=== PATIENT | male | born 1945 | race Caucasian/White ===

== ENCOUNTER → 2016-04-21 | Outpatient (REF) | payer OTHER ==
[~2016-04-21] MED LIST: /ESOM40CA; /GLIM4TA; ACET65TA OR; ALLO300T PO; ALPR0.5T3 PO; AMLO10TA PO; ASPI1TAB PO; ASPI325T; ASPI325T OR; ASPI81TA83 PO; ATEN50TA2; ATEN50TA2 OR; ATOR1TAB19 PO; ATOR40TA PO; CARV12.5 PO; CARV6.25 PO; CEPH250S OR; COLA100C2; COLA100C2 PO; COLCRYS PO; CYCL10TA PO; DIOV160T5 OR; DIOV320T PO; DIOV80TA; DIOV80TA PO; DOCU100C PO; FLEXERIL; FLEXERIL PO; GLIM1TAB PO; GLIM4TAB PO; HYDR-4266 PO; IMDU30TA PO; INSULANT SC; K-TA10TA PO; LANTINJ4 SC; LANTUS INSULIN SC; LASI40TA; LASI40TA PO; LASI80TA PO; LEVO75TA2 PO; LEVO75TA34 PO; LIDO5DIS TOP; LIDO5DIS36 TD; LIDODERM PATCH; LIPI20TA PO; MINO10TAB PO; MINO25TA PO; MINOXIDIL; MINOXIDIL PO; MULTIVIT PO; MYLASUS2 PO; NITR0.4S SL; NITR4TASL SL; NOVOINJ3 SC; NOVOLOG INSULIN SC; OMEP20CA3 PO; OMEP20TA7 OR; PERC5TAB8 OR; PLAV75TA2 PO; PLAV75TA38 PO; POTA10CA2; PRIL20CA PO; SIMV20TA2 OR; SYNT75TA; THERGRAN; TORS20TA2 PO; TUMS500C OR; TYLE325T5 PO; VITMTA PO; XALA0.002 OU; XALATAN OU; XANA0.5T; XANA0.5T PO; ZARO2.5T PO; ZAROXOLYN; ZOCO20TA; ZYLO300T4 PO
[2016-04-22 14:04] LABS: FREE T4 0.96 NG/DL (0.76-1.46)
== END ==
LOC: M LAB REF 12:48
PROVIDERS: ATTEND Internal Medicine Nephrology
DX: E03.9 Hypothyroidism, unspecified (principal)

== ENCOUNTER 2016-06-23 17:21 | Emergency (ER) | payer OTHER ==
[~2016-06-23] VITALS: Ht 185.4 cm; Wt 90.7 kg
[~2016-06-23 17:21] MED LIST changes: +MYLASUS16 PO; -MYLASUS2 PO
[2016-06-23] MEDS ORDERED: CINA30TA PO (17:40)
[2016-06-23] MEDS ORDERED: DRIS50002 PO (17:40)
[2016-06-23] MEDS ORDERED: ALLO10TA PO (17:40)
[2016-06-23] MEDS ORDERED: ISOS10TAB PO (17:40)
[2016-06-23] MEDS ORDERED: POTA10CA PO (17:40)
[2016-06-23] MEDS ORDERED: CLINDAMYCIN 150 MG CAP PO ONE (20:15)
[2016-06-23] MEDS ORDERED: traMADol 50 MG TAB (BULK 4 TAB ED) PO ONE (20:15)
[2016-06-23] MEDS ORDERED: predniSONE 20 MG TAB PO ONE (20:15)
[2016-06-23] MEDS ORDERED: CLEO150C PO (20:18)
[2016-06-23] MEDS ORDERED: PRED20TA PO (20:19)
[2016-06-23] MEDS ORDERED: NAPR250T45 PO (20:19)
--- NOTE | 2016-06-23 21:30 | REPUSA ---
Clinical history: Pain, swelling. Findings: The left common femoral, superficial femoral, popliteal, and other deep venous structures c ompress normally and demonstrate normal color Doppler flow. Normal venous waveforms with augmentation are seen. Imaging of the palpable abnormality in the anterior soft tissues does not demonstrate any gross abnormality. Impression: No evidence of deep vein thrombosis in the left femoral popliteal venous system.
[2016-06-23 21:36] VITALS: BP 136/71
== END 2016-06-23 21:39 | disposition home or self-care (01) ==
LOC: M ED 19:39
DX: I80.02 Phlebitis and thrombophlebitis of superficial vessels of left lower extremity (principal); L03.116 Cellulitis of left lower limb

== ENCOUNTER 2016-06-30 10:50 | Inpatient (IN) | payer OTHER ==
[~2016-06-30] VITALS: Ht 182.9 cm; Wt 93.0 kg
[2016-06-30] MEDS: CINACALCET 30 MG TAB (SENSIPAR) PO SCH (09:00)
[~2016-06-30 10:50] MED LIST changes: +ALLO10TA PO; +CINA30TA PO; +CLEO150C PO; +DRIS50002 PO; +ISOS10TAB PO; +NAPR250T45 PO; +POTA10CA PO; +PRED20TA PO
--- NOTE | 2016-06-30 11:37 | REP ---
CT HEAD WITHOUT CONTRAST: HISTORY: Infarction. COMPARISON: 08/01/2013. An area of decreased attentuation is present in the right thalamus. This represents an old lacunar infarction. Areas of decreased attentuation are present in the periventricular and subcortical white matter. This represents small vessel ischemic disease. There is no intraparenchymal hemorrhage, mass, or midline shift. The ventricular system and cortical sulci as well as subarachnoid space and posterior fossa are dilated consistent with mild volume loss. There is no extracerebral collection. The visualized sinuses are clear. IMPRESSION: 1. Old right thalamic lacunar infarction. 2. Small vessel ischemic disease. 3. Mild volume loss. Signed by Markel Waller MD 06/30/2016 11:43 A
--- NOTE | 2016-06-30 11:41 | REP ---
Chest one-view HISTORY: Infarction Comparison: 04/27/2014 The lungs are clear. The heart is upper limits of normal in size. The pulmonary vasculature is normal in appearance. Impression: No acute disease. Signed by Markel Waller MD 06/30/2016 11:32 A
[2016-06-30 11:49] LABS: BASO % 0.6 % (0.0-1.0); EOS # 0.3 K/mm3 (0.0-0.50); LARGE UNSTAINED CELL # 0.1 K/mm3 (0.0-0.4); LARGE UNSTAINED CELL % 1.4 % (0.0-4.0); LYMPH # 2.1 K/mm3 (1.5-4.5); MEAN CORPUSCULAR HGB CONC 33.4 g/dl (32.0-36.5); MEAN CORPUSCULAR VOLUME 89.6 fl (80.0-96.0); MONO # 0.5 K/mm3 (0.0-0.8); MONO % 5.9 % (0.0-5.0); NEUTROPHILS # 5.2 K/mm3 (1.8-7.7); NEUTROPHILS % 64.1 % (36.0-66.0); PLATELET COUNT, AUTOMATED 163 k/mm3 (150-450); RED CELL DISTRIBUTION WIDTH 15.4 % (11.5-14.5); WHITE BLOOD COUNT 8.2 K/mm3 (4.0-10.0)
[2016-06-30 12:01] LABS: INR 1.01
[2016-06-30 12:13] LABS: ERYTHROCYTE SEDIMENTATION RATE 19 mm/hr (0-20)
[2016-06-30 12:18] LABS: ANION GAP 10 MEQ/L (8-16); BLOOD UREA NITROGEN 77 MG/DL (7-18); CALCIUM LEVEL 10.1 MG/DL (8.8-10.2); CARBON DIOXIDE LEVEL 25 MEQ/L (21-32); CHLORIDE LEVEL 106 MEQ/L (98-107); GLOMERULAR FILTRATION RATE 37.2 (>42); GLUCOSE, FASTING 109 MG/DL (83-110); POTASSIUM SERUM 3.7 MEQ/L (3.5-5.1); SODIUM LEVEL 141 MEQ/L (136-145)
[2016-06-30] MEDS ORDERED: ACETAMINOPHEN TAB 650MG DOSE (2X325MG) PO ONE (13:00)
[2016-06-30] MEDS ORDERED: CLIN1CAP5 PO (14:13)
[2016-06-30] MEDS ORDERED: ZYLO300T4 PO (14:13)
[2016-06-30] MEDS ORDERED: CARV6.25 PO (14:36)
[2016-06-30] MEDS ORDERED: HYDR25TAB PO (14:37)
[2016-06-30] MEDS ORDERED: GLUCAGON FOR INJ 1 MG VIAL (J1610) SC PRN (15:15)
[2016-06-30] MEDS ORDERED: GLUCOSE 4 GM CHEW TABLET PO PRN (15:15)
[2016-06-30] MEDS ORDERED: DEXTROSE 50% 50 ML SYRINGE IV PRN (15:15)
--- NOTE | 2016-06-30 15:16 | REP ---
MRI BRAIN WITHOUT CONTRAST: HISTORY: Left side weakness. COMPARISON: CT 06/30/2016 An area of increased signal intensity on T2-weighted images is present in the right thalamus. This represents an old lacunar infarction. Areas of increased signal intensity on T2-weighted images are present in the periventricular and subcortical white matter. This represents small vessel ischemic disease. There is no intraparenchymal hemorrhage, acute infarct, mass or midline shift.The ventricular system and cortical sulci as well as subarachnoid space in the posterior fossa are dilated consistent with mild volume loss. There is no extracerebral collection. The sinuses are clear. IMPRESSION: 1. Old right thalamic lacunar infarction. 2. Small vessel ischemic disease. 3. Mild volume loss. Signed by Markel Waller MD 06/30/2016 03:17 P
[2016-06-30] MEDS ORDERED: hydrOXYzine 10 MG TAB PO ONE (15:30)
--- NOTE | 2016-06-30 15:58 | REP ---
MRA BRAIN WITHOUT CONTRAST: HISTORY: Left weakness. 3D [id number] MR angiography was performed at the level of the [place]. There is no aneurysm or arteriovenous malformation. Mild atherosclerotic disease involves the cavernous and supraclinoid internal arteries, middle cerebral artery trifurcations , proximal basilar artery and left posterior cerebral artery. The major intracranial vessels are patent. The left vertebral artery is dominant. IMPRESSION: 1. There is no aneurysm or arteriovenous malformation. 2. Atherosclerotic disease as described above. Signed by Markel Waller MD 06/30/2016 04:07 P
[2016-06-30] MEDS ORDERED: NORCO, ANEXSIA 5/325MG TABLET (HYDROcodone/ACETAMINOPHEN) As Ordered ONE (16:35)
[2016-06-30 17:03] VITALS: BP 133/98
[2016-06-30] MEDS: HumaLOG INSULIN (NovoLOG) PER UNIT SC SCH ×2 (17:49→21:00)
--- NOTE | 2016-06-30 20:17 | ECGEPIP ---
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
[2016-06-30 20:30] VITALS: BP 165/77
--- NOTE | 2016-06-30 20:46 | HPE ---
DATE OF ADMISSION: 06/30/2016 PRIMARY CARE PROVIDER: Sebastian Gaitan CHIEF COMPLAINT: Dizziness. HISTORY OF PRESENT ILLNESS: Mr. Willson is a 71-year-old male with a past medical history of atrial flutter, status post radiofrequency ablation, type 2 diabetes, myocardial infarction status post coronary artery bypass graft (CABG), who presented to the emergency department today with complaint of an episode of near syncope at his doctor's office. Per patient, he was recently diagnosed with cellulitis of his left lower extremity and was treated with clindamycin, steroids. During his routine followup visit today, after walking back from the bathroom in their office, he started experiencing lightheadedness, dizziness , and essentially "flopped down in the chair." At that time, an EKG was done and showed the patient to be in atrial fibrillation with rate of 111. Fingerstick glucose was checked and was reportedly normal. The patient himself states that since his infection to his left leg, he has not been feeling well in terms of energy, "feels like there is an infection inside of me." No nausea, vomiting, diarrhea, constipation, chest pain, shortness of breath. Had one episode of palpitations yesterday when he got out of bed, episode lasted for 15 minutes. He immediately sat down and this resolved on its own. He continued to go on about his day until the event that led him to the hospital today. No similar episodes in the past. He is not aware of any abnormal rhythm problem with his heart prior to this episode. No syncopal episodes. PAST MEDICAL HISTORY: 1. Remote history of atrial flutter, status post radiofrequency ablation. 2. Chronic kidney disease stage 3B. 3. Diastolic heart failure. 4. Systemic hypertension. 5. Coronary artery disease. 6. Old myocardial infarction. 7. Obesity. 8. First degree AV block. 9. Abnormal EKG. 10. Type 2 diabetes. 11. Gout. 12. Hypercholesterolemia. 13. Left kidney cancer. 14. Osteoarthritis. 15. Cervical spinal stenosis with intermittent musculoskeletal pain. PAST SURGICAL HISTORY: 1. Coronary artery bypass graft (CABG) in 2006. 2. Left nephrectomy. 3. Cholecystectomy. 4. Tonsillectomy. 5. Appendectomy. SOCIAL HISTORY: The patient is a nonsmoker. No alcohol. No drug use. Currently lives at home. 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 No history of asbestos or tuberculosis that he is aware of. No pets. ALLERGIES: CONTRAST MEDIA, red leg. PENICILLIN, itchiness and rash. ERYTHROMYCIN, SULFA and TETRACYCLINE, reaction unknown. HOME MEDICATIONS: - allopurinol 300 mg by mouth daily - Mylanta 20 mL as needed for heartburn - Norvasc 10 mg daily - aspirin 81 mg daily - Lipitor 40 mg at night - Coreg 6.25 mg by mouth twice a day - Sensipar 30 mg twice a week - Clindamycin 150 mg four times a day - Plavix 75 mg by mouth daily - Colace 100 mg by mouth twice a day as needed - Lasix 80 mg by mouth twice a day - glimepiride 4 mg by mouth twice a day - hydrochlorothiazide 12.5 mg daily - NovoLog insulin sliding scale - Lantus 50 units subcutaneous at night - isosorbide mononitrate 10 mg by mouth twice a day - latanoprost 0.005% both eyes at night - Synthroid 75 mcg by mouth daily - Lidoderm patch 5% daily - multivitamin - nitroglycerin 0.4 mg as needed - omeprazole 20 mg by mouth daily - potassium chloride 20 mEq by mouth twice a day - valsartan 320 mg at night - vitamin D 50 units at night FAMILY HISTORY: Father from stomach cancer. Mother with history of thyroid disease and in her 90s of old age. REVIEW OF SYSTEMS: CONSTITUTIONAL: Positive for weakness, lightheadedness, as mentioned above. HEENT: Denies headaches, difficulty with speech and swallow. No epistaxis. EYES: No blurry vision or diplopia. CARDIOVASCULAR: Denies chest pain, paroxysmal nocturnal dyspnea, pillow orthopnea, lower extremity edema. The rest as above. PULMONARY: Denies shortness of breath, productive cough, hemoptysis. GASTROINTESTINAL: Denies hematochezia, melena, or hematemesis, nausea, vomiting, diarrhea, constipation. GENITOURINARY: No dysuria, frequency or hematuria. History of left renal cancer status post surgery. MUSCULOSKELETAL: No bone, muscle, joint pain. NEUROLOGICAL: No paralysis, paresthesia, headaches. ENDOCRINE: Positive for hypothyroidism and diabetes. LYMPHATICS: No lumps, bumps, or swelling anywhere in neck, axilla, or groin. HEMATOLOGY: No abnormal bleeding or bruising. PHYSICAL EXAMINATION: VITALS: Blood pressure 133/98, heart rate 73, temperature 96.7, respiration rate 20, pulse oximetry 99% on room air. GENERAL: Patient is lying in bed comfortable in no acute distress. Alert, awake, oriented times three. Pleasant, cooperative. Son at the bedside. HEENT: Normocephalic, atraumatic. Moist oral mucosa. Upper denture in place. Lower portion with multiple missing teeth. NECK: Supple, trachea midline, no palpable lymphadenopathy, no neck vein distention. CHEST: Symmetric chest rise, no accessory muscle use. Breath sounds clear to auscultation bilaterally. HEART: Irregular but not tachycardic. Rate variable. S1, S2 present. ABDOMEN: Soft, nontender, nondistended, bowel sounds present, no guarding, no rebound. EXTREMITY: Pedal pulses present bilaterally, no pedal edema. INTEGUMENTARY: Area of erythema is not visible on examination. PSYCHIATRIC: Cooperative. LABORATORY DATA: WBC 8.2, hemoglobin 12.3, hematocrit 36.7, platelets 163. Sodium 141, potassium 3.7, chloride 106, carbon dioxide 25, BUN 77, creatinine 1.9, glucose 106, troponin first set is negative. CT of the head showed old right thalamic lacunar infarct with small vessel ischemic changes, mild volume loss. Chest x-ray showed no acute disease. MRI of the brain showed no aneurysm or AV malformation. MRA of the brain with old right thalamic lacunar infarct. EKG showed atrial fibrillation with ventricular rate of 89. QTC 428. IMPRESSION/PLAN: Mr. Willson is a 71-year-old male with history of atrial flutter, status post radiofrequency ablation many years ago, who presented with dizziness. 1. New onset atrial fibrillation. Because of his high [id number] score, the patient will benefit from anticoagulation. We will start him on Eliquis and continue Coreg 6.25 mg by mouth twice a day. The case was briefly discussed with his outpatient automatic chief. 2. Dizziness with left sided weakness. So far imaging is unrevealing for acute changes. The patient will be monitored closely in the progressive care unit (PCU). Continue antihypertensive regimen with exception of hydrochlorothiazide to allow more room for adjusting of his Coreg. We will check orthostatic blood pressure. 3. Chest pain. Pain was not reproducible on physical examination. EKG was unrevealing. Continue to monitor. Trend cardiac markers. 4. Left lower extremity cellulitis. Examination showed resolved cellulitis. We will repeat blood culture. 5. History of coronary artery disease, status post stents and coronary artery bypass graft (CABG). Continue aspirin, Plavix, Lipitor, and Coreg. 6. Gastroesophageal reflux disease (GERD). Continue 20 mg of omeprazole. 7. Hypothyroidism. Continue levothyroxine. 8. Deep vein thrombosis (DVT) prophylaxis. Sequential compression device (SCD) and thromboembolic compression stockings (TEDS). Will be on Eliquis for atrial fibrillation. The patient will require prior authorization for obtaining Eliquis. Have requested PFS assistance. DISPOSITION: Due to patient's condition, we expect his stay to be greater than 2 midnights. My preceptor for this patient encounter was Dr. Linares. The preceptor was physically present in the building during the encounter and was fully available. As needed, all aspects of the patient interview, examination, medical decision making process, and medical care plan development were reviewed and approved by the preceptor. The preceptor is aware and concurs with the plan as stated in the body of this note and will attest to such by his/her cosignature. KAIDEN
[2016-06-30 21:30] VITALS: BP_SYST 148; BP_SYST 155; BP_SYST 165; BP_DIAS 68; BP_DIAS 77; BP_DIAS 86
[2016-06-30] MEDS: APIXABAN 5 MG TAB (ELIQUIS) PO SCH (22:23)
[2016-06-30] MEDS: FUROSEMIDE 80 MG TAB PO SCH (22:24)
[2016-06-30] MEDS: CEFDINIR 300 MG CAP (OMNICEF) PO SCH (22:24)
[2016-06-30] MEDS: VALSARTAN 80 MG TAB (DIOVAN) PO SCH (22:24)
[2016-06-30] MEDS: ATORVASTATIN 20 MG TAB PO SCH (22:24)
[2016-06-30] MEDS: CARVedilol 6.25 MG TAB PO SCH (22:25)
[2016-06-30] MEDS: ISOSORBIDE MONONITRATE 10MG TABLET PO SCH (23:25)
[2016-06-30] MEDS: LATANOPROST 0.005% OPHTH SOLN 2.5 ML OU SCH (23:25)
[2016-07-01] VITALS: BP 131/69
[2016-07-01] MEDS: ACETAMINOPHEN TAB 650MG DOSE (2X325MG) PO PRN ×3 (00:09→20:24)
[2016-07-01 04:00] VITALS: BP 119/58
[2016-07-01 04:54] LABS: MEAN CORPUSCULAR HEMOGLOBIN 28.9 pg (27.0-33.0); MEAN CORPUSCULAR HGB CONC 32.4 g/dl (32.0-36.5); MEAN CORPUSCULAR VOLUME 89.4 fl (80.0-96.0); RED CELL DISTRIBUTION WIDTH 15.4 % (11.5-14.5); WHITE BLOOD COUNT 6.5 K/mm3 (4.0-10.0)
[2016-07-01] MEDS: LEVOTHYROXINE 0.075 MG TAB (75 MCG) PO SCH (05:09)
[2016-07-01 05:18] LABS: ALBUMIN 3.9 GM/DL (3.2-5.2); ANION GAP 8 MEQ/L (8-16); BLOOD UREA NITROGEN 75 MG/DL (7-18); CALCIUM LEVEL 9.5 MG/DL (8.8-10.2); CARBON DIOXIDE LEVEL 29 MEQ/L (21-32); CHLORIDE LEVEL 105 MEQ/L (98-107); CHOLESTEROL LEVEL 126 MG/DL (<200); CREATININE FOR GFR 2.13 MG/DL (0.70-1.30); GLOMERULAR FILTRATION RATE 32.6 (>42); GLUCOSE, FASTING 105 MG/DL (83-110); PHOSPHORUS LEVEL 3.8 MG/DL (2.5-4.9); POTASSIUM SERUM 4.2 MEQ/L (3.5-5.1); SODIUM LEVEL 142 MEQ/L (136-145); TRIGLYCERIDES LEVEL 160 MG/DL (<150)
[2016-07-01 08:00] VITALS: BP 156/68
[2016-07-01] MEDS: HumaLOG INSULIN (NovoLOG) PER UNIT SC SCH ×4 (08:22→20:35)
[2016-07-01] MEDS: APIXABAN 5 MG TAB (ELIQUIS) PO SCH (08:23)
[2016-07-01] MEDS: OMEPRAZOLE 20 MG CAP PO SCH (08:23)
[2016-07-01] MEDS: ALLOPURINOL 300 MG TAB PO SCH (08:23)
[2016-07-01] MEDS: CEFDINIR 300 MG CAP (OMNICEF) PO SCH ×2 (08:23→20:20)
[2016-07-01] MEDS: FUROSEMIDE 80 MG TAB PO SCH ×2 (08:23→16:06)
[2016-07-01] MEDS: ASPIRIN 81 MG ENTERIC TAB PO SCH (08:23)
[2016-07-01] MEDS: ISOSORBIDE MONONITRATE 10MG TABLET PO SCH ×2 (08:23→16:06)
[2016-07-01] MEDS: amLODIPine 10 MG TAB PO SCH (08:24)
[2016-07-01] MEDS: CARVedilol 6.25 MG TAB PO SCH ×2 (08:24→20:21)
[2016-07-01] MEDS ORDERED: CLOPIDOGREL 75 MG TAB PO SCH (09:00)
--- NOTE | 2016-07-01 09:08 | ECGEPIP ---
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
[2016-07-01 11:00] VITALS: BP_SYST 152; BP_SYST 174; BP_SYST 176; BP_DIAS 62; BP_DIAS 72; BP_DIAS 79
[2016-07-01] MEDS ORDERED: ELIQ5TAB PO (11:59)
--- NOTE | 2016-07-01 13:09 | IPNPDOC ---
Subjective Date Seen The patient was seen on 07/01/16. Subjective Chief Complaint/HPI The patient is a 71-year-old male admitted with a reason for visit of TIA. Events since last encounter complains of dizziness on standing up and walking, still feels weak , confusion has resolved, continues to be in sinus rhythm., no chest pain or shortness of breath , no abdominal pain or nausea or diarrhea, was having nausea and diarrhea while he was taking the clindamycin for nodule on the leg . THose have resolved after stopping the antibiotic. But says has not been eating at all forthe few days that he was taking the antibiotics. Objective Physical Examination General Exam: Positive: Alert, Cooperative, No Acute Distress Eye Exam: Positive: Conjunctiva & lids normal, EOMI, PERRLA, Negative: Sclera icteric ENT Exam: Positive: Atraumatic, Mucous membr. moist/pink, Pharynx Normal Neck Exam: Positive: Supple, Negative: JVD, thyromegaly Chest Exam: Positive: Clear to auscultation, Normal air movement Heart Exam: Positive: Normal S1, Normal S2, Rate Normal, Regular Rhythm, Negative: Murmurs, Rubs Telemetry: Positive: No significant arrhythmia Abdomen Exam: Positive: Normal bowel sounds, Soft, Negative: Hepatospenomegaly, Tenderness Extremity Exam: Positive: Normal pulses, Negative: Clubbing, Cyanosis, Edema Skin Exam: Positive: Lesion (left leg reddish tender nodular swelling), Nl turgor and temperature, Negative: Breakdown Assessment /Plan Problems (1) Neurocardiogenic pre-syncope Status: Acute Problem Text: possibly related to paroxysmal a fib , orthostatic hypotension and mild dehydration due to diarrhea at home , poor oral intake while he was on the clinadycin and prednisone. orthostatics BPs are positive. (2) Paroxysmal a-fib Status: Resolved Problem Text: started the patient on anticoagulation. (3) TIA (transient ischemic attack) Status: Resolved Problem Text: questionable TIA looks more like presyncope due to orthostatic hypotension and paroxysmal a fib. (4) Cellulitis of left lower extremity Status: Acute Response to Treatment: Stable Problem Text: took 6 days of clindamycin without any change does not look inflamed at this point. Looks like a subcutaneous hematoma which is organized (5) Gout Status: Chronic (6) CAD (coronary artery disease) Status: Chronic (7) Hyperlipidemia Status: Chronic (8) Hypothyroidism Status: Chronic (9) Osteoarthritis Status: Chronic (10) GERD (gastroesophageal reflux disease) Status: Chronic (11) Chronic kidney disease (CKD), stage III (moderate) Status: Chronic Response to Treatment: Stable (12) S/p nephrectomy Status: Chronic (13) Adrenal nodule Status: Chronic (14) Cervical spinal stenosis Status: Chronic (15) Hypertension Status: Chronic (16) Diabetes Status: Chronic Plan/VTE VTE Prophylaxis Ordered?: Yes VS, I&O, 24H, Fishbone Vital Signs/I&O Vital Signs Date Time Temp Pulse Resp B/P Pulse Ox O2 Delivery O2 Flow Rate FiO2 07/01/16 11:00 60 176/79 69 174/72 73 152/62 07/01/16 11:00 96.0 18 99 Room Air I&O- Last 24 Hours up to 6 AM 07/01/16 06:00 Intake Total 920 ml Output Total 2075 ml Balance -1155 ml Laboratory Data 24H LABS Laboratory Tests 2 06/30/16 13:28: Bedside Glucose (Misc Panel) 77L 06/30/16 17:19: Creatine Kinase MB 1.3, Creatine Kinase MB Relative Index 1.30, Total Creatine Kinase 100, Troponin I < 0.02 06/30/16 17:39: Bedside Glucose (Misc Panel) 136H 06/30/16 22:07: Bedside Glucose (Misc Panel) 131H 07/01/16 04:45: Albumin 3.9, Blood Urea Nitrogen 75H, Creatinine 2.13H, Sodium Level 142, Potassium Level 4.2, Chloride Level 105, Carbon Dioxide Level 29, Anion Gap 8, Calcium Level 9.5, Cholesterol Level 126, Cholesterol/HDL Ratio 3.705, Creatine Kinase MB 1.1, Creatine Kinase MB Relative Index 1.26, Estimated Mean Plasma Glucose 163H, Glomerular Filtration Rate 32.6L, HDL Cholesterol 34L, Hemoglobin A1c 7.3H, LDL Cholesterol 60.0, Non-HDL Cholesterol (LDL + VLDL) 92, Phosphorus Level 3.8, Total Creatine Kinase 87, Triglycerides Level 160H, Troponin I < 0.02 CBC/BMP Laboratory Tests 07/01/16 04:45 Anion Gap 8, Red Blood Count 4.30, Mean Corpuscular Volume 89.4, Mean Corpuscular Hemoglobin 28.9, Mean Corpuscular Hemoglobin Concent 32.4, Red Cell Distribution Width 15.4 H Microbiology Microbiology 06/30/16 Blood Culture, Received Pending 06/30/16 Blood Culture, Received Pending LINDY MA MD Jul 01, 2016 13:09
[2016-07-01] MEDS: WARFARIN SOD 5 MG TAB PO SCH (16:06)
--- NOTE | 2016-07-01 17:00 | ECHO ---
DATE OF PROCEDURE: 07/01/2016 REFERRING PHYSICIAN: Dr. Caron Rodrigues INDICATION: Abnormal ECG, paroxysmal atrial fibrillation. HEIGHT: 183 cm WEIGHT: 93 kg 2D MEASUREMENTS: Left atrium: 4.3 cm Aortic root: 3.1 cm Ventricular septum: 1.29 cm Posterior wall 1.32 cm Left ventricle diastole: 4.6 cm Inferior vena cava: 1.7 cm DOPPLER MEASUREMENTS: Trace aortic regurgitation. Aortic valve velocity: 141 cm/s LVOT velocity: 88.1 cm/s LVOT VTI: 20.3 cm Very mild mitral regurgitation. Mitral E velocity: 65.2 cm/s Mitral A velocity: 56.7 cm/s Mitral deceleration time: 268 ms Very mild pulmonic regurgitation. Pulmonary artery systolic pressure 22 mmHg. MITRAL ANNULAR TISSUE DOPPLER: E prime septal: 6.0 cm/s E prime lateral: 8.2 cm/s DESCRIPTION: Rhythm appeared to be sinus rhythm with a first degree arteriovenous (AV) block. This is a moderately technically difficult echocardiogram. No pericardial effusion. This is a 2D, M-mode, color flow Doppler, and pulsed wave Doppler examination and included mitral annular tissue Doppler. CONCLUSIONS: 1. Mild concentric left ventricle hypertrophy. Normal left ventricle (LV) wall motion (no regional wall motion abnormalities). Normal LV systolic function. Left ventricular ejection fraction (LVEF) 65% by visual estimate. Grade 2 LV diastolic dysfunction (pseudo normal filling pattern). 2. Mild left atrial dilatation. 3. Mild aortic valve sclerosis of a three-cuspid aortic valve. Trace aortic regurgitation. 4. Mild mitral annular calcification. Very mild mitral regurgitation. 5. Moderately technically difficult echocardiogram.
[2016-07-01 20:00] VITALS: BP 123/60; PULSE 70
[2016-07-01] MEDS: ATORVASTATIN 20 MG TAB PO SCH (20:20)
[2016-07-01] MEDS: LATANOPROST 0.005% OPHTH SOLN 2.5 ML OU SCH (20:23)
[2016-07-01] MEDS: VALSARTAN 80 MG TAB (DIOVAN) PO SCH (20:23)
[2016-07-01] MEDS ORDERED: SLF 3 ML SYR IV PRN (22:30)
[2016-07-01 23:59] VITALS: BP 132/63
[2016-07-02] VITALS (7 sets, daily range): BP systolic 123–152; BP diastolic 69–80; PULSE 87–89
[2016-07-02] MEDS: LEVOTHYROXINE 0.075 MG TAB (75 MCG) PO SCH (05:33)
[2016-07-02] MEDS: SLF 3 ML SYR IV SCH ×3 (05:34→22:58)
[2016-07-02] MEDS: ACETAMINOPHEN TAB 650MG DOSE (2X325MG) PO PRN ×3 (05:35→20:40)
[2016-07-02 05:48] LABS: MEAN CORPUSCULAR HEMOGLOBIN 29.9 pg (27.0-33.0); MEAN CORPUSCULAR HGB CONC 33.2 g/dl (32.0-36.5); MEAN CORPUSCULAR VOLUME 90.2 fl (80.0-96.0); RED CELL DISTRIBUTION WIDTH 15.2 % (11.5-14.5); WHITE BLOOD COUNT 6.7 K/mm3 (4.0-10.0)
[2016-07-02 05:56] LABS: ALBUMIN 3.2 GM/DL (3.2-5.2); CREATININE FOR GFR 2.2 MG/DL (0.70-1.30); GLOMERULAR FILTRATION RATE 31.4 (>42); PHOSPHORUS LEVEL 3.9 MG/DL (2.5-4.9); POTASSIUM SERUM 3.8 MEQ/L (3.5-5.1)
[2016-07-02] MEDS ORDERED: oxyCODONE 5MG TAB PO ONE (07:15)
[2016-07-02] MEDS: HumaLOG INSULIN (NovoLOG) PER UNIT SC SCH ×4 (07:38→21:00)
[2016-07-02] MEDS: FUROSEMIDE 80 MG TAB PO SCH ×2 (09:00→17:09)
[2016-07-02] MEDS: amLODIPine 10 MG TAB PO SCH (10:01)
[2016-07-02] MEDS: OMEPRAZOLE 20 MG CAP PO SCH (10:01)
[2016-07-02] MEDS: ISOSORBIDE MONONITRATE 10MG TABLET PO SCH ×2 (10:01→15:43)
[2016-07-02] MEDS: CARVedilol 6.25 MG TAB PO SCH ×2 (10:02→20:28)
[2016-07-02] MEDS: ASPIRIN 81 MG ENTERIC TAB PO SCH (10:02)
[2016-07-02] MEDS: CEFDINIR 300 MG CAP (OMNICEF) PO SCH ×2 (10:02→20:28)
[2016-07-02] MEDS: ALLOPURINOL 300 MG TAB PO SCH (10:02)
--- NOTE | 2016-07-02 12:42 | IPNPDOC ---
Subjective Date Seen The patient was seen on 07/02/16. Subjective Chief Complaint/HPI The patient is a 71-year-old male admitted with a reason for visit of TIA. Events since last encounter dizziness and lightheadedness better, weakness has improved, remains in sinus rhythm , patient will not be able to afford eliquis so started on Coumadin. Objective Physical Examination General Exam: Positive: Alert, Cooperative, No Acute Distress Eye Exam: Positive: Conjunctiva & lids normal, EOMI, PERRLA, Negative: Sclera icteric ENT Exam: Positive: Atraumatic, Mucous membr. moist/pink, Pharynx Normal Neck Exam: Positive: Supple, Negative: JVD, thyromegaly Chest Exam: Positive: Clear to auscultation, Normal air movement Heart Exam: Positive: Normal S1, Normal S2, Rate Normal, Regular Rhythm, Negative: Murmurs, Rubs Telemetry: Positive: No significant arrhythmia Abdomen Exam: Positive: Normal bowel sounds, Soft, Negative: Hepatospenomegaly, Tenderness Extremity Exam: Positive: Normal pulses, Negative: Clubbing, Cyanosis, Edema Skin Exam: Positive: Lesion (left leg reddish tender nodular swelling), Nl turgor and temperature, Negative: Breakdown Assessment /Plan Problems (1) Neurocardiogenic pre-syncope Status: Acute Problem Text: possibly related to paroxysmal a fib , orthostatic hypotension and mild dehydration due to diarrhea at home , poor oral intake while he was on the clinadycin and prednisone. orthostatics BPs are positive. (2) Paroxysmal a-fib Status: Resolved Problem Text: started on coumadin , could not afford eliquis (3) TIA (transient ischemic attack) Status: Resolved Problem Text: questionable TIA looks more like presyncope due to orthostatic hypotension and paroxysmal a fib. (4) Cellulitis of left lower extremity Status: Acute Response to Treatment: Stable Problem Text: took 6 days of clindamycin without any change does not look inflamed at this point. currently on cefdinir. Looks like a subcutaneous hematoma which is organized (5) Gout Status: Chronic (6) CAD (coronary artery disease) Status: Chronic (7) Hyperlipidemia Status: Chronic (8) Hypothyroidism Status: Chronic (9) Osteoarthritis Status: Chronic (10) GERD (gastroesophageal reflux disease) Status: Chronic (11) Chronic kidney disease (CKD), stage III (moderate) Status: Chronic Response to Treatment: Stable Problem Text: baseline creatinine around 1.8 to 2.0 (12) S/p nephrectomy Status: Chronic (13) Adrenal nodule Status: Chronic (14) Cervical spinal stenosis Status: Chronic (15) Hypertension Status: Chronic (16) Diabetes Status: Chronic Plan/VTE VTE Prophylaxis Ordered?: Yes VS, I&O, 24H, Fishbone Vital Signs/I&O Vital Signs Date Time Temp Pulse Resp B/P Pulse Ox O2 Delivery O2 Flow Rate FiO2 07/02/16 11:44 61 152/80 60 150/71 65 146/71 07/02/16 08:30 20 07/02/16 08:18 98.4 99 Room Air I&O- Last 24 Hours up to 6 AM 07/02/16 06:00 Intake Total 1700 ml Output Total 2800 ml Balance -1100 ml Laboratory Data 24H LABS Laboratory Tests 2 07/01/16 16:45: Bedside Glucose (Misc Panel) 135H 07/01/16 20:30: Bedside Glucose (Misc Panel) 264H 07/02/16 05:15: Albumin 3.2, Blood Urea Nitrogen 78H, Creatinine 2.20H, Sodium Level 139, Potassium Level 3.8, Chloride Level 104, Carbon Dioxide Level 26, Anion Gap 9, Calcium Level 9.0, Glomerular Filtration Rate 31.4L, Phosphorus Level 3.9 07/02/16 11:42: Bedside Glucose (Misc Panel) 133H CBC/BMP Laboratory Tests 07/02/16 05:15 Anion Gap 9, Red Blood Count 3.66 L, Mean Corpuscular Volume 90.2, Mean Corpuscular Hemoglobin 29.9, Mean Corpuscular Hemoglobin Concent 33.2, Red Cell Distribution Width 15.2 H Microbiology Microbiology 06/30/16 Blood Culture - Preliminary, Resulted No growth after 24 hours . All specim... 06/30/16 Blood Culture - Preliminary, Resulted No growth after 24 hours . All specim... LINDY MA MD Jul 02, 2016 12:42
[2016-07-02] MEDS: WARFARIN SOD 5 MG TAB PO SCH (17:10)
--- NOTE | 2016-07-02 20:22 | REP ---
Duplex carotid sonography: History: Dizziness and lightheadedness. Findings: Antegrade flow was observed in both vertebral arteries. Right carotid: Right common carotid artery shows mild diffuse intimal thickening. There is mild mixed plaquing in the distal common carotid artery and proximal ICA on two-dimensional scanning. Color flow and spectral Doppler interrogation demonstrate normal waveforms and velocities in the ICA. Velocity chart: CCA PSV 86 cm/s ICA PSV 89 cm/s ICA EDV 28 cm/s ECA PSV 140 cm/s Right ICA/CCA ratio normal 1.0 Impression: 16-49% category narrowing in the right ICA by Doppler velocity criteria. Mildly elevated ECA systolic velocities. Left carotid: There is mixed plaquing in the distal CCA on the left side. Mixed plaquing is seen in the bulb and proximal ICA on the left. Color flow and spectral Doppler interrogation are unremarkable on the left. Velocity chart: CCA PSV 80 cm/s ICA PSV 81 cm/s ICA EDV 30 cm/s ECA PSV 113 cm/s Left ICA/CCA ratio normal 1.0. Impression: 16-49% category narrowing in the left ICA by Doppler velocity criteria. In comparison with prior carotid sonography from August 01, 2013, Doppler velocities have not increased in either ICA. Signed by Tod Chen MD 07/03/2016 07:55 A
[2016-07-02] MEDS: VALSARTAN 80 MG TAB (DIOVAN) PO SCH (20:28)
[2016-07-02] MEDS: ATORVASTATIN 20 MG TAB PO SCH (20:28)
[2016-07-02] MEDS: LATANOPROST 0.005% OPHTH SOLN 2.5 ML OU SCH (20:28)
[2016-07-03] MEDS: ONDANSETRON 4MG/2ML VIAL (J2405) IV PRN (03:51)
[2016-07-03] MEDS: ACETAMINOPHEN TAB 650MG DOSE (2X325MG) PO PRN (04:08)
[2016-07-03 04:45] VITALS: BP 151/70
[2016-07-03 05:35] LABS: MEAN CORPUSCULAR HEMOGLOBIN 29.5 pg (27.0-33.0); MEAN CORPUSCULAR HGB CONC 33.2 g/dl (32.0-36.5); MEAN CORPUSCULAR VOLUME 88.8 fl (80.0-96.0); RED CELL DISTRIBUTION WIDTH 15.1 % (11.5-14.5)
[2016-07-03] MEDS: SLF 3 ML SYR IV SCH ×3 (05:38→20:03)
[2016-07-03] MEDS: LEVOTHYROXINE 0.075 MG TAB (75 MCG) PO SCH (05:38)
[2016-07-03 05:41] LABS: INR 1.2
[2016-07-03 05:53] LABS: ALBUMIN 3.4 GM/DL (3.2-5.2); CALCIUM LEVEL 9.3 MG/DL (8.8-10.2); CREATININE FOR GFR 2.03 MG/DL (0.70-1.30); GLOMERULAR FILTRATION RATE 34.4 (>42); PHOSPHORUS LEVEL 3.8 MG/DL (2.5-4.9); POTASSIUM SERUM 4.2 MEQ/L (3.5-5.1)
[2016-07-03] MEDS: HumaLOG INSULIN (NovoLOG) PER UNIT SC SCH ×4 (07:50→21:42)
[2016-07-03] MEDS: SIMETHICONE 80 MG CHEW TAB PO SCH ×2 (07:50→20:02)
[2016-07-03] MEDS: ISOSORBIDE MONONITRATE 10MG TABLET PO SCH ×2 (07:52→17:13)
[2016-07-03] MEDS: ALLOPURINOL 300 MG TAB PO SCH (07:53)
[2016-07-03] MEDS: FUROSEMIDE 80 MG TAB PO SCH ×2 (07:53→17:13)
[2016-07-03] MEDS: ASPIRIN 81 MG ENTERIC TAB PO SCH (07:53)
[2016-07-03] MEDS: CEFDINIR 300 MG CAP (OMNICEF) PO SCH (07:53)
[2016-07-03] MEDS: OMEPRAZOLE 20 MG CAP PO SCH (07:54)
[2016-07-03] MEDS: amLODIPine 10 MG TAB PO SCH (07:54)
[2016-07-03] MEDS: CARVedilol 6.25 MG TAB PO SCH ×2 (07:54→20:02)
[2016-07-03 08:00] VITALS: BP 136/63
[2016-07-03 08:39] VITALS: BP_SYST 118; BP_SYST 128; BP_DIAS 58; BP_DIAS 60; BP_DIAS 63
[2016-07-03] MEDS ORDERED: MECLIZINE 12.5 MG TAB PO PRN (10:00)
--- NOTE | 2016-07-03 11:14 | IPNPDOC ---
Subjective Date Seen The patient was seen on 07/03/16. Subjective Chief Complaint/HPI The patient is a 71-year-old male admitted with a reason for visit of TIA. Events since last encounter continues to have intermittent dizziness with change of posture associated with headache sensation of heat and hot flushes. Mostly in the morning. no fever or chills, no chest pain or palpitation , no sob , no ear pain or fullness. Objective Physical Examination General Exam: Positive: Alert, Cooperative, No Acute Distress Eye Exam: Positive: Conjunctiva & lids normal, EOMI, PERRLA, Negative: Sclera icteric ENT Exam: Positive: Atraumatic, Mucous membr. moist/pink, Pharynx Normal Neck Exam: Positive: Supple, Negative: JVD, thyromegaly Chest Exam: Positive: Clear to auscultation, Normal air movement Heart Exam: Positive: Normal S1, Normal S2, Rate Normal, Regular Rhythm, Negative: Murmurs, Rubs Telemetry: Positive: No significant arrhythmia Abdomen Exam: Positive: Normal bowel sounds, Soft, Negative: Hepatospenomegaly, Tenderness Extremity Exam: Positive: Normal pulses, Negative: Clubbing, Cyanosis, Edema Skin Exam: Positive: Lesion (left leg reddish tender nodular swelling), Nl turgor and temperature, Negative: Breakdown Assessment /Plan Problems (1) Neurocardiogenic pre-syncope Status: Acute Response to Treatment: Improving Problem Text: possibly related to paroxysmal a fib , orthostatic hypotension and mild dehydration due to diarrhea at home , poor oral intake while he was on the clinadycin and prednisone. orthostatics BPs are negative today will evaluate for BPPV will start meclizine. (2) Paroxysmal a-fib Status: Resolved Problem Text: started on coumadin , could not afford eliquis (3) TIA (transient ischemic attack) Status: Resolved Problem Text: questionable TIA looks more like presyncope due to orthostatic hypotension and paroxysmal a fib. (4) Cellulitis of left lower extremity Status: Acute Response to Treatment: Stable Problem Text: took 6 days of clindamycin without any change does not look inflamed at this point. currently on cefdinir. Looks like a subcutaneous hematoma which is organized (5) Gout Status: Chronic (6) CAD (coronary artery disease) Status: Chronic (7) Hyperlipidemia Status: Chronic (8) Hypothyroidism Status: Chronic (9) Osteoarthritis Status: Chronic (10) GERD (gastroesophageal reflux disease) Status: Chronic (11) Chronic kidney disease (CKD), stage III (moderate) Status: Chronic Response to Treatment: Stable Problem Text: baseline creatinine around 1.8 to 2.0 (12) S/p nephrectomy Status: Chronic (13) Adrenal nodule Status: Chronic (14) Cervical spinal stenosis Status: Chronic (15) Hypertension Status: Chronic (16) Diabetes Status: Chronic Plan/VTE VTE Prophylaxis Ordered?: Yes VS, I&O, 24H, Fishbone Vital Signs/I&O Vital Signs Date Time Temp Pulse Resp B/P Pulse Ox O2 Delivery O2 Flow Rate FiO2 07/03/16 08:39 64 128/63 62 128/58 66 118/60 07/03/16 08:00 97.1 18 100 Room Air I&O- Last 24 Hours up to 6 AM 07/03/16 06:00 Intake Total 1348 ml Output Total 1375 ml Balance -27 ml Laboratory Data 24H LABS Laboratory Tests 2 07/02/16 11:42: Bedside Glucose (Misc Panel) 133H 07/02/16 15:53: Bedside Glucose (Misc Panel) 139H 07/02/16 20:32: Bedside Glucose (Misc Panel) 183H 07/03/16 05:15: Activated Partial Thromboplast Time 30.9, Albumin 3.4, Blood Urea Nitrogen 75H, Creatinine 2.03H, Sodium Level 140, Potassium Level 4.2, Chloride Level 105, Carbon Dioxide Level 26, Anion Gap 9, Calcium Level 9.3, Glomerular Filtration Rate 34.4L, Phosphorus Level 3.8, Prothromb Time International Ratio 1.20, Prothrombin Time 15.3H 07/03/16 09:03: Bedside Glucose (Misc Panel) 217H CBC/BMP Laboratory Tests 07/03/16 05:15 Anion Gap 9, Red Blood Count 3.62 L, Mean Corpuscular Volume 88.8, Mean Corpuscular Hemoglobin 29.5, Mean Corpuscular Hemoglobin Concent 33.2, Red Cell Distribution Width 15.1 H Microbiology Microbiology 06/30/16 Blood Culture - Preliminary, Resulted No Growth after 48 hours. All Specime... 06/30/16 Blood Culture - Preliminary, Resulted No Growth after 48 hours. All Specime... LINDY MA MD Jul 03, 2016 11:13
[2016-07-03 11:42] VITALS: BP 132/62
[2016-07-03 15:30] VITALS: BP 128/88
[2016-07-03] MEDS ORDERED: WARFARIN SOD 7.5 MG TAB PO SCH (17:00)
[2016-07-03] MEDS: VALSARTAN 80 MG TAB (DIOVAN) PO SCH (20:01)
[2016-07-03] MEDS: LIDOCAINE 5% (LIDODERM) PATCH TD SCH (20:01)
[2016-07-03] MEDS: LATANOPROST 0.005% OPHTH SOLN 2.5 ML OU SCH (20:02)
[2016-07-03] MEDS: ATORVASTATIN 20 MG TAB PO SCH (20:02)
[2016-07-03 22:00] VITALS: BP_SYST 124; BP_SYST 130; BP_SYST 137; BP_DIAS 67; BP_DIAS 69; BP_DIAS 70
[2016-07-04] VITALS (7 sets, daily range): BP systolic 116–210; BP diastolic 58–108
[2016-07-04] MEDS: **NOTE PATIENT COMMENT** MISC XX SCH ×2 (00:34→20:56)
[2016-07-04] MEDS: ONDANSETRON 4MG/2ML VIAL (J2405) IV PRN (01:54)
[2016-07-04] MEDS: ACETAMINOPHEN TAB 650MG DOSE (2X325MG) PO PRN (01:58)
[2016-07-04 05:47] LABS: MEAN CORPUSCULAR HEMOGLOBIN 30.4 pg (27.0-33.0); MEAN CORPUSCULAR HGB CONC 33.7 g/dl (32.0-36.5); MEAN CORPUSCULAR VOLUME 90.1 fl (80.0-96.0); WHITE BLOOD COUNT 4.9 K/mm3 (4.0-10.0)
[2016-07-04] MEDS: LEVOTHYROXINE 0.075 MG TAB (75 MCG) PO SCH (05:54)
[2016-07-04] MEDS: SLF 3 ML SYR IV SCH ×3 (05:55→21:07)
[2016-07-04 06:01] LABS: ALBUMIN 3.3 GM/DL (3.2-5.2); CALCIUM LEVEL 8.8 MG/DL (8.8-10.2); CREATININE FOR GFR 2.33 MG/DL (0.70-1.30); GLOMERULAR FILTRATION RATE 29.4 (>42); PHOSPHORUS LEVEL 3.9 MG/DL (2.5-4.9); POTASSIUM SERUM 4.2 MEQ/L (3.5-5.1)
[2016-07-04] MEDS: SIMETHICONE 80 MG CHEW TAB PO SCH ×2 (08:19→20:51)
[2016-07-04] MEDS: HumaLOG INSULIN (NovoLOG) PER UNIT SC SCH ×4 (08:19→20:54)
[2016-07-04] MEDS: amLODIPine 10 MG TAB PO SCH (08:20)
[2016-07-04] MEDS: CARVedilol 6.25 MG TAB PO SCH (08:21)
[2016-07-04] MEDS: OMEPRAZOLE 20 MG CAP PO SCH (08:21)
[2016-07-04] MEDS: FUROSEMIDE 80 MG TAB PO SCH ×2 (08:21→17:38)
[2016-07-04] MEDS: CINACALCET 30 MG TAB (SENSIPAR) PO SCH (08:21)
[2016-07-04] MEDS: ISOSORBIDE MONONITRATE 10MG TABLET PO SCH ×2 (08:21→17:39)
[2016-07-04] MEDS: ALLOPURINOL 300 MG TAB PO SCH (08:21)
[2016-07-04] MEDS: ASPIRIN 81 MG ENTERIC TAB PO SCH (08:22)
[2016-07-04] MEDS: LIDOCAINE 5% (LIDODERM) PATCH TD SCH (08:22)
[2016-07-04] MEDS: ACETAMINOPHEN 500 MG TAB PO SCH ×2 (11:00→20:54)
[2016-07-04] MEDS: APIXABAN 5 MG TAB (ELIQUIS) PO SCH ×2 (11:00→20:53)
[2016-07-04] MEDS: CEFDINIR 300 MG CAP (OMNICEF) PO SCH ×2 (11:01→20:52)
--- NOTE | 2016-07-04 11:14 | IPNPDOC ---
Subjective Date Seen The patient was seen on 07/04/16. Subjective Chief Complaint/HPI The patient is a 71-year-old male admitted with a reason for visit of TIA. Events since last encounter Still complaining of headache , weakness and unsteadiness, though he denied dizziness, Seems very anxious about each and every minor symptom, Pateint does not want the coumadin wants to take the eliquis said that he will be able to afford the copay. complaining of burning of urine, urine culture sent but patient is on cefdinir. Complains of sensation of flushing and heat. Objective Physical Examination General Exam: Positive: Alert, Cooperative, No Acute Distress Eye Exam: Positive: Conjunctiva & lids normal, EOMI, PERRLA, Negative: Sclera icteric ENT Exam: Positive: Atraumatic, Mucous membr. moist/pink, Pharynx Normal Neck Exam: Positive: Supple, Negative: JVD, thyromegaly Chest Exam: Positive: Clear to auscultation, Normal air movement Heart Exam: Positive: Normal S1, Normal S2, Rate Normal, Regular Rhythm, Negative: Murmurs, Rubs Telemetry: Positive: No significant arrhythmia Abdomen Exam: Positive: Normal bowel sounds, Soft, Negative: Hepatospenomegaly, Tenderness Extremity Exam: Positive: Normal pulses, Negative: Clubbing, Cyanosis, Edema Skin Exam: Positive: Lesion (left leg reddish tender nodular swelling), Nl turgor and temperature, Negative: Breakdown Assessment /Plan Problems (1) Neurocardiogenic pre-syncope Status: Acute Response to Treatment: Improving Problem Text: possibly related to paroxysmal a fib , orthostatic hypotension and mild dehydration due to diarrhea at home , poor oral intake while he was on the clinadycin and prednisone. orthostatics BPs are negative today will evaluate for BPPV will start meclizine. (2) Paroxysmal a-fib Status: Resolved Problem Text: does not want coumadin , wants to take eliquis said will be able to afford the copay. (3) TIA (transient ischemic attack) Status: Resolved Problem Text: questionable TIA looks more like presyncope due to orthostatic hypotension and paroxysmal a fib. (4) Cellulitis of left lower extremity Status: Acute Response to Treatment: Stable Problem Text: took 6 days of clindamycin without any change does not look inflamed at this point. currently on cefdinir. Looks like a subcutaneous hematoma which is organized (5) Gout Status: Chronic (6) CAD (coronary artery disease) Status: Chronic (7) Hyperlipidemia Status: Chronic (8) Hypothyroidism Status: Chronic (9) Osteoarthritis Status: Chronic (10) GERD (gastroesophageal reflux disease) Status: Chronic (11) Chronic kidney disease (CKD), stage III (moderate) Status: Chronic Response to Treatment: Stable Problem Text: baseline creatinine around 1.8 to 2.0 (12) S/p nephrectomy Status: Chronic (13) Adrenal nodule Status: Chronic (14) Cervical spinal stenosis Status: Chronic (15) Hypertension Status: Chronic (16) Diabetes Status: Chronic Plan/VTE VTE Prophylaxis Ordered?: Yes VS, I&O, 24H, Fishbone Vital Signs/I&O Vital Signs Date Time Temp Pulse Resp B/P Pulse Ox O2 Delivery O2 Flow Rate FiO2 07/04/16 11:00 64 20 150/60 100 Room Air 07/04/16 06:00 97.7 I&O- Last 24 Hours up to 6 AM 07/04/16 05:59 Intake Total 1860 ml Output Total 1200 ml Balance 660 ml Laboratory Data 24H LABS Laboratory Tests 2 07/03/16 12:07: Bedside Glucose (Misc Panel) 193H 07/03/16 16:33: Bedside Glucose (Misc Panel) 130H 07/03/16 21:01: Bedside Glucose (Misc Panel) 207H 07/04/16 05:30: Albumin 3.3, Blood Urea Nitrogen 76H, Creatinine 2.33H, Sodium Level 136, Potassium Level 4.2, Chloride Level 104, Carbon Dioxide Level 24, Anion Gap 8, Calcium Level 8.8, Glomerular Filtration Rate 29.4L, Phosphorus Level 3.9 CBC/BMP Laboratory Tests 07/04/16 05:30 Anion Gap 8, Red Blood Count 3.63 L, Mean Corpuscular Volume 90.1, Mean Corpuscular Hemoglobin 30.4, Mean Corpuscular Hemoglobin Concent 33.7, Red Cell Distribution Width 15.0 H Microbiology Microbiology 06/30/16 Blood Culture - Preliminary, Resulted No Growth after 72 hours. All specime... 06/30/16 Blood Culture - Preliminary, Resulted No Growth after 72 hours. All specime... 07/03/16 Urine Culture, Received Pending LINDY MA MD Jul 04, 2016 11:14
[2016-07-04] MEDS ORDERED: METOPROLOL 5 MG/5 ML VIAL As Ordered ONE (15:37)
[2016-07-04] MEDS ORDERED: METOPROLOL 5 MG/5 ML VIAL IV ONE (15:45)
--- NOTE | 2016-07-04 18:48 | ECGEPIP ---
Stationary ECG Study [facility] Test Date: 2016-07-04 Pat Name: JEANNA LYLE JR Department: Room: [place] [address] Gender: M Bag Sewer: LYNDA : 1945 Requested By: LINDY MA Order Number: [id number] Reading MD: Jason Gardner Measurements Intervals [place] Rate: 80 P: TN: 0 QRS: 53 QRSD: 110 T: 60 QT: 372 QTc: 430 Interpretive Statements ATRIAL FIBRILLATION SEPTAL MYOCARDIAL INFARCTION, OF INDETERMINATE AGE Electronically Signed On 07-04-2016 18:48:20 EDT by Jason Gardner
--- NOTE | 2016-07-04 19:08 | ECGEPIP ---
Stationary ECG Study [facility] Test Date: 2016-07-04 Pat Name: JEANNA LYLE JR Department: Room: [place] [address] Gender: M Die Reamer: : 1945 Requested By: LINDY MA Order Number: [id number] Reading MD: Jason Gardner Measurements Intervals [place] Rate: 64 P: [place]: 0 QRS: 44 QRSD: 108 T: 71 QT: 397 QTc: 410 Interpretive Statements ATRIAL FIBRILLATION SEPTAL MYOCARDIAL INFARCTION, OF INDETERMINATE AGE NONSPECIFIC T-WAVE ABNORMALITY Similar to tracing done 07-04-16 at 11:54 with reduced rate Electronically Signed On 07-04-2016 19:07:51 EDT by Jason Gardner
[2016-07-04] MEDS: ATORVASTATIN 20 MG TAB PO SCH (20:51)
[2016-07-04] MEDS: VALSARTAN 80 MG TAB (DIOVAN) PO SCH (20:54)
[2016-07-04] MEDS ORDERED: CEFDINIR 300 MG CAP (OMNICEF) PO SCH (21:00)
[2016-07-04] MEDS ORDERED: METOPROLOL TART 25 MG TABLET PO SCH (21:00)
[2016-07-04] MEDS: LATANOPROST 0.005% OPHTH SOLN 2.5 ML OU SCH (21:00)
[2016-07-05 03:12] VITALS: BP 149/69
[2016-07-05] MEDS: LATANOPROST 0.005% OPHTH SOLN 2.5 ML OU SCH ×2 (04:58→22:09)
[2016-07-05] MEDS: LEVOTHYROXINE 0.075 MG TAB (75 MCG) PO SCH (04:58)
[2016-07-05] MEDS: SLF 3 ML SYR IV SCH ×3 (04:59→22:09)
[2016-07-05 06:42] LABS: MEAN CORPUSCULAR HEMOGLOBIN 30.6 pg (27.0-33.0); MEAN CORPUSCULAR VOLUME 89.9 fl (80.0-96.0); RED CELL DISTRIBUTION WIDTH 15.2 % (11.5-14.5); WHITE BLOOD COUNT 4.9 K/mm3 (4.0-10.0)
[2016-07-05 07:02] LABS: ALBUMIN 3.3 GM/DL (3.2-5.2); CALCIUM LEVEL 8.4 MG/DL (8.8-10.2); CREATININE FOR GFR 2.36 MG/DL (0.70-1.30); GLOMERULAR FILTRATION RATE 28.9 (>42); PHOSPHORUS LEVEL 3.8 MG/DL (2.5-4.9); POTASSIUM SERUM 3.7 MEQ/L (3.5-5.1)
[2016-07-05] MEDS: FUROSEMIDE 80 MG TAB PO SCH ×2 (07:46→17:15)
[2016-07-05 08:00] VITALS: BP 130/62
[2016-07-05] MEDS ORDERED: FUROSEMIDE 100 MG/10 ML VIAL (J1940) IV ONE (08:00)
[2016-07-05] MEDS: ALLOPURINOL 300 MG TAB PO SCH (09:23)
[2016-07-05] MEDS: OMEPRAZOLE 20 MG CAP PO SCH (09:23)
[2016-07-05] MEDS: amLODIPine 10 MG TAB PO SCH (09:24)
[2016-07-05] MEDS: SIMETHICONE 80 MG CHEW TAB PO SCH ×2 (09:24→22:08)
[2016-07-05] MEDS: CEFDINIR 300 MG CAP (OMNICEF) PO SCH ×2 (09:24→22:09)
[2016-07-05] MEDS: ACETAMINOPHEN 500 MG TAB PO SCH ×2 (09:24→22:08)
[2016-07-05] MEDS: CARVedilol 12.5 MG TAB PO SCH ×2 (09:24→22:07)
[2016-07-05] MEDS: APIXABAN 5 MG TAB (ELIQUIS) PO SCH ×2 (09:24→22:09)
[2016-07-05] MEDS: LIDOCAINE 5% (LIDODERM) PATCH TD SCH (09:25)
[2016-07-05] MEDS: ISOSORBIDE MONONITRATE 10MG TABLET PO SCH ×2 (09:25→17:15)
[2016-07-05] MEDS: HumaLOG INSULIN (NovoLOG) PER UNIT SC SCH ×4 (09:25→22:00)
--- NOTE | 2016-07-05 10:22 | IPNPDOC ---
Subjective Date Seen The patient was seen on 07/05/16. Subjective Chief Complaint/HPI The patient is a 71-year-old male admitted with a reason for visit of TIA. Events since last encounter yesterday afternoon had an episode to afib with rvr and hypertensive urgency, earlier in the am around 11 he had complained to chest pain radiating to his left arm , ekg then showed afib with rate of 80, 2 sets of cardiac markers were negative. repeat EKG showed afib with controlled rate no progressive changes. Objective Physical Examination General Exam: Positive: Alert, Cooperative, No Acute Distress Eye Exam: Positive: Conjunctiva & lids normal, EOMI, PERRLA, Negative: Sclera icteric ENT Exam: Positive: Atraumatic, Mucous membr. moist/pink, Pharynx Normal Neck Exam: Positive: Supple, Negative: JVD, thyromegaly Chest Exam: Positive: Clear to auscultation, Normal air movement Heart Exam: Positive: Normal S1, Normal S2, Rate Normal, Regular Rhythm, Negative: Murmurs, Rubs Telemetry: Positive: No significant arrhythmia Abdomen Exam: Positive: Normal bowel sounds, Soft, Negative: Hepatospenomegaly, Tenderness Extremity Exam: Positive: Normal pulses, Negative: Clubbing, Cyanosis, Edema Skin Exam: Positive: Lesion (left leg reddish tender nodular swelling), Nl turgor and temperature, Negative: Breakdown Assessment /Plan Problems (1) Hypertensive urgency Status: Acute Problem Text: had it in the afternoon on 07/04/16 , he was noted to be tachycardic to 130s, he complained of headache, flushing also , he was moved to PCU and received 1 dose of iv metoprolol 5 mg. after that his afib spontaneously resolved and hypertensive urgency also resolved. Patient has history of adrenal nodule on the right will order tests for pheochromocytoma. (2) Neurocardiogenic pre-syncope Status: Acute Response to Treatment: Improving Problem Text: possibly related to paroxysmal a fib , orthostatic hypotension and mild dehydration due to diarrhea at home , poor oral intake while he was on the clinadycin and prednisone. BPPV evaluation was negative. (3) Paroxysmal a-fib Status: Resolved Problem Text: Had afib/ flutter in 2009 and had ablation then has recurred now again. does not want coumadin , wants to take eliquis said will be able to afford the copay. (4) Cellulitis of left lower extremity Status: Acute Response to Treatment: Improving Problem Text: took 6 days of clindamycin without any change does not look inflamed at this point. currently on cefdinir. Looks like a subcutaneous hematoma which is organized (5) Gout Status: Chronic (6) CAD (coronary artery disease) Status: Chronic Problem Text: s/p NSTEMI in 1999 and inferior wall ami in 2001. s/p multiple stents in LAD, LCA and RCA and had CABG in 2006 at [facility]. (7) Hyperlipidemia Status: Chronic (8) Hypothyroidism Status: Chronic (9) Osteoarthritis Status: Chronic (10) GERD (gastroesophageal reflux disease) Status: Chronic (11) Chronic kidney disease (CKD), stage III (moderate) Status: Chronic Response to Treatment: Stable Problem Text: baseline creatinine around 1.8 to 2.0 (12) S/p nephrectomy Status: Chronic (13) Adrenal nodule Status: Chronic Problem Text: present since 2006 on the right will check for pheochromocytoma. (14) Cervical spinal stenosis Status: Chronic (15) Hypertension Status: Chronic (16) Diabetes Status: Chronic (17) Diastolic CHF Status: Chronic Problem Text: seems to be slightly fluid overloaded this am and weight has increased will give a dose of iv lasix. And put on fluid restriction. Plan/VTE VTE Prophylaxis Ordered?: Yes VS, I&O, 24H, Fishbone Vital Signs/I&O Vital Signs Date Time Temp Pulse Resp B/P Pulse Ox O2 Delivery O2 Flow Rate FiO2 07/05/16 09:24 63 136/82 07/05/16 03:12 98.7 18 97 Room Air 07/04/16 16:00 2.0 I&O- Last 24 Hours up to 6 AM 07/05/16 05:59 Intake Total 2320 ml Output Total 900 ml Balance 1420 ml Laboratory Data 24H LABS Laboratory Tests 2 07/04/16 11:42: Bedside Glucose (Misc Panel) 178H 07/04/16 11:52: Creatine Kinase MB 1.8, Creatine Kinase MB Relative Index 1.78, Total Creatine Kinase 101, Troponin I < 0.02 07/04/16 16:54: Bedside Glucose (Misc Panel) 141H 07/04/16 17:52: Creatine Kinase MB 1.4, Creatine Kinase MB Relative Index 1.23, Total Creatine Kinase 113, Troponin I < 0.02 07/04/16 19:59: Bedside Glucose (Misc Panel) 177H 07/05/16 04:53: Albumin 3.3, Blood Urea Nitrogen 70H, Creatinine 2.36H, Sodium Level 138, Potassium Level 3.7, Chloride Level 103, Carbon Dioxide Level 25, Anion Gap 10, Calcium Level 8.4L, Glomerular Filtration Rate 28.9L, Phosphorus Level 3.8 07/05/16 07:19: CBC/BMP Laboratory Tests 07/05/16 04:53 Anion Gap 10, Red Blood Count 3.54 L, Mean Corpuscular Volume 89.9, Mean Corpuscular Hemoglobin 30.6, Mean Corpuscular Hemoglobin Concent 34.0, Red Cell Distribution Width 15.2 H Microbiology Microbiology 06/30/16 Blood Culture - Preliminary, Resulted No Growth after 72 hours. All specime... 06/30/16 Blood Culture - Preliminary, Resulted No Growth after 72 hours. All specime... 07/03/16 Urine Culture - Final, Complete LINDY MA MD Jul 05, 2016 10:22
[2016-07-05 12:00] VITALS: BP 127/59
[2016-07-05 16:00] VITALS: BP 114/59
--- NOTE | 2016-07-05 16:08 | ECGEPIP ---
Stationary ECG Study [facility] Test Date: 2016-07-05 Pat Name: JEANNA LYLE JR Department: Room: [place] [address] Gender: M Stop Attacher: LYNDA : 1945 Requested By: LINDY MA Order Number: [id number] Reading MD: Jason Gardner Measurements Intervals [place] Rate: 61 P: 31 SC: 276 QRS: 38 QRSD: 114 T: 83 QT: 425 QTc: 430 Interpretive Statements SINUS RHYTHM WITH FIRST DEGREE AV BLOCK WITH FREQUENT VENTRICULAR PREMATURE COMPLEXES MODERATE INTRAVENTRICULAR CONDUCTION DELAY SEPTAL MYOCARDIAL INFARCTION, OF INDETERMINATE AGE NONSPECIFIC ST & T-WAVE ABNORMALITY Ectopy not notable on tracing from 07-04-16 Electronically Signed On 07-05-2016 16:08:30 EDT by Jason Gardner
[2016-07-05 19:11] VITALS: BP 133/60
[2016-07-05] MEDS: ATORVASTATIN 20 MG TAB PO SCH (22:07)
[2016-07-05] MEDS: **NOTE PATIENT COMMENT** MISC XX SCH (22:09)
[2016-07-05] MEDS: VALSARTAN 80 MG TAB (DIOVAN) PO SCH (22:09)
[2016-07-05 23:56] VITALS: BP 107/71
[2016-07-06] VITALS (7 sets, daily range): BP systolic 110–155; BP diastolic 59–81
[2016-07-06 05:24] LABS: MEAN CORPUSCULAR HEMOGLOBIN 30.1 pg (27.0-33.0); MEAN CORPUSCULAR HGB CONC 33.3 g/dl (32.0-36.5); MEAN CORPUSCULAR VOLUME 90.2 fl (80.0-96.0); WHITE BLOOD COUNT 5.3 K/mm3 (4.0-10.0)
[2016-07-06 05:35] LABS: ALBUMIN 3.4 GM/DL (3.2-5.2); CREATININE FOR GFR 2.32 MG/DL (0.70-1.30); GLOMERULAR FILTRATION RATE 29.5 (>42); PHOSPHORUS LEVEL 3.8 MG/DL (2.5-4.9)
[2016-07-06] MEDS: LEVOTHYROXINE 0.075 MG TAB (75 MCG) PO SCH (05:51)
[2016-07-06] MEDS: SLF 3 ML SYR IV SCH ×3 (05:52→21:22)
[2016-07-06] MEDS: HumaLOG INSULIN (NovoLOG) PER UNIT SC SCH ×4 (07:38→21:00)
[2016-07-06] MEDS: LIDOCAINE 5% (LIDODERM) PATCH TD SCH (08:30)
[2016-07-06] MEDS: CEFDINIR 300 MG CAP (OMNICEF) PO SCH (08:31)
[2016-07-06] MEDS: FUROSEMIDE 80 MG TAB PO SCH (08:32)
[2016-07-06] MEDS: ALLOPURINOL 300 MG TAB PO SCH (08:32)
[2016-07-06] MEDS: OMEPRAZOLE 20 MG CAP PO SCH (08:32)
[2016-07-06] MEDS: APIXABAN 5 MG TAB (ELIQUIS) PO SCH ×2 (08:32→21:17)
[2016-07-06] MEDS: SIMETHICONE 80 MG CHEW TAB PO SCH ×2 (08:32→21:16)
[2016-07-06] MEDS: CARVedilol 12.5 MG TAB PO SCH ×2 (08:33→21:16)
[2016-07-06] MEDS: ISOSORBIDE MONONITRATE 10MG TABLET PO SCH ×2 (08:33→17:06)
[2016-07-06] MEDS: amLODIPine 10 MG TAB PO SCH (08:33)
[2016-07-06] MEDS: ACETAMINOPHEN 500 MG TAB PO SCH ×2 (08:34→21:15)
--- NOTE | 2016-07-06 12:43 | IPNPDOC ---
Subjective Date Seen The patient was seen on 07/06/16. Subjective Chief Complaint/HPI The patient is a 71-year-old male admitted with a reason for visit of TIA. Events since last encounter very fluid overloaded today , continues to complain of intermittent dizziness, flushes. In telemetry Patient in and out of afib , Patient becomes symptomatic when pulse rate to 100. Very anxious. have not yet started collecting the urine for catecholamines. Seems very anxious about going home . Objective Physical Examination General Exam: Positive: Alert, Cooperative, No Acute Distress Eye Exam: Positive: Conjunctiva & lids normal, EOMI, PERRLA, Negative: Sclera icteric ENT Exam: Positive: Atraumatic, Mucous membr. moist/pink, Pharynx Normal Neck Exam: Positive: Supple, Negative: JVD, thyromegaly Chest Exam: Positive: Clear to auscultation, Normal air movement Heart Exam: Positive: Normal S1, Normal S2, Rate Normal, Regular Rhythm, Negative: Murmurs, Rubs Telemetry: Positive: No significant arrhythmia Abdomen Exam: Positive: Normal bowel sounds, Soft, Negative: Hepatospenomegaly, Tenderness Extremity Exam: Positive: Normal pulses, Negative: Clubbing, Cyanosis, Edema Skin Exam: Positive: Lesion (left leg reddish tender nodular swelling), Nl turgor and temperature, Negative: Breakdown Assessment /Plan Problems (1) Hypertensive urgency Status: Resolved Problem Text: had it in the afternoon on 07/04/16 , he was noted to be tachycardic to 130s, he complained of headache, flushing also , he was moved to PCU and received 1 dose of iv metoprolol 5 mg. after that his afib spontaneously resolved and hypertensive urgency also resolved. Patient has history of adrenal nodule on the right will order tests for pheochromocytoma. (2) Neurocardiogenic pre-syncope Status: Acute Response to Treatment: Improving Problem Text: possibly related to paroxysmal a fib , orthostatic hypotension and mild dehydration due to diarrhea at home , poor oral intake while he was on the clinadycin and prednisone. BPPV evaluation was negative. (3) Paroxysmal a-fib Status: Resolved Problem Text: Had afib/ flutter in 2009 and had ablation then has recurred now again. does not want coumadin , wants to take eliquis said will be able to afford the copay. (4) Cellulitis of left lower extremity Status: Resolved Problem Text: Looks like a subcutaneous hematoma which is organized was probably infected. finished course of cefdinir. (5) Gout Status: Chronic (6) CAD (coronary artery disease) Status: Chronic Problem Text: s/p NSTEMI in 1999 and inferior wall ami in 2001. s/p multiple stents in LAD, LCA and RCA and had CABG in 2006 at [facility]. (7) Hyperlipidemia Status: Chronic (8) Hypothyroidism Status: Chronic (9) Osteoarthritis Status: Chronic (10) GERD (gastroesophageal reflux disease) Status: Chronic (11) Chronic kidney disease (CKD), stage III (moderate) Status: Chronic Response to Treatment: Stable Problem Text: baseline creatinine around 1.8 to 2.0 (12) S/p nephrectomy Status: Chronic (13) Adrenal nodule Status: Chronic Problem Text: present since 2006 on the right will check for pheochromocytoma. (14) Cervical spinal stenosis Status: Chronic (15) Hypertension Status: Chronic (16) Diabetes Status: Chronic (17) Diastolic CHF Status: Chronic Problem Text: seems to be slightly fluid overloaded this am and weight has increased will give a dose of iv lasix. And put on fluid restriction. Plan/VTE VTE Prophylaxis Ordered?: Yes VS, I&O, 24H, Fishbone Vital Signs/I&O Vital Signs Date Time Temp Pulse Resp B/P Pulse Ox O2 Delivery O2 Flow Rate FiO2 07/06/16 12:00 98.1 62 18 145/81 98 Room Air 07/04/16 16:00 2.0 I&O- Last 24 Hours up to 6 AM 07/06/16 06:00 Intake Total 1385 ml Output Total 2475 ml Balance -1090 ml Laboratory Data 24H LABS Laboratory Tests 2 07/06/16 04:58: Albumin 3.4, Blood Urea Nitrogen 71H, Creatinine 2.32H, Sodium Level 139, Potassium Level 4.0, Chloride Level 106, Carbon Dioxide Level 26, Anion Gap 7L, Calcium Level 9.0, Glomerular Filtration Rate 29.5L, Phosphorus Level 3.8 CBC/BMP Laboratory Tests 07/06/16 04:58 Anion Gap 7 L, Red Blood Count 3.69 L, Mean Corpuscular Volume 90.2, Mean Corpuscular Hemoglobin 30.1, Mean Corpuscular Hemoglobin Concent 33.3, Red Cell Distribution Width 15.0 H Microbiology Microbiology 4/18/17 Blood Culture - Final, Complete NO GROWTH AFTER 5 DAYS 06/30/16 Blood Culture - Final, Complete NO GROWTH AFTER 5 DAYS 07/03/16 Urine Culture - Final, Complete LINDY MA MD Jul 06, 2016 12:43
[2016-07-06] MEDS: FUROSEMIDE 100 MG/10 ML VIAL (J1940) IV SCH (17:07)
[2016-07-06] MEDS ORDERED: SODIUM CHLORIDE NASAL 0.65% SPRAY BTL (OCEAN) PRN (19:45)
[2016-07-06] MEDS: **NOTE PATIENT COMMENT** MISC XX SCH (21:00)
[2016-07-06] MEDS: DOCUSATE SODIUM 100 MG CAP PO PRN (21:15)
[2016-07-06] MEDS: ATORVASTATIN 20 MG TAB PO SCH (21:16)
[2016-07-06] MEDS: LATANOPROST 0.005% OPHTH SOLN 2.5 ML OU SCH (21:17)
[2016-07-06] MEDS: VALSARTAN 80 MG TAB (DIOVAN) PO SCH (21:17)
[2016-07-07] MEDS: FUROSEMIDE 100 MG/10 ML VIAL (J1940) IV SCH ×3 (00:29→16:14)
[2016-07-07 04:45] VITALS: BP 142/68
[2016-07-07] MEDS: SLF 3 ML SYR IV SCH ×3 (05:14→21:33)
[2016-07-07] MEDS: LEVOTHYROXINE 0.075 MG TAB (75 MCG) PO SCH (05:19)
[2016-07-07 06:24] LABS: MEAN CORPUSCULAR HEMOGLOBIN 30.2 pg (27.0-33.0); MEAN CORPUSCULAR HGB CONC 33.8 g/dl (32.0-36.5); MEAN CORPUSCULAR VOLUME 89.3 fl (80.0-96.0); RED CELL DISTRIBUTION WIDTH 14.8 % (11.5-14.5)
[2016-07-07 06:39] LABS: ALBUMIN 3.7 GM/DL (3.2-5.2); CALCIUM LEVEL 9.4 MG/DL (8.8-10.2); CREATININE FOR GFR 2.26 MG/DL (0.70-1.30); GLOMERULAR FILTRATION RATE 30.4 (>42); PHOSPHORUS LEVEL 3.5 MG/DL (2.5-4.9)
[2016-07-07] MEDS: HumaLOG INSULIN (NovoLOG) PER UNIT SC SCH ×4 (07:35→20:36)
[2016-07-07 08:00] VITALS: BP 155/70
[2016-07-07] MEDS ORDERED: APIXABAN 5 MG TAB (ELIQUIS) PO SCH ×2 (09:00→21:00)
[2016-07-07] MEDS: ALLOPURINOL 300 MG TAB PO SCH (09:10)
[2016-07-07] MEDS: APIXABAN 5 MG TAB (ELIQUIS) PO SCH ×2 (09:11→20:44)
[2016-07-07] MEDS: OMEPRAZOLE 20 MG CAP PO SCH (09:11)
[2016-07-07] MEDS: ACETAMINOPHEN 500 MG TAB PO SCH ×2 (09:12→20:44)
[2016-07-07] MEDS: amLODIPine 10 MG TAB PO SCH (09:12)
[2016-07-07] MEDS: SIMETHICONE 80 MG CHEW TAB PO SCH ×2 (09:13→20:44)
[2016-07-07] MEDS: CARVedilol 12.5 MG TAB PO SCH ×2 (09:13→20:45)
[2016-07-07] MEDS: CINACALCET 30 MG TAB (SENSIPAR) PO SCH (09:13)
[2016-07-07] MEDS: ISOSORBIDE MONONITRATE 10MG TABLET PO SCH ×2 (09:14→16:14)
[2016-07-07] MEDS: LIDOCAINE 5% (LIDODERM) PATCH TD SCH (09:15)
[2016-07-07 12:00] VITALS: BP 130/76
[2016-07-07] MEDS: DOCUSATE SODIUM 100 MG CAP PO PRN (14:41)
[2016-07-07 17:55] VITALS: BP 159/70
--- NOTE | 2016-07-07 20:12 | IPNPDOC ---
Subjective Date Seen The patient was seen on 07/07/16. Subjective Chief Complaint/HPI The patient is a 71-year-old male admitted with a reason for visit of TIA. Events since last encounter pt seen and examined, no overnight events, he has been ambulating in the hallways, no chest pain, no shortness of breath, no events on tele. Objective Physical Examination General Exam: Positive: Alert, Cooperative, No Acute Distress Eye Exam: Positive: PERRLA, Conjunctiva & lids normal, EOMI, Negative: Sclera icteric ENT Exam: Positive: Atraumatic, Mucous membr. moist/pink, Pharynx Normal Neck Exam: Positive: Supple, Negative: JVD, thyromegaly Chest Exam: Positive: Clear to auscultation, Normal air movement Heart Exam: Positive: Rate Normal, Regular Rhythm, Normal S1, Normal S2, Negative: Murmurs, Rubs Telemetry: Positive: No significant arrhythmia Abdomen Exam: Positive: Normal bowel sounds, Soft, Negative: Tenderness, Hepatospenomegaly Extremity Exam: Positive: Normal pulses, Negative: Clubbing, Cyanosis, Edema Skin Exam: Positive: Nl turgor and temperature, Lesion (left leg reddish tender nodular swelling), Negative: Breakdown Assessment /Plan Problems (1) Hypertensive urgency Status: Resolved Problem Text: had it in the afternoon on 07/04/16 , he was noted to be tachycardic to 130s, he complained of headache, flushing also , he was moved to PCU and received 1 dose of iv metoprolol 5 mg. after that his afib spontaneously resolved and hypertensive urgency also resolved. Patient has history of adrenal nodule on the right tests for pheochromocytoma pending (2) Neurocardiogenic pre-syncope Status: Acute Response to Treatment: Improving Problem Text: possibly related to paroxysmal a fib , orthostatic hypotension and mild dehydration due to diarrhea at home , poor oral intake while he was on the clinadycin and prednisone. BPPV evaluation was negative. (3) Paroxysmal a-fib Status: Resolved Problem Text: Had afib/ flutter in 2009 and had ablation then has recurred now again. does not want coumadin , wants to take eliquis said will be able to afford the copay. (4) Cellulitis of left lower extremity Status: Resolved Problem Text: Looks like a subcutaneous hematoma which is organized was probably infected. finished course of cefdinir. (5) Gout Status: Chronic (6) CAD (coronary artery disease) Status: Chronic Problem Text: s/p NSTEMI in 1999 and inferior wall ami in 2001. s/p multiple stents in LAD, LCA and RCA and had CABG [place] [address] [facility]. (7) Hyperlipidemia Status: Chronic (8) Hypothyroidism Status: Chronic (9) Osteoarthritis Status: Chronic (10) GERD (gastroesophageal reflux disease) Status: Chronic (11) Chronic kidney disease (CKD), stage III (moderate) Status: Chronic Response to Treatment: Stable Problem Text: baseline creatinine around 1.8 to 2.0 (12) S/p nephrectomy Status: Chronic (13) Adrenal nodule Status: Chronic Problem Text: present since 2006 on the right will check for pheochromocytoma. (14) Cervical spinal stenosis Status: Chronic (15) Hypertension Status: Chronic (16) Diabetes Status: Chronic (17) Diastolic CHF Status: Chronic Problem Text: continue IV lasix and will switch back to po lasix in am Plan/VTE VTE Prophylaxis Ordered?: Yes VS, I&O, 24H, [facility] Vital Signs/I&O Vital Signs Date Time Temp Pulse Resp B/P Pulse Ox O2 Delivery O2 Flow Rate FiO2 07/07/16 17:55 97.5 86 18 159/70 99 Room Air 07/04/16 16:00 2.0 I&O- Last 24 Hours up to 6 AM 07/07/16 05:59 Intake Total 1200 ml Output Total 350 ml Balance 850 ml Laboratory Data 24H LABS Laboratory Tests 2 07/06/16 21:23: Bedside Glucose (Misc Panel) 188H 07/07/16 06:00: Albumin 3.7, Blood Urea Nitrogen 68H, Creatinine 2.26H, Sodium Level 139, Potassium Level 4.0, Chloride Level 106, Carbon Dioxide Level 24, Anion Gap 9, Calcium Level 9.4, Glomerular Filtration Rate 30.4L, Phosphorus Level 3.5 07/07/16 13:15: 07/07/16 19:34: Bedside Glucose (Misc Panel) 198H CBC/BMP Laboratory Tests 07/07/16 06:00 Anion Gap 9, Red Blood Count 3.77 L, Mean Corpuscular Volume 89.3, Mean Corpuscular Hemoglobin 30.2, Mean Corpuscular Hemoglobin Concent 33.8, Red Cell Distribution Width 14.8 H Microbiology Microbiology 4/18/17 Blood Culture - Final, Complete NO GROWTH AFTER 5 DAYS 06/30/16 Blood Culture - Final, Complete NO GROWTH AFTER 5 DAYS 07/03/16 Urine Culture - Final, Complete TIFFANI JAVIER DO Jul 07, 2016 20:12
[2016-07-07] MEDS: VALSARTAN 80 MG TAB (DIOVAN) PO SCH (20:44)
[2016-07-07] MEDS: **NOTE PATIENT COMMENT** MISC XX SCH (20:44)
[2016-07-07] MEDS: ATORVASTATIN 20 MG TAB PO SCH (20:45)
[2016-07-07] MEDS: LATANOPROST 0.005% OPHTH SOLN 2.5 ML OU SCH (21:00)
[2016-07-07 22:00] VITALS: BP 130/67
[2016-07-08] MEDS: FUROSEMIDE 100 MG/10 ML VIAL (J1940) IV SCH ×2 (00:01→09:41)
[2016-07-08] MEDS: LEVOTHYROXINE 0.075 MG TAB (75 MCG) PO SCH (05:33)
[2016-07-08] MEDS: SLF 3 ML SYR IV SCH ×3 (05:33→21:04)
[2016-07-08 06:00] VITALS: BP 135/71
[2016-07-08 07:21] LABS: MEAN CORPUSCULAR HEMOGLOBIN 30.9 pg (27.0-33.0); MEAN CORPUSCULAR HGB CONC 34.2 g/dl (32.0-36.5); MEAN CORPUSCULAR VOLUME 90.3 fl (80.0-96.0); WHITE BLOOD COUNT 6.1 K/mm3 (4.0-10.0)
[2016-07-08 07:44] LABS: ALBUMIN 3.9 GM/DL (3.2-5.2); CALCIUM LEVEL 9.3 MG/DL (8.8-10.2); CREATININE FOR GFR 2.33 MG/DL (0.70-1.30); GLOMERULAR FILTRATION RATE 29.4 (>42); PHOSPHORUS LEVEL 3.3 MG/DL (2.5-4.9); POTASSIUM SERUM 3.8 MEQ/L (3.5-5.1)
[2016-07-08] MEDS: ALLOPURINOL 300 MG TAB PO SCH (09:39)
[2016-07-08] MEDS: CARVedilol 12.5 MG TAB PO SCH ×2 (09:39→20:54)
[2016-07-08] MEDS: APIXABAN 5 MG TAB (ELIQUIS) PO SCH ×2 (09:39→20:54)
[2016-07-08] MEDS: SIMETHICONE 80 MG CHEW TAB PO SCH ×2 (09:39→20:55)
[2016-07-08] MEDS: OMEPRAZOLE 20 MG CAP PO SCH (09:39)
[2016-07-08] MEDS: ACETAMINOPHEN 500 MG TAB PO SCH ×2 (09:40→20:55)
[2016-07-08] MEDS: amLODIPine 10 MG TAB PO SCH (09:40)
[2016-07-08] MEDS: LIDOCAINE 5% (LIDODERM) PATCH TD SCH (09:41)
[2016-07-08] MEDS: HumaLOG INSULIN (NovoLOG) PER UNIT SC SCH ×4 (09:43→20:46)
[2016-07-08] MEDS: ISOSORBIDE MONONITRATE 10MG TABLET PO SCH ×2 (12:43→16:33)
[2016-07-08 14:00] VITALS: BP 148/97
--- NOTE | 2016-07-08 15:09 | IPNPDOC ---
Subjective Date Seen The patient was seen on 07/08/16. Subjective Chief Complaint/HPI The patient is a 71-year-old male admitted with a reason for visit of TIA. Events since last encounter pt seen and examined, doing well but states that he felt dizzy when he was ambulating in the [place], currently denies any shortness of breath, no other symptoms Objective Physical Examination General Exam: Positive: Alert, Cooperative, No Acute Distress Eye Exam: Positive: PERRLA, Conjunctiva & lids normal, EOMI, Negative: Sclera icteric ENT Exam: Positive: Atraumatic, Mucous membr. moist/pink, Pharynx Normal Neck Exam: Positive: Supple, Negative: JVD, thyromegaly Chest Exam: Positive: Clear to auscultation, Normal air movement Heart Exam: Positive: Rate Normal, Regular Rhythm, Normal S1, Normal S2, Negative: Murmurs, Rubs Telemetry: Positive: No significant arrhythmia Abdomen Exam: Positive: Normal bowel sounds, Soft, Negative: Tenderness, Hepatospenomegaly Extremity Exam: Positive: Normal pulses, Negative: Clubbing, Cyanosis, Edema Skin Exam: Positive: Nl turgor and temperature, Lesion (left leg reddish tender nodular swelling), Negative: Breakdown Assessment /Plan Problems (1) Hypertensive urgency Status: Resolved Problem Text: pheochromocytomas workup pending (2) Neurocardiogenic pre-syncope Status: Acute Response to Treatment: Improving Problem Text: possibly related to paroxysmal a fib , orthostatic hypotension and mild dehydration due to diarrhea at home , poor oral intake while he was on the clinadycin and prednisone. BPPV evaluation was negative. (3) Paroxysmal a-fib Status: Resolved Problem Text: Had afib/ flutter in 2009 and had ablation then has recurred now again. does not want coumadin , wants to take eliquis said will be able to afford the copay. (4) Cellulitis of left lower extremity Status: Resolved Problem Text: Looks like a subcutaneous hematoma which is organized was probably infected. finished course of cefdinir. (5) Gout Status: Chronic (6) CAD (coronary artery disease) Status: Chronic Problem Text: s/p NSTEMI in 1999 and inferior wall ami in 2001. s/p multiple stents in LAD, LCA and RCA and had CABG in 2006 at [facility]. (7) Hyperlipidemia Status: Chronic (8) Hypothyroidism Status: Chronic (9) Osteoarthritis Status: Chronic (10) GERD (gastroesophageal reflux disease) Status: Chronic (11) Chronic kidney disease (CKD), stage III (moderate) Status: Chronic Response to Treatment: Stable Problem Text: baseline creatinine around 1.8 to 2.0 (12) S/p nephrectomy Status: Chronic (13) Adrenal nodule Status: Chronic Problem Text: present since 2006 on the right will check for pheochromocytoma. (14) Cervical spinal stenosis Status: Chronic (15) Hypertension Status: Chronic (16) Diabetes Status: Chronic (17) Diastolic CHF Status: Chronic Problem Text: continue IV lasix and will switch back to po lasix in am Plan/VTE VTE Prophylaxis Ordered?: Yes VS, I&O, 24H, Fishbone Vital Signs/I&O Vital Signs Date Time Temp Pulse Resp B/P (MAP) Pulse Ox O2 Delivery O2 Flow Rate FiO2 07/08/16 14:00 97.8 99 18 148/97 (114) 96 07/08/16 06:00 Room Air 07/04/16 16:00 2.0 I&O- Last 24 Hours up to 6 AM 07/08/16 06:00 Intake Total 900 ml Output Total 1325 ml Balance -425 ml Laboratory Data 24H LABS Laboratory Tests 2 07/07/16 16:39: Bedside Glucose (Misc Panel) 122H 07/07/16 19:34: Bedside Glucose (Misc Panel) 198H 07/08/16 07:08: Blood Urea Nitrogen 67H, Creatinine 2.33H, Sodium Level 141, Potassium Level 3.8 , Chloride Level 105, Carbon Dioxide Level 26, Anion Gap 10, Glomerular Filtration Rate 29.4L, Calcium Level 9.3, Phosphorus Level 3.3, Albumin 3.9 CBC/BMP Laboratory Tests 07/08/16 07:08 Red Blood Count 4.06 L, Mean Corpuscular Volume 90.3, Mean Corpuscular Hemoglobin 30.9, Mean Corpuscular Hemoglobin Concent 34.2, Red Cell Distribution Width 15.0 H, Anion Gap 10 Microbiology Microbiology 06/30/16 Blood Culture - Final, Complete NO GROWTH AFTER 5 DAYS 06/30/16 Blood Culture - Final, Complete NO GROWTH AFTER 5 DAYS 07/03/16 Urine Culture - Final, Complete TIFFANI JAVIER DO Jul 08, 2016 15:09
[2016-07-08 20:14] VITALS: BP 127/60
[2016-07-08] MEDS: LATANOPROST 0.005% OPHTH SOLN 2.5 ML OU SCH (20:53)
[2016-07-08] MEDS: ATORVASTATIN 20 MG TAB PO SCH (20:54)
[2016-07-08] MEDS: **NOTE PATIENT COMMENT** MISC XX SCH (20:55)
[2016-07-09] MEDS: SLF 3 ML SYR IV SCH ×3 (05:39→21:30)
[2016-07-09] MEDS: LEVOTHYROXINE 0.075 MG TAB (75 MCG) PO SCH (05:39)
[2016-07-09 06:00] VITALS: BP 159/71
[2016-07-09 06:38] LABS: BASO % 0.4 % (0.0-1.0); EOS # 0.2 K/mm3 (0.0-0.50); EOS % 3.3 % (0.0-3.0); LARGE UNSTAINED CELL # 0.1 K/mm3 (0.0-0.4); LARGE UNSTAINED CELL % 1.8 % (0.0-4.0); LYMPH # 1.2 K/mm3 (1.5-4.5); LYMPH % 22.9 % (24.0-44.0); MEAN CORPUSCULAR HEMOGLOBIN 29.5 pg (27.0-33.0); MEAN CORPUSCULAR HGB CONC 33.2 g/dl (32.0-36.5); MEAN CORPUSCULAR VOLUME 88.7 fl (80.0-96.0); MONO # 0.3 K/mm3 (0.0-0.8); MONO % 5.2 % (0.0-5.0); NEUTROPHILS # 3.3 K/mm3 (1.8-7.7); NEUTROPHILS % 66.4 % (36.0-66.0); PLATELET COUNT, AUTOMATED 118 k/mm3 (150-450); RED CELL DISTRIBUTION WIDTH 14.8 % (11.5-14.5)
[2016-07-09 06:58] LABS: ALBUMIN 3.6 GM/DL (3.2-5.2); ALBUMIN/GLOBULIN RATIO 1.13 (1.00-1.93); BILIRUBIN,TOTAL 0.6 MG/DL (0.2-1.0); CALCIUM LEVEL 9.5 MG/DL (8.8-10.2); CREATININE FOR GFR 2.53 MG/DL (0.70-1.30); GLOMERULAR FILTRATION RATE 26.7 (>42); POTASSIUM SERUM 3.4 MEQ/L (3.5-5.1); TOTAL PROTEIN 6.8 GM/DL (6.4-8.2)
[2016-07-09] MEDS: HumaLOG INSULIN (NovoLOG) PER UNIT SC SCH ×4 (08:47→21:28)
[2016-07-09] MEDS: ISOSORBIDE MONONITRATE 10MG TABLET PO SCH ×2 (08:48→17:14)
[2016-07-09] MEDS: APIXABAN 5 MG TAB (ELIQUIS) PO SCH ×2 (08:49→21:30)
[2016-07-09] MEDS: OMEPRAZOLE 20 MG CAP PO SCH (08:49)
[2016-07-09] MEDS: ACETAMINOPHEN 500 MG TAB PO SCH ×2 (08:49→21:31)
[2016-07-09] MEDS: ALLOPURINOL 300 MG TAB PO SCH (08:49)
[2016-07-09] MEDS: amLODIPine 10 MG TAB PO SCH (08:50)
[2016-07-09] MEDS: CARVedilol 12.5 MG TAB PO SCH ×2 (08:51→21:30)
[2016-07-09] MEDS: SIMETHICONE 80 MG CHEW TAB PO SCH ×2 (08:52→21:28)
[2016-07-09] MEDS: LIDOCAINE 5% (LIDODERM) PATCH TD SCH (08:53)
--- NOTE | 2016-07-09 11:40 | IPNPDOC ---
Subjective Date Seen The patient was seen on 07/09/16. Subjective Chief Complaint/HPI The patient is a 71-year-old male admitted with a reason for visit of TIA. Events since last encounter pt seen and examined, state he still gets dizzy when ambulating, no chest pain or shortness of breath, no palpitations, no other symptoms Constitutional: Denies: Chills, Fever, Night Sweats Objective Physical Examination General Exam: Positive: Alert, Cooperative, No Acute Distress Eye Exam: Positive: PERRLA, Conjunctiva & lids normal, EOMI, Negative: Sclera icteric ENT Exam: Positive: Atraumatic, Mucous membr. moist/pink, Pharynx Normal Neck Exam: Positive: Supple, Negative: JVD, thyromegaly Chest Exam: Positive: Clear to auscultation, Normal air movement Heart Exam: Positive: Rate Normal, Regular Rhythm, Normal S1, Normal S2, Negative: Murmurs, Rubs Telemetry: Positive: No significant arrhythmia Abdomen Exam: Positive: Normal bowel sounds, Soft, Negative: Tenderness, Hepatospenomegaly Extremity Exam: Positive: Normal pulses, Negative: Clubbing, Cyanosis, Edema Skin Exam: Positive: Nl turgor and temperature, Lesion (left leg reddish tender nodular swelling), Negative: Breakdown Assessment /Plan Problems (1) [id number] kidney injury Problem Text: * IV lasix was discontinued yesterday * will consult Dr muñoz (2) Hypertensive urgency Status: Resolved Problem Text: pheochromocytomas workup pending BP is controlled (3) Acute on chronic diastolic CHF (congestive heart failure) Status: Resolved Problem Text: * pt required IV lasix for fluid overload * IV lasix was discontinued * chf exacerbation resolve, (4) Neurocardiogenic pre-syncope Status: Acute Response to Treatment: Improving Problem Text: possibly related to paroxysmal a fib , orthostatic hypotension and mild dehydration due to diarrhea at home , poor oral intake while he was on the clinadycin and prednisone. BPPV evaluation was negative. (5) Paroxysmal a-fib Status: Resolved Problem Text: Had afib/ flutter in 2009 and had ablation then has recurred now again. does not want coumadin , wants to take eliquis said will be able to afford the copay. (6) Cellulitis of left lower extremity Status: Resolved Problem Text: Looks like a subcutaneous hematoma which is organized was probably infected. finished course of cefdinir. (7) Gout Status: Chronic (8) CAD (coronary artery disease) Status: Chronic Problem Text: s/p NSTEMI in 1999 and inferior wall ami in 2001. s/p multiple stents in LAD, LCA and RCA and had CABG in 2006 at [facility]. (9) Hyperlipidemia Status: Chronic (10) Hypothyroidism Status: Chronic (11) Osteoarthritis Status: Chronic (12) GERD (gastroesophageal reflux disease) Status: Chronic (13) Chronic kidney disease (CKD), stage III (moderate) Status: Chronic Response to Treatment: Stable Problem Text: baseline creatinine around 1.8 to 2.0 (14) S/p nephrectomy Status: Chronic (15) Adrenal nodule Status: Chronic Problem Text: present since 2006 on the right will check for pheochromocytoma. (16) Cervical spinal stenosis Status: Chronic (17) Hypertension Status: Chronic (18) Diabetes Status: Chronic (19) Diastolic CHF Status: Chronic Plan/VTE VTE Prophylaxis Ordered?: Yes VS, I&O, 24H, Fishbone Vital Signs/I&O Vital Signs Date Time Temp Pulse Resp B/P (MAP) Pulse Ox O2 Delivery O2 Flow Rate FiO2 07/09/16 08:51 68 153/70 07/09/16 06:00 99.0 20 93 07/08/16 20:14 Room Air 07/04/16 16:00 2.0 I&O- Last 24 Hours up to 6 AM 07/09/16 06:00 Intake Total 1020 ml Output Total 1925 ml Balance -905 ml Laboratory Data 24H LABS Laboratory Tests 2 07/08/16 11:40: Bedside Glucose (Misc Panel) 218H 07/08/16 16:33: Bedside Glucose (Misc Panel) 113H 07/08/16 20:25: Bedside Glucose (Misc Panel) 153H 07/09/16 06:14: White Blood Count 5.0, Red Blood Count 3.64L, Hemoglobin 10.7L, Hematocrit 32.3L , Mean Corpuscular Volume 88.7, Mean Corpuscular Hemoglobin 29.5, Mean Corpuscular Hemoglobin Concent 33.2, Red Cell Distribution Width 14.8H, Platelet Count 118L, Neutrophils (%) (Auto) 66.4H, Lymphocytes (%) (Auto) 22.9L , Monocytes (%) (Auto) 5.2H, Eosinophils (%) (Auto) 3.3H, Basophils (%) (Auto) 0.4, Neutrophils # (Auto) 3.3, Lymphocytes # (Auto) 1.2L, Monocytes # (Auto) 0.3 , Eosinophils # (Auto) 0.2, Basophils # (Auto) 0.0, Large Unclassified Cells % 1.8, Large Unclassified Cells # 0.1, Anion Gap 9, Glomerular Filtration Rate 26.7L, Blood Urea Nitrogen 81H, Creatinine 2.53H, Sodium Level 141, Potassium Level 3.4L, Chloride Level 105, Carbon Dioxide Level 27, Calcium Level 9.5, Aspartate Amino Transf (AST/SGOT) 18, Alanine Aminotransferase (ALT/SGPT) 34, Alkaline Phosphatase 67, Total Bilirubin 0.6, Total Protein 6.8, Albumin 3.6, Albumin/Globulin Ratio 1.13 CBC/BMP Laboratory Tests 07/09/16 06:14 Red Blood Count 3.64 L, Mean Corpuscular Volume 88.7, Mean Corpuscular Hemoglobin 29.5, Mean Corpuscular Hemoglobin Concent 33.2, Red Cell Distribution Width 14.8 H, Neutrophils (%) (Auto) 66.4 H, Lymphocytes (%) (Auto ) 22.9 L, Monocytes (%) (Auto) 5.2 H, Eosinophils (%) (Auto) 3.3 H, Basophils (% ) (Auto) 0.4, Neutrophils # (Auto) 3.3, Lymphocytes # (Auto) 1.2 L, Monocytes # (Auto) 0.3, Eosinophils # (Auto) 0.2, Basophils # (Auto) 0.0, Calcium Level 9.5 , Aspartate Amino Transf (AST/SGOT) 18, Alanine Aminotransferase (ALT/SGPT) 34, Alkaline Phosphatase 67, Total Bilirubin 0.6, Total Protein 6.8, Albumin 3.6 Microbiology Microbiology 06/30/16 Blood Culture - Final, Complete NO GROWTH AFTER 5 DAYS 06/30/16 Blood Culture - Final, Complete NO GROWTH AFTER 5 DAYS 07/03/16 Urine Culture - Final, Complete TIFFANI JAVIER DO Jul 09, 2016 11:40
[2016-07-09 14:00] VITALS: BP 118/57
[2016-07-09] MEDS ORDERED: POTASSIUM CHLORIDE 10 MEQ SR TABLET PO ONE (17:45)
--- NOTE | 2016-07-09 20:31 | CR ---
DATE OF CONSULTATION: 07/09/2016 Nephrology consultation for Jose Lin D.O. REASON FOR CONSULTATION: Acute renal failure and uncontrolled hypertension. HISTORY OF PRESENT ILLNESS: Mr. Willson is very well-known to me from prior encounters. He has known history of difficult to control hypertension, diabetes, stage III of chronic kidney disease, diastolic congestive heart failure, coronary artery disease, history of gout and hypercholesterolemia. He had left-sided nephrectomy several years ago due to renal cell carcinoma. Past surgical history is significant for coronary artery bypass surgery, left nephrectomy, cholecystectomy, tonsillectomy, appendectomy. MEDICATIONS: Current medications in the hospital include: Coreg 12.5 mg twice a day, Eliquis 10 mg twice a day, Antivert 12.5 mg as needed for dizziness, Lidoderm patch once a day, Zofran as needed for nausea, allopurinol 300 mg daily, amlodipine 10 mg daily, omeprazole 20 mg daily, Synthroid 75 mcg daily, Humalog insulin per sliding scale, Lipitor 40 mg daily, Xalatan eye drops 0.005% both eyes at bedtime, Diovan 320 mg daily, Colace 100 mg twice a day, isosorbide 10 mg twice a day, and Sensipar 30 mg twice a week. ALLERGIES: The patient has multiple intolerance and allergies in his chart. PERSONAL AND SOCIAL HISTORY: The patient does not smoke or drink. He has no history of drug use. FAMILY HISTORY: Negative for kidney cancer or end-stage renal disease. REVIEW OF SYSTEMS: The patient is generally feeling well. He denies any fever or chills. Head and neck is negative for headache, sinus problems or nosebleed. Cardiovascular system is negative for dyspnea or chest pain. He denies any leg edema. Respiratory system negative for cough or hemoptysis. Gastrointestinal (GI) system is negative for nausea, vomiting or diarrhea. Genitourinary () system is negative for dysuria or hematuria. Musculoskeletal system is significant for chronic degenerative arthritis. Endocrine system is significant for hypothyroidism and secondary hyperparathyroidism. Psychosocial system is significant for anxiety. Neurological system negative for seizures or stroke. Hematological system negative for bleeding or bruising. He has been on chronic anticoagulation. PHYSICAL EXAMINATION: The patient is awake and alert at the time of my visit. Temperature 98 degrees Fahrenheit, heart rate 60 per minute and respiratory rate 18 per minute. Blood pressure 153/70 mmHg and oxygen saturation 98% on room air. Head is atraumatic. Neck is supple and without jugular venous distention (JVD) or thyroid enlargement. Ears, nose and throat are unremarkable. Pupils are equal and reactive to light and sclerae is anicteric. Heart sounds are regular and lungs clear to auscultation. Abdomen soft and nontender. There is no palpable organomegaly and bowel sounds are normal. Extremities have no cyanosis or clubbing. Skin has no rash or ulcers. Neurologically he is awake, alert and oriented times three. LABORATORY DATA: Today's labs show WBC count 5.0, hemoglobin 10.7 and hematocrit 32.3. Sodium 141 and potassium 3.4. BUN 81 and creatinine 2.53. On 07/06/2016, his BUN was 71 and creatinine 2.32. On admission, his BUN was 77 and creatinine 1.90. PROBLEMS: 1. Acute renal failure superimposed on chronic kidney disease. Most likely this is related to aggressive diuresis and negative fluid balance while the patient is also on ARB therapy. At present his diuretic is on hold. I would encourage increased oral intake for next 24 hours and recheck his kidney function. Should his kidney function not improve then we will order a renal ultrasound. At this point he does not seem to have any symptoms suggestive of obstructive uropathy. 2. Hypokalemia, again this is most likely related to diuretic use. Please replace his potassium with oral potassium chloride 40 mEq and recheck electrolytes tomorrow morning. 3. Hypertension. The patient has historically difficult to control hypertension. However it seems to be reasonable at present. I will not stop his Diovan, beta david or nitrates at present. His diuretics have been put on hold, which is appropriate. We will adjust his medications in next 24 hours if needed. 4. Congestive heart failure. The patient does have history of diastolic congestive heart failure. However he seems to be over diuresed at present. Will continue to hold diuretics and increase his oral fluid intake. I thank you for involving me in the care of Mr. Willson. I will follow him along with you.
[2016-07-09] MEDS: **NOTE PATIENT COMMENT** MISC XX SCH (21:00)
[2016-07-09] MEDS: ATORVASTATIN 20 MG TAB PO SCH (21:28)
[2016-07-09] MEDS: VALSARTAN 80 MG TAB (DIOVAN) PO SCH (21:29)
[2016-07-09] MEDS: LATANOPROST 0.005% OPHTH SOLN 2.5 ML OU SCH (21:31)
[2016-07-09] MEDS: DOCUSATE SODIUM 100 MG CAP PO PRN (21:42)
[2016-07-09 22:00] VITALS: BP 134/70
[2016-07-10 00:06] LABS: DOPAMINE PLASMA 38 pg/mL (0-48); EPINEPHRINE PLASMA 43 pg/mL (0-62); NOREPINEPHRINE PLASMA 1025 pg/mL (0-874)
[2016-07-10 01:25] VITALS: BP 163/77
[2016-07-10 01:35] VITALS: BP 154/70
[2016-07-10] MEDS: SLF 3 ML SYR IV SCH ×2 (05:42→12:20)
[2016-07-10] MEDS: LEVOTHYROXINE 0.075 MG TAB (75 MCG) PO SCH (05:42)
[2016-07-10 05:46] VITALS: BP 132/74
[2016-07-10 06:00] VITALS: BP 149/77
[2016-07-10 07:01] LABS: MEAN CORPUSCULAR HEMOGLOBIN 30.1 pg (27.0-33.0); MEAN CORPUSCULAR HGB CONC 33.6 g/dl (32.0-36.5); MEAN CORPUSCULAR VOLUME 89.6 fl (80.0-96.0); RED CELL DISTRIBUTION WIDTH 14.9 % (11.5-14.5); WHITE BLOOD COUNT 5.2 K/mm3 (4.0-10.0)
[2016-07-10 07:10] LABS: ALBUMIN 3.1 GM/DL (3.2-5.2); CREATININE FOR GFR 2.28 MG/DL (0.70-1.30); GLOMERULAR FILTRATION RATE 30.1 (>42); PHOSPHORUS LEVEL 3.2 MG/DL (2.5-4.9); POTASSIUM SERUM 4.1 MEQ/L (3.5-5.1)
[2016-07-10] MEDS: LIDOCAINE 5% (LIDODERM) PATCH TD SCH (08:26)
[2016-07-10] MEDS: CARVedilol 12.5 MG TAB PO SCH (08:26)
[2016-07-10 08:27] VITALS: BP 149/77
[2016-07-10] MEDS: ISOSORBIDE MONONITRATE 10MG TABLET PO SCH (08:27)
[2016-07-10] MEDS: SIMETHICONE 80 MG CHEW TAB PO SCH (08:27)
[2016-07-10] MEDS: amLODIPine 10 MG TAB PO SCH (08:27)
[2016-07-10] MEDS: ACETAMINOPHEN 500 MG TAB PO SCH (08:28)
[2016-07-10] MEDS: ALLOPURINOL 300 MG TAB PO SCH (08:28)
[2016-07-10] MEDS: OMEPRAZOLE 20 MG CAP PO SCH (08:28)
[2016-07-10] MEDS: APIXABAN 5 MG TAB (ELIQUIS) PO SCH (08:28)
[2016-07-10] MEDS: HumaLOG INSULIN (NovoLOG) PER UNIT SC SCH ×2 (08:29→12:18)
[2016-07-10] MEDS ORDERED: CARV12.5 PO (10:33)
[2016-07-10] MEDS ORDERED: ELIQ5TAB PO (10:34)
[2016-07-10 14:16] LABS: DOPAMINE 137 ug/24 hr (0-510); EPINEPHRINE < 4 ug/24 hr (0-20); METANEPHRINE URINE 133 ug/24 hr (45-290); NOREPINEPHRINE 56 ug/24 hr (0-135); NOREPINEPHRINE TOTAL URINE 15 ug/L (Undefined); NORMETANEPHRINE URINE 773 ug/24 hr (82-500)
--- NOTE | 2016-07-11 07:26 | ECGEPIP ---
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
== END 2016-07-10 13:02 | disposition home or self-care (01) | DRG 308 ==
LOC: EDBD 10:50 → M ED 11:36 → M ED INP 18:20 → M PCU 20:48 → M MS5PR 07-03 15:19 → M PCU 07-04 15:11 → M MSPAV 07-07 17:56
PROVIDERS: ADMIT Internal Medicine; ATTEND Internal Medicine
DX: I48.0 Paroxysmal atrial fibrillation (principal); I50.33 Acute on chronic diastolic (congestive) heart failure; I13.0 Hypertensive heart and chronic kidney disease with heart failure and stage 1 through stage 4 chronic kidney disease, or unspecified chronic kidney disease; N17.9 Acute kidney failure, unspecified; N25.81 Secondary hyperparathyroidism of renal origin; E11.9 Type 2 diabetes mellitus without complications; I25.2 Old myocardial infarction; N18.3 Chronic kidney disease, stage 3 (moderate); I25.10 Atherosclerotic heart disease of native coronary artery without angina pectoris; M10.9 Gout, unspecified; I95.1 Orthostatic hypotension; M19.90 Unspecified osteoarthritis, unspecified site; F41.9 Anxiety disorder, unspecified; I16.0 Hypertensive urgency; M48.02 Spinal stenosis, cervical region; R19.7 Diarrhea, unspecified; Z95.1 Presence of aortocoronary bypass graft; Z85.528 Personal history of other malignant neoplasm of kidney; Z90.5 Acquired absence of kidney; Z88.0 Allergy status to penicillin; Z88.2 Allergy status to sulfonamides; Z88.1 Allergy status to other antibiotic agents; Z91.041 Radiographic dye allergy status; Z79.891 Long term (current) use of opiate analgesic; Z79.02 Long term (current) use of antithrombotics/antiplatelets; Z79.4 Long term (current) use of insulin; Z79.84 Long term (current) use of oral hypoglycemic drugs; Z79.899 Other long term (current) drug therapy

== ENCOUNTER 2016-07-22 14:52 | Inpatient (IN) | payer OTHER ==
[~2016-07-22] VITALS: Ht 185.4 cm; Wt 95.2 kg
[~2016-07-22 14:52] MED LIST changes: +CLIN1CAP5 PO; +ELIQ5TAB PO; +HYDR25TAB PO
[2016-07-22] MEDS ORDERED: MORPHINE 2 MG/ML 1ML SYRINGE IV ONE (15:30)
[2016-07-22 15:34] LABS: BASO % 0.6 % (0.0-1.0); EOS # 0.2 K/mm3 (0.0-0.50); EOS % 3.7 % (0.0-3.0); LARGE UNSTAINED CELL # 0.2 K/mm3 (0.0-0.4); LARGE UNSTAINED CELL % 2.6 % (0.0-4.0); LYMPH % 18.2 % (24.0-44.0); MEAN CORPUSCULAR HEMOGLOBIN 31.1 pg (27.0-33.0); MEAN CORPUSCULAR HGB CONC 34.1 g/dl (32.0-36.5); MEAN CORPUSCULAR VOLUME 91.5 fl (80.0-96.0); MONO # 0.2 K/mm3 (0.0-0.8); NEUTROPHILS # 4.1 K/mm3 (1.8-7.7); NEUTROPHILS % 70.9 % (36.0-66.0); PLATELET COUNT, AUTOMATED 173 k/mm3 (150-450); RED CELL DISTRIBUTION WIDTH 15.4 % (11.5-14.5); WHITE BLOOD COUNT 5.7 K/mm3 (4.0-10.0)
[2016-07-22 15:52] LABS: ALBUMIN 3.5 GM/DL (3.2-5.2); ALBUMIN/GLOBULIN RATIO 1.21 (1.00-1.93); ALKALINE PHOSPHATASE 71 U/L (45-117); ALT/SGPT 30 U/L (12-78); ANION GAP 8 MEQ/L (8-16); AST/SGOT 15 U/L (15-37); BILIRUBIN,DIRECT 0.1 MG/DL (0.0-0.2); BILIRUBIN,TOTAL 0.6 MG/DL (0.2-1.0); BLOOD UREA NITROGEN 65 MG/DL (7-18); CARBON DIOXIDE LEVEL 26 MEQ/L (21-32); CHLORIDE LEVEL 105 MEQ/L (98-107); CREATININE FOR GFR 1.89 MG/DL (0.70-1.30); GLOMERULAR FILTRATION RATE 37.4 (>42); GLUCOSE, FASTING 167 MG/DL (83-110); POTASSIUM SERUM 4.3 MEQ/L (3.5-5.1); SODIUM LEVEL 139 MEQ/L (136-145); TOTAL PROTEIN 6.4 GM/DL (6.4-8.2)
--- NOTE | 2016-07-22 15:54 | REP ---
Chest pain. COMPARISON: The latest 06/30/2016. The technique utilized in obtaining the radiograph has magnified the cardiac silhouette and accentuated the interstitial markings. There is global cardiomegaly status quo. There has been previous median sternotomy status quo. There is no significant change in the appearance of the lung davis. No acute patchy parenchymal opacities or pleural effusions have developed. There is no change in the osseous structures. IMPRESSION: Cardiomegaly but no significant change from the prior exam and no plain radiographic evidence of acute cardiopulmonary disease. Signed by José Guy DO 07/22/2016 04:18 P
[2016-07-22] MEDS ORDERED: MORPHINE 4 MG/ML 1ML SYRINGE As Ordered ONE (16:21)
[2016-07-22] MEDS ORDERED: ONDANSETRON 4MG/2ML VIAL (J2405) As Ordered ONE (16:21)
[2016-07-22] MEDS ORDERED: MORPHINE 4 MG/ML 1ML SYRINGE IV ONE (16:30)
[2016-07-22] MEDS ORDERED: ONDANSETRON 4MG/2ML VIAL (J2405) IV ONE (16:30)
[2016-07-22] MEDS ORDERED: GLUCOSE 4 GM CHEW TABLET PO PRN (19:00)
[2016-07-22] MEDS ORDERED: DEXTROSE 50% 50 ML SYRINGE IV PRN (19:00)
[2016-07-22] MEDS ORDERED: NITROGLYCERIN 0.4 MG SUBL TABLET SL PRN (19:00)
[2016-07-22] MEDS ORDERED: GLUCAGON FOR INJ 1 MG VIAL (J1610) SC PRN (19:00)
[2016-07-22] MEDS ORDERED: ONDANSETRON 4MG/2ML VIAL (J2405) IV PRN (19:00)
[2016-07-22] MEDS ORDERED: CYCL10TA PO (19:06)
[2016-07-22] MEDS ORDERED: CARV12.5 PO (19:06)
[2016-07-22] MEDS ORDERED: ELIQ5TAB PO (19:06)
[2016-07-22 20:20] VITALS: BP 156/67
--- NOTE | 2016-07-22 20:25 | ECGEPIP ---
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
[2016-07-22] MEDS ORDERED: **NOTE PATIENT COMMENT** MISC XX PRN (21:00)
[2016-07-22] MEDS: HumaLOG INSULIN (NovoLOG) PER UNIT SC SCH (21:00)
[2016-07-22] MEDS: ATORVASTATIN 20 MG TAB PO SCH (22:37)
[2016-07-22] MEDS: POTASSIUM CHLORIDE 10 MEQ SR TABLET PO SCH (22:37)
[2016-07-22] MEDS: LEVEMIR (INSULIN DETEMIR) 1 UNITS/0.01ML SC SCH (22:37)
[2016-07-22] MEDS: APIXABAN 5 MG TAB (ELIQUIS) PO SCH (22:38)
[2016-07-22] MEDS: LATANOPROST 0.005% OPHTH SOLN 2.5 ML OU SCH (22:39)
[2016-07-22] MEDS: VALSARTAN 80 MG TAB (DIOVAN) PO SCH (22:39)
[2016-07-23] VITALS (7 sets, daily range): BP systolic 125–159; BP diastolic 60–85
--- NOTE | 2016-07-23 02:00 | HPE ---
DATE OF ADMISSION: 07/22/2016 PRIMARY CARE PROVIDER: Sebastian Gaitan FIRE DEPARTMENT BATTALION CHIEF: Dr. Jason Johnson INDUSTRIAL EQUIPMENT MECHANIC: Dr. Joseph Wilson CHIEF COMPLAINT: Lightheadedness, dizziness, flushed feeling. HISTORY OF PRESENT ILLNESS: Mr. Willson is a 71-year-old male with past medical history significant for atrial flutter status post radiofrequency ablation about 7 years ago, coronary artery disease status post coronary artery bypass graft (CABG), paroxysmal atrial fibrillation, hypertension, chronic kidney disease, stage III, diastolic heart failure, diabetes, hypercholesterolemia, left kidney cancer, gout, osteoarthritis who was recently admitted from June 30 through July 10 with acute on chronic kidney disease, hypertensive urgency, and acute on chronic diastolic heart failure. The patient had complained of similar episodes during that admission, but he reports that his symptoms this time around were much worse. He reports feeling well and "on top of the world" upon hospital discharge. Reports that starting today around 1-2 p.m., while he was standing up fixing his lunch, he started to feel flushed, lightheaded, dizzy, and could not focus. He immediately took a seat and checked his blood sugars. He reports that his blood sugar was 130. He reports that he also had time to check his blood pressure, which he reports was 115/45 with a pulse rate of 44. He states that the symptoms improved after sitting for awhile, but then he stood up once again to go to the bathroom and developed similar symptoms, but they were much worse. During the second episode of feeling like he wanted to pass out, he also developed tightness across his chest. He denies any radiation to the neck or the arms. He reports that each episode occurred only after a few minutes of trying to ambulate. He is currently on carvedilol 12.5 mg twice a day, which was recently increased from 6.25 mg twice a day since hospital discharge. There are currently holding parameters for a systolic blood pressure less than 140 and heart rate less than 60. The patient reports that he took it maybe six times since his discharge, but primarily due to the blood pressure parameter. He reports that he was told to be on a 2000 mL fluid restriction, and he has been compliant with that. No weight gain. Has been eating and drinking as normal. He also reported headache, floaters, nausea, and shortness of breath during these two episodes. No emesis, abdominal pain, diarrhea, constipation, hematochezia, melena, urinary complaints. No orthopnea, paroxysmal nocturnal dyspnea, or increased lower extremity edema. He does have some residual left lower extremity edema secondary to resolving cellulitis. No leg or calf pain. He denies any paresthesias or focal weakness. It was reported that his heart rate decreased to as low as the high 30s during transport to the emergency department. He had an EKG done in the emergency room (ER), which revealed a heart rate of 59, sinus bradycardia with first-degree atrioventricular (AV) block, old anterior myocardial infarction (LA), nonspecific ST-T-wave abnormalities. In the ER he was given morphine for pain, Zofran for nausea, and hospitalist was subsequently called to admit. PAST MEDICAL HISTORY: 1. Remote history of atrial fibrillation status post radiofrequency ablation 7 years ago. 2. Paroxysmal atrial fibrillation. 3. Coronary artery disease, status post CABG. 4. Chronic kidney disease, stage IIIB. 5. Diastolic heart failure. 6. Hypertension. 7. Hyperlipidemia. 8. Type 2 diabetes. 9. History of hypertensive urgency. 10. History of acute renal failure. 11. Hypothyroidism. 12. Gastroesophageal reflux disease (GERD). 13. History of adrenal nodule. 14. History of recent cellulitis. 15. History of renal cancer 17 years ago. 16. Gout. 17. Osteoarthritis. 18. Cervical spinal stenosis. 19. Hypothyroidism. PAST SURGICAL HISTORY: 1. CABG in 2006. 2. Radiofrequency ablation about 7 years ago. 3. Left nephrectomy. 4. Cholecystectomy. 5. Tonsillectomy. 6. Appendectomy. HOME MEDICATIONS: - carvedilol 12.5 mg twice daily - Norvasc 10 mg by mouth daily - furosemide 80 mg by mouth twice daily - hydrochlorothiazide 12.5 mg by mouth daily as needed - isosorbide mononitrate 10 mg by mouth twice daily - valsartan 320 mg by mouth at night - aspirin 81 mg daily - Eliquis 5 mg by mouth twice daily - allopurinol 300 mg by mouth daily - Mylanta 10 mL by mouth as needed - atorvastatin 40 mg by mouth at night - Sensipar 30 mg by mouth twice a week - Plavix 75 mg by mouth daily - Colace 100 mg by mouth twice daily as needed - glimepiride 4 mg by mouth twice daily - Lispro sliding scale - Lantus 50 units at night - Xalatan one drop in each eye at night - levothyroxine 75 mcg by mouth daily - lidocaine patch daily as needed - multivitamin one tablet by mouth daily - nitroglycerin 0.4 mg sublingual as needed - omeprazole 20 mg by mouth daily - potassium chloride 20 mEq by mouth twice daily - vitamin D 50,000 units by mouth monthly ALLERGIES: 1. Contrast media, redness of his skin. 2. PENICILLIN, itching and rash. 3. ERYTHROMYCIN, nausea and vomiting. 4. TETRACYCLINE, itching and pruritus. 5. SULFA DRUGS, reaction unknown. SOCIAL HISTORY: The patient is a nonsmoker. Denies any alcohol or illicit drug use. Currently lives alone. No pets in the home. 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 No recent travel. FAMILY HISTORY: Father from stomach cancer. Mother with history of thyroid disease and from heart problems in her 90s. REVIEW OF SYSTEMS: As per history of present illness (HPI). All other 12-point review of systems were reviewed and unremarkable. PHYSICAL EXAMINATION: VITAL SIGNS: Pulse ranged from 56-59 and regular, respiratory rate 16, blood pressure 148/63, pulse oximetry 100% on room air. GENERAL: The patient is alert and oriented in no acute distress. HEENT: Normocephalic and atraumatic. Extraocular muscles are intact. Pupils are equally round and reactive to light. No scleral icterus. NECK: Supple. No cervical lymphadenopathy. No thyromegaly. Trachea midline. No jugular venous distension appreciated. CHEST: Symmetric with no use of accessory muscles. HEART: Normal S1, S2, bradycardic. No murmur appreciated. LUNGS: Clear to auscultation bilaterally. No rales, rhonchi, or wheezing. ABDOMEN: Soft, nontender, nondistended. Positive bowel sounds. No rebound, guarding, or rigidity. EXTREMITIES: Minimal left lower extremity edema from resolving cellulitis. No cyanosis. Positive pedal pulses bilaterally. SKIN: Warm and dry. No rashes noted. NEUROLOGIC: No focal deficits. Cranial nerves: II through XII are grossly intact. Motor and sensation intact. LABORATORY DATA: WBC 5.7, hemoglobin 11.9, hematocrit 35.0, platelet count 173. Sodium 139, potassium 4.3, chloride 105, carbon dioxide 26, anion gap 8, BUN 65, creatinine 1.89, GFR 37.4, fasting glucose 167, calcium 9.0. Total bilirubin 0.6 , direct bilirubin 0.1, AST 15, ALT 30, alkaline phosphatase 71, total creatine kinase 102, CK-MB 1.0, troponin less than 0.02. Brain natriuretic peptide 145. Total protein 6.4, albumin 3.5, lipase 224. D-dimer 294.9. IMAGING STUDIES: Chest x-ray: Cardiomegaly without any acute cardiopulmonary process. ASSESSMENT AND PLAN: 1. Presyncope. The patient will be admitted to telemetry for closer monitoring. Will hold his Coreg for today and consider restarting at a minimal dose tomorrow. Will check orthostatic vital signs. He had an echo done on 07/01 whuch revealed grade 2 diastolic dysfunction, EF 65%, trace/mild insufficiency, no significant valvular disease. 2. Symptomatic bradycardia, likely causing his prodromal symptoms. Will hold his Coreg. Monitor for recurrence of symptoms. 3. Chest pain. Will cycle cardiac markers. Chest pain occurred at the same time of his other symptoms. He does have significant coronary artery disease status post coronary artery bypass graft (CABG). Continue with aspirin, Plavix , and statin therapy. Will need to also be on beta david at lowest a effective dose. 4. History of paroxysmal atrial fibrillation. He is currently in sinus rhythm. Rate is bradycardic. Will continue his Eliquis. 5. Chronic kidney disease, stage IIIB. Renal function is close to baseline. Continue to monitor. 6. History of diastolic heart failure. He appears compensated at this time. Continue with Lasix and monitor for worsening renal function. Electrolytes are stable. 7. Hypertension. Continue with his other blood pressure medications, which include amlodipine, Imdur, Lasix, and valsartan. 8. Hypothyroidism. Continue with Levoxyl. 9. Gastroesophageal reflux disease (GERD). Continue with omeprazole. 10. Hyperlipidemia. Continue with atorvastatin. 11. Diabetes. Continue with insulin. Sliding scale per protocol. Consistent carbohydrate diet. 12. Gout. Continue allopurinol. 13. Osteoarthritis. Tylenol as needed. 14. History of renal cancer status post left nephrectomy. 15. History of cellulitis. This appears to have almost resolved. Looks like his left lower extremity is slightly larger than the right. D-dimer was negative. 16. Code status. The patient is full code. Patient will be admitted to telemetry floor, observation status. Dr. Lin to take over his care in the morning. My preceptor for this patient encounter was Dr. Jenny Jimenez. The preceptor was physically present in the building during the encounter and was fully available as needed. All aspects of the patient interview, examination, medical decision making process, and medical care plan development were reviewed and approved by the preceptor. The preceptor is aware and concurs with the plan as stated in the body of this note and will attest to such by his/her co-signature. KAIDEN
[2016-07-23] MEDS: LEVOTHYROXINE 0.075 MG TAB (75 MCG) PO SCH (05:04)
[2016-07-23 05:16] LABS: MEAN CORPUSCULAR HEMOGLOBIN 30.1 pg (27.0-33.0); MEAN CORPUSCULAR HGB CONC 32.7 g/dl (32.0-36.5); MEAN CORPUSCULAR VOLUME 92.2 fl (80.0-96.0); RED CELL DISTRIBUTION WIDTH 15.3 % (11.5-14.5); WHITE BLOOD COUNT 4.9 K/mm3 (4.0-10.0)
[2016-07-23 05:32] LABS: ANION GAP 7 MEQ/L (8-16); BLOOD UREA NITROGEN 58 MG/DL (7-18); CALCIUM LEVEL 9.3 MG/DL (8.8-10.2); CARBON DIOXIDE LEVEL 27 MEQ/L (21-32); CHLORIDE LEVEL 109 MEQ/L (98-107); CREATININE FOR GFR 1.72 MG/DL (0.70-1.30); GLOMERULAR FILTRATION RATE 41.7 (>42); GLUCOSE, FASTING 74 MG/DL (83-110); MAGNESIUM LEVEL 2.6 MG/DL (1.8-2.4); POTASSIUM SERUM 3.8 MEQ/L (3.5-5.1); SODIUM LEVEL 143 MEQ/L (136-145)
[2016-07-23] MEDS: HumaLOG INSULIN (NovoLOG) PER UNIT SC SCH ×4 (07:29→20:17)
[2016-07-23] MEDS: POTASSIUM CHLORIDE 10 MEQ SR TABLET PO SCH ×2 (08:57→20:26)
[2016-07-23] MEDS: ALLOPURINOL 300 MG TAB PO SCH (08:57)
[2016-07-23] MEDS: BISACODYL 5 MG TAB PO PRN (08:57)
[2016-07-23] MEDS: OMEPRAZOLE 20 MG CAP PO SCH (08:57)
[2016-07-23] MEDS: APIXABAN 5 MG TAB (ELIQUIS) PO SCH ×2 (08:57→20:26)
[2016-07-23] MEDS: ISOSORBIDE MONONITRATE 10MG TABLET PO SCH ×2 (08:57→15:24)
[2016-07-23] MEDS: FUROSEMIDE 80 MG TAB PO SCH ×2 (08:57→17:17)
[2016-07-23] MEDS: ASPIRIN 81 MG ENTERIC TAB PO SCH (08:57)
[2016-07-23] MEDS: amLODIPine 10 MG TAB PO SCH (08:58)
[2016-07-23] MEDS ORDERED: CLOPIDOGREL 75 MG TAB PO SCH (09:00)
--- NOTE | 2016-07-23 11:42 | IPN ---
DATE OF SERVICE: 07/23/2016 SUBJECTIVE: Mr. Willson was seen this morning at bedside. He reports that this morning when he tried to ambulate to the bathroom he became dizzy once again. States that his chest pain has significantly improved. He denies any increased shortness of breath. No nausea, vomiting, abdominal pain or diarrhea. He did complain of some soreness of his right groin area. He had some episodes of bradycardia overnight and an episode of a 4 beat run of ventricular tachycardia (V-TACH). OBJECTIVE: Vital signs: Temperature 97.5, pulse 110, respiratory rate 22, blood pressure 150/77, pulse oximetry 100% on room air. General: The patient is alert and oriented in no acute distress. HEENT: Normocephalic, atraumatic. Extraocular muscles are intact. Pupils are equally round and reactive to light. No scleral icterus. Moist mucosa. Neck: Supple. No cervical lymphadenopathy or thyromegaly. No jugular venous distention appreciated. Heart: Irregular, pulses currently within normal. No murmur appreciated. Lungs: Clear to auscultation bilaterally. No rales, rhonchi or wheezing. Abdomen: Soft, nontender, nondistended. Positive bowel sounds. Extremities: No cyanosis. Has very minimal edema of the left lower extremity secondary to resolving cellulitis. Positive pedal pulses bilaterally. Skin: Warm and dry. No rashes noted. Neurologic: No focal deficits. Cranial nerves II-XII are intact. Motor and sensation intact. LABORATORY DATA: WBC 4.9, hemoglobin 11.5, hematocrit 35.2, platelet count 171. Sodium 143, potassium 3.8, chloride 109, carbon dioxide 27, anion gap 7, BUN 58, creatinine 1.72, GFR 41.7, fasting glucose 74, calcium 9.3. Magnesium 2.6. Cardiac markers negative times three. ASSESSMENT/PLAN: 1. Symptomatic bradycardia. The patient presented with feelings of lightheadedness, dizziness, flushing, chest pain. During this event, his heart rate was 44. Coreg has been held since admission. Will discontinue this medication. Spoke with Dr. Johnson, who is his form setter supervisor and at this point in time we will monitor his bradycardia and reevaluate once Coreg is completely out of his system. At least 48 hours is needed. Orthostatics were negative. He had an echocardiogram done on 07/01, which revealed grade 2 diastolic dysfunction, ejection fraction (EF) 65%, trace/mild insufficiency. 2. Chest pain. Cardiac markers were negative times three. He does have history of coronary artery disease status post coronary artery bypass graft (CABG). Will continue with aspirin, Plavix and statin therapy. Beta david is being discontinued at this time. Nitroglycerin sublingual as needed. 3. History of paroxysmal atrial fibrillation. Continue with Eliquis. 4. Chronic kidney disease stage III. Renal function is about baseline. 5. History of diastolic heart failure. He appears compensated at this time. Continue with Lasix. Renal function is stable. Electrolytes are stable. 6. Hypertension. Continue blood pressure medication including amlodipine, Imdur, Lasix and valsartan. 7. Hypothyroidism. Continue with Levoxyl. 8. Gastroesophageal reflux disease (GERD). Continue with omeprazole. 9. Hyperlipidemia. Continue atorvastatin. 10. Diabetes. Insulin sliding scale with hypoglycemic protocol, consistent carbohydrate diet. Continue with Levemir 50 units at bedtime. 11. Gout. Continue allopurinol. 12. History of cellulitis. Still has some residual minimal swelling of the left lower extremity. Had a doppler ultrasound when the a few weeks ago when the symptoms started which was negative for DVT. Redness is basically almost resolved. D-dimer done during this admission was negative. No complaints of increased swelling or increased pain. 13. History of renal cell cancer status post left nephrectomy. 14. Deep venous thrombosis (DVT) prophylaxis. The patient is on Eliquis. My preceptor for this patient encounter was Dr. Jose Lin. The preceptor was physically present in the building during the encounter and was fully available as needed. All aspects of the patient interview, examination, medical decision making process, and medical care plan development were reviewed and approved by the preceptor. The preceptor is aware and concurs with the plan as stated in the body of this note and will attest to such by his/her co-signature. KAIDEN
[2016-07-23] MEDS: EUCERIN 120GM CREAM EXT SCH (15:24)
[2016-07-23] MEDS: MUPIROCIN 2% OINT 22 GM TUBE TOP SCH ×2 (15:24→20:29)
[2016-07-23] MEDS: LATANOPROST 0.005% OPHTH SOLN 2.5 ML OU SCH (20:26)
[2016-07-23] MEDS: ATORVASTATIN 20 MG TAB PO SCH (20:26)
[2016-07-23] MEDS: VALSARTAN 80 MG TAB (DIOVAN) PO SCH (20:26)
[2016-07-23] MEDS: LEVEMIR (INSULIN DETEMIR) 1 UNITS/0.01ML SC SCH (20:27)
[2016-07-23] MEDS: LIDOCAINE 5% (LIDODERM) PATCH TD PRN (20:29)
[2016-07-23] MEDS: ACETAMINOPHEN TAB 650MG DOSE (2X325MG) PO PRN (22:56)
[2016-07-23] MEDS ORDERED: DOCUSATE SODIUM 100 MG CAP PO ONE (23:00)
[2016-07-24] VITALS (7 sets, daily range): BP systolic 130–165; BP diastolic 65–84
[2016-07-24 04:56] LABS: MEAN CORPUSCULAR HEMOGLOBIN 30.2 pg (27.0-33.0); MEAN CORPUSCULAR HGB CONC 33.3 g/dl (32.0-36.5); MEAN CORPUSCULAR VOLUME 90.6 fl (80.0-96.0); RED CELL DISTRIBUTION WIDTH 15.4 % (11.5-14.5); WHITE BLOOD COUNT 7.7 K/mm3 (4.0-10.0)
[2016-07-24] MEDS: LEVOTHYROXINE 0.075 MG TAB (75 MCG) PO SCH (05:04)
[2016-07-24 05:16] LABS: CALCIUM LEVEL 9.2 MG/DL (8.8-10.2); CREATININE FOR GFR 1.72 MG/DL (0.70-1.30); GLOMERULAR FILTRATION RATE 41.7 (>42); POTASSIUM SERUM 3.8 MEQ/L (3.5-5.1)
[2016-07-24] MEDS: HumaLOG INSULIN (NovoLOG) PER UNIT SC SCH ×4 (05:49→21:00)
[2016-07-24] MEDS: ISOSORBIDE MONONITRATE 10MG TABLET PO SCH ×2 (08:00→16:06)
[2016-07-24] MEDS: OMEPRAZOLE 20 MG CAP PO SCH (08:00)
[2016-07-24] MEDS: ASPIRIN 81 MG ENTERIC TAB PO SCH (08:03)
[2016-07-24] MEDS: ALLOPURINOL 300 MG TAB PO SCH (08:03)
[2016-07-24] MEDS: POTASSIUM CHLORIDE 10 MEQ SR TABLET PO SCH ×2 (08:03→21:09)
[2016-07-24] MEDS: ACETAMINOPHEN TAB 650MG DOSE (2X325MG) PO PRN ×2 (08:03→13:09)
[2016-07-24] MEDS: APIXABAN 5 MG TAB (ELIQUIS) PO SCH ×2 (08:04→21:11)
[2016-07-24] MEDS: amLODIPine 10 MG TAB PO SCH (08:04)
[2016-07-24] MEDS: FUROSEMIDE 80 MG TAB PO SCH ×2 (08:04→17:56)
[2016-07-24] MEDS: DOCUSATE SODIUM 100 MG CAP PO SCH (08:04)
[2016-07-24] MEDS: EUCERIN 120GM CREAM EXT SCH (13:07)
[2016-07-24] MEDS: MUPIROCIN 2% OINT 22 GM TUBE TOP SCH ×3 (13:08→21:13)
--- NOTE | 2016-07-24 15:48 | IPN ---
DATE: 07/24/2016 SUBJECTIVE: Mr. Willson was seen this morning at bedside. The patient reports that this morning he had some lightheadedness, dizziness and flushing feeling and it was found that his blood sugar was 47. He reports that this is the same feeling he had at home. He is beginning to wonder if it was his blood sugar and not his heart rate that was the problem at home. He denies any increased shortness of breath. Chest tightness has improved. No nausea, vomiting, abdominal pain or diarrhea. He does have some episodes of bradycardia while he is sleeping but none during the day. OBJECTIVE: VITAL SIGNS: Temperature 97.3, pulse 67, respiratory rate 20, blood pressure 147/65, pulse oximetry 96% on room air. GENERAL: The patient is awake and alert. In no acute distress. HEENT: Normocephalic, atraumatic. Extraocular muscles are intact. Pupils are equally round and reactive to light. No scleral icterus. Moist mucosa. NECK: Supple. No cervical lymphadenopathy or thyromegaly. HEART: Irregular, heart rate is within normal. No murmur appreciated. LUNGS: Clear to auscultation bilaterally. No rales, rhonchi or wheezing. ABDOMEN: Soft, nontender, nondistended. Positive bowel sounds. EXTREMITIES: No cyanosis. No significant edema. Positive pedal pulses bilaterally. SKIN: Warm and dry. No rashes noted. NEUROLOGIC: No focal deficits. Cranial nerves II-XII are grossly intact. Moving all extremities. LABORATORY DATA: WBC 7.7, hemoglobin 11.4, hematocrit 34.2, platelet count 184, sodium 144, potassium 3.8, chloride 110, carbon dioxide 27, anion gap 7, BUN 60, creatinine 1.7, GFR 41.7, fasting glucose 47, calcium 9.2. Repeat glucose 157. ASSESSMENT/PLAN: 1. Symptomatic bradycardia. The patient had feelings of lightheadedness, dizziness, flushing and chest tightness. He had these feelings once again. Initially his heart rate was down to 44. However, the patient had episode once again this morning and it was discovered that his blood sugar was 47. For his low heart rate Coreg has been discontinued. Orthostatics were negative. Will continue to monitor his heart rate and blood pressures. Heart rate has been fine during the day. Only had events while sleeping. 2. Chest tightness. This has improved, cardiac markers were negative. Occurs when he has these episodes of lightheadedness and dizziness. He has history of coronary artery disease status post coronary artery bypass graft (CABG). Will continue with aspirin, Plavix and statin therapy. Beta david has been discontinued at this time. Nitroglycerin sublingual as needed. 3. Hypoglycemia in the setting of diabetic on insulin. His insulin has been decreased to 40 units at night. Will monitor his blood sugars. It is possible that his blood sugar was the cause of his initial symptoms. 4. History of paroxysmal atrial fibrillation. Continue with Eliquis. No longer on beta david. This can be resumed if his carport erector chooses to as outpatient. 5. Chronic kidney disease. Renal function is about baseline. 6. History of diastolic heart failure. Appears compensated at this time. Continue with Lasix. Renal function and electrolytes are stable. 7. Hypertension. Blood pressure is stable. Continue with amlodipine, Imdur, Lasix and valsartan. 8. Hypothyroidism. Continue with Levoxyl. 9. Gastroesophageal reflux disease (GERD). Continue with omeprazole. 10. Hyperlipidemia. Continue with atorvastatin. 11. Gout. Continue allopurinol. 12. Deep venous thrombosis (DVT) prophylaxis. The patient is on Eliquis. My preceptor for this patient encounter was Dr. Jose Lin. The preceptor was physically present in the building during the encounter and was fully available. As needed, all aspects of the patient interview, examination, medical decision making process, and medical care plan development were reviewed and approved by the preceptor. The preceptor is aware and concurs with the plan as stated in the body of this note and will attest to such by her cosignature.
[2016-07-24] MEDS: ATORVASTATIN 20 MG TAB PO SCH (21:05)
[2016-07-24] MEDS: VALSARTAN 80 MG TAB (DIOVAN) PO SCH (21:09)
[2016-07-24] MEDS: LEVEMIR (INSULIN DETEMIR) 1 UNITS/0.01ML SC SCH (21:11)
[2016-07-24] MEDS: LATANOPROST 0.005% OPHTH SOLN 2.5 ML OU SCH (21:14)
[2016-07-24] MEDS: BISACODYL 5 MG TAB PO PRN (22:00)
[2016-07-24] MEDS ORDERED: SLF 3 ML SYR IV PRN (22:30)
[2016-07-25 04:59] VITALS: BP 152/70
[2016-07-25 05:25] LABS: MEAN CORPUSCULAR HEMOGLOBIN 30.5 pg (27.0-33.0); MEAN CORPUSCULAR HGB CONC 32.8 g/dl (32.0-36.5); RED CELL DISTRIBUTION WIDTH 15.3 % (11.5-14.5); WHITE BLOOD COUNT 4.9 K/mm3 (4.0-10.0)
[2016-07-25 05:36] LABS: CALCIUM LEVEL 9.1 MG/DL (8.8-10.2); CREATININE FOR GFR 1.62 MG/DL (0.70-1.30); GLOMERULAR FILTRATION RATE 44.7 (>42)
[2016-07-25] MEDS: LEVOTHYROXINE 0.075 MG TAB (75 MCG) PO SCH (05:39)
[2016-07-25] MEDS: SLF 3 ML SYR IV SCH ×3 (05:42→22:41)
[2016-07-25 07:56] VITALS: BP 148/65
[2016-07-25] MEDS: HumaLOG INSULIN (NovoLOG) PER UNIT SC SCH ×4 (08:39→21:00)
[2016-07-25] MEDS: APIXABAN 5 MG TAB (ELIQUIS) PO SCH ×2 (08:40→20:29)
[2016-07-25] MEDS: ASPIRIN 81 MG ENTERIC TAB PO SCH (08:40)
[2016-07-25] MEDS: FUROSEMIDE 80 MG TAB PO SCH ×2 (08:40→17:36)
[2016-07-25] MEDS: ISOSORBIDE MONONITRATE 10MG TABLET PO SCH (08:40)
[2016-07-25] MEDS: POTASSIUM CHLORIDE 10 MEQ SR TABLET PO SCH ×2 (08:40→20:29)
[2016-07-25] MEDS: amLODIPine 10 MG TAB PO SCH (08:40)
[2016-07-25] MEDS: DOCUSATE SODIUM 100 MG CAP PO SCH (08:40)
[2016-07-25] MEDS: ALLOPURINOL 300 MG TAB PO SCH (08:40)
[2016-07-25] MEDS: OMEPRAZOLE 20 MG CAP PO SCH (08:40)
[2016-07-25] MEDS: EUCERIN 120GM CREAM EXT SCH (08:42)
[2016-07-25] MEDS: MUPIROCIN 2% OINT 22 GM TUBE TOP SCH ×3 (08:42→21:14)
[2016-07-25] MEDS: LIDOCAINE 5% (LIDODERM) PATCH TD PRN (08:48)
[2016-07-25] MEDS ORDERED: CINACALCET 30 MG TAB (SENSIPAR) PO SCH (09:00)
[2016-07-25] MEDS ORDERED: **hydrALAZINE HCL** 25 MG TAB PO PRN (10:30)
[2016-07-25 11:34] VITALS: BP 128/60
[2016-07-25] MEDS: ISOSORBIDE MON. (ISMO,MONOKET) 20 MG TAB PO SCH (15:56)
[2016-07-25 16:00] VITALS: BP 140/71
[2016-07-25 19:36] VITALS: BP 133/60
[2016-07-25] MEDS: ATORVASTATIN 20 MG TAB PO SCH (20:29)
[2016-07-25] MEDS: VALSARTAN 80 MG TAB (DIOVAN) PO SCH (20:36)
[2016-07-25] MEDS: LEVEMIR (INSULIN DETEMIR) 1 UNITS/0.01ML SC SCH (20:38)
[2016-07-25] MEDS: LATANOPROST 0.005% OPHTH SOLN 2.5 ML OU SCH (21:14)
[2016-07-25 23:59] VITALS: BP 129/60
--- NOTE | 2016-07-26 01:16 | IPN ---
DATE OF SERVICE: 07/25/2016 SUBJECTIVE: Mr. Willson was seen this morning at bedside. He reports that he ambulated to the bathroom and did not have any lightheadedness, dizziness or flushing feeling. Blood sugars are more stable this morning after his insulin was decreased to 40 units. No significant episodes of bradycardia. Chest tightness has significantly improved. He denies any increased shortness of breath. No nausea, vomiting, abdominal pain or diarrhea. He states that he will see how he feels later on when he ambulates with physical therapy, but states that he is feeling better. OBJECTIVE: Vital signs: Temperature 97.7, pulse 66, respiratory rate 18, blood pressure 148/65, pulse oximetry 100% on room air. General: The patient is alert and oriented in no acute distress. HEENT: Normocephalic, atraumatic. Extraocular muscles are intact. Pupils are equally round and reactive to light. No scleral icterus. Moist mucosa. Neck: Supple. No cervical lymphadenopathy or thyromegaly. Heart: Irregularly irregular. No murmurs appreciated. Lungs: Clear to auscultation bilaterally. Abdomen: Soft, nontender, nondistended. Positive bowel sounds. Extremities: No cyanosis or edema. Positive pedal pulses bilaterally. Skin: Warm and dry. No rashes noted. Neurologic: No focal deficits. Moving all extremities. LABORATORY DATA: WBC 4.9, hemoglobin 10.6, hematocrit 32.4, platelet count 141. Sodium 143, potassium 4.0, chloride 108, carbon dioxide 26, anion gap 9, BUN 56, creatinine 1.6, GFR 44.7, fasting glucose 125. Calcium 9.1. ASSESSMENT/PLAN: 1. Symptomatic bradycardia. The patient denies any recurrence of these symptoms this morning. No significant events of bradycardia on telemetry. He continues to be off of his Coreg. Orthostatics were previously negative. Will remain off of his Coreg until he follows up with his post office clerk. 2. Hypoglycemia in the setting of a diabetic on insulin. His insulin has been decreased to 40 units at night. Blood pressures are more stable this morning. 3. History of paroxysmal atrial fibrillation. Continue with Eliquis. No longer on beta david. Rate is currently controlled. 4. History of coronary artery disease status post coronary artery bypass graft (CABG) with history of angina. Continue with aspirin, Plavix and statin therapy. Nitroglycerin as needed. He is also on isosorbide mononitrate. 5. Hypertension. Blood pressure is suboptimal. Imdur has been increased to 20 mg twice daily as this is a vasodilator. Will continue with amlodipine, Lasix and valsartan and continue to monitor blood pressures. 6. History of diastolic heart failure. Appears compensated at this time. Continue with Lasix. Renal function and electrolytes are stable. 7. Chronic kidney disease. Renal function is at baseline, currently 1.6. 8. Hypothyroidism. Continue with Levoxyl. 9. Gastroesophageal reflux disease (GERD). Continue with omeprazole. 10. Hyperlipidemia. Continue with atorvastatin. 11. Gout. Continue with allopurinol. 12. Deep venous thrombosis (DVT) prophylaxis. The patient is on Eliquis. DISPOSITION: Most likely to be discharged in the next 24-48 hours, pending he is stable clinically. My preceptor for this patient encounter was Dr. Jose Lin. The preceptor was physically present in the building during the encounter and was fully available as needed. All aspects of the patient interview, examination, medical decision making process, and medical care plan development were reviewed and approved by the preceptor. The preceptor is aware and concurs with the plan as stated in the body of this note and will attest to such by his/her co-signature. KAIDEN
[2016-07-26 04:45] VITALS: BP 138/78
[2016-07-26 05:14] LABS: MEAN CORPUSCULAR HEMOGLOBIN 30.8 pg (27.0-33.0); MEAN CORPUSCULAR HGB CONC 33.9 g/dl (32.0-36.5); MEAN CORPUSCULAR VOLUME 90.8 fl (80.0-96.0); RED CELL DISTRIBUTION WIDTH 15.5 % (11.5-14.5)
[2016-07-26] MEDS: LEVOTHYROXINE 0.075 MG TAB (75 MCG) PO SCH (05:28)
[2016-07-26] MEDS: SIMETHICONE 80 MG CHEW TAB PO PRN ×3 (05:28→23:26)
[2016-07-26] MEDS: SLF 3 ML SYR IV SCH ×3 (05:29→21:35)
[2016-07-26 05:39] LABS: CREATININE FOR GFR 1.89 MG/DL (0.70-1.30); GLOMERULAR FILTRATION RATE 37.4 (>42); POTASSIUM SERUM 3.7 MEQ/L (3.5-5.1)
[2016-07-26] MEDS: ACETAMINOPHEN TAB 650MG DOSE (2X325MG) PO PRN (06:54)
[2016-07-26] MEDS: HumaLOG INSULIN (NovoLOG) PER UNIT SC SCH ×4 (07:29→20:33)
[2016-07-26 08:00] VITALS: BP 149/71
[2016-07-26] MEDS: ALLOPURINOL 300 MG TAB PO SCH (08:11)
[2016-07-26] MEDS: OMEPRAZOLE 20 MG CAP PO SCH (08:11)
[2016-07-26] MEDS: DOCUSATE SODIUM 100 MG CAP PO SCH (08:12)
[2016-07-26] MEDS: ISOSORBIDE MON. (ISMO,MONOKET) 20 MG TAB PO SCH ×2 (08:12→16:17)
[2016-07-26] MEDS: POTASSIUM CHLORIDE 10 MEQ SR TABLET PO SCH ×2 (08:12→21:37)
[2016-07-26] MEDS: ASPIRIN 81 MG ENTERIC TAB PO SCH (08:12)
[2016-07-26] MEDS: APIXABAN 5 MG TAB (ELIQUIS) PO SCH ×2 (08:12→21:37)
[2016-07-26] MEDS: amLODIPine 10 MG TAB PO SCH (08:13)
[2016-07-26] MEDS: FUROSEMIDE 80 MG TAB PO SCH ×2 (08:13→16:17)
[2016-07-26] MEDS: EUCERIN 120GM CREAM EXT SCH (08:16)
[2016-07-26] MEDS: MUPIROCIN 2% OINT 22 GM TUBE TOP SCH ×3 (08:17→21:38)
[2016-07-26 12:00] VITALS: BP 126/60
--- NOTE | 2016-07-26 12:36 | IPNPDOC ---
Subjective Date Seen The patient was seen on 07/26/16. Subjective Chief Complaint/HPI The patient is a 71-year-old male admitted with a reason for visit of Left Sided Chest Pain, Symptomatic Bradycardia. Constitutional: Denies: Chills, Fever, Night Sweats Objective Physical Examination General Exam: Positive: Alert, No Acute Distress ENT Exam: Positive: Atraumatic, Mucous membr. moist/pink, Pharynx Normal Chest Exam: Positive: Clear to auscultation, Normal air movement Heart Exam: Positive: Rate Normal, Regular Rhythm, Normal S1, Normal S2, Negative: Murmurs, Rubs Abdomen Exam: Positive: Normal bowel sounds, Soft, Negative: Tenderness, Hepatospenomegaly Extremity Exam: Positive: Edema (trace), Normal pulses, Negative: Clubbing, Cyanosis Assessment /Plan Problems (1) Symptomatic bradycardia Status: Resolved Problem Text: * coreg has been discontinued * pt has been monitored on tele, no more episodes of bradycardia * will likely d/c pt in am to follow up with dr magallanes (2) Diabetes Status: Chronic Problem Text: * pt had morning hypoglycemia * his levemir dose was decreased and will continue to monitor (3) Hyperlipidemia Status: Chronic (4) Hypothyroidism Status: Chronic (5) GERD (gastroesophageal reflux disease) Status: Chronic (6) Hypertension Status: Chronic (7) Chronic kidney disease (CKD), stage III (moderate) Status: Chronic Plan/VTE VTE Prophylaxis Ordered?: Yes VS, I&O, 24H, Fishbone Vital Signs/I&O Vital Signs Date Time Temp Pulse Resp B/P (MAP) Pulse Ox O2 Delivery O2 Flow Rate FiO2 07/26/16 12:00 97.6 77 18 126/60 (82) 99 Room Air I&O- Last 24 Hours up to 6 AM 07/26/16 06:00 Intake Total 1520 ml Output Total 3200 ml Balance -1680 ml Laboratory Data 24H LABS Laboratory Tests 2 07/25/16 16:59: Bedside Glucose (Misc Panel) 169H 07/25/16 20:28: Bedside Glucose (Misc Panel) 151H 07/26/16 04:52: Anion Gap 7L, Glomerular Filtration Rate 37.4L, Blood Urea Nitrogen 59H, Creatinine 1.89H, Sodium Level 144, Potassium Level 3.7, Chloride Level 108H, Carbon Dioxide Level 29, Calcium Level 9.0 07/26/16 11:50: Bedside Glucose (Misc Panel) 125H CBC/BMP Laboratory Tests 07/26/16 04:52 Red Blood Count 3.55 L, Mean Corpuscular Volume 90.8, Mean Corpuscular Hemoglobin 30.8, Mean Corpuscular Hemoglobin Concent 33.9, Red Cell Distribution Width 15.5 H, Calcium Level 9.0 TIFFANI JAVIER DO July 26, 2016 12:36
[2016-07-26 16:00] VITALS: BP 141/66
[2016-07-26 20:00] VITALS: BP 124/53
[2016-07-26] MEDS: LATANOPROST 0.005% OPHTH SOLN 2.5 ML OU SCH (21:34)
[2016-07-26] MEDS: LEVEMIR (INSULIN DETEMIR) 1 UNITS/0.01ML SC SCH (21:34)
[2016-07-26] MEDS: ATORVASTATIN 20 MG TAB PO SCH (21:35)
[2016-07-26] MEDS: VALSARTAN 80 MG TAB (DIOVAN) PO SCH (21:37)
[2016-07-26] MEDS ORDERED: ALPRAZolam 0.5 MG TAB PO ONE (23:30)
[2016-07-27] VITALS: BP 129/61
[2016-07-27 04:00] VITALS: BP 126/66
[2016-07-27 05:20] LABS: MEAN CORPUSCULAR HEMOGLOBIN 30.3 pg (27.0-33.0); MEAN CORPUSCULAR HGB CONC 33.4 g/dl (32.0-36.5); MEAN CORPUSCULAR VOLUME 90.6 fl (80.0-96.0); RED CELL DISTRIBUTION WIDTH 15.3 % (11.5-14.5); WHITE BLOOD COUNT 5.2 K/mm3 (4.0-10.0)
[2016-07-27] MEDS: SLF 3 ML SYR IV SCH ×2 (05:24→13:16)
[2016-07-27] MEDS: LEVOTHYROXINE 0.075 MG TAB (75 MCG) PO SCH (05:24)
[2016-07-27 05:36] LABS: CALCIUM LEVEL 8.9 MG/DL (8.8-10.2); CREATININE FOR GFR 1.8 MG/DL (0.70-1.30); GLOMERULAR FILTRATION RATE 39.6 (>42); POTASSIUM SERUM 3.7 MEQ/L (3.5-5.1)
[2016-07-27 08:00] VITALS: BP 151/88
[2016-07-27] MEDS: amLODIPine 10 MG TAB PO SCH (08:59)
[2016-07-27] MEDS: ALLOPURINOL 300 MG TAB PO SCH (09:00)
[2016-07-27] MEDS: DOCUSATE SODIUM 100 MG CAP PO SCH (09:00)
[2016-07-27] MEDS: ISOSORBIDE MON. (ISMO,MONOKET) 20 MG TAB PO SCH ×2 (09:00→15:50)
[2016-07-27] MEDS: OMEPRAZOLE 20 MG CAP PO SCH (09:00)
[2016-07-27] MEDS: APIXABAN 5 MG TAB (ELIQUIS) PO SCH (09:00)
[2016-07-27] MEDS: FUROSEMIDE 80 MG TAB PO SCH ×2 (09:00→16:48)
[2016-07-27] MEDS: ASPIRIN 81 MG ENTERIC TAB PO SCH (09:00)
[2016-07-27] MEDS: POTASSIUM CHLORIDE 10 MEQ SR TABLET PO SCH (09:01)
[2016-07-27] MEDS: MUPIROCIN 2% OINT 22 GM TUBE TOP SCH ×2 (09:02→16:51)
[2016-07-27] MEDS: HumaLOG INSULIN (NovoLOG) PER UNIT SC SCH ×3 (09:02→18:30)
[2016-07-27] MEDS: EUCERIN 120GM CREAM EXT SCH (09:03)
[2016-07-27] MEDS ORDERED: LANTINJ4 SC (10:42)
[2016-07-27] MEDS ORDERED: ISOS10TAB PO (10:42)
--- NOTE | 2016-07-27 13:48 | IPNPDOC ---
Subjective Date Seen The patient was seen on 07/27/16. Subjective Chief Complaint/HPI The patient is a 71-year-old male admitted with a reason for visit of Left Sided Chest Pain, Symptomatic Bradycardia. Events since last encounter Patient was seen this morning at bedside. He seems to be complaining of more chest pain that is more bothersome when he takes a deep breath in. He denies any shortness of breath. No nausea, vomiting, abd pain, dizziness, headache, fever, chills, diarrhea. Vitals are stable. Objective Physical Examination General Exam: Positive: Alert, Cooperative, No Acute Distress Eye Exam: Positive: Conjunctiva & lids normal, EOMI, Negative: Sclera icteric ENT Exam: Positive: Atraumatic, Mucous membr. moist/pink, Pharynx Normal Chest Exam: Positive: Clear to auscultation, Normal air movement Heart Exam: Positive: Rate Normal, Regular Rhythm, Normal S1, Normal S2, Negative: Murmurs, Rubs Abdomen Exam: Positive: Normal bowel sounds, Soft, Negative: Tenderness, Hepatospenomegaly Extremity Exam: Positive: Edema (trace), Normal pulses, Negative: Clubbing, Cyanosis Skin Exam: Positive: Nl turgor and temperature, Negative: Rash Neuro Exam: Positive: Normal Speech, Cranial Nerves 3-12 NL Assessment /Plan Problems (1) Chest pain on respiration Status: Acute Problem Text: * Was admitted with chest pain, but now he says it is more pleuritic in nature * Will obtain EKG and cardiac markers * Given his renal function, CTA can not be performed, will obtain VQ scan instead * PE is less likely given his previously negative D dimer and the fact that he is on Eliquis BID (2) Symptomatic bradycardia Status: Resolved Problem Specific Plan: Monitor Clinically Problem Text: * Coreg has been discontinued * Patient has been monitored on tele, no more episodes of bradycardia * Will need followup with his rate supervisor Dr. Johnson, has an appointment with him tomorrow (3) Diabetes Status: Chronic Problem Specific Plan: Monitor Clinically, Repeat Tests Problem Text: * His levemir dose was decreased to 40 units given episode of hypoglycemia * Continue to monitor blood sugars (4) Hypertension Status: Chronic Problem Specific Plan: Monitor Clinically Problem Text: * Continue amlodipine, valsartan, Lasix and Isosorbide mononitrate (5) Chronic kidney disease (CKD), stage III (moderate) Status: Chronic Problem Text: * Renal function around baseline * Continue to monitor (6) Paroxysmal a-fib Status: Chronic Problem Text: * Currently sinus rhythm, rate controlled * Continue Eliquis (7) CAD (coronary artery disease) Status: Chronic Problem Specific Plan: Monitor Clinically Problem Text: * Continue ASA and Lipitor * Beta david discontinued due to bradycardia * Nitroglycerin as needed (8) Hyperlipidemia Status: Chronic Problem Text: * Continue Lipitor (9) Hypothyroidism Status: Chronic Problem Specific Plan: Monitor Clinically Problem Text: * Continue Levoxyl (10) GERD (gastroesophageal reflux disease) Status: Chronic Problem Specific Plan: Monitor Clinically Problem Text: * Continue Prilosec (11) Gout Status: Chronic Problem Text: * Continue allopurinol Plan/VTE VTE Prophylaxis Ordered?: Yes (Eliquis) VS, I&O, 24H, Fishbone Vital Signs/I&O Vital Signs Date Time Temp Pulse Resp B/P (MAP) Pulse Ox O2 Delivery O2 Flow Rate FiO2 07/27/16 08:59 140/70 07/27/16 08:00 98.1 77 19 98 Room Air I&O- Last 24 Hours up to 6 AM 07/27/16 06:00 Intake Total 1395 ml Output Total 1875 ml Balance -480 ml Laboratory Data CBC/BMP Laboratory Tests 07/27/16 04:53 Red Blood Count 3.38 L, Mean Corpuscular Volume 90.6, Mean Corpuscular Hemoglobin 30.3, Mean Corpuscular Hemoglobin Concent 33.4, Red Cell Distribution Width 15.3 H, Calcium Level 8.9 GME ATTESTATION GME ATTESTATION My preceptor for this patient encounter was physically present in the building during the encounter and was fully available. As needed, all aspects of the patient interview, examination, medical decision making process, and medical care plan development were reviewed and approved by the preceptor. Preceptor is aware and concurs with the plan as stated in the body of this note and will attest to such by his/her cosignature. LUPE WATT DO July 27, 2016 13:48
--- NOTE | 2016-07-27 15:34 | REP ---
Ventilation-perfusion lung scan: History: Chest pain, pleuritic. Shortness of breath. Comparison portable chest x-ray July 22, 2016. Technique: 1.0 mCi of technetium 99m DTPA aerosol is utilized for the ventilation study and is followed by a 5.5 mCi intravenous dose of technetium-99m MAA for the perfusion exam. Eight planar images are acquired for each portion of the study. Scintigraphic findings: There is homogeneous distribution of perfusion tracer. No perfusion defect is seen. Ventilation tracer is fairly homogeneous in distribution as well. Impression: Negative ventilation perfusion lung scan. No evidence to suggest pulmonary embolism. Signed by Tod Chen MD 07/27/2016 04:29 P
--- NOTE | 2016-07-27 15:42 | REP ---
Clinical: Pleuritic chest pain. Technique: PA and lateral. Comparison: 07/22/2016. Findings: The patient is again noted to be status post sternotomy and CABG. The cardiac silhouette is within normal limits and stable. Lung davis demonstrate chronic changes without acute consolidation, effusion, or pneumothorax. Skeletal structures are intact. Impression: Chronic stable changes. No acute cardiopulmonary process appreciated. Signed by Alex Parisi MD 07/27/2016 03:33 P
[2016-07-27 15:50] VITALS: BP 122/60
--- NOTE | 2016-07-27 17:35 | ECGEPIP ---
Stationary ECG Study [facility] Test Date: 2016-07-27 Pat Name: JEANNA LYLE JR Department: Room: [place] [address] Gender: M Fire Medic: CHAYA : 1945 Requested By: LUPE WATT Order Number: [id number] Reading MD: Rayna Burton Measurements Intervals [place] Rate: 52 P: 50 WA: 257 QRS: 45 QRSD: 91 T: 85 QT: 419 QTc: 393 Interpretive Statements SINUS BRADYCARDIA WITH MARKED SINUS ARRHYTHMIA WITH FIRST DEGREE AV BLOCK NONSPECIFIC ST & T-WAVE ABNORMALITY Left atrial enlargement OLD SEPTAL [place] SINUS ARRYTHMIA NEW C/W 07/22/16 Electronically Signed On 07-27-2016 17:35:42 EDT by Rayna Burton
--- NOTE | 2016-07-27 18:20 | REP ---
Clinical: Pain and swelling . Technique: [place] scale and color Doppler evaluation using linear high frequency transducer. Findings: Ultrasound examination of the right and left lower extremity deep venous structures from the common femoral vein to the popliteal vein demonstrates normal compressibility flow and wave patterns in response to respiration and augmentation. There is no evidence for deep venous thrombosis. 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 Impression: No evidence for deep venous thrombosis. Signed by Alex Parisi MD 07/27/2016 06:12 P
--- NOTE | 2016-07-30 09:53 | DSES ---
DATE OF ADMISSION: 07/25/2016 DATE OF DISCHARGE: 07/27/2016 DISCHARGE DIAGNOSES: 1. Chest pain. 2. Bradycardia. 3. Hypoglycemia. 4. Hypertension. 5. Chronic kidney disease. 6. Diabetes. 7. Paroxysmal atrial fibrillation on anticoagulation. 8. Coronary artery disease. 9. Hyperlipidemia. 10. Hypothyroidism. 11. Gastrointestinal reflux disease (GERD). 12. Gout. 13. Diastolic heart failure. 14. History of hypertensive urgency. 15. History of adrenal nodule. 16. History of renal cancer 17 years ago. 17. Osteoarthritis. 18. Cervical spine stenosis. 19. History of cellulitis. DISCHARGE MEDICATIONS: - Allopurinol 300 mg daily - Mylanta 10 mL by mouth as needed - Norvasc 10 mg by mouth daily - Eliquis 5 mg by mouth twice daily - aspirin 81 mg daily - Atorvastatin 40 mg by mouth at night - Sensipar 30 mL by mouth twice a week - cyclobenzaprine 10 mg by mouth three times daily as needed - docusate sodium 100 mg by mouth daily - Furosemide 80 mg by mouth twice daily - glimepiride 4 mg by mouth twice daily - hydrochlorothiazide 12.5 mg by mouth as needed - Xalatan one drop in each eye at night - Levoxyl 75 mcg by mouth daily - insulin aspart one dose sliding scale - lidocaine one patch transdermal daily as needed - multivitamin one tablet by mouth daily - nitroglycerin 0.4 mg sublingual as needed - omeprazole 20 mg by mouth daily - potassium chloride 20 mEq by mouth twice daily - Diovan 320 mg by mouth at night - vitamin D 50,000 units by mouth monthly - Lantus 40 units by mouth at night - isosorbide mononitrate 20 mg by mouth twice daily DISCONTINUED MEDICATIONS: Carvedilol 12.5 mg by mouth twice daily. BRIEF HOSPITAL COURSE: The patient originally came in with complaints of lightheadedness, dizziness and flushed feeling upon standing. He was reported to have bradycardia on initial evaluation by emergency medical services (EMS). He was admitted into the hospital and Coreg was held. Discussed with his federal mediation commissioner about discontinue his Coreg secondary to his bradycardia. The patient did have some events of bradycardia initially at night which resolved. After Coreg was held for 48 hours the patient no longer had any significant bradycardic events on telemetry. During hospitalization he also had an episode of hypoglycemia and during that episode he also complained of similar symptoms of the lightheadedness, dizziness and flushed feeling upon standing. His Lantus was decreased to 40 units at night and blood pressure were much more stable. After those two changes were made the patient no longer had complaints of lightheadedness, dizziness, flushing, but he did have chest pain. He complained of chest pain that was worse with inspiration. Because of this EKG, cardiac marker was done. They were found to be negative. He also had a VQ scan and lower extremity ultrasound to rule out deep venous thrombosis (DVT) and pulmonary embolism (PE), both of which were negative. Of note, the patient has been on Eliquis 5 mg twice daily which was continued during hospitalization. The patient ambulated with physical therapy after changes were made and he was deemed stable without any recurrence of symptoms. On the day of discharge, the patient states he felt well and was ready to go home. He also had an appointment with his federal mediation commissioner the next day and wanted to make sure that he kept that appointment. He denied any lightheadedness, dizziness, headache, nausea, vomiting, abdominal pain, shortness of breath, diarrhea, fevers or chills. His chest pain had significantly improved. The patient was subsequently stable for discharge. LABORATORY DATA: Laboratory data on discharge revealed WBC 5.2, hemoglobin 7.2, hematocrit 30.6, platelet count 129. Sodium 143, potassium 3.7, chloride 108, carbon dioxide 29, anion gap 6, BUN 61, creatinine 1.8, GFR 39.6, fasting glucose 118, calcium 8.9. IMAGING STUDIES: As stated above. In addition, he had a chest x-ray which showed chronic stable changes. He also had cardiomegaly. No acute process was noted. PHYSICAL EXAMINATION: VITAL SIGNS: Temperature 98.1, pulse 77, respiratory rate 19, blood pressure 122/60, pulse ox 98% on room air. GENERAL: The patient is alert and oriented in no acute distress. HEENT: Normocephalic, atraumatic. Extraocular muscles are intact. Pupils equal, round, and reactive to light. No scleral icterus. Moist mucosa. NECK: Supple. No cervical lymphadenopathy. No thyromegaly or jugular venous distension appreciated. HEART: Normal S1-S2, regular rate and rhythm. No murmur appreciated. LUNGS: Clear to auscultation bilaterally. No rales, rhonchi or wheezing. ABDOMEN: Soft, nontender, nondistended. Positive bowel sounds. EXTREMITIES: No significant edema. No cyanosis. Positive pedal pulses bilaterally. SKIN: Warm and dry. No rashes noted. NEUROLOGIC: No focal deficits. Cranial nerves: II through XII are grossly intact. Motor and sensation intact. DISCHARGE INSTRUCTIONS: The patient is discharged in stable condition. He will followup with his federal mediation commissioner tomorrow 07/28 at 12:30 p.m. His primary care provider, Sebastian Gaitan August 03 at 11:30. Activity as tolerated. Two gram sodium diet. Return to emergency department (ED) with worsening or recurring symptoms. Time spent on discharge greater than 35 minutes. My preceptor for this patient encounter was Jose Lin DO. The preceptor was physically present in the building during the encounter and was fully available as needed. All aspects of the patient interview, examination, medical decision making process, and medical care plan development were reviewed and approved by the preceptor. The preceptor is aware and concurs with the plan as stated in the body of this note and will attest to such by his/her co-signature.
== END 2016-07-27 20:10 | disposition home or self-care (01) | DRG 309 ==
LOC: EDBD 14:52 → M ED 16:29 → M ED INP 17:50 → M PCU 20:12 → OBSVTOIN 07-25 07:23
PROVIDERS: ADMIT Internal Medicine; ATTEND Internal Medicine
DX: R00.1 Bradycardia, unspecified (principal); I50.32 Chronic diastolic (congestive) heart failure; I13.0 Hypertensive heart and chronic kidney disease with heart failure and stage 1 through stage 4 chronic kidney disease, or unspecified chronic kidney disease; E11.649 Type 2 diabetes mellitus with hypoglycemia without coma; M19.90 Unspecified osteoarthritis, unspecified site; M10.9 Gout, unspecified; E78.5 Hyperlipidemia, unspecified; E03.9 Hypothyroidism, unspecified; I48.0 Paroxysmal atrial fibrillation; Z79.01 Long term (current) use of anticoagulants; I12.9 Hypertensive chronic kidney disease with stage 1 through stage 4 chronic kidney disease, or unspecified chronic kidney disease; I25.10 Atherosclerotic heart disease of native coronary artery without angina pectoris; Z79.899 Other long term (current) drug therapy; Z79.4 Long term (current) use of insulin; N18.3 Chronic kidney disease, stage 3 (moderate); Z85.528 Personal history of other malignant neoplasm of kidney; K21.9 Gastro-esophageal reflux disease without esophagitis; Z88.0 Allergy status to penicillin; Z91.041 Radiographic dye allergy status; Z88.1 Allergy status to other antibiotic agents; Z88.2 Allergy status to sulfonamides; R07.89 Other chest pain

== ENCOUNTER → 2017-01-26 | Outpatient (REF) | payer OTHER ==
[~2017-01-26] MED LIST changes: -ATOR40TA PO; +ATOR40TA75 PO; +CLIN150C14 PO; -CLIN1CAP5 PO; -DOCU100C PO; +DOCU100C16 PO; +HYDR-3910 PO; -HYDR-4266 PO; -LIDO5DIS36 TD; +LIDO5DIS41 TD; +MINO10TA PO; -MINO10TAB PO; +MINO2.5T PO; -MINO25TA PO; +PLAV1TAB2 PO; -PLAV75TA38 PO; -XALA0.002 OU; +XALA0.007 OU
[2017-01-26 18:59] LABS: PERCENT SATURATION 23.7 % (19.7-50.0)
== END ==
LOC: M LAB REF 17:36
PROVIDERS: ATTEND Internal Medicine Nephrology
DX: D64.9 Anemia, unspecified (principal)

== ENCOUNTER 2017-04-30 15:14 | Emergency (ER) | payer OTHER ==
[2017-04-30] MEDS: ONDANSETRON 4MG/2ML VIAL (J2405) IV (17:48)
[2017-04-30] MEDS: MORPHINE 4 MG/ML 1ML VIAL (J2270) IV (17:48)
[2017-04-30] MEDS: NS 500 ML IV (17:48)
[2017-04-30 17:54] LABS: BASO % 0.4 % (0.0-1.0); EOS # 0.2 10^3/uL (0.0-0.50); EOS % 3.3 % (0.0-3.0); HEMATOCRIT 39.7 % (42.0-52.0); HEMOGLOBIN 12.6 g/dl (14.0-18.0); IMMATURE GRANULOCYTE % 0.1 % (0-3.0); LYMPH # 1.4 10^3/uL (1.5-4.5); LYMPH % 21.2 % (24.0-44.0); MEAN CORPUSCULAR HEMOGLOBIN 28.8 pg (27.0-33.0); MEAN CORPUSCULAR HGB CONC 31.7 g/dl (32.0-36.5); MEAN CORPUSCULAR VOLUME 90.8 fl (80.0-96.0); MONO # 0.5 10^3/uL (0.0-0.8); MONO % 7.5 % (0.0-5.0); NEUTROPHILS # 4.5 10^3/uL (1.8-7.7); NEUTROPHILS % 67.5 % (36.0-66.0); PLATELET COUNT, AUTOMATED 186 10^3/uL (150-450); RED BLOOD COUNT 4.37 10^6/uL (4.30-6.10); RED CELL DISTRIBUTION WIDTH 15.2 % (11.5-14.5); WHITE BLOOD COUNT 6.7 10^3/uL (4.0-10.0)
[2017-04-30 18:13] LABS: ALBUMIN 3.3 GM/DL (3.2-5.2); ALBUMIN/GLOBULIN RATIO 0.97 (1.00-1.93); ALKALINE PHOSPHATASE 83 U/L (45-117); ALT/SGPT 27 U/L (12-78); AMYLASE 75 U/L (25-115); ANION GAP 8 MEQ/L (8-16); AST/SGOT 20 U/L (7-37); BILIRUBIN,DIRECT 0.1 MG/DL (0.0-0.2); BILIRUBIN,TOTAL 0.4 MG/DL (0.2-1.0); BLOOD UREA NITROGEN 37 MG/DL (7-18); CARBON DIOXIDE LEVEL 28 MEQ/L (21-32); CHLORIDE LEVEL 110 MEQ/L (98-107); CREATININE FOR GFR 1.73 MG/DL (0.70-1.30); GLOMERULAR FILTRATION RATE 41.4 (>42); GLUCOSE, FASTING 139 MG/DL (70-100); LIPASE 180 U/L (73-393); POTASSIUM SERUM 3.7 MEQ/L (3.5-5.1); SODIUM LEVEL 146 MEQ/L (136-145); TOTAL PROTEIN 6.7 GM/DL (6.4-8.2)
[2017-04-30 18:14] LABS: LACTIC ACID SEPSIS PROTOCOL 1.3 MMOL/L (0.4-2.0)
[2017-04-30 18:59] LABS: BEDSIDE GLUCOSE 121 MG/DL (83-110)
[2017-04-30 19:42] LABS: KETONE, URINE AUTO RFX NEGATIVE (NEGATIVE); LEUKOCYTE ESTERASE UR AUTO RFX NEGATIVE (NEGATIVE); MUCUS, URINE RFX SMALL (NEGATIVE); NITRITE, URINE AUTO RFX NEGATIVE (NEGATIVE); RBC, URINE AUTO RFX 1 /HPF (0-3); SPECIFIC GRAVITY UR AUTO RFX 1.008 (1.002-1.035); SQUAM EPITHELIAL CELL UR AURFX 0 /HPF (0-6); WBC, URINE AUTO RFX 1 /HPF (0-3)
[2017-04-30] MEDS: CIPROFLOXACIN 250 MG TAB PO (19:43)
== END 2017-04-30 21:57 | disposition home or self-care (01) ==
LOC: M ED 15:14
DX: N45.2 Orchitis (principal); I11.0 Hypertensive heart disease with heart failure; I50.9 Heart failure, unspecified; J45.909 Unspecified asthma, uncomplicated; E11.9 Type 2 diabetes mellitus without complications; N18.3 Chronic kidney disease, stage 3 (moderate); I25.10 Atherosclerotic heart disease of native coronary artery without angina pectoris; E07.9 Disorder of thyroid, unspecified; E78.89 Other lipoprotein metabolism disorders; Z86.73 Personal history of transient ischemic attack (TIA), and cerebral infarction without residual deficits; Z95.5 Presence of coronary angioplasty implant and graft; Z79.899 Other long term (current) drug therapy; Z79.01 Long term (current) use of anticoagulants; Z79.4 Long term (current) use of insulin; Z79.82 Long term (current) use of aspirin; Z88.0 Allergy status to penicillin; Z88.1 Allergy status to other antibiotic agents; Z88.2 Allergy status to sulfonamides; Z91.040 Latex allergy status

== ENCOUNTER 2017-05-02 18:49 | Inpatient (IN) | payer OTHER ==
[2017-05-02 19:36] LABS: BASO % 0.5 % (0.0-1.0); EOS # 0.2 10^3/uL (0.0-0.50); EOS % 3.3 % (0.0-3.0); HEMATOCRIT 35.3 % (42.0-52.0); HEMOGLOBIN 11.4 g/dl (14.0-18.0); IMMATURE GRANULOCYTE % 0.3 % (0-3.0); LYMPH # 1.1 10^3/uL (1.5-4.5); LYMPH % 19.2 % (24.0-44.0); MEAN CORPUSCULAR HEMOGLOBIN 28.9 pg (27.0-33.0); MEAN CORPUSCULAR HGB CONC 32.3 g/dl (32.0-36.5); MEAN CORPUSCULAR VOLUME 89.4 fl (80.0-96.0); MONO # 0.5 10^3/uL (0.0-0.8); MONO % 8.9 % (0.0-5.0); NEUTROPHILS % 67.8 % (36.0-66.0); PLATELET COUNT, AUTOMATED 164 10^3/uL (150-450); RED BLOOD COUNT 3.95 10^6/uL (4.30-6.10); RED CELL DISTRIBUTION WIDTH 15.3 % (11.5-14.5); WHITE BLOOD COUNT 5.8 10^3/uL (4.0-10.0)
[2017-05-02 20:15] LABS: ANION GAP 8 MEQ/L (8-16); BLOOD UREA NITROGEN 36 MG/DL (7-18); CALCIUM LEVEL 8.8 MG/DL (8.8-10.2); CARBON DIOXIDE LEVEL 27 MEQ/L (21-32); CHLORIDE LEVEL 110 MEQ/L (98-107); CK-MB VALUE MASS 2.2 NG/ML (0.0-3.6); CPK CREATINE PHOSPHOKINASE 145 U/L (39-308); CREATININE FOR GFR 1.74 MG/DL (0.70-1.30); GLOMERULAR FILTRATION RATE 41.1 (>42); GLUCOSE, FASTING 115 MG/DL (70-100); MB/CK RELATIVE INDEX 1.51 (< OR =4); SODIUM LEVEL 145 MEQ/L (136-145); TROPONIN I 0.02 NG/ML (< 0.10)
[2017-05-02] MEDS: D5W/0.45% SODIUM CHLORIDE 1,000 ML IV (21:00)
[2017-05-02 21:02] LABS: BEDSIDE GLUCOSE 94 MG/DL (83-110)
[2017-05-02] MEDS: MORPHINE 4 MG/ML 1ML VIAL (J2270) IV (21:29)
[2017-05-02] MEDS: ONDANSETRON 4MG/2ML VIAL (J2405) IV (21:29)
[2017-05-02] MEDS: NITROGLYCERIN 0.4 MG SUBL TABLET SL ×3 (22:52→23:05)
[2017-05-02] MEDS: LABETALOL HCL 100 MG/20 ML VIAL IV ×2 (23:07→23:55)
[2017-05-02] MEDS: fentaNYL 100 MCG/2 ML INJECTION (J3010) IV (23:56)
[2017-05-03] MEDS: LORazepam 2 MG/ML VIAL (J2060) IV (00:07)
[2017-05-03 02:06] LABS: CK-MB VALUE MASS 1.8 NG/ML (0.0-3.6); CPK CREATINE PHOSPHOKINASE 131 U/L (39-308); MB/CK RELATIVE INDEX 1.37 (< OR =4); TROPONIN I 0.03 NG/ML (< 0.10)
[2017-05-03] MEDS ORDERED: GLUCOSE 4 GM CHEW TABLET PO (03:45)
[2017-05-03] MEDS ORDERED: DEXTROSE 50% 50 ML SYRINGE IV (03:45)
[2017-05-03] MEDS ORDERED: GLUCAGON FOR INJ 1 MG VIAL (J1610) SC (03:45)
[2017-05-03] MEDS: LABETALOL HCL 200 MG in D5W 160 ML IV (04:12)
[2017-05-03] MEDS: D5W/0.45% SODIUM CHLORIDE 1,000 ML IV (04:12)
[2017-05-03] MEDS: HYDROmorphone HCL 1 MG/ML SYRINGE (J1170) IV ×5 (04:27→23:44)
[2017-05-03] MEDS ORDERED: HEPARIN SOD (PORCINE) 5000 UNITS/ML VIAL SC (06:00)
[2017-05-03] MEDS: LEVOTHYROXINE 75MCG TABLET (0.075MG) PO (06:45)
[2017-05-03] MEDS: ATORVASTATIN 20 MG TAB PO ×2 (06:45→20:35)
[2017-05-03] MEDS: LATANOPROST 0.005% OPHTH SOLN 2.5 ML OU ×2 (06:45→21:00)
[2017-05-03 07:25] LABS: LACTIC ACID SEPSIS PROTOCOL 0.9 MMOL/L (0.4-2.0)
[2017-05-03 07:25] LABS: TROPONIN I 0.03 NG/ML (< 0.10)
[2017-05-03 07:27] LABS: CK-MB VALUE MASS 1.8 NG/ML (0.0-3.6); CPK CREATINE PHOSPHOKINASE 155 U/L (39-308); MB/CK RELATIVE INDEX 1.16 (< OR =4)
[2017-05-03] MEDS: HumaLOG INSULIN (NovoLOG) PER UNIT SC ×4 (07:29→21:00)
[2017-05-03 07:37] LABS: BEDSIDE GLUCOSE 72 MG/DL (83-110)
[2017-05-03] MEDS: OMEPRAZOLE 20 MG CAP PO (08:47)
[2017-05-03] MEDS: POTASSIUM CHLORIDE 10 MEQ SR TABLET PO ×2 (08:47→20:34)
[2017-05-03] MEDS: ASPIRIN 81 MG ENTERIC TAB PO (08:47)
[2017-05-03] MEDS: DOCUSATE SODIUM 100 MG CAP PO ×2 (08:47→20:35)
[2017-05-03] MEDS: MULTIVITAMINS/MINERALS THERAP 1 TAB PO (08:47)
[2017-05-03] MEDS: ALLOPURINOL 300 MG TAB PO (08:48)
[2017-05-03] MEDS: FUROSEMIDE 80 MG TAB PO ×2 (08:48→18:45)
[2017-05-03] MEDS: ISOSORBIDE MON. (ISMO,MONOKET) 20 MG TAB PO ×2 (08:49→20:57)
[2017-05-03] MEDS: CINACALCET 30 MG TAB (SENSIPAR) PO (11:36)
[2017-05-03 13:55] LABS: CPK CREATINE PHOSPHOKINASE 169 U/L (39-308); TROPONIN I 0.02 NG/ML (< 0.10)
[2017-05-03 13:56] LABS: MB/CK RELATIVE INDEX 1.18 (< OR =4)
[2017-05-03] MEDS: VALSARTAN 80 MG TAB (DIOVAN) PO (20:36)
[2017-05-03] MEDS: RIVAROXABAN 10 MG TAB (XARELTO) PO (20:57)
[2017-05-03] MEDS ORDERED: LEVEMIR (INSULIN DETEMIR) 1 UNITS/0.01ML SC (21:00)
[2017-05-03] MEDS: LEVEMIR (INSULIN DETEMIR) 1 UNITS/0.01ML SC (22:24)
[2017-05-03 22:52] LABS: APPEARANCE, URINE CLEAR (CLEAR); BACTERIA, URINE AUTO NEGATIVE (NEGATIVE); BILIRUBIN, URINE AUTO NEGATIVE (NEGATIVE); BLOOD, URINE BLOOD NEGATIVE (NEGATIVE); COLOR, URINE STRAW (YELLOW); GLUCOSE, URINE (UA) AUTO 1+ mg/dL (NEGATIVE); KETONE, URINE AUTO NEGATIVE (NEGATIVE); LEUKOCYTE ESTERASE, URINE AUTO NEGATIVE (NEGATIVE); MUCUS, URINE SMALL (NEGATIVE); NITRITE, URINE AUTO NEGATIVE (NEGATIVE); PROTEIN, URINE AUTO 2+ mg/dL (NEGATIVE); RBC, URINE AUTO 2 /HPF (0-3); SPECIFIC GRAVITY URINE AUTO 1.006 (1.002-1.035); SQUAMOUS EPITHELIAL CELL UR AU 0 /HPF (0-6); UROBILINOGEN, URINE AUTO 0.2 mg/dL (0.0-2.0); WBC, URINE AUTO 0 /HPF (0-3)
[2017-05-03] MEDS: ONDANSETRON 4MG/2ML VIAL (J2405) IV (23:43)
[2017-05-03] MEDS: SLF 3 ML SYR IV (23:44)
[2017-05-04] MEDS: HYDROmorphone HCL 1 MG/ML SYRINGE (J1170) IV ×5 (02:46→21:13)
[2017-05-04 05:51] LABS: BASO % 0.6 % (0.0-1.0); EOS # 0.2 10^3/uL (0.0-0.50); EOS % 4.3 % (0.0-3.0); HEMATOCRIT 35.9 % (42.0-52.0); HEMOGLOBIN 11.3 g/dl (14.0-18.0); IMMATURE GRANULOCYTE % 0.4 % (0-3.0); LYMPH # 1.1 10^3/uL (1.5-4.5); LYMPH % 20.4 % (24.0-44.0); MEAN CORPUSCULAR HEMOGLOBIN 28.3 pg (27.0-33.0); MEAN CORPUSCULAR HGB CONC 31.5 g/dl (32.0-36.5); MEAN CORPUSCULAR VOLUME 89.8 fl (80.0-96.0); MONO # 0.5 10^3/uL (0.0-0.8); MONO % 10.1 % (0.0-5.0); NEUTROPHILS # 3.3 10^3/uL (1.8-7.7); NEUTROPHILS % 64.2 % (36.0-66.0); PLATELET COUNT, AUTOMATED 147 10^3/uL (150-450); RED CELL DISTRIBUTION WIDTH 15.3 % (11.5-14.5); WHITE BLOOD COUNT 5.2 10^3/uL (4.0-10.0)
[2017-05-04] MEDS: LEVOTHYROXINE 75MCG TABLET (0.075MG) PO (05:51)
[2017-05-04] MEDS: SLF 3 ML SYR IV ×3 (05:51→21:13)
[2017-05-04 06:21] LABS: ALBUMIN 2.6 GM/DL (3.2-5.2); ALBUMIN/GLOBULIN RATIO 0.76 (1.00-1.93); ALKALINE PHOSPHATASE 71 U/L (45-117); ALT/SGPT 19 U/L (12-78); ANION GAP 7 MEQ/L (8-16); AST/SGOT 14 U/L (7-37); BILIRUBIN,TOTAL 0.4 MG/DL (0.2-1.0); BLOOD UREA NITROGEN 28 MG/DL (7-18); CALCIUM LEVEL 8.8 MG/DL (8.8-10.2); CARBON DIOXIDE LEVEL 27 MEQ/L (21-32); CHLORIDE LEVEL 110 MEQ/L (98-107); CREATININE FOR GFR 1.69 MG/DL (0.70-1.30); GLOMERULAR FILTRATION RATE 42.6 (>42); GLUCOSE, FASTING 120 MG/DL (70-100); MAGNESIUM LEVEL 2.4 MG/DL (1.8-2.4); POTASSIUM SERUM 3.9 MEQ/L (3.5-5.1); SODIUM LEVEL 144 MEQ/L (136-145)
[2017-05-04] MEDS: DOCUSATE SODIUM 100 MG CAP PO ×2 (08:49→21:10)
[2017-05-04] MEDS: MIRALAX *UNIT DOSE* 17GM PACKET PO (08:49)
[2017-05-04] MEDS: OMEPRAZOLE 20 MG CAP PO (08:49)
[2017-05-04] MEDS: HumaLOG INSULIN (NovoLOG) PER UNIT SC ×4 (08:49→21:00)
[2017-05-04] MEDS: POTASSIUM CHLORIDE 10 MEQ SR TABLET PO ×2 (08:50→21:10)
[2017-05-04] MEDS: MULTIVITAMINS/MINERALS THERAP 1 TAB PO (08:50)
[2017-05-04] MEDS: ASPIRIN 81 MG ENTERIC TAB PO (08:51)
[2017-05-04] MEDS: ISOSORBIDE MON. (ISMO,MONOKET) 20 MG TAB PO ×2 (08:51→18:50)
[2017-05-04] MEDS: ALLOPURINOL 300 MG TAB PO (08:51)
[2017-05-04 08:57] LABS: BEDSIDE GLUCOSE 134 MG/DL (83-110)
[2017-05-04 09:00] LABS: BEDSIDE GLUCOSE 128 MG/DL (83-110)
[2017-05-04 09:00] LABS: BEDSIDE GLUCOSE 133 MG/DL (83-110)
[2017-05-04] MEDS: CINACALCET 30 MG TAB (SENSIPAR) PO (10:26)
[2017-05-04] MEDS: FUROSEMIDE 80 MG TAB PO ×2 (10:27→18:42)
[2017-05-04 12:01] LABS: BEDSIDE GLUCOSE 77 MG/DL (83-110)
[2017-05-04 17:16] LABS: BEDSIDE GLUCOSE 110 MG/DL (83-110)
[2017-05-04] MEDS: RIVAROXABAN 10 MG TAB (XARELTO) PO (18:41)
[2017-05-04 20:41] LABS: BEDSIDE GLUCOSE 168 MG/DL (83-110)
[2017-05-04] MEDS: LATANOPROST 0.005% OPHTH SOLN 2.5 ML OU (21:00)
[2017-05-04] MEDS: ATORVASTATIN 20 MG TAB PO (21:10)
[2017-05-04] MEDS: VALSARTAN 80 MG TAB (DIOVAN) PO (21:11)
[2017-05-04] MEDS: LEVEMIR (INSULIN DETEMIR) 1 UNITS/0.01ML SC (21:12)
[2017-05-05] MEDS: HYDROmorphone HCL 1 MG/ML SYRINGE (J1170) IV ×5 (02:29→22:01)
[2017-05-05] MEDS: LEVOTHYROXINE 75MCG TABLET (0.075MG) PO (05:13)
[2017-05-05] MEDS: SLF 3 ML SYR IV ×3 (05:13→21:12)
[2017-05-05 05:28] LABS: BASO % 0.7 % (0.0-1.0); EOS # 0.3 10^3/uL (0.0-0.50); HEMATOCRIT 34.1 % (42.0-52.0); IMMATURE GRANULOCYTE % 0.2 % (0-3.0); LYMPH # 1.3 10^3/uL (1.5-4.5); LYMPH % 24.1 % (24.0-44.0); MEAN CORPUSCULAR HEMOGLOBIN 28.8 pg (27.0-33.0); MEAN CORPUSCULAR HGB CONC 32.3 g/dl (32.0-36.5); MEAN CORPUSCULAR VOLUME 89.3 fl (80.0-96.0); MONO # 0.5 10^3/uL (0.0-0.8); MONO % 9.8 % (0.0-5.0); NEUTROPHILS # 3.3 10^3/uL (1.8-7.7); NEUTROPHILS % 60.2 % (36.0-66.0); PLATELET COUNT, AUTOMATED 165 10^3/uL (150-450); RED BLOOD COUNT 3.82 10^6/uL (4.30-6.10); RED CELL DISTRIBUTION WIDTH 15.3 % (11.5-14.5); WHITE BLOOD COUNT 5.4 10^3/uL (4.0-10.0)
[2017-05-05 05:57] LABS: ALBUMIN 2.6 GM/DL (3.2-5.2); ALBUMIN/GLOBULIN RATIO 0.76 (1.00-1.93); ALKALINE PHOSPHATASE 68 U/L (45-117); ALT/SGPT 18 U/L (12-78); ANION GAP 7 MEQ/L (8-16); AST/SGOT 14 U/L (7-37); BILIRUBIN,TOTAL 0.5 MG/DL (0.2-1.0); BLOOD UREA NITROGEN 31 MG/DL (7-18); CARBON DIOXIDE LEVEL 30 MEQ/L (21-32); CHLORIDE LEVEL 108 MEQ/L (98-107); CREATININE FOR GFR 1.74 MG/DL (0.70-1.30); GLOMERULAR FILTRATION RATE 41.1 (>42); GLUCOSE, FASTING 131 MG/DL (70-100); MAGNESIUM LEVEL 2.4 MG/DL (1.8-2.4); POTASSIUM SERUM 3.7 MEQ/L (3.5-5.1); SODIUM LEVEL 145 MEQ/L (136-145)
[2017-05-05] MEDS: ASPIRIN 81 MG ENTERIC TAB PO (08:43)
[2017-05-05] MEDS: POTASSIUM CHLORIDE 10 MEQ SR TABLET PO ×2 (08:44→20:40)
[2017-05-05] MEDS: MULTIVITAMINS/MINERALS THERAP 1 TAB PO (08:44)
[2017-05-05] MEDS: ALLOPURINOL 300 MG TAB PO (08:44)
[2017-05-05] MEDS: METOPROLOL TART 12.5 MG PER 1/2 TAB PO ×2 (08:44→20:39)
[2017-05-05] MEDS: MIRALAX *UNIT DOSE* 17GM PACKET PO (08:45)
[2017-05-05] MEDS: OMEPRAZOLE 20 MG CAP PO (08:45)
[2017-05-05] MEDS: DOCUSATE SODIUM 100 MG CAP PO ×2 (08:45→20:40)
[2017-05-05] MEDS: HumaLOG INSULIN (NovoLOG) PER UNIT SC ×4 (08:45→20:40)
[2017-05-05] MEDS: FUROSEMIDE 80 MG TAB PO ×2 (09:10→16:58)
[2017-05-05] MEDS ORDERED: ISOSORBIDE MONONITRATE 10MG TABLET PO (09:42)
[2017-05-05] MEDS: ISOSORBIDE MONONITRATE 10MG TABLET PO (10:13)
[2017-05-05] MEDS: SODIUM CHLORIDE NASAL 0.65% SPRAY BTL (OCEAN) (13:36)
[2017-05-05] MEDS: RIVAROXABAN 10 MG TAB (XARELTO) PO (17:31)
[2017-05-05 17:44] LABS: BEDSIDE GLUCOSE 128 MG/DL (83-110)
[2017-05-05] MEDS: ISOSORBIDE MON. (ISMO,MONOKET) 20 MG TAB PO (18:47)
[2017-05-05] MEDS: VALSARTAN 80 MG TAB (DIOVAN) PO (20:39)
[2017-05-05] MEDS: ATORVASTATIN 20 MG TAB PO (20:39)
[2017-05-05] MEDS: LEVEMIR (INSULIN DETEMIR) 1 UNITS/0.01ML SC (20:41)
[2017-05-05] MEDS: LATANOPROST 0.005% OPHTH SOLN 2.5 ML OU (21:11)
[2017-05-06 00:19] LABS: BEDSIDE GLUCOSE 191 MG/DL (83-110)
[2017-05-06] MEDS: HYDROmorphone HCL 1 MG/ML SYRINGE (J1170) IV (01:19)
[2017-05-06] MEDS: SLF 3 ML SYR IV ×3 (06:15→22:12)
[2017-05-06] MEDS: LEVOTHYROXINE 75MCG TABLET (0.075MG) PO (06:15)
[2017-05-06] MEDS: CYCLOBENZAPRINE 10 MG TAB PO (06:15)
[2017-05-06 06:40] LABS: APPEARANCE, URINE CLEAR (CLEAR); BACTERIA, URINE AUTO NEGATIVE (NEGATIVE); BILIRUBIN, URINE AUTO NEGATIVE (NEGATIVE); BLOOD, URINE BLOOD NEGATIVE (NEGATIVE); COLOR, URINE YELLOW (YELLOW); GLUCOSE, URINE (UA) AUTO 1+ mg/dL (NEGATIVE); KETONE, URINE AUTO NEGATIVE (NEGATIVE); LEUKOCYTE ESTERASE, URINE AUTO NEGATIVE (NEGATIVE); NITRITE, URINE AUTO NEGATIVE (NEGATIVE); PROTEIN, URINE AUTO 3+ mg/dL (NEGATIVE); RBC, URINE AUTO 1 /HPF (0-3); SPECIFIC GRAVITY URINE AUTO 1.009 (1.002-1.035); SQUAMOUS EPITHELIAL CELL UR AU 0 /HPF (0-6); UROBILINOGEN, URINE AUTO 0.2 mg/dL (0.0-2.0); WBC, URINE AUTO 1 /HPF (0-3)
[2017-05-06 07:12] LABS: BASO % 0.7 % (0.0-1.0); EOS # 0.2 10^3/uL (0.0-0.50); EOS % 4.3 % (0.0-3.0); HEMATOCRIT 40.6 % (42.0-52.0); HEMOGLOBIN 12.9 g/dl (14.0-18.0); IMMATURE GRANULOCYTE % 0.4 % (0-3.0); LYMPH # 1.4 10^3/uL (1.5-4.5); MEAN CORPUSCULAR HEMOGLOBIN 28.4 pg (27.0-33.0); MEAN CORPUSCULAR HGB CONC 31.8 g/dl (32.0-36.5); MEAN CORPUSCULAR VOLUME 89.4 fl (80.0-96.0); MONO # 0.5 10^3/uL (0.0-0.8); MONO % 9.7 % (0.0-5.0); NEUTROPHILS # 3.4 10^3/uL (1.8-7.7); NEUTROPHILS % 59.9 % (36.0-66.0); PLATELET COUNT, AUTOMATED 190 10^3/uL (150-450); RED BLOOD COUNT 4.54 10^6/uL (4.30-6.10); RED CELL DISTRIBUTION WIDTH 15.2 % (11.5-14.5); WHITE BLOOD COUNT 5.6 10^3/uL (4.0-10.0)
[2017-05-06 07:50] LABS: ALBUMIN 3.1 GM/DL (3.2-5.2); ALBUMIN/GLOBULIN RATIO 0.94 (1.00-1.93); ALKALINE PHOSPHATASE 86 U/L (45-117); ALT/SGPT 24 U/L (12-78); ANION GAP 8 MEQ/L (8-16); AST/SGOT 20 U/L (7-37); BILIRUBIN,TOTAL 0.6 MG/DL (0.2-1.0); BLOOD UREA NITROGEN 37 MG/DL (7-18); CALCIUM LEVEL 8.9 MG/DL (8.8-10.2); CARBON DIOXIDE LEVEL 28 MEQ/L (21-32); CHLORIDE LEVEL 109 MEQ/L (98-107); CREATININE FOR GFR 1.72 MG/DL (0.70-1.30); GLOMERULAR FILTRATION RATE 41.7 (>42); GLUCOSE, FASTING 97 MG/DL (70-100); MAGNESIUM LEVEL 2.6 MG/DL (1.8-2.4); POTASSIUM SERUM 4.2 MEQ/L (3.5-5.1); SODIUM LEVEL 145 MEQ/L (136-145); TOTAL PROTEIN 6.4 GM/DL (6.4-8.2)
[2017-05-06] MEDS: HumaLOG INSULIN (NovoLOG) PER UNIT SC ×4 (07:52→21:00)
[2017-05-06] MEDS: MIRALAX *UNIT DOSE* 17GM PACKET PO (08:06)
[2017-05-06] MEDS: LIDOCAINE 5% (LIDODERM) PATCH TD (08:07)
[2017-05-06] MEDS: SODIUM CHLORIDE NASAL 0.65% SPRAY BTL (OCEAN) (08:07)
[2017-05-06] MEDS: METOPROLOL TART 12.5 MG PER 1/2 TAB PO ×2 (08:07→22:09)
[2017-05-06] MEDS: ISOSORBIDE MONONITRATE 10MG TABLET PO (08:07)
[2017-05-06] MEDS: OMEPRAZOLE 20 MG CAP PO (08:08)
[2017-05-06] MEDS: POTASSIUM CHLORIDE 10 MEQ SR TABLET PO ×2 (08:08→22:07)
[2017-05-06] MEDS: ALLOPURINOL 300 MG TAB PO (08:08)
[2017-05-06] MEDS: ASPIRIN 81 MG ENTERIC TAB PO (08:08)
[2017-05-06] MEDS: DOCUSATE SODIUM 100 MG CAP PO ×2 (08:08→22:06)
[2017-05-06] MEDS: MULTIVITAMINS/MINERALS THERAP 1 TAB PO (08:08)
[2017-05-06] MEDS: FUROSEMIDE 80 MG TAB PO ×2 (08:08→17:21)
[2017-05-06] MEDS: MOM 30ML SUSPENSION UDC PO (09:15)
[2017-05-06] MEDS: PERCOCET 5MG/325MG TAB PO ×2 (09:16→22:19)
[2017-05-06] MEDS: LevoFLOXacin 500 MG TABLET PO (09:16)
[2017-05-06] MEDS: RIVAROXABAN 10 MG TAB (XARELTO) PO (17:21)
[2017-05-06] MEDS: BISACODYL 10 MG SUPP PR (17:21)
[2017-05-06] MEDS: ISOSORBIDE MON. (ISMO,MONOKET) 20 MG TAB PO (17:24)
[2017-05-06] MEDS: ATORVASTATIN 20 MG TAB PO (22:06)
[2017-05-06] MEDS: ALPRAZolam 0.5 MG TAB PO (22:08)
[2017-05-06] MEDS: VALSARTAN 80 MG TAB (DIOVAN) PO (22:10)
[2017-05-06] MEDS: LATANOPROST 0.005% OPHTH SOLN 2.5 ML OU (22:11)
[2017-05-06] MEDS: LEVEMIR (INSULIN DETEMIR) 1 UNITS/0.01ML SC (22:11)
[2017-05-07 02:10] LABS: BEDSIDE GLUCOSE 137 MG/DL (83-110)
[2017-05-07 02:10] LABS: BEDSIDE GLUCOSE 126 MG/DL (83-110)
[2017-05-07 02:10] LABS: BEDSIDE GLUCOSE 232 MG/DL (83-110)
[2017-05-07] MEDS: PERCOCET 5MG/325MG TAB PO ×2 (03:20→08:08)
[2017-05-07] MEDS: SLF 3 ML SYR IV ×3 (06:22→22:44)
[2017-05-07] MEDS: LevoFLOXacin 250 MG TABLET PO (06:39)
[2017-05-07] MEDS: LEVOTHYROXINE 75MCG TABLET (0.075MG) PO (06:39)
[2017-05-07] MEDS: HYDROmorphone HCL 1 MG/ML SYRINGE (J1170) IV (06:40)
[2017-05-07 07:18] LABS: BASO % 0.8 % (0.0-1.0); EOS # 0.3 10^3/uL (0.0-0.50); EOS % 5.2 % (0.0-3.0); IMMATURE GRANULOCYTE % 0.2 % (0-3.0); LYMPH # 1.1 10^3/uL (1.5-4.5); LYMPH % 22.2 % (24.0-44.0); MEAN CORPUSCULAR HEMOGLOBIN 28.9 pg (27.0-33.0); MEAN CORPUSCULAR HGB CONC 32.4 g/dl (32.0-36.5); MEAN CORPUSCULAR VOLUME 89.5 fl (80.0-96.0); MONO # 0.5 10^3/uL (0.0-0.8); MONO % 10.8 % (0.0-5.0); NEUTROPHILS # 2.9 10^3/uL (1.8-7.7); NEUTROPHILS % 60.8 % (36.0-66.0); PLATELET COUNT, AUTOMATED 157 10^3/uL (150-450); RED CELL DISTRIBUTION WIDTH 15.2 % (11.5-14.5); WHITE BLOOD COUNT 4.8 10^3/uL (4.0-10.0)
[2017-05-07 07:29] LABS: ALBUMIN 2.5 GM/DL (3.2-5.2); ALBUMIN/GLOBULIN RATIO 0.76 (1.00-1.93); ALKALINE PHOSPHATASE 77 U/L (45-117); ALT/SGPT 19 U/L (12-78); ANION GAP 7 MEQ/L (8-16); AST/SGOT 13 U/L (7-37); BILIRUBIN,TOTAL 0.3 MG/DL (0.2-1.0); BLOOD UREA NITROGEN 45 MG/DL (7-18); CALCIUM LEVEL 8.9 MG/DL (8.8-10.2); CARBON DIOXIDE LEVEL 28 MEQ/L (21-32); CHLORIDE LEVEL 108 MEQ/L (98-107); CREATININE FOR GFR 1.82 MG/DL (0.70-1.30); GLOMERULAR FILTRATION RATE 39.1 (>42); GLUCOSE, FASTING 189 MG/DL (70-100); MAGNESIUM LEVEL 2.6 MG/DL (1.8-2.4); POTASSIUM SERUM 3.8 MEQ/L (3.5-5.1); SODIUM LEVEL 143 MEQ/L (136-145); TOTAL PROTEIN 5.8 GM/DL (6.4-8.2)
[2017-05-07] MEDS: LIDOCAINE 5% (LIDODERM) PATCH TD ×2 (08:06→20:15)
[2017-05-07] MEDS: MIRALAX *UNIT DOSE* 17GM PACKET PO (08:06)
[2017-05-07] MEDS: MOM 30ML SUSPENSION UDC PO (08:06)
[2017-05-07] MEDS: POTASSIUM CHLORIDE 10 MEQ SR TABLET PO ×2 (08:06→20:13)
[2017-05-07] MEDS: HumaLOG INSULIN (NovoLOG) PER UNIT SC ×4 (08:06→20:35)
[2017-05-07] MEDS: METOPROLOL TART 12.5 MG PER 1/2 TAB PO ×2 (08:07→20:12)
[2017-05-07] MEDS: FUROSEMIDE 80 MG TAB PO ×2 (08:07→17:39)
[2017-05-07] MEDS: DOCUSATE SODIUM 100 MG CAP PO ×2 (08:07→20:12)
[2017-05-07] MEDS: ALLOPURINOL 300 MG TAB PO (08:07)
[2017-05-07] MEDS: ISOSORBIDE MONONITRATE 10MG TABLET PO (08:07)
[2017-05-07] MEDS: MULTIVITAMINS/MINERALS THERAP 1 TAB PO (08:07)
[2017-05-07] MEDS: ASPIRIN 81 MG ENTERIC TAB PO (08:07)
[2017-05-07] MEDS: OMEPRAZOLE 20 MG CAP PO (08:08)
[2017-05-07] MEDS: SODIUM CHLORIDE NASAL 0.65% SPRAY BTL (OCEAN) ×2 (08:08→20:15)
[2017-05-07 12:10] LABS: BEDSIDE GLUCOSE 131 MG/DL (83-110)
[2017-05-07] MEDS: RIVAROXABAN 10 MG TAB (XARELTO) PO (17:39)
[2017-05-07] MEDS: ISOSORBIDE MON. (ISMO,MONOKET) 20 MG TAB PO (17:39)
[2017-05-07] MEDS: VALSARTAN 80 MG TAB (DIOVAN) PO (20:13)
[2017-05-07] MEDS: ATORVASTATIN 20 MG TAB PO (20:13)
[2017-05-07] MEDS: LEVEMIR (INSULIN DETEMIR) 1 UNITS/0.01ML SC (20:14)
[2017-05-07] MEDS: LATANOPROST 0.005% OPHTH SOLN 2.5 ML OU (20:14)
[2017-05-07 20:45] LABS: BEDSIDE GLUCOSE 170 MG/DL (83-110)
[2017-05-07 20:45] LABS: BEDSIDE GLUCOSE 186 MG/DL (83-110)
[2017-05-08] MEDS: HYDROmorphone HCL 1 MG/ML SYRINGE (J1170) IV (02:12)
[2017-05-08] MEDS: LevoFLOXacin 250 MG TABLET PO (05:08)
[2017-05-08] MEDS: LEVOTHYROXINE 75MCG TABLET (0.075MG) PO (05:08)
[2017-05-08] MEDS: SLF 3 ML SYR IV ×3 (05:09→22:00)
[2017-05-08] MEDS: PERCOCET 5MG/325MG TAB PO ×2 (05:11→10:15)
[2017-05-08 06:23] LABS: BASO % 0.8 % (0.0-1.0); EOS # 0.3 10^3/uL (0.0-0.50); HEMOGLOBIN 11.1 g/dl (14.0-18.0); IMMATURE GRANULOCYTE % 0.2 % (0-3.0); LYMPH # 1.2 10^3/uL (1.5-4.5); LYMPH % 22.9 % (24.0-44.0); MEAN CORPUSCULAR HEMOGLOBIN 28.3 pg (27.0-33.0); MEAN CORPUSCULAR HGB CONC 31.7 g/dl (32.0-36.5); MEAN CORPUSCULAR VOLUME 89.3 fl (80.0-96.0); MONO # 0.6 10^3/uL (0.0-0.8); MONO % 10.9 % (0.0-5.0); NEUTROPHILS # 3.2 10^3/uL (1.8-7.7); NEUTROPHILS % 60.2 % (36.0-66.0); PLATELET COUNT, AUTOMATED 175 10^3/uL (150-450); RED BLOOD COUNT 3.92 10^6/uL (4.30-6.10); RED CELL DISTRIBUTION WIDTH 15.3 % (11.5-14.5); WHITE BLOOD COUNT 5.2 10^3/uL (4.0-10.0)
[2017-05-08 06:48] LABS: ALBUMIN 2.5 GM/DL (3.2-5.2); ALBUMIN/GLOBULIN RATIO 0.69 (1.00-1.93); ALKALINE PHOSPHATASE 75 U/L (45-117); ALT/SGPT 20 U/L (12-78); ANION GAP 7 MEQ/L (8-16); AST/SGOT 15 U/L (7-37); BILIRUBIN,TOTAL 0.4 MG/DL (0.2-1.0); BLOOD UREA NITROGEN 44 MG/DL (7-18); CALCIUM LEVEL 9.4 MG/DL (8.8-10.2); CARBON DIOXIDE LEVEL 30 MEQ/L (21-32); CHLORIDE LEVEL 107 MEQ/L (98-107); GLOMERULAR FILTRATION RATE 37.2 (>42); GLUCOSE, FASTING 147 MG/DL (70-100); MAGNESIUM LEVEL 2.6 MG/DL (1.8-2.4); POTASSIUM SERUM 4.2 MEQ/L (3.5-5.1); SODIUM LEVEL 144 MEQ/L (136-145); TOTAL PROTEIN 6.1 GM/DL (6.4-8.2)
[2017-05-08] MEDS: HumaLOG INSULIN (NovoLOG) PER UNIT SC ×4 (08:24→20:31)
[2017-05-08] MEDS: ASPIRIN 81 MG ENTERIC TAB PO (08:25)
[2017-05-08] MEDS: METOPROLOL TART 12.5 MG PER 1/2 TAB PO ×2 (08:25→20:30)
[2017-05-08] MEDS: CINACALCET 30 MG TAB (SENSIPAR) PO (08:25)
[2017-05-08] MEDS: POTASSIUM CHLORIDE 10 MEQ SR TABLET PO ×2 (08:25→20:31)
[2017-05-08] MEDS: ALLOPURINOL 300 MG TAB PO (08:26)
[2017-05-08] MEDS: DOCUSATE SODIUM 100 MG CAP PO ×2 (08:26→20:30)
[2017-05-08] MEDS: OMEPRAZOLE 20 MG CAP PO (08:26)
[2017-05-08] MEDS: MULTIVITAMINS/MINERALS THERAP 1 TAB PO (08:26)
[2017-05-08] MEDS: MIRALAX *UNIT DOSE* 17GM PACKET PO (08:26)
[2017-05-08] MEDS: ISOSORBIDE MONONITRATE 10MG TABLET PO (08:26)
[2017-05-08] MEDS: ISOSORBIDE MON. (ISMO,MONOKET) 20 MG TAB PO (17:44)
[2017-05-08] MEDS: RIVAROXABAN 10 MG TAB (XARELTO) PO (17:44)
[2017-05-08] MEDS: VALSARTAN 80 MG TAB (DIOVAN) PO (20:29)
[2017-05-08] MEDS: ATORVASTATIN 20 MG TAB PO (20:30)
[2017-05-08] MEDS: LATANOPROST 0.005% OPHTH SOLN 2.5 ML OU (20:31)
[2017-05-08] MEDS: LEVEMIR (INSULIN DETEMIR) 1 UNITS/0.01ML SC (20:32)
[2017-05-09] MEDS: PERCOCET 5MG/325MG TAB PO ×3 (00:57→15:16)
[2017-05-09 03:14] LABS: BEDSIDE GLUCOSE 216 MG/DL (83-110)
[2017-05-09 03:16] LABS: BEDSIDE GLUCOSE 116 MG/DL (83-110)
[2017-05-09 03:16] LABS: BEDSIDE GLUCOSE 224 MG/DL (83-110)
[2017-05-09] MEDS: LEVOTHYROXINE 75MCG TABLET (0.075MG) PO (05:27)
[2017-05-09] MEDS: LevoFLOXacin 250 MG TABLET PO (05:27)
[2017-05-09] MEDS: SLF 3 ML SYR IV ×3 (05:28→21:39)
[2017-05-09 06:10] LABS: BASO % 0.8 % (0.0-1.0); EOS # 0.2 10^3/uL (0.0-0.50); EOS % 4.4 % (0.0-3.0); HEMATOCRIT 33.7 % (42.0-52.0); HEMOGLOBIN 10.7 g/dl (14.0-18.0); IMMATURE GRANULOCYTE % 0.2 % (0-3.0); LYMPH # 1.3 10^3/uL (1.5-4.5); LYMPH % 27.5 % (24.0-44.0); MEAN CORPUSCULAR HEMOGLOBIN 28.2 pg (27.0-33.0); MEAN CORPUSCULAR HGB CONC 31.8 g/dl (32.0-36.5); MEAN CORPUSCULAR VOLUME 88.9 fl (80.0-96.0); MONO # 0.4 10^3/uL (0.0-0.8); MONO % 8.9 % (0.0-5.0); NEUTROPHILS # 2.7 10^3/uL (1.8-7.7); NEUTROPHILS % 58.2 % (36.0-66.0); PLATELET COUNT, AUTOMATED 160 10^3/uL (150-450); RED BLOOD COUNT 3.79 10^6/uL (4.30-6.10); RED CELL DISTRIBUTION WIDTH 15.3 % (11.5-14.5); WHITE BLOOD COUNT 4.7 10^3/uL (4.0-10.0)
[2017-05-09 06:36] LABS: ALBUMIN 2.5 GM/DL (3.2-5.2); ALBUMIN/GLOBULIN RATIO 0.71 (1.00-1.93); ALKALINE PHOSPHATASE 73 U/L (45-117); ALT/SGPT 19 U/L (12-78); ANION GAP 4 MEQ/L (8-16); AST/SGOT 11 U/L (7-37); BILIRUBIN,TOTAL 0.3 MG/DL (0.2-1.0); BLOOD UREA NITROGEN 45 MG/DL (7-18); CALCIUM LEVEL 8.7 MG/DL (8.8-10.2); CARBON DIOXIDE LEVEL 31 MEQ/L (21-32); CHLORIDE LEVEL 108 MEQ/L (98-107); CREATININE FOR GFR 1.82 MG/DL (0.70-1.30); GLOMERULAR FILTRATION RATE 39.1 (>42); GLUCOSE, FASTING 163 MG/DL (70-100); MAGNESIUM LEVEL 2.7 MG/DL (1.8-2.4); POTASSIUM SERUM 4.6 MEQ/L (3.5-5.1); SODIUM LEVEL 143 MEQ/L (136-145)
[2017-05-09] MEDS: METOPROLOL TART 12.5 MG PER 1/2 TAB PO ×2 (07:52→21:37)
[2017-05-09] MEDS: OMEPRAZOLE 20 MG CAP PO (07:52)
[2017-05-09] MEDS: ISOSORBIDE MONONITRATE 10MG TABLET PO (07:52)
[2017-05-09] MEDS: ALLOPURINOL 300 MG TAB PO (07:52)
[2017-05-09] MEDS: POTASSIUM CHLORIDE 10 MEQ SR TABLET PO ×2 (07:53→21:36)
[2017-05-09] MEDS: DOCUSATE SODIUM 100 MG CAP PO ×2 (07:53→21:35)
[2017-05-09] MEDS: ASPIRIN 81 MG ENTERIC TAB PO (07:53)
[2017-05-09] MEDS: MIRALAX *UNIT DOSE* 17GM PACKET PO (07:54)
[2017-05-09] MEDS: MULTIVITAMINS/MINERALS THERAP 1 TAB PO (07:54)
[2017-05-09] MEDS: HumaLOG INSULIN (NovoLOG) PER UNIT SC ×4 (07:55→21:00)
[2017-05-09] MEDS: ISOSORBIDE MON. (ISMO,MONOKET) 20 MG TAB PO (18:19)
[2017-05-09] MEDS: RIVAROXABAN 10 MG TAB (XARELTO) PO (18:19)
[2017-05-09] MEDS: ATORVASTATIN 20 MG TAB PO (21:35)
[2017-05-09] MEDS: VALSARTAN 80 MG TAB (DIOVAN) PO (21:36)
[2017-05-09] MEDS: LEVEMIR (INSULIN DETEMIR) 1 UNITS/0.01ML SC (21:38)
[2017-05-09] MEDS: LATANOPROST 0.005% OPHTH SOLN 2.5 ML OU (21:38)
[2017-05-10] MEDS: PERCOCET 5MG/325MG TAB PO ×3 (01:44→12:21)
[2017-05-10] MEDS: SLF 3 ML SYR IV ×4 (06:00→21:54)
[2017-05-10 06:07] LABS: BASO % 0.6 % (0.0-1.0); EOS # 0.2 10^3/uL (0.0-0.50); EOS % 4.3 % (0.0-3.0); HEMATOCRIT 34.7 % (42.0-52.0); IMMATURE GRANULOCYTE % 0.2 % (0-3.0); LYMPH # 1.4 10^3/uL (1.5-4.5); LYMPH % 28.3 % (24.0-44.0); MEAN CORPUSCULAR HEMOGLOBIN 28.1 pg (27.0-33.0); MEAN CORPUSCULAR HGB CONC 31.7 g/dl (32.0-36.5); MEAN CORPUSCULAR VOLUME 88.5 fl (80.0-96.0); MONO # 0.4 10^3/uL (0.0-0.8); MONO % 7.9 % (0.0-5.0); NEUTROPHILS # 2.9 10^3/uL (1.8-7.7); NEUTROPHILS % 58.7 % (36.0-66.0); PLATELET COUNT, AUTOMATED 158 10^3/uL (150-450); RED BLOOD COUNT 3.92 10^6/uL (4.30-6.10); RED CELL DISTRIBUTION WIDTH 15.2 % (11.5-14.5); WHITE BLOOD COUNT 4.9 10^3/uL (4.0-10.0)
[2017-05-10] MEDS: LEVOTHYROXINE 75MCG TABLET (0.075MG) PO (06:12)
[2017-05-10] MEDS: LevoFLOXacin 250 MG TABLET PO (06:12)
[2017-05-10 06:32] LABS: ALBUMIN 2.4 GM/DL (3.2-5.2); ALBUMIN/GLOBULIN RATIO 0.71 (1.00-1.93); ALKALINE PHOSPHATASE 76 U/L (45-117); ALT/SGPT 22 U/L (12-78); ANION GAP 6 MEQ/L (8-16); AST/SGOT 16 U/L (7-37); BILIRUBIN,TOTAL 0.3 MG/DL (0.2-1.0); BLOOD UREA NITROGEN 42 MG/DL (7-18); CALCIUM LEVEL 8.9 MG/DL (8.8-10.2); CARBON DIOXIDE LEVEL 27 MEQ/L (21-32); CHLORIDE LEVEL 108 MEQ/L (98-107); CREATININE FOR GFR 1.88 MG/DL (0.70-1.30); GLOMERULAR FILTRATION RATE 37.6 (>42); GLUCOSE, FASTING 185 MG/DL (70-100); MAGNESIUM LEVEL 2.5 MG/DL (1.8-2.4); POTASSIUM SERUM 4.4 MEQ/L (3.5-5.1); SODIUM LEVEL 141 MEQ/L (136-145); TOTAL PROTEIN 5.8 GM/DL (6.4-8.2)
[2017-05-10] MEDS: ONDANSETRON 4MG/2ML VIAL (J2405) IV (06:49)
[2017-05-10] MEDS: ISOSORBIDE MONONITRATE 10MG TABLET PO (08:24)
[2017-05-10] MEDS: MIRALAX *UNIT DOSE* 17GM PACKET PO (08:27)
[2017-05-10] MEDS: ALLOPURINOL 300 MG TAB PO (08:27)
[2017-05-10] MEDS: DOCUSATE SODIUM 100 MG CAP PO ×2 (08:27→21:53)
[2017-05-10] MEDS: ISOSORBIDE MON. (ISMO,MONOKET) 20 MG TAB PO ×2 (08:27→18:17)
[2017-05-10] MEDS: POTASSIUM CHLORIDE 10 MEQ SR TABLET PO ×2 (08:28→21:54)
[2017-05-10] MEDS: MULTIVITAMINS/MINERALS THERAP 1 TAB PO (08:28)
[2017-05-10] MEDS: OMEPRAZOLE 20 MG CAP PO (08:28)
[2017-05-10] MEDS: METOPROLOL TART 12.5 MG PER 1/2 TAB PO ×2 (08:28→21:53)
[2017-05-10] MEDS: ASPIRIN 81 MG ENTERIC TAB PO (08:28)
[2017-05-10] MEDS: HumaLOG INSULIN (NovoLOG) PER UNIT SC ×4 (08:30→21:00)
[2017-05-10] MEDS: CINACALCET 30 MG TAB (SENSIPAR) PO (10:01)
[2017-05-10] MEDS: RIVAROXABAN 10 MG TAB (XARELTO) PO (18:17)
[2017-05-10] MEDS: LEVEMIR (INSULIN DETEMIR) 1 UNITS/0.01ML SC (21:52)
[2017-05-10] MEDS: ATORVASTATIN 20 MG TAB PO (21:53)
[2017-05-10] MEDS: VALSARTAN 80 MG TAB (DIOVAN) PO (21:53)
[2017-05-10] MEDS: LATANOPROST 0.005% OPHTH SOLN 2.5 ML OU (21:54)
[2017-05-11] MEDS: PERCOCET 5MG/325MG TAB PO ×2 (01:52→08:54)
[2017-05-11] MEDS: SLF 3 ML SYR IV ×3 (06:00→21:39)
[2017-05-11] MEDS: LevoFLOXacin 250 MG TABLET PO (06:38)
[2017-05-11] MEDS: LEVOTHYROXINE 75MCG TABLET (0.075MG) PO (06:38)
[2017-05-11 06:58] LABS: BASO % 0.6 % (0.0-1.0); EOS # 0.2 10^3/uL (0.0-0.50); EOS % 4.1 % (0.0-3.0); HEMOGLOBIN 11.1 g/dl (14.0-18.0); IMMATURE GRANULOCYTE % 0.4 % (0-3.0); LYMPH # 1.3 10^3/uL (1.5-4.5); LYMPH % 26.4 % (24.0-44.0); MEAN CORPUSCULAR HEMOGLOBIN 28.5 pg (27.0-33.0); MEAN CORPUSCULAR HGB CONC 31.7 g/dl (32.0-36.5); MEAN CORPUSCULAR VOLUME 89.7 fl (80.0-96.0); MONO # 0.4 10^3/uL (0.0-0.8); MONO % 9.1 % (0.0-5.0); NEUTROPHILS # 2.9 10^3/uL (1.8-7.7); NEUTROPHILS % 59.4 % (36.0-66.0); PLATELET COUNT, AUTOMATED 165 10^3/uL (150-450); RED CELL DISTRIBUTION WIDTH 15.2 % (11.5-14.5); WHITE BLOOD COUNT 4.9 10^3/uL (4.0-10.0)
[2017-05-11 07:17] LABS: ANION GAP 6 MEQ/L (8-16); BLOOD UREA NITROGEN 43 MG/DL (7-18); CALCIUM LEVEL 8.9 MG/DL (8.8-10.2); CARBON DIOXIDE LEVEL 26 MEQ/L (21-32); CHLORIDE LEVEL 111 MEQ/L (98-107); CREATININE FOR GFR 1.86 MG/DL (0.70-1.30); GLOMERULAR FILTRATION RATE 38.1 (>42); GLUCOSE, FASTING 164 MG/DL (70-100); MAGNESIUM LEVEL 2.4 MG/DL (1.8-2.4); POTASSIUM SERUM 4.7 MEQ/L (3.5-5.1); SODIUM LEVEL 143 MEQ/L (136-145)
[2017-05-11] MEDS: HumaLOG INSULIN (NovoLOG) PER UNIT SC ×4 (08:52→21:00)
[2017-05-11] MEDS: MIRALAX *UNIT DOSE* 17GM PACKET PO (08:52)
[2017-05-11] MEDS: POTASSIUM CHLORIDE 10 MEQ SR TABLET PO ×2 (08:53→21:37)
[2017-05-11] MEDS: METOPROLOL TART 12.5 MG PER 1/2 TAB PO ×2 (08:53→21:37)
[2017-05-11] MEDS: ASPIRIN 81 MG ENTERIC TAB PO (08:54)
[2017-05-11] MEDS: ALLOPURINOL 300 MG TAB PO (08:54)
[2017-05-11] MEDS: OMEPRAZOLE 20 MG CAP PO (08:54)
[2017-05-11] MEDS: DOCUSATE SODIUM 100 MG CAP PO ×2 (08:54→21:36)
[2017-05-11] MEDS: MULTIVITAMINS/MINERALS THERAP 1 TAB PO (08:54)
[2017-05-11] MEDS: FUROSEMIDE 80 MG TAB PO (08:54)
[2017-05-11] MEDS: CINACALCET 30 MG TAB (SENSIPAR) PO (09:00)
[2017-05-11] MEDS: ISOSORBIDE MONONITRATE 10MG TABLET PO (09:08)
[2017-05-11 17:53] LABS: APPEARANCE, URINE CLEAR (CLEAR); BACTERIA, URINE AUTO 1+ (NEGATIVE); BILIRUBIN, URINE AUTO NEGATIVE (NEGATIVE); BLOOD, URINE BLOOD NEGATIVE (NEGATIVE); COLOR, URINE STRAW (YELLOW); GLUCOSE, URINE (UA) AUTO 1+ mg/dL (NEGATIVE); KETONE, URINE AUTO NEGATIVE (NEGATIVE); LEUKOCYTE ESTERASE, URINE AUTO NEGATIVE (NEGATIVE); MUCUS, URINE SMALL (NEGATIVE); NITRITE, URINE AUTO NEGATIVE (NEGATIVE); PROTEIN, URINE AUTO 2+ mg/dL (NEGATIVE); RBC, URINE AUTO 1 /HPF (0-3); SPECIFIC GRAVITY URINE AUTO 1.009 (1.002-1.035); SQUAMOUS EPITHELIAL CELL UR AU 0 /HPF (0-6); UROBILINOGEN, URINE AUTO 0.2 mg/dL (0.0-2.0); WBC, URINE AUTO 0 /HPF (0-3)
[2017-05-11] MEDS: RIVAROXABAN 10 MG TAB (XARELTO) PO (17:53)
[2017-05-11] MEDS: FUROSEMIDE 40 MG TAB PO (17:53)
[2017-05-11] MEDS: LACTULOSE 20 GM/30 ML SYRUP UD PO (20:43)
[2017-05-11] MEDS: ATORVASTATIN 20 MG TAB PO (21:36)
[2017-05-11] MEDS: ACETAMINOPHEN 500 MG TAB PO (21:36)
[2017-05-11] MEDS: VALSARTAN 80 MG TAB (DIOVAN) PO (21:37)
[2017-05-11] MEDS: LEVEMIR (INSULIN DETEMIR) 1 UNITS/0.01ML SC (21:38)
[2017-05-11] MEDS: LATANOPROST 0.005% OPHTH SOLN 2.5 ML OU (21:38)
[2017-05-12] MEDS: PERCOCET 5MG/325MG TAB PO ×4 (01:10→22:21)
[2017-05-12] MEDS: SLF 3 ML SYR IV ×3 (06:00→22:22)
[2017-05-12] MEDS: LevoFLOXacin 250 MG TABLET PO (06:16)
[2017-05-12] MEDS: LEVOTHYROXINE 75MCG TABLET (0.075MG) PO (06:16)
[2017-05-12 07:18] LABS: BASO % 0.6 % (0.0-1.0); EOS # 0.2 10^3/uL (0.0-0.50); EOS % 4.3 % (0.0-3.0); HEMATOCRIT 34.2 % (42.0-52.0); HEMOGLOBIN 11.2 g/dl (14.0-18.0); IMMATURE GRANULOCYTE % 0.4 % (0-3.0); LYMPH # 1.2 10^3/uL (1.5-4.5); MEAN CORPUSCULAR HEMOGLOBIN 28.8 pg (27.0-33.0); MEAN CORPUSCULAR HGB CONC 32.7 g/dl (32.0-36.5); MEAN CORPUSCULAR VOLUME 87.9 fl (80.0-96.0); MONO # 0.5 10^3/uL (0.0-0.8); MONO % 9.9 % (0.0-5.0); NEUTROPHILS # 3.1 10^3/uL (1.8-7.7); NEUTROPHILS % 60.8 % (36.0-66.0); PLATELET COUNT, AUTOMATED 145 10^3/uL (150-450); RED BLOOD COUNT 3.89 10^6/uL (4.30-6.10); RED CELL DISTRIBUTION WIDTH 15.1 % (11.5-14.5); WHITE BLOOD COUNT 5.1 10^3/uL (4.0-10.0)
[2017-05-12 07:33] LABS: ANION GAP 7 MEQ/L (8-16); BLOOD UREA NITROGEN 43 MG/DL (7-18); CALCIUM LEVEL 8.6 MG/DL (8.8-10.2); CARBON DIOXIDE LEVEL 26 MEQ/L (21-32); CHLORIDE LEVEL 110 MEQ/L (98-107); GLOMERULAR FILTRATION RATE 42.3 (>42); GLUCOSE, FASTING 110 MG/DL (70-100); MAGNESIUM LEVEL 2.3 MG/DL (1.8-2.4); SODIUM LEVEL 143 MEQ/L (136-145)
[2017-05-12 08:27] LABS: BEDSIDE GLUCOSE 181 MG/DL (83-110)
[2017-05-12 08:27] LABS: BEDSIDE GLUCOSE 102 MG/DL (83-110)
[2017-05-12 08:27] LABS: BEDSIDE GLUCOSE 165 MG/DL (83-110)
[2017-05-12 08:27] LABS: BEDSIDE GLUCOSE 119 MG/DL (83-110)
[2017-05-12 08:27] LABS: BEDSIDE GLUCOSE 107 MG/DL (83-110)
[2017-05-12 08:28] LABS: BEDSIDE GLUCOSE 160 MG/DL (83-110)
[2017-05-12] MEDS: HumaLOG INSULIN (NovoLOG) PER UNIT SC ×4 (08:42→21:00)
[2017-05-12] MEDS: METOPROLOL TART 12.5 MG PER 1/2 TAB PO ×2 (08:42→22:20)
[2017-05-12] MEDS: ISOSORBIDE MONONITRATE 10MG TABLET PO (08:42)
[2017-05-12] MEDS: MIRALAX *UNIT DOSE* 17GM PACKET PO (08:42)
[2017-05-12] MEDS: POTASSIUM CHLORIDE 10 MEQ SR TABLET PO ×2 (08:43→22:20)
[2017-05-12] MEDS: OMEPRAZOLE 20 MG CAP PO (08:43)
[2017-05-12] MEDS: ASPIRIN 81 MG ENTERIC TAB PO (08:43)
[2017-05-12] MEDS: FUROSEMIDE 40 MG TAB PO ×2 (08:43→17:04)
[2017-05-12] MEDS: DOCUSATE SODIUM 100 MG CAP PO ×2 (08:43→22:18)
[2017-05-12] MEDS: ALLOPURINOL 300 MG TAB PO (08:43)
[2017-05-12] MEDS: MULTIVITAMINS/MINERALS THERAP 1 TAB PO (08:43)
[2017-05-12 11:43] LABS: BEDSIDE GLUCOSE 171 MG/DL (83-110)
[2017-05-12] MEDS: LACTULOSE 20 GM/30 ML SYRUP UD PO (14:25)
[2017-05-12] MEDS: LIDOCAINE 5% (LIDODERM) PATCH TD (14:25)
[2017-05-12] MEDS: SIMETHICONE 80 MG CHEW TAB PO ×2 (14:25→23:01)
[2017-05-12] MEDS: ISOSORBIDE MON. (ISMO,MONOKET) 20 MG TAB PO (17:03)
[2017-05-12] MEDS: RIVAROXABAN 10 MG TAB (XARELTO) PO (17:04)
[2017-05-12 18:01] LABS: BEDSIDE GLUCOSE 108 MG/DL (83-110)
[2017-05-12 21:05] LABS: BEDSIDE GLUCOSE 160 MG/DL (83-110)
[2017-05-12 21:47] LABS: BEDSIDE GLUCOSE 159 MG/DL (83-110)
[2017-05-12 21:47] LABS: BEDSIDE GLUCOSE 181 MG/DL (83-110)
[2017-05-12 21:47] LABS: BEDSIDE GLUCOSE 134 MG/DL (83-110)
[2017-05-12] MEDS: ATORVASTATIN 20 MG TAB PO (22:19)
[2017-05-12] MEDS: VALSARTAN 80 MG TAB (DIOVAN) PO (22:19)
[2017-05-12] MEDS: LEVEMIR (INSULIN DETEMIR) 1 UNITS/0.01ML SC (22:22)
[2017-05-12] MEDS: LATANOPROST 0.005% OPHTH SOLN 2.5 ML OU (22:22)
[2017-05-12] MEDS: ONDANSETRON 4MG/2ML VIAL (J2405) IV (23:01)
[2017-05-13] MEDS: LEVOTHYROXINE 75MCG TABLET (0.075MG) PO (06:02)
[2017-05-13] MEDS: PERCOCET 5MG/325MG TAB PO ×3 (06:02→21:06)
[2017-05-13] MEDS: LevoFLOXacin 250 MG TABLET PO (06:02)
[2017-05-13] MEDS: SLF 3 ML SYR IV ×3 (06:03→21:21)
[2017-05-13] MEDS: LACTULOSE 20 GM/30 ML SYRUP UD PO (06:07)
[2017-05-13 07:02] LABS: BASO % 0.6 % (0.0-1.0); EOS # 0.2 10^3/uL (0.0-0.50); EOS % 4.5 % (0.0-3.0); HEMATOCRIT 36.5 % (42.0-52.0); HEMOGLOBIN 11.6 g/dl (14.0-18.0); IMMATURE GRANULOCYTE % 0.6 % (0-3.0); LYMPH # 1.2 10^3/uL (1.5-4.5); LYMPH % 21.5 % (24.0-44.0); MEAN CORPUSCULAR HEMOGLOBIN 28.4 pg (27.0-33.0); MEAN CORPUSCULAR HGB CONC 31.8 g/dl (32.0-36.5); MEAN CORPUSCULAR VOLUME 89.2 fl (80.0-96.0); MONO # 0.5 10^3/uL (0.0-0.8); MONO % 9.5 % (0.0-5.0); NEUTROPHILS # 3.4 10^3/uL (1.8-7.7); NEUTROPHILS % 63.3 % (36.0-66.0); PLATELET COUNT, AUTOMATED 159 10^3/uL (150-450); RED BLOOD COUNT 4.09 10^6/uL (4.30-6.10); RED CELL DISTRIBUTION WIDTH 15.3 % (11.5-14.5); WHITE BLOOD COUNT 5.4 10^3/uL (4.0-10.0)
[2017-05-13 07:26] LABS: ANION GAP 6 MEQ/L (8-16); BLOOD UREA NITROGEN 40 MG/DL (7-18); CARBON DIOXIDE LEVEL 28 MEQ/L (21-32); CHLORIDE LEVEL 110 MEQ/L (98-107); CREATININE FOR GFR 1.62 MG/DL (0.70-1.30); GLOMERULAR FILTRATION RATE 44.7 (>42); GLUCOSE, FASTING 107 MG/DL (70-100); MAGNESIUM LEVEL 2.4 MG/DL (1.8-2.4); POTASSIUM SERUM 4.1 MEQ/L (3.5-5.1); SODIUM LEVEL 144 MEQ/L (136-145)
[2017-05-13] MEDS: MIRALAX *UNIT DOSE* 17GM PACKET PO (08:28)
[2017-05-13] MEDS: LIDOCAINE 5% (LIDODERM) PATCH TD (08:28)
[2017-05-13] MEDS: HumaLOG INSULIN (NovoLOG) PER UNIT SC ×4 (08:28→21:00)
[2017-05-13] MEDS: SIMETHICONE 80 MG CHEW TAB PO (08:29)
[2017-05-13] MEDS: ISOSORBIDE MONONITRATE 10MG TABLET PO (08:29)
[2017-05-13] MEDS: MULTIVITAMINS/MINERALS THERAP 1 TAB PO (08:29)
[2017-05-13] MEDS: METOPROLOL TART 12.5 MG PER 1/2 TAB PO ×2 (08:29→21:28)
[2017-05-13] MEDS: ALLOPURINOL 300 MG TAB PO (08:29)
[2017-05-13] MEDS: ASPIRIN 81 MG ENTERIC TAB PO (08:29)
[2017-05-13] MEDS: OMEPRAZOLE 20 MG CAP PO (08:29)
[2017-05-13] MEDS: FUROSEMIDE 40 MG TAB PO ×2 (08:30→17:45)
[2017-05-13] MEDS: DOCUSATE SODIUM 100 MG CAP PO ×2 (08:30→21:05)
[2017-05-13] MEDS: POTASSIUM CHLORIDE 10 MEQ SR TABLET PO ×2 (08:31→21:06)
[2017-05-13 12:30] LABS: BEDSIDE GLUCOSE 136 MG/DL (83-110)
[2017-05-13] MEDS ORDERED: MORPHINE 4 MG/ML 1ML VIAL (J2270) As Ordered (14:40)
[2017-05-13] MEDS: MORPHINE 4 MG/ML 1ML VIAL (J2270) IV (15:04)
[2017-05-13] MEDS: CYCLOBENZAPRINE 5MG TABLET PO (17:44)
[2017-05-13] MEDS: RIVAROXABAN 10 MG TAB (XARELTO) PO (17:44)
[2017-05-13 17:45] LABS: BEDSIDE GLUCOSE 160 MG/DL (83-110)
[2017-05-13] MEDS: ISOSORBIDE MON. (ISMO,MONOKET) 20 MG TAB PO (17:45)
[2017-05-13] MEDS: ATORVASTATIN 20 MG TAB PO (21:06)
[2017-05-13] MEDS: ONDANSETRON 4MG/2ML VIAL (J2405) IV (21:15)
[2017-05-13] MEDS: LATANOPROST 0.005% OPHTH SOLN 2.5 ML OU (21:20)
[2017-05-13] MEDS: VALSARTAN 80 MG TAB (DIOVAN) PO (21:27)
[2017-05-13] MEDS: LEVEMIR (INSULIN DETEMIR) 1 UNITS/0.01ML SC (21:28)
[2017-05-13] MEDS: **NOTE PATIENT COMMENT** MISC XX (21:30)
[2017-05-13 21:37] LABS: BEDSIDE GLUCOSE 162 MG/DL (83-110)
[2017-05-14] MEDS: PERCOCET 5MG/325MG TAB PO ×3 (02:36→22:10)
[2017-05-14] MEDS: LEVOTHYROXINE 75MCG TABLET (0.075MG) PO (06:25)
[2017-05-14] MEDS: CYCLOBENZAPRINE 5MG TABLET PO (06:25)
[2017-05-14] MEDS: LevoFLOXacin 250 MG TABLET PO (06:25)
[2017-05-14] MEDS: SLF 3 ML SYR IV ×3 (06:34→21:54)
[2017-05-14 06:53] LABS: BASO % 0.6 % (0.0-1.0); EOS # 0.2 10^3/uL (0.0-0.50); EOS % 3.6 % (0.0-3.0); HEMATOCRIT 36.3 % (42.0-52.0); HEMOGLOBIN 11.6 g/dl (14.0-18.0); IMMATURE GRANULOCYTE % 0.2 % (0-3.0); LYMPH # 1.2 10^3/uL (1.5-4.5); LYMPH % 24.2 % (24.0-44.0); MEAN CORPUSCULAR HEMOGLOBIN 28.3 pg (27.0-33.0); MEAN CORPUSCULAR VOLUME 88.5 fl (80.0-96.0); MONO # 0.4 10^3/uL (0.0-0.8); MONO % 7.6 % (0.0-5.0); NEUTROPHILS # 3.2 10^3/uL (1.8-7.7); NEUTROPHILS % 63.8 % (36.0-66.0); PLATELET COUNT, AUTOMATED 169 10^3/uL (150-450)
[2017-05-14 07:11] LABS: ANION GAP 6 MEQ/L (8-16); BLOOD UREA NITROGEN 39 MG/DL (7-18); CALCIUM LEVEL 9.2 MG/DL (8.8-10.2); CARBON DIOXIDE LEVEL 29 MEQ/L (21-32); CHLORIDE LEVEL 109 MEQ/L (98-107); GLOMERULAR FILTRATION RATE 42.3 (>42); GLUCOSE, FASTING 113 MG/DL (70-100); MAGNESIUM LEVEL 2.5 MG/DL (1.8-2.4); POTASSIUM SERUM 4.3 MEQ/L (3.5-5.1); SODIUM LEVEL 144 MEQ/L (136-145)
[2017-05-14] MEDS: ALLOPURINOL 300 MG TAB PO (08:28)
[2017-05-14] MEDS: HumaLOG INSULIN (NovoLOG) PER UNIT SC ×4 (08:28→21:00)
[2017-05-14] MEDS: MULTIVITAMINS/MINERALS THERAP 1 TAB PO (08:28)
[2017-05-14] MEDS: DOCUSATE SODIUM 100 MG CAP PO ×2 (08:28→21:50)
[2017-05-14] MEDS: FUROSEMIDE 40 MG TAB PO ×2 (08:29→18:05)
[2017-05-14] MEDS: ALPRAZolam 0.5 MG TAB PO (08:29)
[2017-05-14] MEDS: METOPROLOL TART 12.5 MG PER 1/2 TAB PO ×2 (08:29→21:52)
[2017-05-14] MEDS: ASPIRIN 81 MG ENTERIC TAB PO (08:29)
[2017-05-14] MEDS: OMEPRAZOLE 20 MG CAP PO (08:29)
[2017-05-14] MEDS: POTASSIUM CHLORIDE 10 MEQ SR TABLET PO ×2 (08:29→21:52)
[2017-05-14] MEDS: ISOSORBIDE MONONITRATE 10MG TABLET PO (08:30)
[2017-05-14] MEDS: MIRALAX *UNIT DOSE* 17GM PACKET PO (08:30)
[2017-05-14] MEDS: LIDOCAINE 5% (LIDODERM) PATCH TD (08:30)
[2017-05-14] MEDS: SIMETHICONE 80 MG CHEW TAB PO ×2 (09:47→22:49)
[2017-05-14] MEDS ORDERED: PERCOCET 5MG/325MG TAB PO (14:30)
[2017-05-14 17:35] LABS: BEDSIDE GLUCOSE 176 MG/DL (83-110)
[2017-05-14] MEDS: ISOSORBIDE MON. (ISMO,MONOKET) 20 MG TAB PO (18:04)
[2017-05-14] MEDS: ATORVASTATIN 20 MG TAB PO (21:50)
[2017-05-14] MEDS: VALSARTAN 80 MG TAB (DIOVAN) PO (21:50)
[2017-05-14] MEDS: LEVEMIR (INSULIN DETEMIR) 1 UNITS/0.01ML SC (21:53)
[2017-05-14] MEDS: HEPARIN SOD (PORCINE) 5000 UNITS/ML VIAL SQ (21:54)
[2017-05-14] MEDS: LATANOPROST 0.005% OPHTH SOLN 2.5 ML OU (21:54)
[2017-05-14] MEDS: LACTULOSE 20 GM/30 ML SYRUP UD PO (22:48)
[2017-05-15 01:48] LABS: BEDSIDE GLUCOSE 179 MG/DL (83-110)
[2017-05-15 06:27] LABS: BASO % 0.4 % (0.0-1.0); EOS # 0.2 10^3/uL (0.0-0.50); EOS % 3.7 % (0.0-3.0); HEMATOCRIT 35.9 % (42.0-52.0); HEMOGLOBIN 11.5 g/dl (14.0-18.0); IMMATURE GRANULOCYTE % 0.2 % (0-3.0); LYMPH # 1.1 10^3/uL (1.5-4.5); LYMPH % 22.2 % (24.0-44.0); MEAN CORPUSCULAR HEMOGLOBIN 28.5 pg (27.0-33.0); MEAN CORPUSCULAR VOLUME 88.9 fl (80.0-96.0); MONO # 0.5 10^3/uL (0.0-0.8); MONO % 9.2 % (0.0-5.0); NEUTROPHILS # 3.2 10^3/uL (1.8-7.7); NEUTROPHILS % 64.3 % (36.0-66.0); PLATELET COUNT, AUTOMATED 162 10^3/uL (150-450); RED BLOOD COUNT 4.04 10^6/uL (4.30-6.10); RED CELL DISTRIBUTION WIDTH 15.2 % (11.5-14.5); WHITE BLOOD COUNT 4.9 10^3/uL (4.0-10.0)
[2017-05-15] MEDS: LevoFLOXacin 250 MG TABLET PO (06:28)
[2017-05-15] MEDS: PERCOCET 5MG/325MG TAB PO ×2 (06:28→15:40)
[2017-05-15] MEDS: HEPARIN SOD (PORCINE) 5000 UNITS/ML VIAL SQ ×3 (06:28→21:35)
[2017-05-15] MEDS: LEVOTHYROXINE 75MCG TABLET (0.075MG) PO (06:28)
[2017-05-15 06:44] LABS: ANION GAP 5 MEQ/L (8-16); BLOOD UREA NITROGEN 40 MG/DL (7-18); CALCIUM LEVEL 8.8 MG/DL (8.8-10.2); CARBON DIOXIDE LEVEL 29 MEQ/L (21-32); CHLORIDE LEVEL 109 MEQ/L (98-107); CREATININE FOR GFR 1.78 MG/DL (0.70-1.30); GLOMERULAR FILTRATION RATE 40.1 (>42); GLUCOSE, FASTING 208 MG/DL (70-100); MAGNESIUM LEVEL 2.3 MG/DL (1.8-2.4); POTASSIUM SERUM 3.8 MEQ/L (3.5-5.1); SODIUM LEVEL 143 MEQ/L (136-145)
[2017-05-15] MEDS: SLF 3 ML SYR IV ×3 (06:45→21:41)
[2017-05-15] MEDS: HumaLOG INSULIN (NovoLOG) PER UNIT SC ×4 (07:30→21:00)
[2017-05-15] MEDS: ISOSORBIDE MONONITRATE 10MG TABLET PO (08:20)
[2017-05-15] MEDS: FUROSEMIDE 40 MG TAB PO ×2 (08:20→17:56)
[2017-05-15] MEDS: MIRALAX *UNIT DOSE* 17GM PACKET PO (08:21)
[2017-05-15] MEDS: CINACALCET 30 MG TAB (SENSIPAR) PO (08:21)
[2017-05-15] MEDS: ASPIRIN 81 MG ENTERIC TAB PO (08:21)
[2017-05-15] MEDS: DOCUSATE SODIUM 100 MG CAP PO ×2 (08:21→21:33)
[2017-05-15] MEDS: MULTIVITAMINS/MINERALS THERAP 1 TAB PO (08:21)
[2017-05-15] MEDS: ALLOPURINOL 300 MG TAB PO (08:21)
[2017-05-15] MEDS: POTASSIUM CHLORIDE 10 MEQ SR TABLET PO ×2 (08:21→21:33)
[2017-05-15] MEDS: OMEPRAZOLE 20 MG CAP PO (08:21)
[2017-05-15] MEDS: METOPROLOL TART 12.5 MG PER 1/2 TAB PO ×2 (08:21→21:36)
[2017-05-15] MEDS: LIDOCAINE 5% (LIDODERM) PATCH TD (11:39)
[2017-05-15] MEDS: SIMETHICONE 80 MG CHEW TAB PO (11:39)
[2017-05-15] MEDS: ISOSORBIDE MON. (ISMO,MONOKET) 20 MG TAB PO (17:56)
[2017-05-15] MEDS: LACTULOSE 20 GM/30 ML SYRUP UD PO (21:33)
[2017-05-15] MEDS: ATORVASTATIN 20 MG TAB PO (21:33)
[2017-05-15] MEDS: VALSARTAN 80 MG TAB (DIOVAN) PO (21:34)
[2017-05-15 21:35] LABS: BEDSIDE GLUCOSE 118 MG/DL (83-110)
[2017-05-15 21:35] LABS: BEDSIDE GLUCOSE 182 MG/DL (83-110)
[2017-05-15 21:35] LABS: BEDSIDE GLUCOSE 178 MG/DL (83-110)
[2017-05-15] MEDS: LEVEMIR (INSULIN DETEMIR) 1 UNITS/0.01ML SC (21:36)
[2017-05-15] MEDS: LATANOPROST 0.005% OPHTH SOLN 2.5 ML OU (21:39)
[2017-05-15] MEDS: ONDANSETRON 4 MG TAB (S0181) PO (23:01)
[2017-05-16] MEDS: PERCOCET 5MG/325MG TAB PO ×2 (01:04→19:44)
[2017-05-16] MEDS: SIMETHICONE 80 MG CHEW TAB PO (01:23)
[2017-05-16] MEDS: SLF 3 ML SYR IV ×3 (06:00→22:00)
[2017-05-16 06:27] LABS: BASO % 0.6 % (0.0-1.0); EOS # 0.2 10^3/uL (0.0-0.50); EOS % 3.1 % (0.0-3.0); HEMATOCRIT 35.8 % (42.0-52.0); HEMOGLOBIN 11.5 g/dl (14.0-18.0); IMMATURE GRANULOCYTE % 0.4 % (0-3.0); LYMPH # 1.3 10^3/uL (1.5-4.5); LYMPH % 24.8 % (24.0-44.0); MEAN CORPUSCULAR HEMOGLOBIN 28.5 pg (27.0-33.0); MEAN CORPUSCULAR HGB CONC 32.1 g/dl (32.0-36.5); MEAN CORPUSCULAR VOLUME 88.8 fl (80.0-96.0); MONO # 0.5 10^3/uL (0.0-0.8); MONO % 9.6 % (0.0-5.0); NEUTROPHILS # 3.1 10^3/uL (1.8-7.7); NEUTROPHILS % 61.5 % (36.0-66.0); PLATELET COUNT, AUTOMATED 140 10^3/uL (150-450); RED BLOOD COUNT 4.03 10^6/uL (4.30-6.10); RED CELL DISTRIBUTION WIDTH 15.1 % (11.5-14.5); WHITE BLOOD COUNT 5.1 10^3/uL (4.0-10.0)
[2017-05-16] MEDS: HEPARIN SOD (PORCINE) 5000 UNITS/ML VIAL SQ ×3 (06:36→22:10)
[2017-05-16] MEDS: LEVOTHYROXINE 75MCG TABLET (0.075MG) PO (06:36)
[2017-05-16 06:50] LABS: ANION GAP 5 MEQ/L (8-16); BLOOD UREA NITROGEN 41 MG/DL (7-18); CALCIUM LEVEL 8.8 MG/DL (8.8-10.2); CARBON DIOXIDE LEVEL 29 MEQ/L (21-32); CHLORIDE LEVEL 110 MEQ/L (98-107); CREATININE FOR GFR 1.73 MG/DL (0.70-1.30); GLOMERULAR FILTRATION RATE 41.4 (>42); GLUCOSE, FASTING 205 MG/DL (70-100); MAGNESIUM LEVEL 2.2 MG/DL (1.8-2.4); SODIUM LEVEL 144 MEQ/L (136-145)
[2017-05-16] MEDS: MIRALAX *UNIT DOSE* 17GM PACKET PO (08:33)
[2017-05-16] MEDS: METOPROLOL TART 12.5 MG PER 1/2 TAB PO ×2 (08:33→22:10)
[2017-05-16] MEDS: HumaLOG INSULIN (NovoLOG) PER UNIT SC ×4 (08:33→21:00)
[2017-05-16] MEDS: FUROSEMIDE 40 MG TAB PO ×2 (08:34→17:21)
[2017-05-16] MEDS: DOCUSATE SODIUM 100 MG CAP PO ×2 (08:34→22:08)
[2017-05-16] MEDS: ISOSORBIDE MONONITRATE 10MG TABLET PO (08:34)
[2017-05-16] MEDS: ALLOPURINOL 300 MG TAB PO (08:34)
[2017-05-16] MEDS: ASPIRIN 81 MG ENTERIC TAB PO (08:34)
[2017-05-16] MEDS: POTASSIUM CHLORIDE 10 MEQ SR TABLET PO ×2 (08:34→22:08)
[2017-05-16] MEDS: MULTIVITAMINS/MINERALS THERAP 1 TAB PO (08:34)
[2017-05-16] MEDS: OMEPRAZOLE 20 MG CAP PO (08:34)
[2017-05-16 13:50] LABS: BEDSIDE GLUCOSE 137 MG/DL (83-110)
[2017-05-16] MEDS: ISOSORBIDE MON. (ISMO,MONOKET) 20 MG TAB PO (17:20)
[2017-05-16 17:25] LABS: BEDSIDE GLUCOSE 161 MG/DL (83-110)
[2017-05-16] MEDS: VALSARTAN 80 MG TAB (DIOVAN) PO (22:07)
[2017-05-16] MEDS: ATORVASTATIN 20 MG TAB PO (22:09)
[2017-05-16] MEDS: LEVEMIR (INSULIN DETEMIR) 1 UNITS/0.01ML SC (22:11)
[2017-05-16] MEDS: LATANOPROST 0.005% OPHTH SOLN 2.5 ML OU (22:11)
[2017-05-16 22:29] LABS: BEDSIDE GLUCOSE 173 MG/DL (83-110)
[2017-05-17] MEDS: PERCOCET 5MG/325MG TAB PO ×4 (01:32→22:25)
[2017-05-17 02:31] LABS: BEDSIDE GLUCOSE 177 MG/DL (83-110)
[2017-05-17] MEDS: SLF 3 ML SYR IV ×3 (06:00→21:48)
[2017-05-17] MEDS: HEPARIN SOD (PORCINE) 5000 UNITS/ML VIAL SQ ×3 (06:03→21:30)
[2017-05-17] MEDS: LEVOTHYROXINE 75MCG TABLET (0.075MG) PO (06:03)
[2017-05-17 06:39] LABS: BASO % 0.5 % (0.0-1.0); EOS # 0.2 10^3/uL (0.0-0.50); EOS % 4.1 % (0.0-3.0); HEMATOCRIT 36.2 % (42.0-52.0); HEMOGLOBIN 11.6 g/dl (14.0-18.0); IMMATURE GRANULOCYTE % 0.2 % (0-3.0); LYMPH # 1.2 10^3/uL (1.5-4.5); LYMPH % 20.8 % (24.0-44.0); MEAN CORPUSCULAR HEMOGLOBIN 28.6 pg (27.0-33.0); MEAN CORPUSCULAR VOLUME 89.2 fl (80.0-96.0); MONO # 0.6 10^3/uL (0.0-0.8); MONO % 9.8 % (0.0-5.0); NEUTROPHILS # 3.6 10^3/uL (1.8-7.7); NEUTROPHILS % 64.6 % (36.0-66.0); PLATELET COUNT, AUTOMATED 141 10^3/uL (150-450); RED BLOOD COUNT 4.06 10^6/uL (4.30-6.10); RED CELL DISTRIBUTION WIDTH 15.4 % (11.5-14.5); WHITE BLOOD COUNT 5.6 10^3/uL (4.0-10.0)
[2017-05-17 07:00] LABS: ANION GAP 7 MEQ/L (8-16); BLOOD UREA NITROGEN 40 MG/DL (7-18); CALCIUM LEVEL 8.9 MG/DL (8.8-10.2); CARBON DIOXIDE LEVEL 29 MEQ/L (21-32); CHLORIDE LEVEL 108 MEQ/L (98-107); CREATININE FOR GFR 1.83 MG/DL (0.70-1.30); GLOMERULAR FILTRATION RATE 38.8 (>42); GLUCOSE, FASTING 134 MG/DL (70-100); POTASSIUM SERUM 3.9 MEQ/L (3.5-5.1); SODIUM LEVEL 144 MEQ/L (136-145)
[2017-05-17] MEDS: HumaLOG INSULIN (NovoLOG) PER UNIT SC ×4 (08:46→21:46)
[2017-05-17] MEDS: MIRALAX *UNIT DOSE* 17GM PACKET PO (10:41)
[2017-05-17] MEDS: POTASSIUM CHLORIDE 10 MEQ SR TABLET PO ×2 (10:41→21:47)
[2017-05-17] MEDS: MULTIVITAMINS/MINERALS THERAP 1 TAB PO (10:41)
[2017-05-17] MEDS: CINACALCET 30 MG TAB (SENSIPAR) PO (10:42)
[2017-05-17] MEDS: METOPROLOL TART 12.5 MG PER 1/2 TAB PO ×2 (10:42→21:47)
[2017-05-17] MEDS: ALLOPURINOL 300 MG TAB PO (10:42)
[2017-05-17] MEDS: FUROSEMIDE 40 MG TAB PO ×2 (10:43→18:15)
[2017-05-17] MEDS: ISOSORBIDE MONONITRATE 10MG TABLET PO (10:43)
[2017-05-17] MEDS: ASPIRIN 81 MG ENTERIC TAB PO (10:43)
[2017-05-17] MEDS: CYCLOBENZAPRINE 5MG TABLET PO (10:44)
[2017-05-17] MEDS: OMEPRAZOLE 20 MG CAP PO (10:44)
[2017-05-17] MEDS: DOCUSATE SODIUM 100 MG CAP PO ×2 (10:45→21:48)
[2017-05-17] MEDS: SIMETHICONE 80 MG CHEW TAB PO (14:19)
[2017-05-17] MEDS: ISOSORBIDE MON. (ISMO,MONOKET) 20 MG TAB PO (18:14)
[2017-05-17] MEDS: LATANOPROST 0.005% OPHTH SOLN 2.5 ML OU (21:46)
[2017-05-17] MEDS: LEVEMIR (INSULIN DETEMIR) 1 UNITS/0.01ML SC (21:46)
[2017-05-17] MEDS: VALSARTAN 80 MG TAB (DIOVAN) PO (21:47)
[2017-05-17] MEDS: ATORVASTATIN 20 MG TAB PO (21:48)
[2017-05-18] MEDS: SLF 3 ML SYR IV ×3 (05:59→20:24)
[2017-05-18] MEDS: LEVOTHYROXINE 75MCG TABLET (0.075MG) PO (05:59)
[2017-05-18] MEDS: PERCOCET 5MG/325MG TAB PO ×2 (09:00→23:47)
[2017-05-18] MEDS: DOCUSATE SODIUM 100 MG CAP PO ×2 (09:01→20:22)
[2017-05-18] MEDS: OMEPRAZOLE 20 MG CAP PO (09:01)
[2017-05-18] MEDS: METOPROLOL TART 12.5 MG PER 1/2 TAB PO ×2 (09:01→20:23)
[2017-05-18] MEDS: ISOSORBIDE MONONITRATE 10MG TABLET PO (09:02)
[2017-05-18] MEDS ORDERED: diazePAM 5 MG TAB As Ordered (10:56)
[2017-05-18] MEDS ORDERED: oxyCODONE 5MG TAB As Ordered (10:56)
[2017-05-18] MEDS ORDERED: BUPIVACAINE HCL 0.25% 30 ML VIAL As Ordered (10:57)
[2017-05-18] MEDS ORDERED: TRIAMCINOLONE ACETONIDE SUSP 40 MG/ML VIAL (J3301) As Ordered (10:57)
[2017-05-18] MEDS ORDERED: LIDOCAINE 1% SDV INJ 30 ML VIAL As Ordered (10:57)
[2017-05-18] MEDS ORDERED: ISOVUE-M 300 61% 15ML VIAL (Q9967) As Ordered (10:57)
[2017-05-18] MEDS: POTASSIUM CHLORIDE 10 MEQ SR TABLET PO ×2 (13:41→20:23)
[2017-05-18] MEDS: MIRALAX *UNIT DOSE* 17GM PACKET PO (13:41)
[2017-05-18] MEDS: FUROSEMIDE 40 MG TAB PO ×2 (13:41→18:25)
[2017-05-18] MEDS: CINACALCET 30 MG TAB (SENSIPAR) PO (13:42)
[2017-05-18] MEDS: ALLOPURINOL 300 MG TAB PO (13:42)
[2017-05-18] MEDS: HumaLOG INSULIN (NovoLOG) PER UNIT SC ×3 (13:42→21:00)
[2017-05-18] MEDS: MULTIVITAMINS/MINERALS THERAP 1 TAB PO (13:42)
[2017-05-18] MEDS: ISOSORBIDE MON. (ISMO,MONOKET) 20 MG TAB PO (18:39)
[2017-05-18] MEDS: VALSARTAN 80 MG TAB (DIOVAN) PO (20:22)
[2017-05-18] MEDS: LEVEMIR (INSULIN DETEMIR) 1 UNITS/0.01ML SC (20:23)
[2017-05-18] MEDS: LATANOPROST 0.005% OPHTH SOLN 2.5 ML OU (20:23)
[2017-05-18] MEDS: ATORVASTATIN 20 MG TAB PO (20:23)
[2017-05-18] MEDS: HEPARIN SOD (PORCINE) 5000 UNITS/ML VIAL SQ (22:00)
[2017-05-19] MEDS: HEPARIN SOD (PORCINE) 5000 UNITS/ML VIAL SQ ×2 (05:37→14:03)
[2017-05-19] MEDS: SLF 3 ML SYR IV ×3 (05:37→22:16)
[2017-05-19] MEDS: LEVOTHYROXINE 75MCG TABLET (0.075MG) PO (05:38)
[2017-05-19 07:02] LABS: ALBUMIN 2.4 GM/DL (3.2-5.2); ALBUMIN/GLOBULIN RATIO 0.71 (1.00-1.93); ALKALINE PHOSPHATASE 80 U/L (45-117); ALT/SGPT 75 U/L (12-78); ANION GAP 6 MEQ/L (8-16); AST/SGOT 51 U/L (7-37); BILIRUBIN,TOTAL 0.3 MG/DL (0.2-1.0); BLOOD UREA NITROGEN 41 MG/DL (7-18); CALCIUM LEVEL 8.8 MG/DL (8.8-10.2); CARBON DIOXIDE LEVEL 26 MEQ/L (21-32); CHLORIDE LEVEL 109 MEQ/L (98-107); CREATININE FOR GFR 1.74 MG/DL (0.70-1.30); GLOMERULAR FILTRATION RATE 41.1 (>42); GLUCOSE, FASTING 261 MG/DL (70-100); POTASSIUM SERUM 4.4 MEQ/L (3.5-5.1); SODIUM LEVEL 141 MEQ/L (136-145); TOTAL PROTEIN 5.8 GM/DL (6.4-8.2)
[2017-05-19] MEDS: LIDOCAINE 5% (LIDODERM) PATCH TD (08:11)
[2017-05-19] MEDS: METOPROLOL TART 12.5 MG PER 1/2 TAB PO ×2 (08:12→22:15)
[2017-05-19] MEDS: ALLOPURINOL 300 MG TAB PO (08:12)
[2017-05-19] MEDS: ASPIRIN 81 MG ENTERIC TAB PO (08:12)
[2017-05-19] MEDS: FUROSEMIDE 40 MG TAB PO ×2 (08:12→17:23)
[2017-05-19] MEDS: ISOSORBIDE MONONITRATE 10MG TABLET PO (08:12)
[2017-05-19] MEDS: MULTIVITAMINS/MINERALS THERAP 1 TAB PO (08:13)
[2017-05-19] MEDS: PERCOCET 5MG/325MG TAB PO ×2 (08:13→22:16)
[2017-05-19] MEDS: DOCUSATE SODIUM 100 MG CAP PO ×2 (08:13→22:13)
[2017-05-19] MEDS: HumaLOG INSULIN (NovoLOG) PER UNIT SC ×4 (08:14→21:00)
[2017-05-19] MEDS: POTASSIUM CHLORIDE 10 MEQ SR TABLET PO ×2 (08:14→22:13)
[2017-05-19] MEDS: OMEPRAZOLE 20 MG CAP PO (08:14)
[2017-05-19] MEDS: MIRALAX *UNIT DOSE* 17GM PACKET PO (08:14)
[2017-05-19] MEDS ORDERED: NITROGLYCERIN 0.4 MG SUBL TABLET As Ordered (08:34)
[2017-05-19] MEDS: NITROGLYCERIN 0.4 MG SUBL TABLET SL (08:41)
[2017-05-19 09:06] LABS: CPK CREATINE PHOSPHOKINASE 65 U/L (39-308); MB/CK RELATIVE INDEX 1.53 (< OR =4); TROPONIN I < 0.02 NG/ML (< 0.10)
[2017-05-19] MEDS: LORazepam 0.5 MG TAB PO (09:58)
[2017-05-19] MEDS: EUCERIN 120GM CREAM TOP ×2 (14:03→22:16)
[2017-05-19 14:45] LABS: CPK CREATINE PHOSPHOKINASE 67 U/L (39-308); MB/CK RELATIVE INDEX 1.49 (< OR =4); TROPONIN I 0.02 NG/ML (< 0.10)
[2017-05-19] MEDS: ISOSORBIDE MON. (ISMO,MONOKET) 20 MG TAB PO (17:23)
[2017-05-19] MEDS: RIVAROXABAN 10 MG TAB (XARELTO) PO (17:26)
[2017-05-19 20:46] LABS: CK-MB VALUE MASS 1.3 NG/ML (0.0-3.6); CPK CREATINE PHOSPHOKINASE 87 U/L (39-308); MB/CK RELATIVE INDEX 1.49 (< OR =4); TROPONIN I 0.02 NG/ML (< 0.10)
[2017-05-19] MEDS: LATANOPROST 0.005% OPHTH SOLN 2.5 ML OU (22:14)
[2017-05-19] MEDS: VALSARTAN 80 MG TAB (DIOVAN) PO (22:14)
[2017-05-19] MEDS: ATORVASTATIN 20 MG TAB PO (22:14)
[2017-05-19] MEDS: LEVEMIR (INSULIN DETEMIR) 1 UNITS/0.01ML SC (22:15)
[2017-05-20] MEDS: PERCOCET 5MG/325MG TAB PO (03:41)
[2017-05-20] MEDS: LEVOTHYROXINE 75MCG TABLET (0.075MG) PO (06:02)
[2017-05-20] MEDS: ALPRAZolam 0.5 MG TAB PO (06:02)
[2017-05-20] MEDS: SLF 3 ML SYR IV (06:03)
[2017-05-20] MEDS: HumaLOG INSULIN (NovoLOG) PER UNIT SC ×2 (08:36→12:40)
[2017-05-20] MEDS: POTASSIUM CHLORIDE 10 MEQ SR TABLET PO (08:37)
[2017-05-20] MEDS: DOCUSATE SODIUM 100 MG CAP PO (08:37)
[2017-05-20] MEDS: MULTIVITAMINS/MINERALS THERAP 1 TAB PO (08:37)
[2017-05-20] MEDS: MIRALAX *UNIT DOSE* 17GM PACKET PO (08:37)
[2017-05-20] MEDS: OMEPRAZOLE 20 MG CAP PO (08:37)
[2017-05-20] MEDS: ASPIRIN 81 MG ENTERIC TAB PO (08:38)
[2017-05-20] MEDS: FUROSEMIDE 40 MG TAB PO (08:38)
[2017-05-20] MEDS: ALLOPURINOL 300 MG TAB PO (08:38)
[2017-05-20] MEDS: amLODIPine 5 MG TAB PO (08:38)
[2017-05-20] MEDS: METOPROLOL TART 12.5 MG PER 1/2 TAB PO (08:39)
[2017-05-20] MEDS: ISOSORBIDE MONONITRATE 10MG TABLET PO (08:42)
[2017-05-20] MEDS: EUCERIN 120GM CREAM TOP (08:43)
[2017-05-20] MEDS: LORazepam 0.5 MG TAB PO (10:59)
[2017-05-21 12:13] LABS: BEDSIDE GLUCOSE 146 MG/DL (83-110)
[2017-05-21 12:13] LABS: BEDSIDE GLUCOSE 160 MG/DL (83-110)
[2017-05-21 12:13] LABS: BEDSIDE GLUCOSE 197 MG/DL (83-110)
[2017-05-21 12:13] LABS: BEDSIDE GLUCOSE 139 MG/DL (83-110)
[2017-05-21 12:13] LABS: BEDSIDE GLUCOSE 122 MG/DL (83-110)
[2017-05-21 12:13] LABS: BEDSIDE GLUCOSE 151 MG/DL (83-110)
[2017-05-21 12:13] LABS: BEDSIDE GLUCOSE 162 MG/DL (83-110)
[2017-05-21 12:13] LABS: BEDSIDE GLUCOSE 229 MG/DL (83-110)
[2017-05-21 12:13] LABS: BEDSIDE GLUCOSE 247 MG/DL (83-110)
[2017-05-21 12:13] LABS: BEDSIDE GLUCOSE 198 MG/DL (83-110)
[2017-05-21 12:13] LABS: BEDSIDE GLUCOSE 248 MG/DL (83-110)
[2017-05-21 12:13] LABS: BEDSIDE GLUCOSE 228 MG/DL (83-110)
[2017-05-21 12:14] LABS: BEDSIDE GLUCOSE 241 MG/DL (83-110)
[2017-05-21 12:16] LABS: BEDSIDE GLUCOSE 182 MG/DL (83-110)
== END 2017-05-20 12:50 | disposition home health service (06) | DRG 728 ==
LOC: M ED 18:49 → M ED INP 05-03 03:33 → M MS5PR 05-05 17:05 → M PCU 05-03 18:19
PROC: 3E0T3BZ Introduction of Anesthetic Agent into Peripheral Nerves and Plexi, Percutaneous Approach (ICD-10-PCS; principal; 2017-05-18)
DX: N45.1 Epididymitis (principal); I50.32 Chronic diastolic (congestive) heart failure; I13.0 Hypertensive heart and chronic kidney disease with heart failure and stage 1 through stage 4 chronic kidney disease, or unspecified chronic kidney disease; I16.0 Hypertensive urgency; I25.10 Atherosclerotic heart disease of native coronary artery without angina pectoris; I48.91 Unspecified atrial fibrillation; E78.5 Hyperlipidemia, unspecified; E11.22 Type 2 diabetes mellitus with diabetic chronic kidney disease; N18.3 Chronic kidney disease, stage 3 (moderate); E03.9 Hypothyroidism, unspecified; M10.9 Gout, unspecified; R10.31 Right lower quadrant pain; R10.2 Pelvic and perineal pain; M16.0 Bilateral primary osteoarthritis of hip; K21.9 Gastro-esophageal reflux disease without esophagitis; R07.89 Other chest pain; M48.02 Spinal stenosis, cervical region; K59.00 Constipation, unspecified; Z79.82 Long term (current) use of aspirin; Z79.4 Long term (current) use of insulin; Z79.01 Long term (current) use of anticoagulants; Z95.1 Presence of aortocoronary bypass graft; Z88.0 Allergy status to penicillin; Z88.2 Allergy status to sulfonamides; Z91.041 Radiographic dye allergy status; Z88.1 Allergy status to other antibiotic agents; Z85.528 Personal history of other malignant neoplasm of kidney; Z90.5 Acquired absence of kidney; Z90.49 Acquired absence of other specified parts of digestive tract

== ENCOUNTER → 2017-06-01 | Outpatient (CLI) | payer OTHER | LOC: M PAIN 13:00 | DX: G57.81 Other specified mononeuropathies of right lower limb (principal); E78.5 Hyperlipidemia, unspecified; E11.9 Type 2 diabetes mellitus without complications; E03.9 Hypothyroidism, unspecified; E06.2 Chronic thyroiditis with transient thyrotoxicosis; I12.9 Hypertensive chronic kidney disease with stage 1 through stage 4 chronic kidney disease, or unspecified chronic kidney disease; I25.2 Old myocardial infarction; N18.9 Chronic kidney disease, unspecified; Z79.4 Long term (current) use of insulin; Z79.82 Long term (current) use of aspirin; Z79.899 Other long term (current) drug therapy; Z88.8 Allergy status to other drugs, medicaments and biological substances; Z91.041 Radiographic dye allergy status; Z85.528 Personal history of other malignant neoplasm of kidney; Z90.5 Acquired absence of kidney | CPT/HCPCS: G0463 ==

== ENCOUNTER 2017-06-14 21:05 | Inpatient (IN) | payer OTHER ==
[2017-06-14] MEDS: NS 1,000 ML IV ×2 (22:30→23:53)
[2017-06-14 22:39] LABS: BASO % 0.5 % (0.0-1.0); EOS # 0.1 10^3/uL (0.0-0.50); HEMATOCRIT 33.5 % (42.0-52.0); HEMOGLOBIN 10.6 g/dl (13.5-17.5); IMMATURE GRANULOCYTE % 0.5 % (0-3.0); LYMPH # 1.2 10^3/uL (1.5-4.5); LYMPH % 21.8 % (24.0-44.0); MEAN CORPUSCULAR HEMOGLOBIN 28.1 pg (27.0-33.0); MEAN CORPUSCULAR HGB CONC 31.6 g/dl (32.0-36.5); MEAN CORPUSCULAR VOLUME 88.9 fl (80.0-96.0); MONO # 0.5 10^3/uL (0.0-0.8); MONO % 9.3 % (0.0-5.0); NEUTROPHILS # 3.7 10^3/uL (1.8-7.7); NEUTROPHILS % 65.9 % (36.0-66.0); PLATELET COUNT, AUTOMATED 156 10^3/uL (150-450); RED BLOOD COUNT 3.77 10^6/uL (4.30-6.10); RED CELL DISTRIBUTION WIDTH 15.9 % (11.5-14.5); WHITE BLOOD COUNT 5.6 10^3/uL (4.0-10.0)
[2017-06-14 22:54] LABS: INR 1.77; PROTHROMBIN TIME 21.2 SECONDS (12.4-14.5)
[2017-06-14 22:55] LABS: PARTIAL THROMBOPLASTIN TIME 37.3 SECONDS (26.8-37.9)
[2017-06-14 23:04] LABS: ALBUMIN 2.7 GM/DL (3.2-5.2); ALBUMIN/GLOBULIN RATIO 0.96 (1.00-1.93); ALKALINE PHOSPHATASE 77 U/L (45-117); ALT/SGPT 31 U/L (12-78); ANION GAP 5 MEQ/L (8-16); AST/SGOT 22 U/L (7-37); BILIRUBIN,DIRECT < 0.1 MG/DL (0.0-0.2); BILIRUBIN,TOTAL 0.2 MG/DL (0.2-1.0); BLOOD UREA NITROGEN 45 MG/DL (7-18); CALCIUM LEVEL 8.3 MG/DL (8.8-10.2); CARBON DIOXIDE LEVEL 28 MEQ/L (21-32); CHLORIDE LEVEL 111 MEQ/L (98-107); CK-MB VALUE MASS 1.5 NG/ML (<3.6); CPK CREATINE PHOSPHOKINASE 104 U/L (39-308); CREATININE FOR GFR 1.97 MG/DL (0.70-1.30); GLOMERULAR FILTRATION RATE 35.6 (>42); GLUCOSE, FASTING 138 MG/DL (70-100); LIPASE 323 U/L (73-393); MB/CK RELATIVE INDEX 1.44 (< OR =4); POTASSIUM SERUM 4.2 MEQ/L (3.5-5.1); SODIUM LEVEL 144 MEQ/L (136-145); TOTAL PROTEIN 5.5 GM/DL (6.4-8.2); TROPONIN I < 0.02 NG/ML (< 0.10)
[2017-06-15] MEDS ORDERED: GLUCAGON FOR INJ 1 MG VIAL (J1610) SC (00:15)
[2017-06-15] MEDS ORDERED: GLUCOSE 4 GM CHEW TABLET PO (00:15)
[2017-06-15 00:59] LABS: BEDSIDE GLUCOSE 107 MG/DL (83-110)
[2017-06-15] MEDS: HumaLOG INSULIN (NovoLOG) PER UNIT SC ×4 (01:06→17:44)
[2017-06-15] MEDS: LEVEMIR (INSULIN DETEMIR) 1 UNITS/0.01ML SC ×2 (01:08→21:00)
[2017-06-15] MEDS: VALSARTAN 80 MG TAB (DIOVAN) PO ×2 (01:09→22:18)
[2017-06-15] MEDS: NITROGLYCERIN 0.4 MG SUBL TABLET SL (01:11)
[2017-06-15] MEDS: PANTOPRAZOLE SODIUM 40 MG in D5W 50 ML IV ×4 (05:00→14:32)
[2017-06-15 05:49] LABS: HEMATOCRIT 36.4 % (42.0-52.0); HEMOGLOBIN 11.5 g/dl (13.5-17.5); MEAN CORPUSCULAR HGB CONC 31.6 g/dl (32.0-36.5); MEAN CORPUSCULAR VOLUME 88.8 fl (80.0-96.0); PLATELET COUNT, AUTOMATED 144 10^3/uL (150-450); RED CELL DISTRIBUTION WIDTH 15.9 % (11.5-14.5); WHITE BLOOD COUNT 5.6 10^3/uL (4.0-10.0)
[2017-06-15] MEDS: LEVOTHYROXINE 75MCG TABLET (0.075MG) PO (06:00)
[2017-06-15] MEDS: hydrALAZINE INJ 20 MG/ML VIAL IV ×3 (06:00→18:17)
[2017-06-15] MEDS: ISOSORBIDE DIN. (ISORDIL) 30 MG TAB PO ×3 (06:00→22:17)
[2017-06-15 06:27] LABS: ANION GAP 4 MEQ/L (8-16); BLOOD UREA NITROGEN 44 MG/DL (7-18); CALCIUM LEVEL 8.8 MG/DL (8.8-10.2); CARBON DIOXIDE LEVEL 27 MEQ/L (21-32); CHLORIDE LEVEL 113 MEQ/L (98-107); CK-MB VALUE MASS 1.9 NG/ML (<3.6); CPK CREATINE PHOSPHOKINASE 96 U/L (39-308); CREATININE FOR GFR 1.79 MG/DL (0.70-1.30); GLOMERULAR FILTRATION RATE 39.7 (>42); GLUCOSE, FASTING 102 MG/DL (70-100); MB/CK RELATIVE INDEX 1.97 (< OR =4); POTASSIUM SERUM 3.7 MEQ/L (3.5-5.1); SODIUM LEVEL 144 MEQ/L (136-145); TROPONIN I 0.02 NG/ML (< 0.10)
[2017-06-15 08:33] LABS: BEDSIDE GLUCOSE 92 MG/DL (83-110)
[2017-06-15 08:46] LABS: BEDSIDE GLUCOSE 62 MG/DL (83-110)
[2017-06-15] MEDS ORDERED: ISOSORBIDE MON. (ISMO,MONOKET) 20 MG TAB PO (09:00)
[2017-06-15] MEDS ORDERED: amLODIPine 5 MG TAB PO (09:00)
[2017-06-15] MEDS: DEXTROSE 50% 50 ML SYRINGE IV ×2 (09:16→14:49)
[2017-06-15] MEDS: MUPIROCIN 2% OINT 22 GM TUBE EXT ×2 (09:16→22:18)
[2017-06-15] MEDS: MULTIVITAMINS/MINERALS THERAP 1 TAB PO (09:16)
[2017-06-15 10:12] LABS: BEDSIDE GLUCOSE 105 MG/DL (83-110)
[2017-06-15 12:46] LABS: HEMOGLOBIN 11.1 g/dl (13.5-17.5); MEAN CORPUSCULAR HEMOGLOBIN 27.9 pg (27.0-33.0); MEAN CORPUSCULAR HGB CONC 31.7 g/dl (32.0-36.5); MEAN CORPUSCULAR VOLUME 87.9 fl (80.0-96.0); PLATELET COUNT, AUTOMATED 158 10^3/uL (150-450); RED BLOOD COUNT 3.98 10^6/uL (4.30-6.10); WHITE BLOOD COUNT 6.2 10^3/uL (4.0-10.0)
[2017-06-15] MEDS: ALLOPURINOL 300 MG TAB PO (13:01)
[2017-06-15] MEDS: NS 1,000 ML IV (13:19)
[2017-06-15 13:55] LABS: CK-MB VALUE MASS 1.6 NG/ML (<3.6); CPK CREATINE PHOSPHOKINASE 96 U/L (39-308); MB/CK RELATIVE INDEX 1.66 (< OR =4); TROPONIN I 0.02 NG/ML (< 0.10)
[2017-06-15 17:58] LABS: BEDSIDE GLUCOSE 84 MG/DL (83-110)
[2017-06-15 18:20] LABS: HEMATOCRIT 33.8 % (42.0-52.0); HEMOGLOBIN 10.8 g/dl (13.5-17.5); MEAN CORPUSCULAR HEMOGLOBIN 27.8 pg (27.0-33.0); MEAN CORPUSCULAR VOLUME 87.1 fl (80.0-96.0); PLATELET COUNT, AUTOMATED 164 10^3/uL (150-450); RED BLOOD COUNT 3.88 10^6/uL (4.30-6.10); RED CELL DISTRIBUTION WIDTH 16.2 % (11.5-14.5)
[2017-06-15] MEDS: MOM 30ML SUSPENSION UDC PO (18:50)
[2017-06-15 18:54] LABS: TROPONIN I 0.02 NG/ML (< 0.10)
[2017-06-15] MEDS: **NOTE PATIENT COMMENT** MISC XX (21:00)
[2017-06-15 21:58] LABS: BEDSIDE GLUCOSE 92 MG/DL (83-110)
[2017-06-15] MEDS: PANTOPRAZOLE 40MG INJ (PROTONIX) (C9113) IV (22:17)
[2017-06-15] MEDS: LATANOPROST 0.005% OPHTH SOLN 2.5 ML OU (22:18)
[2017-06-16 00:34] LABS: BEDSIDE GLUCOSE 162 MG/DL (83-110)
[2017-06-16 00:48] LABS: HEMATOCRIT 32.3 % (42.0-52.0); HEMOGLOBIN 10.4 g/dl (13.5-17.5); MEAN CORPUSCULAR HGB CONC 32.2 g/dl (32.0-36.5); MEAN CORPUSCULAR VOLUME 87.1 fl (80.0-96.0); PLATELET COUNT, AUTOMATED 150 10^3/uL (150-450); RED BLOOD COUNT 3.71 10^6/uL (4.30-6.10); RED CELL DISTRIBUTION WIDTH 16.2 % (11.5-14.5); WHITE BLOOD COUNT 4.8 10^3/uL (4.0-10.0)
[2017-06-16 01:12] LABS: TROPONIN I 0.02 NG/ML (< 0.10)
[2017-06-16] MEDS: ONDANSETRON 4MG/2ML VIAL (J2405) IV (04:01)
[2017-06-16 05:59] LABS: HEMATOCRIT 31.4 % (42.0-52.0); HEMOGLOBIN 10.1 g/dl (13.5-17.5); MEAN CORPUSCULAR HEMOGLOBIN 28.1 pg (27.0-33.0); MEAN CORPUSCULAR HGB CONC 32.2 g/dl (32.0-36.5); MEAN CORPUSCULAR VOLUME 87.2 fl (80.0-96.0); PLATELET COUNT, AUTOMATED 149 10^3/uL (150-450); RED CELL DISTRIBUTION WIDTH 16.1 % (11.5-14.5); WHITE BLOOD COUNT 4.4 10^3/uL (4.0-10.0)
[2017-06-16] MEDS: hydrALAZINE INJ 20 MG/ML VIAL IV ×4 (06:00→17:44)
[2017-06-16 06:20] LABS: ANION GAP 8 MEQ/L (8-16); BLOOD UREA NITROGEN 34 MG/DL (7-18); CALCIUM LEVEL 9.1 MG/DL (8.8-10.2); CARBON DIOXIDE LEVEL 24 MEQ/L (21-32); CHLORIDE LEVEL 114 MEQ/L (98-107); GLOMERULAR FILTRATION RATE 45.2 (>42); GLUCOSE, FASTING 100 MG/DL (70-100); MAGNESIUM LEVEL 2.6 MG/DL (1.8-2.4); POTASSIUM SERUM 4.1 MEQ/L (3.5-5.1); SODIUM LEVEL 146 MEQ/L (136-145)
[2017-06-16] MEDS: ISOSORBIDE DIN. (ISORDIL) 30 MG TAB PO ×3 (06:35→21:14)
[2017-06-16] MEDS: LEVOTHYROXINE 75MCG TABLET (0.075MG) PO (06:35)
[2017-06-16] MEDS: PERCOCET 5MG/325MG TAB PO (06:36)
[2017-06-16] MEDS: MOM 30ML SUSPENSION UDC PO (07:00)
[2017-06-16 07:04] LABS: BEDSIDE GLUCOSE 62 MG/DL (83-110)
[2017-06-16 07:04] LABS: BEDSIDE GLUCOSE 76 MG/DL (83-110)
[2017-06-16] MEDS: HumaLOG INSULIN (NovoLOG) PER UNIT SC ×4 (07:30→21:00)
[2017-06-16] MEDS: MULTIVITAMINS/MINERALS THERAP 1 TAB PO (08:45)
[2017-06-16] MEDS: PANTOPRAZOLE 40MG INJ (PROTONIX) (C9113) IV ×2 (08:45→21:00)
[2017-06-16] MEDS: ALLOPURINOL 300 MG TAB PO (08:45)
[2017-06-16] MEDS: MUPIROCIN 2% OINT 22 GM TUBE EXT ×2 (08:46→21:00)
[2017-06-16 11:56] LABS: BEDSIDE GLUCOSE 158 MG/DL (83-110)
[2017-06-16 12:25] LABS: HEMATOCRIT 30.5 % (42.0-52.0); HEMOGLOBIN 9.7 g/dl (13.5-17.5); MEAN CORPUSCULAR HEMOGLOBIN 28.3 pg (27.0-33.0); MEAN CORPUSCULAR HGB CONC 31.8 g/dl (32.0-36.5); MEAN CORPUSCULAR VOLUME 88.9 fl (80.0-96.0); PLATELET COUNT, AUTOMATED 129 10^3/uL (150-450); RED BLOOD COUNT 3.43 10^6/uL (4.30-6.10); RED CELL DISTRIBUTION WIDTH 16.1 % (11.5-14.5); WHITE BLOOD COUNT 5.2 10^3/uL (4.0-10.0)
[2017-06-16] MEDS: FUROSEMIDE 80 MG TAB PO ×2 (14:03→21:00)
[2017-06-16] MEDS: POTASSIUM CHLORIDE 10 MEQ SR TABLET PO ×2 (14:09→21:00)
[2017-06-16] MEDS: GOLYTELY SOLN 4000 ML BTL PO (17:36)
[2017-06-16 18:28] LABS: HEMOGLOBIN 11.4 g/dl (13.5-17.5); MEAN CORPUSCULAR HEMOGLOBIN 27.9 pg (27.0-33.0); MEAN CORPUSCULAR HGB CONC 31.7 g/dl (32.0-36.5); MEAN CORPUSCULAR VOLUME 88.2 fl (80.0-96.0); PLATELET COUNT, AUTOMATED 188 10^3/uL (150-450); RED BLOOD COUNT 4.08 10^6/uL (4.30-6.10); RED CELL DISTRIBUTION WIDTH 16.2 % (11.5-14.5); WHITE BLOOD COUNT 6.7 10^3/uL (4.0-10.0)
[2017-06-16] MEDS: LEVEMIR (INSULIN DETEMIR) 1 UNITS/0.01ML SC (21:00)
[2017-06-16] MEDS: VALSARTAN 80 MG TAB (DIOVAN) PO (21:00)
[2017-06-16] MEDS: **NOTE PATIENT COMMENT** MISC XX (21:00)
[2017-06-16] MEDS: ATORVASTATIN 20 MG TAB PO (21:00)
[2017-06-16] MEDS: LATANOPROST 0.005% OPHTH SOLN 2.5 ML OU (21:00)
[2017-06-16 23:28] LABS: BEDSIDE GLUCOSE 97 MG/DL (83-110)
[2017-06-16 23:28] LABS: BEDSIDE GLUCOSE 118 MG/DL (83-110)
[2017-06-17] MEDS: ACETAMINOPHEN TAB 650MG DOSE (2X325MG) PO (00:01)
[2017-06-17] MEDS: hydrALAZINE INJ 20 MG/ML VIAL IV ×4 (00:02→17:07)
[2017-06-17] MEDS: PERCOCET 5MG/325MG TAB PO (00:03)
[2017-06-17] MEDS: ONDANSETRON 4MG/2ML VIAL (J2405) IV ×2 (00:04→13:05)
[2017-06-17 00:21] LABS: BEDSIDE GLUCOSE 107 MG/DL (83-110)
[2017-06-17] MEDS: GOLYTELY SOLN 4000 ML BTL PO (05:00)
[2017-06-17] MEDS: LEVOTHYROXINE 75MCG TABLET (0.075MG) PO (06:00)
[2017-06-17] MEDS: ISOSORBIDE DIN. (ISORDIL) 30 MG TAB PO ×3 (06:00→21:24)
[2017-06-17] MEDS: DEXTROSE 50% 50 ML SYRINGE IV (06:45)
[2017-06-17 06:53] LABS: ANION GAP 8 MEQ/L (8-16); BLOOD UREA NITROGEN 32 MG/DL (7-18); CALCIUM LEVEL 9.6 MG/DL (8.8-10.2); CARBON DIOXIDE LEVEL 25 MEQ/L (21-32); CHLORIDE LEVEL 109 MEQ/L (98-107); CREATININE FOR GFR 2.03 MG/DL (0.70-1.30); GLOMERULAR FILTRATION RATE 34.3 (>42); GLUCOSE, FASTING 62 MG/DL (70-100); SODIUM LEVEL 142 MEQ/L (136-145)
[2017-06-17 07:05] LABS: BEDSIDE GLUCOSE 55 MG/DL (83-110)
[2017-06-17 07:21] LABS: BEDSIDE GLUCOSE 120 MG/DL (83-110)
[2017-06-17] MEDS: HumaLOG INSULIN (NovoLOG) PER UNIT SC ×4 (07:30→21:00)
[2017-06-17] MEDS: MULTIVITAMINS/MINERALS THERAP 1 TAB PO (09:00)
[2017-06-17] MEDS: MUPIROCIN 2% OINT 22 GM TUBE EXT ×2 (09:00→21:00)
[2017-06-17] MEDS: PANTOPRAZOLE 40MG INJ (PROTONIX) (C9113) IV ×2 (09:28→21:00)
[2017-06-17] MEDS: FUROSEMIDE 80 MG TAB PO ×2 (09:29→21:24)
[2017-06-17] MEDS: POTASSIUM CHLORIDE 10 MEQ SR TABLET PO ×2 (09:30→21:24)
[2017-06-17] MEDS: ALLOPURINOL 300 MG TAB PO (09:30)
[2017-06-17 11:27] LABS: BEDSIDE GLUCOSE 73 MG/DL (83-110)
[2017-06-17 13:02] LABS: BEDSIDE GLUCOSE 81 MG/DL (83-110)
[2017-06-17 14:07] LABS: BEDSIDE GLUCOSE 93 MG/DL (83-110)
[2017-06-17] MEDS ORDERED: PROPOFOL 200 MG/20 ML VIAL As Ordered ×2 (14:52→15:52)
[2017-06-17] MEDS ORDERED: LIDOCAINE 2% MDV 20 ML VIAL As Ordered (14:52)
[2017-06-17 17:11] LABS: BEDSIDE GLUCOSE 83 MG/DL (83-110)
[2017-06-17] MEDS: **NOTE PATIENT COMMENT** MISC XX (21:00)
[2017-06-17] MEDS: LEVEMIR (INSULIN DETEMIR) 1 UNITS/0.01ML SC (21:00)
[2017-06-17] MEDS: LATANOPROST 0.005% OPHTH SOLN 2.5 ML OU (21:00)
[2017-06-17] MEDS: ATORVASTATIN 20 MG TAB PO (21:23)
[2017-06-17 21:30] LABS: BEDSIDE GLUCOSE 157 MG/DL (83-110)
[2017-06-18] MEDS: hydrALAZINE INJ 20 MG/ML VIAL IV ×4 (06:00→18:42)
[2017-06-18] MEDS: LEVOTHYROXINE 75MCG TABLET (0.075MG) PO (06:00)
[2017-06-18] MEDS: ISOSORBIDE DIN. (ISORDIL) 30 MG TAB PO ×3 (06:00→21:31)
[2017-06-18 06:03] LABS: ANION GAP 6 MEQ/L (8-16); BLOOD UREA NITROGEN 34 MG/DL (7-18); CARBON DIOXIDE LEVEL 26 MEQ/L (21-32); CHLORIDE LEVEL 111 MEQ/L (98-107); CREATININE FOR GFR 2.27 MG/DL (0.70-1.30); GLOMERULAR FILTRATION RATE 30.2 (>42); GLUCOSE, FASTING 100 MG/DL (70-100); POTASSIUM SERUM 4.2 MEQ/L (3.5-5.1); SODIUM LEVEL 143 MEQ/L (136-145)
[2017-06-18] MEDS: PERCOCET 5MG/325MG TAB PO ×2 (06:08→18:41)
[2017-06-18 07:14] LABS: BEDSIDE GLUCOSE 111 MG/DL (83-110)
[2017-06-18] MEDS: HumaLOG INSULIN (NovoLOG) PER UNIT SC ×4 (08:14→21:00)
[2017-06-18] MEDS: PANTOPRAZOLE 40MG INJ (PROTONIX) (C9113) IV ×2 (08:16→21:33)
[2017-06-18] MEDS: MULTIVITAMINS/MINERALS THERAP 1 TAB PO (08:16)
[2017-06-18] MEDS: CINACALCET 30 MG TAB (SENSIPAR) PO (10:19)
[2017-06-18] MEDS: ALLOPURINOL 300 MG TAB PO (10:19)
[2017-06-18] MEDS: MUPIROCIN 2% OINT 22 GM TUBE EXT ×2 (10:19→21:36)
[2017-06-18 12:20] LABS: BEDSIDE GLUCOSE 114 MG/DL (83-110)
[2017-06-18 14:17] LABS: APPEARANCE, URINE CLEAR (CLEAR); BACTERIA, URINE AUTO NEGATIVE (NEGATIVE); BILIRUBIN, URINE AUTO NEGATIVE (NEGATIVE); BLOOD, URINE BLOOD 1+ (NEGATIVE); COLOR, URINE YELLOW (YELLOW); GLUCOSE, URINE (UA) AUTO 1+ mg/dL (NEGATIVE); KETONE, URINE AUTO NEGATIVE (NEGATIVE); LEUKOCYTE ESTERASE, URINE AUTO NEGATIVE (NEGATIVE); MUCUS, URINE SMALL (NEGATIVE); NITRITE, URINE AUTO NEGATIVE (NEGATIVE); PROTEIN, URINE AUTO 3+ mg/dL (NEGATIVE); RBC, URINE AUTO 1 /HPF (0-3); SQUAMOUS EPITHELIAL CELL UR AU 0 /HPF (0-6); UROBILINOGEN, URINE AUTO 0.2 mg/dL (0.0-2.0); WBC, URINE AUTO 1 /HPF (0-3)
[2017-06-18] MEDS ORDERED: SLF 3 ML SYR IV (15:15)
[2017-06-18 17:59] LABS: BEDSIDE GLUCOSE 151 MG/DL (83-110)
[2017-06-18] MEDS: RIVAROXABAN 10 MG TAB (XARELTO) PO (18:39)
[2017-06-18] MEDS: LIDOCAINE 5% (LIDODERM) PATCH TD (18:46)
[2017-06-18] MEDS: **NOTE PATIENT COMMENT** MISC XX (21:00)
[2017-06-18 21:01] LABS: BEDSIDE GLUCOSE 164 MG/DL (83-110)
[2017-06-18] MEDS: ATORVASTATIN 20 MG TAB PO (21:31)
[2017-06-18] MEDS: LATANOPROST 0.005% OPHTH SOLN 2.5 ML OU (21:33)
[2017-06-18] MEDS: LEVEMIR (INSULIN DETEMIR) 1 UNITS/0.01ML SC (21:33)
[2017-06-18] MEDS: SLF 3 ML SYR IV (21:35)
[2017-06-19] MEDS: hydrALAZINE INJ 20 MG/ML VIAL IV ×2 (00:26→06:00)
[2017-06-19] MEDS: FUROSEMIDE 100 MG/10 ML VIAL (J1940) IV (04:25)
[2017-06-19 05:52] LABS: ANION GAP 6 MEQ/L (8-16); BLOOD UREA NITROGEN 38 MG/DL (7-18); CARBON DIOXIDE LEVEL 26 MEQ/L (21-32); CHLORIDE LEVEL 110 MEQ/L (98-107); CREATININE FOR GFR 2.13 MG/DL (0.70-1.30); GLOMERULAR FILTRATION RATE 32.5 (>42); GLUCOSE, FASTING 172 MG/DL (70-100); POTASSIUM SERUM 3.9 MEQ/L (3.5-5.1); SODIUM LEVEL 142 MEQ/L (136-145)
[2017-06-19 05:53] LABS: CALCIUM LEVEL 9.3 MG/DL (8.8-10.2)
[2017-06-19] MEDS: SLF 3 ML SYR IV ×3 (07:00→21:47)
[2017-06-19] MEDS: ISOSORBIDE DIN. (ISORDIL) 30 MG TAB PO ×3 (07:00→21:47)
[2017-06-19] MEDS: LEVOTHYROXINE 75MCG TABLET (0.075MG) PO (07:00)
[2017-06-19] MEDS: HumaLOG INSULIN (NovoLOG) PER UNIT SC ×4 (08:33→21:00)
[2017-06-19] MEDS: PANTOPRAZOLE 40MG INJ (PROTONIX) (C9113) IV (08:34)
[2017-06-19] MEDS: MUPIROCIN 2% OINT 22 GM TUBE EXT ×2 (08:34→21:49)
[2017-06-19] MEDS: ALLOPURINOL 300 MG TAB PO (08:34)
[2017-06-19] MEDS: MULTIVITAMINS/MINERALS THERAP 1 TAB PO (08:34)
[2017-06-19] MEDS: LIDOCAINE 5% (LIDODERM) PATCH TD (09:13)
[2017-06-19] MEDS: LORazepam 1 MG TAB PO (10:44)
[2017-06-19 11:56] LABS: BEDSIDE GLUCOSE 101 MG/DL (83-110)
[2017-06-19] MEDS: **hydrALAZINE** 10 MG TAB PO ×2 (14:00→21:30)
[2017-06-19 17:18] LABS: BEDSIDE GLUCOSE 184 MG/DL (83-110)
[2017-06-19] MEDS: FUROSEMIDE 40 MG/4 ML VIAL (J1940) IV (17:30)
[2017-06-19] MEDS: RIVAROXABAN 10 MG TAB (XARELTO) PO (17:31)
[2017-06-19] MEDS: **NOTE PATIENT COMMENT** MISC XX (21:00)
[2017-06-19] MEDS: ATORVASTATIN 20 MG TAB PO (21:47)
[2017-06-19] MEDS: LATANOPROST 0.005% OPHTH SOLN 2.5 ML OU (21:48)
[2017-06-19] MEDS: LEVEMIR (INSULIN DETEMIR) 1 UNITS/0.01ML SC (22:24)
[2017-06-20] MEDS: LORazepam 1 MG TAB PO (02:53)
[2017-06-20 03:43] LABS: HEMATOCRIT 29.4 % (42.0-52.0); HEMOGLOBIN 9.3 g/dl (13.5-17.5); MEAN CORPUSCULAR HEMOGLOBIN 28.1 pg (27.0-33.0); MEAN CORPUSCULAR HGB CONC 31.6 g/dl (32.0-36.5); MEAN CORPUSCULAR VOLUME 88.8 fl (80.0-96.0); PLATELET COUNT, AUTOMATED 129 10^3/uL (150-450); RED BLOOD COUNT 3.31 10^6/uL (4.30-6.10); RED CELL DISTRIBUTION WIDTH 16.1 % (11.5-14.5); WHITE BLOOD COUNT 4.1 10^3/uL (4.0-10.0)
[2017-06-20 04:00] LABS: ANION GAP 7 MEQ/L (8-16); BLOOD UREA NITROGEN 35 MG/DL (7-18); CALCIUM LEVEL 8.5 MG/DL (8.8-10.2); CARBON DIOXIDE LEVEL 26 MEQ/L (21-32); CHLORIDE LEVEL 110 MEQ/L (98-107); GLOMERULAR FILTRATION RATE 39.5 (>42); GLUCOSE, FASTING 191 MG/DL (70-100); POTASSIUM SERUM 3.5 MEQ/L (3.5-5.1); SODIUM LEVEL 143 MEQ/L (136-145)
[2017-06-20] MEDS: **hydrALAZINE** 10 MG TAB PO (06:00)
[2017-06-20] MEDS: ISOSORBIDE DIN. (ISORDIL) 30 MG TAB PO ×3 (06:32→22:42)
[2017-06-20] MEDS: LEVOTHYROXINE 75MCG TABLET (0.075MG) PO (06:32)
[2017-06-20] MEDS: SLF 3 ML SYR IV ×3 (06:32→21:01)
[2017-06-20 07:57] LABS: BEDSIDE GLUCOSE 181 MG/DL (83-110)
[2017-06-20] MEDS: HumaLOG INSULIN (NovoLOG) PER UNIT SC ×4 (08:52→21:00)
[2017-06-20] MEDS: MULTIVITAMINS/MINERALS THERAP 1 TAB PO (08:52)
[2017-06-20] MEDS: PANTOPRAZOLE 40MG TAB (PROTONIX) PO (08:52)
[2017-06-20] MEDS: ALLOPURINOL 300 MG TAB PO (08:52)
[2017-06-20] MEDS: FUROSEMIDE 40 MG/4 ML VIAL (J1940) IV ×3 (08:53→17:09)
[2017-06-20] MEDS: MUPIROCIN 2% OINT 22 GM TUBE EXT ×2 (08:53→20:57)
[2017-06-20] MEDS: LIDOCAINE 5% (LIDODERM) PATCH TD (09:00)
[2017-06-20 13:05] LABS: BEDSIDE GLUCOSE 154 MG/DL (83-110)
[2017-06-20] MEDS: RIVAROXABAN 10 MG TAB (XARELTO) PO (17:09)
[2017-06-20] MEDS: ATORVASTATIN 20 MG TAB PO (20:53)
[2017-06-20] MEDS: SENOKOT S TAB PO (20:53)
[2017-06-20] MEDS: **NOTE PATIENT COMMENT** MISC XX (20:55)
[2017-06-20] MEDS: EUCERIN 120GM CREAM TOP (20:55)
[2017-06-20] MEDS: LATANOPROST 0.005% OPHTH SOLN 2.5 ML OU (20:55)
[2017-06-20] MEDS: LEVEMIR (INSULIN DETEMIR) 1 UNITS/0.01ML SC (21:01)
[2017-06-20 22:21] LABS: BEDSIDE GLUCOSE 225 MG/DL (83-110)
[2017-06-20 22:21] LABS: BEDSIDE GLUCOSE 130 MG/DL (83-110)
[2017-06-20] MEDS: PERCOCET 5MG/325MG TAB PO (23:40)
[2017-06-21] MEDS: LEVOTHYROXINE 75MCG TABLET (0.075MG) PO (05:24)
[2017-06-21] MEDS: SLF 3 ML SYR IV ×3 (05:25→21:51)
[2017-06-21] MEDS: ISOSORBIDE DIN. (ISORDIL) 30 MG TAB PO ×3 (05:25→21:28)
[2017-06-21 05:30] LABS: HEMATOCRIT 30.4 % (42.0-52.0); HEMOGLOBIN 9.7 g/dl (13.5-17.5); MEAN CORPUSCULAR HEMOGLOBIN 27.7 pg (27.0-33.0); MEAN CORPUSCULAR HGB CONC 31.9 g/dl (32.0-36.5); MEAN CORPUSCULAR VOLUME 86.9 fl (80.0-96.0); PLATELET COUNT, AUTOMATED 140 10^3/uL (150-450); RED CELL DISTRIBUTION WIDTH 15.9 % (11.5-14.5); WHITE BLOOD COUNT 4.1 10^3/uL (4.0-10.0)
[2017-06-21 05:43] LABS: ANION GAP 6 MEQ/L (8-16); BLOOD UREA NITROGEN 37 MG/DL (7-18); CALCIUM LEVEL 8.6 MG/DL (8.8-10.2); CARBON DIOXIDE LEVEL 27 MEQ/L (21-32); CHLORIDE LEVEL 112 MEQ/L (98-107); CREATININE FOR GFR 1.72 MG/DL (0.70-1.30); GLOMERULAR FILTRATION RATE 41.6 (>42); GLUCOSE, FASTING 88 MG/DL (70-100); POTASSIUM SERUM 3.3 MEQ/L (3.5-5.1); SODIUM LEVEL 145 MEQ/L (136-145)
[2017-06-21] MEDS: HumaLOG INSULIN (NovoLOG) PER UNIT SC ×4 (06:20→21:00)
[2017-06-21] MEDS: MULTIVITAMINS/MINERALS THERAP 1 TAB PO (07:48)
[2017-06-21] MEDS: PANTOPRAZOLE 40MG TAB (PROTONIX) PO (07:48)
[2017-06-21] MEDS: SENOKOT S TAB PO ×2 (07:48→21:27)
[2017-06-21] MEDS: ALLOPURINOL 300 MG TAB PO (07:48)
[2017-06-21] MEDS: FUROSEMIDE 40 MG/4 ML VIAL (J1940) IV ×3 (07:49→23:37)
[2017-06-21] MEDS: EUCERIN 120GM CREAM TOP ×2 (07:56→21:30)
[2017-06-21] MEDS: MUPIROCIN 2% OINT 22 GM TUBE EXT ×2 (07:57→21:30)
[2017-06-21] MEDS ORDERED: BISACODYL 10 MG SUPP PR (08:15)
[2017-06-21] MEDS: POTASSIUM CHLORIDE 10 MEQ SR TABLET PO (09:13)
[2017-06-21] MEDS: CINACALCET 30 MG TAB (SENSIPAR) PO (09:13)
[2017-06-21] MEDS: ASPIRIN 81 MG ENTERIC TAB PO (11:20)
[2017-06-21] MEDS: LIDOCAINE 5% (LIDODERM) PATCH TD (11:21)
[2017-06-21] MEDS: MIRALAX *UNIT DOSE* 17GM PACKET PO (12:15)
[2017-06-21 12:18] LABS: BEDSIDE GLUCOSE 170 MG/DL (83-110)
[2017-06-21] MEDS ORDERED: FUROSEMIDE 40 MG/4 ML VIAL (J1940) IV (14:00)
[2017-06-21] MEDS: PERCOCET 5MG/325MG TAB PO (17:04)
[2017-06-21] MEDS: RIVAROXABAN 10 MG TAB (XARELTO) PO (18:17)
[2017-06-21] MEDS: LORazepam 1 MG TAB PO (21:27)
[2017-06-21] MEDS: ATORVASTATIN 20 MG TAB PO (21:27)
[2017-06-21] MEDS: LEVEMIR (INSULIN DETEMIR) 1 UNITS/0.01ML SC (21:28)
[2017-06-21] MEDS: LATANOPROST 0.005% OPHTH SOLN 2.5 ML OU (21:29)
[2017-06-21] MEDS: **NOTE PATIENT COMMENT** MISC XX (21:51)
[2017-06-22 00:04] LABS: BEDSIDE GLUCOSE 151 MG/DL (83-110)
[2017-06-22 00:05] LABS: BEDSIDE GLUCOSE 195 MG/DL (83-110)
[2017-06-22] MEDS: ISOSORBIDE DIN. (ISORDIL) 30 MG TAB PO ×3 (05:50→20:54)
[2017-06-22] MEDS: LEVOTHYROXINE 75MCG TABLET (0.075MG) PO (05:50)
[2017-06-22] MEDS: SLF 3 ML SYR IV ×3 (05:50→20:54)
[2017-06-22 05:53] LABS: HEMATOCRIT 28.6 % (42.0-52.0); HEMOGLOBIN 9.2 g/dl (13.5-17.5); MEAN CORPUSCULAR HGB CONC 32.2 g/dl (32.0-36.5); MEAN CORPUSCULAR VOLUME 86.9 fl (80.0-96.0); PLATELET COUNT, AUTOMATED 158 10^3/uL (150-450); RED BLOOD COUNT 3.29 10^6/uL (4.30-6.10); WHITE BLOOD COUNT 4.5 10^3/uL (4.0-10.0)
[2017-06-22] MEDS: VALSARTAN 80 MG TAB (DIOVAN) PO (06:24)
[2017-06-22 08:11] LABS: BASO % 0.5 % (0.0-1.0); EOS # 0.1 10^3/uL (0.0-0.50); EOS % 2.3 % (0.0-3.0); IMMATURE GRANULOCYTE % 0.2 % (0-3.0); LYMPH # 1.1 10^3/uL (1.5-4.5); LYMPH % 24.5 % (24.0-44.0); MONO # 0.4 10^3/uL (0.0-0.8); MONO % 9.2 % (0.0-5.0); NEUTROPHILS # 2.8 10^3/uL (1.8-7.7); NEUTROPHILS % 63.3 % (36.0-66.0)
[2017-06-22 08:15] LABS: DIFF SLIDE NUMBER 36
[2017-06-22 08:16] LABS: PLATELET ESTIMATE NORMAL (NORMAL)
[2017-06-22 08:17] LABS: ANION GAP 7 MEQ/L (8-16); BLOOD UREA NITROGEN 39 MG/DL (7-18); CALCIUM LEVEL 8.2 MG/DL (8.8-10.2); CARBON DIOXIDE LEVEL 27 MEQ/L (21-32); CHLORIDE LEVEL 113 MEQ/L (98-107); CREATININE FOR GFR 1.69 MG/DL (0.70-1.30); GLOMERULAR FILTRATION RATE 42.4 (>42); GLUCOSE, FASTING 109 MG/DL (70-100); MAGNESIUM LEVEL 2.1 MG/DL (1.8-2.4); POTASSIUM SERUM 3.8 MEQ/L (3.5-5.1); SODIUM LEVEL 147 MEQ/L (136-145)
[2017-06-22] MEDS: FUROSEMIDE 40 MG/4 ML VIAL (J1940) IV ×2 (08:43→16:13)
[2017-06-22] MEDS: ASPIRIN 81 MG ENTERIC TAB PO (08:44)
[2017-06-22] MEDS: ALLOPURINOL 300 MG TAB PO (08:44)
[2017-06-22] MEDS: HumaLOG INSULIN (NovoLOG) PER UNIT SC ×4 (08:44→20:44)
[2017-06-22] MEDS: PANTOPRAZOLE 40MG TAB (PROTONIX) PO (08:44)
[2017-06-22] MEDS: MULTIVITAMINS/MINERALS THERAP 1 TAB PO (08:44)
[2017-06-22] MEDS: POTASSIUM CHLORIDE 10 MEQ SR TABLET PO ×2 (08:45→20:50)
[2017-06-22] MEDS: MUPIROCIN 2% OINT 22 GM TUBE EXT ×2 (08:46→20:51)
[2017-06-22] MEDS: EUCERIN 120GM CREAM TOP ×2 (08:46→20:52)
[2017-06-22] MEDS: SENOKOT S TAB PO ×2 (08:51→20:51)
[2017-06-22] MEDS: LIDOCAINE 5% (LIDODERM) PATCH TD (08:57)
[2017-06-22 12:29] LABS: HEMOGLOBIN 10.2 g/dl (13.5-17.5)
[2017-06-22 13:21] LABS: BEDSIDE GLUCOSE 149 MG/DL (83-110)
[2017-06-22] MEDS: amLODIPine 5 MG TAB PO (14:29)
[2017-06-22] MEDS: GOLYTELY SOLN 4000 ML BTL PO (16:23)
[2017-06-22 18:12] LABS: HEMATOCRIT 31.2 % (42.0-52.0)
[2017-06-22] MEDS: ATORVASTATIN 20 MG TAB PO (20:50)
[2017-06-22] MEDS: LEVEMIR (INSULIN DETEMIR) 1 UNITS/0.01ML SC (20:51)
[2017-06-22] MEDS: LATANOPROST 0.005% OPHTH SOLN 2.5 ML OU (20:51)
[2017-06-22 20:53] LABS: BEDSIDE GLUCOSE 195 MG/DL (83-110)
[2017-06-22] MEDS: **NOTE PATIENT COMMENT** MISC XX (20:55)
[2017-06-23] MEDS: FUROSEMIDE 40 MG/4 ML VIAL (J1940) IV ×3 (00:12→15:42)
[2017-06-23 00:13] LABS: HEMATOCRIT 26.6 % (42.0-52.0); HEMOGLOBIN 8.5 g/dl (13.5-17.5)
[2017-06-23] MEDS: GOLYTELY SOLN 4000 ML BTL PO (05:00)
[2017-06-23] MEDS: SLF 3 ML SYR IV ×3 (05:04→22:00)
[2017-06-23] MEDS: ISOSORBIDE DIN. (ISORDIL) 30 MG TAB PO ×3 (05:19→21:56)
[2017-06-23] MEDS: LEVOTHYROXINE 75MCG TABLET (0.075MG) PO (05:19)
[2017-06-23 06:03] LABS: HEMATOCRIT 32.1 % (42.0-52.0); HEMOGLOBIN 10.2 g/dl (13.5-17.5); MEAN CORPUSCULAR HEMOGLOBIN 27.8 pg (27.0-33.0); MEAN CORPUSCULAR HGB CONC 31.8 g/dl (32.0-36.5); MEAN CORPUSCULAR VOLUME 87.5 fl (80.0-96.0); PLATELET COUNT, AUTOMATED 184 10^3/uL (150-450); RED BLOOD COUNT 3.67 10^6/uL (4.30-6.10); WHITE BLOOD COUNT 4.7 10^3/uL (4.0-10.0)
[2017-06-23 06:16] LABS: ANION GAP 6 MEQ/L (8-16); BLOOD UREA NITROGEN 33 MG/DL (7-18); CALCIUM LEVEL 8.8 MG/DL (8.8-10.2); CARBON DIOXIDE LEVEL 28 MEQ/L (21-32); CHLORIDE LEVEL 112 MEQ/L (98-107); CREATININE FOR GFR 1.67 MG/DL (0.70-1.30); GLUCOSE, FASTING 117 MG/DL (70-100); MAGNESIUM LEVEL 2.1 MG/DL (1.8-2.4); POTASSIUM SERUM 3.7 MEQ/L (3.5-5.1); SODIUM LEVEL 146 MEQ/L (136-145)
[2017-06-23] MEDS: HumaLOG INSULIN (NovoLOG) PER UNIT SC ×4 (07:30→21:00)
[2017-06-23] MEDS: POTASSIUM CHLORIDE 10 MEQ SR TABLET PO ×2 (07:49→21:18)
[2017-06-23] MEDS: MULTIVITAMINS/MINERALS THERAP 1 TAB PO ×2 (07:49→07:55)
[2017-06-23] MEDS: amLODIPine 5 MG TAB PO (07:50)
[2017-06-23] MEDS: ASPIRIN 81 MG ENTERIC TAB PO (07:50)
[2017-06-23] MEDS: PANTOPRAZOLE 40MG TAB (PROTONIX) PO (07:50)
[2017-06-23] MEDS: ALLOPURINOL 300 MG TAB PO (07:50)
[2017-06-23] MEDS: SENOKOT S TAB PO ×2 (07:51→21:00)
[2017-06-23] MEDS: MUPIROCIN 2% OINT 22 GM TUBE EXT ×2 (07:51→21:21)
[2017-06-23] MEDS: EUCERIN 120GM CREAM TOP ×2 (07:51→21:21)
[2017-06-23 08:25] LABS: BEDSIDE GLUCOSE 249 MG/DL (83-110)
[2017-06-23] MEDS: ONDANSETRON 4MG/2ML VIAL (J2405) IV (10:22)
[2017-06-23] MEDS ORDERED: PROPOFOL 200 MG/20 ML VIAL As Ordered (12:17)
[2017-06-23 14:04] LABS: HEMATOCRIT 28.1 % (42.0-52.0)
[2017-06-23 18:09] LABS: HEMATOCRIT 29.5 % (42.0-52.0); HEMOGLOBIN 9.6 g/dl (13.5-17.5)
[2017-06-23 20:46] LABS: BEDSIDE GLUCOSE 137 MG/DL (83-110)
[2017-06-23 20:47] LABS: BEDSIDE GLUCOSE 153 MG/DL (83-110)
[2017-06-23] MEDS: **NOTE PATIENT COMMENT** MISC XX (21:00)
[2017-06-23] MEDS: ATORVASTATIN 20 MG TAB PO (21:18)
[2017-06-23] MEDS: LEVEMIR (INSULIN DETEMIR) 1 UNITS/0.01ML SC (21:19)
[2017-06-23] MEDS: LATANOPROST 0.005% OPHTH SOLN 2.5 ML OU (21:21)
[2017-06-23] MEDS: SIMETHICONE 80 MG CHEW TAB PO ×2 (21:56→23:21)
[2017-06-23 22:00] LABS: BEDSIDE GLUCOSE 147 MG/DL (83-110)
[2017-06-24] MEDS: FUROSEMIDE 40 MG/4 ML VIAL (J1940) IV ×2 (00:13→08:00)
[2017-06-24 00:38] LABS: HEMATOCRIT 28.3 % (42.0-52.0)
[2017-06-24] MEDS: LEVOTHYROXINE 75MCG TABLET (0.075MG) PO (05:43)
[2017-06-24] MEDS: ISOSORBIDE DIN. (ISORDIL) 30 MG TAB PO ×3 (05:43→21:45)
[2017-06-24] MEDS: SLF 3 ML SYR IV ×3 (05:44→21:45)
[2017-06-24 06:12] LABS: HEMATOCRIT 28.2 % (42.0-52.0); MEAN CORPUSCULAR HEMOGLOBIN 28.3 pg (27.0-33.0); MEAN CORPUSCULAR HGB CONC 31.9 g/dl (32.0-36.5); MEAN CORPUSCULAR VOLUME 88.7 fl (80.0-96.0); PLATELET COUNT, AUTOMATED 162 10^3/uL (150-450); RED BLOOD COUNT 3.18 10^6/uL (4.30-6.10); RED CELL DISTRIBUTION WIDTH 15.9 % (11.5-14.5); WHITE BLOOD COUNT 4.3 10^3/uL (4.0-10.0)
[2017-06-24 06:34] LABS: ANION GAP 6 MEQ/L (8-16); BLOOD UREA NITROGEN 33 MG/DL (7-18); CALCIUM LEVEL 8.7 MG/DL (8.8-10.2); CARBON DIOXIDE LEVEL 29 MEQ/L (21-32); CHLORIDE LEVEL 111 MEQ/L (98-107); CREATININE FOR GFR 1.69 MG/DL (0.70-1.30); GLOMERULAR FILTRATION RATE 42.4 (>42); GLUCOSE, FASTING 114 MG/DL (70-100); MAGNESIUM LEVEL 2.1 MG/DL (1.8-2.4); POTASSIUM SERUM 3.7 MEQ/L (3.5-5.1); SODIUM LEVEL 146 MEQ/L (136-145)
[2017-06-24] MEDS: FUROSEMIDE 100 MG/10 ML VIAL (J1940) IV ×4 (08:00→18:47)
[2017-06-24] MEDS: SENOKOT S TAB PO ×2 (08:26→20:34)
[2017-06-24] MEDS: MULTIVITAMINS/MINERALS THERAP 1 TAB PO (08:26)
[2017-06-24] MEDS: ASPIRIN 81 MG ENTERIC TAB PO (08:26)
[2017-06-24] MEDS: HumaLOG INSULIN (NovoLOG) PER UNIT SC ×4 (08:26→20:28)
[2017-06-24] MEDS: PANTOPRAZOLE 40MG TAB (PROTONIX) PO (08:26)
[2017-06-24] MEDS: ALLOPURINOL 300 MG TAB PO (08:26)
[2017-06-24] MEDS: POTASSIUM CHLORIDE 10 MEQ SR TABLET PO ×2 (08:26→20:34)
[2017-06-24] MEDS: MUPIROCIN 2% OINT 22 GM TUBE EXT ×2 (08:27→20:35)
[2017-06-24] MEDS: amLODIPine 5 MG TAB PO (08:27)
[2017-06-24] MEDS: EUCERIN 120GM CREAM TOP ×2 (08:28→20:35)
[2017-06-24] MEDS: MIRALAX *UNIT DOSE* 17GM PACKET PO (09:39)
[2017-06-24] MEDS: DOCUSATE SODIUM 100 MG CAP PO ×2 (09:39→20:34)
[2017-06-24 11:42] LABS: BEDSIDE GLUCOSE 174 MG/DL (83-110)
[2017-06-24 16:55] LABS: BEDSIDE GLUCOSE 183 MG/DL (83-110)
[2017-06-24] MEDS: LIDOCAINE 5% (LIDODERM) PATCH TD (16:58)
[2017-06-24] MEDS: ATORVASTATIN 20 MG TAB PO (20:33)
[2017-06-24] MEDS: LATANOPROST 0.005% OPHTH SOLN 2.5 ML OU (20:34)
[2017-06-24] MEDS: SIMETHICONE 80 MG CHEW TAB PO (20:34)
[2017-06-24 20:35] LABS: BEDSIDE GLUCOSE 200 MG/DL (83-110)
[2017-06-24] MEDS: LEVEMIR (INSULIN DETEMIR) 1 UNITS/0.01ML SC (20:35)
[2017-06-24] MEDS: **NOTE PATIENT COMMENT** MISC XX (21:46)
[2017-06-25] MEDS: ISOSORBIDE DIN. (ISORDIL) 30 MG TAB PO ×3 (05:45→21:24)
[2017-06-25] MEDS: LEVOTHYROXINE 75MCG TABLET (0.075MG) PO (05:45)
[2017-06-25] MEDS: SLF 3 ML SYR IV ×3 (05:46→21:25)
[2017-06-25 06:30] LABS: HEMATOCRIT 31.2 % (42.0-52.0); MEAN CORPUSCULAR HEMOGLOBIN 28.3 pg (27.0-33.0); MEAN CORPUSCULAR HGB CONC 32.1 g/dl (32.0-36.5); MEAN CORPUSCULAR VOLUME 88.4 fl (80.0-96.0); PLATELET COUNT, AUTOMATED 178 10^3/uL (150-450); RED BLOOD COUNT 3.53 10^6/uL (4.30-6.10); RED CELL DISTRIBUTION WIDTH 16.2 % (11.5-14.5); WHITE BLOOD COUNT 4.5 10^3/uL (4.0-10.0)
[2017-06-25 06:43] LABS: ANION GAP 6 MEQ/L (8-16); BLOOD UREA NITROGEN 34 MG/DL (7-18); CALCIUM LEVEL 9.2 MG/DL (8.8-10.2); CARBON DIOXIDE LEVEL 27 MEQ/L (21-32); CHLORIDE LEVEL 111 MEQ/L (98-107); CREATININE FOR GFR 1.81 MG/DL (0.70-1.30); GLOMERULAR FILTRATION RATE 39.2 (>42); GLUCOSE, FASTING 112 MG/DL (70-100); MAGNESIUM LEVEL 2.2 MG/DL (1.8-2.4); POTASSIUM SERUM 3.9 MEQ/L (3.5-5.1); SODIUM LEVEL 144 MEQ/L (136-145)
[2017-06-25] MEDS: FUROSEMIDE 100 MG/10 ML VIAL (J1940) IV ×3 (08:00→18:09)
[2017-06-25] MEDS: HumaLOG INSULIN (NovoLOG) PER UNIT SC ×4 (08:07→21:00)
[2017-06-25] MEDS: POTASSIUM CHLORIDE 10 MEQ SR TABLET PO ×2 (08:08→21:24)
[2017-06-25] MEDS: ALLOPURINOL 300 MG TAB PO (08:08)
[2017-06-25] MEDS: SENOKOT S TAB PO ×2 (08:08→21:24)
[2017-06-25] MEDS: PANTOPRAZOLE 40MG TAB (PROTONIX) PO (08:08)
[2017-06-25] MEDS: CINACALCET 30 MG TAB (SENSIPAR) PO (08:08)
[2017-06-25] MEDS: DOCUSATE SODIUM 100 MG CAP PO ×2 (08:08→21:25)
[2017-06-25] MEDS: ASPIRIN 81 MG ENTERIC TAB PO (08:09)
[2017-06-25] MEDS: MULTIVITAMINS/MINERALS THERAP 1 TAB PO (08:09)
[2017-06-25] MEDS: MIRALAX *UNIT DOSE* 17GM PACKET PO (08:09)
[2017-06-25] MEDS: amLODIPine 5 MG TAB PO (08:09)
[2017-06-25] MEDS: LIDOCAINE 5% (LIDODERM) PATCH TD (08:10)
[2017-06-25] MEDS: EUCERIN 120GM CREAM TOP ×2 (08:10→21:23)
[2017-06-25] MEDS: MUPIROCIN 2% OINT 22 GM TUBE EXT ×2 (08:10→21:23)
[2017-06-25] MEDS: SIMETHICONE 80 MG CHEW TAB PO (08:16)
[2017-06-25 12:37] LABS: BEDSIDE GLUCOSE 141 MG/DL (83-110)
[2017-06-25 17:43] LABS: BEDSIDE GLUCOSE 168 MG/DL (83-110)
[2017-06-25] MEDS: RIVAROXABAN 10 MG TAB (XARELTO) PO (18:07)
[2017-06-25 20:57] LABS: BEDSIDE GLUCOSE 220 MG/DL (83-110)
[2017-06-25] MEDS: LATANOPROST 0.005% OPHTH SOLN 2.5 ML OU (21:23)
[2017-06-25] MEDS: LEVEMIR (INSULIN DETEMIR) 1 UNITS/0.01ML SC (21:24)
[2017-06-25] MEDS: ATORVASTATIN 20 MG TAB PO (21:24)
[2017-06-25] MEDS: **NOTE PATIENT COMMENT** MISC XX (21:25)
[2017-06-26 05:50] LABS: HEMATOCRIT 26.9 % (42.0-52.0); HEMOGLOBIN 8.5 g/dl (13.5-17.5); MEAN CORPUSCULAR HEMOGLOBIN 27.5 pg (27.0-33.0); MEAN CORPUSCULAR HGB CONC 31.6 g/dl (32.0-36.5); MEAN CORPUSCULAR VOLUME 87.1 fl (80.0-96.0); PLATELET COUNT, AUTOMATED 159 10^3/uL (150-450); RED BLOOD COUNT 3.09 10^6/uL (4.30-6.10); RED CELL DISTRIBUTION WIDTH 15.9 % (11.5-14.5); WHITE BLOOD COUNT 4.1 10^3/uL (4.0-10.0)
[2017-06-26] MEDS: FUROSEMIDE 100 MG/10 ML VIAL (J1940) IV ×3 (05:58→18:20)
[2017-06-26] MEDS: ISOSORBIDE DIN. (ISORDIL) 30 MG TAB PO ×3 (05:59→22:00)
[2017-06-26] MEDS: SLF 3 ML SYR IV ×3 (05:59→22:02)
[2017-06-26] MEDS: LEVOTHYROXINE 75MCG TABLET (0.075MG) PO (05:59)
[2017-06-26 06:05] LABS: ANION GAP 7 MEQ/L (8-16); BLOOD UREA NITROGEN 32 MG/DL (7-18); CALCIUM LEVEL 8.3 MG/DL (8.8-10.2); CARBON DIOXIDE LEVEL 26 MEQ/L (21-32); CHLORIDE LEVEL 110 MEQ/L (98-107); CREATININE FOR GFR 1.69 MG/DL (0.70-1.30); GLOMERULAR FILTRATION RATE 42.4 (>42); GLUCOSE, FASTING 176 MG/DL (70-100); POTASSIUM SERUM 3.6 MEQ/L (3.5-5.1); SODIUM LEVEL 143 MEQ/L (136-145)
[2017-06-26 06:47] LABS: BEDSIDE GLUCOSE 149 MG/DL (83-110)
[2017-06-26] MEDS: HumaLOG INSULIN (NovoLOG) PER UNIT SC ×4 (08:11→20:47)
[2017-06-26] MEDS: MIRALAX *UNIT DOSE* 17GM PACKET PO (08:11)
[2017-06-26] MEDS: MULTIVITAMINS/MINERALS THERAP 1 TAB PO (08:12)
[2017-06-26] MEDS: POTASSIUM CHLORIDE 10 MEQ SR TABLET PO ×2 (08:12→22:00)
[2017-06-26] MEDS: LIDOCAINE 5% (LIDODERM) PATCH TD (08:12)
[2017-06-26] MEDS: PANTOPRAZOLE 40MG TAB (PROTONIX) PO (08:12)
[2017-06-26] MEDS: ALLOPURINOL 300 MG TAB PO (08:12)
[2017-06-26] MEDS: ASPIRIN 81 MG ENTERIC TAB PO (08:12)
[2017-06-26] MEDS: amLODIPine 5 MG TAB PO (08:13)
[2017-06-26] MEDS: DOCUSATE SODIUM 100 MG CAP PO ×2 (08:36→21:00)
[2017-06-26] MEDS: SENOKOT S TAB PO ×2 (08:37→21:00)
[2017-06-26] MEDS: MUPIROCIN 2% OINT 22 GM TUBE EXT ×2 (09:00→22:51)
[2017-06-26] MEDS: EUCERIN 120GM CREAM TOP ×2 (09:00→22:02)
[2017-06-26 12:14] LABS: HEMATOCRIT 30.3 % (42.0-52.0); HEMOGLOBIN 9.8 g/dl (13.5-17.5)
[2017-06-26 12:17] LABS: BEDSIDE GLUCOSE 137 MG/DL (83-110)
[2017-06-26] MEDS: MAALOX 30 ML SUSP *UDC PO (13:17)
[2017-06-26 16:57] LABS: BEDSIDE GLUCOSE 182 MG/DL (83-110)
[2017-06-26] MEDS: SODIUM CHLORIDE NASAL 0.65% SPRAY BTL (OCEAN) ×2 (18:19→22:01)
[2017-06-26] MEDS: RIVAROXABAN 10 MG TAB (XARELTO) PO (18:20)
[2017-06-26 20:57] LABS: BEDSIDE GLUCOSE 233 MG/DL (83-110)
[2017-06-26] MEDS: **NOTE PATIENT COMMENT** MISC XX (21:00)
[2017-06-26] MEDS: LEVEMIR (INSULIN DETEMIR) 1 UNITS/0.01ML SC (22:00)
[2017-06-26] MEDS: ATORVASTATIN 20 MG TAB PO (22:01)
[2017-06-26] MEDS: LATANOPROST 0.005% OPHTH SOLN 2.5 ML OU (22:02)
[2017-06-26] MEDS: LORazepam 1 MG TAB PO (23:00)
[2017-06-27] MEDS: FUROSEMIDE 100 MG/10 ML VIAL (J1940) IV ×3 (06:20→18:06)
[2017-06-27] MEDS: SLF 3 ML SYR IV ×3 (06:21→21:38)
[2017-06-27] MEDS: ISOSORBIDE DIN. (ISORDIL) 30 MG TAB PO ×3 (06:21→21:36)
[2017-06-27] MEDS: LEVOTHYROXINE 75MCG TABLET (0.075MG) PO (06:21)
[2017-06-27 06:29] LABS: ANION GAP 8 MEQ/L (8-16); BLOOD UREA NITROGEN 28 MG/DL (7-18); CALCIUM LEVEL 8.5 MG/DL (8.8-10.2); CARBON DIOXIDE LEVEL 26 MEQ/L (21-32); CHLORIDE LEVEL 112 MEQ/L (98-107); CREATININE FOR GFR 1.62 MG/DL (0.70-1.30); GLOMERULAR FILTRATION RATE 44.6 (>42); GLUCOSE, FASTING 101 MG/DL (70-100); POTASSIUM SERUM 3.7 MEQ/L (3.5-5.1); SODIUM LEVEL 146 MEQ/L (136-145)
[2017-06-27] MEDS: HumaLOG INSULIN (NovoLOG) PER UNIT SC ×4 (07:30→21:00)
[2017-06-27 07:34] LABS: HEMATOCRIT 26.5 % (42.0-52.0); HEMOGLOBIN 8.6 g/dl (13.5-17.5); MEAN CORPUSCULAR HEMOGLOBIN 28.5 pg (27.0-33.0); MEAN CORPUSCULAR HGB CONC 32.5 g/dl (32.0-36.5); MEAN CORPUSCULAR VOLUME 87.7 fl (80.0-96.0); PLATELET COUNT, AUTOMATED 167 10^3/uL (150-450); RED BLOOD COUNT 3.02 10^6/uL (4.30-6.10)
[2017-06-27] MEDS: MIRALAX *UNIT DOSE* 17GM PACKET PO (09:00)
[2017-06-27] MEDS: SENOKOT S TAB PO (09:00)
[2017-06-27] MEDS: LIDOCAINE 5% (LIDODERM) PATCH TD (09:29)
[2017-06-27] MEDS: DOCUSATE SODIUM 100 MG CAP PO ×2 (09:30→21:37)
[2017-06-27] MEDS: POTASSIUM CHLORIDE 10 MEQ SR TABLET PO ×2 (09:30→21:36)
[2017-06-27] MEDS: PANTOPRAZOLE 40MG TAB (PROTONIX) PO (09:30)
[2017-06-27] MEDS: ALLOPURINOL 300 MG TAB PO (09:30)
[2017-06-27] MEDS: ASPIRIN 81 MG ENTERIC TAB PO (09:30)
[2017-06-27] MEDS: MULTIVITAMINS/MINERALS THERAP 1 TAB PO (09:30)
[2017-06-27] MEDS: MUPIROCIN 2% OINT 22 GM TUBE EXT ×2 (09:31→21:35)
[2017-06-27] MEDS: EUCERIN 120GM CREAM TOP ×2 (09:31→21:39)
[2017-06-27] MEDS: amLODIPine 5 MG TAB PO (10:14)
[2017-06-27] MEDS: CARVedilol 3.125 MG TAB PO ×2 (11:07→21:37)
[2017-06-27 12:17] LABS: BEDSIDE GLUCOSE 179 MG/DL (83-110)
[2017-06-27 12:43] LABS: HEMATOCRIT 30.5 % (42.0-52.0); HEMOGLOBIN 9.8 g/dl (13.5-17.5)
[2017-06-27 17:13] LABS: BEDSIDE GLUCOSE 188 MG/DL (83-110)
[2017-06-27] MEDS: RIVAROXABAN 10 MG TAB (XARELTO) PO (18:06)
[2017-06-27 20:24] LABS: BEDSIDE GLUCOSE 187 MG/DL (83-110)
[2017-06-27] MEDS: **NOTE PATIENT COMMENT** MISC XX (21:00)
[2017-06-27] MEDS: LATANOPROST 0.005% OPHTH SOLN 2.5 ML OU (21:35)
[2017-06-27] MEDS: ATORVASTATIN 20 MG TAB PO (21:37)
[2017-06-27] MEDS: LEVEMIR (INSULIN DETEMIR) 1 UNITS/0.01ML SC (21:38)
[2017-06-27] MEDS: LORazepam 1 MG TAB PO (23:28)
[2017-06-28] MEDS: ACETAMINOPHEN TAB 650MG DOSE (2X325MG) PO (00:56)
[2017-06-28] MEDS: LEVOTHYROXINE 75MCG TABLET (0.075MG) PO (05:52)
[2017-06-28] MEDS: ISOSORBIDE DIN. (ISORDIL) 30 MG TAB PO ×3 (05:54→21:13)
[2017-06-28] MEDS: SLF 3 ML SYR IV ×3 (05:54→21:15)
[2017-06-28] MEDS: FUROSEMIDE 100 MG/10 ML VIAL (J1940) IV ×3 (05:54→17:42)
[2017-06-28 06:19] LABS: ANION GAP 4 MEQ/L (8-16); BLOOD UREA NITROGEN 31 MG/DL (7-18); CALCIUM LEVEL 8.8 MG/DL (8.8-10.2); CARBON DIOXIDE LEVEL 29 MEQ/L (21-32); CHLORIDE LEVEL 111 MEQ/L (98-107); CREATININE FOR GFR 1.84 MG/DL (0.70-1.30); GLOMERULAR FILTRATION RATE 38.5 (>42); GLUCOSE, FASTING 182 MG/DL (70-100); MAGNESIUM LEVEL 2.1 MG/DL (1.8-2.4); POTASSIUM SERUM 3.6 MEQ/L (3.5-5.1); SODIUM LEVEL 144 MEQ/L (136-145)
[2017-06-28 07:31] LABS: HEMATOCRIT 26.6 % (42.0-52.0); HEMOGLOBIN 8.5 g/dl (13.5-17.5); MEAN CORPUSCULAR HEMOGLOBIN 28.5 pg (27.0-33.0); MEAN CORPUSCULAR VOLUME 89.3 fl (80.0-96.0); PLATELET COUNT, AUTOMATED 160 10^3/uL (150-450); RED BLOOD COUNT 2.98 10^6/uL (4.30-6.10); RED CELL DISTRIBUTION WIDTH 16.1 % (11.5-14.5); WHITE BLOOD COUNT 4.1 10^3/uL (4.0-10.0)
[2017-06-28] MEDS: HumaLOG INSULIN (NovoLOG) PER UNIT SC ×4 (07:45→20:36)
[2017-06-28] MEDS: POTASSIUM CHLORIDE 10 MEQ SR TABLET PO ×2 (07:46→21:14)
[2017-06-28] MEDS: PANTOPRAZOLE 40MG TAB (PROTONIX) PO (07:46)
[2017-06-28] MEDS: LIDOCAINE 5% (LIDODERM) PATCH TD (07:46)
[2017-06-28] MEDS: ASPIRIN 81 MG ENTERIC TAB PO (07:47)
[2017-06-28] MEDS: ALLOPURINOL 300 MG TAB PO (07:47)
[2017-06-28] MEDS: MULTIVITAMINS/MINERALS THERAP 1 TAB PO ×2 (07:47→08:00)
[2017-06-28] MEDS: amLODIPine 5 MG TAB PO (07:47)
[2017-06-28] MEDS: DOCUSATE SODIUM 100 MG CAP PO ×2 (07:47→21:13)
[2017-06-28] MEDS: CARVedilol 3.125 MG TAB PO ×2 (07:47→21:13)
[2017-06-28] MEDS: CINACALCET 30 MG TAB (SENSIPAR) PO (07:47)
[2017-06-28] MEDS: EUCERIN 120GM CREAM TOP ×2 (07:48→21:15)
[2017-06-28] MEDS: MUPIROCIN 2% OINT 22 GM TUBE EXT ×2 (07:53→21:15)
[2017-06-28] MEDS: MIRALAX *UNIT DOSE* 17GM PACKET PO (07:59)
[2017-06-28 11:43] LABS: HEMATOCRIT 30.5 % (42.0-52.0); HEMOGLOBIN 9.8 g/dl (13.5-17.5)
[2017-06-28 12:24] LABS: CK-MB VALUE MASS 1.5 NG/ML (<3.6); CPK CREATINE PHOSPHOKINASE 71 U/L (39-308); MB/CK RELATIVE INDEX 2.11 (< OR =4); TROPONIN I 0.02 NG/ML (< 0.10)
[2017-06-28 13:16] LABS: BEDSIDE GLUCOSE 150 MG/DL (83-110)
[2017-06-28] MEDS: RIVAROXABAN 10 MG TAB (XARELTO) PO (17:42)
[2017-06-28 18:05] LABS: CK-MB VALUE MASS 1.2 NG/ML (<3.6); CPK CREATINE PHOSPHOKINASE 63 U/L (39-308); TROPONIN I < 0.02 NG/ML (< 0.10)
[2017-06-28] MEDS: LACTULOSE 20 GM/30 ML SYRUP UD PO (21:12)
[2017-06-28] MEDS: ATORVASTATIN 20 MG TAB PO (21:14)
[2017-06-28] MEDS: LEVEMIR (INSULIN DETEMIR) 1 UNITS/0.01ML SC (21:14)
[2017-06-28] MEDS: **NOTE PATIENT COMMENT** MISC XX (21:15)
[2017-06-28] MEDS: LATANOPROST 0.005% OPHTH SOLN 2.5 ML OU (21:15)
[2017-06-28 21:30] LABS: BEDSIDE GLUCOSE 185 MG/DL (83-110)
[2017-06-28 21:30] LABS: BEDSIDE GLUCOSE 237 MG/DL (83-110)
[2017-06-28] MEDS: LORazepam 1 MG TAB PO (23:54)
[2017-06-29] MEDS: ISOSORBIDE DIN. (ISORDIL) 30 MG TAB PO ×3 (05:57→22:11)
[2017-06-29] MEDS: LEVOTHYROXINE 75MCG TABLET (0.075MG) PO (05:57)
[2017-06-29] MEDS: FUROSEMIDE 100 MG/10 ML VIAL (J1940) IV ×3 (05:57→18:27)
[2017-06-29] MEDS: SLF 3 ML SYR IV ×3 (05:57→22:00)
[2017-06-29 06:09] LABS: HEMOGLOBIN 8.7 g/dl (13.5-17.5); MEAN CORPUSCULAR HEMOGLOBIN 28.3 pg (27.0-33.0); MEAN CORPUSCULAR HGB CONC 32.2 g/dl (32.0-36.5); MEAN CORPUSCULAR VOLUME 87.9 fl (80.0-96.0); PLATELET COUNT, AUTOMATED 174 10^3/uL (150-450); RED BLOOD COUNT 3.07 10^6/uL (4.30-6.10); RED CELL DISTRIBUTION WIDTH 16.1 % (11.5-14.5); WHITE BLOOD COUNT 4.7 10^3/uL (4.0-10.0)
[2017-06-29 06:23] LABS: ANION GAP 7 MEQ/L (8-16); BLOOD UREA NITROGEN 29 MG/DL (7-18); CALCIUM LEVEL 8.4 MG/DL (8.8-10.2); CARBON DIOXIDE LEVEL 27 MEQ/L (21-32); CHLORIDE LEVEL 111 MEQ/L (98-107); CREATININE FOR GFR 1.74 MG/DL (0.70-1.30); GLUCOSE, FASTING 129 MG/DL (70-100); MAGNESIUM LEVEL 2.2 MG/DL (1.8-2.4); POTASSIUM SERUM 3.5 MEQ/L (3.5-5.1); SODIUM LEVEL 145 MEQ/L (136-145)
[2017-06-29] MEDS: DOCUSATE SODIUM 100 MG CAP PO ×2 (08:41→21:42)
[2017-06-29] MEDS: HumaLOG INSULIN (NovoLOG) PER UNIT SC ×4 (08:41→20:36)
[2017-06-29] MEDS: ASPIRIN 81 MG ENTERIC TAB PO (08:41)
[2017-06-29] MEDS: MULTIVITAMINS/MINERALS THERAP 1 TAB PO (08:41)
[2017-06-29] MEDS: ALLOPURINOL 300 MG TAB PO (08:42)
[2017-06-29] MEDS: SENNA 8.6 MG TAB (SENOKOT) PO ×2 (08:42→21:41)
[2017-06-29] MEDS: CARVedilol 3.125 MG TAB PO ×2 (08:42→21:42)
[2017-06-29] MEDS: PANTOPRAZOLE 40MG TAB (PROTONIX) PO (08:42)
[2017-06-29] MEDS: POTASSIUM CHLORIDE 10 MEQ SR TABLET PO ×2 (08:42→21:42)
[2017-06-29] MEDS: LIDOCAINE 5% (LIDODERM) PATCH TD (08:44)
[2017-06-29] MEDS: EUCERIN 120GM CREAM TOP ×2 (08:44→21:44)
[2017-06-29] MEDS: MUPIROCIN 2% OINT 22 GM TUBE EXT ×2 (08:45→21:44)
[2017-06-29] MEDS: MIRALAX *UNIT DOSE* 17GM PACKET PO (08:53)
[2017-06-29 11:54] LABS: BEDSIDE GLUCOSE 172 MG/DL (83-110)
[2017-06-29 16:44] LABS: BEDSIDE GLUCOSE 139 MG/DL (83-110)
[2017-06-29] MEDS: RIVAROXABAN 10 MG TAB (XARELTO) PO (18:26)
[2017-06-29] MEDS: FUROSEMIDE 80 MG TAB PO (18:54)
[2017-06-29] MEDS: ATORVASTATIN 20 MG TAB PO (21:41)
[2017-06-29] MEDS: LEVEMIR (INSULIN DETEMIR) 1 UNITS/0.01ML SC (21:43)
[2017-06-29] MEDS: LATANOPROST 0.005% OPHTH SOLN 2.5 ML OU (21:44)
[2017-06-29] MEDS: **NOTE PATIENT COMMENT** MISC XX (22:10)
[2017-06-29 22:15] LABS: BEDSIDE GLUCOSE 220 MG/DL (83-110)
[2017-06-29] MEDS: ACETAMINOPHEN TAB 650MG DOSE (2X325MG) PO (23:46)
[2017-06-30] MEDS: SLF 3 ML SYR IV (05:44)
[2017-06-30] MEDS: LEVOTHYROXINE 75MCG TABLET (0.075MG) PO (06:21)
[2017-06-30] MEDS: ISOSORBIDE DIN. (ISORDIL) 30 MG TAB PO (06:21)
[2017-06-30 06:47] LABS: HEMATOCRIT 29.1 % (42.0-52.0); HEMOGLOBIN 9.4 g/dl (13.5-17.5); MEAN CORPUSCULAR HEMOGLOBIN 28.1 pg (27.0-33.0); MEAN CORPUSCULAR HGB CONC 32.3 g/dl (32.0-36.5); MEAN CORPUSCULAR VOLUME 87.1 fl (80.0-96.0); PLATELET COUNT, AUTOMATED 172 10^3/uL (150-450); RED BLOOD COUNT 3.34 10^6/uL (4.30-6.10); RED CELL DISTRIBUTION WIDTH 15.8 % (11.5-14.5); WHITE BLOOD COUNT 4.5 10^3/uL (4.0-10.0)
[2017-06-30 07:05] LABS: ANION GAP 7 MEQ/L (8-16); BLOOD UREA NITROGEN 33 MG/DL (7-18); CALCIUM LEVEL 8.7 MG/DL (8.8-10.2); CARBON DIOXIDE LEVEL 27 MEQ/L (21-32); CHLORIDE LEVEL 109 MEQ/L (98-107); CREATININE FOR GFR 1.85 MG/DL (0.70-1.30); GLOMERULAR FILTRATION RATE 38.2 (>42); GLUCOSE, FASTING 113 MG/DL (70-100); MAGNESIUM LEVEL 1.9 MG/DL (1.8-2.4); POTASSIUM SERUM 3.7 MEQ/L (3.5-5.1); SODIUM LEVEL 143 MEQ/L (136-145)
[2017-06-30] MEDS: MULTIVITAMINS/MINERALS THERAP 1 TAB PO (08:27)
[2017-06-30] MEDS: DOCUSATE SODIUM 100 MG CAP PO (08:27)
[2017-06-30] MEDS: SENNA 8.6 MG TAB (SENOKOT) PO (08:27)
[2017-06-30] MEDS: CARVedilol 3.125 MG TAB PO (08:27)
[2017-06-30] MEDS: PANTOPRAZOLE 40MG TAB (PROTONIX) PO (08:28)
[2017-06-30] MEDS: POTASSIUM CHLORIDE 10 MEQ SR TABLET PO (08:28)
[2017-06-30] MEDS: ASPIRIN 81 MG ENTERIC TAB PO (08:28)
[2017-06-30] MEDS: ALLOPURINOL 300 MG TAB PO (08:28)
[2017-06-30] MEDS: FUROSEMIDE 80 MG TAB PO (08:28)
[2017-06-30] MEDS: LIDOCAINE 5% (LIDODERM) PATCH TD (08:29)
[2017-06-30] MEDS: ACETAMINOPHEN TAB 650MG DOSE (2X325MG) PO (08:29)
[2017-06-30] MEDS: MUPIROCIN 2% OINT 22 GM TUBE EXT (08:30)
[2017-06-30] MEDS: EUCERIN 120GM CREAM TOP (08:30)
[2017-06-30] MEDS: HumaLOG INSULIN (NovoLOG) PER UNIT SC (08:30)
[2017-06-30] MEDS ORDERED: FUROSEMIDE 80 MG TAB PO (09:00)
== END 2017-06-30 11:10 | disposition home health service (06) | DRG 379 ==
LOC: M ED INP 06-15 01:11 → M MSPAV 06-21 14:15 → M PCU 06-15 17:11 → M ED 21:05
PROC: 0DBK8ZX Excision of Ascending Colon, Via Natural or Artificial Opening Endoscopic, Diagnostic (ICD-10-PCS; principal; 2017-06-17 14:35)
PROC: 0DBH8ZZ Excision of Cecum, Via Natural or Artificial Opening Endoscopic (ICD-10-PCS; 2017-06-17 14:35)
PROC: 0DBN8ZX Excision of Sigmoid Colon, Via Natural or Artificial Opening Endoscopic, Diagnostic (ICD-10-PCS; 2017-06-17 14:35)
PROC: 0DBM8ZX Excision of Descending Colon, Via Natural or Artificial Opening Endoscopic, Diagnostic (ICD-10-PCS; 2017-06-17 14:35)
PROC: 0DBL8ZX Excision of Transverse Colon, Via Natural or Artificial Opening Endoscopic, Diagnostic (ICD-10-PCS; 2017-06-17 14:35)
PROC: 0W3P8ZZ Control Bleeding in Gastrointestinal Tract, Via Natural or Artificial Opening Endoscopic (ICD-10-PCS; 2017-06-17 15:22)
PROC: 30253N1 (ICD-10-PCS; 2017-06-17 15:22)
DX: K92.2 Gastrointestinal hemorrhage, unspecified (principal); I12.9 Hypertensive chronic kidney disease with stage 1 through stage 4 chronic kidney disease, or unspecified chronic kidney disease; I25.10 Atherosclerotic heart disease of native coronary artery without angina pectoris; I25.2 Old myocardial infarction; E03.9 Hypothyroidism, unspecified; E11.22 Type 2 diabetes mellitus with diabetic chronic kidney disease; M10.9 Gout, unspecified; N18.3 Chronic kidney disease, stage 3 (moderate); E78.5 Hyperlipidemia, unspecified; K21.9 Gastro-esophageal reflux disease without esophagitis; M54.5 Low back pain; K59.00 Constipation, unspecified; I48.91 Unspecified atrial fibrillation; H40.9 Unspecified glaucoma; M48.02 Spinal stenosis, cervical region; G58.8 Other specified mononeuropathies; K64.8 Other hemorrhoids; D12.2 Benign neoplasm of ascending colon; D12.0 Benign neoplasm of cecum; D12.4 Benign neoplasm of descending colon; K57.30 Diverticulosis of large intestine without perforation or abscess without bleeding; E87.70 Fluid overload, unspecified; D12.5 Benign neoplasm of sigmoid colon; D12.3 Benign neoplasm of transverse colon; K91.840 Postprocedural hemorrhage of a digestive system organ or structure following a digestive system procedure; R07.89 Other chest pain; Z85.528 Personal history of other malignant neoplasm of kidney; Z95.5 Presence of coronary angioplasty implant and graft; Z79.82 Long term (current) use of aspirin; Z79.4 Long term (current) use of insulin; Z88.0 Allergy status to penicillin; Z79.899 Other long term (current) drug therapy; Z79.01 Long term (current) use of anticoagulants; Z88.2 Allergy status to sulfonamides; Z91.041 Radiographic dye allergy status; Z88.1 Allergy status to other antibiotic agents; Z88.8 Allergy status to other drugs, medicaments and biological substances

== ENCOUNTER → 2017-07-02 | Outpatient (CLI) | payer OTHER | LOC: M WUC 17:28 | DX: J20.9 Acute bronchitis, unspecified (principal) | CPT/HCPCS: 71046 ==

== ENCOUNTER → 2017-07-27 | Outpatient (REF) | payer OTHER ==
[2017-07-27 18:33] LABS: TOTAL PROTEIN 5.8 GM/DL (6.4-8.2)
[2017-07-27 18:41] LABS: URINE TOTAL PROTEIN 259.4 MG/DL (0-12)
[2017-07-28 12:45] LABS: ALBUMIN 2.93 GM/DL (3.29-5.55); ALBUMIN % 50.6 % (55.8-66.1); ALPHA-1-GLOBULIN % 5.7 % (2.9-4.9); ALPHA-1-GLOBULINS 0.33 GM/DL (0.17-0.41); ALPHA-2-GLOBULINS % 18.2 % (7.1-11.8); BETA-1-GLOBULINS % 7.5 % (4.7-7.2); BETA-2-GLOBULINS % 6.6 % (3.2-6.5); GAMMA GLOBULIN % 11.4 % (11.1-18.8)
[2017-07-28 12:46] LABS: ALPHA-2-GLOBULINS 1.06 GM/DL (0.42-0.99); BETA-1-GLOBULINS 0.44 GM/DL (0.28-0.60); BETA-2-GLOBULINS 0.38 GM/DL (0.19-0.55); GAMMA GLOBULINS 0.66 GM/DL (0.65-1.58)
[2017-07-30 00:08] LABS: FREE KAPPA LIGHT CHAINS SERUM 41.7 mg/L (3.3-19.4); FREE LAMBDA LIGHT CHAINS SERUM 27.3 mg/L (5.7-26.3); KAPPA/LAMBDA RATIO SERUM 1.53 (0.26-1.65)
== END ==
LOC: M LAB REF 16:55
DX: R80.9 Proteinuria, unspecified (principal)
CPT/HCPCS: 84165

== ENCOUNTER → 2017-10-11 | Outpatient (CLI) | payer OTHER ==
[2017-10-11 17:26] LABS: ALBUMIN 2.9 GM/DL (3.2-5.2); ANION GAP 9 MEQ/L (8-16); BLOOD UREA NITROGEN 52 MG/DL (7-18); CALCIUM LEVEL 9.4 MG/DL (8.8-10.2); CARBON DIOXIDE LEVEL 30 MEQ/L (21-32); CHLORIDE LEVEL 106 MEQ/L (98-107); GLUCOSE, FASTING 191 MG/DL (70-100); MAGNESIUM LEVEL 2.1 MG/DL (1.8-2.4); PHOSPHORUS LEVEL 3.8 MG/DL (2.5-4.9); POTASSIUM SERUM 3.7 MEQ/L (3.5-5.1); SODIUM LEVEL 145 MEQ/L (136-145)
== END ==
LOC: M WUC 15:04
DX: I50.32 Chronic diastolic (congestive) heart failure (principal)
CPT/HCPCS: 83735

== ENCOUNTER → 2017-10-15 | Outpatient (CLI) | payer OTHER ==
[2017-10-15 19:57] LABS: ALBUMIN 2.8 GM/DL (3.2-5.2); ANION GAP 9 MEQ/L (8-16); BLOOD UREA NITROGEN 50 MG/DL (7-18); CALCIUM LEVEL 9.2 MG/DL (8.8-10.2); CARBON DIOXIDE LEVEL 28 MEQ/L (21-32); CHLORIDE LEVEL 107 MEQ/L (98-107); CREATININE FOR GFR 1.95 MG/DL (0.70-1.30); GLUCOSE, FASTING 194 MG/DL (70-100); PHOSPHORUS LEVEL 2.8 MG/DL (2.5-4.9); POTASSIUM SERUM 4.1 MEQ/L (3.5-5.1); SODIUM LEVEL 144 MEQ/L (136-145)
== END ==
LOC: M WUC 15:50
DX: I50.32 Chronic diastolic (congestive) heart failure (principal)
CPT/HCPCS: 80069

== ENCOUNTER → 2018-01-26 | Outpatient (CLI) | payer OTHER, MEDICARE | LOC: M RAD 14:45 | DX: N18.3 Chronic kidney disease, stage 3 (moderate) (principal); E11.22 Type 2 diabetes mellitus with diabetic chronic kidney disease; Z90.5 Acquired absence of kidney; N28.1 Cyst of kidney, acquired | CPT/HCPCS: 76775 ==

== ENCOUNTER → 2018-02-08 | Outpatient (REF) | payer OTHER | LOC: M LAB REF 18:16 | DX: E03.9 Hypothyroidism, unspecified (principal) | CPT/HCPCS: 84443 ==

== ENCOUNTER 2018-02-26 09:55 | Emergency (ER) | payer OTHER ==
[2018-02-26 10:25] LABS: BEDSIDE GLUCOSE 97 MG/DL (83-110)
[2018-02-26] MEDS: METOPROLOL SUCC (TopROL XL) 50MG **XL** TAB PO (10:45)
[2018-02-26 10:47] LABS: BASO % 0.5 % (0.0-1.0); EOS # 0.3 10^3/uL (0.0-0.50); EOS % 4.7 % (0.0-3.0); HEMATOCRIT 36.5 % (42.0-52.0); HEMOGLOBIN 11.8 g/dl (13.5-17.5); IMMATURE GRANULOCYTE % 0.5 % (0-3.0); LYMPH # 1.6 10^3/uL (1.5-4.5); LYMPH % 25.9 % (24.0-44.0); MEAN CORPUSCULAR HEMOGLOBIN 29.6 pg (27.0-33.0); MEAN CORPUSCULAR HGB CONC 32.3 g/dl (32.0-36.5); MEAN CORPUSCULAR VOLUME 91.7 fl (80.0-96.0); MONO # 0.5 10^3/uL (0.0-0.8); MONO % 8.5 % (0.0-5.0); NEUTROPHILS # 3.6 10^3/uL (1.8-7.7); NEUTROPHILS % 59.9 % (36.0-66.0); PLATELET COUNT, AUTOMATED 179 10^3/uL (150-450); RED BLOOD COUNT 3.98 10^6/uL (4.30-6.10)
[2018-02-26 11:03] LABS: INR 1.37; PROTHROMBIN TIME 17.1 SECONDS (12.1-14.4)
[2018-02-26 11:04] LABS: PARTIAL THROMBOPLASTIN TIME 31.5 SECONDS (25.4-37.6)
[2018-02-26 11:10] LABS: ANION GAP 9 MEQ/L (8-16); BLOOD UREA NITROGEN 47 MG/DL (7-18); CALCIUM LEVEL 8.8 MG/DL (8.8-10.2); CARBON DIOXIDE LEVEL 26 MEQ/L (21-32); CHLORIDE LEVEL 109 MEQ/L (98-107); CREATININE FOR GFR 2.23 MG/DL (0.70-1.30); GLOMERULAR FILTRATION RATE 30.8 (>42); GLUCOSE, FASTING 113 MG/DL (70-100); POTASSIUM SERUM 4.9 MEQ/L (3.5-5.1); SODIUM LEVEL 144 MEQ/L (136-145)
== END 2018-02-26 11:30 | disposition short-term general hospital (02) ==
LOC: M ED 09:55
DX: D68.32 Hemorrhagic disorder due to extrinsic circulating anticoagulants (principal); K91.840 Postprocedural hemorrhage of a digestive system organ or structure following a digestive system procedure; I10 Essential (primary) hypertension; I48.91 Unspecified atrial fibrillation; I25.10 Atherosclerotic heart disease of native coronary artery without angina pectoris; I50.9 Heart failure, unspecified; I25.2 Old myocardial infarction; K21.9 Gastro-esophageal reflux disease without esophagitis; M89.29 Other disorders of bone development and growth, multiple sites; M54.9 Dorsalgia, unspecified; M48.02 Spinal stenosis, cervical region; H40.9 Unspecified glaucoma; Z85.528 Personal history of other malignant neoplasm of kidney; Z79.82 Long term (current) use of aspirin; Z79.4 Long term (current) use of insulin; Z79.899 Other long term (current) drug therapy; Z88.0 Allergy status to penicillin; Z88.1 Allergy status to other antibiotic agents; Z88.2 Allergy status to sulfonamides; Z88.8 Allergy status to other drugs, medicaments and biological substances; Z91.041 Radiographic dye allergy status
CPT/HCPCS: 93005

== ENCOUNTER → 2018-06-17 | Outpatient (CLI) | payer OTHER ==
[~2018-06-17] MED LIST changes: -/ESOM40CA; -/GLIM4TA; +AMAR1TAB6; -ASPI1TAB PO; +ASPI81TA26 PO; +ASPI81TAEC PO; +CIPR-249 PO; -DRIS50002 PO; +DRIS50003 PO; +FURO20TA2 PO; +FURO40TA2 PO; +FURO80TA2 PO; +HYDR-3715 PO; +ISOS20TA PO; +KLOR10TA76 PO; +LACT10SO3 PO; -LASI80TA PO; +LASI80TA3 PO; +LEVA250T13 PO; +METO1TAB7; +METO1TAB87 PO; +MIRA33504 PO; +MUPI2OI EXT; -NAPR250T45 PO; +NAPR250T82 PO; +NEXI1CAP3; +NORV5TAB PO; +PEG1POW PO; +PERC5TAB12 PO; +PERCOCET PO; -POTA10CA PO; +XARE10TA PO; -ZYLO300T4 PO; +ZYLO300T6 PO
--- NOTE | 2018-06-17 16:24 | REP ---
Clinical: Acute pharyngitis and chest pain . Comparison: 11/09/2017 . Technique: PA and lateral. Findings: The mediastinum and cardiac silhouette are normal. Evidence of prior sternotomy and CABG. The lung davis are clear and without acute consolidation, effusion, or pneumothorax. The skeletal structures are intact and normal. Impression: 1. No acute cardiopulmonary process. Electronically Signed by Alex Parisi MD 06/17/2018 04:15 P
== END ==
LOC: M RAD 15:55
PROVIDERS: ATTEND Internal Medicine Nephrology
DX: N18.4 Chronic kidney disease, stage 4 (severe) (principal); E11.22 Type 2 diabetes mellitus with diabetic chronic kidney disease; J00 Acute nasopharyngitis [common cold]

== ENCOUNTER → 2018-07-18 | Outpatient (CLI) | payer MEDICARE ==
[~2018-07-18] MED LIST changes: +AMIL5TAB4 PO; +BASA100I SC; -CINA30TA PO; +CINA30TA4 PO; +COLA100C5 PO; +GLIP-162 PO; +LEVO88TA3 PO; -METO1TAB7; +METO1TAB7 PO; +MIRA3350 PO
--- NOTE | 2018-07-19 08:44 | REP ---
Bilateral upper extremity arterial and venous Doppler ultrasound: History: Chronic kidney disease stage IV, diabetes, vein mapping study. Findings: There is no evidence of venous thrombosis in either upper extremity. However, it should be noted that neither cephalic vein was visualized by ultrasound. Question developmental absence versus less likely old thrombosis. Right upper extremity basilic vein diameter chart: Upper humerus 6.4 mm Lower humerus 5.2 mm Upper forearm 1.6 mm Lower forearm 0.3 mm Median cubital 4.6 mm Left upper extremity basilic vein diameter chart: Upper humerus 6 mm Lower humerus 3.8 mm Upper forearm 1.8 mm Lower forearm 0.6 mm Median cubital not visualized Right upper extremity arterial Doppler velocity and diameter chart: Axillary artery 84 cm/S, 7.1 mm Brachial artery 128 cm/S, 5.4 mm Radial artery 93 cm/S, 2.9 mm Ulnar artery 52 cm/S, 3.2 mm Left upper extremity arterial Doppler velocity and diameter chart: Axillary artery 80 cm/S, 7.4 mm Brachial artery 127 cm/S, 4.3 mm Radial artery 57 cm/S, 1.7 mm Ulnar artery 81 cm/S, 3.3 mm. Electronically Signed by Tod Chen MD 07/19/2018 08:36 A
== END ==
LOC: M RAD 13:17
PROVIDERS: ATTEND Internal Medicine Nephrology
DX: N18.4 Chronic kidney disease, stage 4 (severe) (principal); R60.0 Localized edema; E11.22 Type 2 diabetes mellitus with diabetic chronic kidney disease

== ENCOUNTER 2018-07-19 15:54 | Inpatient (IN) | payer MEDICARE ==
[~2018-07-19] VITALS: Ht 185.4 cm; Wt 87.3 kg
[~2018-07-19 15:54] MED LIST changes: -AMIL5TAB4 PO; -BASA100I SC; -COLA100C5 PO; -GLIP-162 PO; -LEVO88TA3 PO; -MIRA3350 PO
[2018-07-19 16:38] LABS: BASO % 0.7 % (0.0-1.0); EOS # 0.2 10^3/uL (0.0-0.50); EOS % 3.5 % (0.0-3.0); HEMATOCRIT 38.4 % (42.0-52.0); HEMOGLOBIN 12.4 g/dl (13.5-17.5); LYMPH # 1.2 10^3/uL (1.5-4.5); LYMPH % 20.8 % (24.0-44.0); MEAN CORPUSCULAR HEMOGLOBIN 28.9 pg (27.0-33.0); MEAN CORPUSCULAR HGB CONC 32.3 g/dl (32.0-36.5); MEAN CORPUSCULAR VOLUME 89.5 fl (80.0-96.0); MONO # 0.5 10^3/uL (0.0-0.8); MONO % 8.3 % (0.0-5.0); NEUTROPHILS # 3.8 10^3/uL (1.8-7.7); NEUTROPHILS % 66.3 % (36.0-66.0); PLATELET COUNT, AUTOMATED 185 10^3/uL (150-450); RED BLOOD COUNT 4.29 10^6/uL (4.30-6.10); WHITE BLOOD COUNT 5.7 10^3/uL (4.0-10.0)
--- NOTE | 2018-07-19 17:06 | REP ---
Portable chest x-ray: Single view. History: Chest pain. Comparison chest x-ray: June 17, 2018. Findings: EKG monitoring electrodes overlie the chest. The patient is status post prior median sternotomy and there are clips in the upper abdomen bilaterally as well along the left mediastinum. There is slight blunting of the pleural angles bilaterally which is a new finding compared to the prior study. Pulmonary vasculature is cephalized. No visible pulmonary edema or focal infiltrate. Impression: New slight blunting of bilateral pleural angles. Pulmonary vascular cephalization. Prior sternotomy. Heart is not felt to be enlarged. Electronically Signed by Tod Chen MD 07/19/2018 04:58 P
[2018-07-19] MEDS ORDERED: NITR4TASL SL (17:14)
[2018-07-19] MEDS ORDERED: GLIP-162 PO (17:14)
[2018-07-19] MEDS ORDERED: FURO80TA2 PO (17:14)
[2018-07-19] MEDS ORDERED: MIRA3350 PO (17:14)
[2018-07-19] MEDS ORDERED: BASA100I SC (17:14)
[2018-07-19] MEDS ORDERED: LEVO88TA3 PO (17:14)
[2018-07-19] MEDS ORDERED: LACT10SO3 PO ×2 (17:14)
[2018-07-19] MEDS ORDERED: ISOS10TAB PO (17:14)
[2018-07-19] MEDS ORDERED: COLA100C5 PO (17:17)
[2018-07-19] MEDS ORDERED: AMIL5TAB4 PO (17:18)
[2018-07-19 17:25] LABS: CALCIUM LEVEL 9.1 MG/DL (8.8-10.2); CREATININE FOR GFR 2.98 MG/DL (0.70-1.30); MB/CK RELATIVE INDEX 2.07 (< OR =4); POTASSIUM SERUM 3.7 MEQ/L (3.5-5.1); TROPONIN I 0.03 NG/ML (< 0.10)
[2018-07-19] MEDS ORDERED: FUROSEMIDE 100 MG/10 ML VIAL (J1940) IV ONE (17:30)
[2018-07-19] MEDS ORDERED: NITROGLYCERIN 0.4 MG SUBL TABLET SL PRN (17:45)
[2018-07-19] MEDS ORDERED: DEXTROSE 50% 50 ML SYRINGE IV PRN (17:45)
[2018-07-19] MEDS ORDERED: GLUCAGON FOR INJ 1 MG VIAL (J1610) SC PRN (17:45)
[2018-07-19] MEDS ORDERED: GLUCOSE 4 GM CHEW TABLET PO PRN (17:45)
--- NOTE | 2018-07-19 18:01 | HPEPDOC ---
General Date of Admission Attending Physician: DINH RICH MD Chief Complaint The patient is a 73-year-old male admitted with a reason for visit of CHF. Source: Patient Exam Limitations: No limitations Timing/Duration: Week(s) (3) Severity: Moderate Associated Symptoms: Chest Pain, Rash, Shortness of breath, Weakness History of Present Illness Patient is a 73-year-old male, past medical history significant for CAD status post quadruple bypass 2006, diabetes mellitus type 2, chronic diastolic heart failure, hypertension, chronic atrial fibrillation, presenting to the hospital on account of worsening congestion, shortness of breath, hypertensive emergency. Patient had seen his graduate engineer. 3 weeks prior, and had been started on minoxidil for uncontrolled hypertension. On initiation of therapy he began to notice fluid retention. Initially fluid was accumulating to his bilateral lower extremity. The patient states this progressed to marked orthopnea with shortness of breath in supine position. On follow-up today at graduate engineer. He was referred to the emergency room due to marked volume overload and weight gain of 13 pounds. On presentation to the emergency room, patient had systolic blood pressure markedly elevated at 214. 12-lead EKG showed atrial fibrillation at 71 bpm, clinical exam showed significant volume overload with a significant edema to abdomen. 80 mg IV Lasix was ordered for administration and hospitalist team was called for admission for further evaluation and management. On assessment. Patient also complains of chest pain which occurred at 4 AM today and improved only when he sat up in a chair. He describes chest pain as intermittent pressure and fullness to his left chest. He also reports he had cardiac evaluation a few weeks ago and at that time was told everything was okay. The call was placed to patient's sanitation director's who confirms patient had cardiac evaluation December 2017 including a myocardial perfusion imaging study which was negative for inducible ischemia. Home Medications Scheduled Allopurinol (Zyloprim) 300 Mg Tab, 300 MG PO DAILY, (Reported) Amiloride HCl (Amiloride HCl) 5 Mg Tablet, 5 MG PO DAILY, (Reported) Aspirin (Aspirin EC) 81 Mg Tabec, 81 MG PO DAILY, (Reported) Atorvastatin Calcium (Atorvastatin Calcium) 40 Mg Tab, 40 MG PO QHS, (Reported) Ergocalciferol (Vitamin D2) (Drisdol) 50,000 Unit Cap, 50,000 UNIT PO 1XWK, (Reported) PT NEEDS NEW SCRIPT Furosemide (Furosemide) 80 Mg Tab, 80 MG PO QAM, (Reported) Furosemide (Furosemide) 80 Mg Tablet, 40 MG PO QPM, (Reported) Glipizide (Glipizide Xl) 5 Mg Tab.er.24, 5 MG PO DAILY, (Reported) Insulin Aspart (Novolog Flexpen) 100 Unit/Ml Inj, 0 SC AC, (Reported) PER SLIDING SCALE Insulin Glargine,Hum.rec.anlog (Basaglar Kwikpen U-100) 100 Unit/1 Ml Insuln.pen, 20 UNIT SC QHS, (Reported) Isosorbide Mononitrate (Isosorbide Mononitrate) 10 Mg Tablet, 10 MG PO TID, (Reported) Lactulose (Lactulose) 10 Gm/15 Ml Solution, 30 GM PO DAILY, (Reported) Latanoprost (Xalatan) 0.005 % Zena, 1 DROP OU QHS, (Reported) Levothyroxine Sodium (Levothyroxine Sodium) 88 Mcg Tablet, 88 MCG PO DAILY, (Reported) Metoprolol Succinate (Metoprolol Succinate) 50 Mg Tab, 50 MG PO DAILY, (Reported) Multivitamins (Thera M Plus Tablet) 1 Tab Tab, 1 TAB PO DAILY, (Reported) Polyethylene Glycol 3350 (Miralax) 119 Gm Powder, 17 GM PO DAILY, (Reported) Potassium Chloride (Klor-Con M10) 10 Meq Tabcr, 10 MEQ PO BID, (Reported) Rivaroxaban (Xarelto) 10 Mg Tab, 10 MG PO QPM, (Reported) TAKES WITH DINNER Scheduled PRN Docusate Sodium (Colace) 100 Mg Capsule, 100 MG PO BID PRN for CONSTIPATION, (Reported) Lactulose (Lactulose) 10 Gm/15 Ml Solution, 30 GM PO BID PRN for CONSTIPATION, (Reported) Lidocaine (Lidoderm) 5 % Dis, 1 PATCH TD DAILY PRN for PAIN, (Reported) APPLY TO LOWER BACK Nitroglycerin (Nitrostat) 0.4 Mg Tab.subl, 0.4 MG SL NITRO PRN for CHEST PAIN, (Reported) Allergies Coded Allergies: Penicillins (Verified Allergy, Unknown, rash/itching, 07/19/18) Sulfa (Sulfonamide Antibiotics) (Verified Allergy, Unknown, unknown, 07/19/18) amlodipine (Verified Allergy, Unknown, unknown, 07/19/18) cephalexin (Unverified Allergy, Unknown, 07/19/18) erythromycin base (Verified Allergy, Unknown, unknown, 07/19/18) hydralazine (Unverified Allergy, Unknown, 07/19/18) minoxidil (Unverified Allergy, Unknown, SWELLING, 07/19/18) tetracycline (Verified Allergy, Unknown, unknown, 07/19/18) Contrast Media (Verified Adverse Reaction, Intermediate, MADE LEG TURN RED, 02/26/18) carvedilol (Verified Adverse Reaction, Unknown, unknown, 07/19/18) Past Medical History Medical History Hypertension CAD S/P CABG 2006 Chronic diastolic heart failure CKD 4 Renal cancer Chronic atrial fibrillation Hypothyroidism Cervical spine stenosis GERD Type 2 diabetes mellitus Surgical History Left nephrectomy CABG Family History Father: Gastric cancer Social History * Smoker: Denies Alcohol: Denies Drugs: denies A-FIB/CHADSVASC A-FIB History Current/History of A-Fib/PAF?: Yes Current Oral Anticoagulant The: Yes Treatment Treatment ordered: Rivaroxaban Review of Systems Other systems Pertinent 10 point review of systems is completed, negative except as stated in history of present illness Physical Examination Other physical findings GENERAL: NAD SKIN : Warm, stasis ulcers with erythema to left kidd HEENT: Atraumatic, normocephalic, PERRL, moist mucous membrane CV: irregular rate and rhythm, no JVD, BLE 3+ edema, distal pulses not palpable RESP: CTAB, no accessory muscle use noted ABDOMEN: BS+, non distended non tender MS: no joint deformities NEURO: Alert and oriented x 3, CN2-12 grossly intact PSYCH: no anxiety or agitation, appropriate mood and affect. Vital Signs Vital Signs Date Time Temp Pulse Resp B/P (MAP) Pulse Ox O2 Delivery O2 Flow Rate FiO2 07/19/18 16:58 07/19/18 15:55 97.1 75 17 98 Room Air Laboratory Data Labs 24H Laboratory Tests 2 07/19/18 16:27: Immature Granulocyte % (Auto) 0.4, White Blood Count 5.7, Red Blood Count 4.29L, Hemoglobin 12.4L, Hematocrit 38.4L, Mean Corpuscular Volume 89.5, Mean Corpuscular Hemoglobin 28.9, Mean Corpuscular Hemoglobin Concent 32.3, Red Cell Distribution Width 15.5H, Platelet Count 185, Neutrophils (%) (Auto) 66.3H, Lymphocytes (%) (Auto) 20.8L, Monocytes (%) (Auto) 8.3H, Eosinophils (%) (Auto) 3.5H, Basophils (%) (Auto) 0.7, Neutrophils # (Auto) 3.8, Lymphocytes # (Auto) 1.2L, Monocytes # (Auto) 0.5, Eosinophils # (Auto) 0.2, Basophils # (Auto) 0.0, Nucleated Red Blood Cells % (auto) 0.0, Anion Gap 8, Glomerular Filtration Rate 22.0L, Blood Urea Nitrogen 53H, Creatinine 2.98H, Sodium Level 144, Potassium Level 3.7, Chloride Level 111H, Carbon Dioxide Level 25, Calcium Level 9.1, Total Creatine Kinase 87, Creatine Kinase MB 2.0, Creatine Kinase MB Relative Index 2.07, Troponin I 0.03 CBC/BMP Laboratory Tests 07/19/18 16:27 Red Blood Count 4.29 L, Mean Corpuscular Volume 89.5, Mean Corpuscular Hemoglobin 28.9, Mean Corpuscular Hemoglobin Concent 32.3, Red Cell Distribution Width 15.5 H, Neutrophils (%) (Auto) 66.3 H, Lymphocytes (%) (Auto) 20.8 L, Mon ocytes (%) (Auto) 8.3 H, Eosinophils (%) (Auto) 3.5 H, Basophils (%) (Auto) 0.7, Neutrophils # (Auto) 3.8, Lymphocytes # (Auto) 1.2 L, Monocytes # (Auto) 0.5, Eosinophils # (Auto) 0.2, Basophils # (Auto) 0.0, Calcium Level 9.1, Total Creatine Kinase 87 Assessment/Plan Acute on chronic diastolic heart failure -Diuresis and volume management per nephrology team. Given underlying significant chronic kidney disease -Volume restriction 1200 mL daily -Daily weights, monitoring response therapy -Monitor electrolytes to keep potassium greater than 4 and magnesium greater than 2 -Discussed with cardiology and nephrology respectively -Appreciate input and await recommendations CAD with angina -Cardiac biomarker troponin negative -Patient could have chest pain from coronary spasm with elevated blood pressure -Cardiac evaluation completed December 2017 negative for inducible ischemia -Cardiology has been consulted for input -Continue the CAD risk factor modifications. Aspirin, beta david, statin Hypertensive emergency -Recently started on minoxidil with adverse effects of volume retention and acute hyperkalemia -Nephrology on board, further recommendations for management of blood pressure Chronic kidney disease stage IV -avoid nephrotoxic medications -Renal diet -Nephrology has been consulted and follow recommendations Chronic atrial fibrillation -With high embolic score -Continue anticoagulation therapy with Xarelto -Rate control with Metoprolol succinate Type 2 diabetes mellitus -Diabetic diet -Fingerstick checks prior to meals and at bedtime -Coverage with insulin per sliding scale protocol -Continue glipizide DVT/GI prophylaxis -Fully anticoagulated -Proton pump inhibitor Plan / VTE VTE Prophylaxis Ordered?: Yes LUH YU July 19, 2018 18:01
[2018-07-19] MEDS: RIVAROXABAN 10 MG TAB (XARELTO) PO SCH (18:29)
[2018-07-19] MEDS: HumaLOG INSULIN (NovoLOG) PER UNIT SC SCH ×2 (18:35→21:58)
--- NOTE | 2018-07-19 19:52 | ECGEPIP ---
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
[2018-07-19 21:00] VITALS: BP 210/110
[2018-07-19] MEDS ORDERED: ISOSORBIDE MONONITRATE 10MG TABLET PO SCH (21:00)
[2018-07-19] MEDS: **NOTE PATIENT COMMENT** MISC XX SCH (21:00)
[2018-07-19] MEDS ORDERED: FUROSEMIDE 40 MG/4 ML VIAL (J1940) IV STA (21:34)
--- NOTE | 2018-07-19 21:43 | TRANSCARE ---
Transition of Care: Transition of Care Was contacted by nursing that pt's BP is 210/110 with leg edema. Pt was admitted with diagnosis of acute on chronic HF with CKD stage 4. Received 1 time dose of 80mg IV lasix in ER with IV 40mg BID scheduled now. Pt also has mild bradycardia at 53 with Hx of A. fib on Metoprolol scheduled in the morning. One time dose of 40mg IV Lasix stat, trop, and d-dimer stat ordered. Pt complains of headache and chest pressure which has been present since admission; no other neurological signs. Cont to monitor the pt and follow up BP. Reduce BP no less than 158/83 in 1 hour. Was notified that pt's BP decreased to the 178/96 but increased back to the 190s with little urine output. Bladder scan revealed minimal urine after voiding. CXR ordered and there was some question whether pt has cardiomegaly compared to prior X ray thus discussed with attending again; CXR reading showed mild pulm edema and pleural effusion. Pt reported chest pain in left sided chest radiating to left neck but unable to describe the quality; non-reproducible chest pain upon palpation. Troponin unremarkable compared to prior with mildly increased d-dimer compared to June 2018 value. Pt reported having a headache he never had before, no focal neurological signs and head CT w/o contrast unremarkable for acute changes. Pt likely has diuretic resistance d/t nephrotic disease however cannot r/o ureter/nephro obstruction; microalbumin urine ordered. Pt may receive sublingual nitroglycerin PRN as it does not lower the heart rate. GME ATTESTATION GME ATTESTATION My faculty preceptor for this patient encounter was physically present during the encounter and was fully available. All aspects of the patient interview, examination, medical decision making process, and medical care plan development were reviewed and approved by the faculty preceptor. The faculty preceptor is aware and concurs with the plan as stated in the body of this note and will attest to such by his/her cosignature. DIOGO AMADOR DO July 19, 2018 21:43
[2018-07-19] MEDS ORDERED: TOPIRAMATE (TopAMAX) 25 MG TAB PO ONE (21:45)
[2018-07-19] MEDS: ATORVASTATIN 20 MG TAB PO SCH (22:29)
[2018-07-19] MEDS: LATANOPROST 0.005% OPHTH SOLN 2.5 ML OU SCH (22:31)
[2018-07-19 23:16] LABS: MAGNESIUM LEVEL 2.6 MG/DL (1.8-2.4); TROPONIN I 0.02 NG/ML (< 0.10)
[2018-07-19 23:27] VITALS: BP 178/76
[2018-07-20] MEDS ORDERED: POTASSIUM CHLORIDE 10 MEQ SR TABLET PO ONE (01:45)
[2018-07-20] MEDS ORDERED: ALPRAZolam 0.25 MG TAB PO ONE (02:30)
--- NOTE | 2018-07-20 02:52 | REP ---
Clinical: Pulmonary edema. Comparison: 07/19/2018. Findings: Small pleural effusions (left greater than right) along with mild cephalization and interstitial edema. Associated left basilar atelectasis suggested. Mediastinum and cardiac silhouette are stable. No pneumothorax. Skeletal structures intact. Impression: Mild pulmonary edema with small effusions and left lower lobe atelectasis. Electronically Signed by Alex Parisi MD 07/20/2018 02:45 A
[2018-07-20] MEDS ORDERED: MORPHINE 4 MG/ML 1ML VIAL/SYRINGE (J2270) IV ONE (03:00)
[2018-07-20 03:13] LABS: HEMOGLOBIN 11.6 g/dl (13.5-17.5); MEAN CORPUSCULAR HEMOGLOBIN 28.9 pg (27.0-33.0); MEAN CORPUSCULAR HGB CONC 32.2 g/dl (32.0-36.5); MEAN CORPUSCULAR VOLUME 89.6 fl (80.0-96.0); PLATELET COUNT, AUTOMATED 165 10^3/uL (150-450); RED BLOOD COUNT 4.02 10^6/uL (4.30-6.10); WHITE BLOOD COUNT 5.3 10^3/uL (4.0-10.0)
[2018-07-20 03:47] LABS: ALBUMIN 2.5 GM/DL (3.2-5.2); BILIRUBIN,TOTAL 0.4 MG/DL (0.2-1.0); CALCIUM LEVEL 9.1 MG/DL (8.8-10.2); CREATININE FOR GFR 2.95 MG/DL (0.70-1.30); GLOMERULAR FILTRATION RATE 22.3 (>42); TOTAL PROTEIN 5.9 GM/DL (6.4-8.2); TROPONIN I 0.02 NG/ML (< 0.10)
[2018-07-20 04:00] VITALS: BP 198/102
--- NOTE | 2018-07-20 04:18 | REPVR ---
EXAM: CT Head Without Contrast EXAM DATE/TIME: 07/20/2018 3:07 AM CLINICAL HISTORY: 73 years old, male; Signs and symptoms; Other: RO bleed; Additional info: R/O hemorrhagic stroke TECHNIQUE: Imaging protocol: Axial computed tomography images of the head/brain without contrast. Radiation optimization: All CT scans at this facility use at least one of these dose optimization techniques: automated exposure control; mA and/or kV adjustment per patient size (includes targeted exams where dose is matched to clinical indication); or iterative reconstruction. COMPARISON: CT Head without contrast 06/30/2016 11:15 AM FINDINGS: Brain: There is moderate, diffuse parenchymal volume loss. There is moderate diffuse heterogeneity of the white matter attenuation, consistent with chronic white matter ischemic changes. This is most prominent in the bilateral parietal white matter and has progressed slightly compared to the prior exam. There is a stable small focus of low attenuation in the right side of the thalamus, consistent with a chronic lacunar infarct. A small focal area of low attenuation in the left basal ganglia was not seen on the prior exam but is very low in density, and likely a chronic lacunar infarct.There is no evidence of intracranial hemorrhage. The cortical/white matter interfaces are preserved throughout the brain. Ventricles: The ventricular system demonstrates moderate diffuse compensatory enlargement. Bones/joints: No acute fractures of the skull are identified. Sinuses: The visualized paranasal sinuses are clear. Mastoid air cells: The visualized mastoid air cells are clear. Soft tissues: Unremarkable. Vasculature: Atherosclerotic calcifications are seen in the cerebral arteries at the skull base. IMPRESSION: 1. No evidence of acute infarct or acute intracranial hemorrhage. 2. Chronic lacunar infarcts and white matter changes most consistent with chronic small vessel ischemic disease, with mild progression compared to 2017. ASPECTS ([place] Stroke Program Early CT Score) = 10, normal. Electronically signed by: Jeanette Brooks On 07/20/2018 04:17:38 AM
[2018-07-20] MEDS ORDERED: FUROSEMIDE 100 MG/10 ML VIAL (J1940) IV SCH (06:00)
[2018-07-20] MEDS ORDERED: FUROSEMIDE 40 MG/4 ML VIAL (J1940) IV SCH (06:00)
[2018-07-20] MEDS: LEVOTHYROXINE 88MCG TABLET (0.088 MG) PO SCH (06:00)
[2018-07-20 08:00] VITALS: BP 184/92
[2018-07-20] MEDS ORDERED: metOLazone 2.5 MG TAB PO ONE (08:15)
[2018-07-20] MEDS: NITROGLYCERIN 2% OINT 1 GM *U/D* PKT TOP SCH ×4 (08:25→20:46)
[2018-07-20] MEDS: MIRALAX *UNIT DOSE* 17GM PACKET PO SCH (08:26)
[2018-07-20] MEDS: MULTIVITAMINS/MINERALS THERAP 1 TAB PO SCH (08:26)
[2018-07-20] MEDS: HumaLOG INSULIN (NovoLOG) PER UNIT SC SCH ×4 (08:26→21:00)
[2018-07-20] MEDS: glipiZIDE XL 5 MG TABCR PO SCH (08:27)
[2018-07-20] MEDS: ASPIRIN 81 MG ENTERIC TAB PO SCH (08:27)
[2018-07-20] MEDS: ALLOPURINOL 300 MG TAB PO SCH (08:27)
[2018-07-20] MEDS: CARVedilol 6.25 MG TAB PO SCH ×3 (08:38→18:00)
[2018-07-20] MEDS: PRAZOSIN 1 MG CAP PO SCH ×3 (08:38→18:44)
[2018-07-20] MEDS: VITAMIN D 50,000 UNITS CAPSULE (ERGOCALCIFEROL 1.25MG) PO SCH (08:40)
[2018-07-20] MEDS ORDERED: METOPROLOL SUCC (TopROL XL) 50MG **XL** TAB PO SCH (09:00)
[2018-07-20] MEDS: ACETAMINOPHEN TAB 650MG DOSE (2X325MG) PO PRN ×2 (09:04→15:15)
--- NOTE | 2018-07-20 11:23 | IPNPDOC ---
Subjective Date Seen The patient was seen on 07/20/18. Subjective Chief Complaint/HPI Patient is still complaining of bipedal edema General: Denies: ROS Unobtainable, Chills, Night Sweats, Fatigue, Malaise, Nor mal Appetite, Other Symptoms Constitutional: Denies: Chills, Fever, Malaise, Night Sweats, Weakness, Fatigue, Weight Loss, Lethargy, Other Eyes: Denies: Pain, Vision change, Conjunctivae inflammation, Eyelid inflammation, Redness, Other ENT: Denies: Head Aches, Ear Pain, Dysphagia, Sinus Congestion, Post Nasal Drip, Sore Throat, Epistaxis, Other Symptoms Skin: Denies: Rash, Lesions, Jaundice, Bruising, Itching, Dry, Breakdown, Nail Changes, Other Pulmonary: Denies: Dyspnea, Cough, Pleuritic Chest Pain, Other Symptoms Cardiovascular: Reports: Edema; Denies: Chest Pain, Palpitations, Orthopnea, Paroxysmal Noc. Dyspnea, Lt Headedness, Other Symptoms Gastrointestinal: Denies: Nausea, Vomiting, Abdominal Pain, Diarrhea, Constipation, Melena, Hematochezia, Other Symptoms Genitourinary: Denies: Dysuria, Frequency, Incontinence, Hematuria, Retention, Other Symptoms Hematologic: Denies: Bruising, Bleeding Excessively, Petecchia, Purpura, Enlarged Lymph Nodes, Other Hematologic Endocrine: Denies: Polydipsia, Polyphagia, Polyuria, Heat Intolerance, Cold Intolerance, Other Endocrine Sx Musculoskeletal: Reports: Other Symptoms (bipedal edema) Neurological: Denies: Weakness, Numbness, Incoordination, Change in speech, Confusion, Seizures, Other Symptoms Psych: Denies: Mood Normal, Anxiety, Depression, Memory Issues, Thoughts of Self Harm, Anger, Thoughts of Harming Other, Other Psych Objective Physical Examination General Exam: Positive: Alert, Cooperative, No Acute Distress Eye Exam: Positive: PERRLA, Conjunctiva & lids normal ENT Exam: Positive: Atraumatic, Mucous membr. moist/pink Neck Exam: Positive: Supple, JVD, thyromegaly Chest Exam: Positive: Clear to auscultation, Normal air movement Heart Exam: Positive: Rate Normal, Normal S1, Normal S2 Abdomen Exam: Positive: Normal bowel sounds, Tenderness, Hepatospenomegaly Extremity Exam: Positive: Edema (2+ bipedal edema below the both knees) Skin Exam: Positive: Nl turgor and temperature Neuro Exam: Positive: Normal Gait, Normal Speech Psych Exam: Positive: Mental status NL A-FIB/CHADSVASC A-FIB History Current/History of A-Fib/PAF?: Yes Current Oral Anticoagulant The: Yes Assessment /Plan Problems (1) Acute on chronic diastolic CHF (congestive heart failure) Status: Resolved Problem Text: Acute on chronic diastolic heart failure -Diuresis and volume management per nephrology team. Given underlying significant chronic kidney disease -Volume restriction 1200 mL daily -Daily weights, monitoring response therapy -Monitor electrolytes to keep potassium greater than 4 and magnesium greater than 2 -Discussed with cardiology and nephrology respectively . Consults pending -Continue IV diuresis with lasix -I/O -Daily wt (2) Chronic kidney disease (CKD), stage III (moderate) Status: Chronic Problem Text: Chronic kidney disease stage IV -avoid nephrotoxic medications -Renal diet -Nephrology has been consulted and follow recommendations (3) CAD (coronary artery disease) Status: Chronic Problem Text: CAD with angina -Cardiac biomarker troponin negative -Patient could have chest pain from coronary spasm with elevated blood pressure -Cardiac evaluation completed December 2017 negative for inducible ischemia -Cardiology has been consulted for input -Continue the CAD risk factor modifications. Aspirin, beta david, statin (4) Paroxysmal a-fib Status: Chronic Problem Text: Chronic atrial fibrillation -With high embolic score -Continue anticoagulation therapy with Xarelto -Rate control with Metoprolol succinate (5) Diabetes Status: Chronic Problem Text: Type 2 diabetes mellitus -Diabetic diet -Fingerstick checks prior to meals and at bedtime -Coverage with insulin per sliding scale protocol -Continue glipizide Plan/VTE VTE Prophylaxis Ordered?: Yes VS, I&O, 24H, Fishbone Vital Signs/I&O Vital Signs Date Time Temp Pulse Resp B/P (MAP) Pulse Ox O2 Delivery O2 Flow Rate FiO2 07/20/18 08:38 188/92 07/20/18 08:00 98.0 71 18 96 07/19/18 19:45 Room Air I&O- Last 24 Hours up to 6 AM 07/20/18 06:00 Intake Total 840 ml Output Total 1000 ml Balance -160 ml Laboratory Data 24H LABS Laboratory Tests 2 07/19/18 16:27: Immature Granulocyte % (Auto) 0.4, White Blood Count 5.7, Red Blood Count 4.29L, Hemoglobin 12.4L, Hematocrit 38.4L, Mean Corpuscular Volume 89.5, Mean Corpuscular Hemoglobin 28.9, Mean Corpuscular Hemoglobin Concent 32.3, Red Cell Distribution Width 15.5H, Platelet Count 185, Neutrophils (%) (Auto) 66.3H, Lymphocytes (%) (Auto) 20.8L, Monocytes (%) (Auto) 8.3H, Eosinophils (%) (Auto) 3.5H, Basophils (%) (Auto) 0.7, Neutrophils # (Auto) 3.8, Lymphocytes # (Auto) 1.2L, Monocytes # (Auto) 0.5, Eosinophils # (Auto) 0.2, Basophils # (Auto) 0.0, Nucleated Red Blood Cells % (auto) 0.0, Anion Gap 8, Glomerular Filtration Rate 22.0L, Blood Urea Nitrogen 53H, Creatinine 2.98H, Sodium Level 144, Potassium Level 3.7, Chloride Level 111H, Carbon Dioxide Level 25, Calcium Level 9.1, Total Creatine Kinase 87, Creatine Kinase MB 2.0, Creatine Kinase MB Relative Index 2.07, Troponin I 0.03 07/19/18 18:26: Bedside Glucose (Misc Panel) 122H 07/19/18 19:37: Bedside Glucose (Misc Panel) 137H 07/19/18 21:57: Troponin I 0.02#, Bedside Glucose (Misc Panel) 89, Magnesium Level 2.6H 07/20/18 03:07: Nucleated Red Blood Cells % (auto) 0.0, D-Dimer, Quantitative 658.18H, Anion Gap 4L, Glomerular Filtration Rate 22.3L, Blood Urea Nitrogen 51H, Creatinine 2.95H, Sodium Level 142, Potassium Level 4.0, Chloride Level 110H, Carbon Dioxide Level 28, Calcium Level 9.1, Aspartate Amino Transf (AST/SGOT) 14, Alanine Aminotransferase (ALT/SGPT) 16, Alkaline Phosphatase 55, Total Bilirubin 0.4, Total Protein 5.9L, Albumin 2.5L, Troponin I 0.02, WC-Ejt-A-Type Natriuretic Peptide 3283H, Albumin/Globulin Ratio 0.74L CBC/BMP Laboratory Tests 07/19/18 16:27 Red Blood Count 4.29 L, Mean Corpuscular Volume 89.5, Mean Corpuscular Hemoglobin 28.9, Mean Corpuscular Hemoglobin Concent 32.3, Red Cell Distribution Width 15.5 H, Neutrophils (%) (Auto) 66.3 H, Lymphocytes (%) (Auto) 20.8 L, Monocytes (%) (Auto) 8.3 H, Eosinophils (%) (Auto) 3.5 H, Basophils (%) (Auto) 0.7, Neutrophils # (Auto) 3.8, Lymphocytes # (Auto) 1.2 L, Monocytes # (Auto) 0.5, Eosinophils # (Auto) 0.2, Basophils # (Auto) 0.0, Calcium Level 9.1, Total Creatine Kinase 87 07/20/18 03:07 Red Blood Count 4.02 L, Mean Corpuscular Volume 89.6, Mean Corpuscular Hemoglobin 28.9, Mean Corpuscular Hemoglobin Concent 32.2, Red Cell Distribution Width 15.4 H, Calcium Level 9.1, Aspartate Amino Transf (AST/SGOT) 14, Alanine Aminotransferase (ALT/SGPT) 16, Alkaline Phosphatase 55, Total Bilirubin 0.4, Total Protein 5.9 L, Albumin 2.5 L DINH RICH MD July 20, 2018 11:23
[2018-07-20 12:00] VITALS: BP 184/80
[2018-07-20] MEDS: FUROSEMIDE 100 MG/10 ML VIAL (J1940) IV SCH ×2 (12:44→18:45)
--- NOTE | 2018-07-20 13:22 | CR ---
CARDIOLOGY CONSULTATION DATE OF CONSULTATION: 07/20/2018 INDICATION: Acute on chronic congestive heart failure. Chest pain. HISTORY: This is a 73-year-old, , retired resident of [place], with five grown children is well-known to our cardiology practice with ischemic, hypertensive and valvular heart disease complicated by abnormal EKG, chronic atrial fibrillation, and heart failure (diastolic dysfunction). Status post left nephrectomy for renal cancer. He has also advanced renal insufficiency. At the time he was last seen in our office, he was fairly compensated, but over the course of the past week or so at the time of manipulation of his antihypertensive therapy he has gained some 12 pounds with increasing dependent edema, increasing effort dyspnea and orthopnea. Renal function has also deteriorated from values of 1.June to 2.06 March 2018 and 2.98 on admission. He was seen in the nephrology office yesterday and was admitted directly to [facility]. Associated with his effort dyspnea and orthopnea, described a continuous lower chest heaviness/discomfort. The sensation does not vary with respiration, local pressure or arm movements. With his respiratory distress, he has not had much appetite. Associated with his dyspnea, has noticed worsening ease of fatigue, walking only very short distances with his walker prior to stopping. Has noticed an increased awareness of heart action, but denies actual lightheadedness or fall. On oral anticoagulation, has been free of any lateralizing neurological deficit, flank pain, hematuria or blue toe syndrome. No apparent bleeding problems. KNOWN PAST CARDIAC DISEASE/EVENTS/TESTS: 1999 - Onset of intermittent chest pain with cardiac catheterization leading to right coronary artery and circumflex coronary artery stents. June 2006 - Underwent coronary artery bypass graft (CABG) x4 ([facility] (Dr. Noy YOUNG to LAD, SVG to diagonal, PDA and LV branch. June 2009 - Cardiac catheterization showed an elevated left ventricular end-diastolic pressure with preserved systolic function, patency of his four bypass grafts, but a 75% left main stenosis that was successfully stented. 08/01/2009 - Last cardiac catheterization, [facility] - LVEF 50%, LVEDP 16 mmHg, patent bypass grafts with patent left main and circumflex stents. His chest discomfort at that time was believed to be noncardiogenic. 11/15/2009 - Underwent atrial flutter radiofrequency ablation, [facility] (Dr. Marie). Unfortunately, went on to develop atrial fibrillation - chronic. 05/04/2017 - Echocardiogram showed borderline concentric left ventricle hypertrophy with normal wall motion, LVEF 65%, at least mildly dilated left atrium. Unfortunately, assessment of right heart chambers was technically difficult, but his inferior vena cava was mildly dilated in keeping with right heart failure. There was mild aortic sclerosis without functional abnormality. Mild mitral annular thickening with trace to mild insufficiency. 07/15/2017 - Holter monitor: This showed underlying atrial fibrillation with reasonably controlled ventricular responses varying from 42-125 with average rate 80 BPM. Longest pause between QRS complexes with 2.4 seconds. No symptoms were reported. 12/13/2017 - Regadenoson stress heart scan: No low-level exercise/pharmacologically induced chest pain, EKG ST/T-wave change. Remained in atrial fibrillation throughout. LV size was reportedly normal with proximal inferior hypokinesis, yet preserved global resting systolic function. Associated fixed inferior myocardial perfusion defect in keeping with prior injury. No reversible abnormality to suggest stress inducible myocardial ischemia. CARDIAC RISK FACTORS: Male gender. Advanced age. Longstanding insulin-dependent diabetes mellitus. Hypertension. Hypercholesterolemia. No history of smoking. No family history of premature coronary heart disease. OTHER PAST MEDICAL HISTORY: Complicated insulin dependent diabetes mellitus with chronic renal insufficiency. Left nephrectomy for renal cell carcinoma. Hypothyroidism. Basal cell carcinoma excisional biopsies. Gout. Anxiety. Chronic renal insufficiency followed by nephrology. Spinal stenosis. Diverticular disease of the large colon. Prior GI bleeding. Hemorrhoids. Peripheral neuropathy. Longstanding peripheral venous insufficiency with prior cellulitis. Prior cataracts. Prior colonic polyps. Glaucoma. PRIOR SURGICAL HISTORY: Coronary artery bypass 2006. Left nephrectomy. Cataract extraction. Colonic polypectomy. SYSTEMS REVIEW : Denies any fever, chills or night sweats. No visual changes. History of reflux and heartburn. Dry cough. No change in bowel habit or GI bleeding. Reduced urinary stream. Chronic low back pain. All other systems review is negative. MEDICATIONS: At the time of his admission, his medications included atorvastatin 40 mg daily, aspirin 81 mg daily, Xarelto 10 mg daily, Lasix 80 mg daily, KCl 10 mEq twice a day, allopurinol 300 mg daily, metoprolol succinate 50 mg daily, isosorbide mononitrate 10 mg three times a day, nitroglycerin 0.4 mg sublingually every 5 minutes p.r.n. chest pain, Lasix 40 mg at bedtime, amiloride 5 mg daily, insulin according to sliding scale prior to each meal, multivitamin 1 tablet daily, lidocaine 5% patches lower back daily, Xalatan 0.005% eye solution 1 drop each eye at bedtime, vitamin D2 50,000 units by mouth weekly, levofloxacin 88 mcg by mouth daily, Insulin Glargine 20 units subcu at bedtime, glipizide 5 mg by mouth daily, lactulose 30 grams by mouth daily for constipation, Colace 100 mg by mouth twice a day, and MiraLax 17 grams by mouth daily. ALLERGIES/ INTOLERANCES: CONTRAST DYE, PENICILLINS, SULFA, CEPHALOSPORINS, TETRACYCLINE, ERYTHROMYCIN, AMLODIPINE, HYDRALAZINE and MINOXIDIL. PHYSICAL EXAMINATION: Constitutional: Pleasant bright elderly male laying comfortably with the head of bed elevated 30 degrees. Medium body build. Slightly increased anteroposterior chest configuration. Vital Signs: Heart rate 80 BPM and irregular, blood pressure 170/80 supine, 170/76 sitting with legs dependent, respiratory rate 18, O2 saturation 96% on room air. Afebrile. Weight 214 pounds. Height 73 inches. Body surface area 2.25 m2. Body mass index (BMI) 28.2. Eyes: Normal appearing conjunctivae, without pallor, icterus or petechiae. No xanthelasma. Mouth: Normal oral moisture. No central cyanosis. Neck: Trachea midline. Thyroid not enlarged. Neck veins elevated 12 cm above the sternal angle measured with the patient sitting. Respiratory: Increased anteroposterior chest diameter with well-healed sternotomy incision. Fairly good air entry over both lung davis with no current abnormal pulmonary adventitious sounds. Cardiovascular: Apical impulse not palpable. Heart sounds somewhat distant and variable with his arrhythmia. Has no audible gallop or murmur. Normal carotid upstroke, but variable volume related to his atrial fibrillation. No bruits. Upper extremity pulses were symmetrical and normal. Abdominal aorta and femoral pulses not palpable because of his edema and overweight abdomen. Pedal pulses were difficult to palpate because of his intense lower leg edema. He had no abdominal bruits. Gross systemic edema involving both legs including his thighs, buttocks and over his sacral and lumbar spines posteriorly. The lower aspect of both forearms was also swollen. GI: Slightly overweight, but soft and nontender abdomen. Liver span 10 cm in the right mid line. Spleen was not palpable. Normal bowel sounds. Rectal examination not indicated. Musculoskeletal: Walks with a walker because of chronic spinal stenosis and low back pain. No obvious joint deformities. Proximal muscle weakness, but normal tone. Normal spine curvature. Neuro/Psych: Bright, alert and oriented. Gave a lucid history. Eye, facial and extremity movements were symmetrical and normal. No abnormal movements. Skin: Has chronic atrophic changes to skin of both lower legs with obvious localized erythematous area related to his edema and likely superficial cellulitis distal left lower leg. Mild petechiale eruption over the dorsum of his feet. No pallor, cyanosis, clubbing or splinter hemorrhages. INVESTIGATIONS: Chest x-ray study: Reviewed independently - Portable upright study 07/19/2018 shows cardiomegaly even allowing for this portable technique with pulmonary venous congestion, but no obvious pulmonary edema. Somewhat blunted pleural angles. Prior sternotomy sutures. EKG: Reviewed independently - Underlying atrial fibrillation with controlled ventricular response averaging 71 BPM. Extremely prominent precordial voltage in keeping with LVH. QS pattern V1 and V2, could not rule out prior septal injury. Prominent repolarization abnormalities did not appear to be changed from his prior tracing 02/26/2018. Renal ultrasound 01/26/2018: Reportedly showed left nephrectomy with chronic degenerative changes of his right kidney with multiple cysts. No hydronephrosis. Normal appearing bladder. 07/20/2018 CT scan of his head without contrast: Showed no evidence of acute infarction or hemorrhage, chronic lacunar infarcts and evidence of small-vessel disease with moderate cerebral atrophy. BLOOD WORK: Admission hemoglobin 12.4 with normal white blood cell count and platelet count. D-dimer was slightly elevated at 658. Admission chemistry showed electrolyte balance with BUN 53, creatinine 2.98, random glucose 141, serum calcium 9.1, albumin 2.5. Serial Troponin I levels have been negative. Liver function studies were normal. Last ultra sensitive TSH was 5.14 January 2018. BNP level is elevated at 3283. IMPRESSION/PLAN: 1. Heart failure (diastolic/acute on chronic): Has obvious symptoms and signs of biventricular congestion with an impressive 13-pound weight gain since his last recent visit in our office. We suspect this is related to progression of his renal insufficiency with retention of salt and water. Currently being followed by nephrology. Presently on a salt and fluid intake restriction. I have adjusted his diuretics to Lasix 80 mg every 6 hours aiming for a net negative fluid balance of 1 liter daily. I have given him a dose of Zaroxolyn 2.5 mg today. We will follow his chemistry and fluid balance closely with you. 2. Chest pain: From his description, there are a host of features against myocardial ischemia as the origin of his complaint. This is supported by the fact his EKG repolarization abnormalities are not showing serial change and serial Troponin I levels are negative. I suspect this may be partially related to his congested state and increased respiratory muscle work. 3. Chronic atrial fibrillation: Current ventricular response is controlled on metoprolol succinate. However, in light of his suboptimal blood pressure control, this agent has been switched to carvedilol starting with 6.25 mg by mouth every 6 hours with hold parameter for heart rate less than 60 BPM. He remains on dose adjusted Xarelto. 4. Coronary artery disease (jamul vessel)/post CABG/post multiple PTCA: As mentioned above, has not been experiencing angina pectoris. EKG shows no repolarization change from tracings in our office recently and from the hospital tracing February 2018. Current blood pressure would be considered suboptimally controlled in light of his ischemic disease. Recent pharmacological stress heart scan showed a favorable coronary prognosis. His metoprolol has been switched to carvedilol. His isosorbide dinitrate has been replaced by topical nitro paste every 4 hours for the time being. He remains on atorvastatin and low-dose aspirin. Has sublingual nitroglycerin for use as necessary. 5. Hypertensive heart disease (benign with heart failure): Current systolic blood pressure is significantly elevated, likely related to his volume overloaded state. I have adjusted his diuretics as mentioned above and have replaced his metoprolol with carvedilol, a more effective beta-david with hypertensive states. Has been given topical nitro paste in place of his oral low-dose nitrate. He has also been ordered prazosin 1 mg by mouth every 6 hours with hold parameter for pressure less than 140 mmHg. I am confident this combination will effect adequate blood pressure control and hopefully improve his renal function. 6. Mitral and aortic valve disorder (non-rheumatic): His last echocardiogram did not show any hemodynamically significant valvular abnormality. Has no audible murmur on examination despite his echocardiographic findings. No symptoms or signs of endocarditis. We will plan on following him closely with you and appreciate the opportunity to participate in his care. KAIDEN
[2018-07-20] MEDS: CHLOROTHIAZIDE 500 MG VIAL (J1205) IV SCH ×2 (15:39→20:44)
[2018-07-20 16:00] VITALS: BP 144/82
--- NOTE | 2018-07-20 18:21 | ECHO ---
DATE OF PROCEDURE: 07/20/2018 AGE: 73 GENDER: Male HEIGHT: 73 inches WEIGHT: 213 pounds BODY SURFACE AREA: 2.21 m2 PATIENT LOCATION: Inpatient, PCU, room 3213 REFERRING PHYSICIAN: Kareem Harden MD INDICATION: Heart failure (acute on chronic). 2-D MEASUREMENTS: RV: 4.6 cm LV: 4.8 cm Septum: 1.2 cm Posterior wall: 1.2 cm Aortic root: 3.3 cm LA: 4.9 cm LVEF: 70% DOPPLER MEASUREMENTS: AV: 1.2 m/s LVOT: 0.8 m/s LVOT diameter: 2.0 cm MV-E: 97 Early mitral deceleration time: 218 ms E prime 7, E/E prime ratio: 13.9 PCWP: 16.5 mmHg PV: 0.7 m/s Pulmonary artery acceleration time: 77 ms PASP: At least 44 mmHg IVC: 2.4 cm COMMENTS: Underlying atrial fibrillation with controlled ventricular response. Technically challenging study in light of the patient's body habitus, but diagnostically useful information was still obtained. M-mode and two-dimensional echocardiography was performed with pulsed, continuous wave, color flow and tissue Doppler studies. Mild concentric left ventricular hypertrophy with hyperkinetic wall motion. Prominently dilated left atrium with at least mildly elevated currently measured mean left atrial pressure. Moderately dilated right heart chambers with hypokinesis and Doppler evidence of at least moderate pulmonary hypertension. Moderately dilated inferior vena cava with reduced respiratory collapse in keeping with an elevated central venous pressure. Aortic valvular sclerosis without functional abnormality. Normal aortic root size. Mild mitral annular calcification with no more than very mild insufficiency. No apparent intracardiac mass or pericardial effusion.
[2018-07-20] MEDS: RIVAROXABAN 10 MG TAB (XARELTO) PO SCH (18:45)
[2018-07-20 20:00] VITALS: BP 156/77
[2018-07-20] MEDS: ATORVASTATIN 20 MG TAB PO SCH (20:46)
[2018-07-20] MEDS: LATANOPROST 0.005% OPHTH SOLN 2.5 ML OU SCH (20:46)
[2018-07-20] MEDS: **NOTE PATIENT COMMENT** MISC XX SCH (21:00)
[2018-07-21] VITALS (10 sets, daily range): BP systolic 132–176; BP diastolic 65–95
[2018-07-21] MEDS: NITROGLYCERIN 2% OINT 1 GM *U/D* PKT TOP SCH ×6 (00:24→20:40)
[2018-07-21] MEDS: FUROSEMIDE 100 MG/10 ML VIAL (J1940) IV SCH ×4 (00:25→18:18)
[2018-07-21] MEDS: DOCUSATE SODIUM 100 MG CAP PO PRN (00:25)
--- NOTE | 2018-07-21 00:41 | ECGEPIP ---
Stationary ECG Study [facility] Test Date: 2018-07-20 Pat Name: JEANNA LYLE Department: Room: [place] [address] Gender: M Ski Maker: CHACE : [id number] Requested By: DIOGO AMADOR Order Number: [id number] Reading MD: Marcio Russell Measurements Intervals [place] Rate: 73 P: [place]: 0 QRS: 41 QRSD: 91 T: 39 QT: 407 QTc: 451 Interpretive Statements ATRIAL FIBRILLATION NONSPECIFIC ST & T-WAVE ABNORMALITY POSSIBLE PRIOR SEPTAL INFARCT ABNORMAL RHYTHM ECG COMPARED TO THE LAST 2 TRACINGS, NO SIGNIFICANT CHANGES Electronically Signed On 07-21-2018 0:41:08 EDT by Marcio Russell
[2018-07-21] MEDS ORDERED: METAMUCIL (PSYLLIUM) PACKET PO PRN (04:15)
[2018-07-21 05:27] LABS: ALBUMIN 2.5 GM/DL (3.2-5.2); BILIRUBIN,TOTAL 0.6 MG/DL (0.2-1.0); CALCIUM LEVEL 9.8 MG/DL (8.8-10.2); CREATININE FOR GFR 2.99 MG/DL (0.70-1.30); GLOMERULAR FILTRATION RATE 21.9 (>42); MAGNESIUM LEVEL 2.7 MG/DL (1.8-2.4); POTASSIUM SERUM 3.5 MEQ/L (3.5-5.1); TOTAL PROTEIN 6.3 GM/DL (6.4-8.2)
[2018-07-21] MEDS: CARVedilol 6.25 MG TAB PO SCH ×4 (06:00→18:00)
[2018-07-21] MEDS: LEVOTHYROXINE 88MCG TABLET (0.088 MG) PO SCH (06:02)
[2018-07-21] MEDS: PRAZOSIN 1 MG CAP PO SCH ×4 (06:02→18:17)
--- NOTE | 2018-07-21 06:47 | CR ---
DATE OF CONSULTATION: 07/20/2018 REQUESTING PHYSICIAN: Dr. Davidsno Aguero REASON FOR CONSULTATION: Acute kidney injury (GREGORY) on chronic kidney disease (CKD) stage IV in this patient with decompensated right heart failure. HISTORY OF PRESENT ILLNESS (HPI): Mr. Jose Antonio Willson is a 73-year-old male with a past medical history of solitary kidney, CKD, stage IV, hypertension, diastolic congestive heart failure and right heart failure, insulin-dependent diabetes mellitus, and other comorbid conditions as mentioned below. The patient was sent to the emergency room yesterday by his primary order checker, Dr. Ibarra after he was seen in the nephrology office with complaint of 12-pound weight gain and worsening lower extremity edema and difficult to control blood pressures and laboratory studies revealed concomitant worsening renal function. The patient complains of progressive leg edema, dyspnea on exertion, headaches, decreased exercise tolerance. He reports strict compliance with the diuretics and reports a recent change in his medications including the addition of Minoxidil a couple of weeks ago afterwhich he thinks he started to retain fluid. The nephrology service was requested for help in the management of his diuretics and monitoring of his renal function. PAST MEDICAL HISTORY: 1. CKD stage IV. 2. Solitary kidney. 3. History of nephrectomy for renal cancer. 4. Hypertension. 5. Coronary artery disease (CAD) status post coronary artery bypass grafting (CABG). 6. Chronic diastolic congestive heart failure. 7. Right heart failure. 8. Atrial fibrillation. 9. Hypothyroidism. 10. Cervical spine stenosis. 11. Gastroesophageal reflux disease (GERD). 12. Coronary artery bypass grafting (CABG). 13. 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 PAST SURGICAL HISTORY: 1. Left nephrectomy. 2. CABG. 3. History of coronary stents. 4. History of cardiac ablation. 5. Cataract extraction. 6. Colonic polypectomy. ALLERGIES: CONTRAST MEDIA, PENICILLIN, SULFA, AMLODIPINE, CARVEDILOL, CEPHALEXIN, AZITHROMYCIN, HYDRALAZINE, MINOXIDIL and TETRACYCLINE. FAMILY HISTORY: No family history of premature coronary heart disease. HOME MEDICATIONS: Reviewed. - atorvastatin 40 mg by mouth daily - aspirin 81 mg daily - Xarelto 10 mg daily - Furosemide 80 mg by mouth twice a day - Gina Ciel 10 mEq twice a day - allopurinol 300 mg daily - metoprolol 50 mg daily - isosorbide mononitrate 10 mg three times a day - nitroglycerin sublingual as needed - amiloride 5 mg daily - insulin sliding scale - multivitamin one tablet daily - eye drops - vitamin D2 50,000 units per week - levothyroxine 88 mcg daily - insulin - glipizide 5 mg daily - lactulose as needed - Colace - MiraLax REVIEW OF SYSTEMS: CONSTITUTIONAL: He denies fever or chills. He reports weight gain. EYES: He denies visual changes or tearing. ENT: He denies rhinorrhea or new tinnitus. CARDIAC: He reports a history of congestive heart failure and worsening leg edema and fluid retention. History of atrial fibrillation (A-fib). RESPIRATORY: He complains of worsening shortness of breath. He denies hemoptysis. GASTROINTESTINAL (GI): He denies nausea, vomiting or diarrhea. GENITOURINARY (): He reports somewhat decreased urine output. He denies dysuria or hematuria. MUSCULOSKELETAL: There is chronic low back pain. There is gout though no active recent flare. ENDOCRINE: He reports hypothyroidism and diabetes. HEMATOLOGIC: He reports chronic anticoagulant use and he reports anemia. NEUROLOGIC: He reports some headaches and feeling off balance. SKIN: He denies any new rashes or ulcers. He has a history of cellulitis in the past. The remainder of the review of systems is negative. PHYSICAL EXAMINATION: VITAL SIGNS: Temperature 97.1, pulse 61, respiratory rate 18, blood pressure 144/82, saturating 97% on room air. Intake yesterday was 690, urine output yesterday was only 800 mL. GENERAL: The patient is seen in bed, head of bed is elevated. Elderly male in no acute distress. HEENT/NECK: Extraocular muscles intact. His tongue is moist. His neck is supple. His jugular veins are elevated. CARDIAC: Variable heart sounds. There is at least 2+ pitting edema in the lower extremities that extends up to the hip and flanks and dependent areas. RESPIRATORY: There is symmetric air entry bilaterally. No appreciable crackles or rales. GASTROINTESTINAL (GI): The abdomen is soft, nontender. There are bowel sounds. GENITOURINARY (GE): There is no distended bladder palpable on exam. EXTREMITIES: Peripheral edema is present up to the hips, thighs and dependent area, as well as the abdominal flanks. There is some chronic venostasis and mild erythema on the left lower legs. NEUROLOGIC: No focal deficits. He is oriented times three and at baseline mentation. LABORATORY DATA: White count 5.3, hemoglobin 11.6. Sodium 142, potassium 4.0, bicarbonate 28, BUN 51, creatinine 2.9, magnesium 2.6, BNP 3200. IMAGING: Chest x-ray on July 20: Mild pulmonary edema with small effusions and left lower lobe atelectasis. INPATIENT MEDICATIONS: - Tylenol as needed - allopurinol 300 mg by mouth daily - Xanax 0.25 mg by mouth times one - aspirin 81 mg by mouth daily - atorvastatin 40 mg by mouth nightly - carvedilol 6.25 mg by mouth every 6 hours - Diuril 250 mg intravenous (IV) twice a day - Lasix 80 mg IV every 6 hours - glipizide 5 mg by mouth daily - insulin - levothyroxine 88 mcg by mouth daily - metolazone 2.5 mg by mouth times one - morphine as needed - multivitamin one tablet by mouth daily - nitroglycerin as needed - potassium chloride 40 mEq by mouth times one - prazosin 1 mg by mouth every 6 hours - Xarelto 10 mg by mouth daily PROBLEMS: 1. Decompensated diastolic congestive heart failure. Echocardiogram also shows evidence of right heart failure. The patient reports a 12-pound weight gain in the past couple of weeks. There is significant peripheral edema on exam. I suspect with his advanced chronic kidney disease and solitary kidney that it is likely going to be difficult to diurese the patient. Cardiology has increased his Lasix to 80 mg every 6 hours. I am also going to add Diuril 250 mg IV twice daily for sequential nephron blockade and augmented diuresis. He is appropriate fluid restricted. He is on an aggressive diuretic regimen at present with a combination around the clock Lasix and Diuril. If he does not adequately diurese he may require initiation of hemodialysis for control of his volume status and I have discussed the same with him. 2. Hypertension with uncontrolled readings. His systolic blood pressure was around 180 at the time of my visit this morning. His decompensated volume status is likely worsening the hypertension and I would expect that as he diureses and has salt and water diuresis that his blood pressures should improve. I have added Diuril to the Lasix. Otherwise no changes have been made to the present regimen of carvedilol and prazosin. Would avoid overly tight control of his blood pressure; however, while we are diuresing him. Hold parameters are written with his blood pressure medications. 3. Chronic kidney disease stage IV. The patient has a solitary kidney underlying. Renal function is slightly worse than his usual baseline. There are no uremic signs or symptoms. There is no urgent indication for hemodialysis at present. However, if he does not diurese with the aggressive combination of diuretics that he is on then he may require the initiation of hemodialysis for control of his volume status. At present we will continue combination Lasix and Diuril and fluid restriction and see how he fares. 4. Chronic atrial fibrillation. The heart rate is well controlled with beta david and he continues on low dose Xarelto which is appropriate in view of glomerular filtration rate (GFR). Thank you for involving me in the care of Mr. Willson. I will be happy to follow him along with you.
[2018-07-21] MEDS: HumaLOG INSULIN (NovoLOG) PER UNIT SC SCH ×4 (08:40→21:00)
[2018-07-21] MEDS: MULTIVITAMINS/MINERALS THERAP 1 TAB PO SCH (08:42)
[2018-07-21] MEDS: ALLOPURINOL 300 MG TAB PO SCH (08:42)
[2018-07-21] MEDS: CHLOROTHIAZIDE 500 MG VIAL (J1205) IV SCH ×2 (08:42→17:39)
[2018-07-21] MEDS: MIRALAX *UNIT DOSE* 17GM PACKET PO SCH (08:42)
[2018-07-21] MEDS: glipiZIDE XL 5 MG TABCR PO SCH (08:42)
[2018-07-21] MEDS: ASPIRIN 81 MG ENTERIC TAB PO SCH (08:42)
[2018-07-21] MEDS ORDERED: POTASSIUM CHLORIDE 10 MEQ SR TABLET PO ONE ×3 (12:00→22:00)
--- NOTE | 2018-07-21 12:12 | IPNPDOC ---
Subjective Date Seen The patient was seen on 07/21/18. Subjective Chief Complaint/HPI Patient complaining of constipation. No other complaints General: Denies: ROS Unobtainable, Chills, Night Sweats, Fatigue, Malaise, Normal Appetite, Other Symptoms Constitutional: Denies: Chills, Fever, Malaise, Night Sweats, Weakness, Fatigue, Weight Loss, Lethargy, Other Eyes: Denies: Pain, Vision change, Conjunctivae inflammation, Eyelid inflammation, Redness, Other ENT: Denies: Head Aches, Ear Pain, Dysphagia, Sinus Congestion, Post Nasal Drip, Sore Throat, Epistaxis, Other Symptoms Skin: Denies: Rash, Lesions, Jaundice, Bruising, Itching, Dry, Breakdown, Nail Changes, Other Pulmonary: Denies: Dyspnea, Cough, Pleuritic Chest Pain, Other Symptoms Cardiovascular: Denies: Chest Pain, Palpitations, Orthopnea, Paroxysmal Noc. Dyspnea, Edema, Lt Headedness, Other Symptoms Gastrointestinal: Reports: Constipation; Denies: Nausea, Vomiting, Abdominal Pain, Diarrhea, Melena, Hematochezia, Other Symptoms Genitourinary: Denies: Dysuria, Frequency, Incontinence, Hematuria, Retention, Other Symptoms Hematologic: Denies: Bruising, Bleeding Excessively, Petecchia, Purpura, Enlarged Lymph Nodes, Other Hematologic Endocrine: Denies: Polydipsia, Polyphagia, Polyuria, Heat Intolerance, Cold Intolerance, Other Endocrine Sx Musculoskeletal: Denies: Neck Pain, Back Pain, Shoulder Pain, Arm Pain, Hand Pain, Leg Pain, Foot Pain, Joint Pain, Muscle Pain, Spasms, Other Symptoms Neurological: Reports: Weakness; Denies: Numbness, Incoordination, Change in speech, Confusion, Seizures, Other Symptoms Psych: Denies: Mood Normal, Anxiety, Depression, Memory Issues, Thoughts of Self Harm, Anger, Thoughts of Harming Other, Other Psych Objective Physical Examination General Exam: Positive: Alert, Cooperative, No Acute Distress Eye Exam: Positive: PERRLA, Conjunctiva & lids normal ENT Exam: Positive: Atraumatic, Mucous membr. moist/pink Neck Exam: Positive: Supple, JVD, thyromegaly Chest Exam: Positive: Clear to auscultation, Normal air movement Heart Exam: Positive: Rate Normal, Normal S1, Normal S2 Abdomen Exam: Positive: Normal bowel sounds, Tenderness, Hepatospenomegaly Extremity Exam: Positive: Edema (2+ bipedal edema below the both knees) Skin Exam: Positive: Nl turgor and temperature Neuro Exam: Positive: Normal Gait, Normal Speech Psych Exam: Positive: Mental status NL A-FIB/CHADSVASC A-FIB History Current/History of A-Fib/PAF?: Yes Current Oral Anticoagulant The: Yes Assessment /Plan Problems (1) Acute on chronic diastolic CHF (congestive heart failure) Status: Resolved Problem Text: Acute on chronic diastolic heart failure -Diuresis and volume management per nephrology team. Given underlying significant chronic kidney disease -Volume restriction 1200 mL daily -Daily weights, monitoring response therapy -Monitor electrolytes to keep potassium greater than 4 and magnesium greater than 2 -Discussed with cardiology and nephrology respectively . Consults appreciated. -Continue IV diuresis with lasix and also diuril has been added -I/O -Daily wt (2) Chronic kidney disease (CKD), stage III (moderate) Status: Chronic Problem Text: Chronic kidney disease stage IV -avoid nephrotoxic medications -Renal diet -Nephrology has been consulted -Diuresis has been initiated first before his decided to go ahead with hemodialysis (3) CAD (coronary artery disease) Status: Chronic Problem Text: CAD with angina -Cardiac biomarker troponin negative -Patient could have chest pain from coronary spasm with elevated blood pressure -Cardiac evaluation completed December 2017 negative for inducible ischemia -Cardiology consult appreciated and beta blockers has been added as well -Continue the CAD risk factor modifications. Aspirin, beta david, statin (4) Paroxysmal a-fib Status: Chronic Problem Text: Chronic atrial fibrillation -With high embolic score -Continue anticoagulation therapy with Xarelto -Rate control with Metoprolol succinate (5) Diabetes Status: Chronic Problem Text: Type 2 diabetes mellitus -Diabetic diet -Fingerstick checks prior to meals and at bedtime -Coverage with insulin per sliding scale protocol -Continue glipizide Plan/VTE VTE Prophylaxis Ordered?: Yes VS, I&O, 24H, Fishbone Vital Signs/I&O Vital Signs Date Time Temp Pulse Resp B/P (MAP) Pulse Ox O2 Delivery O2 Flow Rate FiO2 07/21/18 12:00 82 07/21/18 08:41 176/88 07/21/18 08:00 97.9 20 98 07/19/18 19:45 Room Air I&O- Last 24 Hours up to 6 AM 07/21/18 05:59 Intake Total 1080 ml Output Total 2900 ml Balance -1820 ml Laboratory Data 24H LABS Laboratory Tests 2 07/20/18 17:04: Bedside Glucose (Misc Panel) 137H 07/20/18 19:59: Bedside Glucose (Misc Panel) 207H 07/21/18 04:27: Anion Gap 7L, Glomerular Filtration Rate 21.9L, Blood Urea Nitrogen 52H, Creatinine 2.99H, Sodium Level 141, Potassium Level 3.5, Chloride Level 105, Carbon Dioxide Level 29, Calcium Level 9.8, Aspartate Amino Transf (AST/SGOT) 14, Alanine Aminotransferase (ALT/SGPT) 16, Alkaline Phosphatase 55, Total Bilirubin 0.6, Total Protein 6.3L, Albumin 2.5L, Magnesium Level 2.7H, Albumin/Globulin Ratio 0.66L 07/21/18 11:44: Bedside Glucose (Misc Panel) 165H CBC/BMP Laboratory Tests 07/21/18 04:27 Calcium Level 9.8, Aspartate Amino Transf (AST/SGOT) 14, Alanine Aminotransferase (ALT/SGPT) 16, Alkaline Phosphatase 55, Total Bilirubin 0.6, Total Protein 6.3 L, Albumin 2.5 L DINH RICH MD July 21, 2018 12:12
[2018-07-21] MEDS: RIVAROXABAN 10 MG TAB (XARELTO) PO SCH (18:17)
--- NOTE | 2018-07-21 19:46 | IPN ---
DATE: 07/21/2018 CARDIOLOGY PROGRESS NOTE: SUBJECTIVE: The patient claims to be feeling lethargic but no longer having his lower chest /upper abdominal discomfort / tightness. Finds his breathing has also improved. Continues to have marked lower leg swelling. Appears to be tolerating his medications without adverse effect. OBJECTIVE: Slightly overweight slightly barrel-chested elderly male sat comfortably on the edge of the bed. No pallor or cyanosis. Heart rate was 78 beats per minute and irregular, blood pressure 148/78 sitting with legs dependent, respiratory rate 16, O2 saturation 99% on room air. Afebrile. Weight today is down approximately 0.7 kg from yesterday with I and O balance fairly negative 1395 mL yesterday. Neck veins remain markedly elevated. Trachea midline. Increased anteroposterior chest diameter with fairly good air entry over both lung davis and no current inspiratory rales. Gross lower extremity pitting and sacral pitting. 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 LABORATORY DATA: Blood work this morning showed electrolyte balance but potassium down to 3.5, bicarbonate is normal at 29, BUN essentially stable at 52 and creatinine not significantly changed from yesterday despite the negative fluid balance. IMPRESSION/PLAN: 1. Heart failure (diastolic / acute on chronic): Appears to have objective signs of reduction in his congestion with combination parenteral diuretic therapy but obviously still markedly fluid overloaded. I have encouraged his continued modest salt and fluid intake restriction. Diuretics have been left the same. Have ordered low-dose potassium chloride replacement. 2. Chest pain: This has resolved with relief of some of his congestion. As mentioned the prolonged nature of this sensation is certainly against myocardial ischemia. 3. Chronic atrial fibrillation: Interestingly off beta david therapy over the past 24 hours with a controlled ventricular response. We changed his hold parameters for his carvedilol to heart rate less than 90 beats per minute as following dosage yesterday. His rate went down to the 30s and pause of 2.8 seconds. Remains on dose adjusted Xarelto. 4. 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 Tolerating his topical nitrate therapy without headache. Continues on low-dose on atorvastatin and low-dose aspirin. 5. Hypertensive heart disease (benign with heart failure): Current blood pressure is considerably improved with his combination diuretics, topical nitro paste prazosin. As mentioned, he has not received carvedilol due to hold parameters for his heart rate. Despite negative fluid balance renal function remains stable at this point. 6. 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 Dr. Johnson will be assuming cardiology followup at this point. MARANDAD
[2018-07-21] MEDS: ATORVASTATIN 20 MG TAB PO SCH (20:41)
[2018-07-21] MEDS: LATANOPROST 0.005% OPHTH SOLN 2.5 ML OU SCH (20:42)
[2018-07-21] MEDS: **NOTE PATIENT COMMENT** MISC XX SCH (21:00)
[2018-07-21] MEDS: ACETAMINOPHEN TAB 650MG DOSE (2X325MG) PO PRN (21:09)
[2018-07-22] VITALS (9 sets, daily range): BP systolic 146–192; BP diastolic 70–98
[2018-07-22] MEDS: FUROSEMIDE 100 MG/10 ML VIAL (J1940) IV SCH ×4 (01:06→18:00)
[2018-07-22] MEDS: NITROGLYCERIN 2% OINT 1 GM *U/D* PKT TOP SCH ×6 (01:07→20:07)
[2018-07-22] MEDS: PRAZOSIN 1 MG CAP PO SCH ×2 (01:07→06:27)
[2018-07-22] MEDS: CHLOROTHIAZIDE 500 MG VIAL (J1205) IV SCH ×2 (04:49→18:56)
[2018-07-22] MEDS: CARVedilol 6.25 MG TAB PO SCH ×4 (06:00→17:48)
[2018-07-22] MEDS: ACETAMINOPHEN TAB 650MG DOSE (2X325MG) PO PRN ×2 (06:26→16:47)
[2018-07-22] MEDS: LEVOTHYROXINE 88MCG TABLET (0.088 MG) PO SCH (06:27)
--- NOTE | 2018-07-22 07:20 | IPN ---
DATE OF SERVICE: 07/21/2018 SUBJECTIVE: The patient is seen and examined this morning at the bedside. He complains of lightheadedness and dizziness when he gets up. Nursing staff is requested to check orthostatic vitals. He reports his headache and chest discomfort have both improved significantly. VITAL SIGNS: Temperature 97.8, pulse 69, respiratory rate 18, blood pressure 136/65, saturating 99% on room air. Intake yesterday was 880, urine output yesterday was 2.2 liters, net negative 1.4 liters. Weight on the bed scale today is 96.3 kg. GENERAL: Patient is seen lying down in bed. Elderly male in no acute distress. Extraocular muscles are intact. Tongue is moist. Jugular veins are elevated. CARDIAC: Irregular heart sounds. 3+ pitting edema in the lower extremities. LUNGS: Show symmetric air entry bilaterally. No crackle or rale. ABDOMEN: Soft. Nontender. There are bowel sounds. There is no bladder fullness appreciable on exam. There is some mild cellulitis on the left lower leg. NEUROLOGIC: No focal deficit. Baseline mentation. LABS: White count 5.3, hemoglobin 11.6, sodium 141, potassium 3.5, bicarbonate 29, BUN 52, creatinine 2.9, magnesium 2.7. INPATIENT MEDICATIONS: I increased the Diuril to 500 mg IV twice a day. He continues on Lasix 80 mg IV every 6 hours. He was started on lactulose as needed. He received a dose of potassium, a total of 80 mEq spread out over the course of the day. PROBLEMS: 1. Decompensated diastolic congestive heart failure and right heart failure. He is on aggressive diuretic regimen of Lasix 80 mg IV every 6 hours and I have also increased the Diuril to 500 mg IV twice a day. Despite this sequential nephron blockade, he only made a little over 2 liters of urine yesterday. I am hoping that with the increase in the Diuril dose that he will diurese more satisfactorily. He continues on appropriate fluid restriction. If he does not adequately diurese, he may require hemodialysis initiation for control of volume status. However, we will continue with combination diuretics and see where we get. 2. Chronic kidney disease stage 4. Patient has a solitary kidney underlying. Renal function is slightly worse than his usual baseline, but he has tolerated the combination diuretics well. There is no urgent indication for hemodialysis at present. There are no uremic signs or symptoms. We will continue to monitor daily renal panel and urine output. I am hopeful that we will be able to control his volume status with medical optimization of his diuretics without need for hemodialysis. 3. Hypertension with uncontrolled readings. His blood pressure has improved since admission and is expected to improve further as his volume status improves. I have made no changes to his present regimen, but I have asked nursing staff to get orthostatic vitals as he complains of lightheadedness and dizziness when he gets up. Please avoid overly tight blood pressure control while he is being actively diuresed. 4. Hypokalemia. It is secondary to combination Lasix and Diuril and he received a total of 80 mEq of potassium today in divided doses.
[2018-07-22] MEDS: MIRALAX *UNIT DOSE* 17GM PACKET PO SCH (08:33)
[2018-07-22] MEDS: ASPIRIN 81 MG ENTERIC TAB PO SCH (08:34)
[2018-07-22] MEDS: HumaLOG INSULIN (NovoLOG) PER UNIT SC SCH ×4 (08:34→20:29)
[2018-07-22] MEDS: MULTIVITAMINS/MINERALS THERAP 1 TAB PO SCH (08:34)
[2018-07-22] MEDS: glipiZIDE XL 5 MG TABCR PO SCH (08:35)
[2018-07-22] MEDS: ALLOPURINOL 300 MG TAB PO SCH (08:35)
[2018-07-22] MEDS: LACTULOSE 20 GM/30 ML SYRUP UD PO PRN (08:48)
[2018-07-22] MEDS ORDERED: hydrALAZINE INJ 20 MG/ML VIAL IV SCH (09:00)
[2018-07-22 10:15] LABS: CALCIUM LEVEL 9.9 MG/DL (8.8-10.2); CREATININE FOR GFR 3.49 MG/DL (0.70-1.30); GLOMERULAR FILTRATION RATE 18.3 (>42); POTASSIUM SERUM 3.5 MEQ/L (3.5-5.1)
--- NOTE | 2018-07-22 10:57 | IPNPDOC ---
Subjective Date Seen The patient was seen on 07/22/18. Subjective Chief Complaint/HPI Mary refusing to take hydralazine as per patient, he had a fluid retention with that medication General: Denies: ROS Unobtainable, Chills, Night Sweats, Fatigue, Malaise, Normal Appetite, Other Symptoms Constitutional: Denies: Chills, Fever, Malaise, Night Sweats, Weakness, Fatigue, Weight Loss, Lethargy, Other Eyes: Denies: Pain, Vision change, Conjunctivae inflammation, Eyelid inflammation, Redness, Other ENT: Denies: Head Aches, Ear Pain, Dysphagia, Sinus Congestion, Post Nasal Drip, Sore Throat, Epistaxis, Other Symptoms Skin: Denies: Rash, Lesions, Jaundice, Bruising, Itching, Dry, Breakdown, Nail Changes, Other Pulmonary: Denies: Dyspnea, Cough, Pleuritic Chest Pain, Other Symptoms Cardiovascular: Denies: Chest Pain, Palpitations, Orthopnea, Paroxysmal Noc. Dyspnea, Edema, Lt Headedness, Other Symptoms Gastrointestinal: Denies: Nausea, Vomiting, Abdominal Pain, Diarrhea, Constipation, Melena, Hematochezia, Other Symptoms Genitourinary: Denies: Dysuria, Frequency, Incontinence, Hematuria, Retention, Other Symptoms Hematologic: Denies: Bruising, Bleeding Excessively, Petecchia, Purpura, Enlarged Lymph Nodes, Other Hematologic Endocrine: Denies: Polydipsia, Polyphagia, Polyuria, Heat Intolerance, Cold Intolerance, Other Endocrine Sx Musculoskeletal: Denies: Neck Pain, Back Pain, Shoulder Pain, Arm Pain, Hand Pain, Leg Pain, Foot Pain, Joint Pain, Muscle Pain, Spasms, Other Symptoms Neurological: Denies: Weakness, Numbness, Incoordination, Change in speech, Confusion, Seizures, Other Symptoms Psych: Denies: Mood Normal, Anxiety, Depression, Memory Issues, Thoughts of Self Harm, Anger, Thoughts of Harming Other, Other Psych Objective Physical Examination General Exam: Positive: Alert, Cooperative, No Acute Distress Eye Exam: Positive: PERRLA, Conjunctiva & lids normal ENT Exam: Positive: Atraumatic, Mucous membr. moist/pink Neck Exam: Positive: Supple, JVD, thyromegaly Chest Exam: Positive: Clear to auscultation, Normal air movement Heart Exam: Positive: Rate Normal, Normal S1, Normal S2 Abdomen Exam: Positive: Normal bowel sounds, Tenderness, Hepatospenomegaly Extremity Exam: Positive: Edema (2+ bipedal edema below the both knees) Skin Exam: Positive: Nl turgor and temperature Neuro Exam: Positive: Normal Gait, Normal Speech Psych Exam: Positive: Mental status NL A-FIB/CHADSVASC A-FIB History Current/History of A-Fib/PAF?: No Assessment /Plan Problems (1) Acute on chronic diastolic CHF (congestive heart failure) Status: Resolved Problem Text: Acute on chronic diastolic heart failure -Diuresis and volume management per nephrology team. Given underlying significant chronic kidney disease -Volume restriction 1200 mL daily -Daily weights, monitoring response therapy -Monitor electrolytes to keep potassium greater than 4 and magnesium greater than 2 -Discussed with cardiology and nephrology respectively . Consults appreciated. -Lasix and Diuril dosage for increased by nephrology and he put out 2 L of urinary output Also, has lost significant weight. He is 93 kg today She'll blood pressure was elevated and I prescribed hydralazine when necessary but patient refused to take the medication, hence we will try clonidine 0.1 mg by mouth every 12 hours when necessary unless anything else suggested by nephrology (2) Chronic kidney disease (CKD), stage III (moderate) Status: Chronic Problem Text: Chronic kidney disease stage IV -avoid nephrotoxic medications -Renal diet -Nephrology on the case -Diuresis has been initiated first before his decided to go ahead with hemodialysis (3) CAD (coronary artery disease) Status: Chronic Problem Text: CAD with angina -Cardiac biomarker troponin negative -Patient could have chest pain from coronary spasm with elevated blood pressure -Cardiac evaluation completed December 2017 negative for inducible ischemia -Cardiology consult appreciated and beta blockers has been added as well -Continue the CAD risk factor modifications. Aspirin, beta david, statin (4) Paroxysmal a-fib Status: Chronic Problem Text: Chronic atrial fibrillation -With high embolic score -Continue anticoagulation therapy with Xarelto -Rate control with Metoprolol succinate (5) Diabetes Status: Chronic Problem Text: Type 2 diabetes mellitus -Diabetic diet -Fingerstick checks prior to meals and at bedtime -Coverage with insulin per sliding scale protocol -Continue glipizide Plan/VTE VTE Prophylaxis Ordered?: Yes VS, I&O, 24H, Fishbone Vital Signs/I&O Vital Signs Date Time Temp Pulse Resp B/P (MAP) Pulse Ox O2 Delivery O2 Flow Rate FiO2 07/22/18 10:17 146/80 (102) 07/22/18 07:58 97.6 89 18 98 07/19/18 19:45 Room Air I&O- Last 24 Hours up to 6 AM 07/22/18 06:00 Intake Total 980 ml Output Total 2845 ml Balance -1865 ml Laboratory Data 24H LABS Laboratory Tests 2 07/21/18 11:44: Bedside Glucose (Misc Panel) 165H 07/21/18 17:01: Bedside Glucose (Misc Panel) 147H 07/21/18 19:48: Bedside Glucose (Misc Panel) 165H 07/21/18 21:22: D-Dimer, Quantitative 840.07H, Troponin I 0.03# 07/22/18 02:22: Troponin I 0.02# 07/22/18 06:35: Bedside Glucose (Misc Panel) 157H 07/22/18 09:16: Anion Gap 6L, Glomerular Filtration Rate 18.3L, Blood Urea Nitrogen 58H, Creatinine 3.49H, Sodium Level 142, Potassium Level 3.5, Chloride Level 103, Carbon Dioxide Level 33H, Calcium Level 9.9 CBC/BMP Laboratory Tests 07/22/18 09:16 Calcium Level 9.9 DINH RICH MD July 22, 2018 10:56
[2018-07-22] MEDS ORDERED: POTASSIUM CHLORIDE 10 MEQ SR TABLET PO ONE (11:45)
[2018-07-22] MEDS: DOCUSATE SODIUM 100 MG CAP PO PRN (16:47)
[2018-07-22] MEDS: RIVAROXABAN 10 MG TAB (XARELTO) PO SCH (18:55)
[2018-07-22] MEDS: ATORVASTATIN 20 MG TAB PO SCH (20:08)
[2018-07-22] MEDS: LATANOPROST 0.005% OPHTH SOLN 2.5 ML OU SCH (20:08)
[2018-07-22] MEDS: **NOTE PATIENT COMMENT** MISC XX SCH (20:09)
[2018-07-23] VITALS (13 sets, daily range): BP systolic 130–210; BP diastolic 68–98
[2018-07-23] MEDS: FUROSEMIDE 100 MG/10 ML VIAL (J1940) IV SCH ×4 (00:17→18:00)
[2018-07-23] MEDS: NITROGLYCERIN 2% OINT 1 GM *U/D* PKT TOP SCH ×6 (00:17→21:33)
[2018-07-23] MEDS ORDERED: ALPRAZolam 0.5 MG TAB PO ONE (01:30)
[2018-07-23] MEDS ORDERED: CALCIUM CARBONATE 500 MG CHEW U/D PO ONE (02:00)
[2018-07-23] MEDS ORDERED: GI COCKTAIL 50ML BTL(HYOSCYAMINE/MAALOX/LIDOCAINE VISCOUS)(1:3:1) PO ONE (03:15)
[2018-07-23] MEDS: CHLOROTHIAZIDE 500 MG VIAL (J1205) IV SCH (03:30)
[2018-07-23] MEDS: CARVedilol 6.25 MG TAB PO SCH ×4 (06:00→18:00)
[2018-07-23] MEDS: LEVOTHYROXINE 88MCG TABLET (0.088 MG) PO SCH (06:11)
--- NOTE | 2018-07-23 07:11 | TRANSCARE ---
Transition of Care: Transition of Care It was noted that the patient has gradually increased elevated pressure overnight. Instructed to thiazide diuretics early as patient's BP was increasing to around 190s/80s. Nitropaste was also placed on. Was contacted by nursing again and BNP was 204/98. Went to the bedside to examine the patient, and pt reported that he still has the 6/10 dull headache and chest pain that never go away since admission. Asked pt about his allergic reactions and pt indicated leg edema when he took amlodipine, carvedilol, and hydralazine. Pt reported that he does not want to be on the above med as he was told that he has allergy and bad things happen when he is on these meds. Pt reported his appreciativeness. CN fxn 2-12 grossly intact with +5/5 muscle strength and no numbness/tringling/loss of sensation. Discussed with attending and we will discuss with day team regarding reviewing med list. DIOGO AMADOR DO July 23, 2018 07:11
[2018-07-23] MEDS: ASPIRIN 81 MG ENTERIC TAB PO SCH (08:20)
[2018-07-23] MEDS: cloNIDine 0.1 MG TAB PO SCH ×2 (08:20→21:00)
[2018-07-23] MEDS: glipiZIDE XL 5 MG TABCR PO SCH (08:21)
[2018-07-23] MEDS: MULTIVITAMINS/MINERALS THERAP 1 TAB PO SCH (08:21)
[2018-07-23] MEDS: HumaLOG INSULIN (NovoLOG) PER UNIT SC SCH ×4 (08:21→21:00)
[2018-07-23] MEDS: ALLOPURINOL 300 MG TAB PO SCH (08:21)
[2018-07-23] MEDS: MIRALAX *UNIT DOSE* 17GM PACKET PO SCH ×2 (08:22→09:00)
[2018-07-23] MEDS: POTASSIUM CHLORIDE 10 MEQ SR TABLET PO SCH ×2 (09:00→21:34)
[2018-07-23 09:17] LABS: CALCIUM LEVEL 9.4 MG/DL (8.8-10.2); CREATININE FOR GFR 3.79 MG/DL (0.70-1.30); GLOMERULAR FILTRATION RATE 16.7 (>42); POTASSIUM SERUM 3.3 MEQ/L (3.5-5.1)
--- NOTE | 2018-07-23 09:49 | IPNPDOC ---
Subjective Date Seen The patient was seen on 07/23/18. Subjective Chief Complaint/HPI Patient refuses to take any antihypertensive meds but he agreed to take chondroitin today after lot of counseling and talking with them, and explaining the risks, severely elevated blood pressure. Patient also requesting Bactroban cream to 20. His abdominal folds and nasal saline inhaler General: Denies: ROS Unobtainable, Chills, Night Sweats, Fatigue, Malaise, Normal Appetite, Other Symptoms Constitutional: Denies: Chills, Fever, Malaise, Night Sweats, Weakness, Fatigue, Weight Loss, Lethargy, Other Eyes: Denies: Pain, Vision change, Conjunctivae inflammation, Eyelid infl ammation, Redness, Other ENT: Denies: Head Aches, Ear Pain, Dysphagia, Sinus Congestion, Post Nasal Drip, Sore Throat, Epistaxis, Other Symptoms Skin: Denies: Rash, Lesions, Jaundice, Bruising, Itching, Dry, Breakdown, Nail Changes, Other Pulmonary: Denies: Dyspnea, Cough, Pleuritic Chest Pain, Other Symptoms Cardiovascular: Denies: Chest Pain, Palpitations, Orthopnea, Paroxysmal Noc. Dyspnea, Edema, Lt Headedness, Other Symptoms Gastrointestinal: Denies: Nausea, Vomiting, Abdominal Pain, Diarrhea, Constipation, Melena, Hematochezia, Other Symptoms Genitourinary: Denies: Dysuria, Frequency, Incontinence, Hematuria, Retention, Other Symptoms Hematologic: Denies: Bruising, Bleeding Excessively, Petecchia, Purpura, Enlarged Lymph Nodes, Other Hematologic Endocrine: Denies: Polydipsia, Polyphagia, Polyuria, Heat Intolerance, Cold Intolerance, Other Endocrine Sx Musculoskeletal: Denies: Neck Pain, Back Pain, Shoulder Pain, Arm Pain, Hand Pain, Leg Pain, Foot Pain, Joint Pain, Muscle Pain, Spasms, Other Symptoms Neurological: Denies: Weakness, Numbness, Incoordination, Change in speech, Confusion, Seizures, Other Symptoms Psych: Denies: Mood Normal, Anxiety, Depression, Memory Issues, Thoughts of Self Harm, Anger, Thoughts of Harming Other, Other Psych Objective Physical Examination General Exam: Positive: Alert, Cooperative, No Acute Distress Eye Exam: Positive: PERRLA, Conjunctiva & lids normal ENT Exam: Positive: Atraumatic, Mucous membr. moist/pink Neck Exam: Positive: Supple, JVD, thyromegaly Chest Exam: Positive: Clear to auscultation, Normal air movement Heart Exam: Positive: Rate Normal, Normal S1, Normal S2 Abdomen Exam: Positive: Normal bowel sounds, Tenderness, Hepatospenomegaly Extremity Exam: Positive: Edema (2+ bipedal edema below the both knees) Skin Exam: Positive: Nl turgor and temperature Neuro Exam: Positive: Normal Gait, Normal Speech Psych Exam: Positive: Mental status NL A-FIB/CHADSVASC A-FIB History Current/History of A-Fib/PAF?: Yes Current Oral Anticoagulant The: Yes Assessment /Plan Problems (1) Acute on chronic diastolic CHF (congestive heart failure) Status: Resolved Problem Text: Acute on chronic diastolic heart failure -Diuresis and volume management per nephrology team. Given underlying significant chronic kidney disease -Volume restriction 1200 mL daily -Daily weights, monitoring response therapy -Monitor electrolytes to keep potassium greater than 4 and magnesium greater than 2 -Discussed with cardiology and nephrology respectively . Consults appreciated. -Lasix and Diuril dosage for increased by nephrology and he put out 2 L of urinary output -Patient is in about 1 L in negative balance every day -He has refused to take any -antihypertensive medications , but wants to speak with the nephrology before deciding -All risks off her extreme high blood pressure including his stroller and cerebral hemorrhage were explained to him and he understands very well (2) Chronic kidney disease (CKD), stage III (moderate) Status: Chronic Problem Text: Chronic kidney disease stage IV -avoid nephrotoxic medications -Renal diet -Nephrology on the case -Diuresis has been initiated first before his decided to go ahead with hemodialysis (3) CAD (coronary artery disease) Status: Chronic Problem Text: CAD with angina -Cardiac biomarker troponin negative -Patient could have chest pain from coronary spasm with elevated blood pressure -Cardiac evaluation completed December 2017 negative for inducible ischemia -Cardiology consult appreciated and beta blockers has been added as well -Continue the CAD risk factor modifications. Aspirin, beta david, statin (4) Paroxysmal a-fib Status: Chronic Problem Text: Chronic atrial fibrillation -With high embolic score -Continue anticoagulation therapy with Xarelto -Rate control with Metoprolol succinate (5) Diabetes Status: Chronic Problem Text: Type 2 diabetes mellitus -Diabetic diet -Fingerstick checks prior to meals and at bedtime -Coverage with insulin per sliding scale protocol -Continue glipizide (6) Uncontrolled hypertension Problem Text: Patient refusing to take any kind of antihypertensive meds But agreed now to take clonidine 0.1 mg by mouth twice a day to reduce systolic blood pressure Further, as per nephrology's recommendation Plan/VTE VTE Prophylaxis Ordered?: Yes VS, I&O, 24H, Fishbone Vital Signs/I&O Vital Signs Date Time Temp Pulse Resp B/P (MAP) Pulse Ox O2 Delivery O2 Flow Rate FiO2 07/23/18 08:22 210/82 07/23/18 07:35 98.3 78 18 98 07/19/18 19:45 Room Air I&O- Last 24 Hours up to 6 AM 07/23/18 06:00 Intake Total 1000 ml Output Total 2975 ml Balance -1975 ml Laboratory Data 24H LABS Laboratory Tests 2 07/22/18 12:10: Bedside Glucose (Misc Panel) 149H 07/22/18 16:56: Bedside Glucose (Misc Panel) 162H 07/22/18 20:10: Bedside Glucose (Misc Panel) 183H 07/23/18 01:57: Troponin I 0.02 07/23/18 07:29: Bedside Glucose (Misc Panel) 170H 07/23/18 08:27: Anion Gap 9, Glomerular Filtration Rate 16.7L, Blood Urea Nitrogen 56H, Creatinine 3.79H, Sodium Level 141, Potassium Level 3.3L, Chloride Level 103, Carbon Dioxide Level 29, Calcium Level 9.4 CBC/BMP Laboratory Tests 07/23/18 08:27 Calcium Level 9.4 DINH RICH MD July 23, 2018 09:49
[2018-07-23] MEDS: SODIUM CHLORIDE NASAL 0.65% SPRAY BTL (OCEAN) SCH ×3 (11:55→21:00)
[2018-07-23] MEDS: MUPIROCIN 2% OINT 22 GM TUBE TOP SCH ×2 (11:55→21:00)
[2018-07-23] MEDS ORDERED: POTASSIUM CHLORIDE 10 MEQ SR TABLET PO ONE (12:45)
--- NOTE | 2018-07-23 14:07 | IPN ---
DATE: 07/23/2018 Mr. Willson is seen this morning on his bedside. He is lying in the bed comfortably without any acute distress. He is very concerned about his kidney function and about the nodule in his right kidney. He has prior history of left nephrectomy due to renal cell carcinoma. He has known history of advanced renal failure with GFR about 20 mL/minute at baseline. He developed generalized edema due to side effect of minoxidil which is used for control of resistant hypertension. His blood pressure has been still elevated and medications were adjusted. He is currently being diuresed with intravenous Lasix. PHYSICAL EXAMINATION: Temperature 98.7 degrees Fahrenheit, heart rate 68 per minute and respiratory rate 18 per minute. Blood pressure 152/72 mmHg and oxygen saturation 99% on room air. His head is atraumatic. Neck is supple and jugular venous distention (JVD) is mildly to moderately elevated about 8 cm above sternal angle. He has no oral thrush or ulcers. His heart sounds are regular and there is no pericardial friction rub. His lungs have slightly diminished breath sounds at bases bilaterally. Abdomen is soft and nontender and bowel sounds are normal. Extremities have no cyanosis or clubbing. There is mild area of erythema on the left leg and edema on both legs is about 2+. Neurologically, he is awake, alert and oriented times three. Intake and output records from yesterday show a negative fluid balance of about 1700. Since admission he has been 6.3 liters negative so far. Today's labs show sodium 141, potassium 3.3, CO2 29, BUN 56 and creatinine 3.79. Calcium level 9.4. PROBLEMS: 1. Acute renal failure superimposed on chronic kidney disease: The patient has known history of advanced stage IV of chronic kidney disease at baseline. Acute renal failure is most likely related to diuresis. The patient clearly understands that he is going to require dialysis in the future and it all depends how his kidney function goes over next few days. At this point, there is no emergent indication for dialysis today and we will continue to monitor his kidney function on daily basis. 2. Generalized edema and hypervolemia. Volume status is improving and he is responding to intravenous diuretics. We will continue with the same dose of Lasix and aim for a negative fluid balance of about 1 liter to 1.5 liters per day. 3. Hypokalemia. This is related to diuresis and he has already received one dose of 14 mEq of potassium chloride this morning. I am going to put him on potassium chloride 20 mEq twice a day in order to prevent recurrent hypokalemia. He is likely to require diuresis for next the couple or more days. 4. Hypertension: Blood pressure control has been poor and medications have been adjusted. Most recent blood pressure is now down to low 150s and we will continue to monitor why she is being diuresed. I am feeling that with diuresis his blood pressure is going to improve significantly. 5. Renal nodule: He has known history of nodule in his left kidney which has been essentially unchanged. I look that his CT scan from early June and he does have an area of calcification and a small nodule. At this point no urgent intervention is needed and the patient is being assured that no urgent intervention is indicated.
[2018-07-23] MEDS ORDERED: PERCOCET 5MG/325MG TAB PO ONE (15:45)
[2018-07-23] MEDS: RIVAROXABAN 10 MG TAB (XARELTO) PO SCH (18:31)
[2018-07-23] MEDS: **NOTE PATIENT COMMENT** MISC XX SCH (21:00)
[2018-07-23] MEDS: LATANOPROST 0.005% OPHTH SOLN 2.5 ML OU SCH (21:34)
[2018-07-23] MEDS: ATORVASTATIN 20 MG TAB PO SCH (21:34)
[2018-07-24] VITALS (7 sets, daily range): BP systolic 130–156; BP diastolic 60–82
[2018-07-24] MEDS: FUROSEMIDE 100 MG/10 ML VIAL (J1940) IV SCH ×4 (00:16→17:09)
[2018-07-24] MEDS: ACETAMINOPHEN TAB 650MG DOSE (2X325MG) PO PRN (04:05)
[2018-07-24] MEDS: NITROGLYCERIN 2% OINT 1 GM *U/D* PKT TOP SCH ×6 (04:59→20:49)
[2018-07-24] MEDS: LEVOTHYROXINE 88MCG TABLET (0.088 MG) PO SCH (05:00)
[2018-07-24] MEDS: CARVedilol 6.25 MG TAB PO SCH ×2 (05:00)
[2018-07-24 06:00] LABS: CALCIUM LEVEL 8.9 MG/DL (8.8-10.2); CREATININE FOR GFR 3.94 MG/DL (0.70-1.30); GLOMERULAR FILTRATION RATE 15.9 (>42); POTASSIUM SERUM 3.6 MEQ/L (3.5-5.1)
[2018-07-24] MEDS: MULTIVITAMINS/MINERALS THERAP 1 TAB PO SCH (08:45)
[2018-07-24] MEDS: cloNIDine 0.1 MG TAB PO SCH ×2 (08:45→20:50)
[2018-07-24] MEDS: glipiZIDE XL 5 MG TABCR PO SCH (08:46)
[2018-07-24] MEDS: POTASSIUM CHLORIDE 10 MEQ SR TABLET PO SCH ×2 (08:46→20:50)
[2018-07-24] MEDS: ALLOPURINOL 300 MG TAB PO SCH (08:46)
[2018-07-24] MEDS: ASPIRIN 81 MG ENTERIC TAB PO SCH (08:46)
[2018-07-24] MEDS: HumaLOG INSULIN (NovoLOG) PER UNIT SC SCH ×4 (08:47→20:41)
[2018-07-24] MEDS: MIRALAX *UNIT DOSE* 17GM PACKET PO SCH (08:47)
[2018-07-24] MEDS: MUPIROCIN 2% OINT 22 GM TUBE TOP SCH ×2 (08:47→20:51)
[2018-07-24] MEDS: SODIUM CHLORIDE NASAL 0.65% SPRAY BTL (OCEAN) SCH ×3 (08:47→20:51)
--- NOTE | 2018-07-24 09:25 | IPN ---
DATE: 07/22/2018 SUBJECTIVE: Patient is seen and examined this morning at the bedside. He complains of dizziness whenever he gets up. His blood pressures are still somewhat suboptimally controlled. He is in daily net negative fluid balance and he is very compliant with oral fluid restriction. PHYSICAL EXAMINATION: Vital signs: Temperature 97.7, pulse 71, respiratory rate 18, blood pressure 154/90, saturating 99% on room air. Intake yesterday was 1120, urine output yesterday was 3.1 liters, net negative 2 liters. Weight on the bed scale today is 93 kg. General: Patient is seen lying in bed with head of the bed elevated and his legs also raised on a pillow. His jugular veins are high. His tongue is moist. His heart sounds are regular. There is 3+ pitting edema in the lower extremities. His lungs have diminished breath sounds at the bases, but are otherwise clear. The abdomen is soft and nontender. There are bowel sounds. Extremities show mild area of erythema on the left leg and bilateral pitting edema. Neurologic: He is awake, alert, oriented and interactive. LABS: Sodium 142, potassium 3.5, bicarbonate 33, BUN 68, creatinine 3.4. INPATIENT MEDICATIONS: Patient continues on Diuril 500 mg IV twice a day and Lasix 80 mg IV every 6 hours. Remainder of medications are unchanged from prior. He is given dosage of potassium supplementation. PROBLEMS: 1. Chronic kidney disease stage IV with renal functions slight worse than his usual baseline in the setting of decompensated congestive heart failure and aggressive diuresis. The patient is in daily net negative fluid balance . His creatinine has slightly bumped up. There is no urgent indication for hemodialysis at present. There are no uremic signs or symptoms, however, if we cannot control his volume status with diuretics then he may require hemodialysis initiation for optimization of his volume status and he understands the same. 2. Decompensated diastolic congestive heart failure. Continue Lasix 80 mg IV every 6 hours and Diuril to 500 mg IV twice a day. He is in net negative daily fluid balance. Weights are downtrending. However, there is still a lot of fluid to get rid of. He may end up requiring dialysis initiation for control of the volume status; however, we will see how he fairs over the weekend. 3. Uncontrolled hypertension. The patient's blood pressures have been suboptimal. I want to increase his antihypertensives, however, his major complaint to me today is he gets dizzy every time he tries to get out of bed. We will have nursing staff check orthostatic vitals and blood pressure medications will be adjusted after that. 4. Hypokalemia. It is secondary to combination Lasix and Diuril and he is receiving oral potassium supplementation.
--- NOTE | 2018-07-24 09:42 | IPNPDOC ---
Subjective Date Seen The patient was seen on 07/24/18. Subjective Chief Complaint/HPI Complaining of swelling in her legs not going away fast enough. As per patient General: Denies: ROS Unobtainable, Chills, Night Sweats, Fatigue, Malaise, Normal Appetite, Other Symptoms Constitutional: Denies: Chills, Fever, Malaise, Night Sweats, Weakness, Fatigue, Weight Loss, Lethargy, Other ENT: Denies: Head Aches, Ear Pain, Dysphagia, Sinus Congestion, Post Nasal Drip, Sore Throat, Epistaxis, Other Symptoms Skin: Denies: Rash, Lesions, Jaundice, Bruising, Itching, Dry, Breakdown, Nail Changes, Other Cardiovascular: Reports: Edema Gastrointestinal: Denies: Nausea, Vomiting, Abdominal Pain, Diarrhea, C onstipation, Melena, Hematochezia, Other Symptoms Genitourinary: Denies: Dysuria, Frequency, Incontinence, Hematuria, Retention, Other Symptoms Hematologic: Denies: Bruising, Bleeding Excessively, Petecchia, Purpura, Enlarged Lymph Nodes, Other Hematologic Endocrine: Denies: Polydipsia, Polyphagia, Polyuria, Heat Intolerance, Cold I ntolerance, Other Endocrine Sx Musculoskeletal: Denies: Neck Pain, Back Pain, Shoulder Pain, Arm Pain, Hand Pain, Leg Pain, Foot Pain, Joint Pain, Muscle Pain, Spasms, Other Symptoms Neurological: Denies: Weakness, Numbness, Incoordination, Change in speech, Confusion, Seizures, Other Symptoms Psych: Denies: Mood Normal, Anxiety, Depression, Memory Issues, Thoughts of Self Harm, Anger, Thoughts of Harming Other, Other Psych Objective Physical Examination General Exam: Positive: Alert, Cooperative, No Acute Distress Eye Exam: Positive: PERRLA, Conjunctiva & lids normal ENT Exam: Positive: Atraumatic, Mucous membr. moist/pink Neck Exam: Positive: Supple, JVD, thyromegaly Chest Exam: Positive: Clear to auscultation, Normal air movement Heart Exam: Positive: Rate Normal, Normal S1, Normal S2 Abdomen Exam: Positive: Normal bowel sounds, Tenderness, Hepatospenomegaly Extremity Exam: Positive: Edema (2+ bipedal edema below the both knees) Skin Exam: Positive: Nl turgor and temperature Neuro Exam: Positive: Normal Gait, Normal Speech Psych Exam: Positive: Mental status NL A-FIB/CHADSVASC A-FIB History Current/History of A-Fib/PAF?: Yes Current Oral Anticoagulant The: Yes Assessment /Plan Problems (1) Acute on chronic diastolic CHF (congestive heart failure) Status: Resolved Problem Text: Acute on chronic diastolic heart failure -Diuresis and volume management per nephrology team. Given underlying significant chronic kidney disease -Volume restriction 1200 mL daily -Daily weights, monitoring response therapy -Monitor electrolytes to keep potassium greater than 4 and magnesium greater than 2 -Discussed with cardiology and nephrology respectively . Consults appreciated. -Lasix and Diuril dosage for increased by nephrology and he put out 2 L of urinary output -Patient is in about 1.5 L in negative balance every day -He has refused to take any -antihypertensive medications , but wants to speak with the nephrology before deciding -All risks off her extreme high blood pressure including his stroller and cerebral hemorrhage were explained to him and he understands very well -Agreed to take sonogram 0.1 mg by mouth twice a day and his blood pressure has been under well control ever since -His heart rate tends to fall sometime 30s and 40s, most likely secondary to Coreg. We will decrease the dosage of Coreg to 6.25 by mouth every 12 hours and monitor his heart rate (2) Chronic kidney disease (CKD), stage III (moderate) Status: Chronic Problem Text: Chronic kidney disease stage IV -avoid nephrotoxic medications -Renal diet -Nephrology on the case -Diuresis has been initiated first before his decided to go ahead with hemodialysis (3) CAD (coronary artery disease) Status: Chronic Problem Text: CAD with angina -Cardiac biomarker troponin negative -Patient could have chest pain from coronary spasm with elevated blood pressure -Cardiac evaluation completed December 2017 negative for inducible ischemia -Cardiology consult appreciated and beta blockers has been added as well -Continue the CAD risk factor modifications. Aspirin, beta david, statin (4) Paroxysmal a-fib Status: Chronic Problem Text: Chronic atrial fibrillation -With high embolic score -Continue anticoagulation therapy with Xarelto -Rate control with Metoprolol succinate (5) Diabetes Status: Chronic Problem Text: Type 2 diabetes mellitus -Diabetic diet -Fingerstick checks prior to meals and at bedtime -Coverage with insulin per sliding scale protocol -Continue glipizide (6) Uncontrolled hypertension Problem Text: Patient refusing to take any kind of antihypertensive meds But agreed now to take clonidine 0.1 mg by mouth twice a day to reduce systolic blood pressure Further, as per nephrology's recommendation Plan/VTE VTE Prophylaxis Ordered?: Yes VS, I&O, 24H, Fishbone Vital Signs/I&O Vital Signs Date Time Temp Pulse Resp B/P (MAP) Pulse Ox O2 Delivery O2 Flow Rate FiO2 07/24/18 08:45 150/90 07/24/18 07:30 97.7 52 18 100 07/19/18 19:45 Room Air I&O- Last 24 Hours up to 6 AM 07/24/18 06:00 Intake Total 740 ml Output Total 2030 ml Balance -1290 ml Laboratory Data 24H LABS Laboratory Tests 2 07/23/18 12:30: Bedside Glucose (Misc Panel) 126H 07/23/18 18:20: Bedside Glucose (Misc Panel) 155H 07/23/18 21:48: Bedside Glucose (Misc Panel) 159H 07/24/18 04:55: Anion Gap 9, Glomerular Filtration Rate 15.9L, Blood Urea Nitrogen 60H, Creatinine 3.94H, Sodium Level 142, Potassium Level 3.6, Chloride Level 103, Carbon Dioxide Level 30, Calcium Level 8.9 CBC/BMP Laboratory Tests 07/24/18 04:55 Calcium Level 8.9 DINH RICH MD July 24, 2018 09:42
[2018-07-24] MEDS: LIDOCAINE 5% (LIDODERM) PATCH TD PRN (12:14)
[2018-07-24] MEDS: PERCOCET 5MG/325MG TAB PO PRN (14:39)
--- NOTE | 2018-07-24 14:54 | IPN ---
DATE: 07/24/2018 Mr. Willson is seen this morning on his bedside. He is sitting at the edge of bed and reports some mild dyspnea but persistent leg edema. He denies any nausea or vomiting. He has no fever or chills. PHYSICAL EXAMINATION: Temperature 98.2 degrees Fahrenheit, heart rate 64 per minute and respiratory rate 18 per minute. Blood pressure 142/80 mmHg and oxygen saturation 98% on room air. Intake and output records from yesterday showed total output 2355 and intake only recorded as 680, which is probably not accurate. He weighed 93.9 kg today. His head is atraumatic. Neck is supple and without JVD sitting upright. His lungs sound clear to auscultation. Heart sounds are regular and there is no pericardial friction rub. Abdomen soft and nontender and bowel sounds are normal. Extremities have no cyanosis or clubbing. Lower extremity edema is at least 2+. Neurologically he is at his baseline mentation. Today's labs show sodium 142, potassium 3.6, CO2 of 30, BUN 60 and creatinine 3.94. PROBLEMS: 1. Acute renal failure superimposed on chronic kidney disease. The patient has solitary left kidney with stage IV of chronic kidney disease at baseline. Acute renal failure is related to diuresis and negative fluid balance. At this point he is still hypervolemic and we are going to continue with diuresis. I have explained to the patient about potential need for dialysis if his kidney function does not get better. It is quite likely that he will require dialysis during this admission. 2. Hypervolemia/leg edema. His volume status is improving and will continue with current diuretic dose. We are aiming for a negative fluid balance of about 1.5 liters per day. 3. Hypokalemia. Potassium level has already improved and we will continue with potassium supplement 20 mEq b.i.d. 4. Hypertension. Blood pressure is much better now on current antihypertensive meds and no changes are being made today.
[2018-07-24] MEDS: RIVAROXABAN 10 MG TAB (XARELTO) PO SCH (17:10)
[2018-07-24] MEDS: LATANOPROST 0.005% OPHTH SOLN 2.5 ML OU SCH (20:50)
[2018-07-24] MEDS: ATORVASTATIN 20 MG TAB PO SCH (20:50)
[2018-07-24] MEDS: **NOTE PATIENT COMMENT** MISC XX SCH (20:52)
[2018-07-24] MEDS ORDERED: CARVedilol 6.25 MG TAB PO SCH (21:00)
[2018-07-25] VITALS (7 sets, daily range): BP systolic 141–170; BP diastolic 70–82
[2018-07-25] MEDS: NITROGLYCERIN 2% OINT 1 GM *U/D* PKT TOP SCH ×6 (00:51→21:24)
[2018-07-25] MEDS: FUROSEMIDE 100 MG/10 ML VIAL (J1940) IV SCH ×4 (00:52→17:46)
[2018-07-25 04:01] LABS: CALCIUM LEVEL 9.1 MG/DL (8.8-10.2); CREATININE FOR GFR 3.74 MG/DL (0.70-1.30); GLOMERULAR FILTRATION RATE 16.9 (>42); POTASSIUM SERUM 3.6 MEQ/L (3.5-5.1)
[2018-07-25] MEDS: LEVOTHYROXINE 88MCG TABLET (0.088 MG) PO SCH (05:49)
[2018-07-25] MEDS: PERCOCET 5MG/325MG TAB PO PRN (06:12)
[2018-07-25] MEDS: POTASSIUM CHLORIDE 10 MEQ SR TABLET PO SCH ×2 (07:50→21:24)
[2018-07-25] MEDS: HumaLOG INSULIN (NovoLOG) PER UNIT SC SCH ×4 (07:51→21:00)
[2018-07-25] MEDS: MULTIVITAMINS/MINERALS THERAP 1 TAB PO SCH (07:51)
[2018-07-25] MEDS: ASPIRIN 81 MG ENTERIC TAB PO SCH (07:52)
[2018-07-25] MEDS: MIRALAX *UNIT DOSE* 17GM PACKET PO SCH (07:52)
[2018-07-25] MEDS: ALLOPURINOL 300 MG TAB PO SCH (07:53)
[2018-07-25] MEDS: glipiZIDE XL 5 MG TABCR PO SCH (07:53)
[2018-07-25] MEDS: cloNIDine 0.1 MG TAB PO SCH ×2 (07:54→21:26)
[2018-07-25] MEDS: MUPIROCIN 2% OINT 22 GM TUBE TOP SCH ×2 (07:57→21:27)
[2018-07-25] MEDS: SODIUM CHLORIDE NASAL 0.65% SPRAY BTL (OCEAN) SCH ×3 (07:57→21:27)
[2018-07-25] MEDS: CARVedilol 3.125 MG TAB PO SCH ×2 (09:30→21:26)
[2018-07-25] MEDS: LIDOCAINE 5% (LIDODERM) PATCH TD PRN (09:41)
[2018-07-25] MEDS: LACTULOSE 20 GM/30 ML SYRUP UD PO PRN (09:41)
[2018-07-25 10:06] LABS: BASO % 0.9 % (0.0-1.0); EOS # 0.2 10^3/uL (0.0-0.50); EOS % 4.4 % (0.0-3.0); HEMATOCRIT 37.9 % (42.0-52.0); HEMOGLOBIN 12.2 g/dl (13.5-17.5); LYMPH # 1.2 10^3/uL (1.5-4.5); LYMPH % 27.6 % (24.0-44.0); MEAN CORPUSCULAR HEMOGLOBIN 29.5 pg (27.0-33.0); MEAN CORPUSCULAR HGB CONC 32.2 g/dl (32.0-36.5); MEAN CORPUSCULAR VOLUME 91.5 fl (80.0-96.0); MONO # 0.4 10^3/uL (0.0-0.8); MONO % 8.2 % (0.0-5.0); NEUTROPHILS # 2.6 10^3/uL (1.8-7.7); NEUTROPHILS % 58.7 % (36.0-66.0); PLATELET COUNT, AUTOMATED 171 10^3/uL (150-450); RED BLOOD COUNT 4.14 10^6/uL (4.30-6.10); WHITE BLOOD COUNT 4.5 10^3/uL (4.0-10.0)
--- NOTE | 2018-07-25 12:09 | IPNPDOC ---
Subjective Date Seen The patient was seen on 07/25/18. Subjective Chief Complaint/HPI Patient is still worried about swelling in his leg, which has much improved and as per patient, he gets short of breath when he walks from bed to bathroom and now he is concerned about possibility of hemodialysis General: Denies: ROS Unobtainable, Chills, Night Sweats, Fatigue, Malaise, Normal Appetite, Other Symptoms Constitutional: Denies: Chills, Fever, Malaise, Night Sweats, Weakness, Fatigue, Weight Loss, Lethargy, Other Eyes: Denies: Pain, Vision change, Conjunctivae inflammation, Eyelid inflammation, Redness, Other ENT: Denies: Head Aches, Ear Pain, Dysphagia, Sinus Congestion, Post Nasal Drip, Sore Throat, Epistaxis, Other Symptoms Skin: Denies: Rash, Lesions, Jaundice, Bruising, Itching, Dry, Breakdown, Nail Changes, Other Pulmonary: Denies: Dyspnea, Cough, Pleuritic Chest Pain, Other Symptoms Cardiovascular: Denies: Chest Pain, Palpitations, Orthopnea, Paroxysmal Noc. Dyspnea, Edema, Lt Headedness, Other Symptoms Gastrointestinal: Denies: Nausea, Vomiting, Abdominal Pain, Diarrhea, Constipation, Melena, Hematochezia, Other Symptoms Genitourinary: Denies: Dysuria, Frequency, Incontinence, Hematuria, Retention, Other Symptoms Hematologic: Denies: Bruising, Bleeding Excessively, Petecchia, Purpura, Enlarged Lymph Nodes, Other Hematologic Endocrine: Denies: Polydipsia, Polyphagia, Polyuria, Heat Intolerance, Cold Intolerance, Other Endocrine Sx Musculoskeletal: Denies: Neck Pain, Back Pain, Shoulder Pain, Arm Pain, Hand Pain, Leg Pain, Foot Pain, Joint Pain, Muscle Pain, Spasms, Other Symptoms Neurological: Denies: Weakness, Numbness, Incoordination, Change in speech, Confusion, Seizures, Other Symptoms Psych: Denies: Mood Normal, Anxiety, Depression, Memory Issues, Thoughts of Self Harm, Anger, Thoughts of Harming Other, Other Psych Objective Physical Examination General Exam: Positive: Alert, Cooperative, No Acute Distress Eye Exam: Positive: PERRLA, Conjunctiva & lids normal ENT Exam: Positive: Atraumatic, Mucous membr. moist/pink Neck Exam: Positive: Supple, JVD, thyromegaly Chest Exam: Positive: Clear to auscultation, Normal air movement Heart Exam: Positive: Rate Normal, Normal S1, Normal S2 Abdomen Exam: Positive: Normal bowel sounds, Tenderness, Hepatospenomegaly Extremity Exam: Positive: Edema (2+ bipedal edema below the both knees) Skin Exam: Positive: Nl turgor and temperature Neuro Exam: Positive: Normal Gait, Normal Speech Psych Exam: Positive: Mental status NL A-FIB/CHADSVASC A-FIB History Current/History of A-Fib/PAF?: Yes Current Oral Anticoagulant The: Yes Assessment /Plan Problems (1) Acute on chronic diastolic CHF (congestive heart failure) Status: Resolved Problem Text: Acute on chronic diastolic heart failure -Diuresis and volume management per nephrology team. Given underlying significant chronic kidney disease -Volume restriction 1200 mL daily -Daily weights, monitoring response therapy -Monitor electrolytes to keep potassium greater than 4 and magnesium greater than 2 -Discussed with cardiology and nephrology respectively . Consults appreciated. -Lasix and Diuril dosage for increased by nephrology and he put out 2 L of urinary output -Patient is in about 1.5 L in negative balance every day -Good D diuresis with current Lasix and Diuril. -Possibly patient will require hemodialysis once agreed by nephrology -Blood pressure under well control now. We'll continue clonidine 0.1 mg by mouth twice a day -His heart rate is also within 60s range and will continue Coreg and a smaller dose. 3.125 mg by mouth every 12 hours -Continue present meds (2) Chronic kidney disease (CKD), stage III (moderate) Status: Chronic Problem Text: Chronic kidney disease stage IV -avoid nephrotoxic medications -Renal diet -Nephrology on the case -Diuresis has been initiated first before his decided to go ahead with hemodialysis (3) CAD (coronary artery disease) Status: Chronic Problem Text: CAD with angina -Cardiac biomarker troponin negative -Patient could have chest pain from coronary spasm with elevated blood pressure -Cardiac evaluation completed December 2017 negative for inducible ischemia -Cardiology consult appreciated and beta blockers has been added as well -Continue the CAD risk factor modifications. Aspirin, beta david, statin (4) Paroxysmal a-fib Status: Chronic Problem Text: Chronic atrial fibrillation -With high embolic score -Continue anticoagulation therapy with Xarelto -Rate control with Metoprolol succinate (5) Diabetes Status: Chronic Problem Text: Type 2 diabetes mellitus -Diabetic diet -Fingerstick checks prior to meals and at bedtime -Coverage with insulin per sliding scale protocol -Continue glipizide (6) Uncontrolled hypertension Problem Text: Patient refusing to take any kind of antihypertensive meds But agreed now to take clonidine 0.1 mg by mouth twice a day to reduce systolic blood pressure Further, as per nephrology's recommendation Plan/VTE VTE Prophylaxis Ordered?: Yes VS, I&O, 24H, Fishbone Vital Signs/I&O Vital Signs Date Time Temp Pulse Resp B/P (MAP) Pulse Ox O2 Delivery O2 Flow Rate FiO2 07/25/18 09:30 60 170/82 07/25/18 08:01 97.8 20 99 07/19/18 19:45 Room Air I&O- Last 24 Hours up to 6 AM 07/25/18 06:00 Intake Total 820 ml Output Total 1475 ml Balance -655 ml Laboratory Data 24H LABS Laboratory Tests 2 07/24/18 12:19: Bedside Glucose (Misc Panel) 112H 07/24/18 17:17: Bedside Glucose (Misc Panel) 114H 07/24/18 20:34: Bedside Glucose (Misc Panel) 162H 07/25/18 03:25: Anion Gap 7L, Glomerular Filtration Rate 16.9L, Blood Urea Nitrogen 65H, Creatinine 3.74H, Sodium Level 140, Potassium Level 3.6, Chloride Level 102, Carbon Dioxide Level 31, Calcium Level 9.1 07/25/18 09:28: Immature Granulocyte % (Auto) 0.2, White Blood Count 4.5, Red Blood Count 4.14L, Hemoglobin 12.2L, Hematocrit 37.9L, Mean Corpuscular Volume 91.5, Mean Corpuscular Hemoglobin 29.5, Mean Corpuscular Hemoglobin Concent 32.2, Red Cell Distribution Width 15.3H, Platelet Count 171, Neutrophils (%) (Auto) 58.7, Lymphocytes (%) (Auto) 27.6, Monocytes (%) (Auto) 8.2H, Eosinophils (%) (Auto) 4.4H, Basophils (%) (Auto) 0.9, Neutrophils # (Auto) 2.6, Lymphocytes # (Auto) 1.2L, Monocytes # (Auto) 0.4, Eosinophils # (Auto) 0.2, Basophils # (Auto) 0.0, Nucleated Red Blood Cells % (auto) 0.0 CBC/BMP Laboratory Tests 07/25/18 03:25 Calcium Level 9.1 07/25/18 09:28 Red Blood Count 4.14 L, Mean Corpuscular Volume 91.5, Mean Corpuscular Hemoglobin 29.5, Mean Corpuscular Hemoglobin Concent 32.2, Red Cell Distribution Width 15.3 H, Neutrophils (%) (Auto) 58.7, Lymphocytes (%) (Auto) 27.6, Monocytes (%) (Auto) 8.2 H, Eosinophils (%) (Auto) 4.4 H, Basophils (%) (Auto) 0.9, Neutrophils # (Auto) 2.6, Lymphocytes # (Auto) 1.2 L, Monocytes # (Auto) 0.4, Eosinophils # (Auto) 0.2, Basophils # (Auto) 0.0 DINH RICH MD July 25, 2018 12:09
[2018-07-25] MEDS ORDERED: SIMETHICONE 80 MG CHEW TAB PO PRN (17:45)
[2018-07-25] MEDS: SIMETHICONE 80 MG CHEW TAB PO PRN (17:47)
[2018-07-25] MEDS: RIVAROXABAN 10 MG TAB (XARELTO) PO SCH (17:52)
[2018-07-25] MEDS: **NOTE PATIENT COMMENT** MISC XX SCH (21:00)
[2018-07-25] MEDS: ATORVASTATIN 20 MG TAB PO SCH (21:25)
[2018-07-25] MEDS: LATANOPROST 0.005% OPHTH SOLN 2.5 ML OU SCH (21:26)
[2018-07-26] MEDS: FUROSEMIDE 100 MG/10 ML VIAL (J1940) IV SCH ×4 (00:26→17:55)
[2018-07-26] MEDS: NITROGLYCERIN 2% OINT 1 GM *U/D* PKT TOP SCH ×6 (00:29→20:00)
--- NOTE | 2018-07-26 01:00 | IPNPDOC ---
Text Note Date of Service The patient was seen on 07/25/18. NOTE Nephrology Service: Subjective: Patient seen and examined at bedside sitting up. Is able to stand up and walk around his room alright he states. However, he has trouble if he has a longer walk in the hallway. Reports he gets dizzy if he does that. In addition, worried about some weight gain around his abdomen. Otherwise, no acute overnight events reported. Denies fevers, chills, chest pain, SOB, nausea, vomiting, abdominal pain, diarrhea, constipation. Still concerned about swelling in his legs. His kidney function a bit improved today, but remains stable. Objective: Vitals: T 97.8 P 55 RR 20 BP 170/82 Pulse Ox: 99% room air Weight: 93.9 kg yesterday and 91.3 kg today Intake: 820 ml Output: 2025 ml Balance: (-) 1205 ml UO: 0.90 mL/kg/hr GENERAL APPEARANCE: Pleasant and cooperative adult male lying comfortably in bed. Awake, alert, oriented x 3. HEENT: NCAT. Sclera nonicteric. NECK: Supple. Mild JVD. RESPIRATORY: Clear to Auscultation bilaterally. No wheezes/rales/rhonchi. CARDIOVASCULAR: Normal S1S2, bradycardic rate, regular rhythm, no murmurs appreciated. ABDOMEN: Soft, nontender, nondistended. No ascites. EXTREMITIES: (+)1 pitting edema of lower extremities bilaterally. INTEGUMENTARY: No rashes or lesions noted. NEUROLOGICAL: Appropriate mentation. No focal neurologic deficits appreciated on inspection. PSYCHIATRIC: Appropriate mood and affect. No signs of overt depression/anxiety. Laboratory data: CBC: WBC 4.5, Hgb 12.2, Platelets 171 BMP: Na 140, K 3.6, CO2 31, BUN 65, Cr 3.74, GFR 16.9, Glucose 125, Ca 9.1 Imaging: No new imaging today. Current Inpatient Medications: Lasix 80 mg q6h IV Carvedilol 3.125 mg vid Clonidine 0.1 mg BID Allopurinol 300 mg PO daily Aspirin 81 mg PO daily Xarelto 10 mg PO daily Medication Changes: Carvedilol went from 6.25 mg q12H to 3.125 mg q12H Started on Simethicone 80 mg q6H PRN gas pain No other medication changes noted today. Assessment/Plan: 1. Acute renal failure superimposed on chronic kidney disease stage IV with solitary L kidney: Patient's GREGORY is secondary to diuresis and negative fluid balance. Patient's hypervolemia has improved and patient had less edema in lower extremities, mild JVD as well. Kidney function today slightly improved. Will continue to monitor renal function for recovery of renal function. Will monitor for need for dialysis. No urgent need for dialysis today. 2. Hypervolemia/leg edema: Stable and improving. Continue diuresis with lasix 80 mg q6h IV. Volume status improving. Goal is a negative fluid balance of 1.5 liters per day. 3. Hypokalemia: Potassium level WNL at 3.6. Continue supplemental potassium of 20 mEq BID. Continue to monitor BMP. 4. Hypertension: Patient's BP elevated today in the 170s systolic. Carvedilol dosing was changed by primary team from 6.25 mg BID to 3.125 mg BID due to concern from bradycardia it seems according to Hospitalist note. HR was indeed 55 this AM. Will continue to monitor and adjust therapy as necessary. 5. Paroxysmal Atrial Fibrillation: Rate controlled with carvedilol and a nticoagulated with xarelto. Continue current regimen. My preceptor for this patient encounter was Dr. Joseph Wilson, and was physically present in the building during the encounter and was fully available. As needed, all aspects of the patient interview, examination, medical decision making process, and medical care plan development were reviewed and approved by the preceptor. Preceptor is aware and concurs with the plan as stated in the body of this note and will attest to such by his/her cosignature. A-FIB/CHADSVASC A-FIB History Current/History of A-Fib/PAF?: Yes Current Oral Anticoagulant The: Yes VS,Fishbone, I+O VS, Fishbone, I+O Laboratory Tests 07/25/18 03:25 Calcium Level 9.1 07/25/18 09:28 Red Blood Count 4.14 L, Mean Corpuscular Volume 91.5, Mean Corpuscular Hemoglobin 29.5, Mean Corpuscular Hemoglobin Concent 32.2, Red Cell Distribution Width 15.3 H, Neutrophils (%) (Auto) 58.7, Lymphocytes (%) (Auto) 27.6, Monocytes (%) (Auto) 8.2 H, Eosinophils (%) (Auto) 4.4 H, Basophils (%) (Auto) 0.9, Neutrophils # (Auto) 2.6, Lymphocytes # (Auto) 1.2 L, Monocytes # (Auto) 0.4, Eosinophils # (Auto) 0.2, Basophils # (Auto) 0.0 Vital Signs Date Time Temp Pulse Resp B/P (MAP) Pulse Ox O2 Delivery O2 Flow Rate FiO2 07/25/18 09:30 60 170/82 07/25/18 08:01 97.8 20 99 07/19/18 19:45 Room Air I&O- Last 24 Hours up to 6 AM 07/25/18 06:00 Intake Total 820 ml Output Total 1475 ml Balance -655 ml CAMILO HUGGINS DO July 25, 2018 11:36
[2018-07-26 04:00] VITALS: BP 162/74
[2018-07-26] MEDS: ACETAMINOPHEN TAB 650MG DOSE (2X325MG) PO PRN (04:52)
[2018-07-26 05:21] LABS: HEMATOCRIT 41.6 % (42.0-52.0); MEAN CORPUSCULAR HEMOGLOBIN 28.7 pg (27.0-33.0); MEAN CORPUSCULAR HGB CONC 31.3 g/dl (32.0-36.5); MEAN CORPUSCULAR VOLUME 91.8 fl (80.0-96.0); PLATELET COUNT, AUTOMATED 195 10^3/uL (150-450); RED BLOOD COUNT 4.53 10^6/uL (4.30-6.10); WHITE BLOOD COUNT 4.7 10^3/uL (4.0-10.0)
[2018-07-26] MEDS: LEVOTHYROXINE 88MCG TABLET (0.088 MG) PO SCH (05:41)
[2018-07-26 05:47] LABS: ALBUMIN 3.1 GM/DL (3.2-5.2); CALCIUM LEVEL 9.7 MG/DL (8.8-10.2); CREATININE FOR GFR 3.56 MG/DL (0.70-1.30); GLOMERULAR FILTRATION RATE 17.9 (>42); PHOSPHORUS LEVEL 4.2 MG/DL (2.5-4.9); POTASSIUM SERUM 3.9 MEQ/L (3.5-5.1)
[2018-07-26 07:56] VITALS: BP 162/78
[2018-07-26] MEDS: MIRALAX *UNIT DOSE* 17GM PACKET PO SCH (08:16)
[2018-07-26] MEDS: HumaLOG INSULIN (NovoLOG) PER UNIT SC SCH ×4 (08:16→21:00)
[2018-07-26] MEDS: MULTIVITAMINS/MINERALS THERAP 1 TAB PO SCH (08:17)
[2018-07-26] MEDS: POTASSIUM CHLORIDE 10 MEQ SR TABLET PO SCH ×2 (08:17→21:21)
[2018-07-26] MEDS: glipiZIDE XL 5 MG TABCR PO SCH (08:17)
[2018-07-26] MEDS: CARVedilol 3.125 MG TAB PO SCH ×2 (08:18→21:25)
[2018-07-26] MEDS: SODIUM CHLORIDE NASAL 0.65% SPRAY BTL (OCEAN) SCH ×3 (08:18→21:21)
[2018-07-26] MEDS: cloNIDine 0.1 MG TAB PO SCH ×2 (08:18→21:20)
[2018-07-26] MEDS: ALLOPURINOL 300 MG TAB PO SCH (08:18)
[2018-07-26] MEDS: ASPIRIN 81 MG ENTERIC TAB PO SCH (08:18)
[2018-07-26] MEDS: MUPIROCIN 2% OINT 22 GM TUBE TOP SCH ×2 (08:19→21:22)
[2018-07-26] MEDS: SIMETHICONE 80 MG CHEW TAB PO PRN ×2 (10:23→19:44)
--- NOTE | 2018-07-26 11:12 | IPNPDOC ---
Subjective Date Seen The patient was seen on 07/26/18. Subjective Chief Complaint/HPI Patient is concerned that now fluid has came up to his stomach but he is still complaining of shortness of breath on walking some distance and chest discomfort on rest which resolved spontaneously General: Denies: ROS Unobtainable, Chills, Night Sweats, Fatigue, Malaise, Normal Appetite, Other Symptoms Constitutional: Denies: Chills, Fever, Malaise, Night Sweats, Weakness, Fatigue, Weight Loss, Lethargy, Other Eyes: Denies: Pain, Vision change, Conjunctivae inflammation, Eyelid inflammation, Redness, Other ENT: Denies: Head Aches, Ear Pain, Dysphagia, Sinus Congestion, Post Nasal Drip, Sore Throat, Epistaxis, Other Symptoms Skin: Denies: Rash, Lesions, Jaundice, Bruising, Itching, Dry, Breakdown, Nail Changes, Other Pulmonary: Reports: Dyspnea; Denies: Cough, Pleuritic Chest Pain, Other Symptoms Cardiovascular: Reports: Edema; Denies: Chest Pain, Palpitations, Orthopnea, Paroxysmal Noc. Dyspnea, Lt Headedness, Other Symptoms Gastrointestinal: Denies: Nausea, Vomiting, Abdominal Pain, Diarrhea, Constipation, Melena, Hematochezia, Other Symptoms Genitourinary: Denies: Dysuria, Frequency, Incontinence, Hematuria, Retention, Other Symptoms Hematologic: Denies: Bruising, Bleeding Excessively, Petecchia, Purpura, Enlarged Lymph Nodes, Other Hematologic Endocrine: Denies: Polydipsia, Polyphagia, Polyuria, Heat Intolerance, Cold Intolerance, Other Endocrine Sx Musculoskeletal: Denies: Neck Pain, Back Pain, Shoulder Pain, Arm Pain, Hand Pain, Leg Pain, Foot Pain, Joint Pain, Muscle Pain, Spasms, Other Symptoms Objective Physical Examination General Exam: Positive: Alert, Cooperative, No Acute Distress Eye Exam: Positive: PERRLA, Conjunctiva & lids normal ENT Exam: Positive: Atraumatic, Mucous membr. moist/pink Neck Exam: Positive: Supple, JVD, thyromegaly Chest Exam: Positive: Clear to auscultation, Normal air movement Heart Exam: Positive: Rate Normal, Normal S1, Normal S2 Abdomen Exam: Positive: Normal bowel sounds, Tenderness, Hepatospenomegaly Extremity Exam: Positive: Edema (2+ bipedal edema below the both knees) Skin Exam: Positive: Nl turgor and temperature Neuro Exam: Positive: Normal Gait, Normal Speech Psych Exam: Positive: Mental status NL A-FIB/CHADSVASC A-FIB History Current/History of A-Fib/PAF?: Yes Current Oral Anticoagulant The: Yes Assessment /Plan Problems (1) Acute on chronic diastolic CHF (congestive heart failure) Status: Resolved Problem Text: Acute on chronic diastolic heart failure -Diuresis and volume management per nephrology team. Given underlying significant chronic kidney disease -Volume restriction 1200 mL daily -Daily weights, monitoring response therapy -Monitor electrolytes to keep potassium greater than 4 and magnesium greater than 2 -Discussed with cardiology and nephrology respectively . Consults appreciated. -Lasix and Diuril dosage for increased by nephrology and he put out 2 L of urinary output -Patient is in about 1.5 L in negative balance every day -Good D diuresis with current Lasix and Diuril. -Possibly patient will require hemodialysis once agreed by nephrology -Blood pressure under well control now. We'll continue clonidine 0.1 mg by mouth twice a day -His heart rate is also within 60s range and will continue Coreg and a smaller dose. 3.125 mg by mouth every 12 hours -Decreasing urine output progressively DC telemetry Will discuss with nephrology regarding plan for hemodialysis (2) Chronic kidney disease (CKD), stage III (moderate) Status: Chronic Problem Text: Chronic kidney disease stage IV -avoid nephrotoxic medications -Renal diet -Nephrology on the case -Diuresis has been initiated first before his decided to go ahead with hemodialysis (3) CAD (coronary artery disease) Status: Chronic Problem Text: CAD with angina -Cardiac biomarker troponin negative -Patient could have chest pain from coronary spasm with elevated blood pressure -Cardiac evaluation completed December 2017 negative for inducible ischemia -Cardiology consult appreciated and beta blockers has been added as well -Continue the CAD risk factor modifications. Aspirin, beta david, statin (4) Paroxysmal a-fib Status: Chronic Problem Text: Chronic atrial fibrillation -With high embolic score -Continue anticoagulation therapy with Xarelto -Rate control with Metoprolol succinate (5) Diabetes Status: Chronic Problem Text: Type 2 diabetes mellitus -Diabetic diet -Fingerstick checks prior to meals and at bedtime -Coverage with insulin per sliding scale protocol -Continue glipizide (6) Uncontrolled hypertension Problem Text: Patient refusing to take any kind of antihypertensive meds But agreed now to take clonidine 0.1 mg by mouth twice a day to reduce systolic blood pressure Further, as per nephrology's recommendation Plan/VTE VTE Prophylaxis Ordered?: Yes VS, I&O, 24H, Fishbone Vital Signs/I&O Vital Signs Date Time Temp Pulse Resp B/P (MAP) Pulse Ox O2 Delivery O2 Flow Rate FiO2 07/26/18 08:18 57 162/78 07/26/18 08:00 97.2 18 100 I&O- Last 24 Hours up to 6 AM 07/26/18 06:00 Intake Total 980 ml Output Total 1700 ml Balance -720 ml Laboratory Data 24H LABS Laboratory Tests 2 07/25/18 12:45: Bedside Glucose (Misc Panel) 146H 07/25/18 17:21: Bedside Glucose (Misc Panel) 160H 07/25/18 21:15: Bedside Glucose (Misc Panel) 145H 07/26/18 04:36: Nucleated Red Blood Cells % (auto) 0.0, Blood Urea Nitrogen 65H, Creatinine 3.56H, Sodium Level 138, Potassium Level 3.9, Chloride Level 102, Carbon Dioxide Level 31, Anion Gap 5L, Glomerular Filtration Rate 17.9L, Calcium Level 9.7, Phosphorus Level 4.2, Albumin 3.1L CBC/BMP Laboratory Tests 07/26/18 04:36 Red Blood Count 4.53, Mean Corpuscular Volume 91.8, Mean Corpuscular Hemoglobin 28.7, Mean Corpuscular Hemoglobin Concent 31.3 L, Red Cell Distribution Width 15.4 H, Anion Gap 5 L DINH RICH MD July 26, 2018 11:12
[2018-07-26 12:00] VITALS: BP 164/84
[2018-07-26] MEDS: LIDOCAINE 5% (LIDODERM) PATCH TD PRN (14:04)
[2018-07-26 16:00] VITALS: BP 160/86
[2018-07-26] MEDS: RIVAROXABAN 10 MG TAB (XARELTO) PO SCH (17:56)
[2018-07-26 20:00] VITALS: BP 126/60
[2018-07-26] MEDS: ATORVASTATIN 20 MG TAB PO SCH (21:20)
[2018-07-26] MEDS: LATANOPROST 0.005% OPHTH SOLN 2.5 ML OU SCH (21:22)
[2018-07-26] MEDS: **NOTE PATIENT COMMENT** MISC XX SCH (21:25)
[2018-07-26 23:59] VITALS: BP 130/70
[2018-07-27] MEDS: FUROSEMIDE 100 MG/10 ML VIAL (J1940) IV SCH ×2 (00:09→06:09)
[2018-07-27] MEDS: NITROGLYCERIN 2% OINT 1 GM *U/D* PKT TOP SCH ×6 (00:11→20:45)
[2018-07-27 04:00] VITALS: BP 134/70
[2018-07-27] MEDS: LEVOTHYROXINE 88MCG TABLET (0.088 MG) PO SCH (06:04)
[2018-07-27 06:10] LABS: CALCIUM LEVEL 9.1 MG/DL (8.8-10.2); CREATININE FOR GFR 3.51 MG/DL (0.70-1.30); GLOMERULAR FILTRATION RATE 18.2 (>42); URIC ACID 4.9 MG/DL (3.5-7.2)
[2018-07-27 08:00] VITALS: BP 168/88
[2018-07-27] MEDS: HumaLOG INSULIN (NovoLOG) PER UNIT SC SCH ×4 (09:13→21:00)
[2018-07-27] MEDS: POTASSIUM CHLORIDE 10 MEQ SR TABLET PO SCH ×2 (09:15→20:46)
[2018-07-27] MEDS: glipiZIDE XL 5 MG TABCR PO SCH (09:15)
[2018-07-27] MEDS: ALLOPURINOL 300 MG TAB PO SCH (09:15)
[2018-07-27] MEDS: MULTIVITAMINS/MINERALS THERAP 1 TAB PO SCH (09:15)
[2018-07-27] MEDS: cloNIDine 0.1 MG TAB PO SCH ×2 (09:15→20:46)
[2018-07-27] MEDS: ASPIRIN 81 MG ENTERIC TAB PO SCH (09:15)
[2018-07-27] MEDS: MIRALAX *UNIT DOSE* 17GM PACKET PO SCH (09:16)
[2018-07-27] MEDS: SODIUM CHLORIDE NASAL 0.65% SPRAY BTL (OCEAN) SCH ×3 (09:17→20:48)
[2018-07-27] MEDS: MUPIROCIN 2% OINT 22 GM TUBE TOP SCH ×2 (09:17→20:48)
[2018-07-27 09:51] LABS: BASO % 0.7 % (0.0-1.0); EOS # 0.2 10^3/uL (0.0-0.50); EOS % 3.9 % (0.0-3.0); HEMATOCRIT 39.2 % (42.0-52.0); HEMOGLOBIN 12.5 g/dl (13.5-17.5); LYMPH # 1.2 10^3/uL (1.5-4.5); MEAN CORPUSCULAR HEMOGLOBIN 29.5 pg (27.0-33.0); MEAN CORPUSCULAR HGB CONC 31.9 g/dl (32.0-36.5); MEAN CORPUSCULAR VOLUME 92.5 fl (80.0-96.0); MONO # 0.4 10^3/uL (0.0-0.8); MONO % 8.6 % (0.0-5.0); NEUTROPHILS # 2.5 10^3/uL (1.8-7.7); NEUTROPHILS % 58.6 % (36.0-66.0); PLATELET COUNT, AUTOMATED 161 10^3/uL (150-450); RED BLOOD COUNT 4.24 10^6/uL (4.30-6.10); WHITE BLOOD COUNT 4.3 10^3/uL (4.0-10.0)
[2018-07-27] MEDS: VITAMIN D 50,000 UNITS CAPSULE (ERGOCALCIFEROL 1.25MG) PO SCH (09:57)
[2018-07-27] MEDS: CARVedilol 3.125 MG TAB PO SCH (09:57)
[2018-07-27] MEDS ORDERED: TORSEMIDE 100 MG TAB PO ONE (10:00)
--- NOTE | 2018-07-27 10:09 | IPNPDOC ---
Subjective Date Seen The patient was seen on 07/27/18. Subjective Chief Complaint/HPI Patient is multiple questions. He does not wish his Coreg to be continued as per him, it was DC'd by Dr. Harden General: Denies: ROS Unobtainable, Chills, Night Sweats, Fatigue, Malaise, Normal Appetite, Other Symptoms Constitutional: Denies: Chills, Fever, Malaise, Night Sweats, Weakness, Fatigue, Weight Loss, Lethargy, Other Eyes: Denies: Pain, Vision change, Conjunctivae inflammation, Eyelid inflammation, Redness, Other ENT: Denies: Head Aches, Ear Pain, Dysphagia, Sinus Congestion, Post Nasal Drip, Sore Throat, Epistaxis, Other Symptoms Skin: Denies: Rash, Lesions, Jaundice, Bruising, Itching, Dry, Breakdown, Nail Changes, Other Cardiovascular: Reports: Edema; Denies: Chest Pain, Palpitations, Orthopnea, Paroxysmal Noc. Dyspnea, Lt Headedness, Other Symptoms Gastrointestinal: Denies: Nausea, Vomiting, Abdominal Pain, Diarrhea, Constipation, Melena, Hematochezia, Other Symptoms Genitourinary: Denies: Dysuria, Frequency, Incontinence, Hematuria, Retention, Other Symptoms Hematologic: Denies: Bruising, Bleeding Excessively, Petecchia, Purpura, Enlarged Lymph Nodes, Other Hematologic Endocrine: Denies: Polydipsia, Polyphagia, Polyuria, Heat Intolerance, Cold Intolerance, Other Endocrine Sx Musculoskeletal: Denies: Neck Pain, Back Pain, Shoulder Pain, Arm Pain, Hand Pain, Leg Pain, Foot Pain, Joint Pain, Muscle Pain, Spasms, Other Symptoms Neurological: Denies: Weakness, Numbness, Incoordination, Change in speech, Confusion, Seizures, Other Symptoms Objective Physical Examination General Exam: Positive: Alert, Cooperative, No Acute Distress Eye Exam: Positive: PERRLA, Conjunctiva & lids normal ENT Exam: Positive: Atraumatic, Mucous membr. moist/pink Neck Exam: Positive: Supple, JVD, thyromegaly Chest Exam: Positive: Clear to auscultation, Normal air movement Heart Exam: Positive: Rate Normal, Normal S1, Normal S2 Abdomen Exam: Positive: Normal bowel sounds, Tenderness, Hepatospenomegaly Extremity Exam: Positive: Edema (2+ bipedal edema below the both knees) Skin Exam: Positive: Nl turgor and temperature Neuro Exam: Positive: Normal Gait, Normal Speech Psych Exam: Positive: Mental status NL A-FIB/CHADSVASC A-FIB History Current/History of A-Fib/PAF?: Yes Current Oral Anticoagulant The: Yes Assessment /Plan Problems (1) Acute on chronic diastolic CHF (congestive heart failure) Status: Resolved Problem Text: Acute on chronic diastolic heart failure -Diuresis and volume management per nephrology team. Given underlying significant chronic kidney disease -Volume restriction 1200 mL daily -Daily weights, monitoring response therapy -Monitor electrolytes to keep potassium greater than 4 and magnesium greater than 2 -Discussed with cardiology and nephrology respectively . Consults appreciated. -Lasix and Diuril dosage for increased by nephrology and he put out 2 L of urinary output -Patient is in about 1.5 L in negative balance every day -Continue Lasix and Diuril, urine output has decreased unable to achieve goal -Possibly patient will require hemodialysis once agreed by nephrology -Blood pressure under well control now. We'll continue clonidine 0.1 mg by mouth twice a day -His heart rate is also within 60s range and will continue his continue Coreg as per patient's insistence and refusal to take it -Further plan as per nephrology whether patient requires HD sonar continue diuresis -All questions were answered. Patient also has a history of benign positional vertigo for which she feels dizziness. Reassurance was provided (2) Chronic kidney disease (CKD), stage III (moderate) Status: Chronic Problem Text: Chronic kidney disease stage IV -avoid nephrotoxic medications -Renal diet -Nephrology on the case -Diuresis has been initiated first before his decided to go ahead with hemodialysis (3) CAD (coronary artery disease) Status: Chronic Problem Text: CAD with angina -Cardiac biomarker troponin negative -Patient could have chest pain from coronary spasm with elevated blood pressure -Cardiac evaluation completed December 2017 negative for inducible ischemia -Cardiology consult appreciated and beta blockers has been added as well -Continue the CAD risk factor modifications. Aspirin, beta david, statin (4) Paroxysmal a-fib Status: Chronic Problem Text: Chronic atrial fibrillation -With high embolic score -Continue anticoagulation therapy with Xarelto -Rate control with Metoprolol succinate (5) Diabetes Status: Chronic Problem Text: Type 2 diabetes mellitus -Diabetic diet -Fingerstick checks prior to meals and at bedtime -Coverage with insulin per sliding scale protocol -Continue glipizide (6) Uncontrolled hypertension Problem Text: Patient refusing to take any kind of antihypertensive meds But agreed now to take clonidine 0.1 mg by mouth twice a day to reduce systolic blood pressure Further, as per nephrology's recommendation Plan/VTE VTE Prophylaxis Ordered?: Yes VS, I&O, 24H, Fishbone Vital Signs/I&O Vital Signs Date Time Temp Pulse Resp B/P (MAP) Pulse Ox O2 Delivery O2 Flow Rate FiO2 07/27/18 09:57 69 168/88 07/27/18 08:00 97.4 18 94 I&O- Last 24 Hours up to 6 AM 07/27/18 06:00 Intake Total 1140 ml Output Total 1625 ml Balance -485 ml Laboratory Data 24H LABS Laboratory Tests 2 07/26/18 11:45: Bedside Glucose (Misc Panel) 193H 07/26/18 16:42: Bedside Glucose (Misc Panel) 121H 07/26/18 21:13: Bedside Glucose (Misc Panel) 158H 07/27/18 05:13: Anion Gap 6L, Glomerular Filtration Rate 18.2L, Uric Acid 4.9, Blood Urea Nitrogen 70H, Creatinine 3.51H, Sodium Level 138, Potassium Level 4.0, Chloride Level 104, Carbon Dioxide Level 28, Calcium Level 9.1 07/27/18 09:19: Immature Granulocyte % (Auto) 0.2, White Blood Count 4.3, Red Blood Count 4.24L, Hemoglobin 12.5L, Hematocrit 39.2L, Mean Corpuscular Volume 92.5, Mean Corpuscular Hemoglobin 29.5, Mean Corpuscular Hemoglobin Concent 31.9L, Red Cell Distribution Width 15.6H, Platelet Count 161, Neutrophils (%) (Auto) 58.6, Lymphocytes (%) (Auto) 28.0, Monocytes (%) (Auto) 8.6H, Eosinophils (%) (Auto) 3.9H, Basophils (%) (Auto) 0.7, Neutrophils # (Auto) 2.5, Lymphocytes # (Auto) 1.2L, Monocytes # (Auto) 0.4, Eosinophils # (Auto) 0.2, Basophils # (Auto) 0.0, Nucleated Red Blood Cells % (auto) 0.0 CBC/BMP Laboratory Tests 07/27/18 05:13 Calcium Level 9.1 07/27/18 09:19 Red Blood Count 4.24 L, Mean Corpuscular Volume 92.5, Mean Corpuscular Hemoglo bin 29.5, Mean Corpuscular Hemoglobin Concent 31.9 L, Red Cell Distribution Width 15.6 H, Neutrophils (%) (Auto) 58.6, Lymphocytes (%) (Auto) 28.0, Monocytes (%) (Auto) 8.6 H, Eosinophils (%) (Auto) 3.9 H, Basophils (%) (Auto) 0.7, Neutrophils # (Auto) 2.5, Lymphocytes # (Auto) 1.2 L, Monocytes # (Auto) 0.4, Eosinophils # (Auto) 0.2, Basophils # (Auto) 0.0 DINH RICH MD July 27, 2018 10:09
[2018-07-27] MEDS: aMILoride 5 MG TAB PO SCH (10:30)
[2018-07-27 11:45] VITALS: BP 122/58
[2018-07-27 16:00] VITALS: BP 148/70
[2018-07-27] MEDS: RIVAROXABAN 10 MG TAB (XARELTO) PO SCH (17:42)
[2018-07-27] MEDS: TORSEMIDE 100 MG TAB PO SCH (17:43)
--- NOTE | 2018-07-27 18:20 | IPNPDOC ---
Text Note Date of Service The patient was seen on 07/26/18. NOTE Nephrology Service: Subjective: Patient seen and examined at bedside. Is very anxious as usual. No acute overnight events reported. Denies fevers, chills, chest pain, SOB, nausea, vomiting, abdominal pain, diarrhea, constipation. Still concerned about swelling in his legs. His kidney function has improved a little today. Objective: Vitals: T 97.2 P 85 RR 18 BP 162/78 Pulse Ox: 100% room air Weight: 91.3 kg yesterday and 90.6 kg today Intake: 780 ml Output: 1150 ml Balance: (-) 370 ml UO: 0.52 mL/kg/hr GENERAL APPEARANCE: Pleasant and cooperative adult male lying comfortably in bed. Awake, alert, oriented x 3. HEENT: NCAT. Sclera nonicteric. NECK: Supple. Mild JVD. RESPIRATORY: Clear to Auscultation bilaterally. No wheezes/rales/rhonchi. CARDIOVASCULAR: Normal S1S2, regular rate, regular rhythm, no murmurs appreciated. ABDOMEN: Soft, nondistended. Mild tenderness to palpation of RUQ region. No ascites. EXTREMITIES: (+)1 pitting edema of lower extremities bilaterally. INTEGUMENTARY: No rashes or lesions noted. NEUROLOGICAL: Appropriate mentation. No focal neurologic deficits appreciated on inspection. PSYCHIATRIC: Appropriate mood and affect. No signs of overt depression/anxiety. Laboratory data: CBC: WBC 4.7, Hgb 13, Platelets 195 BMP: Na 138, K 3.9, CO2 31, BUN 65, Cr 3.56, GFR 17.9, Glucose 114, Ca 9.7, Phos 4.2, Albumin 3.1 (L) Imaging: No new imaging today. Current Inpatient Medications: Lasix 80 mg q6h IV Carvedilol 3.125 mg vid Clonidine 0.1 mg BID Allopurinol 300 mg PO daily Aspirin 81 mg PO daily Xarelto 10 mg PO daily Carvedilol went from 6.25 mg q12H to 3.125 mg q12H Simethicone 80 mg q6H PRN gas pain No other medication changes noted today. Assessment/Plan: 1. Acute renal failure superimposed on chronic kidney disease stage IV with solitary L kidney: Patient's GREGORY is secondary to diuresis and negative fluid balance. Patient's hypervolemia has improved and patient had less edema in lower extremities, mild JVD as well. Kidney function today slightly improved from yesterday. Will continue to monitor renal function for recovery. Will monitor for need for dialysis. No urgent need for dialysis at the present time however due to improvement in kidney function. 2. Hypervolemia/leg edema: Stable and improving. Continue diuresis with lasix 80 mg q6h IV. Volume status improving. Goal is a negative fluid balance of 1.5 liters per day. 3. Hypokalemia: Potassium level WNL at 3.9. Continue supplemental potassium of 20 mEq BID. Continue to monitor BMP. 4. Hypertension: Patient's BP elevated today in the 160s systolic. Carvedilol dosing was changed by primary team from 6.25 mg BID to 3.125 mg BID due to concern from bradycardia it seems according to Hospitalist note. I would consider increasing dose back to 6.25 mg for more optimal BP control. HR was 88 this AM. Will continue to monitor and recommend adjusting therapy as necessary. 5. Paroxysmal Atrial Fibrillation: Rate controlled with carvedilol and anticoagulated with xarelto. Continue current regimen. My preceptor for this patient encounter was Dr. Joseph Wilson, and was physically present in the building during the encounter and was fully available. As needed, all aspects of the patient interview, examination, medical decision making process, and medical care plan development were reviewed and approved by the preceptor. Preceptor is aware and concurs with the plan as stated in the body of this note and will attest to such by his/her cosignature. A-FIB/CHADSVASC A-FIB History Current/History of A-Fib/PAF?: Yes Current Oral Anticoagulant The: Yes VS,Fishbone, I+O VS, Fishbone, I+O Laboratory Tests 07/26/18 04:36 Red Blood Count 4.53, Mean Corpuscular Volume 91.8, Mean Corpuscular Hemoglobin 28.7, Mean Corpuscular Hemoglobin Concent 31.3 L, Red Cell Distribution Width 15.4 H, Anion Gap 5 L Vital Signs Date Time Temp Pulse Resp B/P (MAP) Pulse Ox O2 Delivery O2 Flow Rate FiO2 07/26/18 21:25 59 126/60 07/26/18 20:00 97.5 18 99 I&O- Last 24 Hours up to 6 AM 07/26/18 06:00 Intake Total 980 ml Output Total 1700 ml Balance -720 ml CAMILO HUGGINS DO July 26, 2018 22:30
--- NOTE | 2018-07-27 18:34 | IPNPDOC ---
Text Note Date of Service The patient was seen on 07/27/18. NOTE Nephrology Service: Subjective: Patient seen and examined at bedside. Is very anxious as usual. Is worried that the etiology of his edema is from his taking carvedilol. However, he is reassured that his edema has to do with renal failure and not medication side effect and verbalizes understanding. No acute overnight events reported. Denies fevers, chills, chest pain, SOB, nausea, vomiting, abdominal pain, diarrhea, constipation. Still concerned about swelling in his legs as usual. His kidney function has improved a little today. Objective: Vitals: T 97.4 P 69 RR 18 BP 168/88 Pulse Ox: 94% room air Weight: 90.6 kg yesterday and 92.9 kg today Intake: 1280 ml Output: 1750 ml Balance: (-) 470 ml UO: 0.80 mL/kg/hr GENERAL APPEARANCE: Pleasant and cooperative adult male sitting up comfortably in chair. Awake, alert, oriented x 3. PSYCHIATRIC: Anxious mood, euthymic affect. HEENT: NCAT. Sclera nonicteric. NECK: Supple. RESPIRATORY: Clear to Auscultation bilaterally. No wheezes/rales/rhonchi. CARDIOVASCULAR: Normal S1S2, regular rate, regular rhythm, no murmurs appreciated. ABDOMEN: Soft, nondistended, nontender. No ascites. EXTREMITIES: (+)2 pitting edema of lower extremities bilaterally. INTEGUMENTARY: No rashes or lesions noted. NEUROLOGICAL: Appropriate mentation. No focal neurologic deficits appreciated on inspection. Laboratory data: CBC: WBC 4.3, Hgb 12.5, Platelets 161 BMP: Na 138, K 4.0, CO2 28, BUN 70, Cr 3.51, GFR 18.2, Glucose 141, Ca 9.1 Imaging: No new imaging today. Current Inpatient Medications: Lasix 80 mg q6h IV Carvedilol 3.125 mg BID Clonidine 0.1 mg BID Allopurinol 300 mg PO daily Aspirin 81 mg PO daily Xarelto 10 mg PO daily Carvedilol went from 6.25 mg q12H to 3.125 mg q12H Simethicone 80 mg q6H PRN gas pain No other medication changes noted today. Assessment/Plan: 1. Acute renal failure superimposed on chronic kidney disease stage IV with solitary L kidney: Patient's GREGORY is secondary to diuresis. Patient's hypervolemia has improved. Kidney function improved from yesterday and GFR improved--both heading in the right direction slowly but surely. Have discontinued IV lasix today and begun patient on torsemide 100 mg BID and amiloride 5 mg PO daily (home diuretics). Will see how he tolerates this today and reevaluate tomorrow. Will continue to monitor renal function for recovery. Will monitor for need for dialysis. No urgent need for dialysis at the present time however due to improvement in kidney function. 2. Hypervolemia/leg edema: Stable and improving. Continue diuresis with PO torsemide and amiloride. Volume status improving. Goal is a negative fluid balance of 1.5 liters per day. 3. Hypokalemia: Potassium level WNL at 4.0. Continue supplemental potassium of 20 mEq BID. Continue to monitor BMP. 4. Hypertension: Patient's BP elevated today in the 160s systolic. Carvedilol dosing was changed by primary team from 6.25 mg BID to 3.125 mg BID due to concern from bradycardia it seems according to Hospitalist note. I would consider increasing dose back to 6.25 mg for more optimal BP control. HR was 88 this AM. Will continue to monitor and recommend adjusting therapy as necessary. 5. Paroxysmal Atrial Fibrillation: Rate controlled with carvedilol and anticoag ulated with xarelto. Continue current regimen. My preceptor for this patient encounter was Dr. Joseph Wilson, and was physically present in the building during the encounter and was fully available. As needed, all aspects of the patient interview, examination, medical decision making process, and medical care plan development were reviewed and approved by the preceptor. Preceptor is aware and concurs with the plan as stated in the body of this note and will attest to such by his/her cosignature. A-FIB/CHADSVASC A-FIB History Current/History of A-Fib/PAF?: Yes Current Oral Anticoagulant The: Yes VS,Fishbone, I+O VS, Fishbone, I+O Laboratory Tests 07/27/18 05:13 Calcium Level 9.1 07/27/18 09:19 Red Blood Count 4.24 L, Mean Corpuscular Volume 92.5, Mean Corpuscular Hemoglobin 29.5, Mean Corpuscular Hemoglobin Concent 31.9 L, Red Cell Distribution Width 15.6 H, Neutrophils (%) (Auto) 58.6, Lymphocytes (%) (Auto) 28.0, Monocytes (%) (Auto) 8.6 H, Eosinophils (%) (Auto) 3.9 H, Basophils (%) (Auto) 0.7, Neutrophils # (Auto) 2.5, Lymphocytes # (Auto) 1.2 L, Monocytes # (Auto) 0.4, Eosinophils # (Auto) 0.2, Basophils # (Auto) 0.0 Vital Signs Date Time Temp Pulse Resp B/P (MAP) Pulse Ox O2 Delivery O2 Flow Rate FiO2 07/27/18 16:24 148/70 07/27/18 16:00 97.8 53 18 99 I&O- Last 24 Hours up to 6 AM 07/27/18 06:00 Intake Total 1140 ml Output Total 1625 ml Balance -485 ml CAMILO HUGGINS DO July 27, 2018 18:34
[2018-07-27 20:00] VITALS: BP 136/76
[2018-07-27] MEDS: ATORVASTATIN 20 MG TAB PO SCH (20:46)
[2018-07-27] MEDS: LATANOPROST 0.005% OPHTH SOLN 2.5 ML OU SCH (20:48)
[2018-07-27] MEDS: **NOTE PATIENT COMMENT** MISC XX SCH (21:00)
[2018-07-28] VITALS (7 sets, daily range): BP systolic 130–172; BP diastolic 66–82
[2018-07-28] MEDS: NITROGLYCERIN 2% OINT 1 GM *U/D* PKT TOP SCH ×7 (00:43→23:56)
[2018-07-28 05:34] LABS: BASO % 0.5 % (0.0-1.0); EOS # 0.2 10^3/uL (0.0-0.50); EOS % 3.7 % (0.0-3.0); HEMATOCRIT 35.2 % (42.0-52.0); HEMOGLOBIN 11.3 g/dl (13.5-17.5); LYMPH % 23.3 % (24.0-44.0); MEAN CORPUSCULAR HEMOGLOBIN 29.6 pg (27.0-33.0); MEAN CORPUSCULAR HGB CONC 32.1 g/dl (32.0-36.5); MEAN CORPUSCULAR VOLUME 92.1 fl (80.0-96.0); MONO # 0.4 10^3/uL (0.0-0.8); MONO % 9.3 % (0.0-5.0); NEUTROPHILS # 2.7 10^3/uL (1.8-7.7); PLATELET COUNT, AUTOMATED 137 10^3/uL (150-450); RED BLOOD COUNT 3.82 10^6/uL (4.30-6.10); WHITE BLOOD COUNT 4.3 10^3/uL (4.0-10.0)
[2018-07-28] MEDS: LEVOTHYROXINE 88MCG TABLET (0.088 MG) PO SCH (05:48)
[2018-07-28 05:53] LABS: CALCIUM LEVEL 9.4 MG/DL (8.8-10.2); CREATININE FOR GFR 3.63 MG/DL (0.70-1.30); GLOMERULAR FILTRATION RATE 17.5 (>42); POTASSIUM SERUM 4.1 MEQ/L (3.5-5.1)
[2018-07-28] MEDS: HumaLOG INSULIN (NovoLOG) PER UNIT SC SCH ×4 (09:17→21:00)
[2018-07-28] MEDS: TORSEMIDE 100 MG TAB PO SCH ×2 (09:17→17:58)
[2018-07-28] MEDS: glipiZIDE XL 5 MG TABCR PO SCH (09:17)
[2018-07-28] MEDS: aMILoride 5 MG TAB PO SCH (09:18)
[2018-07-28] MEDS: ASPIRIN 81 MG ENTERIC TAB PO SCH (09:18)
[2018-07-28] MEDS: ALLOPURINOL 300 MG TAB PO SCH (09:19)
[2018-07-28] MEDS: MIRALAX *UNIT DOSE* 17GM PACKET PO SCH (09:20)
[2018-07-28] MEDS: cloNIDine 0.1 MG TAB PO SCH ×2 (09:20→20:37)
[2018-07-28] MEDS: POTASSIUM CHLORIDE 10 MEQ SR TABLET PO SCH ×2 (09:20→20:36)
[2018-07-28] MEDS: MULTIVITAMINS/MINERALS THERAP 1 TAB PO SCH (09:20)
[2018-07-28] MEDS: SODIUM CHLORIDE NASAL 0.65% SPRAY BTL (OCEAN) SCH ×3 (09:21→23:30)
[2018-07-28] MEDS: LATANOPROST 0.005% OPHTH SOLN 2.5 ML OU SCH (09:21)
[2018-07-28] MEDS: MUPIROCIN 2% OINT 22 GM TUBE TOP SCH ×2 (09:22→23:30)
[2018-07-28] MEDS ORDERED: MUPI2OI TOP (10:23)
[2018-07-28] MEDS ORDERED: TORS100T PO (10:23)
[2018-07-28] MEDS ORDERED: CLONI1TA PO (10:23)
--- NOTE | 2018-07-28 10:36 | IPNPDOC ---
Subjective Date Seen The patient was seen on 07/28/18. Subjective Chief Complaint/HPI Patient complaining of dizziness and thinks the fluid has accumulated in his stomach. The but no shortness of breath, no chest pain. Legs are much improved with the swelling reduced General: Denies: ROS Unobtainable, Chills, Night Sweats, Fatigue, Malaise, Normal Appetite, Other Symptoms Constitutional: Denies: Chills, Fever, Malaise, Night Sweats, Weakness, Fatigue, Weight Loss, Lethargy, Other Eyes: Denies: Pain, Vision change, Conjunctivae inflammation, Eyelid inflammati on, Redness, Other ENT: Denies: Head Aches, Ear Pain, Dysphagia, Sinus Congestion, Post Nasal Drip, Sore Throat, Epistaxis, Other Symptoms Skin: Denies: Rash, Lesions, Jaundice, Bruising, Itching, Dry, Breakdown, Nail Changes, Other Cardiovascular: Reports: Edema Gastrointestinal: Denies: Nausea, Vomiting, Abdominal Pain, Diarrhea, Constipation, Melena, Hematochezia, Other Symptoms Genitourinary: Denies: Dysuria, Frequency, Incontinence, Hematuria, Retention, Other Symptoms Hematologic: Denies: Bruising, Bleeding Excessively, Petecchia, Purpura, Enlarged Lymph Nodes, Other Hematologic Endocrine: Denies: Polydipsia, Polyphagia, Polyuria, Heat Intolerance, Cold Intolerance, Other Endocrine Sx Musculoskeletal: Denies: Neck Pain, Back Pain, Shoulder Pain, Arm Pain, Hand Pain, Leg Pain, Foot Pain, Joint Pain, Muscle Pain, Spasms, Other Symptoms Neurological: Denies: Weakness, Numbness, Incoordination, Change in speech, Confusion, Seizures, Other Symptoms Psych: Denies: Mood Normal, Anxiety, Depression, Memory Issues, Thoughts of Self Harm, Anger, Thoughts of Harming Other, Other Psych Objective Physical Examination General Exam: Positive: Alert, Cooperative, No Acute Distress Eye Exam: Positive: PERRLA, Conjunctiva & lids normal ENT Exam: Positive: Atraumatic, Mucous membr. moist/pink Neck Exam: Positive: Supple, JVD, thyromegaly Chest Exam: Positive: Clear to auscultation, Normal air movement Heart Exam: Positive: Rate Normal, Normal S1, Normal S2 Abdomen Exam: Positive: Normal bowel sounds, Tenderness, Hepatospenomegaly Extremity Exam: Positive: Edema (2+ bipedal edema below the both knees) Skin Exam: Positive: Nl turgor and temperature Neuro Exam: Positive: Normal Gait, Normal Speech Psych Exam: Positive: Mental status NL A-FIB/CHADSVASC A-FIB History Current/History of A-Fib/PAF?: No Assessment /Plan Problems (1) Acute on chronic diastolic CHF (congestive heart failure) Status: Resolved Problem Text: Acute on chronic diastolic heart failure -Diuresis and volume management per nephrology team. Given underlying significant chronic kidney disease -Volume restriction 1200 mL daily -Daily weights, monitoring response therapy -Monitor electrolytes to keep potassium greater than 4 and magnesium greater than 2 -Discussed with cardiology and nephrology respectively . Consults appreciated. -Patient urine output goal is about 1.5 L in negative balance every day -Possibly patient will require hemodialysis once agreed by nephrology -Blood pressure under well control now. We'll continue clonidine 0.1 mg by mouth twice a day -His heart rate is also within 60s range and will discontinue Coreg as per patient's insistence and refusal to take it -Lasix has been changed to torsemide and amlioride has been continued with good urine output about 1 L yesterday -Discuss with Dr. Wilson is clear for discharge. I tried to discharge him today, but he felt home safety evaluation and will Give one more day before his discharge back home -All questions were answered. Patient also has a history of benign positional vertigo for which she feels dizziness. Reassurance was provided (2) Chronic kidney disease (CKD), stage III (moderate) Status: Chronic Problem Text: Chronic kidney disease stage IV -avoid nephrotoxic medications -Kidney function is improved with diuretics, will defer hemodialysis at this time -Renal diet -Nephrology on the case (3) CAD (coronary artery disease) Status: Chronic Problem Text: CAD with angina -Cardiac biomarker troponin negative -Patient could have chest pain from coronary spasm with elevated blood pressure -Cardiac evaluation completed December 2017 negative for inducible ischemia -Cardiology consult appreciated and beta blockers has been added as well -Continue the CAD risk factor modifications. Aspirin, beta david, statin (4) Paroxysmal a-fib Status: Chronic Problem Text: Chronic atrial fibrillation -With high embolic score -Continue anticoagulation therapy with Xarelto -Rate control with Metoprolol succinate (5) Diabetes Status: Chronic Problem Text: Type 2 diabetes mellitus -Diabetic diet -Fingerstick checks prior to meals and at bedtime -Coverage with insulin per sliding scale protocol -Continue glipizide (6) Uncontrolled hypertension Problem Text: Patient refusing to take any kind of antihypertensive meds But agreed now to take clonidine 0.1 mg by mouth twice a day to reduce systolic blood pressure Further, as per nephrology's recommendation Plan/VTE VTE Prophylaxis Ordered?: Yes VS, I&O, 24H, Fishbone Vital Signs/I&O Vital Signs Date Time Temp Pulse Resp B/P (MAP) Pulse Ox O2 Delivery O2 Flow Rate FiO2 07/28/18 09:20 172/82 07/28/18 08:00 97.9 58 16 100 I&O- Last 24 Hours up to 6 AM 07/28/18 06:00 Intake Total 600 ml Output Total 1075 ml Balance -475 ml Laboratory Data 24H LABS Laboratory Tests 2 07/27/18 11:32: Bedside Glucose (Misc Panel) 217H 07/27/18 16:26: Bedside Glucose (Misc Panel) 98 07/27/18 20:57: Bedside Glucose (Misc Panel) 235H 07/28/18 05:16: Immature Granulocyte % (Auto) 0.2, White Blood Count 4.3, Red Blood Count 3.82L, Hemoglobin 11.3L, Hematocrit 35.2L, Mean Corpuscular Volume 92.1, Mean Corpuscular Hemoglobin 29.6, Mean Corpuscular Hemoglobin Concent 32.1, Red Cell Distribution Width 15.5H, Platelet Count 137L, Neutrophils (%) (Auto) 63.0, Lymphocytes (%) (Auto) 23.3L, Monocytes (%) (Auto) 9.3H, Eosinophils (%) (Auto) 3.7H, Basophils (%) (Auto) 0.5, Neutrophils # (Auto) 2.7, Lymphocytes # (Auto) 1.0L, Monocytes # (Auto) 0.4, Eosinophils # (Auto) 0.2, Basophils # (Auto) 0.0, Nucleated Red Blood Cells % (auto) 0.0, Anion Gap 6L, Glomerular Filtration Rate 17.5L, Blood Urea Nitrogen 69H, Creatinine 3.63H, Sodium Level 140, Potassium Level 4.1, Chloride Level 105, Carbon Dioxide Level 29, Calcium Level 9.4 CBC/BMP Laboratory Tests 07/28/18 05:16 Red Blood Count 3.82 L, Mean Corpuscular Volume 92.1, Mean Corpuscular Hemoglobi n 29.6, Mean Corpuscular Hemoglobin Concent 32.1, Red Cell Distribution Width 15.5 H, Neutrophils (%) (Auto) 63.0, Lymphocytes (%) (Auto) 23.3 L, Monocytes (%) (Auto) 9.3 H, Eosinophils (%) (Auto) 3.7 H, Basophils (%) (Auto) 0.5, Neutrophils # (Auto) 2.7, Lymphocytes # (Auto) 1.0 L, Monocytes # (Auto) 0.4, Eosinophils # (Auto) 0.2, Basophils # (Auto) 0.0, Calcium Level 9.4 DINH RICH MD July 28, 2018 10:36
[2018-07-28] MEDS: ACETAMINOPHEN TAB 650MG DOSE (2X325MG) PO PRN (10:57)
--- NOTE | 2018-07-28 13:09 | IPN ---
DATE OF VISIT: 07/28/2018 Mr. Willson is seen this morning on his bedside. He is not feeling well at the time of my visit. He reports that he just walked a short distance with the physical therapist and felt very dizzy. He was brought back to the room, and his blood pressure was tested, and it was 191/92 mmHg sitting. We stood him up to check the blood pressure. However, he felt very dizzy and had to sit down. After resting for several minutes, we stood him up again and checked blood pressure, and it was 198/92 mmHg. He denies any chest pain, dyspnea, and his leg edema is improving. There is no nausea or vomiting. On physical examination, temperature 97.9 degrees Fahrenheit, heart rate 58 per minute, and respiratory rate 16 per minute. Blood pressure earlier was 172/82 mmHg and oxygen saturation 100% on room air. Intake and output records from yesterday were negative by 940 mL, and his weight is down to 89.6 kg. His head is atraumatic. Neck is supple and without jugular venous distention (JVD) or thyroid enlargement. There is no oral thrush or ulcers. Heart sounds are regular. Lungs clear to auscultation. Abdomen soft and nontender, and bowel sounds are normal. Extremities have no cyanosis or clubbing. Lower extremity edema is about 1+. Neurologically, he is awake, alert, and oriented times three. Today's laboratories show WBC count 4.3, hemoglobin 11.3, and hematocrit 35.2, platelets 137. Sodium 140, potassium 4.1, CO2 29, BUN 69, and creatinine 3.63, glucose 192, and calcium 9.4. PROBLEMS: 1. Acute renal failure superimposed on chronic kidney disease. No significant change in kidney function over last 4 days. His glomerular filtration rate (GFR) has been between 17 and 18 mL. He does not have any uremic symptoms, and there is no emergent need for dialysis. We will continue to monitor his kidney function on daily basis. 2. Hypertension. Blood pressure was doing well until this morning. No changes have been made, and blood pressure seems to be much higher today. This is probably related to anxiety, and we will watch it without any changes. His volume status has improved significantly. 3. Anemia. This is mild and stable, and there is no need for any intervention. 4. Dizziness and weakness. I am not sure why he felt dizzy, as there was no orthostatic change in his blood pressure even at the time he was symptomatic, his blood pressure was quite high. He also failed his home safety evaluation, so we will watch him for 1 more day. If he feels well, then probably he can be discharged to home tomorrow. DISPOSITION: The patient has been informed about possible discharge plans for tomorrow. He will need to work with physical therapist and try to pass his home safety evaluation.
[2018-07-28] MEDS: RIVAROXABAN 10 MG TAB (XARELTO) PO SCH (17:59)
[2018-07-28] MEDS: ATORVASTATIN 20 MG TAB PO SCH (20:36)
[2018-07-28] MEDS: **NOTE PATIENT COMMENT** MISC XX SCH (21:00)
[2018-07-28] MEDS ORDERED: metOLazone 5 MG TAB PO ONE (21:00)
[2018-07-29 02:00] VITALS: BP 168/74
[2018-07-29] MEDS: NITROGLYCERIN 2% OINT 1 GM *U/D* PKT TOP SCH ×5 (05:26→20:41)
[2018-07-29] MEDS: LEVOTHYROXINE 88MCG TABLET (0.088 MG) PO SCH (05:55)
[2018-07-29 06:00] VITALS: BP 140/82
[2018-07-29 06:33] LABS: BASO % 0.7 % (0.0-1.0); EOS # 0.2 10^3/uL (0.0-0.50); EOS % 4.3 % (0.0-3.0); HEMATOCRIT 35.2 % (42.0-52.0); HEMOGLOBIN 11.2 g/dl (13.5-17.5); LYMPH # 1.1 10^3/uL (1.5-4.5); LYMPH % 26.3 % (24.0-44.0); MEAN CORPUSCULAR HGB CONC 31.8 g/dl (32.0-36.5); MEAN CORPUSCULAR VOLUME 91.2 fl (80.0-96.0); MONO # 0.5 10^3/uL (0.0-0.8); MONO % 10.7 % (0.0-5.0); NEUTROPHILS # 2.4 10^3/uL (1.8-7.7); NEUTROPHILS % 57.8 % (36.0-66.0); PLATELET COUNT, AUTOMATED 145 10^3/uL (150-450); RED BLOOD COUNT 3.86 10^6/uL (4.30-6.10); WHITE BLOOD COUNT 4.2 10^3/uL (4.0-10.0)
[2018-07-29 06:59] LABS: ALBUMIN 2.9 GM/DL (3.2-5.2); CALCIUM LEVEL 10.2 MG/DL (8.8-10.2); CREATININE FOR GFR 3.7 MG/DL (0.70-1.30); GLOMERULAR FILTRATION RATE 17.1 (>42); POTASSIUM SERUM 4.2 MEQ/L (3.5-5.1)
[2018-07-29] MEDS: HumaLOG INSULIN (NovoLOG) PER UNIT SC SCH ×4 (07:30→20:41)
[2018-07-29] MEDS: MIRALAX *UNIT DOSE* 17GM PACKET PO SCH (08:32)
[2018-07-29] MEDS: TORSEMIDE 100 MG TAB PO SCH ×2 (08:32→16:35)
[2018-07-29] MEDS: cloNIDine 0.1 MG TAB PO SCH ×2 (08:34→20:41)
[2018-07-29] MEDS: MULTIVITAMINS/MINERALS THERAP 1 TAB PO SCH (08:34)
[2018-07-29] MEDS: ALLOPURINOL 300 MG TAB PO SCH (08:34)
[2018-07-29] MEDS: ASPIRIN 81 MG ENTERIC TAB PO SCH (08:34)
[2018-07-29] MEDS: aMILoride 5 MG TAB PO SCH (08:35)
[2018-07-29] MEDS: MUPIROCIN 2% OINT 22 GM TUBE TOP SCH ×2 (08:35→20:42)
[2018-07-29] MEDS: POTASSIUM CHLORIDE 10 MEQ SR TABLET PO SCH ×2 (08:35→20:40)
[2018-07-29] MEDS: SODIUM CHLORIDE NASAL 0.65% SPRAY BTL (OCEAN) SCH ×3 (08:35→20:42)
[2018-07-29] MEDS: glipiZIDE XL 5 MG TABCR PO SCH (08:35)
[2018-07-29 10:00] VITALS: BP 144/80
[2018-07-29] MEDS: LIDOCAINE 5% (LIDODERM) PATCH TD PRN (11:11)
[2018-07-29] MEDS: SIMETHICONE 80 MG CHEW TAB PO PRN (11:12)
[2018-07-29 14:00] VITALS: BP 142/82
--- NOTE | 2018-07-29 16:01 | IPN ---
DATE: 07/29/2018 Mr. Willson is seen this morning on his bedside. He is sitting at the edge of the bed getting ready for his breakfast. He reports a good amount of urine output since he was given one dose of metolazone last evening. He has been on oral torsemide 100 mg twice a day. He was initially admitted with massive lower extremity edema and hypervolemia. Since admission, his volume status has improved significantly as he was diuresed with intravenous Lasix in high-dose. He does have advanced stage IV of chronic kidney disease with only a solitary kidney. He had a prior nephrectomy due to renal cell carcinoma about 20 years ago. PHYSICAL EXAMINATION: Temperature 97 degrees Fahrenheit, heart rate 60 per minute and respiratory rate 18 per minute. Blood pressure is now down to 140/80 mmHg and oxygen saturation is 100% on room air. Intake and output record from yesterday was slightly positive. However, this morning, he has so far almost 1600 mL of urine output. His weight is down to 88.8 kg, while his admission weight was about 97 kg. His head is atraumatic. Neck is supple and without jugular venous distention (JVD) or thyroid enlargement. Heart sounds are regular. Lungs are clear to auscultation. Abdomen is soft and nontender. Bowel sounds are normal. Extremities have no cyanosis or clubbing. Lower extremity edema is now down to about 1+. Neurologically, he is at his baseline mentation without a focal deficit. LABORATORY DATA: Today's laboratories show WBC count 4.2, hemoglobin 11.2 and hematocrit 35.2. Sodium 142, potassium 4.2, CO2 29, BUN 67 and creatinine 3.70. Glucose 144 and calcium 10.2. PROBLEMS: 1. Acute renal failure superimposed on chronic kidney disease. No significant change in kidney function over the last five days. His glomerular filtration rate (GFR) has been between 17 and 19 mL. At this point, there is no emergent indication for dialysis. I have explained to the patient that he is very much likely to require dialysis within the next 6-12 months. He already had a vein mapping done of his arm for arteriovenous (AV) fistula and will be referred to vascular surgery for AV fistula creation. 2. Hypervolemia. His volume status has improved significantly and he should continue with torsemide 100 mg twice a day. He is also on fluid restriction of 1500 mL per day which should be continued even as an outpatient. 3. Hypertension. The patient also had uncontrolled hypertension on admission which has improved significantly with adjustment in his medications and diuresis. Now after correction of his volume status, his blood pressure is likely to stabilize. I would suggest to discontinue the Nitropaste as he gets dizzy when he stands up with Nitropaste. We can probably increase the dose of amlodipine to 10 mg if needed. DISPOSITION: From a renal standpoint, the patient can be discharged to home and followup with our office next week.
--- NOTE | 2018-07-29 16:40 | IPNPDOC ---
Date Seen The patient was seen on 07/29/18. Progress Note SUBJECTIVE: Patient still reports feeling dizzy with walking. Denies any other complaints. Complains of weakness but only had one day of PT, started yesterday. OBJECTIVE PHYSICAL EXAMINATION: VITAL SIGNS: Please see below. General: No acute distress, Alert Eyes: Normal sclera, EOMI, EBONY HENT: Atraumatic, neck supple, moist mucous membranes Cardiovascular: Normal rate, normal rhythm. No murmurs appreciated. Pulmonary: Clear to auscultation b/l, no wheezing GI: Soft, nontender, nondistended Skin: Warm and dry Neuro: CN grossly intact. No focal deficits. Strengths equal b/l. Generalized weakness. Psych: oriented x 3 LABORATORY DATA, IMAGING STUDIES, MICROBIOLOGY: Please see below. DVT prophylaxis ordered?: Xarelto ASSESSMENT AND PLAN: 1. Acute on Chronic HFpEF - Had been diuresed with significant weight reduction. - c/w volume restriction. - Nephrology following. Urine output goal 1.5L negative balance, likely can be less at this time given patient less hypervolemic than prior? - Possible will require HD in near future. - HR in 50-60s range and Coreg discontinued as patient had been refusing to take it. 2. CKD Stage III - Monitor daily BMPs. - nephrology following. - Renal diet. 3. CAD - resume home meds. - Coreg had been held as his HR in 50-60s and patient refusing to take. 4. A fib - c/w Xarelto. - Switched to Coreg rate controlled with holding parameters <60 BPM. - Had been ranging in 50-60s. 5. DM Type 2 - Accuchecks. - ISS and Glipizide. - Diabetic diet. 6. HTN - Relatively controlled on Clonidine .1 mg BID. - Was refusing to take any medications for this prior. DISPOSITION: Likely home once more stable and less dizzy, anticipate in the next 2-3 days once cleared by PT. A-FIB/CHADSVASC A-FIB History Current/History of A-Fib/PAF?: Yes Current Oral Anticoagulant The: Yes VS, I&O, 24H, Fishbone Vital Signs/I&O Vital Signs Date Time Temp Pulse Resp B/P (MAP) Pulse Ox O2 Delivery O2 Flow Rate FiO2 07/29/18 14:00 97.9 56 18 142/82 (102) 99 I&O- Last 24 Hours up to 6 AM 07/29/18 06:00 Intake Total 1440 ml Output Total 2150 ml Balance -710 ml Laboratory Data 24H LABS Laboratory Tests 2 07/28/18 20:37: Bedside Glucose (Misc Panel) 131H 07/29/18 05:16: Bedside Glucose (Misc Panel) 143H 07/29/18 05:48: Blood Urea Nitrogen 67H, Creatinine 3.70H, Sodium Level 142, Potassium Level 4.2, Chloride Level 105, Carbon Dioxide Level 29, Anion Gap 8, Glomerular Filtration Rate 17.1L, Calcium Level 10.2, Phosphorus Level 4.0, Albumin 2.9L 07/29/18 05:51: Immature Granulocyte % (Auto) 0.2, White Blood Count 4.2, Red Blood Count 3.86L, Hemoglobin 11.2L, Hematocrit 35.2L, Mean Corpuscular Volume 91.2, Mean Corpuscular Hemoglobin 29.0, Mean Corpuscular Hemoglobin Concent 31.8L, Red Cell Distribution Width 15.6H, Platelet Count 145L, Neutrophils (%) (Auto) 57.8, Lymphocytes (%) (Auto) 26.3, Monocytes (%) (Auto) 10.7H, Eosinophils (%) (Auto) 4.3H, Basophils (%) (Auto) 0.7, Neutrophils # (Auto) 2.4, Lymphocytes # (Auto) 1.1L, Monocytes # (Auto) 0.5, Eosinophils # (Auto) 0.2, Basophils # (Auto) 0.0, Nucleated Red Blood Cells % (auto) 0.0 07/29/18 11:43: Bedside Glucose (Misc Panel) 158H CBC/BMP Laboratory Tests 07/29/18 05:48 Anion Gap 8 07/29/18 05:51 Red Blood Count 3.86 L, Mean Corpuscular Volume 91.2, Mean Corpuscular Hemoglobin 29.0, Mean Corpuscular Hemoglobin Concent 31.8 L, Red Cell Distribution Width 15.6 H, Neutrophils (%) (Auto) 57.8, Lymphocytes (%) (Auto) 26.3, Monocytes (%) (Auto) 10.7 H, Eosinophils (%) (Auto) 4.3 H, Basophils (%) (Auto) 0.7, Neutrophils # (Auto) 2.4, Lymphocytes # (Auto) 1.1 L, Monocytes # (Auto) 0.5, Eosinophils # (Auto) 0.2, Basophils # (Auto) 0.0 NOAH ANTHONY MD July 29, 2018 16:40
[2018-07-29] MEDS: RIVAROXABAN 10 MG TAB (XARELTO) PO SCH (18:14)
[2018-07-29] MEDS: ACETAMINOPHEN TAB 650MG DOSE (2X325MG) PO PRN (18:53)
[2018-07-29] MEDS: ATORVASTATIN 20 MG TAB PO SCH (20:40)
[2018-07-29] MEDS: **NOTE PATIENT COMMENT** MISC XX SCH (20:42)
[2018-07-29] MEDS: LATANOPROST 0.005% OPHTH SOLN 2.5 ML OU SCH (20:42)
[2018-07-29 22:00] VITALS: BP 140/72
[2018-07-29] MEDS: PERCOCET 5MG/325MG TAB PO PRN (22:25)
[2018-07-30] MEDS: NITROGLYCERIN 2% OINT 1 GM *U/D* PKT TOP SCH ×3 (00:13→08:18)
[2018-07-30 02:00] VITALS: BP 140/80
[2018-07-30] MEDS: LEVOTHYROXINE 88MCG TABLET (0.088 MG) PO SCH (05:56)
[2018-07-30 05:58] LABS: BASO % 0.9 % (0.0-1.0); EOS # 0.2 10^3/uL (0.0-0.50); EOS % 4.4 % (0.0-3.0); HEMOGLOBIN 11.4 g/dl (13.5-17.5); LYMPH # 1.4 10^3/uL (1.5-4.5); LYMPH % 31.6 % (24.0-44.0); MEAN CORPUSCULAR HEMOGLOBIN 29.2 pg (27.0-33.0); MEAN CORPUSCULAR HGB CONC 31.7 g/dl (32.0-36.5); MEAN CORPUSCULAR VOLUME 92.3 fl (80.0-96.0); MONO # 0.5 10^3/uL (0.0-0.8); MONO % 11.8 % (0.0-5.0); NEUTROPHILS # 2.2 10^3/uL (1.8-7.7); NEUTROPHILS % 50.8 % (36.0-66.0); PLATELET COUNT, AUTOMATED 137 10^3/uL (150-450); WHITE BLOOD COUNT 4.3 10^3/uL (4.0-10.0)
[2018-07-30 06:00] VITALS: BP 132/78
[2018-07-30] MEDS: ALLOPURINOL 300 MG TAB PO SCH (08:15)
[2018-07-30] MEDS: glipiZIDE XL 5 MG TABCR PO SCH (08:16)
[2018-07-30] MEDS: MULTIVITAMINS/MINERALS THERAP 1 TAB PO SCH (08:16)
[2018-07-30] MEDS: ASPIRIN 81 MG ENTERIC TAB PO SCH (08:16)
[2018-07-30] MEDS: TORSEMIDE 100 MG TAB PO SCH ×2 (08:16→08:49)
[2018-07-30] MEDS: cloNIDine 0.1 MG TAB PO SCH ×2 (08:16→20:48)
[2018-07-30] MEDS: POTASSIUM CHLORIDE 10 MEQ SR TABLET PO SCH ×2 (08:17→20:49)
[2018-07-30] MEDS: aMILoride 5 MG TAB PO SCH (08:17)
[2018-07-30] MEDS: MIRALAX *UNIT DOSE* 17GM PACKET PO SCH (08:18)
[2018-07-30] MEDS: SODIUM CHLORIDE NASAL 0.65% SPRAY BTL (OCEAN) SCH ×3 (08:28→20:49)
[2018-07-30] MEDS: HumaLOG INSULIN (NovoLOG) PER UNIT SC SCH ×4 (08:28→20:49)
[2018-07-30] MEDS: MUPIROCIN 2% OINT 22 GM TUBE TOP SCH ×2 (08:28→20:49)
[2018-07-30 10:00] VITALS: BP 156/76
[2018-07-30 10:49] LABS: ALBUMIN 3.1 GM/DL (3.2-5.2); CALCIUM LEVEL 9.6 MG/DL (8.8-10.2); CREATININE FOR GFR 3.89 MG/DL (0.70-1.30); GLOMERULAR FILTRATION RATE 16.2 (>42); PHOSPHORUS LEVEL 4.2 MG/DL (2.5-4.9); POTASSIUM SERUM 3.6 MEQ/L (3.5-5.1)
--- NOTE | 2018-07-30 12:50 | IPNPDOC ---
Text Note Date of Service The patient was seen on 07/30/18. NOTE Subjective: Patient is a 73-year-old male with a PMHx of HTN, CAD s/p CABG (2006), Chronic A. fib, Diastolic CHF, DM2, Hypothyroidism, CKD4, Hx of Renal CA, Cervical spinal stenosis, GERD, who presented to the emergency room with complaints of shortness of breath and weakness. Patient has reported that he was following with his med asst for fluid management, ultimately patient did not have improvement and was sent to emergency room for further evaluation. Patient was admitted to hospitalist service for further evaluation and treatment. Nephrology and Cardiology were called on consultation. Patient was seen and examined at the bedside. Currently patient has noted some dizziness with ambulation. He reports some SOB. Also, significantly improved from the point of arrival, he denies any chest pain or palpitations. He also reports his lower extremities are consistent significantly better. Denies any nausea, vomiting, abdominal pain has extensive regular bowel movements. Denies any discomfort with urination. Objective: Vitals (See below) General: Lying in bed, no acute distress, comfortable, AAOx3 HEENT: NC, AT, no appreciable JVD CVS: RRR, +S1S2 Lungs: Fair air entry b/l, upon auscultation, there does not appear to be any evidence of wheezing, rhonchi or rales Abdomen: Soft, ND, NT Extremities: Does not appear to have any significant edema, - Calf tenderness Assessment and plan: Shortness of breath - likely 2/2 acute on chronic Diastolic CHF - Clinically has reported significant improvement in his breathing - Physical does not appear show any significant signs of fluid overload - ECHO 07/20: EF 70%, Moderate pulmonary HTN, - c/w Amiloride and Torsemide as per Nephrology; will hold today's morning dose (re: dizziness) - Nephrology and Cardiology on consultation CKD3 - Baseline Cr of 1.8-2.0 - Nephrology on consultation CAD s/p CABG - c/w ASA, Atorvastatin Chronic A fib - s/p rate control with carvedilol - c/w full anticoagulation with Xarelto. HTN - BP has been better controlled - c/w Clonidine and Nitroglycerine Ointment DM2 - c/w ISS and Glipizide Hypothyroidism - c/w Levothyroxine DVT prophylaxis - c/w full anticoagulation with Xarelto Disposition: - Will continue to work with physical therapy; awaiting clearance VSSadiq, I+O VSSadiq, I+O Laboratory Tests 07/30/18 04:50 Red Blood Count 3.90 L, Mean Corpuscular Volume 92.3, Mean Corpuscular Hemoglobin 29.2, Mean Corpuscular Hemoglobin Concent 31.7 L, Red Cell Distribution Width 15.5 H, Neutrophils (%) (Auto) 50.8, Lymphocytes (%) (Auto) 31.6, Monocytes (%) (Auto) 11.8 H, Eosinophils (%) (Auto) 4.4 H, Basophils (%) (Auto) 0.9, Neutrophils # (Auto) 2.2, Lymphocytes # (Auto) 1.4 L, Monocytes # (Auto) 0.5, Eosinophils # (Auto) 0.2, Basophils # (Auto) 0.0 07/30/18 09:43 Anion Gap 7 L Vital Signs Date Time Temp Pulse Resp B/P (MAP) Pulse Ox O2 Delivery O2 Flow Rate FiO2 07/30/18 10:00 96.7 55 15 156/76 (102) 99 I&O- Last 24 Hours up to 6 AM 07/30/18 06:00 Intake Total 910 ml Output Total 2425 ml Balance -1515 ml RUSSELL CARTAGENA MD July 30, 2018 12:50
--- NOTE | 2018-07-30 13:50 | IPNPDOC ---
Text Note Date of Service The patient was seen on 07/30/18. NOTE Nephrology Service: Subjective: Patient seen and examined at bedside. Is doing better today. Reports still feeling dizzy at times however. Still receiving nitropaste, which is likely the cause of his dizziness. In addition, he is receiving torsemide 100 mg BID. Patient reports overall improvement in his edema and is happy with this. He did receive a one time dose of metolazone 5 mg on 07/28 at 2100. Patient otherwise reports no acute overnight events. Denies fevers, chills, chest pain, SOB, nausea, vomiting, abdominal pain, diarrhea, constipation. Creatinine went a bit up today and GFR went down. Objective: Vitals: T 96.7 P 56 RR 16 BP 132/78 Pulse Ox: 98% room air Weight: 88.8 kg yesterday and 87.4 kg today Intake: 910 ml Output: 2875 ml Balance: (-) 1965 ml UO: 1.35 mL/kg/hr GENERAL APPEARANCE: Pleasant and cooperative adult male lying comfortably in bed. Awake, alert, oriented x 3. PSYCHIATRIC: Normal mood, euthymic affect. HEENT: NCAT. Sclera nonicteric. NECK: Supple. No JVD appreciable today. RESPIRATORY: Clear to Auscultation bilaterally. No wheezes/rales/rhonchi. CARDIOVASCULAR: Normal S1S2, bradycardic rate, regular rhythm, no murmurs appreciated. ABDOMEN: Soft, nondistended, nontender. No ascites. EXTREMITIES: trace to 1 (+) pitting edema of lower extremities bilaterally. INTEGUMENTARY: No rashes or lesions noted. NEUROLOGICAL: Appropriate mentation. No focal neurologic deficits appreciated on inspection. Laboratory data: CBC: WBC 4.3, Hgb 11.4, Platelets 137 BMP: Na 141, K 3.6, CO2 31, BUN 75, Cr 3.89, GFR 16.2, Glucose 148, Ca 9.6, Phos 4.2 Imaging: No new imaging today. Current Inpatient Medications: Amiloride 5 mg PO daily Percocet 5/325 mg 1 tab q6h PRN PO mild/mod pain Clonidine 0.1 mg BID Potassium Chloride 20 mEq PO BID Allopurinol 300 mg PO daily Xarelto 10 mg PO daily Lidocaine (Lidoderm patch) 1 patch daily PRN TD Nitroglycerin (Nitrostat 1/150) 0.4 mg q5mp PRN SL chest pain Discontinued Medications: Stopped Nitropaste Today: Nitroglycerin (Nitrobid 2%) 1 inch q4h topical Medication Changes: Torsemide 100 mg PO BID on hold until 5 PM tomorrow due to dizziness and declining renal fx. Assessment/Plan: 1. Acute renal failure superimposed on chronic kidney disease stage IV with solitary L kidney: Patient's GREGORY is secondary to diuresis. Patient's hypervolemia has improved. Kidney function is stable and has declined a bit today with a higher Cr of 3.89 today from 3.70 yesterday. Torsemide held today due to decline in renal function and dizziness. Will restart at 5 PM tomorrow. Is on amiloride 5 mg PO daily (home diuretics). Will see how he tolerates this today and reevaluate tomorrow. Will continue to monitor renal function for recovery. Will monitor for need for dialysis. No urgent need for dialysis at the present time due to fairly stable kidney function. 2. Hypervolemia/leg edema: Stable and improving. Held torsemide until 5 PM tomorrow. Continue diuresis with amiloride for now. Volume status improving. Goal is a negative fluid balance of 1.5 liters per day. Fluid restriction of 1500 mL per day which should be continued as an outpatient. 3. Hypokalemia: Potassium level WNL at 3.6. Continue supplemental potassium of 20 mEq BID. Continue to monitor BMP. 4. Hypertension: Patient's BP WNL today at 132/78 this AM. Continue amiloride, clonidine. Will continue to monitor and recommend adjusting therapy as necessary. Held diuretic torsemide until 5 PM tomorrow due to decline in renal function and patient's dizziness. Also discontinued his nitropaste due to dizziness. Will see if dizziness improves with these changes. 5. Paroxysmal Atrial Fibrillation: Rate controlled (a bit bradycardic in the 50s however) and patient anticoagulated with xarelto. No longer on carvedilol however. Continue current regimen and continue to monitor HR. My preceptor for this patient encounter was Dr. Joseph Wilson, and was physically present in the building during the encounter and was fully available. As needed, all aspects of the patient interview, examination, medical decision making process, and medical care plan development were reviewed and approved by the preceptor. Preceptor is aware and concurs with the plan as stated in the body of this note and will attest to such by his/her cosignature. A-FIB/CHADSVASC A-FIB History Current/History of A-Fib/PAF?: Yes Current Oral Anticoagulant The: Yes VS,Fishbone, I+O VS, Fishbone, I+O Laboratory Tests 07/30/18 04:50 Red Blood Count 3.90 L, Mean Corpuscular Volume 92.3, Mean Corpuscular Hemoglobi n 29.2, Mean Corpuscular Hemoglobin Concent 31.7 L, Red Cell Distribution Width 15.5 H, Neutrophils (%) (Auto) 50.8, Lymphocytes (%) (Auto) 31.6, Monocytes (%) (Auto) 11.8 H, Eosinophils (%) (Auto) 4.4 H, Basophils (%) (Auto) 0.9, Neutrophils # (Auto) 2.2, Lymphocytes # (Auto) 1.4 L, Monocytes # (Auto) 0.5, Eosinophils # (Auto) 0.2, Basophils # (Auto) 0.0 07/30/18 09:43 Anion Gap 7 L Vital Signs Date Time Temp Pulse Resp B/P (MAP) Pulse Ox O2 Delivery O2 Flow Rate FiO2 07/30/18 10:00 96.7 55 15 156/76 (102) 99 I&O- Last 24 Hours up to 6 AM 07/30/18 06:00 Intake Total 910 ml Output Total 2425 ml Balance -1515 ml CAMILO HUGGINS DO July 30, 2018 13:50
[2018-07-30 14:00] VITALS: BP 149/68
[2018-07-30 18:00] VITALS: BP 156/84
[2018-07-30] MEDS: RIVAROXABAN 10 MG TAB (XARELTO) PO SCH (18:34)
[2018-07-30] MEDS: ATORVASTATIN 20 MG TAB PO SCH (20:48)
[2018-07-30] MEDS: LATANOPROST 0.005% OPHTH SOLN 2.5 ML OU SCH (20:49)
[2018-07-30] MEDS: **NOTE PATIENT COMMENT** MISC XX SCH (21:00)
[2018-07-31 02:00] VITALS: BP 128/70
[2018-07-31] MEDS: LEVOTHYROXINE 88MCG TABLET (0.088 MG) PO SCH (05:44)
[2018-07-31] MEDS: ACETAMINOPHEN TAB 650MG DOSE (2X325MG) PO PRN ×2 (05:54→12:53)
[2018-07-31 06:00] VITALS: BP 148/60
[2018-07-31 06:01] LABS: BASO % 0.6 % (0.0-1.0); EOS # 0.2 10^3/uL (0.0-0.50); EOS % 4.2 % (0.0-3.0); HEMATOCRIT 38.4 % (42.0-52.0); HEMOGLOBIN 12.1 g/dl (13.5-17.5); LYMPH # 1.2 10^3/uL (1.5-4.5); LYMPH % 23.1 % (24.0-44.0); MEAN CORPUSCULAR HEMOGLOBIN 29.2 pg (27.0-33.0); MEAN CORPUSCULAR HGB CONC 31.5 g/dl (32.0-36.5); MEAN CORPUSCULAR VOLUME 92.5 fl (80.0-96.0); MONO # 0.5 10^3/uL (0.0-0.8); MONO % 10.1 % (0.0-5.0); NEUTROPHILS # 3.1 10^3/uL (1.8-7.7); NEUTROPHILS % 61.8 % (36.0-66.0); PLATELET COUNT, AUTOMATED 139 10^3/uL (150-450); RED BLOOD COUNT 4.15 10^6/uL (4.30-6.10)
[2018-07-31 06:13] LABS: CALCIUM LEVEL 9.6 MG/DL (8.8-10.2); CREATININE FOR GFR 3.86 MG/DL (0.70-1.30); GLOMERULAR FILTRATION RATE 16.3 (>42); POTASSIUM SERUM 3.8 MEQ/L (3.5-5.1)
[2018-07-31] MEDS: aMILoride 5 MG TAB PO SCH (09:31)
[2018-07-31] MEDS: cloNIDine 0.1 MG TAB PO SCH ×2 (09:31→21:24)
[2018-07-31] MEDS: ALLOPURINOL 300 MG TAB PO SCH (09:31)
[2018-07-31] MEDS: MIRALAX *UNIT DOSE* 17GM PACKET PO SCH (09:32)
[2018-07-31] MEDS: glipiZIDE XL 5 MG TABCR PO SCH (09:32)
[2018-07-31] MEDS: POTASSIUM CHLORIDE 10 MEQ SR TABLET PO SCH ×2 (09:32→21:24)
[2018-07-31] MEDS: ASPIRIN 81 MG ENTERIC TAB PO SCH (09:32)
[2018-07-31] MEDS: MULTIVITAMINS/MINERALS THERAP 1 TAB PO SCH (09:32)
[2018-07-31] MEDS: LIDOCAINE 5% (LIDODERM) PATCH TD PRN (09:33)
[2018-07-31] MEDS: HumaLOG INSULIN (NovoLOG) PER UNIT SC SCH ×4 (09:33→21:00)
[2018-07-31] MEDS: MUPIROCIN 2% OINT 22 GM TUBE TOP SCH ×2 (09:37→21:25)
[2018-07-31] MEDS: SODIUM CHLORIDE NASAL 0.65% SPRAY BTL (OCEAN) SCH ×3 (09:37→21:25)
[2018-07-31 10:00] VITALS: BP 142/79
--- NOTE | 2018-07-31 11:27 | IPNPDOC ---
Text Note Date of Service The patient was seen on 07/31/18. NOTE Subjective: Patient is a 73-year-old male with a PMHx of HTN, CAD s/p CABG (2006), Chronic A. fib, Diastolic CHF, DM2, Hypothyroidism, CKD4, Hx of Renal CA, Cervical spinal stenosis, GERD, who presented to the emergency room with complaints of shortness of breath and weakness. Patient has reported that he was following with his mapping engineer for fluid management, ultimately patient did not have improvement and was sent to emergency room for further evaluation. Patient was admitted to hospitalist service for further evaluation and treatment. Nephrology and Cardiology were called on consultation. Patient was seen and examined at the bedside. Patient reports that she has been ambulating and has not experienced any significant amount dizziness. Denies chest pain or shortness of breath. Reports his lower extremity swelling is doing significantly better. Has not chest pain or palpitations. I have advised him that we will be resuming his diuretics this afternoon. Denies abdominal pain, diarrhea, or urinary discomfort. Objective: Vitals (See below) General: Lying in bed, no acute distress, comfortable, AAOx3 HEENT: NC, AT, no appreciable JVD CVS: RRR, +S1S2 Lungs: Air entry is fair bilaterally without evidence of rhonchi, rales or wheezing upon auscultation Abdomen: Soft, nondistended, without tenderness Extremities: trace pitting edema, - Calf tenderness Assessment and plan: Shortness of breath - likely 2/2 acute on chronic Diastolic CHF - Clinically has reported significant improvement in his breathing and LE swelling - Physical does not appear show any significant signs of fluid overload - ECHO 07/20: EF 70%, Moderate pulmonary HTN, - c/w Amiloride and Torsemide as per Nephrology; will resume Torsemide later today - Nephrology and Cardiology on consultation Elevation of Cr on CKD3 - possibly 2/2 progression of CKD - Baseline Cr of 1.8-2.0 - Cr has been elevated from baseline - Nephrology on consultation CAD s/p CABG - s/p Carvedilol - c/w ASA, Atorvastatin Chronic A fib - s/p rate control - c/w full anticoagulation with Xarelto. HTN - BP has been better controlled - s/p Nitropaste - c/w Clonidine DM2 - c/w ISS and Glipizide Hypothyroidism - c/w Levothyroxine DVT prophylaxis - c/w full anticoagulation with Xarelto Disposition: - Will continue to work with physical therapy; awaiting clearance - Anticipate discharge tomorrow if cleared by PT Sadiq GOLDBERG, I+O VSSadiq I+O Laboratory Tests 07/31/18 05:17 Red Blood Count 4.15 L, Mean Corpuscular Volume 92.5, Mean Corpuscular Hemoglobin 29.2, Mean Corpuscular Hemoglobin Concent 31.5 L, Red Cell Distribution Width 15.4 H, Neutrophils (%) (Auto) 61.8, Lymphocytes (%) (Auto) 23.1 L, Monocytes (%) (Auto) 10.1 H, Eosinophils (%) (Auto) 4.2 H, Basophils (%) (Auto) 0.6, Neutrophils # (Auto) 3.1, Lymphocytes # (Auto) 1.2 L, Monocytes # (Auto) 0.5, Eosinophils # (Auto) 0.2, Basophils # (Auto) 0.0, Calcium Level 9.6 Vital Signs Date Time Temp Pulse Resp B/P (MAP) Pulse Ox O2 Delivery O2 Flow Rate FiO2 07/31/18 10:00 96.7 79 16 142/79 (100) 100 I&O- Last 24 Hours up to 6 AM 07/31/18 06:00 Intake Total 620 ml Output Total 2500 ml Balance -1880 ml RUSSELL CARTAGENA MD July 31, 2018 11:27
[2018-07-31 14:00] VITALS: BP 152/79
[2018-07-31 18:00] VITALS: BP 119/72
[2018-07-31] MEDS: RIVAROXABAN 10 MG TAB (XARELTO) PO SCH (18:04)
--- NOTE | 2018-07-31 20:52 | IPN ---
DATE: 07/31/2018 Mr. Willson is seen and examined this morning sitting out of bed to the chair and eating a meal. He reports that he felt pretty good until he had the morning dose of clonidine and after that he felt that he had a dry mouth and dizziness. PHYSICAL EXAMINATION: Temperature 98.0 degrees , pulse 66, respiratory rate 16, blood pressure 148/60, saturating 99% on room air. Intake yesterday was not fully recorded. Urine output yesterday was 2.8 liters. Weight on the bed scale today is 86.8 kg, which is decreased from prior. GENERAL: The patient is seen sitting out of bed to the chair, eating his meal, awake, alert and oriented. In no acute distress. Extraocular muscles are intact. Tongue is moist. Jugular veins are not elevated. Heart sounds are regular. Lungs are clear to auscultation. No crackles or rales. Abdomen is soft and nontender. There are bowel sounds. Extremities have 1+ edema on the left lower extremity and only trace edema on the right. Neurologic: He is at his baseline mentation. Psychiatric: He is very anxious. LABORATORIES: White count 5.0, hemoglobin 12.1, sodium 141, potassium 3.8, bicarbonate 29, BUN 76, creatinine 3.8. INPATIENT MEDICATIONS: Reviewed by myself. No changes from prior. PROBLEMS: 1. Chronic kidney disease stage IV with downtrend in GFR from around 22 mL per minute down to about 16 mL per minute. This is likely reflective of the improvement in volume status. His weight is down 10 kg over the course of this admission. He understands that he is anticipated to have dialysis needs in the future. He has already had vein mapping done and will see vascular surgery as an outpatient for fistula creation. There are no uremic signs or symptoms. His electrolytes are otherwise acceptable. There is no indication for dialysis initiation at this time. Continue with medical management of progressive chronic kidney disease. 2. Diastolic congestive heart failure (CHF) and right hear failure. Volume status has improved nicely over the course of this admission. His weights have overall down trended by 10 kg. I am going to hold his torsemide again today as he continues to be in significant net negative fluid balance with down trending weights and has complaints of dizziness. His potassium level is acceptable and he continues on amiloride, I have ordered a magnesium level for the morning. 3. Hypertension with complaints of recurrent dizziness. Hold the torsemide for another day given the down trending weights and daily net negative fluid balance. He is receiving clonidine 0.1 mg by mouth twice a day for blood pressure control. With improvement in his volume status, his blood pressure has likewise improved. 4. Atrial fibrillation. The patient is presently rate controlled and he is anticoagulated with low dose Xarelto.
[2018-07-31] MEDS: ATORVASTATIN 20 MG TAB PO SCH (21:23)
[2018-07-31] MEDS: LATANOPROST 0.005% OPHTH SOLN 2.5 ML OU SCH (21:24)
[2018-07-31] MEDS: **NOTE PATIENT COMMENT** MISC XX SCH (21:25)
[2018-07-31 22:00] VITALS: BP 127/70
[2018-08-01 02:00] VITALS: BP 134/68
[2018-08-01 05:55] LABS: BASO % 0.5 % (0.0-1.0); EOS # 0.2 10^3/uL (0.0-0.50); HEMATOCRIT 38.9 % (42.0-52.0); HEMOGLOBIN 12.4 g/dl (13.5-17.5); LYMPH # 1.1 10^3/uL (1.5-4.5); LYMPH % 25.7 % (24.0-44.0); MEAN CORPUSCULAR HEMOGLOBIN 29.5 pg (27.0-33.0); MEAN CORPUSCULAR HGB CONC 31.9 g/dl (32.0-36.5); MEAN CORPUSCULAR VOLUME 92.4 fl (80.0-96.0); MONO # 0.4 10^3/uL (0.0-0.8); MONO % 9.7 % (0.0-5.0); NEUTROPHILS # 2.5 10^3/uL (1.8-7.7); NEUTROPHILS % 58.9 % (36.0-66.0); PLATELET COUNT, AUTOMATED 146 10^3/uL (150-450); RED BLOOD COUNT 4.21 10^6/uL (4.30-6.10); WHITE BLOOD COUNT 4.2 10^3/uL (4.0-10.0)
[2018-08-01 06:00] VITALS: BP 138/68
[2018-08-01] MEDS: LEVOTHYROXINE 88MCG TABLET (0.088 MG) PO SCH (06:05)
[2018-08-01] MEDS: ACETAMINOPHEN TAB 650MG DOSE (2X325MG) PO PRN ×2 (06:05→10:15)
[2018-08-01 06:19] LABS: CALCIUM LEVEL 9.7 MG/DL (8.8-10.2); CREATININE FOR GFR 3.92 MG/DL (0.70-1.30); MAGNESIUM LEVEL 2.8 MG/DL (1.8-2.4); POTASSIUM SERUM 4.3 MEQ/L (3.5-5.1)
[2018-08-01] MEDS: HumaLOG INSULIN (NovoLOG) PER UNIT SC SCH ×4 (08:10→21:00)
[2018-08-01] MEDS: POTASSIUM CHLORIDE 10 MEQ SR TABLET PO SCH (09:36)
[2018-08-01] MEDS: ALLOPURINOL 300 MG TAB PO SCH (09:36)
[2018-08-01] MEDS: ASPIRIN 81 MG ENTERIC TAB PO SCH (09:36)
[2018-08-01] MEDS: MIRALAX *UNIT DOSE* 17GM PACKET PO SCH (09:36)
[2018-08-01] MEDS: cloNIDine 0.1 MG TAB PO SCH ×2 (09:40→21:54)
[2018-08-01] MEDS: MULTIVITAMINS/MINERALS THERAP 1 TAB PO SCH (09:41)
[2018-08-01] MEDS: aMILoride 5 MG TAB PO SCH (09:41)
[2018-08-01] MEDS: SODIUM CHLORIDE NASAL 0.65% SPRAY BTL (OCEAN) SCH ×3 (09:41→21:19)
[2018-08-01] MEDS: MUPIROCIN 2% OINT 22 GM TUBE TOP SCH ×2 (09:42→21:19)
[2018-08-01] MEDS: glipiZIDE XL 5 MG TABCR PO SCH (09:50)
--- NOTE | 2018-08-01 10:51 | IPNPDOC ---
Text Note Date of Service The patient was seen on 08/01/18. NOTE Subjective: Patient is a 73-year-old male with a PMHx of HTN, CAD s/p CABG (2006), Chronic A. fib, Diastolic CHF, DM2, Hypothyroidism, CKD4, Hx of Renal CA, Cervical spinal stenosis, GERD, who presented to the emergency room with complaints of shortness of breath and weakness. 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 Patient was admitted to hospitalist service for further evaluation and treatment. Nephrology and Cardiology were called on consultation. Patient was seen and examined at the bedside. Patient continues to report symptoms of dizziness. Denies any loss of consciousness. Denies shortness of breath, chest pain or palpitations. Reports his lower extremities are still doing significantly well. Denies any abdominal pain, nausea, constipation, or discomfort with urination. Patient will be working with physical therapy today. Objective: Vitals (See below) General: Lying in bed, no acute distress, comfortable, AAOx3 HEENT: NC, AT, no appreciable JVD CVS: RRR, +S1S2 Lungs: Air entry is fair bilaterally. No evidence of rhonchi, wheezing or rales Abdomen: Soft, ND without tenderness Extremities: trace pitting edema, - Calf tenderness Assessment and plan: Shortness of breath - likely 2/2 acute on chronic Diastolic CHF - Clinically has reported significant improvement in his breathing and LE swelling - Physical does not appear show any significant signs of fluid overload - ECHO 07/20: EF 70%, Moderate pulmonary HTN, - c/w Amiloride and Torsemide as per Nephrology; - Nephrology and Cardiology on consultation Elevation of Cr on CKD3 - possibly 2/2 progression of CKD - Baseline Cr of 1.8-2.0 - Cr has been elevated from baseline - Nephrology on consultation CAD s/p CABG - s/p Carvedilol - c/w ASA, Atorvastatin Chronic A fib - s/p rate control - c/w full anticoagulation with Xarelto. HTN - BP has been better controlled - s/p Nitro-paste - c/w Clonidine DM2 - c/w ISS and Glipizide Hypothyroidism - c/w Levothyroxine DVT prophylaxis - c/w full anticoagulation with Xarelto Disposition: - Patient has not yet cleared physical therapy - awaiting clearance VS,Fishbone, I+O VS, Fishbone, I+O Laboratory Tests 08/01/18 05:40 Red Blood Count 4.21 L, Mean Corpuscular Volume 92.4, Mean Corpuscular Hemoglobin 29.5, Mean Corpuscular Hemoglobin Concent 31.9 L, Red Cell Distribution Width 15.4 H, Neutrophils (%) (Auto) 58.9, Lymphocytes (%) (Auto) 25.7, Monocytes (%) (Auto) 9.7 H, Eosinophils (%) (Auto) 5.0 H, Basophils (%) (Auto) 0.5, Neutrophils # (Auto) 2.5, Lymphocytes # (Auto) 1.1 L, Monocytes # (Auto) 0.4, Eosinophils # (Auto) 0.2, Basophils # (Auto) 0.0, Calcium Level 9.7 Vital Signs Date Time Temp Pulse Resp B/P (MAP) Pulse Ox O2 Delivery O2 Flow Rate FiO2 08/01/18 09:40 122/72 08/01/18 06:00 97.4 59 1 100 I&O- Last 24 Hours up to 6 AM 08/01/18 06:00 Intake Total 940 ml Output Total 1350 ml Balance -410 ml RUSSELL CARTAGENA MD August 01, 2018 10:51
[2018-08-01] MEDS: LIDOCAINE 5% (LIDODERM) PATCH TD PRN (12:44)
[2018-08-01 14:00] VITALS: BP 144/82
[2018-08-01] MEDS: TORSEMIDE (DEMADEX) 50 MG PER 1/2 TAB PO SCH (17:03)
[2018-08-01] MEDS: RIVAROXABAN 10 MG TAB (XARELTO) PO SCH (17:03)
[2018-08-01] MEDS: PERCOCET 5MG/325MG TAB PO PRN (17:04)
[2018-08-01 18:45] VITALS: BP 159/79
[2018-08-01] MEDS: **NOTE PATIENT COMMENT** MISC XX SCH (21:00)
[2018-08-01] MEDS: ATORVASTATIN 20 MG TAB PO SCH (21:19)
[2018-08-01] MEDS: LATANOPROST 0.005% OPHTH SOLN 2.5 ML OU SCH (21:19)
[2018-08-01 22:00] VITALS: BP 170/80
[2018-08-02 02:00] VITALS: BP 160/76
[2018-08-02] MEDS: LEVOTHYROXINE 88MCG TABLET (0.088 MG) PO SCH (05:50)
[2018-08-02 05:54] LABS: BASO % 0.9 % (0.0-1.0); EOS # 0.2 10^3/uL (0.0-0.50); EOS % 5.2 % (0.0-3.0); HEMATOCRIT 35.7 % (42.0-52.0); HEMOGLOBIN 11.4 g/dl (13.5-17.5); LYMPH # 1.2 10^3/uL (1.5-4.5); LYMPH % 27.8 % (24.0-44.0); MEAN CORPUSCULAR HGB CONC 31.9 g/dl (32.0-36.5); MEAN CORPUSCULAR VOLUME 90.8 fl (80.0-96.0); MONO # 0.5 10^3/uL (0.0-0.8); MONO % 10.6 % (0.0-5.0); NEUTROPHILS # 2.5 10^3/uL (1.8-7.7); NEUTROPHILS % 55.3 % (36.0-66.0); PLATELET COUNT, AUTOMATED 134 10^3/uL (150-450); RED BLOOD COUNT 3.93 10^6/uL (4.30-6.10); WHITE BLOOD COUNT 4.4 10^3/uL (4.0-10.0)
[2018-08-02 06:00] VITALS: BP 140/80
[2018-08-02 06:23] LABS: CALCIUM LEVEL 9.7 MG/DL (8.8-10.2); CREATININE FOR GFR 3.68 MG/DL (0.70-1.30); GLOMERULAR FILTRATION RATE 17.2 (>42); POTASSIUM SERUM 4.1 MEQ/L (3.5-5.1)
[2018-08-02] MEDS: ACETAMINOPHEN TAB 650MG DOSE (2X325MG) PO PRN (06:54)
[2018-08-02] MEDS: ASPIRIN 81 MG ENTERIC TAB PO SCH (07:56)
[2018-08-02] MEDS: TORSEMIDE (DEMADEX) 50 MG PER 1/2 TAB PO SCH ×2 (07:56→17:32)
[2018-08-02] MEDS: cloNIDine 0.1 MG TAB PO SCH ×2 (07:57→21:07)
[2018-08-02] MEDS: POTASSIUM CHLORIDE 10 MEQ SR TABLET PO SCH (07:58)
[2018-08-02] MEDS: HumaLOG INSULIN (NovoLOG) PER UNIT SC SCH ×4 (07:58→21:00)
[2018-08-02] MEDS: glipiZIDE XL 5 MG TABCR PO SCH (07:58)
[2018-08-02] MEDS: MULTIVITAMINS/MINERALS THERAP 1 TAB PO SCH (07:59)
[2018-08-02] MEDS: aMILoride 5 MG TAB PO SCH (07:59)
[2018-08-02] MEDS: ALLOPURINOL 300 MG TAB PO SCH (07:59)
[2018-08-02] MEDS: MIRALAX *UNIT DOSE* 17GM PACKET PO SCH (07:59)
[2018-08-02] MEDS: SODIUM CHLORIDE NASAL 0.65% SPRAY BTL (OCEAN) SCH ×3 (07:59→21:08)
[2018-08-02] MEDS: MUPIROCIN 2% OINT 22 GM TUBE TOP SCH ×2 (08:00→21:09)
--- NOTE | 2018-08-02 08:12 | IPNPDOC ---
Text Note Date of Service The patient was seen on 08/01/18. NOTE Nephrology Service: Subjective: Patient seen and examined at bedside. Still feeling dizzy when he gets up. Physical therapist still has to clear patient for home safety. Patient reports overall improvement in his edema and is happy with this. Patient otherwise reports no acute overnight events. Denies fevers, chills, chest pain, SOB, nausea, vomiting, abdominal pain, diarrhea, constipation. Creatinine went a bit up today and GFR went down. Objective: Vitals: T 97.4 P 59 RR 15 BP 138/68 Pulse Ox: 100% room air Weight: 86.8 kg yesterday and 86.9 kg today Intake: 980 ml Output: 1350 ml Balance: (-) 370 ml UO: 0.65 mL/kg/hr GENERAL APPEARANCE: Pleasant and cooperative adult male lying comfortably in bed. Awake, alert, oriented x 3. PSYCHIATRIC: Normal mood, euthymic affect. HEENT: NCAT. Sclera nonicteric. NECK: Supple. No JVD appreciable today. RESPIRATORY: Clear to Auscultation bilaterally. No wheezes/rales/rhonchi. CARDIOVASCULAR: Normal S1S2, bradycardic rate, regular rhythm, no murmurs appreciated. ABDOMEN: Soft, nondistended, nontender. No ascites. EXTREMITIES: trace L > R pitting edema of lower extremities bilaterally. INTEGUMENTARY: No rashes or lesions noted. NEUROLOGICAL: Appropriate mentation. No focal neurologic deficits appreciated on inspection. Laboratory data: CBC: WBC 4.2, Hgb 12.4, Platelets 146 BMP: Na 142, K 4.3, CO2 28, BUN 78, Cr 3.92, GFR 16, Glucose 169, Ca 9.7, Magnesium: 2.8 (H) Imaging: No new imaging today. Current Inpatient Medications: Amiloride 5 mg PO daily Percocet 5/325 mg 1 tab q6h PRN PO mild/mod pain Clonidine 0.1 mg BID Potassium Chloride 20 mEq PO BID Allopurinol 300 mg PO daily Xarelto 10 mg PO daily Lidocaine (Lidoderm patch) 1 patch daily PRN TD Nitroglycerin (Nitrostat 1/150) 0.4 mg q5mp PRN SL chest pain Discontinued Medications: Discontinuing Clonidine today. Medication Changes: Adding Torsemide 50 mg PO BID at 5 PM. Assessment/Plan: 1. Acute renal failure superimposed on chronic kidney disease stage IV with solitary L kidney: Progression of CKD IV. Patient's GREGORY is secondary to diuresis. Patient's hypervolemia has improved. Renal function is stable and has declined a bit today with a higher Cr of 3.92 today from 3.86 yesterday. Clonidine discontinued today due to dizziness. Is on amiloride 5 mg PO daily (home diuretics). Will start torsemide at lower dose at 50 mg tonight at 5 PM and continue 50 mg BID. Will see how he tolerates this today and reevaluate tomorrow. Will continue to monitor renal function for recovery. Will monitor for need for dialysis. No urgent need for dialysis at the present time due to fairly stable kidney function. 2. Hypervolemia/leg edema: Stable and improving. Restart torsemide at lower dose of 50 mg at 5 PM tomorrow. Continue diuresis with amiloride for now. Volume status improving. Goal is a negative fluid balance of 1.5 liters per day. Fluid restriction of 1500 mL per day which should be continued as an outpatient. 3. Hypokalemia: Potassium level WNL at 4.3. Continue supplemental potassium of 20 mEq BID. Continue to monitor BMP. 4. Hypertension: Patient's BP WNL today at 138/68 this AM. Continue amiloride. Due to patient still feeling dizzy, will discontinue clonidine and see how he does off of this. Will continue to monitor and recommend adjusting therapy as necessary. Will restart lower dose of torsemide at 50 mg BID starting tonight. Will see if dizziness improves with these changes. 5. Paroxysmal Atrial Fibrillation: Rate controlled (a bit bradycardic in the 50s however) and patient anticoagulated with xarelto. Continue current regimen and continue to monitor HR. My preceptor for this patient encounter was Dr. Natasha Wilson, and was physically present in the building during the encounter and was fully available. As needed, all aspects of the patient interview, examination, medical decision making process, and medical care plan development were reviewed and approved by the preceptor. Preceptor is aware and concurs with the plan as stated in the body of this note and will attest to such by his/her cosignature. A-FIB/CHADSVASC A-FIB History Current/History of A-Fib/PAF?: Yes Current Oral Anticoagulant The: Yes VS,Fishbone, I+O VS, Fishbone, I+O Laboratory Tests 08/01/18 05:40 Red Blood Count 4.21 L, Mean Corpuscular Volume 92.4, Mean Corpuscular Hemoglobin 29.5, Mean Corpuscular Hemoglobin Concent 31.9 L, Red Cell Distribution Width 15.4 H, Neutrophils (%) (Auto) 58.9, Lymphocytes (%) (Auto) 25.7, Monocytes (%) (Auto) 9.7 H, Eosinophils (%) (Auto) 5.0 H, Basophils (%) (Auto) 0.5, Neutrophils # (Auto) 2.5, Lymphocytes # (Auto) 1.1 L, Monocytes # (Auto) 0.4, Eosinophils # (Auto) 0.2, Basophils # (Auto) 0.0, Calcium Level 9.7 Vital Signs Date Time Temp Pulse Resp B/P (MAP) Pulse Ox O2 Delivery O2 Flow Rate FiO2 08/01/18 09:40 122/72 08/01/18 06:00 97.4 59 1 100 I&O- Last 24 Hours up to 6 AM 08/01/18 06:00 Intake Total 940 ml Output Total 1350 ml Balance -410 ml CAMILO HUGGINS DO August 01, 2018 10:36
[2018-08-02 10:00] VITALS: BP 150/82
--- NOTE | 2018-08-02 11:24 | IPN ---
DATE OF SERVICE: 08/02/2018 SUBJECTIVE: The patient seen and examined this morning walking around the room and sitting out of bed to the chair. He reports he feels well except for an episode of "warm head" this morning after taking his a.m. medications. He denied any recurrent dizziness. His clonidine was resumed last night after his blood pressure spiked. VITAL SIGNS: Temperature 96.8. Pulse 63. Respiratory rate 17. Blood pressure 140/80. Saturating 100% on room air. Intake yesterday was 750, urine output yesterday was 975, net negative 225. Weight on the bed scale today is 87 kg. GENERAL: Patient is seen walking around the room with a walker and then sitting out of bed to the chair. Awake, alert, oriented times three. No acute distress. Extraocular muscles are intact. Tongue is moist. Neck is supple. Jugular veins are not elevated. CARDIAC: S1 and S2. Regular rhythm. Bradycardic. No audible murmurs. LUNGS: Clear to auscultation bilaterally. No crackle, rale or wheeze. ABDOMEN: Soft. Nontender. There are bowel sounds. EXTREMITIES: Show trace edema on the left with some chronic venous stasis changes and no edema on the right. SKIN: Shows chronic venous stasis changes on the left, otherwise normal temperature and turgor. NEUROLOGIC: He is at baseline mentation. Oriented times three. No focal deficits. LABS: White count 4.4, hemoglobin 11.4, sodium 142, potassium 4.1, bicarbonate 29, BUN 73, creatinine 3.6. INPATIENT MEDICATIONS: Reviewed by myself. No change from prior. PROBLEMS: 1. Chronic kidney disease Stage 4 with overall downward trend in GFR from around 22 mL/min down to about 17 mL/min, which is likely reflective of the improvement in his volume status over the course of this admission with his weights being down 10 kg. His volume status is well compensated. His electrolytes are acceptable. He continues on a diuretic regimen of amiloride and torsemide 50 mg by mouth twice a day. There is no uremic signs or symptoms. No indication for dialysis at the present time, but he has already had vein mapping done and will see vascular surgery as an outpatient for fistula creation in anticipation of dialysis needs in the future. Continue with medical management of progressive CKD. 2. Diastolic congestive heart failure and right heart failure. Volume status has improved nicely over the course of this admission. Weights are down by 10 kg. He is compensated. Continue amiloride 5 mg daily and torsemide 50 mg by mouth twice a day. His potassium and magnesium levels are acceptable. 3. Hypertension with complaints of recurrent dizziness. His torsemide dose has been reduced to 50 mg by mouth twice a day. Continue amiloride. Continue clonidine. He reports that the dizziness is worse in the morning after receiving his a.m. medications all together. I will switch the amiloride to bedtime dosing and we will see how he does with that. 4. Atrial fibrillation. He is rate controlled and he is anticoagulated with lose dose Xarelto. 5. Disposition. The patient is cleared for discharge from a nephrology point of view. He is pending physical therapy clearance.
[2018-08-02 14:00] VITALS: BP 160/80
--- NOTE | 2018-08-02 15:20 | IPNPDOC ---
Text Note Date of Service The patient was seen on 08/02/18. NOTE Subjective: Patient is a 73-year-old male with a PMHx of HTN, CAD s/p CABG (2006), Chronic A. fib, Diastolic CHF, DM2, Hypothyroidism, CKD4, Hx of Renal CA, Cervical spinal stenosis, GERD, who presented to the emergency room with complaints of shortness of breath and weakness. 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 Patient was admitted to hospitalist service for further evaluation and treatment. Nephrology and Cardiology were called on consultation. Patient was seen and examined at the bedside. Patient reports that with ambulation he experiences some dizziness. Does report that his lower extremity swelling has improved. Denies any significant shortness of breath, chest pain or palpitations. Denies nausea, vomiting, abdominal pain, constipation, or urinary discomfort. Objective: Vitals (See below) General: Lying in bed, no acute distress, comfortable, AAOx3 HEENT: NC, AT, no appreciable JVD CVS: RRR, +S1S2 Lungs: There is fair air entry bilaterally without evidence of rhonchi, rales or wheezing Abdomen: Abdomen remains soft without distention or tenderness Extremities: Lower extremities are without any edema, - Calf tenderness Assessment and plan: Shortness of breath - likely 2/2 acute on chronic Diastolic CHF - Clinically has reported significant improvement in his breathing and LE swelling - Physical does not appear show any significant signs of fluid overload - ECHO 07/20: EF 70%, Moderate pulmonary HTN, - c/w Amiloride and Torsemide as per Nephrology; - Nephrology and Cardiology on consultation Dizziness - possibly 2/2 medications, possibly 2/2 hypovolemia - Patient has reported subjective dizziness with ambulation - Orthostatic vital signs remain negative - Diuretics have been adjusted by nephrology - Will continue with physical therapy until patient has been cleared for discharge home Elevation of Cr on CKD3 - possibly 2/2 progression of CKD - Baseline Cr of 1.8-2.0 - Cr has been elevated from baseline - Nephrology on consultation CAD s/p CABG - s/p Carvedilol - c/w ASA, Atorvastatin Chronic A fib - s/p rate control - c/w full anticoagulation with Xarelto. HTN - BP has been better controlled - s/p Nitro-paste - c/w Clonidine DM2 - c/w ISS and Glipizide Hypothyroidism - c/w Levothyroxine DVT prophylaxis - c/w full anticoagulation with Xarelto Disposition: - Patient has not yet cleared physical therapy - awaiting clearance - Will likely go home with services within 24-48 hours VS,Fishbone, I+O VS, Fishbone, I+O Laboratory Tests 08/02/18 05:44 Red Blood Count 3.93 L, Mean Corpuscular Volume 90.8, Mean Corpuscular Hemoglobin 29.0, Mean Corpuscular Hemoglobin Concent 31.9 L, Red Cell Distribution Width 15.6 H, Neutrophils (%) (Auto) 55.3, Lymphocytes (%) (Auto) 27.8, Monocytes (%) (Auto) 10.6 H, Eosinophils (%) (Auto) 5.2 H, Basophils (%) (Auto) 0.9, Neutrophils # (Auto) 2.5, Lymphocytes # (Auto) 1.2 L, Monocytes # (Auto) 0.5, Eosinophils # (Auto) 0.2, Basophils # (Auto) 0.0, Calcium Level 9.7 Vital Signs Date Time Temp Pulse Resp B/P (MAP) Pulse Ox O2 Delivery O2 Flow Rate FiO2 08/02/18 14:00 97.7 59 18 160/80 (106) 99 I&O- Last 24 Hours up to 6 AM 08/02/18 06:00 Intake Total 1050 ml Output Total 1150 ml Balance -100 ml RUSSELL CARTAGENA MD August 02, 2018 15:20
[2018-08-02] MEDS: RIVAROXABAN 10 MG TAB (XARELTO) PO SCH (17:32)
[2018-08-02 18:00] VITALS: BP 160/80
[2018-08-02] MEDS: **NOTE PATIENT COMMENT** MISC XX SCH (21:00)
[2018-08-02] MEDS: LATANOPROST 0.005% OPHTH SOLN 2.5 ML OU SCH (21:07)
[2018-08-02] MEDS: ATORVASTATIN 20 MG TAB PO SCH (21:07)
[2018-08-02 22:00] VITALS: BP 160/86
[2018-08-03 06:00] VITALS: BP 108/68
[2018-08-03] MEDS: LEVOTHYROXINE 88MCG TABLET (0.088 MG) PO SCH (06:00)
[2018-08-03 07:00] LABS: BASO % 0.8 % (0.0-1.0); EOS # 0.2 10^3/uL (0.0-0.50); EOS % 4.2 % (0.0-3.0); HEMOGLOBIN 12.7 g/dl (13.5-17.5); LYMPH # 1.4 10^3/uL (1.5-4.5); LYMPH % 27.3 % (24.0-44.0); MEAN CORPUSCULAR HEMOGLOBIN 30.2 pg (27.0-33.0); MEAN CORPUSCULAR HGB CONC 32.6 g/dl (32.0-36.5); MEAN CORPUSCULAR VOLUME 92.6 fl (80.0-96.0); MONO # 0.4 10^3/uL (0.0-0.8); NEUTROPHILS % 59.5 % (36.0-66.0); PLATELET COUNT, AUTOMATED 147 10^3/uL (150-450); RED BLOOD COUNT 4.21 10^6/uL (4.30-6.10)
[2018-08-03 07:29] LABS: CALCIUM LEVEL 9.3 MG/DL (8.8-10.2); CREATININE FOR GFR 3.5 MG/DL (0.70-1.30); GLOMERULAR FILTRATION RATE 18.3 (>42); POTASSIUM SERUM 4.2 MEQ/L (3.5-5.1)
[2018-08-03] MEDS: ASPIRIN 81 MG ENTERIC TAB PO SCH (09:22)
[2018-08-03] MEDS: glipiZIDE XL 5 MG TABCR PO SCH (09:22)
[2018-08-03] MEDS: ALLOPURINOL 300 MG TAB PO SCH (09:22)
[2018-08-03] MEDS: VITAMIN D 50,000 UNITS CAPSULE (ERGOCALCIFEROL 1.25MG) PO SCH (09:22)
[2018-08-03] MEDS: TORSEMIDE (DEMADEX) 50 MG PER 1/2 TAB PO SCH ×2 (09:22→17:24)
[2018-08-03] MEDS: MULTIVITAMINS/MINERALS THERAP 1 TAB PO SCH (09:23)
[2018-08-03] MEDS: HumaLOG INSULIN (NovoLOG) PER UNIT SC SCH ×3 (09:23→17:25)
[2018-08-03] MEDS: POTASSIUM CHLORIDE 10 MEQ SR TABLET PO SCH (09:23)
[2018-08-03] MEDS: cloNIDine 0.1 MG TAB PO SCH ×2 (09:23→09:28)
[2018-08-03] MEDS: MIRALAX *UNIT DOSE* 17GM PACKET PO SCH (09:26)
[2018-08-03] MEDS: SODIUM CHLORIDE NASAL 0.65% SPRAY BTL (OCEAN) SCH ×2 (09:27→15:04)
[2018-08-03] MEDS: MUPIROCIN 2% OINT 22 GM TUBE TOP SCH (09:27)
[2018-08-03 09:28] VITALS: BP 181/86
[2018-08-03 10:00] VITALS: BP 144/82
[2018-08-03] MEDS ORDERED: ONDANSETRON 4 MG TAB (S0181) PO ONE (10:00)
[2018-08-03] MEDS ORDERED: MAALOX 30 ML SUSP *UDC PO ONE (10:00)
[2018-08-03] MEDS ORDERED: POTA20TA6 PO (13:50)
[2018-08-03] MEDS ORDERED: AMIL5TAB4 PO (13:50)
[2018-08-03] MEDS ORDERED: TORS100T PO (13:50)
[2018-08-03 14:00] VITALS: BP 138/80
[2018-08-03] MEDS: ACETAMINOPHEN TAB 650MG DOSE (2X325MG) PO PRN (14:05)
--- NOTE | 2018-08-03 15:43 | DS.PDOC ---
Discharge Summary General Date of Admission July 19, 2018 at 17:02 Date of Discharge 08/03/2018 Discharge Summary PROCEDURES PERFORMED DURING STAY: [None]. ADMITTING DIAGNOSES / DISCHARGE DIAGNOSES: Shortness of breath - likely 2/2 acute on chronic Diastolic CHF Dizziness - possibly 2/2 medications, possibly 2/2 hypovolemia Elevation of Cr on CKD4 - possibly 2/2 progression of CKD CAD s/p CABG Chronic A fib HTN DM2 Hypothyroidism DVT prophylaxis COMPLICATIONS/CHIEF COMPLAINT: Shortness of breath / Leg swelling HISTORY OF PRESENT ILLNESS: Patient is a 73-year-old male with a PMHx of HTN, CAD s/p CABG (2006), Chronic A. fib, Diastolic CHF, DM2, Hypothyroidism, CKD4, Hx of Renal CA, Cerv ical spinal stenosis, GERD, who presented to the emergency room with complaints of shortness of breath and weakness. Patient has reported that he was following with his olive grader for fluid management, ultimately patient did not have improvement and was sent to emergency room for further evaluation. Patient was admitted to hospitalist service for further evaluation and treatment. Nephrology and Cardiology were called on consultation. HOSPITAL COURSE: Shortness of breath - likely 2/2 acute on chronic Diastolic CHF - Clinically has reported significant improvement in his breathing and LE swe lling - Physical does not appear show any significant signs of fluid overload - ECHO 07/20: EF 70%, Moderate pulmonary HTN, - c/w Amiloride and Torsemide as per Nephrology; - Nephrology and Cardiology on consultation Dizziness - possibly 2/2 medications, possibly 2/2 hypovolemia - Patient has reported subjective dizziness with ambulation - Orthostatic vital signs remain negative - Diuretics have been adjusted by nephrology - Will continue with physical therapy until patient has been cleared for discharge home Elevation of Cr on CKD4 - possibly 2/2 progression of CKD - Baseline Cr of 1.8-2.0 - Cr has been elevated from baseline - Nephrology on consultation CAD s/p CABG - s/p Carvedilol - c/w ASA, Atorvastatin Chronic A fib - s/p rate control - c/w full anticoagulation with Xarelto. HTN - BP has been better controlled - s/p Nitro-paste - c/w Clonidine DM2 - c/w ISS and Glipizide Hypothyroidism - c/w Levothyroxine DVT prophylaxis - c/w full anticoagulation with Xarelto DISCHARGE MEDICATIONS: Please see below. ALLERGIES: Please see below. PHYSICAL EXAMINATION ON DISCHARGE: Vitals (See below) General: Lying in bed, no acute distress, comfortable, AAOx3 HEENT: NC, AT, no appreciable JVD CVS: RRR, +S1S2 Lungs: Fair air entry b/l, no wheezing / rhonchi / rales appreciated Abdomen: Abdomen remains soft, - distention / tenderness Extremities: -Edema at extremities , - Calf tenderness LABORATORY DATA: Please see below. ACTIVITY: [As tolerated]. DISCHARGE PLAN: Please follow up with Dr. Silas Gaitan and Dr. Wilson within 7 days Please remain complaint with treatment plan and medications Return to the ER if you experience any problems DISPOSITION: Home with services DISCHARGE CONDITION: [Stable]. TIME SPENT ON DISCHARGE: 45 minutes Vital Signs/I&Os Vital Signs Date Time Temp Pulse Resp B/P (MAP) Pulse Ox O2 Delivery O2 Flow Rate FiO2 08/03/18 14:00 97.1 69 18 138/80 (99) 100 I&O- Last 24 Hours up to 6 AM 08/03/18 06:00 Intake Total 520 ml Output Total 1350 ml Balance -830 ml Laboratory Data Labs 24H Laboratory Tests 2 08/02/18 17:08: Bedside Glucose (Misc Panel) 127H 08/02/18 20:03: Bedside Glucose (Misc Panel) 183H 08/03/18 06:45: Immature Granulocyte % (Auto) 0.2, White Blood Count 5.0, Red Blood Count 4.21L, Hemoglobin 12.7L, Hematocrit 39.0L, Mean Corpuscular Volume 92.6, Mean Corpuscular Hemoglobin 30.2, Mean Corpuscular Hemoglobin Concent 32.6, Red Cell Distribution Width 15.6H, Platelet Count 147L, Neutrophils (%) (Auto) 59.5, Lymphocytes (%) (Auto) 27.3, Monocytes (%) (Auto) 8.0H, Eosinophils (%) (Auto) 4.2H, Basophils (%) (Auto) 0.8, Neutrophils # (Auto) 3.0, Lymphocytes # (Auto) 1.4L, Monocytes # (Auto) 0.4, Eosinophils # (Auto) 0.2, Basophils # (Auto) 0.0, Nucleated Red Blood Cells % (auto) 0.0, Anion Gap 8, Glomerular Filtration Rate 18.3L, Blood Urea Nitrogen 74H, Creatinine 3.50H, Sodium Level 141, Potassium Level 4.2, Chloride Level 105, Carbon Dioxide Level 28, Calcium Level 9.3 08/03/18 11:19: Bedside Glucose (Misc Panel) 140H CBC/BMP Laboratory Tests 08/03/18 06:45 Red Blood Count 4.21 L, Mean Corpuscular Volume 92.6, Mean Corpuscular Hemoglobin 30.2, Mean Corpuscular Hemoglobin Concent 32.6, Red Cell Distribution Width 15.6 H, Neutrophils (%) (Auto) 59.5, Lymphocytes (%) (Auto) 27.3, Monocytes (%) (Auto) 8.0 H, Eosinophils (%) (Auto) 4.2 H, Basophils (%) (Auto) 0.8, Neutrophils # (Auto) 3.0, Lymphocytes # (Auto) 1.4 L, Monocytes # (Auto) 0.4, Eosinophils # (Auto) 0.2, Basophils # (Auto) 0.0, Calcium Level 9.3 FSBS Laboratory Tests Test 08/02/18 17:08 08/02/18 20:03 08/03/18 11:19 Range/Units Bedside Glucose (Misc Panel) 127 183 140 83-110 MG/DL Discharge Medications Scheduled Allopurinol (Zyloprim) 300 Mg Tab, 300 MG PO DAILY, (Reported) Amiloride HCl (Amiloride HCl) 5 Mg Tablet, 5 MG PO QHS Aspirin (Aspirin EC) 81 Mg Tabec, 81 MG PO DAILY, (Reported) Atorvastatin Calcium (Atorvastatin Calcium) 40 Mg Tab, 40 MG PO QHS, (Reported) Clonidine Hcl (Clonidine HCl) 0.1 Mg Tablet, 0.1 MG PO BID Ergocalciferol (Vitamin D2) (Drisdol) 50,000 Unit Cap, 50,000 UNIT PO 1XWK, (Reported) PT NEEDS NEW SCRIPT Glipizide (Glipizide Xl) 5 Mg Tab.er.24, 5 MG PO DAILY, (Reported) Insulin Aspart (Novolog Flexpen) 100 Unit/Ml Inj, 0 SC AC, (Reported) PER SLIDING SCALE Insulin Glargine,Hum.rec.anlog (Basaglar Kwikpen U-100) 100 Unit/1 Ml Insuln.pen, 20 UNIT SC QHS, (Reported) Latanoprost (Xalatan) 0.005 % Zena, 1 DROP OU QHS, (Reported) Levothyroxine Sodium (Levothyroxine Sodium) 88 Mcg Tablet, 88 MCG PO DAILY, (Reported) Multivitamins (Thera M Plus Tablet) 1 Tab Tab, 1 TAB PO DAILY, (Reported) Mupirocin (Mupirocin) 22 Gm Oint...g., 0 DOSE TOP BID Polyethylene Glycol 3350 (Miralax) 119 Gm Powder, 17 GM PO DAILY, (Reported) Potassium Chloride (Potassium Chloride) 20 Meq Tab.er.prt, 1 TAB PO DAILY Rivaroxaban (Xarelto) 10 Mg Tab, 10 MG PO QPM, (Reported) TAKES WITH DINNER Torsemide (Torsemide) 100 Mg Tablet, 50 MG PO BID@0900,1700 Scheduled PRN Docusate Sodium (Colace) 100 Mg Capsule, 100 MG PO BID PRN for CONSTIPATION, (Reported) Lidocaine (Lidoderm) 5 % Dis, 1 PATCH TD DAILY PRN for PAIN, (Reported) APPLY TO LOWER BACK Nitroglycerin (Nitrostat) 0.4 Mg Tab.subl, 0.4 MG SL NITRO PRN for CHEST PAIN, (Reported) Allergies Coded Allergies: Penicillins (Verified Allergy, Unknown, rash/itching, 07/19/18) Sulfa (Sulfonamide Antibiotics) (Verified Allergy, Unknown, unknown, 07/19/18) amlodipine (Verified Allergy, Unknown, unknown, 07/19/18) cephalexin (Unverified Allergy, Unknown, 07/19/18) erythromycin base (Verified Allergy, Unknown, unknown, 07/19/18) hydralazine (Unverified Allergy, Unknown, 07/19/18) minoxidil (Unverified Allergy, Unknown, SWELLING, 07/19/18) tetracycline (Verified Allergy, Unknown, unknown, 07/19/18) Contrast Media (Verified Adverse Reaction, Intermediate, MADE LEG TURN RED, 02/26/18) carvedilol (Verified Adverse Reaction, Intermediate, LE SWELLING, 07/20/18) RUSSELL CARTAGENA MD August 03, 2018 15:43
[2018-08-03] MEDS: RIVAROXABAN 10 MG TAB (XARELTO) PO SCH (17:25)
[2018-08-03] MEDS ORDERED: aMILoride 5 MG TAB PO SCH (21:00)
== END 2018-08-03 19:00 | disposition home health service (06) | DRG 291 ==
LOC: M ED 15:54 → M ED INP 17:02 → M PCU 20:50 → M MSPAV 07-28 14:37
PROVIDERS: ADMIT Internal Medicine; ATTEND Internal Medicine
DX: I13.0 Hypertensive heart and chronic kidney disease with heart failure and stage 1 through stage 4 chronic kidney disease, or unspecified chronic kidney disease (principal); I50.33 Acute on chronic diastolic (congestive) heart failure; N18.4 Chronic kidney disease, stage 4 (severe); I16.1 Hypertensive emergency; N17.9 Acute kidney failure, unspecified; R60.0 Localized edema; E11.22 Type 2 diabetes mellitus with diabetic chronic kidney disease; I25.119 Atherosclerotic heart disease of native coronary artery with unspecified angina pectoris; I48.2 Chronic atrial fibrillation; E87.6 Hypokalemia; Z95.1 Presence of aortocoronary bypass graft; E03.9 Hypothyroidism, unspecified; Z85.528 Personal history of other malignant neoplasm of kidney; K21.9 Gastro-esophageal reflux disease without esophagitis; Z79.899 Other long term (current) drug therapy; Z79.82 Long term (current) use of aspirin; Z79.4 Long term (current) use of insulin; Z88.0 Allergy status to penicillin; Z88.2 Allergy status to sulfonamides; Z91.040 Latex allergy status; M10.9 Gout, unspecified; F41.9 Anxiety disorder, unspecified; K57.30 Diverticulosis of large intestine without perforation or abscess without bleeding; E86.1 Hypovolemia; R42 Dizziness and giddiness

== ENCOUNTER → 2018-08-12 | Outpatient (REF) | payer MEDICARE ==
[~2018-08-12] MED LIST changes: +AMIL5TAB4 PO; +BASA100I SC; +CLONI1TA PO; +COLA100C5 PO; +GLIP-162 PO; +LEVO88TA3 PO; +MIRA3350 PO; +MUPI2OI TOP; +POTA20TA6 PO; +TORS100T PO
[2018-08-12 20:42] LABS: APPEARANCE, URINE HAZY (CLEAR); BACTERIA, URINE AUTO 1+ (NEGATIVE); BILIRUBIN, URINE AUTO NEGATIVE (NEGATIVE); BLOOD, URINE BLOOD 1+ (NEGATIVE); COLOR, URINE YELLOW (YELLOW); GLUCOSE, URINE (UA) AUTO 1+ mg/dL (NEGATIVE); KETONE, URINE AUTO NEGATIVE (NEGATIVE); LEUKOCYTE ESTERASE, URINE AUTO NEGATIVE (NEGATIVE); NITRITE, URINE AUTO NEGATIVE (NEGATIVE); PROTEIN, URINE AUTO 3+ mg/dL (NEGATIVE); RBC, URINE AUTO 7 /HPF (0-3); SPECIFIC GRAVITY URINE AUTO 1.014 (1.002-1.035); SQUAMOUS EPITHELIAL CELL UR AU 0 /HPF (0-6); UROBILINOGEN, URINE AUTO 0.2 mg/dL (0.0-2.0); WBC, URINE AUTO 2 /HPF (0-3)
== END ==
LOC: M LAB REF 09:36
PROVIDERS: ATTEND Internal Medicine Nephrology
DX: R30.0 Dysuria (principal)

== ENCOUNTER 2018-09-23 07:00 | Day surgery (SDC) | payer MEDICARE ==
[~2018-09-23] VITALS: Ht 185.4 cm; Wt 86.7 kg
[~2018-09-23 07:00] MED LIST changes: +LIDOCAINE 1% MDV 20ML VIAL SQ PRN; +LR 1,000 ML IV ONE; -OMEP20CA3 PO; +OMEP20CA4 PO; +POTA10TA16 PO
[2018-09-23] MEDS ORDERED: PROPOFOL 200 MG/20 ML VIAL As Ordered ONE (07:07)
[2018-09-23] MEDS ORDERED: LIDOCAINE 2% INJ 100 MG/5 ML SDV (FOR ANES.) As Ordered ONE (07:07)
[2018-09-23] MEDS ORDERED: ONDANSETRON 4MG/2ML VIAL (J2405) As Ordered ONE (07:07)
[2018-09-23] MEDS ORDERED: MIDAZOLAM INJ 2 MG/2 ML VIAL (J2250) As Ordered ONE (07:10)
[2018-09-23] MEDS ORDERED: fentaNYL 100 MCG/2 ML INJECTION (J3010) As Ordered ONE (07:10)
[2018-09-23 07:39] LABS: INR 1.65; PROTHROMBIN TIME 19.3 SECONDS (11.8-14.0)
[2018-09-23] MEDS ORDERED: HEPARIN SOD (PORCINE) 5000 UNITS/ML VIAL As Ordered ONE (08:47)
[2018-09-23] MEDS ORDERED: BUPIVACAINE HCL 0.5% 30 ML VIAL As Ordered ONE (08:47)
[2018-09-23] MEDS ORDERED: ISOVUE-300 61% 50ML VIAL (Q9967) As Ordered ONE (08:47)
[2018-09-23] MEDS ORDERED: LIDOCAINE 1% SDV INJ 30 ML VIAL As Ordered ONE (08:47)
[2018-09-23] MEDS ORDERED: ACETAMINOPHEN 500 MG TAB As Ordered ONE (12:39)
[2018-09-23] MEDS ORDERED: ACETAMINOPHEN 500 MG TAB PO ONE (13:00)
[2018-09-23 14:50] VITALS: BP 139/63
--- NOTE | 2018-10-27 08:43 | RO ---
DATE OF PROCEDURE: 09/23/2018 ATTENDING SURGEON: Dr. Lilliam Peoples INSURANCE CHECKER: None. PREOPERATIVE DIAGNOSES: Chronic renal insufficiency nearing end-stage renal disease, single kidney. POSTPROCEDURE DIAGNOSES: Chronic renal insufficiency nearing end-stage renal disease, single kidney. PROCEDURE: Left basilic vein to brachial artery arteriovenous fistula formation. INDICATION: The patient is a 73-year-old male with chronic renal insufficiency nearing end-stage renal disease who will require access for hemodialysis in the future. The patient will undergo creation of a left arm arteriovenous fistula. Risks, benefits and alternative options were discussed with the patient. ANESTHESIA: Local MAC. ESTIMATED BLOOD LOSS: 30 mL IV FLUIDS: 300 mL. HEPARIN: None. COMPLICATIONS: None. DRAINS: None. SPECIMENS: None. IMPLANTS: None. PROCEDURE: The patient was taken to the operating room, placed spine on the operating room table and prepped and draped in a sterile surgical fashion. The left arm underwent application of a tourniquet above the antecubital fossa. There was no good cephalic vein for basilic vein noted in the forearm. There was the basilic vein noted at the antecubital fossa. The cephalic vein was noted to be present but sclerosed. An incision was then made transversely at the antecubital fossa. Cephalic vein was noted to be small and sclerotic and not usable for hemodialysis access creation. The basilic vein was then sharply dissected free and transected as far distal as possible with the remnant ligated with 2-0 silk suture. The basilic vein was dilated with heparinized saline. The basilic brachial artery was sharply dissected proximally and distally and then clamped. An arteriotomy was made and the basilic vein was anastomosed to the brachial artery in an end-to-side fashion using 6-0 Prolene suture. There was good flow in the brachial artery proximal to distal to the arteriovenous anastomosis, as well as into the basilic vein at the completion of the arteriovenous anastomosis. Hemostasis was obtained, after which the incision was closed using 3-0 Monocryl in running subcuticular fashion. Steri-Strips and dressings were applied. The patient tolerated the procedure well. All instrument, sponge and needle counts were correct at the end the case. There were no complications. Dr. Peoples was present for and directed the entire case. The patient was transferred to the recovery room and subsequently discharged in stable condition.
== END 2018-09-23 15:00 | disposition home or self-care (01) ==
LOC: M SDC 07:00
PROVIDERS: ATTEND Surgery Vascular Surgery
DX: N18.6 End stage renal disease (principal); I13.2 Hypertensive heart and chronic kidney disease with heart failure and with stage 5 chronic kidney disease, or end stage renal disease; I50.32 Chronic diastolic (congestive) heart failure; I25.119 Atherosclerotic heart disease of native coronary artery with unspecified angina pectoris; I25.2 Old myocardial infarction; I48.2 Chronic atrial fibrillation; E78.5 Hyperlipidemia, unspecified; E11.22 Type 2 diabetes mellitus with diabetic chronic kidney disease; M10.9 Gout, unspecified; E03.9 Hypothyroidism, unspecified; M12.9 Arthropathy, unspecified; M81.0 Age-related osteoporosis without current pathological fracture; F41.9 Anxiety disorder, unspecified; F32.9 Major depressive disorder, single episode, unspecified; E11.40 Type 2 diabetes mellitus with diabetic neuropathy, unspecified; J45.909 Unspecified asthma, uncomplicated; J44.9 Chronic obstructive pulmonary disease, unspecified; Z88.0 Allergy status to penicillin; Z88.1 Allergy status to other antibiotic agents; Z88.2 Allergy status to sulfonamides; Z91.041 Radiographic dye allergy status; Z79.899 Other long term (current) drug therapy; Z79.01 Long term (current) use of anticoagulants; Z79.4 Long term (current) use of insulin; Z79.82 Long term (current) use of aspirin
CPT/HCPCS: 36415; 36821; 84132; 85610; 85730; J2250; J2405; J3010

== ENCOUNTER → 2018-10-10 | Outpatient (REF) | payer MEDICARE ==
[~2018-10-10] MED LIST changes: -LIDOCAINE 1% MDV 20ML VIAL SQ PRN; -LR 1,000 ML IV ONE
[2018-10-10 18:02] LABS: CHOLESTEROL LEVEL 130 MG/DL (<200); CHOLESTEROL RISK RATIO 4.062 (<5); HDL CHOLESTEROL 32 MG/DL (>40); LDL CHOLESTEROL 78 MG/DL (<100); NON-HDL-C 98 MG/DL; TRIGLYCERIDES LEVEL 100 MG/DL (<150)
[2018-10-12 11:38] LABS: HEPATITIS B SURFACE ANTIBODY NEGATIVE (POSITIVE)
[2018-10-12 11:48] LABS: HEPATITIS B SURFACE ANTIGEN NEGATIVE (NEGATIVE)
[2018-10-12 12:16] LABS: HEPATITIS C VIRUS ABY INDEX 0.1 INDEX (<0.8)
[2018-10-12 12:17] LABS: HEPATITIS B CORE ANTIBODY IGM NEGATIVE (NEGATIVE)
== END ==
LOC: M LAB REF 17:03
PROVIDERS: ATTEND Internal Medicine Nephrology
DX: N18.5 Chronic kidney disease, stage 5 (principal); I12.9 Hypertensive chronic kidney disease with stage 1 through stage 4 chronic kidney disease, or unspecified chronic kidney disease; I50.32 Chronic diastolic (congestive) heart failure; Z79.82 Long term (current) use of aspirin; Z79.899 Other long term (current) drug therapy

== ENCOUNTER → 2018-10-13 | Outpatient (CLI) | payer MEDICARE ==
[~2018-10-13] MED LIST changes: +HEPARIN 1,000 UNITS/ML 10ML VIAL (FOR RADIOLOGY& DIALYSIS ONLY) As Ordered ONE; +LIDOCAINE 1% MDV 20ML VIAL As Ordered ONE; +fentaNYL 100 MCG/2 ML INJECTION (J3010) As Ordered ONE
--- NOTE | 2018-10-13 09:47 | IRHP ---
[facility] IR Pre-Procedure H & P General Procedure: Same Day Surgery Interval History and Physical I have seen the patient and reviewed last H & P performed within 30 days. There is [no significant interval change] [significant interval change including] []. Patient [is stable for procedure] [not appropriate for procedure]. History of Present Illness Chief Complaint The patient is a 73-year-old male admitted with a reason for visit of Ckd Stage 5. needs perm cath for HD. held xarelto 24 hours. Doesn't want to hold for 48 hours concerned may get stroke. Understand risks of bleeding. ate at 6 this morning therefore no sedation. PRE-PROCEDURE DIAGNOSIS: renal failure HEART: normal rate LUNGS:normal breathing at rest. abdomen non distended. bilateral pitting edema Plan other (none) Allergies Coded Allergies: Penicillins (Verified Allergy, Intermediate, rash/itching, 09/23/18) Sulfa (Sulfonamide Antibiotics) (Verified Allergy, Unknown, unknown, 09/23/18) cephalexin (Unverified Allergy, Unknown, 09/23/18) erythromycin base (Verified Allergy, Unknown, unknown, 09/23/18) hydralazine (Unverified Allergy, Unknown, 09/23/18) Contrast Media (Verified Adverse Reaction, Intermediate, MADE LEG TURN RED, 09/23/18) amlodipine (Verified Adverse Reaction, Intermediate, FLUID RETENTION, 09/23/18) carvedilol (Verified Adverse Reaction, Intermediate, FLUID RETENTION, 09/23/18) Tetracyclines (Verified Adverse Reaction, Mild, ITCHING, 09/23/18) Medications Scheduled Allopurinol (Zyloprim), 300 MG PO DAILY, (Reported) Amiloride HCl (Amiloride HCl), 5 MG PO QHS Aspirin (Aspirin EC), 81 MG PO DAILY, (Reported) Atorvastatin Calcium (Atorvastatin Calcium), 40 MG PO QHS, (Reported) Clonidine Hcl (Clonidine HCl), 0.1 MG PO BID Ergocalciferol (Vitamin D2) (Drisdol), 50,000 UNIT PO 1XWK, (Reported) Glipizide (Glipizide Xl), 5 MG PO DAILY, (Reported) Insulin Aspart (Novolog Flexpen), 0 SC AC, (Reported) Insulin Glargine,Hum.rec.anlog (Basaglar Kwikpen U-100), 20 UNIT SC QHS, (Reported) Latanoprost (Xalatan), 1 DROP OU QHS, (Reported) Levothyroxine Sodium (Levothyroxine Sodium), 88 MCG PO DAILY, (Reported) Multivitamins (Thera M Plus Tablet), 1 TAB PO DAILY, (Reported) Mupirocin (Mupirocin), 0 DOSE TOP BID Polyethylene Glycol 3350 (Miralax), 17 GM PO DAILY, (Reported) Potassium Chloride (Potassium Chloride), 10 MEQ PO BID, (Reported) Rivaroxaban (Xarelto), 10 MG PO QPM, (Reported) Torsemide (Torsemide), 50 MG PO BID@0900,1700 Scheduled PRN Docusate Sodium (Colace), 100 MG PO BID PRN for CONSTIPATION, (Reported) Lidocaine (Lidoderm), 1 PATCH TD DAILY PRN for PAIN, (Reported) Nitroglycerin (Nitrostat), 0.4 MG SL NITRO PRN for CHEST PAIN, (Reported) HOMAR MARTINEZ MD Oct 13, 2018 09:46
--- NOTE | 2018-10-13 11:11 | POST-OPPD ---
Postoperative Procedure Note Date Of Procedure: Oct 13, 2018 Time Of Procedure: 11:10 PREOPERATIVE DIAGNOSIS: renal failure. requires dialysis POSTOPERATIVE DIAGNOSIS: renal failure. requires dialysis FINDINGS: patent right IJ PROCEDURE: right IJ perm cath placed SURGEON: Lan ANESTHESIA: none ESTIMATED BLOOD LOSS: < 5 ml COMPLICATIONS: none POSTOPERATIVE CONDITION: stable HOMAR MARTINEZ MD Oct 13, 2018 11:11
[2018-10-13 13:00] VITALS: BP 164/77
--- NOTE | 2018-10-13 14:00 | REP ---
IR Permcath placement. IR ultrasound of the right neck. IR Permcath insertion under fluoroscopy and ultrasound guidance. Clinical information: Renal failure. Requiring dialysis. Fistula not mature. Physician: Dr. Montenegro. Procedure: The patient was advised of the benefits, risks and alternatives of the procedure and informed consent was obtained. The time-out was performed with verification of the patient's name, MRN, site of procedure and type of procedure to be performed. The patient was positioned in the supine position on the angiographic table. The site was prepped and draped in the usual sterile fashion. Moderate sedation was not performed but Fentanyl was administered for analgesia. The physician spent 45 minutes of continuous face to face time with the patient. Ultrasound of the right neck reveals a patent and compressible right internal jugular vein. A medical office assistant radiograph reveals median sternotomy wires. The neck and anterior chest wall were anesthetized with lidocaine. The right internal jugular vein was accessed using a micro introduce needle via a lateral approach. An 018 cope wire was advanced into the inferior vena cava. Incision at the internal jugular access site and anterior chest wall were made using a scalpel. The needle was removed and the tract was serially dilated under fluoroscopy guidance. A peel away sheath was advanced over the wire under fluoroscopy guidance into the Superior vena cava. The catheter was inserted through the subcutaneous tissues of the chest wall with a tunneling device. The catheter was then advanced through the peel-away sheath under fluoroscopy guidance to the right atrium. The peel-away sheath was removed. The catheter was positioned with the tip in the right atrium. The puncture site was closed. The catheter was secured in place using 2-0 Prolene. Both sites were cleansed and sterile dressings applied. At the conclusion of the procedure, the ports of the catheter aspirate and flush freely. The catheter was locked with high-dose heparin. The patient tolerated the procedure well and was returned to the PRU in stable condition. EBL: < 5 ml. Complications: None. Conclusion: Successful placement of right sided Permcath for dialysis. The catheter is ready for immediate use. Thank you this referral. Electronically Signed by Lisa Montenegro MD 10/13/2018 01:58 P
== END ==
LOC: M IRPRO 08:52
PROVIDERS: ATTEND Radiology Diagnostic Radiology
DX: N18.6 End stage renal disease (principal)
CPT/HCPCS: 36561; 76937; 77001; C1750; C1769; C1894; J3010

== ENCOUNTER 2019-01-10 19:32 | Inpatient (IN) | payer MEDICARE ==
[~2019-01-10] VITALS: Ht 185.4 cm; Wt 69.9 kg
[~2019-01-10 19:32] MED LIST changes: -GLIM4TAB PO; +GLIM4TAB3 PO; -HEPARIN 1,000 UNITS/ML 10ML VIAL (FOR RADIOLOGY& DIALYSIS ONLY) As Ordered ONE; -LIDOCAINE 1% MDV 20ML VIAL As Ordered ONE; -fentaNYL 100 MCG/2 ML INJECTION (J3010) As Ordered ONE
[2019-01-10 20:18] LABS: INR 1.45; PROTHROMBIN TIME 17.3 SECONDS (11.8-14.0)
[2019-01-10 20:19] LABS: PARTIAL THROMBOPLASTIN TIME 34.5 SECONDS (25.0-38.4)
[2019-01-10 20:20] LABS: BASO % 0.7 % (0.0-1.0); EOS # 0.1 10^3/uL (0.0-0.5); EOS % 1.9 % (0.0-3.0); HEMATOCRIT 31.9 % (42.0-52.0); HEMOGLOBIN 10.3 g/dl (13.5-17.5); LYMPH # 0.9 10^3/uL (1.5-5.0); LYMPH % 22.4 % (24.0-44.0); MEAN CORPUSCULAR HEMOGLOBIN 29.9 pg (27.0-33.0); MEAN CORPUSCULAR HGB CONC 32.3 g/dl (32.0-36.5); MEAN CORPUSCULAR VOLUME 92.7 fl (80.0-96.0); MONO # 0.3 10^3/uL (0.0-0.8); MONO % 8.2 % (0.0-5.0); NEUTROPHILS # 2.8 10^3/uL (1.5-8.5); NEUTROPHILS % 66.3 % (36.0-66.0); PLATELET COUNT, AUTOMATED 154 10^3/uL (150-450); RED BLOOD COUNT 3.44 10^6/uL (4.30-6.10); WHITE BLOOD COUNT 4.2 10^3/uL (4.0-10.0)
[2019-01-10 20:31] LABS: ALBUMIN 3.7 GM/DL (3.2-5.2); ALT/SGPT 23 U/L (12-78); BILIRUBIN,DIRECT < 0.1 MG/DL (0.0-0.2); BILIRUBIN,TOTAL 0.3 MG/DL (0.2-1.0); BLOOD UREA NITROGEN 68 MG/DL (7-18); CALCIUM LEVEL 9.2 MG/DL (8.8-10.2); CARBON DIOXIDE LEVEL 26 MEQ/L (21-32); CHLORIDE LEVEL 102 MEQ/L (98-107); CK-MB VALUE MASS 1.1 NG/ML (<3.6); CPK CREATINE PHOSPHOKINASE 63 U/L (39-308); CREATININE FOR GFR 4.86 MG/DL (0.70-1.30); GLOMERULAR FILTRATION RATE 12.5 (>42); GLUCOSE, FASTING 108 MG/DL (70-100); LIPASE 255 U/L (73-393); MB/CK RELATIVE INDEX 1.75 (< OR =4); NT-PRO BNP 3201 PG/ML (<450); POTASSIUM SERUM 3.6 MEQ/L (3.5-5.1); SODIUM LEVEL 138 MEQ/L (136-145); TROPONIN I 0.02 NG/ML (< 0.10)
[2019-01-10] MEDS ORDERED: NITROGLYCERIN 2% OINT 1 GM *U/D* PKT TOP ONE (20:45)
[2019-01-10] MEDS: APIXABAN 2.5 MG TAB (ELIQUIS) PO SCH (21:00)
--- NOTE | 2019-01-10 22:51 | ECGEPIP ---
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
[2019-01-10] MEDS: MORPHINE 2 MG/ML 1ML VIAL (J2270) IV PRN (22:58)
[2019-01-10] MEDS ORDERED: CALC1CAP31 PO (23:13)
[2019-01-10] MEDS ORDERED: CLON0.1D3 TOP (23:13)
[2019-01-10] MEDS ORDERED: CYCL10TA PO (23:13)
[2019-01-10] MEDS ORDERED: ELIQ2.5T PO (23:13)
[2019-01-10] MEDS ORDERED: ALLO100T PO (23:13)
[2019-01-10] MEDS ORDERED: TORS100T PO (23:13)
[2019-01-10] MEDS ORDERED: ALPR0.5T3 PO (23:13)
[2019-01-10 23:39] LABS: CK-MB VALUE MASS 1.2 NG/ML (<3.6); MB/CK RELATIVE INDEX 1.67 (< OR =4); TROPONIN I 0.02 NG/ML (< 0.10)
[2019-01-11] MEDS: MORPHINE 2 MG/ML 1ML VIAL (J2270) IV PRN ×4 (00:14→20:22)
[2019-01-11] MEDS ORDERED: CYCLOBENZAPRINE 10 MG TAB PO PRN (01:15)
[2019-01-11] MEDS ORDERED: MORPHINE 2 MG/ML 1ML VIAL (J2270) IV ONE (01:15)
[2019-01-11] MEDS ORDERED: ALPRAZolam 0.5 MG TAB PO PRN (01:15)
[2019-01-11] MEDS ORDERED: PANTOPRAZOLE 40MG INJ (PROTONIX) (C9113) IV ONE (01:30)
[2019-01-11 01:33] VITALS: BP 140/64
[2019-01-11] MEDS: ATORVASTATIN 20 MG TAB PO SCH ×2 (02:29→20:07)
[2019-01-11] MEDS: LATANOPROST 0.005% OPHTH SOLN 2.5 ML OU SCH ×2 (03:18→20:07)
[2019-01-11 04:00] VITALS: BP 142/78
[2019-01-11] MEDS: LEVOTHYROXINE 88MCG TABLET (0.088 MG) PO SCH (05:45)
[2019-01-11 06:16] LABS: CALCIUM LEVEL 9.2 MG/DL (8.8-10.2); CREATININE FOR GFR 4.75 MG/DL (0.70-1.30); GLOMERULAR FILTRATION RATE 12.8 (>42); MAGNESIUM LEVEL 2.1 MG/DL (1.8-2.4); POTASSIUM SERUM 3.5 MEQ/L (3.5-5.1)
[2019-01-11 07:54] VITALS: BP 132/78
--- NOTE | 2019-01-11 07:57 | REP ---
Clinical: chest pain. Comparison: 07/20/2018. Findings: The mediastinum and cardiac silhouette are stable. Cardiomegaly with prior sternotomy, CABG and dialysis catheter. The lung davis demonstrate chronic changes without acute consolidation, effusion, or pneumothorax. Skeletal structures are intact. Impression: No acute cardiopulmonary process appreciated. Electronically Signed by Alex Parisi MD 01/11/2019 07:49 A
[2019-01-11] MEDS: CALCITRIOL 0.25 MCG CAP (S0169) PO SCH (08:02)
[2019-01-11] MEDS: MIRALAX *UNIT DOSE* 17GM PACKET PO SCH (08:02)
[2019-01-11] MEDS: ASPIRIN 81 MG ENTERIC TAB PO SCH (08:02)
[2019-01-11] MEDS: TORSEMIDE (DEMADEX) 50 MG PER 1/2 TAB PO SCH ×2 (08:02→17:45)
[2019-01-11] MEDS: MULTIVITAMINS/MINERALS THERAP 1 TAB PO SCH (08:02)
[2019-01-11] MEDS: glipiZIDE XL 5 MG TABCR PO SCH (08:02)
[2019-01-11] MEDS: APIXABAN 2.5 MG TAB (ELIQUIS) PO SCH ×2 (08:03→20:07)
[2019-01-11] MEDS: ALLOPURINOL 100 MG TAB PO SCH (08:03)
--- NOTE | 2019-01-11 08:17 | HPE ---
DATE OF ADMISSION: 01/10/2019 PRIMARY CARE PHYSICIAN: Dr. Gaitan CHIEF COMPLAINT: Shortness of breath and chest pain. HISTORY OF PRESENTING ILLNESS: This is a 73-year-old male FULL CODE. History of solitary kidney, chronic kidney disease stage 4, diastolic heart failure, EF of 70% and right sided heart failure, hypertensive heart disease, type 2 diabetes, followed with CAD, CABG times four with stress heart scan 12/2017 showing no low level exercise induced chest pain or EKG, CT wave changes with preserved systolic function who presents to the emergency room with complaints of chest pain which started today and described as agonizing pain. He says that he has had difficulty holding his head up, chest pain across the chest as well as low back pain preventing him from sitting through dialysis on Wednesday and only stayed 3 1/2 hours. He complains of significant weight loss from usual 190 pounds to 185 pounds for years and currently 171 pounds and has been refusing to stay for dialysis and he has lost so much weight. The patient was in his usual state of health until last Wednesday when he complained of agonizing pain down his back radiating down to his legs while he was in dialysis, unable to complete this at that time. He was diuresed about 4 pounds off and had gone home. Patient complains of loosing so much weight that he is only bones in his buttocks causing him to have significant pain. He is usually able to drive himself to and from dialysis but felt like today he was very very ill and could not hold his head up after waking up at 6:30 in the morning he had to go back to bed due to weakness and developed chest pain across the chest with radiating down the left arm. He initially had no improvement after one nitroglycerin but after a few minutes had significant relief. After going back to bed around 11 and after eating chest pain returned again and this time it would not go away. He then called 911 around 6 p.m., this time accompanied with worsening shortness of breath. He denies any exertion. No headaches, nausea, vomiting or epigastric pain. He has had a congested cough with white sputum without fever or chills. He has felt a little bit cold. He was found to have elevated blood pressure of 179/77. Apart from his normal of usually 122/30 systolic according to the patient. In the ER evaluation included EKG which showed atrial fibrillation, rate controlled at 61 with age indeterminate septal PR. White count was normal, troponin was negative, BNP was elevated at 3201. Chest x-ray official report was pending. Hospitalist was called to admit for chest pain, CHF exacerbation requiring dialysis. PAST MEDICAL HISTORY: Nephrectomy for renal cancer with a solitary kidney, end stage renal disease on maintenance dialysis Wednesday, , Wednesday, hypertension, CAD, CABG, chronic diastolic heart failure, right heart failure, atrial fibrillation, hypothyroidism, cervical spine stenosis reflux, type 2 diabetes, basal cell CA with excisional biopsy, gout, anxiety, diverticular disease of the large colon, prior GI bleed and hemorrhoids, peripheral neuropathy, peripheral venous insufficiency with prior cellulitis, prior cataracts, and colonic polyps, and glaucoma. PAST SURGICAL HISTORY: CABG 2006, left nephrectomy, cataract extraction, colonic polypectomy, history of coronary stents and cardial ablation, Cataract extraction. ALLERGIES: Contrast media, penicillin, sulfa, amlodipine, Coreg, Cefazolin, Azithromycin, Minoxidil, hydralazine, tetracycline. HOME MEDICATIONS: Allopurinol 100 daily, alprazolam 0.5 mg daily as needed, Eliquis 2.5 twice a day, aspirin 81 mg daily, atorvastatin 40 mg at bedtime, calcitriol 0.25 mcg three times a week, clonidine 0.1 mg patch weekly, Cyclobenzaprine 10 mg every 12 hours as needed, glipizide 5 mg daily, Xalatan 1 drop OU at bedtime, Levothyroxine 88 mcg daily, Lidocaine patch daily, multivitamin daily, nitroglycerine as needed, MiraLAX 17 grams daily and torsemide 50 mg twice a day. SOCIAL HISTORY: The patient is a retired resident of [place], 5 grown children. No history of premature heart disease. PHYSICAL EXAMINATION: VITAL SIGNS: Blood pressure 157/69, admission blood pressure 183/72. Pulse 58, [id number], 98% on room air. GENERAL: The patient is sitting at the bedside on the recliner very uncomfortable. He is irritable. There is no respiratory distress or use of respiratory accessory muscles. Trachea is midline. Moist mucous membranes. No cervical lymphadenopathy or thyromegaly. LUNGS: Diminished breath sounds. HEART: S1, S2 sinus regularly irregular. ABDOMEN: Soft and nontender, nondistended. EXTREMITIES: 2+ pitting edema to the sacrum. EKG atrial fib ventricle rate 61, septal PR. LABORATORY DATA: White count 4.2, hemoglobin 10, hematocrit 31, platelet count 154, sodium 138, potassium 3.6, chloride 102, bicarbonate 26, BUN 68, creatinine 4.86, glucose 108, calcium 9.2, direct bilirubin less than 0.1, AC 14, LT 23, alkaline phos 73, total CK 63, MB fraction 1.1, troponin 0.02, BNP 3201, total protein 7, albumin 3.7, lipase 255, TSH 1.61. IMAGING STUDIES: Chest x-ray pending official report. ASSESSMENT AND PLAN: 73-year-old male who presents to the emergency room with complaints of fatigue and unable to hold his head up, chest pain across the anterior chest, lower extremity edema and painful buttocks refusing lumbar spine x-ray this morning. He will be admitted as an inpatient for the following issues: 1. Fluid overload requiring hemodialysis due to end-stage renal dialysis on Wednesday, , and Wednesday with congestive heart failure, systolic with diastolic dysfunction with preserved ejection fraction. The patient will be diuresed by dialysis. Dr. Wilson has been consulted. Strict intake and output daily. Weights and fluid restriction. 2. Chest pain. Most likely due to uncontrolled blood pressure. Patient had a stress test done by Dr. Harden this year which was unremarkable. We will monitor with serial EKG as well as cardiac markers. Continue with his home medications of aspirin, Eliquis, atorvastatin. Currently not on beta-blockade and nitroglycerin as needed. 3. Chronic atrial fibrillation. Rate controlled on chronic Eliquis. 4. Solitary kidney with history of renal cell CA. Dr. Wilson has been consulted for maintenance dialysis. 5. Uncontrolled hypertension on Clonidine and torsemide twice a day. 6. Gout on chronic allopurinol. 7. Anxiety on alprazolam. 8. Hypothyroidism on chronic Synthroid. CODE STATUS: FULL CODE. DIET: Renal diet. MTDD
[2019-01-11] MEDS: LIDOCAINE 5% (LIDODERM) PATCH TD PRN (08:23)
[2019-01-11] MEDS ORDERED: HEPARIN 1,000 UNITS/ML 10ML VIAL (FOR RADIOLOGY& DIALYSIS ONLY) XX ONE (10:15)
[2019-01-11] MEDS ORDERED: HEPARIN 1,000 UNITS/ML 10ML VIAL (FOR RADIOLOGY& DIALYSIS ONLY) IV ONE (10:15)
[2019-01-11 11:32] VITALS: BP 120/62
[2019-01-11 17:58] VITALS: BP 148/78
[2019-01-11 20:00] VITALS: BP 150/68
[2019-01-11] MEDS: **NOTE PATIENT COMMENT** MISC XX SCH (20:09)
--- NOTE | 2019-01-11 20:29 | CR ---
DATE OF CONSULTATION: 01/11/2019 REFERRING PHYSICIAN: Cassy Marte MD REASON FOR CONSULTATION To assist in the management of end-stage renal disease and shortness of breath. HISTORY OF PRESENT ILLNESS Mr. Willson is a 73-year-old gentleman with quite complicated medical problems. He presented to emergency room with shortness of breath and chest pain yesterday and was admitted. He has history of longstanding diabetes, hypertension, coronary artery disease, congestive heart failure and end-stage renal disease. He has a remote history of unilateral nephrectomy and gradually has reached end-stage renal disease and started dialysis a few months ago. He has lost significant amount of weight over a period of time. He has severe pain in his sacral area and has difficulty sitting. He was short of breath and also reported chest pain on admission. The patient missed his dialysis yesterday and also cut down his dialysis on Wednesday due to inability to sit. His need for dialysis a nephrology consultation was requested. The patient is seen this morning. PAST MEDICAL AND SURGICAL HISTORY Significant for longstanding diabetes, hypertension, diastolic congestive heart failure, history of hypertensive heart disease, coronary artery disease, status post CABG, history of chronic degenerative arthritis and severe pain in his tail bone. History of renal cell carcinoma, status post nephrectomy. He has diastolic congestive heart failure and remote history of GI bleed. Past surgical history is significant for left nephrectomy, cataract surgery, colon polypectomy, coronary artery bypass surgery and stents and cataract extraction. ALLERGIES The patient has allergy to PENICILLIN, SULFA, AMLODIPINE, COREG, CEPHAZOLIN, AZITHROMYCIN, MINOXIDIL, HYDRALAZINE, TETRACYCLINE and CONTRAST MEDIA. HOME MEDICATIONS: His home medications include allopurinol 100 mg daily, Xanax 0.5 mg daily as needed for anxiety, Eliquis 2.5 mg twice a day, aspirin 81 mg daily, atorvastatin 40 mg daily, calcitriol 0.25 mcg three times a week, clonidine 0.1 mg patch once a week, cyclobenzaprine 10 mg every 12 hours as needed, glipizide 5 mg daily and Xalatan eye drops both eyes at bedtime. He also takes levothyroxine 88 mcg daily, torsemide 50 mg twice a day and MiraLax 17 grams as needed daily for constipation. PERSONAL AND SOCIAL HISTORY The patient is a retired resident of [place]. Denies any drug, alcohol or tobacco use at present. FAMILY HISTORY: Negative for premature coronary artery disease or end-stage renal disease. REVIEW OF SYSTEMS The patient presented with chest pain and shortness of breath yesterday. Those symptoms have improved. He also had pain in his tail bone which persists and he has difficulty sitting. He denies any fever or chills. Ears, nose and throat are unremarkable. Cardiovascular system negative for chest pain at present or dyspnea. He had shortness of breath and chest pain on admission which has improved. He does have mild chronic leg edema. Respiratory system negative for cough or hemoptysis. GI system negative for vomiting or diarrhea. system is negative for dysuria or hematuria. Musculoskeletal system is significant for chronic lower back pain and some leg edema. Psychosocial system is significant for anxiety and no depression. Neurological system significant for peripheral neuropathy. He denies any history of stroke. Endocrine system significant for hypothyroidism, type 2 diabetes and secondary hyperparathyroidism. Hematological system is significant for anemia of chronic kidney disease. PHYSICAL EXAMINATION Temperature 97.4 degrees Fahrenheit, heart rate 60 per minute and respiratory rate 18 per minute. Blood pressure 120/62 mmHg and oxygen saturation 98% on room air. Head is atraumatic. Pupils equal and reactive to light and sclera is anicteric. Ears, nose and throat are unremarkable. Neck: Supple and without JVD or thyroid enlargement. Heart: Sounds are regular and lungs clear to auscultation. Abdomen: Soft and nontender and without a palpable organomegaly. Extremities: Have no cyanosis or clubbing. Neurologically he is awake, alert and oriented times three. Left arm AV fistula is patent on the medial side of his upper arm. LABORATORY DATA WBC count is 4.2, hemoglobin 10.3 and hematocrit 31.9. Sodium 139, potassium 3.5, CO2 28, BUN 73 and creatinine 4.75. Troponin 0.02. A TSH level is 2.80. PROBLEMS: 1. End-stage renal disease. The patient missed his dialysis yesterday and will go ahead and plan dialysis today. He will be dialyzed this afternoon. 2. Diastolic congestive heart failure. The patient has history of severe edema previously which has improved since he started dialysis. Now he has only minimal lower extremity edema and will try to remove about 2 liters of fluid with dialysis. 3. Hypertension. Blood pressure is very well controlled on current antihypertensive meds. 4 Hypokalemia. His potassium level is only 3.5 and we will dialyze him with 4.0 mEq potassium bath. 5. Anemia. This is chronic and related to end-stage renal disease. Anemia is stable at present and does not need any urgent intervention. 6. Chest pain and shortness of breath, most likely the patient had anxiety and musculoskeletal pain. I do not feel that he has cardiac chest pain. He is completely asymptomatic at the time of my visit. His volume status seems only minimally decompensated, which will improve with dialysis today. Thank you for involving me in the care of Mr. Willson. I will follow him along with you.
[2019-01-12] VITALS (7 sets, daily range): BP systolic 118–174; BP diastolic 59–70; PULSE 69
[2019-01-12] MEDS: MORPHINE 2 MG/ML 1ML VIAL (J2270) IV PRN ×3 (00:59→14:58)
[2019-01-12 06:08] LABS: BASO % 0.8 % (0.0-1.0); EOS # 0.1 10^3/uL (0.0-0.5); HEMOGLOBIN 10.4 g/dl (13.5-17.5); LYMPH # 1.1 10^3/uL (1.5-5.0); LYMPH % 28.7 % (24.0-44.0); MEAN CORPUSCULAR HEMOGLOBIN 29.8 pg (27.0-33.0); MEAN CORPUSCULAR HGB CONC 31.5 g/dl (32.0-36.5); MEAN CORPUSCULAR VOLUME 94.6 fl (80.0-96.0); MONO # 0.4 10^3/uL (0.0-0.8); NEUTROPHILS % 55.2 % (36.0-66.0); PLATELET COUNT, AUTOMATED 138 10^3/uL (150-450); RED BLOOD COUNT 3.49 10^6/uL (4.30-6.10); WHITE BLOOD COUNT 3.7 10^3/uL (4.0-10.0)
[2019-01-12] MEDS: LEVOTHYROXINE 88MCG TABLET (0.088 MG) PO SCH (06:16)
[2019-01-12 06:37] LABS: CALCIUM LEVEL 9.4 MG/DL (8.8-10.2); CREATININE FOR GFR 3.23 MG/DL (0.70-1.30)
[2019-01-12] MEDS: ASPIRIN 81 MG ENTERIC TAB PO SCH (08:04)
[2019-01-12] MEDS: MULTIVITAMINS/MINERALS THERAP 1 TAB PO SCH (08:04)
[2019-01-12] MEDS: APIXABAN 2.5 MG TAB (ELIQUIS) PO SCH ×2 (08:04→20:55)
[2019-01-12] MEDS: TORSEMIDE (DEMADEX) 50 MG PER 1/2 TAB PO SCH ×2 (08:04→18:41)
[2019-01-12] MEDS: ALLOPURINOL 100 MG TAB PO SCH (08:04)
[2019-01-12] MEDS: PANTOPRAZOLE 40MG TAB (PROTONIX) PO SCH (08:04)
[2019-01-12] MEDS: glipiZIDE XL 5 MG TABCR PO SCH (09:18)
[2019-01-12] MEDS: MIRALAX *UNIT DOSE* 17GM PACKET PO SCH (09:20)
[2019-01-12] MEDS: NITROGLYCERIN 0.4 MG SUBL TABLET SL PRN ×2 (10:13→10:27)
[2019-01-12] MEDS: LIDOCAINE 5% (LIDODERM) PATCH TD PRN (10:57)
--- NOTE | 2019-01-12 12:51 | IPN ---
DATE OF SERVICE: 01/12/2019 Mr. Willson is seen this morning on his bedside. He is sitting in the chair and reports recurrent chest pain across his anterior chest and also has pain in his sacral area with difficulty sitting and lying down. He denies any nausea or vomiting. He was dialyzed yesterday due to missed dialysis treatment on Wednesday. On physical examination, temperature 97.4 degrees Fahrenheit, heart rate 74 per minute and respiratory rate 18 per minute. Blood pressure 130/80 mmHg and oxygen saturation 100% on room air. Head is atraumatic. Neck is supple and without jugular venous distention (JVD) or thyroid enlargement. Heart sounds are regular and lungs sound clear to auscultation. Abdomen soft and nontender. Bowel sounds are normal. Extremities have no cyanosis or clubbing. Left arm AV fistula on the medial side and is patent, but not currently being used. Neurologically, he is awake, alert and oriented times three. Today's labs show WBC count 3.7, hemoglobin 10.4 and hematocrit 33.0 with platelets 138. Sodium is 139, potassium 4.0, CO2 29, BUN 37 and creatinine 3.23. Glucose was 65 this morning and calcium 9.4. A fingerstick blood sugar was 89 at 8:00 a.m.. PROBLEMS: 1. End-stage renal disease The patient missed his dialysis on Wednesday and was dialyzed yesterday. We will try to get him back on his regular schedule and dialyze him again this afternoon. 2. Anemia. His anemia is stable at this point and does not need any urgent intervention. 3. Recurrent chest pain. His troponin and CPK have been normal and EKG also did not show any changes. I have discussed with Dr. Leon and suggested to discuss with cardiology and continue with p.r.n. nitroglycerin for now. 4. Pain in the tail bone. This is a chronic issue and we just need to position him for dialysis with cushions to prevent any pressure on his coccyx and sacral area. 5. Hypertension. Blood pressure is well-controlled and current antihypertensive meds are appropriate. No changes are being made today.
--- NOTE | 2019-01-12 16:43 | IPNPDOC ---
Text Note Date of Service The patient was seen on 01/12/19. NOTE SUBJECTIVE: The patient continues to complain primarily of chest pain, but also complains of back pain and sacral pain. The chest pain appears to occur with exertion or at rest. He has some relief with nitroglycerin. He does not have much relief of his back pain and sacral pain. Patient has underlying end-stage renal disease that is hemodialysis requiring. OBJECTIVE: Please see vital signs below Physical exam: HENT: Neck is supple with no adenopathy or thyromegaly. Oral mucosa is moist. Cardiovascular: Regular rate and rhythm with a normal S1 and S2, Respiratory: Clear to auscultation, No tenderness to palpation of his anterior chest wall. Abdomen: Soft, nontender, nondistended. Extremities: No peripheral edema currently, Pedal pulses are palpable, patient has tenderness to palpation at the base of his sacrum Neuro: Patient generally has no focal neuromotor deficits ASSESSMENT/PLAN: 1. Chest pain. Patient continues to have intermittent complaints of chest pain. Sometimes they are associated with exertion. He does not appear to have associated shortness of breath. EKG does not show any acute waveform changes consistent with ischemia or infarction. Serial troponins are negative at less than 0.02 on 3 occasions. Patient has been responsive to nitroglycerin. Patient has had event like this in the past. We have contacted his cardiology group who know him well. He has had evaluation by stress test in the past for a similar episode. Stress test was negative. They're recommending the addition of long-acting nitrate and that he see them in their office. They do not feel he needs transport to [place] for emergent evaluation by angiogram. 2. Hypertension. The patient's primary blood pressure control consists of a clonidine patch and torsemide. Extended release Imdur is added as well. 3. Chronic atrial fibrillation. Patient maintains a controlled rate. He is not on specific rate control medication. He otherwise remains on chronic anticoagulation with Eliquis. 4. End-stage renal disease. Patient has a history of solitary kidney. He has just recently started hemodialysis. He is dialyzing today. 5. Chronic diastolic congestive heart failure. Shortness of breath is being attributed to some mild fluid overload. He has had diuresis via dialysis with good response. VS,Fishbone, I+O VS, Fishbone, I+O Laboratory Tests 01/12/19 05:49 Vital Signs Date Time Temp Pulse Resp B/P (MAP) Pulse Ox O2 Delivery O2 Flow Rate FiO2 01/12/19 14:58 18 01/12/19 12:00 97.6 79 174/67 (102) 100 Room Air I&O- Last 24 Hours up to 6 AM 01/12/19 06:00 Intake Total 960 ml Output Total 2400 ml Balance -1440 ml LEIGH PAREDES MD Jan 12, 2019 16:43
[2019-01-12] MEDS: ISOSORBIDE MON. (IMDUR) 60 MG XR TAB PO SCH (16:46)
[2019-01-12] MEDS: LATANOPROST 0.005% OPHTH SOLN 2.5 ML OU SCH (20:56)
[2019-01-12] MEDS: ATORVASTATIN 20 MG TAB PO SCH (20:56)
[2019-01-12] MEDS: **NOTE PATIENT COMMENT** MISC XX SCH (21:00)
[2019-01-12] MEDS ORDERED: LIDOCAINE 5% (LIDODERM) PATCH TD SCH (21:00)
[2019-01-12] MEDS ORDERED: ULTRACET TAB PO ONE (23:30)
[2019-01-12] MEDS ORDERED: MORPHINE 2 MG/ML 1ML VIAL (J2270) IV ONE (23:30)
[2019-01-13] VITALS (7 sets, daily range): BP systolic 136–162; BP diastolic 62–82; PULSE 78
[2019-01-13] MEDS: LIDOCAINE 5% (LIDODERM) PATCH TD SCH ×2 (00:40→23:19)
--- NOTE | 2019-01-13 01:16 | REPVR ---
PROCEDURE INFORMATION: Exam: XR Lumbosacral Spine, 4 or 5 Views Exam date and time: 01/12/2019 12:33 AM Clinical history: 73 years old, male; Low back pain TECHNIQUE: Imaging protocol: XR of the lumbosacral spine, 4 or 5 views. COMPARISON: CR Hip,AP,LAT to include Pelvis 05/02/2017 9:39 PM FINDINGS: Vertebrae: Degenerative facet arthropathy at L5-S1 bilaterally and to a lesser degree L4-L5. Mild degenerative spurring throughout, greatest from L2-L4. Mild interspace narrowing from L3-L5. Soft tissues: Multiple surgical clips about the abdomen. IMPRESSION: 1. Degenerative disc and bony changes, greatest in the lower lumbar spine. 2. No acute fracture or compression. Electronically signed by: Tarik Palumbo On 01/13/2019 01:16:11 AM
[2019-01-13] MEDS: LEVOTHYROXINE 88MCG TABLET (0.088 MG) PO SCH (05:36)
[2019-01-13 06:28] LABS: BLOOD UREA NITROGEN 26 MG/DL (7-18); CALCIUM LEVEL 9.4 MG/DL (8.8-10.2); CARBON DIOXIDE LEVEL 29 MEQ/L (21-32); CHLORIDE LEVEL 104 MEQ/L (98-107); CREATININE FOR GFR 3.22 MG/DL (0.70-1.30); GLOMERULAR FILTRATION RATE 20.1 (>42); GLUCOSE, FASTING 96 MG/DL (70-100); POTASSIUM SERUM 3.9 MEQ/L (3.5-5.1); SODIUM LEVEL 139 MEQ/L (136-145); TROPONIN I < 0.02 NG/ML (< 0.10)
[2019-01-13] MEDS: ASPIRIN 81 MG ENTERIC TAB PO SCH (08:41)
[2019-01-13] MEDS: PANTOPRAZOLE 40MG TAB (PROTONIX) PO SCH (08:41)
[2019-01-13] MEDS: MIRALAX *UNIT DOSE* 17GM PACKET PO SCH (08:41)
[2019-01-13] MEDS: TORSEMIDE (DEMADEX) 50 MG PER 1/2 TAB PO SCH ×2 (08:41→16:28)
[2019-01-13] MEDS: glipiZIDE XL 5 MG TABCR PO SCH (08:41)
[2019-01-13] MEDS: APIXABAN 2.5 MG TAB (ELIQUIS) PO SCH ×2 (08:41→20:44)
[2019-01-13] MEDS: MULTIVITAMINS/MINERALS THERAP 1 TAB PO SCH ×2 (08:41→09:00)
[2019-01-13] MEDS: CALCITRIOL 0.25 MCG CAP (S0169) PO SCH (08:41)
[2019-01-13] MEDS: ALLOPURINOL 100 MG TAB PO SCH (08:41)
[2019-01-13] MEDS: ISOSORBIDE MON. (IMDUR) 60 MG XR TAB PO SCH (08:42)
[2019-01-13] MEDS: SIMETHICONE 80 MG CHEW TAB PO SCH ×3 (10:38→20:44)
[2019-01-13] MEDS: traMADol 50 MG TAB PO PRN ×2 (10:38→20:45)
[2019-01-13] MEDS ORDERED: SLF 3 ML SYR IV PRN (11:45)
[2019-01-13] MEDS: **NOTE PATIENT COMMENT** MISC XX SCH (12:00)
--- NOTE | 2019-01-13 12:14 | IPN ---
DATE: 01/13/2019 The patient is seen this morning in a chair at bedside. He reported some chest pain yesterday that was relieved with some nitroglycerin. The hospitalist is also trying to manage some of his back pain with some tramadol. He otherwise endorses no complaints at this time. PHYSICAL EXAMINATION: Vitals: His temperature is 97.8, pulse 70, respiratory rate 17, blood pressure 148/62, saturating 96% on room air. His head is atraumatic. Neck is supple without jugular venous distention (JVD) or thyroid enlargement. Heart sounds are regular rate and rhythm. Lungs are clear to auscultation bilaterally. Abdomen is soft and nontender. Bowel sounds normal. Extremities: Show no clubbing or cyanosis. Neurologically, he is alert and oriented times three. LABS: Sodium 139, potassium 3.9, chloride 104, CO2 29, BUN 26, creatinine 3.22, glucose 96. Troponins overnight were negative. PROBLEMS: 1. End stage renal disease. The patient is back on his regular dialysis schedule of Wednesday, , Wednesday. He will be dialyzed again tomorrow. 2. Anemia. A CBC is not checked this morning, but assuming that it was similar, he does not require any urgent intervention. 3. Recurrent chest pain. The patient is okay to continue with his as needed nitroglycerin for now. After discussion with Dr. Leon, there are no further interventions recommended by cardiology and EKG and troponins were negative for any ischemic findings. 4. Tail bone pain. Once again, this is a chronic issue that will likely be better by simple positioning for dialysis and relieving coccygeal and sacral pressure. 5. Hypertension. Blood pressure is well controlled and antihypertensive medications are okay to continue. Will make no changes today.
[2019-01-13] MEDS: LACTULOSE 20 GM/30 ML SYRUP UD PO PRN (14:32)
[2019-01-13] MEDS: SLF 3 ML SYR IV SCH ×2 (14:32→21:53)
--- NOTE | 2019-01-13 18:46 | IPNPDOC ---
Text Note Date of Service The patient was seen on 01/13/19. NOTE SUBJECTIVE: Mr. Willson continues to have multiple complaints. He does not complain much of chest pain today. He continues to complain of back pain and sacral pain. He states he cannot tolerate sitting for dialysis. The patient has underlying end- stage renal disease that is hemodialysis requiring that he has recently commenced. OBJECTIVE: Please see vital signs below Physical exam: HENT: Neck is supple with no adenopathy or thyromegaly. Oral mucosa is moist. Cardiovascular: Regular rate and rhythm with a normal S1 and S2, Respiratory: Clear to auscultation, No tenderness to palpation of his anterior chest wall. Abdomen: Soft, nontender, nondistended. Extremities: No peripheral edema currently, Pedal pulses are palpable, patient has tenderness to palpation to bony prominence at the base of his sacrum Neuro: Patient generally has no focal neuromotor deficits ASSESSMENT/PLAN: 1. Chest pain. Patient continues to have intermittent complaints of chest pain. Sometimes they are associated with exertion. He does not appear to have associated shortness of breath. EKG does not show any acute waveform changes consistent with ischemia or infarction. Serial troponins are negative at less than 0.02 on 3 occasions. Patient has been responsive to nitroglycerin. Patient has had event like this in the past. We have contacted his cardiology group who knows him well. He has had evaluation by stress test in the past for a similar episode. Stress test was negative. They're recommending the addition of long-acting nitrate and that he see them in their office. They do not feel he needs transport to [place] for emergent evaluation by angiogram. 2. Hypertension. The patient's primary blood pressure control consists of a clonidine patch and torsemide. Extended release Imdur is added as well. 3. Chronic atrial fibrillation. Patient maintains a controlled rate. He is not on specific rate control medication. He otherwise remains on chronic anticoagulation with Eliquis. 4. End-stage renal disease. Patient has a history of solitary kidney. He has just recently started hemodialysis. 5. Chronic diastolic congestive heart failure. Shortness of breath is being attributed to some mild fluid overload. He has had diuresis via dialysis with good response. 6. Back pain. This is generally chronic. Review of the patient's medical record and prior films show him to have advanced osteoarthritic degenerative changes, with osteophyte formation to most of his spine. The patient has become focused on a bony prominence to his sacrum and is convinced that this represents dislocation, fracture or other injury. He has not had falls or any other trauma. He again demanded an x-ray last night; again, we see degenerative disease and no acute fracture or compression. We have informed him of these results and that his best course is to find a form of pain control that works for him. He has been somewhat dismissive of lidocaine patches or medications such as tramadol. We continue to suggest different sitting surfaces and perhaps sleeping on his side rather than on his back. VS,Fishbone, I+O VS, Fishbone, I+O Laboratory Tests 01/13/19 05:26 Vital Signs Date Time Temp Pulse Resp B/P (MAP) Pulse Ox O2 Delivery O2 Flow Rate FiO2 01/13/19 12:00 97.3 74 17 136/78 (97) 98 Room Air I&O- Last 24 Hours up to 6 AM 01/13/19 06:00 Intake Total 1100 ml Output Total 1520 ml Balance -420 ml LEIGH PAREDES MD Jan 13, 2019 18:46
[2019-01-13] MEDS: LATANOPROST 0.005% OPHTH SOLN 2.5 ML OU SCH (20:44)
[2019-01-13] MEDS: ATORVASTATIN 20 MG TAB PO SCH (20:44)
[2019-01-14 04:00] VITALS: BP 152/54
[2019-01-14] MEDS: SLF 3 ML SYR IV SCH ×3 (06:00→22:00)
[2019-01-14] MEDS: LEVOTHYROXINE 88MCG TABLET (0.088 MG) PO SCH (06:58)
[2019-01-14] MEDS: APIXABAN 2.5 MG TAB (ELIQUIS) PO SCH ×2 (06:58→20:10)
[2019-01-14] MEDS: ASPIRIN 81 MG ENTERIC TAB PO SCH (06:58)
[2019-01-14] MEDS: TORSEMIDE (DEMADEX) 50 MG PER 1/2 TAB PO SCH ×2 (06:59→17:55)
[2019-01-14] MEDS: ALLOPURINOL 100 MG TAB PO SCH (06:59)
[2019-01-14] MEDS: SIMETHICONE 80 MG CHEW TAB PO SCH ×3 (06:59→20:09)
[2019-01-14] MEDS: ISOSORBIDE MON. (IMDUR) 60 MG XR TAB PO SCH (07:01)
[2019-01-14] MEDS: PANTOPRAZOLE 40MG TAB (PROTONIX) PO SCH (07:01)
[2019-01-14] MEDS: glipiZIDE XL 5 MG TABCR PO SCH (07:01)
[2019-01-14] MEDS: MULTIVITAMINS/MINERALS THERAP 1 TAB PO SCH (07:05)
[2019-01-14] MEDS: MIRALAX *UNIT DOSE* 17GM PACKET PO SCH (07:05)
[2019-01-14 08:00] VITALS: BP 155/60
[2019-01-14] MEDS ORDERED: cloNIDine HCL 0.1 MG/24 HR PATCH TOP SCH (09:00)
[2019-01-14] MEDS: **NOTE PATIENT COMMENT** MISC XX SCH (11:45)
[2019-01-14 12:00] VITALS: BP 135/78
[2019-01-14] MEDS ORDERED: HEPARIN 1,000 UNITS/ML 10ML VIAL (FOR RADIOLOGY& DIALYSIS ONLY) XX ONE (12:00)
[2019-01-14] MEDS ORDERED: HEPARIN 1,000 UNITS/ML 10ML VIAL (FOR RADIOLOGY& DIALYSIS ONLY) IV ONE (12:00)
[2019-01-14] MEDS: traMADol 50 MG TAB PO PRN ×2 (13:00→22:02)
--- NOTE | 2019-01-14 14:45 | IPNPDOC ---
Text Note Date of Service The patient was seen on 01/14/19. NOTE SUBJECTIVE: Patient seen this morning at bedside and states that his low back pain is improved but still there. He says the tramadol has helped with his back pain. He is eager to continue his regular dialysis schedule. Denied any further episodes of chest pain overnight. OBJECTIVE: PHYSICAL EXAM: Vitals: (see below) General: No acute distress, laying comfortably in bed. HEENT: Normocephalic, atraumatic. EOMI. No scleral icterus. Moist mucous membranes. No pharyngeal erythema or uvular deviation. Neck: No JVD, lymphadenopathy, or thyromegaly. Cardiac: RRR, Normal S1 and S2, No murmurs, gallops, rubs. Pulm: Clear to auscultation b/l. Symmetric thorax. No wheezing, crackles, rhonchi. Abd: Abdomen is soft, non-tender, non-distended. Bowel sounds normal. lidocaine patches present on patients lumbosacral area. Ext: 1+ edema bilaterally below the level of the knee. Neuro: No focal neuro deficits LABORATORY DATA, MICROBIOLOGY: Please see below. ASSESSMENT AND PLAN: 1. End-stage renal disease Patient is regularly scheduled for dialysis Wednesday, , Wednesday. He will have hemodialysis this afternoon. 2. Type 2 Diabetes Lowering patient's glipizide from 5 mg daily to 2.5 mg daily as he seems to be having recurrent episodes of hypoglycemia. 3. Anemia Stable, no need for transfusion at this time. 4. Pain in the tail bone. Chronic issue that has been made better with tramadol. We can continue to provide him with cushions when he is at dialysis. 5. Hypertension Blood pressure is well-controlled. Continue current antihypertensive regimen. VS,Fishbone, I+O VS, Fishbone, I+O Vital Signs Date Time Temp Pulse Resp B/P (MAP) Pulse Ox O2 Delivery O2 Flow Rate FiO2 01/14/19 13:00 18 01/14/19 12:00 97.1 59 135/78 (97) 100 Room Air I&O- Last 24 Hours up to 6 AM 01/14/19 06:00 Intake Total 780 ml Output Total 150 ml Balance 630 ml GME ATTESTATION GME ATTESTATION My faculty preceptor for this patient encounter was physically present during the encounter and was fully available. All aspects of the patient interview, examination, medical decision making process, and medical care plan development were reviewed and approved by the faculty preceptor. The faculty preceptor is aware and concurs with the plan as stated in the body of this note and will attest to such by his/her cosignature. ATTENDING NOTE Nephrology Attending Note: Pt was seen and examined at bedside with the resident today AM. Mild persistent pain in coccyx. Persistent 2+ LE edema. Hypoglycemia with Sulfonylurea noted. Assessment: ESRD on HD Chronic LE Edema HTN NIDDM with hypoglycemia Pain in Coccyx Plan: HD today with UF goal 2L Lower the Glipizide to 2.5 mg. cont current antihypertensive LAURA MANJARREZ DO Jan 14, 2019 14:45 DANY JORDAN MD Jan 14, 2019 19:00
--- NOTE | 2019-01-14 15:26 | IPNPDOC ---
Text Note Date of Service The patient was seen on 01/14/19. NOTE SUBJECTIVE: Mr. Willson reports improvement today. He is reporting less pain and improved sleep quality. We have tried tramadol for pain control and he appears to be responding.The patient has underlying end-stage renal disease that is hemodialysis requiring. He states he has not been able to tolerate sitting for dialysis. OBJECTIVE: Please see vital signs below Physical exam: HENT: Neck is supple with no adenopathy or thyromegaly. Oral mucosa is moist. Cardiovascular: Regular rate and rhythm with a normal S1 and S2, Respiratory: Clear to auscultation, No tenderness to palpation of his anterior chest wall. Abdomen: Soft, nontender, nondistended. Extremities: No peripheral edema currently, Pedal pulses are palpable, patient is reporting decreased tenderness to palpation to bony prominence at the base of his sacrum Neuro: Patient generally has no focal neuromotor deficits ASSESSMENT/PLAN: 1. Chest pain. Patient continues to have intermittent complaints of chest pain. Sometimes they are associated with exertion. He does not appear to have associated shortness of breath. EKG does not show any acute waveform changes consistent with ischemia or infarction. Serial troponins are negative at less than 0.02 on 3 occasions. Patient has been responsive to nitroglycerin. Patient has had event like this in the past. We have contacted his cardiology group who knows him well. He has had evaluation by stress test in the past for a similar episode. Stress test was negative. They're recommending the addition of long-acting nitrate and that he see them in their office. They do not feel he needs transport to [place] for emergent evaluation by angiogram. 2. Hypertension. The patient's primary blood pressure control consists of a clonidine patch and torsemide. Extended release Imdur is added as well. 3. Chronic atrial fibrillation. Patient maintains a controlled rate. He is not on specific rate control medication. He otherwise remains on chronic anticoagulation with Eliquis. 4. End-stage renal disease. Patient has a history of solitary kidney. He has just recently started hemodialysis. He has reported inability to sit still for it because of sacral pain. He is reporting relief with tramadol; he wants to see how well he will tolerate hemodialysis today. 5. Chronic diastolic congestive heart failure. Shortness of breath is being attributed to some mild fluid overload. He has had diuresis via dialysis with good response. 6. Back pain. This is generally chronic. Review of the patient's medical record and prior films show him to have advanced osteoarthritic degenerative changes, with osteophyte formation to most of his spine. The patient has become focused on a bony prominence to his sacrum and is convinced that this represents dislocation, fracture or other injury. He has not had falls or any other trauma. He again demanded an x-ray last night; again, we see degenerative disease and no acute fracture or compression. We have informed him of these results and that his best course is to find a form of pain control that works for him. He has been somewhat dismissive of lidocaine patches or medications such as tramadol. We continue to suggest different sitting surfaces and perhaps sleeping on his side rather than on his back. VS,Fishbone, I+O VS, Fishbone, I+O Vital Signs Date Time Temp Pulse Resp B/P (MAP) Pulse Ox O2 Delivery O2 Flow Rate FiO2 01/14/19 13:00 18 01/14/19 12:00 97.1 59 135/78 (97) 100 Room Air I&O- Last 24 Hours up to 6 AM 01/14/19 06:00 Intake Total 780 ml Output Total 150 ml Balance 630 ml LEIGH PAREDES MD Jan 14, 2019 15:26
[2019-01-14 17:48] VITALS: BP 138/58
[2019-01-14 20:00] VITALS: BP 168/64
[2019-01-14] MEDS: LATANOPROST 0.005% OPHTH SOLN 2.5 ML OU SCH (20:09)
[2019-01-14] MEDS: ATORVASTATIN 20 MG TAB PO SCH (20:10)
[2019-01-14] MEDS: LACTULOSE 20 GM/30 ML SYRUP UD PO PRN (22:01)
[2019-01-14] MEDS: LIDOCAINE 5% (LIDODERM) PATCH TD SCH (22:01)
[2019-01-14 23:59] VITALS: BP 162/70
[2019-01-15] VITALS (7 sets, daily range): BP systolic 132–170; BP diastolic 60–74
[2019-01-15] MEDS: traMADol 50 MG TAB PO PRN ×3 (04:08→22:11)
[2019-01-15] MEDS: LEVOTHYROXINE 88MCG TABLET (0.088 MG) PO SCH (05:01)
[2019-01-15] MEDS: SLF 3 ML SYR IV SCH ×3 (05:02→22:12)
[2019-01-15] MEDS ORDERED: GLUCAGON FOR INJ 1 MG VIAL (J1610) SC PRN (05:15)
[2019-01-15] MEDS ORDERED: GLUCOSE 4 GM CHEW TABLET PO PRN (05:15)
[2019-01-15] MEDS ORDERED: DEXTROSE 50% 50 ML SYRINGE IV PRN (05:15)
[2019-01-15] MEDS: HumaLOG INSULIN (NovoLOG) PER UNIT SC SCH ×4 (07:30→20:17)
[2019-01-15] MEDS: PANTOPRAZOLE 40MG TAB (PROTONIX) PO SCH (08:06)
[2019-01-15] MEDS: ISOSORBIDE MON. (IMDUR) 60 MG XR TAB PO SCH (08:07)
[2019-01-15] MEDS: TORSEMIDE (DEMADEX) 50 MG PER 1/2 TAB PO SCH ×2 (08:07→16:23)
[2019-01-15] MEDS: SIMETHICONE 80 MG CHEW TAB PO SCH ×3 (08:07→20:29)
[2019-01-15] MEDS: ASPIRIN 81 MG ENTERIC TAB PO SCH (08:07)
[2019-01-15] MEDS: APIXABAN 2.5 MG TAB (ELIQUIS) PO SCH ×2 (08:07→20:28)
[2019-01-15] MEDS: ALLOPURINOL 100 MG TAB PO SCH (08:07)
[2019-01-15] MEDS: LACTULOSE 20 GM/30 ML SYRUP UD PO PRN ×2 (08:08→22:11)
[2019-01-15] MEDS: glipiZIDE *2.5MG* 1/2 TABLET PO SCH (08:08)
[2019-01-15] MEDS: MIRALAX *UNIT DOSE* 17GM PACKET PO SCH (08:08)
[2019-01-15] MEDS: MULTIVITAMINS/MINERALS THERAP 1 TAB PO SCH (08:08)
[2019-01-15] MEDS: **NOTE PATIENT COMMENT** MISC XX SCH (10:34)
--- NOTE | 2019-01-15 14:33 | IPNPDOC ---
Text Note Date of Service The patient was seen on 01/15/19. NOTE SUBJECTIVE: Mr. Willson is sitting up in a chair at bedside. He is reporting decreased pain to his sacral bone. He states he was able to tolerate dialysis yesterday; tramadol is giving him some pain relief. He is not having any chest pain or shortness of breath. Patient was admitted with complaints of chest pain, raising concern for cardiac event for which he has been ruled out. Patient has underlying chronic kidney disease for which he has recently started dialysis. His current complaint is of constipation. OBJECTIVE: Please see vital signs below Physical exam: HENT: Neck is supple with no adenopathy or thyromegaly. Oral mucosa is moist. Cardiovascular: Regular rate and rhythm with a normal S1 and S2, Respiratory: Clear to auscultation, No tenderness to palpation of his anterior chest wall. Abdomen: Soft, nontender, nondistended. Extremities: No peripheral edema currently, Pedal pulses are palpable, patient is reporting decreased tenderness to palpation to bony prominence at the base of his sacrum Neuro: Patient generally has no focal neuromotor deficits ASSESSMENT/PLAN: 1. Chest pain. Patient had had intermittent complaints of chest pain. Sometimes they were associated with exertion. He did not have associated shortness of breath. EKG did not show any acute waveform changes consistent with ischemia or infarction. Serial troponins are negative at less than 0.02 on 3 occasions. Patient had been responsive to nitroglycerin and has been placed on long-acting nitrate per recommendation of his cardiology group, who knows him well. He will follow-up with them after discharge. 2. Hypertension. The patient's primary blood pressure control consists of a clonidine patch and torsemide. Extended release Imdur is added as well. 3. Chronic atrial fibrillation. Patient maintains a controlled rate. He is not on specific rate control medication. He otherwise remains on chronic anticoagulation with Eliquis. 4. End-stage renal disease. Patient has a history of solitary kidney. He has just recently started hemodialysis. He has reported inability to sit still for it because of sacral pain. He is reporting some relief with tramadol; he was able to tolerate an hour and a half of dialysis without discomfort. 5. Chronic diastolic congestive heart failure. Shortness of breath is being attributed to some mild fluid overload. He has had diuresis via dialysis with good response. 6. Back pain. This is generally chronic. Review of the patient's medical record and prior films show him to have advanced osteoarthritic degenerative changes, with osteophyte formation to most of his spine. The patient has become focused on a bony prominence to his sacrum and was convinced that this represents dislocation, fracture or other injury. He has not had falls or any other trauma. X-ray again showed degenerative disease and no acute fracture or compression. We have informed him of these results and that his best course is to find a form of pain control that works for him. He has been somewhat dismissive of lidocaine patches or medications such as tramadol. We continue to suggest different sitting surfaces and perhaps sleeping on his side rather than on his back. The tramadol appears to be effective. The patient repeatedly introduces obstacles to discharge. He is currently complaining of constipation. He had requested lactulose a couple of days ago. He is also already receiving MiraLAX. We will add additional agents such as senna. VS,Fishbone, I+O VS, Fishbone, I+O Vital Signs Date Time Temp Pulse Resp B/P (MAP) Pulse Ox O2 Delivery O2 Flow Rate FiO2 01/15/19 12:00 97.1 60 18 145/61 (89) 98 01/15/19 08:00 Room Air I&O- Last 24 Hours up to 6 AM 01/15/19 06:00 Intake Total 600 ml Output Total 2000 ml Balance -1400 ml LEIGH PAREDES MD Jan 15, 2019 14:33
[2019-01-15] MEDS ORDERED: SENNA 8.6 MG TAB (SENOKOT) PO PRN (14:45)
--- NOTE | 2019-01-15 16:04 | IPN ---
DATE: 01/15/2019 SUBJECTIVE: Patient was seen and examined at the bedside today morning. He was actually sitting in the sofa. He reports his pain in the lower back is getting better. He was dialyzed yesterday; 2 liters of fluid was removed. He is otherwise hemodynamically stable. Lower extremity edema is improving. OBJECTIVE VITAL SIGNS: Temperature is 97.3 degrees Fahrenheit, blood pressure 155/62, pulse is 53, respiratory rate of 18, saturating 98% on room air. INTAKE AND OUTPUT: Ultrafiltration with hemodialysis was 2 liters yesterday. Weight in the bed scale is 80 kg. PHYSICAL EXAMINATION: GENERAL: Patient is awake, alert, oriented times three, sitting up in the sofa in no apparent distress. HEAD AND NECK EXAM: Extraocular muscles intact. Pupils equally round and reactive to light. Mucous membranes are moist is supple. There is no jugular venous distention (JVD). CARDIOVASCULAR: S1, S2. Regular rate. 1+ edema of the bilateral lower extremities. RESPIRATORY: Mildly decreased breath sounds at the bases, otherwise no active rales or rhonchi. ABDOMEN: Soft, obese. Positive bowel sounds. Nontender. MUSCULOSKELETAL: No clubbing or cyanosis. Pulses are 2+. He has Lidoderm patches on the lower back because of pain. 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 Power is 07/05 in all extremities. LABORATORY REVIEW: Latest complete blood count (CBC)is from three days ago and basic metabolic panel (BMP) is from two days ago. There are no latest labs available. . CURRENT INPATIENT MEDICATIONS: Patient's medications were all reviewed by me. There is no change in the medications today as compared with yesterday. ASSESSMENT AND PLAN: 1. End-stage renal disease. Patient's regular dialysis days are Wednesday, , Wednesday. He was dialyzed yesterday according to his regular schedule next hemodialysis will be on Wednesday. 2. Hypertension with end-stage renal disease. Patient's blood pressures are stable. Continue current dose of clonidine, isosorbide and volume status is being optimized with dialysis. 3. Chronic lower extremity edema. Continue current dose of torsemide 50 mg by mouth twice a day. Rest of the volume management is being done with dialysis. 4. Chronic gout secondary to end-stage renal disease. Continue current dose of allopurinol 100 mg by mouth daily. 5. Secondary hyperparathyroidism. Continue current dose of calcitriol 0.25 mcg by mouth Wednesday, Wednesday, Wednesday. 6. Diabetes mellitus type 2, non-insulin dependent. Glipizide dose was decreased to 2.5 mg by mouth daily because of hypoglycemic episodes. DISPOSITION: Patient is optimized from nephrology standpoint to be discharged home whenever he is cleared from physical therapy.
[2019-01-15] MEDS: ATORVASTATIN 20 MG TAB PO SCH (20:28)
[2019-01-15] MEDS: LATANOPROST 0.005% OPHTH SOLN 2.5 ML OU SCH (20:28)
[2019-01-15] MEDS: LIDOCAINE 5% (LIDODERM) PATCH TD SCH (22:11)
[2019-01-16] VITALS (7 sets, daily range): BP systolic 142–188; BP diastolic 62–88
[2019-01-16] MEDS: SLF 3 ML SYR IV SCH ×3 (06:05→20:40)
[2019-01-16] MEDS: LEVOTHYROXINE 88MCG TABLET (0.088 MG) PO SCH (06:05)
[2019-01-16] MEDS: HumaLOG INSULIN (NovoLOG) PER UNIT SC SCH ×4 (07:30→19:47)
[2019-01-16] MEDS: MULTIVITAMINS/MINERALS THERAP 1 TAB PO SCH (09:00)
[2019-01-16] MEDS: ASPIRIN 81 MG ENTERIC TAB PO SCH (09:45)
[2019-01-16] MEDS: SIMETHICONE 80 MG CHEW TAB PO SCH ×3 (09:46→20:38)
[2019-01-16] MEDS: glipiZIDE *2.5MG* 1/2 TABLET PO SCH (09:46)
[2019-01-16] MEDS: ALLOPURINOL 100 MG TAB PO SCH (09:46)
[2019-01-16] MEDS: PANTOPRAZOLE 40MG TAB (PROTONIX) PO SCH (09:47)
[2019-01-16] MEDS: MIRALAX *UNIT DOSE* 17GM PACKET PO SCH (09:47)
[2019-01-16] MEDS: ISOSORBIDE MON. (IMDUR) 60 MG XR TAB PO SCH (09:47)
[2019-01-16] MEDS: APIXABAN 2.5 MG TAB (ELIQUIS) PO SCH ×2 (09:47→20:38)
[2019-01-16] MEDS: CALCITRIOL 0.25 MCG CAP (S0169) PO SCH (09:47)
[2019-01-16] MEDS: TORSEMIDE (DEMADEX) 50 MG PER 1/2 TAB PO SCH ×2 (09:47→16:58)
[2019-01-16] MEDS: traMADol 50 MG TAB PO PRN ×2 (09:47→15:47)
[2019-01-16] MEDS: **NOTE PATIENT COMMENT** MISC XX SCH (11:13)
--- NOTE | 2019-01-16 12:45 | IPN ---
DATE: 01/16/2019 SUBJECTIVE: Patient seen and examined this morning at bedside sitting up in his chair. He feels like his low back pain continues, but was able to get some sleep last night. He also states that he finally had a bowel movement after 5 days and that he had a pressure when he pees sometimes, he is otherwise doing well and his lower extremity edema is improving. OBJECTIVE: Vital signs: 97 degrees Fahrenheit, pulse 77, respiratory rate 18, blood pressure 146/72, saturating 100% on room air. General: Alert and oriented times three, sitting up comfortably on his sofa, in no acute distress. HEENT: Extraocular muscles intact. Pupils equal round and reactive. Mucous membranes are moist. Neck: Supple. There is no jugular venous distention (JVD). Cardiovascular: Regular rate and rhythm. Normal S1 and S2. 1+ pitting edema in bilateral lower extremities. Respiratory: Clear to auscultation with mild decreased sounds at bases. No wheezes, crackles, or rhonchi. Abdomen: Soft, obese, positive bowel sounds, nontender, nondistended. Musculoskeletal: No clubbing, cyanosis, pulses are 2+. Lidoderm patch is present on low back. Neurologic: No focal neural deficits. ASSESSMENT AND PLAN: 1. End-stage renal disease (ESRD) on hemodialysis. Patient's regular dialysis days are Wednesday, , Wednesday and we plan to dialysis him tomorrow if he is still here. We do not have any further plans for this patient and he is otherwise optimized as sooner physical therapy (PT) clears him and his inpatient team clears him we feel he is okay to go home. 2. Hypertension with end-stage renal disease. Patient's blood pressures are stable. He is okay to continue his current dose of clonidine, isosorbide, and we will continue to monitor his volume status at dialysis. 3. Chronic lower extremity edema. He currently is getting 50 mg of torsemide twice daily by mouth. The rest of the volume management is done at dialysis. 4. Chronic gout. Second to ESRD. Continue current dose of allopurinol 100 mg by mouth. 5. Secondary hyperparathyroidism. Continue current dose of calcitriol 0.25 mcg Wednesday, Wednesday, and Wednesday. 6. Type 2 diabetes. Non-indulin dependent. Okay to continue glipizide doses 2.5 mg by mouth daily because of his hypoglycemic episodes. DISPOSITION: Once again patient is optimized from nephrology standpoint and is okay to be discharged whenever he is cleared by physical therapy and his primary team.
[2019-01-16] MEDS ORDERED: LOSARTAN 50 MG TAB PO ONE (13:00)
[2019-01-16 17:13] LABS: APPEARANCE, URINE HAZY (CLEAR); BACTERIA, URINE AUTO NEGATIVE (NEGATIVE); BILIRUBIN, URINE AUTO NEGATIVE (NEGATIVE); BLOOD, URINE BLOOD 1+ (NEGATIVE); COLOR, URINE YELLOW (YELLOW); GLUCOSE, URINE (UA) AUTO NEGATIVE (NEGATIVE); KETONE, URINE AUTO NEGATIVE (NEGATIVE); LEUKOCYTE ESTERASE, URINE AUTO TRACE (NEGATIVE); NITRITE, URINE AUTO NEGATIVE (NEGATIVE); PROTEIN, URINE AUTO 2+ mg/dL (NEGATIVE); RBC, URINE AUTO 3 /HPF (0-3); SQUAMOUS EPITHELIAL CELL UR AU 1 /HPF (0-6); UROBILINOGEN, URINE AUTO 0.2 mg/dL (0.0-2.0); WBC, URINE AUTO 4 /HPF (0-3)
[2019-01-16] MEDS: ATORVASTATIN 20 MG TAB PO SCH (20:38)
[2019-01-16] MEDS: LIDOCAINE 5% (LIDODERM) PATCH TD SCH (20:39)
[2019-01-16] MEDS: LATANOPROST 0.005% OPHTH SOLN 2.5 ML OU SCH (20:40)
--- NOTE | 2019-01-16 22:02 | IPNPDOC ---
Text Note Date of Service The patient was seen on 01/16/19. NOTE SUBJECTIVE: Mr. Willson continues with daily varied complaints as to why he cannot yet be discharged to home. These have included constipation, diarrhea, dizziness, sacral pain, fatigue. Complaint today is that he is having "difficulty" with urination. Patient has end-stage renal disease that is hemodialysis requiring; hemodialysis is relatively new for him. Additionally, he has a persistent complaint of pain to a bony prominence to his sacrum. He does admit that tramadol has been helpful for this. OBJECTIVE: Please see vital signs below Physical exam: HENT: Neck is supple with no adenopathy or thyromegaly. Oral mucosa is moist. Cardiovascular: Regular rate and rhythm with a normal S1 and S2, Respiratory: Clear to auscultation, No tenderness to palpation of his anterior chest wall. Abdomen: Soft, nontender, nondistended. Extremities: No peripheral edema currently, Pedal pulses are palpable, patient is reporting decreased tenderness to palpation to bony prominence at the base of his sacrum Neuro: Patient generally has no focal neuromotor deficits ASSESSMENT/PLAN: 1. Chest pain. Patient had had intermittent complaints of chest pain. Sometimes they were associated with exertion. He did not have associated shortness of breath. EKG did not show any acute waveform changes consistent with ischemia or infarction. Serial troponins are negative at less than 0.02 on 3 occasions. Patient had been responsive to nitroglycerin and has been placed on long-acting nitrate per recommendation of his cardiology group, who knows him well. He will follow-up with them after discharge. 2. Hypertension. The patient's primary blood pressure control consists of a clonidine patch and torsemide. Extended release Imdur is added as well. 3. Chronic atrial fibrillation. Patient maintains a controlled rate. He is not on specific rate control medication. He otherwise remains on chronic anticoagulation with Eliquis. 4. End-stage renal disease. Patient has a history of solitary kidney. He has just recently started hemodialysis. He has reported inability to sit still for it because of sacral pain. He is reporting some relief with tramadol; he was able to tolerate an hour and a half of dialysis without discomfort. 5. Chronic diastolic congestive heart failure. Shortness of breath is being attributed to some mild fluid overload. He has had diuresis via dialysis with good response. 6. Back pain. This is generally chronic. Review of the patient's medical record and prior films show him to have advanced osteoarthritic degenerative changes, with osteophyte formation to most of his spine. The patient has become focused on a bony prominence to his sacrum and was convinced that this represents dislocation, fracture or other injury. He has not had falls or any other trauma. X-ray again showed degenerative disease and no acute fracture or compression. We have informed him of these results and that his best course is to find a form of pain control that works for him. He has been somewhat dismissive of lidocaine patches or medications such as tramadol. We continue to suggest different sitting surfaces and perhaps sleeping on his side rather than on his back. The tramadol appears to be effective. The patient repeatedly introduces obstacles to discharge. He had complained of constipation. He had requested lactulose a couple of days ago. He was also already receiving MiraLAX. He reports bowel movements with senna. He is now complaining of difficulty with urination. He does not wish to leave the hospital and so he will likely have his usual hemodialysis as an inpatient tomorrow. VS,Fishbone, I+O VS, Fishbone, I+O Vital Signs Date Time Temp Pulse Resp B/P (MAP) Pulse Ox O2 Delivery O2 Flow Rate FiO2 01/16/19 19:48 98.1 75 18 150/62 (91) 99 Room Air I&O- Last 24 Hours up to 6 AM 01/16/19 06:00 Intake Total 900 ml Output Total 200 ml Balance 700 ml LEIGH PAREDES MD Jan 16, 2019 22:02
[2019-01-17] VITALS: BP 158/64
[2019-01-17] MEDS: MORPHINE 2 MG/ML 1ML VIAL (J2270) IV PRN ×4 (00:01→23:15)
[2019-01-17 04:00] VITALS: BP 140/64
[2019-01-17] MEDS: LEVOTHYROXINE 88MCG TABLET (0.088 MG) PO SCH (06:51)
[2019-01-17] MEDS: SLF 3 ML SYR IV SCH ×3 (06:51→20:24)
[2019-01-17] MEDS: ASPIRIN 81 MG ENTERIC TAB PO SCH (06:52)
[2019-01-17] MEDS: glipiZIDE *2.5MG* 1/2 TABLET PO SCH (06:52)
[2019-01-17] MEDS: traMADol 50 MG TAB PO PRN (06:53)
[2019-01-17] MEDS: HumaLOG INSULIN (NovoLOG) PER UNIT SC SCH (07:27)
[2019-01-17] MEDS: TORSEMIDE (DEMADEX) 50 MG PER 1/2 TAB PO SCH ×2 (07:53→17:03)
[2019-01-17] MEDS: PANTOPRAZOLE 40MG TAB (PROTONIX) PO SCH (07:54)
[2019-01-17] MEDS: MULTIVITAMINS/MINERALS THERAP 1 TAB PO SCH (07:55)
[2019-01-17] MEDS: APIXABAN 2.5 MG TAB (ELIQUIS) PO SCH (07:55)
[2019-01-17] MEDS: MIRALAX *UNIT DOSE* 17GM PACKET PO SCH (07:56)
[2019-01-17 08:01] VITALS: BP 140/60
[2019-01-17 09:32] LABS: BASO # 0.1 10^3/uL (0.0-0.2); EOS # 0.1 10^3/uL (0.0-0.5); EOS % 2.2 % (0.0-3.0); HEMOGLOBIN 10.1 g/dl (13.5-17.5); LYMPH % 20.5 % (24.0-44.0); MEAN CORPUSCULAR HEMOGLOBIN 29.8 pg (27.0-33.0); MEAN CORPUSCULAR HGB CONC 31.6 g/dl (32.0-36.5); MEAN CORPUSCULAR VOLUME 94.4 fl (80.0-96.0); MONO # 0.4 10^3/uL (0.0-0.8); MONO % 8.9 % (0.0-5.0); NEUTROPHILS # 3.3 10^3/uL (1.5-8.5); PLATELET COUNT, AUTOMATED 160 10^3/uL (150-450); RED BLOOD COUNT 3.39 10^6/uL (4.30-6.10); WHITE BLOOD COUNT 4.9 10^3/uL (4.0-10.0)
[2019-01-17 09:36] LABS: ALBUMIN 3.5 GM/DL (3.2-5.2); CALCIUM LEVEL 9.6 MG/DL (8.8-10.2); CREATININE FOR GFR 4.97 MG/DL (0.70-1.30); GLOMERULAR FILTRATION RATE 12.2 (>42); PHOSPHORUS LEVEL 3.7 MG/DL (2.5-4.9); POTASSIUM SERUM 4.5 MEQ/L (3.5-5.1)
[2019-01-17] MEDS ORDERED: HEPARIN 1,000 UNITS/ML 10ML VIAL (FOR RADIOLOGY& DIALYSIS ONLY) XX ONE (10:15)
[2019-01-17] MEDS ORDERED: HEPARIN 1,000 UNITS/ML 10ML VIAL (FOR RADIOLOGY& DIALYSIS ONLY) IV ONE (10:15)
[2019-01-17] MEDS: ALLOPURINOL 100 MG TAB PO SCH (12:39)
[2019-01-17] MEDS: ISOSORBIDE MON. (IMDUR) 60 MG XR TAB PO SCH (12:40)
[2019-01-17] MEDS: **NOTE PATIENT COMMENT** MISC XX SCH (12:40)
[2019-01-17] MEDS: SIMETHICONE 80 MG CHEW TAB PO SCH ×3 (12:40→20:22)
[2019-01-17 13:15] VITALS: BP 160/64
--- NOTE | 2019-01-17 13:18 | IPN ---
DATE OF SERVICE: 01/17/2019 SUBJECTIVE: The patient was seen and examined at the bedside today morning during hemodialysis. He is tolerating the hemodialysis procedure well. The patient reports moderate persistent lower back pain which is not getting better. He also complains of dysuria, but he denies any fevers or chills. OBJECTIVE: Vital Signs: Temperature is 97.5 degrees Fahrenheit, blood pressure 140/60, pulse is 76, respiratory rate of 18, saturating 100% on room air. Intake and Output: Urine output recorded is at 350 mL so far since overnight. Weight in the bed scale is 77.5, kg. PHYSICAL EXAMINATION: General: The patient is awake, alert, oriented times three, laying in bed, getting hemodialysis done. Head and Neck Exam: Extraocular muscles intact. Pupils equally round and reactive to light. Mucous membranes are moist. Neck is supple. There is no jugular venous distention (JVD). Cardiovascular: S1 and S2, regular rate. 1+ edema of the bilateral lower extremities. Respiratory: Chest is clear to auscultation bilaterally. Bilateral equal air entry. No rales or rhonchi. Abdomen: Soft. Positive bowel sounds. Nontender. No organomegaly. Musculoskeletal: No clubbing or cyanosis. 1+ edema of the extremities. GEAR GRINDER: No focal deficit. Power is 5/5 in all extremities. LAB REVIEW: CBC showed WBC 4.9, hemoglobin 10.1, platelets are 160. Urinalysis done yesterday showed 2+ protein, 1+ blood, trace leukocyte esterase ,4 WBCs. BMP showed sodium 135, potassium 4.5, chloride 99, bicarb 27, BUN 56, creatinine is 4.9. IMAGING: I have ordered a CAT scan of the lumbar spine done today. Imaging is done. Official report is pending. CURRENT INPATIENT MEDICATIONS: The patient's medications were all reviewed by me. There is no change in the medications today as compared with yesterday. ASSESSMENT/PLAN: 1. End-stage renal disease on hemodialysis. The patient's regular dialysis days are Wednesday, , Wednesday. He is being dialyzed according to his regular schedule. Ultrafiltration goal is at least 2 kg as tolerated by his blood pressure. 2. Hypertension with hypertensive heart disease and end-stage renal disease. Blood pressures are well-controlled. Continue current regimen of isosorbide, clonidine and diuretics. 3. Chronic low back pain. The patient got the x-ray of the lumbar spine done which showed degenerative disk disease. He is refusing to have the MRI done. I have ordered CT scan of the lumbosacral spine and official report is still pending. 4. Anemia in end-stage renal disease. The patient's hemoglobin is stable. No need of Aranesp administration at this time.
--- NOTE | 2019-01-17 15:07 | REP ---
CT lumbar spine: 01/17/2019. Indication: Low back pain. Comparison: 06/14/2017. Technique: Unenhanced axial images of the lumbar spine were obtained with sagittal and coronal reconstructions provided. Findings: There is no acute fracture, subluxation or dislocation. No severe spinal canal narrowing is detected. Partially calcified right adrenal mass and postoperative sequelae are redemonstrated and stable. There is no evidence of an erosive osseous lesion. Spondylosis is noted most pronounced anteriorly at L2/L3. Aortoiliac atherosclerotic disease is present. Impression: No acute osseous lumbar spine injury. Electronically Signed by Suraj Low DO 01/17/2019 02:59 P
[2019-01-17 16:00] VITALS: BP 117/70
--- NOTE | 2019-01-17 16:29 | REP ---
Left foot four views: There are no comparisons. There is no fracture or dislocation. There is an accessory ossicle inferolateral to the cuboid. There is an accessory ossicle along the inferior margin of the calcaneal anterior process. There are calcaneal Achilles and plantar spurs. There is osteoarthritis of the great toe MTP articulation. Electronically Signed by Jose Fleming MD 01/17/2019 04:20 P
[2019-01-17] MEDS ORDERED: TRAM50TA2 PO (17:36)
[2019-01-17] MEDS ORDERED: PANT40TA3 PO (17:36)
[2019-01-17 20:00] VITALS: BP 142/60
[2019-01-17] MEDS: ATORVASTATIN 20 MG TAB PO SCH (20:22)
[2019-01-17] MEDS: LIDOCAINE 5% (LIDODERM) PATCH TD SCH (20:23)
[2019-01-17] MEDS: LATANOPROST 0.005% OPHTH SOLN 2.5 ML OU SCH (20:24)
--- NOTE | 2019-01-17 20:36 | DS.PDOC ---
Discharge Summary General Date of Admission Jan 10, 2019 at 23:43 Date of Discharge 01/17/19 Discharge Summary PROCEDURES PERFORMED DURING STAY: None ADMITTING DIAGNOSES: Chest pain. Hypertension. Chronic atrial fibrillation End-stage renal disease Chronic diastolic congestive heart failure Back pain DISCHARGE DIAGNOSES: Chest pain. Hypertension. Chronic atrial fibrillation End-stage renal disease Chronic diastolic congestive heart failure Back pain COMPLICATIONS/CHIEF COMPLAINT: Diastolic Chf, Esrd. HISTORY OF PRESENT ILLNESS:Mr. Willson is a 73-year-old gentleman with quite complicated medical problems. He presented to emergency room with shortness of breath and chest pain yesterday and was admitted. He has history of longstanding diabetes, hypertension, coronary artery disease, congestive heart failure and end-stage renal disease. He has a remote history of unilateral nephrectomy and gradually has reached end-stage renal disease and started dialysis a few months ago. He has lost significant amount of weight over a period of time. He has severe pain in his sacral area and has difficulty sitting. He was short of breath and also reported chest pain on admission. The patient missed his dialysis yesterday and also cut down his dialysis on Wednesday due to inability to sit. HOSPITAL COURSE: During hospital course following issue addressed 1. Chest pain. Patient had had intermittent complaints of chest pain. Sometimes they were associated with exertion. He did not have associated shortness of breath. EKG did not show any acute waveform changes consistent with ischemia or infarction. Serial troponins are negative at less than 0.02 on 3 occasions. Patient had been responsive to nitroglycerin and has been placed on long-acting nitrate per recommendation of his cardiology group, who knows him well. He will follow-up with them after discharge. 2. Hypertension. The patient's primary blood pressure control consists of a clonidine patch and torsemide. Extended release Imdur is added as well. 3. Chronic atrial fibrillation. Patient maintains a controlled rate. He is not on specific rate control medication. He otherwise remains on chronic anticoagulation with Eliquis. 4. End-stage renal disease. Patient has a history of solitary kidney. He has just recently started hemodialysis. He has reported inability to sit still for it because of sacral pain. He is reporting some relief with tramadol; he was able to tolerate an hour and a half of dialysis without discomfort. 5. Chronic diastolic congestive heart failure. Shortness of breath is being attributed to some mild fluid overload. He has had diuresis via dialysis with good response. 6. Back pain. This is generally chronic. Review of the patient's medical record and prior films show him to have advanced osteoarthritic degenerative changes, with osteophyte formation to most of his spine. The patient has become focused on a bony prominence to his sacrum and was convinced that this represents dislocation, fracture or other injury. He has not had falls or any other trauma. X-ray again showed degenerative disease and no acute fracture or compression. We have informed him of these results and that his best course is to find a form of pain control that works for him. He has been somewhat dismissive of lidocaine patches or medications such as tramadol. We continue to suggest different sitting surfaces and perhaps sleeping on his side rather than on his back. The tramadol appears to be effective. The patient repeatedly introduces obstacles to discharge. He had complained of constipation. He had requested lactulose a couple of days ago. He was also already receiving MiraLAX. He reports bowel movements with senna. He is now complaining of difficulty with urination. He does not wish to leave the hospital and so he will likely have his usual hemodialysis as an inpatient tomorrow. DISCHARGE MEDICATIONS: Please see below. ALLERGIES: Please see below. PHYSICAL EXAMINATION ON DISCHARGE: VITAL SIGNS: Please see below. Physical exam: HENT: Neck is supple with no adenopathy or thyromegaly. Oral mucosa is moist. Cardiovascular: Regular rate and rhythm with a normal S1 and S2, Respiratory: Clear to auscultation, No tenderness to palpation of his anterior chest wall. Abdomen: Soft, nontender, nondistended. Extremities: No peripheral edema currently, Pedal pulses are palpable, patient is reporting decreased tenderness to palpation to bony prominence at the base of his sacrum Neuro: Patient generally has no focal neuromotor deficits LABORATORY DATA: Please see below. IMAGING: [facility] NAME: JEANNA WILLSON JR DATE OF : 1945 AGE: 73 SEX: M REPORT #: [id number] ROOM: [facility] TECHNOLOGIST: PATT DOCTOR: DANY JORDAN MD Ordered for Date&Time: 01/17/19 1051 cc: [~ rep ct ivnm] Service Date&Time: This report is in Signed status. If this report is in a DRAFT status it has not yet been reviewed by the radiologist for accuracy. Thank you for having your radiology procedures performed at [facility] RADIOLOGY REPORT Date&Time printed: [~ rep prt dt last] [~ rep prt tm last] Page [address] of [address] [id number] RADIOLOGY REPORT This report is in Signed status. If this report is in a DRAFT status it has not yet been reviewed by the radiologist for accuracy. Thank you for having your radiology procedures performed at [facility] RADIOLOGY REPORT Date&Time printed: [~ rep prt dt last] [~ rep prt tm last] Page 1 of 1 REASON FOR PATIENT VISIT: DIASTOLIC CHF, ESRD REASON FOR EXAM/COMMENT: Persistent low back pain. CT lumbar spine: 01/17/2019. Indication: Low back pain. Comparison: 06/14/2017. Technique: Unenhanced axial images of the lumbar spine were obtained with sagittal and coronal reconstructions provided. Findings: There is no acute fracture, subluxation or dislocation. No severe spinal canal narrowing is detected. Partially calcified right adrenal mass and postoperative sequelae are redemonstrated and stable. There is no evidence of an erosive osseous lesion. Spondylosis is noted most pronounced anteriorly at L2/L3. Aortoiliac atherosclerotic disease is present. Impression: No acute osseous lumbar spine injury. Electronically Signed by Glenn Saeed DO 01/17/2019 02:59 P DD: GLENN SAEED DO 01/17/19 1450 58 DS: DAMASO 01/17/199 01/17/19 145 [~ rep ct labl] PROGNOSIS: Favorable ACTIVITY: [As tolerated]. DIET: Cardiac DISCHARGE PLAN: Continue dialysis DISPOSITION: . Home with home health DISCHARGE INSTRUCTIONS: Take prescribed medications ITEMS TO FOLLOWUP ON ON OUTPATIENT: Follow-up with body piercer and PCP DISCHARGE CONDITION: Stable TIME SPENT ON DISCHARGE: Greater than 20 minutes. Vital Signs/I&Os Vital Signs Date Time Temp Pulse Resp B/P (MAP) Pulse Ox O2 Delivery O2 Flow Rate FiO2 01/17/19 16:00 97.3 74 18 117/70 (86) 100 Room Air I&O- Last 24 Hours up to 6 AM 01/17/19 05:59 Intake Total 580 ml Output Total 300 ml Balance 280 ml Laboratory Data Labs 24H Laboratory Tests 2 01/17/19 06:40: Bedside Glucose (Misc Panel) 103 01/17/19 08:13: Bedside Glucose (Misc Panel) 157H 01/17/19 08:33: Immature Granulocyte % (Auto) 0.4, Neutrophils (%) (Auto) 67.0H, Lymphocytes (%) (Auto) 20.5L, Monocytes (%) (Auto) 8.9H, Eosinophils (%) (Auto) 2.2, Basophils (%) (Auto) 1.0, Neutrophils # (Auto) 3.3, Lymphocytes # (Auto) 1.0L, Monocytes # (Auto) 0.4, Eosinophils # (Auto) 0.1, Basophils # (Auto) 0.1, Nucleated Red Blood Cells % (auto) 0.0, Anion Gap 9, Glomerular Filtration Rate 12.2L, Calcium Level 9.6, Phosphorus Level 3.7, Albumin 3.5 01/17/19 12:49: Bedside Glucose (Misc Panel) 66L 01/17/19 16:43: Bedside Glucose (Misc Panel) 107 CBC/BMP Laboratory Tests 01/17/19 08:33 FSBS Laboratory Tests Test 01/17/19 06:40 01/17/19 08:13 01/17/19 12:49 01/17/19 16:43 Range/Units Bedside Glucose (Misc Panel) 103 157 66 107 83-110 MG/DL Microbiology Microbiology 01/10/19 Blood Culture - Final, Complete NO GROWTH AFTER 5 DAYS 01/10/19 Blood Culture - Final, Complete NO GROWTH AFTER 5 DAYS Discharge Medications Scheduled Allopurinol (Allopurinol) 100 Mg Tablet, 100 MG PO DAILY, (Reported) Apixaban (Eliquis) 2.5 Mg Tablet, 2.5 MG PO BID, (Reported) Aspirin (Aspirin EC) 81 Mg Tabec, 81 MG PO DAILY, (Reported) Atorvastatin Calcium (Atorvastatin Calcium) 40 Mg Tab, 40 MG PO QHS, (Reported) Calcitriol (Calcitriol) 0.25 Mcg Capsule, 0.25 MCG PO 3XW, (Reported) MON, WED, FRI Clonidine (Clonidine) 0.1 Mg Patch.tdwk, 1 PATCH TOP 1XWK, (Reported) Glipizide (Glipizide Xl) 5 Mg Tab.er.24, 5 MG PO DAILY, (Reported) Latanoprost (Xalatan) 0.005 % Zena, 1 DROP OU QHS, (Reported) Levothyroxine Sodium (Levothyroxine Sodium) 88 Mcg Tablet, 88 MCG PO DAILY, (Reported) Multivitamins (Thera M Plus Tablet) 1 Tab Tab, 1 TAB PO DAILY, (Reported) Pantoprazole Sodium (Pantoprazole Sodium) 40 Mg Tablet.dr, 40 MG PO DAILY Polyethylene Glycol 3350 (Miralax) 119 Gm Powder, 17 GM PO DAILY, (Reported) Torsemide (Torsemide) 100 Mg Tablet, 50 MG PO BID, (Reported) 0900, 1700 Scheduled PRN Alprazolam (Alprazolam) 0.5 Mg Tablet, 0.5 MG PO DAILY PRN for ANXIETY, (Reported) Cyclobenzaprine HCl (Cyclobenzaprine HCl) 10 Mg Tablet, 10 MG PO Q12H PRN for MUSCLE SPASMS, (Reported) Lidocaine (Lidoderm) 5 % Dis, 1 PATCH TD DAILY PRN for PAIN, (Reported) APPLY TO LOWER BACK 12H ON 12H OFF Nitroglycerin (Nitrostat) 0.4 Mg Tab.subl, 0.4 MG SL NITRO PRN for CHEST PAIN, (Reported) Tramadol HCl (Tramadol HCl) 50 Mg Tablet, 50 MG PO Q6HP PRN for MODERATE PAIN (PS 5-7) Allergies Coded Allergies: Penicillins (Verified Allergy, Intermediate, rash/itching, 01/10/19) Sulfa (Sulfonamide Antibiotics) (Verified Allergy, Unknown, unknown, 01/10/19) cephalexin (Verified Allergy, Unknown, 01/10/19) erythromycin base (Verified Allergy, Unknown, unknown, 01/10/19) hydralazine (Verified Allergy, Unknown, 01/10/19) Contrast Media (Verified Adverse Reaction, Intermediate, MADE LEG TURN RED, 01/10/19) amlodipine (Verified Adverse Reaction, Intermediate, FLUID RETENTION, 01/10/19) carvedilol (Verified Adverse Reaction, Intermediate, FLUID RETENTION, 01/10/19) Tetracyclines (Verified Adverse Reaction, Mild, ITCHING, 01/10/19) LORETO CESAR DO Jan 17, 2019 20:36
[2019-01-18] VITALS: BP 136/64
[2019-01-18] MEDS: traMADol 50 MG TAB PO PRN ×2 (00:46→10:21)
[2019-01-18 04:00] VITALS: BP 142/70
[2019-01-18] MEDS: LEVOTHYROXINE 88MCG TABLET (0.088 MG) PO SCH (05:36)
[2019-01-18] MEDS: SLF 3 ML SYR IV SCH (05:36)
[2019-01-18 08:00] VITALS: BP 148/68
[2019-01-18] MEDS: TORSEMIDE (DEMADEX) 50 MG PER 1/2 TAB PO SCH (08:58)
[2019-01-18] MEDS: glipiZIDE *2.5MG* 1/2 TABLET PO SCH (08:58)
[2019-01-18] MEDS: ASPIRIN 81 MG ENTERIC TAB PO SCH (08:58)
[2019-01-18] MEDS: MIRALAX *UNIT DOSE* 17GM PACKET PO SCH (08:58)
[2019-01-18 08:59] VITALS: BP 144/70
[2019-01-18] MEDS: SIMETHICONE 80 MG CHEW TAB PO SCH (08:59)
[2019-01-18] MEDS: PANTOPRAZOLE 40MG TAB (PROTONIX) PO SCH (08:59)
[2019-01-18] MEDS: ISOSORBIDE MON. (IMDUR) 60 MG XR TAB PO SCH (08:59)
[2019-01-18] MEDS: ALLOPURINOL 100 MG TAB PO SCH (08:59)
[2019-01-18] MEDS: MULTIVITAMINS/MINERALS THERAP 1 TAB PO SCH (08:59)
[2019-01-18] MEDS: CALCITRIOL 0.25 MCG CAP (S0169) PO SCH (08:59)
[2019-01-18] MEDS ORDERED: APIXABAN 2.5 MG TAB (ELIQUIS) PO SCH (09:00)
[2019-01-18] MEDS: **NOTE PATIENT COMMENT** MISC XX SCH (09:58)
--- NOTE | 2019-01-18 12:42 | IPN ---
DATE: 01/18/2019 SUBJECTIVE: Patient was seen and examined this morning in the hallway and at bedside. He states he is doing well. He tolerated dialysis well yesterday and states he is eager to go home now. He states that he feels like he is having difficulties with urinating and would like something for this. OBJECTIVE: VITAL SIGNS: Temperature 97.9, pulse 68, respiratory rate 18, blood pressure 148/68, saturating 100% on room air. PHYSICAL EXAMINATION: GENERAL: Patient is awake, oriented in no acute distress. HEENT: Extraocular muscles intact. Pupils equal, round, reactive to light. Mucous membranes moist. There is no jugular venous distention (JVD). CARDIOVASCULAR: Regular rate and rhythm. Normal S1, S2, 1+ pitting edema bilateral lower extremities. RESPIRATORY: Clear to auscultation bilaterally with no wheezes, crackles or rhonchi. ABDOMEN: Soft, nontender, nondistended. Positive bowel sounds. NEUROLOGIC: No focal neural deficits. MUSCULOSKELETAL: Patient was seen ambulating with the help of a walker in the hallway. LAB REVIEW: No labs done this morning. CT scan of the lumbar spine showed no evidence of stenosis or fracture. A urinalysis (UA) that was ordered previously was also negative. No medication changes. ASSESSMENT/PLAN: 1. End-stage renal disease on hemodialysis: Patient's regular days are Wednesday, , Wednesday. He was dialyzed yesterday an is okay to continue doing so. 2. Hypertension with hypertensive heart disease and end-stage renal disease: Blood pressures are well controlled. Continue current regimen. 3. Chronic low back pain: Patient got an x-ray of the lumbar spine showing degenerative disc disease. A CT scan was done yesterday that showed similar findings. No acute osseous lumbar spine injury. 4. Anemia and end-stage renal disease (ESRD): The patient's hemoglobin is stable and no need for Aranesp administration at this time. Patient is okay to be discharged from nephrology standpoint and can followup with our office in 1 week.
[2019-01-18] MEDS ORDERED: TAMSULOSIN 0.4 MG CAP PO SCH (21:00)
== END 2019-01-18 13:35 | disposition home or self-care (01) | DRG 291 ==
LOC: M ED 19:32 → M ED INP 23:43 → M PCU 01-11 01:33
PROVIDERS: ADMIT General Practice; ATTEND Internal Medicine
PROC: 5A1D70Z Performance of Urinary Filtration, Intermittent, Less than 6 Hours Per Day (ICD-10-PCS; principal; 2019-01-11)
DX: I13.2 Hypertensive heart and chronic kidney disease with heart failure and with stage 5 chronic kidney disease, or end stage renal disease (principal); N18.6 End stage renal disease; I50.32 Chronic diastolic (congestive) heart failure; I48.20 Chronic atrial fibrillation, unspecified; N25.81 Secondary hyperparathyroidism of renal origin; E87.70 Fluid overload, unspecified; E11.22 Type 2 diabetes mellitus with diabetic chronic kidney disease; I25.10 Atherosclerotic heart disease of native coronary artery without angina pectoris; E87.6 Hypokalemia; R63.4 Abnormal weight loss; H40.9 Unspecified glaucoma; Z85.528 Personal history of other malignant neoplasm of kidney; Z90.5 Acquired absence of kidney; Z99.2 Dependence on renal dialysis; E03.9 Hypothyroidism, unspecified; D63.1 Anemia in chronic kidney disease; M10.30 Gout due to renal impairment, unspecified site; F41.9 Anxiety disorder, unspecified; R07.89 Other chest pain; K57.30 Diverticulosis of large intestine without perforation or abscess without bleeding; E11.42 Type 2 diabetes mellitus with diabetic polyneuropathy; Z98.49 Cataract extraction status, unspecified eye; K59.00 Constipation, unspecified; Z86.010 Personal history of colon polyps; Z95.5 Presence of coronary angioplasty implant and graft; Z79.01 Long term (current) use of anticoagulants; Z79.899 Other long term (current) drug therapy; Z88.0 Allergy status to penicillin; Z88.2 Allergy status to sulfonamides; Z88.8 Allergy status to other drugs, medicaments and biological substances; Z88.1 Allergy status to other antibiotic agents; Z91.041 Radiographic dye allergy status; Z79.82 Long term (current) use of aspirin

== ENCOUNTER 2019-03-04 11:45 | Emergency (ER) | payer MEDICARE ==
[~2019-03-04] VITALS: Ht 188 cm; Wt 77.3 kg
[~2019-03-04 11:45] MED LIST changes: +ALLO100T PO; +CALC1CAP31 PO; +CLON0.1D3 TOP; +ELIQ2.5T PO; +OMEP-172 PO; -OMEP20CA4 PO; +PANT40TA3 PO; +TRAM50TA2 PO
[2019-03-04 12:25] LABS: BASO % 0.9 % (0.0-1.0); EOS # 0.1 10^3/uL (0.0-0.5); EOS % 2.3 % (0.0-3.0); HEMATOCRIT 34.7 % (42.0-52.0); HEMOGLOBIN 10.9 g/dl (13.5-17.5); LYMPH # 0.7 10^3/uL (1.5-5.0); MEAN CORPUSCULAR HEMOGLOBIN 29.9 pg (27.0-33.0); MEAN CORPUSCULAR HGB CONC 31.4 g/dl (32.0-36.5); MEAN CORPUSCULAR VOLUME 95.1 fl (80.0-96.0); MONO # 0.4 10^3/uL (0.0-0.8); MONO % 8.6 % (0.0-5.0); NEUTROPHILS % 70.7 % (36.0-66.0); PLATELET COUNT, AUTOMATED 130 10^3/uL (150-450); RED BLOOD COUNT 3.65 10^6/uL (4.30-6.10); WHITE BLOOD COUNT 4.3 10^3/uL (4.0-10.0)
[2019-03-04] MEDS ORDERED: LACT10SO29 PO (12:33)
[2019-03-04 12:40] LABS: INR 1.38; PARTIAL THROMBOPLASTIN TIME 33.8 SECONDS (25.0-38.4); PROTHROMBIN TIME 16.7 SECONDS (11.8-14.0)
[2019-03-04 12:58] LABS: ALBUMIN 3.6 GM/DL (3.2-5.2); ALT/SGPT 19 U/L (12-78); BILIRUBIN,DIRECT 0.2 MG/DL (0.0-0.2); BILIRUBIN,TOTAL 0.8 MG/DL (0.2-1.0); BLOOD UREA NITROGEN 40 MG/DL (7-18); CALCIUM LEVEL 9.3 MG/DL (8.8-10.2); CARBON DIOXIDE LEVEL 28 MEQ/L (21-32); CHLORIDE LEVEL 100 MEQ/L (98-107); CK-MB VALUE MASS 1.1 NG/ML (<3.6); CPK CREATINE PHOSPHOKINASE 73 U/L (39-308); CREATININE FOR GFR 4.11 MG/DL (0.70-1.30); GLOMERULAR FILTRATION RATE 15.2 (>42); GLUCOSE, FASTING 142 MG/DL (70-100); LIPASE 152 U/L (73-393); MB/CK RELATIVE INDEX 1.51 (< OR =4); POTASSIUM SERUM 3.8 MEQ/L (3.5-5.1); SODIUM LEVEL 139 MEQ/L (136-145); TROPONIN I < 0.02 NG/ML (< 0.10)
--- NOTE | 2019-03-04 13:48 | REP ---
REASON: Assess for aneurysm. Multiple ultrasonographic images of the AV fistula in the left upper extremity shows evidence of patency and no evidence of aneurysmal dilatation. Electronically Signed by oJsé Guy DO 03/04/2019 01:57 P
--- NOTE | 2019-03-04 13:49 | REP ---
REASON: Chest pain. COMPARISON: 01/10/2019. There is cardiomegaly accentuated by technique. The technique utilized in obtaining the radiograph has magnified the cardiac silhouette and accentuated the interstitial markings. There is no change in the lung davis. The central venous catheter tip is again seen in the superior vena cava. There are no new abnormal opacities. There is no change in the osseous structures. IMPRESSION:No change. Electronically Signed by José Guy DO 03/04/2019 01:57 P
[2019-03-04 13:57] VITALS: BP 160/80
--- NOTE | 2019-03-04 19:00 | ECGEPIP ---
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
== END 2019-03-04 14:01 | disposition home or self-care (01) ==
LOC: M ED 11:45
DX: T82.848A Pain due to vascular prosthetic devices, implants and grafts, initial encounter (principal); X58.XXXA Exposure to other specified factors, initial encounter; Y92.89 Other specified places as the place of occurrence of the external cause; I50.9 Heart failure, unspecified; I11.0 Hypertensive heart disease with heart failure; E11.9 Type 2 diabetes mellitus without complications; N18.6 End stage renal disease; I48.91 Unspecified atrial fibrillation; Z79.899 Other long term (current) drug therapy; Z79.82 Long term (current) use of aspirin; Z79.84 Long term (current) use of oral hypoglycemic drugs; Z79.01 Long term (current) use of anticoagulants; Z88.0 Allergy status to penicillin; Z88.1 Allergy status to other antibiotic agents; Z88.2 Allergy status to sulfonamides; Z88.8 Allergy status to other drugs, medicaments and biological substances; Z91.041 Radiographic dye allergy status

== ENCOUNTER 2019-03-27 10:28 | Inpatient (IN) | payer MEDICARE ==
[~2019-03-27] VITALS: Ht 188 cm; Wt 80.2 kg
[2019-03-27] VITALS (8 sets, daily range): BP systolic 130–177; BP diastolic 70–88
[~2019-03-27 10:28] MED LIST changes: -GLIM4TAB3 PO; +GLIM4TAB5 PO; +LACT10SO29 PO; +LIDOCAINE 1% MDV 20ML VIAL SQ PRN; +LR 1,000 ML IV ONE; -OMEP-172 PO; +OMEP1CAP73 PO; +VANCOMYCIN HCL 1,000 MG, VIAL MATE ADAPTER 1 EACH in D5W 250 ML IV ONE
[2019-03-27] MEDS ORDERED: LABETALOL HCL 100 MG/20 ML VIAL ONE (10:29)
[2019-03-27] MEDS ORDERED: BUPIVACAINE/EPIN 0.25% 30 ML VIAL As Ordered ONE (11:59)
[2019-03-27] MEDS ORDERED: HEPARIN SOD (PORCINE) 5000 UNITS/ML VIAL As Ordered ONE (11:59)
[2019-03-27] MEDS ORDERED: NS 1,000 ML IV SCH ×2 (12:30→14:45)
[2019-03-27] MEDS ORDERED: BUPIVACAINE/EPIN 0.5% 30 ML VIAL As Ordered ONE (12:35)
[2019-03-27] MEDS ORDERED: MIDAZOLAM INJ 2 MG/2 ML VIAL (J2250) As Ordered ONE (12:43)
[2019-03-27] MEDS ORDERED: LIDOCAINE 2% INJ 100 MG/5 ML SDV (FOR ANES.) As Ordered ONE (12:43)
[2019-03-27] MEDS ORDERED: METOCLOPRAMIDE INJ 10MG/2ML VIAL (J2765) As Ordered ONE (12:43)
[2019-03-27] MEDS ORDERED: fentaNYL 250 MCG/5 ML INJECTION (J3010) As Ordered ONE (12:43)
[2019-03-27] MEDS ORDERED: ONDANSETRON 4MG/2ML VIAL (J2405) As Ordered ONE (12:43)
[2019-03-27] MEDS ORDERED: propofoL 200 MG/20 ML VIAL As Ordered ONE (12:43)
[2019-03-27] MEDS ORDERED: dexameTHASONE 4 MG/ML 1ML VIAL (J1100) As Ordered ONE (12:43)
[2019-03-27] MEDS ORDERED: DESFLURANE 240 ML INHALANT As Ordered ONE (13:33)
[2019-03-27] MEDS ORDERED: ACETAMINOPHEN TAB 650MG DOSE (2X325MG) PO PRN ×2 (14:30→16:15)
--- NOTE | 2019-03-27 14:42 | ROOPDOC ---
[facility] Report Of Operation Report of Operation DATE OF PROCEDURE: 03/27/19 PREPROCEDURE DIAGNOSES: End-stage renal disease with left upper extremity brachial basilic AV fistula too deep for cannulation POSTPROCEDURE DIAGNOSES: Same PROCEDURE: Left basilic vein transposition SURGEON: Nadiya Marie MD ANESTHESIA: LMA anesthesia and local INDICATION FOR PROCEDURE: Mr. Willson is a very pleasant 73-year-old gentleman with end-stage renal disease currently dialyzing with a right IJ PermCath, status post a left brachial basilic AV fistula. The fistula is well matured. It is too deep for cannulation. We the risks benefits and alternatives to a left basilic vein transposition and the patient is agreeable to proceed. Informed consent was obtained. REPORT OF OPERATION: The patient was brought to the operating room in stable condition and placed supine on the order table. LMA anesthesia and antibiotics were administered without complication. His left upper extremity was prepped and draped in a sterile fashion. A timeout was performed. Local anesthesia was administered to the skin and subcutaneous tissue over the basilic vein. A skin knife was used to make a curvilinear incision over the basilic vein in the upper arm. This was carried down through the subcutaneous tissue Bovie cautery. The vein was encountered and skeletonized proximally and distally within the incision. Branches were suture ligated and divided. We were able to completely free the vein throughout its length in the upper arm. We then carefully mobilized the vein from under the nerves, preserving the nerves. Bulldog clamps were placed proximally and distally on the vein. The vein was transected near the AV anastomosis with a long bevel. A tunneler was then used to tunnel the vein over the bicep taking care not to twist the vein and keep its correct orientation. We then performed and and and anastomosis of the vein with 6-0 Prolene suture, after spatulating both ends. Care was taken not to pursestring narrow the vein at the anastomosis. Prior to restoring flow and placing her final sutures, we flushed the inflow and outflow with heparinized saline. Final sutures are placed in flow was restored. A good thrill was noted. The vein was superficial and easy to palpate over the bicep. There was a good signal on Doppler throughout with no areas of stenosis noted on Doppler. We then irrigated with copious amounts of saline. The space in the upper arm was approximated with interrupted Vicryl sutures. We then closed the fascia with a running 2-0 Vicryl suture. We then closed the dermal layer with a running 2-0 Vicryl suture. We close the skin with a 4-0 Monocryl subcuticular suture. Mastisol and Steri- Strips were placed the length of the incision. We gently wrap the arm with K erlix to provide padding and protect the arm. The patient was then allowed to awaken from anesthesia was taken to recovery in stable condition. There were no complications and he tolerated the procedure well. ESTIMATED BLOOD LOSS: Approximately 25 mL. COMPLICATIONS: None. PLAN: Because the patient is on anticoagulation, and because he lives at home alone with no one to monitor him tonight, we will plan to admit him postop in order to make sure he does not have any issues with bleeding in his left upper extremity status post basilic vein transposition. We will admit the patient to the hospitalist service and consult to our nephrology colleagues to arrange dialysis tomorrow. NADIYA MARIE MD Mar 27, 2019 14:42
[2019-03-27] MEDS ORDERED: fentaNYL 100 MCG/2 ML INJECTION (J3010) IV PRN (14:45)
[2019-03-27] MEDS ORDERED: ONDANSETRON 4MG/2ML VIAL (J2405) IV PRN (14:45)
[2019-03-27] MEDS ORDERED: PERCOCET 5MG/325MG TAB PO PRN (14:45)
[2019-03-27] MEDS ORDERED: METOCLOPRAMIDE INJ 10MG/2ML VIAL (J2765) IV PRN (14:45)
[2019-03-27] MEDS: LABETALOL HCL 100 MG/20 ML VIAL IV SCH ×5 (14:53→15:20)
[2019-03-27] MEDS ORDERED: LACTULOSE 20 GM/30 ML SYRUP UD PO PRN (16:15)
[2019-03-27] MEDS ORDERED: ALPRAZolam 0.5 MG TAB PO PRN (16:15)
[2019-03-27] MEDS ORDERED: GLUCAGON FOR INJ 1 MG VIAL (J1610) SC PRN (16:15)
[2019-03-27] MEDS ORDERED: DEXTROSE 50% 50 ML SYRINGE IV PRN (16:15)
[2019-03-27] MEDS ORDERED: GLUCOSE 4 GM CHEW TABLET PO PRN (16:15)
[2019-03-27] MEDS: PERCOCET 5MG/325MG TAB PO PRN (17:07)
[2019-03-27] MEDS: HumaLOG INSULIN (NovoLOG) PER UNIT SC SCH ×2 (17:30→21:00)
--- NOTE | 2019-03-27 20:27 | HPE ---
DATE OF ADMISSION: 03/27/2019 ATTENDING PHYSICIAN: Hospitalist group. SURGEON: Barb Marie MD PASTE UP ARTIST: Nephrology group. PRIMARY CARE PROVIDER: Sebastian Gaitan, [facility]. HISTORY: Jose Antonio Willson is admitted to the hospitalist service after undergoing a left basilic vein transposition today by Dr. Marie because of his anticoagulation and social situation (lives home alone, no one to monitor him). He is being admitted overnight for observation. The patient has a past medical history of end-stage renal disease on maintenance dialysis Wednesday, , Wednesday, diastolic congestive heart failure, hypertensive heart disease, coronary artery disease status post coronary artery bypass graft (CABG), type 2 diabetes, chronic arthritis, chronic coccygeal pain. He is status post left nephrectomy for renal cell carcinoma. He has had cataract surgery, colon polypectomy, coronary artery bypass grafting and subsequent stenting, cataract extractions. ALLERGIES: PENICILLIN, SULFA, AMLODIPINE, CARVEDILOL, CEPHALOSPORINS, AZITHROMYCIN, MINOXIDIL, HYDRALAZINE, TETRACYCLINE, and CONTRAST MATERIAL. SOCIAL HISTORY: Does not smoke or drink any alcohol. Lives alone. FAMILY HISTORY: Noncontributory. REVIEW OF SYSTEMS: No chest pain, shortness of breath, or palpitations. HOME MEDICATIONS: See reconciliation list. PHYSICAL EXAMINATION: Blood pressure 169/79, pulse 72, respiratory rate 18, temperature 97.2 degrees, 98% oxygen saturation. General appearance: Elderly male, lying in bed, in no distress. HEENT: Unremarkable. Good carotid upstrokes. Lungs: Clear. Heart: Regular rhythm, 1/6 systolic ejection murmur. Abdomen: Soft, nontender, no masses. Extremities: Shows 1+ edema left leg, which is chronic. No clubbing or cyanosis. Pulses decreased in both feet but palpable. His nails are in a very poor state of repair, dystrophic, and quite long and skewed. LABORATORY DATA: He had a potassium of 3.8 today. IMPRESSION: 1. Status post left basilic vein transposition, first surgery. He is being admitted for observation. Continue Eliquis 2.5 mg twice a day. Could be discharged tomorrow after dialysis. 2. End-stage renal disease. Continue dialysis Wednesday, , Wednesday by nephrology, they have been consulted. 3. History of gout. Continue allopurinol 100 mg daily. 4. Hyperlipidemia. Continue atorvastatin 40 mg daily. 5. Hypertension. Continue clonidine 0.1 mg per week patch and torsemide 50 mg twice a day. His blood pressure is up in the recovery room, I suspect it was probably situational. Continue clonidine to avoid rebound hypertension. 6. Hypothyroidism. Continue current dose of levothyroxine 88 mcg daily. 7. Chronic constipation. Continue MiraLAX and lactulose that he takes on an as needed basis. 8. Type 2 diabetes. Hold his glipizide until his oral intake is assured. Sliding scale insulin coverage in the interim.
[2019-03-27] MEDS: APIXABAN 2.5 MG TAB (ELIQUIS) PO SCH (21:00)
[2019-03-27] MEDS: ATORVASTATIN 20 MG TAB PO SCH (21:40)
[2019-03-27] MEDS: LATANOPROST 0.005% OPHTH SOLN 2.5 ML OU SCH (23:10)
[2019-03-28] MEDS: PERCOCET 5MG/325MG TAB PO PRN ×2 (01:19→08:25)
[2019-03-28 02:00] VITALS: BP 140/80
[2019-03-28 06:00] VITALS: BP 148/68
[2019-03-28] MEDS: MIRALAX *UNIT DOSE* 17GM PACKET PO SCH (06:18)
[2019-03-28] MEDS: ASPIRIN 81 MG ENTERIC TAB PO SCH (06:18)
[2019-03-28] MEDS: TORSEMIDE (DEMADEX) 50 MG PER 1/2 TAB PO SCH ×2 (06:18→18:50)
[2019-03-28] MEDS: allopurinoL 100 MG TAB PO SCH (06:19)
[2019-03-28] MEDS: MULTIVITAMINS/MINERALS THERAP 1 TAB PO SCH ×2 (06:19→06:38)
[2019-03-28] MEDS: LEVOTHYROXINE 88MCG TABLET (0.088 MG) PO SCH (06:19)
[2019-03-28] MEDS: PANTOPRAZOLE 40MG TAB (PROTONIX) PO SCH (06:19)
[2019-03-28] MEDS: APIXABAN 2.5 MG TAB (ELIQUIS) PO SCH ×2 (06:20→20:42)
[2019-03-28 06:22] LABS: HEMATOCRIT 32.7 % (42.0-52.0); HEMOGLOBIN 10.5 g/dl (13.5-17.5); MEAN CORPUSCULAR HEMOGLOBIN 29.7 pg (27.0-33.0); MEAN CORPUSCULAR HGB CONC 32.1 g/dl (32.0-36.5); MEAN CORPUSCULAR VOLUME 92.6 fl (80.0-96.0); PLATELET COUNT, AUTOMATED 137 10^3/uL (150-450); RED BLOOD COUNT 3.53 10^6/uL (4.30-6.10); WHITE BLOOD COUNT 4.4 10^3/uL (4.0-10.0)
[2019-03-28 06:54] LABS: ALBUMIN 3.3 GM/DL (3.2-5.2); CALCIUM LEVEL 9.5 MG/DL (8.8-10.2); CREATININE FOR GFR 4.07 MG/DL (0.70-1.30); GLOMERULAR FILTRATION RATE 15.4 (>42); PHOSPHORUS LEVEL 3.5 MG/DL (2.5-4.9)
[2019-03-28] MEDS: HumaLOG INSULIN (NovoLOG) PER UNIT SC SCH ×4 (07:30→20:36)
--- NOTE | 2019-03-28 09:05 | IPNPDOC ---
Text Note Date of Service The patient was seen on 03/28/19. NOTE Vascular surgery. Dr. Marie. HPI: Mr Willson is admitted to the hospitalist service after undergoing a left basilic vein transposition 03/27/[address] Marie. The patient is sitting up on the side of the bed. Denies pain. He is eating breakfast. No acute medical complaints today. Denies any fevers, chills, weakness, fatigue, Headache, Chest Pain, Shortness of breath, cough, palpitations, abdominal pain, N/V/D or changes in bowel or bladder habits. PE: GEN: 73 yo M, appears stated age. Alert and oriented x 3. Pleasant, interactive. HEENT: Normocephalic, atraumatic. Moist mucous membranes. CHEST: Regular rate and rhythm, +S1, +S2 LUNGS: Clear to auscultation bilaterally. ABD: Round, soft, non-tender, non-distended. EXT: Left upper extremity with bandage present, I am able to feel his thrill through the bandage over the AV fistula. Radial and ulnar pulses are palpable. Normal sensation and strength in the left hand. Normal capillary refill. The fingers are warm to touch. NEURO: Alert and oriented x 3. No focal deficits appreciated. A&P: 1. ESRD/dialysis as per nephrology. The patient is currently dialyzing with right chest PermCath. The patient is going to dialysis this morning. Status post AV fistula and left basilic vein transposition 03/27/19. I have left the surgical bandage in place for now. Thrill is easily palpable through the patient's bandage. Good perfusion of the left hand. Continue to monitor. VS,Fishbone, I+O VS, Fishbone, I+O Laboratory Tests 03/27/19 10:42 03/28/19 05:50 Vital Signs Date Time Temp Pulse Resp B/P (MAP) Pulse Ox O2 Delivery O2 Flow Rate FiO2 03/28/19 08:25 16 03/28/19 06:00 96.0 64 148/68 (94) 99 Room Air 03/27/19 14:30 2 I&O- Last 24 Hours up to 6 AM 03/28/19 06:00 Intake Total 700 ml Output Total 25 ml Balance 675 ml Pushpa Platt Mar 28, 2019 09:05 NADIYA MARIE MD Mar 29, 2019 09:24
[2019-03-28] MEDS: LIDOCAINE 5% (LIDODERM) PATCH TD SCH (09:34)
--- NOTE | 2019-03-28 13:23 | CR ---
DATE OF CONSULTATION: 03/28/2019 REQUESTING PHYSICIAN: Jerrod Jameson MD REASON FOR CONSULTATION: To assist in the management of end-stage renal disease. HISTORY OF PRESENT ILLNESS: Mr. Willson was admitted last evening after his left arm AV fistula surgery for transposition of basilic vein. He is on chronic anticoagulation and was not feeling well after surgery. He lives alone and had no one to monitor him and had risk for bleeding. The patient is due for dialysis today and a nephrology consultation was requested. PAST MEDICAL AND SURGICAL HISTORY: Significant for: 1. Longstanding diabetes. 2. Hypertension. 3. Coronary artery disease status post coronary artery bypass grafting (CABG). 4. History of chronic back pain. 5. History of chronic degenerative arthritis. 6. Anemia of chronic kidney disease. 7. Hyperlipidemia. 8. History of renal cancer, status post (cut off). 9. History of colon polypectomy. 10. History of CABG and coronary stents. 11. History of cataract surgery. ALLERGIES: The patient has allergies to: 1. PENICILLIN. 2. SULFA. 3. AMLODIPINE. 4. CEPHALOSPORINS. 5. AZITHROMYCIN. 6. MINOXIDIL. 7. HYDRALAZINE. 8. TETRACYCLINE. 9. CONTRAST MEDIA. MEDICATIONS: His chronic medications include: - allopurinol 100 mg daily - Xanax 0.5 mg as needed for anxiety - Eliquis 2.5 mg b.i.d. - aspirin 81 mg daily - atorvastatin 40 mg daily - calcitriol 0.25 mcg daily - clonidine patch 0.1 mcg once a week - glipizide 5 mg daily - levothyroxine 88 mcg daily - multivitamin 1 tablet daily - pantoprazole 40 mg daily - MiraLAX 17 grams daily - He also takes torsemide 100 mg b.i.d. PERSONAL AND SOCIAL HISTORY: The patient is and he lives by himself. He does not smoke or drink. FAMILY HISTORY: Noncontributory. REVIEW OF SYSTEMS: Head and neck is negative for any headache or dizziness. He is lying in the bed mostly and did not get up or walk this morning as yet. Ears, nose and throat are unremarkable. Cardiovascular system is significant for history of congestive heart failure and hypertension. He denies any dyspnea or chest pain at present. Respiratory system negative for cough or hemoptysis. Gastrointestinal (GI) system negative for vomiting or diarrhea. Denies any abdominal pain. Genitourinary () system is negative for dysuria or hematuria. He reports frequency this morning. Musculoskeletal system is significant for chronic degenerative arthritis, back pain and gout. Endocrine system is significant for hypothyroidism, secondary hyperparathyroidism and type 2 diabetes. Psychosocial system significant for anxiety. Neurological system is negative for seizures or stroke. Hematological system is significant for chronic anticoagulation with Eliquis. He has anemia of chronic kidney disease. PHYSICAL EXAMINATION: The patient is awake and alert at his baseline mentation. Temperature 96.7 degrees Fahrenheit, heart rate 64 per minute and respiratory rate 16 per minute. Blood pressure 148/68 mmHg and oxygen saturation 99% on room air. Head is atraumatic. Neck is supple and without JVD or thyroid enlargement. Heart sounds are regular and lungs sound clear to auscultation. Abdomen soft and nontender and bowel sounds are normal. Extremities without any cyanosis or clubbing. Left upper arm surgical incision is clean and Steri-Strips are intact. I removed the dressing and AV fistula is patent with good bruit and thrill. Neurologically he is awake, alert and oriented times three. Today's labs show WBC count 4.4, hemoglobin 10.5 and hematocrit 32.7. Platelets 137. Sodium 136, potassium 4.0, chloride 101, CO2 29, BUN 47 and creatinine 4.07. Glucose 121 and calcium 9.5. PROBLEMS: 1. End-stage renal disease. The patient is regularly dialyzed on Wednesday, and Wednesday schedule. He is due for dialysis today and we will plan to dialyze him as he is now admitted as inpatient. 2. Hypertension. Blood pressure seems reasonably well controlled and his chronic antihypertensive medications should be continued. 3. Congestive heart failure. He does have a history of congestive heart failure, which has been reasonably well-controlled with dialysis. No other urgent intervention is indicated. 4. Anemia. His anemia is chronic and stable, at baseline. No urgent intervention will be needed. Thank you for involving me in the care of Mr. Willson. I will follow him along with you.
--- NOTE | 2019-03-28 16:23 | IPNPDOC ---
Subjective Date Seen The patient was seen on 03/28/19. Subjective Chief Complaint/HPI c/o back pain and lack of his home lidoderm patch. I have advised him that I'll order it for him. Objective Physical Examination General Exam: Positive: Alert Eye Exam: Positive: PERRLA, EOMI ENT Exam: Positive: Atraumatic Neck Exam: Positive: Supple Heart Exam: Positive: Rate Normal Telemetry: Positive: No significant arrhythmia Abdomen Exam: Positive: Normal bowel sounds, Soft; Negative: Tenderness Extremity Exam: Positive: Normal pulses, Other (+ thrill, no exsanguination noted through surgical dressings) Neuro Exam: Positive: Normal Speech, Sensation Intact Assessment /Plan Assessment # POD # 1 s/p Left basilic vein transposition - patient will stay 2 midnights, change to inpatient, has not received clearance from vascular to discharge today # CKD stage 5 hemodialysis dependent - HD today per nephro # Hypothyroidism - stable on levothyroxine # HTN - controlled with home meds Plan/VTE VTE Prophylaxis Ordered?: Yes (hep sq) VS, I&O, 24H, Fishbone Vital Signs/I&O Vital Signs Date Time Temp Pulse Resp B/P (MAP) Pulse Ox O2 Delivery O2 Flow Rate FiO2 03/28/19 08:55 17 03/28/19 06:00 96.0 64 148/68 (94) 99 Room Air 03/27/19 14:30 2 I&O- Last 24 Hours up to 6 AM 03/28/19 06:00 Intake Total 700 ml Output Total 25 ml Balance 675 ml Laboratory Data 24H LABS Laboratory Tests 2 03/27/19 17:26: Bedside Glucose (Misc Panel) 150H 03/27/19 20:55: Bedside Glucose (Misc Panel) 212H 03/28/19 05:50: Nucleated Red Blood Cells % (auto) 0.0, Anion Gap 6L, Glomerular Filtration Rate 15.4L, Calcium Level 9.5, Phosphorus Level 3.5, Albumin 3.3 03/28/19 06:13: Bedside Glucose (Misc Panel) 113H 03/28/19 12:06: Bedside Glucose (Misc Panel) 125H CBC/BMP Laboratory Tests 03/28/19 05:50 MILTON PLATA MD Mar 28, 2019 16:23
[2019-03-28 18:00] VITALS: BP 142/62
[2019-03-28] MEDS: ATORVASTATIN 20 MG TAB PO SCH (20:42)
[2019-03-28] MEDS: LATANOPROST 0.005% OPHTH SOLN 2.5 ML OU SCH (20:42)
[2019-03-28] MEDS ORDERED: **NOTE PATIENT COMMENT** MISC XX SCH (21:00)
[2019-03-28 22:00] VITALS: BP 130/85
[2019-03-29] MEDS: PERCOCET 5MG/325MG TAB PO PRN (00:04)
[2019-03-29 02:00] VITALS: BP 125/75
[2019-03-29] MEDS: LEVOTHYROXINE 88MCG TABLET (0.088 MG) PO SCH (05:57)
[2019-03-29 06:00] VITALS: BP 130/80
[2019-03-29 07:07] LABS: HEMATOCRIT 34.1 % (42.0-52.0); HEMOGLOBIN 10.6 g/dl (13.5-17.5); MEAN CORPUSCULAR HEMOGLOBIN 29.3 pg (27.0-33.0); MEAN CORPUSCULAR HGB CONC 31.1 g/dl (32.0-36.5); MEAN CORPUSCULAR VOLUME 94.2 fl (80.0-96.0); PLATELET COUNT, AUTOMATED 135 10^3/uL (150-450); RED BLOOD COUNT 3.62 10^6/uL (4.30-6.10); WHITE BLOOD COUNT 3.9 10^3/uL (4.0-10.0)
[2019-03-29] MEDS: HumaLOG INSULIN (NovoLOG) PER UNIT SC SCH ×2 (07:30→12:00)
[2019-03-29 07:46] LABS: ALBUMIN 3.4 GM/DL (3.2-5.2); CALCIUM LEVEL 9.5 MG/DL (8.8-10.2); CREATININE FOR GFR 3.19 MG/DL (0.70-1.30); GLOMERULAR FILTRATION RATE 20.3 (>42); PHOSPHORUS LEVEL 2.4 MG/DL (2.5-4.9); POTASSIUM SERUM 4.1 MEQ/L (3.5-5.1)
[2019-03-29 08:20] VITALS: BP 145/61
[2019-03-29] MEDS: MIRALAX *UNIT DOSE* 17GM PACKET PO SCH (08:34)
[2019-03-29] MEDS: LIDOCAINE 5% (LIDODERM) PATCH TD SCH (08:35)
[2019-03-29] MEDS: TORSEMIDE (DEMADEX) 50 MG PER 1/2 TAB PO SCH (08:36)
[2019-03-29] MEDS: ASPIRIN 81 MG ENTERIC TAB PO SCH (08:36)
[2019-03-29] MEDS: allopurinoL 100 MG TAB PO SCH (08:37)
[2019-03-29] MEDS: APIXABAN 2.5 MG TAB (ELIQUIS) PO SCH (08:37)
[2019-03-29] MEDS: PANTOPRAZOLE 40MG TAB (PROTONIX) PO SCH (08:37)
[2019-03-29] MEDS: MULTIVITAMINS/MINERALS THERAP 1 TAB PO SCH (08:37)
[2019-03-29] MEDS ORDERED: CALCITRIOL 0.25 MCG CAP (S0169) PO SCH (09:00)
--- NOTE | 2019-03-29 09:54 | IPNPDOC ---
Date Seen The patient was seen on 03/29/19. Progress Note Patient seen and examined this morning. Doing well. He had a little bit oozing from his incision, and the Steri-Strips have a bit of blood on them. I removed the Steri-Strips today and cleaned the incision. No active bleeding is noted. Steri-Strips were replaced. I rewrapped the arm with kerlix only to provide some padding to the patient and make him feel more protected. He is very nervous abo ut the incision. We then placed a netting over the arm as well for protection. I think he is fine to go home today from a vascular standpoint if he is stable from a medical standpoint. We would like to see him back in a week to check his incision. VS, I&O, 24H, Fishbone Vital Signs/I&O Vital Signs Date Time Temp Pulse Resp B/P (MAP) Pulse Ox O2 Delivery O2 Flow Rate FiO2 03/29/19 08:20 97.3 86 17 145/61 (89) 99 Room Air 03/27/19 14:30 2 I&O- Last 24 Hours up to 6 AM 03/29/19 06:00 Intake Total 650 ml Output Total 1500 ml Balance -850 ml Laboratory Data 24H LABS Laboratory Tests 2 03/28/19 12:06: Bedside Glucose (Misc Panel) 125H 03/28/19 17:25: Bedside Glucose (Misc Panel) 103 03/28/19 20:12: Bedside Glucose (Misc Panel) 144H 03/29/19 06:46: Nucleated Red Blood Cells % (auto) 0.0, Anion Gap 7L, Glomerular Filtration Rate 20.3L, Calcium Level 9.5, Phosphorus Level 2.4#L, Albumin 3.4 03/29/19 08:11: Bedside Glucose (Misc Panel) 155H CBC/BMP Laboratory Tests 03/29/19 06:46 NADIYA ROBERTSON MD Mar 29, 2019 09:54
[2019-03-29 10:00] VITALS: BP 156/82
--- NOTE | 2019-03-29 10:34 | IPNPDOC ---
Subjective Date Seen The patient was seen on 03/29/19. Subjective Chief Complaint/HPI Up walking in hallway. Pain controlled. No complaints this am, tells me he has received discharge surgical wound instructions from Dr. Marie. Objective Physical Examination General Exam: Positive: Alert Eye Exam: Positive: PERRLA, EOMI ENT Exam: Positive: Atraumatic Neck Exam: Positive: Supple Heart Exam: Positive: Rate Normal Telemetry: Positive: No significant arrhythmia Abdomen Exam: Positive: Normal bowel sounds, Soft; Negative: Tenderness Extremity Exam: Positive: Normal pulses, Other (+ thrill, no exsanguination noted through surgical dressings) Neuro Exam: Positive: Normal Speech, Sensation Intact Assessment /Plan Assessment # POD # 2 s/p Left basilic vein transposition - patient will stay 2 midnights, change to inpatient, has not received clearance from vascular to discharge today # CKD stage 5 hemodialysis dependent - resume TTS schedule for HD as outpatient # Hypothyroidism - stable on levothyroxine # HTN - controlled with home meds Plan/VTE VTE Prophylaxis Ordered?: Yes (hep sq) VTE Exclusion Mechanical Proph: N/A:VTE Prophy Ordered VTE Exclusion Pharmacological: N/A:VTE Prophy Ordered VS, I&O, 24H, Fishbone Vital Signs/I&O Vital Signs Date Time Temp Pulse Resp B/P (MAP) Pulse Ox O2 Delivery O2 Flow Rate FiO2 03/29/19 10:00 96.9 82 19 156/82 (106) 100 Room Air 03/27/19 14:30 2 I&O- Last 24 Hours up to 6 AM 03/29/19 05:59 Intake Total 650 ml Output Total 1500 ml Balance -850 ml Laboratory Data 24H LABS Laboratory Tests 2 03/28/19 12:06: Bedside Glucose (Misc Panel) 125H 03/28/19 17:25: Bedside Glucose (Misc Panel) 103 03/28/19 20:12: Bedside Glucose (Misc Panel) 144H 03/29/19 06:46: Nucleated Red Blood Cells % (auto) 0.0, Anion Gap 7L, Glomerular Filtration Rate 20.3L, Calcium Level 9.5, Phosphorus Level 2.4#L, Albumin 3.4 03/29/19 08:11: Bedside Glucose (Misc Panel) 155H CBC/BMP Laboratory Tests 03/29/19 06:46 MILTON PLATA MD Mar 29, 2019 10:34
[2019-03-29] MEDS ORDERED: SIMETHICONE 80 MG CHEW TAB PO ONE (13:00)
[2019-04-01] MEDS ORDERED: cloNIDine HCL 0.1 MG/24 HR PATCH TOP SCH (09:00)
== END 2019-03-29 13:45 | disposition home or self-care (01) | DRG 252 ==
LOC: M SDC 10:28 → EDSTATUS 10:45 → M MSPAV 16:05 → M SDC 16:25 → M MSPAV 16:26 → OBSVTOIN 03-28 11:12
PROVIDERS: ADMIT Family Medicine; ATTEND Surgery Vascular Surgery
PROC: 051 Upper Veins, Bypass (ICD-10-PCS; principal; 2019-03-28)
PROC: 5A1D70Z Performance of Urinary Filtration, Intermittent, Less than 6 Hours Per Day (ICD-10-PCS; 2019-03-28)
DX: T82.520A Displacement of surgically created arteriovenous fistula, initial encounter (principal); N18.6 End stage renal disease; I50.32 Chronic diastolic (congestive) heart failure; I13.2 Hypertensive heart and chronic kidney disease with heart failure and with stage 5 chronic kidney disease, or end stage renal disease; N25.81 Secondary hyperparathyroidism of renal origin; M10.9 Gout, unspecified; E78.5 Hyperlipidemia, unspecified; E03.9 Hypothyroidism, unspecified; K59.09 Other constipation; E11.22 Type 2 diabetes mellitus with diabetic chronic kidney disease; Z99.2 Dependence on renal dialysis; I25.10 Atherosclerotic heart disease of native coronary artery without angina pectoris; Y83.1 Surgical operation with implant of artificial internal device as the cause of abnormal reaction of the patient, or of later complication, without mention of misadventure at the time of the procedure; D63.1 Anemia in chronic kidney disease; Z95.5 Presence of coronary angioplasty implant and graft; M53.3 Sacrococcygeal disorders, not elsewhere classified; M19.90 Unspecified osteoarthritis, unspecified site; Z85.528 Personal history of other malignant neoplasm of kidney; Z90.5 Acquired absence of kidney; Z86.010 Personal history of colon polyps; Z98.49 Cataract extraction status, unspecified eye; Z88.0 Allergy status to penicillin; Z88.2 Allergy status to sulfonamides; Z88.1 Allergy status to other antibiotic agents; Z88.8 Allergy status to other drugs, medicaments and biological substances; Z91.041 Radiographic dye allergy status; Z79.82 Long term (current) use of aspirin; Z79.01 Long term (current) use of anticoagulants; Z79.84 Long term (current) use of oral hypoglycemic drugs

== ENCOUNTER → 2019-07-28 | Outpatient (CLI) | payer MEDICARE ==
[~2019-07-28] MED LIST changes: +CYCL-707 PO; -CYCL10TA PO; +ISOVUE-300 61% 50ML VIAL As Ordered ONE; +LIDOCAINE 1% MDV 20ML VIAL As Ordered ONE; -LIDOCAINE 1% MDV 20ML VIAL SQ PRN; -LR 1,000 ML IV ONE; +MIDAZOLAM INJ 2MG/2ML VIAL (J2250 PER 1MG) As Ordered ONE; +THROMBIN SOLN 5,000 UNITS VIAL As Ordered ONE; -VANCOMYCIN HCL 1,000 MG, VIAL MATE ADAPTER 1 EACH in D5W 250 ML IV ONE; +fentaNYL 100 MCG/2 ML INJECTION (J3010) As Ordered ONE
[2019-07-28 15:45] VITALS: BP 191/90
--- NOTE | 2019-07-28 15:50 | ROOPDOC ---
[facility] Report Of Operation Report of Operation DATE OF PROCEDURE: 07/28/19 PREPROCEDURE DIAGNOSES: 1. End-stage renal disease with poorly functioning left upper extremity brachio basilic AV fistula 2. 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 PROCEDURE: 1. Ultrasound-guided access left basilic vein 2. Angioplasty left basilic vein with 7 x 00, 8 x 100, 9 x 80 [place] balloons 3. Thrombin injection left basilic vein pseudoaneurysm under ultrasound guidance 4. Completion venogram SURGEON: Nadiya Marie MD ANESTHESIA: Local anesthesia 3 mL lidocaine. Moderate intravenous conscious sedation was administered by Dr. Marie. The patient was independently monitored by registered nurse assigned to the Department of radiology using automated blood pressure, EKG, and pulse oximetry. The details sedation record is permanently stored in the hospital information system. The following is a brief sedation record: Start time 14:17, stop time 14:53, Versed 0.5 mg IV, fentanyl 25 g IV. CONTRAST: 20 mL Isovue-300 INDICATION FOR PROCEDURE: This is a very pleasant 74-year-old gentleman with end-stage renal disease currently dialyzing with his PermCath after recent infiltration of his right brachial basilic AV fistula. The patient developed a focal pseudoaneurysm at one of the areas of access, that is fairly large and has a rather short wide neck. Also, the patient was having increased pulsatility after the infiltration. Risks benefits and alternatives to a fistulogram and potential intervention, and thrombin injection of the pseudoaneurysm, were explained to the patient and he was agreeable to proceed. Informed consent was obtained. INTERPRETATION: 1. On ultrasound, there was widely patent inflow through the arteriovenous anastomosis with no stenosis noted. 2. Ultrasound exam also revealed a large pseudoaneurysm with a fairly short wide neck with active flow and no mural thrombus within the pseudoaneurysm. 3. Fistulogram confirmed only mild stenosis in the basilic vein in the area of transposition, but a focal 90% stenosis where the basilic vein traversed into its natural anatomic position, but widely patent inflow through the axillary vein and subclavian vein into the central system. 4. After angioplasty of the focal stenosis in the basilic vein with a 7 x 100 [place]ena balloon, there was only a mild improvement in stenosis. After repeat angioplasty with an 8 x 100 balloon and a 9 x 80 Adena balloon, there was widely patent inflow into the central system with no significant residual stenosis. 5. With balloon occlusion of the fistula, we were able to safely inject thrombin into the pseudoaneurysm with complete occlusion and thrombosis of the pseudoaneurysm while preventing thrombosis of the fistula. REPORT OF OPERATION: The patient was brought to the angiographic suite in stable condition. His left upper extremity was prepped and draped in sterile fashion. A timeout was performed. Local anesthesia was instructed skin and subcutaneous tissue over the basilic vein near the AV anastomosis. Ultrasound was used to examine the AV anastomosis and it was found to be widely patent. We also did an ultrasound exam of the pseudoaneurysm and images were saved. A microneedle was used to access the basilic vein under ultrasound guidance. A wire was passed through this access and the needle was removed. A 4 [place] sheath was placed and flushed with saline. A fistulogram and central venogram were performed. Please see interpretation above. Glidewire was passed through this access into the central system under fluoroscopic guidance. The sheath was removed and exchanged for 6 [place] sheath which was flushed with saline. We then advanced a 7 x 100 Adena balloon across the basilic vein and to three-minute angioplasties were performed. The first across the main basilic vein over the bicep and the second across the end of the transposition where returns to its normal anatomic position towards the axillary vein. Following this, there was improvement in flow, but there is still significant flow-limiting stenosis near the axillary vein. We then exchange the balloon over the wire for an 8 x 100 Adena balloon and a second three-minute inflation was performed distally as well as proximal to the AV anastomosis. While the balloon was inflated across the main basilic vein, we confirmed with ultrasound that there was no active flow into the fistul a, ensuring that the balloon would keep thrombin injected into the pseudoaneurysm from accessing into the fistula itself. We then utilized ultrasound to guide a thrombin injection into the pseudoaneurysm and 1500 units of thrombin was injected. We left the balloon inflated another minute, and then confirmed that there was flow through the fistula with no thrombus in the fistula. There was complete occlusion of the pseudoaneurysm on ultrasound and on fistulogram. This fistulogram also confirmed there was still a small amount of residual stenosis in the proximal basilic vein near the axillary vein. We then exchange the balloon over the wire for a 9 x 80 Adena balloon and a three- minute inflation was performed. Following this, there was widely patent inflow t hrough the basilic vein into the central system with no extravasation, no embolization, no significant residual stenosis. There was an excellent thrill and the fistula in all pulsatility was gone. There was no longer flow into the pseudoaneurysm. Local anesthesia was administered around the sheath and a [id number] Prolene suture was placed and secured at the sheath was removed. Pressure was held for 5 minutes for good hemostasis. Sterile dressings were applied and the patient was taken to recovery in stable condition. He tolerated the sedation in the procedure well. ESTIMATED BLOOD LOSS: Approximately 2 mL. COMPLICATIONS: None. PLAN: Okay to resume home diet medications. I would await until pseudoaneurysm is somewhat resorbed before utilizing fistula. It may be okay to do one needle in the fistula and one access in the PermCath, but it may be difficult to do both needles in the fistula until the pseudoaneurysm has somewhat resolved. We appreciate the opportunity to participate in the care of this patient. NADIYA MARIE MD July 28, 2019 15:50
== END ==
LOC: M IRPRO 12:00
PROVIDERS: ATTEND Surgery Vascular Surgery
DX: T82.590A Other mechanical complication of surgically created arteriovenous fistula, initial encounter (principal); N18.6 End stage renal disease; X58.XXXA Exposure to other specified factors, initial encounter

== ENCOUNTER → 2019-09-29 | Outpatient (CLI) | payer MEDICARE ==
[~2019-09-29] MED LIST changes: -LACT10SO29 PO; +LACT20EL PO; -THROMBIN SOLN 5,000 UNITS VIAL As Ordered ONE; +hydrALAZINE 20MG/ML 1ML VIAL (J0360 PER 20MG) As Ordered ONE
[2019-09-29 14:30] VITALS: BP 176/79
--- NOTE | 2019-09-29 16:15 | ROOPDOC ---
[facility] Report Of Operation Report of Operation DATE OF PROCEDURE: 09/29/19 PREPROCEDURE DIAGNOSES: End-stage renal disease with increased pulsatility left brachiobasilic AV fistula POSTPROCEDURE DIAGNOSES: Same PROCEDURE: 1. Ultrasound-guided access left cephalic vein 2. Left upper extremity fistulogram and central venogram 3. Angioplasty left basilic vein with 7 x 20 cutting balloon, 8 x 100 [place] balloon, 9 x 80 [place] balloon 4. Completion venograms SURGEON: Nadiya Marie MD ANESTHESIA: Local anesthesia 1 mL lidocaine. Moderate intravenous conscious sedation with administered by Dr. Marie. The patient was independently monitored by registered nurse and signed to the Department of radiology using automated blood pressure, EKG, and pulse oximetry. The details sedation record is permanently stored in the hospital information system. The following is a brief sedation record: Start time 13:32 stop time 14:04, Versed 1 mg IV, fentanyl 50 g IV. CONTRAST: 20 mL Isovue-300 INDICATION FOR PROCEDURE: This is a very pleasant 73-year-old gentleman with end-stage renal disease currently dialyzing with a PermCath due to recent infiltration of his left brachiobasilic AV fistula with subsequent pseudoaneurysm formation. He underwent thrombin injection of the pseudoaneurysm which is now almost resolved. We saw him in clinic for follow-up, and I noted his fistula to be quite pulsatile. I discussed with him the risks benefits and alternatives to a fistulogram and potential intervention to improve his venous outflow and decreased pulsatility prior to the nurses trying to use his fistula again for dialysis. I definitely think this will help with access as well as decreased the chance of his having another bleed or infiltration. After extensive discussion the patient was agreeable to proceed. Informed consent was obtained. INTERPRETATION: 1. Ultrasound was used to examine the AV anastomosis and it was noted to be widely patent. 2. Fistulogram reveals that the basilic vein is initially patent near the AV anastomosis and then narrows focally with about 80% stenosis for about 3 cm, then is widely patent through the rest of the basilic vein into the central system. No stenosis noted in the central veins. 3. After angioplasty the basilic vein with a cutting balloon and a [place] balloon, there is widely patent flow with less than 20% residual stenosis. There was an excellent thrill and the fistula. No extravasation was noted. REPORT OF OPERATION: The patient was brought to the angiographic suite in stable condition. His left upper extremity was prepped and draped in a sterile fashion. A timeout was performed. Local anesthesia was administered to the skin and subcutaneous tissue over the left basilic vein near the AV anastomosis. Ultrasou nd was used to examine the AV anastomosis and it was noted to be widely patent. A microneedle was used to access the vein under ultrasound guidance. A wire was passed through this access and the needle was removed. A 4 [place] sheath was placed and flushed with saline. Sedation was administered without complication. A fistulogram and central venogram were performed. Please see interpretation above. A Glidewire was advanced into the central system. We exchanged sheath for 7 [place] sheath and flushed sheath with saline. We then advanced a Glidewire advantage 018 wire into the central system. A 7 x 20 cutting balloon was used to angioplasty the basilic vein, which offered some improvement in no extravasation, but still some residual stenosis. We utilized a cutting balloon a few more times, but still residual stenosis persisted. We then exchanged the balloon for an 8 x 100 cutting balloon three-minute inflations was performed. Following this, there was improvement but still some residual stenosis. We therefore exchanged the balloon for 9 x 80 [place] balloon and a three-minute inflations was performed. Following this, there was a little irregularity in the vein, and a second three-minute inflations was performed. Afterwards, there was widely patent inflow through the basilic vein with no significant residual stenosis and no extravasation noted. This concluded the procedure. Local anesthesia was administered around the sheath and a Prolene suture was placed in a [id number] pattern around the exit site sheath was removed. The suture was secured with Steri-Strips and dressings were applied. Good hemostasis was noted. The patient was then taken to recovery in stable condition. We will remove the suture prior to discharge. He tolerated the procedure and the sedation well. ESTIMATED BLOOD LOSS: Approximately 3 mL. COMPLICATIONS: None PLAN: The patient may resume his home diet medications. Okay to use AV fistula for dialysis. If the fistula is successfully for dialysis access, we will be happy to remove the patient's PermCath. We appreciate the opportunity to participate in the care of this patient. NADIYA MARIE MD Sep 29, 2019 16:15
== END ==
LOC: M IRPRO 11:39
PROVIDERS: ATTEND Surgery Vascular Surgery
DX: T82.590A Other mechanical complication of surgically created arteriovenous fistula, initial encounter (principal); N18.6 End stage renal disease; X58.XXXA Exposure to other specified factors, initial encounter

== ENCOUNTER → 2019-10-13 | Outpatient (CLI) | payer MEDICARE ==
[~2019-10-13] MED LIST changes: -ISOVUE-300 61% 50ML VIAL As Ordered ONE; -LIDOCAINE 1% MDV 20ML VIAL As Ordered ONE; -MIDAZOLAM INJ 2MG/2ML VIAL (J2250 PER 1MG) As Ordered ONE; +PANT40TA29 PO; -PANT40TA3 PO; +READI-CAT 2 As Ordered ONE; -fentaNYL 100 MCG/2 ML INJECTION (J3010) As Ordered ONE; -hydrALAZINE 20MG/ML 1ML VIAL (J0360 PER 20MG) As Ordered ONE
--- NOTE | 2019-12-04 08:00 | REP ---
CT OF THE CHEST WITHOUT INTRAVENOUS (IV) OR BOWEL CONTRAST COMPARISON: 04/27/2014. HISTORY: Abnormal progressive weight loss and history of left nephrectomy for renal cell carcinoma. Additionally, the patient has chronic diastolic heart failure, renal dialysis. FINDINGS: There are moderate-large bilateral pleural effusions as an interval change. There are no infiltrates. There are no lung masses or nodules. Cardiac size is enlarged. This is unchanged. There is no pericardial effusion. There is vascular atheroma in the coronary arteries. There is no mediastinal or axillary lymph node enlargement. In the absence of IV contrast, this study is insensitive for hilar lymph node enlargement. There are sternotomy wires. This is unchanged. There is a right IJ central venous catheter with the tip at the confluence of the superior vena cava and right atrium. There are no lytic, blastic, or destructive skeletal changes. In the upper abdomen, there is a right adrenal nodule containing calcifications measuring 3.1 cm. On the comparison study, this measured 3.6 cm. There are surgical clips in the gallbladder fossa. This is unchanged. There are surgical clips in the left renal fossa compatible with the clinical history of left nephrectomy. IMPRESSION: Moderate/large bilateral pleural effusions as an interval change. No lung nodules or masses. No infiltrates. No lymph node enlargement. No lytic, blastic, or destructive skeletal lesions. Chronic cardiomegaly. Atheromatous calcification in the coronary arteries. Right IJ central venous catheter as described. Delay in reporting results from hospital computer system due to malfunction from a malware attack. [facility]
--- NOTE | 2019-12-04 08:01 | REP ---
CT OF THE ABDOMEN AND PELVIS WITHOUT IV OR BOWEL CONTRAST: COMPARISON: 06/14/17 HISTORY: History of progressive abnormal weight loss. Left nephrectomy for renal cell carcinoma, diastolic heart failure. FINDINGS: There are moderate/large bilateral pleural effusions as an interval change. There is stable cardiomegaly, unchanged. The visualized lower lung davis are otherwise unremarkable. The hepatic parenchyma is homogeneous. There are surgical clips in the gallbladder fossa. This is unchanged. The pancreas and spleen are normal size and unremarkable. There is a right adrenal mass containing calcifications measuring 3.5 cm. Previously, this measured 3.7 cm. The left adrenal is not identified and may have been removed with the left kidney. There is diffuse renal cortical atrophy of the right kidney. There is a 12 mm exophytic nodule arising anteriorly from the right kidney. This measured 1.2 cm previously. There is a 3.5 cm Bosniak type 1 cyst in the right renal lower pole. This measured 2.8 cm previously. There is an 11 mm exophytic cyst laterally at the mid-pole of the right kidney. This measured 10 mm previously. There is no right hydronephrosis. No right renal calculi. No perinephric stranding. The abdominal aorta is unremarkable except for occasional calcified atheroma. There is no periaortic adenopathy or mass. There is no mesenteric adenopathy or ascites. There is no bowel distention or obstruction. PELVIS: The focal diverticulitis noted in the descending colon previously has resolved. The pelvic bowel loops are otherwise unremarkable. There is no pelvic ascites. No pelvic adenopathy. There are no lytic, blastic or destructive skeletal changes. 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 IMPRESSION: Bilateral moderate/large pleural effusions as an interval change. Cholecystectomy, unchanged. Left nephrectomy, unchanged and there is no evidence of tumor recurrence in the left renal fossa. Diffuse cortical thinning of the right kidney. There are right renal cysts as described and a right renal exophytic nodule, as described, not significantly changed. No retroperitoneal or mesenteric adenopathy. No ascites. The previous diverticulitis of the descending colon has resolved. There are no lytic, blastic or destructive skeletal lesions. MTDD
== END ==
LOC: M RAD 14:30
PROVIDERS: ATTEND Internal Medicine Nephrology
DX: J90 Pleural effusion, not elsewhere classified (principal); N28.1 Cyst of kidney, acquired; R63.4 Abnormal weight loss; I50.32 Chronic diastolic (congestive) heart failure; Z85.528 Personal history of other malignant neoplasm of kidney; Z99.2 Dependence on renal dialysis

== ENCOUNTER → 2019-10-19 | Emergency (ER) | payer MEDICARE ==
[~2019-10-19] MED LIST changes: +MORPHINE 2 MG/ML 1ML VIAL (J2270) As Ordered ONE; +MORPHINE 4 MG/ML 1ML VIAL/SYRINGE (J2270) As Ordered ONE; +ONDANSETRON 4MG/2ML VIAL As Ordered ONE; -READI-CAT 2 As Ordered ONE; +VANCOMYCIN 1000MG/20ML VIAL As Ordered ONE
[2019-11-16 12:40] LABS: INR 1.39; PROTHROMBIN TIME 17.4 SECONDS (11.8-14.0)
[2019-11-16 13:44] LABS: BASO % 0.5 % (0.0-1.0); EOS # 0.1 10^3/uL (0.0-0.5); EOS % 2.2 % (0.0-3.0); HEMATOCRIT 31.7 % (42.0-52.0); HEMOGLOBIN 10.4 g/dl (13.5-17.5); LYMPH # 0.5 10^3/uL (1.5-5.0); LYMPH % 11.7 % (24.0-44.0); MEAN CORPUSCULAR HGB CONC 32.8 g/dl (32.0-36.5); MEAN CORPUSCULAR VOLUME 94.3 fl (80.0-96.0); MONO # 0.3 10^3/uL (0.0-0.8); MONO % 7.2 % (0.0-5.0); NEUTROPHILS # 3.3 10^3/uL (1.5-8.5); NEUTROPHILS % 78.2 % (36.0-66.0); PLATELET COUNT, AUTOMATED 118 10^3/uL (150-450); RED BLOOD COUNT 3.36 10^6/uL (4.30-6.10); WHITE BLOOD COUNT 4.2 10^3/uL (4.0-10.0)
--- NOTE | 2019-12-01 08:07 | ECGEPIP ---
ATRIAL FIBRILLATION WITH ABERRANT CONDUCTION OR VENTRICULAR PREMATURE COMPLEXES NONSPECIFIC ST & T-WAVE ABNORMALITY ABNORMAL RHYTHM ECG NO PREVIOUS SEE SCANNED DOWNTIME REPORT MTDD
[2019-12-03 17:40] LABS: ALBUMIN 3.5 GM/DL (3.2-5.2); BILIRUBIN,TOTAL 0.6 MG/DL (0.2-1.0); CALCIUM LEVEL 9.1 MG/DL (8.8-10.2); CREATININE FOR GFR 3.54 MG/DL (0.70-1.30); POTASSIUM SERUM 3.6 MEQ/L (3.5-5.1); TOTAL PROTEIN 6.5 GM/DL (6.4-8.2)
== END | disposition short-term general hospital (02) ==
LOC: M ED 08:43
DX: T82.590A Other mechanical complication of surgically created arteriovenous fistula, initial encounter (principal); X58.XXXA Exposure to other specified factors, initial encounter; Y92.89 Other specified places as the place of occurrence of the external cause; N18.6 End stage renal disease; I25.10 Atherosclerotic heart disease of native coronary artery without angina pectoris; I48.91 Unspecified atrial fibrillation; Z99.2 Dependence on renal dialysis; Z95.5 Presence of coronary angioplasty implant and graft; Z79.899 Other long term (current) drug therapy; Z79.82 Long term (current) use of aspirin; Z79.01 Long term (current) use of anticoagulants; Z88.0 Allergy status to penicillin; Z88.1 Allergy status to other antibiotic agents; Z88.2 Allergy status to sulfonamides; Z91.041 Radiographic dye allergy status
CPT/HCPCS: 80053; 85025; 85610; 87040; 93005; 96374; 96375; 96376; 99284; J2270; J2405; J3370

== ENCOUNTER 2019-11-03 18:42 | Emergency (ER) | payer MEDICARE ==
[~2019-11-03] VITALS: Ht 185.4 cm; Wt 74.1 kg
[~2019-11-03 18:42] MED LIST changes: -MORPHINE 2 MG/ML 1ML VIAL (J2270) As Ordered ONE; -MORPHINE 4 MG/ML 1ML VIAL/SYRINGE (J2270) As Ordered ONE; -ONDANSETRON 4MG/2ML VIAL As Ordered ONE; -VANCOMYCIN 1000MG/20ML VIAL As Ordered ONE
--- NOTE | 2019-11-03 19:13 | REPVR ---
PROCEDURE INFORMATION: Exam: CT Cervical Spine Without Contrast Exam date and time: 11/03/2019 6:56 PM Age: 74 years old Clinical indication: Injury or trauma; Fall; Initial encounter; Blunt trauma TECHNIQUE: Imaging protocol: Computed tomography images of the cervical spine without contrast. Radiation optimization: All CT scans at this facility use at least one of these dose optimization techniques: automated exposure control; mA and/or kV adjustment per patient size (includes targeted exams where dose is matched to clinical indication); or iterative reconstruction. COMPARISON: No relevant prior studies available. FINDINGS: Tubes, catheters and devices: Right-sided central line is incompletely visualized. Vertebrae: Mild dextroconvex curvature. Non-specific straightening. Vertebral body height and AP alignment is preserved. Moderate degenerative change about the dens. Moderate to severe prevertebral osteophytosis. There are bilateral facet joint degenerative changes. No acute cervical spine fracture. Discs/Spinal canal/Neural foramina: No definite significant central canal stenosis within limitations of technique. Soft tissues: Unremarkable. Thyroid: Enlarged thyroid gland. Lungs: Lung apices are normal. Pleural space: No visible pneumothorax. Vasculature: Vascular calcification. IMPRESSION: No acute cervical spine fracture. Electronically signed by: José Brooks On 11/03/2019 19:13:26 PM
--- NOTE | 2019-11-03 19:14 | REPVR ---
PROCEDURE INFORMATION: Exam: CT Head Without Contrast Exam date and time: 11/03/2019 6:56 PM Age: 74 years old Clinical indication: Injury or trauma; Fall; Initial encounter; Blunt trauma (contusions or hematomas); Without loss of consciousness TECHNIQUE: Imaging protocol: Computed tomography of the head without contrast. Radiation optimization: All CT scans at this facility use at least one of these dose optimization techniques: automated exposure control; mA and/or kV adjustment per patient size (includes targeted exams where dose is matched to clinical indication); or iterative reconstruction. COMPARISON: CT Head without contrast 07/20/2018 3:54 AM FINDINGS: Brain: Decreased attenuation of the supratentorial white matter is likely secondary to chronic microvascular ischemia. No acute intracranial hemorrhage. Chronic lacunar infarct involving the right thalamus. Ventricles: Ventricular and subarachnoid spaces are age appropriate. Bones/joints: Unremarkable. No acute fracture. Sinuses: Visualized sinuses are unremarkable. No fluid levels. Mastoid air cells: Visualized mastoid air cells are well aerated. Vasculature: Intracranial vascular calcification. Soft tissues: Left supraorbital/frontal scalp soft tissue swelling. IMPRESSION: No acute intracranial abnormality. Electronically signed by: José Brooks On 11/03/2019 19:15:14 PM
[2019-11-03] MEDS ORDERED: ONDANSETRON 4 MG ORAL DISINTEGRATING TAB PO ONE (19:45)
[2019-11-03] MEDS ORDERED: ACETAMINOPHEN TAB 650MG DOSE (2X325MG) PO ONE (19:45)
--- NOTE | 2019-11-03 20:15 | REPVR ---
PROCEDURE INFORMATION: Exam: XR Left Knee Exam date and time: 11/03/2019 8:05 PM Age: 74 years old Clinical indication: Pain and injury or trauma; Fall; Initial encounter; Sprain or strain; Patella or knee; Left TECHNIQUE: Imaging protocol: XR Left knee. Views: 4 or more views. COMPARISON: No relevant prior studies available. FINDINGS: Bones/joints: There is chondrocalcinosis. Heqn-ib-[id number] degenerative change. No acute fracture or dislocation. No osseous destruction. Soft tissues: There are medial soft tissue metallic clips. IMPRESSION: No acute osseous abnormality. Electronically signed by: José Brooks On 11/03/2019 20:15:31 PM
[2019-11-03] MEDS ORDERED: BOOSTRIX/ADACEL VACCINE (DIPHTH/PERTUSS/ACELL/TETANUS) 0.5ML SYR IM ONE (21:30)
--- NOTE | 2019-11-03 21:31 | REPVR ---
PROCEDURE INFORMATION: Exam: XR Left Wrist Exam date and time: 11/03/2019 9:18 PM Age: 74 years old Clinical indication: Injury or trauma; Fall; Initial encounter; Abrasion; Wrist; Left TECHNIQUE: Imaging protocol: XR Left wrist. Views: 3 or more views. COMPARISON: No relevant prior studies available. FINDINGS: Bones/joints: Mild chondrocalcinosis. Mild degenerative change. Chronic fracture involving the ulnar styloid. No acute fracture or dislocation. There are several small chronic appearing osseous densities projecting along the posterior wrist on lateral view. Soft tissues: Normal. IMPRESSION: No acute osseous abnormality. Electronically signed by: José Brooks On 11/03/2019 21:31:18 PM
[2019-11-03 21:59] VITALS: BP 141/92
== END 2019-11-03 22:07 | disposition home or self-care (01) ==
LOC: M ED 18:42 → EDBD 18:42 → M ED 22:07
DX: S00.81XA Abrasion of other part of head, initial encounter (principal); S80.02XA Contusion of left knee, initial encounter; S63.502A Unspecified sprain of left wrist, initial encounter; W01.0XXA Fall on same level from slipping, tripping and stumbling without subsequent striking against object, initial encounter; Y92.410 Unspecified street and highway as the place of occurrence of the external cause; E11.9 Type 2 diabetes mellitus without complications; N18.4 Chronic kidney disease, stage 4 (severe); E03.9 Hypothyroidism, unspecified; F33.9 Major depressive disorder, recurrent, unspecified; F41.9 Anxiety disorder, unspecified; G62.9 Polyneuropathy, unspecified; I48.91 Unspecified atrial fibrillation; M81.0 Age-related osteoporosis without current pathological fracture; Z99.2 Dependence on renal dialysis; Z79.899 Other long term (current) drug therapy; Z79.890 Hormone replacement therapy; Z79.82 Long term (current) use of aspirin; Z79.01 Long term (current) use of anticoagulants; Z88.0 Allergy status to penicillin; Z88.1 Allergy status to other antibiotic agents; Z88.2 Allergy status to sulfonamides; Z88.8 Allergy status to other drugs, medicaments and biological substances; Z91.041 Radiographic dye allergy status
CPT/HCPCS: 70450; 72125; 73110; 73564; 90471; 90715; 99284; Q0162

== ENCOUNTER → 2020-01-19 | Outpatient (CLI) | payer MEDICARE ==
[~2020-01-19] MED LIST changes: +ISOVUE-300 61% 50ML VIAL As Ordered ONE; +LIDOCAINE 1% MDV 20ML VIAL As Ordered ONE; +MIDAZOLAM INJ 2MG/2ML VIAL (J2250 PER 1MG) As Ordered ONE; +diphenhydrAMINE 50MG/ML VIAL (J1200) As Ordered ONE; +fentaNYL 100 MCG/2 ML INJECTION (J3010) As Ordered ONE; +hydrALAZINE 20MG/ML 1ML VIAL (J0360 PER 20MG) As Ordered ONE
--- NOTE | 2020-01-19 14:13 | ROOPDOC ---
[facility] Report Of Operation Report of Operation DATE OF PROCEDURE: 01/19/20 PREPROCEDURE DIAGNOSES: End-stage renal disease with increased pulsatility, difficult cannulation left brachiobasilic AV fistula POSTPROCEDURE DIAGNOSES: Same PROCEDURE: 1. Ultrasound-guided access left basilic vein 2. Left upper extremity fistulogram and central venogram 3. Angioplasty left basilic vein was 7 x 20 cutting balloon and 8 x 100 [place] balloon 4. Completion venograms SURGEON: Nadiya Marie MD ANESTHESIA: Local anesthesia 3 mL lidocaine. Moderate intravenous conscious sedation was administered by Dr. Marie. The patient was independently monitored by registered nurse assigned to the Department of radiology using automated blood pressure, EKG, and pulse oximetry. The detailed sedation record is permanently stored in the hospital information system. The following is a brief sedation record: Start time 13:19, stop time 14:43, fentanyl 25 g IV, Versed 0.5 mg IV, Benadryl 50 mg IV, hydralazine 10 mg IV. The patient has a reported IV dye allergy, and we have repeatedly ordered pretreatment with steroids and Benadryl, but the patient does not wish to take it because he says it "makes me feel weird," and therefore last time he had a fistulogram and today the patient only had 50 mg of Benadryl before the procedure. Both last visit and today the patient did not complain of any allergy symptoms with the procedure. INDICATION FOR PROCEDURE: This is a very pleasant 74-year-old patient with end- stage renal disease who has a challenging left brachiobasilic AV fistula. The patient's vein is not arterializing well, and has significant spasm, diminished size in each area where his access. 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 Overall, we have been very unsuccessful with cannulation of his fistula. He also has increase pulsatility due to proximal and mid vein stenoses. I told him we would try one more time angioplasty to see if we could improve flow through the fistula and not for cannulation. However, if we are not successful, I think the best option is to discuss an open revision with him where we do a jump graft from the AV anastomosis to the basilic vein in the upper arm. For today, we will try another fistulogram and further recommendations to follow depending on how he does. Risks benefits and alternatives were explained and informed consent was obtained. INTERPRETATION: 1. Ultrasound confirmed at the AV anastomosis is widely patent with rapid flow into the fistula. 2. Fistulogram of left upper extremity shows at the basilic vein has multiple areas of stenoses throughout the upper arm in the area of transposition, as well as where the vein returns to its normal lie in the upper arm. Proximal to this however there is rapid flow through the central veins. No stenoses in the axillary vein subclavian vein or innominate vein were noted. 3. After angioplasty of the basilic vein with a 7 x 20 cutting balloon, there is still significant residual stenoses overall, but a much improved thrill in the fistula. After repeat angioplasty with an 8 x 100 [place] balloon, there is widely patent inflow through the fistula with less than 30% residual stenosis in the proximal basilic vein only, and good flow back to the central system. No extravasation noted. There was an excellent thrill and the fistula. REPORT OF OPERATION: The patient was brought to the angiographic suite in stable condition. His left upper extremity was prepped and draped in a sterile fashion. A timeout was performed. Local anesthesia was a worsted winder to the skin and subcutaneous tissue over the basilic vein near the AV anastomosis. Ultrasound was used to examine the AV anastomosis and it was noted to be widely patent. We then used ultrasound to gain access to the basilic vein near the AV anastomosis with a microneedle. A wire was passed through this access needle was removed and a 4 Kinyarwanda glide sheath was placed and flushed with saline. After this, a fistulogram and central venogram were performed. Please see interpretation above . Glidewire was advanced into the central system under fluoroscopic guidance and the sheath was exchanged for some Kinyarwanda sheath which was flushed with saline. An O18 wire was then advanced into the central system and a 7 x 20 cutting balloon was used to angioplasty along the length basilic vein in areas of heavy stenosis. Following this, there is widely patent flow with some residual stenosis at the areas that were heavily stenotic pre-angioplasty, but no sterilization was noted. We then exchange this balloon 4 and 8 x 100 [place] balloon and three-minute inflations along the length of the basilic vein were performed. Following this there was still some residual stenosis at the proximal basilic vein were returns to its normal lie in the upper arm, but this did not appear flow-limiting and the patient had an excellent thrill and the fistula. This concluded the procedure. Local anesthesia was administered around the exit site of the sheath and [id number] Prolene suture was placed and secured as the sheath was removed. Pressure was held for 5 minutes for good hemostasis and sterile dressings were applied. The patient was taken to recovery in stable condition. He tolerated the procedure well. ESTIMATED BLOOD LOSS: Approximately 5 mL. COMPLICATIONS: none. PLAN: At this point I do not with the patient to use the AV fistula for dialysis. He should only uses PermCath. We like the fistula to rest for 2 weeks. After 2 weeks, I will examine the fistula in clinic with ultrasound. At that point, I will determine if the fistula can be marked to attempt cannulation again, or if we need to discuss the option for an open revision with a jump graft from the AV anastomosis to the basilic vein in the upper arm. I am just not sure that his vein is strong enough to be used for dialysis. We will decide at his next appointment depending on findings with ultrasound. The patient and I had a long discussion about this today and he is agreeable. We appreciate the opportunity to participate in the care of this patient. NADIYA MARIE MD Jan 19, 2020 14:13
[2020-01-19 15:55] VITALS: BP 160/85
== END ==
LOC: M IRPRO 11:42
PROVIDERS: ATTEND Surgery Vascular Surgery
DX: T82.590A Other mechanical complication of surgically created arteriovenous fistula, initial encounter (principal); N18.6 End stage renal disease; I12.0 Hypertensive chronic kidney disease with stage 5 chronic kidney disease or end stage renal disease; I48.91 Unspecified atrial fibrillation; E11.22 Type 2 diabetes mellitus with diabetic chronic kidney disease; E03.9 Hypothyroidism, unspecified; X58.XXXA Exposure to other specified factors, initial encounter; Z79.82 Long term (current) use of aspirin; Z79.899 Other long term (current) drug therapy; Z85.528 Personal history of other malignant neoplasm of kidney; Z88.0 Allergy status to penicillin; Z88.1 Allergy status to other antibiotic agents; Z88.2 Allergy status to sulfonamides; Z91.041 Radiographic dye allergy status; Z99.2 Dependence on renal dialysis
CPT/HCPCS: 36902; 99152; 99153; C1725; C1729; C1769; C1894; J0360; J1200; J1644; J2250; J3010; Q9967

== ENCOUNTER → 2020-02-14 | Outpatient (CLI) | payer MEDICARE ==
[~2020-02-14] MED LIST changes: -ISOVUE-300 61% 50ML VIAL As Ordered ONE; -LIDOCAINE 1% MDV 20ML VIAL As Ordered ONE; -MIDAZOLAM INJ 2MG/2ML VIAL (J2250 PER 1MG) As Ordered ONE; -diphenhydrAMINE 50MG/ML VIAL (J1200) As Ordered ONE; -fentaNYL 100 MCG/2 ML INJECTION (J3010) As Ordered ONE; -hydrALAZINE 20MG/ML 1ML VIAL (J0360 PER 20MG) As Ordered ONE
--- NOTE | 2020-02-15 03:53 | REP ---
INDICATION: ATHEROSCLEROSIS W/ CLAUDICATION COMPARISON: None. TECHNIQUE: Real time paz scale and color Doppler evaluation of the bilateral lower extremity arterial vasculature using linear high frequency transducer. FINDINGS: Right lower extremity demonstrates moderate significant partially calcified atheromatous plaquing with primarily biphasic wave patterns as well as focal bidirectional flow in the posterior tibial artery which is of uncertain significance but may represent nonvisualized area of narrowing/occlusion and turbulent flow. No focal area of stenosis is identified during the examination. Left lower extremity demonstrates moderate to significant partially calcified atheromatous plaquing with biphasic wave patterns. Evaluation of is somewhat limited due to cellulitis involving the distal aspect of the left lower extremity. Peak systolic velocities (cm/sec) Common femoral artery: Right 83; Left 96 Profunda femoris: Right 60; Left 58 SFA (proximal): Right 115; Left 65 SFA (mid): Right 67; Left 98 SFA (distal): Right 76; Left 73 Popliteal artery: Right 80; Left 86 YAMEL (prox.): Right 75; Left 90 Tibioperoneal trunk: Right 63; Left 102 CASHIER SELF SERVICE GASOLINE (prox.): Right incompletely evaluated; Left 62 CASHIER SELF SERVICE GASOLINE (distal): Right 33; Left 62 YAMEL (distal): Right 86; Left 72 IMPRESSION: 1. Significant partially calcified bilateral atheromatous plaquing with primarily biphasic wave patterns and no visible area of stenosis or occlusion. 2. Irregular bidirectional flow in the right posterior tibial artery may represent nonvisualized area of stenosis and associated turbulent flow. <Electronically signed by Alex Parisi > 02/15/20 [id number]
== END ==
LOC: M RAD 13:00
PROVIDERS: ATTEND Physician Assistant
DX: I70.213 Atherosclerosis of native arteries of extremities with intermittent claudication, bilateral legs (principal); I87.2 Venous insufficiency (chronic) (peripheral); L03.116 Cellulitis of left lower limb

== ENCOUNTER → 2020-04-24 | Outpatient (CLI) | payer MEDICARE ==
[~2020-04-24] MED LIST changes: -CLIN150C14 PO; +CLIN150C15 PO; +GABA-1171 PO; +HYDR-3490 PO; -HYDR25TAB PO; +VALS1TAB67 PO
--- NOTE | 2020-04-24 17:58 | REP ---
INDICATION: VENOUS INSUFFIENCY COMPARISON: None. TECHNIQUE: Latham scale and color Doppler evaluation using linear high frequency transducer including reflux evaluation.. FINDINGS: Ultrasound examination of the bilateral lower extremity deep venous structures from the common femoral vein to the popliteal vein demonstrates normal compressibility flow and wave patterns in response to respiration and augmentation. There is no evidence for deep venous thrombosis. Right lower extremity demonstrates reflux in the mid to distal greater saphenous vein with bed tipped and standing. Mid saphenous vein measures 1.9 mm diameter with reflux duration 2.6 seconds; distal greater saphenous vein measures 1.7 mm diameter with reflux duration 3.3 seconds. Left lower extremity demonstrates reflux in the lesser saphenous vein on standing only and measures 2.4 mm diameter with reflux duration 2.3 seconds. IMPRESSION: No evidence for deep venous thrombosis. Minimal reflux as described above. <Electronically signed by Alex Parisi > 04/24/20 [id number]
== END ==
LOC: M RAD 13:05
PROVIDERS: ATTEND Surgery Vascular Surgery
DX: I87.2 Venous insufficiency (chronic) (peripheral) (principal)

== ENCOUNTER 2020-05-10 03:54 | Inpatient (IN) | payer MEDICARE ==
[~2020-05-10] VITALS: Ht 188 cm; Wt 70.9 kg
[2020-05-10] VITALS (8 sets, daily range): BP systolic 146–215; BP diastolic 67–102; PULSE 62–75
[2020-05-10 04:30] LABS: BASO % 0.4 % (0.0-1.0); EOS # 0.1 10^3/uL (0.0-0.5); EOS % 1.9 % (0.0-3.0); LYMPH # 0.2 10^3/uL (1.5-5.0); LYMPH % 7.1 % (24.0-44.0); MEAN CORPUSCULAR HEMOGLOBIN 30.7 pg (27.0-33.0); MEAN CORPUSCULAR HGB CONC 29.3 g/dl (32.0-36.5); MEAN CORPUSCULAR VOLUME 104.7 fl (80.0-96.0); MONO # 0.2 10^3/uL (0.0-0.8); MONO % 6.3 % (2.0-8.0); NEUTROPHILS # 2.2 10^3/uL (1.5-8.5); NEUTROPHILS % 83.6 % (36.0-66.0); RED BLOOD COUNT 1.27 10^6/uL (4.30-6.10); WHITE BLOOD COUNT 2.7 10^3/uL (4.0-10.0)
--- OUTSIDE RECORDS SUMMARY | 2020-05-10 04:33 | CCD | Continuity of Care Document ---
Author Author Jose Antonio HUMPHRIES DPM Organization Unknown Address [address] [place] [id number] Phone [phone] Care Team Providers Care Medical Grade Shoemaker Name Role Phone Sebastian Gaitan AUTM [phone] Problems Active Problems Provider Date Hypertensive heart AND chronic kidney disease stage 4 Onset: Chronic diastolic heart failure Onset: 0 Chronic kidney disease due to type 2 diabetes mellitus Onset: Chronic atrial fibrillation Onset: Gout Onset: Dependence on hemodialysis due to end stage renal disease Onset: Social History Type Date Description Comments Sex Unknown Tobacco Use Start: Unknown Never Smoked Cigarettes Tobacco Use Start: Unknown Never Smoked Cigars Tobacco Use Start: Unknown Never Smoked A Pipe Smoking Status Reviewed: 05/08/20 Never Smoked A Pipe Tobacco Use Start: Unknown Never Used Smokeless Tobacco Tobacco Use Start: Unknown Patient has never smoked Allergies, Adverse Reactions, Alerts Description No Information Available Medications Active Medications SIG Qnty Indications Ordering Provide r Date Clonidine 0.2mg/24HR Patches Weekl y every week Unknown Allopurinol 100mg Tablets 1 by mouth every day Unknown Eliquis 2.5mg Tablets Unknown Calcitriol 0.25mcg Capsules Unknown Levothyroxine Sodium 88mcg Capsules Unknown Valsartan 160mg Tablets 1 by mouth every day Unknown Gabapentin 100mg Capsules 1 P O bid Unknown Lactulose 10GM/15ML Solution take 15-30ml by mouth once daily as needed for constipation U nknown Polyethylene Glycol 3350 17gm Pack et 1 capful daily as needed for constipation Unknown Torsemide 100mg Tablets 1/2 T ab bid Unknown Pantoprazole Sodium 40mg Tablets D R 1 by mouth every day Unknown Immunizations Description No Information Available Vital Signs Description No Information Available Results Description No Information Available Procedures Date Code Description Status 05/08/2020 75301 Debridement Nails Any Method 6 O r More Completed 05/08/2020 96625 Pare Hyperkeratotic Lesion, Sing le Completed Medical Devices Description No Information Available Encounters Type Date Location Provider Dx Diagnosis Office Visit 05/08/2020 2:00p [facility] Podiatry Melquiades Humphries DPM B35.1 Tinea unguium E11.42 Type 2 diabetes mellitus wit h diabetic polyneuropathy I73.9 Peripheral vascular disease, unspecified M79.672 Pain in left foot M79.671 Pain in right foot L84 Corns and callosities Assessments Date Code Description Provider 05/08/2020 B35.1 Tinea unguium Melquiades Humphries DPM 05/08/2020 E11.42 Type 2 diabetes mellitus with di abetic polyneuropathy Melquiades Humphries DPM 05/08/2020 I73.9 Peripheral vascular disease, uns pecified Melquiades Humphries DPM 05/08/2020 M79.672 Pain in left foot Monique Bates PM 05/08/2020 M79.671 Pain in right foot Melquiades Humphries DPM 05/08/2020 L84 Corns and callosities Melquiades Sandoval i, DPM Plan of Treatment Future Appointment(s):* 07/17/2020 2:45 pm - Melquiades Humphries DPM at [facility] Podiatry 05/08/2020 - Melquiades Humphries DPM* B35.1 Tinea unguium* Follow up:* Patient was advised to follow up in 10 weeks for routine diabetic foot care or sooner should any issues arise of if he has breakdown of the site on his dorsal left foot. He should continue to follow up with Vascular. * Recommendations:* 1. The patient was seen and evaluated. 2. He has diabetic neuropathy and peripheral vascular disease. He has already seeing [facility] and is going to start using compression stocking. He does have varicosities and some inflamed varicose veins in his dorsal left foot. There is no open wound at this time; however, with his swelling, this could be a weak area that could break down. I applied 2 x 2 gauze and Coban. This may work better for him than the Band-Aid that he was previously using as these were causing irritation and peeling of the skin. Debridement of all ten nails was performed for length and thickness with a nail nipper and evan. Debridement of one hyperkeratotic lesion was performed with a evan. We discussed ways to moisturize his feet to help with the dryness including applying moisturizer after shower and cover with a cotton sock and plastic bag and again cover with a cotton sock. He may do it 2-3 days at a time when his feet are very dry, otherwise he may moisturize it normally after his shower daily. We will have him return in 10 weeks for routine diabetic foot care or sooner should any issues arise or if he has breakdown of the site on his dorsal left foot. He should continue to follow up with [facility]. * E11.42 Type 2 diabetes mellitus with diabetic polyneuropathy * I73.9 Peripheral vascular disease, unspecified * M79.672 Pain in left foot * M79.671 Pain in right foot * L84 Corns and callosities Functional Status Description No Information Available Mental Status Description No Information Available Referrals Description No Information Available
--- OUTSIDE RECORDS SUMMARY | 2020-05-10 04:34 | CCD | Continuity of Care Document ---
Author Author Jose Antonio BRITT Organization Unknown Address [address] [place] [address], [place] [address] Phone [phone] Care Team Providers Care Licensed Optical Dispenser Name Role Phone Joseph Wilson MD AUTM [phone] Alvarez Johnson MD AUTM [phone] Sebastian Gaitan AUTM [phone] Matt Ibarra MD AUTM [phone] Problems Active Problems Provider Date Benign hypertensive heart disease with congestive card iac failure Jason Johnson MD Onset: 05/19/2011 Chronic diastolic heart failure Jason Johnson MD Onset: 05/19/2011 Benign essential hypertension Jason Johnson MD Onset: Coronary arteriosclerosis Jason Johnson MD Onset: 2011 Old myocardial infarction Jason Johnson MD Onset: 2011 Patient post percutaneous transluminal coronary angiop lasty Jason Johnson MD Onset: 11/17/2011 Aortocoronary Bypass Postsurgical Status Lisa Parker Onset: 11/17/2011 First degree atrioventricular block Jason Johnson MD Ons et: 11/17/2011 Atrial flutter Jason Johnson MD Onset: 07/20/2012 Pure hypercholesterolemia Jason Johnson MD Onset: 2013 Precordial pain Jason Johnson MD Onset: 08/16/2013 Noncompliance with treatment Jeanette Bruner NP Onset: 06/2014 Essential hypertension Jason Johnson MD Onset: 5 History of coronary artery bypass grafting Jason Johnson MD Onset: 02/28/2015 Electrocardiogram abnormal Jason Johnson MD Onset: 07/09 Paroxysmal atrial fibrillation Jason Johnson MD Onset: 0 07/28/2016 Bleeding Jason Johnson MD Onset: 09/17/2016 Persistent atrial fibrillation Jason Johnson MD Onset: 0 07/29/2017 Obesity Jason Johnson MD Onset: 07/29/2017 Mixed hyperlipidemia Jason Johnson MD Onset: 07/29/2017 Dietary management surveillance Jason Johnson MD Onset: 07/29/2017 Overweight Jason Johnson MD Onset: 07/29/2017 Edema Jason Johnson MD Onset: 08/05/2017 Breathing painful Jason Johnson MD Onset: 06/14/2018 Preoperative cardiovascular examination GERARDO Falcon Onset: 03/22/2019 Permanent atrial fibrillation GERARDO Falcon Onset: Permanent atrial fibrillation GERARDO Amin Onset: 05/01/2020 Social History Type Date Description Comments Sex Unknown Tobacco Use Start: Unknown Never Smoked Cigarettes ETOH Use Does not consume alcohol Tobacco Use Start: Unknown Patient has never smoked Smoking Status Reviewed: 05/01/20 Patient has never smoked Exercise Type/Frequency Walks sporadically Exercise Type/Frequency Does housework twice a w [place] Exercise Limitations Back Pain Exercise Limitations Joint Pain Allergies, Adverse Reactions, Alerts Active Allergies Reaction Severity Comments Date Sulfa nausea 05/13/2006 Penicillin itching 05/13/2006 Tetracycline itch 05/13/2006 Erythromycin nausea 05/13/2006 IVP Dye redness, couldn't walk on le g 10/20/2006 Carvedilol Symptomatic bradycardia syncope 07/13 Amlodipine excessive L/E edema 10/27/19 17 Hydralazine dizziness and weakness 12/12 Keflex 03/21/2019 Minoxidil anasarca 03/21/2019 Medications Active Medications SIG Qnty Indications Ordering Provide r Date Gabapentin 100mg Capsules 1 by mouth two times a day Matt Ibarra MD 021 Pantoprazole Sodium 40mg Tablets D R 1 by mouth every day Matt Ibarra MD 021 Valsartan 160mg Tablets 1 by mouth daily at bedtime Matt Ibarra MD 021 Clonidine 0.1mg/24HR Patches Weekl y apply 1 patch every week. Remove old patch before applying new patch. Unknown 01/03/2019 Allopurinol 100mg Tablets 1 by mouth every day Unknown 01/03/2019 Eliquis 2.5mg Tablets 1 by mouth twice a day Unknown 01/03/2019 Calcitriol 0.25mcg Capsules 1 by mouth wednesday, wednesday, and wednesday Unknown Lactulose 10GM/15ML Solution drink 30 milliliters by mouth once daily as needed Unknow n 01/03/2019 Mylanta Maximum Strength [id number]/5ML Suspension as needed Unknown 01/03/2019 Lidocaine 5% Patches 12 hours on and 12 hours off as needed Unknown 08/14/2018 Torsemide 100mg Tablets 1/2 by mouth twice a day Unknown 08/14/2018 Mupirocin 2% Ointment apply as directed as needed Unknown 08/14/2018 Levothyroxine Sodium 88mcg Tablets 1 by mouth every day Unknown 06/13/2018 Polyethylene Glycol 3350 3350NF Po wder 17 g in 4-8 oz liquid daily as needed Unknown 07/28/2017 Nitrostat 0.4mg Tablets Sub 1 sl every 5min x3 as needed for chest pain 5bottles I25.10 Jason quick MD 07/13/2013 Xalatan 0.005% Solution 1 gtt o.u. hs Unknown 07/16/2009 Colace 100mg Capsules 1 po bi d kimn Joseph Wilson MD 02/21/2009 Aspirin 81mg Tablets 1 PO Jose Sun DO 06/08/2007 Multivitamins Tablets 1 PO D Joseph Carter MD 06/08/2007 Xanax 0.5mg Tablets 3 times a day as needed for anxiety Unknown Cyclobenzaprine HCL 10mg Tablets 1 tab by mouth every 12 hours as needed for pain Unknown Immunizations Description No Information Available Vital Signs Date Vital Result Comment 05/01/2020 2:33pm Weight 160.00 lb Home Weight 148lb Height 74 inches 6'2" BMI (Body Mass Index) 20.5 kg/m2 Heart Rate 67 /min 09/22/2019 11:42am Weight 164.00 lb Home Weight 160lb Height 74 inches 6'2" BMI (Body Mass Index) 21.1 kg/m2 Heart Rate 75 /min BP Systolic Sitting 144 mmHg adult cuff, Ra BP Diastolic Sitting 70 mmHg adult cuff, Ra Results Description No Information Available Procedures Date Code Description Status 05/01/2020 22396 ECG 12-Lead Completed 11/27/2019 03224 Treadmill/Pharmacological Monito ring Completed 11/27/2019 30254 Myocardial Perfusion Spect Multi ple Completed Medical Devices Description No Information Available Encounters Type Date Location Provider Dx Diagnosis Office Visit 05/01/2020 2:30p Main Office GERARDO Amin Z01 .810 Encounter for preprocedural cardiovascular examination I25.10 Athscl heart disease of [place] coronary artery w/o ang pctrs I48.21 Permanent atrial fibrillatio n I48.3 Typical atrial flutter I11.0 Hypertensive heart disease w ith heart failure I50.32 Chronic diastolic (congestiv e) heart failure R94.31 Abnormal electrocardiogram [ ECG] [EKG] Z71.3 Dietary counseling and surve illance Assessments Date Code Description Provider 05/01/2020 Z01.810 Encounter for preprocedural card iovascular examination GERARDO Amin 05/01/2020 I25.10 Atherosclerotic heart disease of [place] coronary artery with GERARDO Amin 05/01/2020 I48.21 Permanent atrial fibrillation Ca G[place]ARDO [place] 05/01/2020 I48.3 Typical atrial flutter GERARDO Amin 05/01/2020 I11.0 Hypertensive heart disease with heart failure GERARDO Amin 05/01/2020 I50.32 Chronic diastolic (congestive) h eart failure GERARDO Amin 05/01/2020 R94.31 Abnormal electrocardiogram [ECG] [EKG] GERARDO Amin 05/01/2020 Z71.3 Dietary counseling and surveilla nce GERARDO Amin 11/27/2019 I25.10 Atherosclerotic heart disease of [place] coronary artery with Stress Nuclear/Reg Treadmill Plan of Treatment Future Appointment(s):* 08/05/2020 2:30 pm - GERARDO Amin at Main Office 05/01/2020 - GERARDO Amin* Z01.810 Encounter for preprocedural cardiovascular examination * I25.10 Atherosclerotic heart disease of [place] coronary artery with * I48.21 Permanent atrial fibrillation * I48.3 Typical atrial flutter * I11.0 Hypertensive heart disease with heart failure * I50.32 Chronic diastolic (congestive) heart failure * R94.31 Abnormal electrocardiogram [ECG] [EKG]* Recommendations:* No further evaluation is needed at this time. * Z71.3 Dietary counseling and surveillance* Recommendations:* Recommended for patient to follow a more whole food diet. Advised patient to avoid overly processed foods and packaged foods. Advised patient to avoid sodas, juices and other liquid calories. Recommended at least 30 minutes of exercise 3 days a week. * All * Follow up:* Follow up in 3 months Functional Status Functional Condition Comment Date Status Independent with all ADL's Activ e Requires assistance with ambulating uses 4 wheel walke r with hand brakes and seat or cane Active Mental Status Description No Information Available Referrals Refer to Reason for Referral Status Appt Date Jason Johnson MD [facility] AUTH EMR-EXPIRES 12/30/19. [place] Created [id number] [phone]
--- OUTSIDE RECORDS SUMMARY | 2020-05-10 04:35 | CCD | Continuity of Care Document ---
Author Author Jose Antonio GAITAN RPA Organization Unknown Address [address] [facility] [address] [place] [address] Phone [phone] Problems Active Problems Provider Date Hypothyroidism Onset: 12/06/2000 Chronic bronchitis [facility] Onset: 04/15 Type 2 diabetes mellitus Dennis Bryson RPA Onset: 04/25 Note: Dr. Wilson Allergic rhinitis Marion Weldon RPA Onset: 01/30/2005 Hyperparathyroidism Sebastian Gaitan, RPA Onset: 06/12/2010 Note: Dr. Wilson Gout Sebastian Gaitan, RPA Onset: 06/12/2010 Absent kidney Sebastian Gaitan, RPA Onset: 06/12/2010 Note: Dr. Wilson Coronary arteriosclerosis Sebastian Gaitan, RPA Onset: 05/15 Note: Hx CABG. Acute myocardial infarction Sebastian Gaitan RPA Onset: Sleep apnea Sebastian Gaitan, ANNA Onset: 10/23/2010 Note: Dr. Johnson 10/07/10 Indigestion Sebastian Gaitan RPA Onset: 12/30/2010 Low back pain Sebastian Gaitan, ANNA Onset: 12/30/2010 Mixed hyperlipidemia Sebastian Gaitan, RPA Onset: 2 Lumbar radiculopathy Sebastian Gaitan, RPA Onset: 5 Seborrheic dermatitis of scalp Sebastian Gaitan, RPA Onset: 02/12/2015 Anxiety state Sebastian Gaitan, RPA Onset: 10/29/2016 Psoriasis Sebastian Gaitan, RPA Onset: 10/29/2016 Essential hypertension Sebastian Gaitan, RPA Onset: 017 Vitamin D deficiency Sebastian Gaitan RPA Onset: 7 Onychomycosis of toenails Sebastian Gaitan RPA Onset: 05/14 Chronic atrial fibrillation Sebastian Gaitan RPA Onset: End stage renal failure on dialysis Sebastian Gaitan RPA O nset: 06/22/2018 Diastolic heart failure Sebastian Gaitan RPA Onset: 2018 Type 2 diabetes mellitus with diabetic neuropathy, uns pecified Sebastian Gaitan RPA Onset: 09/18/2019 Social History Type Date Description Comments Sex Unknown Tobacco Use Start: Unknown Never Smoked Cigarettes ETOH Use alcohol use: never used Tobacco Use Start: Unknown Patient has never smoked Allergies, Adverse Reactions, Alerts Active Allergies Reaction Severity Comments Date Penicillin 12/13/2000 Tetracycline 12/13/2000 Sulfa Drugs 12/13/2000 Erythromycin 05/12/2002 IVP Dye 09/25/2010 Carvedilol Per Cardiology 10/29/2016 Amlodipine 06/22/2018 Hydralazine 06/22/2018 Medications Active Medications SIG Qnty Indications Ordering Provide r Date Onetouch Delica Plus Lancets Extra Fine 33G Plus 33G Misc test 4X daily as directed. E11.9 360units David Toledo D.O., [facility] 03/22/2020 Onetouch Verio Strips for testing bs 4X daily dx:e11.9 360units David Toledo D.O., FAAFP 0 03/22/2020 Montelukast Sodium 10mg Tablets take 1 tablet at bedtime 30tabs David Toledo D.O., [facility] 0 03/22/2020 Mupirocin 2% Ointment top twice a day x 10 days left leg wound. 45gms David Toledo D.O., FAAF P 09/13/2019 Clindamycin HCL 150mg Capsules one by mouth three times a day x 7 days With Probiotic 21caps David Toledo D.O., FAAFP 09/13/2019 Ventolin HFA 108(90Base) mcg/Act A erosol ii puffs every 4-6 hours as needed 54gm David robert D.O., [facility] 08/14/2019 Cane/Adjustable/Aluminum/Round Handle Misc use to assist in ambulation dx: 274.9, m54.16, 724.4 1units [facility] 09/14/2018 Prevnar 13 Suspension injection x 1 .500ml [facility] 09/30/2017 Polyethylene Glycol 3350 3350NF Po wder dissolve 17 gram (1 capful) in fluid and take by mouth once daily 527units [facility] 06/02/2017 Xanax 0.5mg Tablets 1 by mouth twice a day as needed (istop: [id number]) 60tabs Shelbi Miller, [facility] 07/29/2016 Lidoderm 5% Patches 2 top every day for 12 hours 180units David Toledo D.O., [facility] 02/2010 Valsartan 160mg Tablets 1 by mouth every day Unknown Glipizide ER 2.5mg Tablets ER 24HR take one tablet by mouth daily Unknown Eliquis 2.5mg Tablets 1 by mouth twice a day Unknown Metolazone 2.5mg Tablets 1 by mouth every Mon, Wed, Fri. Unknown Clonidine 0.1mg/24HR Patches Weekl y 1 topically every week Unknown Torsemide 100mg Tablets 1/2 by mouth twice a day (50mg tab bid) Unknown Amiloride HCL 5mg Tablets 1 by mouth every day Unknown Synthroid 88mcg Tablets 1 by mouth every day Unknown Colace 100mg Capsules 1 by mouth twice a day Unknown Ergocalciferol [id number] Capsules one tablet po q week Unknown Sensipar 30mg Tablets 1 every 2 weeks Unknown Klor-Con 10 10Meq Tablets ER take one tablet by mouth twice a day Unknown Atorvastatin Calcium 40mg Tablets 1 po qd (Dr. Johnson) 30tabs Unknown Multivitamins Capsules 1 po qd Unknown Allopurinol 100mg Tablets 1 po qd 30tabs Unknown Aspirin 81mg Tablets 1 po qd Unknown Nitroglycerin Sublingual Tabs 0.4m g One Tab SL Q 5 Minutes X 3 prn Misc. Medications Administered in Office Medication SIG Qnty Indications Ordering Provider Date Injection (SC)/(Im) Injection Sebastian Gaitan, ANNA 06/16/2019 Injection (SC)/(Im) Injection Sebastian Gaitan, RPA 12/28/2018 Injection (SC)/(Im) Injection Sebastian Gaitan, RPA 12/30/2010 Injection (SC)/(Im) Injection Sebastian Gaitan, RPA 12/30/2010 Injection (SC)/(Im) Injection Jose Womack, DO 01/13/2005 Immunizations CPT Code Status Date Vaccine Lot # 95550 Given 12/28/2018 Pneumococcal Immunization S0 65073 52923 Given 12/30/2010 Influenza Vaccin e (Fluzone) 3Yrs Of Age Or Older Medicare Plans 44024 Given 12/30/2010 Pneumococcal Immunization 12 [id number] 26510 Given 12/30/2010 Influenza Virus Vac. Split Virus Individuals 3 Years And Above [id number] 53690 Given 10/22/2003 Pneumococcal Immunization Vital Signs Date Vital Result Comment 03/22/2020 3:09pm BP Systolic 142 mmHg BP Diastolic 86 mmHg Body Temperature 97.3 F Heart Rate 73 /min Respiratory Rate 16 /min Height 72 inches 6'0" Weight 160.00 lb [place] Body Weight 178 lb BMI (Body Mass Index) 21.7 kg/m2 O2 % BldC Oximetry 98 % 11/15/2019 3:18pm BP Systolic 142 mmHg right arm BP Diastolic 70 mmHg right arm Body Temperature 98.3 F Heart Rate 90 /min Respiratory Rate 18 /min Height 72 inches 6'0" Weight 164.00 lb [place] Body Weight 178 lb BMI (Body Mass Index) 22.2 kg/m2 O2 % BldC Oximetry 98 % Results Test Acquired Date Facility Test Result H/L Range Note [facility] [phone] Bedside Glucose 131 mg/dL High 83-110 Blood Culture 10/19/2019 [facility] [phone] Blood Culture No growth after <SEE NOTE> 1 Prothrombin Time/Inr 10/19/2019 [facility]) [phone] Prothrombin Time 17.4 seconds High 11.8-14.0 Inr 1.39 Normal 2 CBC With Differential 10/19/2019 [facility]) [phone] White Blood Count 4.2 10 Normal 4.0-10.0 Red Blood Count 3.36 10 Low 4.30-6.10 Hemoglobin 10.4 g/dL Low 13.5-17.5 Hematocrit 31.7 % Low 42.0-52.0 Mean Corpuscular Volume 94.3 fl Normal 80.0-96.0 Mean Corpuscular Hemoglobin 31.0 pg Normal 27.0-33.0 Mean Corpuscular HGB Conc 32.8 g/dL Normal 32.0-36.5 Red Cell Distribution Width 12.9 % Normal 11.5-14.5 Platelet Count, Automated 118 10 Low 150-450 Neutrophils % 78.2 % High 36.0-66.0 Lymph % 11.7 % Low 24.0-44.0 [place] % 7.2 % High 0.0-5.0 Eos % 2.2 % Normal 0.0-3.0 Baso % 0.5 % Normal 0.0-1.0 Immature Granulocyte % 0.2 % Normal 0-3.0 Nucleated Red Blood Cell % 0.0 % Normal 0-0 Neutrophils # 3.3 10 Normal 1.5-8.5 Lymph # 0.5 10 Low 1.5-5.0 Armstrong # 0.3 10 Normal 0.0-0.8 Eos # 0.1 10 Normal 0.0-0.5 Baso # 0.0 10 Normal 0.0-0.2 Comprehensive Metabolic Profil 10/19/2019 [facility]) [phone] Glucose, Fasting 203 mg/dL High 70-100 Blood Urea Nitrogen 50 mg/dL High 7-18 Creatinine For GFR 3.54 mg/dL High 0.70-1.30 Glomerular Filtration Rate 18.0 Low >42 3 Sodium Level 140 mEq/L Normal 136-145 Potassium Serum 3.6 mEq/L Normal 3.5-5.1 Chloride Level 104 mEq/L Normal 98-107 Carbon Dioxide Level 29 mEq/L Normal 21-32 Anion Gap 7 mEq/L Low 8-16 Calcium Level 9.1 mg/dL Normal 8.8-10.2 Ast/Sgot 10 U/L Normal 7-37 Alt/SGPT 18 U/L Normal 12-78 Alkaline Phosphatase 91 U/L Normal 45-117 Bilirubin,Total 0.6 mg/dL Normal 0.2-1.0 Total Protein 6.5 GM/DL Normal 6.4-8.2 Albumin 3.5 GM/DL Normal 3.2-5.2 Albumin/Globulin Ratio 1.2 Normal Laboratory test finding 09/29/2019 [facility] (Interface) [phone] Bedside Glucose 106 mg/dL Normal 83-110 1 No growth after 72 hours . A ll specimens observed for 5 days. Results final at that time. No growth after 48 hours . All specimens observed for 5 days. Results final at that time. No growth after 24 hours . All specimens observed for 5 days. Results final at that time. NO GROWTH AFTER 5 DAYS 2 THERAPUTIC HUMAN INR VALUES INDICATIONS NORMAL RANGES PROPHYLAXIS/TREATMENT OF: VENOUS THROMBOSIS 2.0-3.0 PULMONARY EMBOLISM 2.0-3.0 PREVENTION OF SYSTEMIC EMBOLISM FROM: TISSUE HEART VALVES 2.0-3.0 ACUTE MYOCARDIAL INFARCTION 2.0-3.0 VALVULAR HEART DISEASE 2.0-3.0 ATRIAL FIBRILLATION 2.0-3.0 MECHANICAL VALVES(HIGH RISK) 2.5-3.5 RECURRENT MYOCARDIAL INFARCTION 2.5-3.5 3 Units are mL/min/1.73 m2 Chronic Kidney Disease Staging per NKF: Stage I & II GFR >=60 Normal to Mildly Decreased Stage III GFR 30-59 Moderately Decreased Stage IV GFR 15-29 Severely Decreased Stage V GFR <15 Very Little GFR Left ESRD GFR <15 on BELLHOP Procedures Description No Information Available Medical Devices Description No Information Available Encounters Type Date Location Provider Dx Diagnosis Office Visit 03/22/2020 3:00p [place] [facility] Sebastian Gaitan, MIL A J00 Acute nasopharyngitis [common cold] J30.9 Allergic rhinitis, unspecifi ed J45.909 Unspecified asthma, uncompli cated Office Visit 11/15/2019 2:40p [place] [facility] Sebastian Gaitan, RP A S45.892A Inj oth blood vessels at shldr/up arm, left arm, init F07.81 Postconcussional syndrome Assessments Date Code Description Provider 03/22/2020 J00 Acute nasopharyngitis [common co ld] Sebastian Gaitan, RPA 03/22/2020 J30.9 Allergic rhinitis, unspecified H Sebastian gunn, RPA 03/22/2020 J45.909 Unspecified asthma, uncomplicate d Sebastian Gaitan, RPA 11/15/2019 S45.892A Other specified inju ry of other specified blood vessels at shoulder and upper arm level, left arm, initial encounter Sebastian Gaitan, RPA 11/15/2019 F07.81 Postconcussional syndrome Sebastian Gaitan, RPA 11/06/2019 S55.892S Other specified inju ry of other blood vessels at forearm level, left arm, sequela Sebastian Gaitan, RPA 11/06/2019 Z99.2 Dependence on renal dialysis Sebastian Putnam, RPA 11/06/2019 N18.6 End stage renal disease Sebastian Gaitan, RPA Plan of Treatment No Information Available Functional Status Description No Information Available Mental Status Description No Information Available Referrals Description No Information Available
[2020-05-10 04:36] LABS: HEMATOCRIT 13.3 % (42.0-52.0); HEMOGLOBIN 3.9 g/dl (13.5-17.5); PLATELET COUNT, AUTOMATED 49 10^3/uL (150-450)
--- OUTSIDE RECORDS SUMMARY | 2020-05-10 04:37 | CCD | Continuity of Care Document ---
Author Author Jose Antonio GAITAN RPA Organization Unknown Address [address] [facility] [address] [place] [address] Phone [phone] Problems Active Problems Provider Date Hypothyroidism Onset: 12/06/2000 Chronic bronchitis [facility] Onset: 04/15 Type 2 diabetes mellitus [...] 274.9, m54.16, 724.4 1units [facility] 09/14/2018 Prevnar 13 Suspension injection x 1 .500ml [facility] 09/30/2017 Polyethylene Glycol 3350 3350NF Po wder dissolve 17 gram (1 capful) in fluid and take by mouth once daily 527units [facility] 06/02/2017 Xanax 0.5mg Tablets 1 by mouth twice a day as needed (istop: [id number]) 60tabs Shelbi Miller, [facility] 07/29/2016 Lidoderm 5% Patches 2 top every day for 12 hours 180units David Toledo D.O., [facility] 02/2010 Valsartan 160mg Tablets 1 by mouth [...] by mouth twice a day Unknown Ergocalciferol 43383Fvew Capsules one tablet po q week Unknown [...] CPT Code Status Date Vaccine Lot # 09802 Given 12/28/2018 Pneumococcal Immunization S0 98639 57694 Given 12/30/2010 Influenza Vaccin e (Fluzone) 3Yrs Of Age Or Older Medicare Plans 83369 Given 12/30/2010 Pneumococcal Immunization 12 [id number] 34941 Given 12/30/2010 Influenza Virus Vac. Split Virus Individuals 3 Years And Above [id number] Given 10/22/2003 Pneumococcal Immunization Vital Signs Date Vital Result Comment 03/22/2020 3:09pm BP Systolic 142 mmHg BP Diastolic 86 mmHg Body Temperature 97.3 F Heart Rate 73 /min Respiratory Rate 16 /min Height 72 inches 6'0" Weight 160.00 lb [place] Body Weight 178 lb BMI (Body Mass Index) 21.7 kg/m2 O2 % BldC Oximetry 98 % 11/15/2019 3:18pm BP Systolic 142 mmHg right arm BP Diastolic 70 mmHg right arm Body Temperature 98.3 F Heart Rate 90 /min Respiratory Rate 18 /min Height 72 inches 6'0" Weight 164.00 lb [place] Body Weight 178 lb BMI (Body Mass Index) 22.2 kg/m2 O2 % BldC Oximetry 98 % Results Test Acquired Date Facility Test Result H/L Range Note Laboratory test finding [facility] [phone] Bedside Glucose 131 mg/dL High 83-110 Blood Culture 10/19/2019 [facility] [phone] Blood Culture No growth after <SEE NOTE> 1 Prothrombin Time/Inr 10/19/2019 [facility]) [phone] Prothrombin Time 17.4 seconds High 11.8-14.0 Inr 1.39 Normal 2 CBC With Differential 10/19/2019 [facility]) [phone] White Blood Count 4.2 10 Normal 4.0-10.0 [...] 36.0-66.0 Lymph % 11.7 % Low 24.0-44.0 [place] % 7.2 % High 0.0-5.0 Eos % 2.2 % Normal 0.0-3.0 Baso % 0.5 % Normal 0.0-1.0 Immature Granulocyte % 0.2 % Normal 0-3.0 Nucleated Red Blood Cell % 0.0 % Normal 0-0 Neutrophils # 3.3 10 Normal 1.5-8.5 Lymph # 0.5 10 Low 1.5-5.0 [place] # 0.3 10 Normal 0.0-0.8 Eos # 0.1 10 Normal 0.0-0.5 Baso # 0.0 10 Normal 0.0-0.2 Comprehensive Metabolic Profil 10/19/2019 [facility]) [phone] Glucose, Fasting 203 mg/dL High 70-100 Blood [...] Ratio 1.2 Normal Laboratory test finding 09/29/2019 [facility] (Interface) [phone] Bedside Glucose 106 mg/dL Normal 83-110 1 [...] Little GFR Left ESRD GFR <15 on [employer] Procedures Description No Information Available Medical Devices Description No Information Available Encounters Type Date Location Provider Dx Diagnosis Office Visit 03/22/2020 3:00p [place] [facility] Sebastian Gaitan, MIL A J00 Acute nasopharyngitis [common cold] J30.9 Allergic rhinitis, unspecifi ed J45.909 Unspecified asthma, uncompli cated Office Visit 11/15/2019 2:40p [place] [facility] Sebastian Gaitan, RP A S45.892A Inj [...]
--- OUTSIDE RECORDS SUMMARY | 2020-05-10 04:39 | CCD | Continuity of Care Document ---
Author Author Jose Antonio MARIE MD Organization Unknown Address [address] [facility], [address] [place] [address] Phone [phone] Care Team Providers Care Smart Grid Engineer Name Role Phone Matt Ibarra M.D. AUTM Sebastian Gaitan AUTM Jason Johnson M.D. AUTM [phone] [facility] AUTM [phone] Problems Active Problems Provider Date Essential hypertension GERARDO Nieves Onset: 08/11/2018 Social History Type Date Description Comments Sex Unknown ETOH Use Denies alcohol use Tobacco Use Start: Unknown Denies Smoking Recreational Drug Use Denies Drug Use Smoking Status Reviewed: 02/12/20 Denies Smoking Allergies, Adverse Reactions, Alerts Active Allergies Reaction Severity Comments Date Penicillin Itching, RASH 08/11/2018 Sulfa 08/11/2018 Amlodipine 08/11/2018 Cephalexin 08/11/2018 Erythromycin 08/11/2018 Hydralazine 08/11/2018 Minoxidil 08/11/2018 Tetracycline 08/11/2018 Contrast Dye 08/11/2018 Carvedilol 08/11/2018 Medications Active Medications SIG Qnty Indications Ordering Provide r Date Prednisone 50mg Tablets take one pill 13 hours prior to procedure take one pill 7 hours prior to procedure take one pill 1 hour prior to procedure 3tabs Barb Marie MD 0 08/28/2019 Benadryl Allergy 25mg Capsules one tablet by mouth 1 hour before exam 2caps Barb Marie MD 08/28/2019 Norvasc 5mg Tablets 1 Tab AT hs Unknown Xanax 0.5mg Tablets 3 times a day as needed for anxiety Unknown Cyclobenzaprine HCL 10mg Tablets 1 tab by mouth every 12 hours as needed for pain Unknown Mylanta [phone]/5ML Suspensio n 5ml liquid by mouth - take when needed for severe burning symptoms. ( take 2-4 times per day). Unknown Lactulose 10GM/15ML Solution take 15 milliliters by mouth bid. may increase to 30 milliliters twice a day if necessary. Unknown Glipizide ER 2.5mg Tablets ER 24HR 1 qd Unknown Calcitriol 0.25mcg Capsules 1 On Mon, Wed & Wed W/ Dialysis Unknown Eliquis 2.5mg Tablets 1 bid Unknown Clonidine 0.1mg/24HR Patches Weekl y 1 Q Week Unknown Colace 100mg Capsules 1 tab by mouth twice a day prn Unknown Lidoderm 5% Patches 1 patch applied as needed Unknown Nitrostat 0.4mg Tablets Sub a s needed Unknown Torsemide 100mg Tablets 50mg po bid Unknown Polyethylene Glycol 3350 3350NF Po wder use 17 grams in 8 oz fluid once a day. Unknown Mupirocin 2% Ointment as directed twice a day Unknown Multivitamin Adult Tablets 1 by mouth every day Unknown Levothyroxine Sodium 88mcg Tablets 1 by mouth every day Unknown Latanoprost 0.005% Solution 1 drop OU qhs Unknown Atorvastatin Calcium 40mg Tablets 1 by mouth every night at bedtime Unknown Aspirin 81mg Tablets DR 1 by mouth every day Unknown Allopurinol 100mg Tablets 1 by mouth every day Unknown Immunizations Description No Information Available Vital Signs Date Vital Result Comment 02/22/2020 10:34am BP Systolic 200 mmHg BP Diastolic 100 mmHg Height 73 inches 6'1" Weight 159.12 lb BMI (Body Mass Index) 21.0 kg/m2 [place] Body Weight 184 lb Weight 72.179 kg BSA (Body Surface Area) 1.95 m2 02/12/2020 1:04pm BP Systolic 188 mmHg BP Diastolic 98 mmHg Height 73 inches 6'1" Weight 157.38 lb BMI (Body Mass Index) 20.8 kg/m2 [place] Body Weight 184 lb Weight 71.385 kg BSA (Body Surface Area) 1.94 m2 Results Test Acquired Date Facility Test Result H/L Range Note Laboratory test finding 01/19/2020 [facility] [address] [place] [address] [phone] Bedside Glucose 131 mg/dL High 83-110 Laboratory test finding 09/29/2019 [facility] [address] [place], [place] [id number] [phone] Bedside Glucose 106 mg/dL Normal 83-110 Procedures Date Code Description Status 01/19/2020 52154 Moderate Sedation Se rvices; Same Phys Intl 15 Mins; PT >= 5 Years Completed 01/19/2020 80071 Dialysis Circuit W/ Transluminal Balloon Angioplasty, Peripheral Completed 09/29/2019 81398 Moderate Sedation Se rvices; Same Phys Intl 15 Mins; PT >= 5 Years Completed 09/29/2019 63518 Dialysis Circuit W/ Transluminal Balloon Angioplasty, Peripheral Completed Medical Devices Description No Information Available Encounters Type Date Location Provider Dx Diagnosis Office Visit 01/01/2020 1:00p [facility] Barb reagan MD N18.6 End stage renal disease Z99.2 Dependence on renal dialysis Office Visit 11/06/2019 3:30p [facility] Barb reagan MD N18.6 End stage renal disease Z99.2 Dependence on renal dialysis T82.590A [facility] compl of surgically cre ated arteriovenous fistula, init Office Visit 10/09/2019 10:30a [facility] GERARDO Ceballos N18.6 End stage renal disease Z99.2 Dependence on renal dialysis Office Visit 08/28/2019 1:45p [facility] Barb reagan MD Z99.2 Dependence on renal dialysis N18.6 End stage renal disease T82.590A [facility] compl of surgically cre ated arteriovenous fistula, init Assessments Date Code Description Provider 02/12/2020 N18.6 End stage renal disease GERARDO Norris 02/12/2020 Z99.2 Dependence on renal dialysis GERARDO Guido 02/12/2020 I70.213 Atherosclerosis of n ative arteries of extremities with intermittent claudication, bilateral legs GERARDO Nieves 02/12/2020 I87.2 Venous insufficiency (chronic) ( peripheral) GERARDO Nieves 01/19/2020 T82.590A Other mechanical com plication of surgically created arteriovenous fistula, initial encounter Barb Marie MD 01/19/2020 N18.6 End stage renal disease Barb byrnes MD 01/01/2020 N18.6 End stage renal disease Barb byrnes MD 01/01/2020 Z99.2 Dependence on renal dialysis Melba Marie MD 11/06/2019 N18.6 End stage renal disease Barb byrnes MD 11/06/2019 Z99.2 Dependence on renal dialysis Melba Marie MD 11/06/2019 T82.590A Other mechanical com plication of surgically created arteriovenous fistula, initial encounter Barb Marie MD 10/09/2019 N18.6 End stage renal disease GERARDO Norris 10/09/2019 Z99.2 Dependence on renal dialysis GERARDO Guido 09/29/2019 T82.590A Other mechanical com plication of surgically created arteriovenous fistula, initial encounter Barb Marie MD 09/29/2019 N18.6 End stage renal disease Barb byrnes MD 08/28/2019 Z99.2 Dependence on renal dialysis Melba Marie MD 08/28/2019 N18.6 End stage renal disease Barb byrnes MD 08/28/2019 T82.590A Other mechanical com plication of surgically created arteriovenous fistula, initial encounter Barb Marie MD Plan of Treatment No Information Available Functional Status Description No Information Available Mental Status Description No Information Available Referrals Description No Information Available
--- OUTSIDE RECORDS SUMMARY | 2020-05-10 04:40 | CCD | Continuity of Care Document ---
Author Author Jose Antonio GAITAN RPA Organization Unknown Address [address] [facility] [place] [address] Phone [phone] Problems Active Problems Provider Date Hypothyroidism Onset: 12/06/2000 Chronic bronchitis [facility] Onset: 04/15 Type 2 diabetes mellitus [...] Gaitan RPA Onset: Sleep apnea Sebastian Gaitan, RPA Onset: 10/23/2010 Note: Dr. Johnson 10/07/10 Indigestion Sebastian Gaitan RPA Onset: 12/30/2010 Low back pain Sebastian Gaitan, ANNA Onset: 12/30/2010 Mixed hyperlipidemia Sebastian Gaitan RPA Onset: 2 Lumbar radiculopathy Sebastian Gaitan, [...] SIG Qnty Indications Ordering Provide r Date Mupirocin 2% Ointment top twice a day x 10 days left leg wound. 45gms David Toledo D.O., FAA P 09/13/2019 Clindamycin HCL 150mg Capsules one by mouth three times a day x 7 days With Probiotic 21caps David Toledo D.O., FAAFP 09/13/2019 Ventolin HFA 108(90Base) mcg/Act A erosol ii puffs every 4-6 hours as needed 54gm David robert D.O., FAAFP 08/14/2019 Cane/Adjustable/Aluminum/Round Handle Misc use to assist in ambulation dx: 274.9, m54.16, 724.4 1units David Toledo D.O., FAAFP 09/14/2018 Prevnar 13 Suspension injection x 1 .500ml David Toledo D.O., FAAFP 09/30/2017 Polyethylene Glycol 3350 3350NF Po wder dissolve 17 gram (1 capful) in fluid and take by mouth once daily 527units David Toledo D.O., FAAFP 06/02/2017 Xanax 0.5mg Tablets 1 by mouth twice a day as needed (istop: [id number]) 60tabs Shelbi Miller, [facility] 07/29/2016 Lidoderm 5% Patches 2 top every day for 12 hours 180units David Toledo D.O., [facility] 02/2010 Eliquis 2.5mg Tablets 1 by mouth twice [...] 1 by mouth every day Unknown Glipizide XL 5mg Tablets ER 24HR take one tablet by mouth daily 90tabs Unknown Colace 100mg Capsules 1 by mouth twice a day Unknown Ergocalciferol [id number] Capsules one tablet po q week Unknown [...] Q 5 Minutes X 3 prn Misc. History Medications Clindamycin HCL 300mg Capsules 1 by mouth three times a day x 10 days with probotic 30caps Daily Toledo D.O., [facility] 09/13/2019 - 09/13/2019 Clindamycin HCL 300mg Capsules 1 cap by mouth three times a day after meals x 7 days Abran Toledo D.O., [facility] 09/13/2019 - 09/13/2019 Clindamycin HCL 150mg Capsules take one cap po bid x 7 days 14caps David Toledo D.O., [facility] 09/07/2019 - 09/13/2019 Medications Administered in Office Medication SIG Qnty Indications Ordering Provider Date Injection (SC)/(Im) Injection Sebastian Gaitan, RPA 06/16/2019 Injection (SC)/(Im) Injection Sebastian Gaitan, RPA 12/28/2018 Injection (SC)/(Im) Injection Sebastian Gaitan, RPA 12/30/2010 Injection (SC)/(Im) Injection Sebastian Gaitan, RPA 12/30/2010 Injection (SC)/(Im) Injection Jose Womack DO 01/13/2005 Immunizations CPT Code Status Date Vaccine Lot # [id number] Given 12/28/2018 Pneumococcal Immunization S0 [id number] Given 12/30/2010 Influenza Vaccin e (Fluzone) 3Yrs Of Age Or Older Medicare Plans 76285 Given 12/30/2010 Pneumococcal Immunization 12 [id number] 26924 Given 12/30/2010 Influenza Virus Vac. Split Virus Individuals 3 Years And Above [id number] Given 10/22/2003 Pneumococcal Immunization Vital Signs Date Vital Result Comment 11/15/2019 3:18pm BP Systolic 142 mmHg right arm BP Diastolic 70 mmHg right arm Body Temperature 98.3 F Heart Rate 90 /min Respiratory Rate 18 /min Height 72 inches 6'0" Weight 164.00 lb [place] Body Weight 178 lb BMI (Body Mass Index) 22.2 kg/m2 O2 % BldC Oximetry 98 % 09/18/2019 9:40am BP Systolic 110 mmHg BP Diastolic 74 mmHg Body Temperature 97.5 F Heart Rate 98 /min Respiratory Rate 16 /min Height 72 inches 6'0" Weight 164.00 lb [place] Body Weight 178 lb BMI (Body Mass Index) 22.2 kg/m2 O2 % BldC Oximetry 98 % Results Test Acquired Date Facility Test Result H/L Range Note Laboratory test [facility] [phone] Bedside Glucose 131 mg/dL High 83-110 Blood Culture 10/19/2019 [facility] (I nterface) [phone] Blood Culture No growth after <SEE NOTE> 1 Prothrombin Time/Inr 10/19/2019 [facility]) [phone] Prothrombin Time 17.4 seconds High 11.8-14.0 Inr 1.39 Normal 2 CBC With Differential 10/19/2019 [facility]) [phone] White Blood Count 4.2 10 Normal 4.0-10.0 [...] 36.0-66.0 Lymph % 11.7 % Low 24.0-44.0 [place] % 7.2 % High 0.0-5.0 Eos % 2.2 % Normal 0.0-3.0 Baso % 0.5 % Normal 0.0-1.0 Immature Granulocyte % 0.2 % Normal 0-3.0 Nucleated Red Blood Cell % 0.0 % Normal 0-0 Neutrophils # 3.3 10 Normal 1.5-8.5 Lymph # 0.5 10 Low 1.5-5.0 [place] # 0.3 10 Normal 0.0-0.8 Eos # 0.1 10 Normal 0.0-0.5 Baso # 0.0 10 Normal 0.0-0.2 Comprehensive Metabolic Profil 10/19/2019 [facility]) [phone] Glucose, Fasting 203 mg/dL High 70-100 Blood [...] Ratio 1.2 Normal Laboratory test finding 09/29/2019 [facility] (Interface) [phone] Bedside Glucose 106 mg/dL Normal 83-110 Aerobic Bacterial Culture 09/13/2019 [facility] [place] Aerobic Bacterial Culture Final report 4 , 5 Result 1 See Comment: 6 CBC 09/07/2019 [facility]/Inhouse WBC 4.0 10E3/uL Low 4.1 - 10.9 7 RBC 3.93 10E6/uL Low 4.20 - 6.30 HGB 12.6 g/dL 12.0 - 18.0 HCT 36.4 % Low 37.0 - 51.0 MCV 92.6 fL 80.0 - 97.0 MCH 32.1 pg High 26.0 - 32.0 MCHC 34.6 g/dL 31.0 - 36.0 PLT 154 10E3/uL 140 - 440 RDW-CV 13.7 % 11.5 - 14.5 Lym% 19.5 % 10.0 - 58.5 Neut% 71.2 % 37.0 - 92.0 MXD% 9.3 % 0.1 - 24.0 Lym# 0.8 10E3/uL 0.6 - 4.1 Neut# 2.8 % 2.0 - 7.8 MXD# 0.4 10E3/uL 0.0 - 1.8 MPV 10.7 fL 9.0 - 13.0 1 No growth after 72 hours . [...] Little GFR Left ESRD GFR <15 on STORE CASHIER 4 SRC: LEFT LEG 5 Source of Specimen: LEFT LE G 6 Source of Specimen: LEFT LE G No growth in 36 - 48 hours. 7 NORMAL RANGES Age WBC RBC HGB HCT MCV PLT Adult M 4.1-10.9 4.20-6.30 12.0-18.0 37.0-51.0 80-97 140-440 Adult F 4.1-10.9 4.04-5.48 12.0-18.0 37.0-51.0 80-97 140-440 0 -1 Yr 5.0-20.0 3.9-5.9 15-18 MV: 44 MV: 91 MV: 277 2-9 Yr. 6.0-17.0 3.8-5.4 11-13 MV: 37 MV: 78 MV: 300 10 Yrs. 5.0-13.0 3.8-5.4 12-15 MV: 39 MV: 80 MV: 250 NOTE: * FOR ADULT BLACK MALES AND FEMALES, NORMAL WBC IS 2.9-7.7 K/ML * FOR ADULT BLACK MALES AND FEMALES, NORMAL RBC,HGB, AND HCT IS 5% LESS SOURCE FOR DATA: [employer]EN[employer] DYN 1800 OPERATION MANUAL( AUTOMATED BLOOD COUNTS AND DIFF.) APPENDIX B-3 Procedures Description No Information Available Medical Devices Description No Information Available Encounters Type Date Location Provider Dx Diagnosis Office Visit 11/15/2019 2:40p [place] [facility] Sebastian Gaitan, RP A S45.892A Inj oth blood vessels at shldr/up arm, left arm, init F07.81 Postconcussional syndrome Office Visit 09/18/2019 9:45a [place] [facility] Sebastian Gaitan, RP A L03.116 Cellulitis of left lower limb R60.0 Localized edema Z99.2 Dependence on renal dialysis I48.20 Chronic atrial fibrillation, unspecified E11.40 Type 2 diabetes mellitus wit h diabetic neuropathy, unsp Office Visit 09/13/2019 2:20p [place] Sebastian Gaitan, RP A L03.116 Cellulitis of left lower limb R60.0 Localized edema Office Visit 09/07/2019 1:15p [facility] Chuck Olson PA L03.90 Cellulitis, unspecified Assessments Date Code Description Provider 11/15/2019 S45.892A Other specified inju ry of [...] End stage renal disease Sebastian Gaitan, RPA 09/18/2019 L03.116 Cellulitis of left lower limb Sebastian Koenig, RPA 09/18/2019 R60.0 Localized edema Sebastian Gaitan, RPA 09/18/2019 Z99.2 Dependence on renal dialysis Sebastian Putnam, RPA 09/18/2019 I48.20 Chronic atrial fibrillation, uns pecified Sebastian Gaitan, RPA 09/18/2019 E11.40 Type 2 diabetes charli itus with diabetic neuropathy, unspecified Sebastian Gaitan, RPA 09/13/2019 L03.116 Cellulitis of left lower limb Sebastian Koenig, RPA 09/13/2019 R60.0 Localized edema Sebastian Gaitan, RPA 09/07/2019 L03.90 Cellulitis, unspecified David Toledo D.O., [facility] 09/07/2019 L03.90 Cellulitis Marquis Olson PA Plan of Treatment No Information Available Functional Status Description No Information Available Mental Status Description No Information Available Referrals Description No Information Available
--- OUTSIDE RECORDS SUMMARY | 2020-05-10 04:43 | CCD | Continuity of Care Document ---
Author Author Jose Antonio HEREDIA Organization Unknown Address [address] [facility] [address], [address] [place] [address] Phone [phone] Care Team Providers Care Senior Planner Name Role Phone Matt Ibarra M.D. AUTM [phone] Sebastian aGitan AUTM [phone] Jason Johnson M.D. AUTM [phone] [facility] AUTM Problems Active Problems Provider Date Essential hypertension [...] hours as needed for pain Unknown Mylanta 100-115-28hp/5ML Suspensio n 5ml liquid by mouth - take when needed for severe burning symptoms. ( take 2-4 times per day). Unknown Lactulose 10GM/15ML Solution take 15 milliliters by mouth bid. may increase to 30 milliliters twice a day if necessary. Unknown Glipizide ER 2.5mg Tablets ER 24HR 1 qd Unknown Calcitriol 0.25mcg Capsules 1 On Mon, Weds & Wed W/ Dialysis Unknown Eliquis 2.5mg [...] Available Vital Signs Date Vital Result Comment 02/12/2020 1:04pm BP Systolic 188 mmHg BP Diastolic 98 mmHg Height 73 inches 6'1" Weight 157.38 lb BMI (Body Mass Index) 20.8 kg/m2 [place] Body Weight 184 lb Weight 71.385 kg BSA (Body Surface Area) 1.94 m2 01/01/2020 1:03pm BP Systolic 182 mmHg BP Diastolic 83 mmHg Height 73 inches 6'1" Weight 159.12 lb BMI (Body Mass Index) 21.0 kg/m2 [place] Body Weight 184 lb Weight 72.179 kg BSA (Body Surface Area) 1.95 m2 Results Test Acquired Date Facility Test Result H/L Range Note Laboratory test finding 09/29/2019 [facility] Main Lab [address] [place] [address] [phone] Bedside Glucose 106 mg/dL Normal 83-110 Procedures Date Code Description Status 09/29/2019 47105 Moderate Sedation Se rvices; Same Phys Intl 15 Mins; PT >= 5 Years Completed 09/29/2019 04697 Dialysis Circuit W/ Transluminal Balloon Angioplasty, Peripheral Completed Medical Devices Description No Information Available Encounters Type Date Location Provider Dx Diagnosis Office Visit 01/01/2020 1:00p [facility] Barb reagan MD N18.6 End stage renal disease Z99.2 Dependence on renal dialysis Office Visit 11/06/2019 3:30p [facility] Barb reagan MD N18.6 End stage renal disease Z99.2 Dependence on renal dialysis T82.590A [facility] compl of surgically cre ated arteriovenous fistula, init Office Visit 10/09/2019 10:30a [facility] GERARDO Ceballos N18.6 End stage renal disease Z99.2 Dependence on renal dialysis Office Visit 08/28/2019 1:45p [facility] Barb reagan MD Z99.2 Dependence on renal dialysis N18.6 End stage renal disease T82.590A [facility] compl of surgically cre ated arteriovenous fistula, init Assessments Date Code Description Provider 02/12/2020 N18.6 End stage renal disease GERARDO Norris 02/12/2020 Z99.2 Dependence on renal dialysis GERARDO Guido 02/12/2020 I70.213 Atherosclerosis of n ative arteries of extremities with intermittent claudication, bilateral legs GERARDO Nieves 02/12/2020 I87.2 Venous insufficiency (chronic) ( peripheral) GERARDO Nieves 01/01/2020 N18.6 End stage renal disease Barb [...]
[2020-05-10 04:46] LABS: INR 1.16; PARTIAL THROMBOPLASTIN TIME 33.3 SECONDS (24.2-38.5); PROTHROMBIN TIME 15.1 SECONDS (12.5-14.3)
--- OUTSIDE RECORDS SUMMARY | 2020-05-10 04:47 | CCD ---
Author Author [facility] Organization [facility] Address Unknown Phone Unavailable Care Team Providers Care Complementary Health Therapists Name Role Phone Glenda Marie MD Unavailable Unavailable Glenda Marie MD Unavailable Unavailable Glenda Marie MD Unavailable Unavailable Glenda Marie MD Unavailable Unavailable Glenda Marie MD Unavailable Unavailable Glenda Marie MD Unavailable Unavailable Glenda Marie MD Unavailable Unavailable Glenda Marie MD Unavailable Unavailable Glenda Marie MD Unavailable Unavailable Glenda Marie MD Unavailable Unavailable Glenda Marie MD Unavailable Unavailable Glenda Marie MD Unavailable Unavailable Glenda Marie MD Unavailable Unavailable Glenda Marie MD Unavailable Unavailable Glenda Marie MD Unavailable Unavailable Monique BONE MD Unavailable Unavailable Monique BONE MD Unavailable Unavailable Monique BONE MD Unavailable Unavailable Monique BONE MD Unavailable Unavailable Monique BONE MD Unavailable Unavailable Monique BONE MD Unavailable Unavailable Monique BONE MD Unavailable Unavailable Monique BONE MD Unavailable Unavailable Benny Bryson Jr Unavailable Unavailable Benny Bryson Jr PA Unavailable Unavailable Verbeck Jr, Benny Dennis PA Unavailable Unavailable Verbeck Jr, Benny Dennis PA Unavailable Unavailable Verbeck Jr, Benny Dennis PA Unavailable Unavailable Verbeck Jr, [place] Dennis PA Unavailable Unavailable Verbeck Jr, Benny Dennis PA Unavailable Unavailable Verbeck Jr, Benny Dennis PA Unavailable Unavailable Verbeck Jr, [place] Dennis PA Unavailable Unavailable Verbeck Jr, [place] Dennis PA Unavailable Unavailable Verbeck Jr, Benny Dennis PA Unavailable Unavailable Verbeck Jr, [place] Dennis PA Unavailable Unavailable Verbeck Jr, Benny Dennis PA Unavailable Unavailable Verbeck Jr, [place] Dennis PA Unavailable Unavailable Verbeck Jr, Benny Dennis PA Unavailable Unavailable Verbeck Jr, [place] Dennis PA Unavailable Unavailable Verbeck Jr, Benny Dennis PA Unavailable Unavailable Verbeck Jr, Benny Dennis PA Unavailable Unavailable Verbeck Jr, [place] Dennis PA Unavailable Unavailable Verbeck Jr, [place] Dennis PA Unavailable Unavailable Verbeck Jr, [place] Dennis PA Unavailable Unavailable Verbeck Jr, Benny Dennis PA Unavailable Unavailable Verbeck Jr, [place] Dennis PA Unavailable Unavailable Verbeck Jr, Benny Dennis PA Unavailable Unavailable Verbeck Jr, Benny Dennis PA Unavailable Unavailable Verbeck Jr, [place] Dennis PA Unavailable Unavailable Verbeck Jr, [place] Dennis PA Unavailable Unavailable Verbeck Jr, Benny Dennis PA Unavailable Unavailable Verbeck Jr, [place] Dennis PA Unavailable Unavailable Verbeck Jr, [place] Dennis PA Unavailable Unavailable Verbeck Jr, Benny Dennis PA Unavailable Unavailable Verbeck Jr, [place] Dennis PA Unavailable Unavailable Verbeck Jr, [place] Dennis PA Unavailable Unavailable Verbeck Jr, [place] Dennis PA Unavailable Unavailable Flaquito, L Tanya PA Unavailable Unavailable Flaquito, L Tanya PA Unavailable Unavailable Flaquito, L Tanya PA Unavailable Unavailable Flaquito, L Tanya PA Unavailable Unavailable Flaquito, L Tanya PA Unavailable Unavailable Flaquito, L Tanya PA Unavailable Unavailable Flaquito, L Tanya PA Unavailable Unavailable Flaquito, L Tanya PA Unavailable Unavailable Flaquito, L Tanya PA Unavailable Unavailable Flaquito, L Tanya PA Unavailable Unavailable Flaquito, L Tanya PA Unavailable Unavailable Flaquito, L Tanya PA Unavailable Unavailable Flaquito, L Tanya PA Unavailable Unavailable Flaquito, L Tanya PA Unavailable Unavailable Flaquito, L Tanya PA Unavailable Unavailable Flaquito, L Tanya PA Unavailable Unavailable Flaquito, L Tanya PA Unavailable Unavailable Flaquito, L Tanya PA Unavailable Unavailable Flaquito, L Tanya PA Unavailable Unavailable Flaquito, L Tanya PA Unavailable Unavailable Flaquito, L Tanya PA Unavailable Unavailable Flaquito, L Tanya PA Unavailable Unavailable Flaquito, L Tanya PA Unavailable Unavailable Arnie, D Roshni PA Unavailable Unavailable Arnie, D Roshni PA Unavailable Unavailable Arnie, D Roshni PA Unavailable Unavailable Arnie, D Roshni PA Unavailable Unavailable Arnie, D Roshni PA Unavailable Unavailable Arnie, D Roshni PA Unavailable Unavailable Arnie, D Roshni PA Unavailable Unavailable Arnie, D Roshni PA Unavailable Unavailable Arnie, D Roshni PA Unavailable Unavailable Arnie, D Roshni PA Unavailable Unavailable Arnie, D Roshni PA Unavailable Unavailable Arnie, D Roshni PA Unavailable Unavailable Arnie, D Roshni PA Unavailable Unavailable Arnie, D Roshni PA Unavailable Unavailable Arnie, D Roshni PA Unavailable Unavailable Arnie, D Roshni PA Unavailable Unavailable Arnie, D Roshni PA Unavailable Unavailable Arnie, D Roshni PA Unavailable Unavailable Arnie, D Roshni PA Unavailable Unavailable Arnie, D Roshni PA Unavailable Unavailable Arnie, D Roshni PA Unavailable Unavailable Arnie, D Roshni PA Unavailable Unavailable Arnie, D Roshni PA Unavailable Unavailable Arnie, D Roshni PA Unavailable Unavailable Arnie, D Roshni PA Unavailable Unavailable Arnie, D Roshni PA Unavailable Unavailable Arnie, D Roshni PA Unavailable Unavailable Arnie, D Roshni PA Unavailable Unavailable Arnie, D Roshni PA Unavailable Unavailable Arnie, D Roshni PA Unavailable Unavailable Arnie, D Roshni PA Unavailable Unavailable Arnie, D Roshni PA Unavailable Unavailable Arnie, D Roshni PA Unavailable Unavailable Arnie, D Roshni PA Unavailable Unavailable Arnie, D Roshni PA Unavailable Unavailable Arnie, D Roshni PA Unavailable Unavailable Arnie, D Roshni PA Unavailable Unavailable Arnie, D Roshni PA Unavailable Unavailable Arnie, D Roshni PA Unavailable Unavailable Arnie, D Roshni PA Unavailable Unavailable Arnie, D Roshni PA Unavailable Unavailable Arnie, D Roshni PA Unavailable Unavailable Arnie, D Roshni PA Unavailable Unavailable Arnie, D Roshni PA Unavailable Unavailable Arnie, D Roshni PA Unavailable Unavailable Arnie, D Roshni PA Unavailable Unavailable Arnie, D Roshni PA Unavailable Unavailable Arnie, D Roshni PA Unavailable Unavailable Arnie, D Roshni PA Unavailable Unavailable Arnie, D Roshni PA Unavailable Unavailable Arnie, D Roshni PA Unavailable Unavailable Arnie, D Roshni PA Unavailable Unavailable Arnie, D Roshni PA Unavailable Unavailable Arnie, D Roshni PA Unavailable Unavailable Arnie, D Roshni PA Unavailable Unavailable Arnie, D Roshni PA Unavailable Unavailable Arnie, D Roshni PA Unavailable Unavailable Arnie, D Roshni PA Unavailable Unavailable Arnie, D Roshni PA Unavailable Unavailable Arnie, D Roshni PA Unavailable Unavailable Arnie, D Roshni PA Unavailable Unavailable Arnie, D Roshni PA Unavailable Unavailable Arnie, D Roshni PA Unavailable Unavailable Platt, L Pushpa RPA Unavailable Unavailable Platt, L Pushpa RPA Unavailable Unavailable Platt, L Pushpa RPA Unavailable Unavailable Platt, L Pushpa RPA Unavailable Unavailable Platt, L Pushpa RPA Unavailable Unavailable Platt, L Pushpa RPA Unavailable Unavailable Platt, L Pushpa RPA Unavailable Unavailable Platt, L Pushpa RPA Unavailable Unavailable Platt, L Pushpa RPA Unavailable Unavailable Platt, L Pushpa RPA Unavailable Unavailable Platt, L Pushpa RPA Unavailable Unavailable Platt, L Pushpa RPA Unavailable Unavailable Platt, L Pushpa RPA Unavailable Unavailable Platt, L Pushpa RPA Unavailable Unavailable Platt, L Pushpa RPA Unavailable Unavailable Platt, L Pushpa RPA Unavailable Unavailable Platt, L Pushpa RPA Unavailable Unavailable Platt, L Pushpa RPA Unavailable Unavailable Platt, L Pushpa RPA Unavailable Unavailable Platt, L Pushpa RPA Unavailable Unavailable Platt, L Pushpa RPA Unavailable Unavailable Platt, L Pushpa RPA Unavailable Unavailable Platt, L Pushpa RPA Unavailable Unavailable Platt, L Pushpa RPA Unavailable Unavailable Platt, L Pushpa RPA Unavailable Unavailable Platt, L Pushpa RPA Unavailable Unavailable Platt, L Pushpa RPA Unavailable Unavailable Platt, L Pushpa RPA Unavailable Unavailable Platt, L Pushpa RPA Unavailable Unavailable Platt, L Pushpa RPA Unavailable Unavailable Platt, L Pushpa RPA Unavailable Unavailable Platt, L Pushpa RPA Unavailable Unavailable FORNI, R CARLA DPM Unavailable Unavailable FORNI, R CARLA DPM Unavailable Unavailable FORNI, R CARLA DPM Unavailable Unavailable FORNI, R CARLA DPM Unavailable Unavailable FORNI, R CARLA DPM Unavailable Unavailable FORNI, R CARLA DPM Unavailable Unavailable FORNI, R CARLA DPM Unavailable Unavailable BALWINDER, L MANE PA Unavailable Unavailable BALWINDER, L MANE PA Unavailable Unavailable BALWINDER, L MANE PA Unavailable Unavailable BALWINDER, L MANE PA Unavailable Unavailable BALWINDER, L MANE PA Unavailable Unavailable BALWINDER, L MANE PA Unavailable Unavailable BALWINDER, L MANE PA Unavailable Unavailable BALWINDER, L MANE PA Unavailable Unavailable BALWINDER, L MANE PA Unavailable Unavailable BALWINDER, L MANE PA Unavailable Unavailable BALWINDER, L MANE PA Unavailable Unavailable BALWINDER, L MANE PA Unavailable Unavailable Plata, M Chan MD Unavailable Unavailable Plata, M Chan MD Unavailable Unavailable Plata, M Chan MD Unavailable Unavailable Plata, M Chan MD Unavailable Unavailable Plata, M Chan MD Unavailable Unavailable Plata, M Chan MD Unavailable Unavailable Plata, M Chan MD Unavailable Unavailable Plata, M Chan MD Unavailable Unavailable Plata, M Chan MD Unavailable Unavailable Plata, M Chan MD Unavailable Unavailable Plata, M Chan MD Unavailable Unavailable Plata, M Chan MD Unavailable Unavailable Plata, M Chan MD Unavailable Unavailable Plata, M Chan MD Unavailable Unavailable Plata, M Chan MD Unavailable Unavailable Plata, M Chan MD Unavailable Unavailable Plata, M Chan MD Unavailable Unavailable Plata, M Chan MD Unavailable Unavailable Plata, M Chan MD Unavailable Unavailable Plata, M Chan MD Unavailable Unavailable Plata, M Chan MD Unavailable Unavailable Plata, M Chan MD Unavailable Unavailable Plata, M Chan MD Unavailable Unavailable Plata, M Chan MD Unavailable Unavailable Plata, M Chan MD Unavailable Unavailable Plata, M Chan MD Unavailable Unavailable Plata, M Chan MD Unavailable Unavailable Plata, M Chan MD Unavailable Unavailable Plata, M Chan MD Unavailable Unavailable Plata, M Chan MD Unavailable Unavailable Plata, M Chan MD Unavailable Unavailable Plata, M Chan MD Unavailable Unavailable Plata, M Chan MD Unavailable Unavailable Plata, M Chan MD Unavailable Unavailable Plata, M Chan MD Unavailable Unavailable Plata, M Chan MD Unavailable Unavailable Plata, M Chan MD Unavailable Unavailable Plata, M Chan MD Unavailable Unavailable Plata, M Chan MD Unavailable Unavailable Plata, M Chan MD Unavailable Unavailable Plata, M Chan MD Unavailable Unavailable Plata, M Chan MD Unavailable Unavailable Plata, M Chan MD Unavailable Unavailable Plata, M Chan MD Unavailable Unavailable Plata, M Chan MD Unavailable Unavailable Plata, M Chan MD Unavailable Unavailable Plata, M Chan MD Unavailable Unavailable Plata, M Chan MD Unavailable Unavailable PlataLisa MD Unavailable Unavailable Lisa Plata MD Unavailable Unavailable Lisa Plata MD Unavailable Unavailable Lisa Plata MD Unavailable Unavailable Lisa Plata MD Unavailable Unavailable Lisa Plata MD Unavailable Unavailable Lisa Plata MD Unavailable Unavailable Lisa Plata MD Unavailable Unavailable Lisa Plata MD Unavailable Unavailable Lisa Plata MD Unavailable Unavailable Lisa Plata MD Unavailable Unavailable Lisa Plata MD Unavailable Unavailable Lisa Plata MD Unavailable Unavailable Lisa Plata MD Unavailable Unavailable Barraclough, Nighat PA Unavailable Unavailable Barraclough, Nighat PA Unavailable Unavailable Barraclough, Nighat PA Unavailable Unavailable Barraclough, Nighat PA Unavailable Unavailable Barraclough, Nighat PA Unavailable Unavailable Barraclough, Nighat PA Unavailable Unavailable Daniel RIBEIRO MD Unavailable Unavailable Daniel RIBEIRO MD Unavailable Unavailable Daniel RIBEIRO MD Unavailable Unavailable Daniel RIBEIRO MD Unavailable Unavailable Daniel RIBEIRO MD Unavailable Unavailable Daniel RIBEIRO MD Unavailable Unavailable Daniel RIBEIRO MD Unavailable Unavailable Daniel RIBEIRO MD Unavailable Unavailable Daniel RIBEIRO MD Unavailable Unavailable Daniel RIBEIRO MD Unavailable Unavailable Daniel RIBEIRO MD Unavailable Unavailable Daniel RIBEIRO MD Unavailable Unavailable Daniel RIBEIRO MD Unavailable Unavailable Daniel RIBEIRO MD Unavailable Unavailable Daniel RIBEIRO MD Unavailable Unavailable Daniel RIBEIRO MD Unavailable Unavailable Daniel RIBEIRO MD Unavailable Unavailable Daniel RIBEIRO MD Unavailable Unavailable Daniel RIBEIRO MD Unavailable Unavailable Daniel RIBEIRO MD Unavailable Unavailable Daniel RIBEIRO MD Unavailable Unavailable Daniel RIBEIRO MD Unavailable Unavailable Daniel RIBEIRO MD Unavailable Unavailable Daniel RIBEIRO MD Unavailable Unavailable Daniel RIBEIRO MD Unavailable Unavailable Daniel RIBEIRO MD Unavailable Unavailable Daniel RIBEIRO MD Unavailable Unavailable Daniel RIBEIRO MD Unavailable Unavailable Daniel RIBEIRO MD Unavailable Unavailable Daniel RIBEIRO MD Unavailable Unavailable Daniel RIBEIRO MD Unavailable Unavailable Daniel RIBEIRO MD Unavailable Unavailable Daniel RIBEIRO MD Unavailable Unavailable Daniel RIBEIRO MD Unavailable Unavailable NICHOLASOHDaniel Triana MD Unavailable Unavailable Daniel RIBEIRO MD Unavailable Unavailable Daniel RIBEIRO MD Unavailable Unavailable Daniel RIBEIRO MD Unavailable Unavailable Daniel RIBEIRO MD Unavailable Unavailable Daniel RIBEIRO MD Unavailable Unavailable Daniel RIBEIRO MD Unavailable Unavailable Daniel RIBEIRO MD Unavailable Unavailable Daniel RIBEIRO MD Unavailable Unavailable Daniel RIBEIRO MD Unavailable Unavailable NICHOLASOHDaniel Triana MD Unavailable Unavailable Daniel RIBEIRO MD Unavailable Unavailable Daniel RIBEIRO MD Unavailable Unavailable Daniel RIBEIRO MD Unavailable Unavailable ALIASES , DEFAULT / GENERIC / UNKNOWN PROVIDER * Unavailable Unavailable ALIASES , DEFAULT / GENERIC / UNKNOWN PROVIDER * Unavailable Unavailable ALIASES , DEFAULT / GENERIC / UNKNOWN PROVIDER * Unavailable Unavailable ALIASES , DEFAULT / GENERIC / UNKNOWN PROVIDER * Unavailable Unavailable ALIASES , DEFAULT / GENERIC / UNKNOWN PROVIDER * Unavailable Unavailable ALIASES , DEFAULT / GENERIC / UNKNOWN PROVIDER * Unavailable Unavailable ALIASES , DEFAULT / GENERIC / UNKNOWN PROVIDER * Unavailable Unavailable ALIASES , DEFAULT / GENERIC / UNKNOWN PROVIDER * Unavailable Unavailable ALIASES , DEFAULT / GENERIC / UNKNOWN PROVIDER * Unavailable Unavailable ALIASES , DEFAULT / GENERIC / UNKNOWN PROVIDER * Unavailable Unavailable ALIASES , DEFAULT / GENERIC / UNKNOWN PROVIDER * Unavailable Unavailable ALIASES , DEFAULT / GENERIC / UNKNOWN PROVIDER * Unavailable Unavailable ALIASES , DEFAULT / GENERIC / UNKNOWN PROVIDER * Unavailable Unavailable ALIASES , DEFAULT / GENERIC / UNKNOWN PROVIDER * Unavailable Unavailable ALIASES , DEFAULT / GENERIC / UNKNOWN PROVIDER * Unavailable Unavailable ALIASES , DEFAULT / GENERIC / UNKNOWN PROVIDER * Unavailable Unavailable ALIASES , DEFAULT / GENERIC / UNKNOWN PROVIDER * Unavailable Unavailable ALIASES , DEFAULT / GENERIC / UNKNOWN PROVIDER * Unavailable Unavailable ALIASES , DEFAULT / GENERIC / UNKNOWN PROVIDER * Unavailable Unavailable ALIASES , DEFAULT / GENERIC / UNKNOWN PROVIDER * Unavailable Unavailable ALIASES , DEFAULT / GENERIC / UNKNOWN PROVIDER * Unavailable Unavailable ALIASES , DEFAULT / GENERIC / UNKNOWN PROVIDER * Unavailable Unavailable ALIASES , DEFAULT / GENERIC / UNKNOWN PROVIDER * Unavailable Unavailable ALIASES , DEFAULT / GENERIC / UNKNOWN PROVIDER * Unavailable Unavailable ALIASES , DEFAULT / GENERIC / UNKNOWN PROVIDER * Unavailable Unavailable ALIASES , DEFAULT / GENERIC / UNKNOWN PROVIDER * Unavailable Unavailable ALIASES , DEFAULT / GENERIC / UNKNOWN PROVIDER * Unavailable Unavailable ALIASES , DEFAULT / GENERIC / UNKNOWN PROVIDER * Unavailable Unavailable ALIASES , DEFAULT / GENERIC / UNKNOWN PROVIDER * Unavailable Unavailable ALIASES , DEFAULT / GENERIC / UNKNOWN PROVIDER * Unavailable Unavailable ALIASES , DEFAULT / GENERIC / UNKNOWN PROVIDER * Unavailable Unavailable ALIASES , DEFAULT / GENERIC / UNKNOWN PROVIDER * Unavailable Unavailable ALIASES , DEFAULT / GENERIC / UNKNOWN PROVIDER * Unavailable Unavailable ALIASES , DEFAULT / GENERIC / UNKNOWN PROVIDER * Unavailable Unavailable ALIASES , DEFAULT / GENERIC / UNKNOWN PROVIDER * Unavailable Unavailable ALIASES , DEFAULT / GENERIC / UNKNOWN PROVIDER * Unavailable Unavailable ALIASES , DEFAULT / GENERIC / UNKNOWN PROVIDER * Unavailable Unavailable ALIASES , DEFAULT / GENERIC / UNKNOWN PROVIDER * Unavailable Unavailable ALIASES , DEFAULT / GENERIC / UNKNOWN PROVIDER * Unavailable Unavailable ALIASES , DEFAULT / GENERIC / UNKNOWN PROVIDER * Unavailable Unavailable ALIASES , DEFAULT / GENERIC / UNKNOWN PROVIDER * Unavailable Unavailable ALIASES , DEFAULT / GENERIC / UNKNOWN PROVIDER * Unavailable Unavailable ALIASES , DEFAULT / GENERIC / UNKNOWN PROVIDER * Unavailable Unavailable ALIASES , DEFAULT / GENERIC / UNKNOWN PROVIDER * Unavailable Unavailable ALIASES , DEFAULT / GENERIC / UNKNOWN PROVIDER * Unavailable Unavailable ALIASES , DEFAULT / GENERIC / UNKNOWN PROVIDER * Unavailable Unavailable ALIASES , DEFAULT / GENERIC / UNKNOWN PROVIDER * Unavailable Unavailable ALIASES , DEFAULT / GENERIC / UNKNOWN PROVIDER * Unavailable Unavailable ALIASES , DEFAULT / GENERIC / UNKNOWN PROVIDER * Unavailable Unavailable ALIASES , DEFAULT / GENERIC / UNKNOWN PROVIDER * Unavailable Unavailable ALIASES , DEFAULT / GENERIC / UNKNOWN PROVIDER * Unavailable Unavailable ALIASES , DEFAULT / GENERIC / UNKNOWN PROVIDER * Unavailable Unavailable ALIASES , DEFAULT / GENERIC / UNKNOWN PROVIDER * Unavailable Unavailable Daniel GOULD MD Unavailable Unavailable Daniel GOULD MD Unavailable Unavailable Daniel GOULD MD Unavailable Unavailable Daniel GOULD MD Unavailable Unavailable Daniel GOULD MD Unavailable Unavailable Daniel GOULD MD Unavailable Unavailable Daniel GOULD MD Unavailable Unavailable Daniel GOULD MD Unavailable Unavailable Daniel GOULD MD Unavailable Unavailable Daniel GUOLD MD Unavailable Unavailable Daniel GOULD MD Unavailable Unavailable Daniel GOULD MD Unavailable Unavailable Daniel GOULD MD Unavailable Unavailable Daniel GOULD MD Unavailable Unavailable Daniel GOULD MD Unavailable Unavailable Daniel GOULD MD Unavailable Unavailable Daniel GOULD MD Unavailable Unavailable Daniel GOULD MD Unavailable Unavailable Daniel GOULD MD Unavailable Unavailable Daniel GOULD MD Unavailable Unavailable Daniel GOULD MD Unavailable Unavailable Daniel GOULD MD Unavailable Unavailable Daniel GOULD MD Unavailable Unavailable Daniel GOULD MD Unavailable Unavailable Daniel GOULD MD Unavailable Unavailable Daniel GOULD MD Unavailable Unavailable Daniel GOULD MD Unavailable Unavailable Daniel GOULD MD Unavailable Unavailable Daniel GOULD MD Unavailable Unavailable Daniel GOULD MD Unavailable Unavailable Daniel GOULD MD Unavailable Unavailable Daniel GOULD MD Unavailable Unavailable Daniel GOULD MD Unavailable Unavailable Daniel GOULD MD Unavailable Unavailable Daniel GOULD MD Unavailable Unavailable Daniel GOULD MD Unavailable Unavailable Daniel GOULD MD Unavailable Unavailable Daniel GOULD MD Unavailable Unavailable Daniel GOULD MD Unavailable Unavailable Daniel GOULD MD Unavailable Unavailable Daniel GOULD MD Unavailable Unavailable Daniel GOULD MD Unavailable Unavailable Daniel GOULD MD Unavailable Unavailable Daniel GOULD MD Unavailable Unavailable Daniel GOULD MD Unavailable Unavailable Daniel GOULD MD Unavailable Unavailable Daniel GOULD MD Unavailable Unavailable Daniel GOULD MD Unavailable Unavailable Daniel GOULD MD Unavailable Unavailable Daniel GOULD MD Unavailable Unavailable Daniel GOULD MD Unavailable Unavailable Daniel GOULD MD Unavailable Unavailable Daniel GOULD MD Unavailable Unavailable Daniel GOULD MD Unavailable Unavailable Daniel GOULD MD Unavailable Unavailable Daniel GOULD MD Unavailable Unavailable Daniel GOULD MD Unavailable Unavailable Daniel GOULD MD Unavailable Unavailable Daniel GOULD MD Unavailable Unavailable Daniel GOULD MD Unavailable Unavailable Daniel GOULD MD Unavailable Unavailable Daniel GOULD MD Unavailable Unavailable Daniel GOULD MD Unavailable Unavailable Daniel GOULD MD Unavailable Unavailable Daniel GOULD MD Unavailable Unavailable Daniel GOULD MD Unavailable Unavailable Monique Gaitan Unavailable Unavailable Monique Gaitan Unavailable Unavailable Arnie, D Roshni PA Unavailable Unavailable Arnie, D Roshni PA Unavailable Unavailable Arnie, D Roshni PA Unavailable Unavailable Arnie, D Roshni PA Unavailable Unavailable Arnie, D Roshni PA Unavailable Unavailable Arnie, D Roshni PA Unavailable Unavailable Arnie, D Roshni PA Unavailable Unavailable Arnie, D Roshni PA Unavailable Unavailable Arnie, D Roshni PA Unavailable Unavailable Arnie, D Roshni PA Unavailable Unavailable Arnie, D Roshni PA Unavailable Unavailable Arnie, D Roshni PA Unavailable Unavailable Arnie, D Roshni PA Unavailable Unavailable Arnie, D Roshni PA Unavailable Unavailable Arnie, D Roshni PA Unavailable Unavailable Arnie, D Roshni PA Unavailable Unavailable Arnie, D Roshni PA Unavailable Unavailable Arnie, D Roshni PA Unavailable Unavailable Arnie, D Roshni PA Unavailable Unavailable Arnie, D Roshni PA Unavailable Unavailable Arnie, D Roshni PA Unavailable Unavailable Arnie, D Roshni PA Unavailable Unavailable Arnie, D Roshni PA Unavailable Unavailable Arnie, D Roshni PA Unavailable Unavailable Arnie, D Roshni PA Unavailable Unavailable Arnie, D Roshni PA Unavailable Unavailable Arnie, D Roshni PA Unavailable Unavailable Arnie, D Roshni PA Unavailable Unavailable Arnie, D Roshni PA Unavailable Unavailable Arnie, D Roshni PA Unavailable Unavailable Arnie, D Roshni PA Unavailable Unavailable Arnie, D Roshni PA Unavailable Unavailable Arnie, D Roshni PA Unavailable Unavailable Arnie, D Roshni PA Unavailable Unavailable Arnie, D Roshni PA Unavailable Unavailable Arnie, D Roshni PA Unavailable Unavailable Arnie, D Roshni PA Unavailable Unavailable Arnie, D Roshni PA Unavailable Unavailable Arnie, D Roshni PA Unavailable Unavailable Arnie, D Roshni PA Unavailable Unavailable Arnie, D Roshni PA Unavailable Unavailable Arnie, D Roshni PA Unavailable Unavailable Arnie, D Roshni PA Unavailable Unavailable Arnie, D Roshni PA Unavailable Unavailable Arnie, D Roshni PA Unavailable Unavailable Arnie, D Roshni PA Unavailable Unavailable Arnie, D Roshni PA Unavailable Unavailable Arnie, D Roshni PA Unavailable Unavailable Arnie, D Roshni PA Unavailable Unavailable Arnie, D Roshni PA Unavailable Unavailable Arnie, D Roshni PA Unavailable Unavailable Arnie, D Roshni PA Unavailable Unavailable Arnie, D Roshni PA Unavailable Unavailable Arnie, D Roshni PA Unavailable Unavailable Arnie, D Roshni PA Unavailable Unavailable Arnie, D Roshni PA Unavailable Unavailable Arnie, D Roshni PA Unavailable Unavailable ArnieMonique lizarraga PA Unavailable Unavailable ArnieMonique lizarraga PA Unavailable Unavailable ArnieMonique PA Unavailable Unavailable ArnieMonique Roshni PA Unavailable Unavailable CARTAGENA, TONG MD Unavailable Unavailable CARTAGENA, TONG MD Unavailable Unavailable CARTAGENA, TONG MD Unavailable Unavailable CARTAGENA, TONG MD Unavailable Unavailable CARTAGENA, TONG MD Unavailable Unavailable CARTAGENA, TONG MD Unavailable Unavailable CARTAGENA, TONG MD Unavailable Unavailable CARTAGENA, TONG MD Unavailable Unavailable CARTAGENA, TONG MD Unavailable Unavailable CARTAGENA, TONG MD Unavailable Unavailable CARTAGENA, TONG MD Unavailable Unavailable CARTAGENA, TONG MD Unavailable Unavailable CARTAGENA, TONG MD Unavailable Unavailable CARTAGENA, TONG MD Unavailable Unavailable CARTAGENA, TONG MD Unavailable Unavailable CARTAGENA, TONG MD Unavailable Unavailable CARTAGENA, TONG MD Unavailable Unavailable CARTAGENA, TONG MD Unavailable Unavailable CARTAGENA, TONG MD Unavailable Unavailable CARTAGENA, TONG MD Unavailable Unavailable CARTAGENA, TONG MD Unavailable Unavailable CARTAGENA, TONG MD Unavailable Unavailable CARTAGENA, TONG MD Unavailable Unavailable CARTAGENA, TONG MD Unavailable Unavailable CARTAGENA, TONG MD Unavailable Unavailable CARTAGENA, TONG MD Unavailable Unavailable CARTAGENA, TONG MD Unavailable Unavailable CARTAGENA, TONG MD Unavailable Unavailable CARTAGENA, TONG MD Unavailable Unavailable CARTAGENA, TONG MD Unavailable Unavailable CARTAGENA, TONG MD Unavailable Unavailable CARTAGENA, TONG MD Unavailable Unavailable CARTAGENA, TONG MD Unavailable Unavailable CARTAGENA, TONG MD Unavailable Unavailable CARTAGENA, TONG MD Unavailable Unavailable CARTAGENA, TONG MD Unavailable Unavailable CARTAGENA, TONG MD Unavailable Unavailable CARTAGENA, TONG MD Unavailable Unavailable CARTAGENA, TONG MD Unavailable Unavailable CARTAGENA, TONG MD Unavailable Unavailable CARTAGENA, TONG MD Unavailable Unavailable CARTAGENA, TONG MD Unavailable Unavailable CARTAGENA, TONG MD Unavailable Unavailable CARTAGENA, TONG MD Unavailable Unavailable CARTAGENA, TONG MD Unavailable Unavailable CARTAGENA, TONG MD Unavailable Unavailable CARTAGENA, TONG MD Unavailable Unavailable CARTAGENA, TONG MD Unavailable Unavailable CARTAGENA, TONG MD Unavailable Unavailable CARTAGENA, TONG MD Unavailable Unavailable CARTAGENA, TONG MD Unavailable Unavailable CARTAGENA, TONG MD Unavailable Unavailable CARTAGENA, TONG MD Unavailable Unavailable CARTAGENA, TONG MD Unavailable Unavailable CARTAGENA, TONG MD Unavailable Unavailable CARTAGENA, TONG MD Unavailable Unavailable CARTAGENA, TONG MD Unavailable Unavailable CARTAGENA, TONG MD Unavailable Unavailable CARTAGENA, TNOG MD Unavailable Unavailable CARTAGENA, TONG MD Unavailable Unavailable CARTAGENA, TONG MD Unavailable Unavailable CARTAGENA, TONG MD Unavailable Unavailable CARTAGENA, TONG MD Unavailable Unavailable CARTAGENA, TONG MD Unavailable Unavailable CARTAGENA, TONG MD Unavailable Unavailable CARTAGENA, TONG MD Unavailable Unavailable CARTAGENA, TONG MD Unavailable Unavailable CARTAGENA, TONG MD Unavailable Unavailable CARTAGENA, TONG MD Unavailable Unavailable SYSTEM IN, NOT IN PROVIDER Unavailable Unavailable FORNI, R CARLA DPM Unavailable Unavailable FORNI, R CARLA DPM Unavailable Unavailable FORNI, R CARLA DPM Unavailable Unavailable FORNI, R CARLA DPM Unavailable Unavailable FORNI, R CARLA DPM Unavailable Unavailable FORNI, R CARLA DPM Unavailable Unavailable FORNI, R CARLA DPM Unavailable Unavailable Re-disclosure Warning The records that you are about to access may contain information from federally-assisted alcohol or drug abuse programs. If such information is present, then the following federally mandated warning applies: This information has been disclosed to you from records protected by federal confidentiality rules (42 CFR part 2). The federal rules prohibit you from making any further disclosure of this information unless further disclosure is expressly permitted by the written consent of the person to whom it pertains or as otherwise permitted by 42 CFR part 2. A general authorization for the release of medical or other information is NOT sufficient for this purpose. The Federal rules restrict any use of the information to criminally investigate or prosecute any alcohol or drug abuse patient.The records that you are about to access may contain highly sensitive health information, the redisclosure of which is protected by Article 27-F of the [facility] Public Health law. If you continue you may have access to information: Regarding HIV / AIDS; Provided by facilities licensed or operated by the [facility] Office of Mental Health; or Provided by the [facility] Office for People With Developmental Disabilities. If such information is present, then the following [facility] mandated warning applies: This information has been disclosed to you from confidential records which are protected by state law. State law prohibits you from making any further disclosure of this information without the specific written consent of the person to whom it pertains, or as otherwise permitted by law. Any unauthorized further disclosure in violation of state law may result in a fine or fci sentence or both. A general authorization for the release of medical or other information is NOT sufficient authorization for further disc losure. Allergies and Adverse Reactions Type Description Substance Reaction Status Data Source(s ) Drug Class IODINATED DIAGNOSTIC AGENTS IODINATED DIAGNOSTIC AGENTS [facility] Family History Family Member Name Family Member Gender Family Member Status Date o f Status Description Data Source(s) Unknown Unknown Problem [facility] ([facility]) Unknown Unknown Problem [facility] ([facility] father Unknown Female Problem MED[facility] ([facility]) Unknown Female Problem [facility] ([facility] Unknown Female Problem [facility] ([facility] Encounters Encounter Providers Location Date Indications Data Source(s ) Outpatient Attender: CARLA BORJAMConsultant: TONG Triana MD 05/08/2020 01:58:00 PM EST - 05/08/2020 01:58:00 PM EST [facility] Outpatient Attender: CARLA HUMPHRIES DPM [facility] 05/08/2020 0 1:00:00 PM EST MED[facility] ([facility]) Outpatient Attender: MANE CARRILLO Main Office 05/01/2020 0 1:30:00 PM EST [facility] ([facility]) Outpatient Attender: Roshni CARRILLO [place] Office 10/2020 02:00:00 PM EST MED[facility] ([facility] Outpatient Attender: Barb Silveira/Melisa/Darryl/ Reinfredo 01/01/2020 01:00:00 PM EDT [facility] ([facility] Outpatient Attender: Roshni CARRILLO [place] [facility] 04/2019 02:40:00 PM EDT [facility] ([facility] Outpatient Attender: Barb Silveira/Melisa/Darryl/ Reinfredo 11/06/2019 03:30:00 PM EDT [facility] ([facility] Outpatient Attender: TONG CARTAGENA MDConsultant: TONG Triana MD 10/30/2019 08:30:00 PM EDT - 10/30/2019 08:40:00 PM EDT [facility] Inpatient Attender: DEFAULT / GENE GURWINDER / UNKNOWN PROVIDER ALIASES Attender: Mickey Plata MDAttender: ANAND BONE MDAdmitter: Mickey Plata MDReferrer: PROVIDER SYSTEM INConsultant: LATHA RIBEIRO MDConsultant: ROSHNI GOULD MD [id number] 10/19/2019 12:00:00 AM EDT - 10/26/2019 12:00:00 AM EDT 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 Outpatient Attender: Pushpa Silveira/[place]/Darryl/R eindl 10/09/2019 10:30:00 AM EDT [facility] ([facility] Outpatient Attender: Tanya CARRILLO Main Office 09/22/2019 11:30:0 0 AM EDT MED[facility] ([facility]) Outpatient Attender: Roshni CARRILLO [place] [facility] 08/2019 09:45:00 AM EDT [facility] ([facility] Outpatient Attender: Roshni CARRILLO [place] [facility] 03/2019 02:20:00 PM EDT [facility] ([facility] Outpatient Attender: [place]hat [place] 09/07/2019 01:15:00 PM EDT [facility] ([facility] Outpatient Attender: Barb Silveira/Melisa/Darryl/ Reindl 08/28/2019 01:45:00 PM EDT [facility] ([facility] Outpatient Attender: Roshni CARRILLO [place] [facility] 03/2019 01:30:00 PM EDT [facility] ([facility] Outpatient Attender: Pushpa Gabrielang/[place]/Darryl/R eindl 08/09/2019 11:00:00 AM EDT [facility] ([facility] Outpatient Attender: Barb Silveira/Melisa/Darryl/ Reindl 07/17/2019 03:30:00 PM EDT MEDENT ([facility]) Outpatient Attender: Pushpa Silveira/Melisa/Darryl/R eindl 07/05/2019 11:45:00 AM EDT MEDENT ([facility]) Outpatient Referrer: Roshni CARRILLO 06/16/2019 03:45:00 PM EDT [facility] Outpatient Referrer: Roshni CARRILLO 06/16/2019 03:44:00 PM EDT [facility] Outpatient Attender: Roshni CARRILLO [place] [facility] 05/2019 02:20:00 PM EDT MED[facility] ([facility] Outpatient Referrer: Roshni CARRILLO 06/05/2019 05:04:00 PM EDT [facility] Outpatient Referrer: Roshni CARRILLO 06/05/2019 05:03:00 PM EDT [facility] Outpatient Referrer: Roshni CARRILLO 06/05/2019 04:42:00 PM EDT [facility] Outpatient Attender: Roshni CARRILOL [place] Office 03:30:00 PM EDT MED[facility] ([facility] Outpatient Referrer: Dennis Bryson Jr 03/23/2019 01:40:00 PM EST [facility] Outpatient Attender: Tanya CARRILLO Main Office 03/22/2019 12:00:0 0 PM EST [facility] ([facility]) Outpatient Attender: Roshni CARRILLO [place] [facility] 05/2019 12:30:00 PM EST [facility] ([facility] Medications Medication Brand Name Start Date Product Form Dose Route Admi nistrative Instructions Pharmacy Instructions Status Indications Reaction Description Data Source(s) gabapentin 100 MG Oral Capsule Gabapentin 04/30/2020 12:00:00 AM EST ORAL active [facility] ([facility]) pantoprazole 40 MG Delayed Release Oral Tablet Pantoprazole Sodium 04/30/2020 12:00:00 AM EST ORAL active M EDENT ([facility]) valsartan 160 MG Oral Tablet Valsartan 04/30/2020 12:00:00 AM EST ORAL active [facility] ([facility]) 0.2 mg/24 hr 04/26/2020 12:00:00 AM EST patch weekly 4 APPLY ONE PATCH WEEKLY , REMOVE OLD PATCH BEFORE APPLYING NEW PATCH APPLY ONE PATCH WEEKLY , REMOVE OLD PATCH BEFORE APPLYING NEW PATCH SOLD: 04/28/2020 [facility] 0.3-0.05 % 04/04/2020 12:00:00 AM EST drops,suspension 5 INSTILL 1 DROP IN THE LEFT EYE FOUR TIMES A DAY DIRECTED INSTILL 1 DROP IN THE LEFT EYE FOUR TIMES A DAY DIRECTED SOLD: 04/05/2020 [facility] 0.2 mg/24 hr 03/24/2020 12:00:00 AM EST patch weekly 4 APPLY 1 PATCH ONCE EVERY WEDNESDAY APPLY 1 PATCH ONCE EVERY WEDNESDAY SOLD: 03/25/2020 [facility] BLOOD SUGAR DIAGNOSTIC 03/22/2020 12:00:00 AM EST strip 400 DIRECTED TO TEST BLOOD SUGAR FOUR TIMES A DAY DIRECTED TO TEST BLOOD SUGAR FOUR YANIRA ES A DAY SOLD: 03/22/2020 [facility] Onetouch Delica Plus Lancets Extra Fine 33G 03/22/2020 12:00 :00 AM EST active [facility] ([facility] Onetouch Verio 03/22/2020 12:00:00 AM EST act shey MED[facility] ([facility] 33 gauge 03/22/2020 12:00:00 AM EST misc 400 DIRECTED TO TEST FOUR TIMES A DAY DIRECTED TO TEST FOUR TIMES A DAY SOLD: 03/22/2020 [facility] montelukast 10 MG Oral Tablet Montelukast Sodium 03/22/2020 12:00:00 AM EST active [facility] ([facility] montelukast 10 MG Oral Tablet MONTELUKAST SODIUM 03/22/2020 12:0 0:00 AM EST tablet 30 TAKE ONE TABLET BY MOUTH AT BEDT KELLIE TAKE ONE TABLET BY MOUTH AT BEDTIME SOLD: 03/22/2020 [facility] 160 mg 03/13/2020 12:00:00 AM EST tablet 90 TAKE ONE TABLET BY MOUTH EVERY DAY TAKE ONE TABLET BY MOUTH EVERY DAY SOLD: 03/13/2020 [facility] 100 mg 02/26/2020 12:00:00 AM EST capsule 180 TAKE ONE CAPSULE BY MOUTH TWICE A DAY TAKE ONE CAPSULE BY MOUTH TWICE A DAY SOLD: 02/28/2020 [facility] 2.5 mg 02/15/2020 12:00:00 AM EST tablet 180 TAKE ONE TABLET BY MOUTH TWICE A DAY TAKE ONE TABLET BY MOUTH TWICE A DAY SOLD: 02/15/2020 [facility] 50 mg 02/10/2020 12:00:00 AM EST tablet 30 TAKE ONE TABLET BY MOUTH EVERY DAY TAKE ONE TABLET BY MOUTH EVERY DAY SOLD: 02/11/2020 [facility] 5 mg 02/10/2020 12:00:00 AM EST tablet 30 TAKE ONE TABLET BY MOUTH EVERY DAY TAKE ONE TABLET BY MOUTH EVERY DAY SOLD: 02/11/2020 [facility] 2.5 mg 01/15/2020 12:00:00 AM EST tablet 60 TAKE ONE TABLET BY MOUTH TWICE A DAY TAKE ONE TABLET BY MOUTH TWICE A DAY SOLD: 01/15/2020 [facility] 5 % 01/09/2020 12:00:00 AM EDT adhesive patch,medicate d 180 APPLY TWO PATCHES TOPICALLY TO THE SKIN DIRECTED, 12 HOURS ON AND THEN 12 HOURS OFF APPLY TWO PATCHES TOPICALLY TO THE SKIN DIRECTED, 12 HOURS ON AND THEN 12 HOURS OFF SOLD: 01/09/2020 [facility] 150 mg 12/31/2019 12:00:00 AM EDT capsule 40 TAKE ONE CAPSULE BY MOUTH FOUR TIMES A DAY FOR 10 DAYS TAKE ONE CAPSULE BY MOUTH FOUR TIMES A DAY FOR 10 DAYS SOLD: 12/31/2019 [facility] 0.2 mg/24 hr 12/27/2019 12:00:00 AM EDT patch weekly 4 APPLY 1 PATCH EVERY WEEK . REMOVE OLD PATCH PRIOR TO APPLYING NEW PATCH APPLY 1 PATCH EVERY WEEK . REMOVE OLD PATCH PRIOR TO APPLYING NEW PATCH SOLD: 01/22/2020 [facility] 0.2 mg/24 hr 12/27/2019 12:00:00 AM EDT patch weekly 4 APPLY 1 PATCH EVERY WEEK . REMOVE OLD PATCH PRIOR TO APPLYING NEW PATCH APPLY 1 PATCH EVERY WEEK . REMOVE OLD PATCH PRIOR TO APPLYING NEW PATCH SOLD: 02/15/2020 [facility] 0.2 mg/24 hr 12/27/2019 12:00:00 AM EDT patch weekly 4 APPLY 1 PATCH EVERY WEEK . REMOVE OLD PATCH PRIOR TO APPLYING NEW PATCH APPLY 1 PATCH EVERY WEEK . REMOVE OLD PATCH PRIOR TO APPLYING NEW PATCH SOLD: 12/27/2019 [facility] 90 mcg/actuation 12/20/2019 12:00:00 AM EDT HFA aerosol inha ler 18 INHALE TWO PUFFS BY MOUTH EVERY 4 TO 6 HOURS NEEDED INHALE TWO PUFFS BY MOUTH EVERY 4 TO 6 HOURS NEEDED SOLD: 12/20/2019 [facility] 2.5 mg 12/14/2019 12:00:00 AM EDT tablet 60 TAKE ONE TABLET BY MOUTH TWICE A DAY FOR PREVENTION OF BLOOD CLOTS TAKE ONE TABLET BY MOUTH TWICE A DAY FOR PREVENTION OF BLOOD CLOTS SOLD: 12/14/2019 [facility] 88 mcg 12/07/2019 12:00:00 AM EDT tablet 90 TAKE ONE TABLET BY MOUTH EVERY DAY TAKE ONE TABLET BY MOUTH EVERY DAY SOLD: 12/08/2019 [facility] 100 mg 12/07/2019 12:00:00 AM EDT tablet 90 TAKE ONE TABLET BY MOUTH EVERY DAY WITH FOOD TAKE ONE TABLET BY MOUTH EVERY DAY WITH FOOD SOLD: 12/08/2019 [facility] 88 mcg 12/07/2019 12:00:00 AM EDT tablet 90 TAKE ONE TABLET BY MOUTH EVERY DAY TAKE ONE TABLET BY MOUTH EVERY DAY SOLD: 03/06/2020 [facility] 100 mg 12/07/2019 12:00:00 AM EDT tablet 90 TAKE ONE TABLET BY MOUTH EVERY DAY WITH FOOD TAKE ONE TABLET BY MOUTH EVERY DAY WITH FOOD SOLD: 03/06/2020 [facility] atorvastatin 40 MG Oral Tablet ATORVASTATIN CALCIUM 12/05/2019 1 2:00:00 AM EDT tablet 90 TAKE ONE TABLET BY MOUTH EVERY D AY TAKE ONE TABLET BY MOUTH EVERY DAY SOLD: 12/06/2019 [facility] atorvastatin 40 MG Oral Tablet ATORVASTATIN CALCIUM 12/05/2019 1 2:00:00 AM EDT tablet 90 TAKE ONE TABLET BY MOUTH EVERY D AY TAKE ONE TABLET BY MOUTH EVERY DAY SOLD: 04/05/2020 [facility] 100 mg 11/23/2019 12:00:00 AM EDT tablet 90 TAKE 1/2 TABLET BY MOUTH TWICE A DAY TAKE 1/2 TABLET BY MOUTH TWICE A DAY SOLD: 03/06/2020 [facility] 100 mg 11/23/2019 12:00:00 AM EDT tablet 90 TAKE 1/2 TABLET BY MOUTH TWICE A DAY TAKE 1/2 TABLET BY MOUTH TWICE A DAY SOLD: 11/24/2019 [facility] cefpodoxime 100 MG Oral Tablet cefpodoxime (VANTIN) ta blet 200 mg cefpodoxime (VANTIN) tablet 200 mg 10/25/2019 08:00:00 AM EDT 200 mg Oral completed 200 mg, Oral, Daily with Breakfast, Firs t dose on Wed10/25/19 at 0800, For 1 dose [facility] Medication administered onsite cefpodoxime 200 MG Oral Tablet Cefpodoxime Proxetil 20 0 MG Oral Tablet (VANTIN) Cefpodoxime Proxetil 200 MG Oral Tablet (VANTIN) 10/25/2019 12:00:00 AM EDT 200 mg Oral active Take 1 tab let by mouth 3 (three) times a week for 3 daysAfter HD on Th(10/25) S(815) T(10/30) [facility] Carboxymethylcellulose Sodium 5 MG/ML Op hthalmic Solution Carboxymethylcellulose Sod PF 0.5 % Ophthalmic Solution (REFRESH PLUS) Carboxymethylcellulose Sod PF 0.5 % Ophthalmic Solution (REFRESH PLUS) 10/25/2019 12:00:00 AM EDT 1 [drp] Both Eyes active Place 1 drop i nto both eyes Three times daily as needed [facility] sennosides, SENIOR CARE 8.6 MG Oral Tablet Senna 8.6 MG Oral T ablet Senna 8.6 MG Oral Tablet 10/25/2019 12:00:00 AM EDT 2 {tbl} Oral active Take 2 tablets by mouth nightly as needed [facility] Simethicone 80 MG Chewable Tablet Simeth icone 80 MG Oral Tablet Chewable (MYLICON) Simethicone 80 MG Oral Tablet Chewable (MYLICON) 10/24 12:00:00 AM EDT 80 mg Oral active Chew 1 t ablet by Mouth every 6 (six) hours as needed for Flatulence for up to 10 days [facility] Furosemide 40 MG Oral Tablet Furosemide 40 MG Oral Tab let (LASIX) Furosemide 40 MG Oral Tablet (LASIX) 10/25/2019 12:00:00 AM EDT 60 mg Oral active Take 1.5 tablets by mouth Two Times Daily [facility] Oxycodone Hydrochloride 5 MG Oral Tablet oxyCODONE HCl 5 MG Oral Tablet (ROXICODONE) oxyCODONE HCl 5 MG Oral Tablet (ROXICODONE) 10/25/2019 12:00:00 AM EDT 2.5 mg Oral active Take 0.5 tablets by mouth every 4 (four) hours as needed for up to 3 days, Max Daily Dose: 15 mg [facility] Tamsulosin hydrochloride 0.4 MG Oral Cap blair Tamsulosin HCl 0.4 MG Oral Capsule (FLOMAX) Tamsulosin HCl 0.4 MG Oral Capsule (FLOMAX) 10/25/2019 12:00 :00 AM EDT 0.4 mg Oral active Take 1 capsule b y mouth daily [facility] Acetaminophen 325 MG Oral Tablet Acetaminophen 325 MG Oral T ablet 10/25/2019 12:00:00 AM EDT 650 mg Oral active Take 2 tablets by mouth every 6 (six) hours as needed for up to 10 days [facility] apixaban 2.5 MG Oral Tablet Apixaban 2.5 MG Oral Table t (ELIQUIS) Apixaban 2.5 MG Oral Tablet (ELIQUIS) 10/25/2019 12:00:00 AM EDT 2.5 mg Oral active Take 1 tablet by mouth Two Times Daily [facility] oxyCODONE (ROXICODONE) immediate release tablet 2.5 mg 10/24/2019 11:55:26 AM EDT 2.5 mg Oral active [Order 1 Start] Name: oxyCODONE (ROXICODONE) immediate release tablet 2.5 mg Signed Summary: 2.5 mg, Oral, Every 4 hours PRN, Moderate Pain (Pain Scale Score 4-6), Starting Wed10/24/19 at 1155, For 68 hours
Oxycodone immediate release is limited to 10 mg per dose. Higher doses ([facility] only) require Pain Service consultation and approval.
[Order 1 End] [Order 2 Start] Name: oxyCODONE (ROXICODONE) immediate release tablet 5 mg Signed Summary: 5 mg, Oral, Every 4 hours PRN, Severe Pain (Pain Scale Score 7-10), breakthrough, Starting Wed10/24/19 at 1155, For 68 hours
Oxycodone immediate release is limited to 10 mg per dose. Higher doses ([facility] only) require Pain Service consultation and approval.
[Order 2 End] [facility] Medication administered onsite pantoprazole 40 MG Delayed Release Oral Tablet pantoprazole (PROTONIX) EC tablet 40 mg pantoprazole (PROTONIX) EC tablet 40 mg 10/24/2019 09:00:00 AM E DT 40 mg Oral active 40 mg, Ora l, Daily Standard, First dose on Wed10/24/19 at 0900, For 30 days
Do not crush or chew
[facility] Medication administered onsite Docusate Sodium 100 MG Oral Capsule docusate sodium (C OLACE) capsule 100 mg docusate sodium (COLACE) capsule 100 mg 10/24/2019 09:00:00 AM EDT 100 mg Oral active 100 mg, Oral, 2 Times Daily, First dose on Wed10/24/19 at 0900, For 30 days [facility] Medication administered onsite sennosides, SENIOR CARE 8.6 MG Oral Tablet senna tablet 2 tablet sen na tablet 2 tablet 10/24/2019 07:57:59 AM EDT 2 {tbl} Oral active 2 tablet, Oral, Nightly PRN, Constipation, Starting Wed10/24/19 at 0757, For 30 days [facility] Medication administered onsite Simethicone 80 MG Chewable Tablet simethicone (MYLICON ) chewable tablet 80 mg simethicone (MYLICON) chewable tablet 80 mg 10/24/2019 12:46:12 AM EDT 80 mg Oral active 80 mg, Oral, E very 6 hours PRN, Flatulence, Starting Wed10/24/19 at 0046, For 30 days [facility] Medication administered onsite Carboxymethylcellulose Sodium 5 MG/ML Op hthalmic Solution carboxymethylcellulose PF (REFRESH PLUS) 0.5 % ophthalmic solution 1 drop carboxymethylcellulose PF (REFRESH PLUS) 0.5 % ophthalmic solution 1 drop 10/23/2019 04:24:16 PM EDT 1 [drp] Both Eyes active 1 drop, Christiano th Eyes, Three Times Daily-PRN, Dry Eyes, Starting Wed10/23/19 at 1624, For 30 days [facility] Medication administered onsite 24 HR metoprolol succinate 50 MG Extende d Release Oral Tablet metoprolol (TOPROL-XL) 24 hr tablet 50 mg metoprolol (TOPROL-XL) 24 hr tablet 50 mg 10/23/2019 09:00:00 AM EDT 50 mg Oral active 50 mg, Oral, Daily Standard, First dose on 10/23/19 at 0900, For 30 days
Do not crush or chew
[facility] Medication administered onsite furosemide (LASIX) tablet 50 mg 10/22/2019 09:00:00 PM EDT 50 mg Oral active 50 mg, Oral, 2 Times Daily, First dose on 10/22/19 at 2100, For 30 days [facility] Medication administered onsite apixaban 5 MG Oral Tablet apixaban (ELIQUIS) tablet 2. 5 mg apixaban (ELIQUIS) tablet 2.5 mg 10/22/2019 09:00:00 PM EDT 2.5 mg Oral acti ve 2.5 mg, Oral, 2 Times Daily, First dose on 10/22/19 at 2100, For 30 days [facility] Medication administered onsite 168 HR Clonidine 0.51195 MG/HR Transderm al Patch cloNIDine (CATAPRES) 0.2 MG/24HR patch 1 patch cloNIDine (CATAPRES) 0.2 MG/24HR patch 1 patch 02:45:00 PM EDT 1 {patch} Transdermal active 1 patch, Transdermal, Administer over 7 Days, Weekly, First dose (after last modification) on 10/22/19 at 1445, For 3 doses [facility] Medication administered onsite 168 HR Clonidine 0.20314 MG/HR Transderm al Patch cloNIDine 0.2 MG/24HR Transdermal Patch Weekly (CATAPRES) cloNIDine 0.2 MG/24HR Transdermal Patch Weekly (CATAPRES) 10/22/2019 12:00:00 AM EDT 1 {patch} Transdermal active Place 1 patch onto the skin once a week [facility] fentaNYL (SUBLIMAZE) (PF) injection 12.5 mcg 7994-8361-36 10/21/2019 05:52:59 PM EDT 12.5 ug Intravenous aborted 12.5 mcg, Intravenous, Every 5 min PRN, Moderate Pain (Pain Scale Score 4-6), Severe Pain (Pain Scale Score 7-10), Starting 10/21/19 at 1752, For 10 doses, Recovery [facility] Medication administered onsite chlorhexidine gluconate 40 MG/ML Medicat ed Liquid Soap chlorhexidine (HIBICLENS) 4 % liquid chlorhexidine (HIBICLENS) 4 % liquid 10/20/2019 05:45:00 PM EDT Topical completed Topical, Once, Wed10/20/19 at 1745, For 1 dose
Apply to arm
[facility] Medication administered onsite Tamsulosin hydrochloride 0.4 MG Oral Capsule tamsulosi n (FLOMAX) capsule 0.4 mg tamsulosin (FLOMAX) capsule 0.4 mg 10/20/2019 05:45:00 PM EDT 0.4 mg Oral active 0.4 mg, Oral, Daily Standard, First dose on Wed10/20/19 at 1745, For 30 days
Swallow whole. Do not crush, chew or open.
[facility] Medication administered onsite lidocaine (LIDODERM) 5 % patch 2 patch 4412-2400-86 0 04:15:00 PM EDT 2 {patch} Transdermal active 2 patch, T ransdermal, Daily Standard, First dose on Wed10/20/19 at 1615, For 30 days
Apply to back12 hours on - 12 hours off
[facility] Medication administered onsite insulin lispro (HumaLOG) injection LOW DOSE EATING INS ULIN patients 1-8 Units 34005-220-52 10/20/2019 01:00:00 PM EDT U Subcutaneous active 1-8 Units, Subcutaneous, Three Times Daily-With Meals, First dose on Wed10/20/19 at 1300, For 30 days
Nursing MUST open the 'SQ Insulin Dosing Charts' Sidebar Report, or, the Patient Summary or Summary Report within the ED.
[facility] Medication administered onsite 1 ML heparin sodium, porcine 1000 UNT/ML Injection heparin (porcine) 1000 units/mL injection 2,000 Units heparin (porcine) 1000 units/mL injectio n 2,000 Units 10/20/2019 09:57:47 AM EDT 2000 U Intravenous active 2,000 Units, Intravenous, Daily PRN, Other, Starting Wed10/20/19 at 0957, For 30 days
Fill for the catheter length
[facility] Medication administered onsite dextrose 50 % IV solution 25 mL [id number] 10/20/2019 09:06:53 AM E DT 25 mL Intravenous active 25 mL, Intrav enous, PRN, Other, blood glucose <55, Starting Wed10/20/19 at 09, For 30 days
Not for midline administration.
[facility] Medication administered onsite Glucagon 1 MG Injection glucagon (human recombinant) ( GLUCAGEN) injection 1 mg glucagon (human recombinant) (GLUCAGEN) injection 1 mg 10/20/2019 09:06:53 AM EDT 1 mg Intramuscular active 1 mg, Intramuscular, PRN, for glucose <55 without IV access, Starting Wed10/20/19 at 0906, For 30 days [facility] Medication administered onsite Glucose 0.417 MG/MG Oral Gel glucose (GLUTOSE) 40 % or al gel 15 g glucose (GLUTOSE) 40 % oral gel 15 g 10/20/2019 09:06:53 AM EDT 15 g Oral active 15 g, Oral, PRN, Low blood s ugar, for gluose 55-69 mg/dl and able to take PO, Starting Wed10/20/19 at 905, For 30 days [facility] Medication administered onsite POLYETHYLENE GLYCOL 3350 142 MG/ML Oral Solution polyethylene glycol (MIRALAX) packet 17 g polyethylene glycol (MIRALAX) packet 17 g 10/20/2019 0 9:00:00 AM EDT 17 g Oral active 17 g, Or al, Daily Standard, First dose on Wed10/20/19 at 0900, For 30 doses [facility] Medication administered onsite Allopurinol 100 MG Oral Tablet allopurinol (ZYLOPRIM) tablet 100 mg allopurinol (ZYLOPRIM) tablet 100 mg 10/20/2019 09:00:00 AM EDT 100 mg Oral active 100 mg, Oral, Daily Standard, First dose on Wed 0 at 0900, For 30 days [facility] Medication administered onsite atorvastatin 40 MG Oral Tablet atorvastatin (LIPITOR) tablet 40 mg atorvastatin (LIPITOR) tablet 40 mg 10/20/2019 09:00:00 AM EDT 40 mg Oral active 40 mg, Oral, Daily Standard, First dose on Wed10/20/19 at 0900, For 30 days [facility] Medication administered onsite Aspirin 81 MG Chewable Tablet aspirin chewable tablet 81 mg aspirin chewable tablet 81 mg 10/20/2019 09:00:00 AM EDT 81 mg Oral activ e 81 mg, Oral, Daily Standard, First dose on Wed10/20/19 at 0900, For 30 doses [facility] Medication administered onsite iodixanol (VISIPAQUE) 320 MG/ML contrast injection 100 mL [id number] [id number] 10/20/2019 01:00:00 AM EDT 100 mL Given by IV completed 100 mL, Given by IV, 1 TIME IMAGING, Wed10/20/19 at 0100, For 1 dose [facility] Medication administered onsite Famotidine 20 MG Oral Tablet famotidine (PEPCID) table t 40 mg famotidine (PEPCID) tablet 40 mg 10/20/2019 12:00:00 AM EDT 40 mg Oral completed 40 mg, Oral, Once, Wed10/20/19 at 0000, For 1 dose
Given 1 hour before the exam.
[facility] Medication administered onsite Diphenhydramine Hydrochloride 25 MG Oral Capsule diphenhydrAMINE (BENADRYL) capsule 50 mg diphenhydrAMINE (BENADRYL) capsule 50 mg 10/20/2019 12 :00:00 AM EDT 50 mg Oral completed 50 mg, Oral, Once, Wed10/20/19 at 0000, For 1 dose
Given 1 hour before the exam.
[facility] Medication administered onsite Acetaminophen 325 MG Oral Tablet acetaminophen (TYLENO L) tablet 650 mg acetaminophen (TYLENOL) tablet 650 mg 10/19/2019 08:19:36 PM EDT 65 0 mg Oral active 650 mg, Oral, E very 6 hours PRN, Mild Pain (Pain Scale Score 1- 3), Starting Leti 10/19/19 at 2018, For 30 days
Maximum daily dose of acetaminophen is 3,000 mg from all sources in 24 hours.
[facility] Medication administered onsite fentaNYL (SUBLIMAZE) (PF) injection 25 mcg [id number] 10/19/2019 08:19:36 PM EDT 25 ug Intravenous aborted 25 m cg, Intravenous, Every 2 hours PRN, Breakthrough pain, Starting Leti 10/19/19 at 2019, For 3 days [facility] Medication administered onsite ondansetron (ZOFRAN) injection 4 mg [id number] 10/19/2019 08:19:3 6 PM EDT 4 mg Intravenous active 4 mg, In travenous, Every 8 hours PRN, Nausea, Vomiting, Starting Leti 10/19/19 at 2019, For 9 days 12 hours [facility] Medication administered onsite furosemide (LASIX) tablet 50 mg 10/19/2019 08:00:00 PM EDT 50 mg Oral aborted 50 mg, Oral, 2 Times Daily, First dose on Leti 10/19/19 at 2000, For 30 days [facility] Medication administered onsite Methylprednisolone 40 MG/ML Injectable S olution methylPREDNISolone sodium succinate (SOLU-MEDROL) injection 40 mg methylPREDNISolone sodium succinate (SOLU-MEDROL) injection 40 mg 10/19/2019 07:45:00 PM EDT 40 mg I ntravenous aborted 40 mg, Intraveno us, Every 4 hours, Please administer every [address] Angiography is complete, then no longer need administration, First dose on Leti 10/19/19 at 1945, For 1 day
To be administered every [address] Scan, and then stopped after CT scan. CT Scan can be performed at least 4 hours after first dose.
[facility] Medication administered onsite 168 HR Clonidine 0.24831 MG/HR Transderm al Patch cloNIDine (CATAPRES) 0.2 MG/24HR patch 1 patch cloNIDine (CATAPRES) 0.2 MG/24HR patch 1 patch 020 07:00:00 PM EDT 1 {patch} Transdermal aborted 1 patch, Transdermal, Administer over 7 Days, Weekly, First dose on Leti 10/19/19 at 1900, For 30 days [facility] Medication administered onsite ondansetron (ZOFRAN) injection 4 mg [id number] 10/19/2019 03:45:0 0 PM EDT 4 mg Given by IV completed 4 mg, Gi leah by IV, Once, Leti 10/19/19 at 1545, For 1 dose [facility] Medication administered onsite morphine sulfate (PF) injection 4 mg [id number] 10/19/2019 03:45: 00 PM EDT 4 mg Intravenous completed 4 mg, In travenous, Once, Leti 10/19/19 at 1545, For 1 dose [facility] Medication administered onsite 5 % 10/14/2019 12:00:00 AM EDT adhesive patch,medicate d 90 APPLY 1 DAILY 12 HOURS ON THEN 12 HOURS OFF APPLY 1 DAILY 12 HOURS ON THEN 12 HOURS OFF SOLD: 10/15/2019 [facility] 0.1 mg/24 hr 09/27/2019 12:00:00 AM EDT patch weekly 4 APPLY 1 PATCH EVERY WEEK REMOVE OLD PATCH BEFORE APPLYING NEW PATCH APPLY 1 PATCH EVERY WEEK REMOVE OLD PATCH BEFORE APPLYING NEW PATCH SOLD: 09/30/2019 [facility] 0.1 mg/24 hr 09/27/2019 12:00:00 AM EDT patch weekly 4 APPLY 1 PATCH EVERY WEEK REMOVE OLD PATCH BEFORE APPLYING NEW PATCH APPLY 1 PATCH EVERY WEEK REMOVE OLD PATCH BEFORE APPLYING NEW PATCH SOLD: 12/14/2019 [facility] Clindamycin 150 MG Oral Capsule CLINDAMYCIN HCL 09/14/2019 12:00 :00 AM EDT capsule 21 TAKE ONE CAPSULE BY MOUTH THREE TIMES A DAY FOR 7 DAYS WITH PROBIOTIC TAKE ONE CAPSULE BY MOUTH THREE TIMES A DAY FOR 7 DAYS WITH PROBIOTIC SOLD: 09/15/2019 [facility] Mupirocin 0.02 MG/MG Topical Ointment Mupirocin 09/13/2019 12:00:00 AM EDT active [facility] ([facility] Clindamycin 300 MG Oral Capsule Clindamycin HCL 09/13/2019 12:00:00 A M EDT ORAL completed [facility] ([facility] Clindamycin 300 MG Oral Capsule Clindamycin HCL 09/13/2019 12:00:00 A M EDT ORAL completed [facility] ([facility] Clindamycin 150 MG Oral Capsule Clindamycin HCL 09/13/2019 12:00:00 A M EDT ORAL active [facility] ([facility] Clindamycin 150 MG Oral Capsule CLINDAMYCIN HCL 09/07/2019 12:00 :00 AM EDT capsule 14 TAKE ONE CAPSULE BY MOUTH TWICE A DAY FOR 7 DAYS TAKE ONE CAPSULE BY MOUTH TWICE A DAY FOR 7 DAYS SOLD: 09/07/2019 [facility] Clindamycin 150 MG Oral Capsule Clindamycin HCL 09/07/2019 12:00:00 A M EDT completed [facility] ([facility] Prednisone 50 MG Oral Tablet Prednisone 08/28/2019 12:00:00 AM EDT active [facility] ([facility], ) Diphenhydramine Hydrochloride 25 MG Oral Capsule [Benadryl] Benadryl Allergy 08/28/2019 12:00:00 AM EDT ORAL active [facility] ([facility], ) 40 mg 08/27/2019 12:00:00 AM EDT tablet,delayed release (DR/EC) 90 TAKE ONE TABLET BY MOUTH EVERY DAY TAKE ONE TABLET BY MOUTH EVERY DAY SOLD: 08/27/2019 [facility] 10 mg 08/21/2019 12:00:00 AM EDT tablet 3 TAKE ONE TABLET BY MOUTH EVERY DAY FOR 3 DAYS TAKE ONE TABLET BY MOUTH EVERY DAY FOR 3 DAYS SOLD: 08/21/2019 [facility] 4 mg 08/21/2019 12:00:00 AM EDT tablet 14 TAKE ONE TABLET BY MOUTH TWICE A DAY FOR 7 DAYS TAKE ONE TABLET BY MOUTH TWICE A DAY FOR 7 DAYS SOLD: 2019 [facility] 200 ACTUAT Albuterol 0.09 MG/ACTUAT Metered Dose Inhal er [Ventolin] Ventolin HFA 08/14/2019 12:00:00 AM EDT RESPIRATORY active [facility] ([facility] 50 mg 07/19/2019 12:00:00 AM EDT tablet 3 TAKE 1 PILL BY MOUTH 13 HOURS PRIOR TO PROCEDURE TAKE 1 PILL 7 HOURS PRIOR TO PROCEDURE THEN 1 HOUR PRIOR TO PROCEDURE TAKE 1 PILL BY MOUTH 13 HOURS PRIOR TO P ROCEDURE TAKE 1 PILL 7 HOURS PRIOR TO PROCEDURE THEN 1 HOUR PRIOR TO PROCEDURE SOLD: 07/21/2019 [facility] 12 % 07/19/2019 12:00:00 AM EDT cream 140 APPLY TO FEET TWO TIMES A DAY APPLY TO FEET TWO TIMES A DAY SOLD: 12/26/2019 [facility] 12 % 07/19/2019 12:00:00 AM EDT cream 140 APPLY TO FEET TWO TIMES A DAY APPLY TO FEET TWO TIMES A DAY SOLD: 07/21/2019 [facility] Prednisone 50 MG Oral Tablet Prednisone 07/18/2019 12:00:00 AM EDT completed [facility] ([facility], ) Diphenhydramine Hydrochloride 25 MG Oral Capsule [Benadryl] Benadryl Allergy 07/18/2019 12:00:00 AM EDT ORAL completed [facility] ([facility], ) 0.1 mg/24 hr 07/06/2019 12:00:00 AM EDT patch weekly 4 APPLY 1 PATCH EVERY WEEK REMOVE OLD PATCH BEFORE APPLY NEW PATCH APPLY 1 PATCH EVERY WEEK REMOVE OLD PATCH BEFORE APPLY NEW PATCH SOLD: 07/08/2019 [facility] 0.1 mg/24 hr 07/06/2019 12:00:00 AM EDT patch weekly 4 APPLY 1 PATCH EVERY WEEK REMOVE OLD PATCH BEFORE APPLY NEW PATCH APPLY 1 PATCH EVERY WEEK REMOVE OLD PATCH BEFORE APPLY NEW PATCH SOLD: 08/27/2019 [facility] 0.1 mg/24 hr 07/06/2019 12:00:00 AM EDT patch weekly 4 APPLY 1 PATCH EVERY WEEK REMOVE OLD PATCH BEFORE APPLY NEW PATCH APPLY 1 PATCH EVERY WEEK REMOVE OLD PATCH BEFORE APPLY NEW PATCH SOLD: 07/31/2019 [facility] Injection (SC)/(Im) 06/16/2019 12:00:00 AM EDT completed [facility] ([facility] Medication administered onsite Solu-Medrol Solu-Medrol 06/16/2019 12:00:00 AM EDT completed [facility] ([facility] Alprazolam 0.5 MG Oral Tablet ALPRAZOLAM 06/06/2019 12:00:00 AM EDT ta blet 60 TAKE ONE TABLET BY MOUTH TWICE A DAY NEEDED MAXIMUM DAILY DOSE = TWO TABLETS TAKE ONE TABLET BY MOUTH TWICE A DAY NEEDED MAXIMUM DAILY DOSE = TWO TABLETS SOLD: 06/17/2019 [facility] 4 mg 06/05/2019 12:00:00 AM EDT tablet 30 TAKE ONE TABLET BY MOUTH EVERY 8 HOURS NEEDED FOR NAUSEA TAKE ONE TABLET BY MOUTH EVERY 8 HOURS A S NEEDED FOR NAUSEA SOLD: 06/05/2019 [facility] Ondansetron 4 MG Oral Tablet Ondansetron HCL 06/05/2019 12:00:00 AM E DT ORAL completed [facility] ([facility] Azithromycin 250 MG Oral Tablet Azithromycin 06/05/2019 12:00:00 AM E DT ORAL completed [facility] ([facility] 250 mg 06/05/2019 12:00:00 AM EDT tablet 6 TAKE TWO TABLETS BY MOUTH AT ONCE ON THE FIRST DAY THEN TAKE ONE DAILY THEREAFTER TAKE TWO TABLETS BY MOUTH AT ONCE ON THE FIRST DAY THEN TAKE ONE DAILY THEREAFTER SOLD: 06/05/2019 [facility] 100 mg 05/27/2019 12:00:00 AM EDT tablet 90 TAKE ONE TABLET BY MOUTH EVERY DAY TAKE ONE TABLET BY MOUTH EVERY DAY SOLD: 05/27/2019 [facility] 100 mg 05/27/2019 12:00:00 AM EDT tablet 90 TAKE ONE TABLET BY MOUTH EVERY DAY TAKE ONE TABLET BY MOUTH EVERY DAY SOLD: 08/25/2019 [facility] 2.5 mg 05/17/2019 12:00:00 AM EST tablet 180 TAKE ONE TABLET BY MOUTH TWICE A DAY TAKE ONE TABLET BY MOUTH TWICE A DAY SOLD: 05/17/2019 [facility] 250 mg 05/17/2019 12:00:00 AM EST tablet 10 TAKE TWO TABLETS BY MOUTH AT ONCE ON THE FIRST DAY THEN TAKE ONE DAILY THEREAFTER TAKE TWO TABLETS BY MOUTH AT ONCE ON THE FIRST DAY THEN TAKE ONE DAILY THEREAFTER SOLD: 05/17/2019 [facility] 90 mcg/actuation 05/17/2019 12:00:00 AM EST HFA aerosol inha ler 8 INHALE TWO PUFFS BY MOUTH THREE TIMES A DAY FOR 10 DAYS INHALE TWO PUFFS BY MOUTH THREE TIMES A DAY FOR 10 DAYS SOLD: 05/17/2019 [facility] 2.5 mg 05/17/2019 12:00:00 AM EST tablet 180 TAKE ONE TABLET BY MOUTH TWICE A DAY TAKE ONE TABLET BY MOUTH TWICE A DAY SOLD: 08/21/2019 [facility] BLOOD SUGAR DIAGNOSTIC 05/02/2019 12:00:00 AM EST strip 450 USE TO TEST BLOOD GLUCOSE 5 TIMES DAILY USE TO TEST BLOOD GLUCOSE 5 TIMES DAILY SOLD: 11/28/2019 [facility] BLOOD SUGAR DIAGNOSTIC 05/02/2019 12:00:00 AM EST strip 450 USE TO TEST BLOOD GLUCOSE 5 TIMES DAILY USE TO TEST BLOOD GLUCOSE 5 TIMES DAILY SOLD: 05/02/2019 [facility] 33 gauge 05/02/2019 12:00:00 AM EST misc 500 USE TO TEST BLOOD GLUCOSE 5 TIMES DAILY USE TO TEST BLOOD GLUCOSE 5 TIMES DAILY SOLD: 08/09/2019 [facility] BLOOD SUGAR DIAGNOSTIC 05/02/2019 12:00:00 AM EST strip 450 USE TO TEST BLOOD GLUCOSE 5 TIMES DAILY USE TO TEST BLOOD GLUCOSE 5 TIMES DAILY SOLD: 08/09/2019 [facility] 33 gauge 05/02/2019 12:00:00 AM EST misc 500 USE TO TEST BLOOD GLUCOSE 5 TIMES DAILY USE TO TEST BLOOD GLUCOSE 5 TIMES DAILY SOLD: 11/28/2019 [facility] 33 gauge 05/02/2019 12:00:00 AM EST misc 500 USE TO TEST BLOOD GLUCOSE 5 TIMES DAILY USE TO TEST BLOOD GLUCOSE 5 TIMES DAILY SOLD: 05/02/2019 [facility] 100 mg 04/10/2019 12:00:00 AM EST tablet 30 TAKE 1/2 TABLET BY MOUTH TWO TIMES A DAY TAKE 1/2 TABLET BY MOUTH TWO TIMES A DAY SOLD: 06/17/2019 [facility] 100 mg 04/10/2019 12:00:00 AM EST tablet 30 TAKE 1/2 TABLET BY MOUTH TWO TIMES A DAY TAKE 1/2 TABLET BY MOUTH TWO TIMES A DAY SOLD: 05/14/2019 [facility] 100 mg 04/10/2019 12:00:00 AM EST tablet 30 TAKE 1/2 TABLET BY MOUTH TWO TIMES A DAY TAKE 1/2 TABLET BY MOUTH TWO TIMES A DAY SOLD: 08/25/2019 [facility] 100 mg 04/10/2019 12:00:00 AM EST tablet 30 TAKE 1/2 TABLET BY MOUTH TWO TIMES A DAY TAKE 1/2 TABLET BY MOUTH TWO TIMES A DAY SOLD: 07/24/2019 [facility] 100 mg 04/10/2019 12:00:00 AM EST tablet 30 TAKE 1/2 TABLET BY MOUTH TWO TIMES A DAY TAKE 1/2 TABLET BY MOUTH TWO TIMES A DAY SOLD: 09/30/2019 [facility] 100 mg 04/10/2019 12:00:00 AM EST tablet 30 TAKE 1/2 TABLET BY MOUTH TWO TIMES A DAY TAKE 1/2 TABLET BY MOUTH TWO TIMES A DAY SOLD: 04/10/2019 [facility] 0.1 mg/24 hr 04/08/2019 12:00:00 AM EST patch weekly 4 APPLY 1 PATCH EVERY WEEK. REMOVE OLD PATCH BEFORE APPLYING NEW PATCH APPLY 1 PATCH EVERY WEEK. REMOVE OLD PATCH BEFORE APPLYING NEW PATCH SOLD: 05/14/2019 [facility] 0.1 mg/24 hr 04/08/2019 12:00:00 AM EST patch weekly 4 APPLY 1 PATCH EVERY WEEK. REMOVE OLD PATCH BEFORE APPLYING NEW PATCH APPLY 1 PATCH EVERY WEEK. REMOVE OLD PATCH BEFORE APPLYING NEW PATCH SOLD: 06/05/2019 [facility] 0.1 mg/24 hr 04/08/2019 12:00:00 AM EST patch weekly 4 APPLY 1 PATCH EVERY WEEK. REMOVE OLD PATCH BEFORE APPLYING NEW PATCH APPLY 1 PATCH EVERY WEEK. REMOVE OLD PATCH BEFORE APPLYING NEW PATCH SOLD: 04/10/2019 [facility] 24 HR Glipizide 2.5 MG Extended Release Oral Tablet Glipizid e ER 03/21/2019 12:00:00 AM EST ORAL active [facility] ([facility]) 100 mg 03/12/2019 12:00:00 AM EST tablet 15 TAKE ONE-HALF TABLET BY MOUTH TWICE A DAY TAKE ONE-HALF TABLET BY MOUTH TWICE A DAY SOLD: 03/14/2019 [facility] 100 mg 03/09/2019 12:00:00 AM EST capsule 60 TAKE TWO CAPSULES BY MOUTH AT BEDTIME TAKE TWO CAPSULES BY MOUTH AT BEDTIME SOLD: 03/14/[address] [facility] [address] [facility] 02/13/2019 12:00:00 AM EST tablet 90 TAKE ONE TABLET BY MOUTH EVERY DAY TAKE ONE TABLET BY MOUTH EVERY DAY SOLD: 08/25/2019 [facility] 2.5 mg 02/13/2019 12:00:00 AM EST tablet extended release 24hr 90 TAKE ONE TABLET BY MOUTH EVERY DAY TAKE ONE TABLET BY MOUTH EVERY DAY SOLD: 05/14/2019 [facility] 88 mcg 02/13/2019 12:00:00 AM EST tablet 90 TAKE ONE TABLET BY MOUTH EVERY DAY TAKE ONE TABLET BY MOUTH EVERY DAY SOLD: 05/14/2019 [facility] 40 mg 02/07/2019 12:00:00 AM EST tablet,delayed release (DR/EC) 90 TAKE ONE TABLET BY MOUTH EVERY DAY TAKE ONE TABLET BY MOUTH EVERY DAY SOLD: 05/27/2019 [facility] 2 % 02/03/2019 12:00:00 AM EST ointment 44 APPLY TOPICALLY TO BUTTOCKS LESION TWO TIMES A DAY FOR 10 DAYS APPLY TOPICALLY TO BUTTOCKS LESION TWO T IMES A DAY FOR 10 DAYS SOLD: 05/27/2019 [facility] 0.1 mg/24 hr 01/10/2019 12:00:00 AM EDT patch weekly 4 APPLY 1 PATCH ONCE WEEKLY, REMOVE OLD PATCH BEFORE APPLYING NEW PATCH APPLY 1 PATCH ONCE WEEKLY, REMOVE OLD PATCH BEFORE APPLYING NEW PATCH SOLD: 03/14/2019 [facility] 5 % 12/16/2018 12:00:00 AM EDT adhesive patch,medicate d 87 APPLY 1 DAILY 12 HOURS ON THEN 12 HOURS OFF APPLY 1 DAILY 12 HOURS ON THEN 12 HOURS OFF SOLD: 08/13/2019 [facility] 5 % 12/16/2018 12:00:00 AM EDT adhesive patch,medicate d 90 APPLY 1 DAILY 12 HOURS ON THEN 12 HOURS OFF APPLY 1 DAILY 12 HOURS ON THEN 12 HOURS OFF SOLD: 05/25/2019 [facility] Amiloride Hydrochloride 5 MG Oral Tablet amiloride (NH DAMOR) 5 MG tablet amiloride (MIDAMOR) 5 MG tablet 12/06/2017 12:00:00 AM EDT 5 mg O ral aborted Take 5 mg by mouth daily [facility] valsartan 160 MG Oral Tablet valsartan (DIOVAN) 160 MG tablet valsartan (DIOVAN) 160 MG tablet 160 mg Oral aborted Take 160 mg by mouth daily [facility] Insurance Providers Payer name Policy type / Coverage type Policy ID Covered democrat ID Covered democrat's relationship to flores Policy Flores Plan Information WELLCARE [id number] SP [id number] WELLCARE-[facility] [place] [id number] 18 [id number] WELLCARE [id number] SP [id number] WELLCARE [id number] SP [id number] WELLCARE O [id number] S [id number] WELLCARE [id number] SP [id number] MEDICARE [id number] SP [id number] WELLCARE O [id number] S [id number] [facility] CP DUAL COMP - FACILITY [id number] 18 [id number] WELLCARE MEDICARE HMO G [id number] Self [id number] MEDICARE [id number] SP [id number] Wellcare MCR - To Ppo Commercial [id number] Self [id number] Medicare (Part B) Medicare Primary [id number] Self [id number] Today's Options PFFS Commercial [id number] Self [id number] Today's Options Ppo Commercial [id number] Self [id number] Today's Options PFFS Commercial [id number] Self [id number] Wellcare MCR - To Ppo Commercial [id number] Self [id number] Medicare (Part B) Medicare Primary [id number] Self [id number] Today's Options PFFS Commercial [id number] Self [id number] Today's Options Ppo Commercial [id number] Self [id number] TODAYS OPTIONS [id number] SP [id number] Wellcare MCR - To Ppo Commercial [id number] Self [id number] Medicare (Part B) Medicare Primary [id number] Self [id number] Today's Options PFFS Commercial [id number] Self [id number] Today's Options Ppo Commercial [id number] Self [id number] Wellcare MCR - To Ppo Commercial [id number] Self [id number] Medicare (Part B) Medicare Primary [id number] Self [id number] Today's Options PFFS Commercial [id number] Self [id number] Today's Options Ppo Commercial [id number] Self [id number] AMER PROG TODAYS OPTIONS G [id number] Self [id number] MEDICARE [id number] SP [id number] A TODAYS OPTIONS [id number] SP [id number] Medicare (Part B) Medicare Primary [id number] Self [id number] Today's Options PFFS Commercial [id number] Self [id number] Today's Options Ppo Commercial [id number] Self [id number] Medicare (Part B) Medicare Primary [id number] Self [id number] Today's Options PFFS Commercial [id number] Self [id number] Today's Options Ppo Commercial [id number] Self [id number] TODAYS OPTIONS/CHILEAN O [id number] S [id number] Medicare (Part B) Medicare Primary [id number] Self [id number] Today's Options PFFS Commercial [id number] Self [id number] Today's Options Ppo Commercial [id number] Self [id number] Medicare (Part B) Medicare Primary [id number] Self [id number] Today's Options PFFS Commercial [id number] Self [id number] Today's Options Ppo Commercial [id number] Self [id number] Medicare (Part B) Medicare Primary [id number] Self [id number] Today's Options PFFS Commercial [id number] Self [id number] Today's Options Ppo Commercial [id number] Self [id number] Medicare (Part B) Medicare Primary [id number] Self [id number] Today's Options PFFS Commercial [id number] Self [id number] Today's Options Ppo Commercial [id number] Self [id number] Medicare (Part B) Medicare Primary [id number] Self [id number] Today's Options PFFS Commercial [id number] Self [id number] Today's Options Ppo Commercial [id number] Self [id number] Medicare (Part B) Medicare Primary [id number] Self [id number] Today's Options PFFS Commercial [id number] Self [id number] Today's Options Ppo Commercial [id number] Self [id number] Today's Option Medicare Commercial [id number] Self [id number] TODAYS OPTIONS [id number] SP [id number] Medicare (Part B) Medicare Primary [id number] Self [id number] Today's Options PFFS Commercial [id number] Self [id number] Today's Options Ppo Commercial [id number] Self [id number] Today's Option Commercial [id number] Self [id number] Medicare (Part B) Medicare Primary [id number] Self [id number] Today's Options PFFS Commercial [id number] Self [id number] Today's Options Ppo Commercial [id number] Self [id number] Medicare (Part B) Medicare Primary [id number] Self [id number] Today's Options PFFS Commercial [id number] Self [id number] Today's Options Ppo Commercial [id number] Self [id number] Medicare (Part B) Medicare Primary [id number] Self [id number] Today's Options PFFS Commercial [id number] Self [id number] Today's Options Ppo Commercial [id number] Self [id number] Medicare (Part B) Medicare Primary [id number] Self [id number] Today's Options PFFS Commercial [id number] Self [id number] Today's Options Ppo Commercial [id number] Self [id number] Medicare (Part B) Medicare Primary [id number] Self [id number] Today's Options PFFS Commercial [id number] Self [id number] Today's Options Ppo Commercial [id number] Self [id number] Today's Option Commercial Self Medicare (Part B) Medicare Primary Self Today's Options PFFS Commercial Self Today's Options PFFS Commercial Self Today's Options Ppo Commercial Self BS [place] Medigap Part B Self Medicare [facility] Medigap Part B Self Todays Options Commercial Self TOD[place] [id number] [place] [id number] Medicare Medicare Primary Self Problems, Conditions, and Diagnoses Code Display Name Description Problem Type Effective Dates Data Source(s) [id number] Permanent atrial fibrillation Permanent atrial fibrill ation Problem 05/01/2020 12:00:00 AM EST [facility] ([facility]) Type 2 diabetes mellitus with diabetic n europathy, unspecified Type 2 diabetes mellitus with diabetic neuropathy, unspecified Problem 2019 12:00:00 AM EDT [facility] ([facility] Permanent atrial fibrillation Permanent atrial fibrill ation Problem 03/22/2019 12:00:00 AM EST [facility] ([facility]) [id number] Preoperative cardiovascular examination Preoperative cardiovascular examination Problem 03/22/2019 12:00:00 AM EST [facility] ([facility]) N186 End stage renal disease End stage renal disease Diagno sis [facility] D[facility] on renal dialysis Dependence on renal dialy sis Diagnosis 10/20/2019 05:07:11 PM [facility] N18.6 End stage renal disease End stage renal disease Diagno sis 10/20/2019 05:07:11 PM [facility] T82.898A Other specified complication of vascular prosthetic devices, implants and grafts, initial encounter Other specified complication of vascular prosthetic devices, implants and grafts, initial encounter Diagnosis 10/19/2019 02:45:28 PM [facility] pain and swelling on LUE fistula site pain and s welling on LUE fistula site Diagnosis 10/19/2019 02:45:28 PM [facility] Z86.73 Personal history of transien t ischemic attack (TIA), and cerebral infarction without residual deficits Personal history of transient ischemic attack (TIA), and cerebral infarction without residual deficits Diagnosis 10/19/2019 02:45:28 PM [facility] I10 Essential (primary) hypertension Essential (primary) h ypertension Diagnosis 10/19/2019 02:45:28 PM [facility] E11.9 Type 2 diabetes mellitus without complic ations Type 2 diabetes mellitus without complications Diagnosis 10/19/2019 02:45:28 PM EDT [facility] R11.0 Nausea Nausea Diagnosis 10/19/2019 02:45:28 PM ED [facility] R07.89 Other chest pain Other chest pain Diagnosis 10/19/2019 02 :45:28 PM [facility] R60.9 Edema, unspecified Edema, unspecified Diagnosis 08/2019 02:45:28 PM [facility] T82.9XXA Unspecified complication of cardiac and vascular prosthetic device, implant and graft, initial encounter Unspecified complication of cardiac and vascular prosthetic device, implant and graft, initial encounter Diagnosis 10/19/2019 02:45:28 PM [facility] pain and swelling on fistula site pain and swelling on fistula site Diagnosis 10/19/2019 09:42:40 AM [facility] Surgeries/Procedures Procedure Description Date Indications Data Source(s) Pare Hyperkeratotic Lesion, Single 05/08/2020 12:00:00 AM EST [facility] ([facility]) Debridement Nails Any Method 6 Or More 05/08/2020 12:0 0:00 AM EST [facility] ([facility]) ECG ROUTINE ECG W/LEAST 12 LDS W/I&R 05/01/2020 12:00: 00 AM EST [facility] ([facility]) Dialysis Circuit W/ Transluminal Balloon Angioplasty, Periph eral 01/19/2020 12:00:00 AM EST [facility] ([facility], ) Moderate Sedation Services; Same Phys Intl 15 Mins; PT >= 5 Years 01/19/2020 12:00:00 AM EST [facility] MYOCARDIAL SPECT MULTIPLE STUDIES 11/27/2019 12:00:00 AM EDT [facility] ([facility]) CV STRS TST XERS&/OR RX CONT ECG PHYS SI&R 11/27/2019 12:00:00 AM EDT [facility] ([facility]) POCT GLUCOSE, DOCKED POCT GLUCOSE, DOCKED Routine 10/26/2019 12:08 PM EDT 10/26/2019 12:08:00 PM [facility] POCT GLUCOSE, DOCKED POCT GLUCOSE, DOCKED Routine 10/26/2019 8:08 AM EDT 10/26/2019 08:08:00 AM [facility] POCT GLUCOSE, DOCKED POCT GLUCOSE, DOCKED Routine 10/26/2019 6:23 AM EDT 10/26/2019 06:23:00 AM [facility] BASIC METABOLIC PANEL CALCIUM TOTAL BASIC METABOLIC PANEL Routi ne 10/26/2019 6:18 AM EDT 10/26/2019 06:18:00 AM EDT [facility] POCT GLUCOSE, DOCKED POCT GLUCOSE, DOCKED Routine 10/25/2019 10:19 PM EDT 10/25/2019 10:19:00 PM [facility] GLUCOSE QUANTITATIVE BLOOD XCPT REAGENT STRIP POCT GLUCOSE, DOC KED Routine 10/25/2019 5:21 PM EDT 10/25/2019 05:21:00 PM [facility] GLUCOSE QUANTITATIVE BLOOD XCPT REAGENT STRIP POCT GLUCOSE, DOC KED Routine 10/25/2019 12:02 PM EDT 10/25/2019 12:02:00 PM [facility] GLUCOSE QUANTITATIVE BLOOD XCPT REAGENT STRIP POCT GLUCOSE, DOC VÍCTORD Routine 10/25/2019 8:08 AM EDT 10/25/2019 08:08:00 AM [facility] URNLS DIP STICK/TABLET REAGENT AUTO MICROSCOPY URINALYSIS W ITH MICROSCOPIC Routine 10/25/2019 4:52 AM EDT 10/25/2019 04:52:00 AM [facility] BLOOD COUNT COMPLETE AUTOMATED CBC Routine 10/25/2019 4:52 A M EDT 10/25/2019 04:52:00 AM [facility] CULTURE BCT ISOL&PRSMPTV ID ISOLATE EA URINE URINE CULTURE Ro utine 10/25/2019 4:52 AM EDT 10/25/2019 04:52:00 AM EDT [facility] BASIC METABOLIC PANEL CALCIUM TOTAL BASIC METABOLIC PANEL Routi ne 10/25/2019 4:52 AM EDT 10/25/2019 04:52:00 AM EDT [facility] GLUCOSE QUANTITATIVE BLOOD XCPT REAGENT STRIP POCT GLUCOSE, DOC VÍTCORD Routine 10/24/2019 10:37 PM EDT 10/24/2019 10:37:00 PM [facility] GLUCOSE QUANTITATIVE BLOOD XCPT REAGENT STRIP POCT GLUCOSE, DOC VÍCTORD Routine 10/24/2019 5:27 PM EDT 10/24/2019 05:27:00 PM [facility] UH COVID-19 PCR UH COVID-19 PCR STAT 10/24/2019 4:48 PM EDT 10/24/2019 04:48:00 PM [facility] GLUCOSE QUANTITATIVE BLOOD XCPT REAGENT STRIP POCT GLUCOSE, CAYETANO RENEED Routine 10/24/2019 12:01 PM EDT 10/24/2019 12:01:00 PM [facility] GLUCOSE QUANTITATIVE BLOOD XCPT REAGENT STRIP POCT GLUCOSE, DOC KED Routine 10/24/2019 7:58 AM EDT 10/24/2019 07:58:00 AM [facility] BASIC METABOLIC PANEL CALCIUM TOTAL BASIC METABOLIC PANEL Routi ne 10/24/2019 4:11 AM EDT 10/24/2019 04:11:00 AM EDT [facility] GLUCOSE QUANTITATIVE BLOOD XCPT REAGENT STRIP POCT GLUCOSE, DOC KED Routine 10/23/2019 9:03 PM EDT 10/23/2019 09:03:00 PM [facility] GLUCOSE QUANTITATIVE BLOOD XCPT REAGENT STRIP POCT GLUCOSE, DOC KED Routine 10/23/2019 5:31 PM EDT 10/23/2019 05:31:00 PM [facility] GLUCOSE QUANTITATIVE BLOOD XCPT REAGENT STRIP POCT GLUCOSE, DOC KED Routine 10/23/2019 1:20 PM EDT 10/23/2019 01:20:00 PM [facility] GLUCOSE QUANTITATIVE BLOOD XCPT REAGENT STRIP POCT GLUCOSE, DOC KED Routine 10/23/2019 7:19 AM EDT 10/23/2019 07:19:00 AM [facility] VASC LAB US DOPPLER UPPER EXTREMITY UNILATERAL VENOUS LTD [id number] VASC LAB US DOPPLER UPPER EXTREMITY UNILATERAL VENOUS LTD [id number] Routine 6:58 AM EDT 10/23/2019 06:58:00 AM EDT [facility] THROMBOPLASTIN TIME PARTIAL PLASMA/WHOLE BLOOD PARTIA L THROMBOPLASTIN TIME (PTT) Routine 10/23/2019 5:51 AM EDT 10/23/2019 05:51 :00 AM [facility] PROTHROMBIN TIME PROTIME INR Routine 10/23/2019 5:51 AM EDT 10/23/2019 05:51:00 AM [facility] BLOOD COUNT COMPLETE AUTO&AUTO DIFRNTL WBC COUNT CBC AND DIFFER ENTIAL Routine 10/23/2019 5:51 AM EDT 10/23/2019 05:51:00 AM [facility] PHOSPHORUS INORGANIC PHOSPHORUS LEVEL Routine 10/23/2019 5:51 AM E DT 10/23/2019 05:51:00 AM [facility] MAGNESIUM MAGNESIUM LEVEL Routine 10/23/2019 5:51 AM EDT 10/23/2019 05:51:00 AM [facility] BASIC METABOLIC PANEL CALCIUM TOTAL BASIC METABOLIC PANEL Routi ne 10/23/2019 5:51 AM EDT 10/23/2019 05:51:00 AM EDT [facility] GLUCOSE QUANTITATIVE BLOOD XCPT REAGENT STRIP POCT GLUCOSE, DOC ALIS Routine 10/22/2019 6:24 PM EDT 10/22/2019 06:24:00 PM [facility] GLUCOSE QUANTITATIVE BLOOD XCPT REAGENT STRIP POCT GLUCOSE, DOC ALIS Routine 10/22/2019 12:24 PM EDT 10/22/2019 12:24:00 PM [facility] GLUCOSE QUANTITATIVE BLOOD XCPT REAGENT STRIP POCT GLUCOSE, DOC ALIS Routine 10/22/2019 8:22 AM EDT 10/22/2019 08:22:00 AM [facility] THROMBOPLASTIN TIME PARTIAL PLASMA/WHOLE BLOOD PARTIA L THROMBOPLASTIN TIME (PTT) Routine 10/22/2019 6:31 AM EDT 10/22/2019 06:31 :00 AM [facility] PROTHROMBIN TIME PROTIME INR Routine 10/22/2019 6:31 AM EDT 10/22/2019 06:31:00 AM [facility] BLOOD COUNT COMPLETE AUTO&AUTO DIFRNTL WBC COUNT CBC AND DIFFER ENTIAL Routine 10/22/2019 6:31 AM EDT 10/22/2019 06:31:00 AM [facility] PHOSPHORUS INORGANIC PHOSPHORUS LEVEL Routine 10/22/2019 6:31 AM E DT 10/22/2019 06:31:00 AM [facility] MAGNESIUM MAGNESIUM LEVEL Routine 10/22/2019 6:31 AM EDT 10/22/2019 06:31:00 AM [facility] BASIC METABOLIC PANEL CALCIUM TOTAL BASIC METABOLIC PANEL Routi ne 10/22/2019 6:31 AM EDT 10/22/2019 06:31:00 AM EDT [facility] GLUCOSE QUANTITATIVE BLOOD XCPT REAGENT STRIP POCT GLUCOSE, CAYETANO SNELL Routine 10/21/2019 10:32 PM EDT 10/21/2019 10:32:00 PM [facility] GLUCOSE QUANTITATIVE BLOOD XCPT REAGENT STRIP POCT GLUCOSE, DOC ALIS Routine 10/21/2019 7:03 PM EDT 10/21/2019 07:03:00 PM [facility] INCISION & DRAINAGE, HEMATOMA, SEROMA/FLUID COLLECTION <td><content ID="[id number]">INCISION & DRAINAGE, HEMATOMA, SEROMA/FLUID COLLECTION</content></td><td></td><td>10/21/2019 4:22 PM EDT</td><td><paragraph>Hematoma</paragraph></td><td></td> 10/21/2019 04:22:00 PM EDT - 10/21/2019 06:25:00 PM [facility] GLUCOSE QUANTITATIVE BLOOD XCPT REAGENT STRIP POCT GLUCOSE, DOC KED Routine 10/21/2019 12:40 PM EDT 10/21/2019 12:40:00 PM [facility] GLUCOSE QUANTITATIVE BLOOD XCPT REAGENT STRIP POCT GLUCOSE, DOC KEMonique Routine 10/21/2019 8:14 AM EDT 10/21/2019 08:14:00 AM [facility] THROMBOPLASTIN TIME PARTIAL PLASMA/WHOLE BLOOD PARTIA L THROMBOPLASTIN TIME (PTT) Routine 10/21/2019 5:19 AM EDT 10/21/2019 05:19 :00 AM [facility] PROTHROMBIN TIME PROTIME INR Routine 10/21/2019 5:19 AM EDT 10/21/2019 05:19:00 AM [facility] BLOOD COUNT COMPLETE AUTO&AUTO DIFRNTL WBC COUNT CBC AND DIFFER ENTIAL Routine 10/21/2019 5:19 AM EDT 10/21/2019 05:19:00 AM [facility] PHOSPHORUS INORGANIC PHOSPHORUS LEVEL Routine 10/21/2019 5:19 AM E DT 10/21/2019 05:19:00 AM [facility] MAGNESIUM MAGNESIUM LEVEL Routine 10/21/2019 5:19 AM EDT 10/21/2019 05:19:00 AM [facility] BASIC METABOLIC PANEL CALCIUM TOTAL BASIC METABOLIC PANEL Routi ne 10/21/2019 5:19 AM EDT [facility] GROSS EXAMINATION ONLY SURGICA L PATHOLOGY EXAM ( ONLY) Routine 10/21/2019 12:00 AM EDT 10/21/2019 12:00 :00 AM [facility] GLUCOSE QUANTITATIVE BLOOD XCPT REAGENT STRIP POCT GLUCOSE, DOC ALIS Routine 10/20/2019 11:06 PM EDT 10/20/2019 11:06:00 PM [facility] GLUCOSE QUANTITATIVE BLOOD XCPT REAGENT STRIP POCT GLUCOSE, DOC KEMonique Routine 10/20/2019 5:20 PM EDT 10/20/2019 05:20:00 PM [facility] GLUCOSE QUANTITATIVE BLOOD XCPT REAGENT STRIP POCT GLUCOSE, DOC KED Routine 10/20/2019 2:11 PM EDT 10/20/2019 02:11:00 PM [facility] GLUCOSE QUANTITATIVE BLOOD XCPT REAGENT STRIP POCT GLUCOSE, DOC KED Routine 10/20/2019 12:40 PM EDT 10/20/2019 12:40:00 PM [facility] GLUCOSE QUANTITATIVE BLOOD XCPT REAGENT STRIP POCT GLUCOSE, DOC KED Routine 10/20/2019 9:08 AM EDT 10/20/2019 09:08:00 AM [facility] GLUCOSE QUANTITATIVE BLOOD XCPT REAGENT STRIP POCT GLUCOSE, DOC KEMonique Routine 10/20/2019 4:39 AM EDT 10/20/2019 04:39:00 AM [facility] THROMBOPLASTIN TIME PARTIAL PLASMA/WHOLE BLOOD PARTIA L THROMBOPLASTIN TIME (PTT) Routine 10/20/2019 3:08 AM EDT 10/20/2019 03:08 :00 AM [facility] PROTHROMBIN TIME PROTIME INR Routine 10/20/2019 3:08 AM EDT 10/20/2019 03:08:00 AM [facility] BLOOD COUNT COMPLETE AUTO&AUTO DIFRNTL WBC COUNT CBC AND DIFFER ENTIAL Routine 10/20/2019 3:08 AM EDT 10/20/2019 03:08:00 AM [facility] PHOSPHORUS INORGANIC PHOSPHORUS LEVEL Routine 10/20/2019 3:08 AM E DT 10/20/2019 03:08:00 AM [facility] MAGNESIUM MAGNESIUM LEVEL Routine 10/20/2019 3:08 AM EDT 10/20/2019 03:08:00 AM [facility] BASIC METABOLIC PANEL CALCIUM TOTAL BASIC METABOLIC PANEL Routi ne 10/20/2019 3:08 AM EDT 10/20/2019 03:08:00 AM EDT [facility] CT ANGIOGRAPHY UPPER EXTREMITY CT ANGIOGRAPHY UPPER EXTREMITY 7 3206 STAT 10/20/2019 1:00 AM EDT 10/20/2019 01:00:00 AM [facility] GLUCOSE QUANTITATIVE BLOOD XCPT REAGENT STRIP POCT GLUCOSE, DOC VÍCTORD Routine 10/19/2019 11:16 PM EDT 10/19/2019 11:16:00 PM EDT [facility] VASC LAB US HEMODIALYSIS ACCESS VASC LAB US HEMODIALYSIS ACCESS Routine 10/19/2019 4:40 PM EDT [facility]/19[facility]2019 [facility]PRET[facility] EKG ED PHYSICIAN INTERPRETATION Routine 10/19/2019 4:24 PM EDT 10/19/2019 04:24:34 PM EDT [facility] EKG 12-LEAD - CMAXX REPORT EKG 12-LEAD - CMAXX REPORT 10/19/2019 4:18 PM EDT 10/19/2019 04:18:57 PM EDT [facility] EKG 12-LEAD - CMAXX REPORT EKG 12-LEAD - CMAXX REPORT 10/19/2019 4:18 PM EDT 10/19/2019 04:18:57 PM EDT [facility] EKG 12-LEAD EKG 12-LEAD STAT 10/19/2019 4:18 PM EDT 10/19/2019 [facility] TH[facility]LAST[facility] TIME PARTIAL PLASMA/WHOLE BLOOD PARTIA L THROMBOPLASTIN TIME (PTT) STAT 10/19/2019 3:56 PM EDT 10/19/2019 03:56 :00 PM [facility] PROTHROMBIN TIME PROTIME INR STAT 10/19/2019 3:56 PM EDT 10/19/2019 03:56:00 PM [facility] BLOOD COUNT COMPLETE AUTO&AUTO DIFRNTL WBC COUNT CBC AND DIFFER ENTIAL STAT 10/19/2019 3:56 PM EDT 10/19/2019 03:56:00 PM [facility] HEMOGLOBIN GLYCOSYLATED A1C HEMOGLOBIN A1C Routine 10/19/2019 3:56 PM EDT 10/19/2019 [facility] COMPREHENSIVE METABOLIC PANEL COMPREHENSIVE METABOLIC PANEL STA T 10/19/2019 3:56 PM EDT 10/19/2019 03:56:00 PM EDT [facility] GLUCOSE QUANTITATIVE BLOOD XCPT REAGENT STRIP POCT GLUCOSE, DOC KED Routine 10/19/2019 3:22 PM EDT 10/19/2019 03:22:00 PM [facility] Dialysis Circuit W/ Transluminal Balloon Angioplasty, Periph eral 09/29/2019 12:00:00 AM EDT [facility] ([facility], ) Moderate Sedation Services; Same Phys Intl 15 Mins; PT >= 5 Years 09/29/2019 12:00:00 AM EDT [facility] ([facility], ) ECG ROUTINE ECG W/LEAST 12 LDS W/I&R 09/22/2019 12:00: 00 AM EDT [facility] ([facility]) Dialysis Circuit Percutaneous Transluminal Mechanical Thromb ectom 07/28/2019 12:00:00 AM EDT [facility] ([facility], ) Moderate Sedation Services; Same Phys Intl 15 Mins; PT >= 5 Years 07/28/2019 12:00:00 AM EDT [facility] ([facility]) Injection (SC)/(Im) 06/16/2019 12:00:00 AM EDT [facility] ([facility] ARVEN ANAST OPN UPR ARM BASILIC VEIN TRPOS 03/27/2019 12:00:00 AM EST [facility] ([facility]) ECG ROUTINE ECG W/LEAST 12 LDS W/I&R 03/22/2019 12:00: 00 AM EST [facility] ([facility]) Results ID Date Data Source [id number] 02/16/2020 12:00:00 AM EST [facility] Name Value Range Interpretation Code Description Data Tere rce(s) Supporting Document(s) SARS-CoV2 Rapid Antigen [facility] and reported by [facility]. ID Date Data Source [id number] 01/19/2020 01:30:00 PM EST [facility] ([facility] Name Value Range Interpretation Code Description Data Tere rce(s) Supporting Document(s) Glucose [Mass/volume] in Capillary blood by Glucometer 131 mg/dL 83-110 Above high normal [facility] ([facility] ) ID Date Data Source [id number] 01/19/2020 01:30:00 PM EST [facility] ([facility], ) Name Value Range Interpretation Code Description Data Tere rce(s) Supporting Document(s) Glucose [Mass/volume] in Capillary blood by Glucometer 131 mg/dL 83-110 Above high normal [facility] ID Date Data Source [id number] 11/03/2019 12:10:00 PM EDT [facility] Name Value Range Interpretation Code Description Data Tere rce(s) Supporting Document(s) CULTURE URINE [facility] _CULTURE URINE_$$[id number]$$[id number]$$[id number]$$[id number]$$[id number]$$[id number]$$[id number]$$263552$$[id number]$$ [id number]$$[id number]$$[id number]$$[id number]$$[id number]$$[id number]$$[id number]$$819331$$923479$$238951$$ 241272$$928201$$918092$$[id number]$$890711$$[id number]$$[id number]$$[id number] -- Continued on next page --Patient: DARIELA Goodwin Order: [id number] Page 2Culture: CULTURE URINE Status: Final ==== -- Continued on next page --Patient: DARIELA Goodwin Order: [id number] Page 2Culture: CULTURE URINE Status: Prelim =====$$[id number]$$[id number] DATE/TIME: 11/03/2019 12:06Culture: CULTURE URINE Status: FinalUrine Culture,Comprehensive: P1No growth in 36 - 48 hours. Previous result entered on 11/02/2019 01:13 ET No growth after 18-24 hours.P1 Test performed by: Ally WEBER #: [id number] [address] [place] [address] [id number] [facility] [id number] Director : Herman Thompson MD NPI #:Lab Priscilla jeramy : [email or web address] REF 11/03/[email or web address].SENT REF ID Date Data Source [id number] 10/26/2019 01:32:35 PM EDT [facility] Name Value Range Interpretation Code Description Data Tere rce(s) Supporting Document(s) Glucose [Mass/volume] in Capillary blood by Glucometer 118 mg/dL 70- 140 [facility] ID Date Data Source [id number] 10/26/2019 11:47:26 AM EDT [facility] Name Value Range Interpretation Code Description Data Tere rce(s) Supporting Document(s) Discharge Summary [facility] [id number]/NCRgvPIBwo0YmAJtnRQl3THkpESTgI6IpFQG9zE6uNVU5BIrBGxQlDlXqSLUf [facility] RuKplJZgNhFLReXgzMZnTzLNahYjhdhADcNV9LgPP9BROjA62kEZZqIWQxX3HgXQY6NjN+Zp5UHRCmoG DqKO7DRbkH7Qufo9t4Oh6pPD0XqNWo7vMudNmsWl+N8HQb2QvwTk6B3UC2kaRLV9Zw0971+4N7rG1UHk b3yNHjm0eLeZUgJed7pqBoKJu/92587lyJ97DWx/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 [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+Jh0WEJWvDMo1J6U6KCKuRQj0A7THJ8ZRACYiZPrxRUacMOYnVGx7Z9Z6LSFeF1QPP1Chgwnsgv2+ DO0LU28GYJMyNPp6W3E2wIXmL4M5fIcTnQD7JY8XOD6TvOa8sJHkgC7+GJ4JN4GMHlXvEPi3O9D4qCYx I8C0kQzBuKP2SE5KMC9PjGNzVDKqloCeDa3rK3UURM hIUaIMWXT0CX1XpAMuEI2JmVPRF2LhnEViLp9xJPpkbCHumZ2aLt9kKYveJV4VUrGHPIrRCML5SP0GxE OvPZ2MvNMLM3EbtNKdIw7nKJnwcMObce5+JR8BIMDoBb8HXr2+KKgyjlYtJjsVKhJkHPSma6StZBq8CB 5DDR4cyYiiABW0Dz3FbPY7yHOwM5bUII3SpZBhE59b iRFzDXGpLz2RKwX3ycZcpX4FGC00dUFoj1J5GTQfT7jrYItgn52zXLqmHDwRBW4lSGKSEKvkLPtvPBY1 MgEycmzoNGGjHw9NWjPxSNv1mL1gwOI8HRN2ReeyrWHtQLpbJeViVtOnUpS1fOtsgbi3ZEosBF6uGOaf czptZXRhLyc+LRtyCYQgSOKrTdmBQRBbkR8twaI0rb EvOPrxoCOeOq8qr6f5GwpwXv2yCb7dOLa0MoXwUeKaYAVgIi9pjW27PHwjrmDhGl5QCdLrTRH5E9VsUh pSREY+IQpeLTcoyOt6cIKqHJRvLk3IWDHlOULpCWNkDDUhWMKkDRUrACBqMPKiXPCdOAEuJHBeHPYaEA AgICAgICAgICAgICAgICAgICAgICAgICAgICAgICAg ILSrNTMvQGRlDNJrZXIoVTHqNDDuTEGiHIGkBTZeHE8HHAOxUSZcUCKdJXDuFQEfWDFmCVYtIXGqITSu ICAgICAgICAgICAgICAgICAgICAgICAgICAgICAgICAgICAgICAgICAgICAgICAgICAgICAgICAgICAg EFPdAYHtKUJiGPIrNR5HDNBzBEErWHSqFBZdWRDuQS AgICAgICAgICAgICAgICAgICAgICAgICAgICAgICAgICAgICAgICAgICAgICAgICAgICAgICAgICAgIC ZfTVTuTLPwSVAnMSTtVUHuTNPrPNYbLD4FBPGoHEBbPQIgFQUcJZLvGHUmHIIbGWJrSVBaLWZmZJClIY AgICAgICAgICAgICAgICAgICAgICAgICAgICAgICAg GXGmGFFzWOZzHVFyGZJpRUEzHMJaKAEtZZPiLDUoFILqVV2VOQQqMHEeIGTnGABeMWNzKHNhDZByHEHd ICAgICAgICAgICAgICAgICAgICAgICAgICAgICAgICAgICAgICAgICAgICAgICAgICAgICAgICAgICAg LMHhCNMmMWCyDHWaXZMtVI1KSUKlHFIpESAeQSNwYN AgICAgICAgICAgICAgICAgICAgICAgICAgICAgICAgICAgICAgICAgICAgICAgICAgICAgICAgICAgIC VlADGgEXRtNPAuEQUeHHPnFGPzWLZzFRVhSY5VPBWpJUTdGTSeACXaBJAxPMVtRRRiJQGlXETbARHmPP AgICAgICAgICAgICAgICAgICAgICAgICAgICAgICAg HYSkWPOxYYMqAEXgINMyMRWzXRJoILJiXFTyZOAuGCSpGVTjZB4IVTVpUAPqHBWdVTLeKSZxIOOdCCMn ICAgICAgICAgICAgICAgICAgICAgICAgICAgICAgICAgICAgICAgICAgICAgICAgICAgICAgICAgICAg ZCFqOVKgEXWdZPNoZILiANYhQU6UZUDrLHHfLUWbPQ AgICAgICAgICAgICAgICAgICAgICAgICAgICAgICAgICAgICAgICAgICAgICAgICAgICAgICAgICAgIC PtKSCkTBIbBKFwAWCyJIWfVZStPOLaQFNyKBJfIA5GVAQjLYZdAOXrXSPfOPBxMQBrUHCaTTPrEGPoTC AgICAgICAgICAgICAgICAgICAgICAgICAgICAgICAg YMVhRWJhSXZsVLRmSWBbGQQrCNCwFILxBUToDVQoSYEiZAMtLAClYC1VBU79yQWzc0W1JRLpRL9yukx/ Sw9ICUsotsNckGCsLM4UQjDvZB4syo4CIjUtLZ3men9YWUvBJpExQ9B5yTPoHYIdNFBCKsAdK81eLSei Qy42XQslOEQpQeWgDFt5Kx6BNrAoT1itCISmEzN7SI FgXeQ7TTPuHoU7BIIkIyJnGSWmUMGkEWQkTBKZSEM5ISMnGiRpEtRiNGSzSR3EIKUiB378ftWmVv4CEs 5VRsEgWK1jno7QQNZvCZJoLyyNTtw9NRwyDC2ZxXPbkSJ7KkEzYQFCYfCoF0raf3OeREXoQFXVOMqbEM 1Gr9CqvLUgCMa+Qc7HLU4dj4PeUPe9BqPnPG3vuc2X YYoXZyExJ5VcvQzuCQCuf7QyFQKeWDPPsS2lCXZ3RBQ8MI2nlGFaLEMpOJMWkgK8tHxfDlOvVBKzFZ4g Tu7pLBGoAHT7SrI9XHKPHS3VIMLvSXDjhRDkHMQhVRPMPJ5HLJwbOZX5OWYlykUqfTEwGRarBK1TUBSs bnQgNDIgMCBSDQo+Mh1CRN9lh9VhZCm6HCXoFM2gzb 3NWHsXYmAkF2S2xPKrV2I4NYgvBd5OSSYuTCBlSENpYQRYDEfzLK8CNE7raqL4WI6HaUNrYBIhAHWthV XgJAw3C32ufRWyXRqqYE3UGRJ+Saulo+Ou4PJTWoDNSlHKGsLwSdLXYAZmAsB9NtD1XRl4UxR7QyBS31oR efwgBiQTxiLO3JMY2gLODwEJYCGY9CaWCicU9uktL3 IsCgTIRZLwOtE33qkXQhCSGaWGUeELCyYz9KBKOgQ8YhwtJgxRstouMcLZFlTMZECW3MVUwtmqRrbBRa uVxoBK22nBefHU8ECx2RElXuOH2xmx2InIOjYy7KTBT2OS9QIWReCCMpHUSkEKK1LDNoSaFzRYslEMNj KQLqNYO0SFPmQXJmPS3NPiFfWRGmBXKkDKYiMNBqPH Negh7BBMBmMBO2IaluOvHiNKZjEZNdPKamSNGlHKHsLPT5QIQlGBItHZ8BDcSkBTDsFFA6MaVbOBZfLN Gmvf9ASZNdJFKdUmU4NYGcNSCfYJHbYIolMQNdTZM0ELz3BIQvXIJwQC7QRnIfFKSdEOG6KYacUULwVD Oyps9FSSWiKVMnUXq2YQRhLYFhHDMiAMrmJRTdADJ8 BTThLMCnXSBrKN9PBoRaGNNtNMBaDgCoEYOrFQTdhd5ILWYiMCTiFQCjUEMmUMRjTUWrMKfeAOMoVNXt CbR9DUMxKRYgIX0BOwDiREUxZOO6HxIvQDEoDAHtat0EIOHtZXTqVpZ7TVDrXMEmNPYsNVokPOAiOUH8 Iiv0PKJaAWGrMK9WAqMgLMJgEVr6KGDtBOLbHJGsje 0OLLPmVCOuNgShASTzTGAvNCRmIEmkLPIpFYU4XKuoMKXxJNPpKM2CZwJwKDIoGBm4BcagWKFtVDXbbr 5HCNHmIJZkVVe4SRPuLKDsKDZzCCerYCKpHOQ9BRR4CXKcUMFqHD7LQfFkBNPlVyKwHYZvDFEoHUXdke 4PILDrBBSbMZW7SZDiCEVoUYPfCXjoGDBlPARbZzG5 JQQnDVAdLS9MXqNeQLIlEdB9OZLmRZWkCINjeo6XQNIbKJTjKRFvEPQuGPAhWIEsHMzlZHRtQSNfZTX3 FUQeMAYgKM6KIwJsKQBoYrWyXOPiCRCoWRZgbm0LDTKbZXCxYnW7GRKhZOTfGMHzAIdwLBSdCVDmCodk YEPyVYMoNC6NWnIcSPYwGeY4JuGbNLYeQUVpuk3JBO TtDDQkIYv4MPNsFCQxHKUcQQwbMMPsUEE8GUJ4HZDzSMGbCP2TLpMfLZCqMfTqBLNhEYNpDLWuwv9VRC GiRYA6PAZbZnHuRHEnLENePKepIMNoTMPaKMI1QMDjVXUeMM7BOwUuXOOdNNN3MdNrBRUvYLOowi4XKC KePLP1MUf0LIQlODDoSGFuDKhgIQOwUXNpXDA4FCZg PZWfLD5GJbDjXKTbWHJ6GbowYQXeNKYdlq0ISSCjRDK8Wrz5YYCfQADfZQAfIJvmSKGpIVDiUHG3OWKq UBQbMR0WNpGfWPNsXIKfJviqNDRdCYTdkw4VwIZslDkftq9PPXeXGz6AgAdyRTP0UMjtKu8gjSI0MUAw GPVEVl4CnpRbEJQpMYHHUYrvXVFfVIX9ZZrbRTIgUX XmWuXtIYHfX6H1XWHwNRKnQvShYWO6WiO6FwDhNyWpZXFcJhWyYlR0SRX1JEcoNBH6HBX6HZHvSeh+IF 0gDQo+[id number]== ID Date Data Source [id number] 10/26/2019 08:52:56 AM [facility] Value Range Interpretation Code Description Data Tere rce(s) Supporting Document(s) Glucose [Mass/volume] in Capillary blood by Glucometer 130 mg/dL 70- 140 [facility] ID Date Data Source [id number] 10/26/2019 06:27:32 AM [facility] Value Range Interpretation Code Description Data Tere rce(s) Supporting Document(s) Glucose [Mass/volume] in Capillary blood by Glucometer 96 mg/dL 70- 140 [facility] ID Date Data Source [id number] 10/26/2019 07:45:48 AM [facility] Value Range Interpretation Code Description Data Tere rce(s) Supporting Document(s) Bicarbonate [Moles/volume] in Serum 21 mmol/L 22-29 L [facility] Chloride [Moles/volume] in Serum or Plasma 92 mmol/L 98-107 L [facility] Creatinine [Mass/volume] in Serum or Plasma 6.21 mg/dL 0.70-1.20 H [facility] Glucose [Mass/volume] in Serum or Plasma 135 mg/dL 70-140 [facility] Potassium [Moles/volume] in Serum or Plasma 4.6 mmol/L 3.4-5.1 [facility] Sodium [Moles/volume] in Serum or Plasma 126 mmol/L 136-145 L [facility] Urea nitrogen [Mass/volume] in Serum or Plasma 74 mg/dL 8-23 H [facility] Anion gap 3 in Serum or Plasma 13 mmol/L 8-15 [facility] Osmolality of Serum or Plasma by calculation 286 mosm/kg 275-300 [facility] Creatinine/Urea nitrogen [Mass Ratio] in Serum or Plasma 12 [facility] Calcium [Mass/volume] in Serum or Plasma 8.5 mg/dL 8.8-10.2 L [facility] Glomerular filtration rate/1.73 sq M pre dicted among non-blacks [Volume Rate/Area] in Serum or Plasma by Creatinine-based formula (MDRD) 8 mL/min/1.73m2 >60 L [facility] Glomerular filtration rate/1.73 sq M pre dicted among blacks [Volume Rate/Area] in Serum or Plasma by Creatinine-based formula (MDRD) 9 mL/min/1.73m2 >60 L [facility] ID Date Data Source [id number] 10/26/2019 12:20:[address] [facility] Name Value Range Interpretation Code Description Data Tere rce(s) Supporting Document(s) Glucose [Mass/volume] in Capillary blood by Glucometer 144 mg/dL 70- 140 H [facility] ID Date Data Source [id number] 10/25/2019 05:29:30 PM [facility] Value Range Interpretation Code Description Data Tere rce(s) Supporting Document(s) Glucose [Mass/volume] in Capillary blood by Glucometer 167 mg/dL 70- 140 [facility] ID Date Data Source [id number] 10/25/2019 12:10:[address] [facility] Name Value Range Interpretation Code Description Data Tere rce(s) Supporting Document(s) Glucose [Mass/volume] in Capillary blood by Glucometer 163 mg/dL 70- 140 [facility] ID Date Data Source [id number] 10/25/2019 08:12:29 AM [facility] Value Range Interpretation Code Description Data Tere rce(s) Supporting Document(s) Glucose [Mass/volume] in Capillary blood by Glucometer 146 mg/dL 70- 140 [facility] ID Date Data Source [id number] 10/26/2019 10:12:[address] [facility] Service Cmnt XXX-Imp : NoneMicroorganism XXX Cult : Greater than 100,000 col/mlKlebsiella oxytocaATTENTION This species is always resistant to ampicillin and ticarcillin. Name Value Range Interpretation Code Description Data Tere rce(s) Supporting Document(s) ID Date Data Source [id number] 10/25/2019 05:24:30 AM [facility] Value Range Interpretation Code Description Data Tere rce(s) Supporting Document(s) Leukocytes [#/volume] in Blood by Automated count 6.5 10*3/uL 4-10 [facility] Erythrocytes [#/volume] in Blood by Automated count 2.65 10*6/uL 4.6- 6.1 L [facility] Hemoglobin [Mass/volume] in Blood 8.3 g/dL 13.5-18 L [facility] Hematocrit [Volume Fraction] of Blood by Automated count 23.9 % 4 1-53 L [facility] Erythrocyte mean corpuscular volume [Entitic volume] by Auto mated count 90.3 fL 80-96 [facility] Erythrocyte mean corpuscular hemoglobin [Entitic mass] by Automated count 31.4 pg 27-33 [facility] Erythrocyte mean corpuscular hemoglobin concentration [Mass/volume] by Automated count 34.8 g/[facility] width [Ratio] by Automated count 14.0 % 11.5-14.5 [facility] Platelets [#/volume] in Blood by Automated count 170 10*3/uL 150-400 [facility] ID Date Data Source [id number] 10/25/2019 05:43:20 AM EDT [facility] Name Value Range Interpretation Code Description Data Tere rce(s) Supporting Document(s) Bicarbonate [Moles/volume] in Serum 24 mmol/L 22-29 [facility] Chloride [Moles/volume] in Serum or Plasma 92 mmol/L 98-107 L [facility] Creatinine [Mass/volume] in Serum or Plasma 5.29 mg/dL 0.70-1.20 H [facility] Glucose [Mass/volume] in Serum or Plasma 148 mg/dL 70-140 H [facility] Potassium [Moles/volume] in Serum or Plasma 4.4 mmol/L 3.4-5.1 [facility] Sodium [Moles/volume] in Serum or Plasma 128 mmol/L 136-145 L [facility] Urea nitrogen [Mass/volume] in Serum or Plasma 63 mg/dL 8-23 H [facility] Anion gap 3 in Serum or Plasma 13 mmol/L 8-15 [facility] Osmolality of Serum or Plasma by calculation 287 mosm/kg 275-300 [facility] Creatinine/Urea nitrogen [Mass Ratio] in Serum or Plasma 12 [facility] Calcium [Mass/volume] in Serum or Plasma 8.9 mg/dL 8.8-10.2 [facility] Glomerular filtration rate/1.73 sq M pre dicted among non-blacks [Volume Rate/Area] in Serum or Plasma by Creatinine-based formula (MDRD) 9 mL/min/1.73m2 >60 L [facility] Glomerular filtration rate/1.73 sq M pre dicted among blacks [Volume Rate/Area] in Serum or Plasma by Creatinine-based formula (MDRD) 11 mL/min/1.73m2 >60 L [facility] ID Date Data Source [id number] 10/25/2019 05:35:51 AM EDT [facility] Name Value Range Interpretation Code Description Data Tere rce(s) Supporting Document(s) Color of Urine [facility] Clarity of Urine [facility] Specific gravity of Urine by Refractometry automated 1.016 1.003 -1.030 [facility] pH of Urine by Automated test strip 5.0 5.0-8.0 [facility] Protein [Mass/volume] in Urine by Automated test strip 100 mg/dL Neg [facility] Glucose [Mass/volume] in Urine by Automated test strip Neg [facility] Ketones [Mass/volume] in Urine by Automated test strip Neg [facility] Bilirubin.total [Presence] in Urine by Automated test strip Negative [facility] Hemoglobin [Presence] in Urine by Automated test strip [facility] Leukocyte esterase [Presence] in Urine by Automated test strip Negative [facility] Nitrite [Presence] in Urine by Automated test strip [facility] Leukocytes [#/area] in Urine sediment by Automated count 4613 /HPF 0 -5 H [facility] Erythrocytes [#/area] in Urine sediment by Automated count 7 /HPF 0-3 H [facility] Bacteria [#/area] in Urine sediment by Automated count Non e A [facility] ID Date Data Source [id number] 10/24/2019 10:47:30 PM EDT [facility] Value Range Interpretation Code Description Data Tere rce(s) Supporting Document(s) Glucose [Mass/volume] in Capillary blood by Glucometer 172 mg/dL 70- 140 H [facility] ID Date Data Source [id number] 10/24/2019 05:31:21 PM [facility] Value Range Interpretation Code Description Data Tere rce(s) Supporting Document(s) Glucose [Mass/volume] in Capillary blood by Glucometer 166 mg/dL 70- 140 H [facility] ID Date Data Source [id number] 10/[facility]2019 06[facility]52[facility] PRIORITYMicronatalia nis XXX Cult : 2019 nCoV Real-Time RT- PCR: NOT DETECTEDTest performed using [employer] Respiratory Panel. This test is only for use under Food and Drug Administration's Emergency Use Authorization.Additional information is available on the following FDA websites for health care providers and patients. https://www.fda.gov/media/140053/download , https://www.fda.Freebase v/media/356505/downloadPolymerase chain reaction is NEGATIVE for Influenza A H1, H3 and 2009 H1 viruses, Influenza B virus, Respiratory syncytial virus, Human metapneumovirus, Parainfluenza virus 1,2,3 and 4, Adenovirus, Rhinovirus/ Enterovirus, Coronavirus HKU1, NL63, OC43 and 229E, Bordetella pertussis, B. parapertussis, Mycoplasma pneumoniae and Chlamydia pneumoniae. Name Value Range Interpretation Code Description Data Tere rce(s) Supporting Document(s) ID Date Data Source [id number] 10/24/2019 04:48:00 [facility] PRIORITYMicronatalia [facility] XXX Cult : 2019 nCoV Real-Time RT- PCR: NOT DETECTEDTest performed using [employer] Respiratory Panel. This test is only for use under Food and Drug Administration's Emergency Use Authorization.Additional information is available on the following FDA websites for health care providers and patients. https://www.fda.gov/media/243193/download , https://www.fda.[employer]/media/360331/downloadPolymerase chain reaction is NEGATIVE for Influenza A H1, H3 and 2009 H1 viruses, Influenza B virus, Respiratory syncytial virus, Human metapneumovirus, Parainfluenza virus 1,2,3 and 4, Adenovirus, Rhinovirus/ Enterovirus, Coronavirus HKU1, NL63, OC43 and 229E, Bordetella pertussis, B. parapertussis, Mycoplasma pneumoniae and Chlamydia pneumoniae. Name Value Range Interpretation Code Description Data Tere rce(s) Supporting Document(s) Microorganism identified in Unspecified specimen by [facility] This lab was ordered by [facility] and reported by [facility]. ID Date Data Source [id number] 10/24/2019 12:03:[address] [facility] Name Value Range Interpretation Code Description Data Tere rce(s) Supporting Document(s) Glucose [Mass/volume] in Capillary blood by Glucometer 168 mg/dL 70- 140 H [facility] ID Date Data Source [id number] 10/24/2019 08:00:56 AM [facility] Value Range Interpretation Code Description Data Tere rce(s) Supporting Document(s) Glucose [Mass/volume] in Capillary blood by Glucometer 168 mg/dL 70- 140 H [facility] ID Date Data Source [id number] 10/24/2019 04:58:59 AM [facility] Value Range Interpretation Code Description Data Tere rce(s) Supporting Document(s) Bicarbonate [Moles/volume] in Serum 21 mmol/L 22-29 L [facility] Chloride [Moles/volume] in Serum or Plasma 96 mmol/L 98-107 [facility] Creatinine [Mass/volume] in Serum or Plasma 4.01 mg/dL 0.70-1.20 H [facility] Glucose [Mass/volume] in Serum or Plasma 192 mg/dL 70-140 H [facility] Potassium [Moles/volume] in Serum or Plasma 4.4 mmol/L 3.4-5.1 [facility] Sodium [Moles/volume] in Serum or Plasma 129 mmol/L 136-145 L [facility] Urea nitrogen [Mass/volume] in Serum or Plasma 42 mg/dL 8-23 H [facility] Anion gap 3 in Serum or Plasma 12 mmol/L 8-15 [facility] Osmolality of Serum or Plasma by calculation 284 mosm/kg 275-300 [facility] Creatinine/Urea nitrogen [Mass Ratio] in Serum or Plasma 10 [facility] Calcium [Mass/volume] in Serum or Plasma 8.2 mg/dL 8.8-10.2 L [facility] Glomerular filtration rate/1.73 sq M pre dicted among non-blacks [Volume Rate/Area] in Serum or Plasma by Creatinine-based formula (MDRD) 13 mL/min/1.73m2 >60 L [facility] Glomerular filtration rate/1.73 sq M pre dicted among blacks [Volume Rate/Area] in Serum or Plasma by Creatinine-based formula (MDRD) 15 mL/min/1.73m2 >60 L [facility] ID Date Data Source [id number] 10/23/2019 09:05:58 PM [facility] Value Range Interpretation Code Description Data Tere rce(s) Supporting Document(s) Glucose [Mass/volume] in Capillary blood by Glucometer 170 mg/dL 70- 140 H [facility] ID Date Data Source [id number] 10/23/2019 05:33:13 PM [facility] Value Range Interpretation Code Description Data Tere rce(s) Supporting Document(s) Glucose [Mass/volume] in Capillary blood by Glucometer 159 mg/dL 70- 140 H [facility] ID Date Data Source [id number] 10/23/2019 01:22:36 PM [facility] Value Range Interpretation Code Description Data Tere rce(s) Supporting Document(s) Glucose [Mass/volume] in Capillary blood by Glucometer 119 mg/dL 70- 140 [facility] ID Date Data Source [id number] 10/23/2019 07:23:12 AM [facility] Value Range Interpretation Code Description Data Tere rce(s) Supporting Document(s) Glucose [Mass/volume] in Capillary blood by Glucometer 127 mg/dL 70- 140 [facility] ID Date Data Source [id number] 10/23/2019 06:32:51 AM [facility] Value Range Interpretation Code Description Data Tere rce(s) Supporting Document(s) Leukocytes [#/volume] in Blood by Automated count 6.0 10*3/uL 4-10 [facility] Erythrocytes [#/volume] in Blood by Automated count 2.65 10*6/uL 4.6- 6.1 L [facility] Hemoglobin [Mass/volume] in Blood 8.3 g/dL 13.5-18 L [facility] Hematocrit [Volume Fraction] of Blood by Automated count 24.0 % 4 1-53 L [facility] Erythrocyte mean corpuscular volume [Entitic volume] by Auto mated count 90.8 fL 80-96 [facility] Erythrocyte mean corpuscular hemoglobin [Entitic mass] by Automated count 31.3 pg 27-33 [facility] Erythrocyte mean corpuscular hemoglobin concentration [Mass/volume] by Automated count 34.4 g/dL 32.0-36.0 [facility] distribution width [Ratio] by Automated count 14.0 % 11.5-14.5 [facility] Platelets [#/volume] in Blood by Automated count 101 10*3/uL 150-400 L [facility] Differential cell count method - Blood [facility] Neutrophils/100 leukocytes in Blood by Automated count 86 % [facility] Lymphocytes/100 leukocytes in Blood by Automated count 5 % [facility] Monocytes/100 leukocytes in Blood by Automated count 8 % [facility] Eosinophils/100 leukocytes in Blood by Automated count 1 % [facility] Basophils/100 leukocytes in Blood by Automated count 0 % [facility] Neutrophils [#/volume] in Blood by Automated count 5.13 10*3/uL 1.8-7 .0 [facility] Lymphocytes [#/volume] in Blood by Automated count 0.28 10*3/uL 1.2-4 .0 L [facility] Monocytes [#/volume] in Blood by Automated count 0.45 10*3/uL 0-0.8 [facility] Eosinophils [#/volume] in Blood by Automated count 0.07 10*3/uL 0-0.5 [facility] Basophils [#/volume] in Blood by Automated count 0.03 10*3/uL 0-0.2 [facility] Nucleated erythrocytes/100 leukocytes [Ratio] in Blood by Automated count 0 /100{WBCs} 0-0 [facility] ID Date Data Source [id number] 10/23/2019 06:45:10 AM [facility] Value Range Interpretation Code Description Data Tere rce(s) Supporting Document(s) Prothrombin time (PT) 17.0 s 12.5-14.9 H [facility] INR in Platelet poor plasma by Coagulation assay 1.36 [facility] Routine intensity oral anticoagulation I NR is typically 2.0-3.0. Target INR must be clinically individualized. ID Date Data Source [id number] 10/23/2019 06:45:10 AM [facility] Value Range Interpretation Code Description Data Tere rce(s) Supporting Document(s) aPTT in Platelet poor plasma by Coagulation assay 33.7 s 24.0-33. 0 H [facility] ID Date Data Source [id number] 10/23/2019 06:55:08 AM EDT [facility] Name Value Range Interpretation Code Description Data Tere rce(s) Supporting Document(s) Bicarbonate [Moles/volume] in Serum 25 mmol/L 22-29 [facility] Chloride [Moles/volume] in Serum or Plasma 97 mmol/L 98-107 L [facility] Creatinine [Mass/volume] in Serum or Plasma 5.41 mg/dL 0.70-1.20 H [facility] Glucose [Mass/volume] in Serum or Plasma 135 mg/dL 70-140 [facility] Potassium [Moles/volume] in Serum or Plasma 4.3 mmol/L 3.4-5.1 [facility] Sodium [Moles/volume] in Serum or Plasma 132 mmol/L 136-145 L [facility] Urea nitrogen [Mass/volume] in Serum or Plasma 71 mg/dL 8-23 H [facility] Anion gap 3 in Serum or Plasma 10 mmol/L 8-15 [facility] Osmolality of Serum or Plasma by calculation 297 mosm/kg 275-300 [facility] Creatinine/Urea nitrogen [Mass Ratio] in Serum or Plasma 13 [facility] Calcium [Mass/volume] in Serum or Plasma 8.8 mg/dL 8.8-10.2 [facility] Glomerular filtration rate/1.73 sq M pre dicted among non-blacks [Volume Rate/Area] in Serum or Plasma by Creatinine-based formula (MDRD) 9 mL/min/1.73m2 >60 L [facility] Glomerular filtration rate/1.73 sq M pre dicted among blacks [Volume Rate/Area] in Serum or Plasma by Creatinine-based formula (MDRD) 11 mL/min/1.73m2 >60 L [facility] ID Date Data Source [id number] 10/23/2019 06:55:[address] [facility] Name Value Range Interpretation Code Description Data Tere rce(s) Supporting Document(s) Magnesium [Mass/volume] in Serum or Plasma 1.8 mg/dL 1.6-2.4 [facility] ID Date Data Source [id number] 10/23/2019 06:55:08 AM [facility] Value Range Interpretation Code Description Data Tere rce(s) Supporting Document(s) Phosphate [Mass/volume] in Serum or Plasma 3.4 mg/dL 2.5-4.5 [facility] ID Date Data Source [id number] 10/22/2019 06:27:01 PM EDT [facility] Name Value Range Interpretation Code Description Data Tree rce(s) Supporting Document(s) Glucose [Mass/volume] in Capillary blood by Glucometer 146 mg/dL 70- 140 H [facility] ID Date Data Source [id number] 10/22/2019 12:25:41 PM EDT [facility] Name Value Range Interpretation Code Description Data Tere rce(s) Supporting Document(s) Glucose [Mass/volume] in Capillary blood by Glucometer 147 mg/dL 70- 140 H [facility] ID Date Data Source [id number] 10/22/2019 08:26:[facility] Name Value Range Interpretation Code Description Data Tere rce(s) Supporting Document(s) [facility] PKJBKp8yPoRHBmVz29/FVJycIBIio3CvCBccPFm8TZoqDUNhL7DxNIJ1zE3qMQW4YAyIAuEwAwZiNDN9 [facility] [file] ICAgICAgICAgICAgICAgICAgICAgICAgICAgICAgIC AgICAgICAgICAgICAgICAgICAgICAgICAgICAgICAgICAgICAgICAgICAgICAgDQogICAgICAgICAgIC AgICAgICAgICAgICAgICAgICAgICAgICAgICAgICAgICAgICAgICAgICAgICAgICAgICAgICAgICAgIC AgICAgICAgICAgICAgICAgICAgICAgICAgICAgDQog ICAgICAgICAgICAgICAgICAgICAgICAgICAgICAgICAgICAgICAgICAgICAgICAgICAgICAgICAgICAg ICAgICAgICAgICAgICAgICAgICAgICAgICAgICAgICAgICAgICAgDQogICAgICAgICAgICAgICAgICAg ICAgICAgICAgICAgICAgICAgICAgICAgICAgICAgIC AgICAgICAgICAgICAgICAgICAgICAgICAgICAgICAgICAgICAgICAgICAgICAgICAgDQogICAgICAgIC AgICAgICAgICAgICAgICAgICAgICAgICAgICAgICAgICAgICAgICAgICAgICAgICAgICAgICAgICAgIC AgICAgICAgICAgICAgICAgICAgICAgICAgICAgICAg DQogICAgICAgICAgICAgICAgICAgICAgICAgICAgICAgICAgICAgICAgICAgICAgICAgICAgICAgICAg ICAgICAgICAgICAgICAgICAgICAgICAgICAgICAgICAgICAgICAgICAgDQogICAgICAgICAgICAgICAg ICAgICAgICAgICAgICAgICAgICAgICAgICAgICAgIC AgICAgICAgICAgICAgICAgICAgICAgICAgICAgICAgICAgICAgICAgICAgICAgICAgICAgDQogICAgIC AgICAgICAgICAgICAgICAgICAgICAgICAgICAgICAgICAgICAgICAgICAgICAgICAgICAgICAgICAgIC AgICAgICAgICAgICAgICAgICAgICAgICAgICAgICAg ICAgDQogICAgICAgICAgICAgICAgICAgICAgICAgICAgICAgICAgICAgICAgICAgICAgICAgICAgICAg ICAgICAgICAgICAgICAgICAgICAgICAgICAgICAgICAgICAgICAgICAgICAgDQogICAgICAgICAgICAg ICAgICAgICAgICAgICAgICAgICAgICAgICAgICAgIC WyAEMcIVTdRAVqEFJuPGTxJIUuWSWwSNWgSJBwUWVhRZNzNYCuQABtAKJaDHMrHLJoXEYdCPHaEGk3U4 elHDLiHSBgYE9mFFt0Ay9+LDtRQfFlFMH9gqQywC1WLG9ab3OzEUefNYEjd2AtLIg8ZJ7IHKFjEAweSG 2PWGjyzw6VHKQcXPAwhEFIx0ltWlEqOEO7SEBlBxwx PO5UFZGgD9kmesPtODDaJOECXK9HWxLkT3KjeU07IWMEVd3+RVwcwvNtAfnKRsZ3PSYjb3HfAAc6IY2P THCjPssex4YnRUwoWJYJEIumEK9AERB3CXD7OAGmHy5UFQCjK234mmAhTU2RZt7OJlVsUU3tqr8OIEya ZRDoXnwGZpt8BZhnYB4AlTYlGVjMvEAvTAKrlyYoCm 57ARZxpNUOnSOdXALyELieI30djEJodpZdQC3YGTZ5VHbjZV3lIXPwWOW6AqBpZNTDGI9MITXtUVKswR HrWDOaZNKVUT4JDWasVMS5BKEnenEysHRkCOswLF9NXMFsvlPiNVvsMMFWBYv+Es1SJQ3yk6XmXFvhCW PdDF4mif8GDEfJDwGtM9N5oATtV0V8EAcuVd5ZPVHo MGEeDIApQOCATPxtCY7UEB2aozL5VO9PhBDuMGTbRBDsvOTzNEh6U52gpOWrNYkjZZ3HEGB+Saulo+Pg0K OMLxMVVlCPSfIcGvJRGEMdDiV7UkR5FOq5OvZ5HrKR58pZghlzOaZFolIV8MGB1cZTJmYJDQPG7KyXYe vP2cxdCjMuMhBGUJRyWgA39qbUEdWCJbYID6FXVoJu 3PWDHcY7GyekVvkLlevdZdRUQrVPUOVA6JRMglrgRqqXZqbZgqAE44xMaiQY2UIo5EYrNdOU0hlp4CoR RgAf8LPLVzSI3PMKWjKSCuWHLxVPD4BAHbWwRhGRizQOFxKLGqTSB6OJLwKCYcEU5CGdFpYZCxTVt9MQ KpEBXgVKQrgp6ZUZSyIGFoQMW4IOUfMFYcMAVjNMxq WKEcZWFgEIR3FWNtHHCiNF6OZlReARQaRDAfNNJhQAXiQULsmo7RGTIaFWVcWcL0DhKlQVVoPHCxMYnq PMSwLYX1TUW4QKCfLIPuXS4YDbJgRTSwLFJ8YGNvVGNcPDNupw1CLYWrYQFeHGb1PqWfNGGeUBZvTUst MOOmBWW8HVDdDDXyETAfLQ3AAgDsOINnVOGsGVNmXL VjDQWepe0RRXPdNPMtVaQoLICaWVBiQHYlQXkkBDUpLVW7CFk1IQWoKUUmMM0KRnKnLGIzQBmyLILyIT EcFKSvdi4FXFBrTMHfAfA2ODVgANZfPXYtDJwxCZQuOAA1FEGmMHXhKAOsEE0JJvNxCVDlSMc6RfhpOB HmKRJher4LYRKpMTAoGUKzEKQxAFHhGAVzYQuiOHLn UYN3HlLzMPZpRJGcPF4EBfFyUJqxPGUURsy2UVcqE2s0IPVdJU0CH5Xrc7ShLYjzAKBCHYgpGG7apaCe GWOcHx5HN5uEJco3KDUqTYAoWNplZrUnOElpS3KoZ0Y1TPAvTUh6CMpvFx6nGYihUFGvASM2RVKiKSWb AjT4SfDrIgMvKCJ9UPRnVHZlViZcQA3NXm8LVgR8YTV6mFFwVk7UKGtzVd1ODZIVU0AAPw== ID Date Data Source [id number] 10/22/2019 08:31:04 AM EDT [facility] Name Value Range Interpretation Code Description Data Tere rce(s) Supporting Document(s) Glucose [Mass/volume] in Capillary blood by Glucometer 176 mg/dL 70- 140 H [facility] ID Date Data Source [id number] 10/22/2019 07:06:38 AM EDT [facility] Name Value Range Interpretation Code Description Data Tere rce(s) Supporting Document(s) Leukocytes [#/volume] in Blood by Automated count 4.0 10*3/uL 4-10 [facility] Erythrocytes [#/volume] in Blood by Automated count 2.62 10*6/uL 4.6- 6.1 L [facility] Hemoglobin [Mass/volume] in Blood 8.3 g/dL 13.5-18 L [facility] Hematocrit [Volume Fraction] of Blood by Automated count 23.9 % 4 1-53 L [facility] Erythrocyte mean corpuscular volume [Entitic volume] by Auto mated count 91.0 fL 80-96 [facility] Erythrocyte mean corpuscular hemoglobin [Entitic mass] by Automated count 31.6 pg 27-33 [facility] Erythrocyte mean corpuscular hemoglobin concentration [Mass/volume] by Automated count 34.8 g/dL 32.0-36.0 [facility] width [Ratio] by Automated count 13.9 % 11.5-14.5 [facility] Platelets [#/volume] in Blood by Automated count 103 10*3/uL 150-400 L [facility] Differential cell count method - Blood [facility] Neutrophils/100 leukocytes in Blood by Automated count 80 % [facility] Lymphocytes/100 leukocytes in Blood by Automated count 9 % [facility] Monocytes/100 leukocytes in Blood by Automated count 8 % [facility] Eosinophils/100 leukocytes in Blood by Automated count 2 % [facility] Basophils/100 leukocytes in Blood by Automated count 1 % [facility] Neutrophils [#/volume] in Blood by Automated count 3.23 10*3/uL 1.8-7 .0 [facility] Lymphocytes [#/volume] in Blood by Automated count 0.35 10*3/uL 1.2-4 .0 L [facility] Monocytes [#/volume] in Blood by Automated count 0.32 10*3/uL 0-0.8 [facility] Eosinophils [#/volume] in Blood by Automated count 0.08 10*3/uL 0-0.5 [facility] Basophils [#/volume] in Blood by Automated count 0.02 10*3/uL 0-0.2 [facility] Nucleated erythrocytes/100 leukocytes [Ratio] in Blood by Automated count 0 /100{WBCs} 0-0 [facility] ID Date Data Source [id number] 10/22/2019 07:22:[address] [facility] Name Value Range Interpretation Code Description Data Tere rce(s) Supporting Document(s) Magnesium [Mass/volume] in Serum or Plasma 1.8 mg/dL 1.6-2.4 [facility] ID Date Data Source [id number] 10/22/2019 07:22:[address] [facility] Name Value Range Interpretation Code Description Data Tere rce(s) Supporting Document(s) Bicarbonate [Moles/volume] in Serum 25 mmol/L 22-29 [facility] Chloride [Moles/volume] in Serum or Plasma 98 mmol/L 98-107 [facility] Creatinine [Mass/volume] in Serum or Plasma 4.34 mg/dL 0.70-1.20 H [facility] Glucose [Mass/volume] in Serum or Plasma 174 mg/dL 70-140 H [facility] Potassium [Moles/volume] in Serum or Plasma 4.1 mmol/L 3.4-5.1 [facility] Sodium [Moles/volume] in Serum or Plasma 135 mmol/L 136-145 L [facility] Urea nitrogen [Mass/volume] in Serum or Plasma 58 mg/dL 8-23 H [facility] Anion gap 3 in Serum or Plasma 12 mmol/L 8-15 [facility] Osmolality of Serum or Plasma by calculation 300 mosm/kg 275-300 [facility] Creatinine/Urea nitrogen [Mass Ratio] in Serum or Plasma 13 [facility] Calcium [Mass/volume] in Serum or Plasma 8.5 mg/dL 8.8-10.2 L [facility] Glomerular filtration rate/1.73 sq M pre dicted among non-blacks [Volume Rate/Area] in Serum or Plasma by Creatinine-based formula (MDRD) 12 mL/min/1.73m2 >60 L [facility] Glomerular filtration rate/1.73 sq M pre dicted among blacks [Volume Rate/Area] in Serum or Plasma by Creatinine-based formula (MDRD) 14 mL/min/1.73m2 >60 L [facility] ID Date Data Source [id number] 10/22/2019 07:22:[address] [facility] Name Value Range Interpretation Code Description Data Tere rce(s) Supporting Document(s) Phosphate [Mass/volume] in Serum or Plasma 3.4 mg/dL 2.5-4.5 [facility] ID Date Data Source [id number] 10/22/2019 07:24:36 AM [facility] Value Range Interpretation Code Description Data Tere rce(s) Supporting Document(s) Prothrombin time (PT) 16.2 s 12.5-14.9 H [facility] INR in Platelet poor plasma by Coagulation assay 1.29 [facility] Routine intensity oral anticoagulation I NR is typically 2.0-3.0. Target INR must be clinically individualized. ID Date Data Source [id number] 10/22/2019 07:24:36 AM [facility] Value Range Interpretation Code Description Data Tere rce(s) Supporting Document(s) aPTT in Platelet poor plasma by Coagulation assay 29.7 s 24.0-33. 0 [facility] ID Date Data Source [id number] 10/21[facility]2019 [facility]10[facility] Interpretation Code Description Data Tere rce(s) Supporting Document(s) Glucose [Mass/volume] in Capillary blood by Glucometer 104 mg/dL 70- 140 [facility] ID Date Data Source [id number] 10/21/2019 07[facility]38:[facility] Value [facility] Interpretation Code Description Data Tere rce(s) Supporting Document(s) Glucose [Mass/volume] in Capillary blood by Glucometer 116 mg/dL 70- 140 [facility] ID Date Data Source [id number] 10/21/2019 12:43:[facility] Value Range Interpretation Code Description Data Tere rce(s) Supporting Document(s) Glucose [Mass/volume] in Capillary blood by Glucometer 121 mg/dL 70- 140 [facility] ID Date Data Source [id number] 10/21/2019 08:48:56 [facility] Value Range Interpretation Code Description Data Tere rce(s) Supporting Document(s) Glucose [Mass/volume] in Capillary blood by Glucometer 137 mg/dL 70- 140 [facility] ID Date Data Source [id number] 10/21/2019 07:05:48 AM [facility] Value Range Interpretation Code Description Data Tere rce(s) Supporting Document(s) [facility] NICUTk8sEiTTZmGky8PxIdDkGGFnJG4rnpq7K9T2vVIsP5WnlERxm4urM2GaI8IcLWLfAQUYZZ8VkGDq jb2 [file] العلي/5BJWthNx8uJiOxPsnyvJg2Sn8c9q8pCff/NH3qv9UtuJKZF7eCJGdfZUv7VzoesQ4/LGVi1IqDoYm ghld7Qb91k58mvqvfRKRMpS5FNEson7HuE5mgzEP3Zo8krxlzWytHU7rq9WBG1Ptk+++6t928AwrPh14 oO3IcShZ7YCyM3gwne02elJ2NEx9EFmzT3/TLrkqn8 z1P7wp2lsA7Zzj6+S7z1j8e8SWZ/edfDBw2w9MZj3cfSHnPniB8ZrRoUXUYmC61vtdQGyTIWual11CvZ zsd0MJIrovjm91+Pvzudpzg42ZVQ/bMZrY9714ow6Lq/coLw++uzxX+nC70px8xXXl8xR3blgABmQhUi gJLFdZM/txcvHU2Rd/00D4SXT9grUjnhdiByhOqj40 jzgo3hse2QU76Kql5lqBJfoXd7U9s9KM2/629L4E6Cvbwz/mpUC04JigwY0F9+6H5bh2h2cUkrzh/blE 8sr75z3rWc34P9D8d/g71W60cx1GvouaxEIiviQNWQ+ZdthHu5xXq1r2T+mZk7MaWUi/+nRP5o0C1/1N Eyfg0GWPONa1b9oi1o5M33Xp6QtmM349khge184x6I [file] 45y29eVk0eRTrwu3/oKs37w25o07421nIKMi++WvzZ P353VPQ7c/3yFz+922PQrrtfw/zqjPObn3/46SudN081oEeg19p//7Ad7DG8KQlh14voqq//7gP9g0Zj Sws0iHzR+u6Tz4/X2/v0wz++qej6s76QJ213+rv/dUNrRfv/09D/R48395R/8T/+4d9+96ff//Zf3/7b /3z75jd/+u+/+dOf/+vb5z/+t9/+6c9v//cnAj1wa0 774x/ext+Ov/WPon/34M5ef8P1V5uymDj6phvyx/+3/0HRzoQtjW8G/XohO98v10Lh2xo6/kXdA25Lxa 95/czlzymlxu7af39lwLmvL/SrpLefc/RHcM6890hf5k5/iCiG6en4u//22z/7dOg74twvp/mzyshk11 //9OOXj+8i9Cgf8mpq/hl7LHfauMF71i7/P/b389ID 15lsJEBnaPnlft1zL/z5b97+9Js///Zd6y+X085ak2SIf+fl3uwl3a/9tO0N/fLz2+/+8Off/un/+s2/ /4XGNy/cM40qr7x1f9b+sX/4/OPbv/6PV89/98c//EM9y767g+bVxMH+4cvf/sOXf+Lpjw4Dv+3W/rbY eN+2wRrN6haQrXBkM2m/qZbNwSR4VshB3QxpSx/15e 03//dv/+M/ghSojbV71X5+lN1vfZs4nAy2wo0UC/3zX//v2w8nxgEbk3/8xgj41Pwj/I9/+c1//O43f/ jJ/ZvTPf/uJ+Dh0ec//vH3X3/I+PvX8XR1/8d/+bpyBrrJkZIz+Or023/573/43b+8OvD1+sDGnD+51h Oh6Nr/+KKnGx5p28/88j8/z4Wr+V4btskIa/l3X0LD //gKxGK2im7/nV/+5v/47Vt6++O/ahGuzxuYWXEt3f2+9mSWcQNt4o+c4FYvvj/OzUUJY81i4/xrUOW1 pLv2/cM33/zwq0+va/TTihTg0Eo51m6JlQBw/fscmoQbiZQtMH2CJC5mf9IyKlJ1CSFxl2RoKRlwUJk3 xSHfYAdsabBry7BzbjnfK7Nxi2YkDoYzLHGtSyRbOd u1BPQhZbD9bRIwUkMdDJYkC2VaOALwYkF4NrAbJWPPRH2NOCFfhcYpVuWpYDQ+HhJvNB4cjcmoOAQtl7 GiEChoEOufOPTdZ9M8pElmKUXcR2PexR59WOAhZ0DgzyH6MIJ1PRAgAoHdYRNvlBUgYVAhJPP+PmVuZG 4lgsuoYNJmy0MlNIqjKBX4oP9fRVnWEXSJINmABAuq SmG3h50lnkPTZMLaSJFlQZ9IfcRliSrnktIztEBcSGD7QwNaXVC6WJqkTbW5GCINWONaKNNfXSBcJEDv U9McwLymLPyQLAWQNIeRRBybInBxf6O6GYNnydWTPL5XPLyGAzewG7lTBFwKAXMoHDYnFcQ6HUCpA7Km moShxWFiWHNEHJldChnhREBthM1qfYmnX1PzLRY3e2 ZyIH2SM3XzFBHcCZOKAMM1t2SgCGBlxbyamqpbErKtRQEsMTJnSZKkAR7Vgl4xbYRahtVlTIZJVEpjEg woQM0zjMyaiiwpK7YdqEUyKJO+LdNrJA6mng2+WxTeKWEyQdk9GORyFGetBTNzGADqNTOmQ3fyZDXrDk QfPBRqXkJpIV2Ov6QgbSYaBx8wwpOuRnpWnDXkOzzv VULjMFDeSODnXdVBIZUbZNIbIBTcYVP2RRYkCKWvFXfxPPJtNKzdYYTzTVMcMGHeMZ5dPcHiCMLvQnR7 USYiSWLlNSAlztVNVNLpLXG1AJI0ADHcRTMpONMuGNxsKWBpCCErOCMzPUG6YOR5WNWxHeHqSQIxKWZw HAPtCTYnTLSfnsMFSONmFXRnQWC1HDGsZMCmWRJyRR wxRQYwFIBpSTynBFIsCZDzFZ5rGoRzPHFcYNLcVOqfAVDyCCSlxqIIRLGsNGEwWSLhDZGuSYLhVFPbDE itNEDzCEVmBNZsNCHoCAUiLU5zFkPtVBKvEOA0CKUxVBOsFKWzlsUJVYIiLEFdJWh4UUXaRAOqQSIcBR vqPRQlEAGuLFX1BAKlULGmLD3yOdTbHCXeLSY2ZcWa HYOsFGNoumDKVCNsBTZnBYE7LyMqSUJhFUHoKIteWARwVGBqRXukRDXwKOAhDI8xYbDcXGMpYPAdUMcq AYIvNVZpixSUEHEuDNCcTLSpDaIuJBKiFMEwPMehPWMyPTawUMGaLVEvJDNtTU0mBtUfLHDqPOQ9EJoe MDAwMDAgbiAKMDAwMDAwMTczNCAwMDAwMCBuIAowMD ThVSLqCNI0RPZqMCGsBF1zUlSlIYFjPAIjONYeDfX5FxKzPbVHnFVucAhdqrj6AVepR8s5QYYjYVqlHF 8xztNnLXCsPlrqDd6seFZ1DMSpOjhZAp7Ri5MhucW5nsNjKmciGFa8GcTlHI2U ID Date Data Source [id number] 10/21/2019 05:49:32 AM EDT [facility] Name Value Range Interpretation Code Description Data Tere rce(s) Supporting Document(s) Leukocytes [#/volume] in Blood by Automated count 5.0 10*3/uL 4-10 [facility] Erythrocytes [#/volume] in Blood by Automated count 2.82 10*6/uL 4.6- 6.1 L [facility] Hemoglobin [Mass/volume] in Blood 9.0 g/dL 13.5-18 L [facility] Hematocrit [Volume Fraction] of Blood by Automated count 25.6 % 4 1-53 L [facility] Erythrocyte mean corpuscular volume [Entitic volume] by Auto mated count 90.6 fL 80-96 [facility] Erythrocyte mean corpuscular hemoglobin [Entitic mass] by Automated count 31.8 pg 27-33 [facility] Erythrocyte mean corpuscular hemoglobin concentration [Mass/volume] by Automated count 35.1 g/dL [facility] width [Ratio] by Automated count 13.9 % 11.5-14.5 [facility] Platelets [#/volume] in Blood by Automated count 125 10*3/uL 150-400 L [facility] Differential cell count method - Blood [facility] Neutrophils/100 leukocytes in Blood by Automated count 76 % [facility] Lymphocytes/100 leukocytes in Blood by Automated count 13 % [facility] Monocytes/100 leukocytes in Blood by Automated count 9 % [facility] Eosinophils/100 leukocytes in Blood by Automated count 1 % [facility] Basophils/100 leukocytes in Blood by Automated count 1 % [facility] Neutrophils [#/volume] in Blood by Automated count 3.85 10*3/uL 1.8-7 .0 [facility] Lymphocytes [#/volume] in Blood by Automated count 0.64 10*3/uL 1.2-4 .0 L [facility] Monocytes [#/volume] in Blood by Automated count 0.48 10*3/uL 0-0.8 [facility] Eosinophils [#/volume] in Blood by Automated count 0.06 10*3/uL 0-0.5 [facility] Basophils [#/volume] in Blood by Automated count 0.03 10*3/uL 0-0.2 [facility] Nucleated erythrocytes/100 leukocytes [Ratio] in Blood by Automated count 0 /100{WBCs} 0-0 [facility] ID Date Data Source [id number] 10/21/2019 05:55:00 AM EDT [facility] Name Value Range Interpretation Code Description Data Tere rce(s) Supporting Document(s) Prothrombin time (PT) 16.0 s 12.5-14.9 H [facility] INR in Platelet poor plasma by Coagulation assay 1.27 [facility] Routine intensity oral anticoagulation I NR is typically 2.0-3.0. Target INR must be clinically individualized. ID Date Data Source [id number] 10/21/2019 05:55:00 AM [facility] Value Range Interpretation Code Description Data Tere rce(s) Supporting Document(s) aPTT in Platelet poor plasma by Coagulation assay 28.7 s 24.0-33. 0 [facility] ID Date Data Source [id number] 10/21/2019 05:59:06 AM [facility] Value Range Interpretation Code Description Data Tere rce(s) Supporting Document(s) Bicarbonate [Moles/volume] in Serum 24 mmol/L 22-29 [facility] Chloride [Moles/volume] in Serum or Plasma 99 mmol/L 98-107 [facility] Creatinine [Mass/volume] in Serum or Plasma 3.16 mg/dL 0.70-1.20 H [facility] Glucose [Mass/volume] in Serum or Plasma 174 mg/dL 70-140 H [facility] Potassium [Moles/volume] in Serum or Plasma 4.1 mmol/L 3.4-5.1 [facility] Hemolyzed Sodium [Moles/volume] in Serum or Plasma 135 mmol/L 136-145 L [facility] Urea nitrogen [Mass/volume] in Serum or Plasma 41 mg/dL 8-23 H [facility] Anion gap 3 in Serum or Plasma 12 mmol/L 8-15 [facility] Osmolality of Serum or Plasma by calculation 294 mosm/kg 275-300 [facility] Creatinine/Urea nitrogen [Mass Ratio] in Serum or Plasma 13 [facility] Calcium [Mass/volume] in Serum or Plasma 8.8 mg/dL 8.8-10.2 [facility] Glomerular filtration rate/1.73 sq M pre dicted among non-blacks [Volume Rate/Area] in Serum or Plasma by Creatinine-based formula (MDRD) 18 mL/min/1.73m2 >60 L [facility] Glomerular filtration rate/1.73 sq M pre dicted among blacks [Volume Rate/Area] in Serum or Plasma by Creatinine-based formula (MDRD) 20 mL/min/1.73m2 >60 L [facility] ID Date Data Source [id number] 10/21/2019 05:59:06 AM [facility] Value Range Interpretation Code Description Data Tere rce(s) Supporting Document(s) Magnesium [Mass/volume] in Serum or Plasma 1.9 mg/dL 1.6-2.4 [facility] ID Date Data Source [id number] 10/[facility]2019 05:59:[facility] Name Value Range Interpretation Code Description Data Tere rce(s) Supporting Document(s) Phosphate [Mass/volume] in Serum or Plasma 3.6 mg/dL 2.5-4.5 [facility] ID Date Data Source [id number] 10/25/2019 05:49:[address] [facility] Surgical Pathology ReportName: JOSE ANTONIO LYLEMRN: [id number] Number: [id number] Date: 10/21/2019 00:00Received Date: 10/23/2019 09:09Physician(s): MICKEY PLATA MD SHAW, PALMA M,MDSpecimen(s) ReceivedA: Left arm hematomaClinical HistoryHematoma. DiagnosisBLOOD , LEFT ARM, EXCISION: ORGANIZING BLOOD CLOT. Roshni Agrawal MD;Resident PathologistElectronically Signed By Devin Arguello M.D., Attending Pathologist10/25/2019 17:49:01The attending pathologist named above attests that he/she has personallyreviewed the relevant preparation(s) for the specimen, performedmicroscopic examination when indicated, and rendered the final diagnosis.Unless 'gross-only' is specified, the final diagnosis is based on amicroscopic examination of international representative sections of tissue.Gross DescriptionThe specimen is received in formalin labeled with the patient's name"Jose Anotnio Lyle" and "left arm hematoma". It consists of a 10.0 x 8.0 x4.0 cm aggregate of red-brown clot. The cut surfaces are glistening andred-brown. [place] sections are submitted in one cassette. MW/pmwThis report may include one or more immunohistochemical stain results thatuse analyte specific reagents. All positive and negative controls havebeen reviewed by the attending pathologist and are satisfactory. The testswere developed and their performance characteristics determined by [facility] Pathology department. They have not been cleared or approved by the USFood and Drug Administration. The FDA has determined that such clearanceor approval is not necessary. Name Value Range Interpretation Code Description Data Tere rce(s) Supporting Document(s) ID Date Data Source [id number] 10/20/2019 11:29:[address] [facility] Name Value Range Interpretation Code Description Data Tere rce(s) Supporting Document(s) Glucose [Mass/volume] in Capillary blood by Glucometer 152 mg/dL 70- 140 H [facility] ID Date Data Source [id number] 10/20/2019 05:22:[address] [facility] Name Value Range Interpretation Code Description Data Tere rce(s) Supporting Document(s) Glucose [Mass/volume] in Capillary blood by Glucometer 172 mg/dL 70- 140 H [facility] ID Date Data Source [id number] 10/20/2019 05:18:[address] [facility] Name Value Range Interpretation Code Description Data Tere rce(s) Supporting Document(s) History and Physical [facility] UPGOGt1qRbEDOfJr02/IWGwcGGXjp9SpJQcuPXg6FMasBJOzX7MxGFV1lM6bWSN4MLrATaOdKpDgJNV9 lbm [file] [id number] ID Date Data Source [id number] 10/20/2019 02:17:22 PM EDT [facility] Name Value Range Interpretation Code Description Data Tere rce(s) Supporting Document(s) Glucose [Mass/volume] in Capillary blood by Glucometer 139 mg/dL 70- 140 [facility] ID Date Data Source [id number] [facility] Interpret[facility] Code Description Data Tere rce(s) Supporting Document(s) Glucose [Mass/volume] in Capillary blood by Glucometer 124 mg/dL 70- 140 [facility] ID Date Data Source [id number] 10/20/2019 11:11:00 AM EDT [facility] Value Range Interpretation Code Description Data Tere rce(s) Supporting Document(s) Consultation [facility] NZXHKi7hKpREWaKr01/CLDzpWYTan9ReDUveJJi6WWpcKWWpR0RbCFY8sW1wEEI2ATeOZgKgCeSmGLC6 lbm [file] [facility]+YjC6vm8AeB83Dtp4w2w+U08PfH8JAdR6L8ob6HjL1hWkYmHBemcKOCsvabXLNV00qA6zer9Q [file] J5SDYjOCPdB2YpKyPcRnXaAL8YYh1WUrF7GVG6lODiFx1LJNI2BUGRKbGvBY5ECLu= ID Date Data Source [id number] 10/20/2019 09:09:41 AM EDT [facility] Name Value Range Interpretation Code Description Data Tere rce(s) Supporting Document(s) Glucose [Mass/volume] in Capillary blood by Glucometer 172 mg/dL 70- 140 H [facility] ID Date Data Source [id number] 10/20/2019 07:08:55 AM EDT [facility] Name Value Range Interpretation Code Description Data Tere rce(s) Supporting Document(s) Consultation [facility] YBPNUj9xOiTECsVt57/HFZosPOLdo2VlJWthHBa7NGziRSZlU0DdCOY8hU9fHAS7TDeVPnGmPaFgGZK8 lbm [file] UcTJHE/O33qGcw30h+0Kt8/fi6ZSN8Cw67AFBsA56bkXeib/4d2274EkfSnYXU1Bc19q51/C30eo/embroiderer hand [file] [id number] ID Date Data Source [id number] 10/20/2019 04:40:[address] [facility] Name Value Range Interpretation Code Description Data Tere rce(s) Supporting Document(s) Glucose [Mass/volume] in Capillary blood by Glucometer 172 mg/dL 70- 140 H [facility] ID Date Data Source [id number] 10/20/2019 03:24:[address] [facility] Name Value Range Interpretation Code Description Data Tere rce(s) Supporting Document(s) Leukocytes [#/volume] in Blood by Automated count 4.1 10*3/uL 4-10 [facility] Erythrocytes [#/volume] in Blood by Automated count 3.10 10*6/uL 4.6- 6.1 L [facility] Hemoglobin [Mass/volume] in Blood 10.0 g/dL 13.5-18 L [facility] Hematocrit [Volume Fraction] of Blood by Automated count 28.4 % 4 1-53 L [facility] Erythrocyte mean corpuscular volume [Entitic volume] by Auto mated count 91.7 fL 80-96 [facility] Erythrocyte mean corpuscular hemoglobin [Entitic mass] by Automated count 32.2 pg 27-33 [facility] Erythrocyte mean corpuscular hemoglobin concentration [Mass/volume] by Automated count 35.1 g/dL [facility] width [Ratio] by Automated count 14.1 % 11.5-14.5 [facility] Platelets [#/volume] in Blood by Automated count 118 10*3/uL 150-400 L [facility] Differential cell count method - Blood [facility] Neutrophils/100 leukocytes in Blood by Automated count 93 % [facility] Lymphocytes/100 leukocytes in Blood by Automated count 4 % [facility] Monocytes/100 leukocytes in Blood by Automated count 2 % [facility] Eosinophils/100 leukocytes in Blood by Automated count 0 % [facility] Basophils/100 leukocytes in Blood by Automated count 1 % [facility] Neutrophils [#/volume] in Blood by Automated count 3.83 10*3/uL 1.8-7 .0 [facility] Lymphocytes [#/volume] in Blood by Automated count 0.14 10*3/uL 1.2-4 .0 L [facility] Monocytes [#/volume] in Blood by Automated count 0.07 10*3/uL 0-0.8 [facility] Eosinophils [#/volume] in Blood by Automated count 0.01 10*3/uL 0-0.5 [facility] Basophils [#/volume] in Blood by Automated count 0.02 10*3/uL 0-0.2 [facility] Nucleated erythrocytes/100 leukocytes [Ratio] in Blood by Automated count 0 /100{WBCs} 0-0 [facility] ID Date Data Source [id number] 10/20/2019 03:35:[address] [facility] Name Value Range Interpretation Code Description Data Tere rce(s) Supporting Document(s) Prothrombin time (PT) 16.8 s 12.5-14.9 H [facility] INR in Platelet poor plasma by Coagulation assay 1.35 [facility] Routine intensity oral anticoagulation I NR is typically 2.0-3.0. Target INR must be clinically individualized. ID Date Data Source [id number] 10/20/2019 03:35:[address] [facility] Name Value Range Interpretation Code Description Data Tere rce(s) Supporting Document(s) aPTT in Platelet poor plasma by Coagulation assay 30.6 s 24.0-33. 0 [facility] ID Date Data Source [id number] 10/20/2019 03:41:[address] [facility] Name Value Range Interpretation Code Description Data Tere rce(s) Supporting Document(s) Bicarbonate [Moles/volume] in Serum 25 mmol/L 22-29 [facility] Chloride [Moles/volume] in Serum or Plasma 103 mmol/L 98-107 [facility] Creatinine [Mass/volume] in Serum or Plasma 3.36 mg/dL 0.70-1.20 H [facility] Glucose [Mass/volume] in Serum or Plasma 183 mg/dL 70-140 H [facility] Potassium [Moles/volume] in Serum or Plasma 4.4 mmol/L 3.4-5.1 [facility] Sodium [Moles/volume] in Serum or Plasma 143 mmol/L 136-145 [facility] Urea nitrogen [Mass/volume] in Serum or Plasma 54 mg/dL 8-23 H [facility] Anion gap 3 in Serum or Plasma 15 mmol/L 8-15 [facility] Osmolality of Serum or Plasma by calculation 315 mosm/kg 275-300 H [facility] Creatinine/Urea nitrogen [Mass Ratio] in Serum or Plasma 16 [facility] Calcium [Mass/volume] in Serum or Plasma 9.2 mg/dL 8.8-10.2 [facility] Glomerular filtration rate/1.73 sq M pre dicted among non-blacks [Volume Rate/Area] in Serum or Plasma by Creatinine-based formula (MDRD) 16 mL/min/1.73m2 >60 L [facility] Glomerular filtration rate/1.73 sq M pre dicted among blacks [Volume Rate/Area] in Serum or Plasma by Creatinine-based formula (MDRD) 19 mL/min/1.73m2 >60 L [facility] ID Date Data Source [id number] 10/20/2019 03:41:51 AM [facility] Value Range Interpretation Code Description Data Tere rce(s) Supporting Document(s) Magnesium [Mass/volume] in Serum or Plasma 1.8 mg/dL 1.6-2.4 [facility] ID Date Data Source [id number] 10/20/2019 03:41:51 AM EDT [facility] Name Value Range Interpretation Code Description Data Tere rce(s) Supporting Document(s) Phosphate [Mass/volume] in Serum or Plasma 4.3 mg/dL 2.5-4.5 [facility] ID Date Data Source [id number] 10/20/2019 02:35:[address] [facility] [address] ANGIOGRAPHY UPPER EXTREMITY [id number] L RESULTInterpreted by:CLOTILDE NationROCEDURE INFORMATION: Exam: CTA Left Upper Extremity With Contrast Exam date and time: 10/20/2019 12:45 AM Age: 74 years old Clinical indication: Other: 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 3D rendering: MIP and/or 3D reconstructed images were created by the technologist. Radiation optimization: All CT scans at this facility use at least one of these dose optimization techniques: automated exposure control; mA and/or kV adjustment per patient size (includes targeted exams where dose is matched to clinical indication); or iterative reconstruction. Contrast material: OMNI 320 VISI; Contrast volume: 100 ml; Contrast route: INTRAVENOUS (IV); COMPARISON: No relevant prior studies available. FINDINGS: There is an apparent AV fistula in the medial aspect of the upper arm. There is a long segment of marked venous narrowing beginning near the anastomosis. There is a 3.5 cm pseudoaneurysm arising lateral to the anastomosis in the mid upper arm. 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 THIS DOCUMENT HAS BEEN ELECTRONICALLY SIGNED BY JEREMÍAS HERNANDEZ MDThis document has been electronically signed by Jeremías Hernandez MD on 10/20/2019 2:34 AM Name Value Range Interpretation Code Description Data Tere rce(s) Supporting Document(s) ID Date Data Source [id number] 10/19/2019 11:23:[address] [facility] Name Value Range Interpretation Code Description Data Tere rce(s) Supporting Document(s) Glucose [Mass/volume] in Capillary blood by Glucometer 166 mg/dL 70- 140 H [facility] ID Date Data Source [id number] 10/19/2019 09:13:05 PM EDT [facility] Name Value Range Interpretation Code Description Data Tere rce(s) Supporting Document(s) ED Provider Note [facility] HKGQRf0pFqIKTqIx58/YJIicUXMyw9XwUYenMQj6NCfaZRIfS1QbYXT9sU4nZPN2RHwLZbJyKgPyHQL4 lbm [file] dLtitx2qTp6Mdx2Dnr1D/DKmpNpbzQ86giB0pZCeXmNBTtEdPGGiDwrNFA7s8/Ph/Piece Goods Clerk+EZ9rb5rwJQkC 0lsGjWOf3nSrHpVpg59PJI4P/vojILZwzGLt/xk3hG0zun3VwhImtUY7pZqFmGl5vJE7mQPIzc7b116v YVmDB4zRVhSMecbbX2RiKcslUnFGDzCEPgHFgH+3hv lULRfz3joI4qun7CI9iBaUhiBeGt6fNyNApiz8T+WRzQe9DFrcdrDL55Q0+rFSe2KgoKHqriQM8kVCiQ 4jtZG+IwsqoU2/bT5dE4yfM+H8MhXQHEsBY2sskzIlLig+dx6fW94rqncY4QPR0bf2LvEJJdLKumlzNg FehEDqheIDKkDceSJaRgYOmYQqMdECIzUBylAW0AYQ qnEEukYQXaG4RrryRgeYCzDIIiNi4FEWZbCP5QKGGmfUEdVKOzPwDpPYULCqZtTVXtXZOtvKZMf2mxCo NbKDU4ZXObYnshZV6JSOObNQ8Kk040HC39ykE7ALNwYn2GOEIaSQ8Nbd70sNV6TYNnEpAgALSdioSkYH JrwbG9KS5BXuLxMGR8tWDxKslZPE8PWSZntMGkLW8J IGZhbHNlID4+DQogID4+CHbwwsCxCmfRIxWnIDBti5UoPTlpCOi8B3ChwKSttjPwOjtclJXZSBKvFHMx R7mljnq8eDXgEJHfYe2JHiFjj2IgEHXhMTsDcr9g7J1aCs2/P+D+l9zhIzMZ4LlfRUKjPby8MNb1xtQ+ PUxwujqHyxDMY53Im//6rvbDFpnxz+LuqHGBxAgser jXXpdbXCaGpZO5k/+wdlwXNhmkw33TOYEG4Ly23j/mGg0n80PtOtQm+8+Js6JOB4EGwU89XEpUNCzkAm P1+1V5ID5aSXtzAzSS8Eqvs4I+mA8+rX2J1F6+ztJxtvrxR/EV5RiW3MMjvcmi1HuQ+KJ9F8Y8qSEUvG uqMwxWZcARlbal7ACSm7+/+Iglesia/9ng9r2mOtTjTS+v [file] AwMDAzMjYzMSAwMDAwMCBuDQowMDAwMDMyODMzIDAw BMWwIV1VBqPzAJBvXmIoNqFcQHEiJDSfbb5CJHGqLLYpAhb7WDPsSPEcNDCaVQckRVPnXMG6IHx4NHTo CGBfFR2UCzGsMRJlMpThTkUkARUpBPVdwa8UUIOfFIN1OJy0YvZpANJyFNZuWFwtBXSyAUY8NGQ9NWKo WCFhHT0NJyRzIKGgLZHwHsKvPZApMTBpao7SIEYmTS T8KfLfXzErAZOtKCOlFKmeRFRqYCS9WgA3LFPxHTAnBH7BEnApYDMvIGb0TBNmZMPgBCUkxj4CBLIuAO Y1Unx5WRFiLVXsBANaCTwwVBEgQYI4SEU2ICPiWJZlWI1SDjNfYLWnKLl9CKKnUGGjTFGfue6GHFLrBZ J1XIijTNHgACEsAQZtMRbrQMZmLUP1IPvyXHCmRNCf WF7VTcFhSUKsPDKhDIYyGYMdJCAmqe8OWMYfKJL3XWOfQXCfHHPkANPpNMikVICfHDNzZEH0CTPpSLPz FT5UVoAhICWjHBM9ACVvKNSrUQMebx0BOMQpYDH6ZCz0DnRhBZYtXQNiRHfbBHUbALMcTNV8FAQzXOKn XM4HXuKcJCQpMTBhWdUsWWKlOWGuri0ZKMWoCWR2PE EkPqGoXCZnSXDjOGgkTTPrTIRqRQqaLVRmERRmUJ8ARdTpCKcxIGFGHya4GNavQ7c0VZN5ML9EH5Itq8 NnYMPuNWOPKHwvJJ4ckcQfLGZiCx9OF1tATaqkPfChZdKxEYRuDeb6CCHfZBY8LqYwZjk3QTDoXLLyID 5xCLN9R0TzOOYeRwQsDLv5LyWlZZodBLQnMuJzXbO4 LSP7IgAmLU9QVl2XBeD5BQD5hMHpMg8AUFH1VMNIWxKjDW5SUMi= ID Date Data Source [id number] 10/19/2019 07:31:49 PM EDT [facility] Name Value Range Interpretation Code Description Data Tere rce(s) Supporting Document(s) ED Provider Note [facility] VLZBCe4rCtFHMnMu31/XYThyXQSwg8MbWMpsNOw3GWfaLBImF3EwZAS5fB7zIAU2HBvXVgYsSeHfLZB9 lbm [file] Hb8Ab9HzmrW3lzEzDGxkBKZbMA0BYVPST8FPUl== ID Date Data Source [id number] 10/20/2019 02:18:[address] [facility] Name Value Range Interpretation Code Description Data Tere rce(s) Supporting Document(s) Hemoglobin A1c/Hemoglobin.total in Blood by HPLC 6.5 % 4.0-6.0 H [facility] (NOTE)<5.7% Average risk of diabetes (ADA)5.7-6.4% Increased risk of diabetes(ADA)>/= 6.5% Diagnostic for diabetes(ADA) Glucose mean value [Mass/volume] in Blood Estimated fr om glycated hemoglobin 139 mg/dL <126 H [facility] ID Date Data Source [id number] 10/19/2019 04:34:[address] [facility] Name Value Range Interpretation Code Description Data Tere rce(s) Supporting Document(s) Leukocytes [#/volume] in Blood by Automated count 5.1 10*3/uL 4-10 [facility] Erythrocytes [#/volume] in Blood by Automated count 3.44 10*6/uL 4.6- 6.1 L [facility] Hemoglobin [Mass/volume] in Blood 10.7 g/dL 13.5-18 L [facility] Hematocrit [Volume Fraction] of Blood by Automated count 31.4 % 4 1-53 L [facility] Erythrocyte mean corpuscular volume [Entitic volume] by Auto mated count 91.3 fL 80-96 [facility] Erythrocyte mean corpuscular hemoglobin [Entitic mass] by Automated count 31.1 pg 27-33 [facility] Erythrocyte mean corpuscular hemoglobin concentration [Mass/volume] by Automated count 34.1 g/dL 32.0-[facility] distribution width [Ratio] by Automated count 14.2 % 11.5-14.5 [facility] Platelets [#/volume] in Blood by Automated count 128 10*3/uL 150-400 L [facility] Differential cell count method - Blood [facility] Neutrophils/100 leukocytes in Blood by Automated count 85 % [facility] Lymphocytes/100 leukocytes in Blood by Automated count 7 % [facility] Monocytes/100 leukocytes in Blood by Automated count 6 % [facility] Eosinophils/100 leukocytes in Blood by Automated count 1 % [facility] Basophils/100 leukocytes in Blood by Automated count 1 % [facility] Neutrophils [#/volume] in Blood by Automated count 4.31 10*3/uL 1.8-7 .0 [facility] Lymphocytes [#/volume] in Blood by Automated count 0.38 10*3/uL 1.2-4 .0 L [facility] Monocytes [#/volume] in Blood by Automated count 0.31 10*3/uL 0-0.8 [facility] Eosinophils [#/volume] in Blood by Automated count 0.05 10*3/uL 0-0.5 [facility] Basophils [#/volume] in Blood by Automated count 0.04 10*3/uL 0-0.2 [facility] Nucleated erythrocytes/100 leukocytes [Ratio] in Blood by Automated count 0 /100{WBCs} 0-0 [facility] ID Date Data Source [id number] 10/19/2019 04:54:03 PM [facility] Value Range Interpretation Code Description Data Tere rce(s) Supporting Document(s) Prothrombin time (PT) 16.7 s 12.5-14.9 H [facility] INR in Platelet poor plasma by Coagulation assay 1.34 [facility] Routine intensity oral anticoagulation I NR is typically 2.0-3.0. Target INR must be clinically individualized. ID Date Data Source [id number] 10/19/2019 04:54:03 PM EDT [facility] Name Value Range Interpretation Code Description Data Tere rce(s) Supporting Document(s) aPTT in Platelet poor plasma by Coagulation assay 30.6 s 24.0-33. 0 [facility] ID Date Data Source [id number] 10/19/2019 05:05:48 PM EDT [facility] Name Value Range Interpretation Code Description Data Tere rce(s) Supporting Document(s) Albumin [Mass/volume] in Serum or Plasma by Bromocresol green (BCG) dye binding method 4.1 g/dL 3.5-5.2 [facility] Bilirubin.total [Mass/volume] in Serum or Plasma 0.6 mg/dL <1.2 [facility] Calcium [Mass/volume] in Serum or Plasma 9.5 mg/dL 8.8-10.2 [facility] Chloride [Moles/volume] in Serum or Plasma 100 mmol/L 98-107 [facility] Creatinine [Mass/volume] in Serum or Plasma 3.22 mg/dL 0.70-1.20 H [facility] Glucose [Mass/volume] in Serum or Plasma 164 mg/dL 70-140 H [facility] Alkaline phosphatase [Enzymatic activity/volume] in Serum or Plasma 65 U/L 40-129 [facility] Potassium [Moles/volume] in Serum or Plasma 4.7 mmol/L 3.4-5.1 [facility] Hemolyzed Protein [Mass/volume] in Serum or Plasma 6.7 g/dL 6.4-8.3 [facility] Sodium [Moles/volume] in Serum or Plasma 140 mmol/L 136-145 [facility] Aspartate aminotransferase [Enzymatic activity/volume] in Serum or Plasma 20 U/L <40 [facility] Hemolyzed Urea nitrogen [Mass/volume] in Serum or Plasma 52 mg/dL 8-23 H [facility] Osmolality of Serum or Plasma by calculation 307 mosm/kg 275-300 H [facility] Creatinine/Urea nitrogen [Mass Ratio] in Serum or Plasma 16 [facility] Bicarbonate [Moles/volume] in Serum 25 mmol/L 22-29 [facility] Alanine aminotransferase [Enzymatic activity/volume] in Seru m or Plasma 11 U/L <41 [facility] Hemolyzed Anion gap 3 in Serum or Plasma 15 mmol/L 8-15 [facility] Glomerular filtration rate/1.73 sq M pre dicted among non-blacks [Volume Rate/Area] in Serum or Plasma by Creatinine-based formula (MDRD) 17 mL/min/1.73m2 >60 L [facility] Glomerular filtration rate/1.73 sq M pre dicted among blacks [Volume Rate/Area] in Serum or Plasma by Creatinine-based formula (MDRD) 20 mL/min/1.73m2 >60 L [facility] ID Date Data Source [id number] 10/19/2019 03:25:08 PM EDT [facility] Name Value Range Interpretation Code Description Data Tere rce(s) Supporting Document(s) Glucose [Mass/volume] in Capillary blood by Glucometer 148 mg/dL 70- 140 H [facility] ID Date Data Source [id number] 10/19/2019 09:00:00 AM EDT [facility] ([facility] Name Value Range Interpretation Code Description Data Tere e(s) Supporting Document(s) Glucose, Fasting 203 mg/dL 70-100 Above high normal M [facility] ([facility] Creatinine For GFR 3.54 mg/dL 0.70-1.30 Above high normal [facility] ([facility] Blood Urea Nitrogen 50 mg/dL 7-18 Above high normal [facility] ([facility] Potassium Serum 3.6 meq/L 3.5-5.1 Normal (applies to non-numeric results) [facility] ([facility] Sodium Level 140 meq/L 136-145 Normal (applies to non-numeric res ults) [facility] ([facility] Glomerular Filtration Rate 18.0 Below low normal [facility] ([facility] <content>Units are mL/min/1.73 m2</content>
<content></content>
<content>Chronic Kidney Disease Staging per NKF:</content>
<content></content>
<content>Stage I & II GFR >=60 Normal to Mildly Decreased</content>
<content>Stage III GFR 30- 59 Moderately Decreased</content>
<content>Stage IV GFR 15-29 Severely Decreased</content>
<content>Stage V GFR <15 Very Little GFR Left</content>
<content>ESRD GFR <15 on TOP CARRIER</content>
<content></content> Carbon Dioxide Level 29 meq/L 21-32 Normal (applies to non-num milena results) [facility] ([facility] Chloride Level 104 meq/L 98-107 Normal (applies to non-numeric r esults) [facility] ([facility] Anion Gap 7 meq/L 8-16 Below low normal [facility] Alt/SGPT 18 U/L 12-78 Normal (applies to non-numeric resul ts) [facility] ([facility] Calcium Level 9.1 mg/dL 8.8-10.2 Normal (applies to non-numeric re sults) [facility] ([facility] Ast/Sgot 10 U/L 7-37 Normal (applies to non-numeric resul ts) [facility] ([facility] Total Protein 6.5 GM/DL 6.4-8.2 Normal (applies to non-numeric re sults) [facility] ([facility] Alkaline Phosphatase 91 U/L 45-117 Normal (applies to non-num milena results) [facility] ([facility] Bilirubin,Total 0.6 mg/dL 0.2-1.0 Normal (applies to non-numeric results) [facility] ([facility] Albumin 3.5 GM/DL 3.2-5.2 Normal (applies to non-numeric resul ts) [facility] ([facility] Albumin/Globulin Ratio 1.2 Normal (applies to non-n umeric results) [facility] ([facility] ID Date Data Source [id number] 10/19/2019 09:00:00 AM EDT [facility] ([facility] Name Value Range Interpretation Code Description Data Tere rce(s) Supporting Document(s) White Blood Count 4.2 10 4.0-10.0 Normal (applies to non-numeri c results) [facility] ([facility] Hemoglobin 10.4 g/dL 13.5-17.5 Below low normal [facility] ( [facility] Red Blood Count 3.36 10 4.30-6.10 Below low normal [facility] ([facility] Mean Corpuscular Hemoglobin 31.0 pg 27.0-33.0 Norm al (applies to non-numeric results) [facility] ([facility] ) Hematocrit 31.7 % 42.0-52.0 Below low normal [facility] ( [facility] Mean Corpuscular Volume 94.3 fl 80.0-96.0 Normal ( applies to non-numeric results) [facility] ([facility] ) Red Cell Distribution Width 12.9 % 11.5-14.5 Norm al (applies to non-numeric results) [facility] ([facility] ) Mean Corpuscular HGB Conc 32.8 g/dL 32.0-36.5 Normal (applies to non-numeric results) [facility] ([facility] ) Platelet Count, Automated 118 10 150-450 Below low normal [facility] ([facility] Neutrophils % 78.2 % 36.0-66.0 Above high normal [facility] ([facility] Lymph % 11.7 % 24.0-44.0 Below low normal [facility] ( [facility] Lagrange % 7.2 % 0.0-5.0 Above high normal [facility] ([facility] Immature Granulocyte % 0.2 % 0-3.0 Normal (applies to non-n umeric results) [facility] ([facility] Eos % 2.2 % 0.0-3.0 Normal (applies to non-numeric resul ts) [facility] ([facility] Baso % 0.5 % 0.0-1.0 Normal (applies to non-numeric resul ts) [facility] ([facility] Lymph # 0.5 10 1.5-5.0 Below low normal [facility] ( [facility] Nucleated Red Blood Cell % 0.0 % 0-0 Normal (applies to n on-numeric results) [facility] ([facility] Neutrophils # 3.3 10 1.5-8.5 Normal (applies to non-numeric re sults) [facility] ([facility] Lagrange # 0.3 10 0.0-0.8 Normal (applies to non-numeric resul ts) [facility] Baso # 0.0 10 0.0-0.2 Normal (applies to non-numeric resul ts) [facility] ([facility] Eos # 0.1 10 0.0-0.5 Normal (applies to non-numeric resul ts) [facility] ID Date Data Source [id number] 10/19/2019 09:00:00 AM EDT [facility] ([facility] Name Value Range Interpretation Code Description Data Tere rce(s) Supporting Document(s) Inr 1.39 Normal (applies to non-numeric resul ts) [facility] ([facility] THERAPUTIC HUMAN INR VALUES INDICATIONS NORMAL RANGES PROPHYLAXIS/TREATMENT OF: VENOUS THROMBOSIS 2.0-3.0 PULMONARY EMBOLISM 2.0-3.0 PREVENTION OF SYSTEMIC EMBOLISM FROM: TISSUE HEART VALVES 2.0-3.0 ACUTE MYOCARDIAL INFARCTION 2.0-3.0 VALVULAR HEART DISEASE 2.0-3.0 ATRIAL FIBRILLATION 2.0-3.0 MECHANICAL VALVES(HIGH RISK) 2.5-3.5 RECURRENT MYOCARDIAL INFARCTION 2.5-3.5 Prothrombin Time 17.4 s 11.8-14.0 Above high normal [facility] ([facility] ID Date Data Source [id number] 10/19/2019 09:00:00 AM EDT [facility] ([facility] Name Value Range Interpretation Code Description Data Tere rce(s) Supporting Document(s) Blood Culture Laboratory test result [facility] ([facility] No growth after 72 hours . All specimens observed for 5 days. Results final at that time. No growth after 48 hours . All specimens observed for 5 days. Results final at that time. No growth after 24 hours . All specimens observed for 5 days. Results final at that time. NO GROWTH AFTER 5 DAYS ID Date Data Source [id number] 09/29/2019 01:00:00 PM EDT [facility] Name Value Range Interpretation Code Description Data Tere rce(s) Supporting Document(s) Glucose [Mass/volume] in Capillary blood by Glucometer 106 mg/dL 83-110 Normal (applies to non-numeric results) [facility] ([facility] ID Date Data Source [id number] 09/29/2019 01:00:00 PM EDT [facility] ([facility], ) Name Value Range Interpretation Code Description Data Tere rce(s) Supporting Document(s) Glucose [Mass/volume] in Capillary blood by Glucometer 106 mg/dL 83-110 Normal (applies to non-numeric results) [facility] ([facility]) ID Date Data Source [id number] 09/13/2019 03:32:00 PM EDT [facility] ([facility] Name Value Range Interpretation Code Description Data Tere rce(s) Supporting Document(s) Bacteria identified in Unspecified specimen by Aerobe culture Laboratory test result [facility] ([facility] SRC: LEFT LEG Bacteria identified in Unspecified specimen by Culture Laborator y test result [facility] ([facility] ) SRC: LEFT LEG ID Date Data Source [id number] 09/07/2019 01:55:00 PM EDT [facility] ([facility] Name Value Range Interpretation Code Description Data Tere rce(s) Supporting Document(s) WBC 4.0 10E3/uL 4.1-10.9 Below low normal [facility] ([facility] NORMAL RANGES Age WBC RBC HGB HCT [...] HCT IS 5% LESS SOURCE FOR DATA: [facility] 1800 OPERATION MANUAL( AUTOMATED BLOOD COUNTS AND DIFF.) APPENDIX B-3 RBC 3.93 10E6/uL 4.20-6.30 Below low normal [facility] ([facility] NORMAL RANGES Age WBC RBC HGB HCT MCV PLT Adult M 4.1-10.9 4.20-6.30 12.0-18.0 37.0-51.0 80-97 140-440 Adult F 4.1-10.9 4.04-5.48 12.0-18.0 37.0-51.0 140440 0 -1 Yr 5.0-20.0 3.9-5.9 15-18 MV: [...] HCT IS 5% LESS SOURCE FOR DATA: [facility] 1800 OPERATION MANUAL( AUTOMATED BLOOD COUNTS AND DIFF.) APPENDIX B-3 HGB 12.6 g/dL 12.0-18.0 [facility] NORMAL RANGES Age WBC RBC HGB HCT MCV PLT Adult M 4.1-10.9 4.20-6.30 12.0-18.0 37.0-51.0 140440 Adult F 4.1-10.9 4.04-5.48 12.0-18.0 37.0-51.0 140440 0 -1 Yr 5.0-20.0 3.9-5.9 15-18 MV: [...] HCT IS 5% LESS SOURCE FOR DATA: [facility] 1800 OPERATION MANUAL( AUTOMATED BLOOD COUNTS AND DIFF.) APPENDIX B-3 MCH 32.1 pg 26.0-32.0 Above high normal [facility] ([facility] NORMAL RANGES Age WBC RBC HGB HCT [...] AUTOMATED BLOOD COUNTS AND DIFF.) APPENDIX B-3 MCV 92.6 fL 80.0-97.0 [facility] ([facility] NORMAL RANGES Age WBC RBC HGB HCT [...] AUTOMATED BLOOD COUNTS AND DIFF.) APPENDIX B-3 HCT 36.4 % 37.0-51.0 Below low normal [facility] ( [facility] NORMAL RANGES Age WBC RBC HGB HCT [...] AUTOMATED BLOOD COUNTS AND DIFF.) APPENDIX B-3 RDW-CV 13.7 % 11.5-14.5 [facility] ([facility] NORMAL RANGES Age WBC RBC HGB HCT [...] HCT IS 5% LESS SOURCE FOR DATA: [facility] 1800 OPERATION MANUAL( AUTOMATED BLOOD COUNTS AND DIFF.) APPENDIX B-3 MCHC 34.6 g/dL 31.0-36.0 [facility] ([facility] NORMAL RANGES Age WBC RBC HGB HCT [...] HCT IS 5% LESS SOURCE FOR DATA: [facility] 1800 OPERATION MANUAL( AUTOMATED BLOOD COUNTS AND DIFF.) APPENDIX B-3 PLT 154 10E3/uL 140-440 [facility] ([facility] NORMAL RANGES Age WBC RBC HGB HCT [...] AUTOMATED BLOOD COUNTS AND DIFF.) APPENDIX B-3 Neut% 71.2 % 37.0-92.0 [facility] ([facility] NORMAL RANGES Age WBC RBC HGB HCT [...] AUTOMATED BLOOD COUNTS AND DIFF.) APPENDIX B-3 Lym% 19.5 % 10.0-58.5 [facility] ([facility] NORMAL RANGES Age WBC RBC HGB HCT [...] AUTOMATED BLOOD COUNTS AND DIFF.) APPENDIX B-3 Neut# 2.8 % 2.0-7.8 [facility] ([facility] NORMAL RANGES Age WBC RBC HGB HCT [...] HCT IS 5% LESS SOURCE FOR DATA: [facility] 1800 OPERATION MANUAL( AUTOMATED BLOOD COUNTS AND DIFF.) APPENDIX B-3 MXD% 9.3 % 0.1-24.0 [facility] NORMAL RANGES Age WBC RBC HGB HCT [...] HCT IS 5% LESS SOURCE FOR DATA: [facility] 1800 OPERATION MANUAL( AUTOMATED BLOOD COUNTS AND DIFF.) APPENDIX B-3 Lym# 0.8 10E3/uL 0.6-4.1 [facility] ([facility] NORMAL RANGES Age WBC RBC HGB HCT MCV PLT Adult M 4.1-10.9 4.20-6.30 12.0-18.0 37.0-51.0 80 140-440 Adult F 4.1-10.9 4.04-5.48 12.0-18.0 37.0-51.0 80 140-440 0 -1 Yr 5.0-20.0 3.9-5.9 15-18 [...] HCT IS 5% LESS SOURCE FOR DATA: [facility] 1800 OPERATION MANUAL( AUTOMATED BLOOD COUNTS AND DIFF.) APPENDIX B-3 MPV 10.7 fL 9.0-13.0 [facility] NORMAL RANGES Age WBC RBC HGB HCT MCV PLT Adult M 4.1-10.9 4.20-6.30 12.0-18.0 37.0-51.0 80 140-440 Adult F 4.1-10.9 4.04-5.48 12.0-18.0 37.0-51.0 80 140-440 0 -1 Yr 5.0-20.0 3.9-5.9 15-18 [...] HCT IS 5% LESS SOURCE FOR DATA: [facility] 1800 OPERATION MANUAL( AUTOMATED BLOOD COUNTS AND DIFF.) APPENDIX B-3 MXD# 0.4 10E3/uL 0.0-1.8 [facility] ([facility] NORMAL RANGES Age WBC RBC HGB HCT [...] AUTOMATED BLOOD COUNTS AND DIFF.) APPENDIX B-3 ID Date Data Source [id number] 09/07/2019 08:09:00 AM EDT [facility] ([facility]) Name Value Range Interpretation Code Description Data Tere rce(s) Supporting Document(s) White Blood Count 4.0 4.1-10.9 [facility] ([facility]) Red Blood Count 3.93 4.20-6.30 [facility] ([facility]) Hematocrit 36.4 [facility] ([facility]) Platelets 154 140-440 [facility] Hemoglobin 12.6 [facility] ([facility]) ID Date Data Source [id number] 07/28/2019 03:23:00 PM EDT [facility] ([facility]) Name Value Range Interpretation Code Description Data Tere rce(s) Supporting Document(s) Glucose [Mass/volume] in Capillary blood by Glucometer 155 mg/dL 83-110 Above high normal [facility] ([facility]) ID Date Data Source [id number] 07/28/2019 03:23:00 PM EDT [facility] ([facility] Name Value Range Interpretation Code Description Data Tere rce(s) Supporting Document(s) Glucose [Mass/volume] in Capillary blood by Glucometer 155 mg/dL 83-110 Above high normal [facility] ([facility] ID Date Data Source [id number] 07/28/2019 01:05:00 PM EDT [facility] ([facility]) Name Value Range Interpretation Code Description Data Tere rce(s) Supporting Document(s) Glucose [Mass/volume] in Capillary blood by Glucometer 204 mg/dL 83-110 Above high normal [facility] ([facility]) ID Date Data Source [id number] 07/28/2019 01:05:00 PM EDT [facility] ([facility] Name Value Range Interpretation Code Description Data Tere rce(s) Supporting Document(s) Glucose [Mass/volume] in Capillary blood by Glucometer 204 mg/dL 83-110 Above high normal [facility] ([facility] ) ID Date Data Source [id number] 06/16/2019 12:00:00 AM EDT [facility] Roshni Gaitan [facility] Patient Name: JOSE ANTONIO [id number] Judy [facility] 1945[facility] [address] Date of Exam: 06/16/2019PH#: Fax: [phone] EXAM: CHEST (2 VIEW) X-RAYCLINICAL INFORMATION: Cough and dyspnea.Two views. These images were obtained using digital radiography.Comparison, multiples, the latest 05/07/2019.The tip of the central venous catheter remains in the superior vena cava.Note is again made of previous median sternotomy. The heart is minimallyenlarged. There are chronic basilar changes, status quo. No acute patchyparenchymal opacities or pleural effusions have developed. There is nosignificant change in the appearance of the osseous structures. Chronicthickening is again seen involving the fissures, status quo.IMPRESSION:There has been no significant change from the prior exam. Evidence ofbibasilar scarring/subsegmental atelectatic changes/subtle pleuraleffusions. Mild stable interstitial edema cannot be ruled out.GRACIA Giang/Isidra you for referring JOSE ANTONIO LYLE to our office. Electronically Signed - AKI CROWLEY DO 06/19/19 14:52 Name Value Range Interpretation Code Description Data Tere rce(s) Supporting Document(s) ID Date Data Source [id number] 06/05/2019 12:00:00 AM EDT [facility] Roshni Gaitan Rpa Patient Name: RICO LYLE [facility] [place] [facility] 1945[place] [address] Date of Exam: 06/05/2019PH#: Fax: [phone] EXAM: CHEST (2 VIEW) X-RAYCLINICAL INFORMATION: Shortness of breath, cough, nausea.Two views.Comparison 03/04/2019.There are small bilateral pleural effusions. There is mild bibasilaratelectasis/infiltrate. Upper lung zones are clear. Heart is upper limitsof normal in size. Mediastinal silhouette is unchanged. Multiple sternalwires and mediastinal clips are present. Right central venous catheter isagain noted. There are mild degenerative changes of the spine.IMPRESSION:Small bilateral pleural effusions. There is mild bibasilaratelectasis/infiltrate.MALATHI Delgado/Isidra you for referring JOSE ANTONIO LYLE to our office. Electronically Signed - RONEL LANE MD 06/06/19 15:10 Name Value Range Interpretation Code Description Data Tere rce(s) Supporting Document(s) ID Date Data Source [id number] 03/28/2019 06:13:00 AM EST [facility] ([facility] Name Value Range Interpretation Code Description Data Tere rce(s) Supporting Document(s) Glucose [Mass/volume] in Capillary blood by Glucometer 113 mg/dL 83-110 Above high normal [facility] ([facility] ID Date Data Source [id number] 03/28/2019 06:13:00 AM EST [facility] ([facility], ) Name Value Range Interpretation Code Description Data Tere rce(s) Supporting Document(s) Glucose [Mass/volume] in Capillary blood by Glucometer 113 mg/dL 83-110 Above high normal [facility] ([facility], ) ID Date Data Source [id number] 03/28/2019 05:50:00 AM EST [facility] ([facility] Name Value Range Interpretation Code Description Data Tere rce(s) Supporting Document(s) Creatinine For GFR 4.07 mg/dL 0.70-1.30 Above high normal [facility] ([facility] Blood Urea Nitrogen 47 mg/dL 7-18 Above high normal [facility] ([facility] Glucose, Fasting 121 mg/dL 70-100 Above high normal [facility] ([facility] Glomerular Filtration Rate 15.4 Below low normal [facility] ([facility] <content>Units are mL/min/1.73 m2</content>
<content></content>
<content>Chronic Kidney Disease Staging per NKF:</content>
<content></content>
<content>Stage I & II GFR >=60 Normal to Mildly Decreased</content>
<content>Stage III GFR 30- 59 Moderately Decreased</content>
<content>Stage IV GFR 15-29 Severely Decreased</content>
<content>Stage V GFR <15 Very Little GFR Left</content>
<content>ESRD GFR <15 on TOP CARRIER</content>
<content></content> Potassium Serum 4.0 meq/L 3.5-5.1 Normal (applies to non-numeric results) [facility] ([facility] Chloride Level 101 meq/L 98-107 Normal (applies to non-numeric r esults) [facility] ([facility] Sodium Level 136 meq/L 136-145 Normal (applies to non-numeric res ults) [facility] ([facility] Calcium Level 9.5 mg/dL 8.8-10.2 Normal (applies to non-numeric re sults) [facility] ([facility] Anion Gap 6 meq/L 8-16 Below low normal [facility] ( [facility] Carbon Dioxide Level 29 meq/L 21-32 Normal (applies to non-num milena results) [facility] ([facility] Phosphorus Level 3.5 mg/dL 2.5-4.9 Normal (applies to non-numeric results) [facility] ([facility] Albumin 3.3 GM/DL 3.2-5.2 Normal (applies to non-numeric resul ts) [facility] ([facility] ID Date Data Source [id number] 03/28/2019 05:50:00 AM EST [facility] ([facility] Name Value Range Interpretation Code Description Data Tere rce(s) Supporting Document(s) White Blood Count 4.4 10 4.0-10.0 Normal (applies to non-numeri c results) [facility] ([facility] Hemoglobin 10.5 g/dL 13.5-17.5 Below low normal [facility] ( [facility] Red Blood Count 3.53 10 4.30-6.10 Below low normal [facility] ([facility] Mean Corpuscular Volume 92.6 fl 80.0-96.0 Normal ( applies to non-numeric results) [facility] ([facility] ) Mean Corpuscular Hemoglobin 29.7 pg 27.0-33.0 Norm al (applies to non-numeric results) [facility] ([facility] ) Hematocrit 32.7 % 42.0-52.0 Below low normal [facility] ( [facility] Mean Corpuscular HGB Conc 32.1 g/dL 32.0-36.5 Normal (applies to non-numeric results) [facility] Red Cell Distribution Width 13.9 % 11.5-14.5 Norm al (applies to non-numeric results) [facility] ([facility] Platelet Count, Automated 137 10 150-450 Below low normal [facility] ([facility] Nucleated Red Blood Cell % 0.0 % 0-0 Normal (applies to n on-numeric results) [facility] ([facility] ID Date Data Source [id number] 03/28/2019 05:50:00 AM EST [facility] ([facility]) Name Value Range Interpretation Code Description Data Tere rce(s) Supporting Document(s) Glucose, Fasting 121 mg/dL 70-100 Above high normal [facility] Creatinine For GFR 4.07 mg/dL 0.70-1.30 Above high normal [facility] ([facility]) Glomerular Filtration Rate 15.4 Below low normal [facility] ([facility]) <content>Units are mL/min/1.73 m2</content>
<content></content>
<content>Chronic Kidney Disease Staging per NKF:</content>
<content></content>
<content>Stage I & II GFR >=60 Normal to Mildly Decreased</content>
<content>Stage III GFR 30- 59 Moderately Decreased</content>
<content>Stage IV GFR 15-29 Severely Decreased</content>
<content>Stage V GFR <15 Very Little GFR Left</content>
<content>ESRD GFR <15 on TOP [facility]ER</content>
<content></content> Blood Urea Nitrogen 47 mg/dL 7-18 Above high normal [facility] ([facility]) Sodium Level 136 meq/L 136-145 Normal (applies to non-numeric res ults) [facility] ([facility]) Potassium Serum 4.0 meq/L 3.5-5.1 Normal (applies to non-numeric results) [facility] ([facility]) Carbon Dioxide Level 29 meq/L 21-32 Normal (applies to non-num milena results) [facility] ([facility]) Anion Gap 6 meq/L 8-16 Below low normal [facility] ( [facility]) Chloride Level 101 meq/L 98-107 Normal (applies to non-numeric r esults) [facility] ([facility]) Calcium Level 9.5 mg/dL 8.8-10.2 Normal (applies to non-numeric re sults) [facility] ([facility]) Albumin 3.3 GM/DL 3.2-5.2 Normal (applies to non-numeric resul ts) [facility]) Phosphorus Level 3.5 mg/dL 2.5-4.9 Normal (applies to non-numeric results) [facility] ([facility]) ID Date Data Source [id number] 03/28/2019 05:50:00 AM EST [facility] ([facility]) Name Value Range Interpretation Code Description Data Tere rce(s) Supporting Document(s) White Blood Count 4.4 10 4.0-10.0 Normal (applies to non-numeri c results) [facility] ([facility]) Red Blood Count 3.53 10 4.30-6.10 Below low normal [facility] ([facility]) Hemoglobin 10.5 g/dL 13.5-17.5 Below low normal [facility] ( [facility]) Hematocrit 32.7 % 42.0-52.0 Below low normal [facility] ( [facility]) Mean Corpuscular Volume 92.6 fl 80.0-96.0 Normal ( applies to non-numeric results) [facility]) Mean Corpuscular Hemoglobin 29.7 pg 27.0-33.0 Norm al (applies to non-numeric results) [facility]) Red Cell Distribution Width 13.9 % 11.5-14.5 Norm al (applies to non-numeric results) [facility] ([facility]) Platelet Count, Automated 137 10 150-450 Below low normal [facility] ([facility]) Mean Corpuscular HGB Conc 32.1 g/dL 32.0-36.5 Normal (applies to non-numeric results) [facility] ([facility]) Nucleated Red Blood Cell % 0.0 % 0-0 Normal (applies to n on-numeric results) [facility] ([facility]) ID Date Data Source [id number] 03/27/2019 08:55:00 PM EST [facility] ([facility]) Name Value Range Interpretation Code Description Data Tere rce(s) Supporting Document(s) Glucose [Mass/volume] in Capillary blood by Glucometer 212 mg/dL 83-110 Above high normal [facility] ([facility]) ID Date Data Source [id number] 03/27/2019 08:55:00 PM EST [facility] ([facility] Name Value Range Interpretation Code Description Data Tere rce(s) Supporting Document(s) Glucose [Mass/volume] in Capillary blood by Glucometer 212 mg/dL 83-110 Above high normal [facility] ([facility] ) ID Date Data Source [id number] 03/27/2019 05:26:00 PM EST [facility] ([facility]) Name Value Range Interpretation Code Description Data Tere rce(s) Supporting Document(s) Glucose [Mass/volume] in Capillary blood by Glucometer 150 mg/dL 83-110 Above high normal [facility] ([facility]) ID Date Data Source [id number] 03/27/2019 05:26:00 PM EST [facility] ([facility] Name Value Range Interpretation Code Description Data Tere rce(s) Supporting Document(s) Glucose [Mass/volume] in Capillary blood by Glucometer 150 mg/dL 83-110 Above high normal [facility] ([facility] ) ID Date Data Source [id number] 03/27/2019 11:35:00 AM EST [facility] ([facility]) Name Value Range Interpretation Code Description Data Tere rce(s) Supporting Document(s) Glucose [Mass/volume] in Capillary blood by Glucometer 129 mg/dL 83-110 Above high normal [facility] ([facility]) ID Date Data Source [id number] 03/27/2019 11:35:00 AM EST [facility] ([facility] Name Value Range Interpretation Code Description Data Tere rce(s) Supporting Document(s) Glucose [Mass/volume] in Capillary blood by Glucometer 129 mg/dL 83-110 Above high normal [facility] ([facility] ) ID Date Data Source [id number] 03/27/2019 10:42:00 AM EST [facility] ([facility]) Name Value Range Interpretation Code Description Data Tere rce(s) Supporting Document(s) Potassium [Moles/volume] in Serum or Plasma 3.8 meq/L 3.5- 5.1 Normal (applies to non-numeric results) [facility] ([facility], ) By: CEDSA Time: 1030 By: CEDSA Time: 1030 ID Date Data Source [id number] 03/27/2019 10:42:00 AM EST [facility] ([facility] Name Value Range Interpretation Code Description Data Tere rce(s) Supporting Document(s) Potassium [Moles/volume] in Serum or Plasma 3.8 meq/L 3.5- 5.1 Normal (applies to non-numeric results) [facility] ([facility] By: CEDSA Time: 1030 By: CEDSA Time: 1030 Procedure Social History Code Duration Value Status Description Data Source(s ) Smoking 05/08/2020 12:00:00 AM EST Never Smoked A Pipe complet ed Never Smoked A Pipe [facility] ([facility]) Smoking 05/01/2020 12:00:00 AM EST Patient has never smoked co mpleted Patient has never smoked [facility] ([facility] Alcohol intake 10/20/2019 12:00:00 AM EDT Current non-d cami of alcohol (finding) completed Current non-drinker of alcohol (finding) [facility] Tobacco use and exposure 10/20/2019 12:00:00 AM EDT Never used co mpleted Never used [facility] Smoking 10/20/2019 12:00:00 AM EDT Never smoker completed Never s [facility] Vital Signs ID Date Data Source [id number] Name Value Range Interpretation Code Description Data Source(s) Heart rate 67 /min 67 /min [facility] ([facility]) Body mass index (BMI) [Ratio] 20.5 kg/m2 20.5 k g/m2 [facility] ([facility]) Body height 74 [in_i] 74 [in_i] [facility]) 6'2" Body weight 160.00 [lb_av] 160.00 [lb_av] [facility] T ([facility]) Oxygen saturation in Arterial blood by Pulse oximetry 98 % 98 % [facility] ([facility] Body mass index (BMI) [Ratio] 21.7 kg/m2 21.7 k g/m2 [facility] ([facility] [place] body weight 178 [lb_av] 178 [lb_av] [facility] T ([facility] Body weight 160.00 [lb_av] 160.00 [lb_av] [facility] T ([facility] Body height 72 [in_i] 72 [in_i] [facility] ([facility] 6'0" Respiratory rate 16 /min 16 /min [facility] ( [facility] Heart rate 73 /min 73 /min [facility] Body temperature 97.3 [degF] 97.3 [degF] [facility] ([facility] Diastolic blood pressure 86 mm[Hg] 86 mm[Hg] [facility] ([facility] Systolic blood pressure 142 mm[Hg] 142 mm[Hg] M ED[facility] ([facility] Body surface area Derived from formula 1.95 m2 1.95 m2 [facility] ([facility], ) Body weight 72.179 kg 72.179 kg [facility] ([facility], ) [place] body weight 184 [lb_av] 184 [lb_av] [facility] T ([facility], ) Body mass index (BMI) [Ratio] 21.0 kg/m2 21.0 k g/m2 [facility] ([facility], ) Body weight 159.12 [lb_av] 159.12 [lb_av] [facility] T ([facility]) Body height 73 [in_i] 73 [in_i] [facility] 6'1" Diastolic blood pressure 100 mm[Hg] 100 mm[Hg] [facility] ([facility]) Systolic blood pressure 200 mm[Hg] 200 mm[Hg] [facility] ([facility]) Body surface area Derived from formula 1.94 m2 1.94 m2 [facility] ([facility]) Body weight 71.385 kg 71.385 kg [facility] ([facility]) [place] body weight 184 [lb_av] 184 [lb_av] [facility] T ([facility]) Body mass index (BMI) [Ratio] 20.8 kg/m2 20.8 k g/m2 [facility] ([facility]) Body weight 157.38 [lb_av] 157.38 [lb_av] [facility] ([facility]) Body height 73 [in_i] 73 [in_i] [facility]) 6'1" Diastolic blood pressure 98 mm[Hg] 98 mm[Hg] [facility] ([facility]) Systolic blood pressure 188 mm[Hg] 188 mm[Hg] [facility] ([facility]) Body surface area Derived from formula 1.95 m2 1.95 m2 [facility] ([facility]) Body weight 72.179 kg 72.179 kg [facility] ([facility]) [place] body weight 184 [lb_av] 184 [lb_av] [facility] ([facility]) Body mass index (BMI) [Ratio] 21.0 kg/m2 21.0 k g/m2 [facility] ([facility]) Body weight 159.12 [lb_av] 159.12 [lb_av] [facility] ([facility]) Body height 73 [in_i] 73 [in_i] [facility]) 6'1" Diastolic blood pressure 83 mm[Hg] 83 mm[Hg] [facility] ([facility] ) Systolic blood pressure 182 mm[Hg] 182 mm[Hg] [facility] ([facility]) Oxygen saturation in Arterial blood by Pulse oximetry 98 % 98 % [facility] ([facility] Body mass index (BMI) [Ratio] 22.2 kg/m2 22.2 k g/m2 [facility] ([facility] [place] body weight 178 [lb_av] 178 [lb_av] [facility] T ([facility] Body weight 164.00 [lb_av] 164.00 [lb_av] [facility] T ([facility] Body height 72 [in_i] 72 [in_i] [facility] ([facility] 6'0" Respiratory rate 18 /min 18 /min [facility] ( [facility] Heart rate 90 /min 90 /min [facility] ([facility] Body temperature 98.3 [degF] 98.3 [degF] [facility] ([facility] Diastolic blood pressure 70 mm[Hg] 70 mm[Hg] [facility] ([facility] right arm Systolic blood pressure 142 mm[Hg] 142 mm[Hg] [facility] right arm Body weight 76.205 kg 76.205 kg [facility] ([facility]) [place] body weight 184 [lb_av] 184 [lb_av] [facility] T ([facility]) Body mass index (BMI) [Ratio] 22.2 kg/m2 22.2 k g/m2 [facility] ([facility]) Body weight 168.00 [lb_av] 168.00 [lb_av] [facility] T ([facility]) Body height 73 [in_i] 73 [in_i] [facility] ([facility]) 6'1" Diastolic blood pressure 80 mm[Hg] 80 mm[Hg] [facility] ([facility]) Systolic blood pressure 199 mm[Hg] 199 mm[Hg] [facility] ([facility]) Body weight 74.901 kg 74.901 kg [facility] ([facility]) Body mass index (BMI) [Ratio] 21.8 kg/m2 21.8 k g/m2 [facility] ([facility]) Body weight 165.12 [lb_av] 165.12 [lb_av] [facility] T ([facility]) Body height 73 [in_i] 73 [in_i] [facility] ([facility]) 6'1" Diastolic blood pressure 60 mm[Hg] 60 mm[Hg] [facility] ([facility]) Systolic blood pressure 118 mm[Hg] 118 mm[Hg] M [facility] ([facility]) Diastolic blood pressure--sitting 70 mm[Hg] 70 mm[Hg] [facility] ([facility]) adult cuff, Ra Systolic blood pressure--sitting 144 mm[Hg] 144 mm[Hg] [facility] ([facility]) adult cuff, Ra Heart rate 75 /min 75 /min [facility] ([facility]) Body mass index (BMI) [Ratio] 21.1 kg/m2 21.1 k g/m2 [facility] ([facility]) Body height 74 [in_i] 74 [in_i] [facility] ([facility]) 6'2" Body weight 164.00 [lb_av] 164.00 [lb_av] [facility] ([facility]) Oxygen saturation in Arterial blood by Pulse oximetry 98 % 98 % [facility] ([facility] Body mass index (BMI) [Ratio] 22.2 kg/m2 22.2 k g/m2 [facility] ([facility] [place] body weight 178 [lb_av] 178 [lb_av] [facility] ([facility] Body weight 164.00 [lb_av] 164.00 [lb_av] [facility] ([facility] Body height 72 [in_i] 72 [in_i] [facility] ([facility] 6'0" Respiratory rate 16 /min 16 /min [facility] ( [facility] Heart rate 98 /min 98 /min [facility] ([facility] Body temperature 97.5 [degF] 97.5 [degF] [facility] ([facility] Diastolic blood pressure 74 mm[Hg] 74 mm[Hg] [facility] ([facility] Systolic blood pressure 110 mm[Hg] 110 mm[Hg] M [facility] ([facility] Oxygen saturation in Arterial blood by Pulse oximetry 98 % 98 % [facility] ([facility] Body mass index (BMI) [Ratio] 22.1 kg/m2 22.1 k g/m2 [facility] ([facility] Body weight 163.00 [lb_av] 163.00 [lb_av] [facility] ([facility] Body height 72 [in_i] 72 [in_i] [facility] ([facility] 6'0" Respiratory rate 16 /min 16 /min [facility] ( [facility] Heart rate 96 /min 96 /min [facility] ([facility] Body temperature 97.3 [degF] 97.3 [degF] [facility] ([facility] Diastolic blood pressure 72 mm[Hg] 72 mm[Hg] [facility] ([facility] Systolic blood pressure 136 mm[Hg] 136 mm[Hg] M [facility] ([facility] Oxygen saturation in Arterial blood by Pulse oximetry 98 % 98 % [facility] ([facility] Body mass index (BMI) [Ratio] 22.5 kg/m2 22.5 k g/m2 [facility] ([facility] Body weight 166.00 [lb_av] 166.00 [lb_av] [facility] ([facility] Body height 72 [in_i] 72 [in_i] [facility] ([facility] 6'0" Respiratory rate 16 /min 16 /min [facility] ( [facility] Heart rate 84 /min 84 /min [facility] ([facility] Body temperature 97.0 [degF] 97.0 [degF] [facility] Diastolic blood pressure 88 mm[Hg] 88 mm[Hg] [facility] ([facility] Systolic blood pressure 140 mm[Hg] 140 mm[Hg] [facility] ([facility] Body weight 75.978 kg 75.978 kg [facility] ([facility], ) Body mass index (BMI) [Ratio] 22.1 kg/m2 22.1 k g/m2 [facility] ([facility]) Body weight 167.50 [lb_av] 167.50 [lb_av] [facility] ([facility]) Body height 73 [in_i] 73 [in_i] [facility] ([facility]) 6'1" Diastolic blood pressure 74 mm[Hg] 74 mm[Hg] [facility] ([facility]) Systolic blood pressure 162 mm[Hg] 162 mm[Hg] [facility] ([facility]) Oxygen saturation in Arterial blood by Pulse oximetry 98 % 98 % [facility] ([facility] Body mass index (BMI) [Ratio] 22.4 kg/m2 22.4 k g/m2 [facility] ([facility] Body weight 165.00 [lb_av] 165.00 [lb_av] [facility] ([facility] Body height 72 [in_i] 72 [in_i] [facility] ([facility] 6'0" Respiratory rate 16 /min 16 /min [facility] ( [facility] Heart rate 96 /min 96 /min [facility] ([facility] Body temperature 97.1 [degF] 97.1 [degF] [facility] ([facility] Diastolic blood pressure 68 mm[Hg] 68 mm[Hg] [facility] ([facility] Systolic blood pressure 140 mm[Hg] 140 mm[Hg] [facility] ([facility] Body weight 74.617 kg 74.617 kg [facility] ([facility]) Body mass index (BMI) [Ratio] 21.7 kg/m2 21.7 k g/m2 [facility] ([facility]) Body weight 164.50 [lb_av] 164.50 [lb_av] [facility] ([facility]) Body height 73 [in_i] 73 [in_i] [facility] 6'1" Diastolic blood pressure 72 mm[Hg] 72 mm[Hg] [facility] ([facility]) Systolic blood pressure 114 mm[Hg] 114 mm[Hg] [facility] ([facility]) Body weight 76.205 kg 76.205 kg [facility] ([facility]) Body mass index (BMI) [Ratio] 22.2 kg/m2 22.2 k g/m2 [facility] ([facility]) Body weight 168.00 [lb_av] 168.00 [lb_av] [facility] ([facility]) Body height 73 [in_i] 73 [in_i] [facility] 6'1" Body temperature 97.5 [degF] 97.5 [degF] [facility] ([facility]) Diastolic blood pressure 70 mm[Hg] 70 mm[Hg] [facility] ([facility]) Systolic blood pressure 160 mm[Hg] 160 mm[Hg] [facility] ([facility]) Body weight 74.050 kg 74.050 kg [facility] ([facility]) Body mass index (BMI) [Ratio] 21.5 kg/m2 21.5 k g/m2 [facility] ([facility]) Body weight 163.25 [lb_av] 163.25 [lb_av] [facility] ([facility]) Body height 73 [in_i] 73 [in_i] [facility] 6'1" Body temperature 97.7 [degF] 97.7 [degF] [facility] ([facility]) Diastolic blood pressure 80 mm[Hg] 80 mm[Hg] [facility] ([facility]) Systolic blood pressure 145 mm[Hg] 145 mm[Hg] [facility] Oxygen saturation in Arterial blood by Pulse oximetry 96 % 96 % [facility] ([facility] Body mass index (BMI) [Ratio] 22.8 kg/m2 22.8 k g/m2 [facility] ([facility] Body weight 168.00 [lb_av] 168.00 [lb_av] [facility] ([facility] Body height 72 [in_i] 72 [in_i] [facility] ([facility] 6'0" Respiratory rate 16 /min 16 /min [facility] Heart rate 88 /min 88 /min [facility] ([facility] Body temperature 98.0 [degF] 98.0 [degF] [facility] Diastolic blood pressure 72 mm[Hg] 72 mm[Hg] [facility] Systolic blood pressure 134 mm[Hg] 134 mm[Hg] [facility] Body weight 76.885 kg 76.885 kg [facility] ([facility]) Body mass index (BMI) [Ratio] 22.4 kg/m2 22.4 k g/m2 [facility] ([facility]) Body weight 169.50 [lb_av] 169.50 [lb_av] [facility] ([facility]) Body height 73 [in_i] 73 [in_i] [facility] ([facility]) 6'1" Body temperature 97.7 [degF] 97.7 [degF] [facility] ([facility]) Diastolic blood pressure 58 mm[Hg] 58 mm[Hg] [facility] ([facility]) Systolic blood pressure 146 mm[Hg] 146 mm[Hg] [facility] Oxygen saturation in Arterial blood by Pulse oximetry 98 % 98 % [facility] ([facility] Body mass index (BMI) [Ratio] 23.1 kg/m2 23.1 k g/m2 [facility] ([facility] Body weight 170.00 [lb_av] 170.00 [lb_av] [facility] ([facility] Body height 72 [in_i] 72 [in_i] [facility] ([facility] 6'0" Respiratory rate 16 /min 16 /min [facility] ( [facility] Heart rate 79 /min 79 /min [facility] ([facility] Body temperature 97.9 [degF] 97.9 [degF] [facility] ([facility] Diastolic blood pressure 72 mm[Hg] 72 mm[Hg] [facility] ([facility] Systolic blood pressure 140 mm[Hg] 140 mm[Hg] M [facility] ([facility] Diastolic blood pressure 80 mm[Hg] 80 mm[Hg] [facility] ([facility] Systolic blood pressure 150 mm[Hg] 150 mm[Hg] M [facility] ([facility] Body weight 79.437 kg 79.437 kg [facility] ([facility]) Body mass index (BMI) [Ratio] 23.1 kg/m2 23.1 k g/m2 [facility] ([facility]) Body weight 175.12 [lb_av] 175.12 [lb_av] [facility] T ([facility]) Body height 73 [in_i] 73 [in_i] [facility] ([facility]) 6'1" Diastolic blood pressure 82 mm[Hg] 82 mm[Hg] [facility] ([facility]) Systolic blood pressure 191 mm[Hg] 191 mm[Hg] [facility] Diastolic blood pressure--sitting 78 mm[Hg] 78 mm[Hg] [facility] ([facility]) large cuff, Ra Systolic blood pressure--sitting 132 mm[Hg] 132 mm[Hg] [facility] ([facility]) large cuff, Ra Heart rate 85 /min 85 /min [facility] ([facility] Body mass index (BMI) [Ratio] 22.2 kg/m2 22.2 k g/m2 [facility] ([facility]) Body height 74 [in_i] 74 [in_i] [facility] ([facility]) 6'2" Body weight 173.00 [lb_av] 173.00 [lb_av] [facility] T ([facility]) Oxygen saturation in Arterial blood by Pulse oximetry 98 % 98 % [facility] ([facility] Body mass index (BMI) [Ratio] 23.7 kg/m2 23.7 k g/m2 [facility] ([facility] Body weight 175.00 [lb_av] 175.00 [lb_av] [facility] T ([facility] Body height 72 [in_i] 72 [in_i] [facility] ([facility] 6'0" Respiratory rate 16 /min 16 /min MEDSHAYAN ( [facility] Heart rate 88 /min 88 /min MEDSHAYAN ([facility] Body temperature 97.6 [degF] 97.6 [degF] [facility] Diastolic blood pressure 72 mm[Hg] 72 mm[Hg] [facility] Systolic blood pressure 138 mm[Hg] 138 mm[Hg] M THIERRY ([facility] ID Date Data Source [id number] 10/27/2019 08:40:[address] [facility] Name Value Range Interpretation Code Description Data Source(s) WEIGHT RECORDED 163.4 lb 163.4 lb [facility] WEIGHT RECORDED 167.77 lb 167.77 lb [facility] WEIGHT RECORDED 161.6 lb 161.6 lb [facility] WEIGHT RECORDED 164.9 lb 164.9 lb [facility] WEIGHT RECORDED 165.12 lb 165.12 lb [facility] WEIGHT RECORDED 163.4 lb 163.4 lb [facility] Body height Measured 73 in 73 in [facility] WEIGHT RECORDED 163.4 lb 163.4 lb [facility] Body height Measured 73 in 73 in [facility] Patient Treatment Plan of Care Planned Activity Planned Date Details Description Data Source (s) Tamsulosin hydrochloride 0.4 MG Oral Capsule 10/25/2019 12:00:00 AM [facility] Simethicone 80 MG Chewable Tablet 10/25/2019 12:00:00 AM [facility] sennosides, SENIOR CARE 8.6 MG Oral Tablet 10/25/2019 12:00:00 AM [facility] Oxycodone Hydrochloride 5 MG Oral Tablet 10/25/2019 12:00:00 AM [facility] Furosemide 40 MG Oral Tablet 10/25/2019 12:00:00 AM [facility] cefpodoxime 200 MG Oral Tablet 10/25/2019 12:00:00 AM [facility] Carboxymethylcellulose Sodium 5 MG/ML Ophthalmic Solut ion 10/25/2019 12:00:00 AM [facility] apixaban 2.5 MG Oral Tablet 10/25/2019 12:00:00 AM [facility] Acetaminophen 325 MG Oral Tablet 10/25/2019 12:00:00 AM [facility] oxyCODONE (ROXICODONE) immediate release tablet 2.5 mg 10/24/2019 11:55:26 AM [facility] 168 HR Clonidine 0.51158 MG/HR Transdermal Patch 10/22/2019 12:00:0 0 AM [facility] insulin lispro (HumaLOG) injection LOW DOSE EATING INS ULIN patients 1-8 Units 10/20/2019 01:00:[address] [facility] dextrose 50 % IV solution 25 mL 10/20/2019 09:06:53 AM [facility] Glucagon 1 MG Injection 10/20/2019 09:06:53 AM [facility] Glucose 0.417 MG/MG Oral Gel 10/20/2019 09:06:53 AM [facility] Amiloride Hydrochloride 5 MG Oral Tablet 12/06/2017 12:00:00 AM [facility] valsartan 160 MG Oral Tablet [facility]
[2020-05-10 04:50] LABS: ALBUMIN 3.5 GM/DL (3.2-5.2); BILIRUBIN,DIRECT 0.2 MG/DL (0.0-0.2); BILIRUBIN,TOTAL 0.3 MG/DL (0.2-1.0); C REACTIVE PROTEIN QUANTITATIV 0.3 MG/DL (0.00-0.30); CALCIUM LEVEL 8.5 MG/DL (8.8-10.2); CK-MB VALUE MASS 1.9 NG/ML (<3.6); CREATININE FOR GFR 2.95 MG/DL (0.70-1.30); FREE T4 0.92 NG/DL (0.76-1.46); GLOMERULAR FILTRATION RATE 22.2 (>42); MB/CK RELATIVE INDEX 3.45 (< OR =4); POTASSIUM SERUM 3.9 MEQ/L (3.5-5.1); THYROID STIMULATING HORMONE 4.07 uIU/ML (0.358-3.740); TOTAL PROTEIN 6.7 GM/DL (6.4-8.2); TROPONIN I 0.02 NG/ML (< 0.10)
--- NOTE | 2020-05-10 04:55 | REPVR ---
PROCEDURE INFORMATION: Exam: CT Head Without Contrast Exam date and time: 05/10/2020 4:18 AM Age: 74 years old Clinical indication: Dizziness; Additional info: Vertigo TECHNIQUE: Imaging protocol: Computed tomography of the head without contrast. Radiation optimization: All CT scans at this facility use at least one of these dose optimization techniques: automated exposure control; mA and/or kV adjustment per patient size (includes targeted exams where dose is matched to clinical indication); or iterative reconstruction. COMPARISON: CT Head without contrast 11/03/2019 6:51 PM FINDINGS: Brain: There is stable mild, diffuse parenchymal volume loss. There is heterogeneity of the white matter attenuation, most consistent with mild chronic white matter ischemic changes, without significant change from the prior exam. The cortical/white matter interfaces are preserved throughout the brain. There is no evidence of intracranial hemorrhage. Cerebral ventricles: The ventricular system demonstrates stable mild diffuse compensatory enlargement. Bones/joints: No acute fractures of the skull are identified. Paranasal sinuses: The visualized paranasal sinuses are clear. Mastoid air cells: The mastoid air cells are clear. Vasculature: Atherosclerotic calcifications are seen in the cerebral arteries at the skull base. Soft tissues: The soft tissues appear unremarkable. IMPRESSION: 1. Mild diffuse parenchymal volume loss and heterogeneous low attenuation in the white matter, most consistent with chronic small vessel ischemic disease and without significant change from the prior exam. 2. No evidence of acute infarct, mass, or hemorrhage. Electronically signed by: Jeanette Brooks On 05/10/2020 04:55:21 AM
--- NOTE | 2020-05-10 04:59 | REPVR ---
PROCEDURE INFORMATION: Exam: XR Chest Exam date and time: 05/10/2020 4:39 AM Age: 74 years old Clinical indication: Other: Chest pain TECHNIQUE: Imaging protocol: XR of the chest Views: 1 view. COMPARISON: 1. CT Chest without contrast 10/13/2019 3:58 PM 2. [place] PORTABLE CHEST X-RAY 03/04/2019 12:14:57 PM FINDINGS: Tubes, catheters and devices: There is again a right tunneled right central venous catheter with the tip at the SVC/RA junction. Lungs: Lung volumes are more shallow than on the prior chest x-ray. There is no evidence of significant pulmonary edema at this time. There is no significant consolidation. Pleural spaces: There are small, bilateral pleural effusions. Heart/Mediastinum: The heart is enlarged. Mediastinal surgical clips are present, consistent with previous coronary arterial bypass grafting. Bones/joints: Sternotomy wires are present. No acute abnormality. IMPRESSION: 1. Small bilateral pleural effusions, which were also present on the prior CT scan. 2. Cardiomegaly, which appears larger than on the prior chest x-ray but the apparent difference may be due to the lower lung volumes currently. Electronically signed by: Jeanette Brooks On 05/10/2020 04:59:43 AM
[2020-05-10 05:10] LABS: BASO % 0.6 % (0.0-1.0); EOS # 0.1 10^3/uL (0.0-0.5); EOS % 1.3 % (0.0-3.0); HEMATOCRIT 35.7 % (42.0-52.0); HEMOGLOBIN 11.2 g/dl (13.5-17.5); LYMPH # 0.4 10^3/uL (1.5-5.0); MEAN CORPUSCULAR HEMOGLOBIN 30.8 pg (27.0-33.0); MEAN CORPUSCULAR HGB CONC 31.4 g/dl (32.0-36.5); MEAN CORPUSCULAR VOLUME 98.1 fl (80.0-96.0); MONO # 0.2 10^3/uL (0.0-0.8); MONO % 3.8 % (2.0-8.0); NEUTROPHILS # 5.5 10^3/uL (1.5-8.5); NEUTROPHILS % 87.5 % (36.0-66.0); PLATELET COUNT, AUTOMATED 138 10^3/uL (150-450); RED BLOOD COUNT 3.64 10^6/uL (4.30-6.10); WHITE BLOOD COUNT 6.3 10^3/uL (4.0-10.0)
[2020-05-10] MEDS ORDERED: ONDANSETRON 4MG/2ML VIAL IV ONE (05:35)
[2020-05-10 05:37] LABS: ERYTHROCYTE SEDIMENTATION RATE 19 mm/hr (0-20)
[2020-05-10] MEDS: MORPHINE 2 MG/ML 1ML VIAL (J2270) IV PRN ×2 (05:47→06:30)
[2020-05-10 05:51] LABS: RSV AMPLIFICATION NEGATIVE (NEGATIVE)
--- OUTSIDE RECORDS SUMMARY | 2020-05-10 05:53 | CCD ---
Author Author [facility] Organization [facility] Address Unknown Phone Unavailable Care Team Providers Care Job Development Specialist Name Role Phone Glenda Marie MD Unavailable [...] Benny Dennis PA Unavailable Unavailable Verbeck Jr, Montrose Dennis PA Unavailable Unavailable Verbeck Jr, Benny Dennis PA Unavailable Unavailable Verbeck Jr, Benny Dennis PA Unavailable Unavailable Verbeck Jr, Montrose Dennis PA Unavailable Unavailable Verbeck Jr, Montrose Dennis PA Unavailable Unavailable Verbeck Jr, Benny Dennis PA Unavailable Unavailable Verbeck Jr, Montrose Dennis PA Unavailable Unavailable Verbeck Jr, Benny Dennis PA Unavailable Unavailable Verbeck Jr, Montrose Dennis PA Unavailable Unavailable Verbeck Jr, Benny Dennis PA Unavailable Unavailable Verbeck Jr, Montrose Dennis PA Unavailable Unavailable Verbeck Jr, Benny Dennis PA Unavailable Unavailable Verbeck Jr, Benny Dennis PA Unavailable Unavailable Verbeck Jr, Montrose Dennis PA Unavailable Unavailable Verbeck Jr, Montrose Dennis PA Unavailable Unavailable Verbeck Jr, Montrose Dennis PA Unavailable Unavailable Verbeck Jr, Benny Dennis PA Unavailable Unavailable Verbeck Jr, Montrose Dennis PA Unavailable Unavailable Verbeck Jr, Benny Dennis PA Unavailable Unavailable Verbeck Jr, Benny Dennis PA Unavailable Unavailable Verbeck Jr, Montrose Dennis PA Unavailable Unavailable Verbeck Jr, Montrose Dennis PA Unavailable Unavailable Verbeck Jr, Benny Dennis PA Unavailable Unavailable Verbeck Jr, Montrose Dennis PA Unavailable Unavailable Verbeck Jr, Montrose Dennis PA Unavailable Unavailable Verbeck Jr, Benny Dennis PA Unavailable Unavailable Verbeck Jr, Montrose Dennis PA Unavailable Unavailable Verbeck Jr, Montrose Dennis PA Unavailable Unavailable Verbeck Jr, Montrose Dennis PA Unavailable Unavailable Flaquito, L Tanya [...] L MANE PA Unavailable Unavailable Plata, M Hcan MD Unavailable Unavailable Plata, M Chan MD [...] Unavailable Daniel RIBEIRO MD Unavailable Unavailable NICHOLASOHDaniel Traina MD Unavailable Unavailable Daniel RIBEIRO MD Unavailable [...] is protected by Article 27-F of the [facility] Public Health law. If you continue you may have access to information: Regarding HIV / AIDS; Provided by facilities licensed or operated by the [facility] Office of Mental Health; or Provided by the [facility] Office for People With Developmental Disabilities. If such information is present, then the following [facility] mandated warning applies: This information has [...] law may result in a fine or prison sentence or both. A general authorization for the release of medical or other information is NOT sufficient authorization for further disc losure. Allergies and Adverse Reactions Type Description Substance Reaction Status Data Source(s ) Drug Class IODINATED DIAGNOSTIC AGENTS IODINATED DIAGNOSTIC AGENTS [facility] Family History Family Member Name Family Member Gender Family Member Status Date o f Status Description Data Source(s) Unknown Unknown Problem [facility] ([facility]) Unknown Unknown Problem [facility] ([facility] father Unknown Female Problem [facility] ([facility]) Unknown Female Problem [facility] ([facility] Unknown Female Problem [facility] ([facility] Encounters Encounter Providers Location Date Indications Data Source(s ) Outpatient Attender: CARLA BORJAMConsultant: TONG Triana MD 05/08/2020 01:58:00 PM EST - 05/08/2020 01:58:00 PM EST [facility] Outpatient Attender: CARLA HUMPHRIES DPM [facility] 05/08/2020 0 1:00:00 PM EST [facility] ([facility]) Outpatient Attender: MANE CARRILLO Main Office 05/01/2020 0 1:30:00 PM EST [facility] ([facility]) Outpatient Attender: Roshni CARRILLO [place] Office 10/2020 02:00:00 PM EST [facility] ([facility] Outpatient Attender: Barb Silveira/Melisa/Darryl/ Reinfredo 01/01/2020 01:00:00 PM EDT [facility] ([facility] Outpatient Attender: Roshni CARRILLO [place] [facility] 04/2019 02:40:00 PM EDT [facility] ([facility] Outpatient Attender: Barb Silveira/Melisa/Darryl/ Reinfredo 11/06/2019 03:30:00 PM EDT [facility] ([facility] Outpatient Attender: TONG CARTAGENA MDConsultant: TONG Triana MD 10/30/2019 08:30:00 PM EDT - 10/30/2019 08:40:00 PM EDT [facility] Inpatient Attender: DEFAULT / GENE GURWINDER / UNKNOWN PROVIDER ALIASES Attender: Mickey Plata MDAttender: ANAND BONE MDAdmitter: Mickey Plata MDReferrer: PROVIDER SYSTEM INConsultant: LATHA RIBEIRO MDConsultant: ROSHNI GOULD MD [id number] 10/19/2019 12:00:00 AM EDT - 10/26/2019 12:00:00 AM EDT 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 Outpatient Attender: Pushpa Silveira/Purvis/Darryl/R eindl 10/09/2019 10:30:00 AM EDT [facility] ([facility] Outpatient Attender: Tanya CARRILLO Main Office 09/22/2019 11:30:0 0 AM EDT MED[facility] ([facility]) Outpatient Attender: Roshni CARRILLO [place] [facility] 08/2019 09:45:00 AM EDT [facility] ([facility] Outpatient Attender: Roshni CARRILLO [place] [facility] 03/2019 02:20:00 PM EDT [facility] ([facility] Attender: [place]hat [facility] 09/07/2019 01:15:00 PM EDT [facility] ([facility] Outpatient Attender: Barb Silveira/Melisa/Darryl/ Reindl 08/28/2019 01:45:00 PM EDT [facility] ([facility] Outpatient Attender: Roshni CARRILLO [place] [facility] 03/2019 01:30:00 PM EDT [facility] ([facility] Outpatient Attender: Pushpa Gabrielang/Purvis/Darryl/R eindl 08/09/2019 11:00:00 AM EDT [facility] ([facility] Outpatient Attender: Barb Silveira/Melisa/Darryl/ Reindl 07/17/2019 03:30:00 PM EDT MED[facility] ([facility]) Outpatient Attender: Pushpa Silveira/Melisa/Darryl/R eindl 07/05/2019 11:45:00 AM EDT MED[facility] ([facility]) Outpatient Referrer: Roshni CARRILLO 06/16/2019 03:45:00 PM EDT [facility] Outpatient Referrer: Roshni CARRILLO 06/16/2019 03:44:00 PM EDT [facility] Outpatient Attender: Roshni CARRILLO [place] [facility] 05/2019 02:20:00 PM EDT MED[facility] ([facility] Outpatient Referrer: Roshni CARRILLO 06/05/2019 05:04:00 PM EDT [facility] Outpatient Referrer: Roshni CARRILLO 06/05/2019 05:03:00 PM EDT [facility] Outpatient Referrer: Roshni CARRILLO 06/05/2019 04:42:00 PM EDT [facility] Outpatient Attender: Roshni CARRILLO [place] [facility] 03:30:00 PM EDT MED[facility] ([facility] Outpatient Referrer: Dennis Bryson Jr 03/23/2019 01:40:00 PM EST [facility] Outpatient Attender: Tanya CARRILLO Main Office 03/22/2019 12:00:0 0 PM EST [facility] ([facility]) Outpatient Attender: Roshni CARRILLO [place] [facility] 05/2019 12:30:00 PM EST [facility] ([facility] Medications Medication Brand Name Start Date Product Form Dose Route Admi nistrative Instructions Pharmacy Instructions Status Indications Reaction Description Data Source(s) gabapentin 100 MG Oral Capsule Gabapentin 04/30/2020 12:00:00 AM EST ORAL active [facility] ([facility] pantoprazole 40 MG Delayed Release Oral Tablet Pantoprazole Sodium 04/30/2020 12:00:00 AM EST ORAL active M EDENT ([facility]) valsartan 160 MG Oral Tablet Valsartan 04/30/2020 12:00:00 AM EST ORAL active [facility] ([facility]) 0.2 mg/24 hr 04/26/2020 12:00:00 AM EST [...] 03/22/2020 12:00:00 AM EST act shey MED[facility] ([facility] 33 gauge 03/22/2020 12:00:00 AM EST misc 400 DIRECTED TO TEST FOUR TIMES A DAY DIRECTED TO TEST FOUR TIMES A DAY SOLD: 03/22/2020 [facility] montelukast 10 MG Oral Tablet Montelukast Sodium 03/22/2020 12:00:00 AM EST active MED[facility] ([facility] montelukast 10 MG Oral [...] on Wed10/25/19 at 0800, For 1 dose [facility] Medication administered onsite cefpodoxime 200 MG Oral Tablet Cefpodoxime Proxetil 20 0 MG Oral Tablet (VANTIN) Cefpodoxime Proxetil 200 MG Oral Tablet (VANTIN) 10/25/2019 12:00:00 AM EDT 200 mg Oral active Take 1 tab let by mouth 3 (three) times a week for 3 daysAfter HD on Th(10/25) S(815) T(10/30) [facility] Carboxymethylcellulose Sodium 5 MG/ML Op hthalmic Solution Carboxymethylcellulose Sod PF 0.5 % Ophthalmic Solution (REFRESH PLUS) Carboxymethylcellulose Sod PF 0.5 % Ophthalmic Solution (REFRESH PLUS) 10/25/2019 12:00:00 AM EDT 1 [drp] Both Eyes active Place 1 drop i nto both eyes Three times daily as needed [facility] sennosides, MCFP 8.6 MG Oral Tablet Senna 8.6 MG Oral T ablet Senna 8.6 MG Oral Tablet 10/25/2019 12:00:00 AM EDT 2 {tbl} Oral active Take 2 tablets by mouth nightly as needed [facility] Simethicone 80 MG Chewable Tablet Simeth icone 80 MG Oral Tablet Chewable (MYLICON) Simethicone 80 MG Oral Tablet Chewable (MYLICON) 10/24 12:00:00 AM EDT 80 mg Oral active Chew 1 t ablet by Mouth every 6 (six) hours as needed for Flatulence for up to 10 days [facility] Furosemide 40 MG Oral Tablet Furosemide 40 MG Oral Tab let (LASIX) Furosemide 40 MG Oral Tablet (LASIX) 10/25/2019 12:00:00 AM EDT 60 mg Oral active Take 1.5 tablets by mouth Two Times Daily [facility] Oxycodone Hydrochloride 5 MG Oral Tablet oxyCODONE HCl 5 MG Oral Tablet (ROXICODONE) oxyCODONE HCl 5 MG Oral Tablet (ROXICODONE) 10/25/2019 12:00:00 AM EDT 2.5 mg Oral active Take 0.5 tablets by mouth every 4 (four) hours as needed for up to 3 days, Max Daily Dose: 15 mg [facility] Tamsulosin hydrochloride 0.4 MG Oral Cap blair Tamsulosin HCl 0.4 MG Oral Capsule (FLOMAX) Tamsulosin HCl 0.4 MG Oral Capsule (FLOMAX) 10/25/2019 12:00 :00 AM EDT 0.4 mg Oral active Take 1 capsule b y mouth daily [facility] Acetaminophen 325 MG Oral Tablet Acetaminophen 325 MG Oral T ablet 10/25/2019 12:00:00 AM EDT 650 mg Oral active Take 2 tablets by mouth every 6 (six) hours as needed for up to 10 days [facility] apixaban 2.5 MG Oral Tablet Apixaban 2.5 MG Oral Table t (ELIQUIS) Apixaban 2.5 MG Oral Tablet (ELIQUIS) 10/25/2019 12:00:00 AM EDT 2.5 mg Oral active Take 1 tablet by mouth Two Times Daily [facility] oxyCODONE (ROXICODONE) immediate release tablet 2.5 [...] Service consultation and approval.
[Order 2 End] [facility] Medication administered onsite pantoprazole 40 MG Delayed Release Oral Tablet pantoprazole (PROTONIX) EC tablet 40 mg pantoprazole (PROTONIX) EC tablet 40 mg 10/24/2019 09:00:00 AM E DT 40 mg Oral active 40 mg, Ora l, Daily Standard, First dose on Wed10/24/19 at 0900, For 30 days
Do not crush or chew
[facility] Medication administered onsite Docusate Sodium 100 MG Oral Capsule docusate sodium (C OLACE) capsule 100 mg docusate sodium (COLACE) capsule 100 mg 10/24/2019 09:00:00 AM EDT 100 mg Oral active 100 mg, Oral, 2 Times Daily, First dose on Wed10/24/19 at 0900, For 30 days [facility] Medication administered onsite sennosides, MCFP 8.6 MG Oral Tablet senna tablet 2 tablet sen na tablet 2 tablet 10/24/2019 07:57:59 AM EDT 2 {tbl} Oral active 2 tablet, Oral, Nightly PRN, Constipation, Starting Wed10/24/19 at 0757, For 30 days [facility] Medication administered onsite Simethicone 80 MG Chewable Tablet simethicone (MYLICON ) chewable tablet 80 mg simethicone (MYLICON) chewable tablet 80 mg 10/24/2019 12:46:12 AM EDT 80 mg Oral active 80 mg, Oral, E very 6 hours PRN, Flatulence, Starting Wed10/24/19 at 0046, For 30 days [facility] Medication administered onsite Carboxymethylcellulose Sodium 5 MG/ML Op hthalmic Solution carboxymethylcellulose PF (REFRESH PLUS) 0.5 % ophthalmic solution 1 drop carboxymethylcellulose PF (REFRESH PLUS) 0.5 % ophthalmic solution 1 drop 10/23/2019 04:24:16 PM EDT 1 [drp] Both Eyes active 1 drop, Christiano th Eyes, Three Times Daily-PRN, Dry Eyes, Starting Wed10/23/19 at 1624, For 30 days [facility] Medication administered onsite 24 HR metoprolol succinate 50 MG Extende d Release Oral Tablet metoprolol (TOPROL-XL) 24 hr tablet 50 mg metoprolol (TOPROL-XL) 24 hr tablet 50 mg 10/23/2019 09:00:00 AM EDT 50 mg Oral active 50 mg, Oral, Daily Standard, First dose on 10/23/19 at 0900, For 30 days
Do not crush or chew
[facility] Medication administered onsite furosemide (LASIX) tablet 50 mg 10/22/2019 09:00:00 PM EDT 50 mg Oral active 50 mg, Oral, 2 Times Daily, First dose on 10/22/19 at 2100, For 30 days [facility] Medication administered onsite apixaban 5 MG Oral Tablet apixaban (ELIQUIS) tablet 2. 5 mg apixaban (ELIQUIS) tablet 2.5 mg 10/22/2019 09:00:00 PM EDT 2.5 mg Oral acti ve 2.5 mg, Oral, 2 Times Daily, First dose on 10/22/19 at 2100, For 30 days [facility] Medication administered onsite 168 HR Clonidine 0.46107 MG/HR Transderm al Patch cloNIDine (CATAPRES) 0.2 MG/24HR patch 1 patch cloNIDine (CATAPRES) 0.2 MG/24HR patch 1 patch 02:45:00 PM EDT 1 {patch} Transdermal active 1 patch, Transdermal, Administer over 7 Days, Weekly, First dose (after last modification) on 10/22/19 at 1445, For 3 doses [facility] Medication administered onsite 168 HR Clonidine 0.96925 MG/HR Transderm al Patch cloNIDine 0.2 MG/24HR Transdermal Patch Weekly (CATAPRES) cloNIDine 0.2 MG/24HR Transdermal Patch Weekly (CATAPRES) 10/22/2019 12:00:00 AM EDT 1 {patch} Transdermal active Place 1 patch onto the skin once a week [facility] fentaNYL (SUBLIMAZE) (PF) injection 12.5 mcg 6493-0440-04 10/21/2019 05:52:59 PM EDT 12.5 ug Intravenous aborted 12.5 mcg, Intravenous, Every 5 min PRN, Moderate Pain (Pain Scale Score 4-6), Severe Pain (Pain Scale Score 7-10), Starting 10/21/19 at 1752, For 10 doses, Recovery [facility] Medication administered onsite chlorhexidine gluconate 40 MG/ML Medicat ed Liquid Soap chlorhexidine (HIBICLENS) 4 % liquid chlorhexidine (HIBICLENS) 4 % liquid 10/20/2019 05:45:00 PM EDT Topical completed Topical, Once, Wed10/20/19 at 1745, For 1 dose
Apply to arm
[facility] Medication administered onsite Tamsulosin hydrochloride 0.4 MG Oral Capsule tamsulosi n (FLOMAX) capsule 0.4 mg tamsulosin (FLOMAX) capsule 0.4 mg 10/20/2019 05:45:00 PM EDT 0.4 mg Oral active 0.4 mg, Oral, Daily Standard, First dose on Wed10/20/19 at 1745, For 30 days
Swallow whole. Do not crush, chew or open.
[facility] Medication administered onsite lidocaine (LIDODERM) 5 % patch 2 patch [id number] 0 04:15:00 PM EDT 2 {patch} Transdermal active 2 patch, T ransdermal, Daily Standard, First dose on Wed10/20/19 at 1615, For 30 days
Apply to back12 hours on - 12 hours off
[facility] Medication administered onsite insulin lispro (HumaLOG) injection LOW DOSE EATING INS ULIN patients 1-8 Units 50542-574-22 10/20/2019 01:00:00 PM EDT U Subcutaneous active 1-8 Units, Subcutaneous, Three Times Daily-With Meals, First dose on Wed10/20/19 at 1300, For 30 days
Nursing MUST open the 'SQ Insulin Dosing Charts' Sidebar Report, or, the Patient Summary or Summary Report within the ED.
[facility] Medication administered onsite 1 ML heparin sodium, porcine 1000 UNT/ML Injection heparin (porcine) 1000 units/mL injection 2,000 Units heparin (porcine) 1000 units/mL injectio n 2,000 Units 10/20/2019 09:57:47 AM EDT 2000 U Intravenous active 2,000 Units, Intravenous, Daily PRN, Other, Starting Wed10/20/19 at 0957, For 30 days
Fill for the catheter length
[facility] Medication administered onsite dextrose 50 % IV solution 25 mL [id number] 10/20/2019 09:06:53 AM E DT 25 mL Intravenous active 25 mL, Intrav enous, PRN, Other, blood glucose <55, Starting Wed10/20/19 at 09, For 30 days
Not for midline administration.
[facility] Medication administered onsite Glucagon 1 MG Injection glucagon (human recombinant) ( GLUCAGEN) injection 1 mg glucagon (human recombinant) (GLUCAGEN) injection 1 mg 10/20/2019 09:06:53 AM EDT 1 mg Intramuscular active 1 mg, Intramuscular, PRN, for glucose <55 without IV access, Starting Wed10/20/19 at 0906, For 30 days [facility] Medication administered onsite Glucose 0.417 MG/MG Oral Gel glucose (GLUTOSE) 40 % or al gel 15 g glucose (GLUTOSE) 40 % oral gel 15 g 10/20/2019 09:06:53 AM EDT 15 g Oral active 15 g, Oral, PRN, Low blood s ugar, for gluose 55-69 mg/dl and able to take PO, Starting Wed10/20/19 at 905, For 30 days [facility] Medication administered onsite POLYETHYLENE GLYCOL 3350 142 MG/ML Oral Solution polyethylene glycol (MIRALAX) packet 17 g polyethylene glycol (MIRALAX) packet 17 g 10/20/2019 0 9:00:00 AM EDT 17 g Oral active 17 g, Or al, Daily Standard, First dose on Wed10/20/19 at 0900, For 30 doses [facility] Medication administered onsite Allopurinol 100 MG Oral Tablet allopurinol (ZYLOPRIM) tablet 100 mg allopurinol (ZYLOPRIM) tablet 100 mg 10/20/2019 09:00:00 AM EDT 100 mg Oral active 100 mg, Oral, Daily Standard, First dose on Wed 0 at 0900, For 30 days [facility] Medication administered onsite atorvastatin 40 MG Oral Tablet atorvastatin (LIPITOR) tablet 40 mg atorvastatin (LIPITOR) tablet 40 mg 10/20/2019 09:00:00 AM EDT 40 mg Oral active 40 mg, Oral, Daily Standard, First dose on Wed10/20/19 at 0900, For 30 days [facility] Medication administered onsite Aspirin 81 MG Chewable Tablet aspirin chewable tablet 81 mg aspirin chewable tablet 81 mg 10/20/2019 09:00:00 AM EDT 81 mg Oral activ e 81 mg, Oral, Daily Standard, First dose on Wed10/20/19 at 0900, For 30 doses [facility] Medication administered onsite iodixanol (VISIPAQUE) 320 MG/ML contrast injection 100 mL 44 994 10/20/2019 01:00:00 AM EDT 100 mL Given by IV completed 100 mL, Given by IV, 1 TIME IMAGING, Wed10/20/19 at 0100, For 1 dose [facility] Medication administered onsite Famotidine 20 MG Oral Tablet famotidine (PEPCID) table t 40 mg famotidine (PEPCID) tablet 40 mg 10/20/2019 12:00:00 AM EDT 40 mg Oral completed 40 mg, Oral, Once, Wed10/20/19 at 0000, For 1 dose
Given 1 hour before the exam.
[facility] Medication administered onsite Diphenhydramine Hydrochloride 25 MG Oral Capsule diphenhydrAMINE (BENADRYL) capsule 50 mg diphenhydrAMINE (BENADRYL) capsule 50 mg 10/20/2019 12 :00:00 AM EDT 50 mg Oral completed 50 mg, Oral, Once, Wed10/20/19 at 0000, For 1 dose
Given 1 hour before the exam.
[facility] Medication administered onsite Acetaminophen 325 MG Oral [...] mg from all sources in 24 hours.
[facility] Medication administered onsite fentaNYL (SUBLIMAZE) (PF) injection 25 mcg [id number] 10/19/2019 08:19:36 PM EDT 25 ug Intravenous aborted 25 m cg, Intravenous, Every 2 hours PRN, Breakthrough pain, Starting Leti 10/19/19 at 2019, For 3 days [facility] Medication administered onsite ondansetron (ZOFRAN) injection 4 mg [id number] 10/19/2019 08:19:3 6 PM EDT 4 mg Intravenous active 4 mg, In travenous, Every 8 hours PRN, Nausea, Vomiting, Starting Leti 10/19/19 at 2019, For 9 days 12 hours [facility] Medication administered onsite furosemide (LASIX) tablet 50 mg 10/19/2019 08:00:00 PM EDT 50 mg Oral aborted 50 mg, Oral, 2 Times Daily, First dose on Leti 10/19/19 at 2000, For 30 days [facility] Medication administered onsite Methylprednisolone 40 MG/ML Injectable [...] at least 4 hours after first dose.
[facility] Medication administered onsite 168 HR Clonidine 0.23840 MG/HR Transderm al Patch cloNIDine (CATAPRES) 0.2 MG/24HR patch 1 patch cloNIDine (CATAPRES) 0.2 MG/24HR patch 1 patch 020 07:00:00 PM EDT 1 {patch} Transdermal aborted 1 patch, Transdermal, Administer over 7 Days, Weekly, First dose on Leti 10/19/19 at 1900, For 30 days [facility] Medication administered onsite ondansetron (ZOFRAN) injection 4 mg [id number] 10/19/2019 03:45:0 0 PM EDT 4 mg Given by IV completed 4 mg, Gi leah by IV, Once, Leti 10/19/19 at 1545, For 1 dose [facility] Medication administered onsite morphine sulfate (PF) injection 4 mg [id number] 10/19/2019 03:45: 00 PM EDT 4 mg Intravenous completed 4 mg, In travenous, Once, Leti 10/19/19 at 1545, For 1 dose [facility] Medication administered onsite 5 % 10/14/2019 12:00:00 [...] Mupirocin 09/13/2019 12:00:00 AM EDT active [facility] ([facility] Clindamycin 300 MG Oral Capsule Clindamycin HCL 09/13/2019 12:00:00 A M EDT ORAL completed [facility] ([facility] Clindamycin 300 MG Oral Capsule Clindamycin HCL 09/13/2019 12:00:00 A M EDT ORAL completed [facility] ([facility] Clindamycin 150 MG Oral Capsule Clindamycin HCL 09/13/2019 12:00:00 A M EDT ORAL active [facility] ([facility] Clindamycin 150 MG Oral Capsule CLINDAMYCIN HCL 09/07/2019 12:00 :00 AM EDT capsule 14 TAKE ONE CAPSULE BY MOUTH TWICE A DAY FOR 7 DAYS TAKE ONE CAPSULE BY MOUTH TWICE A DAY FOR 7 DAYS SOLD: 09/07/2019 [facility] Clindamycin 150 MG Oral Capsule Clindamycin HCL 09/07/2019 12:00:00 A M EDT completed [facility] ([facility] Prednisone 50 MG Oral Tablet Prednisone 08/28/2019 12:00:00 AM EDT active [facility] ([facility], ) Diphenhydramine Hydrochloride 25 MG Oral Capsule [Benadryl] Benadryl Allergy 08/28/2019 12:00:00 AM EDT ORAL active [facility] ([facility], ) 40 mg 08/27/2019 12:00:00 AM [...] 08/14/2019 12:00:00 AM EDT RESPIRATORY active [facility] ([facility] 50 mg 07/19/2019 12:00:00 [...] Prednisone 07/18/2019 12:00:00 AM EDT completed [facility] ([facility] ) Diphenhydramine Hydrochloride 25 MG Oral Capsule [Benadryl] Benadryl Allergy 07/18/2019 12:00:00 AM EDT ORAL completed [facility] ([facility], ) 0.1 mg/24 hr 07/06/2019 12:00:00 [...] (SC)/(Im) 06/16/2019 12:00:00 AM EDT completed [facility] ([facility] Medication administered onsite Solu-Medrol Solu-Medrol 06/16/2019 12:00:00 AM EDT completed [facility] ([facility] Alprazolam 0.5 MG Oral [...] 12:00:00 AM E DT ORAL completed [facility] ([facility] Azithromycin 250 MG Oral Tablet Azithromycin 06/05/2019 12:00:00 AM E DT ORAL completed [facility] ([facility] 250 mg 06/05/2019 12:00:00 [...] EST ORAL active M [facility]ENT ([facility]) 100 mg 03/12/2019 12:00:00 AM EST tablet 15 TAKE ONE-HALF TABLET BY MOUTH TWICE A DAY TAKE ONE-HALF TABLET BY MOUTH TWICE A DAY SOLD: 03/14/2019 [facility] 100 mg 03/09/2019 12:00:00 AM EST capsule 60 TAKE TWO CAPSULES BY MOUTH AT BEDTIME TAKE TWO CAPSULES BY MOUTH AT BEDTIME SOLD: 03/14/2019 [facility] [place] 02/13/2019 12:00:00 AM EST tablet 90 TAKE [...] Amiloride Hydrochloride 5 MG Oral Tablet amiloride (OK DAMOR) 5 MG tablet amiloride (MIDAMOR) 5 MG tablet 12/06/2017 12:00:00 AM EDT 5 mg O ral aborted Take 5 mg by mouth daily [facility] valsartan 160 MG Oral Tablet valsartan (DIOVAN) 160 MG tablet valsartan (DIOVAN) 160 MG tablet 160 mg Oral aborted Take 160 mg by mouth daily [facility] Insurance Providers Payer name Policy type / Coverage type Policy ID Covered alliance party ID Covered alliance party's relationship to flores Policy Flores Plan Information WELLCARE [id number] SP [id number] [facility] [place] [id number] 18 [id number] WELLCARE [id number] SP [id number] WELLCARE [id number] SP [id number] WELLCARE O [id number] S [id number] WELLCARE [id number] SP [id number] MEDICARE [id number] SP [id number] A WELLCARE O [id number] S [id number] [facility] CP DUAL COMP - FACILITY [id number] 18 [id number] WELLCARE MEDICARE HMO G [id number] Self [id number] MEDICARE [id number] SP [id number] Wellcare MCR - To Ppo Commercial [id number] Self [id number] Medicare (Part B) Medicare Primary [id number] Self [id number] Today's Options PFFS Commercial [id number] Self [id number] Today's Options Ppo Commercial [id number] Self [id number] Today's Options PFFS Commercial [id number] Self [id number] Wellcare MCR - To Ppo Commercial [id number] Self [id number] Medicare (Part B) Medicare Primary [id number] Self [id number] Today's Options PFFS Commercial [id number] Self [id number] Today's Options Ppo Commercial [id number] Self [id number] TODAYS OPTIONS [id number] SP [id number] Wellcare MCR - To Ppo Commercial [id number] Self [id number] Medicare (Part B) Medicare Primary [id number] Self [id number] Today's Options PFFS Commercial [id number] Self [id number] Today's Options Ppo Commercial [id number] Self [id number] Wellcare MCR - To Ppo Commercial [id number] Self [id number] Medicare (Part B) Medicare Primary [id number] Self [id number] Today's Options PFFS Commercial [id number] Self [id number] Today's Options Ppo Commercial [id number] Self [id number] AMER PROG TODAYS OPTIONS G [id number] Self [id number] MEDICARE [id number] SP [id number] A TODAYS OPTIONS [id number] SP [id number] Medicare (Part B) Medicare Primary [id number] Self [id number] Today's Options PFFS Commercial [id number] Self [id number] Today's Options Ppo Commercial [id number] Self [id number] Medicare (Part B) Medicare Primary [id number] Self [id number] Today's Options PFFS Commercial [id number] Self [id number] Today's Options Ppo Commercial [id number] Self [id number] TODAYS OPTIONS/GUATEMALAN O [id number] S [id number] Medicare (Part B) Medicare Primary [id number] Self [id number] Today's Options PFFS Commercial [id number] Self [id number] Today's Options Ppo Commercial [id number] Self [id number] Medicare (Part B) Medicare Primary [id number] Self [id number] Today's Options PFFS Commercial [id number] Self [id number] Today's Options Ppo Commercial [id number] Self [id number] Medicare (Part B) Medicare Primary [id number] Self [id number] Today's Options PFFS Commercial [id number] Self [id number] Today's Options Ppo Commercial [id number] Self [id number] Medicare (Part B) Medicare Primary [id number] Self [id number] Today's Options PFFS Commercial [id number] Self [id number] Today's Options Ppo Commercial [id number] Self [id number] Medicare (Part B) Medicare Primary [id number] Self [id number] Today's Options PFFS Commercial [id number] Self [id number] Today's Options Ppo Commercial [id number] Self [id number] Medicare (Part B) Medicare Primary [id number] Self [id number] Today's Options PFFS Commercial [id number] Self [id number] Today's Options Ppo Commercial [id number] Self [id number] Today's Option Medicare Commercial [id number] Self [id number] TODAYS OPTIONS [id number] SP [id number] Medicare (Part B) Medicare Primary [id number] Self [id number] Today's Options PFFS Commercial [id number] Self [id number] Today's Options Ppo Commercial [id number] Self [id number] Today's Option Commercial [id number] Self [id number] Medicare (Part B) Medicare Primary [id number] Self [id number] Today's Options PFFS Commercial [id number] Self [id number] Today's Options Ppo Commercial [id number] Self [id number] Medicare (Part B) Medicare Primary [id number] Self [id number] Today's Options PFFS Commercial [id number] Self [id number] Today's Options Ppo Commercial [id number] Self [id number] Medicare (Part B) Medicare Primary [id number] Self [id number] Today's Options PFFS Commercial [id number] Self [id number] Today's Options Ppo Commercial [id number] Self [id number] Medicare (Part B) Medicare Primary [id number] Self [id number] Today's Options PFFS Commercial [id number] Self [id number] Today's Options Ppo Commercial [id number] Self [id number] Medicare (Part B) Medicare Primary [id number] Self [id number] Today's Options PFFS Commercial [id number] Self [id number] Today's Options Ppo Commercial [id number] Self [id number] Today's Option Commercial Self Medicare (Part B) Medicare Primary Self Today's Options PFFS Commercial Self Today's Options PFFS Commercial Self Today's Options Ppo Commercial Self BS [place] [place] Medigap Part B Self Medicare [facility] Medigap Part B Self Todays Options Commercial Self TODAYS OPTIONS [id number] SP [id number] Medicare Medicare Primary Self Problems, Conditions, and Diagnoses Code Display Name Description Problem Type Effective Dates Data Source(s) [id number] Permanent atrial fibrillation Permanent atrial fibrill ation Problem 05/01/2020 12:00:00 AM EST [facility] ([facility]) Type 2 diabetes mellitus with diabetic n europathy, unspecified Type 2 diabetes mellitus with diabetic neuropathy, unspecified Problem 2019 12:00:00 AM EDT [facility] ([facility] Permanent atrial fibrillation Permanent atrial fibrill ation Problem 03/22/2019 12:00:00 AM EST [facility] ([facility]) [id number] Preoperative cardiovascular examination Preoperative cardiovascular examination Problem 03/22/2019 12:00:00 AM EST [facility] ([facility] N186 End stage renal disease End stage renal disease Diagno sis [facility] Dependence on renal dialysis Dependence on renal dialy sis Diagnosis 10/20/2019 05:07:11 PM [facility] N18.6 End stage renal disease End stage renal disease Diagno sis 10/20/2019 05:07:11 PM [facility] T82.898A Other specified complication of vascular prosthetic devices, implants and grafts, initial encounter Other specified complication of vascular prosthetic devices, implants and grafts, initial encounter Diagnosis 10/19/2019 02:45:28 PM [facility] pain and swelling on LUE fistula site pain and s welling on LUE fistula site Diagnosis 10/19/2019 02:45:28 PM [facility] Z86.73 Personal history of transien t ischemic attack (TIA), and cerebral infarction without residual deficits Personal history of transient ischemic attack (TIA), and cerebral infarction without residual deficits Diagnosis 10/19/2019 02:45:28 PM [facility] I10 Essential (primary) hypertension Essential (primary) h ypertension Diagnosis 10/19/2019 02:45:28 PM [facility] E11.9 Type 2 diabetes mellitus without complic ations Type 2 diabetes mellitus without complications Diagnosis 10/19/2019 02:45:28 PM EDT [facility] R11.0 Nausea Nausea Diagnosis 10/19/2019 02:45:28 PM ED [facility] R07.89 Other chest pain Other chest pain Diagnosis 10/19/2019 02 :45:28 PM [facility] R60.9 Edema, unspecified Edema, unspecified Diagnosis 08/2019 02:45:28 PM [facility] T82.9XXA Unspecified complication of cardiac and vascular prosthetic device, implant and graft, initial encounter Unspecified complication of cardiac and vascular prosthetic device, implant and graft, initial encounter Diagnosis 10/19/2019 02:45:28 PM [facility] pain and swelling on fistula site pain and swelling on fistula site Diagnosis 10/19/2019 09:42:40 AM [facility] Surgeries/Procedures Procedure Description Date Indications Data Source(s) Pare Hyperkeratotic Lesion, Single 05/08/2020 12:00:00 AM EST [facility] ([facility]) Debridement Nails Any Method 6 Or More 05/08/2020 12:0 0:00 AM EST [facility] ([facility]) ECG ROUTINE ECG W/LEAST 12 LDS W/I&R 05/01/2020 12:00: 00 AM EST [facility] ([facility]) Dialysis Circuit W/ Transluminal Balloon Angioplasty, Periph eral 01/19/2020 12:00:00 AM EST [facility] ([facility], ) Moderate Sedation Services; Same Phys Intl 15 Mins; PT >= 5 Years 01/19/2020 12:00:00 AM EST [facility] MYOCARDIAL SPECT MULTIPLE STUDIES 11/27/2019 12:00:00 AM EDT [facility] ([facility]) CV STRS TST XERS&/OR RX CONT ECG PHYS SI&R 11/27/2019 12:00:00 AM EDT [facility] ([facility]) POCT GLUCOSE, DOCKED POCT GLUCOSE, DOCKED Routine 10/26/2019 12:08 PM EDT 10/26/2019 12:08:00 PM [facility] POCT GLUCOSE, DOCKED POCT GLUCOSE, DOCKED Routine 10/26/2019 8:08 AM EDT 10/26/2019 08:08:00 AM [facility] POCT GLUCOSE, DOCKED POCT GLUCOSE, DOCKED Routine 10/26/2019 6:23 AM EDT 10/26/2019 06:23:00 AM [facility] BASIC METABOLIC PANEL CALCIUM TOTAL BASIC METABOLIC PANEL Routi ne 10/26/2019 6:18 AM EDT 10/26/2019 06:18:[address] [facility] POCT GLUCOSE, DOCKED POCT GLUCOSE, DOCKED Routine 10/25/2019 10:19 PM EDT 10/25/2019 10:19:00 PM [facility] GLUCOSE QUANTITATIVE BLOOD XCPT REAGENT STRIP POCT GLUCOSE, DOC KED Routine 10/25/2019 5:21 PM EDT 10/25/2019 05:21:00 PM [facility] GLUCOSE QUANTITATIVE BLOOD XCPT REAGENT STRIP POCT GLUCOSE, DOC KED Routine 10/25/2019 12:02 PM EDT 10/25/2019 12:02:00 PM [facility] GLUCOSE QUANTITATIVE BLOOD XCPT REAGENT STRIP POCT GLUCOSE, DOC VÍCTORD Routine 10/25/2019 8:08 AM EDT 10/25/2019 08:08:00 AM [facility] URNLS DIP STICK/TABLET REAGENT AUTO MICROSCOPY URINALYSIS W ITH MICROSCOPIC Routine 10/25/2019 4:52 AM EDT 10/25/2019 04:52:00 AM [facility] BLOOD COUNT COMPLETE AUTOMATED CBC Routine 10/25/2019 4:52 A M EDT 10/25/2019 04:52:00 AM [facility] CULTURE BCT ISOL&PRSMPTV ID ISOLATE EA URINE URINE CULTURE Ro utine 10/25/2019 4:52 AM EDT 10/25/2019 04:52:[address] [facility] BASIC METABOLIC PANEL CALCIUM TOTAL BASIC METABOLIC PANEL Routi ne 10/25/2019 4:52 AM EDT 10/25/2019 04:52:[address] [facility] GLUCOSE QUANTITATIVE BLOOD XCPT REAGENT STRIP POCT GLUCOSE, DOC VÍCTORD Routine 10/24/2019 10:37 PM EDT 10/24/2019 10:37:00 PM [facility] GLUCOSE QUANTITATIVE BLOOD XCPT REAGENT STRIP POCT GLUCOSE, DOC VÍCTORD Routine 10/24/2019 5:27 PM EDT 10/24/2019 05:27:00 PM [facility] UH COVID-19 PCR UH COVID-19 PCR STAT 10/24/2019 4:48 PM EDT 10/24/2019 04:48:00 PM [facility] GLUCOSE QUANTITATIVE BLOOD XCPT REAGENT STRIP POCT GLUCOSE, CAYETANO RENEED Routine 10/24/2019 12:01 PM EDT 10/24/2019 12:01:00 PM [facility] GLUCOSE QUANTITATIVE BLOOD XCPT REAGENT STRIP POCT GLUCOSE, DOC KED Routine 10/24/2019 7:58 AM EDT 10/24/2019 07:58:00 AM [facility] BASIC METABOLIC PANEL CALCIUM TOTAL BASIC METABOLIC PANEL Routi ne 10/24/2019 4:11 AM EDT 10/24/2019 04:11:[address] [facility] GLUCOSE QUANTITATIVE BLOOD XCPT REAGENT STRIP POCT GLUCOSE, DOC KED Routine 10/23/2019 9:03 PM EDT 10/23/2019 09:03:00 PM [facility] GLUCOSE QUANTITATIVE BLOOD XCPT REAGENT STRIP POCT GLUCOSE, DOC KED Routine 10/23/2019 5:31 PM EDT 10/23/2019 05:31:00 PM [facility] GLUCOSE QUANTITATIVE BLOOD XCPT REAGENT STRIP POCT GLUCOSE, DOC KED Routine 10/23/2019 1:20 PM EDT 10/23/2019 01:20:00 PM [facility] GLUCOSE QUANTITATIVE BLOOD XCPT REAGENT STRIP POCT GLUCOSE, DOC KED Routine 10/23/2019 7:19 AM EDT 10/23/2019 07:19:00 AM [facility] VASC LAB US DOPPLER UPPER EXTREMITY UNILATERAL VENOUS LTD [id number] VASC LAB US DOPPLER UPPER EXTREMITY UNILATERAL VENOUS LTD 16686 Routine 6:58 AM EDT 10/23/2019 06:58:[address] [facility] THROMBOPLASTIN TIME PARTIAL PLASMA/WHOLE BLOOD PARTIA L THROMBOPLASTIN TIME (PTT) Routine 10/23/2019 5:51 AM EDT 10/23/2019 05:51 :00 AM [facility] PROTHROMBIN TIME PROTIME INR Routine 10/23/2019 5:51 AM EDT 10/23/2019 05:51:00 AM [facility] BLOOD COUNT COMPLETE AUTO&AUTO DIFRNTL WBC COUNT CBC AND DIFFER ENTIAL Routine 10/23/2019 5:51 AM EDT 10/23/2019 05:51:00 AM [facility] PHOSPHORUS INORGANIC PHOSPHORUS LEVEL Routine 10/23/2019 5:51 AM E DT 10/23/2019 05:51:00 AM [facility] MAGNESIUM MAGNESIUM LEVEL Routine 10/23/2019 5:51 AM EDT 10/23/2019 05:51:00 AM [facility] BASIC METABOLIC PANEL CALCIUM TOTAL BASIC METABOLIC PANEL Routi ne 10/23/2019 5:51 AM EDT 10/23/2019 05:51:[address] [facility] GLUCOSE QUANTITATIVE BLOOD XCPT REAGENT STRIP POCT GLUCOSE, DOC ALIS Routine 10/22/2019 6:24 PM EDT 10/22/2019 06:24:00 PM [facility] GLUCOSE QUANTITATIVE BLOOD XCPT REAGENT STRIP POCT GLUCOSE, DOC ALIS Routine 10/22/2019 12:24 PM EDT 10/22/2019 12:24:00 PM [facility] GLUCOSE QUANTITATIVE BLOOD XCPT REAGENT STRIP POCT GLUCOSE, DOC ALIS Routine 10/22/2019 8:22 AM EDT 10/22/2019 08:22:00 AM [facility] THROMBOPLASTIN TIME PARTIAL PLASMA/WHOLE BLOOD PARTIA L THROMBOPLASTIN TIME (PTT) Routine 10/22/2019 6:31 AM EDT 10/22/2019 06:31 :00 AM [facility] PROTHROMBIN TIME PROTIME INR Routine 10/22/2019 6:31 AM EDT 10/22/2019 06:31:00 AM [facility] BLOOD COUNT COMPLETE AUTO&AUTO DIFRNTL WBC COUNT CBC AND DIFFER ENTIAL Routine 10/22/2019 6:31 AM EDT 10/22/2019 06:31:00 AM [facility] PHOSPHORUS INORGANIC PHOSPHORUS LEVEL Routine 10/22/2019 6:31 AM E DT 10/22/2019 06:31:00 AM [facility] MAGNESIUM MAGNESIUM LEVEL Routine 10/22/2019 6:31 AM EDT 10/22/2019 06:31:00 AM [facility] BASIC METABOLIC PANEL CALCIUM TOTAL BASIC METABOLIC PANEL Routi ne 10/22/2019 6:31 AM EDT 10/22/2019 06:31:[address] [facility] GLUCOSE QUANTITATIVE BLOOD XCPT REAGENT STRIP POCT GLUCOSE, CAYETANO SNELL Routine 10/21/2019 10:32 PM EDT 10/21/2019 10:32:00 PM [facility] GLUCOSE QUANTITATIVE BLOOD XCPT REAGENT STRIP POCT GLUCOSE, DOC ALIS Routine 10/21/2019 7:03 PM EDT 10/21/2019 07:03:00 PM [facility] INCISION & DRAINAGE, HEMATOMA, SEROMA/FLUID COLLECTION <td><content ID="[id number]">INCISION & DRAINAGE, HEMATOMA, SEROMA/FLUID COLLECTION</content></td><td></td><td>10/21/2019 4:22 PM EDT</td><td><paragraph>Hematoma</paragraph></td><td></td> 10/21/2019 04:22:00 PM EDT - 10/21/2019 06:25:00 PM [facility] GLUCOSE QUANTITATIVE BLOOD XCPT REAGENT STRIP POCT GLUCOSE, DOC KED Routine 10/21/2019 12:40 PM EDT 10/21/2019 12:40:00 PM [facility] GLUCOSE QUANTITATIVE BLOOD XCPT REAGENT STRIP POCT GLUCOSE, DOC KEMonique Routine 10/21/2019 8:14 AM EDT 10/21/2019 08:14:00 AM [facility] THROMBOPLASTIN TIME PARTIAL PLASMA/WHOLE BLOOD PARTIA L THROMBOPLASTIN TIME (PTT) Routine 10/21/2019 5:19 AM EDT 10/21/2019 05:19 :00 AM [facility] PROTHROMBIN TIME PROTIME INR Routine 10/21/2019 5:19 AM EDT 10/21/2019 05:19:00 AM [facility] BLOOD COUNT COMPLETE AUTO&AUTO DIFRNTL WBC COUNT CBC AND DIFFER ENTIAL Routine 10/21/2019 5:19 AM EDT 10/21/2019 05:19:00 AM [facility] PHOSPHORUS INORGANIC PHOSPHORUS LEVEL Routine 10/21/2019 5:19 AM E DT 10/21/2019 05:19:00 AM [facility] MAGNESIUM MAGNESIUM LEVEL Routine 10/21/2019 5:19 AM EDT 10/21/2019 05:19:00 AM [facility] BASIC METABOLIC PANEL CALCIUM TOTAL BASIC METABOLIC PANEL Routi ne 10/21/2019 5:19 AM EDT [facility] GROSS EXAMINATION ONLY SURGICA L PATHOLOGY EXAM ( ONLY) Routine 10/21/2019 12:00 AM EDT 10/21/2019 12:00 :00 AM [facility] GLUCOSE QUANTITATIVE BLOOD XCPT REAGENT STRIP POCT GLUCOSE, DOC ALIS Routine 10/20/2019 11:06 PM EDT 10/20/2019 11:06:00 PM [facility] GLUCOSE QUANTITATIVE BLOOD XCPT REAGENT STRIP POCT GLUCOSE, DOC KEMonique Routine 10/20/2019 5:20 PM EDT 10/20/2019 05:20:00 PM [facility] GLUCOSE QUANTITATIVE BLOOD XCPT REAGENT STRIP POCT GLUCOSE, DOC KED Routine 10/20/2019 2:11 PM EDT 10/20/2019 02:11:00 PM [facility] GLUCOSE QUANTITATIVE BLOOD XCPT REAGENT STRIP POCT GLUCOSE, DOC KED Routine 10/20/2019 12:40 PM EDT 10/20/2019 12:40:00 PM [facility] GLUCOSE QUANTITATIVE BLOOD XCPT REAGENT STRIP POCT GLUCOSE, DOC KED Routine 10/20/2019 9:08 AM EDT 10/20/2019 09:08:00 AM [facility] GLUCOSE QUANTITATIVE BLOOD XCPT REAGENT STRIP POCT GLUCOSE, DOC KEMonique Routine 10/20/2019 4:39 AM EDT 10/20/2019 04:39:00 AM [facility] THROMBOPLASTIN TIME PARTIAL PLASMA/WHOLE BLOOD PARTIA L THROMBOPLASTIN TIME (PTT) Routine 10/20/2019 3:08 AM EDT 10/20/2019 03:08 :00 AM [facility] PROTHROMBIN TIME PROTIME INR Routine 10/20/2019 3:08 AM EDT 10/20/2019 03:08:00 AM [facility] BLOOD COUNT COMPLETE AUTO&AUTO DIFRNTL WBC COUNT CBC AND DIFFER ENTIAL Routine 10/20/2019 3:08 AM EDT 10/20/2019 03:08:00 AM [facility] PHOSPHORUS INORGANIC PHOSPHORUS LEVEL Routine 10/20/2019 3:08 AM E DT 10/20/2019 03:08:00 AM [facility] MAGNESIUM MAGNESIUM LEVEL Routine 10/20/2019 3:08 AM EDT 10/20/2019 03:08:00 AM [facility] BASIC METABOLIC PANEL CALCIUM TOTAL BASIC METABOLIC PANEL Routi ne 10/20/2019 3:08 AM EDT 10/20/2019 03:08:[address] [facility] CT ANGIOGRAPHY UPPER EXTREMITY CT ANGIOGRAPHY UPPER EXTREMITY 7 3206 STAT 10/20/2019 1:00 AM EDT 10/20/2019 01:00:00 AM [facility] GLUCOSE QUANTITATIVE BLOOD XCPT REAGENT STRIP POCT GLUCOSE, DOC VÍCTORD Routine 10/19/2019 11:16 PM EDT 10/19/2019 11:16:00 PM EDT [facility] VASC LAB US HEMODIALYSIS ACCESS VASC LAB US HEMODIALYSIS ACCESS Routine 10/19/2019 4:40 PM EDT [facility]2019 [facility] INTERPRETATION EKG ED PHYSICIAN INTERPRETATION Routine 10/19/2019 4:24 PM EDT 10/19/2019 04:24:34 PM EDT [facility] EKG 12-LEAD - CMAXX REPORT EKG 12-LEAD - CMAXX REPORT 10/19/2019 4:18 PM EDT 10/19/2019 04:18:[address] [facility] EKG 12-LEAD - CMAXX REPORT EKG 12-LEAD - CMAXX REPORT 10/19/2019 4:18 PM EDT 10/19/2019 04:18:[address] [facility] EKG 12-LEAD EKG 12-LEAD STAT 10/19/2019 4:18 PM EDT 10/19/2019 [facility] THROMBOPLASTIN TIME PARTIAL PLASMA/WHOLE BLOOD PARTIA L THROMBOPLASTIN TIME (PTT) STAT 10/19/2019 3:56 PM EDT 10/19/2019 03:56 :00 PM [facility] PROTHROMBIN TIME PROTIME INR STAT 10/19/2019 3:56 PM EDT 10/19/2019 03:56:00 PM [facility] BLOOD COUNT COMPLETE AUTO&AUTO DIFRNTL WBC COUNT CBC AND DIFFER ENTIAL STAT 10/19/2019 3:56 PM EDT 10/19/2019 03:56:00 PM [facility] HEMOGLOBIN GLYCOSYLATED A1C HEMOGLOBIN A1C Routine 10/19/2019 3:56 PM EDT 10/19/2019 [facility]:56[facility] COMPREHENSIVE METABOLIC PANEL COMPREHENSIVE METABOLIC PANEL STA T 10/19/2019 3:56 PM EDT 10/19/2019 03:56:[address] [facility] GLUCOSE QUANTITATIVE BLOOD XCPT REAGENT STRIP POCT GLUCOSE, DOC KED Routine 10/19/2019 3:22 PM EDT 10/19/2019 03:22:00 PM [facility] Dialysis Circuit W/ Transluminal Balloon Angioplasty, Periph eral 09/29/2019 12:00:00 AM EDT [facility] ([facility], ) Moderate Sedation Services; Same Phys Intl 15 Mins; PT >= 5 Years 09/29/2019 12:00:00 AM EDT [facility] ([facility], ) ECG ROUTINE ECG W/LEAST 12 LDS W/I&R 09/22/2019 12:00: 00 AM EDT [facility] ([facility]) Dialysis Circuit Percutaneous Transluminal Mechanical Thromb ectom 07/28/2019 12:00:00 AM EDT [facility] ([facility], ) Moderate Sedation Services; Same Phys Intl 15 Mins; PT >= 5 Years 07/28/2019 12:00:00 AM EDT [facility] ([facility]) Injection (SC)/(Im) 06/16/2019 12:00:00 AM EDT [facility] ([facility] ARVEN ANAST OPN UPR ARM BASILIC VEIN TRPOS 03/27/2019 12:00:00 AM EST [facility] ([facility]) ECG ROUTINE ECG W/LEAST 12 LDS W/I&R 03/22/2019 12:00: 00 AM EST [facility] ([facility]) Results ID Date Data Source [id number] 02/16/2020 12:00:00 AM EST [facility] Name Value Range Interpretation Code Description Data Tere rce(s) Supporting Document(s) SARS-CoV2 Rapid Antigen [facility] This lab was ordered by [facility] and reported by [facility]. ID Date Data Source [id number] 01/19/2020 01:30:00 PM EST [facility] ([facility] Name Value Range Interpretation Code Description Data Tere rce(s) Supporting Document(s) Glucose [Mass/volume] in Capillary blood by Glucometer 131 mg/dL 83-110 Above high normal [facility] ([facility] ) ID Date Data Source [id number] 01/19/2020 01:30:00 PM EST [facility] ([facility], ) Name Value Range Interpretation Code Description Data Tere rce(s) Supporting Document(s) Glucose [Mass/volume] in Capillary blood by Glucometer 131 mg/dL 83-110 Above high [facility] ID Date Data Source [id number] 11/03/2019 12:10:00 PM EDT [facility] Name Value Range Interpretation Code Description Data Tere rce(s) Supporting Document(s) CULTURE URINE [facility] _CULTURE URINE_$$[id number]$$[id number]$$518314$$379814$$055816$$767637$$491327$$635213$$139054$$ 781997$$358596$$691900$$843214$$481761$$674221$$396979$$475249$$254486$$358467$$ 006240$$766247$$290127$$234363$$165239$$142204$$040589$$138563 -- Continued on next page --Patient: DARIELA Goodwin Order: [id number] Page 2Culture: CULTURE URINE Status: Final ==== -- Continued on next page --Patient: DARIELA Goodwin Order: [id number] Page 2Culture: CULTURE URINE Status: Prelim =====$$[id number]$$[id number] DATE/TIME: 11/03/2019 12:06Culture: CULTURE URINE Status: FinalUrine Culture,Comprehensive: P1No growth in 36 - 48 hours. Previous result entered on 11/02/2019 01:13 ET No growth after 18-24 hours.P1 Test performed by: Ally WEBER #: [id number] [address] [place] [address] [phone] [facility] [address]Medical Director : Herman Thompson MD NPI #:Lab Priscilla jeramy : [email or web address] REF 11/03/[email or web address].SENT REF ID Date Data Source [id number] 10/26/2019 01:32:35 PM EDT [facility] Name Value Range Interpretation Code Description Data Tere rce(s) Supporting Document(s) Glucose [Mass/volume] in Capillary blood by Glucometer 118 mg/dL 70- 140 [facility] ID Date Data Source [id number] 10/26/2019 11:47:26 AM EDT [facility] Name Value Range Interpretation Code Description Data Tere rce(s) Supporting Document(s) Discharge Summary [facility] HBPZCo4rHjGBRgMs54/ILOtuCVPll6SrDRjvLSu7CWuyPNSxR4SlAPW5rT1pWLW7JAeQGaQpUvAeGRMx [facility] NzDwlEYuBbRXSiRduNLoSnVVpkXpfkvFCuWS0WbVF3IUSlW23gTOIyQKZuA3ZbAXG3YmM+Um4RADDhvH JpFG4XZnfL5Kryp5i2Rc8bCB3KwXUa9aKhySmmJr+X9MTg8GhiHe6V1PD0ppMXX3Cx1296+8Z5cM6MBv l0rKAvy0hHuXLdCxt8ttKvVKd/48905wbK40CPe/BOTTOM WHEELER [file] TAILOR GARMENT FITTER+Ya6QLRThJGd3A5R9DVXgTZt7B1CIC5IARYBaIJddOGlvVFTuYOb6S4U0BCOmK0EIS5Etpypyin1+ BN4OC42CBOToTPq0T2E8hPLdB8U2yTfJoHW9YE0VZP8CuZw1qHTmwA7+DG5EE2EAKmOoSWi0F0N7vQFw N7F9qAoLjWG5FF7FBX5JuGSwVDIasgByQf4dH8GVPF qVSpRIWCL2IJ2RqZNmDK8PzNXKN7YlpIIbHt8qJRrfkPBnrH8cVk3jTSdzGS4JNlFDXJyFPSR4UM9IjM JoRE1LxHBQA3RxnYIpLh1hSUqvoJYtku2+EO0FOZYwPk1LWt7+BQmxxjIiOtkMAjHnWJTlf6HfEEe7OK 4IMK9utKgsTTO3Ur9MzJM9cQLbY3jAOL0TjVCcD70c sSLvHYGlJq0WMiV0dmUbgE5JJB23jVNmk8H4APFxU2dfUTqjz36dJOpfJKyTFE7bYHUAYDiuFKfbUOF4 CeVcrajjDHBlOn0AQuTmIYg5mF1haTO3APE7ZssztVYdHFjlLbKpJvNeWyG6gHiuqbq3BUonDO7lOWgq czptZXRhLyc+CJmnCWGiRDSpXpxHZOOopV1zcmT1wi JzLZcoaPMuIo3cw1p1JndiCg6dJt9bVTt3BlZoMoPySDVxXg4caJ06DMlyhpUcNd2SIlXrGBF7E2KhXy pSREY+HNiwJVfntUk8yINoGVFiPi1RUXGqBBQtFBCfBIOdIABcGOHbYEAhPZZbIQVkZVGaTSMmSDNnYK AgICAgICAgICAgICAgICAgICAgICAgICAgICAgICAg HIJrRCNtGMVvHBMwWFLyVLUjPMSxOKBsLZRgXFNkQN9MDIAyZHKcKOVbRLOlCCGiJUYxGQTyBTXrUAOs ICAgICAgICAgICAgICAgICAgICAgICAgICAgICAgICAgICAgICAgICAgICAgICAgICAgICAgICAgICAg IEKcKBCqNRMaVRWwBX8SVEHhGXEfFLSiOYLkAVGlUE AgICAgICAgICAgICAgICAgICAgICAgICAgICAgICAgICAgICAgICAgICAgICAgICAgICAgICAgICAgIC AxFIMbKRDiWJAsRGAbGFJvPMNzDTOmFC9WXRTxSDEjRMElJJJgHXUoLTHxMDNkYMDbQYQaIRZpDGLwMQ AgICAgICAgICAgICAgICAgICAgICAgICAgICAgICAg LMOwEXQeXVGmLUEpODAaPIXjXDPjPRZcBVAiWOEqWAMhDE6ITHMxSVTxEVGtQDHvTXRySHCxSHIeQTLb ICAgICAgICAgICAgICAgICAgICAgICAgICAgICAgICAgICAgICAgICAgICAgICAgICAgICAgICAgICAg WBPmFZSqKTKqQZZvKBUnGH8FMNWdCENrYRYlCMHnCY AgICAgICAgICAgICAgICAgICAgICAgICAgICAgICAgICAgICAgICAgICAgICAgICAgICAgICAgICAgIC GvSVQbTUKpGYNaYGHgNEWqUJMpFJGeUAQrHR3UZMVdLUZvGQFpZSWfLVKjHJLdPWGuUCKsLNEqMVTlKU AgICAgICAgICAgICAgICAgICAgICAgICAgICAgICAg HJZcFMEpJLShKONfKEYhWCYxDWKuXSNdGEZyFUXcLYLkSLEqBH9MRJXsKTUxMZWhANNdFHEySNUgJISz ICAgICAgICAgICAgICAgICAgICAgICAgICAgICAgICAgICAgICAgICAgICAgICAgICAgICAgICAgICAg XTDhZIEaFHBrPIGgWJSiASBtMQ6RLXMlEQEhWRQmTU AgICAgICAgICAgICAgICAgICAgICAgICAgICAgICAgICAgICAgICAgICAgICAgICAgICAgICAgICAgIC McQBKlDYTxFXEbVFBeIANgIWCjASIkWGFzTMMmXF5GKBLmYUVlRONhYLYePMIoHPOuRJFnXHSfLHYfOU AgICAgICAgICAgICAgICAgICAgICAgICAgICAgICAg AQYmLMXxKIWsXPRgQHNpRIHfIVYpYIXsISMoLJIsYREfBTCrKBEdRF1WYM83lEXdd2R6ZXTvVP2iunc/ Vk3PJEzgikRxoESsAO9HCwIvLD7vov8OYoEtUF5pmf9GSSdUHjIjJ3U3iPZoELAsGQRFYbWfY72lBMuf Zd20JUxwDBMpVoZmAGv2Yy8OIrBzJ7bbKYAlYuT6AQ YoCqD9FJIvKcT7MYUyIrYcWYZnAFOtBFMtNRKRQDQ0VYFlXwBqWmUjDAWaQU6HKHFcS290gkIbGg3ONl 8CYvVcUW1ekj7LGABgJLWjWkuASvo2VTasGM1WvFSveTH2GkAiQPENTpXcJ7sza7TvCDLxMAERUCkcOT 7Lk3UdyKZxEEx+Sp9VDL2gd2NiZIe6AoDmXN6qlr7X IZgCStHlI9OxhFqtVKXmp1XrORAbQOUQlB0pVZH8RHA2DQ8veSSfDDQlRNBRusW2lXokRuMnLOIbTH9v Xj5mKQMcXFB3EjS2UJZMUG8UKXVeITQjzNAzJKNdVZIDHK4IQUdhAGJ2LKNxlaNxpKJpTUtkTX8CQFDs bnQgNDIgMCBSDQo+Cq3ANL2pt1QbKEc1NSVrXZ7alc 5RNNmAPwAgA5I6gQMqP2X1BUljBe3CLVNbRQPeEIGsZFXOKMakCT8VHH9cybM3WJ1UvQDyPEIcBEYpkD VhKKi7E99utPAgEYurLG7FBCY+Saulo+Ka6YNKKvYXMqLIKxGoEvGYFUWzUhR7ZfV3BWw2WvQ1CjMN33pF xqhbKqTYoiSB8OLI8nBRRePRIAMS9FaUJyhT7egbV7 DcZjOHXXJgVvK54srMOoTRXpIXQsZJNqIq3KKDZeB8ZapoRazDimbnAgXBOsCHCAHM9VUOefjeHvgTYd iVyeLE71yJqfAP7DVf8ANqWmSY0wcf1RdRAkNq4CGJN7SW5LNPByNKHrJGOePJO4YCRmArGkOBapJVPv JXHdVGB1EUYtUTPkVU3OOjOiRINjCFMfZHSzVFTvIC Ywqn3CMOEhVXL0NyyuCmNuLHNuLAKwJQtqWBKbGTXkDIU0DTAwIESwOB1TEbHpCSZtHSW7ElUsLZGjLW Wocv3GOMLbPWYvXgT8QDMrWZVbMLQnLJqfFPEuFBF2WKi9HIBtVTEjLY9ZKdTkWGSuIAK7AVqfNKRfYJ Bllk2ZYKZyXGYkARf0KZDxUSQpFJXtYUefKRLcXJQ1 UEPwHLLqLBAgXN3CHsGqKNXvNDHgQfHxTAXyTJKqud6QONRwDFBmDRZgHKOuDOEbYAViTRccDSXvPPBh VdF2RZUbYAHlFQ9SZvLrUVSmECW4LqLhKNDzVOGnzt3PKVGtSFBdAnK7XNBaXKBxQZTvNLfxZXXdYYK0 Rek0OMKsWXZvRJ5CAhNzDZJeLEt3BBRxUYKcLNFcxb 5FUCOqRNIeZsBeKKIfVWTwDCUgZVzfWUAvVOJ3LZpzBIRxGNQeAD3CPwWtASXpMUy3EgfpWJNjUQYlas 1LVYZtZSHzOTc2QFMcJAVpATVbGLrqHVFfVEL7PHO0BJVaZGAeOI7GGvCmVFUjWfTlXFVpXQArEWAjbc 6SDKLdXEPlBLF1QJCyQKYiFNFuZBvbHCLrFGWxHkR9 RNMqOEWuFV9EWgMaVXImWnW0HHYcUMRpBOZrsd7MJCSjDSImSRWpBPAmPTWpWSZrYRhdYNAxJFFzXMR3 BTXxEDWxTY7NUtQjCYCfUjInPBSlPORtTPCccn2SGPFvXEAwErF3BGBmGAOlGOXnZOojHDGuEMVtXpme CDZfJNZjVS9BXgLtZRSnHpC9XnKxHRPkDEKvfx5DPO BuNBCfESg9YOXmVENcRCQwQQpbZAFkHWG9ABM0SUByRKLhVN3PMhZtMOMuHwJnPQSaCLHySGApll6URU UkJJX5APJcPpGyCMHeZKPtKSogTWMnIZUbCMC9FUJcRVWyIX5AOfPqBKHrAGJ9QhJkUUAlTMDfho5BDO GeFCL7BGr8ONYbVRKmHRNoLQrqCARpDOTfBDP8DFKp SVGpHQ6QOfPcLMWaEPL0SnttTSCoYULlqk7YSVLxFQT6Ovf2JQMqUZDtIUOrSSnjXOUpHBQnEJI2FBXi AWLxJF9HCkZuHAAvVUFsHoqhFPNrNLKlqz2DwNVafNcgof2FUGnNBw3JyBiqOTV5ZTwoMk5tkOD0SNBs GHPCCj1IpdCnSBEvBWOMBUqnOLHjREZ3KLirVRQxTL HbFyIaGSTnG3Q1VVHbLARiJtBcUIA8AxW6NhEaMaXeTVEgVbZlAiE8OMO8GOgqUQN8XDY1AVVoMtw+IF 0gDQo+Oy3Pr0CyarF8yvBqCCx1AkSxAr5OADJJU2ULQu== ID Date Data Source [id number] 10/26/2019 08:52:56 AM [facility] Value Range Interpretation Code Description Data Tere rce(s) Supporting Document(s) Glucose [Mass/volume] in Capillary blood by Glucometer 130 mg/dL 70- 140 [facility] ID Date Data Source [id number] 10/26/2019 06:27:32 AM [facility] Value Range Interpretation Code Description Data Tere rce(s) Supporting Document(s) Glucose [Mass/volume] in Capillary blood by Glucometer 96 mg/dL 70- 140 [facility] ID Date Data Source [id number] 10/26/2019 07:45:48 AM [facility] Value Range Interpretation Code Description Data Tere rce(s) Supporting Document(s) Bicarbonate [Moles/volume] in Serum 21 mmol/L 22-29 L [facility] Chloride [Moles/volume] in Serum or Plasma 92 mmol/L 98-107 L [facility] Creatinine [Mass/volume] in Serum or Plasma 6.21 mg/dL 0.70-1.20 H [facility] Glucose [Mass/volume] in Serum or Plasma 135 mg/dL 70-140 [facility] Potassium [Moles/volume] in Serum or Plasma 4.6 mmol/L 3.4-5.1 [facility] Sodium [Moles/volume] in Serum or Plasma 126 mmol/L 136-145 L [facility] Urea nitrogen [Mass/volume] in Serum or Plasma 74 mg/dL 8-23 H [facility] Anion gap 3 in Serum or Plasma 13 mmol/L 8-15 [facility] Osmolality of Serum or Plasma by calculation 286 mosm/kg 275-300 [facility] Creatinine/Urea nitrogen [Mass Ratio] in Serum or Plasma 12 [facility] Calcium [Mass/volume] in Serum or Plasma 8.5 mg/dL 8.8-10.2 L [facility] Glomerular filtration rate/1.73 sq M pre dicted among non-blacks [Volume Rate/Area] in Serum or Plasma by Creatinine-based formula (MDRD) 8 mL/min/1.73m2 >60 L [facility] Glomerular filtration rate/1.73 sq M pre dicted among blacks [Volume Rate/Area] in Serum or Plasma by Creatinine-based formula (MDRD) 9 mL/min/1.73m2 >60 L [facility] ID Date Data Source [id number] 10/26/2019 12:20:39 AM [facility] Name Value Range Interpretation Code Description Data Tere rce(s) Supporting Document(s) Glucose [Mass/volume] in Capillary blood by Glucometer 144 mg/dL 70- 140 H [facility] ID Date Data Source [id number] 10/25/2019 05:29:30 PM [facility] Value Range Interpretation Code Description Data Tere rce(s) Supporting Document(s) Glucose [Mass/volume] in Capillary blood by Glucometer 167 mg/dL 70- 140 [facility] ID Date Data Source [id number] 10/25/2019 12:10:48 PM [facility] Name Value Range Interpretation Code Description Data Tere rce(s) Supporting Document(s) Glucose [Mass/volume] in Capillary blood by Glucometer 163 mg/dL 70- 140 [facility] ID Date Data Source [id number] 10/25/2019 08:12:29 AM [facility] Value Range Interpretation Code Description Data Tere rce(s) Supporting Document(s) Glucose [Mass/volume] in Capillary blood by Glucometer 146 mg/dL 70- 140 [facility] ID Date Data Source [id number] 10/26/2019 10:12:40 AM [facility] XXX-Imp : NoneMicroorganism XXX Cult : Greater than 100,000 col/mlKlebsiella oxytocaATTENTION This species is always resistant to ampicillin and ticarcillin. Name Value Range Interpretation Code Description Data Tere rce(s) Supporting Document(s) ID Date Data Source [id number] 10/25/2019 05:24:30 AM [facility] Value Range Interpretation Code Description Data Tere rce(s) Supporting Document(s) Leukocytes [#/volume] in Blood by Automated count 6.5 10*3/uL 4-10 [facility] Erythrocytes [#/volume] in Blood by Automated count 2.65 10*6/uL 4.6- 6.1 L [facility] Hemoglobin [Mass/volume] in Blood 8.3 g/dL 13.5-18 L [facility] Hematocrit [Volume Fraction] of Blood by Automated count 23.9 % 4 1-53 L [facility] Erythrocyte mean corpuscular volume [Entitic volume] by Auto mated count 90.3 fL 80-96 [facility] Erythrocyte mean corpuscular hemoglobin [Entitic mass] by Automated count 31.4 pg 27-33 [facility] Erythrocyte mean corpuscular hemoglobin concentration [Mass/volume] by Automated count 34.8 g/[facility].0-[facility] width [Ratio] by Automated count 14.0 % 11.5-14.5 [facility] Platelets [#/volume] in Blood by Automated count 170 10*3/uL 150-400 [facility] ID Date Data Source [id number] 10/25/2019 05:43:20 AM EDT [facility] Name Value Range Interpretation Code Description Data Tere rce(s) Supporting Document(s) Bicarbonate [Moles/volume] in Serum 24 mmol/L 22-29 [facility] Chloride [Moles/volume] in Serum or Plasma 92 mmol/L 98-107 L [facility] Creatinine [Mass/volume] in Serum or Plasma 5.29 mg/dL 0.70-1.20 H [facility] Glucose [Mass/volume] in Serum or Plasma 148 mg/dL 70-140 H [facility] Potassium [Moles/volume] in Serum or Plasma 4.4 mmol/L 3.4-5.1 [facility] Sodium [Moles/volume] in Serum or Plasma 128 mmol/L 136-145 L [facility] Urea nitrogen [Mass/volume] in Serum or Plasma 63 mg/dL 8-23 H [facility] Anion gap 3 in Serum or Plasma 13 mmol/L 8-15 [facility] Osmolality of Serum or Plasma by calculation 287 mosm/kg 275-300 [facility] Creatinine/Urea nitrogen [Mass Ratio] in Serum or Plasma 12 [facility] Calcium [Mass/volume] in Serum or Plasma 8.9 mg/dL 8.8-10.2 [facility] Glomerular filtration rate/1.73 sq M pre dicted among non-blacks [Volume Rate/Area] in Serum or Plasma by Creatinine-based formula (MDRD) 9 mL/min/1.73m2 >60 L [facility] Glomerular filtration rate/1.73 sq M pre dicted among blacks [Volume Rate/Area] in Serum or Plasma by Creatinine-based formula (MDRD) 11 mL/min/1.73m2 >60 L [facility] ID Date Data Source [id number] 10/25/2019 05:35:51 AM EDT [facility] Name Value Range Interpretation Code Description Data Tere rce(s) Supporting Document(s) Color of Urine [facility] Clarity of Urine [facility] Specific gravity of Urine by Refractometry automated 1.016 1.003 -1.030 [facility] pH of Urine by Automated test strip 5.0 5.0-8.0 [facility] Protein [Mass/volume] in Urine by Automated test strip 100 mg/dL Neg [facility] Glucose [Mass/volume] in Urine by Automated test strip Neg [facility] Ketones [Mass/volume] in Urine by Automated test strip Neg [facility] Bilirubin.total [Presence] in Urine by Automated test strip Negative [facility] Hemoglobin [Presence] in Urine by Automated test strip [facility] Leukocyte esterase [Presence] in Urine by Automated test strip Negative [facility] Nitrite [Presence] in Urine by Automated test strip [facility] Leukocytes [#/area] in Urine sediment by Automated count 4613 /HPF 0 -5 H [facility] Erythrocytes [#/area] in Urine sediment by Automated count 7 /HPF 0-3 H [facility] Bacteria [#/area] in Urine sediment by Automated count Non e A [facility] ID Date Data Source [id number] 10/24/2019 10:47:30 PM EDT [facility] Value Range Interpretation Code Description Data Tere rce(s) Supporting Document(s) Glucose [Mass/volume] in Capillary blood by Glucometer 172 mg/dL 70- 140 [facility] ID Date Data Source [id number] 10/24/2019 05:31:21 PM [facility] Value Range Interpretation Code Description Data Tere rce(s) Supporting Document(s) Glucose [Mass/volume] in Capillary blood by Glucometer 166 mg/dL 70- 140 [facility] ID Date Data Source [id number] 10/24[facility]2019 06:52:[facility] PRIORITYMicronatalia nis XXX Cult : 2019 nCoV Real-Time RT- PCR: NOT DETECTEDTest performed using [employer] Respiratory Panel. This test is only for use under Food and Drug Administration's Emergency Use Authorization.Additional information is available on the following FDA websites for health care providers and patients. https://www.fda.gov/media/544690/download , https://www.fda.Manta v/media/060862/downloadPolymerase chain reaction is NEGATIVE for Influenza A H1, H3 and 2009 H1 viruses, Influenza B virus, Respiratory syncytial virus, Human metapneumovirus, Parainfluenza virus 1,2,3 and 4, Adenovirus, Rhinovirus/ Enterovirus, Coronavirus HKU1, NL63, OC43 and 229E, Bordetella pertussis, B. parapertussis, Mycoplasma pneumoniae and Chlamydia pneumoniae. Name Value Range Interpretation Code Description Data Tere rce(s) Supporting Document(s) ID Date Data Source [id number] 10/24/2019 04:48:00 [facility] PRIORITYMicronatalia [facility] XXX Cult : 2019 nCoV Real-Time RT- PCR: NOT DETECTEDTest performed using [employer] Respiratory Panel. This test is only for use under Food and Drug Administration's Emergency Use Authorization.Additional information is available on the following FDA websites for health care providers and patients. https://www.fda.gov/media/120562/download , https://www.fda.Dials/media/229099/downloadPolymerase chain reaction is NEGATIVE for Influenza A H1, H3 and 2009 H1 viruses, Influenza B virus, Respiratory syncytial virus, Human metapneumovirus, Parainfluenza virus 1,2,3 and 4, Adenovirus, Rhinovirus/ Enterovirus, Coronavirus HKU1, NL63, OC43 and 229E, Bordetella pertussis, B. parapertussis, Mycoplasma pneumoniae and Chlamydia pneumoniae. Name Value Range Interpretation Code Description Data Tere rce(s) Supporting Document(s) Microorganism identified in Unspecified specimen by [facility] This lab was ordered by [facility] and reported by [facility]. ID Date Data Source [id number] 10/24/2019 12:03:24 PM [facility] Name Value Range Interpretation Code Description Data Tere rce(s) Supporting Document(s) Glucose [Mass/volume] in Capillary blood by Glucometer 168 mg/dL 70- 140 [facility] ID Date Data Source [id number] 10/24/2019 08:00:56 AM [facility] Value Range Interpretation Code Description Data Tere rce(s) Supporting Document(s) Glucose [Mass/volume] in Capillary blood by Glucometer 168 mg/dL 70- 140 [facility] ID Date Data Source [id number] 10/24/2019 04:58:59 AM [facility] Value Range Interpretation Code Description Data Tere rce(s) Supporting Document(s) Bicarbonate [Moles/volume] in Serum 21 mmol/L 22-29 L [facility] Chloride [Moles/volume] in Serum or Plasma 96 mmol/L 98-107 [facility] Creatinine [Mass/volume] in Serum or Plasma 4.01 mg/dL 0.70-1.20 H [facility] Glucose [Mass/volume] in Serum or Plasma 192 mg/dL 70-140 H [facility] Potassium [Moles/volume] in Serum or Plasma 4.4 mmol/L 3.4-5.1 [facility] Sodium [Moles/volume] in Serum or Plasma 129 mmol/L 136-145 L [facility] Urea nitrogen [Mass/volume] in Serum or Plasma 42 mg/dL 8-23 H [facility] Anion gap 3 in Serum or Plasma 12 mmol/L 8-15 [facility] Osmolality of Serum or Plasma by calculation 284 mosm/kg 275-300 [facility] Creatinine/Urea nitrogen [Mass Ratio] in Serum or Plasma 10 [facility] Calcium [Mass/volume] in Serum or Plasma 8.2 mg/dL 8.8-10.2 L [facility] Glomerular filtration rate/1.73 sq M pre dicted among non-blacks [Volume Rate/Area] in Serum or Plasma by Creatinine-based formula (MDRD) 13 mL/min/1.73m2 >60 L [facility] Glomerular filtration rate/1.73 sq M pre dicted among blacks [Volume Rate/Area] in Serum or Plasma by Creatinine-based formula (MDRD) 15 mL/min/1.73m2 >60 L [facility] ID Date Data Source [id number] 10/23/2019 09:05:58 PM [facility] Value Range Interpretation Code Description Data Tere rce(s) Supporting Document(s) Glucose [Mass/volume] in Capillary blood by Glucometer 170 mg/dL 70- 140 H [facility] ID Date Data Source [id number] 10/23/2019 05:33:13 PM [facility] Value Range Interpretation Code Description Data Tere rce(s) Supporting Document(s) Glucose [Mass/volume] in Capillary blood by Glucometer 159 mg/dL 70- 140 H [facility] ID Date Data Source [id number] 10/23/2019 01:22:36 PM [facility] Value Range Interpretation Code Description Data Tere rce(s) Supporting Document(s) Glucose [Mass/volume] in Capillary blood by Glucometer 119 mg/dL 70- 140 [facility] ID Date Data Source [id number] 10/23/2019 07:23:12 AM [facility] Value Range Interpretation Code Description Data Tere rce(s) Supporting Document(s) Glucose [Mass/volume] in Capillary blood by Glucometer 127 mg/dL 70- 140 [facility] ID Date Data Source [id number] 10/23/2019 06:32:51 AM [facility] Value Range Interpretation Code Description Data Tere rce(s) Supporting Document(s) Leukocytes [#/volume] in Blood by Automated count 6.0 10*3/uL 4-10 [facility] Erythrocytes [#/volume] in Blood by Automated count 2.65 10*6/uL 4.6- 6.1 L [facility] Hemoglobin [Mass/volume] in Blood 8.3 g/dL 13.5-18 L [facility] Hematocrit [Volume Fraction] of Blood by Automated count 24.0 % 4 1-53 L [facility] Erythrocyte mean corpuscular volume [Entitic volume] by Auto mated count 90.8 fL 80-96 [facility] Erythrocyte mean corpuscular hemoglobin [Entitic mass] by Automated count 31.3 pg 27-33 [facility] Erythrocyte mean corpuscular hemoglobin concentration [Mass/volume] by Automated count 34.4 g/dL 32.0-36.[facility] distribution width [Ratio] by Automated count 14.0 % 11.5-14.5 [facility] Platelets [#/volume] in Blood by Automated count 101 10*3/uL 150-400 L [facility] Differential cell count method - Blood [facility] Neutrophils/100 leukocytes in Blood by Automated count 86 % [facility] Lymphocytes/100 leukocytes in Blood by Automated count 5 % [facility] Monocytes/100 leukocytes in Blood by Automated count 8 % [facility] Eosinophils/100 leukocytes in Blood by Automated count 1 % [facility] Basophils/100 leukocytes in Blood by Automated count 0 % [facility] Neutrophils [#/volume] in Blood by Automated count 5.13 10*3/uL 1.8-7 .0 [facility] Lymphocytes [#/volume] in Blood by Automated count 0.28 10*3/uL 1.2-4 .0 L [facility] Monocytes [#/volume] in Blood by Automated count 0.45 10*3/uL 0-0.8 [facility] Eosinophils [#/volume] in Blood by Automated count 0.07 10*3/uL 0-0.5 [facility] Basophils [#/volume] in Blood by Automated count 0.03 10*3/uL 0-0.2 [facility] Nucleated erythrocytes/100 leukocytes [Ratio] in Blood by Automated count 0 /100{WBCs} 0-0 [facility] ID Date Data Source [id number] 10/23/2019 06:45:10 AM [facility] Value Range Interpretation Code Description Data Tere rce(s) Supporting Document(s) Prothrombin time (PT) 17.0 s 12.5-14.9 H [facility] INR in Platelet poor plasma by Coagulation assay 1.36 [facility] Routine intensity oral anticoagulation I NR is typically 2.0-3.0. Target INR must be clinically individualized. ID Date Data Source [id number] 10/23/2019 06:45:10 AM [facility] Value Range Interpretation Code Description Data Tere rce(s) Supporting Document(s) aPTT in Platelet poor plasma by Coagulation assay 33.7 s 24.0-33. 0 H [facility] ID Date Data Source [id number] 10/23/2019 06:55:08 AM EDT [facility] Name Value Range Interpretation Code Description Data Tere rce(s) Supporting Document(s) Bicarbonate [Moles/volume] in Serum 25 mmol/L 22-29 [facility] Chloride [Moles/volume] in Serum or Plasma 97 mmol/L 98-107 L [facility] Creatinine [Mass/volume] in Serum or Plasma 5.41 mg/dL 0.70-1.20 H [facility] Glucose [Mass/volume] in Serum or Plasma 135 mg/dL 70-140 [facility] Potassium [Moles/volume] in Serum or Plasma 4.3 mmol/L 3.4-5.1 [facility] Sodium [Moles/volume] in Serum or Plasma 132 mmol/L 136-145 L [facility] Urea nitrogen [Mass/volume] in Serum or Plasma 71 mg/dL 8-23 H [facility] Anion gap 3 in Serum or Plasma 10 mmol/L 8-15 [facility] Osmolality of Serum or Plasma by calculation 297 mosm/kg 275-300 [facility] Creatinine/Urea nitrogen [Mass Ratio] in Serum or Plasma 13 [facility] Calcium [Mass/volume] in Serum or Plasma 8.8 mg/dL 8.8-10.2 [facility] Glomerular filtration rate/1.73 sq M pre dicted among non-blacks [Volume Rate/Area] in Serum or Plasma by Creatinine-based formula (MDRD) 9 mL/min/1.73m2 >60 L [facility] Glomerular filtration rate/1.73 sq M pre dicted among blacks [Volume Rate/Area] in Serum or Plasma by Creatinine-based formula (MDRD) 11 mL/min/1.73m2 >60 L [facility] ID Date Data Source [id number] 10/23/2019 06:55:08 AM [facility] Name Value Range Interpretation Code Description Data Tere rce(s) Supporting Document(s) Magnesium [Mass/volume] in Serum or Plasma 1.8 mg/dL 1.6-2.4 [facility] ID Date Data Source [id number] 10/23/2019 06:55:08 AM [facility] Value Range Interpretation Code Description Data Tere rce(s) Supporting Document(s) Phosphate [Mass/volume] in Serum or Plasma 3.4 mg/dL 2.5-4.5 [facility] ID Date Data Source [id number] 10/22/2019 06:27:01 PM EDT [facility] Name Value Range Interpretation Code Description Data Tere rce(s) Supporting Document(s) Glucose [Mass/volume] in Capillary blood by Glucometer 146 mg/dL 70- 140 H [facility] ID Date Data Source [id number] 10/22/2019 12:25:41 PM EDT [facility] Name Value Range Interpretation Code Description Data Tere rce(s) Supporting Document(s) Glucose [Mass/volume] in Capillary blood by Glucometer 147 mg/dL 70- 140 H [facility] ID Date Data Source [id number] 10/22/2019 08:26[facility] Value Range Interpretation Code Description Data Tere rce(s) Supporting Document(s) [facility] [id number]/TDZsvFLQev9EjMYyxROu5LCptQKGmR9UwVFG5gP1nYWV9YJhAVxEpZpXrDRZ6 [facility] [file] ICAgICAgICAgICAgICAgICAgICAgICAgICAgICAgIC AgICAgICAgICAgICAgICAgICAgICAgICAgICAgICAgICAgICAgICAgICAgICAgDQogICAgICAgICAgIC AgICAgICAgICAgICAgICAgICAgICAgICAgICAgICAgICAgICAgICAgICAgICAgICAgICAgICAgICAgIC AgICAgICAgICAgICAgICAgICAgICAgICAgICAgDQog ICAgICAgICAgICAgICAgICAgICAgICAgICAgICAgICAgICAgICAgICAgICAgICAgICAgICAgICAgICAg ICAgICAgICAgICAgICAgICAgICAgICAgICAgICAgICAgICAgICAgDQogICAgICAgICAgICAgICAgICAg ICAgICAgICAgICAgICAgICAgICAgICAgICAgICAgIC AgICAgICAgICAgICAgICAgICAgICAgICAgICAgICAgICAgICAgICAgICAgICAgICAgDQogICAgICAgIC AgICAgICAgICAgICAgICAgICAgICAgICAgICAgICAgICAgICAgICAgICAgICAgICAgICAgICAgICAgIC AgICAgICAgICAgICAgICAgICAgICAgICAgICAgICAg DQogICAgICAgICAgICAgICAgICAgICAgICAgICAgICAgICAgICAgICAgICAgICAgICAgICAgICAgICAg ICAgICAgICAgICAgICAgICAgICAgICAgICAgICAgICAgICAgICAgICAgDQogICAgICAgICAgICAgICAg ICAgICAgICAgICAgICAgICAgICAgICAgICAgICAgIC AgICAgICAgICAgICAgICAgICAgICAgICAgICAgICAgICAgICAgICAgICAgICAgICAgICAgDQogICAgIC AgICAgICAgICAgICAgICAgICAgICAgICAgICAgICAgICAgICAgICAgICAgICAgICAgICAgICAgICAgIC AgICAgICAgICAgICAgICAgICAgICAgICAgICAgICAg ICAgDQogICAgICAgICAgICAgICAgICAgICAgICAgICAgICAgICAgICAgICAgICAgICAgICAgICAgICAg ICAgICAgICAgICAgICAgICAgICAgICAgICAgICAgICAgICAgICAgICAgICAgDQogICAgICAgICAgICAg ICAgICAgICAgICAgICAgICAgICAgICAgICAgICAgIC RgPJZcSQVwSGLjMUTgDVQpBIUkTFRtLPYbYWKsTMGcSYRxWHLgEAFnWMIbGWHjOHDsGWLvOMFdCSg2H3 wiNBSbPQJiCU3hRCd8Ad3+BRnDBaPgPCZ3ciUzcB5SWH3uu3WpNPkoKYAxp1UvHKu3TG1LRXQoXDzaLI 1STSmjkv0FLHSsCUOcnRCBu5cfQcRiCHW1RNFrLfcs UZ4LOOFeL3drcrUnSZKhBPYTHG1OEfZwR8CwfF11QGBIDj2+VUycrlQqMloBDcL2YJVwq6CpLKt0KO6S ROTzOajmv4YmFXxaLQNWAQcmWR1DDCT3HCQ8WJSxXw0VYTPpI322pxGjDS7LQc5DEiCpNB5xhx9VZMiu ACUsYfxTTxi5QZifDT5ZfSPgUKfMvMNxKXKxeiLhFw 85ILVcaOQKoFPeENErXHczW65hfHPvzvDnDR4VJIU8MXvjIL9zQZPjJJB1XvNfPMFIRQ5HVQWxHSFcrN YuGGCwKIKRQJ4MQRdxZQH0OCJxllOgxJEeYZqkEA3KCIVisrYpNPwiTYVOYWs+Ov0RKT5sy2VcNQpdEW IjKN6hor0IPPgSCiBqI8A6qYGyH1E2XHfhHo8QQMVf KPZuFLXgJNDEIXmzHP2PVD3ujmF0YS6RaYJhGNHdAMOmlJKhDKi3M71joKOhTYbfQJ1IZFA+Saulo+Pg0K MPLxZEZzRPPoAlVwYEYMFwTpA7RuN9OCm9VfU9ZkGR21sGwezpLmRNtzDW4UWN2tYAIlTJBYQZ2RlWVo tP9yzlWuDbEzDJNVIdBpR61hkIAcQTXmTVH9QVLtRz 2YKWNrM6FwyeZmhRkdgtSwHBLeUSUZLF0LFZojlpSouVIzmMhwOL05wPjfKP2IBe3GTpGyRB9ywu4CaU HsDj1ILKUrJS5YYNXxTGAeEGVyKBZ1OKKsCkSoJHyrPREiWFAiEEQ4TIQuKVFyRD2DUvWyVFKcGJg1YF MzDJTqHVNqdo2IYUKiDXWsSLH0AIQmCHMpCBAbKXes PQOuZOKlTPG1OVIxREHtND6XDsIeDJGcPFCrTQJdGDXxPKPfre0GDAGlGKLmTzR4NqBaKSQdKOYmMHqs VOInCZS7NXT5DOPhMYCmRR7EWtZvUSEaKQQ2YKArCPEjPQXefq4LXGUtHSKsHXw1ErQlANYcCHXdXMxn OWPaTWI3ASGvVBDrRCWuIR6ZIcSrPICvTFWiWHDtGM KtJCQgwq4CUHJzHWMlAoIlPHUgUEYyFXQdMVviUTOuVOK5ZTz1YTPhIJTwNM7IDxXaCGCbDXydFAZeCB WdCYBnnk8MDRBiBQRaFvI6RYGpRTEeYZBfPKufOEKfLRW6GSRaVUEcTPUdUC4GZlCdNBRtGWk3KlepKG XyQPLeyn2AKTNxYTTnPEFnEESmCBWbZFJlYCazDZMy QSO5HkYcSYKvSDHrKC2KZqJiTLorTYIKKmd1GEouZ3w2OKJeXL3IF7Dlk9GxJPnlQJZXCSvwDN2iyaWp WUMcCb5JP0wDKfo8CLPgSFNnGFjsUvKiYWjjQ5AwA3W4FPMhIOl6VLpqSx1cFQajDNAaFAI4PJMqYYTc ReT4ByKxUtGgMKE2TFPvRFLiJzIhXB0PIp9MGjR0YWZ9dJAuGc0FBVclKi7HQUFOC9ISRo== ID Date Data Source [id number] 10/22/2019 08:31:04 AM EDT [facility] Name Value Range Interpretation Code Description Data Tere rce(s) Supporting Document(s) Glucose [Mass/volume] in Capillary blood by Glucometer 176 mg/dL 70- 140 H [facility] ID Date Data Source [id number] 10/22/2019 07:06:38 AM EDT [facility] Name Value Range Interpretation Code Description Data Tere rce(s) Supporting Document(s) Leukocytes [#/volume] in Blood by Automated count 4.0 10*3/uL 4-10 [facility] Erythrocytes [#/volume] in Blood by Automated count 2.62 10*6/uL 4.6- 6.1 L [facility] Hemoglobin [Mass/volume] in Blood 8.3 g/dL 13.5-18 L [facility] Hematocrit [Volume Fraction] of Blood by Automated count 23.9 % 4 1-53 L [facility] Erythrocyte mean corpuscular volume [Entitic volume] by Auto mated count 91.0 fL 80-96 [facility] Erythrocyte mean corpuscular hemoglobin [Entitic mass] by Automated count 31.6 pg 27-33 [facility] Erythrocyte mean corpuscular hemoglobin concentration [Mass/volume] by Automated count 34.8 g/dL 32.0-36.0 [facility] width [Ratio] by Automated count 13.9 % 11.5-14.5 [facility] Platelets [#/volume] in Blood by Automated count 103 10*3/uL 150-400 L [facility] Differential cell count method - Blood [facility] Neutrophils/100 leukocytes in Blood by Automated count 80 % [facility] Lymphocytes/100 leukocytes in Blood by Automated count 9 % [facility] Monocytes/100 leukocytes in Blood by Automated count 8 % [facility] Eosinophils/100 leukocytes in Blood by Automated count 2 % [facility] Basophils/100 leukocytes in Blood by Automated count 1 % [facility] Neutrophils [#/volume] in Blood by Automated count 3.23 10*3/uL 1.8-7 .0 [facility] Lymphocytes [#/volume] in Blood by Automated count 0.35 10*3/uL 1.2-4 .0 L [facility] Monocytes [#/volume] in Blood by Automated count 0.32 10*3/uL 0-0.8 [facility] Eosinophils [#/volume] in Blood by Automated count 0.08 10*3/uL 0-0.5 [facility] Basophils [#/volume] in Blood by Automated count 0.02 10*3/uL 0-0.2 [facility] Nucleated erythrocytes/100 leukocytes [Ratio] in Blood by Automated count 0 /100{WBCs} 0-0 [facility] ID Date Data Source [id number] 10/22/2019 07:22:02 AM [facility] Name Value Range Interpretation Code Description Data Tere rce(s) Supporting Document(s) Magnesium [Mass/volume] in Serum or Plasma 1.8 mg/dL 1.6-2.4 [facility] ID Date Data Source [id number] 10/22/2019 07:22:02 AM [facility] Name Value Range Interpretation Code Description Data Tere rce(s) Supporting Document(s) Bicarbonate [Moles/volume] in Serum 25 mmol/L 22-29 [facility] Chloride [Moles/volume] in Serum or Plasma 98 mmol/L 98-107 [facility] Creatinine [Mass/volume] in Serum or Plasma 4.34 mg/dL 0.70-1.20 H [facility] Glucose [Mass/volume] in Serum or Plasma 174 mg/dL 70-140 H [facility] Potassium [Moles/volume] in Serum or Plasma 4.1 mmol/L 3.4-5.1 [facility] Sodium [Moles/volume] in Serum or Plasma 135 mmol/L 136-145 L [facility] Urea nitrogen [Mass/volume] in Serum or Plasma 58 mg/dL 8-23 H [facility] Anion gap 3 in Serum or Plasma 12 mmol/L 8-15 [facility] Osmolality of Serum or Plasma by calculation 300 mosm/kg 275-300 [facility] Creatinine/Urea nitrogen [Mass Ratio] in Serum or Plasma 13 [facility] Calcium [Mass/volume] in Serum or Plasma 8.5 mg/dL 8.8-10.2 L [facility] Glomerular filtration rate/1.73 sq M pre dicted among non-blacks [Volume Rate/Area] in Serum or Plasma by Creatinine-based formula (MDRD) 12 mL/min/1.73m2 >60 L [facility] Glomerular filtration rate/1.73 sq M pre dicted among blacks [Volume Rate/Area] in Serum or Plasma by Creatinine-based formula (MDRD) 14 mL/min/1.73m2 >60 L [facility] ID Date Data Source [id number] 10/22/2019 07:22:02 AM [facility] Name Value Range Interpretation Code Description Data Tere rce(s) Supporting Document(s) Phosphate [Mass/volume] in Serum or Plasma 3.4 mg/dL 2.5-4.5 [facility] ID Date Data Source [id number] 10/22/2019 07:24:36 AM [facility] Value Range Interpretation Code Description Data Tere rce(s) Supporting Document(s) Prothrombin time (PT) 16.2 s 12.5-14.9 H [facility] INR in Platelet poor plasma by Coagulation assay 1.29 [facility] Routine intensity oral anticoagulation I NR is typically 2.0-3.0. Target INR must be clinically individualized. ID Date Data Source [id number] 10/22/2019 07:24:36 AM [facility] Value Range Interpretation Code Description Data Tere rce(s) Supporting Document(s) aPTT in Platelet poor plasma by Coagulation assay 29.7 s 24.0-33. 0 [facility] ID Date Data Source [id number] 10/[facility]2019 [facility]10[facility] Range Interpretation Code Description Data Tere rce(s) Supporting Document(s) Glucose [Mass/volume] in Capillary blood by Glucometer 104 mg/dL 70- 140 [facility] ID Date Data Source [id number] 10/21/2019 07:38:21 [facility] Value Range Interpretation Code Description Data Tere rce(s) Supporting Document(s) Glucose [Mass/volume] in Capillary blood by Glucometer 116 mg/dL 70- 140 [facility] ID Date Data Source [id number] 10/21/2019 12:43:15 [facility] Value Range Interpretation Code Description Data Tere rce(s) Supporting Document(s) Glucose [Mass/volume] in Capillary blood by Glucometer 121 mg/dL 70- 140 [facility] ID Date Data Source [id number] 10/21/2019 08:48:56 [facility] Value Range Interpretation Code Description Data Tere rce(s) Supporting Document(s) Glucose [Mass/volume] in Capillary blood by Glucometer 137 mg/dL 70- 140 [facility] ID Date Data Source [id number] 10/21/2019 07:05:48 AM [facility] Value Range Interpretation Code Description Data Tere rce(s) Supporting Document(s) [facility] LZERXv2fYtELOsVjz6KkGqYwHXEeBL3bxms3Z2Q4kDLeZ1RnxPZzm6qbL6XrM0WvPAGmAODYNM7QbCZl jb2 [file] العلي/6UFJgiGk3cYzSdDrzitHh4Ii7v0o3fUre/ZM0cq3XmgXPYO3oPKOrzDLc3LjiqyB5/RJCi4BwVdTc neiq1Rw83z21azdlaIIROgM4LISmfo5IbJ7imiUZ4Fp4kbszkLqrHD3db2TIF9Nle+++4e954VcsUo34 oP0MbMhY6BMcG4ctdi71qlC4GKt5ULmnN8/TLrkqn8 f3C3hc9foZ1Xax4+C7m1a6p5JXS/zqaQVg6p0PZl1raIRbTymC8BgVpMNCWqW89zeuBPhNKNngx21YvJ zyq0BRTkggit32+Vvorlfpr37XKC/lXIeL1642rs8Ik/coLw++uzxX+jD69an6aTDs3xW1rrnINhZfZl gJLFdZM/eavpUT9Pm/95H1GUT0qsWsjiwgVskTzh72 enhq6rvk2LM03Erj2vcYWffSi0G8g3II4/095Q7B1Vsxcs/yhRI60SxpdP7H8+3K9if5j7cYwjmx/blE 0db25j3bIf38P5E7w/m99A92yk0DexetvRMqvuPCOO+XcovCt4mTx5s1K+oOo5LqJGi/+eQZ8m7S7/1N Gesw5NCEUOe1z0hp3x5T20Dx9SiiV495euce350x7A [file] 73q80xIp6dYAsmh8/tIy83b50c47885aSEVh++WvzZ M617LHS4p/3yFz+922PQrrtfw/zqjPObn3/45VnlU063oDrg82u//2Na6PG4YGkf53taxa//2eO2b8Lg Jir8xEdR+u6Tz4/X2/v0wz++uxe8s28AH133+rv/dUNrRfv/09D/D90928T/8T/+4d9+96ff//Zf3/7b /3z75jd/+u+/+dOf/+vb5z/+t9/+6c9v//qzVc9oi3 774x/ext+Ov/WPon/91Y2gg1U5A6qihLy4ucgcb/+3/7ATaeEroT7M/EuxN65s26Qg2zc7/dAmZ95Tvt 95/lbzjsriny6ya11ulSafU/SrpLefc/LOsA6150hx6j8/kOdB3ts8z//22z/6nTs86jwjk/ //9OOXj+0t8Mbc7yki/ki6BVctuXQ33w4/P/b389ID 54gxIDTdhArjem6rG/z5b97+9Js///Zd6y+T992pc9BDe+dx4asn3f/9tO0N/fLz2+/+8Off/un/+s2/ /4XGNy/dJ80tb9a1c4v+sX/4/OPbv/6PV89/98c//FC1o047m+bVxMH+4cvf/sOXf+Gaxd9Oq+3W/rbY eN+8jImV4kbAmTHwC0o/uPpLkTD6XkmS2DbzIz/15e 03//dv/+M/qqIqwkY96E0+qN3ojZk6mYh5pv9LR/3zX//j4l0meiVub0/6izn62Rrn/I9/+c1//O43f/ jJ/ZvTPf/uJ+Dh0ec//vH3X3/I+TvD2TK3/8d/+bpyBrrJkZIz+Or023/573/43b+8OvD1+sDGnD+51h Oh6Nr/+RSxHo1x08/88j8/z4Wr+F6vlnkXn/l3X0LD //pVzXP8kw6/nV/+5v/47Vt6++O/edEpjfdQBWDd8p2+5kWZbPBc8v+n6YSqow/SzLBUH95f6/xrUOW1 pLv2/cM33/zwq0+va/UPgaLy6Ng92r0MsFKi/gmttcUdfYKzNQ8NCA7ea3ZsJcW7ZKQvn7SoBVsmLRq3 oGJzGThhmfBro1QkgzpfU3Oal0HnNuJxILZfPbToGu s2QZNgRkM3pIWrJgMsQFYqU2MzOEOtIkP9XqTrMRGCPH5JXEKdfrAuCdWbDWE+ThSlCP1prcuiHDWgc1 CxBZutCYspBBEyV9A8eKigXHCfP0IayL45MFRyR3UhgrG4WTY9FOVxLmSeJYSsmCZgKIPbATO+PmVuZG 1rcpmlOYAza5MrXQoaBGI3bU3zMViXKFZRHQmAMLoi BsY8q68lgtPWRWUmMQUzHF6FcrPcxMmbvrCubVAiNVD3TiHgUOE4YLfgRwM0IJHDACUlYPSdXCDtHAAk W8OvqEziGAwIVVZMVIaNPNdyFeIla8H1OVHtevJBSU9AMEkDMlhcJ1qIZQzFNDFlTFIgLtY6ODMuA2Ol hlLupDUxHKVTQFfxBbefITEvaN2kgGojJ1OtRGB9v5 NqKC2FS3FyBJKzAGIIBDX2n3ZyQKPtambmmsvrYzKuCEKiGFKtVVRnYF6Fmz9xhUFypoWcLNTFLZadSy ppBL5lzOidbfyeB8QksVXxCHI+UtVrGO6tye9+OxWqKYLgXmz5MRRkLMjuEEPyJXCeGAGoA6wxKDMnOo EtLJBbVmShCV2Ol8BxpWFcDr3yzkXeIcjZnNReLzpq URTrTYGxGIYiUwGZCAVqUIBlQNLwJQA1QZZxYJIqGKveBWWiDTvlAFXqVPLjWGDhLI7xInFpQWVhDpN2 NSVeIQPwJFGetqHSNKCqMKZ0RBT9XFXwMLMcANVkISriCFLoGSOaJJMzOXL1EKC7LKDrSgGnTFHvQYHk BHJkXRRgVPAeixNIPKTcCOJfGNE9UIKlEYMzEJZqWP qoWEApLZPvSTfvZFWfEEQdKD8mUkSjPJUvAMPoEXxqZQSqSQZkxuUHELLiTKYzURJuZPNtOAWkZCCqCU wbSFIvBTKwIHTsSATjWHZnFG2vMrZiAWCkZOJ8MJXyMIVhQHJcscUZNVLpATSqGFw4AAUkGLXjRGNnLN reQOZwOOQgXOY5XRIzSCPqFJ1rSvRyLSVwNJV5DdGz JXXiNGTazpRYZWTePNQsPGQ4DnNkCNWmKZAwGWeePYCjSKRmEMznBKRyIPFbXX9tQpCjYKAnKOYbZAwi FHXgKEIilaLEKEQeELRxCTHkYyRqVYGcAXZtYYieICNcXFvpQOKlNKPbCQRbBD7yCkNzIBQcTRY4KDbv MDAwMDAgbiAKMDAwMDAwMTczNCAwMDAwMCBuIAowMD NnGKLxAFH3NVCzUSKwEI8rFgMeUTPyCTGuUTGkTlU7DdVeLlGRqGHqbGixzyk2VNkmK8r5JVXpAFfqAT 3fnpXcPFQsIiszJv9ulIK9NCQsEswPBd1Cw1VpuiH8roIfXrwhRLp3QeEiRB1D ID Date Data Source [id number] 10/21/2019 05:49:32 AM EDT [facility] Name Value Range Interpretation Code Description Data Tere rce(s) Supporting Document(s) Leukocytes [#/volume] in Blood by Automated count 5.0 10*3/uL 4-10 [facility] Erythrocytes [#/volume] in Blood by Automated count 2.82 10*6/uL 4.6- 6.1 L [facility] Hemoglobin [Mass/volume] in Blood 9.0 g/dL 13.5-18 L [facility] Hematocrit [Volume Fraction] of Blood by Automated count 25.6 % 4 1-53 L [facility] Erythrocyte mean corpuscular volume [Entitic volume] by Auto mated count 90.6 fL 80-96 [facility] Erythrocyte mean corpuscular hemoglobin [Entitic mass] by Automated count 31.8 pg 27-33 [facility] Erythrocyte mean corpuscular hemoglobin concentration [Mass/volume] by Automated count 35.1 g/dL 32.0-36.0 [facility] width [Ratio] by Automated count 13.9 % 11.5-14.5 [facility] Platelets [#/volume] in Blood by Automated count 125 10*3/uL 150-400 L [facility] Differential cell count method - Blood [facility] Neutrophils/100 leukocytes in Blood by Automated count 76 % [facility] Lymphocytes/100 leukocytes in Blood by Automated count 13 % [facility] Monocytes/100 leukocytes in Blood by Automated count 9 % [facility] Eosinophils/100 leukocytes in Blood by Automated count 1 % [facility] Basophils/100 leukocytes in Blood by Automated count 1 % [facility] Neutrophils [#/volume] in Blood by Automated count 3.85 10*3/uL 1.8-7 .0 [facility] Lymphocytes [#/volume] in Blood by Automated count 0.64 10*3/uL 1.2-4 .0 L [facility] Monocytes [#/volume] in Blood by Automated count 0.48 10*3/uL 0-0.8 [facility] Eosinophils [#/volume] in Blood by Automated count 0.06 10*3/uL 0-0.5 [facility] Basophils [#/volume] in Blood by Automated count 0.03 10*3/uL 0-0.2 [facility] Nucleated erythrocytes/100 leukocytes [Ratio] in Blood by Automated count 0 /100{WBCs} 0-0 [facility] ID Date Data Source [id number] 10/21/2019 05:55:00 AM EDT [facility] Name Value Range Interpretation Code Description Data Tere rce(s) Supporting Document(s) Prothrombin time (PT) 16.0 s 12.5-14.9 H [facility] INR in Platelet poor plasma by Coagulation assay 1.27 [facility] Routine intensity oral anticoagulation I NR is typically 2.0-3.0. Target INR must be clinically individualized. ID Date Data Source [id number] 10/21/2019 05:55:00 AM [facility] Value Range Interpretation Code Description Data Tere rce(s) Supporting Document(s) aPTT in Platelet poor plasma by Coagulation assay 28.7 s 24.0-33. 0 [facility] ID Date Data Source [id number] 10/21/2019 05:59:06 AM [facility] Value Range Interpretation Code Description Data Tere rce(s) Supporting Document(s) Bicarbonate [Moles/volume] in Serum 24 mmol/L 22-29 [facility] Chloride [Moles/volume] in Serum or Plasma 99 mmol/L 98-107 [facility] Creatinine [Mass/volume] in Serum or Plasma 3.16 mg/dL 0.70-1.20 H [facility] Glucose [Mass/volume] in Serum or Plasma 174 mg/dL 70-140 H [facility] Potassium [Moles/volume] in Serum or Plasma 4.1 mmol/L 3.4-5.1 [facility] Hemolyzed Sodium [Moles/volume] in Serum or Plasma 135 mmol/L 136-145 L [facility] Urea nitrogen [Mass/volume] in Serum or Plasma 41 mg/dL 8-23 H [facility] Anion gap 3 in Serum or Plasma 12 mmol/L 8-15 [facility] Osmolality of Serum or Plasma by calculation 294 mosm/kg 275-300 [facility] Creatinine/Urea nitrogen [Mass Ratio] in Serum or Plasma 13 [facility] Calcium [Mass/volume] in Serum or Plasma 8.8 mg/dL 8.8-10.2 [facility] Glomerular filtration rate/1.73 sq M pre dicted among non-blacks [Volume Rate/Area] in Serum or Plasma by Creatinine-based formula (MDRD) 18 mL/min/1.73m2 >60 L [facility] Glomerular filtration rate/1.73 sq M pre dicted among blacks [Volume Rate/Area] in Serum or Plasma by Creatinine-based formula (MDRD) 20 mL/min/1.73m2 >60 L [facility] ID Date Data Source [id number] 10/21/2019 05:59:06 AM [facility] Value Range Interpretation Code Description Data Tere rce(s) Supporting Document(s) Magnesium [Mass/volume] in Serum or Plasma 1.9 mg/dL 1.6-2.4 [facility] ID Date Data Source [id number] 10/21/2019 05:59:[facility] Value Range Interpretation Code Description Data Tere rce(s) Supporting Document(s) Phosphate [Mass/volume] in Serum or Plasma 3.6 mg/dL 2.5-4.5 [facility] ID Date Data Source [id number] 10/25/2019 05:49:00 PM [facility] ReportName: JOSE ANTONIO LYLEMRN: [id number] Number: [id number] Date: 10/21/2019 00:00Received Date: 10/23/2019 09:09Physician(s): MICKEY [...] diagnosis is based on amicroscopic examination of logistics service representative sections of tissue.Gross DescriptionThe specimen is received in formalin labeled with the patient's name"Jose Antonio Lyle" and "left arm hematoma". It consists of a 10.0 x 8.0 x4.0 cm aggregate of red-brown clot. The cut surfaces are glistening andred-brown. Vocational Rehabilitation Supervisor sections are submitted in one cassette. MW/pmwThis report may include one or more immunohistochemical stain results thatuse analyte specific reagents. All positive and negative controls havebeen reviewed by the attending pathologist and are satisfactory. The testswere developed and their performance characteristics determined by [facility] Pathology department. They have not been cleared or approved by the USFood and Drug Administration. The FDA has determined that such clearanceor approval is not necessary. Name Value Range Interpretation Code Description Data Tere rce(s) Supporting Document(s) ID Date Data Source [id number] 10/20/2019 11:29:30 PM [facility] Name Value Range Interpretation Code Description Data Tere rce(s) Supporting Document(s) Glucose [Mass/volume] in Capillary blood by Glucometer 152 mg/dL 70- 140 H [facility] ID Date Data Source [id number] 10/20/2019 05:22:55 PM [facility] Name Value Range Interpretation Code Description Data Tere rce(s) Supporting Document(s) Glucose [Mass/volume] in Capillary blood by Glucometer 172 mg/dL 70- 140 H [facility] ID Date Data Source [id number] 10/20/2019 05:18:01 PM [facility] Name Value Range Interpretation Code Description Data Tere rce(s) Supporting Document(s) History and Physical [facility] KKVYDn5dKhLLEvKr35/YRIduYBAgt4BaVUztGSy0BClaZPEqF8LmJED9uL6jDPR4WSmUPfNyPcHjZAF2 lbm [file] [id number] ID Date Data Source [id number] 10/20/2019 02:17:22 PM EDT [facility] Name Value Range Interpretation Code Description Data Tere rce(s) Supporting Document(s) Glucose [Mass/volume] in Capillary blood by Glucometer 139 mg/dL 70- 140 [facility] ID Date Data Source [id number] 10/20/2019 12:55:[facility] Range Interpretation Code Description Data Tere rce(s) Supporting Document(s) Glucose [Mass/volume] in Capillary blood by Glucometer 124 mg/dL 70- 140 [facility] ID Date Data Source [id number] 10/20/2019 11:11:00 AM EDT [facility] Value Range Interpretation Code Description Data Tere rce(s) Supporting Document(s) Consultation [facility] XXTMQk2tOaUPWoTe72/DZVplNMJng4NlYTibUMr4CWbgRYDbM3PnOCD6hL9aJTS2DUpFPeNeJlMcGJJ1 lbm [file] [facility]+PnK1fm6RyJ51Dxn0r3g+K18TlO0PBdG9W4iy3VvS1wWkAxGXebwGGKitsfCSFN89qE8ctu7R [file] O6QCRlFQNsD7IsMpBhWdJeHM9YJx3NQjK9IDW9vVZjUr7IRBT6YQLXZdWkKH1UFYh= ID Date Data Source [id number] 10/20/2019 09:09:41 AM EDT [facility] Name Value Range Interpretation Code Description Data Tere rce(s) Supporting Document(s) Glucose [Mass/volume] in Capillary blood by Glucometer 172 mg/dL 70- 140 H [facility] ID Date Data Source [id number] 10/20/2019 07:08:55 AM EDT [facility] Name Value Range Interpretation Code Description Data Tere rce(s) Supporting Document(s) Consultation [facility] KBNJUv1hXsKOAhHl30/JOQugUKOjv2YvTThoHVj3UOsoBTJqV3QnLFH7gA8lUXJ6EFbRXeFyYhMqTBU3 lbm [file] UcTJHE/T29jLpw07b+0Kt8/kt0FFX5Vi44FPVjQ37esSltq/5m5738HnhFgNRT7Nx47x81/C30eo/management professional [file] AgICAgICAgICAgICAgICAgICAgICAgICAgICAgICAgICAgICAgICAgICAgICAgICAgICAgICAgICAgIC AgICAgICAgDQogICAgICAgICAgICAgICAgICAgICAg ICAgICAgICAgICAgICAgICAgICAgICAgICAgICAgICAgICAgICAgICAgICAgICAgICAgICAgICAgICAg ICAgICAgICAgICAgICAgICAgDQogICAgICAgICAgICAgICAgICAgICAgICAgICAgICAgICAgICAgICAg ICAgICAgICAgICAgICAgICAgICAgICAgICAgICAgIC AgICAgICAgICAgICAgICAgICAgICAgICAgICAgDQogICAgICAgICAgICAgICAgICAgICAgICAgICAgIC AgICAgICAgICAgICAgICAgICAgICAgICAgICAgICAgICAgICAgICAgICAgICAgICAgICAgICAgICAgIC AgICAgICAgICAgDQogICAgICAgICAgICAgICAgICAg ICAgICAgICAgICAgICAgICAgICAgICAgICAgICAgICAgICAgICAgICAgICAgICAgICAgICAgICAgICAg ICAgICAgICAgICAgICAgICAgICAgDQogICAgICAgICAgICAgICAgICAgICAgICAgICAgICAgICAgICAg ICAgICAgICAgICAgICAgICAgICAgICAgICAgICAgIC AgICAgICAgICAgICAgICAgICAgICAgICAgICAgICAgDQogICAgICAgICAgICAgICAgICAgICAgICAgIC AgICAgICAgICAgICAgICAgICAgICAgICAgICAgICAgICAgICAgICAgICAgICAgICAgICAgICAgICAgIC AgICAgICAgICAgICAgDQogICAgICAgICAgICAgICAg ICAgICAgICAgICAgICAgICAgICAgICAgICAgICAgICAgICAgICAgICAgICAgICAgICAgICAgICAgICAg ICAgICAgICAgICAgICAgICAgICAgICAgDQogICAgICAgICAgICAgICAgICAgICAgICAgICAgICAgICAg ICAgICAgICAgICAgICAgICAgICAgICAgICAgICAgIC AgICAgICAgICAgICAgICAgICAgICAgICAgICAgICAgICAgDQogICAgICAgICAgICAgICAgICAgICAgIC AgICAgICAgICAgICAgICAgICAgICAgICAgICAgICAgICAgICAgICAgICAgICAgICAgICAgICAgICAgIC ZpHCUrPOXiZCUpSHAeEEVqAYk5D1iqARDaBRUlRU1p CQp1Nq9+WUzEFfTgBVN6etSxyQ1HHP7kj7IfDGwjCYRpb6IkQAe6YP8WZZRtKJnuJF1IWCszik4MKLYp XBHspPMQo7lkWaExYUP3BHHoNsrjRI2VZWXsD7toheIyXLMoXFSZUGibLDYIGKsjZJUZMLGkICWiHlLy MbJsRDPgXQ4KDNHhE456uiIeZD5DUr3SMjZgAN2shr 8YVyWeMPUzCvfKCsv2ZCdoNY6EyXKakBKcNBMoSYEBMzPbH8lim3FlVmTcMFREYFtnNF5Pg5RppITyYK o+Ws6IIB4gj8MrTXmbGNIhMN2mbo5GRDuSTxXlT0HvpDolRMSgsvV5eSMgOWZ3GIKjxV8mKY1pI3dsub bhFLLwJJQyOK48ZzHqJsZfDBK6TSRzCD3mOWunRH7W VJP1PIaaDABhMBVjL1yTWiLqWBMqGbOxjOhhUD0QKdYaV9LbnmZqiGQeMSFsDUDEFd1+DQplbmRvYmoN TpEhPBBet3IzTPa1AB1XJLHcRIjqKL8NSKCbuY8zRFxlTF4LUvDlFOHtWNLSVvAbX07diJOeEDk7I2Iy YmVkZGVkRmlsZXMgPDwvTmFtZXMgWyBdDQogID4+ID 4+TUuvHC0XPVgovoCbBTAyJd7RQMEaKIPvPG0sVNCrAYSsL1R1oNebRENGClXaD0vjpefbUF3aYPDoN9 33bOxrzxElKIAnIQHiGg5QLXGgJXZ2CFCzgIWdFdmqBZDWGIivTK9IvVJrIDZ8yH9yHSakNMSdFPZcK7 kVVyQerAeyTD35cYldlmYruYIqMMa+Kl6TBF1fl8Yy RTr1afKjEFjpLWDmAWcsZBOkTGRdZXDmHRR2TGO1LIPRZbFxIBIkFOKhCKugKSBsUYUjmz4TRMLzDITv ZPCuGyKoZEFlWKRySCbtGKNvXTRvBFW2NILdXVOvIC8AKkPaQMXrYYZiCDyqVTLzYPAdkn1QGKJkLIAv MvU4XRWeFNAdUTKqNQgxLRYpYXZoGgZhLHLmDOXjWB 7LZyOoPLFpBIU1YSZgJHAgDCAbql5QFFBfFKNqHkB3BTKnIDPoKFOyBDduWIYoVWV5QXf2QGKmATOoQI 6AAtGuBLMuTYo5TNWmQCShTEXilu1NBOAgEVPdLdZkNdJwIKJjQQGoZYrlRFHiPVQgKaI4KQRrNQWsIO 1DVwSaRHCrVQE9HEokBZKpKNYrme3RDUPnSOVuASR6 DNVdYAZoZVZhZKgaSTRyTGQ2TFO3LLHpAUKrCS1GRkAsLFPlCDOfMAQbDBIwZWQdoh6GDUMbGJAuBCEn WNZuKAVmGSVoSHfiHHDhLQC7TdafVPZsCQHcEY1HKhUyKFLbTFK8SVGrARAaIDNbcx3NQCMcKBIeWdg3 FrSsBDYtLPMkZXflDHFsRCE0EIL8IKLlYSSlIH5FTv KcQIRsXum7ESOsUJUyRWQluv5CHPTnJLIoXBF2AVKkKQGlBLQnXXobIISjJUP6OXA0GHMcFLOmTE3CXv SkFLYbPljkPXOiEJQcXMDkwp7WMBVwRVHpENFpRAJnGTOlZJXfJNeeGCGvMEKqUmEgRCHcNSCjLK0MAj MeHRGiJhZoUUEfBLMoSUPwsb2RPMXaWNBcQBnoIwNz DWFkQZRtGJbxMOFuRXWdBfbeRTEeDAIbJT9OSeHxIYYcGqCsXEUxJCLyXXZeim9ZPQYhCHDwUkT5NcBz YIVuILSvPKs4vjJwpDQoDYy2HG8CK3AaffPsGfQDUh1Ce152REYjFIYcGi2NF6doWy4vVMYuTSEIAu1T SLp3KeIrHXM3QQe9OEGkPcRuVFB5EDCyKPTcGUBnL2 MxOGY+JPblUXN4IJO7UQu6C1QcUpNbLHKkE8D1VZH8JBLrAfT4Ef0yHHBZZk5+DQpzdGFydHhyZWYNCj BqCqG8JTbsFLYOZm0W ID Date Data Source [id number] 10/20/2019 04:40:41 AM [facility] Name Value Range Interpretation Code Description Data Tere rce(s) Supporting Document(s) Glucose [Mass/volume] in Capillary blood by Glucometer 172 mg/dL 70- 140 H [facility] ID Date Data Source [id number] 10/20/2019 03:24:04 AM [facility] Name Value Range Interpretation Code Description Data Tere rce(s) Supporting Document(s) Leukocytes [#/volume] in Blood by Automated count 4.1 10*3/uL 4-10 [facility] Erythrocytes [#/volume] in Blood by Automated count 3.10 10*6/uL 4.6- 6.1 L [facility] Hemoglobin [Mass/volume] in Blood 10.0 g/dL 13.5-18 L [facility] Hematocrit [Volume Fraction] of Blood by Automated count 28.4 % 4 1-53 L [facility] Erythrocyte mean corpuscular volume [Entitic volume] by Auto mated count 91.7 fL 80-96 [facility] Erythrocyte mean corpuscular hemoglobin [Entitic mass] by Automated count 32.2 pg 27-33 [facility] Erythrocyte mean corpuscular hemoglobin concentration [Mass/volume] by Automated count 35.1 g/dL 32.0-36.0 [facility] E[facility] distribution width [Ratio] by Automated count 14.1 % 11.5-14.5 [facility] Platelets [#/volume] in Blood by Automated count 118 10*3/uL 150-400 L [facility] Differential cell count method - Blood [facility] Neutrophils/100 leukocytes in Blood by Automated count 93 % [facility] Lymphocytes/100 leukocytes in Blood by Automated count 4 % [facility] Monocytes/100 leukocytes in Blood by Automated count 2 % [facility] Eosinophils/100 leukocytes in Blood by Automated count 0 % [facility] Basophils/100 leukocytes in Blood by Automated count 1 % [facility] Neutrophils [#/volume] in Blood by Automated count 3.83 10*3/uL 1.8-7 .0 [facility] Lymphocytes [#/volume] in Blood by Automated count 0.14 10*3/uL 1.2-4 .0 L [facility] Monocytes [#/volume] in Blood by Automated count 0.07 10*3/uL 0-0.8 [facility] Eosinophils [#/volume] in Blood by Automated count 0.01 10*3/uL 0-0.5 [facility] Basophils [#/volume] in Blood by Automated count 0.02 10*3/uL 0-0.2 [facility] Nucleated erythrocytes/100 leukocytes [Ratio] in Blood by Automated count 0 /100{WBCs} 0-0 [facility] ID Date Data Source [id number] 10/20/2019 03:35:57 AM [facility] Name Value Range Interpretation Code Description Data Tere rce(s) Supporting Document(s) Prothrombin time (PT) 16.8 s 12.5-14.9 H [facility] INR in Platelet poor plasma by Coagulation assay 1.35 [facility] Routine intensity oral anticoagulation I NR is typically 2.0-3.0. Target INR must be clinically individualized. ID Date Data Source [id number] 10/20/2019 03:35:57 AM [facility] Name Value Range Interpretation Code Description Data Tere rce(s) Supporting Document(s) aPTT in Platelet poor plasma by Coagulation assay 30.6 s 24.0-33. 0 [facility] ID Date Data Source [id number] 10/20/2019 03:41:51 AM [facility] Name Value Range Interpretation Code Description Data Tere rce(s) Supporting Document(s) Bicarbonate [Moles/volume] in Serum 25 mmol/L 22-29 [facility] Chloride [Moles/volume] in Serum or Plasma 103 mmol/L 98-107 [facility] Creatinine [Mass/volume] in Serum or Plasma 3.36 mg/dL 0.70-1.20 H [facility] Glucose [Mass/volume] in Serum or Plasma 183 mg/dL 70-140 H [facility] Potassium [Moles/volume] in Serum or Plasma 4.4 mmol/L 3.4-5.1 [facility] Sodium [Moles/volume] in Serum or Plasma 143 mmol/L 136-145 [facility] Urea nitrogen [Mass/volume] in Serum or Plasma 54 mg/dL 8-23 H [facility] Anion gap 3 in Serum or Plasma 15 mmol/L 8-15 [facility] Osmolality of Serum or Plasma by calculation 315 mosm/kg 275-300 [facility] Creatinine/Urea nitrogen [Mass Ratio] in Serum or Plasma 16 [facility] Calcium [Mass/volume] in Serum or Plasma 9.2 mg/dL 8.8-10.2 [facility] Glomerular filtration rate/1.73 sq M pre dicted among non-blacks [Volume Rate/Area] in Serum or Plasma by Creatinine-based formula (MDRD) 16 mL/min/1.73m2 >60 L [facility] Glomerular filtration rate/1.73 sq M pre dicted among blacks [Volume Rate/Area] in Serum or Plasma by Creatinine-based formula (MDRD) 19 mL/min/1.73m2 >60 L [facility] ID Date Data Source [id number] 10/20/2019 03:41:51 AM [facility] Value Range Interpretation Code Description Data Tere rce(s) Supporting Document(s) Magnesium [Mass/volume] in Serum or Plasma 1.8 mg/dL 1.6-2.4 [facility] ID Date Data Source [id number] 10/20/2019 03:41:51 AM EDT [facility] Name Value Range Interpretation Code Description Data Tere rce(s) Supporting Document(s) Phosphate [Mass/volume] in Serum or Plasma 4.3 mg/dL 2.5-4.5 [facility] ID Date Data Source [id number] 10/20[facility]2019 [facility]AP[facility] UPPER EXTREMITY [id number] L RESULTInterpreted by:CLOTILDE NationROCEDURE INFORMATION: Exam: CTA [...] rce(s) Supporting Document(s) ID Date Data Source [id number] 10/19/2019 11:23:13 PM [facility] Name Value Range Interpretation Code Description Data Tere rce(s) Supporting Document(s) Glucose [Mass/volume] in Capillary blood by Glucometer 166 mg/dL 70- 140 [facility] ID Date Data Source [id number] 10/19/2019 09:13:05 PM EDT [facility] Name Value Range Interpretation Code Description Data Tere rce(s) Supporting Document(s) ED Provider Note [facility] IXUWQk3dBpSLQjYr02/QEQvmRQEjr2KtTYicGXs3MZhdDHTjD3FyJTU9fD0nVEA5YIpCTcOtQkLfKPM0 lbm [file] tLblur9wKk1Svz3Kcj9K/QXkdBvdtY59pyN5pFClJgQKSzOdDFIcXazDAW7f1/Ph/Braided Rug Maker+WL4ts3yyLDuU 1agEjWZe9hMlLjOko15UBC1G/vojILZwzGLt/xo8rN4fmz0BaiLzcYO2mZcKzQy3oJZ1mWYGdr9h551v RDmPN1zOVkYAdfvpB3MtIkhoPaOEYsRPEuUQtB+3hv lTXVzs7kjM9tkk2RU6yEbNpiNmIj0fVtYUnxp7T+ZJoNg3VMpnzaQH04P3+sPRj1NtmUPbywVW5bWPpF 4jtZG+IwsqoU2/vW8uK2obN+E8KnPPKEtHQ0xpkiWlFyp+nu9uQ84alteK8JOL5oc3AeOCBmIZddqlZs EgkLNotvLNWpObhOIeUiIIjTHuQiVRSkDVisTU9SBR ozCEzhEKAkZ4IsmhIduBYiOLGfPq0ENFNbUI2PNYFyuECrVLFmVqLdQFLOIxAyQQUcPCUaoLVBq4bhSe DhROQ7NSEiCmktXD8DFZMbMK0Kd358FF71kxX7KGEfBb9EASAuWX5Okc17pZZ5SPKmMmSqSGFidhSjEK FlbdN5KT7AVrWaXZT1aSDvQrtJIC4RQCHghMEzNX6Y IGZhbHNlID4+DQogID4+YCehsiQjWnsXMjHgBRHax9IjXEogESz7V5FeyJHbtuEvRmztrZDKMNHeYWKc R0miztr8jBBeVIGdWx2PVcDbx8ClBMUjLBkTcb2h8C7bJt9/P+D+w5kmBaJD1DhlHHWvWjz6SEo2nsS+ FUboshoQouWTJ17Qq//6rvbDFpnxz+LuqHGBxAgser cCSlwjFCuPrDU1v/+hanqDFexrm74QFEFG9Kv12a/nCl3j80ZkSlUq+8+Uw7LKQ0MDgF34ELrWNMvnPp P1+0O1ZC8wPXvnVbJM6Nlqn3G+mA8+sX9X0J5+ztJxtvrxR/CR1SkC5XBtycas5SyC+XQ0Q8M1sXEIqV qtYcyCNhIRzxjp2EPQp5+/+Iglesia/7nj4e2kDlMvXL+v [file] AwMDAzMjYzMSAwMDAwMCBuDQowMDAwMDMyODMzIDAw CMSoXY7NJbVyUACuIuHfEoHdAHVyRYUxsk6XVBDxUJSpGgq1TZIxUWKrJZDvBVipSPLiRPT8RHt5KVZz AETqIO3YXzVdQZAqQjHqHbInBTJiESIyyl0UEDEoAVW5JUn0CyAsDFWyZSNiZTpdKMZrUSP1KCW1EALr QKWrED3GFvWmATDjFPNcOgNcBVYkDDClby8DAWBgAG L8OhMrZhRrQFHjANFtWGhjHKAqIQX8QoK1AHJmJJNgMC7FZsHnCNPuVGp6BNTpTCKfDRWpzt4ROCObKR S3Qsl6UXAxWTGvMCKkMYoqORTfYAE7UJL6BXGlTXTdFR5ATqLpBFRsJIg4CMNiGUIpXREiml0MYQIbXQ S2OLlyWUUbPBSlYKEhYGkgHTRjHPU4EQsnARMmVVWq XD2UPwGgFXNwORXnQZCyKSXfTYOeml0XWHTtSUO9XAEcLRMrEBZjRXYbCRolHZYeZUEcLNA2ALQfULQr HU5ZObWuBSVqZHJ5OFNlAMEmZVHqhd6GUNRnFUC6GWf4LlZiDAXfXTKcSPryZKAfDDIlOYR2PANgIKJh MZ6ABvWaKNGdDHCxTbZgFDWiNBVzob1SOFSyZWJ7TC EaGgLdFYLxAJTrCLjzOSRpYSSkTVwqEYXsBEGuCR2ZFjXpSKbwERFWXyz1HCxuO5q3ILU9IL8HB6Yrq5 ZwOUDtNOWXGKnbVF3fcmFiMYYaVn9RL0eSMrraMjZbAuMcXIFiZzn5NMEeULJ5TxLvSdc7WOBlHPDmQM 7gEON7W1YdRFVwTxHjHQo6BbZsBCzqENOuLxHyQaS5 RKR2RpPwNO4LCd1KOvE1WMK4hHKfFo3REOJ4NNXRCrPfIL7FJFo= ID Date Data Source [id number] 10/19/2019 07:31:49 PM EDT [facility] Name Value Range Interpretation Code Description Data Tere rce(s) Supporting Document(s) ED Provider Note [facility] PDBOYy6xNxQIIdFp31/MYWfvVLUod0HeWRwxKGk3BEbbRXQnX2ArDDQ1cV1gOQS7KFkNCcZcAkUmEBT0 lbm [file] Pt1Zs6RgetL5fsNoCVnxJUFqBH1MSMZTN7SFLi== ID Date Data Source [id number] 10/20/2019 02:18:17 AM [facility] Name Value Range Interpretation Code Description Data Tere rce(s) Supporting Document(s) Hemoglobin A1c/Hemoglobin.total in Blood by HPLC 6.5 % 4.0-6.0 H [facility] (NOTE)<5.7% Average risk of diabetes (ADA)5.7-6.4% Increased risk of diabetes(ADA)>/= 6.5% Diagnostic for diabetes(ADA) Glucose mean value [Mass/volume] in Blood Estimated fr om glycated hemoglobin 139 mg/dL <126 H [facility] ID Date Data Source [id number] 10/19/2019 04:34:23 PM [facility] Name Value Range Interpretation Code Description Data Tere rce(s) Supporting Document(s) Leukocytes [#/volume] in Blood by Automated count 5.1 10*3/uL 4-10 [facility] Erythrocytes [#/volume] in Blood by Automated count 3.44 10*6/uL 4.6- 6.1 L [facility] Hemoglobin [Mass/volume] in Blood 10.7 g/dL 13.5-18 L [facility] Hematocrit [Volume Fraction] of Blood by Automated count 31.4 % 4 1-53 L [facility] Erythrocyte mean corpuscular volume [Entitic volume] by Auto mated count 91.3 fL 80-96 [facility] Erythrocyte mean corpuscular hemoglobin [Entitic mass] by Automated count 31.1 pg 27-33 [facility] Erythrocyte mean corpuscular hemoglobin concentration [Mass/volume] by Automated count 34.1 g/dL 32.0-36.0 [facility] Erythrocyte distribution width [Ratio] by Automated count 14.2 % 11.5-14.5 [facility] Platelets [#/volume] in Blood by Automated count 128 10*3/uL 150-400 L [facility] Differential cell count method - Blood [facility] Neutrophils/100 leukocytes in Blood by Automated count 85 % [facility] Lymphocytes/100 leukocytes in Blood by Automated count 7 % [facility] Monocytes/100 leukocytes in Blood by Automated count 6 % [facility] Eosinophils/100 leukocytes in Blood by Automated count 1 % [facility] Basophils/100 leukocytes in Blood by Automated count 1 % [facility] Neutrophils [#/volume] in Blood by Automated count 4.31 10*3/uL 1.8-7 .0 [facility] Lymphocytes [#/volume] in Blood by Automated count 0.38 10*3/uL 1.2-4 .0 L [facility] Monocytes [#/volume] in Blood by Automated count 0.31 10*3/uL 0-0.8 [facility] Eosinophils [#/volume] in Blood by Automated count 0.05 10*3/uL 0-0.5 [facility] Basophils [#/volume] in Blood by Automated count 0.04 10*3/uL 0-0.2 [facility] Nucleated erythrocytes/100 leukocytes [Ratio] in Blood by Automated count 0 /100{WBCs} 0-0 [facility] ID Date Data Source [id number] 10/19/2019 04:54:03 PM [facility] Value Range Interpretation Code Description Data Tere rce(s) Supporting Document(s) Prothrombin time (PT) 16.7 s 12.5-14.9 H [facility] INR in Platelet poor plasma by Coagulation assay 1.34 [facility] Routine intensity oral anticoagulation I NR is typically 2.0-3.0. Target INR must be clinically individualized. ID Date Data Source [id number] 10/19/2019 04:54:03 PM EDT [facility] Name Value Range Interpretation Code Description Data Tere rce(s) Supporting Document(s) aPTT in Platelet poor plasma by Coagulation assay 30.6 s 24.0-33. 0 [facility] ID Date Data Source [id number] 10/19/2019 05:05:48 PM EDT [facility] Name Value Range Interpretation Code Description Data Tere rce(s) Supporting Document(s) Albumin [Mass/volume] in Serum or Plasma by Bromocresol green (BCG) dye binding method 4.1 g/dL 3.5-5.2 [facility] Bilirubin.total [Mass/volume] in Serum or Plasma 0.6 mg/dL <1.2 [facility] Calcium [Mass/volume] in Serum or Plasma 9.5 mg/dL 8.8-10.2 [facility] Chloride [Moles/volume] in Serum or Plasma 100 mmol/L 98-107 [facility] Creatinine [Mass/volume] in Serum or Plasma 3.22 mg/dL 0.70-1.20 H [facility] Glucose [Mass/volume] in Serum or Plasma 164 mg/dL 70-140 H [facility] Alkaline phosphatase [Enzymatic activity/volume] in Serum or Plasma 65 U/L 40-129 [facility] Potassium [Moles/volume] in Serum or Plasma 4.7 mmol/L 3.4-5.1 [facility] Hemolyzed Protein [Mass/volume] in Serum or Plasma 6.7 g/dL 6.4-8.3 [facility] Sodium [Moles/volume] in Serum or Plasma 140 mmol/L 136-145 [facility] Aspartate aminotransferase [Enzymatic activity/volume] in Serum or Plasma 20 U/L <40 [facility] Hemolyzed Urea nitrogen [Mass/volume] in Serum or Plasma 52 mg/dL 8-23 H [facility] Osmolality of Serum or Plasma by calculation 307 mosm/kg 275-300 H [facility] Creatinine/Urea nitrogen [Mass Ratio] in Serum or Plasma 16 [facility] Bicarbonate [Moles/volume] in Serum 25 mmol/L 22-29 [facility] Alanine aminotransferase [Enzymatic activity/volume] in Seru m or Plasma 11 U/L <41 [facility] Hemolyzed Anion gap 3 in Serum or Plasma 15 mmol/L 8-15 [facility] Glomerular filtration rate/1.73 sq M pre dicted among non-blacks [Volume Rate/Area] in Serum or Plasma by Creatinine-based formula (MDRD) 17 mL/min/1.73m2 >60 L [facility] Glomerular filtration rate/1.73 sq M pre dicted among blacks [Volume Rate/Area] in Serum or Plasma by Creatinine-based formula (MDRD) 20 mL/min/1.73m2 >60 L [facility] ID Date Data Source [id number] 10/19/2019 03:25:08 PM EDT [facility] Name Value Range Interpretation Code Description Data Tere rce(s) Supporting Document(s) Glucose [Mass/volume] in Capillary blood by Glucometer 148 mg/dL 70- 140 H [facility] ID Date Data Source [id number] 10/19/2019 09:00:00 AM EDT [facility] ([facility] Name Value Range Interpretation [...] Little GFR Left</content>
<content>ESRD GFR <15 on VISUAL MERCHANDISER</content>
<content></content> Carbon Dioxide Level 29 meq/L 21-32 Normal (applies to non-num milena results) [facility] ([facility] Chloride Level 104 meq/L 98-107 Normal (applies to non-numeric r esults) [facility] ([facility] Anion Gap 7 meq/L 8-16 Below low [facility] Alt/SGPT 18 U/L 12-78 Normal (applies to non-numeric resul ts) [facility] ([facility] Calcium Level 9.1 mg/dL 8.8-10.2 Normal (applies to non-numeric re sults) [facility] ([facility] Ast/Sgot 10 U/L 7-37 Normal (applies to non-numeric resul ts) [facility] ([facility] Total Protein 6.5 GM/DL 6.4-8.2 Normal (applies to non-numeric re sults) [facility] ([facility] Alkaline Phosphatase 91 U/L 45-117 Normal (applies to non-num milena results) [facility] Bilirubin,Total 0.6 mg/dL 0.2-1.0 Normal (applies to non-numeric results) [facility] ([facility] Albumin 3.5 GM/DL 3.2-5.2 Normal (applies to non-numeric resul ts) [facility] ([facility] Albumin/Globulin Ratio 1.2 Normal (applies to non-n umeric results) [facility] ID Date Data Source [id number] 10/19/2019 09:00:00 AM EDT [facility] ([facility] Name Value Range Interpretation Code Description Data Tere rce(s) Supporting Document(s) White Blood Count 4.2 10 4.0-10.0 Normal (applies to non-numeri c results) [facility] ([facility] Hemoglobin 10.4 g/dL 13.5-17.5 Below low normal [facility] ( [facility] Red Blood Count 3.36 10 4.30-6.10 Below low normal [facility] ([facility] Mean Corpuscular Hemoglobin 31.0 pg 27.0-33.0 Norm al (applies to non-numeric results) [facility] ([facility] ) Hematocrit 31.7 % 42.0-52.0 Below low normal [facility] ( [facility] Mean Corpuscular Volume 94.3 fl 80.0-96.0 Normal ( applies to non-numeric results) [facility] ([facility] ) Red Cell Distribution Width 12.9 % 11.5-14.5 Norm al (applies to non-numeric results) [facility] ([facility] ) Mean Corpuscular HGB Conc 32.8 g/dL 32.0-36.5 Normal (applies to non-numeric results) [facility] ([facility] ) Platelet Count, Automated 118 10 150-450 Below low normal [facility] ([facility] Neutrophils % 78.2 % 36.0-66.0 Above high normal [facility] ([facility] Lymph % 11.7 % 24.0-44.0 Below low normal [facility] ( [facility] Forest % 7.2 % 0.0-5.0 Above high normal [facility] ([facility] Immature Granulocyte % 0.2 % 0-3.0 Normal (applies to non-n umeric results) [facility] ([facility] Eos % 2.2 % 0.0-3.0 Normal (applies to non-numeric resul ts) [facility] ([facility] Baso % 0.5 % 0.0-1.0 Normal (applies to non-numeric resul ts) [facility] ([facility] Lymph # 0.5 10 1.5-5.0 Below low normal [facility] ( [facility] Nucleated Red Blood Cell % 0.0 % 0-0 Normal (applies to n on-numeric results) [facility] ([facility] Neutrophils # 3.3 10 1.5-8.5 Normal (applies to non-numeric re sults) [facility] ([facility] Forest # 0.3 10 0.0-0.8 Normal (applies to non-numeric resul ts) [facility] ([facility] Baso # 0.0 10 0.0-0.2 Normal (applies to non-numeric resul ts) [facility] ([facility] Eos # 0.1 10 0.0-0.5 Normal (applies to non-numeric resul ts) [facility] ([facility] ID Date Data Source [id number] 10/19/2019 09:00:00 AM EDT [facility] ([facility] Name Value Range Interpretation Code Description Data Tere rce(s) Supporting Document(s) Inr 1.39 Normal (applies to non-numeric resul ts) [facility] ([facility] THERAPUTIC HUMAN INR VALUES INDICATIONS NORMAL RANGES PROPHYLAXIS/TREATMENT OF: VENOUS THROMBOSIS 2.0-3.0 PULMONARY EMBOLISM 2.0-3.0 PREVENTION OF SYSTEMIC EMBOLISM FROM: TISSUE HEART VALVES 2.0-3.0 ACUTE MYOCARDIAL INFARCTION 2.0-3.0 VALVULAR HEART DISEASE 2.0-3.0 ATRIAL FIBRILLATION 2.0-3.0 MECHANICAL VALVES(HIGH RISK) 2.5-3.5 RECURRENT MYOCARDIAL INFARCTION 2.5-3.5 Prothrombin Time 17.4 s 11.8-14.0 Above high normal [facility] ([facility] ID Date Data Source [id number] 10/19/2019 09:00:00 AM EDT [facility] ([facility] Name Value Range Interpretation Code Description Data Tere rce(s) Supporting Document(s) Blood Culture Laboratory test result [facility] ([facility] No growth after 72 hours . All specimens observed for 5 days. Results final at that time. No growth after 48 hours . All specimens observed for 5 days. Results final at that time. No growth after 24 hours . All specimens observed for 5 days. Results final at that time. NO GROWTH AFTER 5 DAYS ID Date Data Source [id number] 09/29/2019 01:00:00 PM EDT [facility] Name Value Range Interpretation Code Description Data Tere rce(s) Supporting Document(s) Glucose [Mass/volume] in Capillary blood by Glucometer 106 mg/dL 83-110 Normal (applies to non-numeric results) [facility] ([facility] ID Date Data Source [id number] 09/29/2019 01:00:00 PM EDT [facility] ([facility] ) Name Value Range Interpretation Code Description Data Tere rce(s) Supporting Document(s) Glucose [Mass/volume] in Capillary blood by Glucometer 106 mg/dL 83-110 Normal (applies to non-numeric results) [facility] ([facility]) ID Date Data Source [id number] 09/13/2019 03:32:00 PM EDT [facility] ([facility] Name Value Range Interpretation Code Description Data Tere rce(s) Supporting Document(s) Bacteria identified in Unspecified specimen by Aerobe culture Laboratory test result [facility] ([facility] SRC: LEFT LEG Bacteria identified in Unspecified specimen by Culture Laborator y test result [facility] ([facility] ) SRC: LEFT LEG ID Date Data Source [id number] 09/07/2019 01:55:00 PM EDT [facility] ([facility] Name Value Range Interpretation Code Description Data Tere rce(s) Supporting Document(s) WBC 4.0 10E3/uL 4.1-10.9 Below low normal [facility] ([facility] NORMAL RANGES Age WBC [...] HCT IS 5% LESS SOURCE FOR DATA: [employer] 1800 OPERATION MANUAL( AUTOMATED BLOOD COUNTS AND DIFF.) APPENDIX B-3 RBC 3.93 10E6/uL 4.20-6.30 Below low normal [facility] ([facility] NORMAL RANGES Age [...] HCT IS 5% LESS SOURCE FOR DATA: [employer] 1800 OPERATION MANUAL( AUTOMATED BLOOD COUNTS AND DIFF.) APPENDIX B-3 HGB 12.6 g/dL 12.0-18.0 [facility] ([facility] NORMAL RANGES Age WBC RBC [...] HCT IS 5% LESS SOURCE FOR DATA: [employer] 1800 OPERATION MANUAL( AUTOMATED BLOOD COUNTS AND DIFF.) APPENDIX B-3 MCH 32.1 pg 26.0-32.0 Above high normal [facility] ([facility] NORMAL RANGES Age WBC [...] DIFF.) APPENDIX B-3 MCV 92.6 fL 80.0-97.0 [facility] ([facility] NORMAL RANGES Age WBC RBC [...] HCT 36.4 % 37.0-51.0 Below low normal [facility] ( [facility] NORMAL RANGES Age WBC [...] DIFF.) APPENDIX B-3 RDW-CV 13.7 % 11.5-14.5 [facility] ([facility] NORMAL RANGES Age WBC RBC [...] HCT IS 5% LESS SOURCE FOR DATA: [employer] 1800 OPERATION MANUAL( AUTOMATED BLOOD COUNTS AND DIFF.) APPENDIX B-3 MCHC 34.6 g/dL 31.0-36.0 [facility] ([facility] NORMAL RANGES Age WBC RBC [...] HCT IS 5% LESS SOURCE FOR DATA: [employer] 1800 OPERATION MANUAL( AUTOMATED BLOOD COUNTS AND DIFF.) APPENDIX B-3 PLT 154 10E3/uL 140-440 [facility] ([facility] NORMAL RANGES Age WBC RBC [...] DIFF.) APPENDIX B-3 Neut% 71.2 % 37.0-92.0 [facility] ([facility] NORMAL RANGES Age WBC RBC [...] DIFF.) APPENDIX B-3 Lym% 19.5 % 10.0-58.5 [facility] ([facility] NORMAL RANGES Age WBC RBC HGB [...] DIFF.) APPENDIX B-3 Neut# 2.8 % 2.0-7.8 [facility] ([facility] NORMAL RANGES Age WBC RBC HGB [...] HCT IS 5% LESS SOURCE FOR DATA: [employer] 1800 OPERATION MANUAL( AUTOMATED BLOOD COUNTS AND [...] HCT IS 5% LESS SOURCE FOR DATA: [employer] DYN 1800 OPERATION MANUAL( AUTOMATED BLOOD COUNTS AND DIFF.) APPENDIX B-3 Lym# 0.8 10E3/uL 0.6-4.1 [facility] ([facility] NORMAL RANGES Age WBC RBC HGB [...] HCT IS 5% LESS SOURCE FOR DATA: [employer] 1800 OPERATION MANUAL( AUTOMATED BLOOD COUNTS AND DIFF.) APPENDIX B-3 MPV 10.7 fL 9.0-13.0 [facility] ([facility] NORMAL RANGES Age WBC RBC [...] HCT IS 5% LESS SOURCE FOR DATA: [employer] 1800 OPERATION MANUAL( AUTOMATED BLOOD COUNTS AND DIFF.) APPENDIX B-3 MXD# 0.4 10E3/uL 0.0-1.8 [facility] ([facility] NORMAL RANGES Age WBC RBC [...] DIFF.) APPENDIX B-3 ID Date Data Source [id number] 09/07/2019 08:09:00 AM EDT [facility] ([facility]) Name Value Range Interpretation Code Description Data Tere rce(s) Supporting Document(s) White Blood Count 4.0 4.1-10.9 [facility] ([facility]) Red Blood Count 3.93 4.20-6.30 [facility] ([facility] [facility]) Hematocrit 36.4 [facility] ([facility]) Platelets 154 140-440 [facility] Hemoglobin 12.6 [facility] ([facility]) ID Date Data Source [id number] 07/28/2019 03:23:00 PM EDT [facility] ([facility]) Name Value Range Interpretation Code Description Data Tere rce(s) Supporting Document(s) Glucose [Mass/volume] in Capillary blood by Glucometer 155 mg/dL 83-110 Above high normal [facility] ([facility]) ID Date Data Source [id number] 07/28/2019 03:23:00 PM EDT [facility] ([facility] Name Value Range Interpretation Code Description Data Tere rce(s) Supporting Document(s) Glucose [Mass/volume] in Capillary blood by Glucometer 155 mg/dL 83-110 Above high normal [facility] ([facility] ) ID Date Data Source [id number] 07/28/2019 01:05:00 PM EDT [facility] ([facility]) Name Value Range Interpretation Code Description Data Tere rce(s) Supporting Document(s) Glucose [Mass/volume] in Capillary blood by Glucometer 204 mg/dL 83-110 Above high normal [facility] ([facility]) ID Date Data Source [id number] 07/28/2019 01:05:00 PM EDT [facility] ([facility] Name Value Range Interpretation Code Description Data Tere rce(s) Supporting Document(s) Glucose [Mass/volume] in Capillary blood by Glucometer 204 mg/dL 83-110 Above high normal [facility] ([facility] ) ID Date Data Source [id number] 06/16/2019 12:00:00 AM EDT [facility] Roshni Gaitan Rpa Patient Name: JOSE ANTONIO [id number] Judy [facility] 1945[facility] [place] [address] Date of Exam: 06/16/2019PH#: Fax: [phone] EXAM: [...] rce(s) Supporting Document(s) ID Date Data Source [id number] 06/05/2019 12:00:00 AM EDT [facility] Imaging Roshni Gaitan Rpa Patient Name: RICO LYLE [facility] [place] [facility] 1945[place] [address] Date of Exam: 06/05/2019PH#: Fax: [phone] EXAM: [...] rce(s) Supporting Document(s) ID Date Data Source [id number] 03/28/2019 06:13:00 AM EST [facility] ([facility] Name Value Range Interpretation Code Description Data Tere rce(s) Supporting Document(s) Glucose [Mass/volume] in Capillary blood by Glucometer 113 mg/dL 83-110 Above high normal [facility] ([facility] ID Date Data Source [id number] 03/28/2019 06:13:00 AM EST [facility] ([facility], ) Name Value Range Interpretation Code Description Data Tere rce(s) Supporting Document(s) Glucose [Mass/volume] in Capillary blood by Glucometer 113 mg/dL 83-110 Above high normal [facility] ([facility], ) ID Date Data Source [id number] 03/28/2019 05:50:00 AM EST [facility] ([facility] Name Value Range Interpretation [...] Little GFR Left</content>
<content>ESRD GFR <15 on VISUAL MERCHANDISER</content>
<content></content> Potassium Serum 4.0 meq/L 3.5-5.1 Normal (applies to non-numeric results) [facility] ([facility] Chloride Level 101 meq/L 98-107 Normal (applies to non-numeric r esults) [facility] ([facility] Sodium Level 136 meq/L 136-145 Normal (applies to non-numeric res ults) [facility] ([facility] Calcium Level 9.5 mg/dL 8.8-10.2 Normal (applies to non-numeric re sults) [facility] ([facility] Anion Gap 6 meq/L 8-16 Below low normal [facility] ( [facility] Carbon Dioxide Level 29 meq/L 21-32 Normal (applies to non-num milena results) [facility] ([facility] Phosphorus Level 3.5 mg/dL 2.5-4.9 Normal (applies to non-numeric results) [facility] ([facility] Albumin 3.3 GM/DL 3.2-5.2 Normal (applies to non-numeric resul ts) [facility] ([facility] ID Date Data Source [id number] 03/28/2019 05:50:00 AM EST [facility] ([facility] Name Value Range Interpretation Code Description Data Tere rce(s) Supporting Document(s) White Blood Count 4.4 10 4.0-10.0 Normal (applies to non-numeri c results) [facility] ([facility] Hemoglobin 10.5 g/dL 13.5-17.5 Below low normal [facility] ( [facility] Red Blood Count 3.53 10 4.30-6.10 Below low normal MED ENT ([facility] Mean Corpuscular Volume 92.6 fl 80.0-96.0 Normal ( applies to non-numeric results) [facility] ([facility] ) Mean Corpuscular Hemoglobin 29.7 pg 27.0-33.0 Norm al (applies to non-numeric results) [facility] ([facility] ) Hematocrit 32.7 % 42.0-52.0 Below low normal [facility] ( [facility] Mean Corpuscular HGB Conc 32.1 g/dL 32.0-36.5 Normal (applies to non-numeric results) [facility] ([facility] ) Red Cell Distribution Width 13.9 % 11.5-14.5 Norm al (applies to non-numeric results) [facility] ([facility] ) Platelet Count, Automated 137 10 150-450 Below low normal [facility] ([facility] Nucleated Red Blood Cell % 0.0 % 0-0 Normal (applies to n on-numeric results) [facility] ([facility] ID Date Data Source [id number] 03/28/2019 05:50:00 AM EST [facility] ([facility]) Name Value Range Interpretation Code Description Data Tere rce(s) Supporting Document(s) Glucose, Fasting 121 mg/dL 70-100 Above high normal [facility] Creatinine For GFR 4.07 mg/dL 0.70-1.30 Above high normal [facility] ([facility]) Glomerular Filtration Rate 15.4 Below low normal [facility] ([facility]) <content>Units are mL/min/1.73 m2</content>
<content></content>
<content>Chronic Kidney Disease Staging per NKF:</content>
<content></content>
<content>Stage I & II GFR >=60 Normal to Mildly Decreased</content>
<content>Stage III GFR 30- 59 Moderately Decreased</content>
<content>Stage IV GFR 15-29 Severely Decreased</content>
<content>Stage V GFR <15 Very Little GFR Left</content>
<content>ESRD GFR <15 on VISUAL MERCHANDISER</content>
<content></content> Blood Urea Nitrogen 47 mg/dL 7-18 Above high normal [facility] ([facility]) Sodium Level 136 meq/L 136-145 Normal (applies to non-numeric res ults) [facility] ([facility]) Potassium Serum 4.0 meq/L 3.5-5.1 Normal (applies to non-numeric results) [facility] ([facility]) Carbon Dioxide Level 29 meq/L 21-32 Normal (applies to non-num milena results) [facility] ([facility]) Anion Gap 6 meq/L 8-16 Below low normal [facility] ( [facility]) Chloride Level 101 meq/L 98-107 Normal (applies to non-numeric r esults) [facility] ([facility]) Calcium Level 9.5 mg/dL 8.8-10.2 Normal (applies to non-numeric re sults) [facility] ([facility]) Albumin 3.3 GM/DL 3.2-5.2 Normal (applies to non-numeric resul ts) [facility]) Phosphorus Level 3.5 mg/dL 2.5-4.9 Normal (applies to non-numeric results) [facility] ([facility]) ID Date Data Source [id number] 03/28/2019 05:50:00 AM EST [facility] ([facility]) Name Value Range Interpretation Code Description Data Tere rce(s) Supporting Document(s) White Blood Count 4.4 10 4.0-10.0 Normal (applies to non-numeri c results) [facility] ([facility]) Red Blood Count 3.53 10 4.30-6.10 Below low normal [facility] ([facility]) Hemoglobin 10.5 g/dL 13.5-17.5 Below low normal [facility] ( [facility]) Hematocrit 32.7 % 42.0-52.0 Below low normal [facility] ( [facility]) Mean Corpuscular Volume 92.6 fl 80.0-96.0 Normal ( applies to non-numeric results) [facility]) Mean Corpuscular Hemoglobin 29.7 pg 27.0-33.0 Norm al (applies to non-numeric results) [facility]) Red Cell Distribution Width 13.9 % 11.5-14.5 Norm al (applies to non-numeric results) [facility] ([facility]) Platelet Count, Automated 137 10 150-450 Below low normal [facility] ([facility]) Mean Corpuscular HGB Conc 32.1 g/dL 32.0-36.5 Normal (applies to non-numeric results) [facility] ([facility]) Nucleated Red Blood Cell % 0.0 % 0-0 Normal (applies to n on-numeric results) [facility] ([facility]) ID Date Data Source [id number] 03/27/2019 08:55:00 PM EST [facility] ([facility]) Name Value Range Interpretation Code Description Data Tere rce(s) Supporting Document(s) Glucose [Mass/volume] in Capillary blood by Glucometer 212 mg/dL 83-110 Above high normal [facility] ([facility]) ID Date Data Source [id number] 03/27/2019 08:55:00 PM EST [facility] ([facility] Name Value Range Interpretation Code Description Data Tere rce(s) Supporting Document(s) Glucose [Mass/volume] in Capillary blood by Glucometer 212 mg/dL 83-110 Above high normal [facility] ([facility] ) ID Date Data Source [id number] 03/27/2019 05:26:00 PM EST [facility] ([facility]) Name Value Range Interpretation Code Description Data Tere rce(s) Supporting Document(s) Glucose [Mass/volume] in Capillary blood by Glucometer 150 mg/dL 83-110 Above high normal [facility] ([facility]) ID Date Data Source [id number] 03/27/2019 05:26:00 PM EST [facility] ([facility] Name Value Range Interpretation Code Description Data Teer rce(s) Supporting Document(s) Glucose [Mass/volume] in Capillary blood by Glucometer 150 mg/dL 83-110 Above high normal [facility] ([facility] ) ID Date Data Source [id number] 03/27/2019 11:35:00 AM EST [facility] ([facility]) Name Value Range Interpretation Code Description Data Tere rce(s) Supporting Document(s) Glucose [Mass/volume] in Capillary blood by Glucometer 129 mg/dL 83-110 Above high normal [facility] ([facility]) ID Date Data Source [id number] 03/27/2019 11:35:00 AM EST [facility] ([facility] Name Value Range Interpretation Code Description Data Tere rce(s) Supporting Document(s) Glucose [Mass/volume] in Capillary blood by Glucometer 129 mg/dL 83-110 Above high normal [facility] ([facility] ) ID Date Data Source [id number] 03/27/2019 10:42:00 AM EST [facility] ([facility]) Name Value Range Interpretation Code Description Data Tere rce(s) Supporting Document(s) Potassium [Moles/volume] in Serum or Plasma 3.8 meq/L 3.5- 5.1 Normal (applies to non-numeric results) [facility] ([facility], ) By: CEDSA Time: 1030 By: CEDSA Time: 1030 ID Date Data Source [id number] 03/27/2019 10:42:00 AM EST [facility] ([facility] Name Value Range Interpretation Code Description Data Tere rce(s) Supporting Document(s) Potassium [Moles/volume] in Serum or Plasma 3.8 meq/L 3.5- 5.1 Normal (applies to non-numeric results) [facility] ([facility] By: CEDSA Time: 1030 By: CEDSA Time: 1030 Procedure Social History Code Duration Value Status Description Data Source(s ) Smoking 05/08/2020 12:00:00 AM EST Never Smoked A Pipe complet ed Never Smoked A Pipe [facility] ([facility]) Smoking 05/01/2020 12:00:00 AM EST Patient has never smoked co mpleted Patient has never smoked [facility] ([facility]) Alcohol intake 10/20/2019 12:00:00 AM EDT Current non-d cami of alcohol (finding) completed Current non-drinker of alcohol (finding) [facility] Tobacco use and exposure 10/20/2019 12:00:00 AM EDT Never used co mpleted Never used [facility] Smoking 10/20/2019 12:00:00 AM EDT Never smoker completed Never s [facility] Vital Signs ID Date Data Source [id number] Name Value Range Interpretation Code Description Data Source(s) Heart rate 67 /min 67 /min [facility] ([facility]) Body mass index (BMI) [Ratio] 20.5 kg/m2 20.5 k g/m2 [facility] ([facility]) Body height 74 [in_i] 74 [in_i] [facility] ([facility]) 6'2" Body weight 160.00 [lb_av] 160.00 [lb_av] MEDEN T ([facility]) Oxygen saturation in Arterial blood by Pulse oximetry 98 % 98 % [facility] ([facility] Body mass index (BMI) [Ratio] 21.7 kg/m2 21.7 k g/m2 [facility] ([facility] [place] body weight 178 [lb_av] 178 [lb_av] MEDEN T ([facility] Body weight 160.00 [lb_av] 160.00 [lb_av] MEDEN T ([facility] Body height 72 [in_i] 72 [in_i] [facility] ([facility] 6'0" Respiratory rate 16 /min 16 /min [facility] ( [facility] Heart rate 73 /min 73 /min [facility] Body temperature 97.3 [degF] 97.3 [degF] [facility] ([facility] Diastolic blood pressure 86 mm[Hg] 86 mm[Hg] [facility] ([facility] Systolic blood pressure 142 mm[Hg] 142 mm[Hg] M EDENT ([facility] Body surface area Derived from formula 1.95 m2 1.95 m2 [facility] ([facility], ) Body weight 72.179 kg 72.179 kg [facility] ([facility], ) [place] body weight 184 [lb_av] 184 [lb_av] MEDEN T ([facility], ) Body mass index (BMI) [Ratio] 21.0 kg/m2 21.0 k g/m2 [facility] ([facility], ) Body weight 159.12 [lb_av] 159.12 [lb_av] MEDEN T ([facility]) Body height 73 [in_i] 73 [in_i] [facility] 6'1" Diastolic blood pressure 100 mm[Hg] 100 mm[Hg] [facility] ([facility]) Systolic blood pressure 200 mm[Hg] 200 mm[Hg] [facility] ([facility]) Body surface area Derived from formula 1.94 m2 1.94 m2 [facility] ([facility]) Body weight 71.385 kg 71.385 kg [facility] ([facility]) [place] body weight 184 [lb_av] 184 [lb_av] MEDEN T ([facility]) Body mass index (BMI) [Ratio] 20.8 kg/m2 20.8 k g/m2 [facility] ([facility]) Body weight 157.38 [lb_av] 157.38 [lb_av] MED[facility] T ([facility]) Body height 73 [in_i] 73 [in_i] [facility] 6'1" Diastolic blood pressure 98 mm[Hg] 98 mm[Hg] [facility] ([facility]) Systolic blood pressure 188 mm[Hg] 188 mm[Hg] [facility] ([facility]) Body surface area Derived from formula 1.95 m2 1.95 m2 [facility] ([facility]) Body weight 72.179 kg 72.179 kg [facility] ([facility]) [place] body weight 184 [lb_av] 184 [lb_av] [facility] T ([facility]) Body mass index (BMI) [Ratio] 21.0 kg/m2 21.0 k g/m2 [facility] ([facility]) Body weight 159.12 [lb_av] 159.12 [lb_av] [facility] T ([facility]) Body height 73 [in_i] 73 [in_i] [facility] 6'1" Diastolic blood pressure 83 mm[Hg] 83 mm[Hg] [facility] ([facility] ) Systolic blood pressure 182 mm[Hg] 182 mm[Hg] M [facility] ([facility]) Oxygen saturation in Arterial blood by Pulse oximetry 98 % 98 % [facility] Body mass index (BMI) [Ratio] 22.2 kg/m2 22.2 k g/m2 [facility] ([facility] [place] body weight 178 [lb_av] 178 [lb_av] MEDEN T ([facility] Body weight 164.00 [lb_av] 164.00 [lb_av] MED[facility] T ([facility] Body height 72 [in_i] 72 [in_i] [facility] ([facility] 6'0" Respiratory rate 18 /min 18 /min [facility] ( [facility] Heart rate 90 /min 90 /min [facility] ([facility] Body temperature 98.3 [degF] 98.3 [degF] [facility] ([facility] Diastolic blood pressure 70 mm[Hg] 70 mm[Hg] [facility] ([facility] right arm Systolic blood pressure 142 mm[Hg] 142 mm[Hg] [facility] right arm Body weight 76.205 kg 76.205 kg [facility] ([facility]) [place] body weight 184 [lb_av] 184 [lb_av] MEDEN T ([facility]) Body mass index (BMI) [Ratio] 22.2 kg/m2 22.2 k g/m2 [facility] ([facility]) Body weight 168.00 [lb_av] 168.00 [lb_av] [facility] T ([facility]) Body height 73 [in_i] 73 [in_i] [facility] ([facility]) 6'1" Diastolic blood pressure 80 mm[Hg] 80 mm[Hg] [facility] ([facility]) Systolic blood pressure 199 mm[Hg] 199 mm[Hg] M [facility] ([facility]) Body weight 74.901 kg 74.901 kg [facility] ([facility]) Body mass index (BMI) [Ratio] 21.8 kg/m2 21.8 k g/m2 [facility] ([facility]) Body weight 165.12 [lb_av] 165.12 [lb_av] MED[facility] T ([facility]) Body height 73 [in_i] 73 [in_i] [facility] ([facility]) 6'1" Diastolic blood pressure 60 mm[Hg] 60 mm[Hg] [facility] ([facility]) Systolic blood pressure 118 mm[Hg] 118 mm[Hg] M EDENT ([facility]) Diastolic blood pressure--sitting 70 mm[Hg] 70 mm[Hg] [facility] ([facility]) adult cuff, Ra Systolic blood pressure--sitting 144 mm[Hg] 144 mm[Hg] [facility] ([facility]) adult cuff, Ra Heart rate 75 /min 75 /min [facility] ([facility]) Body mass index (BMI) [Ratio] 21.1 kg/m2 21.1 k g/m2 [facility] ([facility]) Body height 74 [in_i] 74 [in_i] [facility] ([facility]) 6'2" Body weight 164.00 [lb_av] 164.00 [lb_av] MEDEN T ([facility]) Oxygen saturation in Arterial blood by Pulse oximetry 98 % 98 % [facility] ([facility] Body mass index (BMI) [Ratio] 22.2 kg/m2 22.2 k g/m2 [facility] ([facility] [place] body weight 178 [lb_av] 178 [lb_av] MED[facility] T ([facility] Body weight 164.00 [lb_av] 164.00 [lb_av] [facility] T ([facility] Body height 72 [in_i] 72 [in_i] [facility] ([facility] 6'0" Respiratory rate 16 [...] Body height 72 [in_i] 72 [in_i] [facility] ([facility] 6'0" Respiratory rate 16 [...] Body height 72 [in_i] 72 [in_i] [facility] ([facility] 6'0" Respiratory rate 16 /min 16 /min [facility] ( [facility] Heart rate 84 /min 84 /min [facility] ([facility] Body temperature 97.0 [degF] 97.0 [degF] [facility] Diastolic blood pressure 88 mm[Hg] 88 mm[Hg] [facility] ([facility] Systolic blood pressure 140 mm[Hg] 140 mm[Hg] [facility] ([facility] Body weight 75.978 kg 75.978 kg [facility] ([facility], ) Body mass index (BMI) [Ratio] 22.1 kg/m2 22.1 k g/m2 [facility] ([facility]) Body weight 167.50 [lb_av] 167.50 [lb_av] MEDEN T ([facility]) Body height 73 [in_i] 73 [in_i] [facility] ([facility]) 6'1" Diastolic blood pressure 74 mm[Hg] 74 mm[Hg] [facility] ([facility]) Systolic blood pressure 162 mm[Hg] 162 mm[Hg] [facility] ([facility]) Oxygen saturation in Arterial blood by Pulse oximetry 98 % 98 % [facility] ([facility] Body mass index (BMI) [Ratio] 22.4 kg/m2 22.4 k g/m2 [facility] ([facility] Body weight 165.00 [lb_av] 165.00 [lb_av] MEDEN T ([facility] Body height 72 [in_i] 72 [in_i] [facility] ([facility] 6'0" Respiratory rate 16 /min 16 /min [facility] ( [facility] Heart rate 96 /min 96 /min [facility] ([facility] Body temperature 97.1 [degF] 97.1 [degF] [facility] ([facility] Diastolic blood pressure 68 mm[Hg] 68 mm[Hg] [facility] ([facility] Systolic blood pressure 140 mm[Hg] 140 mm[Hg] [facility] ([facility] Body weight 74.617 kg 74.617 kg [facility] ([facility]) Body mass index (BMI) [Ratio] 21.7 kg/m2 21.7 k g/m2 [facility] ([facility]) Body weight 164.50 [lb_av] 164.50 [lb_av] MED[facility] T ([facility]) Body height 73 [in_i] 73 [in_i] [facility] 6'1" Diastolic blood pressure 72 mm[Hg] 72 mm[Hg] [facility] ([facility]) Systolic blood pressure 114 mm[Hg] 114 mm[Hg] [facility] ([facility]) Body weight 76.205 kg 76.205 kg [facility] ([facility]) Body mass index (BMI) [Ratio] 22.2 kg/m2 22.2 k g/m2 [facility] ([facility]) Body weight 168.00 [lb_av] 168.00 [lb_av] MED[facility] T ([facility]) Body height 73 [in_i] 73 [in_i] [facility] 6'1" Body temperature 97.5 [degF] 97.5 [degF] [facility] ([facility]) Diastolic blood pressure 70 mm[Hg] 70 mm[Hg] [facility] ([facility]) Systolic blood pressure 160 mm[Hg] 160 mm[Hg] [facility] ([facility]) Body weight 74.050 kg 74.050 kg [facility] ([facility]) Body mass index (BMI) [Ratio] 21.5 kg/m2 21.5 k g/m2 [facility] [facility] Body weight 163.25 [lb_av] 163.25 [lb_av] [facility] ([facility]) Body height 73 [in_i] 73 [in_i] [facility] 6'1" Body temperature 97.7 [degF] 97.7 [degF] [facility] ([facility]) Diastolic blood pressure 80 mm[Hg] 80 mm[Hg] [facility] ([facility]) Systolic blood pressure 145 mm[Hg] 145 mm[Hg] [facility] Oxygen saturation in Arterial blood by Pulse oximetry 96 % 96 % [facility] ([facility] Body mass index (BMI) [Ratio] 22.8 kg/m2 22.8 k g/m2 [facility] ([facility] Body weight 168.00 [lb_av] 168.00 [lb_av] [facility] ([facility] Body height 72 [in_i] 72 [in_i] [facility] ([facility] 6'0" Respiratory rate 16 /min 16 /min [facility] Heart rate 88 /min 88 /min [facility] ([facility] Body temperature 98.0 [degF] 98.0 [degF] [facility] ([facility] Diastolic blood pressure 72 mm[Hg] 72 mm[Hg] [facility] Systolic blood pressure 134 mm[Hg] 134 mm[Hg] [facility] Body weight 76.885 kg 76.885 kg [facility] ([facility]) Body mass index (BMI) [Ratio] 22.4 kg/m2 22.4 k g/m2 [facility] ([facility]) Body weight 169.50 [lb_av] 169.50 [lb_av] [facility] ([facility]) Body height 73 [in_i] 73 [in_i] [facility] ([facility]) 6'1" Body temperature 97.7 [degF] 97.7 [degF] [facility] ([facility]) Diastolic blood pressure 58 mm[Hg] 58 mm[Hg] [facility] ([facility]) Systolic blood pressure 146 mm[Hg] 146 mm[Hg] [facility] Oxygen saturation in Arterial blood by Pulse oximetry 98 % 98 % [facility] ([facility] Body mass index (BMI) [Ratio] 23.1 kg/m2 23.1 k g/m2 [facility] ([facility] Body weight 170.00 [lb_av] 170.00 [lb_av] [facility] ([facility] Body height 72 [in_i] 72 [in_i] [facility] ([facility] 6'0" Respiratory rate 16 /min 16 /min [facility] ( [facility] Heart rate 79 /min 79 /min [facility] ([facility] Body temperature 97.9 [degF] 97.9 [degF] [facility] ([facility] Diastolic blood pressure 72 mm[Hg] 72 mm[Hg] [facility] ([facility] Systolic blood pressure 140 mm[Hg] 140 mm[Hg] M EDENT ([facility] Diastolic blood pressure 80 mm[Hg] 80 mm[Hg] [facility] ([facility] Systolic blood pressure 150 mm[Hg] 150 mm[Hg] M EDENT ([facility] Body weight 79.437 kg 79.437 kg [facility] ([facility]) Body mass index (BMI) [Ratio] 23.1 kg/m2 23.1 k g/m2 [facility] ([facility]) Body weight 175.12 [lb_av] 175.12 [lb_av] [facility] ([facility]) Body height 73 [in_i] 73 [in_i] [facility] ([facility]) 6'1" Diastolic blood pressure 82 mm[Hg] 82 mm[Hg] [facility] ([facility]) Systolic blood pressure 191 mm[Hg] 191 mm[Hg] [facility] Diastolic blood pressure--sitting 78 mm[Hg] 78 mm[Hg] [facility] ([facility]) large cuff, Ra Systolic blood pressure--sitting 132 mm[Hg] 132 mm[Hg] [facility] ([facility]) large cuff, Ra Heart rate 85 /min 85 /min [facility] ([facility] Body mass index (BMI) [Ratio] 22.2 kg/m2 22.2 k g/m2 [facility] ([facility]) Body height 74 [in_i] 74 [in_i] [facility] 6'2" Body weight 173.00 [lb_av] 173.00 [lb_av] [facility] ([facility]) Oxygen saturation in Arterial blood by Pulse oximetry 98 % 98 % [facility] ([facility] Body mass index (BMI) [Ratio] 23.7 kg/m2 23.7 k g/m2 [facility] ([facility] Body weight 175.00 [lb_av] 175.00 [lb_av] [facility] ([facility] Body height 72 [in_i] 72 [in_i] [facility] ([facility] 6'0" Respiratory rate 16 /min 16 /min [facility] ( [facility] Heart rate 88 /min 88 /min [facility] ([facility] Body temperature 97.6 [degF] 97.6 [degF] [facility] Diastolic blood pressure 72 mm[Hg] 72 mm[Hg] [facility] Systolic blood pressure 138 mm[Hg] 138 mm[Hg] M THIERRY ([facility] ID Date Data Source [id number] 10/27/2019 08:40:35 AM [facility] Name Value Range Interpretation Code Description Data Source(s) WEIGHT RECORDED 163.4 lb 163.4 lb [facility] WEIGHT RECORDED 167.77 lb 167.77 lb [facility] WEIGHT RECORDED 161.6 lb 161.6 lb [facility] WEIGHT RECORDED 164.9 lb 164.9 lb [facility] WEIGHT RECORDED 165.12 lb 165.12 lb [facility] WEIGHT RECORDED 163.4 lb 163.4 lb [facility] Body height Measured 73 in 73 in [facility] WEIGHT RECORDED 163.4 lb 163.4 lb [facility] Body height Measured 73 in 73 in [facility] Patient Treatment Plan of Care Planned Activity Planned Date Details Description Data Source (s) Tamsulosin hydrochloride 0.4 MG Oral Capsule 10/25/2019 12:00:00 AM [facility] Simethicone 80 MG Chewable Tablet 10/25/2019 12:00:00 AM [facility] sennosides, MCFP 8.6 MG Oral Tablet 10/25/2019 12:00:00 AM [facility] Oxycodone Hydrochloride 5 MG Oral Tablet 10/25/2019 12:00:00 AM [facility] Furosemide 40 MG Oral Tablet 10/25/2019 12:00:00 AM [facility] cefpodoxime 200 MG Oral Tablet 10/25/2019 12:00:00 AM [facility] Carboxymethylcellulose Sodium 5 MG/ML Ophthalmic Solut ion 10/25/2019 12:00:00 AM [facility] ospital apixaban 2.5 MG Oral Tablet 10/25/2019 12:00:00 AM [facility] Acetaminophen 325 MG Oral Tablet 10/25/2019 12:00:00 AM [facility] oxyCODONE (ROXICODONE) immediate release tablet 2.5 mg 10/24/2019 11:55:26 AM [facility] ospital 168 HR Clonidine 0.95157 MG/HR Transdermal Patch 10/22/2019 12:00:0 0 AM [facility] insulin lispro (HumaLOG) injection LOW DOSE EATING INS ULIN patients 1-8 Units 10/20/2019 01:00:00 PM [facility] dextrose 50 % IV solution 25 mL 10/20/2019 09:06:53 AM [facility] Glucagon 1 MG Injection 10/20/2019 09:06:53 AM [facility] Glucose 0.417 MG/MG Oral Gel 10/20/2019 09:06:53 AM [facility] Amiloride Hydrochloride 5 MG Oral Tablet 12/06/2017 12:00:00 AM [facility] valsartan 160 MG Oral Tablet [facility]
[2020-05-10] MEDS ORDERED: diazePAM 10MG/2ML SYRINGE (J3360 PER 5MG) IV ONE ×2 (07:35→10:25)
[2020-05-10 09:35] LABS: CK-MB VALUE MASS 2.4 NG/ML (<3.6); MB/CK RELATIVE INDEX 5.22 (< OR =4); TROPONIN I 0.04 NG/ML (< 0.10)
--- NOTE | 2020-05-10 11:30 | REPVR ---
PROCEDURE INFORMATION: Exam: MR Head Without Contrast Exam date and time: 05/10/2020 11:16 AM Age: 74 years old Clinical indication: Other: Vertigo, R/O posterior CVA TECHNIQUE: Imaging protocol: MR of the head without contrast. COMPARISON: CT Head without contrast 05/10/2020 4:30 AM FINDINGS: Brain: The brain demonstrates generalized volume loss. Patchy increased signal intensity in the deep white matter and central paris on the T2 weighted imaging most likely represents chronic small vessel ischemic change. There are a few, focal chronic deep white matter infarcts. Focal, chronic lacunar infarcts in the right thalamus and left basal ganglia. No acute infarct identified on the diffusion-weighted imaging. No parenchymal hemorrhage. Cerebral ventricles: The ventricles are mildly enlarged in keeping with volume loss. Bones/joints: Unremarkable. Paranasal sinuses: Trace ethmoid mucosal thickening. Mastoid air cells: Normal as visualized. No mastoid effusion. Orbital cavity: Thinning of the lenses of the globes consistent with prior lens surgery. Soft tissues: Unremarkable. IMPRESSION: No evidence of acute infarct. Electronically signed by: Barb Montenegro On 05/10/2020 11:30:39 AM
[2020-05-10] MEDS ORDERED: ONDANSETRON 4 MG ORAL DISINTEGRATING TAB PO ONE (12:10)
[2020-05-10] MEDS ORDERED: MECLIZINE 25 MG TABLET PO ONE (13:00)
[2020-05-10] MEDS ORDERED: VALSARTAN 80 MG TAB (DIOVAN) PO ONE (13:30)
[2020-05-10] MEDS ORDERED: NS 500 ML IV ONE (13:30)
--- NOTE | 2020-05-10 14:43 | HPEPDOC ---
[facility] Medical History & Physical Date of Admission May 10, 2020 Date of Service: May 10, 2020 Attending Physician: Matilda Farris MD History and Physical CHIEF COMPLAINT: Dizziness HISTORY OF PRESENT ILLNESS: The patient is a 74-year-old male with past medical history of end-stage renal disease on hemodialysis, hypertension, CAD status post CABG, diastolic heart failure, persistent atrial fibrillation, GERD, diabetes type 2 who presented to [facility] emergency room via EMS after having acute onset of dizziness and weakness over the evening. According to the patient around 12:00 in the morning he woke up to go to his bedroom to continue his night sleep when he experienced sudden spinning around the room, increased lightheadedness, dizziness, nausea, vomiting, anterior chest tightness localized substernally and across anterior chest, 4 out of 10 on scale, nonradiating. The patient also described this feeling as being on a "helicopter". He then became warm "all over" and had to sit back down on the couch because he felt as if he was a fall. When he attempted to get back up he was unsteady on his feet. He is normally independent and does not depend on help with ambulation. He laid down for a long period of time due to the symptoms above and eventually was able to obtain his life alert button which was pushed at approximately 12:45 AM. He also complains of increased lethargy during his episode. He denies shortness of breath, recent changes in medications, abdominal pain, diarrhea, recent illnesses or hospitalizations. He states he has had the same feeling of dizziness in the past when he was given too much diuretic, overdiuresis. He states that the last 2 sessions and hemodialysis they have to cut down the amount of fluid taken off due to anterior chest pressure. The patient was brought to the emergency room for further evaluation In the emergency room blood pressure ranged 345897 mmHg systolic, other vital signs were stable. H&H 11.2/35.7, B UN 48/creatinine 2.95 (baseline 3.54.07). All imaging and other labs appeared unremarkable. ECG showed atrial fibrillation with an unchanged ECG compared to prior on file. The patient was given several doses of Valium, MRI was negative. He was also given meclizine but the spinning of the room and nausea persisted. The patient was ultimately admitted for hypertensive urgency, vertigo. REVIEW OF SYSTEMS: Neg except for what is mentioned above PAST MEDICAL HISTORY: ESRD on HD TuesThSat nephrectomy for renal cancer with a solitary kidney HTN CAD s/p CABG chronic diastolic heart failure persistent atrial fibrillation hypothyroidism cervical spine stenosis GERD Dm type II basal cell CA with excisional biopsy gout anxiety diverticular disease of the large colon prior GI bleed and hemorrhoids peripheral neuropathy PVD Hx of cellulitis Hx of cataracts Hx of colonic polyps glaucoma. PAST SURGICAL HISTORY: CABG 2007 left nephrectomy cataract extraction colonic polypectomy history of coronary stents and cardial ablation FAMILY HISTORY: Noncontributory SOCIAL HISTORY: The patient is a retired resident of [place], 5 grown children. No history of premature heart disease. ALLERGIES: Please see below. HOME MEDICATIONS: Please see below. PHYSICAL EXAMINATION: VS : Please see below CONSTITUTIONAL: No acute distress, resting comfortably, AAO x 3 EYES: PERRLA, EOM intact HENT, MOUTH: Normocephalic, atraumatic, moist mucous membranes, NECK: SUPPLE, no JVD, no lymphadenopathy, no carotid bruit CV: Regular rate and rhythm, S1S2 normal, no murmurs/rubs/gallops CHEST: Right side permacath for dialysis RESPIRATORY: Clear to auscultation bilaterally, no rales/rhonchi/wheezes GI: BS positive in 4 quadrants, soft, nontender, nondistended, no rebound or guarding, no organomegaly : Deferred MUSCULOSKELETAL: Normal ROM. No cyanosis, clubbing, swelling, joint deformity, +1 pitting lower extremity edema INTEGUMENTARY: Slight redness of left anterior kidd, not warm to touch. Tenderness of b/l lower ext to touch. Intact, no rashes, no lesions NEUROLOGIC: Cranial Nerves II-XII are intact, no focal deficits PSYCHIATRIC: Mood and affect are normal LABORATORY DATA: Please see below IMAGING: MRI brain: unremarkable CXR: 1. Small bilateral pleural effusions, which were also present on the prior CT scan. 2. Cardiomegaly, which appears larger than on the prior chest x-ray but the ap parent difference may be due to the lower lung volumes currently. ASSESSMENT: 74-year-old male with past medical history of end-stage renal disease on hemodialysis, hypertension, CAD status post CABG, diastolic heart failure, persistent atrial fibrillation, GERD, diabetes type 2 admitted for hypertensive urgency, vertigo. PLAN: Dizziness possibly vertigo 2/2 to hypertensive urgency vs. orthostatic changes vs. other cause -BP systolic in ER 157-229 mmHg systolic, persistent dizziness, lightheadedness, horizontal nystagmus present -MRI brain neg -+ nausea, vomiting, lightheadedness, unsteadiness, anterior chest discomfort -F/u orthostatics, daily labs -Nephrology made aware as patient feels this is similar to when he had "too much fluid" taken off by "water pills" one time. He also says that they have had to decrease the amount of fluid taken off at dialysis recent due to anterior chest discomfort. -PT/OT, vestibular therapist to see in the AM -Strict blood pressure control as discussed below Hypertensive urgency -BP above -Starting on all home meds plus adding hydralazine (not true allergy but says adverse reaction is "fluid retention") to be given if systolic BP >180 mmHg. -HD in the AM -Tele. Chest discomfort, r/o ACS -Hx of CAD s/p CABG -ECG showed no new ST or T wave changes, trop neg -Will continue to cycle trop -Tele, c/w home ASA, statin, nitro PRN ESRD on HD TuesThSat -Cr better than normal baseline -Nephrology consulted, to sent to HD in the AM Anemia of chronic disease -H/H stable -Daily CBC Atrial fibrillation, persistent and chronic -Stable and rate controlled -C/w home meds HFpEF, stable and not in exacerbation -C/w home meds, HD DM type II -BS stable -ISS, FS AC/HS, consistent carb diet Hypothyroidism -C/w home synthroid GERD -PPI DVT px -Eliquis BID DISPOSITION: Nephrology consulted. Plan is home when medically improved. Vital Signs Vital Signs Date Time Temp Pulse Resp B/P (MAP) Pulse Ox O2 Delivery O2 Flow Rate FiO2 05/10/20 13:30 80 16 180/100 (126) 100 Room Air 05/10/20 04:15 97.5 Laboratory Data Labs 24H Laboratory Tests 2 05/10/20 04:11: Immature Granulocyte % (Auto) 0.7, Neutrophils (%) (Auto) 83.6H, Lymphocytes (%) (Auto) 7.1L, Monocytes (%) (Auto) 6.3, Eosinophils (%) (Auto) 1.9, Basophils (%) (Auto) 0.4, Neutrophils # (Auto) 2.2, Lymphocytes # (Auto) 0.2L, Monocytes # (Auto) 0.2, Eosinophils # (Auto) 0.1, Basophils # (Auto) 0.0, Nucleated Red Blood Cells % (auto) 0.0, Immature Platelet Fraction 2.3, Prothrombin Time 15.1H, Prothromb Time International Ratio 1.16, Activated Partial Thromboplast Time 33.3, Anion Gap 9, Glomerular Filtration Rate 22.2L, Calcium Level 8.5L, T otal Bilirubin 0.3, Direct Bilirubin 0.2, Aspartate Amino Transf (AST/SGOT) 16, Alanine Aminotransferase (ALT/SGPT) 36, Alkaline Phosphatase 108, Total Creatine Kinase 55, Creatine Kinase MB 1.9, Creatine Kinase MB Relative Index 3.45, Troponin I 0.02, C-Reactive Protein, Quantitative 0.30, Total Protein 6.7, Albumin 3.5, Albumin/Globulin Ratio 1.1, Thyroid Stimulating Hormone (TSH) 4.070H, Free Thyroxine 0.92 05/10/20 05:04: Immature Granulocyte % (Auto) 0.8, Neutrophils (%) (Auto) 87.5H, Lymphocytes (%) (Auto) 6.0L, Monocytes (%) (Auto) 3.8, Eosinophils (%) (Auto) 1.3, Basophils (%) (Auto) 0.6, Neutrophils # (Auto) 5.5, Lymphocytes # (Auto) 0.4L, Monocytes # (Auto) 0.2, Eosinophils # (Auto) 0.1, Basophils # (Auto) 0.0, Nucleated Red Blood Cells % (auto) 0.0, Erythrocyte Sedimentation Rate 19, Coronavirus (COVID- 19)(PCR) NEGATIVE, Influenza Type A (RT-PCR) NEGATIVE, Influenza Type B (RT-PCR) NEGATIVE, Respiratory Syncytial Virus (PCR) NEGATIVE 05/10/20 08:29: Total Creatine Kinase 46, Creatine Kinase MB 2.4, Creatine Kinase MB Relative Index 5.22H, Troponin I 0.04# CBC/BMP Laboratory Tests 05/10/20 04:11 05/10/20 05:04 Microbiology Microbiology 05/10/20 Blood Culture, Received Pending 05/10/20 Blood Culture, Received Pending Home Medications Scheduled Allopurinol (Allopurinol) 100 Mg Tablet, 100 MG PO DAILY Apixaban (Eliquis) 2.5 Mg Tablet, 2.5 MG PO BID Aspirin (Aspirin EC) 81 Mg Tabec, 81 MG PO DAILY Atorvastatin Calcium (Atorvastatin Calcium) 40 Mg Tab, 40 MG PO QHS Calcitriol (Calcitriol) 0.25 Mcg Capsule, 0.25 MCG PO 3XW MON, WED, FRI Clonidine (Clonidine) 0.1 Mg Patch.tdwk, 1 PATCH TOP 1XWK Gabapentin (Gabapentin) 100 Mg Capsule, 100 MG PO BID Latanoprost (Xalatan) 0.005 % Zena, 1 DROP OU QHS Levothyroxine Sodium (Levothyroxine Sodium) 88 Mcg Tablet, 88 MCG PO DAILY Multivitamins (Thera M Plus Tablet) 1 Tab Tab, 1 TAB PO DAILY Pantoprazole Sodium (Pantoprazole Sodium) 40 Mg Tablet.dr, 40 MG PO DAILY Polyethylene Glycol 3350 (Miralax) 119 Gm Powder, 17 GM PO DAILY Torsemide (Torsemide) 100 Mg Tablet, 50 MG PO BID 0900, 1700 Valsartan (Valsartan) 160 Mg Tablet, 160 MG PO DAILY Scheduled PRN Alprazolam (Alprazolam) 0.5 Mg Tablet, 0.5 MG PO DAILY PRN for ANXIETY Lactulose (Lactulose) 10 Gm/15 Ml Solution, 30 ML PO DAILY PRN for CONSTIPATION Lidocaine (Lidoderm) 5 % Dis, 1 PATCH TD DAILY PRN for PAIN APPLY TO LOWER BACK 12H ON 12H OFF Nitroglycerin (Nitrostat) 0.4 Mg Tab.subl, 0.4 MG SL NITRO PRN for CHEST PAIN Allergies Coded Allergies: Penicillins (Verified Allergy, Mild, rash/itching, 03/29/20) Tetracyclines (Verified Allergy, Mild, ITCHING, 03/29/20) Sulfa (Sulfonamide Antibiotics) (Unverified Allergy, Unknown, unknown, 03/29/20) erythromycin base (Unverified Allergy, Unknown, unknown, 03/29/20) minoxidil (Verified Allergy, Unknown, ANASARCA, 05/10/20) Contrast Media (Verified Adverse Reaction, Mild, MADE LEG TURN RED, 11/03/19) amlodipine (Verified Adverse Reaction, Mild, FLUID RETENTION, 11/03/19) carvedilol (Verified Adverse Reaction, Mild, FLUID RETENTION, 11/03/19) cephalexin (Unverified Adverse Reaction, Unknown, FLUID RETENTION, 05/10/20) hydralazine (Unverified Adverse Reaction, Unknown, FLUID RETENTION, 05/10/20) A-FIB/CHADSVASC A-FIB History Current/History of A-Fib/PAF?: Yes Current PO Anticoag Therapy: Yes Age/Risk Factor Scoring CHADSVASC: CHADSVASC Response (Comments) Value Age Risk Factor Age >/= 75 years old 2 Gender Risk Factor Male 0 Hx of CHF Yes 1 Hx of HTN Yes 1 Hx of Stroke/TIA/or VTE No 0 Hx of Diabetes Yes 1 Hx of Vascular Disease Yes 1 Total 6 Treatment Treatment ordered: Apixaban Matilda Farris MD May 10, 2020 14:43
[2020-05-10] MEDS ORDERED: ACETAMINOPHEN TAB 650MG DOSE (2X325MG) PO PRN (14:50)
[2020-05-10] MEDS ORDERED: PANT40TA29 PO (15:56)
[2020-05-10] MEDS ORDERED: MONT10TA10 PO (15:56)
[2020-05-10] MEDS ORDERED: CLON0.2D6 TOP (15:56)
[2020-05-10] MEDS ORDERED: PANTOPRAZOLE 40MG TAB (PROTONIX) PO PRN (16:05)
[2020-05-10] MEDS ORDERED: ALPRAZolam 0.5 MG TAB PO PRN (16:05)
[2020-05-10] MEDS ORDERED: LIDOCAINE 5% (LIDODERM) PATCH TD PRN (16:05)
[2020-05-10] MEDS ORDERED: GLUCOSE 4GM CHEW TABLET PO PRN (16:15)
[2020-05-10] MEDS ORDERED: GLUCAGON INJ 1MG VIAL SC PRN (16:15)
[2020-05-10] MEDS ORDERED: DEXTROSE 50% 50 ML SYRINGE IV PRN (16:15)
--- NOTE | 2020-05-10 17:00 | ECGEPIP ---
[facility] - ED Test Date: 2020-05-10 Pat Name: JEANNA LYLE Department: Room: - Gender: Male Team Physician: ED : 1945 Requested By: JASON Vyas Order Number: [id number] Reading MD: Jason Gardner Measurements Intervals [place] Rate: 68 P: [place]: QRS: 44 QRSD: 90 T: -36 QT: 378 QTc: 401 Interpretive Statements Atrial fibrillation with premature ventricular or aberrantly conducted complexes Nonspecific ST and T wave abnormality baseline artifact ectopy new from tracing done 03-04-19 Electronically Signed on 05-10-2020 17:00:06 EST by Jason Gardner
--- NOTE | 2020-05-10 17:04 | ECGEPIP ---
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
[2020-05-10] MEDS: HumaLOG INSULIN (NovoLOG) PER UNIT SC SCH (17:30)
[2020-05-10] MEDS ORDERED: cloNIDine HCL 0.3 MG/24 HR PATCH TOP SCH (18:00)
[2020-05-10] MEDS: hydrALAZINE 20MG/ML 1ML VIAL (J0360 PER 20MG) IV SCH ×2 (18:05→22:00)
[2020-05-10] MEDS: TORSEMIDE (DEMADEX) 50 MG PER 1/2 TAB PO SCH (18:53)
[2020-05-10] MEDS ORDERED: ATORVASTATIN 20 MG TAB PO SCH (21:00)
[2020-05-10] MEDS ORDERED: HumaLOG INSULIN (NovoLOG) PER UNIT SC SCH (21:00)
[2020-05-10] MEDS ORDERED: LATANOPROST 0.005% OPHTH SOLN 2.5 ML OU SCH (21:00)
[2020-05-10] MEDS ORDERED: **NOTE PATIENT COMMENT** MISC XX SCH (21:00)
[2020-05-10] MEDS: APIXABAN 2.5 MG TAB (ELIQUIS) PO SCH (21:35)
[2020-05-10] MEDS: GABAPENTIN 100 MG CAP PO SCH (21:36)
[2020-05-10] MEDS: NITROGLYCERIN 0.4 MG SUBL TABLET SL PRN ×3 (21:36→22:10)
[2020-05-11] VITALS: BP 166/77
[2020-05-11 04:00] VITALS: BP 154/72
[2020-05-11] MEDS: hydrALAZINE 20MG/ML 1ML VIAL (J0360 PER 20MG) IV SCH ×2 (04:00→08:48)
[2020-05-11 04:41] LABS: HEMATOCRIT 31.3 % (42.0-52.0); MEAN CORPUSCULAR HEMOGLOBIN 31.4 pg (27.0-33.0); MEAN CORPUSCULAR HGB CONC 31.9 g/dl (32.0-36.5); MEAN CORPUSCULAR VOLUME 98.4 fl (80.0-96.0); PLATELET COUNT, AUTOMATED 154 10^3/uL (150-450); RED BLOOD COUNT 3.18 10^6/uL (4.30-6.10); WHITE BLOOD COUNT 4.5 10^3/uL (4.0-10.0)
[2020-05-11 05:16] LABS: ALBUMIN 3.1 GM/DL (3.2-5.2); BILIRUBIN,TOTAL 0.3 MG/DL (0.2-1.0); CALCIUM LEVEL 8.6 MG/DL (8.8-10.2); CREATININE FOR GFR 3.89 MG/DL (0.70-1.30); GLOMERULAR FILTRATION RATE 16.1 (>42); POTASSIUM SERUM 3.9 MEQ/L (3.5-5.1); TOTAL PROTEIN 5.9 GM/DL (6.4-8.2)
[2020-05-11] MEDS ORDERED: LEVOTHYROXINE 88MCG TABLET (0.088 MG) PO SCH (06:00)
[2020-05-11] MEDS: GABAPENTIN 100 MG CAP PO SCH ×2 (06:31→08:31)
[2020-05-11] MEDS: HumaLOG INSULIN (NovoLOG) PER UNIT SC SCH ×2 (07:30→12:00)
[2020-05-11 08:00] VITALS: BP 187/78
[2020-05-11] MEDS: APIXABAN 2.5 MG TAB (ELIQUIS) PO SCH (08:31)
[2020-05-11] MEDS: TORSEMIDE (DEMADEX) 50 MG PER 1/2 TAB PO SCH (08:31)
[2020-05-11] MEDS ORDERED: SODIUM CHLORIDE 0.9% 1000ML IV PRN (08:50)
--- NOTE | 2020-05-11 08:58 | ECGEPIP ---
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
--- NOTE | 2020-05-11 08:58 | ECGEPIP ---
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
[2020-05-11] MEDS ORDERED: MULTIVITAMINS/MINERALS THERAP 1 TAB PO SCH (09:00)
[2020-05-11] MEDS ORDERED: allopurinoL 100 MG TAB PO SCH (09:00)
[2020-05-11] MEDS ORDERED: ASPIRIN 81 MG ENTERIC TAB PO SCH (09:00)
[2020-05-11] MEDS ORDERED: VALSARTAN 80 MG TAB (DIOVAN) PO SCH (09:00)
[2020-05-11] MEDS ORDERED: MONTELUKAST 10 MG TAB PO SCH (09:00)
[2020-05-11] MEDS ORDERED: NITROGLYCERIN 0.4 MG/HR PATCH TD SCH (09:00)
[2020-05-11] MEDS ORDERED: MIRALAX *UNIT DOSE* 17GM PACKET PO SCH (09:00)
[2020-05-11] MEDS: NITROGLYCERIN 0.4 MG SUBL TABLET SL PRN (09:48)
[2020-05-11] MEDS ORDERED: HEPARIN DRIP 25,000 UNITS in IV 1 EA IV SCH (10:20)
[2020-05-11 11:30] VITALS: BP 158/80
[2020-05-11 12:00] VITALS: BP 153/67
[2020-05-11] MEDS ORDERED: HEPARIN 25,000 UNITS/250 ML D5W BAG (100 UNITS/ML) (J1644 PER 1000UNITS) As Ordered ONE (12:30)
[2020-05-11] MEDS ORDERED: NITROGLYCERIN 0.4 MG/HR PATCH As Ordered ONE (12:31)
[2020-05-11] MEDS ORDERED: hydrALAZINE 20MG/ML 1ML VIAL (J0360 PER 20MG) IV PRN (13:15)
--- NOTE | 2020-05-11 14:14 | DS.PDOC ---
Discharge Summary General Date of Admission May 10, 2020 at 03:55 Date of Discharge 05/11/20 Attending Physician: Matilda Farris MD Discharge Summary HISTORY OF PRESENT ILLNESS: The patient is a 74-year-old male with past medical history of end-stage renal disease on hemodialysis, hypertension, CAD status post CABG, diastolic heart failure, persistent atrial fibrillation, GERD, diabetes type 2 who presented to [facility] emergency room via EMS after having acute onset of dizziness and weakness over the evening. According to the patient around 12:00 in the morning he woke up to go to his bedroom to continue his night sleep when he experienced sudden spinning around the room, increased lightheadedness, dizziness, nausea, vomiting, anterior chest tightness localized substernally and across anterior chest, 4 out of 10 on scale, nonradiating. The patient also described this fe eling as being on a "helicopter". He then became warm "all over" and had to sit back down on the couch because he felt as if he was a fall. When he attempted to get back up he was unsteady on his feet. He is normally independent and does not depend on help with ambulation. He laid down for a long period of time due to the symptoms above and eventually was able to obtain his life alert button which was pushed at approximately 12:45 AM. He also complains of increased lethargy during his episode. He denies shortness of breath, recent changes in medications, abdominal pain, diarrhea, recent illnesses or hospitalizations. He states he has had the same feeling of dizziness in the past when he was given too much diuretic, overdiuresis. He states that the last 2 sessions and hemodialysis they have to cut down the amount of fluid taken off due to anterior chest pressure. The patient was brought to the emergency room for further evaluation In the emergency room blood pressure ranged 404636 mmHg systolic, other vital signs were stable. H&H 11.2/35.7, B UN 48/creatinine 2.95 (baseline 3.54.07). All imaging and other labs appeared unremarkable. ECG showed atrial fibrillation with an unchanged ECG compared to prior on file. The patient was given several doses of Valium, MRI was negative. He was also given meclizine but the spinning of the room and nausea persisted. The patient was ultimately admitted for hypertensive urgency, vertigo, chest tightness/pressure r/o cardiac cause. HOSPITAL COURSE: Throughout the evening, patient's blood pressure improved, dizziness improved as well. Overnight he experienced more frequent anterior chest discomfort/pressure. Troponin peaked to 0.18, repeat ECG done showed atrial fibrillation, possible ST elevated V2 intially. Repeat Troponin decreased; however, patient had repeat ECG which showed slight V2, V3 ST elevation. Patient's information was reviewed with Dr. Johnson, supervisor tree trimming on-call who suggested transfer to facility with cardiac catheterization capabilities. On AM of 05/11/20, patient's case was discussed with Dr. Hilario, cardiology at [facility] who accepted patient. At time of transfer, patient was anxious but was hemodynamically stable on heparin gtt. PAST MEDICAL HISTORY: ESRD on HD TuesThSat nephrectomy for renal cancer with a solitary kidney HTN CAD s/p CABG chronic diastolic heart failure persistent atrial fibrillation hypothyroidism cervical spine stenosis GERD Dm type II basal cell CA with excisional biopsy gout anxiety diverticular disease of the large colon prior GI bleed and hemorrhoids peripheral neuropathy PVD Hx of cellulitis Hx of cataracts Hx of colonic polyps glaucoma. PAST SURGICAL HISTORY: CABG 2007 left nephrectomy cataract extraction colonic polypectomy history of coronary stents and cardial ablation FAMILY HISTORY: Noncontributory SOCIAL HISTORY: The patient is a retired resident of [place], 5 grown children. No history of premature heart disease. ALLERGIES: Please see below. HOME MEDICATIONS: Please see below. PHYSICAL EXAMINATION: VS : T 98, RR 18, HR 73, BP 155/96, 100% on RA CONSTITUTIONAL: Slightly anxious, in bed, AAO x 3 EYES: PERRLA, EOM intact HENT, MOUTH: Normocephalic, atraumatic, moist mucous membranes, NECK: SUPPLE, no JVD, no lymphadenopathy, no carotid bruit CV: Regular rate and rhythm, S1S2 normal, no murmurs/rubs/gallops CHEST: Right side dialysis catheter RESPIRATORY: Clear to auscultation bilaterally, no rales/rhonchi/wheezes GI: BS positive in 4 quadrants, soft, nontender, nondistended, no rebound or guarding, no organomegaly : Deferred MUSCULOSKELETAL: Normal ROM. No cyanosis, clubbing, swelling, joint deformity, +1 pitting lower extremity edema INTEGUMENTARY: Slight redness of left anterior kidd, not warm to touch. Tenderness of b/l lower ext to touch. Intact, no rashes, no lesions NEUROLOGIC: Cranial Nerves II-XII are intact, no focal deficits PSYCHIATRIC: Mood and affect are normal LABORATORY DATA: Please see below IMAGING: MRI brain: unremarkable CXR: 1. Small bilateral pleural effusions, which were also present on the prior CT scan. 2. Cardiomegaly, which appears larger than on the prior chest x-ray but the apparent difference may be due to the lower lung volumes currently. ASSESSMENT: 74-year-old male with past medical history of end-stage renal disease on hemodialysis, hypertension, CAD status post CABG, diastolic heart failure, persistent atrial fibrillation, GERD, diabetes type 2 admitted for hypertensive urgency, vertigo. PLAN: Chest tightness/pain r/o ACS -Hx CAD s/p CABG -Troponin incr overnight, peaked at 0.18 -? ST changes V2, V3- underlying atrial fibrillation is chronic -Ongoing and becoming more constant anterior chest discomfort- states this is similar to when had prior cardiac event -S/p nitroglycerin SL, nitro patch, started heparin gtt. C/w ASA, statin, BB, morphine PRN -Transferring to [facility] to assess for possible cardiac catheterization. Accepting supervisor tree trimming- Dr. Hilario. Dizziness possibly vertigo 2/2 to hypertensive urgency vs. orthostatic changes vs. evolving cardiac event -BP systolic fluctuating overnight, given several doses of IV hydralazine -BP systolic 150s this AM, dizziness improved some since admission -MRI brain neg -+ orthostatics -Nephrology made aware as patient feels this is similar to when he had "too much fluid" taken off by "water pills" one time. He also says that they have had to decrease the amount of fluid taken off at dialysis recent due to anterior chest discomfort. Hypertensive emergency -Increased troponin overnight, received several doses hydralazine which improved -BP would spike with chest discomfort -Normally has HD TuesThSat -On home meds, hydralazine PRN -Ex Assistant/Program Director (Dr. Ibarra) ESRD on HD TuesThSat -Cr better than normal baseline -Nephrology consulted, to sent to HD in the AM Anemia of chronic disease -H/H stable -Daily CBC Atrial fibrillation, persistent and chronic -Stable and rate controlled -C/w home meds HFpEF, stable and not in exacerbation -C/w home meds, HD DM type II -BS stable -ISS, FS AC/HS, consistent carb diet Hypothyroidism -C/w home synthroid GERD -PPI DVT px -Heparin gtt DISPOSITION: Transferring to [facility] today, Dr. Hilario accepting supervisor tree trimming. TIME SPENT ON DISCHARGE: 65 minutes. Vital Signs/I&Os Vital Signs Date Time Temp Pulse Resp B/P (MAP) Pulse Ox O2 Delivery O2 Flow Rate FiO2 05/11/20 09:48 155/96 05/11/20 08:00 98.0 73 18 100 Room Air I&O- Last 24 Hours up to 6 AM 05/11/20 06:00 Intake Total 300 ml Output Total 100 ml Balance 200 ml Laboratory Data Labs 24H Laboratory Tests 2 05/10/20 16:21: Troponin I 0.15#H 05/10/20 18:08: Bedside Glucose (Misc Panel) 110 05/10/20 20:50: Troponin I 0.17H 05/10/20 21:40: Bedside Glucose (Misc Panel) 148H 05/11/20 00:51: Troponin I 0.18H 05/11/20 04:31: Troponin I 0.16H, Nucleated Red Blood Cells % (auto) 0.0, Anion Gap 8, Glomerular Filtration Rate 16.1L, Calcium Level 8.6L, Total Bilirubin 0.3, Aspartate Amino Transf (AST/SGOT) 11, Alanine Aminotransferase (ALT/SGPT) 29, Alkaline Phosphatase 83, Total Protein 5.9L, Albumin 3.1L, Albumin/Globulin Ratio 1.1 CBC/BMP Laboratory Tests 05/11/20 04:31 FSBS Laboratory Tests Test 05/10/20 18:08 05/10/20 21:40 Range/Units Bedside Glucose (Misc Panel) 110 148 83-110 MG/DL Microbiology Microbiology 05/10/20 Blood Culture - Preliminary, Resulted No growth after 24 hours . All specim... 05/10/20 Blood Culture - Preliminary, Resulted No growth after 24 hours . All specim... Discharge Medications Scheduled Allopurinol (Allopurinol) 100 Mg Tablet, 100 MG PO DAILY, (Reported) Apixaban (Eliquis) 2.5 Mg Tablet, 2.5 MG PO BID, (Reported) Aspirin (Aspirin EC) 81 Mg Tabec, 81 MG PO DAILY, (Reported) Atorvastatin Calcium (Atorvastatin Calcium) 40 Mg Tab, 40 MG PO QHS, (Reported) Calcitriol (Calcitriol) 0.25 Mcg Capsule, 0.25 MCG PO 3XW, (Reported) TUES, THURS, SAT Clonidine (Clonidine) 0.2 Mg Patch.tdwk, 0.2 MG TOP 1XWK, (Reported) CHANGE ON SATURDAYS Gabapentin (Gabapentin) 100 Mg Capsule, 100 MG PO BID, (Reported) Latanoprost (Xalatan) 0.005 % Zena, 1 DROP OU QHS, (Reported) Levothyroxine Sodium (Levothyroxine Sodium) 88 Mcg Tablet, 88 MCG PO DAILY, (Reported) Montelukast Sodium (Montelukast Sodium) 10 Mg Tablet, 10 MG PO DAILY, (Reported) Multivitamins (Thera M Plus Tablet) 1 Tab Tab, 1 TAB PO DAILY, (Reported) Polyethylene Glycol 3350 (Miralax) 119 Gm Powder, 17 GM PO DAILY, (Reported) Torsemide (Torsemide) 100 Mg Tablet, 50 MG PO BID, (Reported) 0900, 1700 Valsartan (Valsartan) 160 Mg Tablet, 160 MG PO DAILY, (Reported) Scheduled PRN Alprazolam (Alprazolam) 0.5 Mg Tablet, 0.5 MG PO DAILY PRN for ANXIETY, (Reported) Lidocaine (Lidoderm) 5 % Dis, 1 PATCH TD DAILY PRN for PAIN, (Reported) APPLY TO LOWER BACK 12H ON 12H OFF Nitroglycerin (Nitrostat) 0.4 Mg Tab.subl, 0.4 MG SL NITRO PRN for CHEST PAIN, (Reported) Pantoprazole Sodium (Pantoprazole Sodium) 40 Mg Tablet.dr, 40 MG PO DAILY PRN for HEARTBURN, (Reported) Allergies Coded Allergies: Penicillins (Verified Allergy, Mild, rash/itching, 03/29/20) Tetracyclines (Verified Allergy, Mild, ITCHING, 03/29/20) Sulfa (Sulfonamide Antibiotics) (Unverified Allergy, Unknown, unknown, 03/29/20) erythromycin base (Unverified Allergy, Unknown, unknown, 03/29/20) minoxidil (Verified Adverse Reaction, Intermediate, ANASARCA, 05/10/20) Contrast Media (Verified Adverse Reaction, Mild, MADE LEG TURN RED, 11/03/19) amlodipine (Verified Adverse Reaction, Mild, FLUID RETENTION, 11/03/19) carvedilol (Verified Adverse Reaction, Mild, FLUID RETENTION, 11/03/19) hydralazine (Verified Adverse Reaction, Mild, FLUID RETENTION, 05/10/20) cephalexin (Unverified Adverse Reaction, Unknown, FLUID RETENTION, 05/10/20) Matilda Farris MD May 11, 2020 14:14
--- NOTE | 2020-05-11 20:32 | ECGEPIP ---
[facility] Test Date: 2020-05-11 Pat Name: JEANNA LYLE Department: Room: [place] [address] Gender: Male Chart Collector: cornel : 1945 Requested By: Matilda Gonzalez Order Number: [id number] Reading MD: Jason Johnson Measurements Intervals [place] Rate: 77 P: [place]: QRS: 55 QRSD: 86 T: 125 QT: 408 QTc: 461 Interpretive Statements Critical Test Result: STEMI Atrial fibrillation Anteroseptal infarct , possibly acute ACUTE PR / STEMI Anteroseptal ST elevation more prominent compared with 05/10/2020 at 2132 hrs. Electronically Signed on 05-11-2020 20:32:12 EST by Jason Johnson
--- NOTE | 2020-05-11 20:35 | ECGEPIP ---
[facility] Test Date: 2020-05-11 Pat Name: JEANNA LYLE Department: Room: [place] [address] Gender: Male [place] Calciner: cornel : 1945 Requested By: Matilda Gonzalez Order Number: [id number] Reading MD: Jason Johnson Measurements Intervals [place] Rate: 89 P: [place]: QRS: 51 QRSD: 94 T: 215 QT: 384 QTc: 467 Interpretive Statements Atrial fibrillation with premature ventricular or aberrantly conducted complexes Septal infarct , age undetermined, Possibly acute. Less ST elevation (anteroseptal) and PVC new compared with 05/11/2020 at 850 hours. Electronically Signed on 05-11-2020 20:34:44 EST by Jason Johnson
[2020-05-11] MEDS ORDERED: **NOTE PATIENT COMMENT** MISC XX SCH (21:00)
--- NOTE | 2020-05-13 10:26 | CR ---
CONSULTATION DATE: 05/11/2020 REQUESTING PHYSICIAN: Matilda Farris MD CONSULTING PHYSICIAN: Natasha Wilson DO REASON FOR CONSULTATION: Management of end-stage renal disease on hemodialysis. CHIEF COMPLAINT: Dizziness. HISTORY OF PRESENT ILLNESS: Mr. Willson is well known to me from prior hospitalizations and from the dialysis unit. He is a 74-year-old male with a past medical history of end-stage renal disease on hemodialysis on Wednesday, , Wednesday schedule, chronic hypertension, CAD, status post CABG, diastolic congestive heart failure, atrial fibrillation, a history of nephrectomy for renal cancer and other comorbid conditions mentioned below. The patient presented to [facility] on May 10 with complaint of dizziness and presyncopal sensation which occurred at midnight when he awoke to use the bathroom and he subsequently pressed his Life Alert button. He also tells me that for his past three outpatient hemodialysis treatments, on the last 20 minutes of each treatment, he has experienced a sudden feeling of chest tightness and discomfort which was relieved each time after the dialysis nurse gave him fluids and returned his blood back and did the dialysis treatment and he has been concerned about this chest tightness and overnight in the hospital, he notes recurrent episodes of chest pain for which he was given sublingual nitrogen and the patient has had serial troponins which show a mild rise and he is due for dialysis this afternoon. PAST MEDICAL HISTORY: 1. End-stage renal disease on hemodialysis, Wednesday, , Wednesday. 2. Nephrectomy for renal cancer with solitary kidney. 3. Hypertension. 4. CAD, status post CABG. 5. Chronic diastolic congestive heart failure. 6. Atrial fibrillation. 7. Hypothyroidism. 8. Cervical spinal stenosis. 9. GERD. 10. Type 2 diabetes. 11. Basal cell cancer with excisional biopsy. 12. Gout. 13. Anxiety. 14. Diverticular disease of the large colon. 15. Prior GI bleed and hemorrhoids. 16. Peripheral neuropathy. 17. Peripheral vascular disease. 18. History of cellulitis. 19. History of cataracts. 20. History of colonic polyp. 21. Secondary hyperparathyroidism of renal origin. 22. Anemia of chronic renal failure. 23. Anxiety. PAST SURGICAL HISTORY: 1. CABG. 2. Left nephrectomy. 3. Cataract extraction. 4. Colonic polypectomy. 5. History of coronary stents. 6. Cardiac ablation. FAMILY HISTORY: Noncontributory. SOCIAL HISTORY: He is retired. He denies alcohol, drugs or tobacco. ALLERGIES: CONTRAST MEDIA, PENICILLIN, SULFA, TETRACYCLINE, AMLODIPINE, CARVEDILOL, CEPHALEXIN. FOR REMAINDER OF ALLERGIES, PLEASE SEE ELECTRONIC MEDICAL RECORD. HOME MEDICATIONS: Reviewed. REVIEW OF SYSTEMS: Constitutional: He denies fevers or chills. Eyes: He denies visual changes or tearing. ENT: He denies epistaxis or rhinorrhea. Cardiac: He reports chest tightness and chest pain especially during the tail-end of his dialysis treatments. He reports leg swelling and a history of coronary artery disease and congestive heart failure. Respiratory: He denies shortness of breath or cough. Gastrointestinal: He denies nausea, vomiting or diarrhea. Endocrine: He reports diabetes and secondary hyperparathyroidism. Hematologic: He reports anemia of chronic renal failure and chronic anticoagulant use. Musculoskeletal: He reports leg swelling. He denies any acute arthralgias. Neurologic: He reports presyncopal episode but he denies syncope or seizure. Psychiatric: He reports anxiety. He denies depression. Remainder of review of systems is negative or as per HPI. PHYSICAL EXAMINATION: Vital signs: Temperature 98.0, pulse 73, respiratory rate 18, blood pressure 187/78, saturating 100% on room air. Intake yesterday was 300. General: Patient is seen lying in bed, awake, alert, oriented in no apparent distress. Extraocular muscles are intact. Tongue is moist. Neck is supple. Jugular veins are mildly elevated. There is no carotid bruit. Heart sounds are regular, S1, S2. There is 1+ leg edema bilaterally. Lungs are clear to auscultation bilaterally. There is no crackle or rales. He has a tunneled Permacath for dialysis. Abdomen: Soft and nontender. There are bowel sounds. Extremities: He moves all four extremities on command. He has chronic 1+ leg edema. Neurologic: He is oriented x3, interactive and conversational. Psychiatric: He is anxious. LABS: White count 4.5, hemoglobin 10.0, platelets 154. Sodium 142, potassium 3.9, BUN 61, troponin 0.16. Blood cultures show no growth for 24 hours x2 sets. Chest x-ray on May 10 shows small bilateral pleural effusions and cardiomegaly. INPATIENT MEDICATIONS: Reviewed by myself. 1. Tylenol p.r.n. 2. Allopurinol 100 mg p.o. daily. 3. Xanax p.r.n. 4. Eliquis 2.5 mg p.o. b.i.d. 5. Aspirin 81 mg p.o. daily. 6. Lipitor 40 mg p.o. q.h.s. 7. Clonidine patch. 8. Gabapentin 100 mg p.o. b.i.d. 9. Hydralazine 10 mg IV q.6 hourly p.r.n. 10. Insulin. 11. Synthroid 88 mcg p.o. daily. 12. Montelukast 10 mg p.o. daily. 13. Multivitamin one tab p.o. daily. 14. Nitroglycerin sublingual p.r.n. 15. Protonix 40 mg p.o. daily. 16. Polyethylene glycol one packet p.o. daily. 17. Torsemide 50 mg p.o. b.i.d. 18. Valsartan 160 mg p.o. daily. PROBLEMS: 1. End-stage renal disease on hemodialysis on a Wednesday, , Wednesday schedule. The patient mild fluid overload. He has small bilateral pleural effusions. He has not been able to reach his dry weight on his last three outpatient hemodialysis treatments because he has developed chest tightness towards the tail end of his treatments and it is relieved by the dialysis nurse giving him fluid and stopping his treatment early. He has now had troponin increases and some questionable ST segment changes and primary team has discussed with his stem sizer and the patient is going to be transferred to [place] for possible cardiac catheterization and dialysis will need to be arranged there as well. 2. Hypertensive emergency. The patient's home medications have been resumed and he is also receiving hydralazine p.r.n. He is also on mild fluid overload and dialysis will help with control of his blood pressure. 3. Anemia of chronic renal failure. Hemoglobin is stable and at goal. 4. Chest tightness/chest pain. As mentioned above, the patient had troponin monitoring and serial EKGs and it was discussed between the hospitalists and cardiology service regarding his ST segment changes and the patient is being transferred to [facility] for possible cardiac catheterization.
== END 2020-05-11 14:15 | disposition short-term general hospital (02) | DRG 304 ==
LOC: M ED 03:54 → OBSVTOIN 03:55 → M ED INP 03:55 → M PCU 17:51
PROVIDERS: ADMIT Internal Medicine; ATTEND Internal Medicine
DX: I16.1 Hypertensive emergency (principal); N18.6 End stage renal disease; I48.19 Other persistent atrial fibrillation; I50.32 Chronic diastolic (congestive) heart failure; I24.9 Acute ischemic heart disease, unspecified; N25.81 Secondary hyperparathyroidism of renal origin; I13.0 Hypertensive heart and chronic kidney disease with heart failure and stage 1 through stage 4 chronic kidney disease, or unspecified chronic kidney disease; I25.10 Atherosclerotic heart disease of native coronary artery without angina pectoris; K21.9 Gastro-esophageal reflux disease without esophagitis; E11.42 Type 2 diabetes mellitus with diabetic polyneuropathy; K57.30 Diverticulosis of large intestine without perforation or abscess without bleeding; I73.9 Peripheral vascular disease, unspecified; E11.51 Type 2 diabetes mellitus with diabetic peripheral angiopathy without gangrene; H40.9 Unspecified glaucoma; D63.1 Anemia in chronic kidney disease; E03.9 Hypothyroidism, unspecified; M10.9 Gout, unspecified; F41.9 Anxiety disorder, unspecified; R07.89 Other chest pain; Z79.899 Other long term (current) drug therapy; Z91.041 Radiographic dye allergy status; Z88.1 Allergy status to other antibiotic agents; Z88.0 Allergy status to penicillin; Z99.2 Dependence on renal dialysis; Z95.5 Presence of coronary angioplasty implant and graft; Z90.5 Acquired absence of kidney; Z85.528 Personal history of other malignant neoplasm of kidney; Z85.828 Personal history of other malignant neoplasm of skin; Z98.49 Cataract extraction status, unspecified eye; Z86.010 Personal history of colon polyps; Z20.822 Contact with and (suspected) exposure to COVID-19; Z79.01 Long term (current) use of anticoagulants; Z88.2 Allergy status to sulfonamides; Z79.82 Long term (current) use of aspirin

== ENCOUNTER 2020-06-09 16:25 | Emergency (ER) | payer MEDICARE ==
[~2020-06-09] VITALS: Ht 185.4 cm; Wt 74.3 kg
[~2020-06-09 16:25] MED LIST changes: +ASPI-569 PO; -ASPI81TAEC PO; +CLON0.2D6 TOP; +MONT10TA10 PO; -PEG1POW PO; +POLY17PO18 PO
[2020-06-09] MEDS ORDERED: FAMO20TA5 (16:42)
[2020-06-09] MEDS ORDERED: CLOP75TA2 (16:42)
[2020-06-09] MEDS ORDERED: TAMS1CAP17 (16:42)
[2020-06-09 17:58] LABS: BASO % 1.1 % (0.0-1.0); EOS # 0.1 10^3/uL (0.0-0.5); EOS % 2.8 % (0.0-3.0); HEMATOCRIT 31.2 % (42.0-52.0); HEMOGLOBIN 9.8 g/dl (13.5-17.5); LYMPH # 0.6 10^3/uL (1.5-5.0); LYMPH % 15.5 % (24.0-44.0); MEAN CORPUSCULAR HEMOGLOBIN 31.6 pg (27.0-33.0); MEAN CORPUSCULAR HGB CONC 31.4 g/dl (32.0-36.5); MEAN CORPUSCULAR VOLUME 100.6 fl (80.0-96.0); MONO # 0.4 10^3/uL (0.0-0.8); MONO % 12.1 % (2.0-8.0); NEUTROPHILS # 2.4 10^3/uL (1.5-8.5); NEUTROPHILS % 67.9 % (36.0-66.0); PLATELET COUNT, AUTOMATED 133 10^3/uL (150-450); WHITE BLOOD COUNT 3.6 10^3/uL (4.0-10.0)
[2020-06-09 18:08] LABS: INR 1.32; PROTHROMBIN TIME 16.6 SECONDS (12.5-14.3)
[2020-06-09 18:31] LABS: ALBUMIN 3.4 GM/DL (3.2-5.2); BILIRUBIN,DIRECT 0.1 MG/DL (0.0-0.2); BILIRUBIN,TOTAL 0.4 MG/DL (0.2-1.0); CREATININE FOR GFR 3.88 MG/DL (0.70-1.30); GLOMERULAR FILTRATION RATE 16.1 (>42); TOTAL PROTEIN 6.7 GM/DL (6.4-8.2)
--- NOTE | 2020-06-09 18:33 | REPVR ---
PROCEDURE INFORMATION: Exam: US Duplex Left Lower Extremity Veins, Limited Exam date and time: 06/09/2020 6:09 PM Age: 75 years old Clinical indication: Pain; Leg, lower; Left; Additional info: Swelling pain TECHNIQUE: Imaging protocol: Real-time Duplex ultrasound of the Left Lower Extremity with 2-D paz scale, color Doppler flow and spectral waveform analysis with image documentation. Limited exam focused on the left lower extremity veins. COMPARISON: US Duplex, Ext LOWER veins, bilat 04/24/2020 11:45 AM FINDINGS: Left deep veins: Unremarkable. The common femoral, proximal profunda femoral, femoral and popliteal veins are patent without thrombus. Normal compressibility, augmentation response and Doppler waveforms. Left superficial veins: Unremarkable. Saphenofemoral junction is patent without thrombus. Soft tissues: Subcutaneous edema about the lower leg. IMPRESSION: No sonographic evidence of deep vein thrombosis. Electronically signed by: Sebastian Rahman On 06/09/2020 18:33:34 PM
--- NOTE | 2020-06-09 18:35 | REPVR ---
PROCEDURE INFORMATION: Exam: US Pelvis Limited, Bladder Exam date and time: 06/09/2020 6:09 PM Age: 75 years old Clinical indication: Pelvic pain; Additional info: Distension, firm bladder TECHNIQUE: Imaging protocol: Real-time pelvic ultrasound with image documentation. COMPARISON: CT ABD/PEL W/IV ORAL CONTRAS 10/13/2019 3:58 PM FINDINGS: Urinary bladder: Mild circumferential urinary bladder wall thickening and trabeculation, possibly secondary to underdistention and/or chronic bladder outlet obstruction. Prostate: Mildly enlarged. IMPRESSION: 1. Mildly enlarged prostate. Correlate with clinical exam and PSA levels. 2. Mild circumferential urinary bladder wall thickening and trabeculation, possibly secondary to underdistention and/or chronic bladder outlet obstruction. Correlate with urinalysis. Electronically signed by: Sebastian Rahman On 06/09/2020 18:35:42 PM
[2020-06-09 19:44] VITALS: BP 156/94
== END 2020-06-09 19:46 | disposition home or self-care (01) ==
LOC: M ED 16:25
DX: R33.9 Retention of urine, unspecified (principal); N40.1 Benign prostatic hyperplasia with lower urinary tract symptoms; N18.6 End stage renal disease; L03.116 Cellulitis of left lower limb; I11.0 Hypertensive heart disease with heart failure; E11.9 Type 2 diabetes mellitus without complications; I50.9 Heart failure, unspecified; J45.909 Unspecified asthma, uncomplicated; E78.5 Hyperlipidemia, unspecified; G62.9 Polyneuropathy, unspecified; E03.9 Hypothyroidism, unspecified; K21.9 Gastro-esophageal reflux disease without esophagitis; Z86.73 Personal history of transient ischemic attack (TIA), and cerebral infarction without residual deficits; Z79.899 Other long term (current) drug therapy; Z79.890 Hormone replacement therapy; Z79.01 Long term (current) use of anticoagulants; Z88.0 Allergy status to penicillin; Z88.1 Allergy status to other antibiotic agents; Z88.2 Allergy status to sulfonamides; Z88.8 Allergy status to other drugs, medicaments and biological substances; Z91.041 Radiographic dye allergy status

== ENCOUNTER 2020-06-17 17:45 | Inpatient (IN) | payer MEDICARE ==
[~2020-06-17] VITALS: Ht 185.4 cm; Wt 74.0 kg
[~2020-06-17 17:45] MED LIST changes: +CLOP75TA2 PO; +FAMO20TA5 PO; +TAMS1CAP17 PO
[2020-06-17] MEDS: DOCUSATE SODIUM 100MG CAPSULE PO SCH (21:00)
[2020-06-17 21:09] LABS: INR 1.26
[2020-06-17 21:10] LABS: PARTIAL THROMBOPLASTIN TIME 33.7 SECONDS (24.2-38.5)
[2020-06-17 21:28] LABS: ALBUMIN 3.8 GM/DL (3.2-5.2); BILIRUBIN,DIRECT 0.2 MG/DL (0.0-0.2); BILIRUBIN,TOTAL 0.5 MG/DL (0.2-1.0); C REACTIVE PROTEIN QUANTITATIV 0.3 MG/DL (0.00-0.30); CALCIUM LEVEL 8.7 MG/DL (8.8-10.2); CREATININE FOR GFR 4.89 MG/DL (0.70-1.30); GLOMERULAR FILTRATION RATE 12.4 (>42); POTASSIUM SERUM 4.2 MEQ/L (3.5-5.1); TOTAL PROTEIN 7.1 GM/DL (6.4-8.2)
--- NOTE | 2020-06-17 21:36 | REPVR ---
PROCEDURE INFORMATION: Exam: US Duplex Left Lower Extremity Veins, Limited Exam date and time: 06/17/2020 8:36 PM Age: 75 years old Clinical indication: Pain; Leg, lower; Left; Additional info: R/O dvt TECHNIQUE: Imaging protocol: Real-time Duplex ultrasound of the Left Lower Extremity with 2-D paz scale, color Doppler flow and spectral waveform analysis with image documentation. Limited exam focused on the left lower extremity veins. COMPARISON: US Duplex, Ext,LOWER veins,unilat LEFT 06/09/2020 5:58 PM FINDINGS: Left deep veins: Unremarkable. The common femoral, femoral, proximal profunda femoral and popliteal veins are patent without thrombus. Normal Doppler waveforms. Normal compressibility and/or augmentation response. Left superficial veins: Unremarkable. Saphenofemoral junction is patent without thrombus. Soft tissues: There is a subcutaneous lesion labeled anterior just below knee. It has a hypoechoic rim and a hyperechoic core and could represent an enlarged lymph node or other complex lesion such as proteinaceous fluid in an abscess or small cystic and solid lesion. It measures 2.6 x 1.6 x 0.7 cm. No blood flow is detected in the lesion. IMPRESSION: No evidence of deep vein thrombosis. There is a subcutaneous lesion anteriorly left lower extremity just below the level of the knee as described above. Electronically signed by: Cassy Epstein On 06/17/2020 21:36:38 PM
[2020-06-17 21:38] LABS: BASO % 0.7 % (0.0-1.0); EOS # 0.1 10^3/uL (0.0-0.5); EOS % 2.2 % (0.0-3.0); HEMATOCRIT 36.6 % (42.0-52.0); HEMOGLOBIN 11.3 g/dl (13.5-17.5); LYMPH # 0.7 10^3/uL (1.5-5.0); LYMPH % 15.6 % (24.0-44.0); MEAN CORPUSCULAR HEMOGLOBIN 31.5 pg (27.0-33.0); MEAN CORPUSCULAR HGB CONC 30.9 g/dl (32.0-36.5); MEAN CORPUSCULAR VOLUME 101.9 fl (80.0-96.0); MONO # 0.5 10^3/uL (0.0-0.8); MONO % 12.7 % (2.0-8.0); NEUTROPHILS # 2.9 10^3/uL (1.5-8.5); NEUTROPHILS % 68.3 % (36.0-66.0); PLATELET COUNT, AUTOMATED 123 10^3/uL (150-450); RED BLOOD COUNT 3.59 10^6/uL (4.30-6.10); WHITE BLOOD COUNT 4.2 10^3/uL (4.0-10.0)
[2020-06-17] MEDS ORDERED: MORPHINE 4 MG/ML 1ML VIAL/SYRINGE (J2270) IV ONE (22:10)
[2020-06-17] MEDS ORDERED: CLINDAMYCIN 900 MG in IV 1 EA IV ONE (22:10)
[2020-06-17] MEDS: NS 1,000 ML IV SCH (22:41)
[2020-06-17] MEDS ORDERED: MOM 30ML SUSPENSION UDC PO PRN (23:35)
[2020-06-18] MEDS ORDERED: VANCOMYCIN HCL 500 MG in D5W MINI-BAG PLUS 100 ML IV ONE (00:05)
[2020-06-18 00:11] LABS: RSV AMPLIFICATION NEGATIVE (NEGATIVE)
--- NOTE | 2020-06-18 00:21 | REPVR ---
PROCEDURE INFORMATION: Exam: CT Left Lower Extremity Without Contrast Exam date and time: 06/17/2020 11:33 PM Age: 75 years old Clinical indication: Cellulitis; Lower leg; Left; Additional info: Possible tibial abscess TECHNIQUE: Imaging protocol: CT of the Left lower extremity without contrast was performed. Radiation optimization: All CT scans at this facility use at least one of these dose optimization techniques: automated exposure control; mA and/or kV adjustment per patient size (includes targeted exams where dose is matched to clinical indication); or iterative reconstruction. COMPARISON: US BILAT LOWER EXTREM ARTERIAL 02/14/2020 1:36 PM FINDINGS: Bones/joints: There is no acute fracture, dislocation, or bony destructive changes involving the left knee, left tibia, or left fibula. There is tricompartmental osteoarthritis of the left knee, with degenerative changes that are most severe in the medial compartment. Tricompartmental chondrocalcinosis is also present in the left knee. There is a moderate left knee joint effusion. There are well corticated ossicles inferior to the left medial malleolus, which may represent the sequela of an old avulsion injury. Soft tissues: There are surgical clips in the soft tissues along the posteromedial aspect of the left knee. There is soft tissue swelling, edema in the subcutaneous tissues, and thickening of the skin in the left knee and left calf. No drainable soft tissue fluid collection is noted. There is no fluid in the intermuscular fascial planes, thickening of the deep fascial planes, or gas in the soft tissues to suggest necrotizing fasciitis. No left popliteal cyst is present. There is a spur arising from the superior pole of the patella at the insertion of the left quadriceps tendon, which is compatible with a left quadriceps enthesopathy. There is a spur arising from the inferior pole of the left patella at the origin of the patellar tendon, which is compatible with a left patellar tendon enthesopathy. There is a posterior calcaneal spur at the insertion of the Achilles tendon, which is compatible with a left Achilles enthesopathy. Vasculature: There are extensive atherosclerotic calcifications. IMPRESSION: 1. No CT evidence for an abscess, necrotizing fasciitis, or osteomyelitis in the left knee or left calf. 2. Soft tissue swelling, edema in the subcutaneous tissues, and thickening of the skin in the left knee and left calf, which is compatible with cellulitis. 3. Tricompartmental osteoarthritis and chondrocalcinosis involving the left knee and a moderate left knee joint effusion. Electronically signed by: David Flores On 06/18/2020 00:21:35 AM
--- NOTE | 2020-06-18 00:35 | HPEPDOC ---
[facility] Medical History & Physical Date of Admission Jun 18, 2020 Date of Service: Jun 18, 2020 Attending Physician: SAVAGE ERICKSON MD History and Physical CHIEF COMPLAINT: [75 year old white male complaining of erythema and pain of the left lower extremity x6 days.] HISTORY OF PRESENT ILLNESS: [This is a 75 year old male with a pmh of ESRD on dialysis, CAD s/p CABG, NIDDM, TIA, CHF who presents to the ED today with worsening erythema of the leg, pain in the leg, and a "bump" which he feels is a blood clot. Patient states that the pain began approx 6 days ago when he was in the store he felt a sensation of being stung in his leg. When he went home that day he first felt the bump. Since then, he has had increasing erythema of the area and increasing pain. Patient states that he came to the ED today because the pain has acutely increased, and has made it so that he has a hard time putti ng weight on the extremity and cannot ambulate without assistance. This is not his baseline. Patient also states that he has some mild nausea and is worried that he is very ill with his symptoms. Patient denies chest pain, SOB, vomiting, back pain, constipation, diarrhea, fevers, chills. Patient started on clindamycin in the ED for infection.] PAST MEDICAL HISTORY: 1. See HPI PAST SURGICAL HISTORY: 1. [CABG]. 2. [Left AV fistula]. 3. [Cholecystectomy 4. Nephrectomy 5. Appendectomy]. SOCIAL HISTORY: Resides in: [Home, alone] Tobacco use:[Denies] ETOH: [Denies] Illicit drug use: [Denies] ALLERGIES: Please see below. REVIEW OF SYSTEMS: CONSTITUTIONAL: [See HPI]. HEENT: [Denies URI sx]. CARDIOVASCULAR: [See HPI]. RESPIRATORY: [See HPI]. GASTROINTESTINAL: [See HPI]. GENITOURINARY: [Denies dysuria]. SKIN: [See HPI]. MUSCULOSKELETAL: [See HPI]. NEUROLOGICAL: [Denies paresthesias]. HOME MEDICATIONS: Please see below. PHYSICAL EXAMINATION: VITAL SIGNS: See Below GENERAL APPEARANCE: [This is a 75 year old male resting comfortably in bed. Patient in no acute distress]. HEENT: [No mass or lesion. No scleral icterus or conjunctival erythema. Nares patent. Oral mucosa moist ]. CARDIOVASCULAR: [Regular rate, rhythm. No murmurs, rubs or gallops]. LUNGS: [Good air flow. No wheezing, rales, rhonchil.]. ABDOMEN: [Soft, non-tender. No tenderness]. MUSCULOSKELETAL: [No joint deformity]. EXTREMITIES: [There is a large area or erythema located on the distal LE. The most superior edge of the erythema contains an area of edema that is exquisitely tender to palpation. This area is firm and non-fluctuant. No drainage or vesicles noted. Patients left foot appears to be desquamating on the plantar surface. No drainage noted here.]. NEUROLOGICAL: [Speech clear. A+Ox3. No focal deficits]. PSYCHIATRIC: [Mood and affect appear appropriate]. LABORATORY DATA: See below. IMAGING: [Vascular US: FINDINGS: Left deep veins: Unremarkable. The common femoral, femoral, proximal profunda femoral and popliteal veins are patent without thrombus. Normal Doppler waveforms. Normal compressibility and/or augmentation response. Left superficial veins: Unremarkable. Saphenofemoral junction is patent without thrombus. Soft tissues: There is a subcutaneous lesion labeled anterior just below knee. It has a hypoechoic rim and a hyperechoic core and could represent an enlarged lymph node or other complex lesion such as proteinaceous fluid in an abscess or small cystic and solid lesion. It measures 2.6 x 1.6 x 0.7 cm. No blood flow is detected in the lesion. IMPRESSION: No evidence of deep vein thrombosis. There is a subcutaneous lesion anteriorly left lower extremity just below the level of the knee as described above. Extremity CT: FINDINGS: Bones/joints: There is no acute fracture, dislocation, or bony destructive changes involving the left knee, left tibia, or left fibula. There is tricompartmental osteoarthritis of the left knee, with degenerative changes that are most severe in the medial compartment. Tricompartmental chondrocalcinosis is also present in the left knee. There is a moderate left knee joint effusion. There are well corticated ossicles inferior to the left medial malleolus, which may represent the sequela of an old avulsion injury. Soft tissues: There are surgical clips in the soft tissues along the posteromedial aspect of the left knee. There is soft tissue swelling, edema in the subcutaneous tissues, and thickening of the skin in the left knee and left calf. No drainable soft tissue fluid collection is noted. There is no fluid in the intermuscular fascial planes, thickening of the deep fascial planes, or gas in the soft tissues to suggest necrotizing fasciitis. No left popliteal cyst is present. There is a spur arising from the superior pole of the patella at the insertion of the left quadriceps tendon, which is compatible with a left quadriceps enthesopathy. There is a spur arising from the inferior pole of the left patella at the origin of the patellar tendon, which is compatible with a left patellar tendon enthesopathy. There is a posterior calcaneal spur at the insertion of the Achilles tendon, which is compatible with a left Achilles enthesopathy. Vasculature: There are extensive atherosclerotic calcifications. IMPRESSION: 1. No CT evidence for an abscess, necrotizing fasciitis, or osteomyelitis in the left knee or left calf. 2. Soft tissue swelling, edema in the subcutaneous tissues, and thickening of the skin in the left knee and left calf, which is compatible with cellulitis. 3. Tricompartmental osteoarthritis and chondrocalcinosis involving the left knee and a moderate left knee joint effusion. ] MICROBIOLOGY: Please see below. ASSESSMENT: [This is a 75 year old male who presents to the ED with complaints of lower extremity pain, erythema and localized edema. Patient was acutely concerned for a blood clot, so decided to come in for evaluation. Patient was noted to have acute cellulitis and an US which showed possible abscess, started on clindamycin the ED. Patient's main concern is that he is having difficulty walking due to his current pain level, which seems out of proportion to what you would expect to see in cellulitis/abscess. Of note, patient does live alone.]. . PLAN: 1. [LLE Cellulitis - Vascular US showed evidence of hypoechoic structure abscess vs. swollen lymph node. Follow up CT of the area showed no drainable lesion. It seems more likely at this time that the lump on patients leg near his cellulitis may be a swollen lymph node. - Patient started on clindamycin, we will switch to vanco for better soft tissue coverage - Will monitor erythema and symptoms, can consider switching to oral abx if erythema improves - Patient complaining of a lot of pain, morphine given in er - continue morphine 2mg q6h - Patient current has no white count, tachycardia, fever or other sirs criteria. Suspicion of sepsis or bacteremia is very low at this time. 2. ESRD - Patient on dialysis - Cr appears to elevated from baseline. Patient given small amount of fluids in ED. - Day team should consult nephrology for continuation of dialysis if it is determined patient needs to stay inpatient for more IV abx 3. NIDDM - Stable, monitor glucose 4. HTN - continue at home valsartan, torsemide, clonidine patch 5. CAD - continue nitro 6. CHF - fluid status looks good. monitor - continue torsemide as stated 7. TIA - continue plavix, asa 8. Hx a-fib - continue eliquis 9. Dyslipidemia - continue atorvastatin 10. Anxiety - continue xanax prn 11. Hypothyroidism - continue levothyroxine 12. GERD - continue pepcid 13. Gout - continue allopurinol 14. BPH - Continue flomax 15. DVT - continue antiplatelets and anticoagulation as stated ]. Vital Signs Vital Signs Date Time Temp Pulse Resp B/P (MAP) Pulse Ox O2 Delivery O2 Flow Rate FiO2 06/17/20 22:38 18 06/17/20 22:07 06/17/20 17:45 97.2 78 97 Room Air Laboratory Data Labs 24H Laboratory Tests 2 06/17/20 20:43: Immature Granulocyte % (Auto) 0.5, Neutrophils (%) (Auto) 68.3H, Lymphocytes (%) (Auto) 15.6L, Monocytes (%) (Auto) 12.7H, Eosinophils (%) (Auto) 2.2, Basophils (%) (Auto) 0.7, Neutrophils # (Auto) 2.9, Lymphocytes # (Auto) 0.7L, Monocytes # (Auto) 0.5, Eosinophils # (Auto) 0.1, Basophils # (Auto) 0.0, Nucleated Red Bl ood Cells % (auto) 0.0 06/17/20 20:44: Erythrocyte Sedimentation Rate 14, Prothrombin Time 16.0H, Prothromb Time International Ratio 1.26, Activated Partial Thromboplast Time 33.7, Anion Gap 9, Glomerular Filtration Rate 12.4L, Lactic Acid Level 1.3, Calcium Level 8.7L, Total Bilirubin 0.5, Direct Bilirubin 0.2, Aspartate Amino Transf (AST/SGOT) 15, Alanine Aminotransferase (ALT/SGPT) 36, Alkaline Phosphatase 130H, C-Reactive Protein, Quantitative 0.30, Total Protein 7.1, Albumin 3.8, Albumin/Globulin Ratio 1.2 06/17/20 23:26: CBC/BMP Laboratory Tests 06/17/20 20:43 06/17/20 20:44 Microbiology Microbiology 06/17/20 Blood Culture, Received Pending 06/17/20 Blood Culture, Received Pending Home Medications Scheduled Allopurinol (Allopurinol) 100 Mg Tablet, 100 MG PO DAILY Apixaban (Eliquis) 2.5 Mg Tablet, 2.5 MG PO BID Atorvastatin Calcium (Atorvastatin Calcium) 40 Mg Tab, 40 MG PO QHS Calcitriol (Calcitriol) 0.25 Mcg Capsule, 0.25 MCG PO 3XW TUES, THURS, SAT Clonidine (Clonidine) 0.2 Mg Patch.tdwk, 0.2 MG TOP 1XWK CHANGE ON SATURDAYS Clopidogrel Bisulfate (Clopidogrel) 75 Mg Tablet, 75 MG PO DAILY TAKES AT NOON Famotidine (Famotidine) 20 Mg Tablet, 20 MG PO DAILY Levothyroxine Sodium (Levothyroxine Sodium) 88 Mcg Tablet, 88 MCG PO DAILY Multivitamins (Thera M Plus Tablet) 1 Tab Tab, 1 TAB PO DAILY Pantoprazole Sodium (Pantoprazole Sodium) 40 Mg Tablet.dr, 40 MG PO DAILY Tamsulosin Hcl (Tamsulosin HCl) 0.4 Mg Capsule, 0.4 G PO DAILY Torsemide (Torsemide) 100 Mg Tablet, 50 MG PO BID 0900, 1700 Valsartan (Valsartan) 160 Mg Tablet, 160 MG PO DAILY Scheduled PRN Alprazolam (Alprazolam) 0.5 Mg Tablet, 0.5 MG PO DAILY PRN for ANXIETY Lidocaine (Lidoderm) 5 % Dis, 1 PATCH TD DAILY PRN for PAIN APPLY TO LOWER BACK 12H ON 12H OFF Nitroglycerin (Nitrostat) 0.4 Mg Tab.subl, 0.4 MG SL NITRO PRN for CHEST PAIN Allergies Coded Allergies: Penicillins (Verified Allergy, Mild, rash/itching, 06/17/20) Tetracyclines (Verified Allergy, Mild, ITCHING, 06/17/20) Sulfa (Sulfonamide Antibiotics) (Unverified Allergy, Unknown, unknown, 06/17/20) erythromycin base (Unverified Allergy, Unknown, unknown, 06/17/20) minoxidil (Verified Adverse Reaction, Intermediate, ANASARCA, 06/17/20) Contrast Media (Verified Adverse Reaction, Mild, MADE LEG TURN RED, 06/17/20) amlodipine (Verified Adverse Reaction, Mild, FLUID RETENTION, 06/17/20) carvedilol (Verified Adverse Reaction, Mild, FLUID RETENTION, 06/17/20) hydralazine (Verified Adverse Reaction, Mild, FLUID RETENTION, 06/17/20) cephalexin (Unverified Adverse Reaction, Unknown, FLUID RETENTION, 06/17/20) A-FIB/CHADSVASC A-FIB History Current/History of A-Fib/PAF?: Yes Current PO Anticoag Therapy: Yes BRIAN HAMILTON Jun 18, 2020 00:35 SAVAGE ERICKSON MD Jun 20, 2020 13:50
[2020-06-18] MEDS: RAMELTEON 8 MG TAB (ROZEREM) PO PRN (02:09)
[2020-06-18] MEDS: NS 1,000 ML IV SCH (02:10)
[2020-06-18] MEDS: ACETAMINOPHEN TAB 650MG DOSE (2X325MG) PO PRN (02:24)
[2020-06-18] MEDS ORDERED: VANCOMYCIN INTERMITTENT/PULSE DOSING BY CLINICAL PHARMACIST PER DOSING PROTOCOL XX SCH (02:35)
[2020-06-18 02:50] VITALS: BP 149/86
[2020-06-18] MEDS ORDERED: NITROGLYCERIN 0.4 MG SUBL TABLET SL PRN (03:30)
[2020-06-18] MEDS ORDERED: ALPRAZolam 0.5 MG TAB PO PRN (03:30)
[2020-06-18] MEDS ORDERED: VANCOMYCIN HCL 1,000 MG, VIAL MATE ADAPTER 1 EACH in NS 250 ML IV ONE ×2 (03:30→08:00)
[2020-06-18 04:40] VITALS: O2SAT 96
[2020-06-18] MEDS: ATORVASTATIN 20 MG TAB PO SCH ×2 (05:14→21:51)
[2020-06-18 06:00] VITALS: BP 155/87
[2020-06-18 06:28] LABS: HEMATOCRIT 30.5 % (42.0-52.0); HEMOGLOBIN 9.5 g/dl (13.5-17.5); MEAN CORPUSCULAR HEMOGLOBIN 31.7 pg (27.0-33.0); MEAN CORPUSCULAR HGB CONC 31.1 g/dl (32.0-36.5); MEAN CORPUSCULAR VOLUME 101.7 fl (80.0-96.0); PLATELET COUNT, AUTOMATED 102 10^3/uL (150-450); WHITE BLOOD COUNT 3.3 10^3/uL (4.0-10.0)
[2020-06-18 06:51] LABS: CALCIUM LEVEL 8.4 MG/DL (8.8-10.2); CREATININE FOR GFR 4.88 MG/DL (0.70-1.30); GLOMERULAR FILTRATION RATE 12.4 (>42); MAGNESIUM LEVEL 1.8 MG/DL (1.8-2.4); POTASSIUM SERUM 3.9 MEQ/L (3.5-5.1); VANCOMYCIN RANDOM 6.9 UG/ML
[2020-06-18] MEDS: PANTOPRAZOLE 40MG TAB (PROTONIX) PO SCH (08:18)
[2020-06-18] MEDS: TAMSULOSIN 0.4 MG CAP PO SCH (08:18)
[2020-06-18] MEDS: MULTIVITAMINS/MINERALS THERAP 1 TAB PO SCH (08:18)
[2020-06-18] MEDS: TORSEMIDE (DEMADEX) 50 MG PER 1/2 TAB PO SCH ×2 (08:22→16:53)
[2020-06-18] MEDS: DOCUSATE SODIUM 100MG CAPSULE PO SCH ×2 (08:22→21:51)
[2020-06-18] MEDS: VALSARTAN 80 MG TAB (DIOVAN) PO SCH (08:25)
[2020-06-18] MEDS: APIXABAN 2.5 MG TAB (ELIQUIS) PO SCH ×2 (08:25→21:51)
[2020-06-18] MEDS: CALCITRIOL 0.25 MCG CAP (S0169) PO SCH (08:25)
[2020-06-18] MEDS: allopurinoL 100 MG TAB PO SCH (08:26)
[2020-06-18] MEDS: LEVOTHYROXINE 88MCG TABLET (0.088 MG) PO SCH (08:32)
[2020-06-18] MEDS: CLOPIDOGREL 75 MG TAB PO SCH (13:18)
--- NOTE | 2020-06-18 15:32 | CR.PDOC ---
General Date of Consultation: Jun 18, 2020 Attending Physician: DANY JORDAN MD Consultation REASON FOR CONSULTATION/CHIEF COMPLAINT: cellulitis, management of ESRD HISTORY OF PRESENT ILLNESS: Jose Antonio Willson is a 75 YO M with history of ESRD on HD T/T/Sa, HTN, CAD, dCHF who presented to [facility] ED on 06/18/2020 with complaint of worsening swelling of his leg, pain and large area of erythema. The patient reports that he started to notice this area of pain and swelling around 6 days ago, and it has been worsening since that time. He has been feeling well recently but feels he has been limited in his daily activity due to the pain from putting weight on this leg. He has been attending his scheduled hemodialy sis sessions and has been taking all of his medication as prescribed. He denies any fevers, chills, nausea, vomiting or recent weight loss other than his weight fluctuation with hemodialysis. Today, at the bedside, he reports continued pain in his left leg with difficulty ambulating. He denies any fevers/chills/nausea/vomiting or diarrhea. ALLERGIES: Please see below. HOME MEDICATIONS: Please see below. PAST MEDICAL HISTORY: ESRD on HD TuesThSat Nephrectomy for renal cancer with a solitary kidney HTN CAD s/p CABG chronic diastolic heart failure persistent atrial fibrillation hypothyroidism cervical spine stenosis GERD Dm type II basal cell CA with excisional biopsy gout anxiety diverticular disease of the large colon prior GI bleed and hemorrhoids peripheral neuropathy PVD Hx of cellulitis Hx of cataracts Hx of colonic polyps glaucoma. PAST SURGICAL HISTORY: CABG 2007 left nephrectomy cataract extraction colonic polypectomy history of coronary stents and cardial ablation FAMILY HISTORY: Noncontributory SOCIAL HISTORY: The patient is a retired resident of [place], 5 grown children. No history of premature heart disease. REVIEW OF SYSTEMS: Constitutional: No Weight Change, No Fever, No Chills, No Night Sweats, No Fatigue, No Malaise ENT/Mouth: No Hearing Changes, No Ear Pain, No Nasal Congestion, No Sinus Pain, No Hoarseness, No sore throat, No Rhinorrhea, No Swallowing Difficulty Eyes: No Eye Pain, No Swelling, No Redness, No Foreign Body, No Discharge, No V ision Changes Cardiovascular: No Chest Pain, No SOB, No PND, No Dyspnea on Exertion, No Orthopnea, No Claudication, No Edema, No Palpitations Respiratory: No Cough, No Wheezing, No Dyspnea Gastrointestinal: No Nausea, No Vomiting, No Diarrhea, No Constipation, No Pain, No Heartburn, No Anorexia, No Dysphagia, No Hematochezia, No Melena Genitourinary: No Dysuria Musculoskeletal: Pain in left leg, swelling, difficulty ambulating Skin: No Skin Lesions, No Pruritis, No Hair Changes, No Breast/Skin Changes, No Nipple Discharge Neuro: No Weakness, No Numbness, No Paresthesias, No Loss of Consciousness, No Syncope, No Dizziness, No Headache, No Coordination Changes, No Recent Falls Psych: No Anxiety/Panic, No Depression, No Insomnia, No Personality Changes, No Delusions Heme/Lymph: No Bruising, No Bleeding, No Transfusions History, No Lymphadenopathy Endocrine: No Polyuria, No Polydipsia, No Temperature Intolerance PHYSICAL EXAMINATION: VITAL SIGNS: see below GENERAL: alert and oriented, in no apparent distress, pleasant and conversant in full sentences. HEENT: PERRL, EOMI, Oral mucous membranes are moist without lesions. NECK: The patient has no noted JVD. No adenopathy is appreciated. No thyromegaly CHEST/LUNGS: Lungs are clear bilaterally without rhonchi, rales, or wheezes. There is no subcutaneous air appreciated. There is no tenderness to the chest wall. HEART:Regular rate and rhythm. No murmurs, rubs, or gallops are appreciated. Distal pulses are 2+. No carotid bruits appreciated. ABDOMEN: Soft, nontender, and nondistended. Bowel sounds are positive. No organomegaly is appreciated. No masses are appreciated. There are no peritoneal signs. There is no [place] sign. EXTREMITIES: No peripheral edema is noted. There is a large (10 x 12 cm) area of erythema which has been outlined on the left lower leg, anterior surface. The area is not warm to the touch. There is no swelling in his leg. Right lower extremity has no edema. Pulses are intact SKIN: See above PSYCHIATRIC: AAO x 3, normal mood/affect NEUROLOGIC: 5 out of 5 strength in all or extremities, no other obvious focal deficits LABORATORY DATA: Please see below. IMAGING: US DUPLEX LLE: IMPRESSION: No evidence of deep vein thrombosis. There is a subcutaneous lesion anteriorly left lower extremity just below the level of the knee as described above. LLE CT: IMPRESSION: 1. No CT evidence for an abscess, necrotizing fasciitis, or osteomyelitis in the left knee or left calf. 2. Soft tissue swelling, edema in the subcutaneous tissues, and thickening of the skin in the left knee and left calf, which is compatible with cellulitis. 3. Tricompartmental osteoarthritis and chondrocalcinosis involving the left knee and a moderate left knee joint effusion. ASSESSMENT/PLAN: This is a 75-year-old male with end-stage renal disease on dialysis, hypertension, CAD who presents with about 1 week of worsening left lower extremity pain, difficulty ambulating, redness and erythema of the skin co ncerning for cellulitis. Nephrology service consulted for hemodialysis management. 1. End-stage renal disease on hemodialysis: -Will hold off on hemodialysis today, will resume tomorrow -Please refrain from any additional fluid resuscitation, as patient appears euvolemic on exam -Patient does have history of vertigo questionably correlated to dialysis, post- treatment. Will monitor 2. Anemia of chronic kidney disease: -Hemoglobin 9.5 today down from 11.3 likely due to hemodilution from fluids. No signs of acute bleed 3. Renovascular hypertension: -Continue home dose of clonidine topical -Continue home valsartan 160 mg by mouth daily 4. Secondary hyperparathyroidism: -Calcium low at 8.4 -Continue calcitriol 5. Left lower extremity cellulitis: -Agree with current empiric vancomycin 6. CAD, recent [place], history of CABG: -Continue aspirin, Plavix, statin 7. History of Atrial fibrillation: -Rate controlled at this time, continue Eliquis 8. History of diastolic CHF, preserved EF: -Continue Torsemide 50mg BID DISPOSITION: Continue IV antibiotic therapy, hemodialysis tomorrow Vital Signs/I&O Vital Signs Date Time Temp Pulse Resp B/P (MAP) Pulse Ox O2 Delivery O2 Flow Rate FiO2 06/18/20 08:25 122/72 06/18/20 06:00 97.6 71 17 95 Room Air I&O- Last 24 Hours up to 6 AM 06/18/20 06:00 Intake Total 920 ml Balance 920 ml Laboratory Data Labs 24H Laboratory Tests 2 06/17/20 20:43: Immature Granulocyte % (Auto) 0.5, Neutrophils (%) (Auto) 68.3H, Lymphocytes (%) (Auto) 15.6L, Monocytes (%) (Auto) 12.7H, Eosinophils (%) (Auto) 2.2, Basophils (%) (Auto) 0.7, Neutrophils # (Auto) 2.9, Lymphocytes # (Auto) 0.7L, Monocytes # (Auto) 0.5, Eosinophils # (Auto) 0.1, Basophils # (Auto) 0.0, Nucleated Red Blood Cells % (auto) 0.0 06/17/20 20:44: Erythrocyte Sedimentation Rate 14, Prothrombin Time 16.0H, Prothromb Time I nternational Ratio 1.26, Activated Partial Thromboplast Time 33.7, Anion Gap 9, Glomerular Filtration Rate 12.4L, Lactic Acid Level 1.3, Calcium Level 8.7L, Total Bilirubin 0.5, Direct Bilirubin 0.2, Aspartate Amino Transf (AST/SGOT) 15, Alanine Aminotransferase (ALT/SGPT) 36, Alkaline Phosphatase 130H, C-Reactive Protein, Quantitative 0.30, Total Protein 7.1, Albumin 3.8, Albumin/Globulin Ratio 1.2 06/17/20 23:26: Coronavirus (COVID-19)(PCR) NEGATIVE, Influenza Type A (RT-PCR) NEGATIVE, Influenza Type B (RT-PCR) NEGATIVE, Respiratory Syncytial Virus (PCR) NEGATIVE 06/18/20 05:18: Methicillin-Resist S.aureus DNA PCR NOT DETECTED 06/18/20 05:46: Nucleated Red Blood Cells % (auto) 0.0, Anion Gap 8, Glomerular Filtration Rate 12.4L, Calcium Level 8.4L, Magnesium Level 1.8, Random Vancomycin Level 6.9 06/18/20 09:05: Random Vancomycin Level 5.6 CBC/BMP Laboratory Tests 06/17/20 20:43 06/17/20 20:44 06/18/20 05:46 Microbiology Microbiology 06/17/20 Blood Culture, Received Pending 06/17/20 Blood Culture, Received Pending Allergies Coded Allergies: Penicillins (Verified Allergy, Mild, rash/itching, 06/17/20) Tetracyclines (Verified Allergy, Mild, ITCHING, 06/17/20) Sulfa (Sulfonamide Antibiotics) (Unverified Allergy, Unknown, unknown, 06/17/20) erythromycin base (Unverified Allergy, Unknown, unknown, 06/17/20) minoxidil (Verified Adverse Reaction, Intermediate, ANASARCA, 06/17/20) Contrast Media (Verified Adverse Reaction, Mild, MADE LEG TURN RED, 06/17/20) amlodipine (Verified Adverse Reaction, Mild, FLUID RETENTION, 06/17/20) carvedilol (Verified Adverse Reaction, Mild, FLUID RETENTION, 06/17/20) hydralazine (Verified Adverse Reaction, Mild, FLUID RETENTION, 06/17/20) cephalexin (Unverified Adverse Reaction, Unknown, FLUID RETENTION, 06/17/20) Home Medications Scheduled Allopurinol (Allopurinol) 100 Mg Tablet, 100 MG PO DAILY, (Reported) Apixaban (Eliquis) 2.5 Mg Tablet, 2.5 MG PO BID, (Reported) Atorvastatin Calcium (Atorvastatin Calcium) 40 Mg Tab, 40 MG PO QHS, (Reported) Calcitriol (Calcitriol) 0.25 Mcg Capsule, 0.25 MCG PO 3XW, (Reported) TUES, TH, SAT Clonidine (Clonidine) 0.2 Mg Patch.tdwk, 0.2 MG TOP 1XWK, (Reported) CHANGE ON SATURDAYS Clopidogrel Bisulfate (Clopidogrel) 75 Mg Tablet, 75 MG PO DAILY, (Reported) TAKES AT NOON Famotidine (Famotidine) 20 Mg Tablet, 20 MG PO DAILY, (Reported) Levothyroxine Sodium (Levothyroxine Sodium) 88 Mcg Tablet, 88 MCG PO DAILY, (Reported) Multivitamins (Thera M Plus Tablet) 1 Tab Tab, 1 TAB PO DAILY, (Reported) Pantoprazole Sodium (Pantoprazole Sodium) 40 Mg Tablet.dr, 40 MG PO DAILY, (Reported) Tamsulosin Hcl (Tamsulosin HCl) 0.4 Mg Capsule, 0.4 G PO DAILY, (Reported) Torsemide (Torsemide) 100 Mg Tablet, 50 MG PO BID, (Reported) 0900, 1700 Valsartan (Valsartan) 160 Mg Tablet, 160 MG PO DAILY, (Reported) Scheduled PRN Alprazolam (Alprazolam) 0.5 Mg Tablet, 0.5 MG PO DAILY PRN for ANXIETY, (Reporte d) Lidocaine (Lidoderm) 5 % Dis, 1 PATCH TD DAILY PRN for PAIN, (Reported) APPLY TO LOWER BACK 12H ON 12H OFF Nitroglycerin (Nitrostat) 0.4 Mg Tab.subl, 0.4 MG SL NITRO PRN for CHEST PAIN, (Reported) GME ATTESTATION GME ATTESTATION My faculty preceptor for this patient encounter was physically present during the encounter and was fully available. All aspects of the patient interview, examination, medical decision making process, and medical care plan development were reviewed and approved by the faculty preceptor. The faculty preceptor is aware and concurs with the plan as stated in the body of this note and will attest to such by his/her cosignature. Attending Note Attending Note ESRD on HD HFpEF CAD s/p [place] and stent Anemia in ESRD Lt leg cellulitis HD tomorrow. FRAN with HD. cont IV vanco. Continue rest of med. YUMIKO OLVERA MD Jun 18, 2020 13:32 DANY JORDAN MD Jun 18, 2020 21:58
[2020-06-18 16:00] VITALS: BP 130/62
[2020-06-18] MEDS: LIDOCAINE 5% (LIDODERM) PATCH TD PRN (16:53)
[2020-06-18 21:00] VITALS: O2SAT 99
--- NOTE | 2020-06-18 21:17 | IPNPDOC ---
Date Seen The patient was seen on 06/18/20. Progress Note SUBJECTIVE: C/w IV abx, pain and erythema persists in LLE. Denies chest pain, sob, fevers, chills. PT to evaluate. OBJECTIVE: PHYSICAL EXAMINATION: VITAL SIGNS: See Below GENERAL APPEARANCE: NAD, resting in bed. AAOx 3 HEENT: No mass or lesion. No scleral icterus or conjunctival erythema. Nares patent. Oral mucosa moist CARDIOVASCULAR: Regular rate, rhythm. No murmurs, rubs or gallops LUNGS: CTAB. No wheezing, rales, rhonchil. CHEST: permacath in right chest ABDOMEN: Soft, non-tender. No tenderness MUSCULOSKELETAL:No joint deformity EXTREMITIES: There is a large area or erythema located on the distal LE. The most superior edge of the erythema contains an area of edema that is exquisitely tender to palpation. This area is firm and non-fluctuant. No drainage or vesicles noted- no increase in erythema since outlined on admission. Patients left foot appears to be desquamating on the plantar surface. No drainage noted here NEUROLOGICAL: CN 2-12 intact, no focal deficits PSYCHIATRIC: Mood and affect appropriate LABORATORY DATA: See below. MICROBIOLOGY: Please see below. IMAGING: Vascular US: No evidence of deep vein thrombosis. There is a subcutaneous lesion anteriorly left lower extremity just below the level of the knee as described above. LL Extremity CT: 1. No CT evidence for an abscess, necrotizing fasciitis, or osteomyelitis in the left knee or left calf. 2. Soft tissue swelling, edema in the subcutaneous tissues, and thickening of the skin in the left knee and left calf, which is compatible with cellulitis. 3. Tricompartmental osteoarthritis and chondrocalcinosis involving the left knee and a moderate left knee joint effusion. ] ASSESSMENT: This is a 75 year old male with PMH of ESRD ON HD, CAD s/p CABG and stenting, NIDDM admitted for LLE cellulitis. PLAN: LLE Cellulitis -WBC 3.3, afebrile, tenderness and erythema persist in anterior LLE kidd -Imaging above, neg for DVT -ESR and CRP neg -Hx of LLE cellulitis in past treated with abx -C/w pain control, IV vancomycin -PT/OT to assess ambulatory status ESRD on HD -HD tomorrow -Nephrology consulted. -Daily labs NIDDM -Stable, monitor glucose. -Holding off on ISS HTN -C/w valsartan, torsemide, clonidine patch CAD s/p CABG stenting, [place] -C/w home treatment Hx of HFpEF, not in exacerbation -Fluid status looks good. monitor -C/w home medications, including diuretic TIA -Continue plavix, asa Hx a-fib -Rate controlled, continue eliquis HLD -Continue atorvastatin Anxiety -xanax prn Hypothyroidism -Continue levothyroxine Gout - continue allopurinol BPH - Continue flomax GERD - continue pepcid DVT -C/w eliquis DISPOSITION: PT/OT to evaluate ambulatory status, on IV abx. Plan is discharge home when medically improved. VS, I&O, 24H, Fishbone Vital Signs/I&O Vital Signs Date Time Temp Pulse Resp B/P (MAP) Pulse Ox O2 Delivery O2 Flow Rate FiO2 06/18/20 16:00 97.3 64 18 130/62 (84) 98 Room Air I&O- Last 24 Hours up to 6 AM 06/18/20 06:00 Intake Total 920 ml Balance 920 ml Laboratory Data 24H LABS Laboratory Tests 2 06/17/20 23:26: Coronavirus (COVID-19)(PCR) NEGATIVE, Influenza Type A (RT-PCR) NEGATIVE, Influenza Type B (RT-PCR) NEGATIVE, Respiratory Syncytial Virus (PCR) NEGATIVE 06/18/20 05:18: Methicillin-Resist S.aureus DNA PCR NOT DETECTED 06/18/20 05:46: Nucleated Red Blood Cells % (auto) 0.0, Anion Gap 8, Glomerular Filtration Rate 12.4L, Calcium Level 8.4L, Magnesium Level 1.8, Random Vancomycin Level 6.9 06/18/20 09:05: Random Vancomycin Level 5.6 CBC/BMP Laboratory Tests 06/18/20 05:46 Microbiology Microbiology 06/17/20 Blood Culture, Received Pending 06/17/20 Blood Culture - Preliminary, Resulted No growth after 24 hours . All specim... Current Medications Current Medications Medications (Trade) Dose Ordered Sig/Christian Route PRN Reason Start Time Stop Time Status Last Admin Dose Admin Acetaminophen (Tylenol Tab) 650 mg Q4H PRN PO MILD PAIN OR FEVER 06/17/20 23:35 06/18/20 02:24 Allopurinol (Zyloprim) 100 mg DAILY PO 06/18/20 09:00 06/18/20 08:26 Alprazolam (Xanax) 0.5 mg DAILY PRN PO ANXIETY 06/18/20 03:30 Apixaban (Eliquis) 2.5 mg BID PO 06/18/20 09:00 06/18/20 08:25 Atorvastatin Calcium (Lipitor) 40 mg QHS PO 06/17/20 21:00 06/18/20 05:14 Calcitriol (Rocaltrol) 0.25 mcg TuThSa@0900 PO 06/18/20 09:00 06/18/20 08:25 Clonidine HCl (Lhugajhp-Ymy-9) 0.2 ea Sa@0900 TOP 06/22/20 09:00 Clopidogrel Bisulfate (PLAVix) 75 mg DAILY@1200 PO 06/18/20 12:00 06/18/20 13:18 Docusate Sodium (Colace) 100 mg BID PO 06/17/20 21:00 06/18/20 08:22 Famotidine (Pepcid) 20 mg Q48H PO 06/19/20 09:00 Home Med (Med Rec Complete!) ASDIRECTED XX 06/18/20 03:20 06/18/20 03:26 DC Levothyroxine Sodium (Synthroid) 88 mcg DAILY PO 06/18/20 09:00 06/18/20 08:32 Lidocaine (Lidoderm Patch) 1 patch DAILY PRN TD PAIN 06/18/20 03:30 06/18/20 16:53 Magnesium Hydroxide (Milk Of Magnesia) 30 ml DAILY PRN PO CONSTIPATION 06/17/20 23:35 Morphine Sulfate (Morphine Sulfate Inj) 2 mg Q6H PRN IV MODERATE PAIN (PS 5-7) 06/18/20 03:10 Multivitamins (Theragram-M) 1 tab DAILY PO 06/18/20 09:00 06/18/20 08:18 Nitroglycerin (Nitrostat (1/ 150)) 0.4 mg Q5M PRN SL CHEST PAIN 06/18/20 03:30 Non-Formulary Medication ( See Comment Field Below ) CHECK TO SEE IF THE PATIENT... DAILY@1600 XX 06/19/20 16:00 Non-Formulary Medication ( See Comment Field Below ) REMOVE LIDODERM PATCH DAILYPRN PRN XX SEE LABEL COMMENTS 06/18/20 03:40 Non-Formulary Medication ( See Comment Field Below ) VANCO INTERMIT. DOSING ASDIRECTED XX 06/18/20 02:35 06/18/20 14:25 DC Pantoprazole Sodium (Protonix) 40 mg DAILY PO 06/18/20 09:00 06/18/20 08:18 Ramelteon (Rozerem) 8 mg QHS PRN PO INSOMNIA 06/18/20 01:20 06/18/20 02:09 Sodium Chloride 1,000 ml @ 100 mls/hr Q10H IV 06/17/20 22:10 06/18/20 02:38 DC 06/18/20 02:10 Tamsulosin HCl (Flomax) 0.4 mg DAILY PO 06/18/20 09:00 06/18/20 08:18 Torsemide (Demadex) 50 mg BID@0900,1700 PO 06/18/20 09:00 06/18/20 16:53 Valsartan (Diovan) 160 mg DAILY PO 06/18/20 09:00 06/18/20 08:25 Vancomycin HCl 1000 mg/IV Miscellaneous Supplies 1 each/ Sodium Chloride 270 ml @ 270 mls/hr HD IV 06/19/20 16:00 Allergies Coded Allergies: Penicillins (Verified Allergy, Mild, rash/itching, 06/17/20) Tetracyclines (Verified Allergy, Mild, ITCHING, 06/17/20) Sulfa (Sulfonamide Antibiotics) (Unverified Allergy, Unknown, unknown, 06/17/20) erythromycin base (Unverified Allergy, Unknown, unknown, 06/17/20) minoxidil (Verified Adverse Reaction, Intermediate, ANASARCA, 06/17/20) Contrast Media (Verified Adverse Reaction, Mild, MADE LEG TURN RED, 06/17/20) amlodipine (Verified Adverse Reaction, Mild, FLUID RETENTION, 06/17/20) carvedilol (Verified Adverse Reaction, Mild, FLUID RETENTION, 06/17/20) hydralazine (Verified Adverse Reaction, Mild, FLUID RETENTION, 06/17/20) cephalexin (Unverified Adverse Reaction, Unknown, FLUID RETENTION, 06/17/20) Matilda Farris MD Jun 18, 2020 21:17
[2020-06-18 22:00] VITALS: BP 164/78
[2020-06-19] MEDS ORDERED: RAMELTEON 8 MG TAB (ROZEREM) As Ordered ONE (01:39)
[2020-06-19 06:00] VITALS: BP 136/64
[2020-06-19 07:16] LABS: HEMATOCRIT 32.9 % (42.0-52.0); HEMOGLOBIN 10.4 g/dl (13.5-17.5); MEAN CORPUSCULAR HEMOGLOBIN 31.8 pg (27.0-33.0); MEAN CORPUSCULAR HGB CONC 31.6 g/dl (32.0-36.5); MEAN CORPUSCULAR VOLUME 100.6 fl (80.0-96.0); PLATELET COUNT, AUTOMATED 106 10^3/uL (150-450); RED BLOOD COUNT 3.27 10^6/uL (4.30-6.10); WHITE BLOOD COUNT 3.8 10^3/uL (4.0-10.0)
[2020-06-19] MEDS: LIDOCAINE 5% (LIDODERM) PATCH TD PRN (07:47)
[2020-06-19] MEDS: DOCUSATE SODIUM 100MG CAPSULE PO SCH ×2 (07:47→20:27)
[2020-06-19] MEDS: allopurinoL 100 MG TAB PO SCH (07:47)
[2020-06-19] MEDS: FAMOTIDINE 20 MG TAB PO SCH (07:48)
[2020-06-19] MEDS: LEVOTHYROXINE 88MCG TABLET (0.088 MG) PO SCH (07:48)
[2020-06-19] MEDS: PANTOPRAZOLE 40MG TAB (PROTONIX) PO SCH (07:48)
[2020-06-19] MEDS: TAMSULOSIN 0.4 MG CAP PO SCH (07:48)
[2020-06-19] MEDS: MULTIVITAMINS/MINERALS THERAP 1 TAB PO SCH (07:48)
[2020-06-19] MEDS: TORSEMIDE (DEMADEX) 50 MG PER 1/2 TAB PO SCH ×2 (07:48→17:45)
[2020-06-19] MEDS: APIXABAN 2.5 MG TAB (ELIQUIS) PO SCH ×2 (07:48→20:27)
[2020-06-19] MEDS: VALSARTAN 80 MG TAB (DIOVAN) PO SCH (07:52)
[2020-06-19 08:01] LABS: CALCIUM LEVEL 8.9 MG/DL (8.8-10.2); CREATININE FOR GFR 5.26 MG/DL (0.70-1.30); GLOMERULAR FILTRATION RATE 11.4 (>42); POTASSIUM SERUM 4.3 MEQ/L (3.5-5.1); VANCOMYCIN RANDOM 11.3 UG/ML
[2020-06-19] MEDS ORDERED: VANCOMYCIN HCL 1,000 MG, VIAL MATE ADAPTER 1 EACH in NS 250 ML IV ONE (09:00)
[2020-06-19] MEDS: VANICREAM MOISTURIZING SKIN CREAM 113GM TUBE TOP SCH (09:00)
[2020-06-19] MEDS: SIMETHICONE 80MG CHEW TAB PO PRN ×2 (09:15→13:27)
[2020-06-19] MEDS: CLOPIDOGREL 75 MG TAB PO SCH (12:19)
--- NOTE | 2020-06-19 15:38 | IPNPDOC ---
Subjective General Date/Time Seen The patient was seen on 06/19/20 at 15:32. Subject Chief Complaint/History The patient is a 75-year-old male admitted with a reason for visit of Cellulitis Of L Lower Extremity,Esrd. SUBJECTIVE Mr. Willson was seen and examined sitting on the edge of the bedside this morning. He notes that earlier this morning his left leg was not swollen but it is now quite swollen and painful. He has a few small "knots" on his kidd that are quite sensitive to touch and very painful. He has not had any swelling in his other leg. He is concerned about his fluid status. He states he is ready to go for hemodialysis today. He denies any fevers/chills/nausea/vomiting/diarrhea at this time. No issues reported overnight. OBJECTIVE PHYSICAL EXAMINATION: VITAL SIGNS: see below GENERAL: alert and oriented, in no apparent distress, pleasant and conversant in full sentences. HEENT: PERRL, EOMI, Oral mucous membranes are moist without lesions. NECK: The patient has no noted JVD. No adenopathy is appreciated. No thyromegaly CHEST/LUNGS: Lungs are clear bilaterally without rhonchi, rales, or wheezes. There is no subcutaneous air appreciated. There is no tenderness to the chest wall. HEART: irregularly irregular. No murmurs, rubs, or gallops are appreciated. Distal pulses are 2+. No carotid bruits appreciated. ABDOMEN: Soft, nontender, and nondistended. Bowel sounds are positive. No organomegaly is appreciated. No masses are appreciated. There are no peritoneal signs. There is no [place] sign. EXTREMITIES: No peripheral edema is noted. There is a large (10 x 12 cm) area of erythema which has been outlined on the left lower leg, anterior surface. The area is slightly warm to the touch. There is about 2+ pitting edema in this leg. Here is an area on the kidd just below the knee with 3 hard discrete notches that is very painful to touch. Right lower extremity has no edema. Pulses are intact SKIN: See above PSYCHIATRIC: AAO x 3, normal mood/affect NEUROLOGIC: 5 out of 5 strength in all or extremities, no other obvious focal deficits LABORATORY DATA: Please see below. IMAGING: US DUPLEX LLE: IMPRESSION: No evidence of deep vein thrombosis. There is a subcutaneous lesion anteriorly left lower extremity just below the level of the knee as described above. LLE CT: IMPRESSION: 1. No CT evidence for an abscess, necrotizing fasciitis, or osteomyelitis in the left knee or left calf. 2. Soft tissue swelling, edema in the subcutaneous tissues, and thickening of the skin in the left knee and left calf, which is compatible with cellulitis. 3. Tricompartmental osteoarthritis and chondrocalcinosis involving the left knee and a moderate left knee joint effusion. ASSESSMENT/PLAN: This is a 75-year-old male with end-stage renal disease on dialysis, hypertension, CAD who presents with about 1 week of worsening left lower extremity pain, difficulty ambulating, redness and erythema of the skin concerning for cellulitis. Nephrology service consulted for hemodialysis management. 1. End-stage renal disease on hemodialysis: -Plan for Hemodialysis today -Patient does have history of vertigo questionably correlated to dialysis, post- treatment. Will monitor 2. Anemia of chronic kidney disease: -Hemoglobin stable at 10.4 today 3. Renovascular hypertension: -Continue home dose of clonidine topical -Continue home valsartan 160 mg by mouth daily 4. Secondary hyperparathyroidism: -Calcium 8.9 today -Continue calcitriol 5. Left lower extremity cellulitis: -Agree with current empiric vancomycin regimen 6. CAD, recent LA, history of CABG: -Continue aspirin, Plavix, statin 7. History of Atrial fibrillation: -Rate controlled at this time, continue Eliquis 8. History of diastolic CHF, preserved EF: -Continue Torsemide 50mg BID DISPOSITION: Continue IV antibiotic therapy, hemodialysis today Current Medications Current Medications Current Medications Medications (Trade) Dose Ordered Sig/Christian Route PRN Reason Start Time Stop Time Status Last Admin Dose Admin Acetaminophen (Tylenol Tab) 650 mg Q4H PRN PO MILD PAIN OR FEVER 06/17/20 23:35 06/18/20 02:24 Allopurinol (Zyloprim) 100 mg DAILY PO 06/18/20 09:00 06/19/20 07:47 Alprazolam (Xanax) 0.5 mg DAILY PRN PO ANXIETY 06/18/20 03:30 Apixaban (Eliquis) 2.5 mg BID PO 06/18/20 09:00 06/19/20 07:48 Atorvastatin Calcium (Lipitor) 40 mg QHS PO 06/17/20 21:00 06/18/20 21:51 Calcitriol (Rocaltrol) 0.25 mcg TuThSa@0900 PO 06/18/20 09:00 06/18/20 08:25 Clonidine HCl (Izpftzcn-Fwv-3) 0.2 ea Sa@0900 TOP 06/22/20 09:00 Clopidogrel Bisulfate (PLAVix) 75 mg DAILY@1200 PO 06/18/20 12:00 06/19/20 12:19 Docusate Sodium (Colace) 100 mg BID PO 06/17/20 21:00 06/19/20 07:47 Emollient Cream (Vanicream) Apply to bilateral feet DAILY TOP 06/19/20 09:00 Famotidine (Pepcid) 20 mg Q48H PO 06/19/20 09:00 06/19/20 07:48 Heparin Sodium (Heparin) Please refer to ... ASDIRECTED XX 06/19/20 06:40 06/20/20 06:39 Heparin Sodium (Heparin) dose as per volume indica... ASDIRECTED PRN IV SEE LABEL COMMENTS 06/19/20 06:40 06/20/20 06:39 Home Med (Med Rec Complete!) ASDIRECTED XX 06/18/20 03:20 06/18/20 03:26 DC Levothyroxine Sodium (Synthroid) 88 mcg DAILY PO 06/18/20 09:00 06/19/20 07:48 Lidocaine (Lidoderm Patch) 1 patch DAILY PRN TD PAIN 06/18/20 03:30 06/19/20 07:47 Magnesium Hydroxide (Milk Of Magnesia) 30 ml DAILY PRN PO CONSTIPATION 06/17/20 23:35 Morphine Sulfate (Morphine Sulfate Inj) 2 mg Q6H PRN IV MODERATE PAIN (PS 5-7) 06/18/20 03:10 Multivitamins (Theragram-M) 1 tab DAILY PO 06/18/20 09:00 06/19/20 07:48 Nitroglycerin (Nitrostat (1/ 150)) 0.4 mg Q5M PRN SL CHEST PAIN 06/18/20 03:30 Non-Formulary Medication ( See Comment Field Below ) CHECK TO SEE IF THE PATIENT... DAILY@1600 XX 06/19/20 16:00 Non-Formulary Medication ( See Comment Field Below ) REMOVE LIDODERM PATCH DAILYPRN PRN XX SEE LABEL COMMENTS 06/18/20 03:40 Non-Formulary Medication ( See Comment Field Below ) VANCO INTERMIT. DOSING ASDIRECTED XX 06/18/20 02:35 06/18/20 14:25 DC Pantoprazole Sodium (Protonix) 40 mg DAILY PO 06/18/20 09:00 06/19/20 07:48 Ramelteon (Rozerem) 8 mg QHS PRN PO INSOMNIA 06/18/20 01:20 06/18/20 02:09 Simethicone (Mylicon) 80 mg TIDP PRN PO GAS PAIN 06/19/20 08:20 06/19/20 13:27 Sodium Chloride 1,000 ml @ 100 mls/hr Q10H IV 06/17/20 22:10 06/18/20 02:38 DC 06/18/20 02:10 Tamsulosin HCl (Flomax) 0.4 mg DAILY PO 06/18/20 09:00 06/19/20 07:48 Torsemide (Demadex) 50 mg BID@0900,1700 PO 06/18/20 09:00 06/19/20 07:48 Valsartan (Diovan) 160 mg DAILY PO 06/18/20 09:00 06/19/20 07:52 Vancomycin HCl 1000 mg/IV Miscellaneous Supplies 1 each/ Sodium Chloride 270 ml @ 270 mls/hr HD IV 06/19/20 16:00 Allergies Coded Allergies: Penicillins (Verified Allergy, Mild, rash/itching, 06/17/20) Tetracyclines (Verified Allergy, Mild, ITCHING, 06/17/20) Sulfa (Sulfonamide Antibiotics) (Unverified Allergy, Unknown, unknown, 06/17/20) erythromycin base (Unverified Allergy, Unknown, unknown, 06/17/20) minoxidil (Verified Adverse Reaction, Intermediate, ANASARCA, 06/17/20) Contrast Media (Verified Adverse Reaction, Mild, MADE LEG TURN RED, 06/17/20 ) amlodipine (Verified Adverse Reaction, Mild, FLUID RETENTION, 06/17/20) carvedilol (Verified Adverse Reaction, Mild, FLUID RETENTION, 06/17/20) hydralazine (Verified Adverse Reaction, Mild, FLUID RETENTION, 06/17/20) cephalexin (Unverified Adverse Reaction, Unknown, FLUID RETENTION, 06/17/20) VS,Fishbone, I+O VS, Fishbone, I+O Laboratory Tests 06/19/20 07:01 Vital Signs Date Time Temp Pulse Resp B/P (MAP) Pulse Ox O2 Delivery O2 Flow Rate FiO2 06/19/20 07:52 190/77 06/19/20 06:00 98.0 66 18 98 Room Air I&O- Last 24 Hours up to 6 AM 06/19/20 06:00 Intake Total 1160 ml Output Total 800 ml Balance 360 ml GME ATTESTATION GME ATTESTATION My faculty preceptor for this patient encounter was physically present during the encounter and was fully available. All aspects of the patient interview, examination, medical decision making process, and medical care plan development were reviewed and approved by the faculty preceptor. The faculty preceptor is aware and concurs with the plan as stated in the body of this note and will attest to such by his/her cosignature. Attending Note Attending Note ESRD on HD Lt Leg cellulitis HFpEF/Leg edema HTN Afib CAD Recent LA and stent HD today with UF goal~2.5Kg. cont IV Abx. YUMIKO OLVERA MD Jun 19, 2020 15:38 DANY JORDAN MD Jun 19, 2020 22:24
[2020-06-19] MEDS ORDERED: VANCOMYCIN HCL 1,000 MG, VIAL MATE ADAPTER 1 EACH in NS 250 ML IV SCH (16:00)
--- NOTE | 2020-06-19 16:54 | IPNPDOC ---
Date Seen The patient was seen on 06/19/20. Progress Note SUBJECTIVE: C/w IV abx, pain and erythema persists in LLE. Ordering LLE arterial US, discussed with Dr. Marie. Denies chest pain, sob, fevers, chills. OBJECTIVE: PHYSICAL EXAMINATION: VITAL SIGNS: See Below GENERAL APPEARANCE: NAD, resting in bed. AAOx 3 HEENT: No mass or lesion. No scleral icterus or conjunctival erythema. Nares patent. Oral mucosa moist CARDIOVASCULAR: Regular rate, rhythm. No murmurs, rubs or gallops LUNGS: CTAB. No wheezing, rales, rhonchil. CHEST: permacath in right chest ABDOMEN: Soft, non-tender. No tenderness MUSCULOSKELETAL:No joint deformity EXTREMITIES: There is a large area or erythema located on the distal LE. The most superior edge of the erythema contains an area of edema that is exquisitely tender to palpation. This area is firm and non-fluctuant. No drainage or vesicles noted- no increase in erythema since outlined on admission but also has not much improved. NEUROLOGICAL: CN 2-12 intact, no focal deficits PSYCHIATRIC: Mood and affect appropriate LABORATORY DATA: See below. MICROBIOLOGY: Please see below. IMAGING: F/u LLE arterial US Vascular US: No evidence of deep vein thrombosis. There is a subcutaneous lesion anteriorly left lower extremity just below the level of the knee as described above. LL Extremity CT: 1. No CT evidence for an abscess, necrotizing fasciitis, or osteomyelitis in the left knee or left calf. 2. Soft tissue swelling, edema in the subcutaneous tissues, and thickening of the skin in the left knee and left calf, which is compatible with cellulitis. 3. Tricompartmental osteoarthritis and chondrocalcinosis involving the left knee and a moderate left knee joint effusion. ] ASSESSMENT: This is a 75 year old male with PMH of ESRD ON HD, CAD s/p CABG and stenting, NIDDM admitted for LLE cellulitis. PLAN: LLE Cellulitis vs. redness, pain and swelling associated with PAD? -WBC 3.3, afebrile, tenderness and erythema persist in anterior LLE kidd -Imaging above, neg for DVT on venous US -ESR and CRP neg -Hx of LLE cellulitis in past treated with abx -F/u arterial US. If abnormal, consult Dr. Marie -C/w pain control, IV vancomycin for now -PT: Patient demonstrates functional mobility at SBA level this session; pt still c/o Lt LE pain but may require just 1 more PT session to be cleared for D/C. ESRD on HD -HD today -Nephrology following -Daily labs NIDDM -Stable, monitor glucose. -Holding off on ISS HTN -C/w valsartan, torsemide, clonidine patch CAD s/p CABG stenting, [place] -C/w home treatment Hx of HFpEF, not in exacerbation -Fluid status looks good. monitor -C/w home medications, including diuretic TIA -Continue plavix, asa Hx a-fib -Rate controlled, continue eliquis HLD -Continue atorvastatin Anxiety -xanax prn Hypothyroidism -Continue levothyroxine Gout - continue allopurinol BPH - Continue flomax GERD - continue pepcid DVT -C/w eliquis DISPOSITION: F/u arterial US, may or may not need to involve vascular surgery with patinet's history. C/w PT, plan is discharge home when medically improved. VS, I&O, 24H, Trebone Vital Signs/I&O Vital Signs Date Time Temp Pulse Resp B/P (MAP) Pulse Ox O2 Delivery O2 Flow Rate FiO2 06/19/20 07:52 190/77 06/19/20 06:00 98.0 66 18 98 Room Air I&O- Last 24 Hours up to 6 AM 06/19/20 05:59 Intake Total 1580 ml Output Total 800 ml Balance 780 ml Laboratory Data 24H LABS Laboratory Tests 2 06/19/20 07:01: Nucleated Red Blood Cells % (auto) 0.0, Anion Gap 9, Glomerular Filtration Rate 11.4L, Calcium Level 8.9, Random Vancomycin Level 11.3 06/19/20 16:18: Bedside Glucose (Misc Panel) 105 CBC/BMP Laboratory Tests 06/19/20 07:01 Microbiology Microbiology 06/17/20 Blood Culture - Preliminary, Resulted No growth after 24 hours . All specim... 06/17/20 Blood Culture - Preliminary, Resulted No growth after 24 hours . All specim... Current Medications Current Medications Medications (Trade) Dose Ordered Sig/Christian Route PRN Reason Start Time Stop Time Status Last Admin Dose Admin Acetaminophen (Tylenol Tab) 650 mg Q4H PRN PO MILD PAIN OR FEVER 06/17/20 23:35 06/18/20 02:24 Allopurinol (Zyloprim) 100 mg DAILY PO 06/18/20 09:00 06/19/20 07:47 Alprazolam (Xanax) 0.5 mg DAILY PRN PO ANXIETY 06/18/20 03:30 Apixaban (Eliquis) 2.5 mg BID PO 06/18/20 09:00 06/19/20 07:48 Atorvastatin Calcium (Lipitor) 40 mg QHS PO 06/17/20 21:00 06/18/20 21:51 Calcitriol (Rocaltrol) 0.25 mcg TuThSa@0900 PO 06/18/20 09:00 06/18/20 08:25 Clonidine HCl (Xvehtmpt-Fmy-4) 0.2 ea Sa@0900 TOP 06/22/20 09:00 Clopidogrel Bisulfate (PLAVix) 75 mg DAILY@1200 PO 06/18/20 12:00 06/19/20 12:19 Docusate Sodium (Colace) 100 mg BID PO 06/17/20 21:00 06/19/20 07:47 Emollient Cream (Vanicream) Apply to bilateral feet DAILY TOP 06/19/20 09:00 Famotidine (Pepcid) 20 mg Q48H PO 06/19/20 09:00 06/19/20 07:48 Heparin Sodium (Heparin) Please refer to ... ASDIRECTED XX 06/19/20 06:40 06/20/20 06:39 Heparin Sodium (Heparin) dose as per volume indica... ASDIRECTED PRN IV SEE LABEL COMMENTS 06/19/20 06:40 06/20/20 06:39 Home Med (Med Rec Complete!) ASDIRECTED XX 06/18/20 03:20 06/18/20 03:26 DC Levothyroxine Sodium (Synthroid) 88 mcg DAILY PO 06/18/20 09:00 06/19/20 07:48 Lidocaine (Lidoderm Patch) 1 patch DAILY PRN TD PAIN 06/18/20 03:30 06/19/20 07:47 Magnesium Hydroxide (Milk Of Magnesia) 30 ml DAILY PRN PO CONSTIPATION 06/17/20 23:35 Morphine Sulfate (Morphine Sulfate Inj) 2 mg Q6H PRN IV MODERATE PAIN (PS 5-7) 06/18/20 03:10 Multivitamins (Theragram-M) 1 tab DAILY PO 06/18/20 09:00 06/19/20 07:48 Nitroglycerin (Nitrostat (1/ 150)) 0.4 mg Q5M PRN SL CHEST PAIN 06/18/20 03:30 Non-Formulary Medication ( See Comment Field Below ) CHECK TO SEE IF THE PATIENT... DAILY@1600 XX 06/19/20 16:00 Non-Formulary Medication ( See Comment Field Below ) REMOVE LIDODERM PATCH DAILYPRN PRN XX SEE LABEL COMMENTS 06/18/20 03:40 Non-Formulary Medication ( See Comment Field Below ) VANCO INTERMIT. DOSING ASDIRECTED XX 06/18/20 02:35 06/18/20 14:25 DC Pantoprazole Sodium (Protonix) 40 mg DAILY PO 06/18/20 09:00 06/19/20 07:48 Ramelteon (Rozerem) 8 mg QHS PRN PO INSOMNIA 06/18/20 01:20 06/18/20 02:09 Simethicone (Mylicon) 80 mg TIDP PRN PO GAS PAIN 06/19/20 08:20 06/19/20 13:27 Sodium Chloride 1,000 ml @ 100 mls/hr Q10H IV 06/17/20 22:10 06/18/20 02:38 DC 06/18/20 02:10 Tamsulosin HCl (Flomax) 0.4 mg DAILY PO 06/18/20 09:00 06/19/20 07:48 Torsemide (Demadex) 50 mg BID@0900,1700 PO 06/18/20 09:00 06/19/20 07:48 Valsartan (Diovan) 160 mg DAILY PO 06/18/20 09:00 06/19/20 07:52 Vancomycin HCl 1000 mg/IV Miscellaneous Supplies 1 each/ Sodium Chloride 270 ml @ 270 mls/hr HD IV 06/19/20 16:00 Allergies Coded Allergies: Penicillins (Verified Allergy, Mild, rash/itching, 06/17/20) Tetracyclines (Verified Allergy, Mild, ITCHING, 06/17/20) Sulfa (Sulfonamide Antibiotics) (Unverified Allergy, Unknown, unknown, 06/17/20) erythromycin base (Unverified Allergy, Unknown, unknown, 06/17/20) minoxidil (Verified Adverse Reaction, Intermediate, ANASARCA, 06/17/20) Contrast Media (Verified Adverse Reaction, Mild, MADE LEG TURN RED, 06/17/20) amlodipine (Verified Adverse Reaction, Mild, FLUID RETENTION, 06/17/20) carvedilol (Verified Adverse Reaction, Mild, FLUID RETENTION, 06/17/20) hydralazine (Verified Adverse Reaction, Mild, FLUID RETENTION, 06/17/20) cephalexin (Unverified Adverse Reaction, Unknown, FLUID RETENTION, 06/17/20) Matilda Farris MD Jun 19, 2020 16:54
[2020-06-19 17:30] VITALS: BP 135/76
[2020-06-19] MEDS: **VANCO AFTER HD** MISC XX SCH (17:46)
[2020-06-19] MEDS: ATORVASTATIN 20 MG TAB PO SCH (20:27)
[2020-06-19 22:00] VITALS: BP 157/70
[2020-06-19] MEDS: RAMELTEON 8 MG TAB (ROZEREM) PO PRN (23:10)
[2020-06-19] MEDS: ACETAMINOPHEN TAB 650MG DOSE (2X325MG) PO PRN (23:10)
[2020-06-20 02:23] VITALS: O2SAT 99
[2020-06-20 06:00] VITALS: BP 160/68
[2020-06-20 07:39] LABS: HEMATOCRIT 33.6 % (42.0-52.0); HEMOGLOBIN 10.6 g/dl (13.5-17.5); MEAN CORPUSCULAR HEMOGLOBIN 31.6 pg (27.0-33.0); MEAN CORPUSCULAR HGB CONC 31.5 g/dl (32.0-36.5); MEAN CORPUSCULAR VOLUME 100.3 fl (80.0-96.0); PLATELET COUNT, AUTOMATED 102 10^3/uL (150-450); RED BLOOD COUNT 3.35 10^6/uL (4.30-6.10); WHITE BLOOD COUNT 3.2 10^3/uL (4.0-10.0)
[2020-06-20 08:05] LABS: CALCIUM LEVEL 8.7 MG/DL (8.8-10.2); CREATININE FOR GFR 3.79 MG/DL (0.70-1.30); GLOMERULAR FILTRATION RATE 16.6 (>42); POTASSIUM SERUM 4.2 MEQ/L (3.5-5.1)
[2020-06-20] MEDS ORDERED: cloNIDine HCL 0.2 MG/24 HR PATCH TOP SCH (09:00)
[2020-06-20] MEDS ORDERED: DARBEPOETIN 200MCG/0.4ML *DIALYSIS* SYRINGE (J0882 PER 1MCG) IV SCH (09:15)
--- NOTE | 2020-06-20 09:17 | REP ---
INDICATION: LLE swelling, redness, known PVD. COMPARISON: 02/14/2020. TECHNIQUE: Duplex ultrasound of the left lower extremity arteries. 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 Ultrasonography of this area identifies focal complex fluid collection measuring 3.5 x 0.6 x 2.0 cm. Soft tissue edema is noted throughout the left lower extremity. There are no significant stenoses identified. Biphasic and triphasic waveforms throughout the left lower extremity. IMPRESSION: No significant stenoses are identified. There is soft tissue edema throughout the left lower extremity. Ultrasonography of a focal palpable area in the left kidd identifies a complex fluid collection. <Electronically signed by Jose Fleming > 06/20/20 0914
[2020-06-20] MEDS: DOCUSATE SODIUM 100MG CAPSULE PO SCH ×2 (09:33→21:09)
[2020-06-20] MEDS: TORSEMIDE (DEMADEX) 50 MG PER 1/2 TAB PO SCH ×2 (09:33→15:43)
[2020-06-20] MEDS: VALSARTAN 80 MG TAB (DIOVAN) PO SCH (09:35)
[2020-06-20] MEDS: PANTOPRAZOLE 40MG TAB (PROTONIX) PO SCH (09:36)
[2020-06-20] MEDS: APIXABAN 2.5 MG TAB (ELIQUIS) PO SCH ×2 (09:36→21:09)
[2020-06-20] MEDS: TAMSULOSIN 0.4 MG CAP PO SCH (09:36)
[2020-06-20] MEDS: CALCITRIOL 0.25 MCG CAP (S0169) PO SCH (09:36)
[2020-06-20] MEDS: allopurinoL 100 MG TAB PO SCH (09:36)
[2020-06-20] MEDS: LEVOTHYROXINE 88MCG TABLET (0.088 MG) PO SCH (09:36)
[2020-06-20] MEDS: MULTIVITAMINS/MINERALS THERAP 1 TAB PO SCH (11:22)
[2020-06-20] MEDS: CLOPIDOGREL 75 MG TAB PO SCH (11:23)
[2020-06-20] MEDS: VANICREAM MOISTURIZING SKIN CREAM 113GM TUBE TOP SCH (11:25)
[2020-06-20 14:00] VITALS: BP 154/72
[2020-06-20] MEDS: **VANCO AFTER HD** MISC XX SCH (15:21)
[2020-06-20] MEDS: LIDOCAINE 5% (LIDODERM) PATCH TD PRN (15:43)
--- NOTE | 2020-06-20 16:13 | IPNPDOC ---
Date Seen The patient was seen on 06/20/20. Progress Note SUBJECTIVE: Severe pain persists with ambulation on left leg, redness does not appear improved. Arterial US showed soft tissue edema, focal complex fluid collection on left kidd- CT with contrast of tib/fib ordered to r/o abscess. Denies chest pain, sob, fevers, chills. OBJECTIVE: PHYSICAL EXAMINATION: VITAL SIGNS: See Below GENERAL APPEARANCE: NAD, resting in bed. AAOx 3 HEENT: No mass or lesion. No scleral icterus or conjunctival erythema. Nares patent. Oral mucosa moist CARDIOVASCULAR: Regular rate, rhythm. No murmurs, rubs or gallops LUNGS: CTAB. No wheezing, rales, rhonchi. CHEST: permacath in right chest ABDOMEN: Soft, non-tender. No tenderness MUSCULOSKELETAL:No joint deformity EXTREMITIES: Area of erythema/discoloration located on the distal LE on kidd, very tender to touch- not much improved over past several days. Another area high up on kidd that is more tender, softer, slightly fluctuant. No drainage or vesicles noted. Pulses present NEUROLOGICAL: CN 2-12 intact, no focal deficits PSYCHIATRIC: Mood and affect appropriate LABORATORY DATA: See below. MICROBIOLOGY: BCx NG at 48 hrs IMAGING: CT of tib/fib with contrast: f/u results LLE arterial US: No significant stenoses are identified. There is soft tissue edema throughout the left lower extremity. Ultrasonography of a focal palpable area in the left kidd identifies a complex fluid collection. Vascular US: No evidence of deep vein thrombosis. There is a subcutaneous lesion anteriorly left lower extremity just below the level of the knee as described above. LL Extremity CT: 1. No CT evidence for an abscess, necrotizing fasciitis, or osteomyelitis in the left knee or left calf. 2. Soft tissue swelling, edema in the subcutaneous tissues, and thickening of the skin in the left knee and left calf, which is compatible with cellulitis. 3. Tricompartmental osteoarthritis and chondrocalcinosis involving the left knee and a moderate left knee joint effusion. ] ASSESSMENT: This is a 75 year old male with PMH of ESRD ON HD, CAD s/p CABG and stenting, NIDDM admitted for LLE cellulitis. PLAN: LLE Cellulitis, r/o cyst vs. abscess -WBC 3.2, afebrile, erythema persist in anterior LLE kidd- not much improved, very tender touch and painful with ambulation -Imaging above, not suspecting arterial cause -ESR and CRP neg -Hx of LLE cellulitis in past treated with abx -F/u CT tib/fib with contrast -C/w pain control, IV vancomycin for now -PT: Recommend home PT upon d/c to ensure safe progression of gait after d/c ESRD on HD -HD 06/21/20 -Nephrology following -Daily labs NIDDM -Stable, monitor glucose. -Holding off on ISS HTN -C/w valsartan, torsemide, clonidine patch CAD s/p CABG stenting, NM -C/w home treatment Hx of HFpEF, not in exacerbation -C/w home medications, including diuretic TIA -Continue plavix, asa Hx a-fib -Rate controlled, continue eliquis HLD -Continue atorvastatin Anxiety -xanax prn Hypothyroidism -Continue levothyroxine Gout - continue allopurinol BPH - Continue flomax GERD - continue pepcid DVT -C/w eliquis DISPOSITION: F/u CT with contrast of tib/fib. C/w PT, plan is discharge home with services when medically improved. VS, I&O, 24H, Fishbone Vital Signs/I&O Vital Signs Date Time Temp Pulse Resp B/P (MAP) Pulse Ox O2 Delivery O2 Flow Rate FiO2 06/20/20 14:00 97.4 72 20 154/72 (99) 100 Room Air I&O- Last 24 Hours up to 6 AM 06/20/20 06:00 Intake Total 840 ml Output Total 2600 ml Balance -1760 ml Laboratory Data 24H LABS Laboratory Tests 2 06/19/20 16:18: Bedside Glucose (Misc Panel) 105 06/19/20 21:29: Bedside Glucose (Misc Panel) 236H 06/20/20 06:57: Nucleated Red Blood Cells % (auto) 0.0, Anion Gap 6L, Glomerular Filtration Rate 16.6L, Calcium Level 8.7L, Vancomycin Level Trough 23.0H CBC/BMP Laboratory Tests 06/20/20 06:57 Microbiology Microbiology 06/17/20 Blood Culture - Preliminary, Resulted No Growth after 48 hours. All Specime... 06/17/20 Blood Culture - Preliminary, Resulted No Growth after 48 hours. All Specime... Current Medications Current Medications Medications (Trade) Dose Ordered Sig/Christian Route PRN Reason Start Time Stop Time Status Last Admin Dose Admin Acetaminophen (Tylenol Tab) 650 mg Q4H PRN PO MILD PAIN OR FEVER 06/17/20 23:35 06/19/20 23:10 Allopurinol (Zyloprim) 100 mg DAILY PO 06/18/20 09:00 06/20/20 09:36 Alprazolam (Xanax) 0.5 mg DAILY PRN PO ANXIETY 06/18/20 03:30 Apixaban (Eliquis) 2.5 mg BID PO 06/18/20 09:00 06/20/20 09:36 Atorvastatin Calcium (Lipitor) 40 mg QHS PO 06/17/20 21:00 06/19/20 20:27 Calcitriol (Rocaltrol) 0.25 mcg TuThSa@0900 PO 06/18/20 09:00 06/20/20 09:36 Clonidine HCl (Rjerjgya-Zme-0) 0.2 ea Th@0900 TOP 06/20/20 09:00 06/20/20 11:24 Clopidogrel Bisulfate (PLAVix) 75 mg DAILY@1200 PO 06/18/20 12:00 06/20/20 11:23 Darbepoetin Horacio (Aranesp (Dialysis Use)) 200 mcg HD IV 06/20/20 09:15 Docusate Sodium (Colace) 100 mg BID PO 06/17/20 21:00 06/20/20 09:33 Emollient Cream (Vanicream) Apply to bilateral feet DAILY TOP 06/19/20 09:00 06/20/20 11:25 Famotidine (Pepcid) 20 mg Q48H PO 06/19/20 09:00 06/19/20 07:48 Heparin Sodium (Heparin) Please refer to ... ASDIRECTED XX 06/19/20 06:40 06/20/20 06:39 DC Heparin Sodium (Heparin) dose as per volume indica... ASDIRECTED PRN IV SEE LABEL COMMENTS 06/19/20 06:40 06/20/20 06:39 DC Home Med (Med Rec Complete!) ASDIRECTED XX 06/18/20 03:20 06/18/20 03:26 DC Levothyroxine Sodium (Synthroid) 88 mcg DAILY PO 06/18/20 09:00 06/20/20 09:36 Lidocaine (Lidoderm Patch) 1 patch DAILY PRN TD PAIN 06/18/20 03:30 06/20/20 15:43 Magnesium Hydroxide (Milk Of Magnesia) 30 ml DAILY PRN PO CONSTIPATION 06/17/20 23:35 Morphine Sulfate (Morphine Sulfate Inj) 2 mg Q6H PRN IV MODERATE PAIN (PS 5-7) 06/18/20 03:10 Multivitamins (Theragram-M) 1 tab DAILY PO 06/18/20 09:00 06/19/20 07:48 Nitroglycerin (Nitrostat (1/ 150)) 0.4 mg Q5M PRN SL CHEST PAIN 06/18/20 03:30 Non-Formulary Medication ( See Comment Field Below ) CHECK TO SEE IF THE PATIENT... DAILY@1600 XX 06/19/20 16:00 06/19/20 17:46 Non-Formulary Medication ( See Comment Field Below ) REMOVE LIDODERM PATCH DAILYPRN PRN XX SEE LABEL COMMENTS 06/18/20 03:40 Non-Formulary Medication ( See Comment Field Below ) VANCO INTERMIT. DOSING ASDIRECTED XX 06/18/20 02:35 06/18/20 14:25 DC Pantoprazole Sodium (Protonix) 40 mg DAILY PO 06/18/20 09:00 06/20/20 09:36 Ramelteon (Rozerem) 8 mg QHS PRN PO INSOMNIA 06/18/20 01:20 06/19/20 23:10 Simethicone (Mylicon) 80 mg TIDP PRN PO GAS PAIN 06/19/20 08:20 06/19/20 13:27 Sodium Chloride 1,000 ml @ 100 mls/hr Q10H IV 06/17/20 22:10 06/18/20 02:38 DC 06/18/20 02:10 Tamsulosin HCl (Flomax) 0.4 mg DAILY PO 06/18/20 09:00 06/20/20 09:36 Torsemide (Demadex) 50 mg BID@0900,1700 PO 06/18/20 09:00 06/20/20 15:43 Valsartan (Diovan) 160 mg DAILY PO 06/18/20 09:00 06/20/20 09:35 Vancomycin HCl 1000 mg/IV Miscellaneous Supplies 1 each/ Sodium Chloride 270 ml @ 270 mls/hr HD IV 06/19/20 16:00 06/19/20 17:45 Allergies Coded Allergies: Penicillins (Verified Allergy, Mild, rash/itching, 06/17/20) Tetracyclines (Verified Allergy, Mild, ITCHING, 06/17/20) Sulfa (Sulfonamide Antibiotics) (Unverified Allergy, Unknown, unknown, 06/17/20) erythromycin base (Unverified Allergy, Unknown, unknown, 06/17/20) minoxidil (Verified Adverse Reaction, Intermediate, ANASARCA, 06/17/20) Contrast Media (Verified Adverse Reaction, Mild, MADE LEG TURN RED, 06/17/20) amlodipine (Verified Adverse Reaction, Mild, FLUID RETENTION, 06/17/20) carvedilol (Verified Adverse Reaction, Mild, FLUID RETENTION, 06/17/20) hydralazine (Verified Adverse Reaction, Mild, FLUID RETENTION, 06/17/20) cephalexin (Unverified Adverse Reaction, Unknown, FLUID RETENTION, 06/17/20) Matilda Farris MD Jun 20, 2020 16:13
[2020-06-20] MEDS ORDERED: methylPREDNISolone 125MG 2ML VIAL IV ONE (16:25)
[2020-06-20] MEDS ORDERED: FAMOTIDINE 20 MG TAB PO ONE (16:25)
[2020-06-20] MEDS ORDERED: diphenhydrAMINE 50MG/ML VIAL (J1200) IV ONE (16:25)
[2020-06-20] MEDS ORDERED: ISOVUE-370 76% 100ML VIAL As Ordered ONE (16:26)
[2020-06-20] MEDS ORDERED: DEXTROSE 50% 50 ML SYRINGE IV PRN (17:50)
[2020-06-20] MEDS ORDERED: GLUCOSE 4GM CHEW TABLET PO PRN (17:50)
[2020-06-20] MEDS ORDERED: GLUCAGON INJ 1MG VIAL SC PRN (17:50)
[2020-06-20] MEDS: HumaLOG INSULIN (NovoLOG) PER UNIT SC SCH ×2 (18:37→20:14)
--- NOTE | 2020-06-20 18:40 | IPNPDOC ---
Subjective General Date/Time Seen The patient was seen on 06/20/20 at 18:27. Subject Chief Complaint/History The patient is a 75-year-old male admitted with a reason for visit of Cellulitis Of L Lower Extremity,Esrd. SUBJECTIVE Mr. Willson was seen and examined sitting on the edge of the bedside this morning. He is observed working with physical therapy walking around his room. He still requires the use of the walker. His left leg is less swollen today but still red and painful to the touch. He has no complaints today. No issues reported overnight. Patient underwent CT Angiography of the LLE today and apparently suffered a contrast allergy. He was given Benadryl, Famotidine and Solumedrol this afternoon. OBJECTIVE PHYSICAL EXAMINATION: VITAL SIGNS: see below GENERAL: alert and oriented, in no apparent distress, pleasant and conversant in full sentences. HEENT: PERRL, EOMI, Oral mucous membranes are moist without lesions. NECK: The patient has no noted JVD. No adenopathy is appreciated. No thyromegaly CHEST/LUNGS: Lungs are clear bilaterally without rhonchi, rales, or wheezes. There is no subcutaneous air appreciated. There is no tenderness to the chest wall. HEART: irregularly irregular. No murmurs, rubs, or gallops are appreciated. Distal pulses are 2+. No carotid bruits appreciated. ABDOMEN: Soft, nontender, and nondistended. Bowel sounds are positive. No organomegaly is appreciated. No masses are appreciated. There are no peritoneal signs. There is no Clayton sign. EXTREMITIES: There is trace edema in the left lower extremity. There is a large (10 x 12 cm) area of erythema which has been outlined on the left lower leg, anterior surface. The area is slightly warm to the touch. There is an area on the kidd just below the knee with 3 hard discrete notches that is very painful to touch. Right lower extremity has no edema. Pulses are intact SKIN: See above PSYCHIATRIC: AAO x 3, normal mood/affect NEUROLOGIC: 5 out of 5 strength in all or extremities, no other obvious focal deficits LABORATORY DATA: Please see below. IMAGING: US DUPLEX LLE: IMPRESSION: No evidence of deep vein thrombosis. There is a subcutaneous lesion anteriorly left lower extremity just below the level of the knee as described above. CT ARTEROGRAM LLE: IMPRESSION: No significant stenoses are identified. There is soft tissue edema throughout the left lower extremity. Ultrasonography of a focal palpable area in the left kidd identifies a complex fluid collection. ASSESSMENT/PLAN: This is a 75-year-old male with end-stage renal disease on dialysis, hypertension, CAD who presents with about 1 week of worsening left lower extremity pain, difficulty ambulating, redness and erythema of the skin concerning for cellulitis. Nephrology service consulted for hemodialysis management. 1. End-stage renal disease on hemodialysis: -Plan for Hemodialysis again tomorrow 2. Anemia of chronic kidney disease: -Hemoglobin stable at 10.6 today 3. Renovascular hypertension: -Continue home dose of clonidine -Continue home valsartan 160 mg by mouth daily 4. Secondary hyperparathyroidism: -Calcium 8.7 today -Continue calcitriol 5. Left lower extremity cellulitis: -Agree with current empiric vancomycin regimen 6. CAD, recent NH, history of CABG: -Continue aspirin, Plavix, statin 7. History of Atrial fibrillation: -Rate controlled at this time, continue Eliquis 8. History of diastolic CHF, preserved EF: -Continue Torsemide 50mg BID DISPOSITION: Continue IV antibiotic therapy, hemodialysis again tomorrow Current Medications Current Medications Current Medications Medications (Trade) Dose Ordered Sig/Christian Route PRN Reason Start Time Stop Time Status Last Admin Dose Admin Acetaminophen (Tylenol Tab) 650 mg Q4H PRN PO MILD PAIN OR FEVER 06/17/20 23:35 06/19/20 23:10 Allopurinol (Zyloprim) 100 mg DAILY PO 06/18/20 09:00 06/20/20 09:36 Alprazolam (Xanax) 0.5 mg DAILY PRN PO ANXIETY 06/18/20 03:30 Apixaban (Eliquis) 2.5 mg BID PO 06/18/20 09:00 06/20/20 09:36 Atorvastatin Calcium (Lipitor) 40 mg QHS PO 06/17/20 21:00 06/19/20 20:27 Calcitriol (Rocaltrol) 0.25 mcg TuThSa@0900 PO 06/18/20 09:00 06/20/20 09:36 Clonidine HCl (Vhcxijmw-Apt-5) 0.2 ea Th@0900 TOP 06/20/20 09:00 06/20/20 11:24 Clopidogrel Bisulfate (PLAVix) 75 mg DAILY@1200 PO 06/18/20 12:00 06/20/20 11:23 Darbepoetin Horacio (Aranesp (Dialysis Use)) 200 mcg HD IV 06/20/20 09:15 Dextrose (Dextrose 50%) 25 ml ASDIRECTED PRN IV SEE LABEL COMMENTS 06/20/20 17:50 Docusate Sodium (Colace) 100 mg BID PO 06/17/20 21:00 06/20/20 09:33 Emollient Cream (Vanicream) Apply to bilateral feet DAILY TOP 06/19/20 09:00 06/20/20 11:25 Famotidine (Pepcid) 20 mg Q48H PO 06/19/20 09:00 06/19/20 07:48 Glucagon (Glucagon) 1 mg ASDIRECTED PRN SC SEE LABEL COMMENTS 06/20/20 17:50 Glucose (Glucose) 16 GM ASDIRECTED PRN PO SEE LABEL COMMENTS 06/20/20 17:50 Heparin Sodium (Heparin) Please refer to ... ASDIRECTED XX 06/19/20 06:40 06/20/20 06:39 DC Heparin Sodium (Heparin) dose as per volume indica... ASDIRECTED PRN IV SEE LABEL COMMENTS 06/19/20 06:40 06/20/20 06:39 DC Home Med (Med Rec Complete!) ASDIRECTED XX 06/18/20 03:20 06/18/20 03:26 DC Insulin Human Lispro (HumaLOG INSULIN) See Protocol Table AC SC 06/20/20 17:30 Insulin Human Lispro (HumaLOG INSULIN) See Protocol Table QHS SC 06/20/20 21:00 Levothyroxine Sodium (Synthroid) 88 mcg DAILY PO 06/18/20 09:00 06/20/20 09:36 Lidocaine (Lidoderm Patch) 1 patch DAILY PRN TD PAIN 06/18/20 03:30 06/20/20 15:43 Magnesium Hydroxide (Milk Of Magnesia) 30 ml DAILY PRN PO CONSTIPATION 06/17/20 23:35 Morphine Sulfate (Morphine Sulfate Inj) 2 mg Q6H PRN IV MODERATE PAIN (PS 5-7) 06/18/20 03:10 Multivitamins (Theragram-M) 1 tab DAILY PO 06/18/20 09:00 06/19/20 07:48 Nitroglycerin (Nitrostat (1/ 150)) 0.4 mg Q5M PRN SL CHEST PAIN 06/18/20 03:30 Non-Formulary Medication ( See Comment Field Below ) CHECK TO SEE IF THE PATIENT... DAILY@1600 XX 06/19/20 16:00 06/19/20 17:46 Non-Formulary Medication ( See Comment Field Below ) REMOVE LIDODERM PATCH DAILYPRN PRN XX SEE LABEL COMMENTS 06/18/20 03:40 Non-Formulary Medication ( See Comment Field Below ) VANCO INTERMIT. DOSING ASDIRECTED XX 06/18/20 02:35 06/18/20 14:25 DC Pantoprazole Sodium (Protonix) 40 mg DAILY PO 06/18/20 09:00 06/20/20 09:36 Ramelteon (Rozerem) 8 mg QHS PRN PO INSOMNIA 06/18/20 01:20 06/19/20 23:10 Simethicone (Mylicon) 80 mg TIDP PRN PO GAS PAIN 06/19/20 08:20 06/19/20 13:27 Sodium Chloride 1,000 ml @ 100 mls/hr Q10H IV 06/17/20 22:10 06/18/20 02:38 DC 06/18/20 02:10 Tamsulosin HCl (Flomax) 0.4 mg DAILY PO 06/18/20 09:00 06/20/20 09:36 Torsemide (Demadex) 50 mg BID@0900,1700 PO 06/18/20 09:00 06/20/20 15:43 Valsartan (Diovan) 160 mg DAILY PO 06/18/20 09:00 06/20/20 09:35 Vancomycin HCl 1000 mg/IV Miscellaneous Supplies 1 each/ Sodium Chloride 270 ml @ 270 mls/hr HD IV 06/19/20 16:00 06/19/20 17:45 Allergies Coded Allergies: Penicillins (Verified Allergy, Mild, rash/itching, 06/17/20) Tetracyclines (Verified Allergy, Mild, ITCHING, 06/17/20) Sulfa (Sulfonamide Antibiotics) (Unverified Allergy, Unknown, unknown, 06/17/20) erythromycin base (Unverified Allergy, Unknown, unknown, 06/17/20) minoxidil (Verified Adverse Reaction, Intermediate, ANASARCA, 06/17/20) Contrast Media (Verified Adverse Reaction, Mild, MADE LEG TURN RED, 06/17/20) amlodipine (Verified Adverse Reaction, Mild, FLUID RETENTION, 06/17/20) carvedilol (Verified Adverse Reaction, Mild, FLUID RETENTION, 06/17/20) hydralazine (Verified Adverse Reaction, Mild, FLUID RETENTION, 06/17/20) cephalexin (Unverified Adverse Reaction, Unknown, FLUID RETENTION, 06/17/20) VS,Fishbone, I+O VS, Fishbone, I+O Laboratory Tests 06/20/20 06:57 Vital Signs Date Time Temp Pulse Resp B/P (MAP) Pulse Ox O2 Delivery O2 Flow Rate FiO2 06/20/20 14:00 97.4 72 20 154/72 (99) 100 Room Air I&O- Last 24 Hours up to 6 AM 06/20/20 06:00 Intake Total 840 ml Output Total 2600 ml Balance -1760 ml GME ATTESTATION GME ATTESTATION My faculty preceptor for this patient encounter was physically present during the encounter and was fully available. All aspects of the patient interview, examination, medical decision making process, and medical care plan development were reviewed and approved by the faculty preceptor. The faculty preceptor is aware and concurs with the plan as stated in the body of this note and will attest to such by his/her cosignature. Attending Note Attending Note ESRD on HD HFpEF Lt leg cellulitis and fluid collection CAD s/p NH Anemia in ESRD OK to do CT of Lt leg today. HD in AM. Cont Abx. YUMIKO OLVERA MD Jun 20, 2020 18:39 DANY JORDAN MD Jun 20, 2020 22:39
--- NOTE | 2020-06-20 19:22 | REPVR ---
PROCEDURE INFORMATION: Exam: CT Left Lower Extremity Without Contrast; Lower Leg Exam date and time: 06/20/2020 6:27 PM Age: 75 years old Clinical indication: Cellulitis; Lower leg; Left; Additional info: R/O abscess on left kidd TECHNIQUE: Imaging protocol: CT of the Left lower extremity without contrast was performed. Exam focused on the lower leg. Radiation optimization: All CT scans at this facility use at least one of these dose optimization techniques: automated exposure control; mA and/or kV adjustment per patient size (includes targeted exams where dose is matched to clinical indication); or iterative reconstruction. COMPARISON: CT-Knee WITHOUT CONTRAST LEFT 06/17/2020 11:43 PM FINDINGS: Bones/joints: A large joint effusion is seen at the knee. There are degenerative changes at the knee. There is an old healed medial malleolus fracture fragment. No acute fracture is visualized. No destructive osseous lesions are seen. There are no findings of osteomyelitis. There is no periosteal new bone formation. Soft tissues: There is diffuse superficial soft tissue edema throughout the left lower leg. There is no evidence of necrotizing fasciitis. There is no evidence of myonecrosis. Vasculature: Atherosclerotic vascular disease is noted, with three-vessel runoff to the ankle. IMPRESSION: Diffuse superficial soft tissue edema throughout the left lower leg, consistent with the history of cellulitis. No evidence of necrotizing fasciitis, myonecrosis or osteomyelitis. Electronically signed by: Candelaria Lemon On 06/20/2020 19:22:27 PM
[2020-06-20] MEDS: ATORVASTATIN 20 MG TAB PO SCH (21:09)
[2020-06-20 22:00] VITALS: BP 159/77
[2020-06-21] MEDS: RAMELTEON 8 MG TAB (ROZEREM) PO PRN ×2 (00:51→22:56)
[2020-06-21 06:00] VITALS: BP 153/75
[2020-06-21 06:37] LABS: HEMATOCRIT 30.1 % (42.0-52.0); HEMOGLOBIN 9.9 g/dl (13.5-17.5); MEAN CORPUSCULAR HEMOGLOBIN 32.1 pg (27.0-33.0); MEAN CORPUSCULAR HGB CONC 32.9 g/dl (32.0-36.5); MEAN CORPUSCULAR VOLUME 97.7 fl (80.0-96.0); PLATELET COUNT, AUTOMATED 103 10^3/uL (150-450); RED BLOOD COUNT 3.08 10^6/uL (4.30-6.10); WHITE BLOOD COUNT 3.2 10^3/uL (4.0-10.0)
[2020-06-21 07:07] LABS: CALCIUM LEVEL 8.8 MG/DL (8.8-10.2); CREATININE FOR GFR 4.62 MG/DL (0.70-1.30); GLOMERULAR FILTRATION RATE 13.2 (>42); POTASSIUM SERUM 4.3 MEQ/L (3.5-5.1); VANCOMYCIN RANDOM 23.2 UG/ML
[2020-06-21] MEDS: TORSEMIDE (DEMADEX) 50 MG PER 1/2 TAB PO SCH ×2 (07:26→17:47)
[2020-06-21] MEDS: FAMOTIDINE 20 MG TAB PO SCH (07:26)
[2020-06-21] MEDS: PANTOPRAZOLE 40MG TAB (PROTONIX) PO SCH (07:26)
[2020-06-21] MEDS: LEVOTHYROXINE 88MCG TABLET (0.088 MG) PO SCH (07:26)
[2020-06-21] MEDS: DOCUSATE SODIUM 100MG CAPSULE PO SCH ×2 (07:26→20:45)
[2020-06-21] MEDS: APIXABAN 2.5 MG TAB (ELIQUIS) PO SCH ×2 (07:26→20:45)
[2020-06-21] MEDS: TAMSULOSIN 0.4 MG CAP PO SCH (07:26)
[2020-06-21] MEDS: MULTIVITAMINS/MINERALS THERAP 1 TAB PO SCH (07:26)
[2020-06-21] MEDS: allopurinoL 100 MG TAB PO SCH (07:26)
[2020-06-21] MEDS: VALSARTAN 80 MG TAB (DIOVAN) PO SCH (07:27)
[2020-06-21] MEDS: HumaLOG INSULIN (NovoLOG) PER UNIT SC SCH ×4 (08:03→20:27)
[2020-06-21] MEDS: VANICREAM MOISTURIZING SKIN CREAM 113GM TUBE TOP SCH (08:11)
[2020-06-21] MEDS: MORPHINE 2 MG/ML 1ML VIAL (J2270) IV PRN (08:11)
[2020-06-21 08:53] LABS: C REACTIVE PROTEIN QUANTITATIV 1.25 MG/DL (0.00-0.30)
[2020-06-21 09:21] LABS: ERYTHROCYTE SEDIMENTATION RATE 33 mm/hr (0-20)
[2020-06-21] MEDS: LIDOCAINE 5% (LIDODERM) PATCH TD PRN (11:16)
--- NOTE | 2020-06-21 12:13 | IPNPDOC ---
Subjective General Date/Time Seen The patient was seen on 06/21/20 at 12:07. Subject Chief Complaint/History The patient is a 75-year-old male admitted with a reason for visit of Cellulitis Of L Lower Extremity,Esrd. SUBJECTIVE Mr. Willson was seen and examined at the bedside this morning. He states his leg feels somewhat better, he has noticed less swelling, and he can now touch his leg without it being so painful. He denies any other issues, including nausea/vomiting/diarrhea at this time. He is working well with PT and OT. He will go for HD treatment today. OBJECTIVE PHYSICAL EXAMINATION: VITAL SIGNS: see below GENERAL: alert and oriented, in no apparent distress, pleasant and conversant in full sentences. HEENT: PERRL, EOMI, Oral mucous membranes are moist without lesions. NECK: The patient has no noted JVD. No adenopathy is appreciated. No thyromegaly CHEST/LUNGS: Lungs are clear bilaterally without rhonchi, rales, or wheezes. There is no subcutaneous air appreciated. There is no tenderness to the chest wall. HEART: irregularly irregular. No murmurs, rubs, or gallops are appreciated. Distal pulses are 2+. No carotid bruits appreciated. ABDOMEN: Soft, nontender, and nondistended. Bowel sounds are positive. No organomegaly is appreciated. No masses are appreciated. There are no peritoneal signs. There is no Safford sign. EXTREMITIES: There is trace edema in the left lower extremity. There is a large (10 x 12 cm) area of erythema which has been outlined on the left lower leg, anterior surface. The area is slightly warm to the touch. There is an area on the kidd just below the knee with 3 hard discrete notches. Right lower extremity has no edema. Pulses are intact SKIN: See above PSYCHIATRIC: AAO x 3, normal mood/affect NEUROLOGIC: 5 out of 5 strength in all or extremities, no other obvious focal deficits LABORATORY DATA: Please see below. IMAGING: US DUPLEX LLE: IMPRESSION: No evidence of deep vein thrombosis. There is a subcutaneous lesion anteriorly left lower extremity just below the level of the knee as described above. CT ARTEROGRAM LLE: IMPRESSION: No significant stenoses are identified. There is soft tissue edema throughout the left lower extremity. Ultrasonography of a focal palpable area in the left kidd identifies a complex fluid collection. ASSESSMENT/PLAN: This is a 75-year-old male with end-stage renal disease on dialysis, hypertension, CAD who presents with about 1 week of worsening left lower extremity pain, difficulty ambulating, redness and erythema of the skin concerning for cellulitis. Nephrology service consulted for hemodialysis managem ent. 1. End-stage renal disease on hemodialysis: -Plan for Hemodialysis again today -Electrolytes WNL 2. Anemia of chronic kidney disease: -Hemoglobin stable at 9.9 today -Continue Aranesp with HD 3. Renovascular hypertension: -Continue home dose of clonidine -Continue home valsartan 160 mg by mouth daily 4. Secondary hyperparathyroidism: -Calcium 8.8 today -Continue calcitriol 5. Left lower extremity cellulitis: -Agree with current empiric vancomycin regimen -ID consulted for only minimal improvement on Vancomycin. CRP found to be elevated at 1.25, ESR 33 -CT Angio of LLE showed swelling/edema but no obvious fluid collection 6. CAD, recent PA, history of CABG: -Continue aspirin, Plavix, statin 7. History of Atrial fibrillation: -Rate controlled at this time, continue Eliquis 8. History of diastolic CHF, preserved EF: -Continue Torsemide 50mg BID DISPOSITION: Continue IV antibiotic therapy, hemodialysis today Current Medications Current Medications Current Medications Medications (Trade) Dose Ordered Sig/Christian Route PRN Reason Start Time Stop Time Status Last Admin Dose Admin Acetaminophen (Tylenol Tab) 650 mg Q4H PRN PO MILD PAIN OR FEVER 06/17/20 23:35 06/19/20 23:10 Allopurinol (Zyloprim) 100 mg DAILY PO 06/18/20 09:00 06/21/20 07:26 Alprazolam (Xanax) 0.5 mg DAILY PRN PO ANXIETY 06/18/20 03:30 Apixaban (Eliquis) 2.5 mg BID PO 06/18/20 09:00 06/21/20 07:26 Atorvastatin Calcium (Lipitor) 40 mg QHS PO 06/17/20 21:00 06/20/20 21:09 Calcitriol (Rocaltrol) 0.25 mcg TuThSa@0900 PO 06/18/20 09:00 06/20/20 09:36 Clonidine HCl (Umojpsfv-Bec-1) 0.2 ea Th@0900 TOP 06/20/20 09:00 06/20/20 11:24 Clopidogrel Bisulfate (PLAVix) 75 mg DAILY@1200 PO 06/18/20 12:00 06/20/20 11:23 Darbepoetin Horacio (Aranesp (Dialysis Use)) 200 mcg HD IV 06/20/20 09:15 Dextrose (Dextrose 50%) 25 ml ASDIRECTED PRN IV SEE LABEL COMMENTS 06/20/20 17:50 Docusate Sodium (Colace) 100 mg BID PO 06/17/20 21:00 06/21/20 07:26 Emollient Cream (Vanicream) Apply to bilateral feet DAILY TOP 06/19/20 09:00 06/21/20 08:11 Famotidine (Pepcid) 20 mg Q48H PO 06/19/20 09:00 06/21/20 07:26 Glucagon (Glucagon) 1 mg ASDIRECTED PRN SC SEE LABEL COMMENTS 06/20/20 17:50 Glucose (Glucose) 16 GM ASDIRECTED PRN PO SEE LABEL COMMENTS 06/20/20 17:50 Heparin Sodium (Heparin) Please refer to ... ASDIRECTED XX 06/19/20 06:40 06/20/20 06:39 DC Heparin Sodium (Heparin) Please refer to ... ASDIRECTED XX 06/21/20 07:05 06/22/20 07:04 Heparin Sodium (Heparin) dose as per volume indica... ASDIRECTED PRN IV SEE LABEL COMMENTS 06/19/20 06:40 06/20/20 06:39 DC Heparin Sodium (Heparin) dose as per volume indica... ASDIRECTED PRN IV SEE LABEL COMMENTS 06/21/20 07:05 06/22/20 07:04 Home Med (Med Rec Complete!) ASDIRECTED XX 06/18/20 03:20 06/18/20 03:26 DC Insulin Human Lispro (HumaLOG INSULIN) See Protocol Table AC SC 06/20/20 17:30 06/21/20 08:03 Insulin Human Lispro (HumaLOG INSULIN) See Protocol Table QHS SC 06/20/20 21:00 Levothyroxine Sodium (Synthroid) 88 mcg DAILY PO 06/18/20 09:00 06/21/20 07:26 Lidocaine (Lidoderm Patch) 1 patch DAILY PRN TD PAIN 06/18/20 03:30 06/21/20 11:16 Magnesium Hydroxide (Milk Of Magnesia) 30 ml DAILY PRN PO CONSTIPATION 06/17/20 23:35 Morphine Sulfate (Morphine Sulfate Inj) 2 mg Q6H PRN IV MODERATE PAIN (PS 5-7) 06/18/20 03:10 06/21/20 08:11 Multivitamins (Theragram-M) 1 tab DAILY PO 06/18/20 09:00 06/21/20 07:26 Nitroglycerin (Nitrostat (1/ 150)) 0.4 mg Q5M PRN SL CHEST PAIN 06/18/20 03:30 Non-Formulary Medication ( See Comment Field Below ) CHECK TO SEE IF THE PATIENT... DAILY@1600 XX 06/19/20 16:00 06/19/20 17:46 Non-Formulary Medication ( See Comment Field Below ) REMOVE LIDODERM PATCH DAILYPRN PRN XX SEE LABEL COMMENTS 06/18/20 03:40 Non-Formulary Medication ( See Comment Field Below ) [facility] DOSING ASDIRECTED XX 06/18/20 02:35 06/18/20 14:25 DC Pantoprazole Sodium (Protonix) 40 mg DAILY PO 06/18/20 09:00 06/21/20 07:26 Ramelteon (Rozerem) 8 mg QHS PRN PO INSOMNIA 06/18/20 01:20 06/21/20 00:51 Simethicone (Mylicon) 80 mg TIDP PRN PO GAS PAIN 06/19/20 08:20 06/19/20 13:27 Sodium Chloride 1,000 ml @ 100 mls/hr Q10H IV 06/17/20 22:10 06/18/20 02:38 DC 06/18/20 02:10 Tamsulosin HCl (Flomax) 0.4 mg DAILY PO 06/18/20 09:00 06/21/20 07:26 Torsemide (Demadex) 50 mg BID@0900,1700 PO 06/18/20 09:00 06/21/20 07:26 Valsartan (Diovan) 160 mg DAILY PO 06/18/20 09:00 06/21/20 07:27 Vancomycin HCl 1000 mg/IV Miscellaneous Supplies 1 each/ Sodium Chloride 270 ml @ 270 mls/hr HD IV 06/19/20 16:00 06/19/20 17:45 Allergies Coded Allergies: Penicillins (Verified Allergy, Mild, rash/itching, 06/17/20) Tetracyclines (Verified Allergy, Mild, ITCHING, 06/17/20) Sulfa (Sulfonamide Antibiotics) (Unverified Allergy, Unknown, unknown, 06/17/20) erythromycin base (Unverified Allergy, Unknown, unknown, 06/17/20) minoxidil (Verified Adverse Reaction, Intermediate, ANASARCA, 06/17/20) Contrast Media (Verified Adverse Reaction, Mild, MADE LEG TURN RED, 06/17/20) amlodipine (Verified Adverse Reaction, Mild, FLUID RETENTION, 06/17/20) carvedilol (Verified Adverse Reaction, Mild, FLUID RETENTION, 06/17/20) hydralazine (Verified Adverse Reaction, Mild, FLUID RETENTION, 06/17/20) cephalexin (Unverified Adverse Reaction, Unknown, FLUID RETENTION, 06/17/20) VS,Fishbone, I+O VS, Fishbone, I+O Laboratory Tests 06/21/20 06:23 Vital Signs Date Time Temp Pulse Resp B/P (MAP) Pulse Ox O2 Delivery O2 Flow Rate FiO2 06/21/20 08:21 14 Room Air 06/21/20 07:27 153/75 06/21/20 06:00 97.0 69 97 I&O- Last 24 Hours up to 6 AM 06/21/20 05:59 Intake Total 2120 ml Output Total 501 ml Balance 1619 ml GME ATTESTATION GME ATTESTATION My faculty preceptor for this patient encounter was physically present during the encounter and was fully available. All aspects of the patient interview, examination, medical decision making process, and medical care plan development were reviewed and approved by the faculty preceptor. The faculty preceptor is aware and concurs with the plan as stated in the body of this note and will attest to such by his/her cosignature. Attending Note Attending Note ESRD on HD Cellulitis Lt leg HFpEF Anemia in ESRD Afib, CAD, PA s/p Stent HD in AM. Abx as per ID. fluid management with HD. YUMIKO OLVERA MD Jun 21, 2020 12:13 DANY JORDAN MD Jun 21, 2020 21:52
[2020-06-21 15:39] LABS: URIC ACID 4.7 MG/DL (3.5-7.2)
[2020-06-21] MEDS: **VANCO AFTER HD** MISC XX SCH (16:00)
--- NOTE | 2020-06-21 16:27 | IPNPDOC ---
Date Seen The patient was seen on 06/21/20. Progress Note SUBJECTIVE: Decreased redness, tenderness on exam today. Poss 2/2 to steroids administered for contrasted study 06/20/[address] improvement with [address]x. CT LLE with contrast: STS only. Consulted ID, suggested stopping vancomycin and starting PO zyvox. Complains of continues severe LLE pain with ambulation. Denies chest pain, sob, fevers, chills. OBJECTIVE: PHYSICAL EXAMINATION: VITAL SIGNS: See Below GENERAL APPEARANCE: NAD, resting in bed. AAOx 3 HEENT: No mass or lesion. No scleral icterus or conjunctival erythema. Nares patent. Oral mucosa moist CARDIOVASCULAR: Regular rate, rhythm. No murmurs, rubs or gallops LUNGS: CTAB. No wheezing, rales, rhonchi. CHEST: permacath in right chest ABDOMEN: Soft, non-tender. No tenderness MUSCULOSKELETAL:No joint deformity EXTREMITIES: Area of erythema/discoloration located on the distal LE on kidd, tenderness much improved today. Another area high up on kidd that is more tender, softer, less swollen and less fluctuant. No drainage or vesicles noted. Pulses present NEUROLOGICAL: CN 2-12 intact, no focal deficits PSYCHIATRIC: Mood and affect appropriate LABORATORY DATA: See below. MICROBIOLOGY: BCx NG at 48 hrs IMAGING: CT of tib/fib with contrast: Diffuse superficial soft tissue edema throughout the left lower leg, consistent with the history of cellulitis. No evidence of necrotizing fasciitis, myonecrosis or osteomyelitis. LLE arterial US: No significant stenoses are identified. There is soft tissue edema throughout the left lower extremity. Ultrasonography of a focal palpable area in the left kidd identifies a complex fluid collection. Vascular US: No evidence of deep vein thrombosis. There is a subcutaneous lesion anteriorly left lower extremity just below the level of the knee as described above. LL Extremity CT: 1. No CT evidence for an abscess, necrotizing fasciitis, or osteomyelitis in the left knee or left calf. 2. Soft tissue swelling, edema in the subcutaneous tissues, and thickening of the skin in the left knee and left calf, which is compatible with cellulitis. 3. Tricompartmental osteoarthritis and chondrocalcinosis involving the left knee and a moderate left knee joint effusion. ] ASSESSMENT: This is a 75 year old male with PMH of ESRD ON HD, CAD s/p CABG and stenting, NIDDM admitted for LLE cellulitis. PLAN: LLE Cellulitis -WBC 3.2, afebrile, erythema and tenderness decreased today significantly. Possibly 2/2 to steroids given 06/20/20? -Imaging above, no abscess -ESR and CRP slightly increased today -Hx of LLE cellulitis in past treated with abx -C/w pain control. -D/c IV vancomycin and will start PO zyvox per ID -PT: Recommend home PT upon d/c to ensure safe progression of gait after d/c -ID consulted, f/u other recommendations ESRD on HD -HD 06/21/20 -Nephrology following -Daily labs NIDDM -Stable, monitor glucose. -Holding off on ISS HTN -C/w valsartan, torsemide, clonidine patch CAD s/p CABG stenting, HI -C/w home treatment Hx of HFpEF, not in exacerbation -C/w home medications, including diuretic TIA -Continue plavix, asa Hx a-fib -Rate controlled, continue eliquis HLD -Continue atorvastatin Anxiety -xanax prn Hypothyroidism -Continue levothyroxine Gout - continue allopurinol BPH - Continue flomax GERD - continue pepcid DVT -C/w eliquis DISPOSITION: ID consulted, recommended abx changed above and watching. C/w PT, plan is discharge home with services when medically improved. VS, I&O, 24H, Sadiq Vital Signs/I&O Vital Signs Date Time Temp Pulse Resp B/P (MAP) Pulse Ox O2 Delivery O2 Flow Rate FiO2 06/21/20 08:21 14 Room Air 06/21/20 07:27 153/75 06/21/20 06:00 97.0 69 97 I&O- Last 24 Hours up to 6 AM 06/21/20 06:00 Intake Total 2120 ml Output Total 501 ml Balance 1619 ml Laboratory Data 24H LABS Laboratory Tests 2 06/20/20 16:58: Bedside Glucose (Misc Panel) 187H 06/20/20 20:11: Bedside Glucose (Misc Panel) 115H 06/21/20 06:23: Nucleated Red Blood Cells % (auto) 0.0, Erythrocyte Sedimentation Rate 33H, Anion Gap 8, Glomerular Filtration Rate 13.2L, Uric Acid 4.7, Calcium Level 8.8, C-Reactive Protein, Quantitative 1.25H, Random Vancomycin Level 23.2 06/21/20 14:35: Bedside Glucose (Misc Panel) 108 CBC/BMP Laboratory Tests 06/21/20 06:23 Microbiology Microbiology 06/17/20 Blood Culture - Preliminary, Resulted No Growth after 72 hours. All specime... 06/17/20 Blood Culture - Preliminary, Resulted No Growth after 72 hours. All specime... Current Medications Current Medications Medications (Trade) Dose Ordered Sig/Christian Route PRN Reason Start Time Stop Time Status Last Admin Dose Admin Acetaminophen (Tylenol Tab) 650 mg Q4H PRN PO MILD PAIN OR FEVER 06/17/20 23:35 06/19/20 23:10 Allopurinol (Zyloprim) 100 mg DAILY PO 06/18/20 09:00 06/21/20 07:26 Alprazolam (Xanax) 0.5 mg DAILY PRN PO ANXIETY 06/18/20 03:30 Apixaban (Eliquis) 2.5 mg BID PO 06/18/20 09:00 06/21/20 07:26 Atorvastatin Calcium (Lipitor) 40 mg QHS PO 06/17/20 21:00 06/20/20 21:09 Calcitriol (Rocaltrol) 0.25 mcg TuThSa@0900 PO 06/18/20 09:00 06/20/20 09:36 Clonidine HCl (Aqqunzik-Fmt-6) 0.2 ea Th@0900 TOP 06/20/20 09:00 06/20/20 11:24 Clopidogrel Bisulfate (PLAVix) 75 mg DAILY@1200 PO 06/18/20 12:00 06/20/20 11:23 Darbepoetin Horacio (Aranesp (Dialysis Use)) 200 mcg HD IV 06/20/20 09:15 06/21/20 12:19 Dextrose (Dextrose 50%) 25 ml ASDIRECTED PRN IV SEE LABEL COMMENTS 06/20/20 17:50 Docusate Sodium (Colace) 100 mg BID PO 06/17/20 21:00 06/21/20 07:26 Emollient Cream (Vanicream) Apply to bilateral feet DAILY TOP 06/19/20 09:00 06/21/20 08:11 Famotidine (Pepcid) 20 mg Q48H PO 06/19/20 09:00 06/21/20 07:26 Glucagon (Glucagon) 1 mg ASDIRECTED PRN SC SEE LABEL COMMENTS 06/20/20 17:50 Glucose (Glucose) 16 GM ASDIRECTED PRN PO SEE LABEL COMMENTS 06/20/20 17:50 Heparin Sodium (Heparin) Please refer to ... ASDIRECTED XX 06/19/20 06:40 06/20/20 06:39 DC Heparin Sodium (Heparin) Please refer to ... ASDIRECTED XX 06/21/20 07:05 06/22/20 07:04 Heparin Sodium (Heparin) dose as per volume indica... ASDIRECTED PRN IV SEE LABEL COMMENTS 06/19/20 06:40 06/20/20 06:39 DC Heparin Sodium (Heparin) dose as per volume indica... ASDIRECTED PRN IV SEE LABEL COMMENTS 06/21/20 07:05 06/22/20 07:04 Home Med (Med Rec Complete!) ASDIRECTED XX 06/18/20 03:20 06/18/20 03:26 DC Insulin Human Lispro (HumaLOG INSULIN) See Protocol Table AC SC 06/20/20 17:30 06/21/20 08:03 Insulin Human Lispro (HumaLOG INSULIN) See Protocol Table QHS SC 06/20/20 21:00 Levothyroxine Sodium (Synthroid) 88 mcg DAILY PO 06/18/20 09:00 06/21/20 07:26 Lidocaine (Lidoderm Patch) 1 patch DAILY PRN TD PAIN 06/18/20 03:30 06/21/20 11:16 Magnesium Hydroxide (Milk Of Magnesia) 30 ml DAILY PRN PO CONSTIPATION 06/17/20 23:35 Morphine Sulfate (Morphine Sulfate Inj) 2 mg Q6H PRN IV MODERATE PAIN (PS 5-7) 06/18/20 03:10 06/21/20 08:11 Multivitamins (Theragram-M) 1 tab DAILY PO 06/18/20 09:00 06/21/20 07:26 Nitroglycerin (Nitrostat (1/ 150)) 0.4 mg Q5M PRN SL CHEST PAIN 06/18/20 03:30 Non-Formulary Medication ( See Comment Field Below ) CHECK TO SEE IF THE PATIENT... DAILY@1600 XX 06/19/20 16:00 06/19/20 17:46 Non-Formulary Medication ( See Comment Field Below ) REMOVE LIDODERM PATCH DAILYPRN PRN XX SEE LABEL COMMENTS 06/18/20 03:40 Non-Formulary Medication ( See Comment Field Below ) RAMON BLACK. DOSING ASDIRECTED XX 06/18/20 02:35 06/18/20 14:25 DC Pantoprazole Sodium (Protonix) 40 mg DAILY PO 06/18/20 09:00 06/21/20 07:26 Ramelteon (Rozerem) 8 mg QHS PRN PO INSOMNIA 06/18/20 01:20 06/21/20 00:51 Simethicone (Mylicon) 80 mg TIDP PRN PO GAS PAIN 06/19/20 08:20 06/19/20 13:27 Sodium Chloride 1,000 ml @ 100 mls/hr Q10H IV 06/17/20 22:10 06/18/20 02:38 DC 06/18/20 02:10 Tamsulosin HCl (Flomax) 0.4 mg DAILY PO 06/18/20 09:00 06/21/20 07:26 Torsemide (Demadex) 50 mg BID@0900,1700 PO 06/18/20 09:00 06/21/20 07:26 Valsartan (Diovan) 160 mg DAILY PO 06/18/20 09:00 06/21/20 07:27 Vancomycin HCl 1000 mg/IV Miscellaneous Supplies 1 each/ Sodium Chloride 270 ml @ 270 mls/hr HD IV 06/19/20 16:00 06/19/20 17:45 Allergies Coded Allergies: Penicillins (Verified Allergy, Mild, rash/itching, 06/17/20) Tetracyclines (Verified Allergy, Mild, ITCHING, 06/17/20) Sulfa (Sulfonamide Antibiotics) (Unverified Allergy, Unknown, unknown, 06/17/20) erythromycin base (Unverified Allergy, Unknown, unknown, 06/17/20) minoxidil (Verified Adverse Reaction, Intermediate, ANASARCA, 06/17/20) Contrast Media (Verified Adverse Reaction, Mild, MADE LEG TURN RED, 06/17/20) amlodipine (Verified Adverse Reaction, Mild, FLUID RETENTION, 06/17/20) carvedilol (Verified Adverse Reaction, Mild, FLUID RETENTION, 4/5/21) hydralazine (Verified Adverse Reaction, Mild, FLUID RETENTION, 06/17/20) cephalexin (Unverified Adverse Reaction, Unknown, FLUID RETENTION, 06/17/20) Matilda Farris MD Jun 21, 2020 16:27
[2020-06-21] MEDS: CLOPIDOGREL 75 MG TAB PO SCH (17:47)
[2020-06-21] MEDS: ATORVASTATIN 20 MG TAB PO SCH (20:45)
[2020-06-21] MEDS: LINEZOLID 600MG TABLET (ZYVOX) PO SCH (20:45)
[2020-06-21] MEDS: ACETAMINOPHEN TAB 650MG DOSE (2X325MG) PO PRN (20:45)
[2020-06-21 22:00] VITALS: BP 134/52
[2020-06-22 06:00] VITALS: BP 144/65
[2020-06-22 06:22] LABS: HEMATOCRIT 33.1 % (42.0-52.0); HEMOGLOBIN 10.5 g/dl (13.5-17.5); MEAN CORPUSCULAR HEMOGLOBIN 31.4 pg (27.0-33.0); MEAN CORPUSCULAR HGB CONC 31.7 g/dl (32.0-36.5); MEAN CORPUSCULAR VOLUME 99.1 fl (80.0-96.0); PLATELET COUNT, AUTOMATED 110 10^3/uL (150-450); RED BLOOD COUNT 3.34 10^6/uL (4.30-6.10); WHITE BLOOD COUNT 3.7 10^3/uL (4.0-10.0)
[2020-06-22 06:48] LABS: CALCIUM LEVEL 8.7 MG/DL (8.8-10.2); CREATININE FOR GFR 3.67 MG/DL (0.70-1.30); GLOMERULAR FILTRATION RATE 17.2 (>42); POTASSIUM SERUM 4.1 MEQ/L (3.5-5.1)
[2020-06-22] MEDS: LEVOTHYROXINE 88MCG TABLET (0.088 MG) PO SCH (08:31)
[2020-06-22] MEDS: MULTIVITAMINS/MINERALS THERAP 1 TAB PO SCH (08:31)
[2020-06-22 08:33] LABS: C REACTIVE PROTEIN QUANTITATIV 0.73 MG/DL (0.00-0.30)
[2020-06-22] MEDS: VALSARTAN 80 MG TAB (DIOVAN) PO SCH (08:34)
[2020-06-22] MEDS: TAMSULOSIN 0.4 MG CAP PO SCH (08:34)
[2020-06-22] MEDS: TORSEMIDE (DEMADEX) 50 MG PER 1/2 TAB PO SCH ×2 (08:34→17:33)
[2020-06-22] MEDS: allopurinoL 100 MG TAB PO SCH (08:35)
[2020-06-22] MEDS: CALCITRIOL 0.25 MCG CAP (S0169) PO SCH (08:35)
[2020-06-22] MEDS: APIXABAN 2.5 MG TAB (ELIQUIS) PO SCH ×2 (08:35→21:11)
[2020-06-22] MEDS: LINEZOLID 600MG TABLET (ZYVOX) PO SCH ×2 (08:35→10:28)
[2020-06-22] MEDS: HumaLOG INSULIN (NovoLOG) PER UNIT SC SCH ×4 (08:36→20:46)
[2020-06-22] MEDS: VANICREAM MOISTURIZING SKIN CREAM 113GM TUBE TOP SCH (08:37)
[2020-06-22] MEDS: LIDOCAINE 5% (LIDODERM) PATCH TD PRN (08:48)
[2020-06-22 08:52] LABS: ERYTHROCYTE SEDIMENTATION RATE 15 mm/hr (0-20)
[2020-06-22] MEDS: DOCUSATE SODIUM 100MG CAPSULE PO SCH ×2 (09:14→21:11)
[2020-06-22] MEDS: PANTOPRAZOLE 40MG TAB (PROTONIX) PO SCH (09:14)
[2020-06-22 09:30] VITALS: BP_SYST 142; BP_SYST 144; BP_DIAS 64; BP_DIAS 66
[2020-06-22] MEDS: MAALOX 30 ML SUSP *UDC PO PRN (10:28)
--- NOTE | 2020-06-22 11:22 | IPNPDOC ---
Subjective General Date/Time Seen The patient was seen on 06/22/20 at 11:19. Subject Chief Complaint/History The patient is a 75-year-old male admitted with a reason for visit of Cellulitis Of L Lower Extremity,Esrd. SUBJECTIVE Mr. Willson was seen and examined at the bedside this morning. He was seen by infectious disease yesterday who started him on oral antibiotics. He states that it has hurt his stomach but overall he is feeling better. He notes that the swelling in his leg has improved and it is less painful to the touch. Otherwise he has no complaints. No issues reported overnight OBJECTIVE PHYSICAL EXAMINATION: VITAL SIGNS: see below GENERAL: alert and oriented, in no apparent distress, pleasant and conversant in full sentences. HEENT: PERRL, EOMI, Oral mucous membranes are moist without lesions. NECK: The patient has no noted JVD. No adenopathy is appreciated. No thyromegaly CHEST/LUNGS: Lungs are clear bilaterally without rhonchi, rales, or wheezes. There is no subcutaneous air appreciated. There is no tenderness to the chest wall. HEART: irregularly irregular. No murmurs, rubs, or gallops are appreciated. Distal pulses are 2+. No carotid bruits appreciated. ABDOMEN: Soft, nontender, and nondistended. Bowel sounds are positive. No organomegaly is appreciated. No masses are appreciated. There are no peritoneal signs. There is no Horn[place] sign. EXTREMITIES: There is trace edema in the left lower extremity. There is a large (10 x 12 cm) area of erythema which has been outlined on the left lower leg, anterior surface, and swelling has decreased over time. The area is slightly warm to the touch. There is an area on the kidd just below the knee with 3 hard discrete notches. Right lower extremity has no edema. Pulses are intact SKIN: See above PSYCHIATRIC: AAO x 3, normal mood/affect NEUROLOGIC: 5 out of 5 strength in all or extremities, no other obvious focal deficits LABORATORY DATA: Please see below. IMAGING: US DUPLEX LLE: IMPRESSION: No evidence of deep vein thrombosis. There is a subcutaneous lesion anteriorly left lower extremity just below the level of the knee as described above. CT ARTEROGRAM LLE: IMPRESSION: No significant stenoses are identified. There is soft tissue edema throughout the left lower extremity. Ultrasonography of a focal palpable area in the left kidd identifies a complex fluid collection. ASSESSMENT/PLAN: This is a 75-year-old male with end-stage renal disease on dialysis, hypertension, CAD who presents with about 1 week of worsening left lower extremity pain, difficulty ambulating, redness and erythema of the skin concerning for cellulitis. Nephrology service consulted for hemodialysis management. 1. End-stage renal disease on hemodialysis: -Plan for Hemodialysis again on Wednesday -Electrolytes WNL 2. Anemia of chronic kidney disease: -Hemoglobin stable at 10.5 today -Continue Aranesp with HD 3. Renovascular hypertension: -Continue home dose of clonidine -Continue home valsartan 160 mg by mouth daily 4. Secondary hyperparathyroidism: -Calcium 8.8 today -Continue calcitriol 5. Left lower extremity cellulitis: -ID consulted, antibiotics changed to IV Zyvox 6. CAD, recent [place], history of CABG: -Continue aspirin, Plavix, statin 7. History of Atrial fibrillation: -Rate controlled at this time, continue Eliquis 8. History of diastolic CHF, preserved EF: -Continue Torsemide 50mg BID DISPOSITION: Continue antibiotic therapy, next hemodialysis on Wednesday Current Medications Current Medications Current Medications Medications (Trade) Dose Ordered Sig/Christian Route PRN Reason Start Time Stop Time Status Last Admin Dose Admin Acetaminophen (Tylenol Tab) 650 mg Q4H PRN PO MILD PAIN OR FEVER 06/17/20 23:35 06/21/20 20:45 Al Hydrox/Mg Hydrox/Simethicone (Mylanta) 30 ml Q4HP PRN PO HEARTBURN 06/22/20 09:40 06/22/20 10:28 Allopurinol (Zyloprim) 100 mg DAILY PO 06/18/20 09:00 06/22/20 08:35 Alprazolam (Xanax) 0.5 mg DAILY PRN PO ANXIETY 06/18/20 03:30 Apixaban (Eliquis) 2.5 mg BID PO 06/18/20 09:00 06/22/20 08:35 Atorvastatin Calcium (Lipitor) 40 mg QHS PO 06/17/20 21:00 06/21/20 20:45 Calcitriol (Rocaltrol) 0.25 mcg TuThSa@0900 PO 06/18/20 09:00 06/22/20 08:35 Clonidine HCl (Kkzvxkbu-Naq-1) 0.2 ea Th@0900 TOP 06/20/20 09:00 06/20/20 11:24 Clopidogrel Bisulfate (PLAVix) 75 mg DAILY@1200 PO 06/18/20 12:00 06/21/20 17:47 Darbepoetin Horacio (Aranesp (Dialysis Use)) 200 mcg HD IV 06/20/20 09:15 06/21/20 12:19 Dextrose (Dextrose 50%) 25 ml ASDIRECTED PRN IV SEE LABEL COMMENTS 06/20/20 17:50 Docusate Sodium (Colace) 100 mg BID PO 06/17/20 21:00 06/22/20 09:14 Emollient Cream (Vanicream) Apply to bilateral feet DAILY TOP 06/19/20 09:00 06/22/20 08:37 Famotidine (Pepcid) 20 mg Q48H PO 06/19/20 09:00 06/21/20 07:26 Glucagon (Glucagon) 1 mg ASDIRECTED PRN SC SEE LABEL COMMENTS 06/20/20 17:50 Glucose (Glucose) 16 GM ASDIRECTED PRN PO SEE LABEL COMMENTS 06/20/20 17:50 Heparin Sodium (Heparin) Please refer to ... ASDIRECTED XX 06/19/20 06:40 06/20/20 06:39 DC Heparin Sodium (Heparin) Please refer to ... ASDIRECTED XX 06/21/20 07:05 06/22/20 07:04 DC Heparin Sodium (Heparin) dose as per volume indica... ASDIRECTED PRN IV SEE LABEL COMMENTS 06/19/20 06:40 06/20/20 06:39 DC Heparin Sodium (Heparin) dose as per volume indica... ASDIRECTED PRN IV SEE LABEL COMMENTS 06/21/20 07:05 06/22/20 07:04 DC Home Med (Med Rec Complete!) ASDIRECTED XX 06/18/20 03:20 06/18/20 03:26 DC Insulin Human Lispro (HumaLOG INSULIN) See Protocol Table AC SC 06/20/20 17:30 06/22/20 08:36 Insulin Human Lispro (HumaLOG INSULIN) See Protocol Table QHS SC 06/20/20 21:00 Levothyroxine Sodium (Synthroid) 88 mcg DAILY PO 06/18/20 09:00 06/22/20 08:31 Lidocaine (Lidoderm Patch) 1 patch DAILY PRN TD PAIN 06/18/20 03:30 06/22/20 08:48 Linezolid (Zyvox) 600 mg BID PO 06/21/20 21:00 06/22/20 10:54 DC 06/22/20 10:28 Linezolid 600 mg/ IV Miscellaneous Supplies 300 ml @ 150 mls/hr Q12H IV 06/22/20 21:00 Magnesium Hydroxide (Milk Of Magnesia) 30 ml DAILY PRN PO CONSTIPATION 06/17/20 23:35 Morphine Sulfate (Morphine Sulfate Inj) 2 mg Q6H PRN IV MODERATE PAIN (PS 5-7) 06/18/20 03:10 06/21/20 08:11 Multivitamins (Theragram-M) 1 tab DAILY PO 06/18/20 09:00 06/22/20 08:31 Nitroglycerin (Nitrostat (1/ 150)) 0.4 mg Q5M PRN SL CHEST PAIN 06/18/20 03:30 Non-Formulary Medication ( See Comment Field Below ) CHECK TO SEE IF THE PATIENT... DAILY@1600 XX 06/19/20 16:00 06/21/20 16:58 DC 06/19/20 17:46 Non-Formulary Medication ( See Comment Field Below ) REMOVE LIDODERM PATCH DAILYPRN PRN XX SEE LABEL COMMENTS 06/18/20 03:40 Non-Formulary Medication ( See Comment Field Below ) VANCO INTERMIT. DOSING ASDIRECTED XX 06/18/20 02:35 06/18/20 14:25 DC Ondansetron HCl (Zofran) 4 mg Q6H PO 06/22/20 12:00 Pantoprazole Sodium (Protonix) 40 mg DAILY PO 06/18/20 09:00 06/22/20 09:14 Ramelteon (Rozerem) 8 mg QHS PRN PO INSOMNIA 06/18/20 01:20 06/21/20 22:56 Simethicone (Mylicon) 80 mg TIDP PRN PO GAS PAIN 06/19/20 08:20 06/19/20 13:27 Sodium Chloride 1,000 ml @ 100 mls/hr Q10H IV 06/17/20 22:10 06/18/20 02:38 DC 06/18/20 02:10 Tamsulosin HCl (Flomax) 0.4 mg DAILY PO 06/18/20 09:00 06/22/20 08:34 Torsemide (Demadex) 50 mg BID@0900,1700 PO 06/18/20 09:00 06/22/20 08:34 Valsartan (Diovan) 160 mg DAILY PO 06/18/20 09:00 06/22/20 08:34 Vancomycin HCl 1000 mg/IV Miscellaneous Supplies 1 each/ Sodium Chloride 270 ml @ 270 mls/hr HD IV 06/19/20 16:00 06/21/20 16:23 DC 06/19/20 17:45 Allergies Coded Allergies: Penicillins (Verified Allergy, Mild, rash/itching, 06/17/20) Tetracyclines (Verified Allergy, Mild, ITCHING, 06/17/20) Sulfa (Sulfonamide Antibiotics) (Unverified Allergy, Unknown, unknown, 06/17/20) erythromycin base (Unverified Allergy, Unknown, unknown, 06/17/20) minoxidil (Verified Adverse Reaction, Intermediate, ANASARCA, 06/17/20) Contrast Media (Verified Adverse Reaction, Mild, MADE LEG TURN RED, 06/17/20) amlodipine (Verified Adverse Reaction, Mild, FLUID RETENTION, 06/17/20) carvedilol (Verified Adverse Reaction, Mild, FLUID RETENTION, 06/17/20) hydralazine (Verified Adverse Reaction, Mild, FLUID RETENTION, 06/17/20) cephalexin (Unverified Adverse Reaction, Unknown, FLUID RETENTION, 06/17/20) VS,Fishbone, I+O VS, Fishbone, I+O Laboratory Tests 06/22/20 05:34 Vital Signs Date Time Temp Pulse Resp B/P (MAP) Pulse Ox O2 Delivery O2 Flow Rate FiO2 06/22/20 09:30 96.8 60 14 142/64 (90) 98 Room Air I&O- Last 24 Hours up to 6 AM 06/22/20 06:00 Intake Total 600 ml Output Total 3250 ml Balance -2650 ml GME ATTESTATION GME ATTESTATION My faculty preceptor for this patient encounter was physically present during the encounter and was fully available. All aspects of the patient interview, examination, medical decision making process, and medical care plan development were reviewed and approved by the faculty preceptor. The faculty preceptor is aware and concurs with the plan as stated in the body of this note and will attest to such by his/her cosignature. YUMIKO OLVERA MD Jun 22, 2020 11:22
--- NOTE | 2020-06-22 13:11 | IPNPDOC ---
Date Seen The patient was seen on 06/22/20. Progress Note SUBJECTIVE: Remains having decreased redness, tenderness today. Could not tolerated PO zyvox so changed to IV this AM. Still complaining of LLE pain with ambulation. Denies chest pain, sob, fevers, chills. OBJECTIVE: PHYSICAL EXAMINATION: VITAL SIGNS: See Below GENERAL APPEARANCE: NAD, resting in bed. AAOx 3 HEENT: No mass or lesion. No scleral icterus or conjunctival erythema. Nares patent. Oral mucosa moist CARDIOVASCULAR: Regular rate, rhythm. No murmurs, rubs or gallops LUNGS: CTAB. No wheezing, rales, rhonchi. CHEST: permacath in right chest ABDOMEN: Soft, non-tender. No tenderness MUSCULOSKELETAL:No joint deformity EXTREMITIES: Area of erythema/discoloration located on the distal LE on kidd, tenderness improving- decreased tenderness . Another area high up on kidd is clearing up more, softer, less swollen and less fluctuant. No drainage or vesicles noted. Pulses present NEUROLOGICAL: CN 2-12 intact, no focal deficits PSYCHIATRIC: Mood and affect appropriate LABORATORY DATA: See below. MICROBIOLOGY: BCx NG at 48 hrs IMAGING: CT of tib/fib with contrast: Diffuse superficial soft tissue edema throughout the left lower leg, consistent with the history of cellulitis. No evidence of necrotizing fasciitis, myonecrosis or osteomyelitis. LLE arterial US: No significant stenoses are identified. There is soft tissue edema throughout the left lower extremity. Ultrasonography of a focal palpable area in the left kidd identifies a complex fluid collection. Vascular US: No evidence of deep vein thrombosis. There is a subcutaneous lesion anteriorly left lower extremity just below the level of the knee as described above. LL Extremity CT: 1. No CT evidence for an abscess, necrotizing fasciitis, or osteomyelitis in the left knee or left calf. 2. Soft tissue swelling, edema in the subcutaneous tissues, and thickening of the skin in the left knee and left calf, which is compatible with cellulitis. 3. Tricompartmental osteoarthritis and chondrocalcinosis involving the left knee and a moderate left knee joint effusion. ] ASSESSMENT: This is a 75 year old male with PMH of ESRD ON HD, CAD s/p CABG and stenting, NIDDM admitted for LLE cellulitis. PLAN: LLE Cellulitis -afebrile, erythema and tenderness decreased. Cannot r/o steroids helped 06/20/20 -Imaging above, no abscess -ESR and CRP slightlydecreased today -Hx of LLE cellulitis in past treated with abx -C/w pain control.IV zyvox due to patient not tolerating PO -D/c IV vancomycin and will start PO zyvox per ID -PT: Recommend home PT upon d/c to ensure safe progression of gait after d/c -ID consulted, f/u other recommendations after weekend. ESRD on HD -HD 06/21/20 -Nephrology following -Daily labs NIDDM -Stable, monitor glucose. -Holding off on ISS HTN -C/w valsartan, torsemide, clonidine patch CAD s/p CABG stenting, SC -C/w home treatment Hx of HFpEF, not in exacerbation -C/w home medications, including diuretic TIA -Continue plavix, asa Hx a-fib -Rate controlled, continue eliquis HLD -Continue atorvastatin Anxiety -xanax prn Hypothyroidism -Continue levothyroxine Gout - continue allopurinol BPH - Continue flomax GERD - continue pepcid DVT -C/w eliquis DISPOSITION: ID consulted, recommended abx changed above but could not tolerate PO. Will TB after weekend for oral regimen suggestions. C/w PT, plan is discharge home with services when medically improved. VS, I&O, 24H, Fishbone Vital Signs/I&O Vital Signs Date Time Temp Pulse Resp B/P (MAP) Pulse Ox O2 Delivery O2 Flow Rate FiO2 06/22/20 09:30 96.8 60 14 142/64 (90) 98 Room Air I&O- Last 24 Hours up to 6 AM 06/22/20 06:00 Intake Total 600 ml Output Total 3250 ml Balance -2650 ml Laboratory Data 24H LABS Laboratory Tests 2 06/21/20 14:35: Bedside Glucose (Misc Panel) 108 06/21/20 16:42: Bedside Glucose (Misc Panel) 130H 06/21/20 20:25: Bedside Glucose (Misc Panel) 194H 06/22/20 05:34: Nucleated Red Blood Cells % (auto) 0.0, Erythrocyte Sedimentation Rate 15, Anion Gap 7L, Glomerular Filtration Rate 17.2L, Calcium Level 8.7L, C-Reactive Protein, Quantitative 0.73H 06/22/20 11:41: Bedside Glucose (Misc Panel) 165H CBC/BMP Laboratory Tests 06/22/20 05:34 Microbiology Microbiology 06/17/20 Blood Culture - Preliminary, Resulted No Growth after 72 hours. All specime... 06/17/20 Blood Culture - Preliminary, Resulted No Growth after 72 hours. All specime... Current Medications Current Medications Medications (Trade) Dose Ordered Sig/Christian Route PRN Reason Start Time Stop Time Status Last Admin Dose Admin Acetaminophen (Tylenol Tab) 650 mg Q4H PRN PO MILD PAIN OR FEVER 06/17/20 23:35 06/21/20 20:45 Al Hydrox/Mg Hydrox/Simethicone (Mylanta) 30 ml Q4HP PRN PO HEARTBURN 06/22/20 09:40 06/22/20 10:28 Allopurinol (Zyloprim) 100 mg DAILY PO 06/18/20 09:00 06/22/20 08:35 Alprazolam (Xanax) 0.5 mg DAILY PRN PO ANXIETY 06/18/20 03:30 Apixaban (Eliquis) 2.5 mg BID PO 06/18/20 09:00 06/22/20 08:35 Atorvastatin Calcium (Lipitor) 40 mg QHS PO 06/17/20 21:00 06/21/20 20:45 Calcitriol (Rocaltrol) 0.25 mcg TuThSa@0900 PO 06/18/20 09:00 06/22/20 08:35 Clonidine HCl (Gvgydvhw-Lkx-0) 0.2 ea Th@0900 TOP 06/20/20 09:00 06/20/20 11:24 Clopidogrel Bisulfate (PLAVix) 75 mg DAILY@1200 PO 06/18/20 12:00 06/21/20 17:47 Darbepoetin Horacio (Aranesp (Dialysis Use)) 200 mcg HD IV 06/20/20 09:15 06/21/20 12:19 Dextrose (Dextrose 50%) 25 ml ASDIRECTED PRN IV SEE LABEL COMMENTS 06/20/20 17:50 Docusate Sodium (Colace) 100 mg BID PO 06/17/20 21:00 06/22/20 09:14 Emollient Cream (Vanicream) Apply to bilateral feet DAILY TOP 06/19/20 09:00 06/22/20 08:37 Famotidine (Pepcid) 20 mg Q48H PO 06/19/20 09:00 06/21/20 07:26 Glucagon (Glucagon) 1 mg ASDIRECTED PRN SC SEE LABEL COMMENTS 06/20/20 17:50 Glucose (Glucose) 16 GM ASDIRECTED PRN PO SEE LABEL COMMENTS 06/20/20 17:50 Heparin Sodium (Heparin) Please refer to ... ASDIRECTED XX 06/19/20 06:40 06/20/20 06:39 DC Heparin Sodium (Heparin) Please refer to ... ASDIRECTED XX 06/21/20 07:05 06/22/20 07:04 DC Heparin Sodium (Heparin) dose as per volume indica... ASDIRECTED PRN IV SEE LABEL COMMENTS 06/19/20 06:40 06/20/20 06:39 DC Heparin Sodium (Heparin) dose as per volume indica... ASDIRECTED PRN IV SEE LABEL COMMENTS 06/21/20 07:05 06/22/20 07:04 DC Home Med (Med Rec Complete!) ASDIRECTED XX 06/18/20 03:20 06/18/20 03:26 DC Insulin Human Lispro (HumaLOG INSULIN) See Protocol Table AC SC 06/20/20 17:30 06/22/20 08:36 Insulin Human Lispro (HumaLOG INSULIN) See Protocol Table QHS SC 06/20/20 21:00 Levothyroxine Sodium (Synthroid) 88 mcg DAILY PO 06/18/20 09:00 06/22/20 08:31 Lidocaine (Lidoderm Patch) 1 patch DAILY PRN TD PAIN 06/18/20 03:30 06/22/20 08:48 Linezolid (Zyvox) 600 mg BID PO 06/21/20 21:00 06/22/20 10:54 DC 06/22/20 10:28 Linezolid 600 mg/ IV Miscellaneous Supplies 300 ml @ 150 mls/hr Q12H IV 06/22/20 21:00 Magnesium Hydroxide (Milk Of Magnesia) 30 ml DAILY PRN PO CONSTIPATION 06/17/20 23:35 Morphine Sulfate (Morphine Sulfate Inj) 2 mg Q6H PRN IV MODERATE PAIN (PS 5-7) 06/18/20 03:10 06/21/20 08:11 Multivitamins (Theragram-M) 1 tab DAILY PO 06/18/20 09:00 06/22/20 08:31 Nitroglycerin (Nitrostat (1/ 150)) 0.4 mg Q5M PRN SL CHEST PAIN 06/18/20 03:30 Non-Formulary Medication ( See Comment Field Below ) CHECK TO SEE IF THE PATIENT... DAILY@1600 XX 06/19/20 16:00 06/21/20 16:58 DC 06/19/20 17:46 Non-Formulary Medication ( See Comment Field Below ) REMOVE LIDODERM PATCH DAILYPRN PRN XX SEE LABEL COMMENTS 06/18/20 03:40 Non-Formulary Medication ( See Comment Field Below ) VANCO INTERMIT. DOSING ASDIRECTED XX 06/18/20 02:35 06/18/20 14:25 DC Ondansetron HCl (Zofran) 4 mg Q6H PO 06/22/20 12:00 Pantoprazole Sodium (Protonix) 40 mg DAILY PO 06/18/20 09:00 06/22/20 09:14 Ramelteon (Rozerem) 8 mg QHS PRN PO INSOMNIA 06/18/20 01:20 06/21/20 22:56 Simethicone (Mylicon) 80 mg TIDP PRN PO GAS PAIN 06/19/20 08:20 06/19/20 13:27 Sodium Chloride 1,000 ml @ 100 mls/hr Q10H IV 06/17/20 22:10 06/18/20 02:38 DC 06/18/20 02:10 Tamsulosin HCl (Flomax) 0.4 mg DAILY PO 06/18/20 09:00 06/22/20 08:34 Torsemide (Demadex) 50 mg BID@0900,1700 PO 06/18/20 09:00 06/22/20 08:34 Valsartan (Diovan) 160 mg DAILY PO 06/18/20 09:00 06/22/20 08:34 Vancomycin HCl 1000 mg/IV Miscellaneous Supplies 1 each/ Sodium Chloride 270 ml @ 270 mls/hr HD IV 06/19/20 16:00 06/21/20 16:23 DC 06/19/20 17:45 Allergies Coded Allergies: Penicillins (Verified Allergy, Mild, rash/itching, 06/17/20) Tetracyclines (Verified Allergy, Mild, ITCHING, 06/17/20) Sulfa (Sulfonamide Antibiotics) (Unverified Allergy, Unknown, unknown, 06/17/20) erythromycin base (Unverified Allergy, Unknown, unknown, 06/17/20) minoxidil (Verified Adverse Reaction, Intermediate, ANASARCA, 06/17/20) Contrast Media (Verified Adverse Reaction, Mild, MADE LEG TURN RED, 06/17/20) amlodipine (Verified Adverse Reaction, Mild, FLUID RETENTION, 06/17/20) carvedilol (Verified Adverse Reaction, Mild, FLUID RETENTION, 06/17/20) hydralazine (Verified Adverse Reaction, Mild, FLUID RETENTION, 06/17/20) cephalexin (Unverified Adverse Reaction, Unknown, FLUID RETENTION, 06/17/20) Matilda Farris MD Jun 22, 2020 13:11
[2020-06-22] MEDS: CLOPIDOGREL 75 MG TAB PO SCH (13:26)
[2020-06-22] MEDS: ONDANSETRON 4 MG TAB PO SCH ×4 (13:27→23:31)
--- NOTE | 2020-06-22 13:30 | CR ---
CONSULTATION DATE: 06/21/2020 Asked to consult by Dr. Farris for evaluation of left lower extremity cellulitis and antibiotic choice for discharge home. HISTORY OF PRESENT ILLNESS: Mr. Willson is a pleasant 75-year-old gentleman who presented to [facility] complaining of left lower extremity pain for 6 days prior to admission. The patient had been hospitalized for about 23 days prior to this hospitalization at [facility] for cardiac issues. He denied any trauma to the left leg but had felt a burning sensation in his leg, like something stung him. He developed an indurated area that progressed, and erythema involved the anterior kidd. Did not involve the ankle or the knee. The patient was having difficulty walking. He lives alone and therefore came to the hospital. He had some nausea but no vomiting, no shortness of breath, no chest pain, no back pain, no fever, chills, or diarrhea. MEDICAL HISTORY: Significant for: 1. End-stage renal disease, on hemodialysis. 2. Coronary artery disease, status post coronary artery bypass graft (CABG) and stenting. 3. Lkg-jczfveq-lnjwerpsa diabetes. 4. Transient ischemic attacks (TIAs). 5. Congestive heart failure. 6. Benign prostatic hypertrophy. 7. Gastroesophageal reflux disease. 8. Hypothyroidism. 9. History of gout. 10. Essential hypertension. 11. Degenerative disc disease of the lumbar spine. SURGICAL HISTORY: 1. CABG. 2. Left arteriovenous (AV) fistula. 3. Cholecystectomy. 4. Nephrectomy. 5. Appendectomy. SOCIAL HISTORY: He lives home alone. He usually uses his walker to ambulate and walks about half a mile a day. He denies tobacco, alcohol, or drug use. REVIEW OF SYSTEMS: He had no nausea, vomiting, or diarrhea currently. He has just pain in his leg, but it is at least 40% better. He has no chest pain or shortness of breath. No other complaints. Patient has a remote history of gout but is under good control now. LABORATORY DATA: White count 3.2, hemoglobin 9.9, hematocrit 30.1, platelets 103. ESR 33, increased from 14. Sodium 137, potassium 4.3, chloride 103, bicarbonate 26, BUN 69, creatinine 4.62, glucose 229. Uric acid 4.7. Calcium 8.8. CRP 1.25, which is up from 0.3. Blood cultures, two sets, are no growth after 72 hours. ALLERGIES: PENICILLIN, SULFA, contrast medium, AMLODIPINE, TETRACYCLINE, CEPHALEXIN, ERYTHROMYCIN, MINOXIDIL. MEDICATIONS: - Aranesp 200 mcg intravenous (IV) with dialysis - clonidine 0.2 topical every - vancomycin 1 gram IV with hemodialysis - Vanicream apply to feet daily - famotidine 20 mg by mouth every 48 hours - simethicone 80 mg by mouth three times a day as needed - [id number] mg by mouth daily - torsemide 50 mg by mouth twice a day - Flomax 0.4 mg by mouth daily - pantoprazole 40 mg by mouth daily - multivitamin one tablet by mouth daily - levothyroxine 80 mcg by mouth daily - calcitriol 0.25 mcg by mouth Wednesday, , Wednesday - apixaban 2.5 mg by mouth twice a day - allopurinol 100 mg by mouth daily - Nitrostat as needed - lidocaine patch to back daily PHYSICAL EXAMINATION: He is an elderly gentleman, alert and oriented in no acute distress. He was seen sitting in his wheelchair, right back from dialysis. He has been afebrile throughout this hospitalization. Temperature is 97, pulse 69, respirations 16, blood pressure 153/75, oxygen saturation 97% on room air. HEART: Normal S1, S2. Irregularly irregular. No murmurs, rubs, or gallops appreciated. LUNGS: Clear. No wheezes, rales, or rhonchi. ABDOMEN: Soft, nontender. No hepatosplenomegaly. No masses felt. EXTREMITIES: No clubbing, cyanosis. There is trace edema in the left lower extremity with erythema from the mid kidd with an indurated nodular area that is quite tender, about 5 cm below the knee, measuring about 3 x 3 cm with erythema extending anteriorly. The area of erythema is about 12 cm in length. It does not involve the heel, ankle, or knee. He has full range of motion of both ankles and knees. SKIN: He has bilateral peeling of both feet with significant erythema, onychomycosis times 10. PSYCHIATRIC: Alert and oriented times three with normal mood and affect. NEUROLOGIC: Gait normal. IMAGING: Lower extremity CT without contrast showed a large joint effusion at the knee, degenerative changes. Old heel medial malleolus fracture fragment. No acute fracture noted. There is superficial soft tissue edema throughout the lower leg, consistent with cellulitis. No necrotizing fasciitis or osteomyelitis. Arterial studies show no significant stenosis. Soft tissue edema of the left lower extremity. Vascular ultrasound: No evidence of deep venous thrombosis (DVT). There is a subcutaneous lesion anteriorly, left lower extremity just below the knee, measuring 2.6 x 1.6 x 0.7 cm, that could represent an enlarged node or other complex lesion, such as proteinaceous fluid in an abscess or small cystic lesion. IMPRESSION: This is a 75-year-old gentleman with a history of end-stage renal disease, hypertension, peripheral vascular disease, who was admitted with left lower extremity cellulitis, treated with 5 days of IV vancomycin with some improvement. The patient has no white count, no fever. He states he is able to walk a little bit better. There is an indurated mass just below the knee, where the cellulitis has started. It could be a small fluid collection/abscess, but it is not fluctuant. It is still very tender to touch. Patient is on multiple blood thinners, and I do not think that it would be a very good yield to try and incision and drain (I and D) or aspirate that area. I would suggest continuing with antibiotics, switching maybe to oral linezolid 600 mg by mouth twice a day and continue watching his clinical improvement. PLAN: Discontinue IV vancomycin. Switch to oral Zyvox 600 mg by mouth twice a day for 7 days. Continue with moisturizer on both heels, as they are very cracked and heeling. That could be a source of entry of infection. Case has been discussed with Dr. Farris. KAIDEN
[2020-06-22 14:36] VITALS: BP 131/57
[2020-06-22] MEDS: ATORVASTATIN 20 MG TAB PO SCH (21:11)
[2020-06-22] MEDS: LINEZOLID 600 MG in IV 1 EA IV SCH (21:11)
[2020-06-22 22:00] VITALS: BP 141/75
[2020-06-22] MEDS: RAMELTEON 8 MG TAB (ROZEREM) PO PRN (23:31)
[2020-06-23] MEDS: ONDANSETRON 4 MG TAB PO SCH ×4 (05:16→23:00)
[2020-06-23 05:49] LABS: HEMATOCRIT 33.2 % (42.0-52.0); HEMOGLOBIN 10.6 g/dl (13.5-17.5); MEAN CORPUSCULAR HEMOGLOBIN 31.6 pg (27.0-33.0); MEAN CORPUSCULAR HGB CONC 31.9 g/dl (32.0-36.5); MEAN CORPUSCULAR VOLUME 99.1 fl (80.0-96.0); PLATELET COUNT, AUTOMATED 113 10^3/uL (150-450); RED BLOOD COUNT 3.35 10^6/uL (4.30-6.10); WHITE BLOOD COUNT 3.9 10^3/uL (4.0-10.0)
[2020-06-23] MEDS: MORPHINE 2 MG/ML 1ML VIAL (J2270) IV PRN ×2 (05:57→23:46)
[2020-06-23 06:00] VITALS: BP 160/70
[2020-06-23 06:11] LABS: CALCIUM LEVEL 8.9 MG/DL (8.8-10.2); CREATININE FOR GFR 5.06 MG/DL (0.70-1.30); GLOMERULAR FILTRATION RATE 11.9 (>42); POTASSIUM SERUM 4.6 MEQ/L (3.5-5.1)
[2020-06-23] MEDS ORDERED: methylPREDNISolone 125MG 2ML VIAL IV ONE (09:55)
[2020-06-23] MEDS: LIDOCAINE 5% (LIDODERM) PATCH TD PRN (10:09)
[2020-06-23] MEDS: LEVOTHYROXINE 88MCG TABLET (0.088 MG) PO SCH (10:10)
[2020-06-23] MEDS: HumaLOG INSULIN (NovoLOG) PER UNIT SC SCH ×4 (10:10→20:57)
[2020-06-23] MEDS: TORSEMIDE (DEMADEX) 50 MG PER 1/2 TAB PO SCH ×2 (10:10→18:01)
[2020-06-23] MEDS: FAMOTIDINE 20 MG TAB PO SCH (10:11)
[2020-06-23] MEDS: allopurinoL 100 MG TAB PO SCH (10:11)
[2020-06-23] MEDS: PANTOPRAZOLE 40MG TAB (PROTONIX) PO SCH (10:11)
[2020-06-23] MEDS: APIXABAN 2.5 MG TAB (ELIQUIS) PO SCH ×2 (10:11→21:02)
[2020-06-23] MEDS: VALSARTAN 80 MG TAB (DIOVAN) PO SCH (10:11)
[2020-06-23] MEDS: TAMSULOSIN 0.4 MG CAP PO SCH (10:11)
[2020-06-23] MEDS: DOCUSATE SODIUM 100MG CAPSULE PO SCH ×2 (10:11→21:02)
[2020-06-23] MEDS: MULTIVITAMINS/MINERALS THERAP 1 TAB PO SCH (10:12)
[2020-06-23] MEDS: VANICREAM MOISTURIZING SKIN CREAM 113GM TUBE TOP SCH (10:12)
[2020-06-23] MEDS: LINEZOLID 600 MG in IV 1 EA IV SCH ×2 (10:12→21:03)
[2020-06-23] MEDS: CLOPIDOGREL 75 MG TAB PO SCH (12:04)
[2020-06-23 14:00] VITALS: BP 176/71
--- NOTE | 2020-06-23 15:42 | IPNPDOC ---
Date Seen The patient was seen on 06/23/20. Progress Note SUBJECTIVE: Tenderness increased today in area below knee, soft. Trialing steroids to see if this improves further. C/w tee, touching base with Dr. Hermelindo lizarraga vascular surgery again in the AM. Denies chest pain, sob, fevers, chills. OBJECTIVE: PHYSICAL EXAMINATION: VITAL SIGNS: See Below GENERAL APPEARANCE: NAD, resting in bed. AAOx 3 HEENT: No mass or lesion. No scleral icterus or conjunctival erythema. Nares patent. Oral mucosa moist CARDIOVASCULAR: Regular rate, rhythm. No murmurs, rubs or gallops LUNGS: CTAB. No wheezing, rales, rhonchi. CHEST: permacath in right chest ABDOMEN: Soft, non-tender. No tenderness MUSCULOSKELETAL:No joint deformity EXTREMITIES: Area of erythema/discoloration located on the distal LE on kidd. Another area high up on kidd is more red today, very tender compared to 06/22/20. No drainage or vesicles noted. Pulses present NEUROLOGICAL: CN 2-12 intact, no focal deficits PSYCHIATRIC: Mood and affect appropriate LABORATORY DATA: See below. MICROBIOLOGY: BCx NG at 48 hrs IMAGING: CT of tib/fib with contrast: Diffuse superficial soft tissue edema throughout the left lower leg, consistent with the history of cellulitis. No evidence of necrotizing fasciitis, myonecrosis or osteomyelitis. LLE arterial US: No significant stenoses are identified. There is soft tissue edema throughout the left lower extremity. Ultrasonography of a focal palpable area in the left kidd identifies a complex fluid collection. Vascular US: No evidence of deep vein thrombosis. There is a subcutaneous lesion anteriorly left lower extremity just below the level of the knee as described above. LL Extremity CT: 1. No CT evidence for an abscess, necrotizing fasciitis, or osteomyelitis in the left knee or left calf. 2. Soft tissue swelling, edema in the subcutaneous tissues, and thickening of the skin in the left knee and left calf, which is compatible with cellulitis. 3. Tricompartmental osteoarthritis and chondrocalcinosis involving the left knee and a moderate left knee joint effusion. ] ASSESSMENT: This is a 75 year old male with PMH of ESRD ON HD, CAD s/p CABG and stenting, NIDDM admitted for LLE cellulitis. PLAN: LLE Cellulitis- slightly increased with increased tenderness -afebrile, erythema and tenderness decreased. I agree steroids helped 06/20/20 -Imaging above, no abscess -ESR and CRP slightly decreased -Hx of LLE cellulitis in past treated with abx -could not tolerate PO zyvox, now on IV, pain control -Trialing with steroids to see if this helps improve pain, swelling -PT: Recommend home PT upon d/c to ensure safe progression of gait after d/c -ID consulted, to discuss with her in the AM. ESRD on HD -HD 06/21/20 -Nephrology following -Daily labs NIDDM -BS slightly elevated -Watch as with steroids will likely increase -AC/HS FS and ISS, consistent carb diet HTN -Slightly elevated this AM -C/w valsartan, torsemide, clonidine patch CAD s/p CABG stenting, [place] -C/w home treatment Hx of HFpEF, not in exacerbation -C/w home medications, including diuretic TIA -Continue plavix, asa Hx a-fib -Rate controlled, continue eliquis HLD -Continue atorvastatin Anxiety -xanax prn Hypothyroidism -Continue levothyroxine Gout - continue allopurinol BPH - Continue flomax GERD - continue pepcid DVT -C/w eliquis DISPOSITION: ID consulted, recommended abx changed above but could not tolerate PO. Will TB after weekend for oral regimen suggestions. C/w PT, plan is discharge home with services when medically improved. VS, I&O, 24H, Sadiq Vital Signs/I&O Vital Signs Date Time Temp Pulse Resp B/P (MAP) Pulse Ox O2 Delivery O2 Flow Rate FiO2 06/23/20 14:00 98.2 102 18 176/71 (106) 99 Room Air I&O- Last 24 Hours up to 6 AM 06/23/20 06:00 Intake Total 1935 ml Output Total 0 ml Balance 1935 ml Laboratory Data 24H LABS Laboratory Tests 2 06/22/20 17:15: Bedside Glucose (Misc Panel) 95 06/22/20 20:24: Bedside Glucose (Misc Panel) 155H 06/23/20 05:39: Nucleated Red Blood Cells % (auto) 0.0, Anion Gap 7L, Glomerular Filtration Rate 11.9L, Calcium Level 8.9 06/23/20 11:34: Bedside Glucose (Misc Panel) 203H CBC/BMP Laboratory Tests 06/23/20 05:39 Microbiology Microbiology 06/17/20 Blood Culture - Final, Complete NO GROWTH AFTER 5 DAYS 06/17/20 Blood Culture - Final, Complete NO GROWTH AFTER 5 DAYS Current Medications Current Medications Medications (Trade) Dose Ordered Sig/Christian Route PRN Reason Start Time Stop Time Status Last Admin Dose Admin Acetaminophen (Tylenol Tab) 650 mg Q4H PRN PO MILD PAIN OR FEVER 06/17/20 23:35 06/21/20 20:45 Al Hydrox/Mg Hydrox/Simethicone (Mylanta) 30 ml Q4HP PRN PO HEARTBURN 06/22/20 09:40 06/22/20 10:28 Allopurinol (Zyloprim) 100 mg DAILY PO 06/18/20 09:00 06/23/20 10:11 Alprazolam (Xanax) 0.5 mg DAILY PRN PO ANXIETY 06/18/20 03:30 Apixaban (Eliquis) 2.5 mg BID PO 06/18/20 09:00 06/23/20 10:11 Atorvastatin Calcium (Lipitor) 40 mg QHS PO 06/17/20 21:00 06/22/20 21:11 Calcitriol (Rocaltrol) 0.25 mcg TuThSa@0900 PO 06/18/20 09:00 06/22/20 08:35 Clonidine HCl (Ardroxru-Snm-8) 0.2 ea Th@0900 TOP 06/20/20 09:00 06/20/20 11:24 Clopidogrel Bisulfate (PLAVix) 75 mg DAILY@1200 PO 06/18/20 12:00 06/23/20 12:04 Darbepoetin Horacio (Aranesp (Dialysis Use)) 200 mcg HD IV 06/20/20 09:15 06/21/20 12:19 Dextrose (Dextrose 50%) 25 ml ASDIRECTED PRN IV SEE LABEL COMMENTS 06/20/20 17:50 Docusate Sodium (Colace) 100 mg BID PO 06/17/20 21:00 06/23/20 10:11 Emollient Cream (Vanicream) Apply to bilateral feet DAILY TOP 06/19/20 09:00 06/23/20 10:12 Famotidine (Pepcid) 20 mg Q48H PO 06/19/20 09:00 06/23/20 10:11 Glucagon (Glucagon) 1 mg ASDIRECTED PRN SC SEE LABEL COMMENTS 06/20/20 17:50 Glucose (Glucose) 16 GM ASDIRECTED PRN PO SEE LABEL COMMENTS 06/20/20 17:50 Heparin Sodium (Heparin) Please refer to ... ASDIRECTED XX 06/19/20 06:40 06/20/20 06:39 DC Heparin Sodium (Heparin) Please refer to ... ASDIRECTED XX 06/21/20 07:05 06/22/20 07:04 DC Heparin Sodium (Heparin) dose as per volume indica... ASDIRECTED PRN IV SEE LABEL COMMENTS 06/19/20 06:40 06/20/20 06:39 DC Heparin Sodium (Heparin) dose as per volume indica... ASDIRECTED PRN IV SEE LABEL COMMENTS 06/21/20 07:05 06/22/20 07:04 DC Home Med (Med Rec Complete!) ASDIRECTED XX 06/18/20 03:20 06/18/20 03:26 DC Insulin Human Lispro (HumaLOG INSULIN) See Protocol Table AC SC 06/20/20 17:30 06/23/20 12:04 Insulin Human Lispro (HumaLOG INSULIN) See Protocol Table QHS SC 06/20/20 21:00 Levothyroxine Sodium (Synthroid) 88 mcg DAILY PO 06/18/20 09:00 06/23/20 10:10 Lidocaine (Lidoderm Patch) 1 patch DAILY PRN TD PAIN 06/18/20 03:30 06/23/20 10:09 Linezolid (Zyvox) 600 mg BID PO 06/21/20 21:00 06/22/20 10:54 DC 06/22/20 10:28 Linezolid 600 mg/ IV Miscellaneous Supplies 300 ml @ 150 mls/hr Q12H IV 06/22/20 21:00 06/23/20 10:12 Magnesium Hydroxide (Milk Of Magnesia) 30 ml DAILY PRN PO CONSTIPATION 06/17/20 23:35 Morphine Sulfate (Morphine Sulfate Inj) 2 mg Q6H PRN IV MODERATE PAIN (PS 5-7) 06/18/20 03:10 06/23/20 05:57 Multivitamins (Theragram-M) 1 tab DAILY PO 06/18/20 09:00 06/23/20 10:12 Nitroglycerin (Nitrostat (1/ 150)) 0.4 mg Q5M PRN SL CHEST PAIN 06/18/20 03:30 Non-Formulary Medication ( See Comment Field Below ) CHECK TO SEE IF THE PATIENT... DAILY@1600 XX 06/19/20 16:00 06/21/20 16:58 DC 06/19/20 17:46 Non-Formulary Medication ( See Comment Field Below ) REMOVE LIDODERM PATCH DAILYPRN PRN XX SEE LABEL COMMENTS 06/18/20 03:40 Non-Formulary Medication ( See Comment Field Below ) VANCO INTERMIT. DOSING ASDIRECTED XX 06/18/20 02:35 06/18/20 14:25 DC Ondansetron HCl (Zofran) 4 mg Q6H PO 06/22/20 12:00 06/23/20 12:04 Pantoprazole Sodium (Protonix) 40 mg DAILY PO 06/18/20 09:00 06/23/20 10:11 Ramelteon (Rozerem) 8 mg QHS PRN PO INSOMNIA 06/18/20 01:20 06/22/20 23:31 Simethicone (Mylicon) 80 mg TIDP PRN PO GAS PAIN 06/19/20 08:20 06/19/20 13:27 Sodium Chloride 1,000 ml @ 100 mls/hr Q10H IV 06/17/20 22:10 06/18/20 02:38 DC 06/18/20 02:10 Tamsulosin HCl (Flomax) 0.4 mg DAILY PO 06/18/20 09:00 06/23/20 10:11 Torsemide (Demadex) 50 mg BID@0900,1700 PO 06/18/20 09:00 06/23/20 10:10 Valsartan (Diovan) 160 mg DAILY PO 06/18/20 09:00 06/23/20 10:11 Vancomycin HCl 1000 mg/IV Miscellaneous Supplies 1 each/ Sodium Chloride 270 ml @ 270 mls/hr HD IV 06/19/20 16:00 06/21/20 16:23 DC 06/19/20 17:45 Allergies Coded Allergies: Penicillins (Verified Allergy, Mild, rash/itching, 06/17/20) Tetracyclines (Verified Allergy, Mild, ITCHING, 06/17/20) Sulfa (Sulfonamide Antibiotics) (Unverified Allergy, Unknown, unknown, 06/17/20) erythromycin base (Unverified Allergy, Unknown, unknown, 06/17/20) minoxidil (Verified Adverse Reaction, Intermediate, ANASARCA, 06/17/20) Contrast Media (Verified Adverse Reaction, Mild, MADE LEG TURN RED, 06/17/20) amlodipine (Verified Adverse Reaction, Mild, FLUID RETENTION, 06/17/20) carvedilol (Verified Adverse Reaction, Mild, FLUID RETENTION, 06/17/20) hydralazine (Verified Adverse Reaction, Mild, FLUID RETENTION, 06/17/20) cephalexin (Unverified Adverse Reaction, Unknown, FLUID RETENTION, 06/17/20) Matilda Farris MD Jun 23, 2020 15:42
--- NOTE | 2020-06-23 19:16 | IPN ---
NEPHROLOGY PROGRESS NOTE DATE: 06/23/2020 SUBJECTIVE: Patient was seen and examined at the bedside today morning. He is afebrile, hemodynamically stable. He reports left leg tenderness, which is mild and persistent. Edema is getting better. He continues to be on antibiotics. OBJECTIVE: VITAL SIGNS: Temperature 98.2 degrees Fahrenheit, blood pressure 137/60, pulse 102, respiratory rate 18, saturating 99% on room air. INTAKE AND OUTPUT: There is no significant urine output recorded. Last ultrafiltration was two days ago, on Wednesday. Weight in the bed scale is not available. PHYSICAL EXAMINATION: GENERAL: Patient is awake, alert, oriented times three, sitting up in the bed, no apparent distress. HEAD AND NECK EXAM: Extraocular muscles intact. Pupils equally round and reactive to light. Mucous membranes are moist. Neck is supple. There is no jugular venous distention (JVD). He has a tunneled hemodialysis catheter. CARDIOVASCULAR: S1, S2. Regular rate. There is 1+ edema of the left lower extremity. RESPIRATORY: Chest is clear to auscultation bilaterally. Bilateral equal air entry. No rales or rhonchi. ABDOMEN: Soft. Positive bowel sounds. Nontender. No organomegaly. MUSCULOSKELETAL: Patient has mild erythema on the left leg and mild tenderness in the left leg. CENTRAL NERVOUS SYSTEM (NURSE EXAMINER): No focal deficits. Power is 5/5 in all extremities. LABORATORY REVIEW: CBC showed a WBC 3.9, hemoglobin 10.6, platelets 113. BMP showed sodium 133, potassium 4.6, chloride 97, bicarbonate 29, BUN 72, creatinine 5. CURRENT INPATIENT MEDICATIONS: Patient's medications were all reviewed by myself. He continues to be on oral linezolid. No other significant change in the medications as compared with yesterday. ASSESSMENT AND PLAN: 1. End-stage renal disease. Patient is Wednesday, Wednesday, Wednesday dialysis. He will be dialyzed tomorrow morning, according to his regular schedule. 2. Left leg cellulitis. Patient is currently on Zyvox. He was also given a dose of Solu-Medrol to reduce the pain and swelling of the left leg. The rest of the management is as per infectious disease (ID) recommendations. 3. History of hypertension. Continue current dose of clonidine patch, diuretic and valsartan 100 mg by mouth daily. 4. Chronic gout secondary to end-stage renal disease. Continue current dose of allopurinol 100 mg by mouth daily. 5. Secondary hyperparathyroidism. Continue current dose of calcitriol. 6. Anemia in end-stage renal disease. Hemoglobin is 10.6, which is optimal. He continues to be on Aranesp 200 mcg with dialysis.
[2020-06-23] MEDS: ATORVASTATIN 20 MG TAB PO SCH (21:02)
[2020-06-23 22:00] VITALS: BP 160/72
[2020-06-24] MEDS ORDERED: ACETAMINOPHEN 500 MG TAB PO ONE (01:20)
[2020-06-24] MEDS: RAMELTEON 8 MG TAB (ROZEREM) PO PRN (01:30)
[2020-06-24 06:00] VITALS: BP 149/84
[2020-06-24] MEDS: ONDANSETRON 4 MG TAB PO SCH ×4 (06:30→23:50)
[2020-06-24] MEDS: LINEZOLID 600 MG in IV 1 EA IV SCH (06:37)
[2020-06-24 07:04] LABS: HEMATOCRIT 32.9 % (42.0-52.0); HEMOGLOBIN 10.5 g/dl (13.5-17.5); MEAN CORPUSCULAR HEMOGLOBIN 31.4 pg (27.0-33.0); MEAN CORPUSCULAR HGB CONC 31.9 g/dl (32.0-36.5); MEAN CORPUSCULAR VOLUME 98.5 fl (80.0-96.0); PLATELET COUNT, AUTOMATED 126 10^3/uL (150-450); RED BLOOD COUNT 3.34 10^6/uL (4.30-6.10); WHITE BLOOD COUNT 4.5 10^3/uL (4.0-10.0)
[2020-06-24 07:47] LABS: C REACTIVE PROTEIN QUANTITATIV 0.34 MG/DL (0.00-0.30); CREATININE FOR GFR 6.01 MG/DL (0.70-1.30); GLOMERULAR FILTRATION RATE 9.7 (>42); POTASSIUM SERUM 5.7 MEQ/L (3.5-5.1)
[2020-06-24 07:56] LABS: ERYTHROCYTE SEDIMENTATION RATE 12 mm/hr (0-20)
[2020-06-24] MEDS: TAMSULOSIN 0.4 MG CAP PO SCH (07:57)
[2020-06-24] MEDS: MULTIVITAMINS/MINERALS THERAP 1 TAB PO SCH (07:57)
[2020-06-24] MEDS: DOCUSATE SODIUM 100MG CAPSULE PO SCH ×2 (07:57→21:03)
[2020-06-24] MEDS: TORSEMIDE (DEMADEX) 50 MG PER 1/2 TAB PO SCH ×2 (07:57→18:24)
[2020-06-24] MEDS: allopurinoL 100 MG TAB PO SCH (07:57)
[2020-06-24] MEDS: PANTOPRAZOLE 40MG TAB (PROTONIX) PO SCH (07:57)
[2020-06-24] MEDS: APIXABAN 2.5 MG TAB (ELIQUIS) PO SCH ×2 (07:58→21:03)
[2020-06-24] MEDS: LEVOTHYROXINE 88MCG TABLET (0.088 MG) PO SCH (07:58)
[2020-06-24] MEDS: VALSARTAN 80 MG TAB (DIOVAN) PO SCH (07:58)
[2020-06-24] MEDS: HumaLOG INSULIN (NovoLOG) PER UNIT SC SCH ×4 (08:00→21:00)
[2020-06-24] MEDS: LIDOCAINE 5% (LIDODERM) PATCH TD PRN (08:26)
[2020-06-24] MEDS ORDERED: ACET32TAB PO (08:46)
[2020-06-24] MEDS ORDERED: APAP325T4 PO (08:56)
[2020-06-24] MEDS: VANICREAM MOISTURIZING SKIN CREAM 113GM TUBE TOP SCH (09:00)
[2020-06-24] MEDS: CLOPIDOGREL 75 MG TAB PO SCH (12:59)
[2020-06-24] MEDS: MAALOX 30 ML SUSP *UDC PO PRN (13:12)
--- NOTE | 2020-06-24 13:44 | IPNPDOC ---
Subjective General Date/Time Seen The patient was seen on 06/24/20 at 13:39. Subject Chief Complaint/History The patient is a 75-year-old male admitted with a reason for visit of Cellulitis Of L Lower Extremity,Esrd. SUBJECTIVE Mr. Willson was seen and examined at the bedside in dialysis this morning. He has no complaints, and no issues reported overnight. He will be discharged today and the plan for outpatient follow-up with nephrology was discussed. The patient had no concerns. OBJECTIVE PHYSICAL EXAMINATION: VITAL SIGNS: see below GENERAL: alert and oriented, in no apparent distress, pleasant and conversant in full sentences. HEENT: PERRL, EOMI, Oral mucous membranes are moist without lesions. NECK: The patient has no noted JVD. No adenopathy is appreciated. No thyromegaly CHEST/LUNGS: Lungs are clear bilaterally without rhonchi, rales, or wheezes. There is no subcutaneous air appreciated. There is no tenderness to the chest wall. CHEST WALL: R internal jugular hemodialysis catheter in place. No surrounding erythema. HEART: irregularly irregular. No murmurs, rubs, or gallops are appreciated. Di stal pulses are 2+. No carotid bruits appreciated. ABDOMEN: Soft, nontender, and nondistended. Bowel sounds are positive. No organomegaly is appreciated. No masses are appreciated. There are no peritoneal signs. There is no [place] sign. EXTREMITIES: There is trace edema in the left lower extremity. There is a large (10 x 12 cm) area of erythema which has been outlined on the left lower leg, anterior surface, and swelling has decreased over time. The area is slightly warm to the touch. There is an area on the kidd just below the knee with 3 hard discrete notches. Right lower extremity has no edema. Pulses are intact SKIN: See above PSYCHIATRIC: AAO x 3, normal mood/affect NEUROLOGIC: 5 out of 5 strength in all or extremities, no other obvious focal deficits LABORATORY DATA: Please see below. IMAGING: No new imaging ASSESSMENT/PLAN: This is a 75-year-old male with end-stage renal disease on dialysis, hypertension, CAD who presents with about 1 week of worsening left lower extremity pain, difficulty ambulating, redness and erythema of the skin concerning for cellulitis. Nephrology service consulted for hemodialysis management. 1. End-stage renal disease on hemodialysis: -Hemodialysis today per M/W/ schedule. Plan for discharge today and patient will continue hemodialysis in outpatient setting -Electrolytes WNL 2. Anemia of chronic kidney disease: -Hemoglobin stable at 10.5 today -Continue Aranesp with HD 3. Renovascular hypertension: -Continue home dose of clonidine -Continue home valsartan 160 mg by mouth daily 4. Secondary hyperparathyroidism: -Calcium 9.0 today -Continue calcitriol 5. Left lower extremity swelling, concerning for cellulitis: The patient has fernando e improvement in the left lower extremity swelling, etiology still somewhat unclear as there was not much change with antibiotics -Patient completed course of oral Zyvox while inpatient 6. CAD, recent NE, history of CABG: -Continue aspirin, Plavix, statin 7. History of Atrial fibrillation: -Rate controlled at this time, continue Eliquis 8. History of diastolic CHF, preserved EF: -Continue Torsemide 50mg BID DISPOSITION: Discharged home today, follow up with nephrology outpatient Current Medications Current Medications Current Medications Medications (Trade) Dose Ordered Sig/Christian Route PRN Reason Start Time Stop Time Status Last Admin Dose Admin Acetaminophen (Tylenol Tab) 650 mg Q4H PRN PO MILD PAIN OR FEVER 06/17/20 23:35 06/21/20 20:45 Al Hydrox/Mg Hydrox/Simethicone (Mylanta) 30 ml Q4HP PRN PO HEARTBURN 06/22/20 09:40 06/24/20 13:12 Allopurinol (Zyloprim) 100 mg DAILY PO 06/18/20 09:00 06/24/20 07:57 Alprazolam (Xanax) 0.5 mg DAILY PRN PO ANXIETY 06/18/20 03:30 06/24/20 08:17 DC Apixaban (Eliquis) 2.5 mg BID PO 06/18/20 09:00 06/24/20 07:58 Atorvastatin Calcium (Lipitor) 40 mg QHS PO 06/17/20 21:00 06/23/20 21:02 Calcitriol (Rocaltrol) 0.25 mcg TuThSa@0900 PO 06/18/20 09:00 06/22/20 08:35 Clonidine HCl (Mzoojulo-Amx-6) 0.2 ea Th@0900 TOP 06/20/20 09:00 06/20/20 11:24 Clopidogrel Bisulfate (PLAVix) 75 mg DAILY@1200 PO 06/18/20 12:00 06/24/20 12:59 Darbepoetin Horacio (Aranesp (Dialysis Use)) 200 mcg HD IV 06/20/20 09:15 06/21/20 12:19 Dextrose (Dextrose 50%) 25 ml ASDIRECTED PRN IV SEE LABEL COMMENTS 06/20/20 17:50 Docusate Sodium (Colace) 100 mg BID PO 06/17/20 21:00 06/24/20 07:57 Emollient Cream (Vanicream) Apply to bilateral feet DAILY TOP 06/19/20 09:00 06/23/20 10:12 Famotidine (Pepcid) 20 mg Q48H PO 06/19/20 09:00 06/23/20 10:11 Glucagon (Glucagon) 1 mg ASDIRECTED PRN SC SEE LABEL COMMENTS 06/20/20 17:50 Glucose (Glucose) 16 GM ASDIRECTED PRN PO SEE LABEL COMMENTS 06/20/20 17:50 Heparin Sodium (Heparin) Please refer to ... ASDIRECTED XX 06/24/20 06:00 06/25/20 05:59 Heparin Sodium (Heparin) Please refer to ... ASDIRECTED XX 06/19/20 06:40 06/20/20 06:39 DC Heparin Sodium (Heparin) Please refer to ... ASDIRECTED XX 06/21/20 07:05 06/22/20 07:04 DC Heparin Sodium (Heparin) dose as per volume indica... ASDIRECTED PRN IV SEE LABEL COMMENTS 06/24/20 06:00 06/24/20 18:49 Heparin Sodium (Heparin) dose as per volume indica... ASDIRECTED PRN IV SEE LABEL COMMENTS 06/19/20 06:40 06/20/20 06:39 DC Heparin Sodium (Heparin) dose as per volume indica... ASDIRECTED PRN IV SEE LABEL COMMENTS 06/21/20 07:05 06/22/20 07:04 DC Home Med (Med Rec Complete!) ASDIRECTED XX 06/18/20 03:20 06/18/20 03:26 DC Insulin Human Lispro (HumaLOG INSULIN) See Protocol Table AC SC 06/20/20 17:30 06/24/20 12:59 Insulin Human Lispro (HumaLOG INSULIN) See Protocol Table QHS SC 06/20/20 21:00 Levothyroxine Sodium (Synthroid) 88 mcg DAILY PO 06/18/20 09:00 06/24/20 07:58 Lidocaine (Lidoderm Patch) 1 patch DAILY PRN TD PAIN 06/18/20 03:30 06/24/20 08:26 Linezolid (Zyvox) 600 mg BID PO 06/21/20 21:00 06/22/20 10:54 DC 06/22/20 10:28 Linezolid 600 mg/ IV Miscellaneous Supplies 300 ml @ 150 mls/hr Q12H IV 06/22/20 21:00 06/24/20 06:37 Magnesium Hydroxide (Milk Of Magnesia) 30 ml DAILY PRN PO CONSTIPATION 06/17/20 23:35 Morphine Sulfate (Morphine Sulfate Inj) 2 mg Q6H PRN IV MODERATE PAIN (PS 5-7) 06/18/20 03:10 06/24/20 08:17 DC 06/23/20 23:46 Multivitamins (Theragram-M) 1 tab DAILY PO 06/18/20 09:00 06/24/20 07:57 Nitroglycerin (Nitrostat (1/ 150)) 0.4 mg Q5M PRN SL CHEST PAIN 06/18/20 03:30 Non-Formulary Medication ( See Comment Field Below ) CHECK TO SEE IF THE PATIENT... DAILY@1600 XX 06/19/20 16:00 06/21/20 16:58 DC 06/19/20 17:46 Non-Formulary Medication ( See Comment Field Below ) REMOVE LIDODERM PATCH DAILYPRN PRN XX SEE LABEL COMMENTS 06/18/20 03:40 Non-Formulary Medication ( See Comment Field Below ) [facility]. DOSING ASDIRECTED XX 06/18/20 02:35 06/18/20 14:25 DC Ondansetron HCl (Zofran) 4 mg Q6H PO 06/22/20 12:00 06/24/20 12:59 Pantoprazole Sodium (Protonix) 40 mg DAILY PO 06/18/20 09:00 06/24/20 07:57 Ramelteon (Rozerem) 8 mg QHS PRN PO INSOMNIA 06/18/20 01:20 06/24/20 01:30 Simethicone (Mylicon) 80 mg TIDP PRN PO GAS PAIN 06/19/20 08:20 06/19/20 13:27 Sodium Chloride 1,000 ml @ 100 mls/hr Q10H IV 06/17/20 22:10 06/18/20 02:38 DC 06/18/20 02:10 Tamsulosin HCl (Flomax) 0.4 mg DAILY PO 06/18/20 09:00 06/24/20 07:57 Torsemide (Demadex) 50 mg BID@0900,1700 PO 06/18/20 09:00 06/24/20 07:57 Valsartan (Diovan) 160 mg DAILY PO 06/18/20 09:00 06/24/20 07:58 Vancomycin HCl 1000 mg/IV Miscellaneous Supplies 1 each/ Sodium Chloride 270 ml @ 270 mls/hr HD IV 06/19/20 16:00 06/21/20 16:23 DC 06/19/20 17:45 Allergies Coded Allergies: Penicillins (Verified Allergy, Mild, rash/itching, 06/17/20) Tetracyclines (Verified Allergy, Mild, ITCHING, 06/17/20) Sulfa (Sulfonamide Antibiotics) (Unverified Allergy, Unknown, unknown, 06/17/20) erythromycin base (Unverified Allergy, Unknown, unknown, 06/17/20) minoxidil (Verified Adverse Reaction, Intermediate, ANASARCA, 06/17/20) Contrast Media (Verified Adverse Reaction, Mild, MADE LEG TURN RED, 06/17/20) amlodipine (Verified Adverse Reaction, Mild, FLUID RETENTION, 06/17/20) carvedilol (Verified Adverse Reaction, Mild, FLUID RETENTION, 06/17/20) hydralazine (Verified Adverse Reaction, Mild, FLUID RETENTION, 06/17/20) cephalexin (Unverified Adverse Reaction, Unknown, FLUID RETENTION, 06/17/20) VS,Fishbone, I+O VS, Fishbone, I+O Laboratory Tests 06/24/20 06:34 Vital Signs Date Time Temp Pulse Resp B/P (MAP) Pulse Ox O2 Delivery O2 Flow Rate FiO2 06/24/20 07:58 142/80 06/24/20 06:00 97.0 67 16 99 Room Air I&O- Last 24 Hours up to 6 AM 4/12/21 06:00 Intake Total 1800 ml Output Total 50 ml Balance 1750 ml GME ATTESTATION GME ATTESTATION My faculty preceptor for this patient encounter was physically present during the encounter and was fully available. All aspects of the patient interview, examination, medical decision making process, and medical care plan development were reviewed and approved by the faculty preceptor. The faculty preceptor is aware and concurs with the plan as stated in the body of this note and will attest to such by his/her cosignature. YUMIKO OLVERA MD Jun 24, 2020 13:44
[2020-06-24 14:00] VITALS: BP 160/73
[2020-06-24 15:45] VITALS: PULSE 55
[2020-06-24 15:58] VITALS: BP 154/68
[2020-06-24] MEDS ORDERED: SLF 3 ML SYR IV PRN (16:25)
--- NOTE | 2020-06-24 17:05 | IPNPDOC ---
Date Seen The patient was seen on 06/24/20. Progress Note SUBJECTIVE: Patient had increased chest pain with hemodialysis this afternoon, was found to be mildly hypotensive. He also received a dose of nitroglycerin upon arrival to the floor for continued chest pain. Heart rate dropped to as low as mid 30s while patient remained O2 be similar to the last with atrial fibrillation septal infarct age undetermined. Troponin was negative 1, other vital signs stable on room air. Case was discussed with Dr. 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 Last cardiac cath reviewed and confirmed that he has three-vessel disease with 33 patent grafts. A new drug-eluting stent was placed in the distal left circumflex on his last trip down to [facility]. Decision was made to continue to cycle cardiac enzymes and monitor for any worsening symptoms as [place] was likely secondary to hypo-perfusion from hemodialysis. In regards to his left lower extremity cellulitis, decision was made to continue with another day of antibiotics but not discharge home with additional antibiotic treatment. There could be a vasculitis component. Decision was made to keep the patient another night to monitor for chest pressure/tightness to ensure that nothing fall that would require a transfer to [place]. Denies sob, fevers, chills. OBJECTIVE: PHYSICAL EXAMINATION: VITAL SIGNS: See Below GENERAL APPEARANCE: NAD, resting in bed. AAOx 3 HEENT: No mass or lesion. No scleral icterus or conjunctival erythema. Nares patent. Oral mucosa moist CARDIOVASCULAR: bradycardic, sinus . No murmurs, rubs or gallops LUNGS: CTAB. No wheezing, rales, rhonchi. CHEST: permacath in right chest ABDOMEN: Soft, non-tender. No tenderness MUSCULOSKELETAL:No joint deformity EXTREMITIES: Area of erythema/discoloration located on the distal LE on kidd. Another area high up on kidd similar to 06/23/20, tender . No drainage or vesicles noted. Pulses present NEUROLOGICAL: CN 2-12 intact, no focal deficits PSYCHIATRIC: Mood and affect appropriate LABORATORY DATA: See below. MICROBIOLOGY: BCx NG at 48 hrs IMAGING: CT of tib/fib with contrast: Diffuse superficial soft tissue edema throughout the left lower leg, consistent with the history of cellulitis. No evidence of necrotizing fasciitis, myonecrosis or osteomyelitis. LLE arterial US: No significant stenoses are identified. There is soft tissue edema throughout the left lower extremity. Ultrasonography of a focal palpable area in the left kidd identifies a complex fluid collection. Vascular US: No evidence of deep vein thrombosis. There is a subcutaneous lesion anteriorly left lower extremity just below the level of the knee as described above. LL Extremity CT: 1. No CT evidence for an abscess, necrotizing fasciitis, or osteomyelitis in the left knee or left calf. 2. Soft tissue swelling, edema in the subcutaneous tissues, and thickening of the skin in the left knee and left calf, which is compatible with cellulitis. 3. Tricompartmental osteoarthritis and chondrocalcinosis involving the left knee and a moderate left knee joint effusion. ] ASSESSMENT: This is a 75 year old male with PMH of ESRD ON HD, CAD s/p CABG and stenting, NIDDM admitted for LLE cellulitis. PLAN: Chest pain likely angina 2/2 to hypoperfusion with hemodialysis, r/o ACS -Hx of CAD multivessel disease, recent percutaneous intervention with EMELYN placed in distal circumflex artery. -Trop neg, ECG appeared similar to baseline- no new ST or T wave changes -S/p nitro which dropped BP slightly , improved -cycling 2 more sets of troponins throughout evening, tele, transferred to PCU for closer monitoring -On plavix, eliquis, statin. Not on CCB and BB- per cardiology DO NOT give CCB, BB. -Can add morphine PRN, not on O2 currently- saturating well on RA Atrial fibrillation with slow ventricular response -HR dropped to 30's on floor, noted pauses x 2 upon arrival to PCU recorded -Discussed with Dr. Johnson: Stopping clonidine completely -Avoid BB and CCB -If HR drops again and patient becomes symptomatic, give atropine 0.3 x 1 dose, call Dr. Johnson to discuss next step -Tele LLE Cellulitis- slightly increased with increased tenderness. Cannot r/o vasculitis as well with persistent redness that is improved with steroids -Have trialed steroids and seemed to have helped -Imaging above, no abscess -ESR and CRP slightly decreased -Hx of LLE cellulitis in past treated with abx -could not tolerate PO zyvox, now on IV zyvox (to be last day), pain control -PT: Recommend home PT upon d/c to ensure safe progression of gait after d/c -ID consulted and discussed plan: no longer needing abx after today, do not discharge home with steroids as may mask what is needing to be diagnosed. -Will likely need rheum or derm referral as o/p ESRD on HD -HD 06/21/20 -Nephrology following -Daily labs NIDDM -BS slightly elevated -Watch as with steroids will likely increase -AC/HS FS and ISS, consistent carb diet HTN -Slightly elevated this AM -C/w valsartan, torsemide, clonidine patch Hx of HFpEF, not in exacerbation -C/w home medications, including diuretic TIA -Continue plavix, asa Hx a-fib -Rate controlled, continue eliquis HLD -Continue atorvastatin Anxiety -xanax prn Hypothyroidism -Continue levothyroxine Gout - continue allopurinol BPH - Continue flomax GERD - continue pepcid DVT -C/w eliquis DISPOSITION: Plan was to discharge today until he had chest pain and bradycardia above. D/c abx 06/25/20, can do vasculitis w/u as o/p. Cleared by PT this hospital stay. If cardiac issues resolve by AM can be discharged. If worsen overnight, transfer to [facility] if possible. Dr. Johnson aware of current events with patient. VS, I&O, 24H, Fishbone Vital Signs/I&O Vital Signs Date Time Temp Pulse Resp B/P (MAP) Pulse Ox O2 Delivery O2 Flow Rate FiO2 06/24/20 15:58 97.1 55 18 154/68 (96) 100 Room Air I&O- Last 24 Hours up to 6 AM 06/24/20 06:00 Intake Total 1800 ml Output Total 50 ml Balance 1750 ml Laboratory Data 24H LABS Laboratory Tests 2 06/23/20 20:49: Bedside Glucose (Misc Panel) 224H 06/24/20 06:34: Nucleated Red Blood Cells % (auto) 0.0, Erythrocyte Sedimentation Rate 12, Anion Gap 10, Glomerular Filtration Rate 9.7L, Calcium Level 9.0, C-Reactive Protein, Quantitative 0.34H 06/24/20 11:36: Bedside Glucose (Misc Panel) 153H 06/24/20 12:55: Troponin I 0.02 CBC/BMP Laboratory Tests 06/24/20 06:34 Microbiology Microbiology 06/17/20 Blood Culture - Final, Complete NO GROWTH AFTER 5 DAYS 06/17/20 Blood Culture - Final, Complete NO GROWTH AFTER 5 DAYS Current Medications Current Medications Medications (Trade) Dose Ordered Sig/Christian Route PRN Reason Start Time Stop Time Status Last Admin Dose Admin Acetaminophen (Tylenol Tab) 650 mg Q4H PRN PO MILD PAIN OR FEVER 06/17/20 23:35 06/21/20 20:45 Al Hydrox/Mg Hydrox/Simethicone (Mylanta) 30 ml Q4HP PRN PO HEARTBURN 06/22/20 09:40 06/24/20 13:12 Allopurinol (Zyloprim) 100 mg DAILY PO 06/18/20 09:00 06/24/20 07:57 Alprazolam (Xanax) 0.5 mg DAILY PRN PO ANXIETY 06/18/20 03:30 06/24/20 08:17 DC Apixaban (Eliquis) 2.5 mg BID PO 06/18/20 09:00 06/24/20 07:58 Atorvastatin Calcium (Lipitor) 40 mg QHS PO 06/17/20 21:00 06/23/20 21:02 Calcitriol (Rocaltrol) 0.25 mcg TuThSa@0900 PO 06/18/20 09:00 06/22/20 08:35 Clonidine HCl (Mailzsct-Azu-7) 0.1 ea Th@0900 TOP 06/27/20 09:00 06/24/20 15:53 DC Clonidine HCl (Jrkpuwqt-Jxk-1) 0.2 ea Th@0900 TOP 06/20/20 09:00 06/24/20 15:43 DC 06/20/20 11:24 Clopidogrel Bisulfate (PLAVix) 75 mg DAILY@1200 PO 06/18/20 12:00 06/24/20 12:59 Darbepoetin Horacio (Aranesp (Dialysis Use)) 200 mcg HD IV 06/20/20 09:15 06/21/20 12:19 Dextrose (Dextrose 50%) 25 ml ASDIRECTED PRN IV SEE LABEL COMMENTS 06/20/20 17:50 Docusate Sodium (Colace) 100 mg BID PO 06/17/20 21:00 06/24/20 07:57 Emollient Cream (Vanicream) Apply to bilateral feet DAILY TOP 06/19/20 09:00 06/23/20 10:12 Famotidine (Pepcid) 20 mg Q48H PO 06/19/20 09:00 06/23/20 10:11 Glucagon (Glucagon) 1 mg ASDIRECTED PRN SC SEE LABEL COMMENTS 06/20/20 17:50 Glucose (Glucose) 16 GM ASDIRECTED PRN PO SEE LABEL COMMENTS 06/20/20 17:50 Heparin Sodium (Heparin) Please refer to ... ASDIRECTED XX 06/24/20 06:00 06/25/20 05:59 Heparin Sodium (Heparin) Please refer to ... ASDIRECTED XX 06/19/20 06:40 06/20/20 06:39 DC Heparin Sodium (Heparin) Please refer to ... ASDIRECTED XX 06/21/20 07:05 06/22/20 07:04 DC Heparin Sodium (Heparin) dose as per volume indica... ASDIRECTED PRN IV SEE LABEL COMMENTS 06/24/20 06:00 06/24/20 18:49 Heparin Sodium (Heparin) dose as per volume indica... ASDIRECTED PRN IV SEE LABEL COMMENTS 06/19/20 06:40 06/20/20 06:39 DC Heparin Sodium (Heparin) dose as per volume indica... ASDIRECTED PRN IV SEE LABEL COMMENTS 06/21/20 07:05 06/22/20 07:04 DC Home Med (Med Rec Complete!) ASDIRECTED XX 06/18/20 03:20 06/18/20 03:26 DC Insulin Human Lispro (HumaLOG INSULIN) See Protocol Table AC SC 06/20/20 17:30 06/24/20 12:59 Insulin Human Lispro (HumaLOG INSULIN) See Protocol Table QHS SC 06/20/20 21:00 Levothyroxine Sodium (Synthroid) 88 mcg DAILY PO 06/18/20 09:00 06/24/20 07:58 Lidocaine (Lidoderm Patch) 1 patch DAILY PRN TD PAIN 06/18/20 03:30 06/24/20 08:26 Linezolid (Zyvox) 600 mg BID PO 06/21/20 21:00 06/22/20 10:54 DC 06/22/20 10:28 Linezolid 600 mg/ IV Miscellaneous Supplies 300 ml @ 150 mls/hr Q12H IV 06/22/20 21:00 06/24/20 06:37 Magnesium Hydroxide (Milk Of Magnesia) 30 ml DAILY PRN PO CONSTIPATION 06/17/20 23:35 Morphine Sulfate (Morphine Sulfate Inj) 2 mg Q6H PRN IV MODERATE PAIN (PS 5-7) 06/18/20 03:10 06/24/20 08:17 DC 06/23/20 23:46 Multivitamins (Theragram-M) 1 tab DAILY PO 06/18/20 09:00 06/24/20 07:57 Nitroglycerin (Nitrostat (1/ 150)) 0.4 mg Q5M PRN SL CHEST PAIN 06/18/20 03:30 06/24/20 14:04 Non-Formulary Medication ( See Comment Field Below ) CHECK TO SEE IF THE PATIENT... DAILY@1600 XX 06/19/20 16:00 06/21/20 16:58 DC 06/19/20 17:46 Non-Formulary Medication ( See Comment Field Below ) REMOVE LIDODERM PATCH DAILYPRN PRN XX SEE LABEL COMMENTS 06/18/20 03:40 Non-Formulary Medication ( See Comment Field Below ) [facility]. DOSING ASDIRECTED XX 06/18/20 02:35 06/18/20 14:25 DC Ondansetron HCl (Zofran) 4 mg Q6H PO 06/22/20 12:00 06/24/20 12:59 Pantoprazole Sodium (Protonix) 40 mg DAILY PO 06/18/20 09:00 06/24/20 07:57 Ramelteon (Rozerem) 8 mg QHS PRN PO INSOMNIA 06/18/20 01:20 06/24/20 01:30 Simethicone (Mylicon) 80 mg TIDP PRN PO GAS PAIN 06/19/20 08:20 06/19/20 13:27 Sodium Chloride 1,000 ml @ 100 mls/hr Q10H IV 06/17/20 22:10 06/18/20 02:38 DC 06/18/20 02:10 Sodium Chloride (Saline Lock Flush) 2 ml ASDIRECTED PRN IV SEE LABEL COMMENTS 06/24/20 16:25 Sodium Chloride (Saline Lock Flush) 2 ml SLF IV 06/24/20 22:00 Tamsulosin HCl (Flomax) 0.4 mg DAILY PO 06/18/20 09:00 06/24/20 07:57 Torsemide (Demadex) 50 mg BID@0900,1700 PO 06/18/20 09:00 06/24/20 07:57 Valsartan (Diovan) 160 mg DAILY PO 06/18/20 09:00 06/24/20 07:58 Vancomycin HCl 1000 mg/IV Miscellaneous Supplies 1 each/ Sodium Chloride 270 ml @ 270 mls/hr HD IV 06/19/20 16:00 06/21/20 16:23 DC 06/19/20 17:45 Allergies Coded Allergies: Penicillins (Verified Allergy, Mild, rash/itching, 06/17/20) Tetracyclines (Verified Allergy, Mild, ITCHING, 06/17/20) Sulfa (Sulfonamide Antibiotics) (Unverified Allergy, Unknown, unknown, 06/17/20) erythromycin base (Unverified Allergy, Unknown, unknown, 06/17/20) minoxidil (Verified Adverse Reaction, Intermediate, ANASARCA, 06/17/20) Contrast Media (Verified Adverse Reaction, Mild, MADE LEG TURN RED, 06/17/20) amlodipine (Verified Adverse Reaction, Mild, FLUID RETENTION, 06/17/20) carvedilol (Verified Adverse Reaction, Mild, FLUID RETENTION, 06/17/20) hydralazine (Verified Adverse Reaction, Mild, FLUID RETENTION, 06/17/20) cephalexin (Unverified Adverse Reaction, Unknown, FLUID RETENTION, 06/17/20) Matilda Farris MD Jun 24, 2020 17:05
[2020-06-24 17:31] LABS: CALCIUM LEVEL 9.3 MG/DL (8.8-10.2); CREATININE FOR GFR 3.79 MG/DL (0.70-1.30); GLOMERULAR FILTRATION RATE 16.6 (>42); MAGNESIUM LEVEL 1.9 MG/DL (1.8-2.4); PHOSPHORUS LEVEL 3.4 MG/DL (2.5-4.9); POTASSIUM SERUM 3.6 MEQ/L (3.5-5.1)
[2020-06-24] MEDS ORDERED: MORPHINE 2 MG/ML 1ML VIAL (J2270) IV ONE (17:50)
[2020-06-24 20:00] VITALS: BP 134/50
[2020-06-24] MEDS: ATORVASTATIN 20 MG TAB PO SCH (21:03)
[2020-06-24] MEDS: ACETAMINOPHEN TAB 650MG DOSE (2X325MG) PO PRN (22:41)
[2020-06-24] MEDS: SLF 3 ML SYR IV SCH (22:42)
--- NOTE | 2020-06-24 23:30 | ECGEPIP ---
[facility] Test Date: 2020-06-24 Pat Name: JEANNA LYLE Department: Room: [place] [address] Gender: Male [place] Clown: GRETCHEN : 1945 Requested By: Matilda Gonzalez Order Number: [id number] Reading MD: Marcio Russell Measurements Intervals [place] Rate: 49 P: OK: QRS: 51 QRSD: 98 T: 175 QT: 462 QTc: 417 Interpretive Statements Atrial fibrillation with slow ventricular response with premature ventricular or aberrantly conducted complexes Septal infarct , age undetermined Non specific ST/T abnormality Last tracing on 05/11/20, 9:59, no significant changes. Electronically Signed on 06-24-2020 23:29:52 EDT by Marcio Russell
[2020-06-25] VITALS: BP 142/62
[2020-06-25 04:00] VITALS: BP 154/72
[2020-06-25] MEDS: ONDANSETRON 4 MG TAB PO SCH ×2 (06:00→12:44)
[2020-06-25] MEDS: SLF 3 ML SYR IV SCH ×2 (06:19→12:45)
[2020-06-25 06:21] LABS: HEMATOCRIT 34.1 % (42.0-52.0); HEMOGLOBIN 10.8 g/dl (13.5-17.5); MEAN CORPUSCULAR HEMOGLOBIN 31.4 pg (27.0-33.0); MEAN CORPUSCULAR HGB CONC 31.7 g/dl (32.0-36.5); MEAN CORPUSCULAR VOLUME 99.1 fl (80.0-96.0); PLATELET COUNT, AUTOMATED 153 10^3/uL (150-450); RED BLOOD COUNT 3.44 10^6/uL (4.30-6.10); WHITE BLOOD COUNT 4.6 10^3/uL (4.0-10.0)
[2020-06-25 06:53] LABS: CALCIUM LEVEL 8.6 MG/DL (8.8-10.2); CREATININE FOR GFR 4.49 MG/DL (0.70-1.30); GLOMERULAR FILTRATION RATE 13.6 (>42); POTASSIUM SERUM 4.4 MEQ/L (3.5-5.1)
[2020-06-25 07:40] VITALS: BP 148/92
[2020-06-25] MEDS: HumaLOG INSULIN (NovoLOG) PER UNIT SC SCH ×2 (08:04→12:00)
[2020-06-25] MEDS: MULTIVITAMINS/MINERALS THERAP 1 TAB PO SCH ×2 (09:00→09:34)
[2020-06-25 09:33] VITALS: BP 148/92
[2020-06-25] MEDS: VALSARTAN 80 MG TAB (DIOVAN) PO SCH (09:33)
[2020-06-25] MEDS: FAMOTIDINE 20 MG TAB PO SCH (09:34)
[2020-06-25] MEDS: TORSEMIDE (DEMADEX) 50 MG PER 1/2 TAB PO SCH (09:34)
[2020-06-25] MEDS: allopurinoL 100 MG TAB PO SCH (09:34)
[2020-06-25] MEDS: TAMSULOSIN 0.4 MG CAP PO SCH (09:34)
[2020-06-25] MEDS: LEVOTHYROXINE 88MCG TABLET (0.088 MG) PO SCH (09:34)
[2020-06-25] MEDS: CALCITRIOL 0.25 MCG CAP (S0169) PO SCH (09:34)
[2020-06-25] MEDS: VANICREAM MOISTURIZING SKIN CREAM 113GM TUBE TOP SCH (09:35)
[2020-06-25] MEDS: DOCUSATE SODIUM 100MG CAPSULE PO SCH (09:35)
[2020-06-25] MEDS: PANTOPRAZOLE 40MG TAB (PROTONIX) PO SCH (09:35)
[2020-06-25] MEDS: LIDOCAINE 5% (LIDODERM) PATCH TD PRN (09:43)
[2020-06-25 11:15] VITALS: BP 180/80
[2020-06-25] MEDS: CLOPIDOGREL 75 MG TAB PO SCH (12:44)
--- NOTE | 2020-06-25 12:47 | DS.PDOC ---
Discharge Summary General Date of Admission Jun 18, 2020 at 11:01 Date of Discharge 06/25/2020 Attending Physician: PARMINDER MCKEON MD Discharge Summary PROCEDURES PERFORMED DURING STAY: None ADMITTING DIAGNOSES: LLE cellulitis DISCHARGE DIAGNOSES: LLE cellulitis c/f potential cutaneous vasculitis referring to dermatology outpatient at discharge ESRD on HD CAD s/p remote CABG NIDDM History of TIA History of CHF, unspecified COMPLICATIONS/CHIEF COMPLAINT: Cellulitis Of L Lower Extremity,Esrd. HISTORY OF PRESENT ILLNESS: 75 year old M with ESRD on dialysis, CAD s/p CABG, NIDDM, TIA, CHF who presented to the ED with worsening erythema of the leg, pain in the leg, and a "bump" which he felt like it was a blood clot. Patient reported that the pain began approx 6 days prior to presentation when he was in a store and he felt a sensation of being stung in his leg. When he went home that day he first felt the bump. Since then, he had increasing erythema of the area and increasing pain. HOSPITAL COURSE: While inpatient he was treated for cellulitis to completion with antibiotics with some improvement in the erythema but was also noted to have non-blanching erythema c/f potential cutaneous vasculitis. Infectious diseases recommended trial of steroids which seemed to improve the erythema but also cautioned against discharging with steroids as they may mask ongoing vasculitis process. He is now being discharged home with referral to dermatology for further e valuation and close PCP follow up. Of note on 06/24 he had an episode of substernal chest pain towards the end of his HD with transient bradycardia that later resolved and troponins were negative x 3 and EKG stable and telemetry stable. He is now being discharged home to follow up with his PCP, cardiology and referral to dermatology. DISCHARGE MEDICATIONS: Please see below. ALLERGIES: Please see below. PHYSICAL EXAMINATION ON DISCHARGE: VITAL SIGNS: Please see below. GENERAL APPEARANCE: NAD, resting in bed. AAOx 3 HEENT: No mass or lesion. No scleral icterus or conjunctival erythema. Nares patent. Oral mucosa moist CARDIOVASCULAR: bradycardic, sinus . No murmurs, rubs or gallops LUNGS: CTAB. No wheezing, rales, rhonchi. CHEST: permacath in right chest ABDOMEN: Soft, non-tender. No tenderness MUSCULOSKELETAL:No joint deformity EXTREMITIES: Area of erythema/discoloration located on the distal LE on kidd. Another area high up on kidd, TTP. No drainage or vesicles noted. Pulses present and robust. WWP. NEUROLOGICAL: CN 2-12 intact, no focal deficits PSYCHIATRIC: Mood and affect appropriate LABORATORY DATA: See below. IMAGING: CT of tib/fib with contrast: Diffuse superficial soft tissue edema throughout the left lower leg, consistent with the history of cellulitis. No evidence of necrotizing fasciitis, myonecrosis or osteomyelitis. LLE arterial US: No significant stenoses are identified. There is soft tissue edema throughout the left lower extremity. Ultrasonography of a focal palpable area in the left kidd identifies a complex fluid collection. Vascular US: No evidence of deep vein thrombosis. There is a subcutaneous lesion anteriorly left lower extremity just below the level of the knee as described above. LL Extremity CT: 1. No CT evidence for an abscess, necrotizing fasciitis, or osteomyelitis in the left knee or left calf. 2. Soft tissue swelling, edema in the subcutaneous tissues, and thickening of the skin in the left knee and left calf, which is compatible with cellulitis. 3. Tricompartmental osteoarthritis and chondrocalcinosis involving the left knee and a moderate left knee joint effusion. PROGNOSIS: Good ACTIVITY: As tolerated DIET: Regular DISCHARGE PLAN: Home with PCP follow up and derm referral DISPOSITION: Home DISCHARGE INSTRUCTIONS: Home with PCP follow up and derm referral ITEMS TO FOLLOWUP ON ON OUTPATIENT: LE erythema evaluation DISCHARGE CONDITION: Stable TIME SPENT ON DISCHARGE: 40 minutes. Vital Signs/I&Os Vital Signs Date Time Temp Pulse Resp B/P (MAP) Pulse Ox O2 Delivery O2 Flow Rate FiO2 06/25/20 12:00 97.2 82 18 100 Room Air 06/25/20 11:15 180/80 (113) I&O- Last 24 Hours up to 6 AM 06/25/20 06:00 Intake Total 540 ml Output Total 3200 ml Balance -2660 ml Laboratory Data Labs 24H Laboratory Tests 2 06/24/20 12:55: Troponin I 0.02 06/24/20 16:48: Troponin I 0.02, Anion Gap 8, Glomerular Filtration Rate 16.6L, Calcium Level 9.3, Phosphorus Level 3.4, Magnesium Level 1.9 06/24/20 17:28: Bedside Glucose (Misc Panel) 154H 06/24/20 20:32: Bedside Glucose (Misc Panel) 198H 06/24/20 21:17: Troponin I 0.02 06/25/20 05:51: Nucleated Red Blood Cells % (auto) 0.0, Anion Gap 9, Glomerular Filtration Rate 13.6L, Calcium Level 8.6L 06/25/20 12:23: Bedside Glucose (Misc Panel) 104 CBC/BMP Laboratory Tests 06/24/20 16:48 06/25/20 05:51 FSBS Laboratory Tests Test 06/24/20 17:28 06/24/20 20:32 06/25/20 12:23 Range/Units Bedside Glucose (Misc Panel) 154 198 104 83-110 MG/DL Microbiology Microbiology 06/17/20 Blood Culture - Final, Complete NO GROWTH AFTER 5 DAYS 06/17/20 Blood Culture - Final, Complete NO GROWTH AFTER 5 DAYS Discharge Medications Scheduled Allopurinol (Allopurinol) 100 Mg Tablet, 100 MG PO DAILY, (Reported) Apixaban (Eliquis) 2.5 Mg Tablet, 2.5 MG PO BID, (Reported) Atorvastatin Calcium (Atorvastatin Calcium) 40 Mg Tab, 40 MG PO QHS, (Reported) Calcitriol (Calcitriol) 0.25 Mcg Capsule, 0.25 MCG PO 3XW, (Reported) TUES, THURS, SAT Clonidine (Clonidine) 0.2 Mg Patch.tdwk, 0.2 MG TOP 1XWK, (Reported) CHANGE ON SATURDAYS Clopidogrel Bisulfate (Clopidogrel) 75 Mg Tablet, 75 MG PO DAILY, (Reported) TAKES AT NOON Famotidine (Famotidine) 20 Mg Tablet, 20 MG PO DAILY, (Reported) Levothyroxine Sodium (Levothyroxine Sodium) 88 Mcg Tablet, 88 MCG PO DAILY, (Reported) Multivitamins (Thera M Plus Tablet) 1 Tab Tab, 1 TAB PO DAILY, (Reported) Pantoprazole Sodium (Pantoprazole Sodium) 40 Mg Tablet.dr, 40 MG PO DAILY, (Reported) Tamsulosin Hcl (Tamsulosin HCl) 0.4 Mg Capsule, 0.4 G PO DAILY, (Reported) Torsemide (Torsemide) 100 Mg Tablet, 50 MG PO BID, (Reported) 0900, 1700 Valsartan (Valsartan) 160 Mg Tablet, 160 MG PO DAILY, (Reported) Scheduled PRN Acetaminophen (Acetaminophen) 325 Mg Tablet, 650 MG PO Q6HP PRN for pain or fever Alprazolam (Alprazolam) 0.5 Mg Tablet, 0.5 MG PO DAILY PRN for ANXIETY, (Reported) Lidocaine (Lidoderm) 5 % Dis, 1 PATCH TD DAILY PRN for PAIN, (Reported) APPLY TO LOWER BACK 12H ON 12H OFF Nitroglycerin (Nitrostat) 0.4 Mg Tab.subl, 0.4 MG SL NITRO PRN for CHEST PAIN, (Reported) Allergies Coded Allergies: Penicillins (Verified Allergy, Mild, rash/itching, 06/17/20) Tetracyclines (Verified Allergy, Mild, ITCHING, 06/17/20) Sulfa (Sulfonamide Antibiotics) (Unverified Allergy, Unknown, unknown, 06/17/20) erythromycin base (Unverified Allergy, Unknown, unknown, 06/17/20) minoxidil (Verified Adverse Reaction, Intermediate, ANASARCA, 06/17/20) Contrast Media (Verified Adverse Reaction, Mild, MADE LEG TURN RED, 06/17/20) amlodipine (Verified Adverse Reaction, Mild, FLUID RETENTION, 06/17/20) carvedilol (Verified Adverse Reaction, Mild, FLUID RETENTION, 06/17/20) hydralazine (Verified Adverse Reaction, Mild, FLUID RETENTION, 06/17/20) cephalexin (Unverified Adverse Reaction, Unknown, FLUID RETENTION, 06/17/20) PARMINDER MCKEON MD Jun 25, 2020 12:47
--- NOTE | 2020-06-25 12:48 | IPNPDOC ---
Text Note Date of Service The patient was seen on 06/25/20. NOTE SUBJECTIVE: -Had chest pain yesterday during HD as well as subsequent transient bradycardia that has resolved. -Denies CP, sob, fevers, chills. OBJECTIVE: VITAL SIGNS: See Below GENERAL APPEARANCE: NAD, resting in bed. AAOx 3 HEENT: No mass or lesion. No scleral icterus or conjunctival erythema. Nares patent. Oral mucosa moist CARDIOVASCULAR: RRR . No murmurs, rubs or gallops LUNGS: CTAB. No wheezing, rales, rhonchi. CHEST: permacath in right chest ABDOMEN: Soft, non-tender. No tenderness MUSCULOSKELETAL:No joint deformity EXTREMITIES: Area of erythema/discoloration located on the distal LE on kidd. Another area high up on kidd, tender . No drainage or vesicles noted. Pulses present NEUROLOGICAL: CN 2-12 intact, no focal deficits PSYCHIATRIC: Mood and affect appropriate LABORATORY DATA: Troponin <0.02 x 3 K 4.4 WBC 4.6 Hgb 10.8 Platelets 153 Na 135 Cr 4.49 MICROBIOLOGY: BCx NGTD IMAGING: CT of tib/fib with contrast: Diffuse superficial soft tissue edema throughout the left lower leg, consistent with the history of cellulitis. No evidence of necrotizing fasciitis, myonecrosis or osteomyelitis. LLE arterial US: No significant stenoses are identified. There is soft tissue edema throughout the left lower extremity. Ultrasonography of a focal palpable area in the left kidd identifies a complex fluid collection. Vascular US: No evidence of deep vein thrombosis. There is a subcutaneous lesion anteriorly left lower extremity just below the level of the knee as described above. LL Extremity CT: 1. No CT evidence for an abscess, necrotizing fasciitis, or osteomyelitis in the left knee or left calf. 2. Soft tissue swelling, edema in the subcutaneous tissues, and thickening of the skin in the left knee and left calf, which is compatible with cellulitis. 3. Tricompartmental osteoarthritis and chondrocalcinosis involving the left knee and a moderate left knee joint effusion. ] ASSESSMENT: This is a 75 year old male with ESRD ON HD, CAD s/p CABG and stenting, NIDDM admitted for LLE cellulitis whose course was c/b chest pain and transient bradycardia. PLAN: Chest pain likely angina 2/2 to hypoperfusion with hemodialysis, r/o ACS -Hx of CAD multivessel disease, recent percutaneous intervention with EMELYN placed in distal circumflex artery. -Trop neg, ECG appeared similar to baseline- no new ST or T wave changes -S/p nitro which dropped BP, improved -Negative troponins x 3 on 06/24 with stable NSR on tele -On plavix, eliquis, statin. Not on CCB and BB- per cardiology DO NOT give CCB, BB. Atrial fibrillation with slow ventricular response -HR dropped to 30's on floor, noted pauses x 2 upon arrival to PCU recorded, now resolved -Discussed with Dr. Johnson: stopped clonidine -Avoid BB and CCB -If HR drops again and patient becomes symptomatic, give atropine 0.3 x 1 dose, and to call Dr. Johnson to discuss next step -continue Tele while inpatient LLE Cellulitis- slightly increased with increased tenderness. Cannot r/o vasculitis as well with persistent redness that is improved with steroids -Have trialed steroids and seemed to have helped -Imaging above, no abscess -ESR and CRP slightly decreased -Hx of LLE cellulitis in past treated with abx -could not tolerate PO zyvox, now on IV zyvox (completed 06/24), pain control -PT: Recommend home PT upon d/c to ensure safe progression of gait after d/c -ID consulted and discussed plan: no longer needing abx after 06/24, do not discharge home with steroids as may mask what is needing to be diagnosed. -Will need derm referral as o/p ESRD on HD -HD 06/21/20 -Nephrology following -Daily labs NIDDM -BS slightly elevated -Watch as with steroids will likely increase -AC/HS FS and ISS, consistent carb diet HTN -Slightly elevated this AM -C/w valsartan, torsemide, clonidine patch Hx of HFpEF, not in exacerbation -C/w home medications, including diuretic TIA -Continue plavix, asa Hx a-fib -Rate controlled, continue eliquis HLD -Continue atorvastatin Anxiety -xanax prn Hypothyroidism -Continue levothyroxine Gout - continue allopurinol BPH - Continue flomax GERD - continue pepcid DVT -C/w eliquis DISPOSITION: Likely discharge today. Cleared by PT this hospital stay. VS,Fishbone, I+O VS, Fishbone, I+O Laboratory Tests 06/24/20 16:48 06/25/20 05:51 Vital Signs Date Time Temp Pulse Resp B/P (MAP) Pulse Ox O2 Delivery O2 Flow Rate FiO2 06/25/20 07:40 96.9 73 18 148/92 (110) 100 Room Air I&O- Last 24 Hours up to 6 AM 06/25/20 06:00 Intake Total 540 ml Output Total 3200 ml Balance -2660 ml PARMINDER MCKEON MD Jun 25, 2020 08:39
[2020-06-25 13:00] VITALS: BP 166/68
[2020-06-25] MEDS ORDERED: DOK1CAP7 PO (14:18)
[2020-06-25] MEDS ORDERED: MI-A80CH PO (14:18)
--- NOTE | 2020-06-25 16:39 | IPN ---
PROGRESS NOTE DATE: 06/25/2020 Mr. Willson is being discharged home today. He is concerned because his clonidine patch has been discontinued. Yesterday during dialysis he felt they removed too much fluid. Three liters, according to him, is too much for him, and he developed chest pain and bradycardia. He denies any chest pain today. No shortness of breath. He states he has lost a lot of weight. MEDICATIONS: On admission he received clindamycin times one dose from June 18 to June 21. He was on intravenous (IV) vancomycin, and June 21 to June 24 he received linezolid. Patient is doing better. His pain has improved. He is using compression stocking. He continues with some erythema of the left leg with induration but markedly improved. He is able to bear weight on it. IMPRESSION: Left lower extremity cellulitis. Has been treated with a total of 7 days of IV antibiotics. The patient was advised to keep leg elevated and followup with his primary care in the next 48 hours. If the redness worsens, would suggest repeating imaging where there is this fluid collection and possibly aspiration. There was in his left leg ultrasound a subcutaneous lesion that is hypoechoic. Could be an enlarged lymph node or other complex lesion, measuring 2.6 x 1.6 cm.
--- NOTE | 2020-06-25 16:51 | IPNPDOC ---
Subjective General Date/Time Seen The patient was seen on 06/25/20 at 16:49. Subject Chief Complaint/History The patient is a 75-year-old male admitted with a reason for visit of Cellulitis Of L Lower Extremity,Esrd. SUBJECTIVE Mr. Willson was seen and examined at the bedside this morning. His discharge was delayed as he experienced chest pain yesterday. Full workup was negative. He states the chest pain has resolved this morning. No issues reported today, the patient states he is ready for discharge. OBJECTIVE PHYSICAL EXAMINATION: VITAL SIGNS: see below GENERAL: alert and oriented, in no apparent distress, pleasant and conversant in full sentences. HEENT: PERRL, EOMI, Oral mucous membranes are moist without lesions. NECK: The patient has no noted JVD. No adenopathy is appreciated. No thyromegaly CHEST/LUNGS: Lungs are clear bilaterally without rhonchi, rales, or wheezes. There is no subcutaneous air appreciated. There is no tenderness to the chest wall. CHEST WALL: R internal jugular hemodialysis catheter in place. No surrounding erythema. HEART: irregularly irregular. No murmurs, rubs, or gallops are appreciated. Distal pulses are 2+. No carotid bruits appreciated. ABDOMEN: Soft, nontender, and nondistended. Bowel sounds are positive. No organomegaly is appreciated. No masses are appreciated. There are no peritoneal signs. There is no [place] sign. EXTREMITIES: There is trace edema in the left lower extremity. There is a large (10 x 12 cm) area of erythema which has been outlined on the left lower leg, anterior surface, and swelling has decreased over time. The area is slightly warm to the touch. There is an area on the kidd just below the knee with 3 hard discrete notches. Right lower extremity has no edema. Pulses are intact SKIN: See above PSYCHIATRIC: AAO x 3, normal mood/affect NEUROLOGIC: 5 out of 5 strength in all or extremities, no other obvious focal deficits LABORATORY DATA: Please see below. IMAGING: No new imaging ASSESSMENT/PLAN: This is a 75-year-old male with end-stage renal disease on dialysis, hypertension, CAD who presents with about 1 week of worsening left lower extremity pain, difficulty ambulating, redness and erythema of the skin concerning for cellulitis. Nephrology service consulted for hemodialysis management. 1. End-stage renal disease on hemodialysis: -Plan for discharge today and patient will continue hemodialysis in outpatient setting -Electrolytes WNL 2. Anemia of chronic kidney disease: -Hemoglobin stable at 10.8 today -Continue Aranesp with HD 3. Renovascular hypertension: -Continue home dose of clonidine -Continue home valsartan 160 mg by mouth daily 4. Secondary hyperparathyroidism: -Calcium 8.6 today -Continue calcitriol 5. Left lower extremity swelling, concerning for cellulitis: The patient has some improvement in the left lower extremity swelling, etiology still somewhat unclear as there was not much change with antibiotics -Patient completed course of oral Zyvox while inpatient 6. CAD, recent [place], history of CABG: -Continue aspirin, Plavix, statin 7. History of Atrial fibrillation: -Rate controlled at this time, continue Eliquis 8. History of diastolic CHF, preserved EF: -Continue Torsemide 50mg BID DISPOSITION: Discharged home today, follow up with nephrology outpatient Current Medications Current Medications Current Medications Medications (Trade) Dose Ordered Sig/Christian Route PRN Reason Start Time Stop Time Status Last Admin Dose Admin Acetaminophen (Tylenol Tab) 650 mg Q4H PRN PO MILD PAIN OR FEVER 06/17/20 23:35 06/25/20 15:28 DC 06/24/20 22:41 Al Hydrox/Mg Hydrox/Simethicone (Mylanta) 30 ml Q4HP PRN PO HEARTBURN 06/22/20 09:40 06/25/20 15:28 DC 06/24/20 13:12 Allopurinol (Zyloprim) 100 mg DAILY PO 06/18/20 09:00 06/25/20 15:28 DC 06/25/20 09:34 Alprazolam (Xanax) 0.5 mg DAILY PRN PO ANXIETY 06/18/20 03:30 06/24/20 08:17 DC Apixaban (Eliquis) 2.5 mg BID PO 06/18/20 09:00 06/25/20 08:59 DC 06/24/20 21:03 Atorvastatin Calcium (Lipitor) 40 mg QHS PO 06/17/20 21:00 06/25/20 15:28 DC 06/24/20 21:03 Calcitriol (Rocaltrol) 0.25 mcg TuThSa@0900 PO 06/18/20 09:00 06/25/20 15:28 DC 06/25/20 09:34 Clonidine HCl (Cdrkljsf-Qed-8) 0.1 ea Th@0900 TOP 06/27/20 09:00 06/24/20 15:53 DC Clonidine HCl (Xrpywvws-Qqt-7) 0.2 ea Th@0900 TOP 06/20/20 09:00 06/24/20 15:43 DC 06/20/20 11:24 Clopidogrel Bisulfate (PLAVix) 75 mg DAILY@1200 PO 06/18/20 12:00 06/25/20 15:28 DC 06/25/20 12:44 Darbepoetin Horacio (Aranesp (Dialysis Use)) 200 mcg HD IV 06/20/20 09:15 06/25/20 15:28 DC 06/21/20 12:19 Dextrose (Dextrose 50%) 25 ml ASDIRECTED PRN IV SEE LABEL COMMENTS 06/20/20 17:50 06/25/20 15:28 DC Docusate Sodium (Colace) 100 mg BID PO 06/17/20 21:00 06/25/20 15:28 DC 06/25/20 09:35 Emollient Cream (Vanicream) Apply to bilateral feet DAILY TOP 06/19/20 09:00 06/25/20 15:28 DC 06/25/20 09:35 Famotidine (Pepcid) 20 mg Q48H PO 06/19/20 09:00 06/25/20 15:28 DC 06/25/20 09:34 Glucagon (Glucagon) 1 mg ASDIRECTED PRN SC SEE LABEL COMMENTS 06/20/20 17:50 06/25/20 15:28 DC Glucose (Glucose) 16 GM ASDIRECTED PRN PO SEE LABEL COMMENTS 06/20/20 17:50 06/25/20 15:28 DC Heparin Sodium (Heparin) Please refer to ... ASDIRECTED XX 06/24/20 06:00 06/25/20 05:59 DC Heparin Sodium (Heparin) Please refer to ... ASDIRECTED XX 06/19/20 06:40 06/20/20 06:39 DC Heparin Sodium (Heparin) Please refer to ... ASDIRECTED XX 06/21/20 07:05 06/22/20 07:04 DC Heparin Sodium (Heparin) dose as per volume indica... ASDIRECTED PRN IV SEE LABEL COMMENTS 06/24/20 06:00 06/24/20 18:49 DC Heparin Sodium (Heparin) dose as per volume indica... ASDIRECTED PRN IV SEE LABEL COMMENTS 06/19/20 06:40 06/20/20 06:39 DC Heparin Sodium (Heparin) dose as per volume indica... ASDIRECTED PRN IV SEE LABEL COMMENTS 06/21/20 07:05 06/22/20 07:04 DC Home Med (Med Rec Complete!) ASDIRECTED XX 06/18/20 03:20 06/18/20 03:26 DC Insulin Human Lispro (HumaLOG INSULIN) See Protocol Table AC SC 06/20/20 17:30 06/25/20 15:28 DC 06/25/20 08:04 Insulin Human Lispro (HumaLOG INSULIN) See Protocol Table QHS SC 06/20/20 21:00 06/25/20 15:28 DC Levothyroxine Sodium (Synthroid) 88 mcg DAILY PO 06/18/20 09:00 06/25/20 15:28 DC 06/25/20 09:34 Lidocaine (Lidoderm Patch) 1 patch DAILY PRN TD PAIN 06/18/20 03:30 06/25/20 15:28 DC 06/25/20 09:43 Linezolid (Zyvox) 600 mg BID PO 06/21/20 21:00 06/22/20 10:54 DC 06/22/20 10:28 Linezolid 600 mg/ IV Miscellaneous Supplies 300 ml @ 150 mls/hr Q12H IV 06/22/20 21:00 06/24/20 21:15 DC 06/24/20 06:37 Magnesium Hydroxide (Milk Of Magnesia) 30 ml DAILY PRN PO CONSTIPATION 06/17/20 23:35 06/25/20 15:28 DC 06/25/20 11:12 Morphine Sulfate (Morphine Sulfate Inj) 2 mg Q6H PRN IV MODERATE PAIN (PS 5-7) 06/18/20 03:10 06/24/20 08:17 DC 06/23/20 23:46 Multivitamins (Theragram-M) 1 tab DAILY PO 06/18/20 09:00 06/25/20 15:28 DC 06/24/20 07:57 Nitroglycerin (Nitrostat (1/ 150)) 0.4 mg Q5M PRN SL CHEST PAIN 06/18/20 03:30 06/25/20 15:28 DC 06/24/20 14:04 Non-Formulary Medication ( See Comment Field Below ) CHECK TO SEE IF THE PATIENT... DAILY@1600 XX 06/19/20 16:00 06/21/20 16:58 DC 06/19/20 17:46 Non-Formulary Medication ( See Comment Field Below ) REMOVE LIDODERM PATCH DAILYPRN PRN XX SEE LABEL COMMENTS 06/18/20 03:40 06/25/20 15:28 DC Non-Formulary Medication ( See Comment Field Below ) VANCO INTERMIT. DOSING ASDIRECTED XX 06/18/20 02:35 06/18/20 14:25 DC Ondansetron HCl (Zofran) 4 mg Q6H PO 06/22/20 12:00 06/25/20 15:28 DC 06/25/20 12:44 Pantoprazole Sodium (Protonix) 40 mg DAILY PO 06/18/20 09:00 06/25/20 15:28 DC 06/25/20 09:35 Ramelteon (Rozerem) 8 mg QHS PRN PO INSOMNIA 06/18/20 01:20 06/25/20 15:28 DC 06/24/20 01:30 Simethicone (Mylicon) 80 mg TIDP PRN PO GAS PAIN 06/19/20 08:20 06/25/20 15:28 DC 06/19/20 13:27 Sodium Chloride 1,000 ml @ 100 mls/hr Q10H IV 06/17/20 22:10 06/18/20 02:38 DC 06/18/20 02:10 Sodium Chloride (Saline Lock Flush) 2 ml ASDIRECTED PRN IV SEE LABEL COMMENTS 06/24/20 16:25 06/25/20 15:28 DC Sodium Chloride (Saline Lock Flush) 2 ml SLF IV 06/24/20 22:00 06/25/20 15:28 DC 06/25/20 12:45 Tamsulosin HCl (Flomax) 0.4 mg DAILY PO 06/18/20 09:00 06/25/20 15:28 DC 06/25/20 09:34 Torsemide (Demadex) 50 mg BID@0900,1700 PO 06/18/20 09:00 06/25/20 15:28 DC 06/25/20 09:34 Valsartan (Diovan) 160 mg DAILY PO 06/18/20 09:00 06/25/20 15:28 DC 06/25/20 09:33 Vancomycin HCl 1000 mg/IV Miscellaneous Supplies 1 each/ Sodium Chloride 270 ml @ 270 mls/hr HD IV 06/19/20 16:00 06/21/20 16:23 DC 06/19/20 17:45 Allergies Coded Allergies: Penicillins (Verified Allergy, Mild, rash/itching, 06/17/20) Tetracyclines (Verified Allergy, Mild, ITCHING, 06/17/20) Sulfa (Sulfonamide Antibiotics) (Unverified Allergy, Unknown, unknown, 06/17/20) erythromycin base (Unverified Allergy, Unknown, unknown, 06/17/20) minoxidil (Verified Adverse Reaction, Intermediate, ANASARCA, 06/17/20) Contrast Media (Verified Adverse Reaction, Mild, MADE LEG TURN RED, 06/17/20) amlodipine (Verified Adverse Reaction, Mild, FLUID RETENTION, 06/17/20) carvedilol (Verified Adverse Reaction, Mild, FLUID RETENTION, 06/17/20) hydralazine (Verified Adverse Reaction, Mild, FLUID RETENTION, 06/17/20) cephalexin (Unverified Adverse Reaction, Unknown, FLUID RETENTION, 06/17/20) VS,Fishbone, I+O VS, Fishbone, I+O Laboratory Tests 06/25/20 05:51 Vital Signs Date Time Temp Pulse Resp B/P (MAP) Pulse Ox O2 Delivery O2 Flow Rate FiO2 06/25/20 13:00 166/68 (100) 06/25/20 12:00 97.2 82 18 100 Room Air I&O- Last 24 Hours up to 6 AM 06/25/20 06:00 Intake Total 540 ml Output Total 3200 ml Balance -2660 ml GME ATTESTATION GME ATTESTATION My faculty preceptor for this patient encounter was physically present during the encounter and was fully available. All aspects of the patient interview, examination, medical decision making process, and medical care plan development were reviewed and approved by the faculty preceptor. The faculty preceptor is aware and concurs with the plan as stated in the body of this note and will attest to such by his/her cosignature. YUMIKO OLVERA MD Jun 25, 2020 16:51
[2020-06-27] MEDS ORDERED: cloNIDine HCL 0.2 MG/24 HR PATCH TOP SCH (09:00)
== END 2020-06-25 15:26 | disposition home health service (06) | DRG 602 ==
LOC: M ED 17:45 → M ED INP 17:46 → M MSPAV 06-18 02:45 → OBSVTOIN 06-18 11:01 → M PCU 06-24 15:42
PROVIDERS: ADMIT Family Medicine; ATTEND Internal Medicine
DX: L03.116 Cellulitis of left lower limb (principal); N18.6 End stage renal disease; I13.2 Hypertensive heart and chronic kidney disease with heart failure and with stage 5 chronic kidney disease, or end stage renal disease; I50.32 Chronic diastolic (congestive) heart failure; I48.19 Other persistent atrial fibrillation; N25.81 Secondary hyperparathyroidism of renal origin; Z99.2 Dependence on renal dialysis; I25.10 Atherosclerotic heart disease of native coronary artery without angina pectoris; E11.22 Type 2 diabetes mellitus with diabetic chronic kidney disease; E78.5 Hyperlipidemia, unspecified; F41.9 Anxiety disorder, unspecified; E03.9 Hypothyroidism, unspecified; D63.1 Anemia in chronic kidney disease; K57.30 Diverticulosis of large intestine without perforation or abscess without bleeding; H40.9 Unspecified glaucoma; E11.51 Type 2 diabetes mellitus with diabetic peripheral angiopathy without gangrene; L95.8 Other vasculitis limited to the skin; M48.02 Spinal stenosis, cervical region; E11.42 Type 2 diabetes mellitus with diabetic polyneuropathy; M10.30 Gout due to renal impairment, unspecified site; N40.0 Benign prostatic hyperplasia without lower urinary tract symptoms; Z79.01 Long term (current) use of anticoagulants; Z79.899 Other long term (current) drug therapy; Z88.0 Allergy status to penicillin; Z88.1 Allergy status to other antibiotic agents; Z86.73 Personal history of transient ischemic attack (TIA), and cerebral infarction without residual deficits; Z88.2 Allergy status to sulfonamides; Z90.5 Acquired absence of kidney; Z88.8 Allergy status to other drugs, medicaments and biological substances; Z95.5 Presence of coronary angioplasty implant and graft; Z91.041 Radiographic dye allergy status; Z90.49 Acquired absence of other specified parts of digestive tract; Z85.528 Personal history of other malignant neoplasm of kidney; Z98.49 Cataract extraction status, unspecified eye; Z86.010 Personal history of colon polyps; Z20.822 Contact with and (suspected) exposure to COVID-19

== ENCOUNTER → 2020-07-14 | Outpatient (CLI) | payer MEDICARE ==
[~2020-07-14] MED LIST changes: +ACET32TAB PO; +APAP325T4 PO; +DOK1CAP7 PO; +MI-A80CH PO
--- NOTE | 2020-07-14 15:03 | REP ---
INDICATION: COUGH COMPARISON: 05/10/2020 TECHNIQUE: PA and lateral. FINDINGS: Visualized portions of the mediastinum and cardiac silhouette are stable. Double-lumen dialysis catheter noted along with evidence for prior sternotomy and CABG. Chronic changes are appreciated to the bilateral lung davis with superimposed basilar atelectasis and small pleural effusions. IMPRESSION: Small bilateral pleural effusions and bibasilar atelectasis. <Electronically signed by Alex Parisi > 07/14/20 [id number]
== END ==
LOC: M RAD 14:32
PROVIDERS: ATTEND Physician Assistant
DX: R05 Cough (principal)

== ENCOUNTER 2020-08-18 14:39 | Emergency (ER) | payer MEDICARE ==
[~2020-08-18] VITALS: Ht 182.9 cm; Wt 72.1 kg
--- NOTE | 2020-08-18 15:42 | REP ---
INDICATION: pain COMPARISON: None. TECHNIQUE: AP, lateral, bilateral oblique views of the right knee. FINDINGS: Age-related osteopenia and advanced tricompartmental osteoarthritic degenerative changes appreciated. Lateral view demonstrates suprapatellar effusion. No obvious acute fracture or dislocation identified. IMPRESSION: Osteopenia and degenerative changes. Suprapatellar effusion. No acute fracture identified. <Electronically signed by Alex Parisi > 08/18/20 [id number]
[2020-08-18] MEDS ORDERED: ULTR50TA8 PO (17:50)
[2020-08-18] MEDS ORDERED: traMADol 50 MG TAB PO ONE (17:50)
[2020-08-18 18:28] VITALS: BP 132/82
== END 2020-08-18 18:29 | disposition home or self-care (01) ==
LOC: M ED 14:39
DX: M25.461 Effusion, right knee (principal); M17.11 Unilateral primary osteoarthritis, right knee; M85.88 Other specified disorders of bone density and structure, other site; I25.2 Old myocardial infarction; I12.0 Hypertensive chronic kidney disease with stage 5 chronic kidney disease or end stage renal disease; N18.6 End stage renal disease; J45.909 Unspecified asthma, uncomplicated; E03.9 Hypothyroidism, unspecified; I48.91 Unspecified atrial fibrillation; E11.9 Type 2 diabetes mellitus without complications; K21.9 Gastro-esophageal reflux disease without esophagitis; Z79.01 Long term (current) use of anticoagulants; Z79.899 Other long term (current) drug therapy; Z79.890 Hormone replacement therapy; Z95.1 Presence of aortocoronary bypass graft; Z86.73 Personal history of transient ischemic attack (TIA), and cerebral infarction without residual deficits

== ENCOUNTER 2020-10-22 11:27 | Inpatient (IN) | payer MEDICARE ==
[~2020-10-22] VITALS: Ht 170.2 cm; Wt 71.8 kg
[~2020-10-22 11:27] MED LIST changes: -CLIN150C15 PO; +CLIN150C17 PO; +DOK1CAP4 PO; -DOK1CAP7 PO; +ULTR50TA8 PO
[2020-10-22 12:36] LABS: BASO % 0.5 % (0.0-1.0); EOS # 0.1 10^3/uL (0.0-0.5); EOS % 2.6 % (0.0-3.0); LYMPH # 0.3 10^3/uL (1.5-5.0); MEAN CORPUSCULAR HEMOGLOBIN 30.8 pg (27.0-33.0); MEAN CORPUSCULAR HGB CONC 32.3 g/dl (32.0-36.5); MEAN CORPUSCULAR VOLUME 95.4 fl (80.0-96.0); MONO # 0.3 10^3/uL (0.0-0.8); MONO % 6.8 % (2.0-8.0); NEUTROPHILS # 3.2 10^3/uL (1.5-8.5); NEUTROPHILS % 82.8 % (36.0-66.0); PLATELET COUNT, AUTOMATED 135 10^3/uL (150-450); RED BLOOD COUNT 3.25 10^6/uL (4.30-6.10); WHITE BLOOD COUNT 3.8 10^3/uL (4.0-10.0)
--- NOTE | 2020-10-22 12:44 | REP ---
INDICATION: CHEST PAIN. COMPARISON: 07/14/2020 TECHNIQUE: PA and lateral FINDINGS: The interstitial markings are diffusely increased. There is pulmonary vascular redistribution. There is cardiomegaly. There is bilateral CP angle blunting which is unchanged. The double lumen central venous catheter is unchanged. Note is again made of previous median sternotomy. There is no significant change in appearance of the osseous structures. IMPRESSION: 1. Cardiomegaly and interstitial edema. This is consistent with CHF. 2. Bilateral CP angle blunting likely small bilateral pleural effusions. 3. Other findings as described above. <Electronically signed by José Guy > 10/22/20 [id number]
[2020-10-22 13:10] LABS: ALBUMIN 3.2 GM/DL (3.2-5.2); BILIRUBIN,DIRECT 0.2 MG/DL (0.0-0.2); BILIRUBIN,TOTAL 0.6 MG/DL (0.2-1.0); CALCIUM LEVEL 8.8 MG/DL (8.8-10.2); CK-MB VALUE MASS 1.8 NG/ML (<3.6); CREATININE FOR GFR 4.56 MG/DL (0.70-1.30); FREE T4 1.05 NG/DL (0.76-1.46); GLOMERULAR FILTRATION RATE 13.4 (>42); POTASSIUM SERUM 4.4 MEQ/L (3.5-5.1); THYROID STIMULATING HORMONE 2.7 uIU/ML (0.358-3.740); TOTAL PROTEIN 6.3 GM/DL (6.4-8.2); TROPONIN I 0.11 NG/ML (< 0.10)
[2020-10-22] MEDS ORDERED: NITROGLYCERIN 0.4 MG SUBL TABLET SL STA (13:38)
[2020-10-22] MEDS ORDERED: TORSEMIDE (DEMADEX) 50 MG PER 1/2 TAB PO STA (13:38)
[2020-10-22] MEDS ORDERED: TAMSULOSIN 0.4 MG CAP PO ONE (13:40)
[2020-10-22 15:36] LABS: CK-MB VALUE MASS < 1.0 NG/ML (<3.6); CPK CREATINE PHOSPHOKINASE 43 U/L (39-308); MB/CK RELATIVE INDEX 2.33 (< OR =4)
[2020-10-22] MEDS ORDERED: DOCU100C16 PO (16:36)
[2020-10-22] MEDS ORDERED: MAALSUS19 PO (16:36)
[2020-10-22] MEDS ORDERED: CLON0.2D6 TD (16:36)
[2020-10-22] MEDS ORDERED: RENV0.8P PO (16:36)
[2020-10-22] MEDS ORDERED: VALS1TAB66 PO (16:36)
[2020-10-22] MEDS ORDERED: HOME MED LIST COMPLETE! XX SCH (16:40)
[2020-10-22] MEDS ORDERED: NITROGLYCERIN 0.4 MG SUBL TABLET SL PRN (16:55)
[2020-10-22] MEDS ORDERED: FAMOTIDINE 20 MG TAB PO PRN (16:55)
[2020-10-22] MEDS ORDERED: TORSEMIDE (DEMADEX) 50 MG PER 1/2 TAB PO SCH (17:00)
[2020-10-22] MEDS ORDERED: CAPTOpril 6.25 MG PER 1/2 TABLET PO SCH (17:00)
--- NOTE | 2020-10-22 17:09 | HPEPDOC ---
General Date of Admission 10/22/20 Date of Service: Oct 22, 2020 Chief Complaint The patient is a 75-year-old male admitted with a reason for visit of Chest Pressure. Source: Patient Exam Limitations: No limitations Severity: Moderate History of Present Illness Patient is 75 years old male with past medical history of end-stage renal disease, on hemodialysis on Wednesday,, Wednesday schedule, chronic hypertension, CAD, status post CABG, diastolic congestive heart failure, atrial fibrillation, a history of nephrectomy for renal cancer presented to hospital with dizziness. Patient stated that due to dizziness he missed dialysis today. Also patient reported intermittent chest pain substernal for past 2 days, no radiation, 5 out of 10. Patient denied fever, chills, nausea, vomiting, diarrhea. In ER patient was found to have hemoglobin of 10, no leukocytosis, troponin 0.11, the second troponin 0.10, BNP 7290, creatinine 4.56. EKG did not show any acute ischemic changes Home Medications Scheduled Allopurinol (Allopurinol) 100 Mg Tablet, 100 MG PO DAILY, (Reported) Apixaban (Eliquis) 2.5 Mg Tablet, 2.5 MG PO BID, (Reported) Atorvastatin Calcium (Atorvastatin Calcium) 40 Mg Tab, 40 MG PO QHS, (Reported) Calcitriol (Calcitriol) 0.25 Mcg Capsule, 0.25 MCG PO 3XW, (Reported) , , WED Clonidine (Clonidine) 0.2 Mg Patch.tdwk, 0.2 MG TD QWEEK, (Reported) SATURDAYS, CURRENTLY APPLIED TO RIGHT ARM Docusate Sodium (Docusate Sodium) 100 Mg Capsule, 100 MG PO DAILY, (Reported) Levothyroxine Sodium (Levothyroxine Sodium) 88 Mcg Tablet, 88 MCG PO DAILY, (Reported) Multivitamins (Thera M Plus Tablet) 1 Tab Tab, 1 TAB PO DAILY, (Reported) Pantoprazole Sodium (Pantoprazole Sodium) 40 Mg Tablet.dr, 40 MG PO DAILY, (Reported) Sevelamer Carbonate (Renvela Oral Suspension) 0.8 Gm Powd.pack, 0.8 GM PO WM, (Reported) Tamsulosin Hcl (Tamsulosin HCl) 0.4 Mg Capsule, 0.4 MG PO DAILY, (Reported) Torsemide (Torsemide) 100 Mg Tablet, 50 MG PO BID, (Reported) 0900, 1700 Valsartan (Valsartan) 80 Mg Tablet, 160 MG PO DAILY, (Reported) Scheduled PRN Famotidine (Famotidine) 20 Mg Tablet, 20 MG PO QHS PRN for HEARTBURN, (Reported) Lidocaine (Lidoderm) 5 % Dis, 2 PATCH TD DAILY PRN for PAIN, (Reported) APPLY TO LOWER BACK 12H ON 12H OFF Mag Hydrox/Aluminum Hyd/Simeth (Maalox Maximum Strength Susp) 355 Ml Oral.susp, 10 ML PO QID PRN for HEARTBURN/INDIGESTION, (Reported) Nitroglycerin (Nitrostat) 0.4 Mg Tab.subl, 0.4 MG SL NITRO PRN for CHEST PAIN, (Reported) Allergies Coded Allergies: Penicillins (Verified Allergy, Mild, rash/itching, 06/17/20) Tetracyclines (Verified Allergy, Mild, ITCHING, 06/17/20) Sulfa (Sulfonamide Antibiotics) (Unverified Allergy, Unknown, unknown, 06/17/20) erythromycin base (Unverified Allergy, Unknown, unknown, 06/17/20) minoxidil (Verified Adverse Reaction, Intermediate, ANASARCA, 06/17/20) Contrast Media (Verified Adverse Reaction, Mild, MADE LEG TURN RED, 06/17/20) amlodipine (Verified Adverse Reaction, Mild, FLUID RETENTION, 06/17/20) carvedilol (Verified Adverse Reaction, Mild, FLUID RETENTION, 06/17/20) hydralazine (Verified Adverse Reaction, Mild, FLUID RETENTION, 06/17/20) cephalexin (Unverified Adverse Reaction, Unknown, FLUID RETENTION, 06/17/20) Past Medical History Medical History 1. End-stage renal disease on hemodialysis, Wednesday, , Wednesday. 2. Nephrectomy for renal cancer with solitary kidney. 3. Hypertension. 4. CAD, status post CABG. 5. Chronic diastolic congestive heart failure. 6. Atrial fibrillation. 7. Hypothyroidism. 8. Cervical spinal stenosis. 9. GERD. 10. Type 2 diabetes. 11. Basal cell cancer with excisional biopsy. 12. Gout. 13. Anxiety. 14. Diverticular disease of the large colon. 15. Prior GI bleed and hemorrhoids. 16. Peripheral neuropathy. 17. Peripheral vascular disease. 18. History of cellulitis. 19. History of cataracts. 20. History of colonic polyp. 21. Secondary hyperparathyroidism of renal origin. 22. Anemia of chronic renal failure. 23. Anxiety. Surgical History 1. CABG. 2. Left nephrectomy. 3. Cataract extraction. 4. Colonic polypectomy. 5. History of coronary stents. 6. Cardiac ablation. Family History I personally reviewed family history and found not pertinent Social History * Smoker: Denies Alcohol: Denies Drugs: denies A-FIB/CHADSVASC A-FIB History Current/History of A-Fib/PAF?: Yes Current PO Anticoag Therapy: Yes Review of Systems Constitutional: Reports: Weakness; Denies: Chills, Fever Eyes: Denies: Pain ENT: Denies: Head Aches Skin: Denies: Rash, Lesions Pulmonary: Denies: Dyspnea Cardiovascular: Reports: Chest Pain Gastrointestinal: Denies: Nausea, Vomiting Genitourinary: Denies: Incontinence, Hematuria Hematologic: Denies: Bruising Endocrine: Denies: Polydipsia Musculoskeletal: Denies: Neck Pain Neurological: Denies: Weakness Psych: Reports: Mood Normal Physical Examination General Exam: Positive: Alert, Cooperative Eye Exam: Positive: PERRLA ENT Exam: Positive: Atraumatic Neck Exam: Positive: Supple, JVD Chest Exam: Positive: Clear to auscultation Heart Exam: Positive: Irregular Rhythm; Negative: Rate Normal Telemetry: Positive: Atrial fibrillation; Negative: No significant arrhythmia Abdomen Exam: Positive: Normal bowel sounds Extremity Exam: Negative: Clubbing Skin Exam: Positive: Nl turgor and temperature Neuro Exam: Positive: Strength at 5/5 X4 ext, Cranial Nerves 3-12 NL Psych Exam: Positive: Mental status NL Vital Signs Vital Signs Date Time Temp Pulse Resp B/P (MAP) Pulse Ox O2 Delivery O2 Flow Rate FiO2 10/22/20 15:45 96.6 78 176/92 (120) 94 Room Air 10/22/20 15:30 16 Laboratory Data Labs 24H Laboratory Tests 2 10/22/20 12:17: Immature Granulocyte % (Auto) 0.3, Neutrophils (%) (Auto) 82.8H, Lymphocytes (%) (Auto) 7.0L, Monocytes (%) (Auto) 6.8, Eosinophils (%) (Auto) 2.6, Basophils (%) (Auto) 0.5, Neutrophils # (Auto) 3.2, Lymphocytes # (Auto) 0.3L, Monocytes # (Auto) 0.3, Eosinophils # (Auto) 0.1, Basophils # (Auto) 0.0, Nucleated Red Blood Cells % (auto) 0.0, Anion Gap 7L, Glomerular Filtration Rate 13.4L, Calcium Level 8.8, Total Bilirubin 0.6, Direct Bilirubin 0.2, Aspartate Amino Transf (AST/SGOT) 11, Alanine Aminotransferase (ALT/SGPT) 21, Alkaline Phosphatase 77, Total Creatine Kinase 36L, Creatine Kinase MB 1.8, Creatine Kinase MB Relative Index 5.00H, Troponin I 0.11H, [id number]-Type Natriuretic Peptide 7290H, Total Protein 6.3L, Albumin 3.2, Albumin/Globulin Ratio 1.0, Lipase 117, Thyroid Stimulating Hormone (TSH) 2.700, Free Thyroxine 1.05 10/22/20 13:44: Bedside Glucose (Misc Panel) 146H 10/22/20 14:12: Total Creatine Kinase 43, Creatine Kinase MB < 1.0, Creatine Kinase MB Relative Index 2.33, Troponin I 0.10 CBC/BMP Laboratory Tests 10/22/20 12:17 Assessment/Plan Patient is 75 years old male with past medical history of end-stage renal disease, on hemodialysis on Wednesday,, Wednesday schedule, chronic hypertension, CAD, status post CABG, diastolic congestive heart failure, atrial fibrillation, a history of nephrect [place] for renal cancer presented to hospital with dizziness. Patient stated that due to dizziness he missed dialysis today. Also patient reported intermittent chest pain substernal for past 2 days, no radiation, 5 out of 10. Patient denied fever, chills, nausea, vomiting, diarrhea. In ER patient was found to have hemoglobin of 10, no leukocytosis, troponin 0.11, the second troponin 0.10, BNP 7290, creatinine 4.56. EKG did not show any acute ischemic changes Problems (1) ESRD (end stage renal disease) Status: Chronic Problem Text: Appreciate/agree with nephrology team consult Patient missed dialysis today (2) Fluid overload Status: Acute Problem Text: Most likely secondary to missed dialysis (3) Chest pain Onset Date: 07/26/2013 Status: Acute Problem Text: I talked with Dr. Harden, he recommended to continue to monitor chest pain He thinks it is unlikely acute coronary syndrome, troponin elevation most likely secondary to fluid overload and kidney failure (4) Diabetes Status: Chronic Problem Text: Insulin sliding scale Diabetes diet (5) Hyperlipidemia Status: Chronic Problem Text: Continue statin (6) CAD (coronary artery disease) Status: Chronic Problem Text: Continue home meds Nitroglycerin as needed (7) Hypertensive urgency Status: Acute Problem Text: Captopril for now Continue home meds Patient will need dialysis to better control elevated blood pressure (8) Acute on chronic diastolic CHF (congestive heart failure) Status: Acute Problem Text: Most likely secondary to volume overload due to missed dialysis Echo Cardiac diet (9) Atrial fibrillation Status: Chronic Problem Text: Heart rate under control Continue Eliquis Plan / VTE VTE Prophylaxis Ordered?: Yes LORETO CESAR DO Oct 22, 2020 17:09
[2020-10-22] MEDS ORDERED: GLUCAGON INJ 1MG VIAL SC PRN (17:20)
[2020-10-22] MEDS ORDERED: GLUCOSE 4GM CHEW TABLET PO PRN (17:20)
[2020-10-22] MEDS ORDERED: DEXTROSE 50% 50 ML SYRINGE IV PRN (17:20)
[2020-10-22 18:45] LABS: RSV AMPLIFICATION NEGATIVE (NEGATIVE)
[2020-10-22] MEDS: HumaLOG INSULIN (NovoLOG) PER UNIT SC SCH ×2 (18:52→20:50)
[2020-10-22] MEDS: **NOTE PATIENT COMMENT** MISC XX SCH (20:49)
[2020-10-22] MEDS: APIXABAN 2.5 MG TAB (ELIQUIS) PO SCH (21:24)
[2020-10-22] MEDS: ATORVASTATIN 20 MG TAB PO SCH (21:25)
[2020-10-23] VITALS: BP 137/76
[2020-10-23 04:00] VITALS: BP 178/83
[2020-10-23] MEDS: LEVOTHYROXINE 88MCG TABLET (0.088 MG) PO SCH (05:02)
[2020-10-23 05:24] LABS: HEMATOCRIT 31.3 % (42.0-52.0); HEMOGLOBIN 9.9 g/dl (13.5-17.5); MEAN CORPUSCULAR HEMOGLOBIN 30.2 pg (27.0-33.0); MEAN CORPUSCULAR HGB CONC 31.6 g/dl (32.0-36.5); MEAN CORPUSCULAR VOLUME 95.4 fl (80.0-96.0); PLATELET COUNT, AUTOMATED 133 10^3/uL (150-450); RED BLOOD COUNT 3.28 10^6/uL (4.30-6.10); WHITE BLOOD COUNT 4.3 10^3/uL (4.0-10.0)
[2020-10-23 05:49] LABS: ALBUMIN 3.1 GM/DL (3.2-5.2); BILIRUBIN,TOTAL 0.6 MG/DL (0.2-1.0); CALCIUM LEVEL 8.8 MG/DL (8.8-10.2); CREATININE FOR GFR 4.78 MG/DL (0.70-1.30); GLOMERULAR FILTRATION RATE 12.7 (>42); MAGNESIUM LEVEL 2.2 MG/DL (1.8-2.4); POTASSIUM SERUM 4.7 MEQ/L (3.5-5.1); TOTAL PROTEIN 5.8 GM/DL (6.4-8.2)
--- NOTE | 2020-10-23 07:05 | ECGEPIP ---
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
--- NOTE | 2020-10-23 07:10 | ECGEPIP ---
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
[2020-10-23] MEDS: HumaLOG INSULIN (NovoLOG) PER UNIT SC SCH ×4 (07:30→20:58)
[2020-10-23 07:51] VITALS: BP 176/79
[2020-10-23] MEDS: PANTOPRAZOLE 40MG TAB (PROTONIX) PO SCH (08:30)
[2020-10-23] MEDS: MULTIVITAMINS/MINERALS THERAP 1 TAB PO SCH ×2 (08:30→13:51)
[2020-10-23] MEDS: VALSARTAN 80 MG TAB (DIOVAN) PO SCH (08:30)
[2020-10-23] MEDS: APIXABAN 2.5 MG TAB (ELIQUIS) PO SCH ×2 (08:30→20:57)
[2020-10-23] MEDS: TORSEMIDE (DEMADEX) 50 MG PER 1/2 TAB PO SCH ×2 (08:30→17:45)
[2020-10-23] MEDS: allopurinoL 100 MG TAB PO SCH (08:31)
[2020-10-23] MEDS: DOCUSATE SODIUM 100MG CAPSULE PO SCH (08:31)
[2020-10-23] MEDS: TAMSULOSIN 0.4 MG CAP PO SCH (08:31)
--- NOTE | 2020-10-23 16:11 | IPNPDOC ---
Text Note Date of Service The patient was seen on 10/23/20. NOTE Subjective: Patient continues to complain of dizziness after dialysis. No fever or chills Objective: GENERAL APPEARANCE: NAD HEENT: no scleral icterus, no JVD, EOMI CARDIOVASCULAR: Irregularly irregular LUNGS: CTA ABDOMEN: soft & not tender w palpation MUSCULOSKELETAL: no cyanosis, no swelling INTEGUMENT: no generalized pallor NEUROLOGICAL: cranial nerve function from 2-12 intact, follows commands, speech not dysarthric Assessment/Plan Patient is 75 years old male with past medical history of end-stage renal disease, on hemodialysis on Wednesday,, Wednesday schedule, chronic hypertension, CAD, status post CABG, diastolic congestive heart failure, atrial fibrillation, a history of nephrectomy for renal cancer presented to hospital with dizziness. Patient stated that due to dizziness he missed dialysis today. Also patient reported intermittent chest pain substernal for past 2 days, no radiation, 5 out of 10. Patient denied fever, chills, nausea, vomiting, diarrhea. In ER patient was found to have hemoglobin of 10, no leukocytosis, troponin 0.11, the second troponin 0.10, BNP 7290, creatinine 4.56. EKG did not show any acute ischemic c hanges Problems (1) ESRD (end stage renal disease) Appreciate/agree with nephrology team consult Dialysis was done today (2) Fluid overload Most likely secondary to missed dialysis (3) Chest pain I talked with Dr. Harden, he recommended to continue to monitor chest pain He thinks it is unlikely acute coronary syndrome, troponin elevation most likely secondary to fluid overload and kidney failure Troponin trended down Chest pain resolved (4) Diabetes Insulin sliding scale Diabetes diet (5) Hyperlipidemia Continue statin (6) CAD (coronary artery disease) Continue home meds Nitroglycerin as needed (7) Hypertensive urgency/hypertension Continue home meds (8) Acute on chronic diastolic CHF (congestive heart failure) Most likely secondary to volume overload due to missed dialysis Echo pending Cardiac diet (9) Atrial fibrillation Heart rate under control Continue Eliquis VS,Fishbone, I+O VS, Fishbone, I+O Laboratory Tests 10/23/20 04:49 Vital Signs Date Time Temp Pulse Resp B/P (MAP) Pulse Ox O2 Delivery O2 Flow Rate FiO2 10/23/20 08:30 176/79 10/23/20 07:51 98.2 85 18 100 Room Air I&O- Last 24 Hours up to 6 AM 10/23/20 06:00 Intake Total 240 ml Output Total 225 ml Balance 15 ml LORETO CESAR DO Oct 23, 2020 16:11
[2020-10-23 16:36] VITALS: BP 131/60
--- NOTE | 2020-10-23 18:40 | CR ---
CONSULTATION DATE: 10/23/2020 REQUESTING PHYSICIAN: LORETO CESAR DO CONSULTING PHYSICIAN: DANY JORDAN MD REASON FOR CONSULTATION: Management of endstage renal disease and fluid overload. CHIEF COMPLAINT: Patient presented to the hospital yesterday after missing his dialysis and he complained of chest pain and shortness of breath. HISTORY OF PRESENT ILLNESS: Jose Antonio Willson is a 75-year-old male with a past medical history of endstage renal disease with hemodialysis q. Wednesday, and Wednesday, coronary artery disease status post CABG, chronic diastolic congestive heart failure, atrial fibrillation, and multiple other comorbidities as mentioned below. He was last dialyzed on Wednesday. He missed his dialysis on Wednesday and he felt like he had chest pressure and chest pain which is 5/10 and because of his history of coronary artery disease he was concerned that it might be because of his heart. He presented to the Emergency Room. He was found to have congestive heart failure, elevated BNP, and fluid on the chest x-ray, he was admitted under the Hospitalist service. Nephrology Service was called for further help in the management of this patient. I had arranged his hemodialysis to be done and I saw and evaluated the patient today morning at the bedside when he was getting his dialysis done. PAST MEDICAL HISTORY: Past medical history of endstage renal disease on hemodialysis q. Wednesday, and Wednesday, history of renal cell cancer, unilateral nephrectomy, hypertension, coronary artery disease status post CABG, chronic diastolic congestive heart failure, atrial fibrillation, hypothyroidism, cervical spine stenosis, gastroesophageal reflux disease, Type 2 diabetes, chronic gout, anxiety disorder, diverticular disease of large colon, peripheral neuropathy, secondary hyperparathyroidism, anemia and endstage renal disease. PAST SURGICAL HISTORY: Status post CABG, status post left nephrectomy, history of cataract surgery, colonic polypectomy, coronary stents in the past, and cardiac ablation. ALLERGIES: He is allergic to IV contrast media, penicillin, sulfa, tetracycline, amlodipine, Coreg, Keflex, Azithromycin, hydralazine, Minoxidil and a lot of these allergies are actually intolerance or side-effect of medications. FAMILY HISTORY: No significant family history of endstage renal disease requiring hemodialysis. SOCIAL HISTORY: Patient lives at home. Denies any smoking or illicit drug abuse or alcohol abuse. REVIEW OF SYSTEMS: CONSTITUTIONAL: He denies any fevers or chills. EYES: Denies any blurry vision or double vision. ENT: Denies any dysphagia or odynophagia. CARDIOVASCULAR: Reports chest pain. RESPIRATORY: Reports dyspnea. GI: Denies any nausea or vomiting. GENITOURINARY: Reports decreased urine output. MUSCULOSKELETAL: Denies any muscle aches and pains. SKIN: Denies any rashes or ulcers. HEMATOLOGIC/ONCOLOGIC: Denies any easy bleeding or bruising. ENDOCRINE: Reports a history of diabetes but currently not taking any medications. He is diet controlled. 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 He does report some dizziness. All other review of systems are negative. PHYSICAL EXAMINATION: GENERAL: Patient is awake, alert and oriented x3, laying in bed getting hemodialysis done. VITAL SIGNS: Temperature is 97.4 degrees Fahrenheit, blood pressure is 131/60, pulse is 65, respiratory rate is 18, saturating 99% on room air. HEAD AND NECK: Extraocular muscles are intact. Pupils equally round and reactive to light. Mucous membranes are moist. Neck is supple. He has a right IJ tunneled hemodialysis catheter being used for dialysis. CARDIOVASCULAR: S1 and S2, regular rate. There is 2+ edema of the bilateral lower extremities. RESPIRATORY: Mildly decreased breath sounds at the bases with inspiratory crackles. ABDOMEN: Soft, positive bowel sounds, nontender. No organomegaly. MUSCULOSKELETAL: Venous stasis changes of lower extremities and edema of lower extremities as mentioned above. SHELL MACHINE OPERATOR: No focal deficit. Power is 5/5 in all extremities. LABORATORY DATA: CBC showed a WBC of 4.3, hemoglobin 9.9, platelets of 133,000. BMP showed a sodium of 140, potassium 4.7, chloride 106, bicarbonate 27, BUN 83, creatinine is 4.7. Albumin is 3.1. CURRENT INPATIENT MEDICATIONS: Patient's medications include Tylenol p.r.n., Allopurinol 100 mg p.o. daily, Eliquis 2.5 mg p.o. twice a day, Lipitor 40 mg daily, Calcitriol 0.25 mcg p.o. Wednesday, and Wednesday, Clonidine patch 0.2 mg once a week, Colace 100 mg p.o. daily, Pepcid 20 mg p.o. q.h.s., insulin Lispro sliding scale, levothyroxine 88 mcg p.o. daily, Lidocaine, multivitamin one tablet p.o. daily, Nitroglycerin p.r.n., Protonix 40 mg p.o. daily, Flomax 0.4 mg p.o. daily, torsemide 50 mg p.o. twice a day and Valsartan 160 mg p.o. daily. ASSESSMENT AND PLAN: 1. Acute decompensated congestive heart failure. Patient is volume overloaded. He was last dialyzed three days ago. He is being dialyzed at this time. I will try to remove at least three liters of fluid as tolerated by his blood pressure. 2. Endstage renal disease, patient is hemodialysis dependent, as mentioned above he missed his dialysis, he is being dialyzed off schedule. The next dialysis will be done tomorrow as per his regular schedule. 3. Anemia and endstage renal disease. Patient is slightly volume overloaded. If hemoglobin stays below 10 he will be given Aranesp as well. 4. Uncontrolled hypertension, it was secondary to fluid overload. Continue home dose of Clonidine and Valsartan. Blood pressure is already getting better after optimization of fluid status. 5. Lower extremity edema and congestive heart failure, continue home dose of torsemide 50 mg p.o. twice a day. 6. Atrial fibrillation, continue current dose of Eliquis. Heart rate is controlled. 7. Chronic gout secondary to chronic kidney disease, continue current dose of Allopurinol 100 mg p.o. daily. Thank you for involving me in the care of this patient. I shall be happy to follow the patient along with you tomorrow morning.
[2020-10-23 20:00] VITALS: BP 130/58
[2020-10-23] MEDS: ATORVASTATIN 20 MG TAB PO SCH (20:57)
[2020-10-23] MEDS: **NOTE PATIENT COMMENT** MISC XX SCH (20:58)
[2020-10-24] VITALS: BP 136/68
[2020-10-24] MEDS: ONDANSETRON 4MG/2ML VIAL IV PRN (01:40)
[2020-10-24 04:00] VITALS: BP 169/84
[2020-10-24 05:35] LABS: BASO % 0.9 % (0.0-1.0); EOS # 0.1 10^3/uL (0.0-0.5); EOS % 2.9 % (0.0-3.0); HEMATOCRIT 29.4 % (42.0-52.0); HEMOGLOBIN 9.7 g/dl (13.5-17.5); LYMPH # 0.6 10^3/uL (1.5-5.0); LYMPH % 17.8 % (24.0-44.0); MEAN CORPUSCULAR HEMOGLOBIN 30.9 pg (27.0-33.0); MEAN CORPUSCULAR VOLUME 93.6 fl (80.0-96.0); MONO # 0.5 10^3/uL (0.0-0.8); MONO % 13.2 % (2.0-8.0); NEUTROPHILS # 2.2 10^3/uL (1.5-8.5); NEUTROPHILS % 64.9 % (36.0-66.0); PLATELET COUNT, AUTOMATED 149 10^3/uL (150-450); RED BLOOD COUNT 3.14 10^6/uL (4.30-6.10); WHITE BLOOD COUNT 3.4 10^3/uL (4.0-10.0)
[2020-10-24] MEDS: LEVOTHYROXINE 88MCG TABLET (0.088 MG) PO SCH (05:42)
[2020-10-24 06:06] LABS: BILIRUBIN,TOTAL 0.7 MG/DL (0.2-1.0); CALCIUM LEVEL 9.1 MG/DL (8.8-10.2); CREATININE FOR GFR 3.42 MG/DL (0.70-1.30); GLOMERULAR FILTRATION RATE 18.7 (>42); MAGNESIUM LEVEL 2.1 MG/DL (1.8-2.4); POTASSIUM SERUM 4.2 MEQ/L (3.5-5.1); TOTAL PROTEIN 5.9 GM/DL (6.4-8.2)
[2020-10-24 08:00] VITALS: BP 155/76
[2020-10-24] MEDS: DOCUSATE SODIUM 100MG CAPSULE PO SCH (09:39)
[2020-10-24] MEDS: MIRALAX *UNIT DOSE* 17GM PACKET PO PRN (09:39)
[2020-10-24] MEDS: CALCITRIOL 0.25 MCG CAP (S0169) PO SCH (09:40)
[2020-10-24] MEDS: APIXABAN 2.5 MG TAB (ELIQUIS) PO SCH ×2 (09:40→21:23)
--- NOTE | 2020-10-24 09:40 | ECHO ---
ECHOCARDIOGRAM DATE OF PROCEDURE: 10/23/2020 Age: 75 Gender: Male Height: 67 inches Weight: 156 pounds Body surface area 1.82 m2 PATIENT LOCATION: Inpatient PCU, Room 3219 REFERRING PHYSICIAN: LORETO CESAR DO INDICATION: CHF. MEASUREMENTS: 2D Measurements: RV 4.0 cm LV 4.8 cm Septum 1.3 cm Posterior wall 1.3 cm Aortic Root 3.4 cm LA - 4.4 cm LVEF 45-50% Doppler Measurements: AV - 0.97 m/s (more than 6 degrees off angle) LVOT - 0.56 m/s (more than 6 degrees off angle) LVOT 1.9 cm MV-E 83 Early mitral deceleration time 148 msec E prime medial 6.1, E prime lateral 9.3 Average E/E prime ratio 11/PCWP - 15.5 mmHg PV - 0.8 m/s Pulmonary artery re-acceleration time inaccurate. Appeared abbreviated. RVSP difficult to measure IVC - 2.2 cm COMMENTS: Underlying atrial fibrillation with controlled ventricular response. Incomplete left bundle branch block. Technically challenging study in light of the patient's body habitus but some diagnostic useful information was still obtained. Mild symmetrical left ventricular hypertrophy with distal septal marked hypo to akinesis and apical hypokinesis. Distal anterior wall also appeared to be hypokinetic. Other left ventricular wall segments appeared to move normally. At least mild impairment of global resting systolic function. Moderately dilated left atrium yet currently normal estimated mean left atrial pressure. Right heart chambers upper limits of normal with normal right ventricular free wall motion. Unable to accurately measure pulmonary arterial pressure but in light of the mildly dilated inferior vena cava with reduced respiratory collapse we would estimate pulmonary artery pressure approximately 50 mmHg. At least mildly dilated inferior vena cava with reduced respiratory collapse in keeping with an elevated central venous pressure. Normal aortic dimensions. Moderate aortic valvular sclerosis with adequate cusp separation. No premature cusp closure in keeping with adequate stroke volume. No aortic insufficiency. Moderate degenerative changes of the mitral valvular apparatus with adequate cusp separation and no posterior systolic buckling and very mild mitral insufficiency. Normal appearing tricuspid valve with very mild insufficiency. No apparent intracardiac mass. Very small posterior pericardial effusion. At least moderate size left pleural effusion.
[2020-10-24] MEDS: PANTOPRAZOLE 40MG TAB (PROTONIX) PO SCH (09:41)
[2020-10-24] MEDS: TAMSULOSIN 0.4 MG CAP PO SCH (09:41)
[2020-10-24] MEDS: VALSARTAN 80 MG TAB (DIOVAN) PO SCH (09:41)
[2020-10-24] MEDS: HumaLOG INSULIN (NovoLOG) PER UNIT SC SCH ×4 (09:41→21:00)
[2020-10-24] MEDS: allopurinoL 100 MG TAB PO SCH (09:41)
[2020-10-24] MEDS: TORSEMIDE (DEMADEX) 50 MG PER 1/2 TAB PO SCH ×2 (09:41→17:33)
[2020-10-24] MEDS: LIDOCAINE 5% (LIDODERM) PATCH TD PRN (09:49)
[2020-10-24] MEDS ORDERED: DARBEPOETIN 100 MCG/0.5 ML *DIALYSIS* SYRINGE (J0882) IV SCH (09:50)
[2020-10-24 12:00] VITALS: BP 156/75
[2020-10-24] MEDS: ACETAMINOPHEN TAB 650MG DOSE (2X325MG) PO PRN (12:37)
--- NOTE | 2020-10-24 12:39 | IPNPDOC ---
Text Note Date of Service The patient was seen on 10/24/20. NOTE Subjective: Patient continues to complain of dizziness when he stands up Objective: GENERAL APPEARANCE: NAD HEENT: no scleral icterus, no JVD, EOMI CARDIOVASCULAR: Irregularly irregular LUNGS: CTA ABDOMEN: soft & not tender w palpation MUSCULOSKELETAL: no cyanosis, no swelling INTEGUMENT: no generalized pallor NEUROLOGICAL: cranial nerve function from 2-12 intact, follows commands, speech not dysarthric Assessment/Plan Patient is 75 years old male with past medical history of end-stage renal disease, on hemodialysis on Wednesday,, Wednesday schedule, chronic hypertension, CAD, status post CABG, diastolic congestive heart failure, atrial fibrillation, a history of nephrectomy for renal cancer presented to hospital with dizziness. Patient stated that due to dizziness he missed dialysis today. Also patient reported intermittent chest pain substernal for past 2 days, no radiation, 5 out of 10. Patient denied fever, chills, nausea, vomiting, diarrhea. In ER patient was found to have hemoglobin of 10, no leukocytosis, troponin 0.11, the second troponin 0.10, BNP 7290, creatinine 4.56. EKG did not show any acute ischemic changes Problems (1) ESRD (end stage renal disease) Appreciate/agree with nephrology team consult (2) Fluid overload Most likely secondary to missed dialysis (3) Chest pain I talked with Dr. Harden, he recommended to continue to monitor chest pain He thinks it is unlikely acute coronary syndrome, troponin elevation most likely secondary to fluid overload and kidney failure Troponin trended down Chest pain resolved (4) Diabetes Insulin sliding scale Diabetes diet (5) Hyperlipidemia Continue statin (6) CAD (coronary artery disease) Continue home meds Nitroglycerin as needed (7) Hypertensive urgency/hypertension Continue home meds, blood pressure became better after dialysis with fluid removal (8) Acute on chronic diastolic CHF (congestive heart failure) Most likely secondary to volume overload due to missed dialysis Echo showed diastolic dysfunction with ejection fraction of 45 to 50% Cardiac diet (9) Atrial fibrillation Heart rate under control Continue Eliquis Dizziness Most likely multifactorial secondary to dialysis treatment and possibly benign positional vertigo PT/OT VS,Fishbone, I+O VS, Fishbone, I+O Laboratory Tests 10/24/20 05:22 Vital Signs Date Time Temp Pulse Resp B/P (MAP) Pulse Ox O2 Delivery O2 Flow Rate FiO2 8/12/21 09:41 155/76 10/24/20 08:00 97.3 72 22 99 Room Air I&O- Last 24 Hours up to 6 AM 10/24/20 06:00 Intake Total 600 ml Output Total 3480 ml Balance -2880 ml LORETO CESAR DO Oct 24, 2020 12:38
--- NOTE | 2020-10-24 13:11 | IPN ---
PROGRESS NOTE DATE: 10/24/2020 SUBJECTIVE: Patient was seen and examined at the bedside today morning. He was dialyzed yesterday. He tolerated the hemodialysis procedure well. Three liters of fluid was removed. Patient reports feeling dizzy when he gets out of bed and when he moves around. Otherwise, he reports that his chest pain has gotten better and his lower extremity edema is also improving. OBJECTIVE: VITAL SIGNS: Temperature is 97.3 degrees Fahrenheit, blood pressure is 155/76, pulse is 77, respiratory rate is 22, saturating 99% on room air. INTAKE AND OUTPUT: Ultrafiltration with hemodialysis was three liters yesterday. A urine output is 250 ml. Weight on the bed scale is not available. GENERAL: Patient is awake, alert and oriented x3, sitting up in the bed in no apparent distress. HEAD AND NECK: Extraocular muscles intact. Pupils equally round and reactive to light. Mucous membranes are moist. Neck is supple. He has a right IJ tunneled hemodialysis catheter. CARDIOVASCULAR: S1 and S2, irregular rate, 2+ edema of the bilateral lower extremities. RESPIRATORY: Mildly decreased breath sounds at the bases but mild inspiratory crackles at the bases. ABDOMEN: Soft, positive bowel sounds, nontender. No organomegaly. MUSCULOSKELETAL: No clubbing or cyanosis. Pulses are 2+. METAL INSPECTOR: No focal deficit. Power is 5/5 in all extremities. LABORATORY DATA: CBC showed a WBC of 3.4, hemoglobin 9.7, platelets are 149,000. BMP showed a sodium of 139, potassium 4.2, chloride 103, bicarbonate 29, BUN 44, creatinine is 3.4. CURRENT INPATIENT MEDICATIONS: Patient's medications were all reviewed by myself. I have started him on Aranesp 100 mcg with dialysis. No other significant change in the medications today. ASSESSMENT AND PLAN: 1. Endstage renal disease. Today is the patient's regular day of dialysis. He will be dialyzed again and I will try to remove at least 2 kg of fluid as tolerated by his blood pressure. 2. Congestive heart failure. Patient was volume overloaded yesterday. Volume status is slightly better today. Further fluid removal with dialysis as mentioned above and continue home dose of torsemide. 3. Anemia and endstage renal disease. Patient's hemoglobin is suboptimal. I have started him on Aranesp. 4. Hypertension. It is better controlled. Continue current dose of Clonidine and Valsartan. 5. Atrial fibrillation, heart rate is controlled. He is anticoagulated with Eliquis.
[2020-10-24 17:45] VITALS: BP 151/71
[2020-10-24 20:00] VITALS: BP 139/60
[2020-10-24] MEDS: ATORVASTATIN 20 MG TAB PO SCH (21:23)
[2020-10-24] MEDS: **NOTE PATIENT COMMENT** MISC XX SCH (21:24)
[2020-10-25] VITALS (7 sets, daily range): BP systolic 135–200; BP diastolic 56–92
[2020-10-25] MEDS: ONDANSETRON 4MG/2ML VIAL IV PRN (03:22)
[2020-10-25] MEDS ORDERED: traMADol 50 MG TAB PO ONE (03:40)
[2020-10-25] MEDS: LEVOTHYROXINE 88MCG TABLET (0.088 MG) PO SCH (04:06)
[2020-10-25 04:53] LABS: BASO % 1.2 % (0.0-1.0); EOS # 0.1 10^3/uL (0.0-0.5); EOS % 3.3 % (0.0-3.0); HEMATOCRIT 32.2 % (42.0-52.0); HEMOGLOBIN 10.2 g/dl (13.5-17.5); LYMPH # 0.5 10^3/uL (1.5-5.0); LYMPH % 13.5 % (24.0-44.0); MEAN CORPUSCULAR HEMOGLOBIN 30.4 pg (27.0-33.0); MEAN CORPUSCULAR HGB CONC 31.7 g/dl (32.0-36.5); MEAN CORPUSCULAR VOLUME 95.8 fl (80.0-96.0); MONO # 0.5 10^3/uL (0.0-0.8); MONO % 14.1 % (2.0-8.0); NEUTROPHILS # 2.3 10^3/uL (1.5-8.5); NEUTROPHILS % 67.3 % (36.0-66.0); PLATELET COUNT, AUTOMATED 142 10^3/uL (150-450); RED BLOOD COUNT 3.36 10^6/uL (4.30-6.10); WHITE BLOOD COUNT 3.3 10^3/uL (4.0-10.0)
[2020-10-25 05:17] LABS: ALBUMIN 3.1 GM/DL (3.2-5.2); BILIRUBIN,TOTAL 0.5 MG/DL (0.2-1.0); CALCIUM LEVEL 9.2 MG/DL (8.8-10.2); CREATININE FOR GFR 3.06 MG/DL (0.70-1.30); GLOMERULAR FILTRATION RATE 21.2 (>42); MAGNESIUM LEVEL 1.9 MG/DL (1.8-2.4); POTASSIUM SERUM 4.4 MEQ/L (3.5-5.1); TOTAL PROTEIN 6.6 GM/DL (6.4-8.2)
[2020-10-25] MEDS: TAMSULOSIN 0.4 MG CAP PO SCH (08:18)
[2020-10-25] MEDS: VALSARTAN 80 MG TAB (DIOVAN) PO SCH (08:18)
[2020-10-25] MEDS: TORSEMIDE (DEMADEX) 50 MG PER 1/2 TAB PO SCH ×2 (08:18→18:16)
[2020-10-25] MEDS: HumaLOG INSULIN (NovoLOG) PER UNIT SC SCH ×4 (08:18→20:38)
[2020-10-25] MEDS: MULTIVITAMINS/MINERALS THERAP 1 TAB PO SCH ×2 (08:18→08:24)
[2020-10-25] MEDS: APIXABAN 2.5 MG TAB (ELIQUIS) PO SCH ×2 (08:18→20:42)
[2020-10-25] MEDS: DOCUSATE SODIUM 100MG CAPSULE PO SCH (08:19)
[2020-10-25] MEDS: PANTOPRAZOLE 40MG TAB (PROTONIX) PO SCH (08:19)
[2020-10-25] MEDS: allopurinoL 100 MG TAB PO SCH (08:19)
[2020-10-25] MEDS: LIDOCAINE 5% (LIDODERM) PATCH TD PRN (08:28)
--- NOTE | 2020-10-25 14:01 | IPNPDOC ---
Text Note Date of Service The patient was seen on 10/25/20. NOTE Subjective: Patient stated that his dizziness improved today but when he stands up he has a lightheadedness Objective: GENERAL APPEARANCE: NAD HEENT: no scleral icterus, no JVD, EOMI CARDIOVASCULAR: Irregularly irregular LUNGS: CTA ABDOMEN: soft & not tender w palpation MUSCULOSKELETAL: no cyanosis, no swelling INTEGUMENT: no generalized pallor NEUROLOGICAL: cranial nerve function from 2-12 intact, follows commands, speech not dysarthric Assessment/Plan Patient is 75 years old male with past medical history of end-stage renal disease, on hemodialysis on Wednesday,, Wednesday schedule, chronic hypertension, CAD, status post CABG, diastolic congestive heart failure, atrial fibrillation, a history of nephrectomy for renal cancer presented to hospital with dizziness. Patient stated that due to dizziness he missed dialysis today. Also patient reported intermittent chest pain substernal for past 2 days, no radiation, 5 out of 10. Patient denied fever, chills, nausea, vomiting, diarrhea. In ER patient was found to have hemoglobin of 10, no leukocytosis, troponin 0.11, the second troponin 0.10, BNP 7290, creatinine 4.56. EKG did not show any acute ischemic changes Problems (1) ESRD (end stage renal disease) Appreciate/agree with nephrology team consult. Continue dialysis (2) Fluid overload Most likely secondary to missed dialysis Fluid volume managed by nephrology team (3) Chest pain I talked with Dr. Harden, he recommended to continue to monitor chest pain He thinks it is unlikely acute coronary syndrome, troponin elevation most likely secondary to fluid overload and kidney failure Troponin trended down Chest pain resolved (4) Diabetes Insulin sliding scale Diabetes diet (5) Hyperlipidemia Continue statin (6) CAD (coronary artery disease) Continue home meds Nitroglycerin as needed (7) Hypertensive urgency/hypertension Continue home meds, blood pressure usually became better after dialysis with fluid removal (8) Acute on chronic diastolic CHF (congestive heart failure) Most likely secondary to volume overload due to missed dialysis Echo showed diastolic dysfunction with ejection fraction of 45 to 50% Cardiac diet (9) Atrial fibrillation Heart rate under control Continue Eliquis Dizziness Most likely multifactorial secondary to dialysis treatment and possibly benign positional vertigo Continue PT/OT VS,Fishbone, I+O VS, Fishbone, I+O Laboratory Tests 10/25/20 04:20 Vital Signs Date Time Temp Pulse Resp B/P (MAP) Pulse Ox O2 Delivery O2 Flow Rate FiO2 10/25/20 10:55 158/70 (99) 10/25/20 08:00 97.6 72 14 99 Room Air I&O- Last 24 Hours up to 6 AM 10/25/20 05:59 Intake Total 0 ml Output Total 2500 ml Balance -2500 ml LORETO CESAR Oct 25, 2020 14:01
[2020-10-25] MEDS: MIRALAX *UNIT DOSE* 17GM PACKET PO PRN (18:48)
[2020-10-25] MEDS: **NOTE PATIENT COMMENT** MISC XX SCH (20:42)
[2020-10-25] MEDS: ATORVASTATIN 20 MG TAB PO SCH (20:42)
--- NOTE | 2020-10-26 00:31 | IPN ---
NEPHROLOGY PROGRESS NOTE DATE: 10/25/2020 SUBJECTIVE: The patient was seen and examined at the bedside today morning. He is afebrile, hemodynamically stable. He was dialyzed yesterday. He tolerated the hemodynamically procedure well. He reports that his dizziness is getting better. OBJECTIVE: VITAL SIGNS: Temperature is 98 degrees Fahrenheit, blood pressure 135/67/ pulse is 69, respiratory rate of 17, saturating 99% on room air. INTAKE AND OUTPUT: Urine output recorded as 250 mL yesterday. Ultrafiltration with hemodialysis was 2.5 liters. Weight in the bed scale is not available. PHYSICAL EXAMINATION: GENERAL APPEARANCE: The patient is awake, alert, oriented x3, sitting up in the sofa in no apparent distress. HEAD AND NECK: Extraocular muscles intact. Pupils are equally round and reactive to light. Right IJ tunneled hemodialysis catheter. CARDIOVASCULAR: S1, S2, regular rate. EXTREMITIES: 1+ edema of the bilateral lower extremities. RESPIRATORY: Chest is clear to auscultation bilaterally. Bilaterally currently no rales or rhonchi. ABDOMEN: Soft, positive bowel sounds, nontender, no organomegaly. MUSCULOSKELETAL: No clubbing, no cyanosis. Chronic venous stasis changes of the lower extremities. HANDLE ATTACHER: No focal deficits. Power is 5/5 in all extremities. LAB REVIEW: CBC showed a WBC of 3.3, hemoglobin 10.2, platelet count 142. BMP showed sodium of 140, potassium 4.4, chloride 107, bicarbonate 26, BUN 29, creatinine is 3. Albumin is 3.1. CURRENT INPATIENT MEDICATIONS: The patient's medications were all reviewed by myself. There is no significant change in the medications today as compared with yesterday. ASSESSMENT AND PLAN: 1. End-stage renal disease - The patient will be dialyzed tomorrow morning according to his regular schedule. 2. Hypertension - blood pressure is controlled with optimization of fluid status. Continue current dose of Clonidine and Valsartan. 3. Congestive heart failure the patient's volume status is better. Further volume will be removed during dialysis. Continue current dose of Torsemide. 4. Anemia in end-stage renal disease - continue current dose of Aranesp. 5. Disposition - The patient is optimized from a nephrology standpoint, to be discharged home whenever he is cleared by Physical Therapy.
[2020-10-26] MEDS: POLYVINYL ALCOHOL OPHTH SOLN 15 ML(LIQUITEARS) OU PRN ×2 (01:10→21:16)
[2020-10-26] MEDS ORDERED: traMADol 50 MG TAB PO PRN (01:35)
[2020-10-26 05:51] LABS: BASO % 0.7 % (0.0-1.0); EOS # 0.2 10^3/uL (0.0-0.5); EOS % 3.6 % (0.0-3.0); HEMATOCRIT 30.6 % (42.0-52.0); HEMOGLOBIN 9.6 g/dl (13.5-17.5); LYMPH # 0.6 10^3/uL (1.5-5.0); LYMPH % 13.6 % (24.0-44.0); MEAN CORPUSCULAR HGB CONC 31.4 g/dl (32.0-36.5); MEAN CORPUSCULAR VOLUME 95.6 fl (80.0-96.0); MONO # 0.5 10^3/uL (0.0-0.8); MONO % 12.2 % (2.0-8.0); NEUTROPHILS # 2.9 10^3/uL (1.5-8.5); NEUTROPHILS % 69.4 % (36.0-66.0); PLATELET COUNT, AUTOMATED 138 10^3/uL (150-450); WHITE BLOOD COUNT 4.1 10^3/uL (4.0-10.0)
[2020-10-26 06:00] VITALS: BP 162/81
[2020-10-26 06:12] LABS: BILIRUBIN,TOTAL 0.4 MG/DL (0.2-1.0); CALCIUM LEVEL 9.1 MG/DL (8.8-10.2); CREATININE FOR GFR 4.18 MG/DL (0.70-1.30); GLOMERULAR FILTRATION RATE 14.8 (>42); MAGNESIUM LEVEL 1.9 MG/DL (1.8-2.4); POTASSIUM SERUM 4.5 MEQ/L (3.5-5.1); TOTAL PROTEIN 6.2 GM/DL (6.4-8.2)
[2020-10-26] MEDS: TAMSULOSIN 0.4 MG CAP PO SCH (08:39)
[2020-10-26] MEDS: LEVOTHYROXINE 88MCG TABLET (0.088 MG) PO SCH (08:39)
[2020-10-26] MEDS: MECLIZINE 25 MG TABLET PO SCH ×2 (08:39→21:17)
[2020-10-26] MEDS: DOCUSATE SODIUM 100MG CAPSULE PO SCH (08:39)
[2020-10-26] MEDS: CALCITRIOL 0.25 MCG CAP (S0169) PO SCH (08:39)
[2020-10-26] MEDS: allopurinoL 100 MG TAB PO SCH (08:39)
[2020-10-26] MEDS: VALSARTAN 80 MG TAB (DIOVAN) PO SCH (08:39)
[2020-10-26] MEDS: PANTOPRAZOLE 40MG TAB (PROTONIX) PO SCH (08:39)
[2020-10-26] MEDS: APIXABAN 2.5 MG TAB (ELIQUIS) PO SCH ×2 (08:39→21:17)
[2020-10-26] MEDS: TORSEMIDE (DEMADEX) 50 MG PER 1/2 TAB PO SCH ×2 (08:40→17:33)
[2020-10-26] MEDS: MULTIVITAMINS/MINERALS THERAP 1 TAB PO SCH ×2 (08:40→08:50)
[2020-10-26] MEDS: HumaLOG INSULIN (NovoLOG) PER UNIT SC SCH ×4 (08:41→21:00)
[2020-10-26 08:56] VITALS: BP 167/84
[2020-10-26] MEDS ORDERED: cloNIDine HCL 0.2 MG/24 HR PATCH TD SCH (09:00)
[2020-10-26] MEDS: LIDOCAINE 5% (LIDODERM) PATCH TD PRN (10:04)
[2020-10-26] MEDS: ONDANSETRON 4MG/2ML VIAL IV PRN (10:04)
--- NOTE | 2020-10-26 13:18 | IPN ---
PROGRESS NOTE DATE: 10/26/2020 SUBJECTIVE: Patient was seen and examined at the bedside today morning during hemodialysis procedure. He is tolerating the hemodialysis procedure well. He reports that he is working with physical therapy. He still feels dizzy, and they are trying to fix the otolith in his ear for his vertigo. OBJECTIVE: Vital signs: Temperature is 97.1 degrees Fahrenheit, blood pressure 167/84, pulse 76, respiratory rate of 17, saturating 100% on room air. Intake and output: There is no urine output available. Weight in the bed scale is not available. PHYSICAL EXAMINATION: GENERAL: Patient is awake, alert, oriented times three, lying in bed in no apparent distress. HEAD AND NECK: Extraocular muscles are intact. Pupils equally round and reactive to light. Mucous membranes are moist. Neck is supple. Right internal jugular (IJ) tunneled hemodialysis catheter is noted. CARDIOVASCULAR: S1, S2, regular rate. Edema 1+ of the bilateral lower extremities. RESPIRATORY: Chest is clear to auscultation bilaterally. Bilateral equal air entry. No rales or rhonchi. ABDOMEN: Soft. Positive bowel sounds. Nontender. No organomegaly. MUSCULOSKELETAL: He has chronic venous stasis changes of bilateral lower extremities. CENTRAL NERVOUS SYSTEM: No focal deficit. Power is 5/5 in all extremities. LABORATORY REVIEW: CBC showed a WBC of 4.1, hemoglobin 9.6, platelets are 138. BMP showed sodium 141, potassium 4.5, chloride 107, bicarbonate 27, BUN 45, creatinine is 4.1. Albumin is 3. CURRENT INPATIENT MEDICATIONS: Patient's medications were all reviewed by myself. No significant change in the medications today as compared with yesterday. ASSESSMENT AND PLAN: 1. End-stage renal disease. Patient is being dialyzed at this time, and we will try to remove at least 3 liters of fluid as tolerated by his blood pressure. 2. Hypertension with hypertensive heart disease. Blood pressure is better optimized with optimization of fluid status. Continue clonidine and valsartan. 3. Congestive heart failure. Patient's latest echocardiogram done during this hospitalization showed left ventricular (LV) ejection fraction around 45%. He has underlying atrial fibrillation with controlled rate. He has LV hypertrophy with septal hypokinesis and apical hypokinesis. Normal right ventricle free wall motion. Pulmonary artery pressure was around 50 mmHg. Elevated central venous pressures and moderate-sized left pleural effusion. Patient continues to be on torsemide. Rest of the volume status is being optimized with dialysis. Unfortunately, as outpatient patient does not allow the nursing staff to remove more than 2 kg of fluid during dialysis. He usually misses at least one session of dialysis a week. 4. Anemia and end-stage renal disease. Continue current dose of Aranesp. 5. Dizziness. Patient is getting physical therapy.
--- NOTE | 2020-10-26 13:50 | IPNPDOC ---
Text Note Date of Service The patient was seen on 10/26/20. NOTE Subjective: Patient developed increased dizziness after physical therapy he r eported 1 episode of vomiting Objective: GENERAL APPEARANCE: NAD HEENT: no scleral icterus, no JVD, EOMI CARDIOVASCULAR: Irregularly irregular LUNGS: CTA ABDOMEN: soft & not tender w palpation MUSCULOSKELETAL: no cyanosis, no swelling INTEGUMENT: no generalized pallor NEUROLOGICAL: cranial nerve function from 2-12 intact, follows commands, speech not dysarthric Assessment/Plan Patient is 75 years old male with past medical history of end-stage renal disease, on hemodialysis on Wednesday,, Wednesday schedule, chronic hypertension, CAD, status post CABG, diastolic congestive heart failure, atrial fibrillation, a history of nephrectomy for renal cancer presented to hospital with dizziness. Patient stated that due to dizziness he missed dialysis today. Also patient reported intermittent chest pain substernal for past 2 days, no radiation, 5 out of 10. Patient denied fever, chills, nausea, vomiting, diarrhea. In ER patient was found to have hemoglobin of 10, no leukocytosis, troponin 0.11, the second troponin 0.10, BNP 7290, creatinine 4.56. EKG did not show any acute ischemic changes Problems (1) ESRD (end stage renal disease) Continue dialysis Nephrology team on board (2) Fluid overload Most likely secondary to missed dialysis Fluid volume managed by nephrology team (3) Chest pain I talked with Dr. Harden, he recommended to continue to monitor chest pain He thinks it is unlikely acute coronary syndrome, troponin elevation most likely secondary to fluid overload and kidney failure Troponin trended down Chest pain resolved (4) Diabetes Insulin sliding scale Diabetes diet (5) Hyperlipidemia Continue statin (6) CAD (coronary artery disease) Continue home meds Nitroglycerin as needed (7) Hypertensive urgency/hypertension Continue home meds, blood pressure usually became better after dialysis with fluid removal (8) Acute on chronic diastolic CHF (congestive heart failure) Most likely secondary to volume overload due to missed dialysis Echo showed diastolic dysfunction with ejection fraction of 45 to 50% Cardiac diet (9) Atrial fibrillation Heart rate under control Continue Eliquis Dizziness Most likely multifactorial secondary to dialysis treatment and possibly benign positional vertigo Continue PT/OT Meclizine added VS,Fishbone, I+O VS, Fishbone, I+O Laboratory Tests 10/26/20 05:29 Vital Signs Date Time Temp Pulse Resp B/P (MAP) Pulse Ox O2 Delivery O2 Flow Rate FiO2 10/26/20 08:56 167/84 10/26/20 06:00 97.1 76 17 100 Room Air I&O- Last 24 Hours up to 6 AM 10/26/20 06:00 Intake Total 1130 ml Balance 1130 ml LORETO CESAR Oct 26, 2020 13:50
[2020-10-26 14:00] VITALS: BP 137/60
--- NOTE | 2020-10-26 16:44 | REP ---
INDICATION: stenosis , dizziness. COMPARISON: None. TECHNIQUE: Duplex FINDINGS: Right carotid artery: CCA PSV 62.4. ICA PSV 90.7 ratio 1.5 Left carotid artery: CCA PSV 61.2. ICA PSV 87.2. Ratio 1.4. Antegrade flow is noted in both vertebral arteries. IMPRESSION: No stenosis in either carotid system. Antegrade flow in both vertebral arteries. <Electronically signed by Yuval Singleton > 10/26/20 1428
[2020-10-26] MEDS: MIRALAX *UNIT DOSE* 17GM PACKET PO PRN (17:52)
[2020-10-26] MEDS: ENTRESTO 49-51MG TABLET (SACUBITRIL/VALSARTAN) PO SCH (21:16)
[2020-10-26] MEDS: **NOTE PATIENT COMMENT** MISC XX SCH (21:17)
[2020-10-26] MEDS: ATORVASTATIN 20 MG TAB PO SCH (21:17)
[2020-10-26 22:00] VITALS: BP 126/58
[2020-10-27 05:56] LABS: EOS # 0.1 10^3/uL (0.0-0.5); EOS % 3.3 % (0.0-3.0); HEMOGLOBIN 10.2 g/dl (13.5-17.5); LYMPH # 0.7 10^3/uL (1.5-5.0); LYMPH % 17.2 % (24.0-44.0); MEAN CORPUSCULAR HEMOGLOBIN 30.4 pg (27.0-33.0); MEAN CORPUSCULAR HGB CONC 31.9 g/dl (32.0-36.5); MEAN CORPUSCULAR VOLUME 95.2 fl (80.0-96.0); MONO # 0.6 10^3/uL (0.0-0.8); MONO % 13.2 % (2.0-8.0); NEUTROPHILS # 2.7 10^3/uL (1.5-8.5); NEUTROPHILS % 64.8 % (36.0-66.0); PLATELET COUNT, AUTOMATED 153 10^3/uL (150-450); RED BLOOD COUNT 3.36 10^6/uL (4.30-6.10); WHITE BLOOD COUNT 4.2 10^3/uL (4.0-10.0)
[2020-10-27 06:00] VITALS: BP 144/72
[2020-10-27 06:24] LABS: BILIRUBIN,TOTAL 0.5 MG/DL (0.2-1.0); CREATININE FOR GFR 3.68 MG/DL (0.70-1.30); GLOMERULAR FILTRATION RATE 17.2 (>42); MAGNESIUM LEVEL 1.9 MG/DL (1.8-2.4); POTASSIUM SERUM 4.3 MEQ/L (3.5-5.1); TOTAL PROTEIN 6.1 GM/DL (6.4-8.2)
[2020-10-27] MEDS: MULTIVITAMINS/MINERALS THERAP 1 TAB PO SCH (09:00)
[2020-10-27] MEDS: HumaLOG INSULIN (NovoLOG) PER UNIT SC SCH ×4 (09:49→20:46)
[2020-10-27] MEDS: DOCUSATE SODIUM 100MG CAPSULE PO SCH (09:50)
[2020-10-27] MEDS: allopurinoL 100 MG TAB PO SCH (09:50)
[2020-10-27] MEDS: TORSEMIDE (DEMADEX) 50 MG PER 1/2 TAB PO SCH ×2 (09:50→18:05)
[2020-10-27] MEDS: MECLIZINE 25 MG TABLET PO SCH ×2 (09:50→20:47)
[2020-10-27] MEDS: ENTRESTO 49-51MG TABLET (SACUBITRIL/VALSARTAN) PO SCH ×2 (09:50→20:48)
[2020-10-27] MEDS: APIXABAN 2.5 MG TAB (ELIQUIS) PO SCH ×2 (09:50→20:47)
[2020-10-27] MEDS: TAMSULOSIN 0.4 MG CAP PO SCH (09:51)
[2020-10-27] MEDS: PANTOPRAZOLE 40MG TAB (PROTONIX) PO SCH (09:51)
[2020-10-27] MEDS: LEVOTHYROXINE 88MCG TABLET (0.088 MG) PO SCH (09:57)
[2020-10-27] MEDS: LIDOCAINE 5% (LIDODERM) PATCH TD PRN (09:58)
[2020-10-27] MEDS: MIRALAX *UNIT DOSE* 17GM PACKET PO PRN (09:58)
[2020-10-27] MEDS: ACETAMINOPHEN TAB 650MG DOSE (2X325MG) PO PRN (11:55)
[2020-10-27] MEDS ORDERED: MECL-86 PO (12:28)
--- NOTE | 2020-10-27 14:47 | DS.PDOC ---
Discharge Summary General Date of Admission Oct 22, 2020 at 11:28 Date of Discharge 10/27/20 Discharge Summary PROCEDURES PERFORMED DURING STAY: [None]. ADMITTING DIAGNOSES: ESRD (end stage renal disease) Fluid overload Chest pain Diabetes Hyperlipidemia CAD (coronary artery disease) Hypertensive urgency/hypertension Acute on chronic diastolic CHF (congestive heart failure) Atrial fibrillation Dizziness DISCHARGE DIAGNOSES: ESRD (end stage renal disease) Fluid overload Chest pain Diabetes Hyperlipidemia CAD (coronary artery disease) Hypertensive urgency/hypertension Acute on chronic diastolic CHF (congestive heart failure) Atrial fibrillation Dizziness COMPLICATIONS/CHIEF COMPLAINT: Dizziness,Fluid Overload. HISTORY OF PRESENT ILLNESS: Patient is 75 years old male with past medical history of end-stage renal disease, on hemodialysis on Wednesday,, Wednesday schedule, chronic hypertension, CAD, status post CABG, diastolic con gestive heart failure, atrial fibrillation, a history of nephrectomy for renal cancer presented to hospital with dizziness. Patient stated that due to dizziness he missed dialysis today. Also patient reported intermittent chest pain substernal for past 2 days, no radiation, 5 out of 10. Patient denied fever, chills, nausea, vomiting, diarrhea. In ER patient was found to have hemoglobin of 10, no leukocytosis, troponin 0.11, the second troponin 0.10, BNP 7290, creatinine 4.56. EKG did not show any acute ischemic changes HOSPITAL COURSE: During the hospital stay the following issues addressed (1) ESRD (end stage renal disease) Continue dialysis Nephrology team on board (2) Fluid overload Most likely secondary to missed dialysis Fluid volume managed by nephrology team (3) Chest pain I talked with Dr. Harden, he recommended to continue to monitor chest pain He thinks it is unlikely acute coronary syndrome, troponin elevation most likely secondary to fluid overload and kidney failure Troponin trended down Chest pain resolved (4) Diabetes Insulin sliding scale Diabetes diet (5) Hyperlipidemia Continue statin (6) CAD (coronary artery disease) Continue home meds Nitroglycerin as needed (7) Hypertensive urgency/hypertension Continue home meds, blood pressure usually became better after dialysis with fluid removal (8) Acute on chronic diastolic CHF (congestive heart failure) Most likely secondary to volume overload due to missed dialysis Echo showed diastolic dysfunction with ejection fraction of 45 to 50% Cardiac diet (9) Atrial fibrillation Heart rate under control Continue Eliquis Dizziness Most likely multifactorial secondary to dialysis treatment and possibly benign positional vertigo Continue PT/OT Meclizine added DISCHARGE MEDICATIONS: Please see below. ALLERGIES: Please see below. PHYSICAL EXAMINATION ON DISCHARGE: VITAL SIGNS: Please see below. GENERAL APPEARANCE: NAD HEENT: no scleral icterus, no JVD, EOMI CARDIOVASCULAR: Irregularly irregular LUNGS: CTA ABDOMEN: soft & not tender w palpation MUSCULOSKELETAL: no cyanosis, no swelling INTEGUMENT: no generalized pallor NEUROLOGICAL: cranial nerve function from 2-12 intact, follows commands, speech not dysarthric LABORATORY DATA: Please see below. PROGNOSIS: Fair ACTIVITY: [As tolerated]. 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 TIME SPENT ON DISCHARGE: 40 minutes. Vital Signs/I&Os Vital Signs Date Time Temp Pulse Resp B/P (MAP) Pulse Ox O2 Delivery O2 Flow Rate FiO2 10/27/20 06:00 97.3 81 18 144/72 (96) 100 Room Air I&O- Last 24 Hours up to 6 AM 10/27/20 06:00 Intake Total 480 ml Output Total 3000 ml Balance -2520 ml Laboratory Data Labs 24H Laboratory Tests 2 10/26/20 16:32: Bedside Glucose (Misc Panel) 97 10/26/20 20:06: Bedside Glucose (Misc Panel) 187H 10/27/20 05:37: Immature Granulocyte % (Auto) 0.5, Neutrophils (%) (Auto) 64.8, Lymphocytes (%) (Auto) 17.2L, Monocytes (%) (Auto) 13.2H, Eosinophils (%) (Auto) 3.3H, Basophils (%) (Auto) 1.0, Neutrophils # (Auto) 2.7, Lymphocytes # (Auto) 0.7L, Monocytes # (Auto) 0.6, Eosinophils # (Auto) 0.1, Basophils # (Auto) 0.0, Nucleated Red Blood Cells % (auto) 0.0, Anion Gap 5L, Glomerular Filtration Rate 17.2L, Calcium Level 9.0, Magnesium Level 1.9, Total Bilirubin 0.5, Aspartate Amino Transf (AST/SGOT) 6L, Alanine Aminotransferase (ALT/SGPT) 17, Alkaline Phosphatase 84, Total Protein 6.1L, Albumin 3.0L, Albumin/Globulin Ratio 1.0 10/27/20 11:37: Bedside Glucose (Misc Panel) 125H CBC/BMP Laboratory Tests 10/27/20 05:37 FSBS Laboratory Tests Test 10/26/20 16:32 10/26/20 20:06 10/27/20 11:37 Range/Units Bedside Glucose (Misc Panel) 97 187 125 83-110 MG/DL Discharge Medications Scheduled Allopurinol (Allopurinol) 100 Mg Tablet, 100 MG PO DAILY, (Reported) Apixaban (Eliquis) 2.5 Mg Tablet, 2.5 MG PO BID, (Reported) Atorvastatin Calcium (Atorvastatin Calcium) 40 Mg Tab, 40 MG PO QHS, (Reported) Calcitriol (Calcitriol) 0.25 Mcg Capsule, 0.25 MCG PO 3XW, (Reported) , , SAT Clonidine (Clonidine) 0.2 Mg Patch.tdwk, 0.2 MG TD QWEEK, (Reported) SATURDAYS, CURRENTLY APPLIED TO RIGHT ARM Docusate Sodium (Docusate Sodium) 100 Mg Capsule, 100 MG PO DAILY, (Reported) Levothyroxine Sodium (Levothyroxine Sodium) 88 Mcg Tablet, 88 MCG PO DAILY, (Reported) Meclizine HCl (Meclizine HCl) 25 Mg Tablet, 25 MG PO BID Multivitamins (Thera M Plus Tablet) 1 Tab Tab, 1 TAB PO DAILY, (Reported) Pantoprazole Sodium (Pantoprazole Sodium) 40 Mg Tablet.dr, 40 MG PO DAILY, (Reported) Sevelamer Carbonate (Renvela Oral Suspension) 0.8 Gm Powd.pack, 0.8 GM PO WM, ( Reported) Tamsulosin Hcl (Tamsulosin HCl) 0.4 Mg Capsule, 0.4 MG PO DAILY, (Reported) Torsemide (Torsemide) 100 Mg Tablet, 50 MG PO BID, (Reported) 0900, 1700 Valsartan (Valsartan) 80 Mg Tablet, 160 MG PO DAILY, (Reported) Scheduled PRN Famotidine (Famotidine) 20 Mg Tablet, 20 MG PO QHS PRN for HEARTBURN, (Reported) Lidocaine (Lidoderm) 5 % Dis, 2 PATCH TD DAILY PRN for PAIN, (Reported) APPLY TO LOWER BACK 12H ON 12H OFF Mag Hydrox/Aluminum Hyd/Simeth (Maalox Maximum Strength Susp) 355 Ml Oral.susp, 10 ML PO QID PRN for HEARTBURN/INDIGESTION, (Reported) Nitroglycerin (Nitrostat) 0.4 Mg Tab.subl, 0.4 MG SL NITRO PRN for CHEST PAIN, (Reported) Allergies Coded Allergies: Penicillins (Verified Allergy, Mild, rash/itching, 06/17/20) Tetracyclines (Verified Allergy, Mild, ITCHING, 06/17/20) Sulfa (Sulfonamide Antibiotics) (Unverified Allergy, Unknown, unknown, 06/17/20) erythromycin base (Unverified Allergy, Unknown, unknown, 06/17/20) minoxidil (Verified Adverse Reaction, Intermediate, ANASARCA, 06/17/20) Contrast Media (Verified Adverse Reaction, Mild, MADE LEG TURN RED, 06/17/20) amlodipine (Verified Adverse Reaction, Mild, FLUID RETENTION, 06/17/20) carvedilol (Verified Adverse Reaction, Mild, FLUID RETENTION, 06/17/20) hydralazine (Verified Adverse Reaction, Mild, FLUID RETENTION, 06/17/20) cephalexin (Unverified Adverse Reaction, Unknown, FLUID RETENTION, 06/17/20) LORETO CESAR DO Oct 27, 2020 14:47
--- NOTE | 2020-10-27 19:39 | IPN ---
NEPHROLOGY PROGRESS NOTE DATE: 10/27/2020 SUBJECTIVE: Patient was seen and examined at the bedside today morning. He reports that he was seen by physical therapy. He still reports some dizziness when he lays down. He was dialyzed yesterday. He tolerated the dialysis procedure very well. OBJECTIVE: VITAL SIGNS: Temperature 97.3 degrees Fahrenheit, blood pressure 144/72, pulse 81, respiratory rate 18, saturating 100% on room air. INTAKE AND OUTPUT: Ultrafiltration with hemodialysis was 3 liters yesterday. Weight in the bed scale is 71.8 kg. PHYSICAL EXAMINATION: GENERAL: Patient is awake, alert, oriented times three, sitting up in the bed, no apparent distress. HEAD AND NECK EXAM: Extraocular muscles intact. Pupils equally round and reactive to light. Mucous membranes are moist. Neck is supple. He has a tunneled hemodialysis catheter. CARDIOVASCULAR: S1, S2. Regular rate. No edema of the bilateral lower extremities. RESPIRATORY: Chest is clear to auscultation bilaterally. Bilateral equal air entry. No rales or rhonchi. ABDOMEN: Soft. Positive bowel sounds. Nontender. No organomegaly MUSCULOSKELETAL: No clubbing or cyanosis. Pulses are 2+. CENTRAL NERVOUS SYSTEM (HELICOPTER ENGINEER): No focal deficit. Power is 5/5 in all extremities. LABORATORY REVIEW: CBC showed WBC 4.2, hemoglobin 10.2, platelets 153. BMP showed sodium 139, potassium 4.3, chloride 106, bicarbonate 28, BUN 32, creatinine 3.6. CURRENT INPATIENT MEDICATIONS: Patient's medications were all reviewed by myself. His valsartan was stopped and he was started on Entresto, one tablet twice a day. No other significant change in medications today. ASSESSMENT AND PLAN: 1. End-stage renal disease. Patient was dialyzed yesterday. Next hemodialysis will be on Wednesday. 2. Hypertension with hypertensive heart disease. Patient is currently on clonidine, diuretics and valsartan has been replaced with Entresto. Blood pressure is controlled. 3. Chronic systolic congestive heart failure. Continue current dose of torsemide. Continue Entresto, which was started yesterday and he is tolerating it well. The rest of the volume status is being optimized with dialysis. 4. Anemia of end-stage renal disease. Continue Aranesp. Hemoglobin level is stable. 5. Dizziness. Patient was getting meclizine, but he reports he gets nauseated with meclizine. He is getting physical therapy. The rest of the management is per medical team.
[2020-10-27] MEDS: **NOTE PATIENT COMMENT** MISC XX SCH (20:46)
[2020-10-27] MEDS: ATORVASTATIN 20 MG TAB PO SCH (20:47)
[2020-10-28] MEDS: LEVOTHYROXINE 88MCG TABLET (0.088 MG) PO SCH (05:34)
[2020-10-28 06:00] VITALS: BP 143/77
[2020-10-28 06:27] LABS: BASO # 0.1 10^3/uL (0.0-0.2); BASO % 1.3 % (0.0-1.0); EOS # 0.1 10^3/uL (0.0-0.5); EOS % 3.1 % (0.0-3.0); HEMATOCRIT 31.3 % (42.0-52.0); HEMOGLOBIN 10.1 g/dl (13.5-17.5); LYMPH # 0.7 10^3/uL (1.5-5.0); LYMPH % 18.5 % (24.0-44.0); MEAN CORPUSCULAR HEMOGLOBIN 30.5 pg (27.0-33.0); MEAN CORPUSCULAR HGB CONC 32.3 g/dl (32.0-36.5); MEAN CORPUSCULAR VOLUME 94.6 fl (80.0-96.0); MONO # 0.6 10^3/uL (0.0-0.8); MONO % 14.7 % (2.0-8.0); NEUTROPHILS # 2.4 10^3/uL (1.5-8.5); NEUTROPHILS % 61.9 % (36.0-66.0); PLATELET COUNT, AUTOMATED 167 10^3/uL (150-450); RED BLOOD COUNT 3.31 10^6/uL (4.30-6.10); WHITE BLOOD COUNT 3.9 10^3/uL (4.0-10.0)
[2020-10-28 07:10] LABS: BILIRUBIN,TOTAL 0.5 MG/DL (0.2-1.0); CALCIUM LEVEL 8.8 MG/DL (8.8-10.2); CREATININE FOR GFR 4.64 MG/DL (0.70-1.30); GLOMERULAR FILTRATION RATE 13.1 (>42); MAGNESIUM LEVEL 1.9 MG/DL (1.8-2.4); POTASSIUM SERUM 4.6 MEQ/L (3.5-5.1); TOTAL PROTEIN 5.8 GM/DL (6.4-8.2)
[2020-10-28] MEDS: ENTRESTO 49-51MG TABLET (SACUBITRIL/VALSARTAN) PO SCH ×2 (08:24→21:37)
[2020-10-28] MEDS: APIXABAN 2.5 MG TAB (ELIQUIS) PO SCH ×2 (08:24→21:37)
[2020-10-28] MEDS: HumaLOG INSULIN (NovoLOG) PER UNIT SC SCH ×4 (08:24→21:00)
[2020-10-28] MEDS: TORSEMIDE (DEMADEX) 50 MG PER 1/2 TAB PO SCH ×2 (08:24→17:38)
[2020-10-28] MEDS: allopurinoL 100 MG TAB PO SCH (08:24)
[2020-10-28] MEDS: PANTOPRAZOLE 40MG TAB (PROTONIX) PO SCH (08:24)
[2020-10-28] MEDS: DOCUSATE SODIUM 100MG CAPSULE PO SCH (08:24)
[2020-10-28] MEDS: TAMSULOSIN 0.4 MG CAP PO SCH (08:24)
[2020-10-28] MEDS: MULTIVITAMINS/MINERALS THERAP 1 TAB PO SCH ×2 (08:24→08:30)
[2020-10-28] MEDS: MECLIZINE 25 MG TABLET PO SCH ×2 (08:25→21:37)
[2020-10-28] MEDS: LIDOCAINE 5% (LIDODERM) PATCH TD PRN (08:27)
[2020-10-28] MEDS: MIRALAX *UNIT DOSE* 17GM PACKET PO PRN (08:27)
[2020-10-28] MEDS: ACETAMINOPHEN TAB 650MG DOSE (2X325MG) PO PRN (12:13)
[2020-10-28] MEDS: ATORVASTATIN 20 MG TAB PO SCH (21:37)
[2020-10-28] MEDS: **NOTE PATIENT COMMENT** MISC XX SCH (21:38)
[2020-10-29] MEDS: ACETAMINOPHEN TAB 650MG DOSE (2X325MG) PO PRN (00:21)
[2020-10-29 06:00] VITALS: BP 156/73
[2020-10-29] MEDS: LEVOTHYROXINE 88MCG TABLET (0.088 MG) PO SCH (06:00)
[2020-10-29 06:09] LABS: BASO % 1.1 % (0.0-1.0); EOS # 0.2 10^3/uL (0.0-0.5); HEMATOCRIT 31.8 % (42.0-52.0); HEMOGLOBIN 10.2 g/dl (13.5-17.5); LYMPH # 0.8 10^3/uL (1.5-5.0); LYMPH % 20.6 % (24.0-44.0); MEAN CORPUSCULAR HEMOGLOBIN 30.4 pg (27.0-33.0); MEAN CORPUSCULAR HGB CONC 32.1 g/dl (32.0-36.5); MEAN CORPUSCULAR VOLUME 94.6 fl (80.0-96.0); MONO # 0.5 10^3/uL (0.0-0.8); MONO % 13.9 % (2.0-8.0); NEUTROPHILS # 2.2 10^3/uL (1.5-8.5); NEUTROPHILS % 59.6 % (36.0-66.0); PLATELET COUNT, AUTOMATED 174 10^3/uL (150-450); RED BLOOD COUNT 3.36 10^6/uL (4.30-6.10); WHITE BLOOD COUNT 3.7 10^3/uL (4.0-10.0)
[2020-10-29 06:39] LABS: BILIRUBIN,TOTAL 0.4 MG/DL (0.2-1.0); CALCIUM LEVEL 8.4 MG/DL (8.8-10.2); CREATININE FOR GFR 5.45 MG/DL (0.70-1.30); GLOMERULAR FILTRATION RATE 10.9 (>42); MAGNESIUM LEVEL 1.8 MG/DL (1.8-2.4); POTASSIUM SERUM 4.6 MEQ/L (3.5-5.1); TOTAL PROTEIN 5.9 GM/DL (6.4-8.2)
[2020-10-29] MEDS ORDERED: SODIUM CHLORIDE 0.9% 1000ML IV PRN (07:00)
[2020-10-29] MEDS: MIRALAX *UNIT DOSE* 17GM PACKET PO PRN (08:20)
[2020-10-29] MEDS: HumaLOG INSULIN (NovoLOG) PER UNIT SC SCH ×3 (08:20→17:30)
[2020-10-29] MEDS: LIDOCAINE 5% (LIDODERM) PATCH TD PRN (08:20)
[2020-10-29] MEDS: ENTRESTO 49-51MG TABLET (SACUBITRIL/VALSARTAN) PO SCH (08:21)
[2020-10-29] MEDS: DOCUSATE SODIUM 100MG CAPSULE PO SCH (08:21)
[2020-10-29] MEDS: allopurinoL 100 MG TAB PO SCH (08:21)
[2020-10-29] MEDS: CALCITRIOL 0.25 MCG CAP (S0169) PO SCH (08:21)
[2020-10-29] MEDS: TORSEMIDE (DEMADEX) 50 MG PER 1/2 TAB PO SCH ×2 (08:21→17:00)
[2020-10-29] MEDS: MECLIZINE 25 MG TABLET PO SCH (08:21)
[2020-10-29] MEDS: PANTOPRAZOLE 40MG TAB (PROTONIX) PO SCH (08:21)
[2020-10-29] MEDS: MULTIVITAMINS/MINERALS THERAP 1 TAB PO SCH (08:21)
[2020-10-29] MEDS: TAMSULOSIN 0.4 MG CAP PO SCH (08:21)
[2020-10-29] MEDS: APIXABAN 2.5 MG TAB (ELIQUIS) PO SCH (08:21)
--- NOTE | 2020-10-29 14:40 | IPN ---
PROGRESS NOTE DATE: 10/29/2020 SUBJECTIVE: Ms. Willson is seen and examined this morning at the bedside and later in the afternoon in the hemodialysis unit receiving his treatment. He was discharged pending post dialysis. He has no complaints. He reports his dizziness is much improved since he was started on meclizine. He is looking forward to going home. OBJECTIVE: Vital signs: Temperature 97.4, pulse 63, respiratory rate 16, blood pressure 156/73, saturating 98% on room air. Intake yesterday was 1.5 liters, weight in the bed scale today was refused by the patient. General: The patient is seen earlier in the morning at the bedside and later in the afternoon in the hemodialysis unit receiving his treatment, awake, alert, oriented x3, comfortable in no distress, elderly male in good spirits. Extraocular muscles are intact. There is bitemporal wasting. Neck is supple. There is a tunneled hemodialysis catheter in the right chest wall. Heart sounds are irregularly irregular. S1, S2. There is 1+ ankle edema. Lungs show clear breath sounds bilaterally. No crackle or rales. Abdomen is soft nontender. There are bowel sounds. Extremities show 1+ edema in the ankles, mostly. Neurologic: He is oriented x3. Baseline mentation. LABORATORY DATA: White count 3.7, hemoglobin 10.2, platelets 174, sodium 138, potassium 4.6, bicarbonate 24, magnesium 1.8, albumin 3.0. IMAGING: He had a carotid Duplex that shows no stenosis in either carotid system. INPATIENT MEDICATIONS: Reviewed by myself and no changes are noted over the past 48 hours. PROBLEMS: 1. End-stage renal disease on hemodialysis on Wednesday, , Wednesday schedule. The patient is being dialyzed today. Goal fluid removal will be around 2 to 3 liters. His electrolytes and volume status are acceptable. Continue current dialysis prescription. 2. Hypertension with hypertensive heart disease. He continues on clonidine and ENTRESTO along with torsemide. His blood pressures are acceptably controlled. 3. Chronic systolic congestive heart failure. Volume status is principally regulated by dialysis. He is dialyzed today. Continue current dose of torsemide. Continue ENTRESTO. 4. Anemia of end-stage renal disease. He continues on Aranesp with dialysis. Hemoglobin is 10.2 on the latest labs, which is optimal and at goal. DISPOSITION: The patient is stable for discharge post dialysis today from a nephrology point of view.
--- NOTE | 2020-10-29 14:42 | IPNPDOC ---
Text Note Date of Service The patient was seen on 10/29/20. NOTE Subjective: Patient is a 75-year-old male who presented to the hospital with dizziness. Patient was going to be discharged on 10/27/2020 however, patient needed to work with physical therapy for a few more days. Patient had discharge summary dictated by Dr. Dahl on 10/27/2020. When patient was not discharged, patient was made ALC status. Patient was deemed ready to be discharged on 10/29/2020 and patient was discharged. Patient was feeling better and did not have any other complaints today. Physical exam: Vitals: See below General: Alert and oriented male patient who was standing in the bathroom when I walked in. Patient was able to walk using his walker to the bed without any difficulty. Patient did not appear to be in any acute distress. HEENT: Normocephalic, atraumatic, moist mucous membranes. Neck: No lymphadenopathy or thyromegaly Cardiac: Regular rate and rhythm, no murmurs, normal S1, normal S2 Pulm: Clear to auscultation bilaterally. No wheezes, rhonchi, rales Abd: Nondistended, nontender to palpation, normal bowel sounds Ext: No edema bilateral lower extremities Labs: See below Imaging: No new imaging has been performed Assessment/plan: 75-year-old male presented with dizziness who was going to be discharged on 10/27/2020 who ultimately stayed to work with physical therapy and was discharged home with outpatient physical therapy on 10/29/2020. 1. End-stage renal disease. Patient was getting at dialysis today and will be discharged after dialysis. 2. Fluid overload. This is most likely secondary to missed dialysis. Patient received dialysis today will go back to his regular schedule once discharge. 3. Chest pain. Patient does not have chest pain at this time. Cardiology was contacted who did not believe that the patient had acute coronary syndrome. 4. Diabetes. Continue with outpatient treatment. 5. Hyperlipidemia. Continue with outpatient treatment. 6. Coronary artery disease. Continue with your outpatient treatment. 7. Hypertension. Continue with your home blood pressure medications. 8. Acute on chronic diastolic CHF. Most likely due to fluid overload. Continue with dialysis. 9. Atrial fibrillation. Continue with your outpatient treatment. 10. Dizziness. Likely multifactorial. Continue with outpatient physical therapy. Disposition: Patient was discharged home on 10/29/2020. VS,Fishbone, I+O VS, Fishbone, I+O Laboratory Tests 10/29/20 05:38 Vital Signs Date Time Temp Pulse Resp B/P (MAP) Pulse Ox O2 Delivery O2 Flow Rate FiO2 10/29/20 06:00 97.4 63 16 156/73 (100) 98 Room Air I&O- Last 24 Hours up to 6 AM0 10/29/20 06:00 Intake Total 1560 ml Output Total 0 ml Balance 1560 ml EMMA LAMB DO Oct 29, 2020 14:42
== END 2020-10-29 18:44 | disposition home or self-care (01) | DRG 291 ==
LOC: M ED 11:27 → M ED INP 11:28 → ENRESERV 19:06 → M PCU 20:22 → M MSPAV 10-25 11:54 → OBSVTOIN 10-28 14:27 → UNDODISOB 10-29 18:44
PROVIDERS: ADMIT Internal Medicine; ATTEND Family Medicine
PROC: 5A1D70Z Performance of Urinary Filtration, Intermittent, Less than 6 Hours Per Day (ICD-10-PCS; principal; 2020-10-28)
DX: I13.2 Hypertensive heart and chronic kidney disease with heart failure and with stage 5 chronic kidney disease, or end stage renal disease (principal); I50.23 Acute on chronic systolic (congestive) heart failure; N18.6 End stage renal disease; I48.20 Chronic atrial fibrillation, unspecified; N25.81 Secondary hyperparathyroidism of renal origin; R07.89 Other chest pain; E11.22 Type 2 diabetes mellitus with diabetic chronic kidney disease; K57.30 Diverticulosis of large intestine without perforation or abscess without bleeding; E78.5 Hyperlipidemia, unspecified; M10.30 Gout due to renal impairment, unspecified site; D63.1 Anemia in chronic kidney disease; I87.2 Venous insufficiency (chronic) (peripheral); E11.42 Type 2 diabetes mellitus with diabetic polyneuropathy; M48.02 Spinal stenosis, cervical region; E11.51 Type 2 diabetes mellitus with diabetic peripheral angiopathy without gangrene; F41.9 Anxiety disorder, unspecified; I25.10 Atherosclerotic heart disease of native coronary artery without angina pectoris; I16.0 Hypertensive urgency; K21.9 Gastro-esophageal reflux disease without esophagitis; Z95.5 Presence of coronary angioplasty implant and graft; Z90.5 Acquired absence of kidney; Z85.528 Personal history of other malignant neoplasm of kidney; Z91.15 Patient's noncompliance with renal dialysis; Z79.01 Long term (current) use of anticoagulants; Z79.899 Other long term (current) drug therapy; Z88.0 Allergy status to penicillin; Z88.2 Allergy status to sulfonamides; Z88.1 Allergy status to other antibiotic agents; Z88.8 Allergy status to other drugs, medicaments and biological substances; Z91.041 Radiographic dye allergy status; Z99.2 Dependence on renal dialysis; Z85.828 Personal history of other malignant neoplasm of skin; Z86.010 Personal history of colon polyps; Z98.49 Cataract extraction status, unspecified eye

== ENCOUNTER 2021-01-21 18:39 | Inpatient (IN) | payer MEDICARE ==
[~2021-01-21] VITALS: Ht 185.4 cm; Wt 70.2 kg
[~2021-01-21 18:39] MED LIST changes: +CLON0.2D6 TD; -KLOR10TA76 PO; +MAALSUS19 PO; +MECL-86 PO; +POTA-136 PO; +RENV0.8P PO; +VALS1TAB66 PO
--- OUTSIDE RECORDS SUMMARY | 2021-01-21 18:46 | CCD | Continuity of Care Document ---
Author Author Jose Antonio GAITAN RPA Organization Unknown Address [address] [facility] [address] [place] [address] Phone [phone] Problems Active Problems Provider Date Hypothyroidism Onset: 12/06/2000 Chronic bronchitis [facility] Onset: 04/15 Type 2 diabetes mellitus Dennis Bryson RPA Onset: 04/25 Note: Dr. Wilson Allergic rhinitis Marion Weldon RPA Onset: 01/30/2005 Hyperparathyroidism eSbastian Gaitan, RPA Onset: 06/12/2010 Note: Dr. Wilson Gout Sebastian Gaitan, RPA Onset: 06/12/2010 Absent kidney Sbeastian Gaitan, RPA Onset: 06/12/2010 Note: Dr. Wilson [...] uns pecified Sebastian Gaitan RPA Onset: 09/18/2019 Acute subendocardial infarction Sebastian Gaitan RPA Onset : 06/14/2020 Social History Type Date Description Comments Sex Unknown Tobacco Use Start: Unknown Never Smoked Cigarettes ETOH Use alcohol use: never used Tobacco Use Start: Unknown Patient has never smoked Allergies, Adverse Reactions, Alerts Active Allergies Reaction Severity Comments Date Penicillin 12/13/2000 Tetracycline 12/13/2000 Sulfa Drugs 12/13/2000 Erythromycin 05/12/2002 IVP Dye 09/25/2010 Carvedilol Per Cardiology 10/29/2016 Amlodipine 06/22/2018 Hydralazine 06/22/2018 Losartan 06/14/2020 Keflex 06/14/2020 Medications Active Medications SIG Qnty Indications Ordering Provide r Date Acetaminophen 325mg Tablets 2 tabs by mouth every 6 hours as needed 100tabs Monique Miller, [facility] 06/14/2020 Valsartan 160mg Tablets 1 by mouth every day David Toledo D.O., [facility] 04/2020 Onetouch Delica Plus Lancets Extra Fine 33G Plus 33G Misc test 4X daily as directed. E11.9 360units David Toledo D.O., [facility] 03/22/2020 Onetouch Verio Strips for testing bs 4X daily dx:e11.9 360units Davdi Toledo D.O., [facility] 0 03/22/2020 Ventolin HFA 108(90Base) mcg/Act A erosol ii puffs every 4-6 hours as needed 54gm David robert D.O., [facility] 08/14/2019 Cane/Adjustable/Aluminum/Round Handle Misc use to assist in ambulation dx: 274.9, m54.16, 724.4 1units David Toledo D.O., [facility] 09/14/2018 Prevnar 13 Suspension injection x 1 .500ml David Toledo D.O., [facility] 09/30/2017 Xanax 0.5mg Tablets 1 by mouth twice a day as needed (istop: [id number]) 60tabs Shelbi Miller, [facility] 07/29/2016 Lidoderm 5% Patches 2 top every day for 12 hours 180units David Toledo D.O., [facility] 02/2010 Magnesium Oxide 400mg Tablets 1 by mouth every day Unknown Tamsulosin HCL 0.4mg Capsules 2 by mouth every day Unknown Pantoprazole Sodium 40mg Tablets D R 1 by mouth every day Unknown Famotidine 20mg Tablets 1 by mouth at bedtime for GERD prn Unknown Diclofenac Sodium 1% Gel apply 2 gm topically every 6 hours as needed for pain Unkno wn Clopidogrel Bisulfate 75mg Tablets 1 by mouth every day Unknown Calcitriol 0.25mcg Capsules 1 by mouth every day Unknown Eliquis 2.5mg Tablets 1 by mouth twice a day Unknown Clonidine 0.1mg/24HR Patches Weekl y 1 topically every week Unknown Torsemide 100mg Tablets 1/2 by mouth daily Unknown Synthroid 88mcg Tablets 1 by mouth every day Unknown Colace 100mg Capsules 1 by mouth twice a day Unknown Sensipar 30mg Tablets 1 every 2 weeks Unknown Atorvastatin Calcium 40mg Tablets 1 po [...] CPT Code Status Date Vaccine Lot # [id number] Given 12/28/2018 Pneumococcal Immunization S0 [id number] [id number] Given 12/30/2010 Influenza Vaccin e (Fluzone) 3Yrs Of Age Or Older Medicare Plans [id number] Given 12/30/2010 Pneumococcal Immunization 12 [id number] Given 12/30/2010 Influenza Virus Vac. Split Virus Individuals 3 Years And Above [id number] Given 10/22/2003 Pneumococcal Immunization Vital Signs Date Vital Result Comment 07/29/2020 1:34pm BP Systolic 130 mmHg BP Diastolic 80 mmHg Body Temperature 97.0 F Heart Rate 70 /min Respiratory Rate 16 /min Height 72 inches 6'0" Weight 156.00 lb [place] Body Weight 178 lb BMI (Body Mass Index) 21.2 kg/m2 O2 % BldC Oximetry 98 % 07/12/2020 2:20pm BP Systolic 158 mmHg BP Diastolic 88 mmHg Body Temperature 97.6 F Heart Rate 80 /min Respiratory Rate 14 /min Height 72 inches 6'0" Weight 163.00 lb [place] Body Weight 178 lb BMI (Body Mass Index) 22.1 kg/m2 O2 % BldC Oximetry 92 % Results Test Acquired Date Facility Test Result H/L Range Note Cardiac Marker Panel 10/22/2020 [facility] ( Interface) [phone] CPK Creatine Phosphokinase 43 U/L Normal 39-30 8 CK-MB Value Mass < 1.0 NG/ML Normal <3.6 MB/CK Relative Index 2.33 Normal < Or =4 1 Troponin I 0.10 NG/ML Normal < 0.10 2 Laboratory test finding 10/22/2020 [facility] (Interface) [phone] Bedside Glucose 146 mg/dL High 83-110 CBC With Differential 10/22/2020 [facility]) [phone] White Blood Count 3.8 10 Low 4.0-10.0 Red Blood Count 3.25 10 Low 4.30-6.10 Hemoglobin 10.0 g/dL Low 13.5-17.5 Hematocrit 31.0 % Low 42.0-52.0 Mean Corpuscular Volume 95.4 fl Normal 80.0-96.0 Mean Corpuscular Hemoglobin 30.8 pg Normal 27.0-33.0 Mean Corpuscular HGB Conc 32.3 g/dL Normal 32.0-36.5 Red Cell Distribution Width 14.2 % Normal 11.5-14.5 Platelet Count, Automated 135 10 Low 150-450 Neutrophils % 82.8 % High 36.0-66.0 Lymph % 7.0 % Low 24.0-44.0 [place] % 6.8 % Normal 2.0-8.0 Eos % 2.6 % Normal 0.0-3.0 Baso % 0.5 % Normal 0.0-1.0 Immature Granulocyte % 0.3 % Normal 0-3.0 Nucleated Red Blood Cell % 0.0 % Normal 0-0 Neutrophils # 3.2 10 Normal 1.5-8.5 Lymph # 0.3 10 Low 1.5-5.0 [place] # 0.3 10 Normal 0.0-0.8 Eos # 0.1 10 Normal 0.0-0.5 Baso # 0.0 10 Normal 0.0-0.2 Cardiac Marker Panel 10/22/2020 [facility] ( [facility]) [phone] CPK Creatine Phosphokinase 36 U/L Low 39-30 8 CK-MB Value Mass 1.8 NG/ML Normal <3.6 MB/CK Relative Index 5.00 High < Or =4 3 Troponin I 0.11 NG/ML High < 0.10 4 Liver Profile 10/22/2020 [facility] ([facility]) [phone] Ast/Sgot 11 U/L Normal 7-37 Alt/SGPT 21 U/L Normal 12-78 Alkaline Phosphatase 77 U/L Normal 45-117 Bilirubin,Total 0.6 mg/dL Normal 0.2-1.0 Bilirubin,Direct 0.2 mg/dL Normal 0.0-0.2 Total Protein 6.3 GM/DL Low 6.4-8.2 Albumin 3.2 GM/DL Normal 3.2-5.2 Albumin/Globulin Ratio 1.0 Normal Basic Metabolic Profile 10/22/2020 [facility]Interface[facility] [phone] Glucose, Fasting 156 mg/dL High 70-100 Blood Urea Nitrogen 80 mg/dL High 7-18 Creatinine For GFR 4.56 mg/dL High 0.70-1.30 Glomerular Filtration Rate 13.4 Low >42 5 Sodium Level 140 mEq/L Normal 136-145 Potassium Serum 4.4 mEq/L Normal 3.5-5.1 Chloride Level 105 mEq/L Normal 98-107 Carbon Dioxide Level 28 mEq/L Normal 21-32 Anion Gap 7 mEq/L Low 8-16 Calcium Level 8.8 mg/dL Normal 8.8-10.2 Laboratory test finding 10/22/2020 [facility] [phone] Lipase 117 U/L Normal 73-393 Thyroid Stimulating Hormone 2.700 uIU/ML Normal 0.358-3.740 Free T4 1.05 ng/dL Normal 0.76-1.46 NT-Pro BNP 7290 pg/mL High <450 CMP 07/12/2020 [facility] Glu 164 mg/dL High 70 - 110 6 BUN 51 mg/dL High 8 - 23 Creat 3.3 mg/dL High 0.7 - 1.2 BUN/Creatinine Ratio 15.1 Calc Na 139 mmol/L 136 - 145 K 3.9 mmol/L 3.5 - 5.1 CL 99.4 mmol/L 98.0 - 107.0 Co2 24.3 mmol/L 22.0 - 29.0 CA 9.5 mg/dL 8.6 - 10.2 TP 6.3 g/dL Low 6.6 - 8.7 Alb 4.1 g/dL 3.5 - 5.2 A/G Ratio 1.9 Calc Globulin 2.2 Calc Alp 94.2 U/L 40 - 129 Alt (SGPT) 17 U/L 0 - 41 Ast (Sgot) 16 U/L 0 - 40 Tbili 0.63 mg/dL 0.0 - 1.2 Osmolality-Calculated 294.2 Calc Anion Gap 19 mmol/L eGFR 20 # Calc 7 eGFR Non-Afr. Burmese 17 # Calc 8 CBC With Differential/Platelet 07/12/2020 [facility] N E WBC 4.0 x10E3/uL 3.4-10.8 RBC 3.66 x10E6/uL Low 4.14-5.80 Hemoglobin 11.5 g/dL Low 13.0-17.7 Hematocrit 35.6 % Low 37.5-51.0 MCV 97 fL 79-97 MCH 31.4 pg 26.6-33.0 MCHC 32.3 g/dL 31.5-35.7 RDW 13.5 % 11.6-15.4 Platelets 176 x10E3/uL 150-450 Neutrophils 74 % Not Estab. Lymphs 13 % Not Estab. Monocytes 10 % Not Estab. Eos 2 % Not Estab. Basos 1 % Not Estab. Immature Cells TNP Neutrophils (Absolute) 3.0 x10E3/uL 1.4-7.0 Lymphs (Absolute) 0.5 x10E3/uL Low 0.7-3.1 Monocytes(Absolute) 0.4 x10E3/uL 0.1-0.9 Eos (Absolute) 0.1 x10E3/uL 0.0-0.4 Baso (Absolute) 0.0 x10E3/uL 0.0-0.2 Immature Granulocytes 0 % Not Estab. Immature Grans (Abs) 0.0 x10E3/uL 0.0-0.1 NRBC TNP Hematology Comments: [facility] CBC With Differential 06/17/2020 [facility] ([facility]) [phone] White Blood Count 4.2 10 Normal 4.0-10.0 Red Blood Count 3.59 10 Low 4.30-6.10 Hemoglobin 11.3 g/dL Low 13.5-17.5 Hematocrit 36.6 % Low 42.0-52.0 Mean Corpuscular Volume 101.9 fl High 80.0-96.0 Mean Corpuscular Hemoglobin 31.5 pg Normal 27.0-33.0 Mean Corpuscular HGB Conc 30.9 g/dL Low 32.0-36.5 Red Cell Distribution Width 14.6 % High 11.5-14.5 Platelet Count, Automated 123 10 Low 150-450 Neutrophils % 68.3 % High 36.0-66.0 Lymph % 15.6 % Low 24.0-44.0 [place] % 12.7 % High 2.0-8.0 Eos % 2.2 % Normal 0.0-3.0 Baso % 0.7 % Normal 0.0-1.0 Immature Granulocyte % 0.5 % Normal 0-3.0 Nucleated Red Blood Cell % 0.0 % Normal 0-0 Neutrophils # 2.9 10 Normal 1.5-8.5 Lymph # 0.7 10 Low 1.5-5.0 [place] # 0.5 10 Normal 0.0-0.8 Eos # 0.1 10 Normal 0.0-0.5 Baso # 0.0 10 Normal 0.0-0.2 1 DIAGNOSIS CRITERIA MMB ng/ml Relative Index (RI) NON-AMI < or = 5 N/A LANE ZONE > 5 < or = 4 AMI > 5 > 4 2 Troponin I Reference Interva l for Siemens [place] LOCI: 99th Percentile= 0.00-0.045 ng/ml Risk Stratification: <= 0.10 ng/ml Decreased Risk for Adverse Clinical Events. 0.10-1.50 ng/ml Increased Risk for Adv erse Clinical Events. Evaluation of additional criterion and/or repeat testing in 2-6 hours is suggested to rule out myocardial damage. >= 1.50 ng/ml Indicative of Myocardial Injury. 3 DIAGNOSIS CRITERIA MMB ng/ml Relative Index (RI) NON-AMI < or = 5 N/A LANE ZONE > 5 < or = 4 AMI > 5 > 4 4 Troponin I Reference Interva l for Siemens [place] LOCI: 99th Percentile= 0.00-0.045 ng/ml Risk Stratification: <= 0.10 ng/ml Decreased Risk for Adverse Clinical Events. 0.10-1.50 ng/ml Increased Risk for Adv erse Clinical Events. Evaluation of additional criterion and/or repeat testing in 2-6 hours is suggested to rule out myocardial damage. >= 1.50 ng/ml Indicative of Myocardial Injury. 5 Units are mL/min/1.73 m2 Chronic Kidney Disease Staging per NKF: Stage I & II GFR >=60 Normal to Mildly Decreased Stage III GFR 30-59 Moderately Decreased Stage IV GFR 15-29 Severely Decreased Stage V GFR <15 Very Little GFR Left ESRD GFR <15 on RAIL OPERATIONS CONTROLLER 6 CHRONIC KIDNEY DISEASE STAGI NG PER NKF: MALE GFR INTERPRETATION: 20-49 YRS: >60 mL/min Normal 50-59 YRS: >56 mL/min Normal 60-69 YRS: >49 mL/min Normal 70-79 YRS: >42 mL/min Normal 80 and above >35 mL/min Normal FEMALE GRF INTERPRETATION: 20-39 YRS: >60 mL/min Normal 40-49 YRS: >58 mL/min Normal 50-59 YRS: >51 mL/min Normal 60-69 YRS: >45 mL/min Normal 70-79 YRS: >39 mL/min Normal 80 and above >32 mL/min Normal 7 CKD-EPI 8 CKD-EPI Procedures Date Code Description Status 07/29/2020 60100 Office/Outpatient Established Lo w MDM 20-29 Min Completed 07/12/2020 41707 Office/Outpatient Established Mo d MDM 30-39 Min Completed 06/14/2020 80063 Office/Outpatient Established Mo d MDM 30-39 Min Completed Medical Devices Description No Information Available Encounters Type Date Location Provider Dx Diagnosis Office Visit 07/29/2020 1:30p [facility] Sebastian Gaitan, RP A K21.9 Gastro-esophageal reflux disease without esophagitis K29.70 Gastritis, unspecified, with out bleeding Z79.01 penitentiary (current) use of a nticoagulants K92.2 Gastrointestinal hemorrhage, unspecified Office Visit 07/12/2020 2:00p [facility] Marcos Palumbo M. D. L03.116 Cellulitis of left lower limb R05 Cough I10 Essential (primary) hyperten brittany Office Visit 06/14/2020 3:00p [facility] Sebastian Gaitan, RP A I22.2 Subsequent non-St elevation (Nstemi) myocardial infarction I48.20 Chronic atrial fibrillation, unspecified I80.02 Phlebitis and thombophlb of superfic vessels of l low extrem Assessments Date Code Description Provider 07/29/2020 K21.9 Gastro-esophageal reflux disease without esophagitis Sebastian Gaitan, RPA 07/29/2020 K29.70 Gastritis, unspecified, without bleeding Sebastian Gaitan, RPA 07/29/2020 Z79.01 penitentiary (current) use of antic oagulants Sebastian Gaitan, ANNA 07/29/2020 K92.2 Gastrointestinal hemorrhage, uns pecified Sebastian Gaitan, RPA 07/12/2020 L03.116 Cellulitis of left lower limb Mi Marcos herring M.D. 07/12/2020 R05 Cough Marcos Palumbo M.D. 07/12/2020 I10 Essential (primary) hypertension Marcos Palumbo M.D. 06/14/2020 I22.2 Subsequent non-St elevation (Nst lei) myocardial infarction Sebastian Gaitan, RPA 06/14/2020 I48.20 Chronic atrial fibrillation, uns pecified Sebastian Gaitan, RPA 06/14/2020 I80.02 Phlebitis and thromb ophlebitis of superficial vessels of left lower extremity Sebastian Gaitan, RPA Plan of Treatment No Information Available Functional Status Description No Information Available Mental Status Description No Information Available Referrals Refer to Dr Reason for Referral Status Appt Date [facility] Dermatology recurrent cellulitis- eval and rx Sent [address] [place] [id number] [phone]
--- OUTSIDE RECORDS SUMMARY | 2021-01-21 18:46 | CCD | Continuity of Care Document ---
Author Organization Unknown Address Unknown Phone Unavailable Care Team Providers Care Floor Winder Name Role Phone Joseph Wilson MD AUTM [phone] Alvarez Johnson MD AUTM [phone] Sebastian Gaitan AUTM [phone] Matt Ibarra MD AUTM [phone] Dialysis (Nephrolo AUTM [phone] Problems Active Problems Provider Date Benign hypertensive [...] Permanent atrial fibrillation GERARDO Amin Onset: 05/01/2020 Acute subendocardial infarction GERARDO Amin Onset : 06/12/2020 Social History Type Date Description Comments Sex Unknown Tobacco Use Start: Unknown Never Smoked Cigarettes ETOH Use Does not consume alcohol Tobacco Use Start: Unknown Patient has never smoked Smoking Status Reviewed: 07/26/20 Patient has never smoked Exercise Type/Frequency Walks sporadically Exercise Type/Frequency Does housework twice a w [place] Exercise Limitations Back Pain Exercise Limitations Joint Pain Exercise Limitations Fatigue Allergies, Adverse Reactions, Alerts Active Allergies Reaction Severity Comments Date Sulfa nausea 05/13/2006 Penicillin itching 05/13/2006 Tetracycline itch 05/13/2006 Erythromycin nausea 05/13/2006 IVP Dye redness, couldn't walk on le g 10/20/2006 Carvedilol Symptomatic bradycardia syncope 07/13 Amlodipine excessive L/E edema 10/27/19 17 Hydralazine dizziness and weakness 12/12 Keflex 03/21/2019 Minoxidil anasarca 03/21/2019 Losartan 06/11/2020 Medications Active Medications SIG Qnty Indications Ordering Provide r Date Torsemide 100mg Tablets 1/2 by mouth twice a day Unknown 06/11/2020 Atorvastatin Calcium 40mg Tablets 1 by mouth every night at bedtime Unknown Clopidogrel Bisulfate 75mg Tablets 1 by mouth every day Unknown 06/11/2020 Diclofenac Sodium 1% Gel apply 2 grams to affected area as directed as needed every 6 hours daily Unknown 06/11/2020 Famotidine 20mg Tablets 1 by mouth every day at bedtime as needed Unknown 021 Tamsulosin HCL 0.4mg Capsules 2 by mouth every day Unknown 06/11/2020 Acetaminophen 325mg Tablets 2 every 6 hours as needed Unknown 06/11/2020 Magnesium Oxide 400mg Tablets 1 by mouth once a day Unknown 06/11/2020 Clonidine 0.2mg/24HR Patches Weekl y apply 1 patch transdermally once a week and remove per schedule Unknown 06/11/2020 Valsartan 160mg Tablets 1 by mouth daily at bedtime Matt Ibarra MD 021 Lactulose 10GM/15ML Solution drink 30 milliliters by mouth once daily as needed Unknow n 01/03/2019 Mylanta Maximum Strength [phone]/5ML Suspension as needed Unknown 01/03/2019 Calcitriol 0.25mcg Capsules 1 by mouth wednesday, wednesday, and wednesday Unknown Eliquis 2.5mg Tablets 1 by mouth twice a day Unknown 01/03/2019 Allopurinol 100mg Tablets 1 by mouth every day Unknown 01/03/2019 Mupirocin 2% Ointment apply as directed as needed Unknown 08/14/2018 Lidocaine 5% Patches 12 hours on and 12 hours off as needed Unknown 08/14/2018 Levothyroxine Sodium 88mcg Tablets 1 by mouth every day Unknown 06/13/2018 Polyethylene Glycol 3350 3350NF Po wder 17 g in 4-8 oz liquid daily as needed Unknown 07/28/2017 Nitrostat 0.4mg Tablets Sub 1 sl every 5min x3 as needed for chest pain 5bottles I25.10 Jason quick MD 07/13/2013 Xalatan 0.005% Solution 1 [facility]tt [facility] Unknown 07/16/2009 Colace 100mg Capsules 1 po bi d prn Joseph Wilson MD 02/21/2009 Multivitamins Tablets 1 PO D Joseph Carter MD 06/08/2007 Xanax 0.5mg Tablets 3 times a day as needed for anxiety Unknown History Medications Gabapentin 100mg Capsules 1 by mouth two times a day Matt Ibarra MD 021 - 06/11/2020 Pantoprazole Sodium 40mg Tablets D R 1 by mouth every day Matt Ibarra MD 021 - 06/11/2020 Immunizations Description No Information Available Vital Signs Date Vital Result Comment 07/26/2020 2:01pm Weight 153.00 lb Home Weight 145lb Height 74 inches 6'2" BMI (Body Mass Index) 19.6 kg/m2 BP Systolic Sitting 134 mmHg Ra, medium cuff BP Diastolic Sitting 70 mmHg Ra, medium cuff 06/12/2020 3:12pm Weight 159.00 lb Home Weight 150lb Height 74 inches 6'2" BMI (Body Mass Index) 20.4 kg/m2 Heart Rate 75 /min BP Systolic Sitting 128 mmHg Ra, medium cuff BP Diastolic Sitting 70 mmHg Ra, medium cuff Results Test Acquired Date Facility Test Result H/L Range Note CMP 10/22/2020 [facility] - not interfaced (315)- - Albumin Serum/Plasma 3.2 Alt - SGPT 21 Calcium Ser/Plasma Mass/Vol 8.8 Carbon Dioxide Ser/Plasm 28 Chloride Serum/Plasma 105 Alkaline Phosphatase 77 Potassium 4.4 Protein Total 6.3 Sodium 140 Ast - Sgot 11 BUN - Urea Nitrogen 80 Glucose 156 High 83-110 Creatinine For GFR 4.56 Laboratory test finding 10/22/2020 [facility] - not interf aced (315)- - Thyroid Stimulating Hormone 2.700 Free T4 1.05 CBC without Differential 10/22/2020 [facility] - not inter faced (315)- - White Blood Count 3.8 Low 5.0-10.0 Red Blood Count 3.25 Low 4.00-5.40 Platelets 135 Low 172-450 Hemoglobin 10.0 Hematocrit 31.0 Hemoglobin & Hematocrit 07/10/2020 [facility] Hemoglobin 11.0 Low 14.0-18.0 Hematocrit 35.0 Low 42.0-52.0 Laboratory test finding 07/10/2020 [facility] Potassium 3.9 3.5-5.1 Hemoglobin & Hematocrit 07/06/2020 [facility] Hemoglobin 10.7 Low 14.0-18.0 Hematocrit 32.9 Low 42.0-52.0 Laboratory test finding 07/06/2020 [facility] Potassium 3.8 3.5-5.1 Renal Profile 06/29/2020 [facility] Glucose -- Blood Urea Nitrogen 90 High Creatinine 5.72 High GFR (Calculated) -- Sodium 137 Potassium -- Chloride -- Carbon Dioxide 22 Calcium 9.6 Phosphorus -- Albumin -- Laboratory test finding 06/29/2020 [facility] Alkaline Phosphatase 110 Total Protein 6.6 Tibc/Iron/% Saturation 06/29/2020 [facility] Iron 51 Tibc 251 Tibc % Saturation 20 Laboratory test finding 06/29/2020 [facility] Ferritin 727 High 22-322 Parathyroid Hormone Intact 06/29/2020 [facility] Misc 586 High 16-80 Laboratory test finding 06/29/2020 [facility] Uric Acid 5.8 CBC without Differential 06/29/2020 [facility] White Blood Count 3.76 Low Red Blood Count 11.9 Platelets -- Hemoglobin 11.9 Hematocrit 36.4 CBC without Differential 06/03/2020 [facility] (315)- - White Blood Count 5.1 4.1-11.0 Red Blood Count 3.21 Low 4.60-6.10 Platelets 158 150-450 Hemoglobin 10.5 Low 13.5-18.0 Hematocrit 30.3 Low 41.0-53.0 Laboratory test finding 06/03/2020 [facility] (315)- - Magnesium Level 1.8 BMP 06/03/2020 [facility] (315)- - Calcium Ser/Plasma Mass/Vol 9.8 Sodium 139 Carbon Dioxide Ser/Plasm 26 Chloride Serum/Plasma 99 Potassium 3.5 Glucose 113 High 70-99 Blood Urea Nitrogen 79 High 7-24 Creatinine 5.21 High 0.80-1.30 G F R 11 Procedures Date Code Description Status 07/26/2020 75360 Office/Outpatient Established Mo d MDM 30-39 Min Completed 06/12/2020 41676 Office/Outpatient Established Lo w MDM 20-29 Min Completed 06/12/2020 84571 ECG 12-Lead Completed 05/01/2020 72509 Office/Outpatient Established Mo d MDM 30-39 Min Completed 05/01/2020 15747 ECG 12-Lead Completed Medical Devices Description No Information Available Encounters Type Date Location Provider Dx Diagnosis Office Visit 07/26/2020 2:00p Main Office GERARDO Amin 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 I48.21 Permanent atrial fibrillatio n I11.0 Hypertensive heart disease w ith heart failure I50.32 Chronic diastolic (congestiv e) heart failure Office Visit 06/12/2020 3:00p Main Office GERARDO Amin 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 I21.4 Non-St elevation (Nstemi) my ocardial infarction Office Visit 05/01/2020 2:30p Main Office GERARDO [...] surve illance Assessments Date Code Description Provider 07/26/2020 I25.10 Atherosclerotic heart disease of [place] coronary artery with GERARDO Amin 07/26/2020 I48.21 Permanent atrial fibrillation Ca G[place]ARDO [place] 07/26/2020 I11.0 Hypertensive heart disease with heart failure GERARDO Amin 07/26/2020 I50.32 Chronic diastolic (congestive) h eart failure GERARDO Amin 06/12/2020 I25.10 Atherosclerotic heart disease of [place] coronary artery with GERARDO Amin 06/12/2020 I21.4 Non-St elevation (Nstemi) myocar dial infarction GERARDO Amin 05/01/2020 Z01.810 Encounter for preprocedural card iovascular examination GERARDO Amin 05/01/2020 I25.10 Atherosclerotic heart disease of [place] coronary artery with GERARDO Amin 05/01/2020 I48.21 Permanent atrial fibrillation Ca GERARDO [place] 05/01/2020 I48.3 Typical atrial flutter GERARDO Amin 05/01/2020 I11.0 Hypertensive heart disease with heart failure GERARDO Amin 05/01/2020 I50.32 Chronic diastolic (congestive) h eart failure GERARDO Amin 05/01/2020 R94.31 Abnormal electrocardiogram [ECG] [EKG] GERARDO Amin 05/01/2020 Z71.3 Dietary counseling and surveilla nce GERARDO Amin Plan of Treatment Future Appointment(s):* 10/28/2020 1:00 pm - GERARDO Amin at Main Office 07/26/2020 - GERARDO Amin* I25.10 Atherosclerotic heart disease of [place] coronary artery with* Recommendations:* Continue atorvastatin, Eliquis, valsartan, and Plavix at the current dosages Please obtain labs Advised patient to contact our office with any chest pain, shortness of breath, new or concerning symptoms * I48.21 Permanent atrial fibrillation* Recommendations:* Continue Eliquis at the current dosage Patient agreeable to contact our office with any episodes of tachycardia or palpitations * I11.0 Hypertensive heart disease with heart failure* Recommendations:* Continue valsartan, clonidine, and torsemide at the current dosages Advised patient to monitor blood pressures at home and to alert our office with readings >140/>90 * I50.32 Chronic diastolic (congestive) heart failure* Recommendations:* Please alert our office with a weight gain of more than 3 pounds, onset of shortness of breath, or lower extremity edema * All * Follow up:* Follow up in 4 months Patient refused to push his follow-up out any further Functional Status Functional Condition Comment Date Status Independent with all ADL's Activ e Requires assistance with ambulating uses 4 wheel walke r with hand brakes and seat or cane Active Mental Status Description No Information Available Referrals Description No Information Available
--- OUTSIDE RECORDS SUMMARY | 2021-01-21 18:46 | CCD | Continuity of Care Document ---
Author Author Jose Antonio GAITAN RPA Organization Unknown Address [address] [place] [address] Phone [phone] Problems Active Problems Provider Date Hypothyroidism Onset: 12/06/2000 Chronic bronchitis [facility] Onset: 04/15 Type 2 diabetes mellitus [...] 6 hours as needed 100tabs Monique Miller, [facility] 06/14/2020 Valsartan 160mg Tablets 1 by mouth every day David Toledo D.O., [facility] 04/2020 Onetouch Delica Plus Lancets Extra Fine 33G Plus 33G Misc test 4X daily as directed. E11.9 360units David Toledo D.O., [facility] 03/22/2020 Onetouch Verio Strips for testing bs 4X daily dx:e11.9 360units David Toledo D.O., [facility] 0 03/22/2020 Ventolin HFA 108(90Base) mcg/Act A erosol ii puffs every 4-6 hours as needed 54gm David robert D.O., [facility] 08/14/2019 Cane/Adjustable/Aluminum/Round Handle Misc use to assist in ambulation dx: 274.9, m54.16, 724.4 1units David Toledo D.O., [facility] 09/14/2018 Prevnar 13 Suspension injection x 1 .500ml David Toledo D.O., [facility] 09/30/2017 Xanax 0.5mg Tablets 1 by mouth twice a day as needed (istop: [id number]) 60tabs Shelbi Miller, [facility] 07/29/2016 Lidoderm 5% Patches 2 top every day for 12 hours 180units David Toledo D.O., [facility] 02/2010 Magnesium Oxide 400mg Tablets 1 by [...] CPT Code Status Date Vaccine Lot # [id number] Given 12/28/2018 Pneumococcal Immunization S0 [id number] 99133 Given 12/30/2010 Influenza Vaccin e (Fluzone) 3Yrs Of Age Or Older Medicare Plans 87734 Given 12/30/2010 Pneumococcal Immunization 12 [id number] [id number] Given 12/30/2010 Influenza Virus Vac. Split Virus Individuals 3 Years And Above [id number] Given 10/22/2003 Pneumococcal Immunization Vital Signs Date Vital Result Comment 07/29/2020 1:34pm BP Systolic 130 mmHg BP Diastolic 80 mmHg Body Temperature 97.0 F Heart Rate 70 /min Respiratory Rate 16 /min Height 72 inches 6'0" Weight 156.00 lb [place] Body Weight 178 lb BMI (Body Mass Index) 21.2 kg/m2 O2 % BldC Oximetry 98 % 07/12/2020 2:20pm BP Systolic 158 mmHg BP Diastolic 88 mmHg Body Temperature 97.6 F Heart Rate 80 /min Respiratory Rate 14 /min Height 72 inches 6'0" Weight 163.00 lb [place] Body Weight 178 lb BMI (Body Mass Index) 22.1 kg/m2 O2 % BldC Oximetry 92 % Results Test Acquired Date Facility Test Result H/L Range Note Cardiac Marker Panel 10/22/2020 [facility] ( Interface) [phone] CPK Creatine Phosphokinase 43 U/L Normal 39-30 8 CK-MB Value Mass < 1.0 NG/ML Normal <3.6 MB/CK Relative Index 2.33 Normal < Or =4 1 Troponin I 0.10 NG/ML Normal < 0.10 2 Laboratory test finding 10/22/2020 [facility] (Interface) [phone] Bedside Glucose 146 mg/dL High 83-110 CBC With Differential 10/22/2020 [facility]) [phone] White Blood Count 3.8 10 Low 4.0-10.0 [...] 36.0-66.0 Lymph % 7.0 % Low 24.0-44.0 [place] % 6.8 % Normal 2.0-8.0 Eos % 2.6 % Normal 0.0-3.0 Baso % 0.5 % Normal 0.0-1.0 Immature Granulocyte % 0.3 % Normal 0-3.0 Nucleated Red Blood Cell % 0.0 % Normal 0-0 Neutrophils # 3.2 10 Normal 1.5-8.5 Lymph # 0.3 10 Low 1.5-5.0 [place] # 0.3 10 Normal 0.0-0.8 Eos # 0.1 10 Normal 0.0-0.5 Baso # 0.0 10 Normal 0.0-0.2 Cardiac Marker Panel 10/22/2020 [facility] ( [facility]) [phone] CPK Creatine Phosphokinase 36 U/L Low 39-30 8 CK-MB Value Mass 1.8 NG/ML Normal <3.6 MB/CK Relative Index 5.00 High < Or =4 3 Troponin I 0.11 NG/ML High < 0.10 4 Liver Profile 10/22/2020 [facility] (I [facility]terface) [phone] Ast/Sgot 11 U/L Normal 7-37 Alt/SGPT 21 U/L Normal 12-78 Alkaline Phosphatase 77 U/L Normal 45-117 Bilirubin,Total 0.6 mg/dL Normal 0.2-1.0 Bilirubin,Direct 0.2 mg/dL Normal 0.0-0.2 Total Protein 6.3 GM/DL Low 6.4-8.2 Albumin 3.2 GM/DL Normal 3.2-5.2 Albumin/Globulin Ratio 1.0 Normal Basic Metabolic Profile 10/22/2020 [facility] ([facility]) [phone] Glucose, Fasting 156 mg/dL High 70-100 Blood [...] mg/dL Normal 8.8-10.2 Laboratory test finding 10/22/2020 [facility] ([facility]) [phone] Lipase 117 U/L Normal 73-393 Thyroid Stimulating [...] eGFR 20 # Calc 7 eGFR Non-Afr. Bahamian 17 # Calc 8 CBC With Differential/Platelet [...] 0.0 x10E3/uL 0.0-0.1 NRBC TNP Hematology Comments: [facility] CBC With Differential 06/17/2020 [facility] ([facility]) [phone] White Blood Count 4.2 10 Normal 4.0-10.0 [...] 36.0-66.0 Lymph % 15.6 % Low 24.0-44.0 [place] % 12.7 % High 2.0-8.0 Eos % 2.2 % Normal 0.0-3.0 Baso % 0.7 % Normal 0.0-1.0 Immature Granulocyte % 0.5 % Normal 0-3.0 Nucleated Red Blood Cell % 0.0 % Normal 0-0 Neutrophils # 2.9 10 Normal 1.5-8.5 Lymph # 0.7 10 Low 1.5-5.0 [place] # 0.5 10 Normal 0.0-0.8 Eos # 0.1 10 Normal 0.0-0.5 Baso # 0.0 10 Normal 0.0-0.2 1 DIAGNOSIS CRITERIA MMB ng/ml Relative Index (RI) NON-AMI < or = 5 N/A L[address] ZONE > 5 < or = 4 AMI > 5 > 4 2 Troponin I Reference Interva l for Siemens [place] LOCI: 99th Percentile= 0.00-0.045 ng/ml Risk Stratification: [...] Troponin I Reference Interva l for Siemens [place] LOCI: 99th Percentile= 0.00-0.045 ng/ml Risk Stratification: [...] Little GFR Left ESRD GFR <15 on LIME FILTER OPERATOR 6 CHRONIC KIDNEY DISEASE STAGI NG PER [...] CKD-EPI Procedures Date Code Description Status 07/29/2020 35798 Office/Outpatient Established Lo w MDM 20-29 Min Completed 07/12/2020 70143 Office/Outpatient Established Mo d MDM 30-39 Min Completed 06/14/2020 94010 Office/Outpatient Established Mo d MDM 30-39 Min Completed Medical Devices Description No Information Available Encounters Type Date Location Provider Dx Diagnosis Office Visit 07/29/2020 1:30p [facility] Sebastian Gaitan, RP A K21.9 Gastro-esophageal reflux disease without esophagitis K29.70 Gastritis, unspecified, with out bleeding Z79.01 longterm (current) use of a nticoagulants K92.2 Gastrointestinal hemorrhage, unspecified Office Visit 07/12/2020 2:00p [facility] Marcos Palumbo M. D. L03.116 Cellulitis of left lower limb R05 Cough I10 Essential (primary) hyperten brittany Office Visit 06/14/2020 3:00p [facility] Sebastian Gaitan, RP A I22.2 Subsequent non-St elevation (Nstemi) myocardial infarction I48.20 Chronic atrial fibrillation, unspecified I80.02 Phlebitis and thombophlb of superfic vessels of l low extrem Assessments Date Code Description Provider 07/29/2020 K21.9 Gastro-esophageal reflux disease without esophagitis Sebastian Gaitan, RPA 07/29/2020 K29.70 Gastritis, unspecified, without bleeding Sebastian Gaitan, RPA 07/29/2020 Z79.01 longterm (current) use of antic oagulants Sebastian Gaitan, [...] Dr Reason for Referral Status Appt Date [facility] Dermatology recurrent cellulitis- eval and rx Sent [address] [place] [id number] [phone]
--- OUTSIDE RECORDS SUMMARY | 2021-01-21 18:46 | CCD | Continuity of Care Document ---
Author Organization Unknown Address Unknown Phone Unavailable Care Team Providers Care Corporate Operations Compliance Manager Name Role Phone Joseph Wilson MD AUTM [phone] Alvarez Johnson MD AUTM [phone] Sebastian Gaitan AUTM [phone] Matt Ibarra MD AUTM [phone] Dialysis (Neph[facility] AUTM [phone] Problems Active Problems Provider Date Benign hypertensive [...] needed Unknow n 01/03/2019 Mylanta Maximum Strength [id number]/5ML Suspension as needed Unknown 01/03/2019 Calcitriol 0.25mcg [...] 07/13/2013 Xalatan 0.005% Solution 1 [facility] Unknown 07/16/2009 Colace 100mg Capsules 1 po [...] Date Facility Test Result H/L Range Note [facility] 10/23/2020 [facility] - not interfaced (315)- - Albumin Serum/Plasma 3.1 Alt - SGPT 19 Calcium Ser/Plasma Mass/Vol 8.8 Carbon Dioxide Ser/Plasm 27 Chloride Serum/Plasma 106 Alkaline Phosphatase 68 Potassium 4.7 Protein Total 5.8 Sodium 140 Ast - Sgot 11 BUN - Urea Nitrogen 83 Glucose 118 High 83-110 Creatinine For GFR 4.78 CBC without Differential 10/23/2020 [facility] - not inter faced (315)- - White Blood Count 4.3 Low 5.0-10.0 Red Blood Count 3.28 Low 4.00-5.40 Platelets 133 Low 172-450 Hemoglobin 9.9 Hematocrit 31.3 CBC without Differential 10/22/2020 [facility] - not inter faced (315)- - White Blood Count 3.8 Low 5.0-10.0 Red Blood Count 3.25 Low 4.00-5.40 Platelets 135 Low 172-450 Hemoglobin 10.0 Hematocrit 31.0 [facility] 10/22/2020 [facility] - not interfaced (315)- - Albumin Serum/Plasma 3.2 Alt - SGPT 21 Calcium Ser/Plasma Mass/Vol 8.8 Carbon Dioxide Ser/Plasm 28 Chloride Serum/Plasma 105 Alkaline Phosphatase 77 Potassium 4.4 Protein Total 6.3 Sodium 140 Ast - Sgot 11 BUN - Urea Nitrogen 80 Glucose 156 High 83-110 Creatinine For GFR 4.56 Laboratory test finding 10/22/2020 [facility] - not interf aced (315)- - Thyroid Stimulating Hormone 2.700 Free T4 1.05 Hemoglobin & Hematocrit 07/10/2020 [facility] Hemoglobin 11.0 Low 14.0-18.0 Hematocrit 35.0 Low 42.0-52.0 Laboratory test finding 07/10/2020 [facility] Potassium 3.9 3.5-5.1 Hemoglobin & Hematocrit 07/06/2020 [facility] Hemoglobin 10.7 Low 14.0-18.0 Hematocrit 32.9 Low 42.0-52.0 Laboratory test finding 07/06/2020 [facility] Potassium 3.8 3.5-5.1 CBC without Differential 06/29/2020 [facility] White Blood Count 3.76 Low Red Blood Count 11.9 Platelets -- Hemoglobin 11.9 Hematocrit 36.4 Laboratory test finding 06/29/2020 [facility] Alkaline Phosphatase 110 Total Protein 6.6 Tibc/Iron/% Saturation 06/29/2020 [facility] Iron 51 Tibc 251 Tibc % Saturation 20 Laboratory test finding 06/29/2020 [facility] Ferritin 727 High 22-322 Parathyroid Hormone Intact 06/29/2020 [facility] Misc 586 High 16-80 Laboratory test finding 06/29/2020 [facility] Uric Acid 5.8 Renal Profile 06/29/2020 [facility] Glucose -- Blood Urea Nitrogen 90 High Creatinine 5.72 High GFR (Calculated) -- Sodium 137 Potassium -- Chloride -- Carbon Dioxide 22 Calcium 9.6 Phosphorus -- Albumin -- CBC without Differential 06/03/2020 [facility] (315)- - White Blood Count 5.1 [...] 11 Procedures Date Code Description Status 07/26/2020 63280 Office/Outpatient Established Mo d MDM 30-39 Min Completed 06/12/2020 70807 Office/Outpatient Established Lo w MDM 20-29 Min Completed 06/12/2020 90333 ECG 12-Lead Completed 05/01/2020 73128 Office/Outpatient Established Mo d MDM 30-39 Min Completed 05/01/2020 74258 ECG 12-Lead Completed Medical Devices Description No Information Available Encounters Type Date Location Provider Dx Diagnosis Office Visit 07/26/2020 2:00p Main Office GERARDO Amin 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 I48.21 Permanent atrial fibrillatio n I11.0 Hypertensive heart disease w ith heart failure I50.32 Chronic diastolic (congestiv e) heart failure Office Visit 06/12/2020 3:00p Main Office GERARDO Amin 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 I21.4 Non-St [...] Provider 07/26/2020 I25.10 Atherosclerotic heart disease of [place] coronary artery with GERARDO Amin 07/26/2020 I48.21 Permanent atrial fibrillation Ca G[place]O [place] 07/26/2020 I11.0 Hypertensive heart disease with heart failure GERARDO Amin 07/26/2020 I50.32 Chronic diastolic (congestive) h eart failure GERARDO Amin 06/12/2020 I25.10 Atherosclerotic heart disease of [place] coronary artery with GERARDO Amin 06/12/2020 I21.4 Non-St elevation (Nstemi) myocar dial infarction GERARDO Amin 05/01/2020 Z01.810 Encounter for preprocedural card iovascular examination GERARDO Amin 05/01/2020 I25.10 Atherosclerotic heart disease of [place] coronary artery with GERARDO Amin 05/01/2020 I48.21 [...] GERARDO Amin* I25.10 Atherosclerotic heart disease of [place] coronary artery with* Recommendations:* Continue atorvastatin, Eliquis, [...]
--- OUTSIDE RECORDS SUMMARY | 2021-01-21 18:46 | CCD | Continuity of Care Document ---
Author Organization Unknown Address Unknown Phone Unavailable Care Team Providers Care Inspector Precision [employer] Name Role Phone Joseph Wilson MD AUTM [phone] Alvarez Johnson MD AUTM [phone] Sebastian Gaitan AUTM [phone] Matt Ibarra MD AUTM [phone] Dialysis (Nephrolo AUTM [phone] Problems Active Problems Provider Date Benign hypertensive heart disease with congestive card iac failure Jason Johnson MD Onset: 05/19/2011 Chronic diastolic heart failure Jason Johnson MD Onset: 05/19/2011 Benign essential hypertension Jason Johnson MD Onset: Coronary arteriosclerosis Jason Johnson MD Onset: 2011 Old myocardial infarction Jason Johnson MD Onset: 2011 Patient post percutaneous transluminal coronary angiop lasty Jasno Johnson MD Onset: 11/17/2011 Aortocoronary Bypass Postsurgical [...] Exercise Type/Frequency Does housework twice a w [place] Exercise Limitations Back Pain Exercise Limitations Joint Pain Exercise Limitations Fatigue Allergies, Adverse Reactions, Alerts Active Allergies Criticality Reaction | Severity Comments Date Sulfa Unable to assess criticality nausea 05/13/2006 Penicillin Unable to assess criticality itching 05/13/2006 Tetracycline Unable to assess criticality itch 05/13/2006 Erythromycin Unable to assess criticality nausea 05/13/2006 IVP Dye Unable to assess criticality redness, cou ldn't walk on leg 10/20/2006 Carvedilol Unable to assess criticality Symptomatic bradycardia s yncope 07/23/2016 Amlodipine Unable to assess criticality excessive L/ E edema 10/26/2016 Hydralazine Unable to assess criticality dizziness an d weakness 12/12/2017 Keflex Unable to assess criticality 03/21/2019 Minoxidil Unable to assess criticality anasarca 03/21/2019 Losartan Unable to assess criticality 06/11/2020 Medications Active Medications SIG Qnty Indications Ordering Provide r Date Torsemide 100mg Tablets /2 by mouth twice a day Unknown 06/11/2020 [...] daily at bedtime Matt Ibarra MD 021 Calcitriol 0.25mcg Capsules 1 by mouth wednesday, wednesday, and wednesday Unknown Mylanta Maximum Strength 157-402-23km/5ML Suspension as needed Unknown 01/03/2019 Lactulose 10GM/15ML Solution drink 30 milliliters by mouth once daily as needed Unknow n 01/03/2019 Eliquis 2.5mg Tablets 1 by mouth [...] 07/13/2013 Xalatan 0.005% Solution 1 gtt o.u. qhs Unknown 07/16/2009 Colace 100mg Capsules 1 po bi d prn Joseph Wislon MD 02/21/2009 Multivitamins Tablets 1 PO D Joseph Carter MD 06/08/2007 Xanax 0.5mg Tablets 3 times a day as needed for anxiety Unknown Immunizations Description No Information Available Vital [...] Facility Test Result H/L Range Note CMP 10/29/2020 [facility] - not interfaced (315)- - Albumin Serum/Plasma 3.0 Alt - SGPT 18 Calcium Ser/Plasma Mass/Vol 8.4 Carbon Dioxide Ser/Plasm 8.4 Chloride Serum/Plasma 105 Alkaline Phosphatase 97 Potassium 4.6 Protein Total 5.9 Sodium 138 Ast - Sgot 11 BUN - Urea Nitrogen 68 Glucose 179 High 70-100 Creatinine For GFR 5.45 Laboratory test finding 10/29/2020 [facility] - not interf aced (315)- - Magnesium Level 1.8 1.8-2.4 CBC without Differential 10/29/2020 [facility] - not inter faced (315)- - White Blood Count 3.7 Low 4.0-10.0 Red Blood Count 3.36 Low 4.30-6.10 Platelets 174 150-450 Hemoglobin 10.2 Low 13.5-17.5 Hematocrit 31.8 Low 42.0-52.0 CBC without Differential 10/25/2020 [facility] (315)- - White Blood Count 3.3 Low 4.0-10.0 Red Blood Count 3.36 Low 4.30-6.10 Platelets 142 Low 150-450 Hemoglobin 10.2 Low 13.5-17.5 Hematocrit 32.2 Low 42.0-52.0 CMP 10/25/2020 [facility] (315)- - Albumin Serum/Plasma 3.1 Alt - SGPT 21 Calcium Ser/Plasma Mass/Vol 9.2 Carbon Dioxide Ser/Plasm 26 Chloride Serum/Plasma 107 Alkaline Phosphatase 95 Potassium 4.4 Protein Total 6.6 Sodium 140 Ast - Sgot 11 BUN - Urea Nitrogen 29 Glucose 183 High 70-100 Creatinine For GFR 3.06 Laboratory test finding 10/25/2020 [facility] (315)- - Magnesium Level 1.9 CBC without Differential 10/23/2020 [facility] - not inter faced (315)- - White Blood Count 4.3 Low 5.0-10.0 Red Blood Count 3.28 Low 4.00-5.40 Platelets 133 Low 172-450 Hemoglobin 9.9 Hematocrit 31.3 CMP 10/23/2020 [facility] - not interfaced (315)- - Albumin Serum/Plasma 3.1 Alt - SGPT 19 Calcium Ser/Plasma Mass/Vol 8.8 Carbon Dioxide Ser/Plasm 27 Chloride Serum/Plasma 106 Alkaline Phosphatase 68 Potassium 4.7 Protein Total 5.8 Sodium 140 Ast - Sgot 11 BUN - Urea Nitrogen 83 Glucose 118 High 83-110 Creatinine For GFR 4.78 CBC without Differential 10/22/2020 [facility] - not inter faced (315)- - White Blood Count 3.8 Low 5.0-10.0 Red Blood Count 3.25 Low 4.00-5.40 Platelets 135 Low 172-450 Hemoglobin 10.0 Hematocrit 31.0 CMP 10/22/2020 [facility] - not interfaced (315)- - Albumin Serum/Plasma 3.2 Alt - SGPT 21 Calcium Ser/Plasma Mass/Vol 8.8 Carbon Dioxide Ser/Plasm 28 Chloride Serum/Plasma 105 Alkaline Phosphatase 77 Potassium 4.4 Protein Total 6.3 Sodium 140 Ast - Sgot 11 BUN - Urea Nitrogen 80 Glucose 156 High 83-110 Creatinine For GFR 4.56 Laboratory test finding 10/22/2020 [facility] - not interf aced (315)- - Thyroid Stimulating Hormone 2.700 Free T4 1.05 Laboratory test finding 07/10/2020 [facility] Potassium 3.9 3.5-5.1 Hemoglobin & Hematocrit 07/10/2020 [facility] Hemoglobin 11.0 Low 14.0-18.0 Hematocrit 35.0 Low 42.0-52.0 Hemoglobin & Hematocrit 07/06/2020 [facility] Hemoglobin 10.7 Low 14.0-18.0 Hematocrit 32.9 Low 42.0-52.0 Laboratory test finding 07/06/2020 [facility] Potassium 3.8 3.5-5.1 CBC without Differential 06/29/2020 [facility] White Blood Count 3.76 Low Red Blood Count 11.9 Platelets -- Hemoglobin 11.9 Hematocrit 36.4 Renal Profile 06/29/2020 [facility] Glucose -- Blood Urea Nitrogen 90 High Creatinine 5.72 High GFR (Calculated) -- Sodium 137 Potassium -- Chloride -- Carbon Dioxide 22 Calcium 9.6 Phosphorus -- Albumin -- Laboratory test finding 06/29/2020 [facility] Uric Acid 5.8 Parathyroid Hormone Intact 06/29/2020 [facility] Misc 586 High 16-80 Laboratory test finding 06/29/2020 [facility] Ferritin 727 High 22-322 Tibc/Iron/% Saturation 06/29/2020 [facility] Iron 51 Tibc 251 Tibc % Saturation 20 Laboratory test finding 06/29/2020 [facility] Alkaline Phosphatase 110 Total Protein 6.6 CBC without Differential 06/03/2020 [facility] [...] 11 Procedures Date Code Description Status 07/26/2020 14088 Office/Outpatient Established Mo d MDM 30-39 Min Completed 06/12/2020 92040 Office/Outpatient Established Lo w MDM 20-29 Min Completed 06/12/2020 50015 ECG 12-Lead Completed Medical Devices Description No Information Available Encounters Type Date Location Provider Dx Diagnosis Office Visit 07/26/2020 2:00p Main Office GERARDO Amin I25 .10 Athscl heart disease of [place] coronary artery w/o ang pctrs I48.21 Permanent atrial fibrillatio n I11.0 Hypertensive heart disease w ith heart failure I50.32 Chronic diastolic (congestiv e) heart failure Office Visit 06/12/2020 3:00p Main Office GERARDO Amin I25 .10 Athscl heart disease of [place] coronary artery w/o ang pctrs I21.4 Non-St elevation (Nstemi) my ocardial infarction Assessments Date Code Description Provider 07/26/2020 I25.10 Atherosclerotic heart disease of [place] coronary artery with GERARDO Amin 07/26/2020 I48.21 Permanent atrial fibrillation [place] 07/26/2020 I11.0 Hypertensive heart disease with heart failure GERARDO Amin 07/26/2020 I50.32 Chronic diastolic (congestive) h eart failure GERARDO Amin 06/12/2020 I25.10 Atherosclerotic heart disease of [place] coronary artery with GERARDO Amin 06/12/2020 I21.4 Non-St elevation (Nstemi) myocar dial infarction GERARDO Amin Plan of Treatment 07/26/2020 - GERARDO Amin* I25.10 Atherosclerotic heart disease of [place] coronary artery with* Recommendations:* Continue atorvastatin, Eliquis, [...]
--- OUTSIDE RECORDS SUMMARY | 2021-01-21 18:46 | CCD | Continuity of Care Document ---
Author Author Jose Antonio GAITAN RPA Organization Unknown Address [address] [facility] [place] [address] [place] [address] Phone [phone] Problems Active Problems Provider Date Hypothyroidism Onset: 12/06/2000 Chronic bronchitis [facility] On[facility]: 04/15 Type 2 diabetes mellitus [...] 6 hours as needed 100tabs Monique Miller, [facility] 06/14/2020 Valsartan 160mg Tablets 1 by mouth every day David Toledo D.O., [facility] 04/2020 Onetouch Delica Plus Lancets [...] 274.9, m54.16, 724.4 1units David Toledo D.O., [facility] 09/14/2018 Prevnar 13 Suspension injection x 1 .500ml David Toledo D.O., [facility] 09/30/2017 Xanax 0.5mg Tablets 1 by mouth twice a day as needed (istop: [id number]) 60tabs Shelbi Miller, [facility] 07/29/2016 Lidoderm 5% Patches 2 top every day for 12 hours 180units David Toledo D.O., [facility] 02/2010 Magnesium Oxide 400mg Tablets [...] CPT Code Status Date Vaccine Lot # [id number] Given 12/28/2018 Pneumococcal Immunization S0 31402 59220 Given 12/30/2010 Influenza Vaccin e (Fluzone) 3Yrs Of Age Or Older Medicare Plans 01866 Given 12/30/2010 Pneumococcal Immunization 12 [id number] 42517 Given 12/30/2010 Influenza Virus Vac. Split Virus Individuals 3 Years And Above [id number] Given 10/22/2003 Pneumococcal Immunization Vital Signs Date Vital Result Comment 07/29/2020 1:34pm BP Systolic 130 mmHg BP Diastolic 80 mmHg Body Temperature 97.0 F Heart Rate 70 /min Respiratory Rate 16 /min Height 72 inches 6'0" Weight 156.00 lb [place] Body Weight 178 lb BMI (Body Mass Index) 21.2 kg/m2 O2 % BldC Oximetry 98 % 07/12/2020 2:20pm BP Systolic 158 mmHg BP Diastolic 88 mmHg Body Temperature 97.6 F Heart Rate 80 /min Respiratory Rate 14 /min Height 72 inches 6'0" Weight 163.00 lb [place] Body Weight 178 lb BMI (Body Mass Index) 22.1 kg/m2 O2 % BldC Oximetry 92 % Results Test Acquired Date Facility Test Result H/L Range Note Cardiac Marker Panel 10/22/2020 [facility] ( Interface) [phone] CPK Creatine Phosphokinase 43 U/L Normal 39-30 8 CK-MB Value Mass < 1.0 NG/ML Normal <3.6 MB/CK Relative Index 2.33 Normal < Or =4 1 Troponin I 0.10 NG/ML Normal < 0.10 2 Laboratory test finding 10/22/2020 [facility] (Interface) [phone] Bedside Glucose 146 mg/dL High 83-110 CBC With Differential 10/22/2020 [facility]) [phone] White Blood Count 3.8 10 Low 4.0-10.0 [...] 36.0-66.0 Lymph % 7.0 % Low 24.0-44.0 [place] % 6.8 % Normal 2.0-8.0 Eos % 2.6 % Normal 0.0-3.0 Baso % 0.5 % Normal 0.0-1.0 Immature Granulocyte % 0.3 % Normal 0-3.0 Nucleated Red Blood Cell % 0.0 % Normal 0-0 Neutrophils # 3.2 10 Normal 1.5-8.5 Lymph # 0.3 10 Low 1.5-5.0 [place] # 0.3 10 Normal 0.0-0.8 Eos # 0.1 10 Normal 0.0-0.5 Baso # 0.0 10 Normal 0.0-0.2 Cardiac Marker Panel 10/22/2020 [facility] ( [facility]) [phone] CPK Creatine Phosphokinase 36 U/L Low 39-30 8 CK-MB Value Mass 1.8 NG/ML Normal <3.6 MB/CK Relative Index 5.00 High < Or =4 3 Troponin I 0.11 NG/ML High < 0.10 4 Liver Profile 10/22/2020 [facility] (I nterface) [phone] Ast/Sgot 11 U/L Normal 7-37 Alt/SGPT 21 U/L Normal 12-78 Alkaline Phosphatase 77 U/L Normal 45-117 Bilirubin,Total 0.6 mg/dL Normal 0.2-1.0 Bilirubin,Direct 0.2 mg/dL Normal 0.0-0.2 Total Protein 6.3 GM/DL Low 6.4-8.2 Albumin 3.2 GM/DL Normal 3.2-5.2 Albumin/Globulin Ratio 1.0 Normal Basic Metabolic Profile 10/22/2020 [facility] (Interface[facility] [phone] Glucose, Fasting 156 mg/dL High 70-100 Blood [...] mg/dL Normal 8.8-10.2 Laboratory test finding 10/22/2020 [facility] [phone] Lipase 117 U/L Normal 73-393 Thyroid Stimulating [...] eGFR 20 # Calc 7 eGFR Non-Afr. [place] 17 # Calc 8 CBC With Differential/Platelet [...] 0.0 x10E3/uL 0.0-0.1 NRBC TNP Hematology Comments: [facility] CBC With Differential 06/17/2020 [facility] ([facility]) [phone] White Blood Count 4.2 10 Normal 4.0-10.0 [...] 36.0-66.0 Lymph % 15.6 % Low 24.0-44.0 [place] % 12.7 % High 2.0-8.0 Eos % 2.2 % Normal 0.0-3.0 Baso % 0.7 % Normal 0.0-1.0 Immature Granulocyte % 0.5 % Normal 0-3.0 Nucleated Red Blood Cell % 0.0 % Normal 0-0 Neutrophils # 2.9 10 Normal 1.5-8.5 Lymph # 0.7 10 Low 1.5-5.0 [place] # 0.5 10 Normal 0.0-0.8 Eos # 0.1 10 Normal 0.0-0.5 Baso # 0.0 10 Normal 0.0-0.2 1 DIAGNOSIS CRITERIA MMB ng/ml Relative Index (RI) NON-AMI < or = 5 N/A [address] ZONE > 5 < or = 4 AMI > 5 > 4 2 Troponin I Reference Interva l for Siemens Coleman LOCI: 99th Percentile= 0.00-0.045 ng/ml Risk Stratification: [...] Troponin I Reference Interva l for Siemens Coleman LOCI: 99th Percentile= 0.00-0.045 ng/ml Risk Stratification: [...] Little GFR Left ESRD GFR <15 on ELECTRICAL SIGN WIRER HELPER 6 CHRONIC KIDNEY DISEASE STAGI NG PER [...] CKD-EPI Procedures Date Code Description Status 07/29/2020 54562 Office/Outpatient Established Lo w MDM 20-29 Min Completed 07/12/2020 92468 Office/Outpatient Established Mo d MDM 30-39 Min Completed 06/14/2020 35327 Office/Outpatient Established Mo d MDM 30-39 Min Completed Medical Devices Description No Information Available Encounters Type Date Location Provider Dx Diagnosis Office Visit 07/29/2020 1:30p [place] [facility] Sebastian Gaitan, RP A K21.9 Gastro-esophageal reflux disease without esophagitis K29.70 Gastritis, unspecified, with out bleeding Z79.01 FPC (current) use of a nticoagulants K92.2 Gastrointestinal hemorrhage, unspecified Office Visit 07/12/2020 2:00p [place] [facility] Marcos Palumbo M. D. L03.116 Cellulitis of left lower limb R05 Cough I10 Essential (primary) hyperten brittany Office Visit 06/14/2020 3:00p [place] [facility] Sebastian Gaitan, RP A I22.2 Subsequent non-St elevation (Nstemi) myocardial infarction I48.20 Chronic atrial fibrillation, unspecified I80.02 Phlebitis and thombophlb of superfic vessels of l low extrem Assessments Date Code Description Provider 07/29/2020 K21.9 Gastro-esophageal reflux disease without esophagitis Sebastian Gaitan, RPA 07/29/2020 K29.70 Gastritis, unspecified, without bleeding Sebastian Gaitan, RPA 07/29/2020 Z79.01 FPC (current) use of antic oagulants Sebastian Gaitan, [...] Dr Reason for Referral Status Appt Date [facility] Dermatology recurrent cellulitis- eval and rx Sent [address] [place] [address] [phone]
--- OUTSIDE RECORDS SUMMARY | 2021-01-21 18:46 | CCD | Continuity of Care Document ---
Author Organization Unknown Address Unknown Phone Unavailable Care Team Providers Care Evp General Counsel Name Role Phone Joseph Wilson MD AUTM [phone] Alvarez Johnson MD AUTM [phone] Sebastian Gaitan AUTM [phone] Matt Ibarra MD AUTM [phone] Dialysis (Nephrolo AUTM [phone] Problems Active Problems Provider Date Benign hypertensive [...] Jason Johnson MD Onset: 07/20/2012 Pure hypercholesterolemia Jaosn Johnson MD Onset: 2013 Precordial pain Jason [...] GERARDO [place] Onset: 03/22/2019 Permanent atrial fibrillation GERRADO [place] Onset: Permanent atrial fibrillation GERARDO Amin [...] Exercise Type/Frequency Does housework twice a w [place] Exercise Limitations Back Pain Exercise Limitations Joint [...] wednesday, and wednesday Unknown Mylanta Maximum Strength [phone]/5ML Suspension as needed Unknown 01/03/2019 Lactulose 10GM/15ML [...] Facility Test Result H/L Range Note CMP 10/25/2020 [facility] (315)- - Albumin [...] - Magnesium Level 1.9 CBC without Differential 10/25/2020 [facility] (315)- - White Blood Count 3.3 Low 4.0-10.0 Red Blood Count 3.36 Low 4.30-6.10 Platelets 142 Low 150-450 Hemoglobin 10.2 Low 13.5-17.5 Hematocrit 32.2 Low 42.0-52.0 CBC without Differential 10/23/2020 [facility] - not inter faced (315)- - White Blood Count 4.3 Low 5.0-10.0 Red Blood Count 3.28 Low 4.00-5.40 Platelets 133 Low 172-450 Hemoglobin 9.9 Hematocrit 31.3 CMP 10/23/2020 [facility] - not interfaced (315)- - Albumin Serum/Plasma 3.1 Alt - SGPT 19 Calcium Ser/Plasma Mass/Vol 8.8 Carbon Dioxide Ser/Plasm 27 Chloride Serum/Plasma 106 Alkaline Phosphatase 68 Potassium 4.7 Protein Total 5.8 Sodium 140 Ast - Sgot 11 BUN - Urea Nitrogen 83 Glucose 118 High 83-110 Creatinine For GFR 4.78 CBC without Differential 10/22/2020 [facility] - not inter faced (315)- - White Blood Count 3.8 Low 5.0-10.0 Red Blood Count 3.25 Low 4.00-5.40 Platelets 135 Low 172-450 Hemoglobin 10.0 Hematocrit 31.0 CMP 10/22/2020 [facility] - not interfaced (315)- - Albumin Serum/Plasma 3.2 Alt - SGPT 21 Calcium Ser/Plasma Mass/Vol 8.8 Carbon Dioxide Ser/Plasm 28 Chloride Serum/Plasma 105 Alkaline Phosphatase 77 Potassium 4.4 Protein Total 6.3 Sodium 140 Ast - Sgot 11 BUN - Urea Nitrogen 80 Glucose 156 High 83-110 Creatinine For GFR 4.56 Laboratory test finding 10/22/2020 [facility] - not interf aced (315)- - Thyroid Stimulating Hormone 2.700 Free T4 1.05 Hemoglobin & Hematocrit 07/10/2020 [facility] Hemoglobin 11.0 Low 14.0-18.0 Hematocrit 35.0 Low 42.0-52.0 Laboratory test finding 07/10/2020 [facility] Potassium 3.9 3.5-5.1 Laboratory test finding 07/06/2020 [facility] Potassium 3.8 3.5-5.1 Hemoglobin & Hematocrit 07/06/2020 [facility] Hemoglobin 10.7 Low 14.0-18.0 Hematocrit 32.9 Low 42.0-52.0 CBC without Differential 06/29/2020 [facility] [...] 11 Procedures Date Code Description Status 07/26/2020 00612 Office/Outpatient Established Mo d MDM 30-39 Min Completed 06/12/2020 17528 Office/Outpatient Established Lo w MDM 20-29 Min Completed 06/12/2020 99758 ECG 12-Lead Completed Medical Devices Description No Information Available Encounters Type Date Location Provider Dx Diagnosis Office Visit 07/26/2020 2:00p Main Office GERARDO Amin I25 .10 Athscl heart disease of [place] coronary artery w/o ang pctrs I48.21 Permanent atrial fibrillatio n I11.0 Hypertensive heart disease w ith heart failure I50.32 Chronic diastolic (congestiv e) heart failure Office Visit 06/12/2020 3:00p Main Office GERARDO Amin I25 .10 Athscl heart disease of [place] coronary artery w/o ang pctrs I21.4 Non-St elevation (Nstemi) my ocardial infarction Assessments Date Code Description Provider 07/26/2020 I25.10 Atherosclerotic heart disease of [place] coronary artery with GERARDO Amin 07/26/2020 I48.21 Permanent atrial fibrillation Ca G[place] 07/26/2020 I11.0 Hypertensive heart disease with heart failure EGRARDO Amin 07/26/2020 I50.32 Chronic diastolic (congestive) h eart failure GERARDO Amin 06/12/2020 I25.10 Atherosclerotic heart disease of [place] coronary artery with GERARDO Amin 06/12/2020 I21.4 Non-St elevation (Nstemi) myocar dial infarction GERARDO Amin Plan of Treatment 07/26/2020 - GERARDO Amin* I25.10 Atherosclerotic heart disease of [place] coronary artery with* Recommendations:* Continue atorvastatin, Eliquis, [...]
--- OUTSIDE RECORDS SUMMARY | 2021-01-21 18:50 | CCD ---
Author Author [facility] Organization [facility] Address Unknown Phone Unavailable Care Team Providers Care General Machine Operator Name Role Phone TONG CARTAGENA MD Unavailable Unavailable TONG CARTAGENA MD Unavailable Unavailable TONG CARTAGENA MD Unavailable Unavailable TONG CARTAGENA MD Unavailable Unavailable TONG CARTAGENA MD Unavailable Unavailable TONG CARTAGENA MD Unavailable Unavailable TONG CARTAGENA MD Unavailable Unavailable TONG CARTAGENA MD Unavailable Unavailable TONG CARTAGENA MD Unavailable Unavailable TONG CARTAGENA MD Unavailable Unavailable TONG CARTAGENA MD Unavailable Unavailable TONG CARTAGENA MD Unavailable Unavailable TONG CARTAGENA MD Unavailable Unavailable TONG CARTAGENA MD Unavailable Unavailable TONG CARTAGENA MD Unavailable Unavailable TONG CARTAGENA MD Unavailable Unavailable TONG CARTAGENA MD Unavailable Unavailable TONG CARTAGENA MD Unavailable Unavailable TONG CARTAGENA MD Unavailable Unavailable TONG CARTAGENA MD Unavailable Unavailable TONG CARTAGENA MD Unavailable Unavailable TONG CARTAGENA MD Unavailable Unavailable TONG CARTAGENA MD Unavailable Unavailable TONG CARTAGENA MD Unavailable Unavailable TONG CARTAGENA MD Unavailable Unavailable TONG CARTAGENA MD Unavailable Unavailable TONG CARTAGENA MD Unavailable Unavailable TONG CARTAGENA MD Unavailable Unavailable TONG CARTAGENA MD Unavailable Unavailable TONG CARTAGENA MD Unavailable Unavailable TONG CARTAGENA MD Unavailable Unavailable TONG CARTAGENA MD Unavailable Unavailable TONG CARTAGENA MD Unavailable Unavailable TONG CARTAGENA MD Unavailable Unavailable TONG CARTAGENA MD Unavailable Unavailable TONG CARTAGENA MD Unavailable Unavailable TONG CARTAGENA MD Unavailable Unavailable TONG CARTAGENA MD Unavailable Unavailable TONG CARTAGENA MD Unavailable Unavailable TONG CARTAGENA MD Unavailable Unavailable TONG CARTAGENA MD Unavailable Unavailable TONG CARTAGENA MD Unavailable Unavailable TONG CARTAGENA MD Unavailable Unavailable TONG CARTAGENA MD Unavailable Unavailable TONG CARTAGENA MD Unavailable Unavailable TONG CARTAGENA MD Unavailable Unavailable TONG CARTAGENA MD Unavailable Unavailable TONG CARTAGENA MD Unavailable Unavailable TONG CARTAGENA MD Unavailable Unavailable TONG CARTAGENA MD Unavailable Unavailable TONG CARTAGENA MD Unavailable Unavailable TONG CARTAGENA MD Unavailable Unavailable TONG CARTAGENA MD Unavailable Unavailable TONG CARTAGENA MD Unavailable Unavailable TONG CARTAGENA MD Unavailable Unavailable TONG CARTAGENA MD Unavailable Unavailable TONG CARTAGENA MD Unavailable Unavailable TONG CARTAGENA MD Unavailable Unavailable TONG CARTAGENA MD Unavailable Unavailable TONG CARTAGENA MD Unavailable Unavailable TONG CARTAGENA MD Unavailable Unavailable TONG CARTAGENA MD Unavailable Unavailable TONG CARTAGENA MD Unavailable Unavailable TONG CARTAGENA MD Unavailable Unavailable TONG CARTAGENA MD Unavailable Unavailable TONG CARTAGENA MD Unavailable Unavailable TONG CARTAGENA MD Unavailable Unavailable TONG CARTAGENA MD Unavailable Unavailable TONG CARTAGENA MD Unavailable Unavailable TONG CARTAGENA MD Unavailable Unavailable TONG CARTAGENA MD Unavailable Unavailable Aubrey CASTELLANOS MD Unavailable Unavailable Aubrey CASTELLANOS MD Unavailable Unavailable Aubrey CASTELLANOS MD Unavailable Unavailable Aubrey CASTELLANOS MD Unavailable Unavailable Aubrey CASTELLANOS MD Unavailable Unavailable Aubrey CASTELLANOS MD Unavailable Unavailable Aubrey CASTELLANOS MD Unavailable Unavailable Aubrey CASTELLANOS MD Unavailable Unavailable Aubrey CASTELLANOS MD Unavailable Unavailable Aubrey CASTELLANOS MD Unavailable Unavailable Aubrey CASTELLANOS MD Unavailable Unavailable Aubrey CASTELLANOS MD Unavailable Unavailable Aubrey CASTELLANOS MD Unavailable Unavailable Aubrey CASTELLANOS MD Unavailable Unavailable Aubrey CASTELLANOS MD Unavailable Unavailable Aubrey CASTELLANOS MD Unavailable Unavailable Aubrey CASTELLANOS MD Unavailable Unavailable Aubrey CASTELLANOS MD Unavailable Unavailable Aubrey CASTELLANOS MD Unavailable Unavailable Aubrey CASTELLANOS MD Unavailable Unavailable Aubrey CASTELLANOS MD Unavailable Unavailable Aubrey CASTELLANOS MD Unavailable Unavailable Aubrey CASTELLANOS MD Unavailable Unavailable Aubrey CASTELLANOS MD Unavailable Unavailable Aubrey CASTELLANOS MD Unavailable Unavailable Aubrey CASTELLANOS MD Unavailable Unavailable Aubrey CASTELLANOS MD Unavailable Unavailable Aubrey CASTELLANOS MD Unavailable Unavailable Aubrey CASTELLANOS MD Unavailable Unavailable Aubrey CASTELLANOS MD Unavailable Unavailable Aubrey CASTELLANOS MD Unavailable Unavailable Aubrey CASTELLANOS MD Unavailable Unavailable JASMIN H FREDA OSBORNE Unavailable Unavailable JASMIN H FREDA MD Unavailable Unavailable JASMIN, H FREDA MD Unavailable Unavailable JASMIN H FREDA MD Unavailable Unavailable JASMIN H FREDA MD Unavailable Unavailable JASMIN H FREDA MD Unavailable Unavailable JASMIN H FREDA MD Unavailable Unavailable JASMIN, H FREDA MD Unavailable Unavailable JASMIN, H FREDA MD Unavailable Unavailable JASMIN H FREDA MD Unavailable Unavailable JASMIN, H FREDA MD Unavailable Unavailable JASMIN, H FREDA MD Unavailable Unavailable JASMIN, H FREDA MD Unavailable Unavailable JASMIN, H FREDA MD Unavailable Unavailable JASMIN, H FREDA MD Unavailable Unavailable JASMIN H FREDA MD Unavailable Unavailable JASMIN, H FREDA MD Unavailable Unavailable JASMIN, H FREDA MD Unavailable Unavailable JASMIN H FREDA MD Unavailable Unavailable JASMIN, H FREDA MD Unavailable Unavailable JASMIN, H FREDA MD Unavailable Unavailable JASMIN, H FREDA MD Unavailable Unavailable JASMIN, H FREDA MD Unavailable Unavailable JASMIN H FREDA MD Unavailable Unavailable JASMIN H FREDA MD Unavailable Unavailable JASMIN H FREDA MD Unavailable Unavailable JASMIN H FREDA MD Unavailable Unavailable JASMIN H FREDA MD Unavailable Unavailable JASMIN H FREDA MD Unavailable Unavailable JASMIN H FREDA MD Unavailable Unavailable JASMIN H FREDA MD Unavailable Unavailable JASMIN H FREDA MD Unavailable Unavailable JASMIN H FREDA MD Unavailable Unavailable JASMIN H FREDA MD Unavailable Unavailable JASMIN H FREDA MD Unavailable Unavailable JASMIN H FREDA OSBORNE Unavailable Unavailable JASMIN H FREDA MD Unavailable Unavailable JASMIN H FREDA MD Unavailable Unavailable JASMIN H FREDA OSBORNE Unavailable Unavailable JASMIN H FREDA OSBORNE Unavailable Unavailable JASMIN H FREDA OSBORNE Unavailable Unavailable JASMIN H FREDA OSB[place]NE Unavailable Unavailable JASMIN H FREDA MD Unavailable Unavailable JASMIN H FREDA OSBORNE Unavailable Unavailable Berry DANG MD Unavailable Unavailable Berry DANG MD Unavailable Unavailable Berry DANG MD Unavailable Unavailable Berry DANG MD Unavailable Unavailable Berry DANG MD Unavailable Unavailable Berry DANG MD Unavailable Unavailable Berry DANG MD Unavailable Unavailable Berry DANG MD Unavailable Unavailable Berry DANG MD Unavailable Unavailable Berry DANG MD Unavailable Unavailable Berry DANG MD Unavailable Unavailable Berry DANG MD Unavailable Unavailable Berry DANG MD Unavailable Unavailable Berry DANG MD Unavailable Unavailable Berry DANG MD Unavailable Unavailable Berry DANG MD Unavailable Unavailable Berry DANG MD Unavailable Unavailable Berry DANG MD Unavailable Unavailable Berry DANG MD Unavailable Unavailable DANG, Berry NUNEZ MD Unavailable Unavailable DANG, E ENRIQUE OSBORNE Unavailable Unavailable DANG, E ENRIQUE OSBORNE Unavailable Unavailable DANG, E ENRIQUE OSBORNE Unavailable Unavailable DANG, E ENRIQUE OSBORNE Unavailable Unavailable DANG, E ENRIQUE OSBORNE Unavailable Unavailable DANG, E ENRIQUE OSBORNE Unavailable Unavailable DANG, E ENRIQUE OSBORNE Unavailable Unavailable DANG, E ENRIQUE OSBORNE Unavailable Unavailable DANG, E ENRIQUE OSBORNE Unavailable Unavailable DANG, E ENRIQUE OSBORNE Unavailable Unavailable DANG, E ENRIQUE OSBORNE Unavailable Unavailable DANG, E ENRIQUE OSBORNE Unavailable Unavailable DANG, E ENRIQUE OSBORNE Unavailable Unavailable DANG, E ENRIQUE OSBORNE Unavailable Unavailable DANG, E ENRIQUE OSBORNE Unavailable Unavailable DANG, E ENRIQUE OSBORNE Unavailable Unavailable DANG, E ENRIQUE OSBORNE Unavailable Unavailable DANG, E ENRIQUE OSBORNE Unavailable Unavailable DANG, E ENRIQUE OSBORNE Unavailable Unavailable DANG, E ENRIQUE OSBORNE Unavailable Unavailable DANG, E ENRIQUE OSBORNE Unavailable Unavailable DANG, E ENRIQUE OSBORNE Unavailable Unavailable DANG, Berry NUNEZ MD Unavailable Unavailable DANG, E ENRIQUE OSBORNE Unavailable Unavailable DANG, Berry NUNEZ MD Unavailable Unavailable DANG, E ENRIQUE OSBORNE Unavailable Unavailable DANG, E ENRIQUE OSBORNE Unavailable Unavailable DANG, E ENRIQUE OSBORNE Unavailable Unavailable DANG, E ENRIQUE OSBORNE Unavailable Unavailable DANG, E ENRIQUE OSBORNE Unavailable Unavailable DANG, E ENRIQUE OSBORNE Unavailable Unavailable DANG, E ENRIQUE OSBORNE Unavailable Unavailable DANG, E ENRIQUE OSBORNE Unavailable Unavailable DANG, E ENRIQUE OSBORNE Unavailable Unavailable DANG, E ENRIQUE OSBORNE Unavailable Unavailable DANG, Berry NUNEZ MD Unavailable Unavailable DANG, Berry NUNEZ MD Unavailable Unavailable DANG, Berry NUNEZ MD Unavailable Unavailable Panda, Dave Unavailable Unavailable Panda, Dave Unavailable Unavailable Panda, Dave Unavailable Unavailable Panda, Dave Unavailable Unavailable Panda, Dave Unavailable Unavailable [place], B Sebastian Unavailable Unavailable [place], B Sebastian Unavailable Unavailable Monique TILLEY MD Unavailable Unavailable Monique TILLEY MD Unavailable Unavailable Monique TILLEY MD Unavailable Unavailable Monique TILLEY MD Unavailable Unavailable Glenda Marie MD Unavailable Unavailable Glenda Marie MD Unavailable Unavailable [place]eder[place], Glenda Day MD Unavailable Unavailable [place], Glenda Day MD Unavailable Unavailable [place], Glenda Day MD Unavailable Unavailable [place], Glenda Day MD Unavailable Unavailable [place], Glenda Day MD Unavailable Unavailable [place], Glenda Day MD Unavailable Unavailable [place], Glenda Day MD Unavailable Unavailable [place], Glenda Day MD Unavailable Unavailable [place], Glenda Day MD Unavailable Unavailable [place], Glenda Day MD Unavailable Unavailable [place], Glenda Day MD Unavailable Unavailable [place], Glenda Day MD Unavailable Unavailable [place], Glenda Day MD Unavailable Unavailable [place], Glenda Day MD Unavailable Unavailable FORNI, R CARLA DPM Unavailable Unavailable FORNI, R CARLA DPM Unavailable Unavailable FORNI, R CARLA DPM Unavailable Unavailable FORNI, R CARLA DPM Unavailable Unavailable FORNI, R CARLA DPM Unavailable Unavailable FORNI, R CARLA DPM Unavailable Unavailable FORNI, R CARLA DPM Unavailable Unavailable FORNI, R CARLA DPM Unavailable Unavailable FORNI, R CARLA DPM Unavailable Unavailable FORNI, R CARLA DPM Unavailable Unavailable Daniel BUCHANAN MD Unavailable Unavailable Daniel BUCHANAN MD Unavailable Unavailable Daniel BUCHANAN MD Unavailable Unavailable Daniel BUCHANAN MD Unavailable Unavailable Daniel BUCHANAN MD Unavailable Unavailable Daniel BUCHANAN MD Unavailable Unavailable Daniel BUCHANAN MD Unavailable Unavailable Daniel BUCHANAN MD Unavailable Unavailable Daniel BUCHANAN MD Unavailable Unavailable Daniel BUCHANAN MD Unavailable Unavailable Daniel BUCHANAN MD Unavailable Unavailable Daniel BUCHANAN MD Unavailable Unavailable Daniel BUCHANAN MD Unavailable Unavailable Daniel BUCHANAN MD Unavailable Unavailable Daniel BUCHANAN MD Unavailable Unavailable Daniel BUCHANAN MD Unavailable Unavailable Daniel BUCHANAN MD Unavailable Unavailable Daniel BUCHANAN MD Unavailable Unavailable Daniel BUCHANAN MD Unavailable Unavailable Daniel BUCHANAN MD Unavailable Unavailable Daniel BUCHANAN MD Unavailable Unavailable Daniel BUCHANAN MD Unavailable Unavailable Daniel BUCHANAN MD Unavailable Unavailable Daniel BUCHANAN MD Unavailable Unavailable Daniel BUCHANAN MD Unavailable Unavailable CHARDaniel FRANCO MD Unavailable Unavailable Daniel BUCHANAN MD Unavailable Unavailable Daniel BUCHANAN MD Unavailable Unavailable Daniel BUCHANAN MD Unavailable Unavailable Daniel BUCHANAN MD Unavailable Unavailable Daniel BUCHANAN MD Unavailable Unavailable Daniel BUCHANAN MD Unavailable Unavailable Daniel BUCHANAN MD Unavailable Unavailable Daniel BUCHANAN MD Unavailable Unavailable Daniel BUCHANAN MD Unavailable Unavailable Daniel BUCHANAN MD Unavailable Unavailable Daniel BUCHANAN MD Unavailable Unavailable Daniel BUCHANAN MD Unavailable Unavailable Daniel BUCHANAN MD Unavailable Unavailable Daniel BUCHANAN MD Unavailable Unavailable Daniel BUCHANAN MD Unavailable Unavailable Daniel BUCHANAN MD Unavailable Unavailable Daniel BUCHANAN MD Unavailable Unavailable Daniel BUCHANAN MD Unavailable Unavailable Daniel BUCHANAN MD Unavailable Unavailable Daniel BUCHANAN MD Unavailable Unavailable Daniel BUCHANAN MD Unavailable Unavailable Daniel BUCHANAN MD Unavailable Unavailable Daniel BUCHANAN MD Unavailable Unavailable Daniel BUCHANAN MD Unavailable Unavailable Daniel BUCHANAN MD Unavailable Unavailable Daniel BUHCANAN MD Unavailable Unavailable Daniel BUCHANAN MD Unavailable Unavailable Daniel BUCHANAN MD Unavailable Unavailable Daniel BUCHANAN MD Unavailable Unavailable Daniel BUCHANAN MD Unavailable Unavailable Daniel BUCHANAN MD Unavailable Unavailable Daniel BUCHANAN MD Unavailable Unavailable Daniel BUCHANAN MD Unavailable Unavailable Daniel BUCHANAN MD Unavailable Unavailable Daniel BUCHANAN MD Unavailable Unavailable Daniel BUCHANAN MD Unavailable Unavailable Daniel BUCHANAN MD Unavailable Unavailable Dainel BUCHANAN MD Unavailable Unavailable Daniel BUCHANAN MD Unavailable Unavailable Daniel BUCHANAN MD Unavailable Unavailable Daniel BUCHANAN MD Unavailable Unavailable Daniel BUCHANAN MD Unavailable Unavailable Daniel BUCHANAN MD Unavailable Unavailable Daniel BUCHANAN MD Unavailable Unavailable Daniel BUCHANAN MD Unavailable Unavailable Daniel BUCHANAN MD Unavailable Unavailable Daniel BUCHAANN MD Unavailable Unavailable Daniel BUCHANAN MD Unavailable Unavailable Daniel BUCHANAN MD Unavailable Unavailable Daniel BUCHANAN MD Unavailable Unavailable Daniel BUCHANAN MD Unavailable Unavailable Daniel BUCHANAN MD Unavailable Unavailable Daniel BUCHANAN MD Unavailable JOSEY Obando MD Unavailable Unavailable BERT, JOSEY MD Unavailable Unavailable BERT, JOSEY MD Unavailable Unavailable BERT, JOSEY MD Unavailable Unavailable BERT, JOSEY MD Unavailable Unavailable BERT, JOSEY MD Unavailable Unavailable BERT, JOSEY MD Unavailable Unavailable BERT, JOSEY MD Unavailable Unavailable BERT, JOSEY MD Unavailable Unavailable NOBLE, L LIZETH MD Unavailable Unavailable NOBLE, L LIZETH MD Unavailable Unavailable NOBLE, L LIZETH MD Unavailable Unavailable NOBLE, L LIZETH MD Unavailable Unavailable NOBLE, L LIZETH MD Unavailable Unavailable NOBLE, L LIZETH MD Unavailable Unavailable NOBLE, L LIZETH MD Unavailable Unavailable [place], L LIZETH MD Unavailable Unavailable [place], L LIZETH MD Unavailable Unavailable [place], L LIZETH MD Unavailable Unavailable [place], L LIZETH MD Unavailable Unavailable [place], L LIZETH MD Unavailable Unavailable [place], L LIZETH MD Unavailable Unavailable [place], L LIZETH MD Unavailable Unavailable [place], L LIZETH MD Unavailable Unavailable [place], L LIZETH MD Unavailable Unavailable [place], L LIZETH MD Unavailable Unavailable [place], L LIZETH MD Unavailable Unavailable [place], L LIZETH MD Unavailable Unavailable [place], L LIZETH MD Unavailable Unavailable [place], L LIZETH MD Unavailable Unavailable [place], L LIZETH MD Unavailable Unavailable [place], L LIZETH MD Unavailable Unavailable [place], L LIZETH MD Unavailable Unavailable [place], L LIZETH MD Unavailable Unavailable [place], L LIZETH MD Unavailable Unavailable [place], L LIZETH MD Unavailable Unavailable [place], L LIZETH MD Unavailable Unavailable [place], L LIZETH MD Unavailable Unavailable [place], L LIZETH MD Unavailable Unavailable [place], L LIZETH MD Unavailable Unavailable [place], L LIZETH MD Unavailable Unavailable [place], L LIZETH MD Unavailable Unavailable [place], L LIZETH MD Unavailable Unavailable [place], L LIZETH MD Unavailable Unavailable [place], L LIZETH MD Unavailable Unavailable [place], L LIZETH MD Unavailable Unavailable [place], L LIZETH MD Unavailable Unavailable [place], L LIZETH MD Unavailable Unavailable [place], L LIZETH MD Unavailable Unavailable [place], L LIZETH MD Unavailable Unavailable [place], L LIZETH MD Unavailable Unavailable [place], L LIZETH MD Unavailable Unavailable [place], L LIZETH MD Unavailable Unavailable [place], L LIZETH MD Unavailable Unavailable [place], L LIZETH MD Unavailable Unavailable [place], L LIZETH MD Unavailable Unavailable [place], L LIZETH MD Unavailable Unavailable [place], L LIZETH MD Unavailable Unavailable [place], L LIZETH MD Unavailable Unavailable [place], L LIZETH MD Unavailable Unavailable [place], L LIZETH MD Unavailable Unavailable [place], L LIZETH MD Unavailable Unavailable [place], L LIZETH MD Unavailable Unavailable [place], L LIZETH MD Unavailable Unavailable REAL, L LIZETH MD Unavailable Unavailable NOBLE, Kong STANLEY MD Unavailable Unavailable NOBLE, Kong STANLEY MD Unavailable Unavailable NOBLE, Kong STANLEY MD Unavailable Unavailable NOBLE, Kong STANLEY MD Unavailable Unavailable NOBLE, Kong STANLEY MD Unavailable Unavailable NOBLE, Kong STANLEY MD Unavailable Unavailable NOBLE, Kong STANLEY MD Unavailable Unavailable NOBLE, Kong STANLEY MD Unavailable Unavailable NOBLE, Kong STANLEY MD Unavailable Unavailable NOBLE, Kong STANLEY MD Unavailable Unavailable NOBLE, Kong STANLEY MD Unavailable Unavailable NOBLE, Kong STANLEY MD Unavailable Unavailable NOBLE, Kong STANLEY MD Unavailable Unavailable NOBLE, Kong STANLEY MD Unavailable Unavailable NOBLE, Kong STANLEY MD Unavailable Unavailable NOBLE, Kong STANLEY MD Unavailable Unavailable NOBLE, Kong STANLEY MD Unavailable Unavailable MCKENZIE, G EDWARD RPA Unavailable Unavailable MCKENZIE, G EDWARD RPA Unavailable Unavailable MCKENZIE, G EDWARD RPA Unavailable Unavailable MCKENZIE, G EDWARD RPA Unavailable Unavailable MCKENZIE, G EDWARD RPA Unavailable Unavailable MCKENZIE, G EDWARD RPA Unavailable Unavailable MCKENZIE, G EDWARD RPA Unavailable Unavailable MCKENZIE, G EDWARD RPA Unavailable Unavailable MCKENZIE, G EDWARD RPA Unavailable Unavailable MCKENZIE, G EDWARD RPA Unavailable Unavailable MCKENZIE, G EDWARD RPA Unavailable Unavailable MCKENZIE, G EDWARD RPA Unavailable Unavailable MCKENZIE, G EDWARD RPA Unavailable Unavailable MCKENZIE, G EDWARD RPA Unavailable Unavailable MCKENZIE, G EDWARD RPA Unavailable Unavailable MCKENZIE, G EDWARD RPA Unavailable Unavailable MCKENZIE, G EDWARD RPA Unavailable Unavailable MCKENZIE, G EDWARD RPA Unavailable Unavailable MCKENZIE, G EDWARD RPA Unavailable Unavailable MCKENZIE, G EDWARD RPA Unavailable Unavailable MCKENZIE, G EDWARD RPA Unavailable Unavailable MCKENZIE, G EDWARD RPA Unavailable Unavailable MCKENZIE, G EDWARD RPA Unavailable Unavailable MCKENZIE, G EDWARD RPA Unavailable Unavailable MCKENZIE, G EDWARD RPA Unavailable Unavailable MCKENZIE, G EDWARD RPA Unavailable Unavailable MCKENZIE, G EDWARD RPA Unavailable Unavailable MCKENZIE, G EDWARD RPA Unavailable Unavailable MCKENZIE, G EDWARD RPA Unavailable Unavailable MCKENZIE, G EDWARD RPA Unavailable Unavailable MCKENZIE, G EDWARD RPA Unavailable Unavailable MCKENZIE, G EDWARD RPA Unavailable Unavailable MCKENZIE, G EDWARD RPA Unavailable Unavailable MCKENZIE, G EDWARD RPA Unavailable Unavailable MCKENZIE, G EDWARD RPA Unavailable Unavailable MCKENZIE, G EDWARD RPA Unavailable Unavailable MCKENZIE, G EDWARD RPA Unavailable Unavailable BALWINDER, L MANE PA Unavailable [...] Unavailable BALWINDER, L MANE PA Unavailable Unavailable Arnie, D Sebastian PA Unavailable Unavailable Arnie, D Sebastian PA Unavailable Unavailable Arnie, D Sebastian PA Unavailable Unavailable Arnie, D Sebastian PA Unavailable Unavailable Arnie, D Sebastian PA Unavailable Unavailable Arnie, D Sebastian PA Unavailable Unavailable Arnie, D Sebastian PA Unavailable Unavailable Arnie, D Sebastian PA Unavailable Unavailable Arnie, D Sebastian PA Unavailable Unavailable Arnie, D Sebastian PA Unavailable Unavailable Arnie, D Sebastian PA Unavailable Unavailable Arnie, D Sebastian PA Unavailable Unavailable Arnie, D Sebastian PA Unavailable Unavailable Arnie, D Sebastian PA Unavailable Unavailable Arnie, D Sebastian PA Unavailable Unavailable Arnie, D Sebastian PA Unavailable Unavailable Arnie, D Sebastian PA Unavailable Unavailable Arnie, D Sebastian PA Unavailable Unavailable Arnie, D Sebastian PA Unavailable Unavailable Arnie, D Sebastian PA Unavailable Unavailable Arnie, D Sebastian PA Unavailable Unavailable Arnie, D Sebastian PA Unavailable Unavailable Arnie, D Sebastian PA Unavailable Unavailable Arnie, D Sebastian PA Unavailable Unavailable Arnie, D Sebastian PA Unavailable Unavailable Arnie, D Sebastian PA Unavailable Unavailable Arnie, D Sebastian PA Unavailable Unavailable Arnie, D Sebastian PA Unavailable Unavailable Arnie, D Sebastian PA Unavailable Unavailable Arnie, D Sebastian PA Unavailable Unavailable Arnie, D Sebastian PA Unavailable Unavailable Arnie, D Sebastian PA Unavailable Unavailable Arnie, D Sebastian PA Unavailable Unavailable Arnie, D Sebastian PA Unavailable Unavailable Arnie, D Sebastian PA Unavailable Unavailable Arnie, D Sebastian PA Unavailable Unavailable Arnie, D Sebastian PA Unavailable Unavailable Arnie, D Sebastian PA Unavailable Unavailable Arnie, D Sebastian PA Unavailable Unavailable Arnie, D Sebastian PA Unavailable Unavailable Arnie, D Sebastian PA Unavailable Unavailable Arnie, D Sebastian PA Unavailable Unavailable Arnie, D Sebastian PA Unavailable Unavailable Arnie, D Sebastian PA Unavailable Unavailable Arnie, D Sebastian PA Unavailable Unavailable Arnie, D Sebastian PA Unavailable Unavailable Arnie, D Sebastian PA Unavailable Unavailable Arnie, D Sebastian PA Unavailable Unavailable Arnie, D Sebastian PA Unavailable Unavailable Arnie, D Sebastian PA Unavailable Unavailable Arnie, D Sebastian PA Unavailable Unavailable Arnie, D Sebastian PA Unavailable Unavailable Arnie, D Sebastian PA Unavailable Unavailable Arnie, D Sebastian PA Unavailable Unavailable Arnie, D Sebastian PA Unavailable Unavailable Arnie, D Sebastian PA Unavailable Unavailable Arnie, D Sebastian PA Unavailable Unavailable Arnie, D Sebastian PA Unavailable Unavailable Arnie, D Sebastian PA Unavailable Unavailable Arnie, D Sebastian PA Unavailable Unavailable Arnie, D Sebastian PA Unavailable Unavailable Arnie, D Sebastian PA Unavailable Unavailable Arnie, D Sebastian PA Unavailable Unavailable Arnie, D Sebastian PA Unavailable Unavailable Arnie, D Sebastian PA Unavailable Unavailable Arnie, D Sebastian PA Unavailable Unavailable Arnie, D Sebastian PA Unavailable Unavailable Arnie, D Sebastian PA Unavailable Unavailable Berry Hurtado Jr, MD Unavailable Unavailable Berry Hurtado Jr, MD Unavailable Unavailable Berry Hurtado Jr, MD Unavailable Unavailable Berry Hurtado Jr, MD Unavailable Unavailable Berry Hurtado Jr, MD Unavailable Unavailable Berry Hurtado Jr, MD Unavailable Unavailable Berry Hurtado Jr, MD Unavailable Unavailable Berry Hurtado Jr, MD Unavailable Unavailable Berry Hurtado Jr, MD Unavailable Unavailable Berry Hurtado Jr, MD Unavailable Unavailable Berry Hurtado Jr, MD Unavailable Unavailable Berry Hurtado Jr, MD Unavailable Unavailable Berry Hurtado Jr, MD Unavailable Unavailable Berry Hurtado Jr, MD Unavailable Unavailable Berry Hurtado Jr, MD Unavailable Unavailable Berry Hurtado Jr, MD Unavailable Unavailable Berry Hurtado Jr, MD Unavailable Unavailable Berry Hurtado Jr, MD Unavailable Unavailable Berry Hurtado Jr, MD Unavailable Unavailable Berry Hurtado Jr, MD Unavailable Unavailable Berry Hurtado Jr, MD Unavailable Unavailable Berry Hurtado Jr, MD Unavailable Unavailable Berry Hurtado Jr, MD Unavailable Unavailable Berry Hurtado Jr, MD Unavailable Unavailable Berry Hurtado Jr, MD Unavailable Unavailable Berry Hurtado Jr, MD Unavailable Unavailable Berry Hurtado Jr, MD Unavailable Unavailable Berry Hurtado Jr, MD Unavailable Unavailable Berry Hurtado Jr, MD Unavailable Unavailable Berry Hurtado Jr, MD Unavailable Unavailable Leggat Jr, Berry Jean Baptiste MD Unavailable Unavailable Leggat , Berry Jean Baptiste MD Unavailable Unavailable Leggat Jr, Berry Jean Baptiste MD Unavailable Unavailable Leggat , Berry Jean Baptiste MD Unavailable Unavailable Leggat , Berry Jean Baptiste MD Unavailable Unavailable Leggat , Berry Jean Baptiste MD Unavailable Unavailable Leggat , Berry Jean Baptiste MD Unavailable Unavailable Leggat , Berry Jean Baptiste MD Unavailable Unavailable Leggat , Berry Jean Baptiste MD Unavailable Unavailable Leggat , Berry Jean Baptiste MD Unavailable Unavailable Leggat , Berry Jean Baptiste MD Unavailable Unavailable Leggat , Berry Jean Baptiste MD Unavailable Unavailable Leggat , Berry Jean Baptiste MD Unavailable Unavailable Leggat , Berry Jean Baptiste MD Unavailable Unavailable Leggat , Berry Jean Baptiste MD Unavailable Unavailable Leggat , Berry Jean Baptiste MD Unavailable Unavailable Leggat Jr, Berry Jean Baptiste MD Unavailable Unavailable FORNI, R CARLA DPM Unavailable Unavailable FORNI, R CARLA DPM Unavailable Unavailable FORNI, R CARLA DPM Unavailable Unavailable FORNI, R CARLA DPM Unavailable Unavailable FORNI, R CARLA DPM Unavailable Unavailable FORNI, R CARLA DPM Unavailable Unavailable FORNI, R CARLA DPM Unavailable Unavailable FORNI, R CARLA DPM Unavailable Unavailable FORNI, R CARLA DPM Unavailable Unavailable FORNI, R CARLA DPM Unavailable Unavailable Platt, L Pushpa RPA Unavailable [...] Unavailable Platt, L Pushpa RPA Unavailable Unavailable Zakia Traylor MD Unavailable [email or web address] Zakia Traylor MD Unavailable [email or web address] Larson, Jacky Unavailable Unavailable Larson, Jacky Unavailable Unavailable Larson, Jacky Unavailable Unavailable Larson, Jacky Unavailable Unavailable Larson, Jacky Unavailable Unavailable Larson, Jacky Unavailable Unavailable Larson, Jacky Unavailable Unavailable Larson, Jacky Unavailable Unavailable Larson, Ajcky Unavailable Unavailable Larson, Jacky Unavailable Unavailable Larson, Jacky Unavailable Unavailable Larson, Jacky Unavailable Unavailable Larson, Jacky Unavailable Unavailable Larson, Jacky Unavailable Unavailable Larson, Jacky Unavailable Unavailable Larson, Jacky Unavailable Unavailable Larson, Jacky Unavailable Unavailable Larson, Jacky Unavailable Unavailable Larson, Jacky Unavailable Unavailable Larson, Jacky Unavailable Unavailable Larson, Jacky Unavailable Unavailable Larson, Jacky Unavailable Unavailable Larson, Jacky Unavailable Unavailable Larson, Jacky Unavailable Unavailable Larson, Jacky Unavailable Unavailable Larson, Jacky Unavailable Unavailable Larson, Jacky Unavailable Unavailable Larson, Jacky Unavailable Unavailable Larson, Jacky Unavailable Unavailable Larson, Jacky Unavailable Unavailable Larson, Jacky Unavailable Unavailable Larson, Jacky Unavailable Unavailable Larson, Jacky Unavailable Unavailable Larson, Jacky Unavailable Unavailable Larson, Jacky Unavailable Unavailable Larson, Jacky Unavailable Unavailable Larson, Jacky Unavailable Unavailable Larson, Jacky Unavailable Unavailable Larson, Jacky Unavailable Unavailable Larson, Jacky Unavailable Unavailable Larson, Jacky Unavailable Unavailable Larson, Jacky Unavailable Unavailable Larson, Jacky Unavailable Unavailable Larson, Jacky Unavailable Unavailable Larson, Jacky Unavailable Unavailable Larson, Jacky Unavailable Unavailable Larson, Jacky Unavailable Unavailable Larson, Jacky Unavailable Unavailable Larson, Jacky Unavailable Unavailable Larson, Jacky Unavailable Unavailable Larson, Jacky Unavailable Unavailable Larson, Jacky Unavailable Unavailable Larson, Jacky Unavailable Unavailable Larson, Jacky Unavailable Unavailable Larson, Jacky Unavailable Unavailable Larson, Jacky Unavailable Unavailable Larson, Jacky Unavailable Unavailable Larson, Jacky Unavailable Unavailable Larson, Jacky Unavailable Unavailable Larson, Jacky Unavailable Unavailable Larson, Jacky Unavailable Unavailable Larson, Jacky Unavailable Unavailable Larson, Jacky Unavailable Unavailable Larson, Jacky Unavailable Unavailable Larson, Jacky Unavailable Unavailable Larson, Jacky Unavailable Unavailable Larson, Jacky Unavailable Unavailable Larson, Jacky Unavailable Unavailable Larson, Jacky Unavailable Unavailable Larson, Jacky Unavailable Unavailable Larson, Jacky Unavailable Unavailable Larson, Jacky Unavailable Unavailable Larson, Jacky Unavailable Unavailable Larson, Jacky Unavailable Unavailable Larson, Jacky Unavailable Unavailable Larson, Jacky Unavailable Unavailable Larson, Jacky Unavailable Unavailable Larson, Jacky Unavailable Unavailable Larson, Jacky Unavailable Unavailable VELASCO, PERLA MBBS Unavailable Unavailable VELASCO, PERLA MBBS Unavailable Unavailable VELASCO, PERLA MBBS Unavailable Unavailable VELASCO, PERLA MBBS Unavailable Unavailable VELASCO, PERLA MBBS Unavailable Unavailable VELASCO, PERLA MBBS Unavailable Unavailable VELASCO, PERLA MBBS Unavailable Unavailable VELASCO, PERLA MBBS Unavailable Unavailable VELASCO, PERLA MBBS Unavailable Unavailable VELASCO, PERLA MBBS Unavailable Unavailable VELASCO, PERLA MBBS Unavailable Unavailable VELASCO, PERLA MBBS Unavailable Unavailable VELASCO, PERLA MBBS Unavailable Unavailable VELASCO, PERLA MBBS Unavailable Unavailable VELASCO, PERLA MBBS Unavailable Unavailable VELASCO, PERLA MBBS Unavailable Unavailable VELASCO, PERLA MBBS Unavailable Unavailable VELASCO, PERLA MBBS Unavailable Unavailable VELASCO, PERLA MBBS Unavailable Unavailable VELASCO, PERLA MBBS Unavailable Unavailable VELASCO, PERLA MBBS Unavailable Unavailable VELASCO, PERLA MBBS Unavailable Unavailable VELASCO, PERLA MBBS Unavailable Unavailable VELASCO, PERLA MBBS Unavailable Unavailable VELASCO, PERLA MBBS Unavailable Unavailable VELACSO, PERLA MBBS Unavailable Unavailable VELASCO, PERLA MBBS Unavailable Unavailable VELASCO, PERLA MBBS Unavailable Unavailable VELASCO, PERLA MBBS Unavailable Unavailable VELASCO, PERLA MBBS Unavailable Unavailable VELASCO, PERLA MBBS Unavailable Unavailable VELASCO, PERLA MBBS Unavailable Unavailable VELASCO, PERLA MBBS Unavailable Unavailable VELASCO, PERLA MBBS Unavailable Unavailable VELASCO, PERLA MBBS Unavailable Unavailable VELASCO, PERLA MBBS Unavailable Unavailable VELASCO, PERLA MBBS Unavailable Unavailable VELASCO, PERLA MBBS Unavailable Unavailable Re-disclosure Warning The records that [...] is protected by Article 27-F of the [facility] Public Health law. If you continue you may have access to information: Regarding HIV / AIDS; Provided by facilities licensed or operated by the [facility] Office of Mental Health; or Provided by the [facility] Office for People With Developmental Disabilities. If such information is present, then the following [facility] mandated warning applies: This information has [...] law may result in a fine or [place] health care facility sentence or both. A general authorization for the release of medical or other information is NOT sufficient authorization for further disc losure. Allergies and Adverse Reactions Type Description Substance Reaction Status Data Source(s ) Drug allergy Tetracyclines & Related Tetracyclines & Related PCC ([facility]) Drug allergy Sulfa Antibiotics Sulfa Antibiotics [facility] ([facility]) Drug allergy Penicillins Penicillins [facility] ([facility]) Drug allergy Iodinated Diagnostic Agents Iodinated Diagnostic Agents [facility] ([facility]) Drug allergy Keflex Keflex PCC ([facility]) Drug allergy Minoxidil Minoxidil [facility] ([facility]) Drug allergy hydrALAZINE hydrALAZINE PCC ([facility]) Drug allergy Erythromycin Erythromycin PCC ([facility]) Drug allergy Carvedilol Carvedilol PCC ([facility]) Drug allergy Amlodipine Amlodipine PCC ([facility]) To Be Determined To Be Determined PC C ([facility]) Propensity to adverse reactions MINOXIDIL MINOXIDIL [facility] Family History Family Member Name Family Member Gender Family Member Status Date o f Status Description Data Source(s) Unknown Unknown Problem [facility] ([facility] Unknown Unknown Problem MEDENT ([facility] father Unknown Female Problem MEDENT ([facility]) Unknown Female Problem MEDENT ([facility] Unknown Female Problem MEDENT ([facility] Encounters Encounter Providers Location Date Indications Data Source(s ) Outpatient Attender: ISREAL MCKENZIE RPA 08/16 02:25:20 PM EDT - 08/16/2020 03:37:18 PM EDT [facility] ([facility] ) Outpatient Attender: CARLA HUMPHRIES [facility] TONG Triana MD 07/31/2020 02:39:00 PM EDT - 07/31/2020 02:39:00 PM EDT [facility] Outpatient Attender: Sebastian CARRILLO [place] [facility] 01:30:00 PM EDT MED[facility] ([facility] Outpatient Attender: MANE CARRILLO Main Office 07/26/2020 0 2:00:00 PM EDT MEDENT ([facility]) Outpatient Attender: Barb Silveira/Melisa/Darryl/ Daryl 07/15/2020 02:15:00 PM EDT MEDENT ([facility]) Outpatient Attender: FREDA CASTELLANOS MD [place] [facility] 02:00:00 PM EDT MEDENT ([facility] Outpatient Attender: GORDON BUCHANAN MD 07/03/2020 12:00:00 AM [facility] Outpatient Attender: Jacky Larson 06/17/2020 12:00:00 AM E [facility] Outpatient Attender: Sebastian CARRILLO [place] [facility] 04/2020 03:00:00 PM EDT MEDENT ([facility] Outpatient Attender: MANE CARRILLO Main Office 06/12/2020 0 3:00:00 PM EDT MEDENT ([facility]) Inpatient Attender: ENRIQUE DANG MD 05/22 03:42:00 PM EST - 06/04/2020 11:51:00 AM EDT PCC ([facility]) Patient discharged. Inpatient Attender: ENRIQUE DANG MD 05/22/2020 10:42:00 AM EST PCC ([facility]) Admission cancelled. Disregard status an d admitted date. Inpatient Attender: EDDI TILLEY Day nder: Dave PandaAttender: JOSEY NOEL MDAttender: GORDON BUCHANAN MDAdmitter: GORDON BUCHANAN MDReferrer: GORDON BUCHANAN MDConsultant: Markel Hurtado JrConsultant: PERLA VELASCO MBBSConsultant: JOSEY NOEL MDConsultant: Sebastian FlowersgaConsultant: LIZETH NOBLE MDConsultant: Kareem Traylor MD [id number] 05/11/2020 12:00:00 AM EST - 05/22/2020 04:13:00 PM EST Non- ST elevation (NSTEMI) myocardial infarction [facility] Non-ST elevation (NSTEMI) myocardial inf arction Patient discharged. Outpatient Attender: CARLA HUMPHRIES DPMConsultant: TONG Triana MD 05/08/2020 01:58:00 PM EST - 05/08/2020 01:58:00 PM EST [facility] Outpatient Attender: CARLA HUMPHRIES [facility] 05/08/2020 0 1:00:00 PM EST MEDENT ([facility]) Outpatient Attender: Barb Silveira/Melisa/Darryl/ Reindl 05/06/2020 02:00:00 PM EST [facility] ([facility] Outpatient Attender: MANE CARRILLO Main Office 05/01/2020 0 1:30:00 PM EST MEDENT ([facility]) Outpatient Attender: Sebastian CARRILLO [place] [facility] 10/2020 02:00:00 PM EST MEDENT ([facility] Outpatient Attender: Barb Silveira/Melisa/Darryl/ Reindl 02/22/2020 09:30:00 AM EST MEDENT ([facility]) Outpatient Attender: Pushpa Silveira/Melisa/Darryl/R eindl 02/12/2020 12:00:00 PM EST MEDENT ([facility] ) Outpatient Attender: Barb Silveira/Melisa/Darryl/ Reindl 01/01/2020 01:00:00 PM EDT MEDENT ([facility] ) Outpatient Attender: TONG CARTAGENA MDConsultant: TONG Triana MD 10/30/2019 08:30:00 PM EDT - 10/30/2019 08:40:00 PM EDT [facility] Immunizations Vaccine Date Status Description Data Source(s) COVID-19 VACCINE Jenn 05/21/2020 12:00:00 AM EST completed [facility] Vaccine Series Complete: YESThis Data wa s Submitted to [facility] Via [employer] [facility] 05/21/2020 12:00:00 AM EST completed <td I D="[id number]">Jenn SARS-CoV-2 Vaccine</td><td>05/21/2020</td><td></td> [facility] Medications Medication Brand Name Start Date Product Form Dose Route Admi nistrative Instructions Pharmacy Instructions Status Indications Reaction Description Data Source(s) 0.4 mg 01/10/2021 12:00:00 AM EDT capsule 90 TAKE ONE CAPSULE BY MOUTH AT BEDTIME TAKE ONE CAPSULE BY MOUTH AT BEDTIME SOLD: 01/10/2021 [facility] Meclizine Hydrochloride 25 MG Oral Tablet MECLIZINE HCL 11/27/2020 12:00:00 AM EDT tablet 180 TAKE ONE TABLET BY MOUTH TWI CE A DAY NEEDED FOR DIZZINESS TAKE ONE TABLET BY MOUTH TWICE A DAY NEEDED FOR DIZZINESS SOLD: 11/27/2020 [facility] 88 mcg 11/23/2020 12:00:00 AM EDT tablet 90 TAKE ONE TABLET BY MOUTH EVERY DAY TAKE ONE TABLET BY MOUTH EVERY DAY SOLD: 11/27/2020 [facility] Meclizine Hydrochloride 25 MG Oral Tablet MECLIZINE HCL 10/27/2020 12:00:00 AM EDT tablet 60 TAKE ONE TABLET BY MOUTH TWI CE A DAY TAKE ONE TABLET BY MOUTH TWICE A DAY SOLD: 10/29/2020 [facility] 2.5 mg 10/21/2020 12:00:00 AM EDT tablet 180 TAKE ONE TABLET BY MOUTH TWICE A DAY TAKE ONE TABLET BY MOUTH TWICE A DAY SOLD: 10/21/2020 [facility] 100 mg 09/03/2020 12:00:00 AM EDT tablet 90 TAKE ONE TABLET BY MOUTH EVERY DAY TAKE ONE TABLET BY MOUTH EVERY DAY SOLD: 12/18/2020 [facility] 100 mg 09/03/2020 12:00:00 AM EDT tablet 90 TAKE ONE TABLET BY MOUTH EVERY DAY TAKE ONE TABLET BY MOUTH EVERY DAY SOLD: 09/06/2020 [facility] 0.2 mg/24 hr 08/28/2020 12:00:00 AM EDT patch weekly 12 APPLY 1 PATCH WEEKLY DIRECTED APPLY 1 PATCH WEEKLY DIRECTED SOLD: 11/27/2020 [facility] 0.2 mg/24 hr 08/28/2020 12:00:00 AM EDT patch weekly 12 APPLY 1 PATCH WEEKLY DIRECTED APPLY 1 PATCH WEEKLY DIRECTED SOLD: 08/31/2020 [facility] 2.5 mg 08/26/2020 12:00:00 AM EDT tablet 60 TAKE ONE TABLET BY MOUTH TWO TIMES A DAY TAKE ONE TABLET BY MOUTH TWO TIMES A DAY SOLD: 08/26/2020 [facility] 2.5 mg 08/26/2020 12:00:00 AM EDT tablet 60 TAKE ONE TABLET BY MOUTH TWO TIMES A DAY TAKE ONE TABLET BY MOUTH TWO TIMES A DAY SOLD: 09/25/2020 [facility] Betamethasone 0.5 MG/ML / Clotrimazole 10 MG/ML Topica l Cream 1-0.05 % CLOTRIMAZOLE/BETAMETHASONE DIP 08/01/2020 12:00:00 AM EDT cream 45 APPLY TO AFFECTED AREA(S) TWO TIMES A DAY APPLY TO AFFECTED AREA(S) TWO TIMES A DAY SOLD: 08/01/2020 [facility] pregabalin 75 MG Oral Capsule [Lyrica] Lyrica 07/31/2020 12:00:00 A M EDT active MEDENT ([facility]) Betamethasone 0.5 MG/ML / Clotrimazole 10 MG/ML Topica l Cream Clotrimazole/Betamethasone Dipropionate 07/31/2020 12:00:00 AM EDT active MEDENT ([facility]) 80 mg 07/18/2020 12:00:00 AM EDT tablet 180 TAKE ONE TABLET BY MOUTH TWICE A DAY TAKE ONE TABLET BY MOUTH TWICE A DAY SOLD: 07/19/2020 [facility] 80 mg 07/18/2020 12:00:00 AM EDT tablet 180 TAKE ONE TABLET BY MOUTH TWICE A DAY TAKE ONE TABLET BY MOUTH TWICE A DAY SOLD: 10/19/2020 [facility] 100 mg 07/15/2020 12:00:00 AM EDT tablet 90 TAKE 1/2 TABLET BY MOUTH TWICE A DAY TAKE 1/2 TABLET BY MOUTH TWICE A DAY SOLD: 07/17/2020 [facility] 100 mg 07/15/2020 12:00:00 AM EDT tablet 90 TAKE 1/2 TABLET BY MOUTH TWICE A DAY TAKE 1/2 TABLET BY MOUTH TWICE A DAY SOLD: 11/11/2020 [facility] 0.4 mg 07/11/2020 12:00:00 AM EDT capsule 90 TAKE ONE CAPSULE BY MOUTH AT BEDTIME TAKE ONE CAPSULE BY MOUTH AT BEDTIME SOLD: 07/11/2020 [facility] 0.4 mg 07/11/2020 12:00:00 AM EDT capsule 90 TAKE ONE CAPSULE BY MOUTH AT BEDTIME TAKE ONE CAPSULE BY MOUTH AT BEDTIME SOLD: 10/11/2020 [facility] pantoprazole 40 MG Delayed Release Oral Tablet PANTOPRAZOLE SODIUM 07/11/2020 12:00:00 AM EDT tablet,delayed release (DR/EC) 90 T GREER ONE TABLET BY MOUTH EVERY DAY TAKE ONE TABLET BY MOUTH EVERY DAY SOLD: 07/11/2020 [facility] 75 mg 07/11/2020 12:00:00 AM EDT tablet 90 TAKE ONE TABLET BY MOUTH EVERY DAY TAKE ONE TABLET BY MOUTH EVERY DAY SOLD: 07/11/2020 [facility] pantoprazole 40 MG Delayed Release Oral Tablet PANTOPRAZOLE SODIUM 07/11/2020 12:00:00 AM EDT tablet,delayed release (DR/EC) 90 T GREER ONE TABLET BY MOUTH EVERY DAY TAKE ONE TABLET BY MOUTH EVERY DAY SOLD: 11/11/2020 [facility] Acetaminophen 325 MG Oral Tablet Acetaminophen 06/14/2020 12:00:00 AM EDT ORAL active MEDENT ([facility] valsartan 160 MG Oral Tablet Valsartan 06/14/2020 12:00:00 AM EDT ORAL active [facility] ([facility] torsemide 100 MG Oral Tablet Torsemide 06/11/2020 12:00:00 AM EDT ORAL active [facility] ([facility] 168 HR Clonidine 0.97601 MG/HR Transdermal Patch Clonidine 06/11/2020 12:00:00 AM EDT active [facility] ([facility] Famotidine 20 MG Oral Tablet Famotidine 06/11/2020 12:00:00 AM EDT ORAL active [facility] ([facility]) Diclofenac Sodium 0.01 MG/MG Topical Gel Diclofenac Sodium 06/11/2020 12:00:00 AM EDT active [facility] ([facility] clopidogrel 75 MG Oral Tablet Clopidogrel Bisulfate 06/11/2020 1 2:00:00 AM EDT ORAL active MEDENT ( [facility]) atorvastatin 40 MG Oral Tablet Atorvastatin Calcium 06/11/2020 1 2:00:00 AM EDT ORAL active MEDENT ( [facility]) Tamsulosin hydrochloride 0.4 MG Oral Capsule Tamsulosin HCL 06/11/2020 12:00:00 AM EDT ORAL [facility] Magnesium Oxide 400 MG Oral Tablet Magnesium Oxide 06/11/2020 12:00 :00 AM EDT ORAL active [facility] ([facility]) Acetaminophen 325 MG Oral Tablet Acetaminophen 06/11/2020 12:00:00 AM EDT active [facility] ([facility]) Tamsulosin hydrochloride 0.4 MG Oral Cap blair Tamsulosin HCl 0.4 MG Oral Capsule (FLOMAX) Tamsulosin HCl 0.4 MG Oral Capsule (FLOMAX) 05/23/2020 12:00 :00 AM EST 0.8 mg Oral active Take 2 capsules by mouth daily [facility] Tab-A-Jemal/Beta Carotene Oral Tablet 5442-6795-87 05/22/2020 12:00: 00 AM EST 1 {tbl} Oral active Take 1 tablet by mouth d [facility] Allopurinol 100 MG Oral Tablet Allopurinol 100 MG Oral Tablet (ZYLOPRIM) Allopurinol 100 MG Oral Tablet (ZYLOPRIM) 05/22/2020 12:00:00 AM EST 100 mg Oral active Take 1 tablet by shereen th daily with food. [facility] Venofer 20 MG/ML Intravenous Solution (iron sucrose) 0517-23 40-10 05/22/2020 12:00:00 AM EST 50 mg Intravenous active Inject 2.5 mLs into the vein Every eday at dialysis only. [facility] 0.3 ML Methoxy polyethylene glycol-epoet in beta 0.167 MG/ML Prefilled Syringe [Mircera] Mircera 50 MCG/0.3ML Injection Solution Prefilled Syringe (Methoxy PEG-Epoetin Beta) Mircera 50 MCG/0.3ML Injection Solution Prefilled Syringe (Methoxy PEG-Epoetin Beta) 05/22/2020 12:00:00 AM EST 50 ug Inject ion active Inject 50 mcg as dir ected every 28 (twenty-eight) days at dialysis only. [facility] Levothyroxine Sodium 0.088 MG Oral Table t Levothyroxine Sodium 88 MCG Oral Tablet (SYNTHROID) Levothyroxine Sodium 88 MCG Oral Tablet (SYNTHROID) 05/22/2020 12:00:00 AM EST 88 ug Oral aborted Take 1 tablet by mouth daily [facility] gabapentin 100 MG Oral Capsule Gabapentin 100 MG Oral Capsule (NEURONTIN) Gabapentin 100 MG Oral Capsule (NEURONTIN) 05/22/2020 12:00:00 AM EST 100 mg Oral aborted Take 1 capsule by mo ut Two Times Daily [facility] Lidocaine 5 % External Patch (LIDODERM) 6319-4972-71 05/23/19 12:00:00 AM EST 2 {patch} Transdermal active Place 2 pa tches onto the skin every 24 (twenty-four) hours for 3 daysas directed 12 hours on 12 hours off. [facility] Calcitriol 0.95157 MG Oral Capsule Calcitriol 0.25 MCG Oral Capsule (ROCALTROL) Calcitriol 0.25 MCG Oral Capsule (ROCALTROL) 05/22/2020 12:00:00 AM EST 0.25 ug Oral active Take 1 cap blair by mouth 3 (three) times a week on Wednesday, and Wednesday at dialysis only. [facility] Alprazolam 0.5 MG Oral Tablet ALPRAZolam 0.5 MG Oral T ablet (XANAX) ALPRAZolam 0.5 MG Oral Tablet (XANAX) 05/22/2020 12:00:00 AM EST 0.5 mg Oral active Take 1 tablet by mouth Two t imes daily as needed Max daily of 2 tablets. , Max Daily Dose: 1 mg [facility] POLYETHYLENE GLYCOL 3350 142 MG/ML Oral Solution Polyethylene Glycol 3350 17 GM Oral Packet (MIRALAX) Polyethylene Glycol 3350 17 GM Oral Packet (MIRALAX) 05/22/2020 12:00:00 AM EST 17 g Oral active Take 1 packet by mouth daily as needed for Constipation for up to 10 daysPlease substitute bottle for packets, if packets are unavailable. [facility] Docusate Sodium 100 MG Oral Capsule Docu sate Sodium 100 MG Oral Capsule (COLACE) Docusate Sodium 100 MG Oral Capsule (COLACE) 05/22/2020 12:00:00 AM EST 100 mg Oral active Take 1 cap blair by mouth Two times daily as needed for Constipation [facility] Lactulose 667 MG/ML Oral Solution lactulose (CHRONULAC ) solution 30 mL lactulose (CHRONULAC) solution 30 mL 05/21/2020 09:00:00 PM EST 30 mL Oral active 30 mL, Oral, Three Times Da aaron Standard, First dose on Wed05/21/20 at 2100, For 30 days
Titrate to 1 BM a day
[facility] Medication administered onsite Bisacodyl 5 MG Delayed Release Oral Tablet bisacodyl ( DULCOLAX) EC tablet 5 mg bisacodyl (DULCOLAX) EC tablet 5 mg 05/21/2020 05:22:50 PM EST 5 mg Oral active 5 mg, Oral, Daily NM N, Constipation, Starting Wed05/21/20 at 1722, For 30 days
Do not crush or chew
[facility] Medication administered onsite Tamsulosin hydrochloride 0.4 MG Oral Capsule tamsulosi n (FLOMAX) capsule 0.8 mg tamsulosin (FLOMAX) capsule 0.8 mg 05/21/2020 09:00:00 AM EST 0.8 mg Oral active 0.8 mg, Oral, Daily Standard, First dose (after last modification) on Wed05/21/20 at 0900, For 23 doses
Swallow whole. Do not crush, chew or open.
[facility] Medication administered onsite COVID-19 ad26 ([place]) vaccine intramuscular injection 0.5 mL [id number] 05/21/2020 09:00:00 AM EST 0.5 mL Intramuscular completed 0.5 mL, Intramuscular, Once, 05/21/20 at 0900, For 1 dose [facility] Medication administered onsite Magnesium Oxide 400 MG Oral Tablet Magne sium Oxide 400 (241.3 Mg) MG Oral Tablet (MAG-OX) Magnesium Oxide 400 (241.3 Mg) MG Oral Tablet (MAG-OX) 05/21/2020 12:00:00 AM EST 400 mg Oral active Take 1 t ablet by mouth daily [facility] Levothyroxine Sodium 0.088 MG Oral Table t Levothyroxine Sodium 88 MCG Oral Tablet (SYNTHROID) Levothyroxine Sodium 88 MCG Oral Tablet (SYNTHROID) 05/21/2020 12:00:00 AM EST 88 ug Oral active Take 1 tablet by mouth Daily [facility] Lidocaine 5 % External Patch (LIDODERM) 2306-2694-85 05/22/19 12:00:00 AM EST 1 {patch} Transdermal active Place 1 pa tch onto the skin daily 12 hours on 12 hours off [facility] torsemide 10 MG Oral Tablet Torsemide 10 MG Oral Table t (DEMADEX) Torsemide 10 MG Oral Tablet (DEMADEX) 05/21/2020 12:00:00 AM EST 50 mg Oral aborted Take 5 tablets by mouth daily [facility] POLYETHYLENE GLYCOL 3350 142 MG/ML Oral Solution Polyethylene Glycol 3350 17 GM Oral Packet (MIRALAX) Polyethylene Glycol 3350 17 GM Oral Packet (MIRALAX) 05/21/2020 12:00:00 AM EST 17 g Oral aborted Take 1 packet by mouth daily for 3 daysPlease substitute bottle for packets, if packets are unavailable. [facility] torsemide 100 MG Oral Tablet Torsemide 100 MG Oral Tab let (DEMADEX) Torsemide 100 MG Oral Tablet (DEMADEX) 05/21/2020 12:00:00 AM EST 50 mg Oral active Take 0.5 tablets by mouth daily [facility] pantoprazole 40 MG Delayed Release Oral Tablet Pantoprazole Sodium 40 MG Oral Tablet Delayed Release (PROTONIX) Pantoprazole Sodium 40 MG Oral Tablet De layed Release (PROTONIX) 05/21/2020 12:00:00 AM EST 40 mg Oral active Take 1 tablet by mouth daily [facility] gabapentin 100 MG Oral Capsule gabapentin (NEURONTIN) capsule 100 mg gabapentin (NEURONTIN) capsule 100 mg 05/20/2020 10:00:00 PM EST 100 mg Oral active 100 mg, Oral, Nightly, First dose on Wed05/20/20 at 2200, For 2 days [facility] Medication administered onsite lidocaine (XYLOCAINE) 2 % urojet 10 mL [id number] 11:15:00 AM EST 10 mL Urethral completed 10 mL, Urethr al, Once, Wed05/20/20 at 1115, For 1 dose [facility] Medication administered onsite POLYETHYLENE GLYCOL 3350 142 MG/ML Oral Solution polyethylene glycol (MIRALAX) packet 17 g polyethylene glycol (MIRALAX) packet 17 g 05/20/2020 0 9:00:00 AM EST 17 g Oral active 17 g, Or al, Daily Standard, First dose on Wed05/20/20 at 0900, For 30 days
Mix in 8 ounces of water, juice or milk. Avoid use in patients who require thickened liquids due to potential increased risk for aspiration.
[facility] Medication administered onsite valsartan 80 MG Oral Tablet valsartan (DIOVAN) tablet 160 mg valsartan (DIOVAN) tablet 160 mg 05/20/2020 09:00:00 AM EST 160 mg Oral acti ve 160 mg, Oral, Daily Standard, First dose (after last modification) on Wed05/20/20 at 0900, For 22 doses [facility] Medication administered onsite lidocaine (XYLOCAINE) 2 % urojet 10 mL [id number] 04:45:00 AM EST 10 mL Urethral completed 10 mL, Urethr al, Once, Wed05/20/20 at 0445, For 1 dose [facility] Medication administered onsite Hydralazine Hydrochloride 20 MG/ML Injec table Solution hydrALAZINE (APRESOLINE) injection 10 mg hydrALAZINE (APRESOLINE) injection 10 mg 05/20/2020 04 :30:00 AM EST 10 mg Intravenous completed 10 mg, Intravenous, Once, Wed05/20/20 at 0430, For 1 dose
Dilute in 25-50 ml normal saline. Administer over 30 minutes.
[facility] Medication administered onsite Diclofenac Sodium 0.01 MG/MG Topical Gel Diclofenac Sodium 1 % External Gel (VOLTAREN) Diclofenac Sodium 1 % External Gel (VOLTAREN) 05/21/19 12:00:00 AM EST 2 g Topical active Apply 2 g topically every 6 (six) hours as needed [facility] Acetaminophen 325 MG Oral Tablet Acetaminophen 325 MG Oral T ablet 05/20/2020 12:00:00 AM EST 650 mg Oral active Take 2 tablets by mouth every 6 (six) hours as needed for up to 10 days [facility] benzonatate 100 MG Oral Capsule benzonatate (TESSALON) capsule 100 mg benzonatate (TESSALON) capsule 100 mg 05/19/2020 11:29:36 PM EST 10 0 mg Oral active 100 mg, Oral, T hree Times Daily-PRN, Cough, Starting 05/19/20 at 2329, For 30 days
Swallow whole
[facility] Medication administered onsite valsartan 80 MG Oral Tablet valsartan (DIOVAN) tablet 80 mg valsartan (DIOVAN) tablet 80 mg 05/19/2020 01:15:00 PM EST 80 mg Oral compl eted 80 mg, Oral, Once, 05/19/20 at 1315, For 1 dose [facility] Medication administered onsite Carboxymethylcellulose Sodium 5 MG/ML Op hthalmic Solution carboxymethylcellulose PF (REFRESH PLUS) 0.5 % ophthalmic solution 1 drop carboxymethylcellulose PF (REFRESH PLUS) 0.5 % ophthalmic solution 1 drop 05/18/2020 07:56:00 PM EST 1 [drp] Both Eyes active 1 drop, Christiano th Eyes, Three Times Daily-PRN, Dry Eyes, Starting 05/18/20 at 1956, For 8 days 13 hours [facility] Medication administered onsite 168 HR Clonidine 0.01717 MG/HR Transderm al Patch cloNIDine (CATAPRES) 0.2 MG/24HR patch 1 patch cloNIDine (CATAPRES) 0.2 MG/24HR patch 1 patch 12:00:00 PM EST 1 {patch} Transdermal active 1 patch, Transdermal, Administer over 7 Days, Weekly, First dose (after last reorder) on [facility] 05/18/20 at 1200, For 1 dose [facility] Medication administered onsite 24 HR metoprolol succinate 50 MG Extende d Release Oral Tablet metoprolol (TOPROL-XL) 24 hr tablet 50 mg metoprolol (TOPROL-XL) 24 hr tablet 50 mg 05/18/2020 11:30:00 AM EST 50 mg Oral active 50 mg, Oral, Daily Standard, First dose on 05/18/20 at 1130, For 30 days
Do not crush or chew
[facility] Medication administered onsite Ceftriaxone 1000 MG Injection cefTRIAXone (ROCEPHIN) i nfusion 1 g (premix) cefTRIAXone (ROCEPHIN) infusion 1 g (premix) 05/18/2020 09:45:00 AM EST 1 g Intravenous completed 1 g, Intraven ous, at 100 mL/hr, Every 24 hours, First dose on [facility] 05/18/20 at 0945, For 3 days
Discouraged Uses: Empiric treatment of post-surgical meningitis (ceftazidime preferred)
[facility] Medication administered onsite Magnesium Oxide 400 MG Oral Tablet Magnesium Oxide (MA G-OX) tablet 400 mg Magnesium Oxide (MAG-OX) tablet 400 mg 05/18/2020 09:00:00 AM EST 4 00 mg Oral active 400 mg, Oral, D aily Standard, First dose on [facility] 05/18/20 at 0900, For 30 days [facility] Medication administered onsite Cyclobenzaprine hydrochloride 10 MG Oral Tablet cyclobenzaprine (FLEXERIL) tablet 5 mg cyclobenzaprine (FLEXERIL) tablet 5 mg 05/17/2020 11:15:00 PM ES T 5 mg Oral completed 5 mg, Oral, Once, Wed05/17/20 at 2315, For 1 dose [facility] Medication administered onsite Diclofenac Sodium 0.01 MG/MG Topical Gel diclofenac sodium (VOLTAREN) 1 % gel 2 g diclofenac sodium (VOLTAREN) 1 % gel 2 g 05/17/2020 10:48:30 PM EST 2 g Topical active 2 g, Topical, Every 6 hours PRN, Pain, Starting Wed05/17/20 at 2248, For 30 days
Apply to lower back as needed
[facility] Medication administered onsite Cyclobenzaprine hydrochloride 10 MG Oral Tablet cyclobenzaprine (FLEXERIL) tablet 5 mg cyclobenzaprine (FLEXERIL) tablet 5 mg 05/17/2020 02:30:00 PM ES T 5 mg Oral completed 5 mg, Oral, Once, Wed05/17/20 at 1430, For 1 dose [facility] Medication administered onsite lidocaine (LIDODERM) 5 % patch 1 patch [id number] 09:00:00 AM EST 1 {patch} Transdermal active 1 patch, T ransdermal, Daily Standard, First dose on Wed05/17/20 at 0900, For 30 days
Apply to lower back for pain 12 hours on - 12 hours off
Time to remove patch: 9:00 PM [facility] Medication administered onsite Hydroxyzine Hydrochloride 25 MG Oral Tablet hydrOXYzin e (ATARAX) tablet 25 mg hydrOXYzine (ATARAX) tablet 25 mg 05/17/2020 06:50:28 AM EST 25 mg Oral active 25 mg, Oral, Every 6 hours PRN, Itching, Starting Wed05/17/20 at 0650, For 30 days [facility] Medication administered onsite Oxycodone Hydrochloride 5 MG Oral Tablet oxyCODONE (ROXICODONE) immediate release tablet 2.5 mg oxyCODONE (ROXICODONE) immediate release tablet 2.5 mg 05/16/2020 10:45:00 PM EST 2.5 mg Oral completed 2.5 mg, Oral, Once, Wed05/16/20 at 2245, For 1 dose
Oxycodone immediate release is limited to 10 mg per dose. Higher doses ( only) require Pain Service consultation and approval.
[facility] Medication administered onsite sennosides, FDC 8.6 MG Oral Tablet senna tablet 2 tablet sen na tablet 2 tablet 05/16/2020 10:00:00 PM EST 2 {tbl} Oral active 2 tablet, Oral, Nightly, First dose on Wed05/16/20 at 2200, For 30 days [facility] Medication administered onsite 168 HR Clonidine 0.12944 MG/HR Transderm al Patch cloNIDine (CATAPRES) 0.2 MG/24HR patch 1 patch cloNIDine (CATAPRES) 0.2 MG/24HR patch 1 patch 021 08:00:00 PM EST 1 {patch} Transdermal aborted 1 patch, Transdermal, Administer over 7 Days, Weekly, First dose on [place] 05/16/20 at 2000, For 1 dose [facility] Medication administered onsite Acetaminophen 325 MG Oral Tablet acetaminophen (TYLENO L) tablet 650 mg acetaminophen (TYLENOL) tablet 650 mg 05/16/2020 12:30:00 PM EST 65 0 mg Oral completed 650 mg, Oral, O nce, [facility]i 05/16/20 at 1230, For 1 dose
Maximum daily dose of acetaminophen is 3,000 mg from all sources in 24 hours.
[facility] Medication administered onsite lidocaine (XYLOCAINE) 2 % urojet 10 mL [id number] 10:15:00 AM EST 10 mL Urethral completed 10 mL, Urethr al, Once, [facility] 05/16/20 at 1015, For 1 dose [facility] Medication administered onsite Docusate Sodium 100 MG Oral Capsule docusate sodium (C OLACE) capsule 100 mg docusate sodium (COLACE) capsule 100 mg 05/16/2020 09:00:00 AM EST 100 mg Oral active 100 mg, Oral, 2 Times Daily, First dose on [facility] 05/16/20 at 0900, For 30 days [facility] Medication administered onsite POLYETHYLENE GLYCOL 3350 142 MG/ML Oral Solution polyethylene glycol (MIRALAX) packet 17 g polyethylene glycol (MIRALAX) packet 17 g 05/16/2020 0 7:49:44 AM EST 17 g Oral active 17 g, Or al, Daily PRN, Other, constipation, Starting Leti 05/16/20 at 0749, For 30 days
Mix in 8 ounces of water, juice or milk. Avoid use in patients who require thickened liquids due to potential increased risk for aspiration.
[facility] Medication administered onsite clopidogrel 75 MG Oral Tablet Clopidogrel Bisulfate 75 MG Oral Tablet (PLAVIX) Clopidogrel Bisulfate 75 MG Oral Tablet (PLAVIX) 05/16/2020 12:00:00 AM EST 75 mg Oral active Take 1 tablet by mouth d [facility] apixaban 5 MG Oral Tablet apixaban (ELIQUIS) tablet 2. 5 mg apixaban (ELIQUIS) tablet 2.5 mg 05/15/2020 10:30:00 AM EST 2.5 mg Oral acti ve 2.5 mg, Oral, 2 Times Daily, First dose on Wed05/15/20 at 1030, For 30 days [facility] Medication administered onsite clopidogrel 75 MG Oral Tablet clopidogrel (PLAVIX) tab let 75 mg clopidogrel (PLAVIX) tablet 75 mg 05/15/2020 09:00:00 AM EST 75 mg Oral active 75 mg, Oral, Daily Standard, First dose on Wed05/15/20 at 0900, For 30 days [facility] Medication administered onsite lidocaine (XYLOCAINE) 2 % urojet 10 mL [id number] 06:30:00 AM EST 10 mL Urethral completed 10 mL, Urethr al, Once, Wed05/15/20 at 0630, For 1 dose [facility] Medication administered onsite Tamsulosin hydrochloride 0.4 MG Oral Capsule tamsulosi n (FLOMAX) capsule 0.4 mg tamsulosin (FLOMAX) capsule 0.4 mg 05/15/2020 02:45:00 AM EST 0.4 mg Oral aborted 0.4 mg, Oral, Daily Standard, First dose (after last modification) on Wed05/15/20 at 0245, For 30 days
Swallow whole. Do not crush, chew or open.
[facility] Medication administered onsite Ceftriaxone 1000 MG Injection cefTRIAXone (ROCEPHIN) i nfusion 1 g (premix) cefTRIAXone (ROCEPHIN) infusion 1 g (premix) 05/15/2020 02:30:00 AM EST 1 g Intravenous completed 1 g, Intraven ous, at 100 mL/hr, Every 24 hours, First dose on Wed05/15/20 at 0230, For 3 days
Discouraged Uses: Empiric treatment of post-surgical meningitis (ceftazidime preferred)
[facility] Medication administered onsite pantoprazole 40 MG Delayed Release Oral Tablet pantoprazole (PROTONIX) EC tablet 40 mg pantoprazole (PROTONIX) EC tablet 40 mg 05/14/2020 08:00:[address] 40 mg Oral active 40 mg, Ora l, Daily Standard, First dose (after last modification) on Wed05/14/20 at 2000, For 30 days
Do not crush or chew
[facility] Medication administered onsite Acetaminophen 325 MG Oral Tablet acetaminophen (TYLENO L) tablet 650 mg acetaminophen (TYLENOL) tablet 650 mg 05/14/2020 07:44:42 PM EST 65 0 mg Oral active 650 mg, Oral, E very 6 hours PRN, Mild Pain (Pain Scale Score 1- 3), Starting Wed05/14/20 at 1944, For 30 days
Maximum daily dose of acetaminophen is 3,000 mg from all sources in 24 hours.
[facility] Medication administered onsite 1 ML heparin sodium, porcine 1000 UNT/ML Injection heparin (porcine) 1000 units/mL injection 3,200 Units heparin (porcine) 1000 units/mL injectio n 3,200 Units 05/14/2020 04:12:26 PM EST 3200 U Intracatheter acti ve 3,200 Units, Intracatheter, PRN, Other, Post HD tx, to block HD cath ports, Starting Wed05/14/20 at 1612, For 10 days [facility] Medication administered onsite ondansetron (ZOFRAN) injection 4 mg [id number] 05/14/2020 03:00:0 0 PM EST 4 mg Intravenous completed 4 mg, In travenous, Once, Wed05/14/20 at 1500, For 1 dose [facility] Medication administered onsite clopidogrel 75 MG Oral Tablet clopidogrel (PLAVIX) tab let 75 mg clopidogrel (PLAVIX) tablet 75 mg 05/14/2020 10:30:00 AM EST 75 mg Oral completed 75 mg, Oral, Once, Wed05/14/20 at 1030, For 1 dose [facility] Medication administered onsite ondansetron (ZOFRAN) injection 4 mg [id number] 05/14/2020 10:15:0 0 AM EST 4 mg Intravenous completed 4 mg, In travenous, Once, Wed05/14/20 at 1015, For 1 dose [facility] Medication administered onsite lidocaine (LIDODERM) 5 % patch 1 patch [id number] 09:00:00 AM EST 1 {patch} Transdermal completed 1 patch, Transdermal, Daily Standard, First dose on Wed05/14/20 at 0900, For 3 days
Apply to lower back 12 hours on - 12 hours off
[facility] Medication administered onsite predniSONE (DELTASONE) tablet 50 mg 05/14/2020 09:00:00 AM EST 50 mg Oral completed 50 mg, Oral, Onc e, Wed05/14/20 at 0900, For 1 dose
Take with food.
[facility] Medication administered onsite torsemide 20 MG Oral Tablet torsemide (DEMADEX) tablet 50 mg torsemide (DEMADEX) tablet 50 mg 05/14/2020 09:00:00 AM EST 50 mg Oral acti ve 50 mg, Oral, Daily Standard, First dose on Wed05/14/20 at 0900, For 30 days [facility] Medication administered onsite diphenhydrAMINE (BENADRYL) injection 50 mg [id number] 05/14/2020 09:00:00 AM EST 50 mg Intravenous completed 50 mg, Intravenous, Once, Wed05/14/20 at 0900, For 1 dose [facility] Medication administered onsite predniSONE (DELTASONE) tablet 50 mg 05/14/2020 03:00:00 AM EST 50 mg Oral completed 50 mg, Oral, Onc e, Wed05/14/20 at 0300, For 1 dose
Take with food.
[facility] Medication administered onsite predniSONE (DELTASONE) tablet 50 mg 05/13/2020 09:00:00 PM EST 50 mg Oral completed 50 mg, Oral, Onc e, Wed05/13/20 at 2100, For 1 dose
Take with food.
[facility] Medication administered onsite Cephalexin 500 MG Oral Capsule cephALEXin (KEFLEX) cap blair 500 mg cephALEXin (KEFLEX) capsule 500 mg 05/13/2020 03:00:00 PM EST 500 mg Oral aborted 500 mg, Oral, Every 24 hours, First dos e (after last reorder) on Wed05/13/20 at 1500, For 5 days
(Ensure doses given after hemodialysis on dialysis days)
[facility] Medication administered onsite Lactulose 667 MG/ML Oral Solution lactulose (CHRONULAC ) solution 30 mL lactulose (CHRONULAC) solution 30 mL 05/13/2020 09:45:00 AM EST 30 mL Oral completed 30 mL, Oral, Three Times Daily Standard, First dose on Wed05/13/20 at 0945, For 1 dose [facility] Medication administered onsite Furosemide 40 MG Oral Tablet furosemide (LASIX) tablet 40 mg furosemide (LASIX) tablet 40 mg 05/13/2020 09:45:00 AM EST 40 mg Oral abort ed 40 mg, Oral, Daily Standard, First dose on Wed05/13/20 at 0945, For 30 days [facility] Medication administered onsite clopidogrel 75 MG Oral Tablet clopidogrel (PLAVIX) tab let 300 mg clopidogrel (PLAVIX) tablet 300 mg 05/13/2020 09:15:00 AM EST 300 mg Oral completed 300 mg, Oral, Once, Wed05/13/20 at 0915, For [address] [facility] Medication administered onsite valsartan 80 MG Oral Tablet valsartan (DIOVAN) tablet 80 mg valsartan (DIOVAN) tablet 80 mg 05/13/2020 09:00:00 AM EST 80 mg Oral abort ed 80 mg, Oral, Daily Standard, First dose (after last modification) on Wed05/13/20 at 0900, For 29 doses [facility] Medication administered onsite apixaban 5 MG Oral Tablet apixaban (ELIQUIS) tablet 2. 5 mg apixaban (ELIQUIS) tablet 2.5 mg 05/12/2020 11:15:00 AM EST 2.5 mg Oral abor nanda 2.5 mg, Oral, 2 Times Daily, First dose on 05/12/20 at 1115, For 30 days [facility] Medication administered onsite 24 HR metoprolol succinate 25 MG Extende d Release Oral Tablet metoprolol (TOPROL-XL) 24 hr tablet 25 mg metoprolol (TOPROL-XL) 24 hr tablet 25 mg 05/12/2020 09:00:00 AM EST 25 mg Oral aborted 25 mg, Oral, Daily Standard, First dose (after last modification) on 05/12/20 at 0900, For 30 days
Do not crush or chew
[facility] Medication administered onsite Aspirin 81 MG Chewable Tablet aspirin chewable tablet 81 mg aspirin chewable tablet 81 mg 05/12/2020 09:00:00 AM EST 81 mg Oral abort ed 81 mg, Oral, Every morning, First dose on 05/12/20 at 0900, For 4 days [facility] Medication administered onsite atorvastatin 40 MG Oral Tablet atorvastatin (LIPITOR) tablet 40 mg atorvastatin (LIPITOR) tablet 40 mg 05/12/2020 09:00:00 AM EST 40 mg Oral active 40 mg, Oral, Daily Standard, First dose on 05/12/20 at 0900, For 30 days [facility] Medication administered onsite valsartan 160 MG Oral Tablet valsartan (DIOVAN) tablet 160 mg valsartan (DIOVAN) tablet 160 mg 05/12/2020 09:00:00 AM EST 160 mg Oral abo rted 160 mg, Oral, Daily Standard, First dose on 05/12/20 at 0900, For 30 days [facility] Medication administered onsite Hydroxyzine Hydrochloride 25 MG Oral Tablet hydrOXYzin e (ATARAX) tablet 25 mg hydrOXYzine (ATARAX) tablet 25 mg 05/12/2020 05:30:00 AM EST 25 mg Oral completed 25 mg, Oral, Once, 05/12/20 a t 0530, For 1 dose [facility] Medication administered onsite torsemide 20 MG Oral Tablet torsemide (DEMADEX) tablet 50 mg torsemide (DEMADEX) tablet 50 mg 05/11/2020 09:00:00 PM EST 50 mg Oral abor nanda 50 mg, Oral, 2 Times Daily, First dose (after last modification) on 05/11/20 at 2100, For 3 days [facility] Medication administered onsite insulin lispro (HumaLOG) injection LOW DOSE EATING INS ULIN patients 1-8 Units [id number] 05/11/2020 06:00:00 PM EST U Subcutaneous active 1-8 Units, Subcutaneous, Three Times Daily-With Meals, First dose on 05/11/20 at 1800, For 30 days
Nursing MUST open the 'SQ Insulin Dosing Charts' Sidebar Report, or, the Patient Summary or Summary Report within the ED.
[facility] Medication administered onsite 500 ML heparin sodium, porcine 50 UNT/ML Injection heparin in NaCl 0.45 % infusion 50 units/mL heparin in NaCl 0.45 % infusion 50 units/mL 05/11/2020 05:15:00 PM EST 900 U/h Intravenous aborted 900 Units/hr (18 mL/hr), Intravenous, at 18 mL/hr, Continuous, Starting 05/11/20 at 1715, For 30 days
Heparin Individualized Non-Protocol.
[facility] Medication administered onsite magnesium sulfate in dextrose 5 % infusion (premix) 1 g [id number] -[id number] 05/11/2020 05:15:00 PM EST 1 g Intravenous completed 1 g, Intravenous, Administer over 60 Minutes, Once, 05/11/20 at 1715, For 1 dose [facility] Medication administered onsite 168 HR Clonidine 0.50987 MG/HR Transderm al Patch cloNIDine (CATAPRES) 0.2 MG/24HR patch 1 patch cloNIDine (CATAPRES) 0.2 MG/24HR patch 1 patch 04:45:00 PM EST 1 {patch} Transdermal aborted 1 patch, Transdermal, Administer over 7 Days, Weekly, First dose on 05/11/20 at 1645, For 30 days [facility] Medication administered onsite Levothyroxine Sodium 0.088 MG Oral Table t levothyroxine (SYNTHROID) tablet 88 mcg levothyroxine (SYNTHROID) tablet 88 mcg 05/11/2020 04:30:00 PM EST 88 ug Oral active 88 mcg, Oral, Daily at 0600, First dose on 05/11/20 at 1630, For 30 days [facility] Medication administered onsite Glucose 0.417 MG/MG Oral Gel glucose (GLUTOSE) 40 % or al gel 15 g glucose (GLUTOSE) 40 % oral gel 15 g 05/11/2020 04:14:29 PM EST 15 g Oral active 15 g, Oral, PRN, Low blood s ugar, for gluose 55-69 mg/dl and able to take PO, Starting 05/11/20 at 1614, For 30 days [facility] Medication administered onsite dextrose 50 % IV solution 25 mL [id number] 05/11/2020 04:14:[address] 25 mL Intravenous active 25 mL, Intrav enous, PRN, Other, blood glucose <55, Starting 05/11/20 at 1614, For 30 days
Not for midline administration.
[facility] Medication administered onsite Glucagon 1 MG Injection glucagon (human recombinant) ( GLUCAGEN) injection 1 mg glucagon (human recombinant) (GLUCAGEN) injection 1 mg 05/11/2020 04:14:29 PM EST 1 mg Intramuscular active 1 mg, Intramuscular, PRN, for glucose <55 without IV access, Starting 05/11/20 at 1614, For 30 days [facility] Medication administered onsite gabapentin 100 MG Oral Capsule Gabapentin 04/30/2020 12:00:00 AM EST ORAL completed [facility] valsartan 160 MG Oral Tablet Valsartan 04/30/2020 12:00:00 AM EST ORAL active [facility] ([facility]) pantoprazole 40 MG Delayed Release Oral Tablet Pantoprazole Sodium 04/30/2020 12:00:00 AM EST ORAL completed [facility] ([facility]) 0.2 mg/24 hr 04/26/2020 12:00:00 AM EST patch weekly 4 APPLY ONE PATCH WEEKLY , REMOVE OLD PATCH BEFORE APPLYING NEW PATCH APPLY ONE PATCH WEEKLY , REMOVE OLD PATCH BEFORE APPLYING NEW PATCH SOLD: 08/01/2020 [facility] 0.2 mg/24 hr 04/26/2020 12:00:00 AM EST patch weekly 4 APPLY ONE PATCH WEEKLY , REMOVE OLD PATCH BEFORE APPLYING NEW PATCH APPLY ONE PATCH WEEKLY , REMOVE OLD PATCH BEFORE APPLYING NEW PATCH SOLD: 07/03/2020 [facility] 0.2 mg/24 hr 04/26/2020 12:00:00 AM EST [...] A DAY SOLD: 03/22/2020 [facility] 33 gauge 03/22/2020 12:00:00 AM EST misc 400 DIRECTED TO TEST FOUR TIMES A DAY DIRECTED TO TEST FOUR TIMES A DAY SOLD: 03/22/2020 [facility] BLOOD SUGAR DIAGNOSTIC 03/22/2020 12:00:00 AM EST strip 400 DIRECTED TO TEST BLOOD SUGAR FOUR TIMES A DAY DIRECTED TO TEST BLOOD SUGAR FOUR YANIAR ES A DAY SOLD: 12/03/2020 [facility] 33 gauge 03/22/2020 12:00:00 AM EST misc 400 DIRECTED TO TEST FOUR TIMES A DAY DIRECTED TO TEST FOUR TIMES A DAY SOLD: 12/03/2020 [facility] Onetouch Delica Plus Lancets Extra Fine 33G 03/22/2020 12:00 :00 AM EST active [facility] ([facility] Onetouch Verio 03/22/2020 12:00:00 AM EST act shey [facility] ([facility] montelukast 10 MG Oral Tablet Montelukast Sodium 03/22/2020 12:00:00 AM EST completed [facility] ([facility] montelukast 10 MG Oral Tablet MONTELUKAST SODIUM 03/22/2020 12:0 0:00 AM EST tablet 30 TAKE ONE TABLET BY MOUTH AT BEDT KELLIE TAKE ONE TABLET BY MOUTH AT BEDTIME SOLD: 03/22/2020 [facility] valsartan 160 MG Oral Tablet Valsartan 160 MG Oral Tab let (DIOVAN) Valsartan 160 MG Oral Tablet (DIOVAN) 03/13/2020 12:00:00 AM EST 160 mg Oral active Take 160 mg by mouth [facility] 160 mg 03/13/2020 12:00:00 AM EST tablet 90 TAKE ONE TABLET BY MOUTH EVERY DAY TAKE ONE TABLET BY MOUTH EVERY DAY SOLD: 03/13/2020 [facility] torsemide 100 MG Oral Tablet Torsemide 100 MG Oral Tab let (DEMADEX) Torsemide 100 MG Oral Tablet (DEMADEX) 03/03/2020 12:00:00 AM EST 50 mg Oral aborted Take 50 mg by mouth [facility] 100 mg 02/26/2020 12:00:00 AM EST capsule [...] TABLET BY MOUTH TWICE A DAY SOLD: 07/27/2020 [facility] 2.5 mg 01/15/2020 12:00:00 AM [...] HOURS OFF SOLD: 01/09/2020 [facility] 5 % 01/09/2020 12:00:00 AM EDT adhesive patch,medicate d 46 APPLY TWO PATCHES TOPICALLY TO THE SKIN DIRECTED, 12 HOURS ON AND THEN 12 HOURS OFF APPLY TWO PATCHES TOPICALLY TO THE SKIN DIRECTED, 12 HOURS ON AND THEN 12 HOURS OFF SOLD: 08/26/2020 [facility] 5 % 01/09/2020 12:00:00 AM EDT adhesive patch,medicate d 174 APPLY TWO PATCHES TOPICALLY TO THE SKIN DIRECTED, 12 HOURS ON AND THEN 12 HOURS OFF APPLY TWO PATCHES TOPICALLY TO THE SKIN DIRECTED, 12 HOURS ON AND THEN 12 HOURS OFF SOLD: 10/04/2020 [facility] 150 mg 12/31/2019 12:00:00 [...] MOUTH EVERY DAY SOLD: 12/08/2019 [facility] 88 mcg 12/07/2019 12:00:00 AM EDT tablet 90 TAKE ONE TABLET BY MOUTH EVERY DAY TAKE ONE TABLET BY MOUTH EVERY DAY SOLD: 03/06/2020 [facility] 88 mcg 12/07/2019 12:00:00 AM EDT tablet 90 TAKE ONE TABLET BY MOUTH EVERY DAY TAKE ONE TABLET BY MOUTH EVERY DAY SOLD: 08/16/2020 [facility] 100 mg 12/07/2019 12:00:00 AM EDT tablet 90 TAKE ONE TABLET BY MOUTH EVERY DAY WITH FOOD TAKE ONE TABLET BY MOUTH EVERY DAY WITH FOOD SOLD: 03/06/2020 [facility] 100 mg 12/07/2019 12:00:00 AM EDT tablet 90 TAKE ONE TABLET BY MOUTH EVERY DAY WITH FOOD TAKE ONE TABLET BY MOUTH EVERY DAY WITH FOOD SOLD: 12/08/2019 [facility] atorvastatin 40 MG Oral Tablet [...] TWICE A DAY SOLD: 11/24/2019 [facility] 100 mg 11/23/2019 12:00:00 AM EDT tablet 90 TAKE 1/2 TABLET BY MOUTH TWICE A DAY TAKE 1/2 TABLET BY MOUTH TWICE A DAY SOLD: 03/06/2020 [facility] Tamsulosin hydrochloride 0.4 MG Oral Cap blair Tamsulosin HCl 0.4 MG Oral Capsule (FLOMAX) Tamsulosin HCl 0.4 MG Oral Capsule (FLOMAX) 10/25/2019 12:00 :00 AM EDT 0.4 mg Oral aborted Take 1 capsule b y mouth daily [facility] sennosides, FDC 8.6 MG Oral Tablet Senna 8.6 MG Oral T ablet Senna 8.6 MG Oral Tablet 10/25/2019 12:00:00 AM EDT 2 {tbl} Oral aborted Take 2 tablets by mouth nightly as needed [facility] Furosemide 40 MG Oral Tablet Furosemide 40 MG Oral Tab let (LASIX) Furosemide 40 MG Oral Tablet (LASIX) 10/25/2019 12:00:00 AM EDT 60 mg Oral aborted Take 1.5 tablets by mouth Two Times Daily [facility] pantoprazole 40 MG Delayed Release Oral Tablet pantoprazole (PROTONIX) EC tablet 40 mg pantoprazole (PROTONIX) EC tablet 40 mg 10/24/2019 09:00:00 AM E DT 40 mg Oral active 40 mg, Ora l, Daily Standard, First dose on Wed10/24/19 at 0900, For 30 days
Do not crush or chew
[facility] Medication administered onsite Docusate Sodium 100 MG Oral Capsule docusate sodium (C OLACE) capsule 100 mg docusate sodium (COLACE) capsule 100 mg 10/24/2019 09:00:00 AM EDT 100 mg Oral active 100 mg, Oral, 2 Times Daily, First dose on Wed10/24/19 at 0900, For 30 days [facility] Medication administered onsite sennosides, FDC 8.6 MG Oral Tablet senna tablet 2 tablet sen na tablet 2 tablet 10/24/2019 07:57:59 AM EDT 2 {tbl} Oral active 2 tablet, Oral, Nightly PRN, Constipation, Starting Wed10/24/19 at 0757, For 30 days [facility] Medication administered onsite Simethicone 80 MG Chewable Tablet simethicone (MYLICON ) chewable tablet 80 mg simethicone (MYLICON) chewable tablet 80 mg 10/24/2019 12:46:12 AM EDT 80 mg Oral active 80 mg, Oral, E very 6 hours PRN, Flatulence, Starting Wed10/24/19 at 0046, For 30 days [facility] Medication administered onsite 168 HR Clonidine 0.35739 MG/HR Transderm al Patch cloNIDine 0.2 MG/24HR Transdermal Patch Weekly (CATAPRES) cloNIDine 0.2 MG/24HR Transdermal Patch Weekly (CATAPRES) 10/22/2019 12:00:00 AM EDT 1 {patch} Transdermal active Place 1 patch onto the skin once a week [facility] 0.1 mg/24 hr 09/27/2019 12:00:00 AM EDT patch weekly 4 APPLY 1 PATCH EVERY WEEK REMOVE OLD PATCH BEFORE APPLYING NEW PATCH APPLY 1 PATCH EVERY WEEK REMOVE OLD PATCH BEFORE APPLYING NEW PATCH SOLD: 12/14/2019 [facility] 12 % 07/19/2019 12:00:00 AM EDT cream 140 APPLY TO FEET TWO TIMES A DAY APPLY TO FEET TWO TIMES A DAY SOLD: 12/26/2019 [facility] BLOOD SUGAR DIAGNOSTIC 05/02/2019 12:00:00 AM EST strip 450 USE TO TEST BLOOD GLUCOSE 5 TIMES DAILY USE TO TEST BLOOD GLUCOSE 5 TIMES DAILY SOLD: 11/28/2019 [facility] 33 gauge 05/02/2019 12:00:00 AM EST misc 500 USE TO TEST BLOOD GLUCOSE 5 TIMES DAILY USE TO TEST BLOOD GLUCOSE 5 TIMES DAILY SOLD: 11/28/2019 [facility] KAMARI VERIO test strip 21093-975-38 02/15/2018 12:00:[address] [facility] KAMARI DELSTEVEN LANCETS [address] [facility] [id number] 02/15/2018 12:00:[address] [facility] Allopurinol 300 MG Oral Tablet allopurinol (ZYLOPRIM) 300 MG tablet allopurinol (ZYLOPRIM) 300 MG tablet 01/17/2018 12:00:00 AM EST 300 mg Oral aborted Take 300 mg by mouth daily [facility] BD PEN NEEDLE GURPREET U/F 32G X [address] [facility] [id number] 01/06/2018 12:0 0:00 AM EDT aborted FOUR TIMES A DAY [facility] Mupirocin 0.02 MG/MG Topical Ointment mupirocin (BACTR OBAN) 2 % ointment mupirocin (BACTROBAN) 2 % ointment 12/03/2017 12:00:00 AM EDT aborted Apply to affected area twice a day. [facility] 3 ML Insulin Glargine 100 UNT/ML Pen Inj rebeca insulin glargine (BASAGLAR KWIKPEN) 100 UNIT/ML pen insulin glargine (BASAGLAR KWIKPEN) 100 UNIT/ML pen 35 U Subcutaneous aborted Inject 35 U nits into the skin daily [facility] Venofer 20 MG/ML Intravenous Solution (iron sucrose) 9413-6801-89 50 mg Intravenous aborted Inject 50 mg into the vein Every at dialysis only. [facility] Calcitriol 0.20074 MG Oral Capsule Calcitriol 0.25 MCG Oral Capsule (ROCALTROL) Calcitriol 0.25 MCG Oral Capsule (ROCALTROL) 0.25 ug Oral aborted Take 0.25 mcg by mouth 3 (three) times a week on Wednesday, and Wednesday at dialysis only. [facility] gabapentin 100 MG Oral Capsule Gabapentin 100 MG Oral Capsule (NEURONTIN) Gabapentin 100 MG Oral Capsule (NEURONTIN) 100 mg Oral aborted Take 100 mg by mouth Two Times Daily [facility] Alprazolam 0.5 MG Oral Tablet ALPRAZolam 0.5 MG Oral T ablet (XANAX) ALPRAZolam 0.5 MG Oral Tablet (XANAX) 0.5 mg Oral aborted Take 0.5 mg by mouth Two times daily as needed Max daily of 2 tablets. [facility] Levothyroxine Sodium 0.088 MG Oral Table t Levothyroxine Sodium 88 MCG Oral Tablet (SYNTHROID) Levothyroxine Sodium 88 MCG Oral Tablet (SYNTHROID) 88 ug Oral aborted Take 88 mcg by mouth gina ly [facility] 0.3 ML Methoxy polyethylene glycol-epoet in beta 0.167 MG/ML Prefilled Syringe [Mircera] Mircera 50 MCG/0.3ML Injection Solution Prefilled Syringe (Methoxy PEG-Epoetin Beta) Mircera 50 MCG/0.3ML Injection Solution Prefilled Syringe (Methoxy PEG-Epoetin Beta) 50 ug Injection aborted Inject 50 mcg as directed every 28 (twenty-eight) days at dialysis only. [facility] torsemide 100 MG Oral Tablet Torsemide 100 MG Oral Tab let (DEMADEX) Torsemide 100 MG Oral Tablet (DEMADEX) 50 mg Oral aborted Take 50 mg by mouth Two Times Daily [facility] Lidocaine 5 % External Patch (LIDODERM) 8134-3984-20 2 {patch} Transdermal aborted Place 2 patches onto the skin as directed 12 hours on 12 hours off. [facility] Allopurinol 100 MG Oral Tablet Allopurinol 100 MG Oral Tablet (ZYLOPRIM) Allopurinol 100 MG Oral Tablet (ZYLOPRIM) 100 mg Oral aborted Take 100 mg by mouth daily with food. [facility] latanoprost 0.05 MG/ML Ophthalmic Soluti on latanoprost (XALATAN) 0.005 % ophthalmic solution latanoprost (XALATAN) 0.005 % ophthalmic solution 1 [drp] Both Eyes aborted Place 1 drop into both eyes nightly [facility] Multiple Vitamin (MULTIVITAMIN) tablet 9282-1172-89 1 {t bl} Oral aborted Take 1 tablet by mouth daily [facility] Docusate Sodium 100 MG Oral Capsule docusate sodium (C OLACE) 100 MG capsule docusate sodium (COLACE) 100 MG capsule 100 mg Oral aborted Take 100 mg by mouth Two Times Daily [facility] Ergocalciferol 79870 UNT Oral Capsule vi tamin D (ERGOCALCIFEROL) 33752 units capsule vitamin D (ERGOCALCIFEROL) 14204 units capsule 23543 U O ral aborted Take 50,000 Units by mouth once a week [facility] POLYETHYLENE GLYCOL 3350 142 MG/ML Oral Solution polyethylene glycol (MIRALAX) powder polyethylene glycol (MIRALAX) powder 17 g Oral aborted Take 17 g by mouth in 4oz to 8oz of liquid daily as needed. [facility] lidocaine (LIDODERM) 5 % 8148-2061-09 aborted Apply to affected area(s) on skin for 12 hours on and 12 hours off. [facility] potassium chloride SA (K-DUR,KLOR-CON) 10 MEQ tablet 95275-384-53 10 meq Oral aborted Take 10 mEq by mouth Two Times Daily [facility] Isosorbide Dinitrate 10 MG Oral Tablet i sosorbide dinitrate (ISORDIL) 10 MG tablet isosorbide dinitrate (ISORDIL) 10 MG tablet 10 mg Oral aborted Take 10 mg by mouth Two Times Daily [facility] glimepiride 4 MG Oral Tablet glimepiride (AMARYL) 4 MG tablet glimepiride (AMARYL) 4 MG tablet 4 mg Oral aborted Take 4 mg by mouth Two Times Daily [facility] Aspirin 81 MG Oral Tablet aspirin 81 MG tablet aspirin 81 MG tablet 81 mg Oral aborted Take 81 mg by mouth every morning [facility] 24 HR metoprolol succinate 50 MG Extende d Release Oral Tablet metoprolol (TOPROL-XL) 50 MG 24 hr tablet metoprolol (TOPROL-XL) 50 MG 24 hr tablet 50 mg Oral aborted Take 50 mg by mouth [facility] Insurance Providers Payer name Policy type / Coverage type Policy ID Covered alliance party ID Covered alliance party's relationship to flores Policy Flores Plan Information AMER PROG TODAYS OPTIONS G [id number] Self [id number] WELLCARE MEDICARE HMO G [id number] Self [id number] Medicare [place] Medigap Part B [id number] Self Today's Options PFFS Commercial [id number] 2.840.1.047005.3. [id number] Self [id number] Today's Options PFFS Commercial [id number] 2.840.1.456258.3. [id number] Self [id number] Today's Options PFFS Commercial [id number] 2.0.1.504796.3. 227.99.572.2978.0 Self [id number] Today's Options PFFS Commercial [id number] Self [id number] Today's Options PFFS Commercial [id number] 2..1.787140.3. 227.99.572.2978.0 Self [id number] Today's Options PFFS Commercial [id number] 2..1.178317.3. 227.99.572.2978.0 Self [id number] Today's Options PFFS Commercial [id number] 2..1.644125.3. 227.99.572.2978.0 Self [id number] Today's Options PFFS Commercial [id number] 2..1.649259.3. 227.99.572.2978.0 Self [id number] Today's Options PFFS Commercial [id number] 2..1.713355.3. 227.99.572.2978.0 Self [id number] Today's Options PFFS Commercial [id number] 2..1.968261.3. 227.99.572.2978.0 Self [id number] Today's Options PFFS Commercial [id number] 2..1.579729.3. 227.99.572.2978.0 Self [id number] Today's Options PFFS Commercial [id number] Self Today's Options PFFS Commercial [id number] 2..1.362544.3. 227.99.572.2978.0 Self [id number] Today's Options PFFS Commercial [id number] Self [id number] Today's Options PFFS Commercial [id number] 2..1.662985.3. 227.99.572.2978.0 Self [id number] Today's Options PFFS Commercial [id number] 2.16.840.1.902697.3. 227.99.572.2978.0 Self [id number] Today's Options PFFS Commercial [id number] 2.16840.1.455557.3. 227.99.572.2978.0 Self [id number] Today's Options PFFS Commercial [id number] 2.0.1.443083.3. 227.99.572.2978.0 Self [id number] Today's Options PFFS Commercial [id number] 2.0.1.170926.3. 227.99.572.2978.0 Self [id number] Today's Options PFFS Commercial [id number] Self [id number] Today's Options PFFS Commercial [id number] Self Today's Option Commercial [id number] 2.0.1.301315.3.227.99.936.1 7711.0 Self [id number] Today's Option Commercial [id number] Self Today's Option Medicare Commercial [id number] 2.0.1.279554.3.227.99.1767.6178.0 Self [id number] Today's Options Ppo Commercial [id number] 2.0.1.807864.3.2 27.99.572.2978.0 Self [id number] Today's Options Ppo Commercial [id number] 2.0.1.966566.3.2 27.99.572.2978.0 Self [id number] Today's Options Ppo Commercial [id number] 2.0.1.705819.3.2 27.99.572.2978.0 Self [id number] Today's Options Ppo Commercial [id number] 2.0.1.062137.3.2 27.99.572.2978.0 Self [id number] Today's Options Ppo Commercial [id number] 2.16840.1.020427.3.2 27.99.572.2978.0 Self [id number] Today's Options Ppo Commercial [id number] 2.16840.1.256504.3.2 27.99.572.2978.0 Self [id number] Today's Options Ppo Commercial [id number] 2.0.1.278173.3.2 27.99.572.2978.0 Self [id number] Today's Options Ppo Commercial [id number] 2.0.1.498121.3.2 27.99.572.2978.0 Self [id number] Today's Options Ppo Commercial [id number] 2.0.1.901379.3.2 27.99.572.2978.0 Self [id number] Today's Options Ppo Commercial [id number] 2.0.1.579102.3.2 27.99.572.2978.0 Self [id number] Today's Options Ppo Commercial [id number] 2.0.1.884394.3.2 27.99.572.2978.0 Self [id number] Today's Options Ppo Commercial [id number] Self [id number] Today's Options Ppo Commercial [id number] Self Today's Options Ppo Commercial [id number] 2.0.1.364065.3.2 27.99.572.2978.0 Self [id number] Today's Options Ppo Commercial [id number] 2.0.1.293155.3.2 27.99.572.2978.0 Self [id number] Today's Options Ppo Commercial [id number] Self [id number] Today's Options Ppo Commercial [id number] 2.0.1.993725.3.2 27.99.572.2978.0 Self [id number] Today's Options Ppo Commercial [id number] 2.16.840.1.073748.3.2 27.99.572.2978.0 Self [id number] Today's Options Ppo Commercial [id number] 2.16.840.1.993941.3.2 27.99.572.2978.0 Self [id number] TODAYS OPTIONS [id number] SP [id number] TODAYS OPTIONS [id number] SP [id number] Todays Options Commercial [id number] Self WELLCARE [id number] SP [id number] [employer] [id number] Rachel f [id number] Well[employer] Co. [id number] Rachel f [id number] OTHER B TRANSPLANT Self TRANSPLAN T MEDICARE [id number] SP [id number] WE[facility]CARE[facility] CO [id number] 18 [id number] WELLCARE [id number] SP [id number] "" [facility] None WELLCARE O [id number] S [id number] WELLCARE O [id number] S [id number] WELLCARE [id number] SP [id number] MEDICARE [id number] SP [id number] A [facility] CP DUAL COMP - FACILITY [id number] 18 [id number] Wellcare MCR - To Ppo Commercial [id number] Self [id number] Medicare (Part B) Medicare Primary [id number] Self [id number] Wellcare MCR - To Ppo Commercial [id number] Self [id number] Medicare (Part B) Medicare Primary [id number] Self [id number] TODAYS OPTIONS [id number] [place] [id number] Wellcare MCR - To Ppo Commercial [id number] 2.16.840.1 .108850.3.227.99.572.2978.0 Self [id number] Medicare (Part B) Medicare Primary [id number] 2.16.840.1.970464.3.227.99.572.2978.0 Self 06 [id number] Wellcare MCR - To Ppo Commercial [id number] 2.16.840.1 .780169.3.227.99.572.2978.0 Self [id number] Medicare (Part B) Medicare Primary [id number] 2.16.840.1.533060.3.227.99.572.2978.0 Self [id number] MEDICARE [id number] SP [id number] A TODAYS OPTIONS [id number] SP [id number] Medicare (Part B) Medicare Primary [id number] 2.16.840.1.031697.3.227.99.572.2978.0 Self 06 [id number] Medicare (Part B) Medicare Primary [id number] 2.16.840.1.995749.3.227.99.572.2978.0 Self 06 [id number] TODAYS OPTIONS/LUXEMBOURGER O [id number] S [id number] Medicare (Part B) Medicare Primary [id number] 2.16.840.1.210550.3.227.99.572.2978.0 Self 06 [id number] Medicare (Part B) Medicare Primary [id number] 2.16.840.1.742071.3.227.99.572.2978.0 Self 06 [id number] Medicare (Part B) Medicare Primary [id number] 2.16.840.1.686918.3.227.99.572.2978.0 Self 06 [id number] Medicare (Part B) Medicare Primary [id number] 2.16.840.1.559264.3.227.99.572.2978.0 Self 06 [id number] Medicare (Part B) Medicare Primary [id number] 2.16.840.1.667255.3.227.99.572.2978.0 Self 06 [id number] Medicare (Part B) Medicare Primary [id number] 2.16.840.1.185009.3.227.99.572.2978.0 Self 06 [id number] Medicare (Part B) Medicare Primary [id number] 2.16.840.1.231909.3.227.99.572.2978.0 Self 06 [id number] Medicare (Part B) Medicare Primary [id number] 2.16.840.1.000599.3.227.99.572.2978.0 Self 06 [id number] Medicare (Part B) Medicare Primary [id number] 2.16.840.1.877677.3.227.99.572.2978.0 Self 06 [id number] Medicare (Part B) Medicare Primary [id number] 2.16.840.1.386636.3.227.99.572.2978.0 Self 06 [id number] Medicare (Part B) Medicare Primary [id number] 2.16.840.1.193850.3.227.99.572.2978.0 Self 06 [id number] Medicare (Part B) Medicare Primary [id number] 2.16.840.1.578502.3.227.99.572.2978.0 Self 06 [id number] Medicare (Part B) Medicare Primary [id number] Self [facility] [id number] Self Medicare Medicare Primary [id number] Self WELLCARE [id number] SP [id number] Problems, Conditions, and Diagnoses Code Display Name Description Problem Type Effective Dates Data Source(s) R13.11 Dysphagia, oral phase DYSPHAGIA, ORAL PHASE Diagnosis 05/24/2020 12:00:00 AM EST PCC ([facility]) R26.2 Difficulty in walking, not elsewhere cla ssified DIFFICULTY IN WALKING, NOT ELSEWHERE CLASSIFIED Diagnosis 05/23/2020 12:00:00 AM EST PCC ([facility]) M62.81 Muscle weakness (generalized) MUSCLE WEAKNESS (GENERAL IZED) Diagnosis 05/23/2020 12:00:00 AM EST PCC ([facility]) I10 Essential (primary) hypertension ESSENTIAL (PRIMARY) H YPERTENSION Diagnosis 05/22/2020 12:00:00 AM EST PCC ([facility]) Z99.2 Dependence on renal dialysis DEPENDENCE ON RENAL DIALY SIS Diagnosis 05/22/2020 12:00:00 AM EST PCC ([facility]) E03.9 Hypothyroidism, unspecified HYPOTHYROIDISM, UNSPECIFIE D Diagnosis 05/22/2020 12:00:00 AM EST PCC ([facility]) T82.9XXD Unspecified complication of cardiac and vascular prosthetic device, implant and graft, subsequent encounter UNSPECIFIED COMPLICATION OF CARDIAC AND VASCULAR PROSTHETIC DEVICE, IMPLANT AND GRAFT, SUBSEQUENT ENCOUNTER Diagnosis 05/22/2020 12:00:00 AM EST PCC ([facility]) N18.9 Chronic kidney disease, unspecified CHRONIC KIDN EY DISEASE, UNSPECIFIED Diagnosis 05/22/2020 12:00:00 AM EST PCC ([facility]) N17.9 Acute kidney failure, unspecified ACUTE KIDNEY F AILURE, UNSPECIFIED Diagnosis 05/22/2020 12:00:00 AM EST PCC ([facility]) E87.70 Fluid overload, unspecified FLUID OVERLOAD, UNSPECIFIE D Diagnosis 05/22/2020 12:00:00 AM EST PCC ([facility]) N25.0 Renal osteodystrophy RENAL OSTEODYSTROPHY Diagnosis 05/22/2020 12:00:00 AM EST PCC ([facility]) E11.9 Type 2 diabetes mellitus without complic ations TYPE 2 DIABETES MELLITUS WITHOUT COMPLICATIONS Diagnosis 05/22/2020 12:00:00 AM EST PCC ([facility]) I48.91 Unspecified atrial fibrillation UNSPECIFIED ATRI AL FIBRILLATION Diagnosis 05/22/2020 12:00:00 AM EST PCC ([facility]) I25.10 Atherosclerotic heart diseas e of [place] coronary artery without angina pectoris ATHEROSCLEROTIC HEART DISEASE OF [place] CORONARY ARTERY WITHOUT ANGINA PECTORIS Diagnosis 05/22/2020 12:00:00 AM EST PCC ([facility] [place]) N18.6 End stage renal disease END STAGE RENAL DISEASE Diagno sis 05/22/2020 12:00:00 AM EST PCC ([facility]) Z20.822 CONTACT WITH AND (SUSPECTED) EXPOSURE TO COVID-19 CONTACT WITH AND (SUSPECTED) EXPOSURE TO COVID-19 Diagnosis 05/22/2020 12:00:00 AM EST PCC ([facility]) I21.4 Non-ST elevation (NSTEMI) myocardial inf arction NON-ST ELEVATION (NSTEMI) MYOCARDIAL INFARCTION Diagnosis 05/22/2020 12:00:00 AM EST PCC ([facility] [place]) R04.1 Hemorrhage from throat HEMORRHAGE FROM THROAT Diagnosi s 05/22/2020 12:00:00 AM EST PCC ([facility]) D63.1 Anemia in chronic kidney disease ANEMIA IN CHRON IC KIDNEY DISEASE Diagnosis 05/22/2020 12:00:00 AM EST PCC ([facility]) R11.0 Nausea NAUSEA Diagnosis 05/22/2020 12:00:00 AM ES T PCC ([facility]) R42 Dizziness and giddiness DIZZINESS AND GIDDINESS Diagno sis 05/22/2020 12:00:00 AM EST PCC ([facility]) Z95.1 Presence of aortocoronary bypass graft P RESENCE OF AORTOCORONARY BYPASS GRAFT Diagnosis 05/22/2020 12:00:00 AM EST PCC ([facility] [place]) K21.9 Gastro-esophageal reflux disease without esophagitis GASTRO-ESOPHAGEAL REFLUX DISEASE WITHOUT ESOPHAGITIS Diagnosis 05/22/2020 12:00:00 AM ES T PCC ([facility]) I21.4 Non-ST elevation (NSTEMI) myocardial inf arction Non-ST elevation (NSTEMI) myocardial infarction Diagnosis 05/11/2020 03:45:57 PM EST [facility] chest pain, ST elevation chest pain, ST elevation Diag nosis 05/11/2020 03:32:00 PM [facility] L84 Corns and callosities Corns and callosities Diagnosis 05/08/2020 01:58:00 PM EST [facility] I739 Peripheral vascular disease, unspecified Peripheral vascular disease, unspecified Diagnosis 05/08/2020 01:58:00 PM [facility] E1142 Type 2 diabetes mellitus with diabetic p 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 ) I21.4 Acute subendocardial infarction Acute subendocardial i nfarction Problem 06/12/2020 12:00:00 AM EDT [facility] ([facility]) I48.21 Permanent atrial fibrillation Permanent atrial fibrill ation Problem 05/01/2020 12:00:00 AM EST [facility] ([facility]) Surgeries/Procedures Procedure Description Date Indications Data Source(s) OFFICE OUTPATIENT VISIT 15 MINUTES 07/29/2020 12:00:00 AM EDT [facility] ([facility] OFFICE OUTPATIENT VISIT 25 MINUTES 07/26/2020 12:00:00 AM EDT [facility] ([facility] OFFICE OUTPATIENT VISIT 25 MINUTES 07/12/2020 12:00:00 AM EDT MED[facility] ([facility] OFFICE OUTPATIENT VISIT 25 MINUTES 06/14/2020 12:00:00 AM EDT MEDENT ([facility] ECG ROUTINE ECG W/LEAST 12 LDS W/I&R 06/12/2020 12:00: 00 AM EDT [facility] ([facility]) OFFICE OUTPATIENT VISIT 15 MINUTES 06/12/2020 12:00:00 AM EDT [facility] ([facility]) POCT GLUCOSE, DOCKED <td>POCT GLUCOSE, DOCKED</td ><td>Routine</td><td>05/22/2020 11:33 AM EST</td><td></td><td> </td> 05/22/2020 11:33:00 AM [facility] POCT GLUCOSE, DOCKED <td>POCT GLUCOSE, DOCKED</td ><td>Routine</td><td>05/22/2020 7:36 AM EST</td><td></td><td> </td> 05/22/2020 07:36:00 AM [facility] GLUCOSE QUANTITATIVE BLOOD XCPT REAGENT STRIP <td>POCT GLUCOSE, DOCKED</td><td>Routine</td><td>05/21/2020 9:01 PM EST</td><td></td><td> </td> 05/21/2020 09:01:00 PM [facility] GLUCOSE QUANTITATIVE BLOOD XCPT REAGENT STRIP <td>POCT GLUCOSE, DOCKED</td><td>Routine</td><td>05/21/2020 4:29 PM EST</td><td></td><td> </td> 05/21/2020 04:29:00 PM [facility] RESPIRATORY PATHOGEN PANEL <td>RESPIRATORY PATHOGEN PANEL</td><td>Routine</td><td>05/21/2020 12:40 PM EST</td><td></td><td> </td> 05/21/2020 12:40:00 PM [facility] COVID-19 PCR <td>COVID-19 PCR</td><td>Rou oneal</td><td>05/21/2020 12:40 PM EST</td><td></td><td> </td> 05/21/2020 12:40:00 PM [facility] GLUCOSE QUANTITATIVE BLOOD XCPT REAGENT STRIP <td>POCT GLUCOSE, DOCKED</td><td>Routine</td><td>05/21/2020 11:43 AM EST</td><td></td><td> </td> 05/21/2020 11:43:00 AM [facility] GLUCOSE QUANTITATIVE BLOOD XCPT REAGENT STRIP <td>POCT GLUCOSE, DOCKED</td><td>Routine</td><td>05/21/2020 7:31 AM EST</td><td></td><td> </td> 05/21/2020 07:31:00 AM [facility] BLOOD COUNT COMPLETE AUTO&AUTO DIFRNTL WBC COUNT <td>C BC AND DIFFERENTIAL</td><td>Timed</td><td>05/21/2020 3:20 AM EST</td><td></td><td> </td> 05/21/2020 03:20:00 AM [facility] BASIC METABOLIC PANEL CALCIUM TOTAL <td>BASIC METABOLI C PANEL</td><td>Routine</td><td>05/21/2020 3:20 AM EST</td><td></td><td> </td> 05/21/2020 03:20:00 AM [facility] GLUCOSE QUANTITATIVE BLOOD XCPT REAGENT STRIP <td>POCT GLUCOSE, DOCKED</td><td>Routine</td><td>05/20/2020 9:19 PM EST</td><td></td><td> </td> 05/20/2020 09:19:00 PM [facility] GLUCOSE QUANTITATIVE BLOOD XCPT REAGENT STRIP <td>POCT GLUCOSE, DOCKED</td><td>Routine</td><td>05/20/2020 4:32 PM EST</td><td></td><td> </td> 05/20/2020 04:32:00 PM [facility] GLUCOSE QUANTITATIVE BLOOD XCPT REAGENT STRIP <td>POCT GLUCOSE, DOCKED</td><td>Routine</td><td>05/20/2020 11:21 AM EST</td><td></td><td> </td> 05/20/2020 11:21:00 AM [facility] GLUCOSE QUANTITATIVE BLOOD XCPT REAGENT STRIP <td>POCT GLUCOSE, DOCKED</td><td>Routine</td><td>05/20/2020 7:26 AM EST</td><td></td><td> </td> 05/20/2020 07:26:00 AM [facility] BLOOD COUNT COMPLETE AUTO&AUTO DIFRNTL WBC COUNT <td>C BC AND DIFFERENTIAL</td><td>Routine</td><td>05/20/2020 5:23 AM EST</td><td></td><td> </td> 05/20/2020 05:23:00 AM [facility] BASIC METABOLIC PANEL CALCIUM TOTAL <td>BASIC METABOLI C PANEL</td><td>Routine</td><td>05/20/2020 4:10 AM EST</td><td></td><td> </td> 05/20/2020 04:10:00 AM [facility] GLUCOSE QUANTITATIVE BLOOD XCPT REAGENT STRIP <td>POCT GLUCOSE, DOCKED</td><td>Routine</td><td>05/19/2020 9:22 PM EST</td><td></td><td> </td> 05/19/2020 09:22:00 PM [facility] BLOOD COUNT COMPLETE AUTO&AUTO DIFRNTL WBC COUNT <td>C BC AND DIFFERENTIAL</td><td>Timed</td><td>05/19/2020 6:27 PM EST</td><td></td><td> </td> 05/19/2020 06:27:00 PM [facility] GLUCOSE QUANTITATIVE BLOOD XCPT REAGENT STRIP <td>POCT GLUCOSE, DOCKED</td><td>Routine</td><td>05/19/2020 4:24 PM EST</td><td></td><td> </td> 05/19/2020 04:24:00 PM [facility] GLUCOSE QUANTITATIVE BLOOD XCPT REAGENT STRIP <td>POCT GLUCOSE, DOCKED</td><td>Routine</td><td>05/19/2020 11:20 AM EST</td><td></td><td> </td> 05/19/2020 11:20:00 AM [facility] COVID-19 PCR <td>COVID-19 PCR</td><td>Rou oneal</td><td>05/19/2020 9:53 AM EST</td><td></td><td> </td> 05/19/2020 09:53:00 AM [facility] GLUCOSE QUANTITATIVE BLOOD XCPT REAGENT STRIP <td>POCT GLUCOSE, DOCKED</td><td>Routine</td><td>05/19/2020 7:17 AM EST</td><td></td><td> </td> 05/19/2020 07:17:00 AM [facility] BLOOD COUNT COMPLETE AUTO&AUTO DIFRNTL WBC COUNT <td>C BC AND DIFFERENTIAL</td><td>Timed</td><td>05/19/2020 6:10 AM EST</td><td></td><td> </td> 05/19/2020 06:10:00 AM [facility] BASIC METABOLIC PANEL CALCIUM TOTAL <td>BASIC METABOLI C PANEL</td><td>Routine</td><td>05/19/2020 6:10 AM EST</td><td></td><td> </td> 05/19/2020 06:10:00 AM [facility] GLUCOSE QUANTITATIVE BLOOD XCPT REAGENT STRIP <td>POCT GLUCOSE, DOCKED</td><td>Routine</td><td>05/18/2020 8:49 PM EST</td><td></td><td> </td> 05/18/2020 08:49:00 PM [facility] BLOOD COUNT COMPLETE AUTO&AUTO DIFRNTL WBC COUNT <td>C BC AND DIFFERENTIAL</td><td>Timed</td><td>05/18/2020 6:32 PM EST</td><td></td><td> </td> 05/18/2020 06:32:00 PM [facility] GLUCOSE QUANTITATIVE BLOOD XCPT REAGENT STRIP <td>POCT GLUCOSE, DOCKED</td><td>Routine</td><td>05/18/2020 4:21 PM EST</td><td></td><td> </td> 05/18/2020 04:21:00 PM [facility] GLUCOSE QUANTITATIVE BLOOD XCPT REAGENT STRIP <td>POCT GLUCOSE, DOCKED</td><td>Routine</td><td>05/18/2020 11:16 AM EST</td><td></td><td> </td> 05/18/2020 11:16:00 AM [facility] GLUCOSE QUANTITATIVE BLOOD XCPT REAGENT STRIP <td>POCT GLUCOSE, DOCKED</td><td>Routine</td><td>05/18/2020 10:03 AM EST</td><td></td><td> </td> 05/18/2020 10:03:00 AM [facility] GLUCOSE QUANTITATIVE BLOOD XCPT REAGENT STRIP <td>POCT GLUCOSE, DOCKED</td><td>Routine</td><td>05/18/2020 7:27 AM EST</td><td></td><td> </td> 05/18/2020 07:27:00 AM [facility] BLOOD COUNT COMPLETE AUTOMATED <td>CBC AND DIFFERENTIAL</td><td>Timed</td><td>05/18/2020 4:54 AM EST</td><td></td><td> </td> 05/18/2020 04:54:00 AM [facility] BASIC METABOLIC PANEL CALCIUM TOTAL <td>BASIC METABOLI C PANEL</td><td>Routine</td><td>05/18/2020 4:54 AM EST</td><td></td><td> </td> 05/18/2020 04:54:00 AM [facility] URNLS DIP STICK/TABLET REAGENT AUTO MICROSCOPY <td>URI NALYSIS WITH REFLEX URINE CULTURE</td><td>Routine</td><td>05/17/2020 11:14 PM EST</td><td></td><td> </td> 05/17/2020 11:14:00 PM [facility] CULTURE BCT ISOL&PRSMPTV ID ISOLATE EA URINE <td>URINE CULTURE</td><td>Routine</td><td>05/17/2020 11:14 PM EST</td><td></td><td> </td> 05/17/2020 11:14:00 PM [facility] GLUCOSE QUANTITATIVE BLOOD XCPT REAGENT STRIP <td>POCT GLUCOSE, DOCKED</td><td>Routine</td><td>05/17/2020 9:47 PM EST</td><td></td><td> </td> 05/17/2020 09:47:00 PM [facility] BLOOD COUNT COMPLETE AUTOMATED <td>CBC AND DIFFERENTIAL</td><td>Timed</td><td>05/17/2020 9:43 PM EST</td><td></td><td> </td> 05/17/2020 09:43:00 PM [facility] GLUCOSE QUANTITATIVE BLOOD XCPT REAGENT STRIP <td>POCT GLUCOSE, DOCKED</td><td>Routine</td><td>05/17/2020 4:52 PM EST</td><td></td><td> </td> 05/17/2020 04:52:00 PM [facility] GLUCOSE QUANTITATIVE BLOOD XCPT REAGENT STRIP <td>POCT GLUCOSE, DOCKED</td><td>Routine</td><td>05/17/2020 4:42 PM EST</td><td></td><td> </td> 05/17/2020 04:42:00 PM [facility] VASC LAB US DOPPLER LOWER EXTREMITY BILATERAL VENOUS C OMP [id number] <td>VASC LAB US DOPPLER LOWER EXTREMITY BILATERAL VENOUS COMP 62850</td><td>Routine</td><td>05/17/2020 4:27 PM EST</td><td></td><td> </td> 05/17/2020 04:27:00 PM [facility] XR CHEST FRONTAL ONLY [id number] <td>XR CHEST FRONTAL ONLY [id number]</td><td>STAT</td><td>05/17/2020 2:40 PM EST</td><td></td><td> </td> 05/17/2020 02:40:00 PM [facility] CULTURE BACTERIAL BLOOD AEROBIC W/ID ISOLATES <td>BLOO D CULTURE</td><td>Routine</td><td>05/17/2020 2:20 PM EST</td><td></td><td> </td> 05/17/2020 02:20:00 PM [facility] CULTURE BACTERIAL BLOOD AEROBIC W/ID ISOLATES <td>BLOO D CULTURE</td><td>Routine</td><td>05/17/2020 2:20 PM EST</td><td></td><td> </td> 05/17/2020 02:20:00 PM [facility] GLUCOSE QUANTITATIVE BLOOD XCPT REAGENT STRIP <td>POCT GLUCOSE, DOCKED</td><td>Routine</td><td>05/17/2020 11:23 AM EST</td><td></td><td> </td> 05/17/2020 11:23:00 AM [facility] GLUCOSE QUANTITATIVE BLOOD XCPT REAGENT STRIP <td>POCT GLUCOSE, DOCKED</td><td>Routine</td><td>05/17/2020 7:28 AM EST</td><td></td><td> </td> 05/17/2020 07:28:00 AM [facility] HEPARIN ASSAY <td>ANTI-XA UNFRACTIONATED H EPARIN LEVEL</td><td>Routine</td><td>05/17/2020 4:30 AM EST</td><td></td><td> </td> 05/17/2020 04:30:00 AM [facility] BLOOD COUNT COMPLETE AUTO&AUTO DIFRNTL WBC COUNT <td>C BC AND DIFFERENTIAL</td><td>Timed</td><td>05/17/2020 4:30 AM EST</td><td></td><td> </td> 05/17/2020 04:30:00 AM [facility] BASIC METABOLIC PANEL CALCIUM TOTAL <td>BASIC METABOLI C PANEL</td><td>Routine</td><td>05/17/2020 4:30 AM EST</td><td></td><td> </td> 05/17/2020 04:30:00 AM [facility] GLUCOSE QUANTITATIVE BLOOD XCPT REAGENT STRIP <td>POCT GLUCOSE, DOCKED</td><td>Routine</td><td>05/16/2020 9:51 PM EST</td><td></td><td> </td> 05/16/2020 09:51:00 PM [facility] MRA NECK W/O CONTRST MATERIAL <td>MR ANGIOGRAPHY NECK WITHOUT CONTRAST [id number]</td><td>Routine</td><td>05/16/2020 6:42 PM EST</td><td></td><td> </td> 05/16/2020 06:42:00 PM [facility] MRA HEAD W/O CONTRST MATERIAL <td>MR ANGIOGRAPHY HEAD WITHOUT CONTRAST [id number]</td><td>Routine</td><td>05/16/2020 6:42 PM EST</td><td></td><td> </td> 05/16/2020 06:42:00 PM [facility] BLOOD COUNT COMPLETE AUTO&AUTO DIFRNTL WBC COUNT <td>C BC AND DIFFERENTIAL</td><td>Timed</td><td>05/16/2020 5:35 PM EST</td><td></td><td> </td> 05/16/2020 05:35:00 PM [facility] GLUCOSE QUANTITATIVE BLOOD XCPT REAGENT STRIP <td>POCT GLUCOSE, DOCKED</td><td>Routine</td><td>05/16/2020 5:24 PM EST</td><td></td><td> </td> 05/16/2020 05:24:00 PM [facility] COVID-19 PCR <td>COVID-19 PCR</td><td>Rou oneal</td><td>05/16/2020 4:11 PM EST</td><td></td><td> </td> 05/16/2020 04:11:00 PM [facility] GLUCOSE QUANTITATIVE BLOOD XCPT REAGENT STRIP <td>POCT GLUCOSE, DOCKED</td><td>Routine</td><td>05/16/2020 3:40 PM EST</td><td></td><td> </td> 05/16/2020 03:40:00 PM [facility] GLUCOSE QUANTITATIVE BLOOD XCPT REAGENT STRIP <td>POCT GLUCOSE, DOCKED</td><td>Routine</td><td>05/16/2020 2:07 PM EST</td><td></td><td> </td> 05/16/2020 02:07:00 PM [facility] GLUCOSE QUANTITATIVE BLOOD XCPT REAGENT STRIP <td>POCT GLUCOSE, DOCKED</td><td>Routine</td><td>05/16/2020 12:27 PM EST</td><td></td><td> </td> 05/16/2020 12:27:00 PM [facility] GLUCOSE QUANTITATIVE BLOOD XCPT REAGENT STRIP <td>POCT GLUCOSE, DOCKED</td><td>Routine</td><td>05/16/2020 8:09 AM EST</td><td></td><td> </td> 05/16/2020 08:09:00 AM [facility] BLOOD COUNT COMPLETE AUTO&AUTO DIFRNTL WBC COUNT <td>C BC AND DIFFERENTIAL</td><td>Timed</td><td>05/16/2020 6:27 AM EST</td><td></td><td> </td> 05/16/2020 06:27:00 AM [facility] BASIC METABOLIC PANEL CALCIUM TOTAL <td>BASIC METABOLI C PANEL</td><td>Routine</td><td>05/16/2020 6:27 AM EST</td><td></td><td> </td> 05/16/2020 06:27:00 AM [facility] EKG 12-LEAD - CMAXX REPORT <td>EKG 12-LEAD - CMAXX REPORT</td><td></td><td>05/16/2020 1:13 AM EST</td><td></td><td></td> 05/16/2020 01:13:44 AM [facility] EKG 12-LEAD - CMAXX REPORT <td>EKG 12-LEAD - CMAXX REPORT</td><td></td><td>05/16/2020 1:13 AM EST</td><td></td><td></td> 05/16/2020 01:13:44 AM [facility] EKG 12-LEAD <td>EKG 12-LEAD</td><td>Rout ine</td><td>05/16/2020 1:13 AM EST</td><td></td><td> </td> 05/16/2020 01:13:44 AM [facility] GLUCOSE QUANTITATIVE BLOOD XCPT REAGENT STRIP <td>POCT GLUCOSE, DOCKED</td><td>Routine</td><td>05/15/2020 9:04 PM EST</td><td></td><td> </td> 05/15/2020 09:04:00 PM [facility] BLOOD COUNT COMPLETE AUTO&AUTO DIFRNTL WBC COUNT <td>C BC AND DIFFERENTIAL</td><td>Timed</td><td>05/15/2020 6:31 PM EST</td><td></td><td> </td> 05/15/2020 06:31:00 PM [facility] GLUCOSE QUANTITATIVE BLOOD XCPT REAGENT STRIP <td>POCT GLUCOSE, DOCKED</td><td>Routine</td><td>05/15/2020 5:17 PM EST</td><td></td><td> </td> 05/15/2020 05:17:00 PM [facility] GLUCOSE QUANTITATIVE BLOOD XCPT REAGENT STRIP <td>POCT GLUCOSE, DOCKED</td><td>Routine</td><td>05/15/2020 12:08 PM EST</td><td></td><td> </td> 05/15/2020 12:08:00 PM [facility] PLATELET AGGREGATION IN VITRO EACH AGENT <td>VERIFYNOW [id number]</td><td>Routine</td><td>05/15/2020 11:47 AM EST</td><td></td><td> </td> 05/15/2020 11:47:00 AM [facility] CREATINE KINASE TOTAL <td>CK</td><td>Routine</td>< td>05/15/2020 11:47 AM EST</td><td></td><td> </td> 05/15/2020 11:47:00 AM [facility] GLUCOSE QUANTITATIVE BLOOD XCPT REAGENT STRIP <td>POCT GLUCOSE, DOCKED</td><td>Routine</td><td>05/15/2020 8:26 AM EST</td><td></td><td> </td> 05/15/2020 08:26:00 AM [facility] BLOOD COUNT COMPLETE AUTO&AUTO DIFRNTL WBC COUNT <td>C BC AND DIFFERENTIAL</td><td>Timed</td><td>05/15/2020 3:59 AM EST</td><td></td><td> </td> 05/15/2020 03:59:00 AM [facility] BASIC METABOLIC PANEL CALCIUM TOTAL <td>BASIC METABOLI C PANEL</td><td>Routine</td><td>05/15/2020 3:59 AM EST</td><td></td><td> </td> 05/15/2020 03:59:00 AM [facility] URNLS DIP STICK/TABLET REAGENT AUTO MICROSCOPY <td>URI NALYSIS WITH REFLEX URINE CULTURE</td><td>Routine</td><td>05/14/2020 6:25 PM EST</td><td></td><td> </td> 05/14/2020 06:25:00 PM [facility] CULTURE BCT ISOL&PRSMPTV ID ISOLATE EA URINE <td>URINE CULTURE</td><td>Routine</td><td>05/14/2020 6:25 PM EST</td><td></td><td> </td> 05/14/2020 06:25:00 PM [facility] BLOOD COUNT COMPLETE AUTO&AUTO DIFRNTL WBC COUNT <td>C BC AND DIFFERENTIAL</td><td>Timed</td><td>05/14/2020 5:49 PM EST</td><td></td><td> </td> 05/14/2020 05:49:00 PM [facility] GLUCOSE QUANTITATIVE BLOOD XCPT REAGENT STRIP <td>POCT GLUCOSE, DOCKED</td><td>Routine</td><td>05/14/2020 5:24 PM EST</td><td></td><td> </td> 05/14/2020 05:24:00 PM [facility] GLUCOSE QUANTITATIVE BLOOD XCPT REAGENT STRIP <td>POCT GLUCOSE, DOCKED</td><td>Routine</td><td>05/14/2020 2:28 PM EST</td><td></td><td> </td> 05/14/2020 02:28:00 PM [facility] EKG 12-LEAD - CMAXX REPORT <td>EKG 12-LEAD - CMAXX REPORT</td><td></td><td>05/14/2020 2:23 PM EST</td><td></td><td></td> 05/14/2020 02:23:41 PM [facility] EKG 12-LEAD - CMAXX REPORT <td>EKG 12-LEAD - CMAXX REPORT</td><td></td><td>05/14/2020 2:23 PM EST</td><td></td><td></td> 05/14/2020 02:23:41 PM [facility] EKG 12-LEAD <td>EKG 12-LEAD</td><td>STAT </td><td>05/14/2020 2:23 PM EST</td><td></td><td> </td> 05/14/2020 02:23:41 PM [facility] TUBE ROOM CASHIER PROCEDURE <td>TUBE ROOM CASHIER PROCEDURE</td>< td>Routine</td><td>05/14/2020 2:00 PM EST</td><td></td><td> </td> 05/14/2020 02:00:34 PM [facility] COAGULATION TIME ACTIVATED <td>POCT ISTAT ACT</td><td> Routine</td><td>05/14/2020 12:11 PM EST</td><td></td><td> </td> 05/14/2020 12:11:00 PM [facility] COAGULATION TIME ACTIVATED <td>POCT ISTAT ACT</td><td> Routine</td><td>05/14/2020 11:36 AM EST</td><td></td><td> </td> 05/14/2020 11:36:00 AM [facility] HEART FLOW RESERV MEASURE,INIT VESSL [[id number]] <td>HEART FLOW RESERV MEASURE,INIT VESSL [[id number]]</td><td></td><td>05/14/2020 10:31 AM EST</td><td> angina</td><td></td> 05/14/2020 10:31:00 AM EST - 05/14/2020 01:43:00 PM [facility] PRQ TRLUML CORONARY STENT W/ANGIO ONE ART/BRNCH [[id number] ] <td>PRQ TRLUML CORONARY STENT W/ANGIO ONE ART/BRNCH [[id number]]</td><td></td><td>05/14/2020 10:31 AM EST</td><td> angina</td><td></td> 05/14/2020 10:31:00 AM EST - 05/14/2020 01:43:00 PM [facility] INTRAVASC US,HEART,1ST VESSEL [[id number]] <td>INTRAVASC US ,HEART,1ST VESSEL [[id number]]</td><td></td><td>05/14/2020 10:31 AM EST</td><td> angina</td><td></td> 05/14/2020 10:31:00 AM EST - 05/14/2020 01:43:00 PM [facility] PRQ TRLUML CORONARY ANGIOPLASTY ONE ART/BRANCH [[id number]] <td>PRQ TRLUML CORONARY ANGIOPLASTY ONE ART/BRANCH [[id number]]</td><td></td><td>05/14/2020 10:31 AM EST</td><td> angina</td><td></td> 05/14/2020 10:31:00 AM EST - 05/14/2020 01:43:00 PM [facility] L HRT ART/GRFT ANGIO <td>L HRT ART/GRFT ANGIO</td ><td></td><td>05/14/2020 10:31 AM EST</td><td> angina</td><td></td> 05/14/2020 10:31:00 AM EST - 05/14/2020 01:43:00 PM [facility] CARDIAC CATH PROCEDURE LOG <td>CARDIAC CATH PROCEDURE LOG</td><td></td><td>05/14/2020 9:59 AM EST</td><td></td><td></td> 05/14/2020 09:59:35 AM [facility] GLUCOSE QUANTITATIVE BLOOD XCPT REAGENT STRIP <td>POCT GLUCOSE, DOCKED</td><td>Routine</td><td>05/14/2020 8:08 AM EST</td><td></td><td> </td> 05/14/2020 08:08:00 AM [facility] HEPARIN ASSAY <td>ANTI-XA UNFRACTIONATED H EPARIN LEVEL</td><td>Routine</td><td>05/14/2020 3:45 AM EST</td><td></td><td> </td> 05/14/2020 03:45:00 AM [facility] PROTHROMBIN TIME <td>PROTIME INR</td><td>Rout ine</td><td>05/14/2020 3:45 AM EST</td><td></td><td> </td> 05/14/2020 03:45:00 AM [facility] BLOOD COUNT COMPLETE AUTO&AUTO DIFRNTL WBC COUNT <td>C BC AND DIFFERENTIAL</td><td>Timed</td><td>05/14/2020 3:45 AM EST</td><td></td><td> </td> 05/14/2020 03:45:00 AM [facility] BASIC METABOLIC PANEL CALCIUM TOTAL <td>BASIC METABOLI C PANEL</td><td>Routine</td><td>05/14/2020 3:45 AM EST</td><td></td><td> </td> 05/14/2020 03:45:00 AM [facility] GLUCOSE QUANTITATIVE BLOOD XCPT REAGENT STRIP <td>POCT GLUCOSE, DOCKED</td><td>Routine</td><td>05/13/2020 10:57 PM EST</td><td></td><td> </td> 05/13/2020 10:57:00 PM [facility] HEPARIN ASSAY <td>ANTI-XA UNFRACTIONATED H EPARIN LEVEL</td><td>Routine</td><td>05/13/2020 8:05 PM EST</td><td></td><td> </td> 05/13/2020 08:05:00 PM [facility] HEPARIN ASSAY <td>ANTI-XA UNFRACTIONATED H EPARIN LEVEL</td><td>Routine</td><td>05/13/2020 5:18 PM EST</td><td></td><td> </td> 05/13/2020 05:18:00 PM [facility] PROTHROMBIN TIME <td>PROTIME INR</td><td>Rout ine</td><td>05/13/2020 5:18 PM EST</td><td></td><td> </td> 05/13/2020 05:18:00 PM [facility] BLOOD COUNT COMPLETE AUTO&AUTO DIFRNTL WBC COUNT <td>C BC AND DIFFERENTIAL</td><td>Routine</td><td>05/13/2020 5:15 PM EST</td><td></td><td> </td> 05/13/2020 05:15:00 PM [facility] HEMOGLOBIN GLYCOSYLATED A1C <td>HEMOGLOBIN A1C</td><td>Routine</td><td>05/13/2020 5:15 PM EST</td><td></td><td> </td> 05/13/2020 05:15:00 PM [facility] GLUCOSE QUANTITATIVE BLOOD XCPT REAGENT STRIP <td>POCT GLUCOSE, DOCKED</td><td>Routine</td><td>05/13/2020 5:09 PM EST</td><td></td><td> </td> 05/13/2020 05:09:00 PM [facility] HEPARIN ASSAY <td>ANTI-XA UNFRACTIONATED H EPARIN LEVEL</td><td>Routine</td><td>05/13/2020 4:09 PM EST</td><td></td><td> </td> 05/13/2020 04:09:00 PM [facility] PROTHROMBIN TIME <td>PROTIME INR</td><td>Rout ine</td><td>05/13/2020 4:09 PM EST</td><td></td><td> </td> 05/13/2020 04:09:00 PM [facility] GLUCOSE QUANTITATIVE BLOOD XCPT REAGENT STRIP <td>POCT GLUCOSE, DOCKED</td><td>Routine</td><td>05/13/2020 12:50 PM EST</td><td></td><td> </td> 05/13/2020 12:50:00 PM [facility] VASC LAB US DOPPLER CAROTID BILATERAL COMP [id number] <td>V ASC LAB US DOPPLER CAROTID BILATERAL COMP [id number]</td><td>Routine</td><td>05/13/2020 12:04 PM EST</td><td></td><td> </td> 05/13/2020 12:04:00 PM [facility] GLUCOSE QUANTITATIVE BLOOD XCPT REAGENT STRIP <td>POCT GLUCOSE, DOCKED</td><td>Routine</td><td>05/13/2020 8:57 AM EST</td><td></td><td> </td> 05/13/2020 08:57:00 AM [facility] BLOOD COUNT COMPLETE AUTO&AUTO DIFRNTL WBC COUNT <td>C BC AND DIFFERENTIAL</td><td>Timed</td><td>05/13/2020 6:23 AM EST</td><td></td><td> </td> 05/13/2020 06:23:00 AM [facility] TROPONIN QUANTITATIVE <td>TROPONIN T</td><td>Routi ne</td><td>05/13/2020 6:23 AM EST</td><td></td><td> </td> 05/13/2020 06:23:00 AM [facility] BASIC METABOLIC PANEL CALCIUM TOTAL <td>BASIC METABOLI C PANEL</td><td>Routine</td><td>05/13/2020 6:23 AM EST</td><td></td><td> </td> 05/13/2020 06:23:00 AM [facility] GLUCOSE QUANTITATIVE BLOOD XCPT REAGENT STRIP <td>POCT GLUCOSE, DOCKED</td><td>Routine</td><td>05/12/2020 5:09 PM EST</td><td></td><td> </td> 05/12/2020 05:09:00 PM [facility] BLOOD COUNT COMPLETE AUTOMATED <td>CBC</td><td>STAT</t d><td>05/12/2020 12:50 PM EST</td><td></td><td> </td> 05/12/2020 12:50:00 PM [facility] GLUCOSE QUANTITATIVE BLOOD XCPT REAGENT STRIP <td>POCT GLUCOSE, DOCKED</td><td>Routine</td><td>05/12/2020 12:21 PM EST</td><td></td><td> </td> 05/12/2020 12:21:00 PM [facility] URNLS DIP STICK/TABLET REAGENT AUTO MICROSCOPY <td>URI NALYSIS WITH MICROSCOPIC</td><td>STAT</td><td>05/12/2020 10:28 AM EST</td><td></td><td> </td> 05/12/2020 10:28:00 AM [facility] BLOOD COUNT COMPLETE AUTOMATED <td>CBC</td><td>STAT</t d><td>05/12/2020 10:28 AM EST</td><td></td><td> </td> 05/12/2020 10:28:00 AM [facility] THYROID STIMULATING HORMONE TSH <td>TSH</td><td>Routin e</td><td>05/12/2020 9:48 AM EST</td><td></td><td> </td> 05/12/2020 09:48:00 AM [facility] GLUCOSE QUANTITATIVE BLOOD XCPT REAGENT STRIP <td>POCT GLUCOSE, DOCKED</td><td>Routine</td><td>05/12/2020 8:16 AM EST</td><td></td><td> </td> 05/12/2020 08:16:00 AM [facility] ECHO TTHRC R-T 2D W/WOM-MODE COMPL SPEC&COLR DOP <td>E CHOCARDIOGRAM 2D COMPLETE</td><td>Routine</td><td>05/12/2020 8:06 AM EST</td><td></td><td> </td> 05/12/2020 08:06:35 AM [facility] THROMBOPLASTIN TIME PARTIAL PLASMA/WHOLE BLOOD <td>PAR TIAL THROMBOPLASTIN TIME (PTT)</td><td>Timed</td><td>05/12/2020 6:38 AM EST</td><td></td><td> </td> 05/12/2020 06:38:00 AM [facility] PROTHROMBIN TIME <td>PROTIME INR</td><td>Rout ine</td><td>05/12/2020 6:38 AM EST</td><td></td><td> </td> 05/12/2020 06:38:00 AM [facility] BLOOD COUNT COMPLETE AUTO&AUTO DIFRNTL WBC COUNT <td>C BC AND DIFFERENTIAL</td><td>Routine</td><td>05/12/2020 6:38 AM EST</td><td></td><td> </td> 05/12/2020 06:38:00 AM [facility] MAGNESIUM <td>MAGNESIUM LEVEL</td><td> Routine</td><td>05/12/2020 6:38 AM EST</td><td></td><td> </td> 05/12/2020 06:38:00 AM [facility] BASIC METABOLIC PANEL CALCIUM TOTAL <td>BASIC METABOLI C PANEL</td><td>Routine</td><td>05/12/2020 6:38 AM EST</td><td></td><td> </td> 05/12/2020 06:38:00 AM [facility] GLUCOSE QUANTITATIVE BLOOD XCPT REAGENT STRIP <td>POCT GLUCOSE, DOCKED</td><td>Routine</td><td>05/11/2020 11:06 PM EST</td><td></td><td> </td> 05/11/2020 11:06:00 PM [facility] THROMBOPLASTIN TIME PARTIAL PLASMA/WHOLE BLOOD <td>PAR TIAL THROMBOPLASTIN TIME (PTT)</td><td>Timed</td><td>05/11/2020 10:54 PM EST</td><td></td><td> </td> 05/11/2020 10:54:00 PM [facility] TROPONIN QUANTITATIVE <td>TROPONIN T</td><td>Timed </td><td>05/11/2020 10:54 PM EST</td><td></td><td> </td> 05/11/2020 10:54:00 PM [facility] RESPIRATORY PATHOGEN PANEL <td>RESPIRATORY PATHOGEN PANEL</td><td>Routine</td><td>05/11/2020 6:11 PM EST</td><td></td><td> </td> 05/11/2020 06:11:00 PM [facility] COVID-19 PCR <td>COVID-19 PCR</td><td>Rou oneal</td><td>05/11/2020 6:11 PM EST</td><td></td><td> </td> 05/11/2020 06:11:00 PM [facility] HEPARIN ASSAY <td>ANTI-XA UNFRACTIONATED H EPARIN LEVEL</td><td>Routine</td><td>05/11/2020 6:09 PM EST</td><td></td><td> </td> 05/11/2020 06:09:00 PM [facility] GLUCOSE QUANTITATIVE BLOOD XCPT REAGENT STRIP <td>POCT GLUCOSE, DOCKED</td><td>Routine</td><td>05/11/2020 5:43 PM EST</td><td></td><td> </td> 05/11/2020 05:43:00 PM [facility] HEPATITIS B CORE ANTIBODY HBCAB IGM ANTIBODY <td>HEPAT ITIS B CORE ANTIBODY, IGM</td><td>Routine</td><td>05/11/2020 4:35 PM EST</td><td></td><td> </td> 05/11/2020 04:35:00 PM [facility] HEPATITIS B CORE ANTIBODY HBCAB TOTAL <td>HEPATITIS B CORE ANTIBODY, TOTAL</td><td>Routine</td><td>05/11/2020 4:35 PM EST</td><td></td><td> </td> 05/11/2020 04:35:00 PM [facility] HEPATITIS B SURF ANTIBODY HBSAB <td>HEPATITIS B SURFAC E ANTIBODY</td><td>Routine</td><td>05/11/2020 4:35 PM EST</td><td></td><td> </td> 05/11/2020 04:35:00 PM [facility] IAAD EIA HEPATITIS B SURFACE ANTIGEN <td>HEPATITIS B S URFACE ANTIGEN</td><td>Routine</td><td>05/11/2020 4:35 PM EST</td><td></td><td> </td> 05/11/2020 04:35:00 PM [facility] THROMBOPLASTIN TIME PARTIAL PLASMA/WHOLE BLOOD <td>PAR TIAL THROMBOPLASTIN TIME (PTT)</td><td>Routine</td><td>05/11/2020 4:34 PM EST</td><td></td><td> </td> 05/11/2020 04:34:00 PM [facility] CLOTTING FACTOR X ABBY-FEDERICO <td>FACTOR 10 ASSAY LEVEL</td><td>Routine</td><td>05/11/2020 4:34 PM EST</td><td></td><td> </td> 05/11/2020 04:34:00 PM [facility] BLOOD COUNT COMPLETE AUTO&AUTO DIFRNTL WBC COUNT <td>C BC AND DIFFERENTIAL</td><td>Routine</td><td>05/11/2020 4:34 PM EST</td><td></td><td> </td> 05/11/2020 04:34:00 PM [facility] TROPONIN QUANTITATIVE <td>TROPONIN T</td><td>Timed </td><td>05/11/2020 4:34 PM EST</td><td></td><td> </td> 05/11/2020 04:34:00 PM [facility] MAGNESIUM <td>MAGNESIUM LEVEL</td><td> Routine</td><td>05/11/2020 4:34 PM EST</td><td></td><td> </td> 05/11/2020 04:34:00 PM [facility] BASIC METABOLIC PANEL CALCIUM TOTAL <td>BASIC METABOLI C PANEL</td><td>Routine</td><td>05/11/2020 4:34 PM EST</td><td></td><td> </td> 05/11/2020 04:34:00 PM [facility] EKG 12-LEAD - CMAXX REPORT <td>EKG 12-LEAD - CMAXX REPORT</td><td></td><td>05/11/2020 3:47 PM EST</td><td></td><td></td> 05/11/2020 03:47:19 PM [facility] EKG 12-LEAD - CMAXX REPORT <td>EKG 12-LEAD - CMAXX REPORT</td><td></td><td>05/11/2020 3:47 PM EST</td><td></td><td></td> 05/11/2020 03:47:19 PM [facility] EKG 12-LEAD <td>EKG 12-LEAD</td><td>Rout ine</td><td>05/11/2020 3:47 PM EST</td><td></td><td> </td> 05/11/2020 03:47:19 PM [facility] EKG 12-LEAD - CMAXX REPORT <td>EKG 12-LEAD - CMAXX REPORT</td><td></td><td>05/11/2020 3:46 PM EST</td><td></td><td></td> 05/11/2020 03:46:38 PM [facility] EKG 12-LEAD - CMAXX REPORT <td>EKG 12-LEAD - CMAXX REPORT</td><td></td><td>05/11/2020 3:46 PM EST</td><td></td><td></td> 05/11/2020 03:46:38 PM [facility] EKG 12-LEAD <td>EKG 12-LEAD</td><td>Rout ine</td><td>05/11/2020 3:46 PM EST</td><td></td><td></td> 05/11/2020 03:46:38 PM EST [facility] EKG 12-LEAD <td>EKG 12-LEAD</td><td>Rout ine</td><td>05/11/2020 3:46 PM EST</td><td></td><td> </td> 05/11/2020 03:46:38 PM [facility] Pare Hyperkeratotic Lesion, Single 05/08/2020 12:00:00 AM EST [facility] ([facility]) Debridement Nails Any Method 6 Or More 05/08/2020 12:0 0:00 AM EST [facility] ([facility]) ECG ROUTINE ECG W/LEAST 12 LDS W/I&R 05/01/2020 12:00: 00 AM EST [facility] ([facility]) OFFICE OUTPATIENT VISIT 25 MINUTES 05/01/2020 12:00:00 AM EST [facility] ([facility]) Dialysis Circuit W/ Transluminal Balloon Angioplasty, Periph eral 01/19/2020 12:00:00 AM EST [facility] ([facility]) Moderate Sedation Services; Same Phys Intl 15 Mins; PT >= 5 Years 01/19/2020 12:00:00 AM EST [facility] ([facility]) MYOCARDIAL SPECT MULTIPLE STUDIES 11/27/2019 12:00:00 AM EDT [facility] ([facility]) CV STRS TST XERS&/OR RX CONT ECG PHYS SI&R 11/27/2019 12:00:00 AM EDT [facility] ([facility]) Results ID Date Data Source [id number] 10/29/2020 01:54:00 PM EDT [facility]) Name Value Range Interpretation Code Description Data Tere rce(s) Supporting Document(s) White Blood Count 3.7 4.0-10.0 [facility] ([facility]) Hemoglobin 10.2 13.5-17.5 [facility] ([facility]) Red Blood Count 3.36 4.30-6.10 [facility] ([facility]) Platelets 174 150-450 [facility] ([facility]) Hematocrit 31.8 42.0-52.0 [facility] ([facility]) ID Date Data Source [id number] 10/29/2020 01:54:00 PM EDT [facility] ([facility]) Name Value Range Interpretation Code Description Data Tere rce(s) Supporting Document(s) Magnesium Level 1.8 1.8-2.4 [facility] ([facility]) ID Date Data Source [id number] 10/29/2020 01:54:00 PM EDT [facility] ([facility]) Name Value Range Interpretation Code Description Data Tere rce(s) Supporting Document(s) Albumin [Mass/volume] in Serum or Plasma 3.0 [facility] ([facility]) Calcium [Mass/volume] in Serum or Plasma 8.4 [facility] ([facility]) Alanine aminotransferase [Enzymatic activity/volume] in Serum or Pl asma 18 [facility] ([facility]) Chloride [Moles/volume] in Serum or Plasma 105 [facility] ([facility]) Carbon dioxide, total [Moles/volume] in Serum or Plasma 8.4 [facility] ([facility]) Protein [Mass/volume] in Serum or Plasma 5.9 [facility] ([facility]) Potassium [Moles/volume] in Serum or Plasma 4.6 [facility] ([facility]) Alkaline phosphatase [Enzymatic activity/volume] in Serum or Plasma 9 7 [facility] ([facility]) Sodium 138 [facility] ([facility] Aspartate aminotransferase [Enzymatic activity/volume] in Serum or Plasma 11 [facility] ([facility]) Glucose 179 70-100 [facility] ([facility] Urea nitrogen [Mass/volume] in Serum or Plasma 68 [facility] ([facility]) Creatinine For GFR 5.45 [facility] ([facility]) ID Date Data Source [id number] 10/25/2020 01:44:00 PM EDT [facility] ([facility]) Name Value Range Interpretation Code Description Data Tere rce(s) Supporting Document(s) Magnesium Level 1.9 [facility] ([facility]) ID Date Data Source [id number] 10/25/2020 01:44:00 PM EDT [facility] ([facility]) Name Value Range Interpretation Code Description Data Tere rce(s) Supporting Document(s) Albumin [Mass/volume] in Serum or Plasma 3.1 [facility] ([facility]) Alanine aminotransferase [Enzymatic activity/volume] in Serum or Pl asma 21 [facility] ([facility]) Carbon dioxide, total [Moles/volume] in Serum or Plasma 26 [facility] ([facility]) Calcium [Mass/volume] in Serum or Plasma 9.2 [facility] ([facility]) Chloride [Moles/volume] in Serum or Plasma 107 [facility] ([facility]) Alkaline phosphatase [Enzymatic activity/volume] in Serum or Plasma 9 5 [facility] ([facility]) Potassium [Moles/volume] in Serum or Plasma 4.4 [facility] ([facility]) Sodium 140 [facility] ([facility]) Protein [Mass/volume] in Serum or Plasma 6.6 [facility] ([facility]) Urea nitrogen [Mass/volume] in Serum or Plasma 29 [facility] ([facility]) Aspartate aminotransferase [Enzymatic activity/volume] in Serum or Plasma 11 [facility] ([facility]) Glucose 183 70-100 [facility] ([facility]) Creatinine For GFR 3.06 [facility] ([facility]) ID Date Data Source [id number] 10/25/2020 01:44:00 PM EDT [facility] ([facility]) Name Value Range Interpretation Code Description Data Tere rce(s) Supporting Document(s) White Blood Count 3.3 4.0-10.0 [facility] ([facility]) Red Blood Count 3.36 4.30-6.10 [facility] ([facility]) Platelets 142 150-450 [facility] ([facility]) Hematocrit 32.2 42.0-52.0 [facility] ([facility]) Hemoglobin 10.2 13.5-17.5 [facility] ([facility]) ID Date Data Source [id number] 10/23/2020 10:52:00 AM EDT [facility] ([facility]) Name Value Range Interpretation Code Description Data Tere rce(s) Supporting Document(s) Albumin [Mass/volume] in Serum or Plasma 3.1 [facility] ([facility]) Calcium [Mass/volume] in Serum or Plasma 8.8 [facility] ([facility]) Alanine aminotransferase [Enzymatic activity/volume] in Serum or Pl asma 19 [facility] ([facility]) Chloride [Moles/volume] in Serum or Plasma 106 [facility] ([facility]) Carbon dioxide, total [Moles/volume] in Serum or Plasma 27 [facility] ([facility]) Potassium [Moles/volume] in Serum or Plasma 4.7 [facility] ([facility]) Alkaline phosphatase [Enzymatic activity/volume] in Serum or Plasma 6 8 [facility] ([facility]) Protein [Mass/volume] in Serum or Plasma 5.8 [facility] ([facility]) Sodium 140 [facility] ([facility]) Aspartate aminotransferase [Enzymatic activity/volume] in Serum or Plasma 11 [facility] ([facility]) Urea nitrogen [Mass/volume] in Serum or Plasma 83 [facility] ([facility]) Glucose 118 83-110 [facility] ([facility]) Creatinine For GFR 4.78 [facility] ([facility]) ID Date Data Source [id number] 10/23/2020 10:52:00 AM EDT [facility] ([facility] Name Value Range Interpretation Code Description Data Tere rce(s) Supporting Document(s) White Blood Count 4.3 5.0-10.0 [facility] ([facility]) Red Blood Count 3.28 4.00-5.40 [facility] ([facility]) Platelets 133 172-450 [facility] ([facility]) Hemoglobin 9.9 [facility] ([facility]) Hematocrit 31.3 [facility] ([facility]) ID Date Data Source [id number] 10/22/2020 05:05:00 PM EDT [facility] Name Value Range Interpretation Code Description Data Tere rce(s) Supporting Document(s) SARS coronavirus 2 RNA [Presence] in Res piratory specimen by MARI with probe detection NEGATIVE [facility] This lab was ordered by [facility] a nd reported by [facility]. ID Date Data Source [id number] 10/22/2020 02:12:00 PM EDT [facility] ([facility] Name Value Range Interpretation Code Description Data Tere rce(s) Supporting Document(s) CPK Creatine Phosphokinase 43 U/L 39-308 Jessica l (applies to non-numeric results) [facility] ([facility] ) CK-MB Value Mass Laboratory test result Normal ( applies to non-numeric results) [facility] ([facility] ) MB/CK Relative Index 2.33 Normal (applies to non-num milena results) [facility] <content>DIAGNOSIS CRITERIA</content>
<content>MMB ng/ml Relative Index (RI)</content>
<content>NON-AMI < or = 5 N/A</content>
<content>LANE ZONE > 5 < or = 4</content>
<content>AMI > 5 > 4</content>
<content></content> Troponin I 0.10 ng/mL Normal (applies to non-numeric resul ts) [facility] <content>Troponin I Reference Interval f or Siemens [place] LOCI:</content>
<content></content>
<content>99th Percentile= 0.00-0.045 ng/ml</content>
<content></content>
<content>Risk Stratification:</content>
<content><= 0.10 ng/ml Decreased Risk for Adverse Clinical</content>
<content>Events.</content>
<content>0.10-1.50 ng/ml Increased Risk for Adverse Clinical</content>
<content>Events. Evaluation of additional</content>
<content>criterion and/or repeat testing in 2-6</content>
<content>hours is suggested to rule out myocardial</content>
<content>damage.</content>
<content>>= 1.50 ng/ml Indicative of Myocardial Injury.</content>
<content></content> ID Date Data Source [id number] 10/22/2020 01:44:00 PM EDT [facility] ([facility] Name Value Range Interpretation Code Description Data Tere rce(s) Supporting Document(s) Glucose [Mass/volume] in Capillary blood by Glucometer 146 mg/dL 83-110 Above high normal [facility] ([facility] ID Date Data Source [id number] 10/22/2020 12:17:00 PM EDT [facility] ([facility] Name Value Range Interpretation Code Description Data Tere rce(s) Supporting Document(s) Glucose, Fasting 156 mg/dL 70-100 Above high normal [facility] ([facility] Blood Urea Nitrogen 80 mg/dL 7-18 Above high normal [facility] ([facility] Glomerular Filtration Rate 13.4 Below low normal [facility] ([facility] <content>Units are mL/min/1.73 m2</content>
<content></content>
<content>Chronic Kidney Disease Staging per NKF:</content>
<content></content>
<content>Stage I & II GFR >=60 Normal to Mildly Decreased</content>
<content>Stage III GFR 30- 59 Moderately Decreased</content>
<content>Stage IV GFR 15-29 Severely Decreased</content>
<content>Stage V GFR <15 Very Little GFR Left</content>
<content>ESRD GFR <15 on GLOBAL [employer]OR [employer] AND CLIMATE CHANGE</content>
<content></content> Creatinine For GFR 4.56 mg/dL 0.70-1.30 Above high normal [facility] ([facility] Sodium Level 140 meq/L 136-145 Normal (applies to non-numeric res ults) [facility] ([facility] Potassium Serum 4.4 meq/L 3.5-5.1 Normal (applies to non-numeric results) [facility] Chloride Level 105 meq/L 98-107 Normal (applies to non-numeric r esults) [facility] ([facility] Anion Gap 7 meq/L 8-16 Below low normal [facility] ( [facility] Carbon Dioxide Level 28 meq/L 21-32 Normal (applies to non-num milena results) [facility] ([facility] Calcium Level 8.8 mg/dL 8.8-10.2 Normal (applies to non-numeric re sults) [facility] ID Date Data Source [id number] 10/22/2020 12:17:00 PM EDT [facility] ([facility] Name Value Range Interpretation Code Description Data Tere rce(s) Supporting Document(s) Ast/Sgot 11 U/L 7-37 Normal (applies to non-numeric resul ts) [facility] ([facility] Alt/SGPT 21 U/L 12-78 Normal (applies to non-numeric resul ts) [facility] ([facility] Alkaline Phosphatase 77 U/L 45-117 Normal (applies to non-num milena results) [facility] ([facility] Bilirubin,Total 0.6 mg/dL 0.2-1.0 Normal (applies to non-numeric results) [facility] ([facility] Bilirubin,Direct 0.2 mg/dL 0.0-0.2 Normal (applies to non-numeric results) [facility] ([facility] Albumin 3.2 GM/DL 3.2-5.2 Normal (applies to non-numeric resul ts) [facility] ([facility] Total Protein 6.3 GM/DL 6.4-8.2 Below low normal [facility] ([facility] Albumin/Globulin Ratio 1.0 Normal (applies to non-n umeric results) [facility] ([facility] ID Date Data Source [id number] 10/22/2020 12:17:00 PM EDT [facility] ([facility] Name Value Range Interpretation Code Description Data Tere rce(s) Supporting Document(s) CPK Creatine Phosphokinase 36 U/L 39-308 Below low normal [facility] ([facility] CK-MB Value Mass 1.8 ng/mL Normal (applies to non-numeric results) [facility] ([facility] Troponin I 0.11 ng/mL Above high normal [facility] ([facility] <content>Troponin I Reference Interval f or Siemens [place] LOCI:</content>
<content></content>
<content>99th Percentile= 0.00-0.045 ng/ml</content>
<content></content>
<content>Risk Stratification:</content>
<content><= 0.10 ng/ml Decreased Risk for Adverse Clinical</content>
<content>Events.</content>
<content>0.10-1.50 ng/ml Increased Risk for Adverse Clinical</content>
<content>Events. Evaluation of additional</content>
<content>criterion and/or repeat testing in 2-6</content>
<content>hours is suggested to rule out myocardial</content>
<content>damage.</content>
<content>>= 1.50 ng/ml Indicative of Myocardial Injury.</content>
<content></content> MB/CK Relative Index 5.00 Above high normal [facility] ([facility] <content>DIAGNOSIS CRITERIA</content>
<content>MMB ng/ml Relative Index (RI)</content>
<content>NON-AMI < or = 5 N/A</content>
<content>LANE ZONE > 5 < or = 4</content>
<content>AMI > 5 > 4</content>
<content></content> ID Date Data Source [id number] 10/22/2020 12:17:00 PM EDT [facility] ([facility] Name Value Range Interpretation Code Description Data Tere rce(s) Supporting Document(s) White Blood Count 3.8 10 4.0-10.0 Below low normal [facility] ([facility] Red Blood Count 3.25 10 4.30-6.10 Below low normal [facility] ([facility] Hemoglobin 10.0 g/dL 13.5-17.5 Below low normal [facility] ( [facility] Hematocrit 31.0 % 42.0-52.0 Below low normal [facility] ( [facility] Mean Corpuscular Volume 95.4 fl 80.0-96.0 Normal ( applies to non-numeric results) [facility] ([facility] ) Mean Corpuscular Hemoglobin 30.8 pg 27.0-33.0 Norm al (applies to non-numeric results) [facility] ([facility] ) Mean Corpuscular HGB Conc 32.3 g/dL 32.0-36.5 Normal (applies to non-numeric results) [facility] ([facility] ) Red Cell Distribution Width 14.2 % 11.5-14.5 Norm al (applies to non-numeric results) [facility] ([facility] ) Platelet Count, Automated 135 10 150-450 Below low normal [facility] ([facility] Neutrophils % 82.8 % 36.0-66.0 Above high normal [facility] ([facility] Lymph % 7.0 % 24.0-44.0 Below low normal [facility] ( [facility] [place] [place] Eos % 2.6 % 0.0-3.0 Normal (applies to non-numeric resul ts) [facility] ([facility] [place] % 6.8 % 2.0-8.0 Normal (applies to non-numeric resul ts) [facility] ([facility] Immature Granulocyte % 0.3 % 0-3.0 Normal (applies to non-n umeric results) [facility] ([facility] [place] [place] Baso % 0.5 % 0.0-1.0 Normal (applies to non-numeric resul ts) [facility] ([facility] [place] [place] Nucleated Red Blood Cell % 0.0 % 0-0 Normal (applies to n on-numeric results) [facility] ([facility] Neutrophils # 3.2 10 1.5-8.5 Normal (applies to non-numeric re sults) [facility] ([facility] Lymph # 0.3 10 1.5-5.0 Below low normal [facility] ( [facility] [place] [place] [place] # 0.3 10 0.0-0.8 Normal (applies to non-numeric resul ts) [facility] ([facility] Baso # 0.0 10 0.0-0.2 Normal (applies to non-numeric resul ts) [facility] ([facility] Eos # 0.1 10 0.0-0.5 Normal (applies to non-numeric resul ts) [facility] ([facility] ID Date Data Source [id number] 10/22/2020 12:17:00 PM EDT [facility] ([facility] Name Value Range Interpretation Code Description Data Tere rce(s) Supporting Document(s) Thyrotropin [Units/volume] in Serum or Plasma 2.700 uIU/ML 0. 358-3.740 Normal (applies to non-numeric results) [facility] ([facility] Lipoprotein lipase [Enzymatic activity/volume] in Serum or P lasma 117 U/L 73-393 Normal (applies to non-numeric results) [facility] ([facility] Thyroxine (T4) free [Mass/volume] in Serum or Plasma 1.05 ng/dL 0.76-1.46 Normal (applies to non-numeric results) [facility] Natriuretic peptide.B prohormone N-Terminal [Mass/volu me] in Serum or Plasma 7290 pg/mL Above high normal [facility] ([facility] ID Date Data Source [id number] 10/22/2020 10:45:00 AM EDT [facility] ([facility] [place]) Name Value Range Interpretation Code Description Data Tere rce(s) Supporting Document(s) Thyroid Stimulating Hormone 2.700 ME DENT ([facility]) Free T4 1.05 [facility] ([facility]) ID Date Data Source [id number] 10/22/2020 10:45:00 AM EDT [facility] ([facility] [place]) Name Value Range Interpretation Code Description Data Tere rce(s) Supporting Document(s) Albumin [Mass/volume] in Serum or Plasma 3.2 [facility] ([facility]) Calcium [Mass/volume] in Serum or Plasma 8.8 [facility] ([facility]) Alanine aminotransferase [Enzymatic activity/volume] in Serum or Pl asma 21 [facility] ([facility]) Carbon dioxide, total [Moles/volume] in Serum or Plasma 28 [facility] ([facility]) Chloride [Moles/volume] in Serum or Plasma 105 [facility] ([facility]) Alkaline phosphatase [Enzymatic activity/volume] in Serum or Plasma 7 7 [facility] ([facility]) Potassium [Moles/volume] in Serum or Plasma 4.4 [facility] ([facility]) Protein [Mass/volume] in Serum or Plasma 6.3 [facility] ([facility]) Sodium 140 [facility] ([facility]) Aspartate aminotransferase [Enzymatic activity/volume] in Serum or Plasma 11 [facility] ([facility]) Urea nitrogen [Mass/volume] in Serum or Plasma 80 [facility] ([facility]) Glucose 156 83-110 [facility] ([facility]) Creatinine For GFR 4.56 [facility] ([facility]) ID Date Data Source [id number] 10/22/2020 10:45:00 AM EDT [facility] ([facility]) Name Value Range Interpretation Code Description Data Tere rce(s) Supporting Document(s) White Blood Count 3.8 5.0-10.0 [facility] ([facility]) Red Blood Count 3.25 4.00-5.40 [facility] ([facility]) Platelets 135 172-450 [facility] ([facility]) Hematocrit 31.0 [facility] ([facility]) Hemoglobin 10.0 [facility] ([facility]) ID Date Data Source [id number] 07/12/2020 02:45:00 PM EDT [facility] ([facility] Name Value Range Interpretation Code Description Data Tere rce(s) Supporting Document(s) Leukocytes [#/volume] in Blood by Automated count 4.0 x10E3/uL 3.4-10 .8 [facility] ([facility] Hemoglobin [Mass/volume] in Blood 11.5 g/dL 13.0-17.7 Below low nor mal [facility] ([facility] Erythrocytes [#/volume] in Blood by Automated count 3.66 x10E6/u L 4.14-5.80 Below low normal [facility] ([facility] ) Hematocrit [Volume Fraction] of Blood by Automated count 35.6 % 37.5-51.0 Below low normal [facility] ([facility] ) Erythrocyte mean corpuscular volume [Entitic volume] by Auto mated count 97 fL 79-97 [facility] Erythrocyte mean corpuscular hemoglobin concentration [Mass/volume] by Automated count 32.3 g/dL 31.5-35.7 MED[facility] ([facility] Erythrocyte mean corpuscular hemoglobin [Entitic mass] by Automated count 31.4 pg 26.6-33.0 [facility] Erythrocyte distribution width [Ratio] by Automated count 13.5 % 11.6-15.4 [facility] ([facility] Platelets [#/volume] in Blood by Automated count 176 x10E3/uL 150-450 [facility] ([facility] Neutrophils 74 % [facility] Lymphs 13 % [facility] Monocytes/100 leukocytes in Blood by Automated count 10 % [facility] ([facility] Eosinophils/100 leukocytes in Blood by Automated count 2 % [facility] ([facility] Basophils/100 leukocytes in Blood by Automated count 1 % [facility] ([facility] Immature cells [#/volume] in Blood Laboratory test result [facility] ([facility] Neutrophils [#/volume] in Blood by Automated count 3.0 x10E3/uL 1.4-7 .0 [facility] ([facility] Lymphocytes [#/volume] in Blood 0.5 x10E3/uL 0.7-3.1 Below low nor mal [facility] ([facility] Eosinophils [#/volume] in Blood by Automated count 0.1 x10E3/uL 0.0-0 .4 [facility] ([facility] Monocytes [#/volume] in Blood 0.4 x10E3/uL 0.1-0.9 [facility] ([facility] Immature granulocytes [#/volume] in Blood by Automated count 0.0 x10E3/uL 0.0-0.1 [facility] ([facility] Basophils [#/volume] in Blood by Automated count 0.0 x10E3/uL 0.0-0.2 [facility] ([facility] Immature granulocytes/100 leukocytes in Blood by Automated count 0 % [facility] ([facility] Nucleated erythrocytes/100 leukocytes [Ratio] in Blood by Automated count Laboratory test result [facility] ([facility] Morphology [Interpretation] in Blood Narrative Laboratory test result TOYN ([facility] ID Date Data Source [id number] 07/12/2020 02:45:00 PM EDT MEDSHAYAN ([facility] Name Value Range Interpretation Code Description Data Tere rce(s) Supporting Document(s) Glu 164 mg/dL 70-110 Above high normal MEDSHAYAN ([facility] CHRONIC KIDNEY DISEASE STAGING PER NKF: MALE GFR INTERPRETATION: 20-49 YRS: [...] Normal 80 and above >32 mL/min Normal BUN 51 mg/dL 8-23 Above high normal [facility] ([facility] CHRONIC KIDNEY DISEASE STAGING PER NKF: MALE GFR INTERPRETATION: 20-49 YRS: [...] Normal 80 and above >32 mL/min Normal Creat 3.3 mg/dL 0.7-1.2 Above high normal MEDENT ([facility] CHRONIC KIDNEY DISEASE STAGING PER NKF: MALE GFR INTERPRETATION: 20-49 YRS: [...] Normal 80 and above >32 mL/min Normal BUN/Creatinine Ratio 15.1 Calc MEDENT ([facility] CHRONIC KIDNEY DISEASE STAGING PER NKF: MALE GFR INTERPRETATION: 20-49 YRS: [...] Normal 80 and above >32 mL/min Normal Na 139 mmol/L 136-145 [facility] CHRONIC KIDNEY DISEASE STAGING PER NKF: MALE GFR INTERPRETATION: 20-49 YRS: [...] Normal 80 and above >32 mL/min Normal K 3.9 mmol/L 3.5-5.1 [facility] CHRONIC KIDNEY DISEASE STAGING PER NKF: MALE GFR INTERPRETATION: 20-49 YRS: [...] Normal 80 and above >32 mL/min Normal CL 99.4 mmol/L 98.0-107.0 MEDENT ([facility] CHRONIC KIDNEY DISEASE STAGING PER NKF: MALE GFR INTERPRETATION: 20-49 YRS: [...] Normal 80 and above >32 mL/min Normal Co2 24.3 mmol/L 22.0-29.0 MEDENT ([facility] CHRONIC KIDNEY DISEASE STAGING PER NKF: MALE GFR INTERPRETATION: 20-49 YRS: [...] Normal 80 and above >32 mL/min Normal CA 9.5 mg/dL 8.6-10.2 [facility] CHRONIC KIDNEY DISEASE STAGING PER NKF: MALE GFR INTERPRETATION: 20-49 YRS: [...] Normal 80 and above >32 mL/min Normal Alb 4.1 g/dL 3.5-5.2 MEDENT ([facility] CHRONIC KIDNEY DISEASE STAGING PER NKF: MALE GFR INTERPRETATION: 20-49 YRS: [...] Normal 80 and above >32 mL/min Normal TP 6.3 g/dL 6.6-8.7 Below low normal [facility] ( [facility] CHRONIC KIDNEY DISEASE STAGING PER NKF: MALE GFR INTERPRETATION: 20-49 YRS: [...] Normal 80 and above >32 mL/min Normal Globulin 2.2 Calc MEDENT ([facility] CHRONIC KIDNEY DISEASE STAGING PER NKF: MALE GFR INTERPRETATION: 20-49 YRS: [...] Normal 80 and above >32 mL/min Normal A/G Ratio 1.9 Calc [facility] ([facility] CHRONIC KIDNEY DISEASE STAGING PER NKF: MALE GFR INTERPRETATION: 20-49 YRS: [...] Normal 80 and above >32 mL/min Normal Alt (SGPT) 17 U/L 0-41 MED[facility] ([facility] CHRONIC KIDNEY DISEASE STAGING PER NKF: MALE GFR INTERPRETATION: 20-49 YRS: [...] Normal 80 and above >32 mL/min Normal Alp 94.2 U/L 40-129 MED[facility] ([facility] CHRONIC KIDNEY DISEASE STAGING PER NKF: MALE GFR INTERPRETATION: 20-49 YRS: [...] Normal 80 and above >32 mL/min Normal Ast (Sgot) 16 U/L 0-40 MEDENT ([facility] CHRONIC KIDNEY DISEASE STAGING PER NKF: MALE GFR INTERPRETATION: 20-49 YRS: [...] Normal 80 and above >32 mL/min Normal Tbili 0.63 mg/dL 0.0-1.2 MEDENT ([facility] CHRONIC KIDNEY DISEASE STAGING PER NKF: MALE GFR INTERPRETATION: 20-49 YRS: [...] Normal 80 and above >32 mL/min Normal Osmolality-Calculated 294.2 Calc MED ENT ([facility] CHRONIC KIDNEY DISEASE STAGING PER NKF: MALE GFR INTERPRETATION: 20-49 YRS: [...] Normal 80 and above >32 mL/min Normal Anion Gap 19 mmol/L [facility] CHRONIC KIDNEY DISEASE STAGING PER NKF: MALE GFR INTERPRETATION: 20-49 YRS: [...] Normal 80 and above >32 mL/min Normal eGFR 20 # [facility] ( [facility] CHRONIC KIDNEY DISEASE STAGING PER NKF: MALE GFR INTERPRETATION: 20-49 YRS: [...] Normal 80 and above >32 mL/min Normal eGFR Non-Afr. [place] 17 # [facility] ([facility] CHRONIC KIDNEY DISEASE STAGING PER NKF: MALE GFR INTERPRETATION: 20-49 YRS: [...] Normal 80 and above >32 mL/min Normal ID Date Data Source [id number] 07/10/2020 03:26:00 PM EDT TONY ([facility]) Name Value Range Interpretation Code Description Data Tere rce(s) Supporting Document(s) Hemoglobin 11.0 14.0-18.0 TONY ([facility]) Hematocrit 35.0 42.0-52.0 TONY ([facility]) ID Date Data Source [id number] 07/10/2020 03:26:00 PM EDT MEDENT ([facility]) Name Value Range Interpretation Code Description Data Tere rce(s) Supporting Document(s) Potassium 3.9 3.5-5.1 MEDENT ([facility]) ID Date Data Source [id number] 07/06/2020 03:27:00 PM EDT [facility] ([facility]) Name Value Range Interpretation Code Description Data Tere rce(s) Supporting Document(s) Potassium 3.8 3.5-5.1 MED[facility] ([facility]) ID Date Data Source [id number] 07/06/2020 03:27:00 PM EDT [facility]) Name Value Range Interpretation Code Description Data Tere rce(s) Supporting Document(s) Hemoglobin 10.7 14.0-18.0 MED[facility] ([facility]) Hematocrit 32.9 42.0-52.0 [facility] ([facility]) ID Date Data Source [id number] 06/29/2020 03:35:00 PM EDT [facility] Name Value Range Interpretation Code Description Data Tere rce(s) Supporting Document(s) Alkaline phosphatase [Enzymatic activity/volume] in Serum or Plasma 1 10 [facility] ([facility]) Total Protein 6.6 MED[facility] ([facility]) ID Date Data Source [id number] 06/29/2020 03:35:00 PM EDT MED[facility] ([facility]) Name Value Range Interpretation Code Description Data Tere rce(s) Supporting Document(s) Iron 51 MEDENT ([facility]) Iron binding capacity [Mass/volume] in Serum or Plasma 251 [facility] ([facility]) Tibc % Saturation 20 [facility] ([facility]) ID Date Data Source [id number] 06/29/2020 03:35:00 PM EDT MED[facility] ([facility]) Name Value Range Interpretation Code Description Data Tere rce(s) Supporting Document(s) Ferritin [Mass/volume] in Serum or Plasma 727 22-322 [facility] ([facility]) ID Date Data Source [id number] 06/29/2020 03:35:00 PM EDT MEDENT ([facility]) Name Value Range Interpretation Code Description Data Tere rce(s) Supporting Document(s) Misc 586 16-80 [facility] ID Date Data Source [id number] 06/29/2020 03:35:00 PM EDT MEDENT ([facility]) Name Value Range Interpretation Code Description Data Tere rce(s) Supporting Document(s) Uric Acid 5.8 MEDENT ([facility]) ID Date Data Source [id number] 06/29/2020 03:35:00 PM EDT [facility]) Name Value Range Interpretation Code Description Data Tere rce(s) Supporting Document(s) Glucose Laboratory test result MED[facility] ([facility]) Blood Urea Nitrogen 90 MEDENT ([facility]) Glomerular filtration rate/1.73 sq M.pre dicted [Volume Rate/Area] in Serum or Plasma by Creatinine-based formula (MDRD) Laboratory test result MEDENT ([facility]) Creatinine 5.72 [facility] ([facility]) Sodium 137 [facility] Potassium Laboratory test result MED[facility] ([facility]) Chloride Laboratory test result [facility] ([facility]) Carbon Dioxide 22 [facility] ([facility]iol [facility]) Calcium 9.6 MEDENT ([facility]) Phosphorus Laboratory test result MED[facility] ([facility]) Albumin Laboratory test result [facility] ([facility]) ID Date Data Source [id number] 06/29/2020 03:35:00 PM EDT [facility] ([facility]) Name Value Range Interpretation Code Description Data Tere rce(s) Supporting Document(s) Platelets Laboratory test result [facility] ([facility]) Red Blood Count 11.9 MEDENT ([facility]io [facility]) White Blood Count 3.76 [facility] ([facility]) Hematocrit 36.4 [facility] ([facility]) Hemoglobin 11.9 [facility] ([facility]) ID Date Data Source [id number] 06/17/2020 11:26:00 PM EDT [facility] Name Value Range Interpretation Code Description Data Tere rce(s) Supporting Document(s) SARS coronavirus 2 RNA [Presence] in Res piratory specimen by MARI with probe detection NEGATIVE [facility] This lab was ordered by [facility] a nd reported by [facility]. ID Date Data Source [id number] 06/17/2020 08:43:00 PM EDT MEDENT ([facility] Name Value Range Interpretation Code Description Data Tere rce(s) Supporting Document(s) Red Blood Count 3.59 10 4.30-6.10 Below low normal MED ENT ([facility] White Blood Count 4.2 10 4.0-10.0 Normal (applies to non-numeri c results) MEDENT ([facility] Hematocrit 36.6 % 42.0-52.0 Below low normal [facility] ( [facility] Hemoglobin 11.3 g/dL 13.5-17.5 Below low normal MED[facility] ( [facility] Mean Corpuscular Volume 101.9 fl 80.0-96.0 Above high normal [facility] ([facility] Mean Corpuscular Hemoglobin 31.5 pg 27.0-33.0 Norm al (applies to non-numeric results) MED[facility] ([facility] ) Mean Corpuscular HGB Conc 30.9 g/dL 32.0-36.5 Below low normal [facility] ([facility] Red Cell Distribution Width 14.6 % 11.5-14.5 Above high normal MEDENT ([facility] Neutrophils % 68.3 % 36.0-66.0 Above high normal MEDE NT ([facility] Platelet Count, Automated 123 10 150-450 Below low normal [facility] ([facility] Lymph % 15.6 % 24.0-44.0 Below low normal [facility] ( [facility] [place] % 12.7 % 2.0-8.0 Above high normal [facility] ([facility] Eos % 2.2 % 0.0-3.0 Normal (applies to non-numeric resul ts) [facility] ([facility] Baso % 0.7 % 0.0-1.0 Normal (applies to non-numeric resul ts) [facility] ([facility] Immature Granulocyte % 0.5 % 0-3.0 Normal (applies to non-n umeric results) [facility] ([facility] Nucleated Red Blood Cell % 0.0 % 0-0 Normal (applies to n on-numeric results) [facility] ([facility] Neutrophils # 2.9 10 1.5-8.5 Normal (applies to non-numeric re sults) [facility] ([facility] [place] # 0.5 10 0.0-0.8 Normal (applies to non-numeric resul ts) [facility] ([facility] Lymph # 0.7 10 1.5-5.0 Below low normal [facility] ( [facility] Eos # 0.1 10 0.0-0.5 Normal (applies to non-numeric resul ts) [facility] ([facility] Baso # 0.0 10 0.0-0.2 Normal (applies to non-numeric resul ts) [facility] ([facility] ID Date Data Source [id number] 06/03/2020 03:35:00 PM EDT MEDENT ([facility]) Name Value Range Interpretation Code Description Data Tere rce(s) Supporting Document(s) Calcium [Mass/volume] in Serum or Plasma 9.8 MED[facility] ([facility]) Sodium 139 MEDENT ([facility]) Carbon dioxide, total [Moles/volume] in Serum or Plasma 26 [facility] ([facility]) Chloride [Moles/volume] in Serum or Plasma 99 [facility] ([facility]) Glucose 113 70-99 MED[facility] ([facility]) Potassium [Moles/volume] in Serum or Plasma 3.5 [facility] ([facility]) Creatinine 5.21 0.80-1.30 [facility] ([facility]) Blood Urea Nitrogen 79 7-24 MED[facility] ([facility]) Glomerular filtration rate/1.73 sq M.pre dicted [Volume Rate/Area] in Serum or Plasma by Creatinine-based formula (MDRD) 11 [facility] ([facility]) ID Date Data Source [id number] 06/03/2020 03:35:00 PM EDT MEDENT ([facility]) Name Value Range Interpretation Code Description Data Tere rce(s) Supporting Document(s) Magnesium Level 1.8 MED[facility] ([facility]io [facility]) ID Date Data Source [id number] 06/03/2020 03:35:00 PM EDT MED[facility] ([facility]) Name Value Range Interpretation Code Description Data Tere rce(s) Supporting Document(s) White Blood Count 5.1 4.1-11.0 [facility] ([facility]) Platelets 158 150-450 MED[facility] ([facility]) Red Blood Count 3.21 4.60-6.10 [facility] ([facility]) Hemoglobin 10.5 13.5-18.0 [facility] ([facility]) Hematocrit 30.3 41.0-53.0 [facility] ([facility]) ID Date Data Source [id number] 06/03/2020 11:18:07 AM EDT [facility] Name Value Range Interpretation Code Description Data Tere rce(s) Supporting Document(s) WBC 5.1 10*3/uL (4.1-11.0) [facility] RBC 3.21 10*6/uL (4.60-6.10) L [facility] HGB 10.5 g/dL (13.5-18.0) L [facility] HCT 30.3 % (41.0-53.0) L [facility] MCV 94.3 fL (80.0-95.0) [facility] MCH 32.6 pg (27.0-32.0) H [facility] MCHC 34.5 g/dL (32.0-36.0) [facility] RDW 14.8 % (10.5-14.5) H [facility] PLT 158 10*3/uL (150-450) [facility] MPV 9.5 fL (7.1-10.7) [facility] [place] NEUT % 69.9 % (35.0-75.0) [facility] LYMPH % 16.4 % (16.0-52.0) [facility] MONO % 9.8 % (0.0-8.0) H [facility] [place] EOS % 2.7 % (0.0-5.0) [facility] BASO % 1.2 % (0.0-4.0) [facility] NEUT # 3.6 10*3/uL (1.8-7.7) [facility] LYMPH # 0.8 10*3/uL (1.2-4.8) L [facility] [facility] MONO # 0.5 10*3/uL (0.0-0.8) [facility] Eosinophils [#/volume] in Blood by Automated count 0.1 10*3/uL (0.0-0 .5) [facility] [place] BASO # 0.1 10*3/uL (0.0-0.2) [facility] ID Date Data Source [id number] 06/03/2020 12:38:05 PM EDT [facility] Name Value Range Interpretation Code Description Data Tere rce(s) Supporting Document(s) MAGNESIUM 1.8 mg/dL (1.7-2.4) [facility] ID Date Data Source [id number] 06/03/2020 03:29:31 PM EDT [facility] Name Value Range Interpretation Code Description Data Tere rce(s) Supporting Document(s) SODIUM 139 mmol/L (136-145) [facility] [place] [facility] POTASSIUM 3.5 mmol/L (3.6-5.2) L [facility] [place] [facility] - [facility]ORE CHLORIDE 99 mmol/L (100-108) L [facility] - CORE CO2 26 mmol/L (22-31) [facility] ANION GAP 14 mmol/L (7-16) [facility] [place] - CORE UREA NITROGEN 79 mg/dL (7-24) Laboratory [facility] [place] - [facility] RESULT VERIFIED BY REPEAT TESTING.RESULT (S) CALL[facility] TO [facility] AT [phone] [place] [id number] AT 1527 [place] [id number] CREATININE 5.21 mg/dL (0.80-1.30) [facility] - CORE RESULT VERIFIED BY REPEAT TESTING.RESULT (S) CALLED TO AND READ BACK BYRIS AT [phone] ON [id number] AT 1527 BY [id number] BUN/CREAT RATIO 15.2 RATIO (10.0-20.0) [facility] - CORE GLUCOSE 113 mg/dL (70-99) H [facility] - CORE CALCIUM 9.8 mg/dL (8.4-10.2) [facility] - CORE GFR 11 ml/min/1.73m2 (>59) L [facility] - CORE GFR ( AMER) 13 ml/min/1.73m2 (>59) [facility] GFR INTERPRETATION [facility] CORE --NORMAL KIDNEY FUNCTION OR MILD DISEASE - GFR >OR= 60CHRONIC KIDNEY DISEASE - GFR 15 - 59RENAL FAILURE - GFR <15 Est. GFR calculation based on the MDRDstudy equation, which assumes a steadystate for creatinine. Est. GFR should notbe used for medication dosing. ID Date Data Source [id number] 05/31/2020 12:00:00 AM EDT [facility] Name Value Range Interpretation Code Description Data Tere rce(s) Supporting Document(s) SARS coronavirus 2 Ag Negative [facility] This lab was ordered by [facility] and reported by [facility]. ID Date Data Source [id number] 05/30/2020 10:26:48 AM EDT [facility] Name Value Range Interpretation Code Description Data Tere rce(s) Supporting Document(s) WBC 5.3 10*3/uL (4.1-11.0) [facility] RBC 3.21 10*6/uL (4.60-6.10) L [facility] HGB 10.2 g/dL (13.5-18.0) L [facility] HCT 30.2 % (41.0-53.0) L [facility] MCV 94.1 fL (80.0-95.0) [facility] MCH 31.9 pg (27.0-32.0) [facility] [facility] MCHC 33.9 g/dL (32.0-36.0) [facility] RDW 14.4 % (10.5-14.5) [facility] PLT 134 10*3/uL (150-450) L [facility] MPV 9.4 fL (7.1-10.7) [facility] [place] [facility] NEUT % 70.1 % (35.0-75.0) [facility] LYMPH % 16.7 % (16.0-52.0) [facility] MONO % 10.2 % (0.0-8.0) H [facility] [place] [facility] EOS % 2.2 % (0.0-5.0) [facility] BASO % 0.8 % (0.0-4.0) [facility] NEUT # 3.7 10*3/uL (1.8-7.7) [facility] LYMPH # 0.9 10*3/uL (1.2-4.8) L [facility] MONO # 0.5 10*3/uL (0.0-0.8) Laboratory [facility] [place] - C[facility] Eosinophils [#/volume] in Blood by Automated count 0.1 10*3/uL (0.0-0 .5) [facility] [place] [facility] [place] [facility] BASO # 0.0 10*3/uL (0.0-0.2) [facility] [place] [facility] ID Date Data Source [id number] 05/30/2020 11:32:55 AM EDT [facility] Name Value Range Interpretation Code Description Data Tere rce(s) Supporting Document(s) SODIUM 141 mmol/L (136-145) [facility] [place] [facility] - [facility] POTASSIUM 3.6 mmol/L (3.6-5.2) [facility] [place] [facility] - C[facility] CHLORIDE 99 mmol/L (100-108) L [facility] [place] [facility] - CORE CO2 33 mmol/L (22-31) H [facility] [place] [facility] - CORE ANION GAP 9 mmol/L (7-16) [facility] [place] [facility] - CORE UREA NITROGEN 64 mg/dL (7-24) H [facility] CREATININE 5.02 mg/dL (0.80-1.30) HH [facility] [facility] RESULT VERIFIED BY REPEAT TESTING.CONSIS TENT WITH PREVIOUS RESULTS BUN/CREAT RATIO 12.7 RATIO (10.0-20.0) [facility] [place] [facility] - CORE GLUCOSE 131 mg/dL (70-99) H [facility] [place] [facility] - CORE CALCIUM 9.9 mg/dL (8.4-10.2) [facility] [place] [facility] - C[facility] GFR 11 ml/min/1.73m2 (>59) L [facility] - CORE GFR ( AMER) 14 ml/min/1.73m2 (>59) L [facility] [place] [facility] - CORE GFR INTERPRETATION [facility] CORE --NORMAL KIDNEY FUNCTION OR MILD DISEASE - GFR >OR= 60CHRONIC KIDNEY DISEASE - GFR 15 - 59RENAL FAILURE - GFR <15 Est. GFR calculation based on the MDRDstudy equation, which assumes a steadystate for creatinine. Est. GFR should notbe used for medication dosing. ID Date Data Source [id number] 05/30/2020 11:32:55 AM EDT [facility] C[facility] Name Value Range Interpretation Code Description Data Tere rce(s) Supporting Document(s) MAGNESIUM 1.8 mg/dL (1.7-2.4) [facility] [place] Date Data Source [id number] 05/27/2020 10:06:00 AM EDT [facility] Name Value Range Interpretation Code Description Data Tere rce(s) Supporting Document(s) SARS-CoV-2 RNA Resp Ql [facility] This lab was ordered by [facility] and reported by [facility]. ID Date Data Source [id number] 05/27/2020 10:04:29 AM EDT [facility] Name Value Range Interpretation Code Description Data Tere rce(s) Supporting Document(s) WBC 5.1 10*3/uL (4.1-11.0) [facility] - CORE RBC 2.96 10*6/uL (4.60-6.10) L [facility] - CORE HGB 9.5 g/dL (13.5-18.0) L [facility] - CORE HCT 27.8 % (41.0-53.0) L [facility] - CORE MCV 93.7 fL (80.0-95.0) [facility] - CORE MCH 31.9 pg (27.0-32.0) [facility] - CORE MCHC 34.0 g/dL (32.0-36.0) [facility] - CORE RDW 14.4 % (10.5-14.5) [facility] - CORE PLT 118 10*3/uL (150-450) L [facility] - CORE MPV 9.3 fL (7.1-10.7) [facility] - CORE NEUT % 77.5 % (35.0-75.0) H [facility] - CORE LYMPH % 12.4 % (16.0-52.0) L [facility] - CORE MONO % 7.4 % (0.0-8.0) [facility] CORE EOS % 2.0 % (0.0-5.0) [facility] - CORE BASO % 0.7 % (0.0-4.0) [facility] - CORE NEUT # 4.0 10*3/uL (1.8-7.7) [facility] CORE LYMPH # 0.6 10*3/uL (1.2-4.8) L [facility] - CORE MONO # 0.4 10*3/uL (0.0-0.8) [facility] CORE Eosinophils [#/volume] in Blood by Automated count 0.1 10*3/uL (0.0-0 .5) [facility] - CORE BASO # 0.0 10*3/uL (0.0-0.2) [facility] ID Date Data Source [id number] 05/27/2020 10:55:39 AM EDT [facility] Name Value Range Interpretation Code Description Data Tere rce(s) Supporting Document(s) SODIUM 136 mmol/L (136-145) [facility] - CORE POTASSIUM 4.2 mmol/L (3.6-5.2) [facility] - CORE CHLORIDE 100 mmol/L (100-108) [facility] - CORE CO2 31 mmol/L (22-31) [facility] C[facility] ANION GAP 5 mmol/L (7-16) L [facility] - CORE UREA NITROGEN 63 mg/dL (7-24) H [facility] CORE CREATININE 5.07 mg/dL (0.80-1.30) HH [facility] - CORE CONSISTENT WITH PREVIOUS RESULTS BUN/CREAT RATIO 12.4 RATIO (10.0-20.0) [facility] CORE GLUCOSE 127 mg/dL (70-99) H [facility] - CORE CALCIUM 9.3 mg/dL (8.4-10.2) [facility] - 55social GFR 11 ml/min/1.73m2 (>59) L [facility] - CORE GFR ([facility]) 14 ml/min/1.73m2 (>59) L [facility] GFR INTERPRETATION [facility] CORE --NORMAL KIDNEY FUNCTION OR MILD DISEASE - GFR >OR= 60CHRONIC KIDNEY DISEASE - GFR 15 - 59RENAL FAILURE - GFR <15 Est. GFR calculation based on the MDRDstudy equation, which assumes a steadystate for creatinine. Est. GFR should notbe used for medication dosing. ID Date Data Source [id number] 05/27/2020 10:55:39 AM EDT [facility] Name Value Range Interpretation Code Description Data Tere rce(s) Supporting Document(s) MAGNESIUM 1.8 mg/dL (1.7-2.4) [facility] ID Date Data Source [id number] 05/25/2020 07:54:24 AM EST [facility] SPECIMEN DESCRIPTION CATHETERIZED URINECULTURE RESULTS NO GROWTHREPORT STATUS FINAL 05/26/2020 Name Value Range Interpretation Code Description Data Tere rce(s) Supporting Document(s) COLOR [facility] PERFORMED AT [address] [place] [address] [place] [address] APPEARANCE [facility] SPEC GRAV URINE 1.014 (1.003-1.030) [facility] - CORE PH URINE 5.5 (5.0-7.5) [facility] - CORE LEUK ESTERASE (NEG) [facility] - CORE NITRITE URINE (NEG) [facility] - CORE PROTEIN URINE 3+ (NEG) A [facility] - CORE GLUCOSE URINE (NEG) A [facility] - CORE KETONE URINE (NEG) [facility] - CORE UROBILINOGEN 0.2 mg/dL (0-1.0) [facility] - CORE BILIRUBIN URINE (NEG) [facility] - CORE BLOOD/HGB URINE 1+ (NEG) A [facility] CORE ID Date Data Source [id number] 05/25/2020 09:04:34 AM EST [facility] - CORE SPECIMEN DESCRIPTION CATHETERIZED URINECULTURE RESULTS NO GROWTHREPORT STATUS FINAL 05/26/2020 Name Value Range Interpretation Code Description Data Tere rce(s) Supporting Document(s) URINE WBC (0-5) [facility] - CORE URINE RBC (0-2) [facility] - CORE AMORPHOUS 1+ [HPF] [facility] CORE ID Date Data Source [id number] 05/26/2020 07:32:30 AM EDT [facility] CORE SPECIMEN DESCRIPTION CATHETERIZED URINECULTURE RESULTS NO GROWTHREPORT STATUS FINAL 05/26/2020 Name Value Range Interpretation Code Description Data Tere rce(s) Supporting Document(s) ID Date Data Source [id number] 05/23/2020 02:54:28 PM EST [facility] Name Value Range Interpretation Code Description Data Tere rce(s) Supporting Document(s) Discharge Summary [facility] DPXEZs1lQwMYYlCa03/IUCvpNCEwj7SqUKkpKRn5ZVcfUMYlI2DhAQD4jJ6pQXH8KLlLUtHvIgRjNrBp lbm HrGraDYySxFRQwZepJGyOwBNkeUdrbrFIzJF9NqHD3YLFoP48kCSOxZPLoL0TjKLH7POT+Wn1OGYDghU NqHW1DMupU7E5oq3i8VV9r3S2UkIRxKNgdVzd/AOEsx35FL19naReUQzCj5GfJb4szf03z/5v+1OpCrT FZ9BrEjvF4Myji5IEML7d2vOtHAiV/+43nsO7yYFG/ t/o5oGI9pNg//sKT94e7ihy/mxwKO1DBAFK9BRbqE93+1JPO7J0cfUiguRlQHg6ZMJdgB3DUgYF+/vqF jOkmbEkgVmeHFrHgboY4KIHxZKbwrL5ZPKx9pgQ3iGYHst0RRu5pvsNhFpoKGYgHhABTtkMwQpSLC63M DBKaKIF1XfQM4ffKePehnxAgshHRiqOQqSyVP16u5V GV7g34wXfMY2d2ZX3aM8Wt0omYJlwGxKhClsZrRh+klO70039d3QABC6q0bJtco/5GYw5jB8l5xucsnl Qe4bx5ynf/w41rWnushpEwUTRq8bs0Dji12YpBCtzr3rHXjIEvmuPhZlrwy+7j2knBDhPqASBdAjI5qn MLzmc/1smmRApsqGq0WqtnsctJOAysxXl6P5sk0Gox tbpRptCVWs+TP+mrA5NM5pbD6JwafSUsmKNK3njerEasddLBBfZk9po0+2581M9NlSj5UwXh+2HDk/fH 73jpsVbSCUlDYvbPVCnPgZJuSUdB3pxqdQS0ku6sBzl2M0A5BobEdA9VZW+IN/9Kqk8GD+nh3RGIqG/R GPatlDgCi8d+bZZYV2kaaRolFfEXTOEoc3fM+tuBE2 1nQorFx+yWu9rm6BTZ4cWE2bc8j+a5lUgc49B1Kv7Di4eMINO2OOdYaPBRVTpQc3CNn/ZDjXZKE+kVeX BGB+iXUSZjQ7Jdc8i7NSP1DM0JOtCtnW17zhOdqrZsoExdx8MeljiU6L9F69uuLPCujrJKEHrQ2t2kuy 3pySby/5nE0I58R21xzk90CBOw9/l14ioW3hQs6e+7 [file] ZpZDZndgO1Cm+mover helper+PpvZJvj4XQ9NE+K1BMKL45k9D [file] 1svsqCayfiMCAZqhsdMyqlkb6/9f/b6C5aYOU/3eFy 7yEx+RAxxyWHw+H9eYpBfH+/JI/lMe7H5Skisi/fBN4yxFs+/1lndleDE3v9+kI8afv79NpAudO+7t5J 7y08j8biP1h720Rdg1+Pdo6O/zHa+Ke4Kg47z4R5gpgt6XbxkVt6pmlC//pxuvt2+vo785Dldr7La+dp w5bNpCh/FtnNyb/tAUsZ6sAKPeYzA/qrWDaancJ1YH 8EudyKnb9Xab3IUJc++5PUYMp5m+NF6+PixyxzNqeyeSCbu/jtV/GeAX4vtLb0ktZ2ekxIzb8j5JOU3R QUzMwZcPmC6yrAK+bNiy9/jrZ5HfTrFm6cx4RdDkIKhkGld0egFycG/sj93jj2wXG72E2zCKsyr+hlRp wUQGSkc8s1NGfWZIx5h0nqzsAf/ZBQz/J4cky0D0vF nF2M/EkBD71r/vPp/UkSnptTQjxv9wfL7Hapipm5LAZqYCZ9Lw1Fv0HiEsEFY8SUTRGyE22ltgRtRY26 qh1fBbCEQBOq2ue12hx8pPlE+e2AHSUbelnI7hb24gFLFtVVd+uHMf5qusWWXn6FIf42dOg5pjZSONLK dgBLScuEmYLmJNokWpLSoocBLWzyyKwSIP1W+1giUP F9jRpKAJ7nwwzcm6xLJJo4tfXvIV1Fw4jD63iugCgL76VzNg14ajL89SkmSl+vIbwpxEEorqO/yuRW1U 9oJGQ8wurDuYhu+spJd+WQo2YoaDt1A8uBL6D/input output clerk/HemdMeHZj9VVktRTQKMIfv1KnkjoX9XwqT76h84 [file] 7A/BlIxah2zvYp3RRBGSLSt9xK4rOsUjv7MRk7TOzX3k6a29hpGx+regional administrative assistant+oL4CrRi0QePepxne/sCal5n+ [file] ICAgICAgICAgICAgICAgICAgICAgICAgICAgICAgIC AgICAgICAgICAgICAgICAgICANCiAgICAgICAgICAgICAgICAgICAgICAgICAgICAgICAgICAgICAgIC AgICAgICAgICAgICAgICAgICAgICAgICAgICAgICAgICAgICAgICAgICAgICAgICAgICAgICAgICAgIC ANCiAgICAgICAgICAgICAgICAgICAgICAgICAgICAg ICAgICAgICAgICAgICAgICAgICAgICAgICAgICAgICAgICAgICAgICAgICAgICAgICAgICAgICAgICAg ICAgICAgICAgICANCiAgICAgICAgICAgICAgICAgICAgICAgICAgICAgICAgICAgICAgICAgICAgICAg ICAgICAgICAgICAgICAgICAgICAgICAgICAgICAgIC AgICAgICAgICAgICAgICAgICAgICANCiAgICAgICAgICAgICAgICAgICAgICAgICAgICAgICAgICAgIC AgICAgICAgICAgICAgICAgICAgICAgICAgICAgICAgICAgICAgICAgICAgICAgICAgICAgICAgICAgIC AgICANCiAgICAgICAgICAgICAgICAgICAgICAgICAg ICAgICAgICAgICAgICAgICAgICAgICAgICAgICAgICAgICAgICAgICAgICAgICAgICAgICAgICAgICAg ICAgICAgICAgICAgICANCiAgICAgICAgICAgICAgICAgICAgICAgICAgICAgICAgICAgICAgICAgICAg ICAgICAgICAgICAgICAgICAgICAgICAgICAgICAgIC AgICAgICAgICAgICAgICAgICAgICAgICANCiAgICAgICAgICAgICAgICAgICAgICAgICAgICAgICAgIC AgICAgICAgICAgICAgICAgICAgICAgICAgICAgICAgICAgICAgICAgICAgICAgICAgICAgICAgICAgIC AgICAgICANCiAgICAgICAgICAgICAgICAgICAgICAg ICAgICAgICAgICAgICAgICAgICAgICAgICAgICAgICAgICAgICAgICAgICAgICAgICAgICAgICAgICAg ICAgICAgICAgICAgICAgICANCiAgICAgICAgICAgICAgICAgICAgICAgICAgICAgICAgICAgICAgICAg ICAgICAgICAgICAgICAgICAgICAgICAgICAgICAgIC AgICAgICAgICAgICAgICAgICAgICAgICAgICANCjw/tCMeM4wqvFLegdI5N5xkXe5QQi7QRX9fq8LqIX VjJBdaslMyZfkIOiOmKDZsCnqJOyk5LAthLI0RsDFtR6IhZ2QgCQjeUJ7ZCLEjIZSwdLJaGTMdVMMdDx Z6QEOqAShnNO7RzQGlTOcqRQEeCGGjQwUaEJEfFIKb WBGfYJRiATIQILWkKOBoLaEzVEXqMGFzEWnuQQRMGTQ8HRSmNsBiNWMwIRGqUqRbFSNEJU8GKjNuC9Zc lA00ADJxZFp+Ru8QLF6xf7YjGEm4BREqZS2fuh6ZCJhKXpAjS4XdqpG8JZMeJHPcZt2WIQYjAGBtzNT4 FNHyKTZERaFbU2PrsJ18YJHBAv0+DQplbmRvYmoNCj QrZABfm8KcNVt0US7FAOTlYVy3bVDiPZdrG2gxghswWHS4uN4zxcnjEzjxP7RsHDyiTDCIElWxgtYsIO XOJQE9LDCkNIKhFyArULUqOBjoEDAZSFqPFzMiI6Wju6TgHbY0RQUyLtFfWIqoJJXxZpB5QM45iWxhJL 7DQVKqDIEjAG67TXQ5RDVuUi2LEd0SWqNvUJ5pnx6H PNMkCMJqEhxJCtk8UEbuOC1BwGMlS4DvjKEdw2nISxUsW9KAPCO0LSZoYw4TKGZgJtXvOIUrCBcmAF9t UVMcBUYQxXpuumS8ED9FSX2nxjSwAA2RRjUmQq7kTl2VWsDvY4HlK1OhVCUzDEGJDLcgZS6EZBbdXC0r MB5Yh9YVnNArfF8vkt7UCQPjYFWlZwaoyx6PNpwpT0 J5mSanNOZeJZgjOVNRXUkxPV7BAMGvBLA8UWI1LOFyXAYPXhSmV42gQD9LK9Ogf20kNyP0HFVlBiDlLA tbBA35qLnplxWdlYKigCrlJT6INi8+DTbvrtVwGlxRItajPVAUXfLvDUUCUoEaGHIcVKLtVJKzVpW9Pc XmMm0HYRDzUHQoEEFwWaZeTMTxBGNdVMhcQYYyQCKn Clc5WSGuBLWcWX9JSoTnMYVnVQNtICwaVNYgKMPrnh9ENBIqKJZnKOQ1FdMlJYFjAFQuJLbmFMJfCOVj FWL6KRSvUHXaWA6HAdCbAWNaJEVeLUuqJISxDPDlnp2TYHWpQUMsJZQ5TMFjXWOdPVPdMGxmLNJjSZK7 JtviBVXoAOJpHC0JEvOnIUNzBNGqIgicTJUoKVHtpw 9DXHBsJBMkEeX7JqZbIYKnKCDzQLhdTNDpVMD9QJJ8TSGxXSLgWF9VAsReDIKeIWm5GyAbMZIyXPIfnp 3MNWLqWONfCpA3FmLtJPIuJDYaLWhlABBrWJZrTZewUOUlMLPmJA0BSgKvSRNoUpj2ULLbYIShZKNrcf 0KMDAwMDAyODAwMiAwMDAwMCBuDQowMDAwMDMwMzIx YXDoRZIpXV0VIvMlSCTuElF6KbttTVQaLPDfkf9XCTGzHVSiVin2SIPyCELsDUFfTYicGHWhFZRbAQS2 WVBsTEBgIZ1MKwTkYHOdXoT9XxZpUWNiBUVuwg9KPOGsCJViVhD9RyXeUIMiNBEvQFchRHDlKUW6GuA5 NDXlLHRvCK6FQdGuTOVsHhx3ZjPgMVToUJDdaf7FWL NjWIAjTHR0TZJoAZTxHAPpIPtoBXWsLGW6LkusMOOiRPWxSN6RAgFbWZSfEhq6UdItTCYbYFWjbd7TPZ MlHEH8RWtiDcMaCREmNFFkDEbhFDWsDMRjOUE1QFQsAUDgEB6PNyCcSOUoZVAcPZTeNWFbJUVhxk5DFU GtSSB8WuQ7FdLrKLPnSHLaKPesHVYyGHNpFtlvYZGg UXXmIQ2BQlJpZJArYEF0SuBeLNWsCNZkjv5YCAXdQLA9IuMtPdLcWOLaYOByVTacRXSvPTUtVxGlGYYe PUFiBY1YWqSsYPWvBMJ0VmIyREXsGVVpgr8RBPRrGJC8CFt2QRIlZAPmDPVdSNikAVKfPKA1SQn3HGNz BTEoPX3XFaOuNVFvSOOwZWQmEOGqMPYduf8IPORlGP Q9VFK3SYIkLLEjZMNsYKmhKPRrXMOtGFP0XSXsQRQhRE2BXcTlXWGoZMD9KutdORLtBJKdxk4EFTKdIH U5ABjfJVVpINMiHLXkSSoxYCVhFKWhFVC9CJIqWQUkGD7YNwRsQOVrDFNjOFXrJRWqDQJrps6DGGOiUU U2RhX4UKJmUUWdOPPtTOjuRUQfZXGuZuHyCNHnBMVr KA0WXpNuRTQtLBV8LJhzROKbEEUobi4NZONkBKQ6HSElHsCmBCYrNXImINdlWLTrJXV3Gtv4QGAlXQVu XI9JMsQkMFUqABH4BJXiGIAgBRBnkx4FiMExtVllgt3MKQmUXj4ZeQnlPOCiJLrgXg5npTL8EDWjKLCE Rf3YauYgVMTpHHDKAQezQXCoJLHgKXZ6NwLvEWEjV0 YwNUPkCYroWgVpSoSoDqY4EWMeKqT2RZTtJOZtTWFhOMFfN9YkGSKfWBTtAODoXKJeEyo0PzJ+IF0gDQ o+Pr3Pd7RtgwG5slNqLCs4XGf0UU5PDMWVK9KKMt== ID Date Data Source [id number] 05/22/2020 11:36:46 AM [facility] Value Range Interpretation Code Description Data Tere rce(s) Supporting Document(s) Glucose [Mass/volume] in Capillary blood by Glucometer 163 mg/dL 70- 140 [facility] ID Date Data Source [id number] 05/22/2020 07:40:28 AM [facility] Value Range Interpretation Code Description Data Tere rce(s) Supporting Document(s) Glucose [Mass/volume] in Capillary blood by Glucometer 125 mg/dL 70- 140 [facility] ID Date Data Source [id number] 05/21/2020 09:03:05 PM [facility] Value Range Interpretation Code Description Data Tere rce(s) Supporting Document(s) Glucose [Mass/volume] in Capillary blood by Glucometer 164 mg/dL 70- 140 [facility] ID Date Data Source [id number] 05/21/2020 04:32:56 PM [facility] Value Range Interpretation Code Description Data Tere rce(s) Supporting Document(s) Glucose [Mass/volume] in Capillary blood by Glucometer 154 mg/dL 70- 140 [facility] ID Date Data Source [id number] 05/21/2020 02:46:36 PM [facility] Name Value Range Interpretation Code Description Data Tere rce(s) Supporting Document(s) Specimen source [Identifier] of Unspecified specimen [facility] SARS-CoV-2 RNA 2019 nCoV Real-Time RT-PCR: NOT DETECTED [facility] Assay Performed 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[facility] Patient has symptoms related to [facility] When did you start to experience these symptoms [Date and time] [Phen X] [facility] Patient was hospitalized because of this condition [facility] patient was admitted to ICU for [facility] Patient resides in a congregate care setting [facility] status [facility] ID Date Data Source [id number] 05/21/2020 02:46:06 PM [facility] Service Cmnt XXX-Imp : NoneRespiratory P CR Panel : PCR ResultsMicroorganism XXX Cult : See Labs Tab for 2019 nCoV RT-PCR resultsHAdV DNA QI MARI+non-probe : Not DetectedHCoV [id number] Nph QI MARI+non-probe : Not DetectedHCoV [id number] Nph QI MARI+non-probe : Not [id number] RNA Nph QI MARI+non-probe : Not VnbepeyxGQuFIS14 RNA Upper resp QI MARI+probe : Not DetectedhMPV RNA Nph QINAA+non-probe : Not DetectedRV+EV RNA Nph QI MARI+non-probe : Not DetectedFLUAV RNA Nph QI MARI+ non-probe : Not DetectedFLUBV RNA Nph QI MARI+non-probe : Not DetectedHPIV1 RNA NphQINAA+non-probe : Not DetectedHPIV2 RNA Nph QINAA+non-probe : Not DetectedHPVI3 RNA Nph MARI+non-probe : Not DetectedHPIV4 RNA Nph Q MARI+non-probe : Not DetectedRSV RNA Nph Q MARI+non-probe : Not DetectedB pert.PT PrmtNph Q MARI+non-probe : Not DetectedC pneum DNA Nph Q MARI+non-probe : Not DetectedM pneum DNA Nph Q MARI+non-probe : Not DetectedB [id number] DNA Nph MARI+non-probe : Not Detected Name Value Range Interpretation Code Description Data Tere rce(s) Supporting Document(s) ID Date Data Source [id number] 05/21/2020 12:40:00 PM EST [facility] Name Value Range Interpretation Code Description Data Tere rce(s) Supporting Document(s) SARS-CoV-2 RNA 2019 nCoV Real-Time RT-PCR: NOT DETECTED [facility] This lab was ordered by [facility] and reported by [facility]. ID Date Data Source [id number] 05/21/2020 11:45:22 AM [facility] Name Value Range Interpretation Code Description Data Tere rce(s) Supporting Document(s) Glucose [Mass/volume] in Capillary blood by Glucometer 103 mg/dL 70- 140 [facility] ID Date Data Source [id number] 05/21/2020 07:41:03 AM [facility] Name Value Range Interpretation Code Description Data Tere rce(s) Supporting Document(s) Glucose [Mass/volume] in Capillary blood by Glucometer 142 mg/dL 70- 140 H [facility] ID Date Data Source [id number] 05/21/2020 05:22:20 AM [facility] Name Value Range Interpretation Code Description Data Tere rce(s) Supporting Document(s) Bicarbonate [Moles/volume] in Serum 23 mmol/L 22-29 [facility] Chloride [Moles/volume] in Serum or Plasma 95 mmol/L 98-107 L [facility] Creatinine [Mass/volume] in Serum or Plasma 4.85 mg/dL 0.70-1.20 H [facility] Glucose [Mass/volume] in Serum or Plasma 117 mg/dL 70-140 [facility] Potassium [Moles/volume] in Serum or Plasma 4.8 mmol/L 3.4-5.1 [facility] Sodium [Moles/volume] in Serum or Plasma 131 mmol/L 136-145 L [facility] Urea nitrogen [Mass/volume] in Serum or Plasma 48 mg/dL 8-23 H [facility] Anion gap 3 in Serum or Plasma 13 mmol/L 8-15 [facility] Osmolality of Serum or Plasma by calculation 286 mosm/kg 275-300 [facility] Creatinine/Urea nitrogen [Mass Ratio] in Serum or Plasma 10 [facility] Calcium [Mass/volume] in Serum or Plasma 9.2 mg/dL 8.8-10.2 [facility] Glomerular filtration rate/1.73 sq M pre dicted among non-blacks [Volume Rate/Area] in Serum or Plasma by Creatinine-based formula (MDRD) 11 mL/min/1.73m2 >60 L [facility] Glomerular filtration rate/1.73 sq M pre dicted among blacks [Volume Rate/Area] in Serum or Plasma by Creatinine-based formula (MDRD) 12 mL/min/1.73m2 >60 L [facility] ID Date Data Source [id number] 05/21/2020 05:31:36 AM EST [facility] Name Value Range Interpretation Code Description Data Tere rce(s) Supporting Document(s) Leukocytes [#/volume] in Blood by Automated count 6.2 10*3/uL 4-10 [facility] Erythrocytes [#/volume] in Blood by Automated count 3.21 10*6/uL 4.6- 6.1 L [facility] Hemoglobin [Mass/volume] in Blood 10.1 g/dL 13.5-18 L [facility] Hematocrit [Volume Fraction] of Blood by Automated count 29.9 % 4 1-53 L [facility] Erythrocyte mean corpuscular volume [Entitic volume] by Auto mated count 93.2 fL 80-96 [facility] Erythrocyte mean corpuscular hemoglobin [Entitic mass] by Automated count 31.4 pg 27-33 [facility] Erythrocyte mean corpuscular hemoglobin concentration [Mass/volume] by Automated count 33.7 g/dL 32.0-36.0 [facility] E[facility]th[facility] distribution width [Ratio] by Automated count 14.9 % 11.5-14.5 H [facility] Platelets [#/volume] in Blood by Automated count 142 10*3/uL 150-400 L [facility] Differential cell count method - Blood [facility] Neutrophils/100 leukocytes in Blood by Automated count 74 % [facility] Lymphocytes/100 leukocytes in Blood by Automated count 13 % [facility] Monocytes/100 leukocytes in Blood by Automated count 9 % [facility] Eosinophils/100 leukocytes in Blood by Automated count 3 % [facility] Basophils/100 leukocytes in Blood by Automated count 1 % [facility] Neutrophils [#/volume] in Blood by Automated count 4.59 10*3/uL 1.8-7 .0 [facility] Lymphocytes [#/volume] in Blood by Automated count 0.77 10*3/uL 1.2-4 .0 L [facility] Monocytes [#/volume] in Blood by Automated count 0.58 10*3/uL 0-0.8 [facility] Eosinophils [#/volume] in Blood by Automated count 0.18 10*3/uL 0-0.5 [facility] Basophils [#/volume] in Blood by Automated count 0.04 10*3/uL 0-0.2 [facility] Nucleated erythrocytes/100 leukocytes [Ratio] in Blood by Automated count 0 /100{WBCs} 0-0 [facility] ID Date Data Source [id number] 05/20/2020 09:37:51 PM [facility] Name Value Range Interpretation Code Description Data Tere rce(s) Supporting Document(s) Glucose [Mass/volume] in Capillary blood by Glucometer 136 mg/dL 70- 140 [facility] ID Date Data Source [id number] 05/20/2020 04:33:54 PM [facility] Value Range Interpretation Code Description Data Tere rce(s) Supporting Document(s) Glucose [Mass/volume] in Capillary blood by Glucometer 130 mg/dL 70- 140 [facility] ID Date Data Source [id number] 05/20/2020 02:38:44 PM [facility] Value Range Interpretation Code Description Data Tere rce(s) Supporting Document(s) [facility] EVXIQx1rBsYEAxHb35/KKIukUHJck7QiELdyFMs3CTksIABtJ1UuMUD9zG7hDSS6SZmZUkIhZzYmNdY2 [facility] [file] AgICAgICAgICAgICAgICAgICAgICAgICAgICAgICAgICAgICAgICAgICAgICAgICAgICAgICAgICAgIC AgICAgICAgICANCiAgICAgICAgICAgICAgICAgICAg ICAgICAgICAgICAgICAgICAgICAgICAgICAgICAgICAgICAgICAgICAgICAgICAgICAgICAgICAgICAg ICAgICAgICAgICAgICAgICAgICANCiAgICAgICAgICAgICAgICAgICAgICAgICAgICAgICAgICAgICAg ICAgICAgICAgICAgICAgICAgICAgICAgICAgICAgIC AgICAgICAgICAgICAgICAgICAgICAgICAgICAgICANCiAgICAgICAgICAgICAgICAgICAgICAgICAgIC AgICAgICAgICAgICAgICAgICAgICAgICAgICAgICAgICAgICAgICAgICAgICAgICAgICAgICAgICAgIC AgICAgICAgICAgICANCiAgICAgICAgICAgICAgICAg ICAgICAgICAgICAgICAgICAgICAgICAgICAgICAgICAgICAgICAgICAgICAgICAgICAgICAgICAgICAg ICAgICAgICAgICAgICAgICAgICAgICANCiAgICAgICAgICAgICAgICAgICAgICAgICAgICAgICAgICAg ICAgICAgICAgICAgICAgICAgICAgICAgICAgICAgIC AgICAgICAgICAgICAgICAgICAgICAgICAgICAgICAgICANCiAgICAgICAgICAgICAgICAgICAgICAgIC AgICAgICAgICAgICAgICAgICAgICAgICAgICAgICAgICAgICAgICAgICAgICAgICAgICAgICAgICAgIC AgICAgICAgICAgICAgICANCiAgICAgICAgICAgICAg ICAgICAgICAgICAgICAgICAgICAgICAgICAgICAgICAgICAgICAgICAgICAgICAgICAgICAgICAgICAg ICAgICAgICAgICAgICAgICAgICAgICAgICANCiAgICAgICAgICAgICAgICAgICAgICAgICAgICAgICAg ICAgICAgICAgICAgICAgICAgICAgICAgICAgICAgIC AgICAgICAgICAgICAgICAgICAgICAgICAgICAgICAgICAgICANCiAgICAgICAgICAgICAgICAgICAgIC AgICAgICAgICAgICAgICAgICAgICAgICAgICAgICAgICAgICAgICAgICAgICAgICAgICAgICAgICAgIC AgICAgICAgICAgICAgICAgICANCjw/iVKpH6mxaZAz fbW3B6kcMx7DSa5UXX5uy3PbKKJsVQwhvfSvPcxKEfIzJFZjCvuFRcl1LKcmDI0JrZZkZ3KuY8AxMGwp GI7YZESkAXMmnFZfEPTqYEKfYhR6KZWlQUhxFR8FsKUjOTmyLRCfTJExOwEoWGKpWVZwLNDzISGfXIJZ RLRaAKZtNcIrKCVfHRHzPOfaQOWSYZ1RJrNaK8VksV 81CJdUJd5+YXxwodSvCzbSOlZzXYKpy2VgPHv2ZU4QEQByHbooe2IuDhQmTADTUZepGX2HRBO8GQNlOH CdQi1OKYAoM807phMkDL8ERq0IQzFhWL0ims4FQbBhGVYvRvnIHsx9IUjzHC2YjTBeQStJc24zrWc6xt CsyORIsBWwuiD9JQqgXHGlfP6mNvamCV8mRZFeHe27 WpKsIeYdBFs7TIJvGW6rNKubYK1JYXI3WSwtQNFyTNMdP3nKQoBxKUEwAmLbjKuwDU4NEfFqY4XtdxPr dCAzMSAwIFINCj4+UMieyzSpNltPNyLtYCQhz5GjUPf4QY3JSIAjISmcVE7QTDYflE9zIBevSK7GIgXk ZJCiCQBYTrYgZ08tmEVsQIx2V0MoZaBqAYWsWrrzCT MgPDwvTmFtZXMgWyBdDQogID4+ID4+JXivAU9IBOygtgAuYJVkMg7XUBBmTWMyIG8cORTtELOxN4W7xE uuSNNEVeTcY5gyhtiqXP8gFLOkO765qJcysnMuLPFlRHWfFv0JDJTxPRI9MKYgpIWhIiRfFHFXRPdxOQ 5QcKHuMFZ2vM7yHSrcBZZdREHrX8kINaAqvZcxQW06 bGwgbnVsbCBdDQo+Vw2XPD8kf8ChJBn9ycMoWSfsVKD6RTneBNKkSXYtYCZkDKN4AVK9XWUBXwSzNQEn RXSdBHogGBNwVIWfig5UOGWmQXS0RED6YRHoDARmFKXtOEvvLHJjJDMrUpDaPAOmFGFiCI4GRdGdXDXp EFTqHWtzFKDaBDFojq2EQQSdQCKbYXBeINEuLEYaSX BtBReiNRTjNIL6HiQ9AERpMZZmHR0RJoLzONWpETzeDJAkWPOeBPOwul5IAHJzAHKoONU3TIAwOMLlVU LzOLluVYLsGRNtJGl8UMNmSUDmEX7ZKrAfFWCbOTQ2SLPcBVLeDZAwnw5CJMQzRXMlOoRvOTIdMKEyCI NhIXjsYCQoTRT5FQP1ACIbZVRkFA0WUpOgOFHjUdCf UBqzRFDdFYKyoi6AGZDfSALvYMA5UFYoHMHvDVRyRGehNWZrUNSvBWFaRJKjPTMyOG1QHiOpIKNuNxWn ZWlpPUGiWTMlnn0RMWDcJGGxDwXcTwLnPGLhEXUbGSxiVSUeJPJ5DdVxZIZsOORxNW1CFhMaLRPbOlk1 ZEXePMFeDQTstb0UUQZmNWZcXzx4IQNzGZVnUMAwOO jrDMPbTND5LUedETMdGTSkDO2EYqWbCCSdQvl9JdQcXNPaQJHylu9KRFTbNHYfLZTjJVAsJNQdHSQnZR eeNDBnHLQ7WyQzUONdBWUbVS1BFlQtVHMpXRL6TJtvBZQrMOAtev1AUFUcPSA9BNBcDPIuIUQkWOJdPZ amZSDyTRIoLcW1ONRiPJBtOQ7FMeZtTZXrKPS4RcQd YOSsKYZvld8MEOKdPDX6YEEhLKVrMFFtKJTcBHjbJDGpKWDgLCAlBRUmPCWzUW7RHwZxNXJaFMZ4UJho XMKtRWOmnr1VKGUxDDV0IdQ0HEOsQIRzOLGkHTdoLBHfMIDjJcX9WUNiAEQyMS7SYgXvVElnCRCPRge6 DYyjF5f0PNObWE8IB4Fgj0QkEvYfEDFBWKdmFK1wro EhUNPeRa1SS9dNJed8FUxgIEY6ETH9VNHzBZH2N3VdCNAhHbX5YgbwIPYlVi5jMRY3C3JzTdI7MbMtKp JrHSw3HBJpMWGfFUcgSVInXBK5SnMzQE9PUj1XGoG8XAF5zKTdBk0YAMY0FVtBAbXaFE5EWTl= ID Date Data Source [id number] 05/20/2020 11:56:50 AM EST [facility] Name Value Range Interpretation Code Description Data Tere rce(s) Supporting Document(s) Glucose [Mass/volume] in Capillary blood by Glucometer 164 mg/dL 70- 140 H [facility] ID Date Data Source [id number] 05/20/2020 08:01:39 AM [facility] Name Value Range Interpretation Code Description Data Tere rce(s) Supporting Document(s) Glucose [Mass/volume] in Capillary blood by Glucometer 99 mg/dL 70- 140 [facility] ID Date Data Source [id number] 05/20/2020 05:52:11 AM [facility] Name Value Range Interpretation Code Description Data Tere rce(s) Supporting Document(s) Leukocytes [#/volume] in Blood by Automated count 5.1 10*3/uL 4-10 [facility] Erythrocytes [#/volume] in Blood by Automated count 3.06 10*6/uL 4.6- 6.1 L [facility] Hemoglobin [Mass/volume] in Blood 9.8 g/dL 13.5-18 L [facility] Hematocrit [Volume Fraction] of Blood by Automated count 28.6 % 4 1-53 L [facility] Erythrocyte mean corpuscular volume [Entitic volume] by Auto mated count 93.4 fL 80-96 [facility] Erythrocyte mean corpuscular hemoglobin [Entitic mass] by Automated count 32.1 pg 27-33 [facility] Erythrocyte mean corpuscular hemoglobin concentration [Mass/volume] by Automated count 34.4 g/dL 32.0-36.0 [facility] Erythrocyte distribution width [Ratio] by Automated count 14.6 % 11.5-14.5 H [facility] Platelets [#/volume] in Blood by Automated count 148 10*3/uL 150-400 L [facility] Differential cell count method - Blood [facility] Neutrophils/100 leukocytes in Blood by Automated count 72 % [facility] Lymphocytes/100 leukocytes in Blood by Automated count 11 % [facility] Monocytes/100 leukocytes in Blood by Automated count 12 % [facility] Eosinophils/100 leukocytes in Blood by Automated count 4 % [facility] Basophils/100 leukocytes in Blood by Automated count 1 % [facility] Neutrophils [#/volume] in Blood by Automated count 3.75 10*3/uL 1.8-7 .0 [facility] Lymphocytes [#/volume] in Blood by Automated count 0.53 10*3/uL 1.2-4 .0 L [facility] Monocytes [#/volume] in Blood by Automated count 0.59 10*3/uL 0-0.8 [facility] Eosinophils [#/volume] in Blood by Automated count 0.19 10*3/uL 0-0.5 [facility] Basophils [#/volume] in Blood by Automated count 0.03 10*3/uL 0-0.2 [facility] Nucleated erythrocytes/100 leukocytes [Ratio] in Blood by Automated count 0 /100{WBCs} 0-0 [facility] ID Date Data Source [id number] 05/20/2020 04:57:45 AM EST [facility] Name Value Range Interpretation Code Description Data Tere rce(s) Supporting Document(s) Bicarbonate [Moles/volume] in Serum 18 mmol/L 22-29 L [facility] Chloride [Moles/volume] in Serum or Plasma 98 mmol/L 98-107 [facility] Creatinine [Mass/volume] in Serum or Plasma 4.35 mg/dL 0.70-1.20 H [facility] Glucose [Mass/volume] in Serum or Plasma 132 mg/dL 70-140 [facility] Potassium [Moles/volume] in Serum or Plasma 4.7 mmol/L 3.4-5.1 [facility] Sodium [Moles/volume] in Serum or Plasma 131 mmol/L 136-145 L [facility] Urea nitrogen [Mass/volume] in Serum or Plasma 42 mg/dL 8-23 H [facility] Anion gap 3 in Serum or Plasma 15 mmol/L 8-15 [facility] Osmolality of Serum or Plasma by calculation 284 mosm/kg 275-300 [facility] Creatinine/Urea nitrogen [Mass Ratio] in Serum or Plasma 10 [facility] Calcium [Mass/volume] in Serum or Plasma 8.9 mg/dL 8.8-10.2 [facility] Glomerular filtration rate/1.73 sq M pre dicted among non-blacks [Volume Rate/Area] in Serum or Plasma by Creatinine-based formula (MDRD) 12 mL/min/1.73m2 >60 L [facility] Glomerular filtration rate/1.73 sq M pre dicted among blacks [Volume Rate/Area] in Serum or Plasma by Creatinine-based formula (MDRD) 14 mL/min/1.73m2 >60 L [facility] ID Date Data Source [id number] 05/19/2020 09:31:10 PM [facility] Name Value Range Interpretation Code Description Data Tere rce(s) Supporting Document(s) Glucose [Mass/volume] in Capillary blood by Glucometer 186 mg/dL 70- 140 H [facility] ID Date Data Source [id number] 05/19/2020 06:48:35 PM [facility] Name Value Range Interpretation Code Description Data Tere rce(s) Supporting Document(s) Leukocytes [#/volume] in Blood by Automated count 6.6 10*3/uL 4-10 [facility] Erythrocytes [#/volume] in Blood by Automated count 3.26 10*6/uL 4.6- 6.1 L [facility] Hemoglobin [Mass/volume] in Blood 10.3 g/dL 13.5-18 L [facility] Hematocrit [Volume Fraction] of Blood by Automated count 30.6 % 4 1-53 L [facility] Erythrocyte mean corpuscular volume [Entitic volume] by Auto mated count 93.7 fL 80-96 [facility] Erythrocyte mean corpuscular hemoglobin [Entitic mass] by Automated count 31.6 pg 27-33 [facility] Erythrocyte mean corpuscular hemoglobin concentration [Mass/volume] by Automated count 33.7 g/dL 32.0-36.0 [facility] Erythrocyte distribution width [Ratio] by Automated count 14.5 % 11.5-14.5 [facility] Platelets [#/volume] in Blood by Automated count 163 10*3/uL 150-400 [facility] Differential cell count method - Blood [facility] Neutrophils/100 leukocytes in Blood by Automated count 73 % [facility] Lymphocytes/100 leukocytes in Blood by Automated count 12 % [facility] Monocytes/100 leukocytes in Blood by Automated count 10 % [facility] Eosinophils/100 leukocytes in Blood by Automated count 4 % [facility] Basophils/100 leukocytes in Blood by Automated count 1 % [facility] Neutrophils [#/volume] in Blood by Automated count 4.92 10*3/uL 1.8-7 .0 [facility] Lymphocytes [#/volume] in Blood by Automated count 0.79 10*3/uL 1.2-4 .0 L [facility] Monocytes [#/volume] in Blood by Automated count 0.63 10*3/uL 0-0.8 [facility] Eosinophils [#/volume] in Blood by Automated count 0.23 10*3/uL 0-0.5 [facility] Basophils [#/volume] in Blood by Automated count 0.06 10*3/uL 0-0.2 [facility] Nucleated erythrocytes/100 leukocytes [Ratio] in Blood by Automated count 0 /100{WBCs} 0-0 [facility] ID Date Data Source [id number] 05/19/2020 04:25:53 PM EST [facility] Name Value Range Interpretation Code Description Data Tere rce(s) Supporting Document(s) Glucose [Mass/volume] in Capillary blood by Glucometer 98 mg/dL 70- 140 [facility] ID Date Data Source [id number] 05/19/2020 11:31:45 AM [facility] Name Value Range Interpretation Code Description Data Tere rce(s) Supporting Document(s) Glucose [Mass/volume] in Capillary blood by Glucometer 157 mg/dL 70- 140 H [facility] ID Date Data Source [id number] 05/19/2020 09:53:00 AM EST [facility] Name Value Range Interpretation Code Description Data Tere rce(s) Supporting Document(s) SARS-CoV-2 RNA 2019 nCoV Real-Time RT-PCR: NOT DETECTED [facility] This lab was ordered by [facility] and reported by [facility]. ID Date Data Source [id number] 05/19/2020 12:33:28 PM [facility] Name Value Range Interpretation Code Description Data Tere rce(s) Supporting Document(s) Specimen source [Identifier] of Unspecified specimen [facility] SARS-CoV-2 RNA 2019 nCoV Real-Time RT-PCR: NOT DETECTED [facility] Assay Performed 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[facility] Patient has symptoms related to [facility] When did you start to experience these symptoms [Date and time] [Phen X] [facility] Patient was hospitalized because of this condition [facility] patient was admitted to ICU for [facility] Patient resides in a congregate care setting [facility] status [facility] ID Date Data Source [id number] 05/19/2020 07:25:47 AM [facility] Name Value Range Interpretation Code Description Data Tere rce(s) Supporting Document(s) Glucose [Mass/volume] in Capillary blood by Glucometer 101 mg/dL 70- 140 [facility] ID Date Data Source [id number] 05/19/2020 07:06:48 AM [facility] Name Value Range Interpretation Code Description Data Tere rce(s) Supporting Document(s) Leukocytes [#/volume] in Blood by Automated count 4.6 10*3/uL 4-10 [facility] Erythrocytes [#/volume] in Blood by Automated count 3.09 10*6/uL 4.6- 6.1 L [facility] Hemoglobin [Mass/volume] in Blood 10.0 g/dL 13.5-18 L [facility] Hematocrit [Volume Fraction] of Blood by Automated count 29.0 % 4 1-53 L [facility] Erythrocyte mean corpuscular volume [Entitic volume] by Auto mated count 94.0 fL 80-96 [facility] Erythrocyte mean corpuscular hemoglobin [Entitic mass] by Automated count 32.2 pg 27-33 [facility] Erythrocyte mean corpuscular hemoglobin concentration [Mass/volume] by Automated count 34.3 g/dL 32.0-36.0 [facility] Erythrocyte distribution width [Ratio] by Automated count 14.7 % 11.5-14.5 H [facility] Platelets [#/volume] in Blood by Automated count 159 10*3/uL 150-400 [facility] Differential cell count method - Blood [facility] Neutrophils/100 leukocytes in Blood by Automated count 68 % [facility] Lymphocytes/100 leukocytes in Blood by Automated count 15 % [facility] Monocytes/100 leukocytes in Blood by Automated count 12 % [facility] Eosinophils/100 leukocytes in Blood by Automated count 4 % [facility] Basophils/100 leukocytes in Blood by Automated count 1 % [facility] Neutrophils [#/volume] in Blood by Automated count 3.11 10*3/uL 1.8-7 .0 [facility] Lymphocytes [#/volume] in Blood by Automated count 0.71 10*3/uL 1.2-4 .0 L [facility] Monocytes [#/volume] in Blood by Automated count 0.56 10*3/uL 0-0.8 [facility] Eosinophils [#/volume] in Blood by Automated count 0.20 10*3/uL 0-0.5 [facility] Basophils [#/volume] in Blood by Automated count 0.04 10*3/uL 0-0.2 [facility] Nucleated erythrocytes/100 leukocytes [Ratio] in Blood by Automated count 0 /100{WBCs} 0-0 [facility] ID Date Data Source [id number] 05/19/2020 07:35:14 AM [facility] Name Value Range Interpretation Code Description Data Tere rce(s) Supporting Document(s) Bicarbonate [Moles/volume] in Serum 22 mmol/L 22-29 [facility] Chloride [Moles/volume] in Serum or Plasma 100 mmol/L 98-107 [facility] Creatinine [Mass/volume] in Serum or Plasma 3.72 mg/dL 0.70-1.20 H [facility] Glucose [Mass/volume] in Serum or Plasma 109 mg/dL 70-140 [facility] Potassium [Moles/volume] in Serum or Plasma 4.5 mmol/L 3.4-5.1 [facility] Hemolyzed Sodium [Moles/volume] in Serum or Plasma 133 mmol/L 136-145 L [facility] Urea nitrogen [Mass/volume] in Serum or Plasma 30 mg/dL 8-23 H [facility] Anion gap 3 in Serum or Plasma 11 mmol/L 8-15 [facility] Osmolality of Serum or Plasma by calculation 283 mosm/kg 275-300 [facility] Creatinine/Urea nitrogen [Mass Ratio] in Serum or Plasma 8 [facility] Calcium [Mass/volume] in Serum or Plasma 9.2 mg/dL 8.8-10.2 [facility] Glomerular filtration rate/1.73 sq M pre dicted among non-blacks [Volume Rate/Area] in Serum or Plasma by Creatinine-based formula (MDRD) 14 mL/min/1.73m2 >60 L [facility] Glomerular filtration rate/1.73 sq M pre dicted among blacks [Volume Rate/Area] in Serum or Plasma by Creatinine-based formula (MDRD) 17 mL/min/1.73m2 >60 L [facility] ID Date Data Source [id number] 05/18/2020 09:15:30 PM [facility] Name Value Range Interpretation Code Description Data Tere rce(s) Supporting Document(s) Glucose [Mass/volume] in Capillary blood by Glucometer 131 mg/dL 70- 140 [facility] ID Date Data Source [id number] 05/18/2020 07:05:05 PM [facility] Name Value Range Interpretation Code Description Data Tere rce(s) Supporting Document(s) Leukocytes [#/volume] in Blood by Automated count 5.8 10*3/uL 4-10 [facility] Erythrocytes [#/volume] in Blood by Automated count 3.50 10*6/uL 4.6- 6.1 L [facility] Hemoglobin [Mass/volume] in Blood 11.0 g/dL 13.5-18 L [facility] Hematocrit [Volume Fraction] of Blood by Automated count 32.8 % 4 1-53 L [facility] Erythrocyte mean corpuscular volume [Entitic volume] by Auto mated count 93.8 fL 80-96 [facility] Erythrocyte mean corpuscular hemoglobin [Entitic mass] by Automated count 31.3 pg 27-33 [facility] Erythrocyte mean corpuscular hemoglobin concentration [Mass/volume] by Automated count 33.4 g/dL 32.0-36.0 [facility] Erythrocyte distribution width [Ratio] by Automated count 14.7 % 11.5-14.5 H [facility] Platelets [#/volume] in Blood by Automated count 194 10*3/uL 150-400 [facility] Differential cell count method - Blood [facility] Neutrophils/100 leukocytes in Blood by Automated count 77 % [facility] Lymphocytes/100 leukocytes in Blood by Automated count 11 % [facility] Monocytes/100 leukocytes in Blood by Automated count 8 % [facility] Eosinophils/100 leukocytes in Blood by Automated count 3 % [facility] Basophils/100 leukocytes in Blood by Automated count 1 % [facility] Neutrophils [#/volume] in Blood by Automated count 4.50 10*3/uL 1.8-7 .0 [facility] Lymphocytes [#/volume] in Blood by Automated count 0.62 10*3/uL 1.2-4 .0 L [facility] Monocytes [#/volume] in Blood by Automated count 0.48 10*3/uL 0-0.8 [facility] Eosinophils [#/volume] in Blood by Automated count 0.20 10*3/uL 0-0.5 [facility] Basophils [#/volume] in Blood by Automated count 0.05 10*3/uL 0-0.2 [facility] Nucleated erythrocytes/100 leukocytes [Ratio] in Blood by Automated count 0 /100{WBCs} 0-0 [facility] ID Date Data Source [id number] 05/18/2020 04:29:55 PM [facility] Value Range Interpretation Code Description Data Tere rce(s) Supporting Document(s) Glucose [Mass/volume] in Capillary blood by Glucometer 138 mg/dL 70- 140 [facility] ID Date Data Source [id number] 05/18/2020 11:19:21 AM [facility] Value Range Interpretation Code Description Data Tere rce(s) Supporting Document(s) Glucose [Mass/volume] in Capillary blood by Glucometer 120 mg/dL 70- 140 [facility] ID Date Data Source [id number] 05/18/2020 10:04:42 AM [facility] Value Range Interpretation Code Description Data Tere rce(s) Supporting Document(s) Glucose [Mass/volume] in Capillary blood by Glucometer 133 mg/dL 70- 140 [facility] ID Date Data Source [id number] 05/18/2020 07:29:02 AM [facility] Value Range Interpretation Code Description Data Tere rce(s) Supporting Document(s) Glucose [Mass/volume] in Capillary blood by Glucometer 177 mg/dL 70- 140 H [facility] ID Date Data Source [id number] 05/18/2020 06:13:55 AM [facility] Value Range Interpretation Code Description Data Tere rce(s) Supporting Document(s) Bicarbonate [Moles/volume] in Serum 20 mmol/L 22-29 L [facility] Chloride [Moles/volume] in Serum or Plasma 101 mmol/L 98-107 [facility] Creatinine [Mass/volume] in Serum or Plasma 4.52 mg/dL 0.70-1.20 H [facility] Glucose [Mass/volume] in Serum or Plasma 145 mg/dL 70-140 H [facility] Potassium [Moles/volume] in Serum or Plasma 4.5 mmol/L 3.4-5.1 [facility] Sodium [Moles/volume] in Serum or Plasma 133 mmol/L 136-145 L [facility] Urea nitrogen [Mass/volume] in Serum or Plasma 46 mg/dL 8-23 H [facility] Anion gap 3 in Serum or Plasma 12 mmol/L 8-15 [facility] Osmolality of Serum or Plasma by calculation 291 mosm/kg 275-300 [facility] Creatinine/Urea nitrogen [Mass Ratio] in Serum or Plasma 10 [facility] Calcium [Mass/volume] in Serum or Plasma 9.2 mg/dL 8.8-10.2 [facility] Glomerular filtration rate/1.73 sq M pre dicted among non-blacks [Volume Rate/Area] in Serum or Plasma by Creatinine-based formula (MDRD) 11 mL/min/1.73m2 >60 L [facility] Glomerular filtration rate/1.73 sq M pre dicted among blacks [Volume Rate/Area] in Serum or Plasma by Creatinine-based formula (MDRD) 13 mL/min/1.73m2 >60 L [facility] ID Date Data Source [id number] 05/18/2020 06:40:30 AM [facility] Name Value Range Interpretation Code Description Data Tere rce(s) Supporting Document(s) Leukocytes [#/volume] in Blood by Automated count 4.8 10*3/uL 4-10 [facility] Erythrocytes [#/volume] in Blood by Automated count 3.41 10*6/uL 4.6- 6.1 L [facility] Hemoglobin [Mass/volume] in Blood 10.7 g/dL 13.5-18 L [facility] Hematocrit [Volume Fraction] of Blood by Automated count 31.9 % 4 1-53 L [facility] Erythrocyte mean corpuscular volume [Entitic volume] by Auto mated count 93.4 fL 80-96 [facility] Erythrocyte mean corpuscular hemoglobin [Entitic mass] by Automated count 31.3 pg 27-33 [facility] Erythrocyte mean corpuscular hemoglobin concentration [Mass/volume] by Automated count 33.5 g/dL 32.0-36.0 [facility] Erythrocyte distribution width [Ratio] by Automated count 14.7 % 11.5-14.5 H [facility] Platelets [#/volume] in Blood by Automated count 155 10*3/uL 150-400 [facility] Differential cell count method - Blood [facility] Neutrophils/100 leukocytes in Blood by Automated count 77 % [facility] Lymphocytes/100 leukocytes in Blood by Automated count 10 % [facility] Monocytes/100 leukocytes in Blood by Automated count 8 % [facility] Eosinophils/100 leukocytes in Blood by Automated count 5 % [facility] Neutrophils [#/volume] in Blood by Automated count 3.68 10*3/uL 1.8-7 .0 [facility] Lymphocytes [#/volume] in Blood by Automated count 0.49 10*3/uL 1.2-4 .0 L [facility] Monocytes [#/volume] in Blood by Automated count 0.40 10*3/uL 0-0.8 [facility] Eosinophils [#/volume] in Blood by Automated count 0.23 10*3/uL 0-0.5 [facility] ID Date Data Source [id number] 05/19/2020 09:27:05 AM [facility] Service Cmnt XXX-Imp : NoneMicroorganism XXX Cult : No growth 1 day Name Value Range Interpretation Code Description Data Tere rce(s) Supporting Document(s) ID Date Data Source [id number] 05/18/2020 12:54:35 AM [facility] Name Value Range Interpretation Code Description Data Tere rce(s) Supporting Document(s) Color of Urine [facility] Clarity of Urine [facility] Specific gravity of Urine by Refractometry automated 1.012 1.003 -1.030 [facility] pH of Urine by Automated test strip 5.0 5.0-8.0 [facility] Protein [Mass/volume] in Urine by Automated test strip Neg [facility] Glucose [Mass/volume] in Urine by Automated test strip 50 mg/dL Neg [facility] Ketones [Mass/volume] in Urine by Automated test strip Neg [facility] Bilirubin.total [Presence] in Urine by Automated test strip Negative [facility] Hemoglobin [Presence] in Urine by Automated test strip Neg ative [facility] Leukocyte esterase [Presence] in Urine by Automated test strip Negative [facility] Nitrite [Presence] in Urine by Automated test strip Negati ve [facility] Leukocytes [#/area] in Urine sediment by Automated count 2323 /HPF 0 -5 H [facility] Erythrocytes [#/area] in Urine sediment by Automated count 19 /HPF 0-3 H [facility] Epithelial cells.squamous [#/area] in Urine sediment by Auto mated count 1 /HPF None [facility] Mucus [#/area] in Urine sediment by Microscopy low power field None [facility] Hyaline casts [#/area] in Urine sediment by Microscopy low p ower field 9 /LPF None [facility] ID Date Data Source [id number] 05/17/2020 09:49:26 PM [facility] Name Value Range Interpretation Code Description Data Tere rce(s) Supporting Document(s) Glucose [Mass/volume] in Capillary blood by Glucometer 116 mg/dL 70- 140 [facility] ID Date Data Source [id number] 05/18/2020 05:10:14 AM [facility] Name Value Range Interpretation Code Description Data Tere rce(s) Supporting Document(s) Leukocytes [#/volume] in Blood by Automated count 4.3 10*3/uL 4-10 [facility] Erythrocytes [#/volume] in Blood by Automated count 3.13 10*6/uL 4.6- 6.1 [facility] Hemoglobin [Mass/volume] in Blood 9.9 g/dL 13.5-18 L [facility] Hematocrit [Volume Fraction] of Blood by Automated count 29.1 % 4 1-53 L [facility] Erythrocyte mean corpuscular volume [Entitic volume] by Auto mated count 92.9 fL 80-96 [facility] Erythrocyte mean corpuscular hemoglobin [Entitic mass] by Automated count 31.7 pg 27-33 [facility] Erythrocyte mean corpuscular hemoglobin concentration [Mass/volume] by Automated count 34.1 g/dL 32.0-36.0 [facility] Erythrocyte distribution width [Ratio] by Automated count 14.7 % 11.5-14.5 H [facility] Platelets [#/volume] in Blood by Automated count 147 10*3/uL 150-400 L [facility] Differential cell count method - Blood [facility] Neutrophils/100 leukocytes in Blood by Automated count 74 % [facility] Lymphocytes/100 leukocytes in Blood by Automated count 10 % [facility] Monocytes/100 leukocytes in Blood by Automated count 8 % [facility] Eosinophils/100 leukocytes in Blood by Automated count 7 % [facility] Basophils/100 leukocytes in Blood by Automated count 1 % [facility] Neutrophils [#/volume] in Blood by Automated count 3.23 10*3/uL 1.8-7 .0 [facility] Lymphocytes [#/volume] in Blood by Automated count 0.41 10*3/uL 1.2-4 .0 L [facility] Monocytes [#/volume] in Blood by Automated count 0.33 10*3/uL 0-0.8 [facility] Eosinophils [#/volume] in Blood by Automated count 0.29 10*3/uL 0-0.5 [facility] Basophils [#/volume] in Blood by Automated count 0.04 10*3/uL 0-0.2 [facility] Anisocytosis [Presence] in Blood by Light microscopy [facility] Poikilocytosis [Presence] in Blood by Light microscopy [facility] Nikhil cells [Presence] in Blood by Light [facility] ID Date Data Source [id number] 05/17/2020 09:15:54 PM [facility] Name Value Range Interpretation Code Description Data Tere rce(s) Supporting Document(s) Glucose [Mass/volume] in Capillary blood by Glucometer 125 mg/dL 70- 140 [facility] ID Date Data Source [id number] 05/17/2020 04:57:16 PM [facility] Name Value Range Interpretation Code Description Data Tere rce(s) Supporting Document(s) Glucose [Mass/volume] in Capillary blood by Glucometer 114 mg/dL 70- 140 [facility] ID Date Data Source [id number] 05/17/2020 03:29:19 PM [facility] XR CHEST FRONTAL ONLY [id number] RESULTI nterpreted by:Saúl Cruz MDINDICATION: Concern for pneumonia.TECHNIQUE: 45 degrees portable AP view of the chest.COMPARISON: Radiograph dated 02/26/2018.FINDINGS: Right-sided double lumen catheter is seen with the tip projecting over the cavoatrial junction. Medial sternotomy wires are intact. The chest wall and visualized osseous structures are grossly intact. The cardiomediastinal contours are stable. Bilateral pleural effusions, left greater than right. There is a left retrocardiac confluent opacity. No pneumothorax.IMPRESSION: Bilateral pleural effusions left greater than right with left basilar atelectasis. Underlying pneumonia or aspiration cannot be excluded.This document has been electronically signed by COREY Cruz on 05/17/2020 3:27 PM Name Value Range Interpretation Code Description Data Tere rce(s) Supporting Document(s) ID Date Data Source [id number] 05/22/2020 10:52:09 AM [facility] Service Cmnt XXX-Imp : R ACMicroorganism XXX Cult : No growth 5 days Name Value Range Interpretation Code Description Data Tere rce(s) Supporting Document(s) ID Date Data Source [id number] 05/22/2020 10:52:09 AM [facility] Service Cmnt XXX-Imp : R HANDMicroorgani sm XXX Cult : No growth 5 days Name Value Range Interpretation Code Description Data Tere rce(s) Supporting Document(s) ID Date Data Source [id number] 05/17/2020 11:24:59 AM [facility] Name Value Range Interpretation Code Description Data Tere rce(s) Supporting Document(s) Glucose [Mass/volume] in Capillary blood by Glucometer 131 mg/dL 70- 140 [facility] ID Date Data Source [id number] 05/17/2020 09:39:18 AM [facility] MR ANGIOGRAPHY HEAD WITHOUT CONTRAST 705 44FINAL RESULTInterpreted by:Javon Ervin MDHISTORY: Persistent lightheadedness, dizziness, concern for vertebrobasilar sufficiency.COMPARISON: NoneTECHNIQUE: 3-D irxn-jk-qhtgmc MRA of the [place] and 2-D as well as 3-D diis-se-xzfqcm MRA of the vessels of the neck were obtained on a 3 Madhavi magnet. Multiplanar MIP images were completed on a separate workstation. All vascular measurements by NASCET criteria.FINDINGS:MRA NECK: The vertebral arteries are codominant and patent with normal caliber from the origin to the skull base. The common carotid arteries, carotid bifurcations and cervical ICAs are also patent. Mild lumen irregularity is noted along the carotid bulb and to the left cervical ICA at the level of the skull base which may suggest atherosclerotic disease however, there is no evidence of hemodynamically significant stenosis of either ICA.MRA head: The studies degraded by motion. Specifically evaluation of the vertebral arteries and ICAs as they enter the intracranial compartment is relatively limited. The intradural vertebral arteries are grossly patent. There appears to be mild narrowing of the mid basilar artery. The superior cerebellar and posterior cerebral arteries are patent bilaterally. origin of the right [place] and near origin of the left [place] are noted set. Old is bilateral the intracranial ICAs are patent all the way up to the termini. The M1, MCA bifurcation and proximal M2/M3 branches as well as the ACAs are patent. There is no gross evidence of aneurysm or arteriovenous malformation. 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 Otherwise patent arteries of the [place]. No gross evidence of aneurysm or arteriovenous malformation.This document has been electronically signed by Javon Ervin MD on 05/17/2020 9:37 AM Name Value Range Interpretation Code Description Data Tere rce(s) Supporting Document(s) ID Date Data Source [id number] 05/17/2020 09:39:18 AM [facility] MR ANGIOGRAPHY NECK WITHOUT CONTRAST 705 47FINAL RESULTInterpreted by:Javon Ervin MDHISTORY: Persistent lightheadedness, dizziness, concern for vertebrobasilar sufficiency.COMPARISON: NoneTECHNIQUE: 3-D cudu-zp-sexayz MRA of the [place] and 2-D as well as 3-D pfqz-hk-yecfti MRA of the vessels of the neck were obtained on a 3 Madhavi magnet. Multiplanar MIP images were completed on a separate workstation. All vascular measurements by NASCET criteria.FINDINGS:MRA NECK: The vertebral arteries are codominant and patent with normal caliber from the origin to the skull base. The common carotid arteries, carotid bifurcations and cervical ICAs are also patent. Mild lumen irregularity is noted along the carotid bulb and to the left cervical ICA at the level of the skull base which may suggest atherosclerotic disease however, there is no evidence of hemodynamically significant stenosis of either ICA.MRA head: The studies degraded by motion. Specifically evaluation of the vertebral arteries and ICAs as they enter the intracranial compartment is relatively limited. The intradural vertebral arteries are grossly patent. There appears to be mild narrowing of the mid basilar artery. The superior cerebellar and posterior cerebral arteries are patent bilaterally. origin of the right [place] and near origin of the left [place] are noted set. Old is bilateral the intracranial ICAs are patent all the way up to the termini. The M1, MCA bifurcation and proximal M2/M3 branches as well as the ACAs are patent. There is no gross evidence of aneurysm or arteriovenous malformation. 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 Otherwise patent arteries of the [place]. No gross evidence of aneurysm or arteriovenous malformation.This document has been electronically signed by Javon Ervin MD on 05/17/2020 9:37 AM Name Value Range Interpretation Code Description Data Tere rce(s) Supporting Document(s) ID Date Data Source [id number] 05/17/2020 07:30:20 AM [facility] Name Value Range Interpretation Code Description Data Tere rce(s) Supporting Document(s) Glucose [Mass/volume] in Capillary blood by Glucometer 146 mg/dL 70- 140 [facility] ID Date Data Source [id number] 05/17/2020 04:54:10 AM [facility] Name Value Range Interpretation Code Description Data Tere rce(s) Supporting Document(s) Leukocytes [#/volume] in Blood by Automated count 4.6 10*3/uL 4-10 [facility] Erythrocytes [#/volume] in Blood by Automated count 3.29 10*6/uL 4.6- 6.1 L [facility] Hemoglobin [Mass/volume] in Blood 10.4 g/dL 13.5-18 L [facility] Hematocrit [Volume Fraction] of Blood by Automated count 30.6 % 4 1-53 L [facility] Erythrocyte mean corpuscular volume [Entitic volume] by Auto mated count 93.1 fL 80-96 [facility] Erythrocyte mean corpuscular hemoglobin [Entitic mass] by Automated count 31.5 pg 27-33 [facility] Erythrocyte mean corpuscular hemoglobin concentration [Mass/volume] by Automated count 33.8 g/dL 32.0-36.0 [facility] Erythrocyte distribution width [Ratio] by Automated count 14.7 % 11.5-14.5 H [facility] Platelets [#/volume] in Blood by Automated count 154 10*3/uL 150-400 [facility] Differential cell count method - Blood [facility] Neutrophils/100 leukocytes in Blood by Automated count 71 % [facility] Lymphocytes/100 leukocytes in Blood by Automated count 13 % [facility] Monocytes/100 leukocytes in Blood by Automated count 11 % [facility] Eosinophils/100 leukocytes in Blood by Automated count 4 % [facility] Basophils/100 leukocytes in Blood by Automated count 1 % [facility] Neutrophils [#/volume] in Blood by Automated count 3.27 10*3/uL 1.8-7 .0 [facility] Lymphocytes [#/volume] in Blood by Automated count 0.59 10*3/uL 1.2-4 .0 L [facility] Monocytes [#/volume] in Blood by Automated count 0.48 10*3/uL 0-0.8 [facility] Eosinophils [#/volume] in Blood by Automated count 0.18 10*3/uL 0-0.5 [facility] Basophils [#/volume] in Blood by Automated count 0.05 10*3/uL 0-0.2 [facility] Nucleated erythrocytes/100 leukocytes [Ratio] in Blood by Automated count 0 /100{WBCs} 0-0 [facility] ID Date Data Source [id number] 05/17/2020 05:15:27 AM [facility] Name Value Range Interpretation Code Description Data Tere rce(s) Supporting Document(s) Bicarbonate [Moles/volume] in Serum 24 mmol/L 22-29 [facility] Chloride [Moles/volume] in Serum or Plasma 97 mmol/L 98-107 L [facility] Creatinine [Mass/volume] in Serum or Plasma 3.70 mg/dL 0.70-1.20 H [facility] Glucose [Mass/volume] in Serum or Plasma 172 mg/dL 70-140 H [facility] Potassium [Moles/volume] in Serum or Plasma 4.3 mmol/L 3.4-5.1 [facility] Sodium [Moles/volume] in Serum or Plasma 134 mmol/L 136-145 L [facility] Urea nitrogen [Mass/volume] in Serum or Plasma 39 mg/dL 8-23 H [facility] Anion gap 3 in Serum or Plasma 13 mmol/L 8-15 [facility] Osmolality of Serum or Plasma by calculation 291 mosm/kg 275-300 [facility] Creatinine/Urea nitrogen [Mass Ratio] in Serum or Plasma 11 [facility] Calcium [Mass/volume] in Serum or Plasma 8.0 mg/dL 8.8-10.2 L [facility] Glomerular filtration rate/1.73 sq M pre dicted among non-blacks [Volume Rate/Area] in Serum or Plasma by Creatinine-based formula (MDRD) 15 mL/min/1.73m2 >60 L [facility] Glomerular filtration rate/1.73 sq M pre dicted among blacks [Volume Rate/Area] in Serum or Plasma by Creatinine-based formula (MDRD) 17 mL/min/1.73m2 >60 L [facility] ID Date Data Source [id number] 05/17/2020 05:23:56 AM [facility] Name Value Range Interpretation Code Description Data Tere rce(s) Supporting Document(s) Heparin unfractionated [Units/volume] in Platelet poor plasma by Chromogenic method 2.18 U/ml [facility] ConfirmedCalled to and read back byNADINE DOMINIQUE RN 5A [id number] AT [id number] BY 1522 ID Date Data Source [id number] 05/17/2020 02:48:08 AM [facility] Value Range Interpretation Code Description Data Tere rce(s) Supporting Document(s) [facility] TOMIOa9pRhLVJtLz66/VYOaxWKFmw9TvEBniZBj4EVopPBNfP8TwPGD4tA5aXZG3JAnEVdFvLbFtKlI0 lb [file] fts5OlnOX0TBOz8ZdxNX/skT+Agency Recruiter+L/jnqzN34qRmVc [file] mary [file] 6ItVl8uQCakC/Ph/yn51/Tbwqrnfe6yFBf5s/an/O/d3Z+J9dvy/eniJf/regional administrative assistant/Ozv/vTv/O0//Fu3/+Bv /uT3/4Pf+/GPfviD3/3+937nt9/38q7217y/469/65 vfePedt2+9dfPGb/61r3/tzTcOrn/1K6+/4jiGZ138Ql5+1DPhi6r3D982oB1y0nyvslI7zapfg4mTO2 ruFKW/LB9+dX4vN9XEm5jLY58aU+2/tI4ttNcfL9m8p4vbLCk341k/8QyObdBkyYqbBtqAFZhbldf4LK 01kyuTw0+6Tp25zAYT+pzXWnd1+RVPZee4IdptjjsM z+z5O7r/Vbpk1B4nse+heHd+cW94fCm0bnmMPC+/j3PXtBnyL/3RgR/Fle8LP5g9D9hI6/M690mWsVo3 G0/8msuDrm6UJ9A+/tk0r5aeN55592zYN9yL1hgaMZxC809VapuM/6++b21j00k88H0x+a35/Ra2kj7o L10/1VbpN9h85N1O303k3otF2t2sffip5P8sx0gBtg /knMqR4IQ3or6TZ73c051+3emNtnr7i//z167/VozqZEXohJR47/my67+c+dtVdZptI2PBc4a2yW9nma Z+hkZV3dc+xe0CLSkiqIsw/lQcUxjuP24yw76yqmAZtCfVR4k86NNcALqK9HK6OP/Xr/Ert6e9e0OE42 6/OLff38/4x5TMiop4zYlGi/nz+oG+m8R9hur338c6 VbAom2np9ZnlzN8qinL+jeHPX2+6fv2N6//Zl0XfAzfoQ1ej/Nj7bOl3gx27c3ys21hOBwpz3MXx3wcZ qxRJvNctk02J+69eDzVvbHmOfPrhhwJHzK/jlqO4z0FpUuMevEyobh0fc3xQr+pv4yrI2HM8/IRnpjNX nru1+8yNUMMzt///nM+16KT2fsU6jhb1s/k5xzTuwe laSCTdlRhMK47clHnnjD7zi/OcC05Sdp04bngce42yoEbs+6otoklAgfzZYep1qjLXfx/JW083wKo9Np 8n+y9d/6aEgxn1Mjym/f3lH2w2t4s5qyQ43pK4tfZRlLUl+3ZkV97TpeZ+oKeHc64Hmihiu1vJz+/sn7 1689bNcP/6ohuWwWMwLv19PyN4Jl096u0244dizi1a Eyhf3nLv2e3lf+1H4ouhwfKibp43155I3tQ2dt2Bi+++vesJur9/mKOKb4r+58Sq5PWGEOMr14JONu8q DIUHAJGbIae6hdoh/+q0gooTkv953jowX9u5Fl7138jyxH6pS8sr33Lnm+c1i17ne5L29+0jX215dxSt L9D0ha8HyiqaslIMow+nEfjh+TM7u8fmw/z/w6NvtG +/epj4ZlTuihtG1XjstVMw6IVjB3a/dvql0bn1soe5x89/NT+th7gp5N9/XoWakODt8Lb/wN1sOjTzr7 Q5oThuMdA+/B1OjE1iIfpAeQS+9iwpe78JhcovClGoMcmi64azDfvS5m2A1qsN3sgf+DazJbvc28Vf/n v+4x5QIKX6csUA4tWbkn8VksTHayqefSl9ppRyglza m+/q8hxw5dGLYroeIxhTnquyF56rNPaRs7gPB98ymVUBH1rWi7d9uPO88KH/v7e3e/DvZ6xlx/nNd2Lb Yce6xRpP6lm70Y1XV5BzZaWaN0dATv+HP9fFKYwksh2X77pdw4Il9vidw+t/wt0aj2ZyL1893QLZ0qYj /Pl3eJiklcABWJ3ZclzsDM0pyoAu+vbx/9Wj7+zd+X rvSpMT/273t80vd0T3Dx8tV7bJRVdtr1/36d0scuRMxCKHzIrO76GgeiYY9z0lhy5Fa59o4FEwKE8ive 26TU9s/8lzkhMFc7x1rUn4c/YcUk5ykY/t3UG4W7D/+ZWj/hU/0OzlWK57bR2Nq0MTg+2RrtuciejWA/ BUgls1ggYL9PSms1epiXBjtzX6jOrnmo/uhrT1/vFf cZZv7y7mbJ0SEkk22ETeUKQb6nSVpZJYZQbV2jS8csb/e1qI7Ysc/m5StUPGZuVfeiYa4D14/BdZTbkd +ef7EgvbDdoLUujmgX5048Mq3jvSnzqcfrfrVmBphok8ZW19xufz3Jg47drfxHo+9OqetxlxbD+rqfp8 [file] VpY0QFSnAN9uCXAWLa3+HBfoiYEudXvjTMGLSjZ5ShNvRKbkURNUPx2O ID Date Data Source [id number] 05/16/2020 09:53:03 PM [facility] Name Value Range Interpretation Code Description Data Tere rce(s) Supporting Document(s) Glucose [Mass/volume] in Capillary blood by Glucometer 219 mg/dL 70- 140 H [facility] ID Date Data Source [id number] 05/16/2020 07:58:28 PM [facility] Name Value Range Interpretation Code Description Data Tere rce(s) Supporting Document(s) Leukocytes [#/volume] in Blood by Automated count 4.2 10*3/uL 4-10 [facility] Erythrocytes [#/volume] in Blood by Automated count 3.25 10*6/uL 4.6- 6.1 L [facility] Hemoglobin [Mass/volume] in Blood 10.2 g/dL 13.5-18 L [facility] Hematocrit [Volume Fraction] of Blood by Automated count 30.4 % 4 1-53 L [facility] Erythrocyte mean corpuscular volume [Entitic volume] by Auto mated count 93.5 fL 80-96 [facility] Erythrocyte mean corpuscular hemoglobin [Entitic mass] by Automated count 31.4 pg 27-33 [facility] Erythrocyte mean corpuscular hemoglobin concentration [Mass/volume] by Automated count 33.6 g/dL 32.0-36.0 [facility] Erythrocyte distribution width [Ratio] by Automated count 14.8 % 11.5-14.5 H [facility] Platelets [#/volume] in Blood by Automated count 149 10*3/uL 150-400 L [facility] Differential cell count method - Blood [facility] Neutrophils/100 leukocytes in Blood by Automated count 75 % [facility] Lymphocytes/100 leukocytes in Blood by Automated count 10 % [facility] Monocytes/100 leukocytes in Blood by Automated count 10 % [facility] Eosinophils/100 leukocytes in Blood by Automated count 4 % [facility] Basophils/100 leukocytes in Blood by Automated count 1 % [facility] Neutrophils [#/volume] in Blood by Automated count 3.17 10*3/uL 1.8-7 .0 [facility] Lymphocytes [#/volume] in Blood by Automated count 0.44 10*3/uL 1.2-4 .0 L [facility] Monocytes [#/volume] in Blood by Automated count 0.43 10*3/uL 0-0.8 [facility] Eosinophils [#/volume] in Blood by Automated count 0.17 10*3/uL 0-0.5 [facility] Basophils [#/volume] in Blood by Automated count 0.03 10*3/uL 0-0.2 [facility] Nucleated erythrocytes/100 leukocytes [Ratio] in Blood by Automated count 0 /100{WBCs} 0-0 [facility] ID Date Data Source [id number] 05/16/2020 05:27:02 PM [facility] Name Value Range Interpretation Code Description Data Tere rce(s) Supporting Document(s) Glucose [Mass/volume] in Capillary blood by Glucometer 146 mg/dL 70- 140 H [facility] ID Date Data Source [id number] 05/16/2020 04:11:00 PM EST [facility] Name Value Range Interpretation Code Description Data Tere rce(s) Supporting Document(s) SARS-CoV-2 RNA 2019 nCoV Real-Time RT-PCR: NOT DETECTED [facility] This lab was ordered by [facility] and reported by [facility]. ID Date Data Source [id number] 05/16/2020 08:37:01 PM EST [facility] Name Value Range Interpretation Code Description Data Tere rce(s) Supporting Document(s) Specimen source [Identifier] of Unspecified specimen [facility] SARS-CoV-2 RNA 2018 nCoV Real-Time RT-PCR: NOT DETECTED [facility] Assay Performed 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[facility] Patient has symptoms related to [facility] When did you start to experience these symptoms [Date and time] [Phen X] [facility] Patient was hospitalized because of this condition [facility] patient was admitted to ICU for [facility] Patient resides in a congregate care setting [facility] status [facility] ID Date Data Source [id number] 05/16/2020 03:42:26 PM [facility] Value Range Interpretation Code Description Data Tere rce(s) Supporting Document(s) Glucose [Mass/volume] in Capillary blood by Glucometer 106 mg/dL 70- 140 [facility] ID Date Data Source [id number] 05/16/2020 03:17:58 PM [facility] Name Value Range Interpretation Code Description Data Tere rce(s) Supporting Document(s) [facility] OVOZZl3qBcQYHnPae1ZjGyJdBXRrIK4qkol7M8K2hFIsV4XbfJFok2cwY6KkA0TwXYOiZFKERC8RuPCv jb2 [file] i2wpcmki/qy1+//fbD+9+9+/oksana+0//+hJ41yeb67bfm/vp account director/Yd3bx/fffr4/f1ladd2S4hsg7U8a717EM 3xoMYw5TZNx/99/fbX73/h8XMLVt+9//bD3/jr+0Ps f/2s18mT40/9+Pb+j1dmfirl66z//ppw0b4635z9uf+8vay/ePf1tx/wviwzd4507jeb20/7+7/xa5K1 /AOQM870+M3r7u+++qef/pln6Lr/7F9+3s4B37dyagJnZq++7vQv7z/31i2He7+/ucr3nrK1K4k+4W/8 zO0q3D/j3iq5653/69w8O64c28Nrs66+0cHSr9r40l 2gsdz84gc//fDLv/Gft/t2/+dXP/753//4lz/98Ie3//N/v33z44//87//8Jf/8cMP//D23ff/869/fP vN93/4/tUQo/3b37/9+Oe39vP+c3+c4cKSV3c9/eab//Ji/HTS/cNqf/rTz/+Ar93KYxayGm/fn8OqiA Llxsn6r/8XoC+fHnD/4/UNI1xS42VV78o/ZvcfezY8 J7b5P6PEZz4+nuurV59/l73fKD2Bm//Bxx/+/Ye//QQk72z9v1/52mvlsB046+HdZxVtn/8IQiNr8g9D o1E611/3DUs85q535rurqoULuKTvf2Yz5/3w57/+49tfvv/r57/++oy+RVKd+4/+xFfk/1rY//HT3z7Q bz6+/fHPf/3hL//39//uG284FOrrV74/b2FyjZ/+/A H/+eN3b3/4X69H/+OPf/1r41zHra/8fvzEg/3zp5//93gb3d3rV5N6t/y86/7s1/0JPV+iV3EnI5e9C+ xCLBaPB/gnjh8Od1570Kjt2i8/f374z/59dr8MTmeY/y007JDo7pf825/5bKb5/EV88/1/kCZ206ztS9 //r99//59//P7P//X/n2b4+OOPf/riuhMC/+RPzjP/ +sfff/H6vHCo+vLWhQXuP/j0w+//+5//+PvXbb54++41/7z/8P4nf+wqHvHH//nXV9/5wxe/+PjlL//1 qy8//vL9l//11u4i+PN/+0575q10+k6VtaHpM4///5/lHj43zcjR/ub7/+vDM8e61k/f+Y3yFDbYE2/d 4z4/dm/aFzOH4o836zFSpjc5urr9chR+/fcXqt4myG sLGB6v++ORX67p3mcm4bJzp8aXboiX/g1nrRd3NuKpHZQ9qgSmpOxaxnOjNghSCLxsDGGdTdb7NC8EwT BuIIUvK3T5KSDwuw5jCHPnIWDxdADmYhKpFPOLAY8QbTWlAI8UXHk4GBBuVWAaAuGoUCPjjoZ0JSQvNT HyAIXmM6XnkuGmjVBaVMBkYy0+DY6az1CnIfUdBRPf Bra4TP8ElTNeXB2UtSHytH8bcrMlI516crFtPHKvBmofx7RmRVmcZIOAAN2SUUE0CQW7WIWgLd4+ZW5k f3RnQnMwJCXrYav1BW1NnAOjx6WvRS6OC2SrWEPwMPYPQGH7p0EfLHBaprlfgsosH2WiECR2kM3mAOX0 ESPgJApwBFIuOPPqFOB3HXyjSWkwAKKhLJBaNBVsNA RcKQc3oXTgJM0HJ1RoCORlZTAIQDDjxeYzJz7oZNPGUb9RD6LFUBVORBuMFWHKBGU8HTS7RVPcBJ6TlR WwSOR7CItHKVWVNZyTNEzaWoEuf4M1EMRhS4SvBHZgnjVqZNNSZNizHyehFN3xfNknjuiwY0LrnWGyPK FGMCCzFOJqVFAlCNNwZ1Pzp7Z2I4NqBNvWDFQXJVaP MNfoCfX8s24xenQIOCGgCLSiLR9+MU7xc2UwKv2ZHGYeRT3lfvo2CN8AuKLjHG8MCXckijCoF7aiseKr FuCgVNZVJB5yJ7UgeK00RJV+FzZaFW7ilxq7nnGfKkWtRFPkGTAqSXEfXPmiQLPlYCSdZLRbLLJ1BYA5 REYvRsWePWDrAhI1WsgpMHQfBGWmhfANHNFjEPK6XL InIRZqLVDhBWVyKEndBKWsNFH1KjPfNILuGQKbJD0nHsQdFSMwQXNpDMBvXiF3IfAdSySOZBYbKAGmXI OaWnHkOJWfXDFbUSzkGMPyUZTsOXv0WDQtMCXrYO6yZtAzMWWoRAAyXPYlILRfTQMafaNZSPJrTAQuWQ Y3RIZzSBZiBSFwHMtxLFLtDJDfTYA3ALPdOVDoZS1v RgRjRQKdEIB2YhFmEPCzYXFvqqUWGZGhDJSvZMU7QTXiEKZfUUGiHEfyJUKbPRGqEyC5BZSjGTKsTY6m LkPiBQLiOID9ZQSyVUVuYRMjnpKWXFHoEMJiRWs2LxJsDSPtAZYmBDpgNJEnYAPoTDqdITCaWBAwQO9a XaGmQSJrOUHlTVPnBOKoFVYrwgKGXZDjRLOjOSY6Bs TcGKDfECDyJPtyORSwTPEkQIQ3SWZhRMCmWX7oJwTeVGUfMnUyXvZuOMPbSUEptbGMQQMdLMEfLMCgYY MqPUYzNQCkIKexSEGvFPSgSiU1HFUqPRJoDF8kMkDgKVRbTJO5KYNyPQJuMFEtbaJFKXViKVGbYDDmLV N7QNBgIMVvJBk6caAivMQeZgi6Gf9MeDccLZV5Qh8O pkSwKXXzJNWVMh0Mu571YRWrUVJAShw+VaeebJBleBswULUIWkZ9KrPUGPTYI2B= ID Date Data Source [id number] 05/16/2020 02:09:36 PM [facility] Name Value Range Interpretation Code Description Data Tere rce(s) Supporting Document(s) Glucose [Mass/volume] in Capillary blood by Glucometer 104 mg/dL 70- 140 [facility] ID Date Data Source [id number] 05/16/2020 12:44:56 PM [facility] Name Value Range Interpretation Code Description Data Tere rce(s) Supporting Document(s) [facility] WTTCJd8kQmOXBcRi11/ULXigMMAwu7AnOOoyAUt8TZhiAPQmO8LzACT3kD0jHKZ4YGySAiLeRwSiDiV6 lbm [file] cF8HKWdN7Wao/FNiQ7vOovMrMyrC5WVUfHXTIE5+O5RIH7csNgwD/lrj0IRIq/NnMnoA5r0fjlHzF/EVENT TECHNICIAN [file] SvAdHFuaP4GtASbtSdUbEA2ZOr1HCaI1QER9qWYhUx7YHSIfDgWXZhYgUR9SAHu= ID Date Data Source [id number] 05/16/2020 12:28:51 PM [facility] Value Range Interpretation Code Description Data Tere rce(s) Supporting Document(s) Glucose [Mass/volume] in Capillary blood by Glucometer 161 mg/dL 70- 140 H [facility] ID Date Data Source [id number] 05/16/2020 08:11:46 AM [facility] Name Value Range Interpretation Code Description Data Tere rce(s) Supporting Document(s) Glucose [Mass/volume] in Capillary blood by Glucometer 150 mg/dL 70- 140 H [facility] ID Date Data Source [id number] 05/16/2020 07:02:32 AM [facility] Name Value Range Interpretation Code Description Data Tere rce(s) Supporting Document(s) Leukocytes [#/volume] in Blood by Automated count 5.1 10*3/uL 4-10 [facility] Erythrocytes [#/volume] in Blood by Automated count 3.13 10*6/uL 4.6- 6.1 L [facility] Hemoglobin [Mass/volume] in Blood 10.0 g/dL 13.5-18 L [facility] Hematocrit [Volume Fraction] of Blood by Automated count 29.6 % 4 1-53 L [facility] Erythrocyte mean corpuscular volume [Entitic volume] by Auto mated count 94.7 fL 80-96 [facility] Erythrocyte mean corpuscular hemoglobin [Entitic mass] by Automated count 31.9 pg 27-33 [facility] Erythrocyte mean corpuscular hemoglobin concentration [Mass/volume] by Automated count 33.7 g/dL 32.0-36.0 [facility] Erythrocyte distribution width [Ratio] by Automated count 15.2 % 11.5-14.5 H [facility] Platelets [#/volume] in Blood by Automated count 150 10*3/uL 150-400 [facility] Differential cell count method - Blood [facility] Neutrophils/100 leukocytes in Blood by Automated count 66 % [facility] Lymphocytes/100 leukocytes in Blood by Automated count 20 % [facility] Monocytes/100 leukocytes in Blood by Automated count 9 % [facility] Eosinophils/100 leukocytes in Blood by Automated count 4 % [facility] Basophils/100 leukocytes in Blood by Automated count 1 % [facility] Neutrophils [#/volume] in Blood by Automated count 3.39 10*3/uL 1.8-7 .0 [facility] Lymphocytes [#/volume] in Blood by Automated count 0.99 10*3/uL 1.2-4 .0 L [facility] Monocytes [#/volume] in Blood by Automated count 0.47 10*3/uL 0-0.8 [facility] Eosinophils [#/volume] in Blood by Automated count 0.20 10*3/uL 0-0.5 [facility] Basophils [#/volume] in Blood by Automated count 0.04 10*3/uL 0-0.2 [facility] Nucleated erythrocytes/100 leukocytes [Ratio] in Blood by Automated count 0 /100{WBCs} 0-0 [facility] ID Date Data Source [id number] 05/16/2020 07:30:36 AM [facility] Name Value Range Interpretation Code Description Data Tere rce(s) Supporting Document(s) Bicarbonate [Moles/volume] in Serum 17 mmol/L 22-29 L [facility] Chloride [Moles/volume] in Serum or Plasma 99 mmol/L 98-107 [facility] Creatinine [Mass/volume] in Serum or Plasma 5.14 mg/dL 0.70-1.20 H [facility] Glucose [Mass/volume] in Serum or Plasma 174 mg/dL 70-140 H [facility] Potassium [Moles/volume] in Serum or Plasma 4.9 mmol/L 3.4-5.1 [facility] Sodium [Moles/volume] in Serum or Plasma 133 mmol/L 136-145 [facility] Urea nitrogen [Mass/volume] in Serum or Plasma 77 mg/dL 8-23 H [facility] Anion gap 3 in Serum or Plasma 17 mmol/L 8-15 H [facility] Osmolality of Serum or Plasma by calculation 303 mosm/kg 275-300 [facility] [facility] Creatinine/Urea nitrogen [Mass Ratio] in Serum or Plasma 15 [facility] Calcium [Mass/volume] in Serum or Plasma 8.7 mg/dL 8.8-10.2 [facility] Glomerular filtration rate/1.73 sq M pre dicted among non-blacks [Volume Rate/Area] in Serum or Plasma by Creatinine-based formula (MDRD) 10 mL/min/1.73m2 >60 L [facility] Glomerular filtration rate/1.73 sq M pre dicted among blacks [Volume Rate/Area] in Serum or Plasma by Creatinine-based formula (MDRD) 11 mL/min/1.73m2 >60 L [facility] ID Date Data Source [id number] 05/15/2020 09:07:34 PM [facility] Value Range Interpretation Code Description Data Tere rce(s) Supporting Document(s) Glucose [Mass/volume] in Capillary blood by Glucometer 193 mg/dL 70- 140 [facility] ID Date Data Source [id number] 05/15/2020 07:19:27 PM [facility] Name Value Range Interpretation Code Description Data Tere rce(s) Supporting Document(s) Leukocytes [#/volume] in Blood by Automated count 4.9 10*3/uL 4-10 [facility] Erythrocytes [#/volume] in Blood by Automated count 2.99 10*6/uL 4.6- 6.1 L [facility] Hemoglobin [Mass/volume] in Blood 9.4 g/dL 13.5-18 L [facility] Hematocrit [Volume Fraction] of Blood by Automated count 28.0 % 4 1-53 L [facility] Erythrocyte mean corpuscular volume [Entitic volume] by Auto mated count 93.7 fL 80-96 [facility] Erythrocyte mean corpuscular hemoglobin [Entitic mass] by Automated count 31.6 pg 27-33 [facility] Erythrocyte mean corpuscular hemoglobin concentration [Mass/volume] by Automated count 33.7 g/dL 32.0-36.0 [facility] Erythrocyte distribution width [Ratio] by Automated count 14.8 % 11.5-14.5 H [facility] Platelets [#/volume] in Blood by Automated count 142 10*3/uL 150-400 L [facility] Differential cell count method - Blood [facility] Neutrophils/100 leukocytes in Blood by Automated count 71 % [facility] Lymphocytes/100 leukocytes in Blood by Automated count 15 % [facility] Monocytes/100 leukocytes in Blood by Automated count 11 % [facility] Eosinophils/100 leukocytes in Blood by Automated count 3 % [facility] Basophils/100 leukocytes in Blood by Automated count 0 % [facility] Neutrophils [#/volume] in Blood by Automated count 3.52 10*3/uL 1.8-7 .0 [facility] Lymphocytes [#/volume] in Blood by Automated count 0.72 10*3/uL 1.2-4 .0 L [facility] Monocytes [#/volume] in Blood by Automated count 0.53 10*3/uL 0-0.8 [facility] Eosinophils [#/volume] in Blood by Automated count 0.13 10*3/uL 0-0.5 [facility] Basophils [#/volume] in Blood by Automated count 0.02 10*3/uL 0-0.2 [facility] Nucleated erythrocytes/100 leukocytes [Ratio] in Blood by Automated count 0 /100{WBCs} 0-0 [facility] ID Date Data Source [id number] 05/15/2020 05:18:57 PM [facility] Value Range Interpretation Code Description Data Tere rce(s) Supporting Document(s) Glucose [Mass/volume] in Capillary blood by Glucometer 87 mg/dL 70- 140 [facility] ID Date Data Source [id number] 05/15/2020 12:09:56 PM [facility] Value Range Interpretation Code Description Data Tere rce(s) Supporting Document(s) Glucose [Mass/volume] in Capillary blood by Glucometer 233 mg/dL 70- 140 H [facility] ID Date Data Source [id number] 05/15/2020 12:23:25 PM [facility] Value Range Interpretation Code Description Data Tere rce(s) Supporting Document(s) Platelet aggregation ADP induced [Units/volume] in Platelet rich plasma 325 PRU <208 H [facility] (NOTE)<208 PRU Therapeutic range fo r P2Y12 [id number] PRU Low response to P2Y12 inhibitors ID Date Data Source [id number] 05/15/2020 12:34:26 PM [facility] Value Range Interpretation Code Description Data Tere rce(s) Supporting Document(s) Creatine kinase [Enzymatic activity/volume] in Serum or Plasma 35 U /L 20-200 [facility] ID Date Data Source [id number] 05/15/2020 08:28:03 AM [facility] Value Range Interpretation Code Description Data Tere rce(s) Supporting Document(s) Glucose [Mass/volume] in Capillary blood by Glucometer 154 mg/dL 70- 140 [facility] ID Date Data Source [id number] 05/15/2020 04:42:13 AM [facility] Value Range Interpretation Code Description Data Tere rce(s) Supporting Document(s) Leukocytes [#/volume] in Blood by Automated count 4.8 10*3/uL 4-10 [facility] Erythrocytes [#/volume] in Blood by Automated count 2.89 10*6/uL 4.6- 6.1 L [facility] Hemoglobin [Mass/volume] in Blood 9.3 g/dL 13.5-18 L [facility] Hematocrit [Volume Fraction] of Blood by Automated count 26.7 % 4 1-53 L [facility] Erythrocyte mean corpuscular volume [Entitic volume] by Auto mated count 92.5 fL 80-96 [facility] Erythrocyte mean corpuscular hemoglobin [Entitic mass] by Automated count 32.1 pg 27-33 [facility] Erythrocyte mean corpuscular hemoglobin concentration [Mass/volume] by Automated count 34.7 g/dL 32.0-36.0 [facility] Erythrocyte distribution width [Ratio] by Automated count 14.7 % 11.5-14.5 H [facility] Platelets [#/volume] in Blood by Automated count 128 10*3/uL 150-400 L [facility] Differential cell count method - Blood [facility] Neutrophils/100 leukocytes in Blood by Automated count 81 % [facility] Lymphocytes/100 leukocytes in Blood by Automated count 8 % [facility] Monocytes/100 leukocytes in Blood by Automated count 11 % [facility] Eosinophils/100 leukocytes in Blood by Automated count 0 % [facility] Basophils/100 leukocytes in Blood by Automated count 0 % [facility] Neutrophils [#/volume] in Blood by Automated count 3.88 10*3/uL 1.8-7 .0 [facility] Lymphocytes [#/volume] in Blood by Automated count 0.39 10*3/uL 1.2-4 .0 L [facility] Monocytes [#/volume] in Blood by Automated count 0.54 10*3/uL 0-0.8 [facility] Eosinophils [#/volume] in Blood by Automated count 0.01 10*3/uL 0-0.5 [facility] Basophils [#/volume] in Blood by Automated count 0.01 10*3/uL 0-0.2 [facility] Nucleated erythrocytes/100 leukocytes [Ratio] in Blood by Automated count 0 /100{WBCs} 0-0 [facility] ID Date Data Source [id number] 05/15/2020 04:59:14 AM [facility] Name Value Range Interpretation Code Description Data Tere rce(s) Supporting Document(s) Bicarbonate [Moles/volume] in Serum 21 mmol/L 22-29 L [facility] Chloride [Moles/volume] in Serum or Plasma 97 mmol/L 98-107 L [facility] Creatinine [Mass/volume] in Serum or Plasma 3.87 mg/dL 0.70-1.20 H [facility] Glucose [Mass/volume] in Serum or Plasma 200 mg/dL 70-140 H [facility] Potassium [Moles/volume] in Serum or Plasma 4.7 mmol/L 3.4-5.1 [facility] Sodium [Moles/volume] in Serum or Plasma 131 mmol/L 136-145 L [facility] Urea nitrogen [Mass/volume] in Serum or Plasma 62 mg/dL 8-23 H [facility] Anion gap 3 in Serum or Plasma 13 mmol/L 8-15 [facility] Osmolality of Serum or Plasma by calculation 295 mosm/kg 275-300 [facility] Creatinine/Urea nitrogen [Mass Ratio] in Serum or Plasma 16 [facility] Calcium [Mass/volume] in Serum or Plasma 8.6 mg/dL 8.8-10.2 L [facility] Glomerular filtration rate/1.73 sq M pre dicted among non-blacks [Volume Rate/Area] in Serum or Plasma by Creatinine-based formula (MDRD) 14 mL/min/1.73m2 >60 L [facility] Glomerular filtration rate/1.73 sq M pre dicted among blacks [Volume Rate/Area] in Serum or Plasma by Creatinine-based formula (MDRD) 16 mL/min/1.73m2 >60 L [facility] ID Date Data Source [id number] 05/14/2020 07:14:22 PM [facility] Name Value Range Interpretation Code Description Data Tere rce(s) Supporting Document(s) Color of Urine [facility] Clarity of Urine [facility] Specific gravity of Urine by Refractometry automated 1.018 1.003 -1.030 [facility] pH of Urine by Automated test strip 5.0 5.0-8.0 [facility] Protein [Mass/volume] in Urine by Automated test strip [facility] Glucose [Mass/volume] in Urine by Automated test strip 150 mg/dL Neg [facility] Ketones [Mass/volume] in Urine by Automated test strip Neg [facility] Bilirubin.total [Presence] in Urine by Automated test strip Negative [facility] Hemoglobin [Presence] in Urine by Automated test strip Neg [facility] Leukocyte esterase [Presence] in Urine by Automated test strip Negative [facility] Nitrite [Presence] in Urine by Automated test strip Negati ve [facility] Leukocytes [#/area] in Urine sediment by Automated count 1010 /HPF 0 -5 H [facility] Erythrocytes [#/area] in Urine sediment by Automated count 10 /HPF 0-3 H [facility] Leukocyte clumps [#/area] in Urine sediment by Automated count None [facility] Bacteria [#/area] in Urine sediment by Automated count Non e [facility] Mucus [#/area] in Urine sediment by Microscopy low power field None [facility] ID Date Data Source [id number] 05/16/2020 11:11:10 AM [facility] Service Cmnt XXX-Imp : NoneMicroorganism XXX Cult : Greater than 100,000 col/mlKlebsiella oxytocaATTENTION This species is always resistant to ampicillin and ticarcillin. Name Value Range Interpretation Code Description Data Tere rce(s) Supporting Document(s) ID Date Data Source [id number] 05/14/2020 06:27:32 PM [facility] Name Value Range Interpretation Code Description Data Tere rce(s) Supporting Document(s) Leukocytes [#/volume] in Blood by Automated count 4.6 10*3/uL 4-10 [facility] Erythrocytes [#/volume] in Blood by Automated count 3.23 10*6/uL 4.6- 6.1 L [facility] Hemoglobin [Mass/volume] in Blood 10.4 g/dL 13.5-18 L [facility] Hematocrit [Volume Fraction] of Blood by Automated count 29.8 % 4 1-53 L [facility] Erythrocyte mean corpuscular volume [Entitic volume] by Auto mated count 92.3 fL 80-96 [facility] Erythrocyte mean corpuscular hemoglobin [Entitic mass] by Automated count 32.3 pg 27-33 [facility] Erythrocyte mean corpuscular hemoglobin concentration [Mass/volume] by Automated count 34.9 g/dL 32.0-36.0 [facility] Erythrocyte distribution width [Ratio] by Automated count 14.6 % 11.5-14.5 H [facility] Platelets [#/volume] in Blood by Automated count 136 10*3/uL 150-400 L [facility] Differential cell count method - Blood [facility] Neutrophils/100 leukocytes in Blood by Automated count 93 % [facility] Lymphocytes/100 leukocytes in Blood by Automated count 5 % [facility] Monocytes/100 leukocytes in Blood by Automated count 2 % [facility] Eosinophils/100 leukocytes in Blood by Automated count 0 % [facility] Basophils/100 leukocytes in Blood by Automated count 0 % [facility] Neutrophils [#/volume] in Blood by Automated count 4.24 10*3/uL 1.8-7 .0 [facility] Lymphocytes [#/volume] in Blood by Automated count 0.24 10*3/uL 1.2-4 .0 L [facility] Monocytes [#/volume] in Blood by Automated count 0.09 10*3/uL 0-0.8 [facility] Eosinophils [#/volume] in Blood by Automated count 0.00 10*3/uL 0-0.5 [facility] Basophils [#/volume] in Blood by Automated count 0.00 10*3/uL 0-0.2 [facility] Nucleated erythrocytes/100 leukocytes [Ratio] in Blood by Automated count 0 /100{WBCs} 0-0 [facility] ID Date Data Source [id number] 05/14/2020 05:28:19 PM [facility] Name Value Range Interpretation Code Description Data Tere rce(s) Supporting Document(s) Glucose [Mass/volume] in Capillary blood by Glucometer 169 mg/dL 70- 140 [facility] ID Date Data Source [id number] 05/14/2020 02:32:21 PM [facility] Name Value Range Interpretation Code Description Data Tere rce(s) Supporting Document(s) [facility] JURAPp9jIrLNQlYbt4DyRqOzNQWdPV1kxyl1E8E2gAGjX0FewNDsa7iaE5ClO3RqKRLdQMQNUR3XoDJi jb2 [file] /MD97L5/7CEqdu67g/f/7f13f+MzUt39/J0DG594exg0t5/xa6323nd4+vuPX75+63tDp5n60tJFd//6 Xz7/8xYpa65/99L+7u1bf0o3E54/++X7X4RR//Xvf3 m0BYJvvqaToe723+37z7/99Oxba261D/yLt09v//zut+6lXdvzoxzh0712Rzvz+G3bC9NU5xZf1e//1d /73M7C14/986/ff3i7e/vu4+lkmu4eM1s21mp6l40kb/X5Dz+9TJxOm//27bsvf/Xh/rhqX0w0/ut3H3 71/rA2w4n31Fi/+iQ4FJ5nOhhR//ynf//9X/74w7+9 /ff/8/bb3//hD9//5S8/fP+Mk6r02al//l5GJ6rWYK2iy//25z+9tZ/rz+Yl2SiOF2sI2x+//quxEwVU 90XV/vjHn/1El8V8KLgdV/zH3wJv/mWPB3sya/7/HUZb5oHiq9x+pRKB6q4dyf2bN53HuBmS/+ry9mta w4X/6/KYhGd2kwksZZu6T/Dxh3//5TGs84rjnt36jh oXb19/86t3X/cftew9WHfPv6H/rW9Fku8d5hginv6Od9/6pJElCkkQM3eM3OhV6zzs/vSf//j2l+//84 zqQf28jP/LY3/uD/2Rdyi+erD/+tNrb+jbj2+//9N//vCX//DBal6iyy4189pf7c8Ck2x/vfwG/+njd2 //9j9ff/33f/5VD66yA+e02Ak6vHb5h18//6dPv+Nt DogT21r+lCbsTx0L206mKvH/lOsnhn/YXhWr98zP/dRuD/Ttzz7+7NPb9//7h//390zp9LGLguNxOtr5 Jt4cb//hCe2ghS82X75+/g8/ur3rR+jn3//P333/H7///k9//f3HDB///Oc/fnbdRxb/5CP7P3/99720 2doQdsRuNU1z8/j0w+/+3z/9/nevn/nszecaP/lkkI zkJ//vV03R926++/ab13r6+btPv/7rXw3/pVb/r1+Pj+8+0pN5we5/2n2ck6Ud16yH/Nvv/64l6vPrv/ /+0cYdXf0nOG02V6h3vh/ev4TXm/u8Th25qs5sd60gAbyCwm/qh1gBPpxF5tEr1752/jjprE604j6Db7 lvVts/1A1QOu5+qRvnvvJplVIjTT3LZP6vx2IgQuB3 STJld9WfUTtdBXz0hROxIMdxxgDeg8LquuznN0Pat9BeSgRlCIGuXrFyByk3NEUjXhJ6uYJrPbLzVRYx I6ClPPPtLeQ0QqImZRCFRL1BPKPzmxFzJhNgJHQ+TrZrIE9skzbbEEPef5TjTBozTRnlZJLnO2A5fEod VUPcZ9XicI30ODWaY8FzuiZ6BGM1OTFePoToAAMegV AxOSAwIFI+YdAiYG4ksikgGNEro0ZwHOfzBVT4pW8xLAnVZBENSCiYEPuiAoH2k13jgcLOZBMhYVLxZA 1SdrCzqHzjgrPvfFJnWRX2YtPbNBQbAYIsSDNtAWBNZWJtNXXwZNPmXTHjD5CofUwxKVtJMGSFLJhEKU esBwEfr5I7AZDknzKNVF2AIFjDKndsI3dSGMuAXJAq ATPmIzZ6CAPmQ8TbmcBrsJQmAQGSKUasQaijSHIchH3dfExrB8LvMGV8d6BsQC5GH9GvAWLqECLMSGT5 v3SaPCGvfeorjhtiTgJjSFBuSAEzNHNoBM6Tqc7xgAWczsPiODRCFNmeKknjGC4riIzgebwgF4PyhLQo KSA+NrLkXX9ppq8+RtVrRUVeAmi8WQIwQGbzBQPrOF DgDGQrL8pqILYwEiKeCMThMvHuJM9Oy7RomDGjFo4bpzKeExdWqNPlCpesFYXxRGNoASTnHfZDIYFhNJ GhRYUfPKG4YTDrJDFcWVnkMJLnXAZeLuDyWPXqLLKzZF7sTkVoLOMvTwN5XlPrZXSyTWCqjmFTHGFxWO K1KwH1XSNlLEWkCWIrOXocTMShAWPcJNEjXGK6OLA6 LUDuGuRyZYPtMMTwFYIhVDWeCYSuhsDGQAKcOXXzFJU7JFRmQCXmSFCbACsoIVZwHRXyJTjpXNBeMQGn EA7vIrPmFKQhFRUrRZjhTIKdATIhxvFXZDWnGLZiJEGdJVVhWGTqTWBbFSwbXQQqJKPiWVScNDNlFBFu SM4kMjKfBBWeFWZ2YBSiITGyMEPjycMSCCLuHJEtMI x4VEUrLUUhLCGwGRreMJXtDLUvWYM6NOYtCLYjZL4yGvFlFJKnTOT1AnHhWYYkDYTlxaJYCBWzJXWlAY W4IbEqEITnQCMnRQdjSDPjAOXzHCcpXCDyUAEfTA9rAqOyEUJjYTGoRXdhLDBeNGIbowTRPSVnBHXmMB NeIwUeETUsFQImLRptPAEnJDVvKxY9YEVkTCJaAH2z QdSpHTAkPMO1ABbyCQOxZVDlxdWKTJZmSCSmLMrjHTDxCZWeIGLdKTwiJJSiLOBqQKL1AAPzWFKtBU8k HjGbJIRtUYJsIDRbIuE9YhJaKcAKuEBviBxcmwa7SJziP3u8PJMdIXwfHA6larJvLWRgEgqvEr8rlKK4 XCGtMlyFZt4Ss0UvfqS6mjAoZdUjIQL9LkDmAL9X ID Date Data Source [id number] 05/14/2020 02:30:41 PM [facility] Value Range Interpretation Code Description Data Tere rce(s) Supporting Document(s) Glucose [Mass/volume] in Capillary blood by Glucometer 156 mg/dL 70- 140 [facility] ID Date Data Source [id number] 05/14/2020 12:21:35 PM [facility] Value Range Interpretation Code Description Data Tere rce(s) Supporting Document(s) Kaolin activated time [Units/volume] in Blood 246 [facility] ID Date Data Source [id number] 05/14/2020 11:46:11 AM [facility] Value Range Interpretation Code Description Data Tere rce(s) Supporting Document(s) Kaolin activated time [Units/volume] in Blood 197 [facility] ID Date Data Source [id number] 05/14/2020 08:54:47 AM [facility] Value Range Interpretation Code Description Data Tere rce(s) Supporting Document(s) Glucose [Mass/volume] in Capillary blood by Glucometer 189 mg/dL 70- 140 [facility] ID Date Data Source [id number] 05/14/2020 04:12:04 AM [facility] Value Range Interpretation Code Description Data Tere rce(s) Supporting Document(s) Leukocytes [#/volume] in Blood by Automated count 5.2 10*3/uL 4-10 [facility] Erythrocytes [#/volume] in Blood by Automated count 3.38 10*6/uL 4.6- 6.1 [facility] Hemoglobin [Mass/volume] in Blood 10.5 g/dL 13.5-18 L [facility] Hematocrit [Volume Fraction] of Blood by Automated count 31.9 % 4 1-53 L [facility] Erythrocyte mean corpuscular volume [Entitic volume] by Auto mated count 94.3 fL 80-96 [facility] Erythrocyte mean corpuscular hemoglobin [Entitic mass] by Automated count 31.1 pg 27-33 [facility] Erythrocyte mean corpuscular hemoglobin concentration [Mass/volume] by Automated count 33.0 g/dL 32.0-36.0 [facility] Erythrocyte distribution width [Ratio] by Automated count 15.0 % 11.5-14.5 H [facility] Platelets [#/volume] in Blood by Automated count 126 10*3/uL 150-400 L [facility] Differential cell count method - Blood [facility] Neutrophils/100 leukocytes in Blood by Automated count 91 % [facility] Lymphocytes/100 leukocytes in Blood by Automated count 5 % [facility] Monocytes/100 leukocytes in Blood by Automated count 3 % [facility] Eosinophils/100 leukocytes in Blood by Automated count 1 % [facility] Basophils/100 leukocytes in Blood by Automated count 0 % [facility] Neutrophils [#/volume] in Blood by Automated count 4.66 10*3/uL 1.8-7 .0 [facility] Lymphocytes [#/volume] in Blood by Automated count 0.28 10*3/uL 1.2-4 .0 L [facility] Monocytes [#/volume] in Blood by Automated count 0.16 10*3/uL 0-0.8 [facility] Eosinophils [#/volume] in Blood by Automated count 0.03 10*3/uL 0-0.5 [facility] Basophils [#/volume] in Blood by Automated count 0.02 10*3/uL 0-0.2 [facility] Nucleated erythrocytes/100 leukocytes [Ratio] in Blood by Automated count 0 /100{WBCs} 0-0 [facility] ID Date Data Source [id number] 05/14/2020 04:23:58 AM [facility] Name Value Range Interpretation Code Description Data Tere rce(s) Supporting Document(s) Heparin unfractionated [Units/volume] in Platelet poor plasma by Chromogenic method 0.64 U/ml [facility] ID Date Data Source [id number] 05/14/2020 04:23:58 AM [facility] Value Range Interpretation Code Description Data Tere rce(s) Supporting Document(s) Prothrombin time (PT) 14.8 s 12.5-14.9 [facility] INR in Platelet poor plasma by Coagulation assay 1.15 [facility] Routine intensity oral anticoagulation I NR is typically 2.0-3.0. Target INR must be clinically individualized. ID Date Data Source [id number] 05/14/2020 04:40:37 AM [facility] Value Range Interpretation Code Description Data Tere rce(s) Supporting Document(s) Bicarbonate [Moles/volume] in Serum 19 mmol/L 22-29 L [facility] Chloride [Moles/volume] in Serum or Plasma 97 mmol/L 98-107 L [facility] Creatinine [Mass/volume] in Serum or Plasma 4.58 mg/dL 0.70-1.20 H [facility] Glucose [Mass/volume] in Serum or Plasma 244 mg/dL 70-140 H [facility] Potassium [Moles/volume] in Serum or Plasma 4.8 mmol/L 3.4-5.1 [facility] Sodium [Moles/volume] in Serum or Plasma 131 mmol/L 136-145 L [facility] Urea nitrogen [Mass/volume] in Serum or Plasma 75 mg/dL 8-23 H [facility] Anion gap 3 in Serum or Plasma 15 mmol/L 8-15 [facility] Osmolality of Serum or Plasma by calculation 302 mosm/kg 275-300 H [facility] Creatinine/Urea nitrogen [Mass Ratio] in Serum or Plasma 16 [facility] Calcium [Mass/volume] in Serum or Plasma 8.8 mg/dL 8.8-10.2 [facility] Glomerular filtration rate/1.73 sq M pre dicted among non-blacks [Volume Rate/Area] in Serum or Plasma by Creatinine-based formula (MDRD) 11 mL/min/1.73m2 >60 L [facility] Glomerular filtration rate/1.73 sq M pre dicted among blacks [Volume Rate/Area] in Serum or Plasma by Creatinine-based formula (MDRD) 13 mL/min/1.73m2 >60 L [facility] ID Date Data Source [id number] 05/13/2020 11:09:33 PM [facility] Value Range Interpretation Code Description Data Tere rce(s) Supporting Document(s) Glucose [Mass/volume] in Capillary blood by Glucometer 117 mg/dL 70- 140 [facility] ID Date Data Source [id number] 05/13/2020 08:34:27 PM [facility] Value Range Interpretation Code Description Data Tere rce(s) Supporting Document(s) Heparin unfractionated [Units/volume] in Platelet poor plasma by Chromogenic method 0.98 U/ml [facility] ID Date Data Source [id number] 05/13/2020 07:19:41 PM [facility] Name Value Range Interpretation Code Description Data Tere rce(s) Supporting Document(s) Heparin unfractionated [Units/volume] in Platelet poor plasma by Chromogenic method 1.48 U/ml [facility] ConfirmedCalled to and read back byBERONICA PANIAGUA RN [id number] ID Date Data Source [id number] 05/13/2020 07:19:41 PM [facility] Value Range Interpretation Code Description Data Tere rce(s) Supporting Document(s) Prothrombin time (PT) 16.6 s 12.5-14.9 H [facility] INR in Platelet poor plasma by Coagulation assay 1.33 [facility] Routine intensity oral anticoagulation I NR is typically 2.0-3.0. Target INR must be clinically individualized. ID Date Data Source [id number] 05/13/2020 06:46:16 PM [facility] Value Range Interpretation Code Description Data Tere rce(s) Supporting Document(s) Leukocytes [#/volume] in Blood by Automated count 6.0 10*3/uL 4-10 [facility] Erythrocytes [#/volume] in Blood by Automated count 3.28 10*6/uL 4.6- 6.1 L [facility] Hemoglobin [Mass/volume] in Blood 10.4 g/dL 13.5-18 L [facility] Hematocrit [Volume Fraction] of Blood by Automated count 30.9 % 4 1-53 L [facility] Erythrocyte mean corpuscular volume [Entitic volume] by Auto mated count 94.1 fL 80-96 [facility] Erythrocyte mean corpuscular hemoglobin [Entitic mass] by Automated count 31.7 pg 27-33 [facility] Erythrocyte mean corpuscular hemoglobin concentration [Mass/volume] by Automated count 33.7 g/dL 32.0-36.0 [facility] Erythrocyte distribution width [Ratio] by Automated count 15.0 % 11.5-14.5 H [facility] Platelets [#/volume] in Blood by Automated count 138 10*3/uL 150-400 L [facility] Differential cell count method - Blood [facility] Neutrophils/100 leukocytes in Blood by Automated count 78 % [facility] Lymphocytes/100 leukocytes in Blood by Automated count 8 % [facility] Monocytes/100 leukocytes in Blood by Automated count 10 % [facility] Eosinophils/100 leukocytes in Blood by Automated count 3 % [facility] Basophils/100 leukocytes in Blood by Automated count 1 % [facility] Neutrophils [#/volume] in Blood by Automated count 4.73 10*3/uL 1.8-7 .0 [facility] Lymphocytes [#/volume] in Blood by Automated count 0.46 10*3/uL 1.2-4 .0 L [facility] Monocytes [#/volume] in Blood by Automated count 0.61 10*3/uL 0-0.8 [facility] Eosinophils [#/volume] in Blood by Automated count 0.16 10*3/uL 0-0.5 [facility] Basophils [#/volume] in Blood by Automated count 0.04 10*3/uL 0-0.2 [facility] Nucleated erythrocytes/100 leukocytes [Ratio] in Blood by Automated count 0 /100{WBCs} 0-0 [facility] ID Date Data Source [id number] 05/13/2020 06:09:50 PM [facility] Value Range Interpretation Code Description Data Tere rce(s) Supporting Document(s) Hemoglobin A1c/Hemoglobin.total in Blood by HPLC 6.1 % 4.0-6.0 H [facility] (NOTE)<5.7% Average risk of diabetes (ADA)5.7-6.4% Increased risk of diabetes(ADA)>/= 6.5% Diagnostic for diabetes(ADA) Glucose mean value [Mass/volume] in Blood Estimated fr om glycated hemoglobin 128 mg/dL <126 H [facility] ID Date Data Source [id number] 05/13/2020 05:13:44 PM [facility] Value Range Interpretation Code Description Data Tere rce(s) Supporting Document(s) Glucose [Mass/volume] in Capillary blood by Glucometer 89 mg/dL 70- 140 [facility] ID Date Data Source [id number] 05/13/2020 05:14:46 PM [facility] Value Range Interpretation Code Description Data Tere rce(s) Supporting Document(s) Heparin unfractionated [Units/volume] in Platelet poor plasma by Chromogenic method [facility] CALLED GIO PETTY RN 8F 1713 BY [id number] ID Date Data Source [id number] 05/13/2020 05:14:46 PM [facility] Name Value Range Interpretation Code Description Data Tere rce(s) Supporting Document(s) Prothrombin time (PT) 12.5-14.9 [facility] CALLED GIO PETTY RN 8F 1713 BY [id number] INR in Platelet poor plasma by Coagulation assay [facility] CALLED GIO PETTY RN 8F 1713 BY 9418 ID Date Data Source [id number] 05/13/2020 01:20:22 PM [facility] Name Value Range Interpretation Code Description Data Tere rce(s) Supporting Document(s) [facility] TBDXZn2hYgWQBjOi25/AGAbqKRMmm5SqGZkuNEd0OHsjIDPqZ6WoGAL7rL3dKXR3ICmXOlAsXvKuXpOk lbm [file] EVENT TECHNICIAN/UXq1LsfwYUlu/WgY/eBZoPKvz+PYOs78kctho9rr+K5o1k8CMhn/q2V+L46ywnl/I+DvpDC5ILnNk [file] upscale security officer+FCFahLMvNJSoWsmRaeJr8yB2hiQMjkO77UK4nD6DjwJPI1+xE6xp6TjQC+44hx8d3iHyX1tWNTzR [file] BxOwDqZYUxDaS8HaYbKECjMnWnChLkJoYwYR7QWm9DJbI6IDR0bFNxIe2AAhp5YXqAIsNlMY2XBDc= ID Date Data Source [id number] 05/13/2020 12:52:01 PM [facility] Name Value Range Interpretation Code Description Data Tere rce(s) Supporting Document(s) Glucose [Mass/volume] in Capillary blood by Glucometer 162 mg/dL 70- 140 H [facility] ID Date Data Source [id number] 05/13/2020 09:37:36 AM [facility] Name Value Range Interpretation Code Description Data Tere rce(s) Supporting Document(s) Glucose [Mass/volume] in Capillary blood by Glucometer 110 mg/dL 70- 140 [facility] ID Date Data Source [id number] 05/13/2020 06:35:02 AM EST [facility] Name Value Range Interpretation Code Description Data Tere rce(s) Supporting Document(s) Leukocytes [#/volume] in Blood by Automated count 5.2 10*3/uL 4-10 [facility] Erythrocytes [#/volume] in Blood by Automated count 3.46 10*6/uL 4.6- 6.1 L [facility] Hemoglobin [Mass/volume] in Blood 10.8 g/dL 13.5-18 L [facility] Hematocrit [Volume Fraction] of Blood by Automated count 33.1 % 4 1-53 L [facility] Erythrocyte mean corpuscular volume [Entitic volume] by Auto mated count 95.7 fL 80-96 [facility] Erythrocyte mean corpuscular hemoglobin [Entitic mass] by Automated count 31.1 pg 27-33 [facility] Erythrocyte mean corpuscular hemoglobin concentration [Mass/volume] by Automated count 32.5 g/dL 32.0-36.0 [facility] Erythrocyte distribution width [Ratio] by Automated count 15.2 % 11.5-14.5 H [facility] Platelets [#/volume] in Blood by Automated count 144 10*3/uL 150-400 L [facility] Differential cell count method - Blood [facility] Neutrophils/100 leukocytes in Blood by Automated count 65 % [facility] Lymphocytes/100 leukocytes in Blood by Automated count 18 % [facility] Monocytes/100 leukocytes in Blood by Automated count 12 % [facility] Eosinophils/100 leukocytes in Blood by Automated count 4 % [facility] Basophils/100 leukocytes in Blood by Automated count 1 % [facility] Neutrophils [#/volume] in Blood by Automated count 3.35 10*3/uL 1.8-7 .0 [facility] Lymphocytes [#/volume] in Blood by Automated count 0.94 10*3/uL 1.2-4 .0 L [facility] Monocytes [#/volume] in Blood by Automated count 0.59 10*3/uL 0-0.8 [facility] Eosinophils [#/volume] in Blood by Automated count 0.22 10*3/uL 0-0.5 [facility] Basophils [#/volume] in Blood by Automated count 0.04 10*3/uL 0-0.2 [facility] Nucleated erythrocytes/100 leukocytes [Ratio] in Blood by Automated count 0 /100{WBCs} 0-0 [facility] ID Date Data Source [id number] 05/13/2020 06:57:16 AM [facility] Name Value Range Interpretation Code Description Data Tere rce(s) Supporting Document(s) Bicarbonate [Moles/volume] in Serum 18 mmol/L 22-29 L [facility] Chloride [Moles/volume] in Serum or Plasma 100 mmol/L 98-107 [facility] Creatinine [Mass/volume] in Serum or Plasma 4.10 mg/dL 0.70-1.20 H [facility] Glucose [Mass/volume] in Serum or Plasma 111 mg/dL 70-140 [facility] Potassium [Moles/volume] in Serum or Plasma 5.3 mmol/L 3.4-5.1 [facility] Hemolyzed Sodium [Moles/volume] in Serum or Plasma 133 mmol/L 136-145 L [facility] Urea nitrogen [Mass/volume] in Serum or Plasma 63 mg/dL 8-23 H [facility] Anion gap 3 in Serum or Plasma 15 mmol/L 8-15 [facility] Osmolality of Serum or Plasma by calculation 295 mosm/kg 275-300 [facility] Creatinine/Urea nitrogen [Mass Ratio] in Serum or Plasma 15 [facility] Calcium [Mass/volume] in Serum or Plasma 8.9 mg/dL 8.8-10.2 [facility] Glomerular filtration rate/1.73 sq M pre dicted among non-blacks [Volume Rate/Area] in Serum or Plasma by Creatinine-based formula (MDRD) 13 mL/min/1.73m2 >60 L [facility] Glomerular filtration rate/1.73 sq M pre dicted among blacks [Volume Rate/Area] in Serum or Plasma by Creatinine-based formula (MDRD) 15 mL/min/1.73m2 >60 L [facility] ID Date Data Source [id number] 05/13/2020 08:16:47 AM [facility] Value Range Interpretation Code Description Data Tere rce(s) Supporting Document(s) Troponin T.cardiac [Mass/volume] in Serum or Plasma 0.06 ng/mL <0.01 H [facility] ID Date Data Source [id number] 05/12/2020 07:53:49 PM [facility] Value Range Interpretation Code Description Data Tere rce(s) Supporting Document(s) Glucose [Mass/volume] in Capillary blood by Glucometer 81 mg/dL 70- 140 [facility] ID Date Data Source [id number] 05/12/2020 12:59:17 PM [facility] Value Range Interpretation Code Description Data Tere rce(s) Supporting Document(s) Leukocytes [#/volume] in Blood by Automated count 4.4 10*3/uL 4-10 [facility] Erythrocytes [#/volume] in Blood by Automated count 3.23 10*6/uL 4.6- 6.1 L [facility] Hemoglobin [Mass/volume] in Blood 10.1 g/dL 13.5-18 L [facility] Hematocrit [Volume Fraction] of Blood by Automated count 30.5 % 4 1-53 [facility] Erythrocyte mean corpuscular volume [Entitic volume] by Auto mated count 94.5 fL 80-96 [facility] Erythrocyte mean corpuscular hemoglobin [Entitic mass] by Automated count 31.3 pg 27-33 [facility] Erythrocyte mean corpuscular hemoglobin concentration [Mass/volume] by Automated count 33.1 g/dL 32.0-36.0 [facility] Erythrocyte distribution width [Ratio] by Automated count 15.1 % 11.5-14.5 [facility] Platelets [#/volume] in Blood by Automated count 140 10*3/uL 150-400 [facility] ID Date Data Source [id number] 05/12/2020 01:14:53 PM [facility] Value Range Interpretation Code Description Data Tere rce(s) Supporting Document(s) Glucose [Mass/volume] in Capillary blood by Glucometer 141 mg/dL 70- 140 [facility] ID Date Data Source [id number] 05/12/2020 12:11:07 PM [facility] Value Range Interpretation Code Description Data Tere rce(s) Supporting Document(s) History and Physical [facility] BEBJCl9qFgDAXwNx45/LABgpRCEpa9TfCCtyJAx2JSkrAWWiJ1ZiYGS9bT4oXIG7NUaWRkCdGwVtYwQ4 lbm [file] CiAgICAgICAgICAgICAgICAgICAgICAgICAgICAgICAgICAgICAgICAgICAgICAgICAgICAgICAgICAg ICAgICAgICAgICAgICAgICAgICAgICAgICAgICAgIC AgICAgICAgICANCiAgICAgICAgICAgICAgICAgICAgICAgICAgICAgICAgICAgICAgICAgICAgICAgIC AgICAgICAgICAgICAgICAgICAgICAgICAgICAgICAgICAgICAgICAgICAgICAgICAgICANCiAgICAgIC AgICAgICAgICAgICAgICAgICAgICAgICAgICAgICAg ICAgICAgICAgICAgICAgICAgICAgICAgICAgICAgICAgICAgICAgICAgICAgICAgICAgICAgICAgICAg ICANCiAgICAgICAgICAgICAgICAgICAgICAgICAgICAgICAgICAgICAgICAgICAgICAgICAgICAgICAg ICAgICAgICAgICAgICAgICAgICAgICAgICAgICAgIC AgICAgICAgICAgICANCiAgICAgICAgICAgICAgICAgICAgICAgICAgICAgICAgICAgICAgICAgICAgIC AgICAgICAgICAgICAgICAgICAgICAgICAgICAgICAgICAgICAgICAgICAgICAgICAgICAgICANCiAgIC AgICAgICAgICAgICAgICAgICAgICAgICAgICAgICAg ICAgICAgICAgICAgICAgICAgICAgICAgICAgICAgICAgICAgICAgICAgICAgICAgICAgICAgICAgICAg ICAgICANCiAgICAgICAgICAgICAgICAgICAgICAgICAgICAgICAgICAgICAgICAgICAgICAgICAgICAg ICAgICAgICAgICAgICAgICAgICAgICAgICAgICAgIC AgICAgICAgICAgICAgICANCiAgICAgICAgICAgICAgICAgICAgICAgICAgICAgICAgICAgICAgICAgIC AgICAgICAgICAgICAgICAgICAgICAgICAgICAgICAgICAgICAgICAgICAgICAgICAgICAgICAgICANCi AgICAgICAgICAgICAgICAgICAgICAgICAgICAgICAg ICAgICAgICAgICAgICAgICAgICAgICAgICAgICAgICAgICAgICAgICAgICAgICAgICAgICAgICAgICAg ICAgICAgICANCiAgICAgICAgICAgICAgICAgICAgICAgICAgICAgICAgICAgICAgICAgICAgICAgICAg ICAgICAgICAgICAgICAgICAgICAgICAgICAgICAgIC AgICAgICAgICAgICAgICAgICANCjw/iHLcG1ecuSRjjxV2M8sxTj7BMu4DJL8se8AjTZYmIIuiwxRlFo jSPcZuEDJkEfnLQzo1CXpgVF1JdMBjZ2UkZ7DtCThkVJ1HFHZpBGMmlKFyIIIsGUXuTmT3YINlPNniBI 9LaWRzIFsgNSAwIFIgNyAwIFIgOSAwIFIgMTEgMCBS CXJyUJTmNmEcNWIdOFBsMTgiOJSIAE6UVoYeX7SfeJ10OTcUYo1+PWkuatVtMosIZhVdAVIbq0DpQCy1 DS6FJMHjRhast6VcQUMaUNHMYSncGT7LLUZ6IQKeICQaJy1KKCAxP958mrWcSH9OWy8WNnBfOY3nkc2T WQVrWSRuVhcBAyw9GBheXA1IsEFdXXnZNnUiXaqiAy DmISvfSNE8mwRobIVudibmKYJLMwStkQGkZcB7JjSeZcKjXUL5RYGoAV8qLNadOL1BQLC9UStsVBGwZX VsC3uZNzMzCVTqIxAvzIrvFM0GWfDkX5ExpeKggEJ1JJKtKPBOHd3+MOvlwsQzDhmNZfXqRQEcp6FlDU s2OG0BWBCpWCouDN9NLEFygB2hPEsqLG1MEdFvPLHs LETMBlDzJ42lhCUfCLk5X1XsDvKyFJToNmjvUHRlNJfgSpOuIZLcZpPtGMzeTZ6+ID4+VYppAS7QMXxt wdBvRZIqBf6VTWJxLPYeTI6qJTKbQJNhG3N0rOmvBIQZViYaG0kfnftqUK8kAMKoR977uOsvrfUrYIZl WBIsIk2SYARcOEU5QOXtmCSqWbckJXZMRSqlJK3LhL OnAXS3rB5vMVjgUTCbDLBnS3fSVeWirJxsSU18yNcifjWrfLWgJWd+Mr9KKQ6ck0MnTPh3cvWhDOjgGZ RzSYqjQNTsILPaYHJkGKZ3DPI8IUAWCqZwEJBgMXEiCUitVZItUVGcol6NITZeXDE8CKkhLuStCJBlET CsPDlrQHUiZXN9VBawBJHdGPHtKZ3NLaTvUNXlAGVl GRjlJEVeHONlyf6BNENjCOJjSDtwFdRxJCPeVDQoABrrSIMfQVG2QOUiRAYvNKKcSY6JFbVsPAFzMYqo LCBtMTHbMFXquv2TEZCvCRFnLVJ0AWMfUMUyLCEqFUcbYANaYDVxKxB1BIQtLIHvGI6ZQkMbNAMoIVS4 TJCeYJGuCBMgkr1NKCYcKPWyQaWyXYRnARIkPCZoES hlXLGiIRU1IcJ5LYVmNQPnVT3OLzUpEOYcYeWvJyxzEQEiMVEigr5VANEhLRFvNVH8CxMeIWIwSNHbQK roTZIzNTIqLPHwSWOcBUFmTO1MLhHhZHWlSbIcHQybGXZzOTYxxg1SKCMiUCRnAOR4ZwTcXFRqYJWaKK zyWEFoKVR0Pif9AKKmOEQpCT5OYlSwQKZkToG2OXgk HSHnFJGcit8ZKVThFUCoEmo1TtMsSXHdEZIiEBveVORuQYV8ANM9NJEhTLVmKC5AAaZqMVWyIirfYYvj YURzOJIpkk1RQPTxQMKvZUCwOESpHQXpAVFaITohXYHnGYS2LLv9KPUxIGGvGU7HZrXyZYEiRop8LQhg HHIaBAFsig2ZTDQgGEKeJZP5GEFtSVUwQROcJQzrME JxGLQ9KOB5HMBfVKUgAL9LTyIeZVMqWeY9RSfnUKOtGLUvjx6OXHSfREYbYLp2RXQoXRBdDYOpCYlxQY PrKECmIEh0CXPiKYXlHG2IYnXaBEVyGMB9KvByTLLyIJBzpb8EGEYwYBK2Zom6UMRaWSKfHWQiZEisQU HdHSUyKMy8JAKcGURuFR4XBzRaMISrSANiOjenUWTg ZPDkjo1ZPARfNZE7OxK4EBEnVDLvMXLwBZwaERIvXIN3IGM4OTEmDVEvAB5ZSmPtUPZcRMX3ELUoBYVg DLWojx6SEAYsTSJ3OHp6LLSuUQCyBGMtINzfLSEsWFS6NxWhZMWzUFEaME9TPpYtTMPvLQA6GHQcLIVu RXOkbc6RIJWcMWD9Yry8TdRfXQEyJMMkCDhqJHZuPJ F3YOW6ALMfCINeZM6UOqTaBCpyAAXSWcb3TQlpJ6q6VXC7Qz5RN8Kpd2CgLINdFBGILZnlWX4ccvEnVX PpVz0QL1gZIlsnYkXePtL8LLN6HnUmWiYvXYvhOWhoCGJ4VFb0UYllGG8rVKU2P6FwDmJ9JSklBcMxAO NpCDMtM0K5XJn8QYL3IlQ7LrSfAJ7DDk4WIbV9JPF4dSWpMo4DIMerMrlYBdMkQJ7OWKq= ID Date Data Source [id number] 05/12/2020 11:09:57 AM EST [facility] Name Value Range Interpretation Code Description Data Tere rce(s) Supporting Document(s) Color of Urine [facility] Clarity of Urine [facility] Specific gravity of Urine by Refractometry automated 1.013 1.003 -1.030 [facility] pH of Urine by Automated test strip 5.0 5.0-8.0 [facility] Protein [Mass/volume] in Urine by Automated test strip 100 mg/dL Neg ive [facility] Glucose [Mass/volume] in Urine by Automated test strip 50 mg/dL Neg [facility] Ketones [Mass/volume] in Urine by Automated test strip Neg [facility] Bilirubin.total [Presence] in Urine by Automated test strip Negative [facility] Hemoglobin [Presence] in Urine [facility]ated test strip [facility] Leukocyte [facility]ase [Presence] in Urine by Automated test strip Negative [facility] Nitrite [Presence] in Urine by Automated test strip Negati [facility] Leukocytes [#/area] in Urine sediment by Automated count 94 /HPF 0 -5 H [facility] Erythrocytes [#/area] in Urine sediment by Automated count 8570 /HPF 0-3 H [facility] Bacteria [#/area] in Urine sediment by Automated count Non e [facility] Mucus [#/area] in Urine sediment by Microscopy low power field None [facility] Hyaline casts [#/area] in Urine sediment by Microscopy low p ower field 36 /LPF None [facility] Crystals.amorphous [#/area] in Urine sediment by Microscopy high power field None [facility] ID Date Data Source [id number] 05/12/2020 10:59:30 AM EST [facility] Value Range Interpretation Code Description Data Tere rce(s) Supporting Document(s) Leukocytes [#/volume] in Blood by Automated count 3.7 10*3/uL 4-10 L [facility] Erythrocytes [#/volume] in Blood by Automated count 3.12 10*6/uL 4.6- 6.1 L [facility] Hemoglobin [Mass/volume] in Blood 9.9 g/dL 13.5-18 L [facility] Hematocrit [Volume Fraction] of Blood by Automated count 29.3 % 4 1-53 L [facility] Erythrocyte mean corpuscular volume [Entitic volume] by Auto mated count 93.9 fL 80-96 [facility] Erythrocyte mean corpuscular hemoglobin [Entitic mass] by Automated count 31.7 pg 27-33 [facility] Erythrocyte mean corpuscular hemoglobin concentration [Mass/volume] by Automated count 33.8 g/dL 32.0-36.0 [facility] Erythrocyte distribution width [Ratio] by Automated count 15.1 % 11.5-14.5 [facility] Platelets [#/volume] in Blood by Automated count 141 10*3/uL 150-400 L [facility] ID Date Data Source [id number] 05/12/2020 10:32:17 AM [facility] Name Value Range Interpretation Code Description Data Tere rce(s) Supporting Document(s) Thyrotropin [Units/volume] in Serum or Plasma 5.840 u[IU]/mL 0.270-4. 200 [facility] ID Date Data Source [id number] 05/12/2020 08:59:20 AM [facility] Name Value Range Interpretation Code Description Data Tere rce(s) Supporting Document(s) [facility] ITTHLn5gPpYXQxEls6NsKzAsLCNcSC7bqeg0A1E9bKSfS6KxbINjj1ufT5JoL1FhOUGyWJSGZF6AlJGy jb2 [file] /gK/gT/Ak+ntn3f9YkvAbO/hujP1umnj/jorge+oTm3l0a46FxmB+XL/K/6ap13UGr5MWvweCw/cb+tWTIK gnH0Iexm/BX+Qm0Uh1S+aCM1tJ0wVeRGa7OzCzqj+uilNgzESV5Tz9X/SrUwZ/gI/gFf2cwXZb3F/wF/ hCmVkn4Fk3RqKyQFmUw8XNbI1xPr601XqkDxKuWzsf XwW/9ElJ/SrLNV+FfnXKNb+LvoQiaGvmMWtKjunP029rE+4fYALMyQvpl244uEMq/IenLej4Q6R+JdCv JPSrLA/wS7+S1K+Jy395W5XRKZK7wsxv4JkaNEPUfdV1knnAOKmdlgkqX66m+V06Ae7WK+L77Kj3S/wB voKv4E/w/YjanPLaFj2FHO3/3izv5/vu/raF7wY3aa 7780ad+6r6dwO/gS/a73p5EM/ud50TOcGW00Q8wep+go/3u/F+51H5cY07u8/Bx/vdeL+G5zU8r+F5rZ M4WB0Gwi+4Hu/X5YhwO6X/NfTn1K+CX/qV2AR/1bhI/SrKG/rS6h311Rilm/XI7+s+JtanIvsBn3y8ER WzSuq3h/bad6igRQjBs5oea7+xPdih6QSjkx6Wt/x5 r+EAVr95w1fam65e/NI4uznvJIl7A96Rj/8a5jBUSr/er/vSPOUOfn/6iYvgyKHV+OAQCGd4Cf7Ox8J/ wN/gb/AN/IbI0thk3rpZa800fsaeZ/eDZb1qiAHZ1kI3d+V6Eg9hbL7D9lnbG/A0ChqyQmee3K1yelb+ +kPqf63u+3vYOikc7M3DI/kP5TG1OmFjN0W3u1/BH+ UP5LF0Bzc0IC8Gy+hXV/Dj+hfxXs1W2vL2mXG3twlj2vhtix3eVuKCl2BbkVrExmfTh08eaIOAw6E/wB /gK/iK+ot7854mY8mRa+l5ddmSIpE6lytF93o+yv2Fv7kmA00D269xoxD550cb9krKjwdVUzjeM67p/h blF39l/eNed7s+644dKjDN0z8FMuiDd920od9G6/V+ 0Zpw5iSulxh4Y+eoW7+1X4h1afx7Xx13v1J+PyB3+P1StO6eiMvc73m48zbt401X6C8x5xG1sm/iv9Pt X6h03bdwau/QKN/tjP5/13lANKccn5BeVRE0udvNEVm2wg716kj6jPh4+17atK6v0g2iq8s8i/u3+[employer]ing [employer] Rules Lt/PayFD16+pGoLv6fsXoHuSr8ZNZk2p/tzcj7TsG+ dC0aKhviqi0s19wZXP/A5+grrqmQZ22G19u0yhRp+E70lJJfwVVSXOs3M/wN/gb/AN/WDYwoTYtwBo0H cxpvi03cG/2G7jNXAtV/nsrl+l3EK/wrgzA55F/QdtHreP3El73Sk2Kz1p35N6+sb43bW/0EO/ijkh9K oel379kwY9qp+p4MZlgx6WAzNr2LtoF/zw8yl3LIsY 6FdZntXfQr+KZw/9KmQS+lXIyjA/d45RhnZ30oo//HGV/XmE/myb2qexs4KA/UqCX+97nZ1pD0/s7SPs Zj4v6vz3ha/9eQTf+/Mpgz/Bn+PDhh6tem5szV6N/LJvjLBfreCXPWeE/crH+wj71Q6+P68F35/X5+cR 9qtTBr+D38G/b9k9cAj+B83c5XSI+ea3uOZ+3qcM/g J/gb/B3+Ab+FZ816+oxeD3As9gSDAdPhsBxo/1q6cM/sh7bQ8W6Ew7p0Gkoa5R3O4tiWGipMPgLM+Rmq +XgN2xhV2k+lIGbezK4w7Mfkeiz4z9RXL/IGqh14ljZ4b3eNbWw29/rg5q2Nc5ai9CC/AV/Al+2Z/dpe G673M8ClsK1hcF/Wr0sj+A5N5OoC961NbCm6s9eH0R kSj53vLyyz2q2cCS1TgC93S2kmIq4zfuR/Anrl+oZ6GdG/rS5o26WO4QxT+9wG/gN/AF/Pr+Ql6b08SO /gC/9o+X6r5BzP3g7UP/gr/AX+Bv1I/rUjrXpxE5r9z31PKE/jmIkqCY6QM8qgokyJseg4K4bTQ3cWA3 1cD+4GzvwuW1qQ0iF/gL/A3+Bt/Ar/85ysU6jX6XP4 ntrpfmx1t+s2p/e3zcO89zD+V/e/XzsF+cyry14Pm7ekHkponDn9E+dcrgb/DxfsN+ekiD6vq/+wK/gd /AR3/e6M/Ae4ymRfZ82fAEid/BH6dfYquV2+0ufdLdPaoM/gZ/13d/1/9Cy8nesx8NypDY26cLVuv1Ei zPG/pVyMHq/MawWv+O0K/rXTjyx1P6sLPL/gR/gr/A x/ea9vdnc0/y61QbBzoO7jg0br0AcL+dMvgCfvVnvao/t9kwRaRVrJV9Pm9PI9ENEX8X0Ivmb/A3nstQ x15V3na5tS8Ni2Cx1y8iTl/HGzsyVRzGZcy0f3Pl5bqg9voGKrSca5TyvoKUxE9xz46XHxbxwKF4OX8r fAO/9A2N/cFTBr/VfaW+OpwChsF2V6Nqfc/m89vIka p2n4VY9ZxLbFfwJXzKTH8e91bwetEFIz/Ar/1J7iaTrB3kqvXBir8B115SIoK24eucr39nbV16Qqiyv+ V4J50541d1xmsp9Nx3G8rQW539xm8HoM/ofGbyMK9F08cdZp7437u0IynRh2Ly8Iv7X6pS77YnV/1KoV /pwPMOPO+s29VvlT4NY/Ab+A18AV/DG42MgN/FfKVl c4D0l8SAd7bVtm1fQvdk/Z99fj35i1KKX9W3BDRcqT6uIOiy+6rBKatb48OM58Btn3TetwPACSLt5n8P 5Rv4C9CIEJYFvelffOGgC8ts93wkT9a5+TvujOM8aK1aHdtwEcObWOxNn5ThyUa2gYUBNlivFnCj3/4U ehmds7rneh/K93NlG+2lhRJf4veyPuKe7/e8R9P5m1 NGMGK6QonVAvoapaKB0017LllJcTwzcM1rq2FiS4cZ9U6+a8o6acu/BEENA/0ijXfqiuOi+qC/8R000C+p ITa2QE8gtV+1WWN/gbfAO/3oq9g75f+wK/gV/9Hf20Rxt4ia2R5Ms9C/gD/TR77cjkjrM5J71VinuxD/ jcpO43gFa6q40uKv+BCuC4whan9o2pQ/gN/Aa+gC/g d/Chb0C/AuD3DUQyY6S0Uolqf/u10p/dI+RYm9t5iND/GarzbL8Yy/OxM+nMLs6p4S8a+SUurQhaP52C eWlhl0Daar/mA1AX63GzorGtzv/71bzq/MYM+8TDyj10zXf49Om+P2+GTpsoL48zB49d+J93Vg0KQ+D7 70BotN322ot6iRBGqI6sp78oHQee9arcye7sqd79qo 53WYV+FbJqZX+gobmCw5Q0vOsWkcuLr2+u70VZ5eeOAGVohSn7CdycpurSrE/B+xUFf4I/wV/m24izXU GmoFqhs5YiL5+nD2ekq0NgtQ8x3ypN/Aa+gC/gd/A7+PB18l9r7PpL/Bd18avsQ/vz7LU+zt6a1cAEig /9wtdQIge14knwObzC5+e4wG/gN/AFfAG/g9/BH+AP 8BV8Bb/Fg4wK0ciryYNtv9K+8gz4facke2wPy49jcDN2+mP7B5iKDaaINU7kC/AFfH/vOpH2533Sm/Ox M/SrUwZfwVfwJ/gTfD//bFG/98oY3BC/kHS77qt62ktdQA248M2E+tt0+9Gd9P26oXyp8ow9p3qzUqqX F/A7+R22eC33w+q4w0VFhzscl5P7tz/C25i17lIglA iRflFkRxxFIXRn0MquO96hrkyfkC4M2pjpU4G8jq1XmQwC+C133ezUZF2c+vhdQ7qM4HM3Zu4Jv31aoQ Nccama20gtzwALoHb+Jorge+uGfarLDfwG/w35fdqIl6y7/cFgRLBU4W3J/ec95s3XcoSw6l9BrbB21yHo7 y/DoJErigs6NTgN1Uxce9frL580RmJh+JM/qY2BvZs 3omVZeSxmH7yba7ihtt36/VwhDRAfgn9L3pqEnjKY1Yi0Q/UU/vd0/FqUeie5jGa99+pzdB2Aci/uX4V 97fucQ3ibN99tPTz8Nf2ysW+dQU/5qsoK/gK/gR/gr/AX+DX+V89j9CdU5/C8zc27RiL95Rt4monyy/V wopkeV1cDN+8nE1vjmMlSGn+JnlpC2j/Uc+6UAZ/47 07MShtecru1vxrTc6YK/O9qd9nLVccx7Za3Qa4PtuArqfyz/M2SlA9VO+WnAXvV+p83ZJV/SvpG3tjzT 7vN+xXUX+f02Nl2LvVkhW94UI+b74N2G0+r/dt5ljHkk/6txU8q8G81z0suWH19wkYD+Eb8Jp5P/zSr1 daB717lWWwFzp7dcLlzx0k2qxV08zU+iHBocLTv1a3 B+qv/wP7fc2aJAN/gj/BX+Vs2Eu5F4uWc09sET9/sqUX+O85Oy9xqh2g2r/NsmosVqzo8uZVUn74hfG0 b7YU/dq6l9obH2rlsa8/jxT9x+2RIhgnje3MK5Ar+9R3iqbf+7EGd4R77oJ4thC7ChhGifwscx3eqtxa 5Dc/l+KxfNbcdm22R0k8o2132rc5M2Li1J11U5wQ/S r/W/5lK+uEJh0cvlHolzY0z5fiIlfh2ANT65/irNpy+9XI+t1eN10+br+hcB68h1Q5l+5PCeSvyw0m+9 jxefFdsuwnS2eg/mXxTsN+mpg197g0UL/D32vq80HF68kGuzdnul30NEzl6Q7DBwhXZlx10AuKy1lAp9 6O70AXej1CiFr/Tc0qa43r2jvX/cGF/yQ0ba98scq/ gz/AH+Ar+Ar+BH+Ol8NRp415P/QEvnH9xzT+7acsK3/bYanP9z4oF7vhiN/gC/jl77ys/FOW1Xp/2QBf ww3dvfn8G/bG85h4e7pD/bUfusJ+BNCnbd2iP+VPt68L/AZ+A7/6oJrBn9yE9Pe2S+1tD85tr4/Vvsqf wv1Mx4UqjS6iQ+VPt8N+leUFfvmXbdivNuxXG+evNu Cy7KaERGEHt18rdkdo3IZ4Gb+jHjwv/Ac3/Aj83eKl+A9u+A/ycrlnfQ2H07079jaefFG+9zf78SvkCQ XsbExlG7nR9427wR6cpRuU+asWZT9/1eIaP3+V5QH+AN/Pm+V//bzZFfyJ+d23ISKF+Jp3Zn5PN/15T1 upTxl70OuV404ubc82wehN+OUvucN+FTIM+1Y3e207 ba2owaxDT3oc++Tu5U+3+wR/gV/+hrp3C2X2el1nzBku5wh5E/ixDh8YI/k2eR38v//hTRZg3Hq9sNR+ V5j6yNR17RhsodXEE/uDe9T+/b77ru5iL/aLkj54jI9k5Esx+kPRmlQzX65yKpc27MO+jtPd9rHh/Lu2 Q7/Kcge/gz/AH+Ny2r85UJhgYcTBPz+wojiRPqx6J/ aVkvJe1zm8gN/vnrWfsnH+ym0750bjeFecgkw0U/fsqGeg/zV6Nfr45Ty4jx45h3x/2rP2u/es/f09a7 9sz/18l/e0C+LrfibOrRmoD0hwgw2Vx0+hszzot2KjmXs/XnUeaa/6/i5N7Fc2rR+UsBns735V/Npf2L E/mOWN6+v7u3G+fcf+JCfGmiI8N7/Yu84/713nkfau 8/db61786wc8nd8riQ/aOH+1cf5q4/bK9fI0xDvE0w+9P11zqhOmq5i7yv5zw03c6H/s0K+sZoH6wtvk bQK+gI/ntQ7+AH+Ar+Ar+VI6Dy5vZBfuH/mL92Zuil44Io9QXUXpnj6J/ZxGPaEblKlkt53Qdqe/gz/A r+y9g86KZa/s14wXg7KQd4CWj5XLm5PVBa+DX+eR7C r75LnoZ0LP53tjbPlvnqcsxW7yVeeVft54Jb4Uk7Xc0Hc1V/wJ/gJ/gV/yxwsAs6Fp1HQ8Ct2m8C9L6r nUQx3RFpM5Hfz2Z2PDT6CsY0zeMc+FNHp79h8Xju/FXL+68npf7+r9qw7UlAWCF60kl11+XiXvtR9/Lh M/rzKC7+dVgt/9vEpc3/28StTT/fjJflod0h7/Meghann+ [file] B9No1Yfotz4zYfdDBVngFgLo8YZm+56tYrX1UXQkd1z9zDkZm+nnLlxCDynCvHcyuSrqTnVmRduc5/العلي [file] OTcgMDAwMDAgbiAKMDAwMDAwMTQwNiAwMDAwMCBuIA tpBGTtFGG7XwH6HPMpBVYtLZ4gSzWrJQUtWYV2BZfcITErEBVqemKNBNImLFPsNBruIJKzKYJjWRTeMG bhSJCnNFEtNUG1QDGeFMGcXJ8eUbLmNWXwVKHtVXFyQmE1NzFjIkLQlQAkjDmzhyv9UNvuG4v9QNZgCL ddHM7yeoRxAWOyAtdwTl2bgRH7WKOnGuiYKw8Iy2BujkZ7wkLaSxB9TPWjQwNpLD3C ID Date Data Source [id number] 05/12/2020 08:58:49 AM EST [facility] Name Value Range Interpretation Code Description Data Tere rce(s) Supporting Document(s) [facility] ITVORp2qXoRRMvEue0ZrTcZzJJMsGK8kuzs5F3V6mLGkX0UpfKUrj3poG3FdD7OdWZZuULNFFY5UlKXx jb2 [file] 4yvooudqqcVdzT39L3XY7/zMHxlzlMmAkTvwzxyxC/ HRGC4FNbVJvNquKAC51A5LCt7tIYhTuttKW6gwvh/NfrSStPQpKOKpUcbPFdTV62wPNnqM07xbNlgSy8 hs3w6L9yXgsSzvCjOZhGhQ90BYgQ9h3SpqRCfFlVYqkOZeg9PgGY6S65Ny579Us0kP7oSkJ3iE0cz0Fe 8d2J+K6QivtjstQq0XX7Y1rC+Y0xRPtJKgSGBqe8r2 OfhdpkvvQe55B0vJxJ+E9wKXF3Rq7dApNzfVjmFOW5NjeYHs2bbboQdYoqQh4WYcsOHKNaxHH5F08T4Z 6LF3iHhlTA+IDn9K6okhibx2Zb37u9x3ThSYHmGzz2Ij+F5w/DvpnVowxGnCdt4H9a9j3Zc1/kuerIPH 9wgz5wLx2xL8giLil0JI2etm9kNc9fTlIExWBkRPmB 9vZABLUAVXBwC2oVgdYgHpb55d7E0nwknA6QZjRUn4/yuLsqjy+lus5ktE/UCCBU1z8vwR8dEI0cTeM7 pYZFY9HvT82jFCpi2acG37UR2k658tcmcFeQBNc2H+V+zKS9c65e4Q6zshn1M05ynZfvgndlQeqHV8E9 LaUnqx7IctsnTIpVa/pXwue06rf5uH5h/Q9gdX6Nry oRVoWJXzq/W6ahr9pUaMaEhyJMj8P+WaJ3F/UiCHZcpfaieqlqLAiV08BFzUODevsW9X8QkE+A79GtmX ypkypZ88lggJucwbYbdRC8F+Fw5kfH96CWjImp1Xi3Z/F1SmwLXVSY+D1dhemhj9zGhVz6uw8LbSzsoz jkzouKJj7KFOZC+I5OdQmU+K2iiIgjn5du+s/G3Kh0 zUNb3Wl/OubGr/T3Hol157CAn/v+rnuzGQ3lU7QIpn+SaR4lae/7hRlW891a6X9f4/wOD1qwMX0am46q 7hfL+العلي/0Tpc0srkCDeb2BbCc960CTm6cPGfXatuRkUQCSc8lDjK3r6qQws5WzUhjl6fW9bFaCcThap7 po8DfazF9vtF9Xd4PW7t0+J5hh9or2cB+Wiyrluid5 soI5iQo6wZQcgEDxXbBoJo9HjMk/am56yjSX1bFl7oBc0IX5pDBy/qSOkvvgQMAVGG2KJ4pI8qtQ9rKk 57bTkvK0aW2kXp+O7K+L82dcrnoqPjC+vChrAhDPFdnC/8graL+V9iaDQ4ubtdmpkietcudgzberrvOg pM609TuYxfLlw2xMsh2s4Cq+qF0CnuTyfmF5uogdsk vG4daS+I8bJl7AlYNwJOwM0H1hqG1aL1jooW9TBXhe+87K2klpmkUof+YBd+C2NRu8wT+D9ZPuXyRzz+ OLvAaw1WffV7HqwjqlWu1E6cnZrKxW/hLrzvcCO+J3NtVvq7bnLS+F4KIfeqznYdyr1PeSnE6kk5Pcuh dvsuLznPG9SHswe5AaKbozDzH2yGxIqnUIsCM7E4I+ bG/k37Bre60eOI25b63/cBu/N2iO46q4zx1Q/0WU153R+M7214x4hXt5G+XbQz2b+7G+5c4p51Hq+2hG [file] LXxSGdKvc3UYPwaK2PLty8hWkmpCBaG3bZKhSwJ+warm in+YlnnH/cC741U8x0E2bv//MwDzp/gfhoAw4k5 n5nX5cSz+7fybsnnj/qJR3763fwymMnG6Skk5gaz/3 AzRPvp+AjGbi6d/IcgTbC2Ai97UZMp4hfMlN/qkV1EKJd657BKqvlGHN6re/9eQHbOIoibwf2DwGXHqt IxH/mtm9OpNorV0nmr+EwjwXf+67bZ6M/5WGsCILWI7YwoDf0KsxXGDHAd9DeapB1XJDHLW07IxIarGd 8wso40iza4ujHrzVWrokqqZ/EBwPbZGf/zybYkyMDP 2nlyi+jZGj/jDIKLWRJ5l6bgr53xIN/2vmgT5JEjMdDB+L5s8G+mt9hB8SYWTTBJfCWpZsyfIXEdEzUy xI5RyMWghTB4ALqJrTcHJnhxjZqz7BviEzd/wOX4ENrGxZjKblXbfId9+RxD+jWmPJZ9Basfy/BCDjui gQaUQaESEiRDqRTkTxbLFifAQjYkQGkUFkEplEaIOx [file] DeSxs6CgpyOQhoGSOQBv== ID Date Data Source [id number] 05/12/2020 01:14:43 PM [facility] Name Value Range Interpretation Code Description Data Tere rce(s) Supporting Document(s) Glucose [Mass/volume] in Capillary blood by Glucometer 120 mg/dL 70- 140 [facility] ID Date Data Source [id number] 05/12/2020 06:55:51 AM [facility] Name Value Range Interpretation Code Description Data Tere rce(s) Supporting Document(s) Leukocytes [#/volume] in Blood by Automated count 3.7 10*3/uL 4-10 L [facility] Erythrocytes [#/volume] in Blood by Automated count 2.88 10*6/uL 4.6- 6.1 L [facility] Hemoglobin [Mass/volume] in Blood 9.2 g/dL 13.5-18 L [facility] Hematocrit [Volume Fraction] of Blood by Automated count 26.9 % 4 1-53 L [facility] Erythrocyte mean corpuscular volume [Entitic volume] by Auto mated count 93.5 fL 80-96 [facility] Erythrocyte mean corpuscular hemoglobin [Entitic mass] by Automated count 32.0 pg 27-33 [facility] Erythrocyte mean corpuscular hemoglobin concentration [Mass/volume] by Automated count 34.2 g/dL 32.0-36.0 [facility] Erythrocyte distribution width [Ratio] by Automated count 15.1 % 11.5-14.5 H [facility] Platelets [#/volume] in Blood by Automated count 127 10*3/uL 150-400 L [facility] Differential cell count method - Blood [facility] Neutrophils/100 leukocytes in Blood by Automated count 66 % [facility] Lymphocytes/100 leukocytes in Blood by Automated count 17 % [facility] Monocytes/100 leukocytes in Blood by Automated count 11 % [facility] Eosinophils/100 leukocytes in Blood by Automated count 5 % [facility] Basophils/100 leukocytes in Blood by Automated count 1 % [facility] Neutrophils [#/volume] in Blood by Automated count 2.40 10*3/uL 1.8-7 .0 [facility] Lymphocytes [#/volume] in Blood by Automated count 0.64 10*3/uL 1.2-4 .0 L [facility] Monocytes [#/volume] in Blood by Automated count 0.41 10*3/uL 0-0.8 [facility] Eosinophils [#/volume] in Blood by Automated count 0.19 10*3/uL 0-0.5 [facility] Basophils [#/volume] in Blood by Automated count 0.04 10*3/uL 0-0.2 [facility] Nucleated erythrocytes/100 leukocytes [Ratio] in Blood by Automated count 0 /100{WBCs} 0-0 [facility] ID Date Data Source [id number] 05/12/2020 07:09:26 AM [facility] Value Range Interpretation Code Description Data Tere rce(s) Supporting Document(s) Prothrombin time (PT) 15.5 s 12.5-14.9 H [facility] INR in Platelet poor plasma by Coagulation assay 1.22 [facility] Routine intensity oral anticoagulation I NR is typically 2.0-3.0. Target INR must be clinically individualized. ID Date Data Source [id number] 05/12/2020 07:09:26 AM [facility] Value Range Interpretation Code Description Data Tere rce(s) Supporting Document(s) aPTT in Platelet poor plasma by Coagulation assay 41.9 s 24.0-33. 0 H [facility] ID Date Data Source [id number] 05/12/2020 08:27:08 AM [facility] Value Range Interpretation Code Description Data Tere rce(s) Supporting Document(s) Magnesium [Mass/volume] in Serum or Plasma 2.0 mg/dL 1.6-2.4 [facility] ID Date Data Source [id number] 05/12/2020 08:27:08 AM [facility] Value Range Interpretation Code Description Data Tere rce(s) Supporting Document(s) Bicarbonate [Moles/volume] in Serum 23 mmol/L -29 [facility] Chloride [Moles/volume] in Serum or Plasma 101 mmol/L 98-107 [facility] Creatinine [Mass/volume] in Serum or Plasma 3.15 mg/dL 0.70-1.20 H [facility] Glucose [Mass/volume] in Serum or Plasma 126 mg/dL 70-140 [facility] Potassium [Moles/volume] in Serum or Plasma 3.8 mmol/L 3.4-5.1 [facility] Sodium [Moles/volume] in Serum or Plasma 136 mmol/L 136-145 [facility] Urea nitrogen [Mass/volume] in Serum or Plasma 46 mg/dL 8-23 H [facility] Anion gap 3 in Serum or Plasma 12 mmol/L 8-15 [facility] Osmolality of Serum or Plasma by calculation 295 mosm/kg 275-300 [facility] Creatinine/Urea nitrogen [Mass Ratio] in Serum or Plasma 15 [facility] Calcium [Mass/volume] in Serum or Plasma 8.5 mg/dL 8.8-10.2 L [facility] Glomerular filtration rate/1.73 sq M pre dicted among non-blacks [Volume Rate/Area] in Serum or Plasma by Creatinine-based formula (MDRD) 18 mL/min/1.73m2 >60 L [facility] Glomerular filtration rate/1.73 sq M pre dicted among blacks [Volume Rate/Area] in Serum or Plasma by Creatinine-based formula (MDRD) 21 mL/min/1.73m2 >60 L [facility] ID Date Data Source [id number] 05/12/2020 12:25:55 AM [facility] Value Range Interpretation Code Description Data Tere rce(s) Supporting Document(s) Glucose [Mass/volume] in Capillary blood by Glucometer 106 mg/dL 70- 140 [facility] ID Date Data Source [id number] 05/11/2020 11:43:34 PM [facility] Value Range Interpretation Code Description Data Tere rce(s) Supporting Document(s) Troponin T.cardiac [Mass/volume] in Serum or Plasma 0.06 ng/mL <0.01 H [facility] ID Date Data Source [id number] 05/11/2020 11:55:41 PM [facility] Value Range Interpretation Code Description Data Tere rce(s) Supporting Document(s) aPTT in Platelet poor plasma by Coagulation assay 76.3 s 24.0-33. 0 H [facility] ID Date Data Source [id number] 05/11/2020 08:25:55 PM [facility] Value Range Interpretation Code Description Data Tere rce(s) Supporting Document(s) Consultation [facility] KXDNHb5pQhEJDmIt75/PLIgoXHJty4KnEMsjCZm6DLsuUQPoL2SeZPO6xG7fDXQ2PWpTNlQtVpJhNeV5 lbm VzTltTDcVxAYZkSifCUdQbFQbfMbmlmHTaLZ5ImFH3GGAqC83fICNiHCPwZ7SbJXMpZvZ+Te2FTFFfdR VjSU5BPjgP4H9nc8a7Wu/zbwydVPRDw9AB9pU8ve4uxI2UCC0t59QViqhZdCgExGBqYF4d290cxMmm8l C/RCIsvjiY7rlsYGij3HqKDVOs+gJkbSi6huJM7X+b M7ODlct2+SPYwx6pxm120nc5aAntfIcHmnvHW1860RMCAwIisYTRJxPAQ6WEBRGaHEgdVDxVb11wm4F/ yKWiMAsFiIh9OvEyynQwoPNCjGaKa/ONEdAsMnFxJYZEIYLIuFqWEGUyUqfhBPoHDkCNAnUf19EHaF32 PlVnNvMB5JtGDDMUQiZhZFquPAxPvBx08+DFXg1T12 4gMDlUTcp3hqPcCZEadxaYk7Bu5qTolsoSHCg9mxWrd9f6+Lithuanian+jN1Q+miE6dcy8TZLpkvfO9QXxEIvuj u/kX4dGhpo9rBWjzZ8kny9gNdy3F8CieZVlu3x89NDb9Vyiq5s5yElbb4vocbOs71Mx1TUB7cL46qQlZ 9LxZt9UoET3mOXw/KGilqWVBZ0W8Mcyrd2gmfLbnSP Wq+Em8qHTf454dhv5doVjap6BI+IonYpJ++u8NqPipuooejj0+SvesAhBLL4vW7p5Gfcixi/XC8wLTFg CnBmQ2xZP0xD56Ag4OeG8DwJ7MWurW3zZ5njfCvXa9aOZRBfOAhMrFtxXV8c2Cy5gOhhS/KCpGL7Hknw tIU7k8sspHfpFvLy5PNlqURzUiBYZ1rM/kHgRAeFkG To4sYNmM81evhxwupe3Ui564FDaOAiM3H/zGUvT0HdHd7rkCGuLmgpUKkBgahf6u295xSKxAJuFZeXzk IEY4SWQrWhJkcE7J8xKIdwnmouH97FCrV7KhghWvlzmwcYRKk6bu3R5XpW1baBV9gMOen4wHmxHi5+RP 4kGFKWSwL2OfQ7jykEVt9QBfFTlqRwqI1V2RDC0y4a KE3E1XULjiah+ybU8kubVecFZGwMEkWOLievrC7FNd1+VJHnYcav6KKHlG2QotgfKE5SAUtbxTy/TPHc VaAT6+a+hp1Bd38zfOHXRPCrZ5M112IfOfvpvOVxeGy3YbaprLWwn4ZdMoGmJ2xwebJsMV7kgfpSQdIK MYWK7GZdDb7DdIpKoETPpmzdEvBQ6Z566YGgasiczr Oz6hI9aYOpy/MoCmSL//GjxdoSrZwZhhWwMm7Ef3/2CJ8JYGSkwk1mB8sREqrhkt6rd5ev/LUnBtZ9j3 Y8Q2soCVluh6TpQ9lcDF3qz7e+RAbdTPFJMZX9UWAZCmDZlv1Cv5P5JIjfKyEjv6mYRU+ra8Ae7tXZx4 hHf8Z19uDO2Q1NXHdhYNraQPsZG6ZCVCiO9cOZrNh/ kB8D7dhfWj81lpdk3apP+Jorge+mS0RQt0qhqN/fl66v0XAiygovTR7n3T4FihojhYRUKlgsk6jAW39stLF O6Nv6K/i6Hf3xu2XskSQwpGCKGL2TSytK+4+L5C/v6a+Vnss7E1K6GCj8SqsXiGId+TwC8BjyA9NJTEX c0twFmlVAHv94VTEbgAORvZ3eTHHIPS30WpHNEA3Jk 6boeL1G0fl0nXmKtY+cxSWBoGWxTzHNZA6z88TWOoWEg8dbv2Y9PLIU26eJP9RsDB47yJbwDUY3XmLlG 2mH2wYOQNofgd2l1X0udlzodJWF3A8LmwuzeM7c73oww5xzy6gYo5fgJGm2P716SIQ3mCJrCGqFzkprt LYIHQJ+gDISMxOCUpHKARC1VVeDsIU3WU1zY8EICBe [file] AgICAgICAgICAgICAgICAgICAgICAgICAgICAgICAg ZYLxZBWeNPXiHPVjUZMmQKSsDHBmLNKvDSPzSKNaAQZjKBPiKLTjAEGgKMFvMW6KFETmPGKuIKVjIKOo ICAgICAgICAgICAgICAgICAgICAgICAgICAgICAgICAgICAgICAgICAgICAgICAgICAgICAgICAgICAg OMUdEVUlERAdILPvLAXbCKQjMCCtHJNfONPvVW0HGZ AgICAgICAgICAgICAgICAgICAgICAgICAgICAgICAgICAgICAgICAgICAgICAgICAgICAgICAgICAgIC YkUWBaHGPdGGRmPCCyDTXjUXXeRVDvOKTuAKPfEPOzKSJoPFBkUP3YUAYxXHJgWAMuZCWvERJlUJWwNB AgICAgICAgICAgICAgICAgICAgICAgICAgICAgICAg ZTFaVYVbWRNyXBEgOYMsRTMtKGTiYJCrGINgKEJlXOToRIOeQEKrPGPyAPHgFEZjYN3FNKZeXIUvGRWw ICAgICAgICAgICAgICAgICAgICAgICAgICAgICAgICAgICAgICAgICAgICAgICAgICAgICAgICAgICAg ICAgICAgICAgICAgICAgICAgICAgICAgICAgICAgIA 0KICAgICAgICAgICAgICAgICAgICAgICAgICAgICAgICAgICAgICAgICAgICAgICAgICAgICAgICAgIC JpOIEtUQMwNKPuBXMpCVEbQTHfHKWyUSFyNJOvIMUkVJArBLSrBXMtIF2XQWAjIJBlFGSsKLCbUIJmDF AgICAgICAgICAgICAgICAgICAgICAgICAgICAgICAg RSBvPNXcCHPbVVTmUAMmXZKyTJLuDIAvCVMsMLTvSOUkJPXxVVTiKYTqXKDrNSYmRJOoQT5YBKHgTCXc ICAgICAgICAgICAgICAgICAgICAgICAgICAgICAgICAgICAgICAgICAgICAgICAgICAgICAgICAgICAg ICAgICAgICAgICAgICAgICAgICAgICAgICAgICAgIC OlVK7NDICmIGKyVITlZBLbBIGrKCEtAVJmUNYnEOKcTPMuGQXsHDBlJJBmOVHaGXUtRCXyQKNjBYQwRH DeEJYcVWLxDITtFYTgHJRoTDFbIABpSBEpIWDdSBMoDHFeDRZbQYDiTRSpOX2ZIUGoLZCvHVLbCQOzBB AgICAgICAgICAgICAgICAgICAgICAgICAgICAgICAg GCNsDTMfRYEaRGJlVPEoOFNcQOJfIHUmGZYsHKVrCCVeKPEyEEJyLPZtRZXlNVAxYTHnAZQiUZ1BFU26 pZRds0S2UOUeFM1mdim/Ow9OIMxudhAvhXIoRW0QBmLnCT8olm1NEqFhSQ2fnx9SMVwQTbJbW3Y0nZXk KRAvCBDFEnMnB37bCMznIw17LJmxLCFdYpJvXVy6Zy 6PPkYbL2rlGHYdIoS5SMEbTzS5BFZsBzQ9HOLvOjLkOYZhEQEpYZIoNEZULC4ITiMeJ6BcxF74YOVKBz 4+CWsjkuDsKqfEHkTnGCMzv8UtFPk9LF2OCZHuSvhlr4HaOvDsVSYQHRgtLC9XWEG8QDZ1JWOaFt8IEU XrZ453snEhVJ2SMn8ZUoFlJE7bbr8WKbIxNWKsDupD Ooi3GCrkYI4StLKnMKvOh27psXh6njBrqGLHKD0myrRATFE6UO2kfpAmDW0IPYU6JLKzVydcDkNmLZSh Fec0EZBCLPdWJgMkU9Tsc1QwYuL5ABFzRhHeXRmrLATnJnO9FN45xGlmXF0QNSWqDKGeFY85IVSgTCBz Vc3FCw3HIxUlJV4iko9WUpOnYYMuXfoZUgv5JMnoUM 1VjIXbB0IsfXZxx1jYZdYjV9QTCKCkVVAoDx8QUAOdZxPzPXQvVWflQG2iDFVzRHQFcOkqtnJ6VQ9ODW 3itjLnYH1YVwDkKv9gVb6DTqGzL9GlQ1XxPGVvJQLYUAuuZL0LQNzfZX4oNR6Bt8OGiZRlyV6tvp7XIA HcNOOiZkyaby3XNlbsB8V3dJzwTMPpCuXcUJOZPSky YK0HCLXsIJE3CKBxZhNzOFVWVdTzG48sOR6LC1Vsh39bRtZ7WFPlMwIrNIfsLT71fMecpaInaYXzgEwf YR7EPe9+NDwvtjRnWipGKxrlWCXNKeXsRyVWPwUfVLCzAUKoPXDrUuR0BiMfRs9TSGHxZUNhZDRjPnKr VVGzCPAxXYhyQHFcRKMlLDvlQENhXXQtTJ3CQvBhVG OoQyW9HXBmBFFaUJEeqa3MASApWQIpSIT3YvOdHMEcISAfBLpzNCRvALNjOWJlLOZgTECfCT8IMiNaSE LsIPX6BvGrWMOjXGSptn2HVWWiMKDxIzZ6FiTgXIHaRTYhDPgpWSJnFTG5Tjk3OODgGBFrSR2UVuCkBS YlACf9SbUjXCGsMVQfud5SKNUoWUMaVTljULCdKVOr SPBqDFctOBHiNAXsDUhgGIAmAPIsYE3DJwKkHFSiXVLcLOCgTHFzGPEmsi1EJOTsQKQrENIxScIzGOCy GTLiMVpmSSFpAAW1KiWuDOXrEJYzCN2KFtHpSHWmJGOqMIPrRGQbKNSxdt6BBKUnSGVeJnE9HFVwWNDg FXOuUUucIEBcNJW4XVtmXUMeDNMsWI3DUkVxZRKqYW r6TgSeXVAsQYJtkq2ISUDuCBIuZdciFcVtGPKnHHXyEPcvWILxHMG0BHYzPOVxLOShCO4DYxDgUORaUX u2GNXzKTUxKVJywu1ELZBdMSHxIUE1KMAcHFCjGQLzNMpiZUTbAQS2HsRpYSTtEZKsSC0LOtPgPMHzYb R2XNNtGJPtDKOoau8MVFQoGIViMHo2HRGjROCrIZTk GTitHOFhRVGkCHidHJUzYZXqFI0VXyQbMBJlBpF5HCLiKKMaICJhsn3AHPQeTOFrEEY8CKHnJYNtCRBf NEyxQAJuIWYaJHWpTKYjODGbIQ6IFfEnLLZzXqC9LJAdZCNaBCZdxk8LXWVuJVGyXkt9XOEqDAFoVXCc AGwrFKPvJJRpCoSnEJDsLGAcCX6XOdMbZPEsCxA6Sl UgZXZwIVHehy2YQIRaKIMkKCshJcOjUYQkPKRzRVxiYSUtAYI9YHebJVUtHOTrEJ6LDxTbLDexTTJIOn t4CLbfP0t1ARHiYy1KN2Oxa1QnMwBvATKKQAlxQX0iocPwGUIxDf3XH4sLXwd0NBQeUsCdKHPvUFQxEz AlYoAxMYNkJzN3HLE3UoN1Ah1rTONgAZMaHXPeSHP1 DHPeJTEnYKRpJZEmChtqFLM9MUElPdDoPF7SEl6YIuF2GQV3fLEiJz7RJqSaJsNCGtCeQF9BLEk= ID Date Data Source [id number] 05/11/2020 06:11:00 PM EST [facility] Name Value Range Interpretation Code Description Data Tere rce(s) Supporting Document(s) SARS-CoV-2 RNA 2019 nCoV Real-Time RT-PCR: NOT DETECTED [facility] This lab was ordered by [facility] and reported by [facility]. ID Date Data Source [id number] 05/11/2020 08:06:20 PM [facility] Name Value Range Interpretation Code Description Data Tere rce(s) Supporting Document(s) Specimen source [Identifier] of Unspecified specimen [facility] SARS-CoV-2 RNA 2019 nCoV Real-Time RT-PCR: NOT DETECTED [facility] Assay Performed 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[facility] Patient has symptoms related to [facility] When did you start to experience these symptoms [Date and time] [Phen X] [facility] Patient was hospitalized because of this condition [facility] patient was admitted to ICU for condition [facility] Patient resides in a congregate care setting [facility] status [facility] ID Date Data Source [id number] 05/11/2020 08:06:09 PM [facility] Service Cmnt XXX-Imp : NoneRespiratory P CR Panel : PCR ResultsMicroorganism XXX Cult : See Labs Tab for 2019 nCoV RT-PCR resultsHAdV DNA QI MARI+non-probe : Not DetectedHCoV [id number] Nph QI MARI+non-probe : Not DetectedHCoV [id number] Nph QI MARI+non-probe : Not WmzwwhbkNFrKQP00 RNA Nph QI MARI+non-probe : Not EkquhwrcQOsQAT54 RNA Upper resp QI MARI+probe : Not DetectedhMPV RNA Nph QINAA+non-probe : Not DetectedRV+EV RNA Nph QI MARI+non-probe : Not DetectedFLUAV RNA Nph QI MARI+ non-probe : Not DetectedFLUBV RNA Nph QI MARI+non-probe : Not DetectedHPIV1 RNA NphQINAA+non-probe : Not DetectedHPIV2 RNA Nph QINAA+non-probe : Not DetectedHPVI3 RNA Nph MARI+non-probe : Not DetectedHPIV4 RNA Nph Q MARI+non-probe : Not DetectedRSV RNA Nph Q MARI+non-probe : Not DetectedB pert.PT PrmtNph Q MARI+non-probe : Not DetectedC pneum DNA Nph Q MARI+non-probe : Not DetectedM pneum DNA Nph Q MARI+non-probe : Not DetectedB ascnlSH230 DNA Nph MARI+non-probe : Not Detected Name Value Range Interpretation Code Description Data Tere rce(s) Supporting Document(s) ID Date Data Source [id number] 05/11/2020 07:12:30 PM [facility] Value Range Interpretation Code Description Data Tere rce(s) Supporting Document(s) Heparin unfractionated [Units/volume] in Platelet poor plasma by Chromogenic method 1.34 U/ml [facility] ConfirmedBY DILUTIONCalled to and read b anna GONZALEZ RN IN 8F AT 1912 BY [id number] ID Date Data Source [id number] 05/11/2020 06:19:52 PM [facility] Value Range Interpretation Code Description Data Tere rce(s) Supporting Document(s) Glucose [Mass/volume] in Capillary blood by Glucometer 140 mg/dL 70- 140 [facility] ID Date Data Source [id number] 05/11/2020 06:43:14 PM [facility] Value Range Interpretation Code Description Data Tere rce(s) Supporting Document(s) Hepatitis B virus core Ab [Presence] in Serum or Plasma by I mmunoassay Non Reactive [facility] No active or previous infection. Suscept ible to infection. ID Date Data Source [id number] 05/11/2020 06:43:14 PM [facility] Value Range Interpretation Code Description Data Tere rce(s) Supporting Document(s) Hepatitis B virus core IgM Ab [Presence] in Serum or Plasma by Immunoassay Non Reactive [facility] IgM antibodies to HBc were not detected, does not exclude the possibility of exposure to HBV. ID Date Data Source [id number] 05/11/2020 06:43:14 PM [facility] Value Range Interpretation Code Description Data Tere rce(s) Supporting Document(s) Hepatitis B virus surface Ag [Presence] in Serum or Plasma b y Immunoassay Non Reactive [facility] No active or previous infection. Suscept ible to infection. ID Date Data Source [id number] 05/11/2020 07:11:02 PM [facility] Value Range Interpretation Code Description Data Tere rce(s) Supporting Document(s) Hepatitis B virus surface Ab [Units/volume] in Serum o r Plasma by Immunoassay 66.6 m[IU]/mL >11.4 [facility] ReactiveImmunity due to hepatitis B immu nization or natural infection. ID Date Data Source [id number] 05/11/2020 05:01:26 PM [facility] Value Range Interpretation Code Description Data Tere rce(s) Supporting Document(s) aPTT in Platelet poor plasma by Coagulation assay 34.4 s 24.0-33. 0 H [facility] ID Date Data Source [id number] 05/15/2020 12:16:41 PM [facility] Value Range Interpretation Code Description Data Tere rce(s) Supporting Document(s) Coagulation factor X activity [Units/vol ume] in Platelet poor plasma by Chromogenic method 86 U/dL 50-150 [facility] ID Date Data Source [id number] 05/11/2020 04:54:09 PM [facility] Value Range Interpretation Code Description Data Tere rce(s) Supporting Document(s) Leukocytes [#/volume] in Blood by Automated count 5.2 10*3/uL 4-10 [facility] Erythrocytes [#/volume] in Blood by Automated count 3.41 10*6/uL 4.6- 6.1 L [facility] Hemoglobin [Mass/volume] in Blood 10.7 g/dL 13.5-18 L [facility] Hematocrit [Volume Fraction] of Blood by Automated count 32.2 % 4 1-53 L [facility] Erythrocyte mean corpuscular volume [Entitic volume] by Auto mated count 94.5 fL 80-96 [facility] Erythrocyte mean corpuscular hemoglobin [Entitic mass] by Automated count 31.4 pg 27-33 [facility] Erythrocyte mean corpuscular hemoglobin concentration [Mass/volume] by Automated count 33.2 g/dL 32.0-36.0 [facility] E[facility]th[facility] distribution width [Ratio] by Automated count 15.3 % 11.5-14.5 H [facility] Platelets [#/volume] in Blood by Automated count 166 10*3/uL 150-400 [facility] Differential cell count method - Blood [facility] Neutrophils/100 leukocytes in Blood by Automated count 77 % [facility] Lymphocytes/100 leukocytes in Blood by Automated count 11 % [facility] Monocytes/100 leukocytes in Blood by Automated count 7 % [facility] Eosinophils/100 leukocytes in Blood by Automated count 4 % [facility] Basophils/100 leukocytes in Blood by Automated count 1 % [facility] Neutrophils [#/volume] in Blood by Automated count 3.98 10*3/uL 1.8-7 .0 [facility] Lymphocytes [#/volume] in Blood by Automated count 0.59 10*3/uL 1.2-4 .0 L [facility] Monocytes [#/volume] in Blood by Automated count 0.37 10*3/uL 0-0.8 [facility] Eosinophils [#/volume] in Blood by Automated count 0.22 10*3/uL 0-0.5 [facility] Basophils [#/volume] in Blood by Automated count 0.05 10*3/uL 0-0.2 [facility] Nucleated erythrocytes/100 leukocytes [Ratio] in Blood by Automated count 0 /100{WBCs} 0-0 [facility] ID Date Data Source [id number] 05/11/2020 05:10:12 PM [facility] Name Value Range Interpretation Code Description Data Tere rce(s) Supporting Document(s) Bicarbonate [Moles/volume] in Serum 25 mmol/L 22-29 [facility] Chloride [Moles/volume] in Serum or Plasma 102 mmol/L 98-107 [facility] Creatinine [Mass/volume] in Serum or Plasma 4.03 mg/dL 0.70-1.20 H [facility] Glucose [Mass/volume] in Serum or Plasma 148 mg/dL 70-140 H [facility] Potassium [Moles/volume] in Serum or Plasma 3.9 mmol/L 3.4-5.1 [facility] Sodium [Moles/volume] in Serum or Plasma 139 mmol/L 136-145 [facility] Urea nitrogen [Mass/volume] in Serum or Plasma 63 mg/dL 8-23 H [facility] Anion gap 3 in Serum or Plasma 12 mmol/L 8-15 [facility] Osmolality of Serum or Plasma by calculation 309 mosm/kg 275-300 H [facility] Creatinine/Urea nitrogen [Mass Ratio] in Serum or Plasma 16 [facility] Calcium [Mass/volume] in Serum or Plasma 9.2 mg/dL 8.8-10.2 [facility] Glomerular filtration rate/1.73 sq M pre dicted among non-blacks [Volume Rate/Area] in Serum or Plasma by Creatinine-based formula (MDRD) 13 mL/min/1.73m2 >60 L [facility] Glomerular filtration rate/1.73 sq M pre dicted among blacks [Volume Rate/Area] in Serum or Plasma by Creatinine-based formula (MDRD) 15 mL/min/1.73m2 >60 L [facility] ID Date Data Source [id number] 05/11/2020 05:10:12 PM [facility] Name Value Range Interpretation Code Description Data Etre rce(s) Supporting Document(s) Troponin T.cardiac [Mass/volume] in Serum or Plasma 0.06 ng/mL <0.01 H [facility] ID Date Data Source [id number] 05/11/2020 05:10:12 PM [facility] Name Value Range Interpretation Code Description Data Tere rce(s) Supporting Document(s) Magnesium [Mass/volume] in Serum or Plasma 1.9 mg/dL 1.6-2.4 [facility] ID Date Data Source [id number] 05/10/2020 05:04:00 AM EST [facility] Name Value Range Interpretation Code Description Data Tere rce(s) Supporting Document(s) SARS coronavirus 2 RNA [Presence] in Res piratory specimen by MARI with probe detection NEGATIVE [facility] This lab was ordered by [facility] a nd reported by [facility]. ID Date Data Source [id number] 02/16/2020 12:00:00 AM EST [facility] Name Value Range Interpretation Code Description Data Tere rce(s) Supporting Document(s) SARS-CoV2 Rapid Antigen [facility] and reported by [facility]. ID Date Data Source [id number] 01/19/2020 01:30:00 PM EST [facility] ([facility], ) Name Value Range Interpretation Code Description Data Tere rce(s) Supporting Document(s) Glucose [Mass/volume] in Capillary blood by Glucometer 131 mg/dL 83-110 Above high normal [facility] ([facility], ) ID Date Data Source [id number] 01/19/2020 01:30:00 PM EST [facility] ([facility] Name Value Range Interpretation Code Description Data Tere rce(s) Supporting Document(s) Glucose [Mass/volume] in Capillary blood by Glucometer 131 mg/dL 83-110 Above high normal [facility] ([facility] ) Procedure Social History Code Duration Value Status Description Data Source(s ) Smoking 07/26/2020 12:00:00 AM EDT Patient has never smoked co mpleted Patient has never smoked [facility] ([facility]) Alcohol intake 05/11/2020 12:00:00 AM EST Current non-d cami of alcohol (finding) completed Current non-drinker of alcohol (finding) [facility] Tobacco use and exposure 05/11/2020 12:00:00 AM EST Never used co mpleted Never used [facility] Smoking 05/11/2020 12:00:00 AM EST Never smoker completed Never s [facility] Smoking 05/08/2020 12:00:00 AM EST Never Smoked A Pipe complet ed Never Smoked A Pipe [facility] ([facility]) Vital Signs ID Date Data Source UNK Name Value Range Interpretation Code Description Data Source(s) Body mass index (BMI) [Ratio] 21.2 kg/m2 21.2 k g/m2 [facility] ([facility] Oxygen saturation in Arterial blood by Pulse oximetry 98 % 98 % [facility] ([facility] Heart rate 70 /min 70 /min [facility] ([facility] Respiratory rate 16 /min 16 /min [facility] ( [facility] Body height 72 [in_i] 72 [in_i] [facility] ([facility] 6'0" Systolic blood pressure 130 mm[Hg] 130 mm[Hg] M EDENT ([facility] Diastolic blood pressure 80 mm[Hg] 80 mm[Hg] [facility] ([facility] Body weight 156.00 [lb_av] 156.00 [lb_av] MEDEN T ([facility] Body temperature 97.0 [degF] 97.0 [degF] [facility] ([facility] [place] body weight 178 [lb_av] 178 [lb_av] MEDEN T ([facility] Body weight 153.00 [lb_av] 153.00 [lb_av] [facility] T ([facility]) Body height 74 [in_i] 74 [in_i] [facility] ([facility]) 6'2" Body mass index (BMI) [Ratio] 19.6 kg/m2 19.6 k g/m2 [facility] ([facility]) Systolic blood pressure--sitting 134 mm[Hg] 134 mm[Hg] [facility] Ra, medium cuff Diastolic blood pressure--sitting 70 mm[Hg] 70 mm[Hg] [facility] ([facility]) Ra, medium cuff Body surface area Derived from formula 1.96 m2 1.96 m2 [facility] ([facility], ) Systolic blood pressure 184 mm[Hg] 184 mm[Hg] M EDENT ([facility], ) Diastolic blood pressure 80 mm[Hg] 80 mm[Hg] [facility] ([facility], ) Body height 73 [in_i] 73 [in_i] [facility] ([facility]) 6'1" Body weight 161.38 [lb_av] 161.38 [lb_av] MEDEN T ([facility]) Body mass index (BMI) [Ratio] 21.3 kg/m2 21.3 k g/m2 [facility] ([facility]) [place] body weight 184 [lb_av] 184 [lb_av] [facility] T ([facility]) Body weight 73.200 kg 73.200 kg [facility] ([facility]) Systolic blood pressure 158 mm[Hg] 158 mm[Hg] M EDENT ([facility] Diastolic blood pressure 88 mm[Hg] 88 mm[Hg] [facility] ([facility] Body temperature 97.6 [degF] 97.6 [degF] [facility] ([facility] Heart rate 80 /min 80 /min [facility] ([facility] Respiratory rate 14 /min 14 /min [facility] ( [facility] Body height 72 [in_i] 72 [in_i] [facility] ([facility] 6'0" Body weight 163.00 [lb_av] 163.00 [lb_av] MED[facility] T ([facility] [place] body weight 178 [lb_av] 178 [lb_av] [facility] T ([facility] Body mass index (BMI) [Ratio] 22.1 kg/m2 22.1 k g/m2 [facility] ([facility] Oxygen saturation in Arterial blood by Pulse oximetry 92 % 92 % [facility] ([facility] Systolic blood pressure 146 mm[Hg] 146 mm[Hg] M EDENT ([facility] Diastolic blood pressure 74 mm[Hg] 74 mm[Hg] [facility] ([facility] Systolic blood pressure 136 mm[Hg] 136 mm[Hg] M EDENT ([facility] Diastolic blood pressure 80 mm[Hg] 80 mm[Hg] [facility] ([facility] Body temperature 96.5 [degF] 96.5 [degF] [facility] ([facility] Heart rate 86 /min 86 /min [facility] ([facility] Respiratory rate 16 /min 16 /min [facility] ( [facility] Body height 72 [in_i] 72 [in_i] [facility] ([facility] 6'0" Body weight 159.00 [lb_av] 159.00 [lb_av] MEDEN T ([facility] [place] body weight 178 [lb_av] 178 [lb_av] [facility] T ([facility] Body mass index (BMI) [Ratio] 21.6 kg/m2 21.6 k g/m2 [facility] ([facility] Oxygen saturation in Arterial blood by Pulse oximetry 97 % 97 % [facility] ([facility] Body weight 159.00 [lb_av] 159.00 [lb_av] [facility] T ([facility]) Body height 74 [in_i] 74 [in_i] [facility] 6'2" Body mass index (BMI) [Ratio] 20.4 kg/m2 20.4 k g/m2 [facility] ([facility]) Heart rate 75 /min 75 /min [facility] ([facility] Systolic blood pressure--sitting 128 mm[Hg] 128 mm[Hg] [facility] ([facility]) Ra, medium cuff Diastolic blood pressure--sitting 70 mm[Hg] 70 mm[Hg] [facility] ([facility]) Ra, medium cuff Body mass index (BMI) [Ratio] 22.2 kg/m2 22.2 k g/m2 [facility] ([facility], ) Systolic blood pressure 132 mm[Hg] 132 mm[Hg] M EDENT ([facility], ) Diastolic blood pressure 80 mm[Hg] 80 mm[Hg] [facility] ([facility], ) Body height 73 [in_i] 73 [in_i] [facility] ([facility], ) 6'1" Body weight 168.56 [lb_av] 168.56 [lb_av] MEDEN T ([facility]) [place] body weight 184 [lb_av] 184 [lb_av] [facility] T ([facility]) Body weight 76.460 kg 76.460 kg [facility] ([facility]) Body surface area Derived from formula 2.00 m2 2.00 m2 [facility] ([facility]) Body weight 160.00 [lb_av] 160.00 [lb_av] [facility] T ([facility]) Body height 74 [in_i] 74 [in_i] [facility] 6'2" Body mass index (BMI) [Ratio] 20.5 kg/m2 20.5 k g/m2 [facility] ([facility]) Heart rate 67 /min 67 /min [facility] ([facility] Systolic blood pressure--sitting 124 mm[Hg] 124 mm[Hg] [facility] ([facility]) Ra, medium cuff Diastolic blood pressure--sitting 80 mm[Hg] 80 mm[Hg] [facility] ([facility]) Ra, medium cuff Systolic blood pressure 142 mm[Hg] 142 mm[Hg] M EDENT ([facility] Diastolic blood pressure 86 mm[Hg] 86 mm[Hg] [facility] ([facility] Body height 72 [in_i] 72 [in_i] [facility] ([facility] 6'0" Body weight 160.00 [lb_av] 160.00 [lb_av] [facility] T ([facility] Body temperature 97.3 [degF] 97.3 [degF] [facility] ([facility] Heart rate 73 /min 73 /min [facility] ([facility] Respiratory rate 16 /min 16 /min [facility] ( [facility] [place] body weight 178 [lb_av] 178 [lb_av] [facility] T ([facility] Body mass index (BMI) [Ratio] 21.7 kg/m2 21.7 k g/m2 [facility] ([facility] Oxygen saturation in Arterial blood by Pulse oximetry 98 % 98 % [facility] ([facility] Systolic blood pressure 200 mm[Hg] 200 mm[Hg] M [facility] ([facility]) Diastolic blood pressure 100 mm[Hg] 100 mm[Hg] [facility] ([facility]) Body height 73 [in_i] 73 [in_i] [facility] ([facility]) 6'1" Body weight 159.12 [lb_av] 159.12 [lb_av] [facility] T ([facility]) Body mass index (BMI) [Ratio] 21.0 kg/m2 21.0 k g/m2 [facility] ([facility]) [place] body weight 184 [lb_av] 184 [lb_av] [facility] T ([facility]) Body weight 72.179 kg 72.179 kg [facility] ([facility]) Body surface area Derived from formula 1.95 m2 1.95 m2 [facility] ([facility]) Systolic blood pressure 188 mm[Hg] 188 mm[Hg] [facility] ([facility]) Diastolic blood pressure 98 mm[Hg] 98 mm[Hg] [facility] ([facility]) Body height 73 [in_i] 73 [in_i] [facility] ([facility]) 6'1" Body weight 157.38 [lb_av] 157.38 [lb_av] [facility] T ([facility]) Body mass index (BMI) [Ratio] 20.8 kg/m2 20.8 k g/m2 [facility] ([facility]) [place] body weight 184 [lb_av] 184 [lb_av] [facility] T ([facility]) Body weight 71.385 kg 71.385 kg [facility] ([facility]) Body surface area Derived from formula 1.94 m2 1.94 m2 [facility] ([facility]) Systolic blood pressure 182 mm[Hg] 182 mm[Hg] [facility] ([facility]) Diastolic blood pressure 83 mm[Hg] 83 mm[Hg] [facility] ([facility]) Body height 73 [in_i] 73 [in_i] [facility] ([facility]) 6'1" Body weight 159.12 [lb_av] 159.12 [lb_av] [facility] T ([facility]) Body mass index (BMI) [Ratio] 21.0 kg/m2 21.0 k g/m2 [facility] ([facility]) [place] body weight 184 [lb_av] 184 [lb_av] [facility] T ([facility]) Body weight 72.179 kg 72.179 kg [facility] ([facility]) Body surface area Derived from formula 1.95 m2 1.95 m2 [facility] ([facility]) ID Date Data Source [id number] 06/28/2020 12:28:07 PM EDT [facility] Name Value Range Interpretation Code Description Data Source(s) WEIGHT RECORDED 156.31 lb 156.31 lb [facility] WEIGHT RECORDED 163.36 lb 163.36 lb [facility] WEIGHT RECORDED 159.17 lb 159.17 lb [facility] WEIGHT RECORDED 172.62 lb 172.62 lb [facility] WEIGHT RECORDED 174.16 lb 174.16 lb [facility] WEIGHT RECORDED 166.8 lb 166.8 lb [facility] WEIGHT RECORDED 163.14 lb 163.14 lb [facility] WEIGHT RECORDED 163 lb 163 lb [facility] WEIGHT RECORDED 162.04 lb 162.04 lb [facility] WEIGHT RECORDED 167.55 lb 167.55 lb [facility] TRANSFER FROM [facility] Patient Treatment Plan of Care Planned Activity Planned Date Details Description Data Source (s) Tamsulosin hydrochloride 0.4 MG Oral Capsule 05/23/2020 12:00:00 AM [facility] POLYETHYLENE GLYCOL 3350 142 MG/ML Oral Solution 05/22/2020 12:00:0 0 AM [facility] Docusate Sodium 100 MG Oral Capsule 05/22/2020 12:00:00 AM [facility] Lidocaine 5 % External Patch (LIDODERM) 05/22/2020 12:00:00 AM [facility] Levothyroxine Sodium 0.088 MG Oral Tablet 05/22/2020 12:00:00 AM [facility] gabapentin 100 MG Oral Capsule 05/22/2020 12:00:00 AM [facility] Venofer 20 MG/ML Intravenous Solution (iron sucrose) 12:00:00 AM [facility] 0.3 ML Methoxy polyethylene glycol-epoet in beta 0.167 MG/ML Prefilled Syringe [Mircera] 05/22/2020 12:00:00 AM [facility] Calcitriol 0.25926 MG Oral Capsule 05/22/2020 12:00:00 AM [facility] Alprazolam 0.5 MG Oral Tablet 05/22/2020 12:00:00 AM [facility] Tab-A-Jemal/Beta Carotene Oral Tablet 05/22/2020 12:00:00 AM [facility] Allopurinol 100 MG Oral Tablet 05/22/2020 12:00:00 AM [facility] torsemide 100 MG Oral Tablet 05/21/2020 12:00:00 AM [facility] pantoprazole 40 MG Delayed Release Oral Tablet 05/21/2020 12:00:00 AM [facility] Magnesium Oxide 400 MG Oral Tablet 05/21/2020 12:00:00 AM [facility] Levothyroxine Sodium 0.088 MG Oral Tablet 05/21/2020 12:00:00 AM [facility] torsemide 10 MG Oral Tablet 05/21/2020 12:00:00 AM [facility] POLYETHYLENE GLYCOL 3350 142 MG/ML Oral Solution 05/21/2020 12:00:0 0 AM [facility] Lidocaine 5 % External Patch (LIDODERM) 05/21/2020 12:00:00 AM [facility] Diclofenac Sodium 0.01 MG/MG Topical Gel 05/20/2020 12:00:00 AM [facility] Acetaminophen 325 MG Oral Tablet 05/20/2020 12:00:00 AM [facility] Diclofenac Sodium 0.01 MG/MG Topical Gel 05/17/2020 10:48:30 PM [facility] POLYETHYLENE GLYCOL 3350 142 MG/ML Oral Solution 05/16/2020 07:49:4 4 AM [facility] clopidogrel 75 MG Oral Tablet 05/16/2020 12:00:00 AM [facility] dextrose 50 % IV solution 25 mL 05/11/2020 04:14:29 PM [facility] Glucagon 1 MG Injection 05/11/2020 04:14:29 PM [facility] Glucose 0.417 MG/MG Oral Gel 05/11/2020 04:14:29 PM [facility] valsartan 160 MG Oral Tablet 03/13/2020 12:00:00 AM [facility] torsemide 100 MG Oral Tablet 03/03/2020 12:00:00 AM [facility] Tamsulosin hydrochloride 0.4 MG Oral Capsule 10/25/2019 12:00:00 AM [facility] sennosides, FDC 8.6 MG Oral Tablet 10/25/2019 12:00:00 AM [facility] Furosemide 40 MG Oral Tablet 10/25/2019 12:00:00 AM [facility] 168 HR Clonidine 0.41897 MG/HR Transdermal Patch 10/22/2019 12:00:0 0 AM [facility] ONETOUCH DELICA LANCETS [address]G [facility] 02[facility]15/2018 [facility]15/2018 12:00:00 AM [facility] Allopurinol 300 MG Oral Tablet 01/17/2018 12:00:00 AM [facility] BD PEN NEEDLE GURPREET U/F 32G X [address] [facility] 01/06/2018 12:00:00 AM [facility] Mupirocin 0.02 MG/MG Topical Ointment 12/03/2017 12:00:00 AM [facility] 0.3 ML Methoxy polyethylene glycol-epoet in beta 0.167 MG/ML Prefilled Syringe [Mircera] [facility] Venofer 20 MG/ML Intravenous Solution (iron sucrose) [facility] Calcitriol 0.62129 MG Oral Capsule [facility] Alprazolam 0.5 MG Oral Tablet [facility] Levothyroxine Sodium 0.088 MG Oral Tablet [facility] gabapentin 100 MG Oral Capsule [facility] torsemide 100 MG Oral Tablet [facility] Lidocaine 5 % External Patch (LIDODERM) [facility] Allopurinol 100 MG Oral Tablet [facility] Multiple Vitamin (MULTIVITAMIN) tablet [facility] Docusate Sodium 100 MG Oral Capsule [facility] latanoprost 0.05 MG/ML Ophthalmic Solution [facility] POLYETHYLENE GLYCOL 3350 142 MG/ML Oral Solution [facility] Ergocalciferol 63710 UNT Oral Capsule [facility] potassium chloride SA (K-DUR,KLOR-CON) 10 MEQ tablet [facility] lidocaine (LIDODERM) 5 % Ups [facility] Isosorbide Dinitrate 10 MG Oral Tablet [facility] glimepiride 4 MG Oral Tablet [facility] 3 ML Insulin Glargine 100 UNT/ML Pen Injector [facility] Aspirin 81 MG Oral Tablet [facility] 24 HR metoprolol succinate 50 MG Extended Release Oral Tablet [facility]
[2021-01-21 19:33] LABS: BASO % 0.8 % (0.0-1.0); EOS # 0.1 10^3/uL (0.0-0.5); EOS % 2.9 % (0.0-3.0); HEMATOCRIT 31.6 % (42.0-52.0); HEMOGLOBIN 10.5 g/dl (13.5-17.5); LYMPH # 0.5 10^3/uL (1.5-5.0); LYMPH % 11.8 % (24.0-44.0); MEAN CORPUSCULAR HGB CONC 33.2 g/dl (32.0-36.5); MEAN CORPUSCULAR VOLUME 93.2 fl (80.0-96.0); MONO # 0.4 10^3/uL (0.0-0.8); MONO % 9.7 % (2.0-8.0); NEUTROPHILS # 2.9 10^3/uL (1.5-8.5); NEUTROPHILS % 74.5 % (36.0-66.0); PLATELET COUNT, AUTOMATED 144 10^3/uL (150-450); RED BLOOD COUNT 3.39 10^6/uL (4.30-6.10); WHITE BLOOD COUNT 3.8 10^3/uL (4.0-10.0)
[2021-01-21] MEDS ORDERED: NS 1,000 ML IV ONE (19:40)
--- NOTE | 2021-01-21 19:53 | ECGEPIP ---
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
[2021-01-21 19:56] LABS: ALBUMIN 3.5 GM/DL (3.2-5.2); ALT/SGPT 20 U/L (12-78); BILIRUBIN,TOTAL 0.3 MG/DL (0.2-1.0); BLOOD UREA NITROGEN 42 MG/DL (7-18); CALCIUM LEVEL 8.9 MG/DL (8.8-10.2); CARBON DIOXIDE LEVEL 29 MEQ/L (21-32); CHLORIDE LEVEL 102 MEQ/L (98-107); CREATININE FOR GFR 3.32 MG/DL (0.70-1.30); GLOMERULAR FILTRATION RATE 19.3 (>42); GLUCOSE, FASTING 210 MG/DL (70-100); POTASSIUM SERUM 3.7 MEQ/L (3.5-5.1); SODIUM LEVEL 138 MEQ/L (136-145); TOTAL PROTEIN 6.7 GM/DL (6.4-8.2)
--- NOTE | 2021-01-21 20:32 | REPVR ---
PROCEDURE INFORMATION: Exam: CT Head Without Contrast Exam date and time: 01/21/2021 8:03 PM Age: 75 years old Clinical indication: Dizziness TECHNIQUE: Imaging protocol: Computed tomography of the head without contrast. Radiation optimization: All CT scans at this facility use at least one of these dose optimization techniques: automated exposure control; mA and/or kV adjustment per patient size (includes targeted exams where dose is matched to clinical indication); or iterative reconstruction. COMPARISON: MRI-Brain without Contrast 05/10/2020 10:51 AM FINDINGS: Brain: Nonspecific hypodensities of the periventricular and deep subcortical white matter, most likely secondary to chronic small vessel ischemic change. No intracranial hemorrhage or extra-axial fluid collection. No evidence of mass effect or midline shift. [place]-white matter differentiation is normal. Cerebral ventricles: Prominence of the ventricles and sulci, most likely attributed to parenchymal volume loss. Paranasal sinuses: Visualized sinuses are unremarkable. No fluid levels. Mastoid air cells: Unremarkable. Bones/joints: No acute osseus lesion or fracture. Soft tissues: Unremarkable. IMPRESSION: 1. No acute intracranial pathology. 2. Chronic findings, as above. Electronically signed by: Jerrod Seaman On 01/21/2021 20:32:16 PM
[2021-01-21] MEDS ORDERED: ACETAMINOPHEN TAB 650MG DOSE (2X325MG) PO ONE (20:45)
--- NOTE | 2021-01-21 20:53 | REPVR ---
PROCEDURE INFORMATION: Exam: XR Chest Exam date and time: 01/21/2021 7:49 PM Age: 75 years old Clinical indication: Other: A fib; Additional info: Afib TECHNIQUE: Imaging protocol: XR of the chest. Views: 1 view. COMPARISON: CR Chest, 2 view PA, Lat 10/22/2020 12:27 PM FINDINGS: Tubes, catheters and devices: Right internal jugular dialysis catheter is again noted. Lungs: Decreased bilateral perihilar and infrahilar infiltrates since the prior study. Pleural spaces: Decreased right pleural effusion. There is persistent small left pleural effusion which is similar to slightly decreased. Heart/Mediastinum: The heart and mediastinum are unchanged. Bones/joints: Status post sternotomy. IMPRESSION: Decreased congestive failure or fluid overload since 10/22/2020. Residual pleural effusions are noted, left greater than right. Electronically signed by: Tarik Palumbo On 01/21/2021 20:53:05 PM
--- OUTSIDE RECORDS SUMMARY | 2021-01-21 21:22 | CCD ---
Author Author [facility] Organization [facility] Address Unknown Phone Unavailable Care Team Providers Care Crop Production Advisor Name Role Phone TONG CARTAGENA MD Unavailable [...] Unavailable JASMIN H FREDA MD Unavailable Unavailable JASMNI H FREDA MD Unavailable Unavailable JASMIN H FREDA MD Unavailable Unavailable JASMIN H FREDA MD Unavailable Unavailable JASMIN H FREDA MD Unavailable Unavailable JASMIN H FREDA MD Unavailable Unavailable JASMIN H FREDA MD Unavailable Unavailable JASMIN H FREDA MD Unavailable Unavailable JASMIN H FREDA OSBORNE Unavailable Unavailable JASMIN H FREDA MD Unavailable Unavailable JASMNI H FREDA MD Unavailable Unavailable JASMIN H FREDA OSB[place]NE Unavailable Unavailable JASMIN H FREDA [place] Unavailable Unavailable JASMIN H FREDA [place] Unavailable Unavailable JASMIN H FREDA [place] Unavailable Unavailable JASMIN H FREDA MD Unavailable Unavailable JASMIN H FREDA [place] Unavailable Unavailable Berry DANG MD Unavailable Unavailable Berry DANG MD Unavailable Unavailable Berry DANG MD Unavailable Unavailable Berry DANG MD Unavailable Unavailable Berry DANG MD Unavailable Unavailable Berry DANG MD Unavailable Unavailable Berry DANG MD Unavailable Unavailable Berry DNAG MD Unavailable Unavailable Berry DANG MD Unavailable [...] Unavailable Daniel BUCHANAN MD Unavailable Unavailable Daniel UBCHANAN MD Unavailable Unavailable Daniel BUCHANAN MD Unavailable [...] Unavailable NOBLE, L LIZETH MD Unavailable Unavailable NATICK, L LIZETH MD Unavailable Unavailable NATICK, L LIZETH MD Unavailable Unavailable NATICK, L LIZETH MD Unavailable Unavailable NATICK, L LIZETH MD Unavailable Unavailable NATICK, L LIZETH MD Unavailable Unavailable NATICK, L LIZETH MD Unavailable Unavailable NATICK, L LIZETH MD Unavailable Unavailable NATICK, L LIZETH MD Unavailable Unavailable NATICK, L LIZETH MD Unavailable Unavailable NATICK, L LIZETH MD Unavailable Unavailable NATICK, L LIZETH MD Unavailable Unavailable NATICK, L LIZETH MD Unavailable Unavailable NATICK, L LIZETH MD Unavailable Unavailable NATICK, L LIZETH MD Unavailable Unavailable NATICK, L LIZETH MD Unavailable Unavailable NATICK, L LIZETH MD Unavailable Unavailable NATICK, L LIZETH MD Unavailable Unavailable NATICK, L LIZETH MD Unavailable Unavailable NATICK, L LIZETH MD Unavailable Unavailable NATICK, L LIZETH MD Unavailable Unavailable NATICK, L LIZETH MD Unavailable Unavailable NATICK, L LIZETH MD Unavailable Unavailable NATICK, L LIZETH MD Unavailable Unavailable NATICK, L LIZETH MD Unavailable Unavailable NATICK, L LIZETH MD Unavailable Unavailable NATICK, L LIZETH MD Unavailable Unavailable NATICK, L LIZETH MD Unavailable Unavailable NATICK, L LIZETH MD Unavailable Unavailable NATICK, L LIZETH MD Unavailable Unavailable NATICK, L LIZETH MD Unavailable Unavailable NATICK, L LIZETH MD Unavailable Unavailable NATICK, L LIZETH MD Unavailable Unavailable NATICK, L LIZETH MD Unavailable Unavailable NATICK, L LIZETH MD Unavailable Unavailable NATICK, L LIZETH MD Unavailable Unavailable NATICK, L LIZETH MD Unavailable Unavailable NATICK, L LIZETH MD Unavailable Unavailable NATICK, L LIZETH MD Unavailable Unavailable NATICK, L LIZETH MD Unavailable Unavailable NATICK, L LIZETH MD Unavailable Unavailable NATICK, L LIZETH MD Unavailable Unavailable NATICK, L LIZETH MD Unavailable Unavailable NATICK, L LIZETH MD Unavailable Unavailable NATICK, L LIZETH MD Unavailable Unavailable NATICK, L LIZETH MD Unavailable Unavailable NATICK, L LIZETH MD Unavailable Unavailable NATICK, L LIZETH MD Unavailable Unavailable NATICK, L LIZETH MD Unavailable Unavailable REAL, L [...] Unavailable Arnie, D Sebastian PA Unavailable Unavailable Arnei, D Sebastian PA Unavailable Unavailable Arnie, D [...] Berry Hurtado Jr, MD Unavailable Unavailable Berry Hurtaod Jr, MD Unavailable Unavailable Berry Hurtado Jr, [...] RPA Unavailable Unavailable Zakia Traylor MD Unavailable [email or web address] Zakia Traylor MD Unavailable [email or web address] Larson, Jacky Unavailable Unavailable Larson, Jacky Unavailable [...] protected by Article 27-F of the [facility] Public Health law. If you continue you may have access to information: Regarding HIV / AIDS; Provided by facilities licensed or operated by the [facility] Office of Mental Health; or Provided by the [facility] Office for People With Developmental Disabilities. If such information is present, then the following [facility] mandated warning applies: This information has [...] Tetracyclines & Related Tetracyclines & Related PCC ([facility]) Drug allergy Sulfa Antibiotics Sulfa Antibiotics [facility] ([facility]) Drug allergy Penicillins Penicillins [facility] ([facility]) Drug allergy Iodinated Diagnostic Agents Iodinated Diagnostic Agents [facility] ([facility]) Drug allergy Keflex Keflex PCC ([facility]) Drug allergy Minoxidil Minoxidil [facility] ([facility]) Drug allergy hydrALAZINE hydrALAZINE PCC ([facility]) Drug allergy Erythromycin Erythromycin P[facility] ([facility]) Drug allergy Carvedilol Carvedilol PCC ([facility]) Drug allergy Amlodipine Amlodipine PCC ([facility]) To Be Determined To Be Determined PC C ([facility]) Propensity to adverse reactions MINOXIDIL MINOXIDIL [facility] Family History Family Member Name Family [...] EDT - 08/16/2020 03:37:18 PM EDT [facility] ([facility] ) Outpatient Attender: CARLA HUMPHRIES [facility] TONG Triana MD 07/31/2020 02:39:00 PM EDT - 07/31/2020 02:39:00 PM EDT [facility] Outpatient Attender: Sebastian CARRILLO [place] [facility] 01:30:00 PM EDT [facility] Outpatient Attender: MANE CARRILLO Main Office 07/26/2020 0 2:00:00 PM EDT [facility] ([facility] Outpatient Attender: Barb Silveira/Melisa/Darryl/ Daryl 07/15/2020 02:15:00 PM EDT [facility] ([facility]) Outpatient Attender: FREDA CASTELLANOS MD [place] [facility] 02:00:00 PM EDT [facility] ([facility] Outpatient Attender: GORDON BUCHANAN MD 07/03/2020 12:00:00 AM [facility] Outpatient Attender: Jacky Larson 06/17/2020 12:00:00 AM E [facility] Outpatient Attender: Sebastian CARRILLO [place] [facility] 04/2020 03:00:00 PM EDT [facility] ([facility] Outpatient Attender: MANE CARRILLO Main Office 06/12/2020 0 3:00:00 PM EDT [facility] ([facility]) Inpatient Attender: ENRIQUE DANG MD 05/22 03:42:00 PM EST - 06/04/2020 11:51:00 AM EDT PCC ([facility]) Patient discharged. Inpatient Attender: ENRIQUE DANG MD 05/22/2020 10:42:00 AM EST PCC ([facility]) Admission cancelled. Disregard status an d admitted date. Inpatient Attender: EDDI TILLEY Day nder: Dave PandaAttender: JOSEY NOEL MDAttender: GORDON BUCHANAN MDAdmitter: GORDON BUCHANAN MDReferrer: GORDON BUCHANAN MDConsultant: Markel Hurtado JrConsultant: PERLA VELASCO MBBSConsultant: JOSEY NOEL MDConsultant: Sebastian FlowersgaConsultant: LIZETH NOBLE MDConsultant: Kareem Traylor MD [id number] 05/11/2020 12:00:00 AM EST - 05/22/2020 04:13:00 PM EST Non- ST elevation (NSTEMI) myocardial infarction [facility] Non-ST elevation (NSTEMI) myocardial inf arction Patient discharged. Outpatient Attender: CARLA HUMPHRIES DPMConsultant: TONG Triana MD 05/08/2020 01:58:00 PM EST - 05/08/2020 01:58:00 PM EST [facility] Outpatient Attender: CARLA HUMPHRIES D[facility] 05/08/2020 0 1:00:00 PM EST [facility] ([facility]) Outpatient Attender: Barb Silveira/Melisa/Darryl/ Reindl 05/06/2020 02:00:00 PM EST [facility] ([facility] Outpatient Attender: MANE CARRILLO Main Office 05/01/2020 0 1:30:00 PM EST [facility] ([facility]) Outpatient Attender: Sebastian CARRILLO [place] [facility] 10/2020 02:00:00 PM EST [facility] ([facility] Outpatient Attender: Barb Silveira/Melisa/Darryl/ Reindl 02/22/2020 09:30:00 AM EST [facility] ([facility] Outpatient Attender: Pushpa Silveira/Melisa/Darryl/R eindl 02/12/2020 12:00:00 PM EST [facility] ([facility] ) Outpatient Attender: Barb Silveira/Melisa/Darryl/ Reindl 01/01/2020 01:00:00 PM EDT [facility] ([facility] ) Outpatient Attender: TONG CARTAGENA MDConsultant: TONG Triana MD 10/30/2019 08:30:00 PM EDT - 10/30/2019 08:40:00 PM EDT [facility] Immunizations Vaccine Date Status Description Data Source(s) COVID-19 VACCINE Jenn 05/21/2020 12:00:00 AM EST completed [facility] Vaccine Series Complete: YESThis Data wa s Submitted to [facility] Via [employer]. [facility] 05/21/2020 12:00:00 AM EST completed <td I D="[id number]">Jenn SARS-CoV-2 Vaccine</td><td>05/21/2020</td><td></td> [facility] Medications Medication Brand Name Start Date [...] 07/31/2020 12:00:00 A M EDT active [facility] ([facility]) Betamethasone 0.5 MG/ML / Clotrimazole 10 MG/ML Topica l Cream Clotrimazole/Betamethasone Dipropionate 07/31/2020 12:00:00 AM EDT active [facility] ([facility]) 80 mg 07/18/2020 12:00:00 AM EDT [...] 06/14/2020 12:00:00 AM EDT ORAL active [facility] ([facility] valsartan 160 MG Oral Tablet Valsartan 06/14/2020 12:00:00 AM EDT ORAL active [facility] ([facility] torsemide 100 MG Oral Tablet Torsemide 06/11/2020 12:00:00 AM EDT ORAL active [facility] ([facility]) 168 HR Clonidine 0.45624 MG/HR Transdermal Patch Clonidine 06/11/2020 12:00:00 AM EDT active [facility] ([facility] Famotidine 20 MG Oral Tablet Famotidine 06/11/2020 12:00:00 AM EDT ORAL active [facility] ([facility]) Diclofenac Sodium 0.01 MG/MG Topical Gel Diclofenac Sodium 06/11/2020 12:00:00 AM EDT active [facility] ([facility] clopidogrel 75 MG Oral Tablet Clopidogrel Bisulfate 06/11/2020 1 2:00:00 AM EDT ORAL active [facility] ( [facility]) atorvastatin 40 MG Oral Tablet Atorvastatin Calcium 06/11/2020 1 2:00:00 AM EDT ORAL active [facility] ( [facility]) Tamsulosin hydrochloride 0.4 MG Oral Capsule Tamsulosin HCL 06/11/2020 12:00:00 AM EDT ORAL active [facility] Magnesium Oxide 400 MG Oral Tablet Magnesium Oxide 06/11/2020 12:00 :00 AM EDT ORAL active [facility] ([facility]) Acetaminophen 325 MG Oral Tablet Acetaminophen 06/11/2020 12:00:00 AM EDT active [facility] ([facility]) Tamsulosin hydrochloride 0.4 MG Oral Cap blair Tamsulosin HCl 0.4 MG Oral Capsule (FLOMAX) Tamsulosin HCl 0.4 MG Oral Capsule (FLOMAX) 05/23/2020 12:00 :00 AM EST 0.8 mg Oral active Take 2 capsules by mouth daily [facility] Tab-A-Jemal/Beta Carotene Oral Tablet [id number] 05/22/2020 12:00: 00 AM EST 1 {tbl} Oral active Take 1 tablet by mouth d [facility] Allopurinol 100 MG Oral Tablet Allopurinol 100 MG Oral Tablet (ZYLOPRIM) Allopurinol 100 MG Oral Tablet (ZYLOPRIM) 05/22/2020 12:00:00 AM EST 100 mg Oral active Take 1 tablet by shereen th daily with food. [facility] Venofer 20 MG/ML Intravenous Solution (iron sucrose) [id number] 05/22/2020 12:00:00 AM EST 50 mg Intravenous active Inject 2.5 mLs into the vein Every eday at dialysis only. [facility] 0.3 ML Methoxy polyethylene glycol-epoet in beta 0.167 MG/ML Prefilled Syringe [Mircera] Mircera 50 MCG/0.3ML Injection Solution Prefilled Syringe (Methoxy PEG-Epoetin Beta) Mircera 50 MCG/0.3ML Injection Solution Prefilled Syringe (Methoxy PEG-Epoetin Beta) 05/22/2020 12:00:00 AM EST 50 ug Inject ion active Inject [address] as dir ected every 28 (twenty-eight) days at dialysis only. [facility] Levothyroxine Sodium 0.088 MG Oral Table t Levothyroxine Sodium 88 MCG Oral Tablet (SYNTHROID) Levothyroxine Sodium 88 MCG Oral Tablet (SYNTHROID) 05/22/2020 12:00:00 AM EST 88 ug Oral aborted Take 1 tablet by mouth daily [facility] gabapentin 100 MG Oral Capsule Gabapentin 100 MG Oral Capsule (NEURONTIN) Gabapentin 100 MG Oral Capsule (NEURONTIN) 05/22/2020 12:00:00 AM EST 100 mg Oral aborted Take 1 capsule by mo ut Two Times Daily [facility] Lidocaine 5 % External Patch (LIDODERM) 4635-4711-48 05/23/19 12:00:00 AM EST 2 {patch} Transdermal active Place 2 pa tches onto the skin every 24 (twenty-four) hours for 3 daysas directed 12 hours on 12 hours off. [facility] Calcitriol 0.19854 MG Oral Capsule Calcitriol 0.25 MCG Oral Capsule (ROCALTROL) Calcitriol 0.25 MCG Oral Capsule (ROCALTROL) 05/22/2020 12:00:00 AM EST 0.25 ug Oral active Take 1 cap blair by mouth 3 (three) times a week on Wednesday, and Wednesday at dialysis only. [facility] Alprazolam 0.5 MG Oral Tablet ALPRAZolam 0.5 MG Oral T ablet (XANAX) ALPRAZolam 0.5 MG Oral Tablet (XANAX) 05/22/2020 12:00:00 AM EST 0.5 mg Oral active Take 1 tablet by mouth Two t imes daily as needed Max daily of 2 tablets. , Max Daily Dose: 1 mg [facility] POLYETHYLENE GLYCOL 3350 142 MG/ML Oral Solution Polyethylene Glycol 3350 17 GM Oral Packet (MIRALAX) Polyethylene Glycol 3350 17 GM Oral Packet (MIRALAX) 05/22/2020 12:00:00 AM EST 17 g Oral active Take 1 packet by mouth daily as needed for Constipation for up to 10 daysPlease substitute bottle for packets, if packets are unavailable. [facility] Docusate Sodium 100 MG Oral Capsule Docu sate Sodium 100 MG Oral Capsule (COLACE) Docusate Sodium 100 MG Oral Capsule (COLACE) 05/22/2020 12:00:00 AM EST 100 mg Oral active Take 1 cap blair by mouth Two times daily as needed for Constipation [facility] Lactulose 667 MG/ML Oral Solution lactulose (CHRONULAC ) solution 30 mL lactulose (CHRONULAC) solution 30 mL 05/21/2020 09:00:00 PM EST 30 mL Oral active 30 mL, Oral, Three Times Da aaron Standard, First dose on Wed05/21/20 at 2100, For 30 days
Titrate to 1 BM a day
[facility] Medication administered onsite Bisacodyl 5 MG Delayed Release Oral Tablet bisacodyl ( DULCOLAX) EC tablet 5 mg bisacodyl (DULCOLAX) EC tablet 5 mg 05/21/2020 05:22:50 PM EST 5 mg Oral active 5 mg, Oral, Daily MI N, Constipation, Starting Wed05/21/20 at 1722, For 30 days
Do not crush or chew
[facility] Medication administered onsite Tamsulosin hydrochloride 0.4 MG Oral Capsule tamsulosi n (FLOMAX) capsule 0.8 mg tamsulosin (FLOMAX) capsule 0.8 mg 05/21/2020 09:00:00 AM EST 0.8 mg Oral active 0.8 mg, Oral, Daily Standard, First dose (after last modification) on Wed05/21/20 at 0900, For 23 doses
Swallow whole. Do not crush, chew or open.
[facility] Medication administered onsite COVID-19 ad26 (Buzzvil) vaccine intramuscular injection 0.5 mL [id number] 05/21/2020 09:00:00 AM EST 0.5 mL Intramuscular completed 0.5 mL, Intramuscular, Once, 05/21/20 at 0900, For 1 dose [facility] Medication administered onsite Magnesium Oxide 400 MG Oral Tablet Magne sium Oxide 400 (241.3 Mg) MG Oral Tablet (MAG-OX) Magnesium Oxide 400 (241.3 Mg) MG Oral Tablet (MAG-OX) 05/21/2020 12:00:00 AM EST 400 mg Oral active Take 1 t ablet by mouth daily [facility] Levothyroxine Sodium 0.088 MG Oral Table t Levothyroxine Sodium 88 MCG Oral Tablet (SYNTHROID) Levothyroxine Sodium 88 MCG Oral Tablet (SYNTHROID) 05/21/2020 12:00:00 AM EST 88 ug Oral active Take 1 tablet by mouth Daily [facility] Lidocaine 5 % External Patch (LIDODERM) [id number] 05/22/19 12:00:00 AM EST 1 {patch} Transdermal active Place 1 pa tch onto the skin daily 12 hours on 12 hours off [facility] torsemide 10 MG Oral Tablet Torsemide 10 MG Oral Table t (DEMADEX) Torsemide 10 MG Oral Tablet (DEMADEX) 05/21/2020 12:00:00 AM EST 50 mg Oral aborted Take 5 [facility] POLYETHYLENE GLYCOL 3350 142 MG/ML Oral Solution Polyethylene Glycol 3350 17 GM Oral Packet (MIRALAX) Polyethylene Glycol 3350 17 GM Oral Packet (MIRALAX) 05/21/2020 12:00:00 AM EST 17 g Oral aborted Take 1 packet by mouth daily for 3 daysPlease substitute bottle for packets, if packets are unavailable. [facility] torsemide 100 MG Oral Tablet Torsemide 100 MG Oral Tab let (DEMADEX) Torsemide 100 MG Oral Tablet (DEMADEX) 05/21/2020 12:00:00 AM EST 50 mg Oral active Take 0.5 tablets by mouth daily [facility] pantoprazole 40 MG Delayed Release Oral Tablet Pantoprazole Sodium 40 MG Oral Tablet Delayed Release (PROTONIX) Pantoprazole Sodium 40 MG Oral Tablet De layed Release (PROTONIX) 05/21/2020 12:00:00 AM EST 40 mg Oral active Take 1 tablet by mouth daily [facility] gabapentin 100 MG Oral Capsule gabapentin (NEURONTIN) capsule 100 mg gabapentin (NEURONTIN) capsule 100 mg 05/20/2020 10:00:00 PM EST 100 mg Oral active 100 mg, Oral, Nightly, First dose on Wed05/20/20 at 2200, For 2 days [facility] Medication administered onsite lidocaine (XYLOCAINE) 2 % urojet 10 mL [id number] 11:15:00 AM EST 10 mL Urethral completed 10 mL, Urethr al, Once, Wed05/20/20 at 1115, For 1 dose [facility] Medication administered onsite POLYETHYLENE GLYCOL 3350 [...] due to potential increased risk for aspiration.
[facility] Medication administered onsite valsartan 80 MG Oral Tablet valsartan (DIOVAN) tablet 160 mg valsartan (DIOVAN) tablet 160 mg 05/20/2020 09:00:00 AM EST 160 mg Oral acti ve 160 mg, Oral, Daily Standard, First dose (after last modification) on Wed05/20/20 at 0900, For 22 doses [facility] Medication administered onsite lidocaine (XYLOCAINE) 2 % urojet 10 mL [id number] 04:45:00 AM EST 10 mL Urethral completed 10 mL, Urethr al, Once, Wed05/20/20 at 0445, For 1 dose [facility] Medication administered onsite Hydralazine Hydrochloride 20 MG/ML Injec table Solution hydrALAZINE (APRESOLINE) injection 10 mg hydrALAZINE (APRESOLINE) injection 10 mg 05/20/2020 04 :30:00 AM EST 10 mg Intravenous completed 10 mg, Intravenous, Once, Wed05/20/20 at 0430, For 1 dose
Dilute in 25-50 ml normal saline. Administer over 30 minutes.
[facility] Medication administered onsite Diclofenac Sodium 0.01 MG/MG Topical Gel Diclofenac Sodium 1 % External Gel (VOLTAREN) Diclofenac Sodium 1 % External Gel (VOLTAREN) 05/21/19 12:00:00 AM EST 2 g Topical active Apply 2 g topically every 6 (six) hours as needed [facility] Acetaminophen 325 MG Oral Tablet Acetaminophen 325 MG Oral T ablet 05/20/2020 12:00:00 AM EST 650 mg Oral active Take 2 tablets by mouth every 6 (six) hours as needed for up to 10 days [facility] benzonatate 100 MG Oral Capsule benzonatate (TESSALON) capsule 100 mg benzonatate (TESSALON) capsule 100 mg 05/19/2020 11:29:36 PM EST 10 0 mg Oral active 100 mg, Oral, T hree Times Daily-PRN, Cough, Starting 05/19/20 at 2329, For 30 days
Swallow whole
[facility] Medication administered onsite valsartan 80 MG Oral Tablet valsartan (DIOVAN) tablet 80 mg valsartan (DIOVAN) tablet 80 mg 05/19/2020 01:15:00 PM EST 80 mg Oral compl eted 80 mg, Oral, Once, 05/19/20 at 1315, For 1 dose [facility] Medication administered onsite Carboxymethylcellulose Sodium 5 MG/ML Op hthalmic Solution carboxymethylcellulose PF (REFRESH PLUS) 0.5 % ophthalmic solution 1 drop carboxymethylcellulose PF (REFRESH PLUS) 0.5 % ophthalmic solution 1 drop 05/18/2020 07:56:00 PM EST 1 [drp] Both Eyes active 1 drop, Christiano th Eyes, Three Times Daily-PRN, Dry Eyes, Starting 05/18/20 at 1956, For 8 days 13 hours [facility] Medication administered onsite 168 HR Clonidine 0.09452 MG/HR Transderm al Patch cloNIDine (CATAPRES) 0.2 MG/24HR patch 1 patch cloNIDine (CATAPRES) 0.2 MG/24HR patch 1 patch 12:00:00 PM EST 1 {patch} Transdermal active 1 patch, Transdermal, Administer over 7 Days, Weekly, First dose (after last reorder) on [facility] 05/18/20 at 1200, For 1 dose [facility] Medication administered onsite 24 HR metoprolol succinate 50 MG Extende d Release Oral Tablet metoprolol (TOPROL-XL) 24 hr tablet 50 mg metoprolol (TOPROL-XL) 24 hr tablet 50 mg 05/18/2020 11:30:00 AM EST 50 mg Oral active 50 mg, Oral, Daily Standard, First dose on 05/18/20 at 1130, For 30 days
Do not crush or chew
[facility] Medication administered onsite Ceftriaxone 1000 MG Injection cefTRIAXone (ROCEPHIN) i nfusion 1 g (premix) cefTRIAXone (ROCEPHIN) infusion 1 g (premix) 05/18/2020 09:45:00 AM EST 1 g Intravenous completed 1 g, Intraven ous, at 100 mL/hr, Every 24 hours, First dose on [facility] 05/18/20 at 0945, For 3 days
Discouraged Uses: Empiric treatment of post-surgical meningitis (ceftazidime preferred)
[facility] Medication administered onsite Magnesium Oxide 400 MG Oral Tablet Magnesium Oxide (MA G-OX) tablet 400 mg Magnesium Oxide (MAG-OX) tablet 400 mg 05/18/2020 09:00:00 AM EST 4 00 mg Oral active 400 mg, Oral, D aily Standard, First dose on [facility] 05/18/20 at 0900, For 30 days [facility] Medication administered onsite Cyclobenzaprine hydrochloride 10 MG Oral Tablet cyclobenzaprine (FLEXERIL) tablet 5 mg cyclobenzaprine (FLEXERIL) tablet 5 mg 05/17/2020 11:15:00 PM ES T 5 mg Oral completed 5 mg, Oral, Once, Wed05/17/20 at 2315, For 1 dose [facility] Medication administered onsite Diclofenac Sodium 0.01 MG/MG Topical Gel diclofenac sodium (VOLTAREN) 1 % gel 2 g diclofenac sodium (VOLTAREN) 1 % gel 2 g 05/17/2020 10:48:30 PM EST 2 g Topical active 2 g, Topical, Every 6 hours PRN, Pain, Starting Wed05/17/20 at 2248, For 30 days
Apply to lower back as needed
[facility] Medication administered onsite Cyclobenzaprine hydrochloride 10 MG Oral Tablet cyclobenzaprine (FLEXERIL) tablet 5 mg cyclobenzaprine (FLEXERIL) tablet 5 mg 05/17/2020 02:30:00 PM ES T 5 mg Oral completed 5 mg, Oral, Once, Wed05/17/20 at 1430, For 1 dose [facility] Medication administered onsite lidocaine (LIDODERM) 5 % patch 1 patch [id number] 09:00:00 AM EST 1 {patch} Transdermal active 1 patch, T ransdermal, Daily Standard, First dose on Wed05/17/20 at 0900, For 30 days
Apply to lower back for pain 12 hours on - 12 hours off
Time to remove patch: 9:00 PM [facility] Medication administered onsite Hydroxyzine Hydrochloride 25 MG Oral Tablet hydrOXYzin e (ATARAX) tablet 25 mg hydrOXYzine (ATARAX) tablet 25 mg 05/17/2020 06:50:28 AM EST 25 mg Oral active 25 mg, Oral, Every 6 hours PRN, Itching, Starting Wed05/17/20 at 0650, For 30 days [facility] Medication administered onsite Oxycodone Hydrochloride 5 MG Oral Tablet oxyCODONE (ROXICODONE) immediate release tablet 2.5 mg oxyCODONE (ROXICODONE) immediate release tablet 2.5 mg 05/16/2020 10:45:00 PM EST 2.5 mg Oral completed 2.5 mg, Oral, Once, Wed05/16/20 at 2245, For 1 dose
Oxycodone immediate release is limited to 10 mg per dose. Higher doses ( only) require Pain Service consultation and approval.
[facility] Medication administered onsite sennosides, GROUP HOME 8.6 MG Oral Tablet senna tablet 2 tablet sen na tablet 2 tablet 05/16/2020 10:00:00 PM EST 2 {tbl} Oral active 2 tablet, Oral, Nightly, First dose on Wed05/16/20 at 2200, For 30 days [facility] Medication administered onsite 168 HR Clonidine 0.60288 MG/HR Transderm al Patch cloNIDine (CATAPRES) 0.2 MG/24HR patch 1 patch cloNIDine (CATAPRES) 0.2 MG/24HR patch 1 patch 021 08:00:00 PM EST 1 {patch} Transdermal aborted 1 patch, Transdermal, Administer over 7 Days, Weekly, First dose on Leti 05/16/20 at 2000, For 1 dose [facility] Medication administered onsite Acetaminophen 325 MG Oral Tablet acetaminophen (TYLENO L) tablet 650 mg acetaminophen (TYLENOL) tablet 650 mg 05/16/2020 12:30:00 PM EST 65 0 mg Oral completed 650 mg, Oral, O nce, Leti 05/16/20 at 1230, For 1 dose
Maximum daily dose of acetaminophen is 3,000 mg from all sources in 24 hours.
[facility] Medication administered onsite lidocaine (XYLOCAINE) 2 % urojet 10 mL [address]-9 10:15:00 AM EST 10 mL Urethral completed 10 mL, Urethr al, Once, [facility] 05/16/20 at 1015, For 1 dose [facility] Medication administered onsite Docusate Sodium 100 MG Oral Capsule docusate sodium (C OLACE) capsule 100 mg docusate sodium (COLACE) capsule 100 mg 05/16/2020 09:00:00 AM EST 100 mg Oral active 100 mg, Oral, 2 Times Daily, First dose on Leti 05/16/20 at 0900, For 30 days [facility] Medication administered onsite POLYETHYLENE GLYCOL 3350 [...] due to potential increased risk for aspiration.
[facility] Medication administered onsite clopidogrel 75 MG Oral Tablet Clopidogrel Bisulfate 75 MG Oral Tablet (PLAVIX) Clopidogrel Bisulfate 75 MG Oral Tablet (PLAVIX) 05/16/2020 12:00:00 AM EST 75 mg Oral active Take 1 tablet by mouth d [facility] apixaban 5 MG Oral Tablet apixaban (ELIQUIS) tablet 2. 5 mg apixaban (ELIQUIS) tablet 2.5 mg 05/15/2020 10:30:00 AM EST 2.5 mg Oral acti ve 2.5 mg, Oral, 2 Times Daily, First dose on Wed05/15/20 at 1030, For 30 days [facility] Medication administered onsite clopidogrel 75 MG Oral Tablet clopidogrel (PLAVIX) tab let 75 mg clopidogrel (PLAVIX) tablet 75 mg 05/15/2020 09:00:00 AM EST 75 mg Oral active 75 mg, Oral, Daily Standard, First dose on Wed05/15/20 at 0900, For 30 days [facility] Medication administered onsite lidocaine (XYLOCAINE) 2 % urojet 10 mL [id number] 06:30:00 AM EST 10 mL Urethral completed 10 mL, Urethr al, Once, Wed05/15/20 at 0630, For 1 dose [facility] Medication administered onsite Tamsulosin hydrochloride 0.4 MG Oral Capsule tamsulosi n (FLOMAX) capsule 0.4 mg tamsulosin (FLOMAX) capsule 0.4 mg 05/15/2020 02:45:00 AM EST 0.4 mg Oral aborted 0.4 mg, Oral, Daily Standard, First dose (after last modification) on Wed05/15/20 at 0245, For 30 days
Swallow whole. Do not crush, chew or open.
[facility] Medication administered onsite Ceftriaxone 1000 MG Injection cefTRIAXone (ROCEPHIN) i nfusion 1 g (premix) cefTRIAXone (ROCEPHIN) infusion 1 g (premix) 05/15/2020 02:30:00 AM EST 1 g Intravenous completed 1 g, Intraven ous, at 100 mL/hr, Every 24 hours, First dose on Wed05/15/20 at 0230, For 3 days
Discouraged Uses: Empiric treatment of post-surgical meningitis (ceftazidime preferred)
[facility] Medication administered onsite pantoprazole 40 MG Delayed Release Oral Tablet pantoprazole (PROTONIX) EC tablet 40 mg pantoprazole (PROTONIX) EC tablet 40 mg 05/14/2020 08:00:[address] 40 mg Oral active 40 mg, Ora l, Daily Standard, First dose (after last modification) on Wed05/14/20 at 2000, For 30 days
Do not crush or chew
[facility] Medication administered onsite Acetaminophen 325 MG [...] mg from all sources in 24 hours.
[facility] Medication administered onsite 1 ML heparin sodium, porcine 1000 UNT/ML Injection heparin (porcine) 1000 units/mL injection 3,200 Units heparin (porcine) 1000 units/mL injectio n 3,200 Units 05/14/2020 04:12:26 PM EST 3200 U Intracatheter acti ve 3,200 Units, Intracatheter, PRN, Other, Post HD tx, to block HD cath ports, Starting Wed05/14/20 at 1612, For 10 days [facility] Medication administered onsite ondansetron (ZOFRAN) injection 4 mg [id number] 05/14/2020 03:00:0 0 PM EST 4 mg Intravenous completed 4 mg, In travenous, Once, Wed05/14/20 at 1500, For 1 dose [facility] Medication administered onsite clopidogrel 75 MG Oral Tablet clopidogrel (PLAVIX) tab let 75 mg clopidogrel (PLAVIX) tablet 75 mg 05/14/2020 10:30:00 AM EST 75 mg Oral completed 75 mg, Oral, Once, Wed05/14/20 at 1030, For 1 dose [facility] Medication administered onsite ondansetron (ZOFRAN) injection 4 mg [id number] 05/14/2020 10:15:0 0 AM EST 4 mg Intravenous completed 4 mg, In travenous, Once, Wed05/14/20 at 1015, For 1 dose [facility] Medication administered onsite lidocaine (LIDODERM) 5 % patch 1 patch [id number] 09:00:00 AM EST 1 {patch} Transdermal completed 1 patch, Transdermal, Daily Standard, First dose on Wed05/14/20 at 0900, For 3 days
Apply to lower back 12 hours on - 12 hours off
[facility] Medication administered onsite predniSONE (DELTASONE) tablet 50 mg 05/14/2020 09:00:00 AM EST 50 mg Oral completed 50 mg, Oral, Onc e, Wed05/14/20 at 0900, For 1 dose
Take with food.
[facility] Medication administered onsite torsemide 20 MG Oral Tablet torsemide (DEMADEX) tablet 50 mg torsemide (DEMADEX) tablet 50 mg 05/14/2020 09:00:00 AM EST 50 mg Oral acti ve 50 mg, Oral, Daily Standard, First dose on Wed05/14/20 at 0900, For 30 days [facility] Medication administered onsite diphenhydrAMINE (BENADRYL) injection 50 mg [id number] 05/14/2020 09:00:00 AM EST 50 mg Intravenous completed 50 mg, Intravenous, Once, Wed05/14/20 at 0900, For 1 dose [facility] Medication administered onsite predniSONE (DELTASONE) tablet 50 mg 05/14/2020 03:00:00 AM EST 50 mg Oral completed 50 mg, Oral, Onc e, Wed05/14/20 at 0300, For 1 dose
Take with food.
[facility] Medication administered onsite predniSONE (DELTASONE) tablet 50 mg 05/13/2020 09:00:00 PM EST 50 mg Oral completed 50 mg, Oral, Onc e, Wed05/13/20 at 2100, For 1 dose
Take with food.
[facility] Medication administered onsite Cephalexin 500 MG Oral Capsule cephALEXin (KEFLEX) cap blair 500 mg cephALEXin (KEFLEX) capsule 500 mg 05/13/2020 03:00:00 PM EST 500 mg Oral aborted 500 mg, Oral, Every 24 hours, First dos e (after last reorder) on Wed05/13/20 at 1500, For 5 days
(Ensure doses given after hemodialysis on dialysis days)
[facility] Medication administered onsite Lactulose 667 MG/ML Oral Solution lactulose (CHRONULAC ) solution 30 mL lactulose (CHRONULAC) solution 30 mL 05/13/2020 09:45:00 AM EST 30 mL Oral completed 30 mL, Oral, Three Times Daily Standard, First dose on Wed05/13/20 at 0945, For 1 dose [facility] Medication administered onsite Furosemide 40 MG Oral Tablet furosemide (LASIX) tablet 40 mg furosemide (LASIX) tablet 40 mg 05/13/2020 09:45:00 AM EST 40 mg Oral abort ed 40 mg, Oral, Daily Standard, First dose on Wed05/13/20 at 0945, For 30 days [facility] Medication administered onsite clopidogrel 75 MG Oral Tablet clopidogrel (PLAVIX) tab let 300 mg clopidogrel (PLAVIX) tablet 300 mg 05/13/2020 09:15:00 AM EST 300 mg Oral completed 300 mg, Oral, Once, Wed05/13/20 at 0915, For 1 dose [facility] Medication administered onsite valsartan 80 MG Oral Tablet valsartan (DIOVAN) tablet 80 mg valsartan (DIOVAN) tablet 80 mg 05/13/2020 09:00:00 AM EST 80 mg Oral abort ed 80 mg, Oral, Daily Standard, First dose (after last modification) on Wed05/13/20 at 0900, For 29 doses [facility] Medication administered onsite apixaban 5 MG Oral Tablet apixaban (ELIQUIS) tablet 2. 5 mg apixaban (ELIQUIS) tablet 2.5 mg 05/12/2020 11:15:00 AM EST 2.5 mg Oral abor nanda 2.5 mg, Oral, 2 Times Daily, First dose on 05/12/20 at 1115, For 30 days [facility] Medication administered onsite 24 HR metoprolol succinate 25 MG Extende d Release Oral Tablet metoprolol (TOPROL-XL) 24 hr tablet 25 mg metoprolol (TOPROL-XL) 24 hr tablet 25 mg 05/12/2020 09:00:00 AM EST 25 mg Oral aborted 25 mg, Oral, Daily Standard, First dose (after last modification) on 05/12/20 at 0900, For 30 days
Do not crush or chew
[facility] Medication administered onsite Aspirin 81 MG Chewable Tablet aspirin chewable tablet 81 mg aspirin chewable tablet 81 mg 05/12/2020 09:00:00 AM EST 81 mg Oral abort ed 81 mg, Oral, Every morning, First dose on 05/12/20 at 0900, For 4 days [facility] Medication administered onsite atorvastatin 40 MG Oral Tablet atorvastatin (LIPITOR) tablet 40 mg atorvastatin (LIPITOR) tablet 40 mg 05/12/2020 09:00:00 AM EST 40 mg Oral active 40 mg, Oral, Daily Standard, First dose on 05/12/20 at 0900, For 30 days [facility] Medication administered onsite valsartan 160 MG Oral Tablet valsartan (DIOVAN) tablet 160 mg valsartan (DIOVAN) tablet 160 mg 05/12/2020 09:00:00 AM EST 160 mg Oral abo rted 160 mg, Oral, Daily Standard, First dose on 05/12/20 at 0900, For 30 days [facility] Medication administered onsite Hydroxyzine Hydrochloride 25 MG Oral Tablet hydrOXYzin e (ATARAX) tablet 25 mg hydrOXYzine (ATARAX) tablet 25 mg 05/12/2020 05:30:00 AM EST 25 mg Oral completed 25 mg, Oral, Once, 05/12/20 a t 0530, For 1 dose [facility] Medication administered onsite torsemide 20 MG Oral Tablet torsemide (DEMADEX) tablet 50 mg torsemide (DEMADEX) tablet 50 mg 05/11/2020 09:00:00 PM EST 50 mg Oral abor nanda 50 mg, Oral, 2 Times Daily, First dose (after last modification) on 05/11/20 at 2100, For 3 days [facility] Medication administered onsite insulin lispro (HumaLOG) injection LOW DOSE EATING INS ULIN patients 1-8 Units [id number] 05/11/2020 06:00:00 PM EST U Subcutaneous active 1-8 Units, Subcutaneous, Three Times Daily-With Meals, First dose on 05/11/20 at 1800, For 30 days
Nursing MUST open the 'SQ Insulin Dosing Charts' Sidebar Report, or, the Patient Summary or Summary Report within the ED.
[facility] Medication administered onsite 500 ML heparin sodium, porcine 50 UNT/ML Injection heparin in NaCl 0.45 % infusion 50 units/mL heparin in NaCl 0.45 % infusion 50 units/mL 05/11/2020 05:15:00 PM EST 900 U/h Intravenous aborted 900 Units/hr (18 mL/hr), Intravenous, at 18 mL/hr, Continuous, Starting 05/11/20 at 1715, For 30 days
Heparin Individualized Non-Protocol.
[facility] Medication administered onsite magnesium sulfate in dextrose 5 % infusion (premix) 1 g 0409 -6727-23 05/11/2020 05:15:00 PM EST 1 g Intravenous completed 1 g, Intravenous, Administer over 60 Minutes, Once, 05/11/20 at 1715, For 1 dose [facility] Medication administered onsite 168 HR Clonidine 0.10987 MG/HR Transderm al Patch cloNIDine (CATAPRES) 0.2 MG/24HR patch 1 patch cloNIDine (CATAPRES) 0.2 MG/24HR patch 1 patch 04:45:00 PM EST 1 {patch} Transdermal aborted 1 patch, Transdermal, Administer over 7 Days, Weekly, First dose on 05/11/20 at 1645, For 30 days [facility] Medication administered onsite Levothyroxine Sodium 0.088 MG Oral Table t levothyroxine (SYNTHROID) tablet 88 mcg levothyroxine (SYNTHROID) tablet 88 mcg 05/11/2020 04:30:00 PM EST 88 ug Oral active 88 mcg, Oral, Daily at 0600, First dose on 05/11/20 at 1630, For 30 days [facility] Medication administered onsite Glucose 0.417 MG/MG Oral Gel glucose (GLUTOSE) 40 % or al gel 15 g glucose (GLUTOSE) 40 % oral gel 15 g 05/11/2020 04:14:29 PM EST 15 g Oral active 15 g, Oral, PRN, Low blood s ugar, for gluose 55-69 mg/dl and able to take PO, Starting 05/11/20 at 1614, For 30 days [facility] Medication administered onsite dextrose 50 % IV solution 25 mL [id number] 05/11/2020 04:14:[address] 25 mL Intravenous active 25 mL, Intrav enous, PRN, Other, blood glucose <55, Starting 05/11/20 at 1614, For 30 days
Not for midline administration.
[facility] Medication administered onsite Glucagon 1 MG Injection glucagon (human recombinant) ( GLUCAGEN) injection 1 mg glucagon (human recombinant) (GLUCAGEN) injection 1 mg 05/11/2020 04:14:29 PM EST 1 mg Intramuscular active 1 mg, Intramuscular, PRN, for glucose <55 without IV access, Starting 05/11/20 at 1614, For 30 days [facility] Medication administered onsite gabapentin 100 MG Oral Capsule Gabapentin 04/30/2020 12:00:00 AM EST ORAL completed [facility] ([facility] valsartan 160 MG Oral Tablet Valsartan 04/30/2020 12:00:00 AM EST ORAL active [facility] ([facility]) pantoprazole 40 MG Delayed Release Oral Tablet Pantoprazole Sodium 04/30/2020 12:00:00 AM EST ORAL completed [facility] ([facility]) 0.2 mg/24 hr 04/26/2020 12:00:00 AM [...] SUGAR FOUR YANIRA ES A DAY SOLD: 12/03/2020 [facility] 33 gauge 03/22/2020 12:00:00 AM EST misc 400 DIRECTED TO TEST FOUR TIMES A DAY DIRECTED TO TEST FOUR TIMES A DAY SOLD: 12/03/2020 [facility] Onetouch Delica Plus Lancets Extra Fine 33G 03/22/2020 12:00 :00 AM EST active [facility] ([facility] Onetouch Verio 03/22/2020 12:00:00 AM EST act shey [facility] ([facility] montelukast 10 MG Oral Tablet Montelukast Sodium 03/22/2020 12:00:00 AM EST completed [facility] ([facility] montelukast 10 MG Oral [...] Oral active Take 160 mg by mouth [facility] 160 mg 03/13/2020 12:00:00 AM EST tablet 90 TAKE ONE TABLET BY MOUTH EVERY DAY TAKE ONE TABLET BY MOUTH EVERY DAY SOLD: 03/13/2020 [facility] torsemide 100 MG Oral Tablet Torsemide 100 MG Oral Tab let (DEMADEX) Torsemide 100 MG Oral Tablet (DEMADEX) 03/03/2020 12:00:00 AM EST 50 mg Oral aborted Take 50 mg by mouth Two Times Da [facility] 100 mg 02/26/2020 12:00:00 AM EST [...] Take 1 capsule b y mouth daily [facility] sennosides, GROUP HOME 8.6 MG Oral Tablet Senna 8.6 MG Oral T ablet Senna 8.6 MG Oral Tablet 10/25/2019 12:00:00 AM EDT 2 {tbl} Oral aborted Take 2 tablets by mouth nightly as needed [facility] Furosemide 40 MG Oral Tablet Furosemide 40 MG Oral Tab let (LASIX) Furosemide 40 MG Oral Tablet (LASIX) 10/25/2019 12:00:00 AM EDT 60 mg Oral aborted Take 1.5 tablets by mouth Two Times Daily [facility] pantoprazole 40 MG Delayed Release Oral Tablet pantoprazole (PROTONIX) EC tablet 40 mg pantoprazole (PROTONIX) EC tablet 40 mg 10/24/2019 09:00:00 AM E DT 40 mg Oral active 40 mg, Ora l, Daily Standard, First dose on Wed10/24/19 at 0900, For 30 days
Do not crush or chew
[facility] Medication administered onsite Docusate Sodium 100 MG Oral Capsule docusate sodium (C OLACE) capsule 100 mg docusate sodium (COLACE) capsule 100 mg 10/24/2019 09:00:00 AM EDT 100 mg Oral active 100 mg, Oral, 2 Times Daily, First dose on Wed10/24/19 at 0900, For 30 days [facility] Medication administered onsite sennosides, GROUP HOME 8.6 MG Oral Tablet senna tablet 2 tablet sen na tablet 2 tablet 10/24/2019 07:57:59 AM EDT 2 {tbl} Oral active 2 tablet, Oral, Nightly PRN, Constipation, Starting Wed10/24/19 at 0757, For 30 days [facility] Medication administered onsite Simethicone 80 MG Chewable Tablet simethicone (MYLICON ) chewable tablet 80 mg simethicone (MYLICON) chewable tablet 80 mg 10/24/2019 12:46:12 AM EDT 80 mg Oral active 80 mg, Oral, E very 6 hours PRN, Flatulence, Starting Wed10/24/19 at 0046, For 30 days [facility] Medication administered onsite 168 HR Clonidine 0.36278 MG/HR Transderm al Patch cloNIDine 0.2 MG/24HR Transdermal Patch Weekly (CATAPRES) cloNIDine 0.2 MG/24HR Transdermal Patch Weekly (CATAPRES) 10/22/2019 12:00:00 AM EDT 1 {patch} Transdermal active Place 1 patch onto the skin once a week [facility] 0.1 mg/24 hr 09/27/2019 12:00:00 AM EDT patch weekly 4 APPLY 1 PATCH EVERY WEEK REMOVE OLD PATCH BEFORE APPLYING NEW PATCH APPLY 1 PATCH EVERY WEEK REMOVE OLD PATCH BEFORE APPLYING NEW PATCH SOLD: 12/14/2019 [facility] 12 % 07/19/2019 12:00:00 AM EDT cream 140 APPLY TO FEET TWO TIMES A DAY APPLY TO FEET TWO TIMES A DAY SOLD: 12/26/2019 [facility] BLOOD SUGAR DIAGNOSTIC 05/02/2019 12:00:00 AM EST strip 450 USE TO TEST BLOOD GLUCOSE 5 TIMES DAILY USE TO TEST BLOOD GLUCOSE 5 TIMES DAILY SOLD: 11/28/2019 [facility] 33 gauge 05/02/2019 12:00:00 AM EST misc 500 USE TO TEST BLOOD GLUCOSE 5 TIMES DAILY USE TO TEST BLOOD GLUCOSE 5 TIMES DAILY SOLD: 11/28/2019 [facility] KAMARI VERIO test strip [id number] 02/15/2018 12:00:00 AM EST aborted [facility] KAMARI DELSTEVEN LANCETS 33G [facility] [place] [id number] 02/15/2018 12:00:[address] aborted [facility] Allopurinol 300 MG Oral Tablet allopurinol (ZYLOPRIM) 300 MG tablet allopurinol (ZYLOPRIM) 300 MG tablet 01/17/2018 12:00:00 AM EST 300 mg Oral aborted Take 300 mg by mouth daily [facility] BD PEN NEEDLE GURPREET U/F 32G X 4 MM [facility] [place] [id number] 01/06/2018 12:0 0:00 AM EDT aborted FOUR TIMES A DAY [facility] Mupirocin 0.02 MG/MG Topical Ointment mupirocin (BACTR OBAN) 2 % ointment mupirocin (BACTROBAN) 2 % ointment 12/03/2017 12:00:00 AM EDT aborted Apply to affected area twice a day. [facility] 3 ML Insulin Glargine 100 UNT/ML Pen Inj rebeca insulin glargine (BASAGLAR KWIKPEN) 100 UNIT/ML pen insulin glargine (BASAGLAR KWIKPEN) 100 UNIT/ML pen 35 U Subcutaneous aborted Inject 35 U nits into the skin daily [facility] Venofer 20 MG/ML Intravenous Solution (iron sucrose) 8723-5009-59 50 mg Intravenous aborted Inject 50 mg into the vein Every at dialysis only. [facility] Calcitriol 0.79202 MG Oral Capsule Calcitriol 0.25 MCG Oral Capsule (ROCALTROL) Calcitriol 0.25 MCG Oral Capsule (ROCALTROL) 0.25 ug Oral aborted Take 0.25 mcg by mouth 3 (three) times a week on Wednesday, and Wednesday at dialysis only. [facility] gabapentin 100 MG Oral Capsule Gabapentin 100 MG Oral Capsule (NEURONTIN) Gabapentin 100 MG Oral Capsule (NEURONTIN) 100 mg Oral aborted Take 100 mg by mouth Two Times Daily [facility] Alprazolam 0.5 MG Oral Tablet ALPRAZolam 0.5 MG Oral T ablet (XANAX) ALPRAZolam 0.5 MG Oral Tablet (XANAX) 0.5 mg Oral aborted Take 0.5 mg by mouth Two times daily as needed Max daily of 2 tablets. [facility] Levothyroxine Sodium 0.088 MG Oral Table t Levothyroxine Sodium 88 MCG Oral Tablet (SYNTHROID) Levothyroxine Sodium 88 MCG Oral Tablet (SYNTHROID) 88 ug Oral aborted Take 88 mcg by mouth gina ly [facility] 0.3 ML Methoxy polyethylene glycol-epoet in beta 0.167 MG/ML Prefilled Syringe [Mircera] Mircera 50 MCG/0.3ML Injection Solution Prefilled Syringe (Methoxy PEG-Epoetin Beta) Mircera 50 MCG/0.3ML Injection Solution Prefilled Syringe (Methoxy PEG-Epoetin Beta) 50 ug Injection aborted Inject 50 mcg as directed every 28 (twenty-eight) days at dialysis only. [facility] torsemide 100 MG Oral Tablet Torsemide 100 MG Oral Tab let (DEMADEX) Torsemide 100 MG Oral Tablet (DEMADEX) 50 mg Oral aborted Take 50 mg by mouth Two Times Daily [facility] Lidocaine 5 % External Patch (LIDODERM) 6957-8895-90 2 {patch} Transdermal aborted Place 2 patches onto the skin as directed 12 hours on 12 hours off. [facility] Allopurinol 100 MG Oral Tablet Allopurinol 100 MG Oral Tablet (ZYLOPRIM) Allopurinol 100 MG Oral Tablet (ZYLOPRIM) 100 mg Oral aborted Take 100 mg by mouth daily with food. [facility] latanoprost 0.05 MG/ML Ophthalmic Soluti on latanoprost (XALATAN) 0.005 % ophthalmic solution latanoprost (XALATAN) 0.005 % ophthalmic solution 1 [drp] Both Eyes aborted Place 1 drop into both eyes nightly [facility] Multiple Vitamin (MULTIVITAMIN) tablet 4179-3889-76 1 {t bl} Oral aborted Take 1 tablet by mouth daily [facility] Docusate Sodium 100 MG Oral Capsule docusate sodium (C OLACE) 100 MG capsule docusate sodium (COLACE) 100 MG capsule 100 mg Oral aborted Take 100 mg by mouth Two Times Daily [facility] Ergocalciferol 19131 UNT Oral Capsule vi tamin D (ERGOCALCIFEROL) 57404 units capsule vitamin D (ERGOCALCIFEROL) 56326 units capsule 67866 U O ral aborted Take 50,000 Units by mouth once a week [facility] POLYETHYLENE GLYCOL 3350 142 MG/ML Oral Solution polyethylene glycol (MIRALAX) powder polyethylene glycol (MIRALAX) powder 17 g Oral aborted Take 17 g by mouth in 4oz to 8oz of liquid daily as needed. [facility] lidocaine (LIDODERM) 5 % 7026-6119-07 aborted Apply to affected area(s) on skin for 12 hours on and 12 hours off. [facility] potassium chloride SA (K-DUR,KLOR-CON) 10 MEQ tablet 90760-395-00 10 meq Oral aborted Take 10 mEq by mouth Two Times Daily [facility] Isosorbide Dinitrate 10 MG Oral Tablet i sosorbide dinitrate (ISORDIL) 10 MG tablet isosorbide dinitrate (ISORDIL) 10 MG tablet 10 mg Oral aborted Take 10 mg by mouth Two Times Daily [facility] glimepiride 4 MG Oral Tablet glimepiride (AMARYL) 4 MG tablet glimepiride (AMARYL) 4 MG tablet 4 mg Oral aborted Take 4 mg by mouth Two Times Daily [facility] Aspirin 81 MG Oral Tablet aspirin 81 MG tablet aspirin 81 MG tablet 81 mg Oral aborted Take 81 mg by mouth every morning [facility] 24 HR metoprolol succinate 50 MG Extende d Release Oral Tablet metoprolol (TOPROL-XL) 50 MG 24 hr tablet metoprolol (TOPROL-XL) 50 MG 24 hr tablet 50 mg Oral aborted Take 50 mg by mouth [facility] Insurance Providers Payer name Policy type / Coverage type Policy ID Covered green party ID Covered green party's relationship to flores Policy Flores Plan Information AMER PROG TODAYS OPTIONS G [id number] Self [id number] WELL[employer] MEDICARE HMO G [id number] Self [id number] Medicare [place] Medigap Part B [id number] Self Today's Options PFFS Commercial [id number] Self [id number] Today's Options PFFS Commercial [id number]. [id number] Self [id number] Today's Options PFFS Commercial [id number] [id number]. [id number] Self [id number] Today's Options PFFS Commercial [id number] Self [id number] [employer] PFFS Commercial [id number] 2..[id number]. [id number] Self [id number] [employer] PFFS Commercial [id number] 2..1.162984.3. [id number] Self [id number] [employer] P[employer]S Commercial [id number] 2..[id number]. [id number] Self [id number] [employer] PFFS Commercial [id number] 2..[id number]. [id number] Self [id number] Today[employer] Options P[employer]S Commercial [id number] 2..[id number]. [id number] Self [id number] [employer] P[employer] Commercial [id number] 2..1.419619.3. [id number] Self [id number] [employer] P[employer]S Commercial [id number] 2..1.060697.3. [id number] Self [id number] [employer] PFFS Commercial [id number] Self [employer] PFFS Commercial [id number] 2..[id number]. [id number] Self [id number] [employer] P[employer] Commercial [id number] Self [id number] [employer] P[employer] Commercial [id number] 2..1.981815.3. [id number] Self [id number] [employer] PFFS Commercial [id number] [id number]. [id number] Self [id number] [employer] PFFS Commercial [id number] 2.16840.1.144306.3. [id number] Self [id number] [employer] PFFS Commercial [id number] 2.0.1.539433.3. [id number] Self [id number] [employer] PFFS Commercial [id number] 2.0.1.303922.3. [id number] Self [id number] [employer] PFFS Commercial [id number] Self [id number] [employer] PFFS Commercial [id number] Self Today's Option Commercial [id number] 7711.0 Self [id number] [employer] Commercial [id number] Self Today's Option Medicare Commercial [id number] Self [id number] Today's Options Ppo Commercial [id number] [id number] Self [id number] [employer] Ppo Commercial [id number] [id number] [id number] Self [id number] [employer] Ppo Commercial [id number] 2.0.1.012069.3.2 [id number] Self [id number] [employer] Ppo Commercial [id number] 2.0.1.388628.3.2 [id number] Self [id number] [employer] Ppo Commercial [id number] [id number] [id number] Self [id number] [employer] Ppo Commercial [id number] [id number] [id number] Self [id number] [employer] Ppo Commercial [id number] 2.0.1.725728.3.2 [id number] Self [id number] [employer] Ppo Commercial [id number] 2.0.1.819947.3.2 [id number] Self [id number] [employer] Ppo Commercial [id number] [id number] [id number] Self [id number] Today's Options Ppo Commercial [id number] Self [id number] Today's Options Ppo Commercial [id number] Self [id number] Today's Options Ppo Commercial [id number] Self [id number] Today's Options Ppo Commercial [id number] Self Today's Options Ppo Commercial [id number] Self [id number] Today's Options Ppo Commercial [id number] Self [id number] Today's Options Ppo Commercial [id number] Self [id number] Today's Options Ppo Commercial [id number] Self [id number] Today's Options Ppo Commercial [id number] [id number] Self [id number] Today's Options Ppo Commercial [id number] Self [id number] TODAYS OPTIONS [id number] SP [id number] TODAYS OPTIONS [id number] SP [id number] Todays Options Commercial [id number] Self WELLCARE [id number] SP [id number] [employer] [id number] Rachel f [id number] Wellcare Health [employer] [id number] Rachel f [id number] OTHER B TRANSPLANT Self TRANSPLAN T MEDICARE [id number] SP [id number] [facility] [place] [id number] WELLCARE [id number] SP [id number] "" [facility] None WELLCARE O [id number] S [id number] WELLCARE O [id number] S [id number] WELLCARE [id number] SP [id number] MEDICARE [id number] SP [id number] A [facility] CP DUAL COMP - FACILITY [id number] 18 [id number] Wellcare MCR - To Ppo Commercial [id number] Self [id number] Medicare (Part B) Medicare Primary [id number] Self [id number] Wellcare MCR - To Ppo Commercial [id number] Self [id number] Medicare (Part B) Medicare Primary [id number] Self [id number] TODAYS OPTIONS [id number] SP [id number] Wellcare MCR - To Ppo Commercial [id number] .[id number] Self [id number] Medicare (Part B) Medicare Primary [id number] Self [id number] Wellcare MCR - To Ppo Commercial [id number] .[id number] Self [id number] Medicare (Part B) Medicare Primary [id number] Self [id number] MEDICARE [id number] SP [id number] A TOD[employer]YS OPTIONS [id number] SP [id number] Medicare (Part B) Medicare Primary [id number] Self 06 [id number] Medicare (Part B) Medicare Primary [id number] Self 06 [id number] TODAYS OPTIONS/[place] O [id number] S [id number] Medicare (Part B) Medicare Primary [id number] Self 06 [id number] Medicare (Part B) Medicare Primary [id number] Self 06 [id number] Medicare (Part B) Medicare Primary [id number] Self 06 [id number] Medicare (Part B) Medicare Primary [id number] Self 06 [id number] Medicare (Part B) Medicare Primary [id number] Self 06 [id number] Medicare (Part B) Medicare Primary [id number] Self 06 [id number] Medicare (Part B) Medicare Primary [id number] Self 06 [id number] Medicare (Part B) Medicare Primary [id number] Self 06 [id number] Medicare (Part B) Medicare Primary [id number] Self 06 [id number] Medicare (Part B) Medicare Primary [id number] Self 06 [id number] Medicare (Part B) Medicare Primary [id number] Self 06 [id number] Medicare (Part B) Medicare Primary [id number] Self 06 [id number] Medicare (Part B) Medicare Primary [id number] Self BS [place] [facility] [id number] Self Medicare Medicare Primary [id number] Self WELLCARE [id number] SP [id number] Problems, Conditions, and Diagnoses Code Display Name Description Problem Type Effective Dates Data Source(s) R13.11 Dysphagia, oral phase DYSPHAGIA, ORAL PHASE Diagnosis 05/24/2020 12:00:00 AM EST PCC ([facility]) R26.2 Difficulty in walking, not elsewhere cla ssified DIFFICULTY IN WALKING, NOT ELSEWHERE CLASSIFIED Diagnosis 05/23/2020 12:00:00 AM EST PCC ([facility]) M62.81 Muscle weakness (generalized) MUSCLE WEAKNESS (GENERAL IZED) Diagnosis 05/23/2020 12:00:00 AM EST PCC ([facility]) I10 Essential (primary) hypertension ESSENTIAL (PRIMARY) H YPERTENSION Diagnosis 05/22/2020 12:00:00 AM EST PCC ([facility]) Z99.2 Dependence on renal dialysis DEPENDENCE ON RENAL DIALY SIS Diagnosis 05/22/2020 12:00:00 AM EST PCC ([facility]) E03.9 Hypothyroidism, unspecified HYPOTHYROIDISM, UNSPECIFIE D Diagnosis 05/22/2020 12:00:00 AM EST PCC ([facility]) T82.9XXD Unspecified complication of cardiac and vascular prosthetic device, implant and graft, subsequent encounter UNSPECIFIED COMPLICATION OF CARDIAC AND VASCULAR PROSTHETIC DEVICE, IMPLANT AND GRAFT, SUBSEQUENT ENCOUNTER Diagnosis 05/22/2020 12:00:00 AM EST PCC ([facility]) N18.9 Chronic kidney disease, unspecified CHRONIC KIDN EY DISEASE, UNSPECIFIED Diagnosis 05/22/2020 12:00:00 AM EST PCC ([facility]) N17.9 Acute kidney failure, unspecified ACUTE KIDNEY F AILURE, UNSPECIFIED Diagnosis 05/22/2020 12:00:00 AM EST PCC ([facility]) E87.70 Fluid overload, unspecified FLUID OVERLOAD, UNSPECIFIE D Diagnosis 05/22/2020 12:00:00 AM EST PCC ([facility]) N25.0 Renal osteodystrophy RENAL OSTEODYSTROPHY Diagnosis 05/22/2020 12:00:00 AM EST PCC ([facility]) E11.9 Type 2 diabetes mellitus without complic ations TYPE 2 DIABETES MELLITUS WITHOUT COMPLICATIONS Diagnosis 05/22/2020 12:00:00 AM EST PCC ([facility]) I48.91 Unspecified atrial fibrillation UNSPECIFIED ATRI AL FIBRILLATION Diagnosis 05/22/2020 12:00:00 AM EST PCC ([facility]) I25.10 Atherosclerotic heart diseas e of [place] coronary artery without angina pectoris ATHEROSCLEROTIC HEART DISEASE OF [place] CORONARY ARTERY WITHOUT ANGINA PECTORIS Diagnosis 05/22/2020 12:00:00 AM EST PCC ([facility] [place]) N18.6 End stage renal disease END STAGE RENAL DISEASE Diagno sis 05/22/2020 12:00:00 AM EST PCC ([facility]) Z20.822 CONTACT WITH AND (SUSPECTED) EXPOSURE TO COVID-19 CONTACT WITH AND (SUSPECTED) EXPOSURE TO COVID-19 Diagnosis 05/22/2020 12:00:00 AM EST PCC ([facility]) I21.4 Non-ST elevation (NSTEMI) myocardial inf arction NON-ST ELEVATION (NSTEMI) MYOCARDIAL INFARCTION Diagnosis 05/22/2020 12:00:00 AM EST PCC ([facility]) R04.1 Hemorrhage from throat HEMORRHAGE FROM THROAT Diagnosi s 05/22/2020 12:00:00 AM EST PCC ([facility]) D63.1 Anemia in chronic kidney disease ANEMIA IN CHRON IC KIDNEY DISEASE Diagnosis 05/22/2020 12:00:00 AM EST PCC ([facility]) R11.0 Nausea NAUSEA Diagnosis 05/22/2020 12:00:00 AM ES T PCC ([facility]) R42 Dizziness and giddiness DIZZINESS AND GIDDINESS Diagno sis 05/22/2020 12:00:00 AM EST PCC ([facility]) Z95.1 Presence of aortocoronary bypass graft P RESENCE OF AORTOCORONARY BYPASS GRAFT Diagnosis 05/22/2020 12:00:00 AM EST PCC ([facility] [place]) K21.9 Gastro-esophageal reflux disease without esophagitis GASTRO-ESOPHAGEAL REFLUX DISEASE WITHOUT ESOPHAGITIS Diagnosis 05/22/2020 12:00:00 AM ES T PCC ([facility]) I21.4 Non-ST elevation (NSTEMI) myocardial inf arction Non-ST elevation (NSTEMI) myocardial infarction Diagnosis 05/11/2020 03:45:57 PM EST [facility] chest pain, ST elevation chest pain, ST elevation Diag nosis 05/11/2020 03:32:00 PM [facility] L84 Corns and callosities Corns and callosities Diagnosis 05/08/2020 01:58:00 PM EST [facility] I739 Peripheral vascular disease, unspecified Peripheral vascular disease, unspecified Diagnosis 05/08/2020 01:58:00 PM [facility] E1142 Type 2 diabetes mellitus with diabetic p olyneuropathy Type 2 diabetes mellitus with diabetic polyneuropathy Diagnosis 05/08/2020 01:58:00 PM [facility] B351 Tinea unguium Tinea unguium Diagnosis 05/08/2020 01:58:00 PM [facility] I22.2 Acute subendocardial infarction Acute subendocardial i nfarction Problem 06/14/2020 12:00:00 AM EDT MEDENT ([facility] ) I21.4 Acute subendocardial infarction Acute subendocardial i nfarction Problem 06/12/2020 12:00:00 AM EDT MEDENT ([facility]) I48.21 Permanent atrial fibrillation Permanent atrial fibrill ation Problem 05/01/2020 12:00:00 AM EST MEDENT ([facility]) Surgeries/Procedures Procedure Description Date Indications Data Source(s) OFFICE OUTPATIENT VISIT 15 MINUTES 07/29/2020 12:00:00 AM EDT MEDENT ([facility] OFFICE OUTPATIENT VISIT 25 MINUTES 07/26/2020 12:00:00 AM EDT MEDENT ([facility] OFFICE OUTPATIENT VISIT 25 MINUTES 07/12/2020 12:00:00 AM EDT MEDENT ([facility] OFFICE OUTPATIENT VISIT 25 MINUTES 06/14/2020 12:00:00 AM EDT MEDENT ([facility] ECG ROUTINE ECG W/LEAST 12 LDS W/I&R 06/12/2020 12:00: 00 AM EDT MEDENT ([facility] OFFICE OUTPATIENT VISIT 15 MINUTES 06/12/2020 12:00:00 AM EDT MEDENT ([facility] POCT GLUCOSE, DOCKED <td>POCT GLUCOSE, DOCKED</td ><td>Routine</td><td>05/22/2020 11:33 AM EST</td><td></td><td> </td> 05/22/2020 11:33:00 AM [facility] POCT GLUCOSE, DOCKED <td>POCT GLUCOSE, DOCKED</td ><td>Routine</td><td>05/22/2020 7:36 AM EST</td><td></td><td> </td> 05/22/2020 07:36:00 AM [facility] GLUCOSE QUANTITATIVE BLOOD XCPT REAGENT STRIP <td>POCT GLUCOSE, DOCKED</td><td>Routine</td><td>05/21/2020 9:01 PM EST</td><td></td><td> </td> 05/21/2020 09:01:00 PM [facility] GLUCOSE QUANTITATIVE BLOOD XCPT REAGENT STRIP <td>POCT GLUCOSE, DOCKED</td><td>Routine</td><td>05/21/2020 4:29 PM EST</td><td></td><td> </td> 05/21/2020 04:29:00 PM [facility] RESPIRATORY PATHOGEN PANEL <td>RESPIRATORY PATHOGEN PANEL</td><td>Routine</td><td>05/21/2020 12:40 PM EST</td><td></td><td> </td> 05/21/2020 12:40:00 PM [facility] COVID-19 PCR <td>COVID-19 PCR</td><td>Rou oneal</td><td>05/21/2020 12:40 PM EST</td><td></td><td> </td> 05/21/2020 12:40:00 PM [facility] GLUCOSE QUANTITATIVE BLOOD XCPT REAGENT STRIP <td>POCT GLUCOSE, DOCKED</td><td>Routine</td><td>05/21/2020 11:43 AM EST</td><td></td><td> </td> 05/21/2020 11:43:00 AM [facility] GLUCOSE QUANTITATIVE BLOOD XCPT REAGENT STRIP <td>POCT GLUCOSE, DOCKED</td><td>Routine</td><td>05/21/2020 7:31 AM EST</td><td></td><td> </td> 05/21/2020 07:31:00 AM [facility] BLOOD COUNT COMPLETE AUTO&AUTO DIFRNTL WBC COUNT <td>C BC AND DIFFERENTIAL</td><td>Timed</td><td>05/21/2020 3:20 AM EST</td><td></td><td> </td> 05/21/2020 03:20:00 AM [facility] BASIC METABOLIC PANEL CALCIUM TOTAL <td>BASIC METABOLI C PANEL</td><td>Routine</td><td>05/21/2020 3:20 AM EST</td><td></td><td> </td> 05/21/2020 03:20:00 AM [facility] GLUCOSE QUANTITATIVE BLOOD XCPT REAGENT STRIP <td>POCT GLUCOSE, DOCKED</td><td>Routine</td><td>05/20/2020 9:19 PM EST</td><td></td><td> </td> 05/20/2020 09:19:00 PM [facility] GLUCOSE QUANTITATIVE BLOOD XCPT REAGENT STRIP <td>POCT GLUCOSE, DOCKED</td><td>Routine</td><td>05/20/2020 4:32 PM EST</td><td></td><td> </td> 05/20/2020 04:32:00 PM [facility] GLUCOSE QUANTITATIVE BLOOD XCPT REAGENT STRIP <td>POCT GLUCOSE, DOCKED</td><td>Routine</td><td>05/20/2020 11:21 AM EST</td><td></td><td> </td> 05/20/2020 11:21:00 AM [facility] GLUCOSE QUANTITATIVE BLOOD XCPT REAGENT STRIP <td>POCT GLUCOSE, DOCKED</td><td>Routine</td><td>05/20/2020 7:26 AM EST</td><td></td><td> </td> 05/20/2020 07:26:00 AM [facility] BLOOD COUNT COMPLETE AUTO&AUTO DIFRNTL WBC COUNT <td>C BC AND DIFFERENTIAL</td><td>Routine</td><td>05/20/2020 5:23 AM EST</td><td></td><td> </td> 05/20/2020 05:23:00 AM [facility] BASIC METABOLIC PANEL CALCIUM TOTAL <td>BASIC METABOLI C PANEL</td><td>Routine</td><td>05/20/2020 4:10 AM EST</td><td></td><td> </td> 05/20/2020 04:10:00 AM [facility] GLUCOSE QUANTITATIVE BLOOD XCPT REAGENT STRIP <td>POCT GLUCOSE, DOCKED</td><td>Routine</td><td>05/19/2020 9:22 PM EST</td><td></td><td> </td> 05/19/2020 09:22:00 PM [facility] BLOOD COUNT COMPLETE AUTO&AUTO DIFRNTL WBC COUNT <td>C BC AND DIFFERENTIAL</td><td>Timed</td><td>05/19/2020 6:27 PM EST</td><td></td><td> </td> 05/19/2020 06:27:00 PM [facility] GLUCOSE QUANTITATIVE BLOOD XCPT REAGENT STRIP <td>POCT GLUCOSE, DOCKED</td><td>Routine</td><td>05/19/2020 4:24 PM EST</td><td></td><td> </td> 05/19/2020 04:24:00 PM [facility] GLUCOSE QUANTITATIVE BLOOD XCPT REAGENT STRIP <td>POCT GLUCOSE, DOCKED</td><td>Routine</td><td>05/19/2020 11:20 AM EST</td><td></td><td> </td> 05/19/2020 11:20:00 AM [facility] COVID-19 PCR <td>COVID-19 PCR</td><td>Rou oneal</td><td>05/19/2020 9:53 AM EST</td><td></td><td> </td> 05/19/2020 09:53:00 AM [facility] GLUCOSE QUANTITATIVE BLOOD XCPT REAGENT STRIP <td>POCT GLUCOSE, DOCKED</td><td>Routine</td><td>05/19/2020 7:17 AM EST</td><td></td><td> </td> 05/19/2020 07:17:00 AM [facility] BLOOD COUNT COMPLETE AUTO&AUTO DIFRNTL WBC COUNT <td>C BC AND DIFFERENTIAL</td><td>Timed</td><td>05/19/2020 6:10 AM EST</td><td></td><td> </td> 05/19/2020 06:10:00 AM [facility] BASIC METABOLIC PANEL CALCIUM TOTAL <td>BASIC METABOLI C PANEL</td><td>Routine</td><td>05/19/2020 6:10 AM EST</td><td></td><td> </td> 05/19/2020 06:10:00 AM [facility] GLUCOSE QUANTITATIVE BLOOD XCPT REAGENT STRIP <td>POCT GLUCOSE, DOCKED</td><td>Routine</td><td>05/18/2020 8:49 PM EST</td><td></td><td> </td> 05/18/2020 08:49:00 PM [facility] BLOOD COUNT COMPLETE AUTO&AUTO DIFRNTL WBC COUNT <td>C BC AND DIFFERENTIAL</td><td>Timed</td><td>05/18/2020 6:32 PM EST</td><td></td><td> </td> 05/18/2020 06:32:00 PM [facility] GLUCOSE QUANTITATIVE BLOOD XCPT REAGENT STRIP <td>POCT GLUCOSE, DOCKED</td><td>Routine</td><td>05/18/2020 4:21 PM EST</td><td></td><td> </td> 05/18/2020 04:21:00 PM [facility] GLUCOSE QUANTITATIVE BLOOD XCPT REAGENT STRIP <td>POCT GLUCOSE, DOCKED</td><td>Routine</td><td>05/18/2020 11:16 AM EST</td><td></td><td> </td> 05/18/2020 11:16:00 AM [facility] GLUCOSE QUANTITATIVE BLOOD XCPT REAGENT STRIP <td>POCT GLUCOSE, DOCKED</td><td>Routine</td><td>05/18/2020 10:03 AM EST</td><td></td><td> </td> 05/18/2020 10:03:00 AM [facility] GLUCOSE QUANTITATIVE BLOOD XCPT REAGENT STRIP <td>POCT GLUCOSE, DOCKED</td><td>Routine</td><td>05/18/2020 7:27 AM EST</td><td></td><td> </td> 05/18/2020 07:27:00 AM [facility] BLOOD COUNT COMPLETE AUTOMATED <td>CBC AND DIFFERENTIAL</td><td>Timed</td><td>05/18/2020 4:54 AM EST</td><td></td><td> </td> 05/18/2020 04:54:00 AM [facility] BASIC METABOLIC PANEL CALCIUM TOTAL <td>BASIC METABOLI C PANEL</td><td>Routine</td><td>05/18/2020 4:54 AM EST</td><td></td><td> </td> 05/18/2020 04:54:00 AM [facility] URNLS DIP STICK/TABLET REAGENT AUTO MICROSCOPY <td>URI NALYSIS WITH REFLEX URINE CULTURE</td><td>Routine</td><td>05/17/2020 11:14 PM EST</td><td></td><td> </td> 05/17/2020 11:14:00 PM [facility] CULTURE BCT ISOL&PRSMPTV ID ISOLATE EA URINE <td>URINE CULTURE</td><td>Routine</td><td>05/17/2020 11:14 PM EST</td><td></td><td> </td> 05/17/2020 11:14:00 PM [facility] GLUCOSE QUANTITATIVE BLOOD XCPT REAGENT STRIP <td>POCT GLUCOSE, DOCKED</td><td>Routine</td><td>05/17/2020 9:47 PM EST</td><td></td><td> </td> 05/17/2020 09:47:00 PM [facility] BLOOD COUNT COMPLETE AUTOMATED <td>CBC AND DIFFERENTIAL</td><td>Timed</td><td>05/17/2020 9:43 PM EST</td><td></td><td> </td> 05/17/2020 09:43:00 PM [facility] GLUCOSE QUANTITATIVE BLOOD XCPT REAGENT STRIP <td>POCT GLUCOSE, DOCKED</td><td>Routine</td><td>05/17/2020 4:52 PM EST</td><td></td><td> </td> 05/17/2020 04:52:00 PM [facility] GLUCOSE QUANTITATIVE BLOOD XCPT REAGENT STRIP <td>POCT GLUCOSE, DOCKED</td><td>Routine</td><td>05/17/2020 4:42 PM EST</td><td></td><td> </td> 05/17/2020 04:42:00 PM [facility] VASC LAB US DOPPLER LOWER EXTREMITY BILATERAL VENOUS C OMP [id number] <td>VASC LAB US DOPPLER LOWER EXTREMITY BILATERAL VENOUS COMP 73503</td><td>Routine</td><td>05/17/2020 4:27 PM EST</td><td></td><td> </td> 05/17/2020 04:27:00 PM [facility] XR CHEST FRONTAL ONLY [id number] <td>XR CHEST FRONTAL ONLY [id number]</td><td>STAT</td><td>05/17/2020 2:40 PM EST</td><td></td><td> </td> 05/17/2020 02:40:00 PM [facility] CULTURE BACTERIAL BLOOD AEROBIC W/ID ISOLATES <td>BLOO D CULTURE</td><td>Routine</td><td>05/17/2020 2:20 PM EST</td><td></td><td> </td> 05/17/2020 02:20:00 PM [facility] CULTURE BACTERIAL BLOOD AEROBIC W/ID ISOLATES <td>BLOO D CULTURE</td><td>Routine</td><td>05/17/2020 2:20 PM EST</td><td></td><td> </td> 05/17/2020 02:20:00 PM [facility] GLUCOSE QUANTITATIVE BLOOD XCPT REAGENT STRIP <td>POCT GLUCOSE, DOCKED</td><td>Routine</td><td>05/17/2020 11:23 AM EST</td><td></td><td> </td> 05/17/2020 11:23:00 AM [facility] GLUCOSE QUANTITATIVE BLOOD XCPT REAGENT STRIP <td>POCT GLUCOSE, DOCKED</td><td>Routine</td><td>05/17/2020 7:28 AM EST</td><td></td><td> </td> 05/17/2020 07:28:00 AM [facility] HEPARIN ASSAY <td>ANTI-XA UNFRACTIONATED H EPARIN LEVEL</td><td>Routine</td><td>05/17/2020 4:30 AM EST</td><td></td><td> </td> 05/17/2020 04:30:00 AM [facility] BLOOD COUNT COMPLETE AUTO&AUTO DIFRNTL WBC COUNT <td>C BC AND DIFFERENTIAL</td><td>Timed</td><td>05/17/2020 4:30 AM EST</td><td></td><td> </td> 05/17/2020 04:30:00 AM [facility] BASIC METABOLIC PANEL CALCIUM TOTAL <td>BASIC METABOLI C PANEL</td><td>Routine</td><td>05/17/2020 4:30 AM EST</td><td></td><td> </td> 05/17/2020 04:30:00 AM [facility] GLUCOSE QUANTITATIVE BLOOD XCPT REAGENT STRIP <td>POCT GLUCOSE, DOCKED</td><td>Routine</td><td>05/16/2020 9:51 PM EST</td><td></td><td> </td> 05/16/2020 09:51:00 PM [facility] MRA NECK W/O CONTRST MATERIAL <td>MR ANGIOGRAPHY NECK WITHOUT CONTRAST [id number]</td><td>Routine</td><td>05/16/2020 6:42 PM EST</td><td></td><td> </td> 05/16/2020 06:42:00 PM [facility] MRA HEAD W/O CONTRST MATERIAL <td>MR ANGIOGRAPHY HEAD WITHOUT CONTRAST [id number]</td><td>Routine</td><td>05/16/2020 6:42 PM EST</td><td></td><td> </td> 05/16/2020 06:42:00 PM [facility] BLOOD COUNT COMPLETE AUTO&AUTO DIFRNTL WBC COUNT <td>C BC AND DIFFERENTIAL</td><td>Timed</td><td>05/16/2020 5:35 PM EST</td><td></td><td> </td> 05/16/2020 05:35:00 PM [facility] GLUCOSE QUANTITATIVE BLOOD XCPT REAGENT STRIP <td>POCT GLUCOSE, DOCKED</td><td>Routine</td><td>05/16/2020 5:24 PM EST</td><td></td><td> </td> 05/16/2020 05:24:00 PM [facility] COVID-19 PCR <td>COVID-19 PCR</td><td>Rou oneal</td><td>05/16/2020 4:11 PM EST</td><td></td><td> </td> 05/16/2020 04:11:00 PM [facility] GLUCOSE QUANTITATIVE BLOOD XCPT REAGENT STRIP <td>POCT GLUCOSE, DOCKED</td><td>Routine</td><td>05/16/2020 3:40 PM EST</td><td></td><td> </td> 05/16/2020 03:40:00 PM [facility] GLUCOSE QUANTITATIVE BLOOD XCPT REAGENT STRIP <td>POCT GLUCOSE, DOCKED</td><td>Routine</td><td>05/16/2020 2:07 PM EST</td><td></td><td> </td> 05/16/2020 02:07:00 PM [facility] GLUCOSE QUANTITATIVE BLOOD XCPT REAGENT STRIP <td>POCT GLUCOSE, DOCKED</td><td>Routine</td><td>05/16/2020 12:27 PM EST</td><td></td><td> </td> 05/16/2020 12:27:00 PM [facility] GLUCOSE QUANTITATIVE BLOOD XCPT REAGENT STRIP <td>POCT GLUCOSE, DOCKED</td><td>Routine</td><td>05/16/2020 8:09 AM EST</td><td></td><td> </td> 05/16/2020 08:09:00 AM [facility] BLOOD COUNT COMPLETE AUTO&AUTO DIFRNTL WBC COUNT <td>C BC AND DIFFERENTIAL</td><td>Timed</td><td>05/16/2020 6:27 AM EST</td><td></td><td> </td> 05/16/2020 06:27:00 AM [facility] BASIC METABOLIC PANEL CALCIUM TOTAL <td>BASIC METABOLI C PANEL</td><td>Routine</td><td>05/16/2020 6:27 AM EST</td><td></td><td> </td> 05/16/2020 06:27:00 AM [facility] EKG 12-LEAD - CMAXX REPORT <td>EKG 12-LEAD - CMAXX REPORT</td><td></td><td>05/16/2020 1:13 AM EST</td><td></td><td></td> 05/16/2020 01:13:44 AM [facility] EKG 12-LEAD - CMAXX REPORT <td>EKG 12-LEAD - CMAXX REPORT</td><td></td><td>05/16/2020 1:13 AM EST</td><td></td><td></td> 05/16/2020 01:13:44 AM [facility] EKG 12-LEAD <td>EKG 12-LEAD</td><td>Rout ine</td><td>05/16/2020 1:13 AM EST</td><td></td><td> </td> 05/16/2020 01:13:44 AM [facility] GLUCOSE QUANTITATIVE BLOOD XCPT REAGENT STRIP <td>POCT GLUCOSE, DOCKED</td><td>Routine</td><td>05/15/2020 9:04 PM EST</td><td></td><td> </td> 05/15/2020 09:04:00 PM [facility] BLOOD COUNT COMPLETE AUTO&AUTO DIFRNTL WBC COUNT <td>C BC AND DIFFERENTIAL</td><td>Timed</td><td>05/15/2020 6:31 PM EST</td><td></td><td> </td> 05/15/2020 06:31:00 PM [facility] GLUCOSE QUANTITATIVE BLOOD XCPT REAGENT STRIP <td>POCT GLUCOSE, DOCKED</td><td>Routine</td><td>05/15/2020 5:17 PM EST</td><td></td><td> </td> 05/15/2020 05:17:00 PM [facility] GLUCOSE QUANTITATIVE BLOOD XCPT REAGENT STRIP <td>POCT GLUCOSE, DOCKED</td><td>Routine</td><td>05/15/2020 12:08 PM EST</td><td></td><td> </td> 05/15/2020 12:08:00 PM [facility] PLATELET AGGREGATION IN VITRO EACH AGENT <td>VERIFYNOW P2Y12</td><td>Routine</td><td>05/15/2020 11:47 AM EST</td><td></td><td> </td> 05/15/2020 11:47:00 AM [facility] CREATINE KINASE TOTAL <td>CK</td><td>Routine</td>< td>05/15/2020 11:47 AM EST</td><td></td><td> </td> 05/15/2020 11:47:00 AM [facility] GLUCOSE QUANTITATIVE BLOOD XCPT REAGENT STRIP <td>POCT GLUCOSE, DOCKED</td><td>Routine</td><td>05/15/2020 8:26 AM EST</td><td></td><td> </td> 05/15/2020 08:26:00 AM [facility] BLOOD COUNT COMPLETE AUTO&AUTO DIFRNTL WBC COUNT <td>C BC AND DIFFERENTIAL</td><td>Timed</td><td>05/15/2020 3:59 AM EST</td><td></td><td> </td> 05/15/2020 03:59:00 AM [facility] BASIC METABOLIC PANEL CALCIUM TOTAL <td>BASIC METABOLI C PANEL</td><td>Routine</td><td>05/15/2020 3:59 AM EST</td><td></td><td> </td> 05/15/2020 03:59:00 AM [facility] URNLS DIP STICK/TABLET REAGENT AUTO MICROSCOPY <td>URI NALYSIS WITH REFLEX URINE CULTURE</td><td>Routine</td><td>05/14/2020 6:25 PM EST</td><td></td><td> </td> 05/14/2020 06:25:00 PM [facility] CULTURE BCT ISOL&PRSMPTV ID ISOLATE EA URINE <td>URINE CULTURE</td><td>Routine</td><td>05/14/2020 6:25 PM EST</td><td></td><td> </td> 05/14/2020 06:25:00 PM [facility] BLOOD COUNT COMPLETE AUTO&AUTO DIFRNTL WBC COUNT <td>C BC AND DIFFERENTIAL</td><td>Timed</td><td>05/14/2020 5:49 PM EST</td><td></td><td> </td> 05/14/2020 05:49:00 PM [facility] GLUCOSE QUANTITATIVE BLOOD XCPT REAGENT STRIP <td>POCT GLUCOSE, DOCKED</td><td>Routine</td><td>05/14/2020 5:24 PM EST</td><td></td><td> </td> 05/14/2020 05:24:00 PM [facility] GLUCOSE QUANTITATIVE BLOOD XCPT REAGENT STRIP <td>POCT GLUCOSE, DOCKED</td><td>Routine</td><td>05/14/2020 2:28 PM EST</td><td></td><td> </td> 05/14/2020 02:28:00 PM [facility] EKG 12-LEAD - CMAXX REPORT <td>EKG 12-LEAD - CMAXX REPORT</td><td></td><td>05/14/2020 2:23 PM EST</td><td></td><td></td> 05/14/2020 02:23:41 PM [facility] EKG 12-LEAD - CMAXX REPORT <td>EKG 12-LEAD - CMAXX REPORT</td><td></td><td>05/14/2020 2:23 PM EST</td><td></td><td></td> 05/14/2020 02:23:41 PM [facility] EKG 12-LEAD <td>EKG 12-LEAD</td><td>STAT </td><td>05/14/2020 2:23 PM EST</td><td></td><td> </td> 05/14/2020 02:23:41 PM [facility] BUSINESS LAWYER PROCEDURE <td>BUSINESS LAWYER PROCEDURE</td>< td>Routine</td><td>05/14/2020 2:00 PM EST</td><td></td><td> </td> 05/14/2020 02:00:34 PM [facility] COAGULATION TIME ACTIVATED <td>POCT ISTAT ACT</td><td> Routine</td><td>05/14/2020 12:11 PM EST</td><td></td><td> </td> 05/14/2020 12:11:00 PM [facility] COAGULATION TIME ACTIVATED <td>POCT ISTAT ACT</td><td> Routine</td><td>05/14/2020 11:36 AM EST</td><td></td><td> </td> 05/14/2020 11:36:00 AM [facility] HEART FLOW RESERV MEASURE,INIT VESSL [[id number]] <td>HEART FLOW RESERV MEASURE,INIT VESSL [[id number]]</td><td></td><td>05/14/2020 10:31 AM EST</td><td> angina</td><td></td> 05/14/2020 10:31:00 AM EST - 05/14/2020 01:43:00 PM [facility] PRQ TRLUML CORONARY STENT W/ANGIO ONE ART/BRNCH [[id number] ] <td>PRQ TRLUML CORONARY STENT W/ANGIO ONE ART/BRNCH [[id number]]</td><td></td><td>05/14/2020 10:31 AM EST</td><td> angina</td><td></td> 05/14/2020 10:31:00 AM EST - 05/14/2020 01:43:00 PM [facility] INTRAVASC US,HEART,1ST VESSEL [[id number]] <td>INTRAVASC US ,HEART,1ST VESSEL [[id number]]</td><td></td><td>05/14/2020 10:31 AM EST</td><td> angina</td><td></td> 05/14/2020 10:31:00 AM EST - 05/14/2020 01:43:00 PM [facility] PRQ TRLUML CORONARY ANGIOPLASTY ONE ART/BRANCH [[id number]] <td>PRQ TRLUML CORONARY ANGIOPLASTY ONE ART/BRANCH [[id number]]</td><td></td><td>05/14/2020 10:31 AM EST</td><td> angina</td><td></td> 05/14/2020 10:31:00 AM EST - 05/14/2020 01:43:00 PM [facility] L HRT ART/GRFT ANGIO <td>L HRT ART/GRFT ANGIO</td ><td></td><td>05/14/2020 10:31 AM EST</td><td> angina</td><td></td> 05/14/2020 10:31:00 AM EST - 05/14/2020 01:43:00 PM [facility] CARDIAC CATH PROCEDURE LOG <td>CARDIAC CATH PROCEDURE LOG</td><td></td><td>05/14/2020 9:59 AM EST</td><td></td><td></td> 05/14/2020 09:59:35 AM [facility] GLUCOSE QUANTITATIVE BLOOD XCPT REAGENT STRIP <td>POCT GLUCOSE, DOCKED</td><td>Routine</td><td>05/14/2020 8:08 AM EST</td><td></td><td> </td> 05/14/2020 08:08:00 AM [facility] HEPARIN ASSAY <td>ANTI-XA UNFRACTIONATED H EPARIN LEVEL</td><td>Routine</td><td>05/14/2020 3:45 AM EST</td><td></td><td> </td> 05/14/2020 03:45:00 AM [facility] PROTHROMBIN TIME <td>PROTIME INR</td><td>Rout ine</td><td>05/14/2020 3:45 AM EST</td><td></td><td> </td> 05/14/2020 03:45:00 AM [facility] BLOOD COUNT COMPLETE AUTO&AUTO DIFRNTL WBC COUNT <td>C BC AND DIFFERENTIAL</td><td>Timed</td><td>05/14/2020 3:45 AM EST</td><td></td><td> </td> 05/14/2020 03:45:00 AM [facility] BASIC METABOLIC PANEL CALCIUM TOTAL <td>BASIC METABOLI C PANEL</td><td>Routine</td><td>05/14/2020 3:45 AM EST</td><td></td><td> </td> 05/14/2020 03:45:00 AM [facility] GLUCOSE QUANTITATIVE BLOOD XCPT REAGENT STRIP <td>POCT GLUCOSE, DOCKED</td><td>Routine</td><td>05/13/2020 10:57 PM EST</td><td></td><td> </td> 05/13/2020 10:57:00 PM [facility] HEPARIN ASSAY <td>ANTI-XA UNFRACTIONATED H EPARIN LEVEL</td><td>Routine</td><td>05/13/2020 8:05 PM EST</td><td></td><td> </td> 05/13/2020 08:05:00 PM [facility] HEPARIN ASSAY <td>ANTI-XA UNFRACTIONATED H EPARIN LEVEL</td><td>Routine</td><td>05/13/2020 5:18 PM EST</td><td></td><td> </td> 05/13/2020 05:18:00 PM [facility] PROTHROMBIN TIME <td>PROTIME INR</td><td>Rout ine</td><td>05/13/2020 5:18 PM EST</td><td></td><td> </td> 05/13/2020 05:18:00 PM [facility] BLOOD COUNT COMPLETE AUTO&AUTO DIFRNTL WBC COUNT <td>C BC AND DIFFERENTIAL</td><td>Routine</td><td>05/13/2020 5:15 PM EST</td><td></td><td> </td> 05/13/2020 05:15:00 PM [facility] HEMOGLOBIN GLYCOSYLATED A1C <td>HEMOGLOBIN A1C</td><td>Routine</td><td>05/13/2020 5:15 PM EST</td><td></td><td> </td> 05/13/2020 05:15:00 PM [facility] GLUCOSE QUANTITATIVE BLOOD XCPT REAGENT STRIP <td>POCT GLUCOSE, DOCKED</td><td>Routine</td><td>05/13/2020 5:09 PM EST</td><td></td><td> </td> 05/13/2020 05:09:00 PM [facility] HEPARIN ASSAY <td>ANTI-XA UNFRACTIONATED H EPARIN LEVEL</td><td>Routine</td><td>05/13/2020 4:09 PM EST</td><td></td><td> </td> 05/13/2020 04:09:00 PM [facility] PROTHROMBIN TIME <td>PROTIME INR</td><td>Rout ine</td><td>05/13/2020 4:09 PM EST</td><td></td><td> </td> 05/13/2020 04:09:00 PM [facility] GLUCOSE QUANTITATIVE BLOOD XCPT REAGENT STRIP <td>POCT GLUCOSE, DOCKED</td><td>Routine</td><td>05/13/2020 12:50 PM EST</td><td></td><td> </td> 05/13/2020 12:50:00 PM [facility] VASC LAB US DOPPLER CAROTID BILATERAL COMP [id number] <td>V ASC LAB US DOPPLER CAROTID BILATERAL COMP [id number]</td><td>Routine</td><td>05/13/2020 12:04 PM EST</td><td></td><td> </td> 05/13/2020 12:04:00 PM [facility] GLUCOSE QUANTITATIVE BLOOD XCPT REAGENT STRIP <td>POCT GLUCOSE, DOCKED</td><td>Routine</td><td>05/13/2020 8:57 AM EST</td><td></td><td> </td> 05/13/2020 08:57:00 AM [facility] BLOOD COUNT COMPLETE AUTO&AUTO DIFRNTL WBC COUNT <td>C BC AND DIFFERENTIAL</td><td>Timed</td><td>05/13/2020 6:23 AM EST</td><td></td><td> </td> 05/13/2020 06:23:00 AM [facility] TROPONIN QUANTITATIVE <td>TROPONIN T</td><td>Routi ne</td><td>05/13/2020 6:23 AM EST</td><td></td><td> </td> 05/13/2020 06:23:00 AM [facility] BASIC METABOLIC PANEL CALCIUM TOTAL <td>BASIC METABOLI C PANEL</td><td>Routine</td><td>05/13/2020 6:23 AM EST</td><td></td><td> </td> 05/13/2020 06:23:00 AM [facility] GLUCOSE QUANTITATIVE BLOOD XCPT REAGENT STRIP <td>POCT GLUCOSE, DOCKED</td><td>Routine</td><td>05/12/2020 5:09 PM EST</td><td></td><td> </td> 05/12/2020 05:09:00 PM [facility] BLOOD COUNT COMPLETE AUTOMATED <td>CBC</td><td>STAT</t d><td>05/12/2020 12:50 PM EST</td><td></td><td> </td> 05/12/2020 12:50:00 PM [facility] GLUCOSE QUANTITATIVE BLOOD XCPT REAGENT STRIP <td>POCT GLUCOSE, DOCKED</td><td>Routine</td><td>05/12/2020 12:21 PM EST</td><td></td><td> </td> 05/12/2020 12:21:00 PM [facility] URNLS DIP STICK/TABLET REAGENT AUTO MICROSCOPY <td>URI NALYSIS WITH MICROSCOPIC</td><td>STAT</td><td>05/12/2020 10:28 AM EST</td><td></td><td> </td> 05/12/2020 10:28:00 AM [facility] BLOOD COUNT COMPLETE AUTOMATED <td>CBC</td><td>STAT</t d><td>05/12/2020 10:28 AM EST</td><td></td><td> </td> 05/12/2020 10:28:00 AM [facility] THYROID STIMULATING HORMONE TSH <td>TSH</td><td>Routin e</td><td>05/12/2020 9:48 AM EST</td><td></td><td> </td> 05/12/2020 09:48:00 AM [facility] GLUCOSE QUANTITATIVE BLOOD XCPT REAGENT STRIP <td>POCT GLUCOSE, DOCKED</td><td>Routine</td><td>05/12/2020 8:16 AM EST</td><td></td><td> </td> 05/12/2020 08:16:00 AM [facility] ECHO TTHRC R-T 2D W/WOM-MODE COMPL SPEC&COLR DOP <td>E CHOCARDIOGRAM 2D COMPLETE</td><td>Routine</td><td>05/12/2020 8:06 AM EST</td><td></td><td> </td> 05/12/2020 08:06:35 AM [facility] THROMBOPLASTIN TIME PARTIAL PLASMA/WHOLE BLOOD <td>PAR TIAL THROMBOPLASTIN TIME (PTT)</td><td>Timed</td><td>05/12/2020 6:38 AM EST</td><td></td><td> </td> 05/12/2020 06:38:00 AM [facility] PROTHROMBIN TIME <td>PROTIME INR</td><td>Rout ine</td><td>05/12/2020 6:38 AM EST</td><td></td><td> </td> 05/12/2020 06:38:00 AM [facility] BLOOD COUNT COMPLETE AUTO&AUTO DIFRNTL WBC COUNT <td>C BC AND DIFFERENTIAL</td><td>Routine</td><td>05/12/2020 6:38 AM EST</td><td></td><td> </td> 05/12/2020 06:38:00 AM [facility] MAGNESIUM <td>MAGNESIUM LEVEL</td><td> Routine</td><td>05/12/2020 6:38 AM EST</td><td></td><td> </td> 05/12/2020 06:38:00 AM [facility] BASIC METABOLIC PANEL CALCIUM TOTAL <td>BASIC METABOLI C PANEL</td><td>Routine</td><td>05/12/2020 6:38 AM EST</td><td></td><td> </td> 05/12/2020 06:38:00 AM [facility] GLUCOSE QUANTITATIVE BLOOD XCPT REAGENT STRIP <td>POCT GLUCOSE, DOCKED</td><td>Routine</td><td>05/11/2020 11:06 PM EST</td><td></td><td> </td> 05/11/2020 11:06:00 PM [facility] THROMBOPLASTIN TIME PARTIAL PLASMA/WHOLE BLOOD <td>PAR TIAL THROMBOPLASTIN TIME (PTT)</td><td>Timed</td><td>05/11/2020 10:54 PM EST</td><td></td><td> </td> 05/11/2020 10:54:00 PM [facility] TROPONIN QUANTITATIVE <td>TROPONIN T</td><td>Timed </td><td>05/11/2020 10:54 PM EST</td><td></td><td> </td> 05/11/2020 10:54:00 PM [facility] RESPIRATORY PATHOGEN PANEL <td>RESPIRATORY PATHOGEN PANEL</td><td>Routine</td><td>05/11/2020 6:11 PM EST</td><td></td><td> </td> 05/11/2020 06:11:00 PM [facility] COVID-19 PCR <td>COVID-19 PCR</td><td>Rou oneal</td><td>05/11/2020 6:11 PM EST</td><td></td><td> </td> 05/11/2020 06:11:00 PM [facility] HEPARIN ASSAY <td>ANTI-XA UNFRACTIONATED H EPARIN LEVEL</td><td>Routine</td><td>05/11/2020 6:09 PM EST</td><td></td><td> </td> 05/11/2020 06:09:00 PM [facility] GLUCOSE QUANTITATIVE BLOOD XCPT REAGENT STRIP <td>POCT GLUCOSE, DOCKED</td><td>Routine</td><td>05/11/2020 5:43 PM EST</td><td></td><td> </td> 05/11/2020 05:43:00 PM [facility] HEPATITIS B CORE ANTIBODY HBCAB IGM ANTIBODY <td>HEPAT ITIS B CORE ANTIBODY, IGM</td><td>Routine</td><td>05/11/2020 4:35 PM EST</td><td></td><td> </td> 05/11/2020 04:35:00 PM [facility] HEPATITIS B CORE ANTIBODY HBCAB TOTAL <td>HEPATITIS B CORE ANTIBODY, TOTAL</td><td>Routine</td><td>05/11/2020 4:35 PM EST</td><td></td><td> </td> 05/11/2020 04:35:00 PM [facility] HEPATITIS B SURF ANTIBODY HBSAB <td>HEPATITIS B SURFAC E ANTIBODY</td><td>Routine</td><td>05/11/2020 4:35 PM EST</td><td></td><td> </td> 05/11/2020 04:35:00 PM [facility] IAAD EIA HEPATITIS B SURFACE ANTIGEN <td>HEPATITIS B S URFACE ANTIGEN</td><td>Routine</td><td>05/11/2020 4:35 PM EST</td><td></td><td> </td> 05/11/2020 04:35:00 PM [facility] THROMBOPLASTIN TIME PARTIAL PLASMA/WHOLE BLOOD <td>PAR TIAL THROMBOPLASTIN TIME (PTT)</td><td>Routine</td><td>05/11/2020 4:34 PM EST</td><td></td><td> </td> 05/11/2020 04:34:00 PM [facility] CLOTTING FACTOR X ABBY-FEDERICO <td>FACTOR 10 ASSAY LEVEL</td><td>Routine</td><td>05/11/2020 4:34 PM EST</td><td></td><td> </td> 05/11/2020 04:34:00 PM [facility] BLOOD COUNT COMPLETE AUTO&AUTO DIFRNTL WBC COUNT <td>C BC AND DIFFERENTIAL</td><td>Routine</td><td>05/11/2020 4:34 PM EST</td><td></td><td> </td> 05/11/2020 04:34:00 PM [facility] TROPONIN QUANTITATIVE <td>TROPONIN T</td><td>Timed </td><td>05/11/2020 4:34 PM EST</td><td></td><td> </td> 05/11/2020 04:34:00 PM [facility] MAGNESIUM <td>MAGNESIUM LEVEL</td><td> Routine</td><td>05/11/2020 4:34 PM EST</td><td></td><td> </td> 05/11/2020 04:34:00 PM [facility] BASIC METABOLIC PANEL CALCIUM TOTAL <td>BASIC METABOLI C PANEL</td><td>Routine</td><td>05/11/2020 4:34 PM EST</td><td></td><td> </td> 05/11/2020 04:34:00 PM [facility] EKG 12-LEAD - CMAXX REPORT <td>EKG 12-LEAD - CMAXX REPORT</td><td></td><td>05/11/2020 3:47 PM EST</td><td></td><td></td> 05/11/2020 03:47:19 PM [facility] EKG 12-LEAD - CMAXX REPORT <td>EKG 12-LEAD - CMAXX REPORT</td><td></td><td>05/11/2020 3:47 PM EST</td><td></td><td></td> 05/11/2020 03:47:19 PM [facility] EKG 12-LEAD <td>EKG 12-LEAD</td><td>Rout ine</td><td>05/11/2020 3:47 PM EST</td><td></td><td> </td> 05/11/2020 03:47:19 PM [facility] EKG 12-LEAD - CMAXX REPORT <td>EKG 12-LEAD - CMAXX REPORT</td><td></td><td>05/11/2020 3:46 PM EST</td><td></td><td></td> 05/11/2020 03:46:38 PM [facility] EKG 12-LEAD - CMAXX REPORT <td>EKG 12-LEAD - CMAXX REPORT</td><td></td><td>05/11/2020 3:46 PM EST</td><td></td><td></td> 05/11/2020 03:46:38 PM [facility] EKG 12-LEAD <td>EKG 12-LEAD</td><td>Rout ine</td><td>05/11/2020 3:46 PM EST</td><td></td><td></td> 05/11/2020 03:46:38 PM EST [facility] EKG 12-LEAD <td>EKG 12-LEAD</td><td>Rout ine</td><td>05/11/2020 3:46 PM EST</td><td></td><td> </td> 05/11/2020 03:46:38 PM [facility] Pare Hyperkeratotic Lesion, Single 05/08/2020 12:00:00 AM EST [facility] ([facility]) Debridement Nails Any Method 6 Or More 05/08/2020 12:0 0:00 AM EST [facility] ([facility]) ECG ROUTINE ECG W/LEAST 12 LDS W/I&R 05/01/2020 12:00: 00 AM EST [facility] ([facility]) OFFICE OUTPATIENT VISIT 25 MINUTES 05/01/2020 12:00:00 AM EST [facility] ([facility]) Dialysis Circuit W/ Transluminal Balloon Angioplasty, Periph eral 01/19/2020 12:00:00 AM EST [facility] ([facility]) Moderate Sedation Services; Same Phys Intl 15 Mins; PT >= 5 Years 01/19/2020 12:00:00 AM EST [facility] ([facility]) MYOCARDIAL SPECT MULTIPLE STUDIES 11/27/2019 12:00:00 AM EDT [facility] ([facility]) CV STRS TST XERS&/OR RX CONT ECG PHYS SI&R 11/27/2019 12:00:00 AM EDT [facility] ([facility]) Results ID Date Data Source [id number] 10/29/2020 01:54:00 PM EDT [facility] ([facility]) Name Value Range Interpretation Code Description Data Tere rce(s) Supporting Document(s) White Blood Count 3.7 4.0-10.0 [facility] ([facility]) Hemoglobin 10.2 13.5-17.5 [facility] ([facility]) Red Blood Count 3.36 4.30-6.10 [facility] ([facility]) Platelets 174 150-450 [facility] ([facility]) Hematocrit 31.8 42.0-52.0 [facility] ([facility]) ID Date Data Source [id number] 10/29/2020 01:54:00 PM EDT [facility] ([facility]) Name Value Range Interpretation Code Description Data Tere rce(s) Supporting Document(s) Magnesium Level 1.8 1.8-2.4 [facility] ([facility]) ID Date Data Source [id number] 10/29/2020 01:54:00 PM EDT [facility] ([facility]) Name Value Range Interpretation Code Description Data Tere rce(s) Supporting Document(s) Albumin [Mass/volume] in Serum or Plasma 3.0 [facility] ([facility]) Calcium [Mass/volume] in Serum or Plasma 8.4 [facility] ([facility]) Alanine aminotransferase [Enzymatic activity/volume] in Serum or Pl asma 18 [facility] ([facility]) Chloride [Moles/volume] in Serum or Plasma 105 [facility] ([facility]) Carbon dioxide, total [Moles/volume] in Serum or Plasma 8.4 [facility] ([facility]) Protein [Mass/volume] in Serum or Plasma 5.9 [facility] ([facility]) Potassium [Moles/volume] in Serum or Plasma 4.6 [facility] ([facility]) Alkaline phosphatase [Enzymatic activity/volume] in Serum or Plasma 9 7 [facility] ([facility]) Sodium 138 [facility] Aspartate aminotransferase [Enzymatic activity/volume] in Serum or Plasma 11 [facility] ([facility]) Glucose 179 70-100 [facility] ([facility] Urea nitrogen [Mass/volume] in Serum or Plasma 68 [facility] ([facility]) Creatinine For GFR 5.45 [facility] ([facility]) ID Date Data Source [id number] 10/25/2020 01:44:00 PM EDT [facility] ([facility]) Name Value Range Interpretation Code Description Data Tere rce(s) Supporting Document(s) Magnesium Level 1.9 [facility] ([facility]) ID Date Data Source [id number] 10/25/2020 01:44:00 PM EDT [facility] ([facility]) Name Value Range Interpretation Code Description Data Tere rce(s) Supporting Document(s) Albumin [Mass/volume] in Serum or Plasma 3.1 [facility] ([facility]) Alanine aminotransferase [Enzymatic activity/volume] in Serum or Pl asma 21 [facility] ([facility]) Carbon dioxide, total [Moles/volume] in Serum or Plasma 26 [facility] ([facility]) Calcium [Mass/volume] in Serum or Plasma 9.2 [facility] ([facility]) Chloride [Moles/volume] in Serum or Plasma 107 [facility] ([facility]) Alkaline phosphatase [Enzymatic activity/volume] in Serum or Plasma 9 5 [facility] ([facility]) Potassium [Moles/volume] in Serum or Plasma 4.4 [facility] ([facility]) Sodium 140 [facility] ([facility] Protein [Mass/volume] in Serum or Plasma 6.6 [facility] ([facility]) Urea nitrogen [Mass/volume] in Serum or Plasma 29 [facility] ([facility]) Aspartate aminotransferase [Enzymatic activity/volume] in Serum or Plasma 11 [facility] ([facility]) Glucose 183 70-100 [facility] ([facility] Creatinine For GFR 3.06 [facility] ([facility]) ID Date Data Source [id number] 10/25/2020 01:44:00 PM EDT [facility] ([facility]) Name Value Range Interpretation Code Description Data Tere rce(s) Supporting Document(s) White Blood Count 3.3 4.0-10.0 [facility] ([facility]) Red Blood Count 3.36 4.30-6.10 [facility] ([facility]) Platelets 142 150-450 [facility] ([facility] Hematocrit 32.2 42.0-52.0 [facility] ([facility]) Hemoglobin 10.2 13.5-17.5 [facility] ([facility]) ID Date Data Source [id number] 10/23/2020 10:52:00 AM EDT [facility] Name Value Range Interpretation Code Description Data Tere rce(s) Supporting Document(s) Albumin [Mass/volume] in Serum or Plasma 3.1 [facility] ([facility]) Calcium [Mass/volume] in Serum or Plasma 8.8 [facility] ([facility]) Alanine aminotransferase [Enzymatic activity/volume] in Serum or Pl asma 19 [facility] ([facility]) Chloride [Moles/volume] in Serum or Plasma 106 [facility] ([facility]) Carbon dioxide, total [Moles/volume] in Serum or Plasma 27 [facility] ([facility]) Potassium [Moles/volume] in Serum or Plasma 4.7 [facility] ([facility]) Alkaline phosphatase [Enzymatic activity/volume] in Serum or Plasma 6 8 [facility] ([facility]) Protein [Mass/volume] in Serum or Plasma 5.8 [facility] ([facility]) Sodium 140 [facility] ([facility] Aspartate aminotransferase [Enzymatic activity/volume] in Serum or Plasma 11 [facility] ([facility]) Urea nitrogen [Mass/volume] in Serum or Plasma 83 [facility] ([facility]) Glucose 118 83-110 [facility] ([facility] Creatinine For GFR 4.78 [facility] ([facility]) ID Date Data Source [id number] 10/23/2020 10:52:00 AM EDT [facility] Name Value Range Interpretation Code Description Data Tere rce(s) Supporting Document(s) White Blood Count 4.3 5.0-10.0 [facility] ([facility]) Red Blood Count 3.28 4.00-5.40 [facility] ([facility]) Platelets 133 172-450 [facility] Hemoglobin 9.9 [facility] ([facility]) Hematocrit 31.3 [facility] ([facility]) ID Date Data Source [id number] 10/22/2020 05:05:00 PM EDT [facility] Name Value Range Interpretation Code Description Data Tere rce(s) Supporting Document(s) SARS coronavirus 2 RNA [Presence] in Res piratory specimen by MARI with probe detection NEGATIVE [facility] This lab was ordered by [facility] a nd reported by [facility]. ID Date Data Source [id number] 10/22/2020 02:12:00 PM EDT [facility] ([facility] Name Value Range Interpretation Code Description Data Tere rce(s) Supporting Document(s) CPK Creatine Phosphokinase 43 U/L 39-308 Jessica l (applies to non-numeric results) [facility] ([facility] ) CK-MB Value Mass Laboratory test result Normal ( applies to non-numeric results) [facility] ([facility] ) MB/CK Relative Index 2.33 Normal (applies to non-num milena results) [facility] <content>DIAGNOSIS CRITERIA</content>
<content>MMB ng/ml Relative Index (RI)</content>
<content>NON-AMI < or = 5 N/A</content>
<content>LANE ZONE > 5 < or = 4</content>
<content>AMI > 5 > 4</content>
<content></content> Troponin I 0.10 ng/mL Normal (applies to non-numeric resul ts) [facility] <content>Troponin I Reference Interval f or [employer] [place] LOCI:</content>
<content></content>
<content>99th Percentile= 0.00-0.045 ng/ml</content>
<content></content>
<content>Risk Stratification:</content>
<content><= 0.10 ng/ml Decreased Risk for Adverse Clinical</content>
<content>Events.</content>
<content>0.10-1.50 ng/ml Increased Risk for Adverse Clinical</content>
<content>Events. Evaluation of additional</content>
<content>criterion and/or repeat testing in 2-6</content>
<content>hours is suggested to rule out myocardial</content>
<content>damage.</content>
<content>>= 1.50 ng/ml Indicative of Myocardial Injury.</content>
<content></content> ID Date Data Source [id number] 10/22/2020 01:44:00 PM EDT [facility] Name Value Range Interpretation Code Description Data Tere rce(s) Supporting Document(s) Glucose [Mass/volume] in Capillary blood by Glucometer 146 mg/dL 83-110 Above high normal [facility] ([facility] ) ID Date Data Source [id number] 10/22/2020 12:17:00 PM EDT [facility] ([facility] Name [...] Little GFR Left</content>
<content>ESRD GFR <15 on CHIMNEY SWEEPER</content>
<content></content> Creatinine For GFR 4.56 mg/dL 0.70-1.30 Above high normal MEDENT ([facility] Sodium Level 140 meq/L 136-145 Normal (applies to non-numeric res ults) [facility] ([facility] Potassium Serum 4.4 meq/L 3.5-5.1 Normal (applies to non-numeric results) [facility] Chloride Level 105 meq/L 98-107 Normal (applies to non-numeric r esults) MEDENT ([facility] Anion Gap 7 meq/L 8-16 Below low normal MED[facility] ( [facility] Carbon Dioxide Level 28 meq/L 21-32 Normal (applies to non-num milena results) MED[facility] ([facility] Calcium Level 8.8 mg/dL 8.8-10.2 Normal (applies to non-numeric re sults) [facility] ID Date Data Source [id number] 10/22/2020 12:17:00 PM EDT MEDENT ([facility] Name Value Range Interpretation Code Description Data Tere rce(s) Supporting Document(s) Ast/Sgot 11 U/L 7-37 Normal (applies to non-numeric resul ts) MED[facility] ([facility] Alt/SGPT 21 U/L 12-78 Normal (applies to non-numeric resul ts) [facility] ([facility] Alkaline Phosphatase 77 U/L 45-117 Normal (applies to non-num milena results) MED[facility] ([facility] Bilirubin,Total 0.6 mg/dL 0.2-1.0 Normal (applies to non-numeric results) MED[facility] ([facility] Bilirubin,Direct 0.2 mg/dL 0.0-0.2 Normal (applies to non-numeric results) [facility] ([facility] Albumin 3.2 GM/DL 3.2-5.2 Normal (applies to non-numeric resul ts) MED[facility] ([facility] Total Protein 6.3 GM/DL 6.4-8.2 Below low normal MEDEN T ([facility] Albumin/Globulin Ratio 1.0 Normal (applies to non-n umeric results) [facility] ([facility] ID Date Data Source [id number] 10/22/2020 12:17:00 PM EDT MEDENT ([facility] Name Value Range Interpretation Code Description Data Tere rce(s) Supporting Document(s) CPK Creatine Phosphokinase 36 U/L 39-308 Below low normal MED[facility] ([facility] CK-MB Value Mass 1.8 ng/mL Normal (applies to non-numeric results) [facility] ([facility] Troponin I 0.11 ng/mL Above high normal [facility] ([facility] <content>Troponin I Reference Interval f or Siemens [place] LOCI:</content>
<content></content>
<content>99th Percentile= 0.00-0.045 ng/ml</content>
<content></content>
<content>Risk Stratification:</content>
<content><= 0.10 ng/ml Decreased Risk for Adverse Clinical</content>
<content>Events.</content>
<content>0.10-1.50 ng/ml Increased Risk for Adverse Clinical</content>
<content>Events. Evaluation of additional</content>
<content>criterion and/or repeat testing in 2-6</content>
<content>hours is suggested to rule out myocardial</content>
<content>damage.</content>
<content>>= 1.50 ng/ml Indicative of Myocardial Injury.</content>
<content></content> MB/CK Relative Index 5.00 Above high normal MEDENT ([facility] <content>DIAGNOSIS CRITERIA</content>
<content>MMB ng/ml Relative Index (RI)</content>
<content>NON-AMI < or = 5 N/A</content>
<content>LANE ZONE > 5 < or = 4</content>
<content>AMI > 5 > 4</content>
<content></content> ID Date Data Source [id number] 10/22/2020 12:17:00 PM EDT MEDENT ([facility] Name Value Range Interpretation Code Description Data Tere rce(s) Supporting Document(s) White Blood Count 3.8 10 4.0-10.0 Below low normal M EDENT ([facility] Red Blood Count 3.25 10 4.30-6.10 Below low normal [facility] ([facility] Hemoglobin 10.0 g/dL 13.5-17.5 Below low normal MEDENT ( [facility] Hematocrit 31.0 % 42.0-52.0 Below low normal MED[facility] ( [facility] Mean Corpuscular Volume 95.4 fl 80.0-96.0 Normal ( applies to non-numeric results) MEDENT ([facility] ) Mean Corpuscular Hemoglobin 30.8 pg 27.0-33.0 Norm al (applies to non-numeric results) MED[facility] ([facility] ) Mean Corpuscular HGB Conc 32.3 g/dL 32.0-36.5 Normal (applies to non-numeric results) MED[facility] ([facility] ) Red Cell Distribution Width 14.2 % 11.5-14.5 Norm al (applies to non-numeric results) MED[facility] ([facility] ) Platelet Count, Automated 135 10 150-450 Below low normal MED[facility] ([facility] Neutrophils % 82.8 % 36.0-66.0 Above high normal MEDE NT ([facility] Lymph % 7.0 % 24.0-44.0 Below low normal MEDENT ( [facility] Eos % 2.6 % 0.0-3.0 Normal (applies to non-numeric resul ts) MED[facility] ([facility] Gaines % 6.8 % 2.0-8.0 Normal (applies to non-numeric resul ts) [facility] ([facility] Immature Granulocyte % 0.3 % 0-3.0 Normal (applies to non-n umeric results) MED[facility] ([facility] Baso % 0.5 % 0.0-1.0 Normal (applies to non-numeric resul ts) MED[facility] ([facility] Nucleated Red Blood Cell % 0.0 % 0-0 Normal (applies to n on-numeric results) MED[facility] ([facility] Neutrophils # 3.2 10 1.5-8.5 Normal (applies to non-numeric re sults) MED[facility] ([facility] Lymph # 0.3 10 1.5-5.0 Below low normal MED[facility] ( [facility] Gaines # 0.3 10 0.0-0.8 Normal (applies to non-numeric resul ts) MED[facility] ([facility] Baso # 0.0 10 0.0-0.2 Normal (applies to non-numeric resul ts) [facility] ([facility] Eos # 0.1 10 0.0-0.5 Normal (applies to non-numeric resul ts) MED[facility] ([facility] ID Date Data Source [id number] 10/22/2020 12:17:00 PM EDT MEDENT ([facility] Name Value Range Interpretation Code Description Data Tere rce(s) Supporting Document(s) Thyrotropin [Units/volume] in Serum or Plasma 2.700 uIU/ML 0. 358-3.740 Normal (applies to non-numeric results) [facility] ([facility] Lipoprotein lipase [Enzymatic activity/volume] in Serum or P lasma 117 U/L 73-393 Normal (applies to non-numeric results) MED[facility] ([facility] Thyroxine (T4) free [Mass/volume] in Serum or Plasma 1.05 ng/dL 0.76-1.46 Normal (applies to non-numeric results) [facility] Natriuretic peptide.B prohormone N-Terminal [Mass/volu me] in Serum or Plasma 7290 pg/mL Above high normal MED[facility] ([facility] ID Date Data Source [id number] 10/22/2020 10:45:00 AM EDT MEDENT ([facility]) Name Value Range Interpretation Code Description Data Tere rce(s) Supporting Document(s) Thyroid Stimulating Hormone 2.700 ME DENT ([facility]) Free T4 1.05 [facility] ([facility]) ID Date Data Source [id number] 10/22/2020 10:45:00 AM EDT MEDENT ([facility]) Name Value Range Interpretation Code Description Data Tere rce(s) Supporting Document(s) Albumin [Mass/volume] in Serum or Plasma 3.2 MED[facility] ([facility]) Calcium [Mass/volume] in Serum or Plasma 8.8 MED[facility] ([facility]) Alanine aminotransferase [Enzymatic activity/volume] in Serum or Pl asma 21 MEDENT ([facility]) Carbon dioxide, total [Moles/volume] in Serum or Plasma 28 MEDENT ([facility]) Chloride [Moles/volume] in Serum or Plasma 105 MEDENT ([facility]) Alkaline phosphatase [Enzymatic activity/volume] in Serum or Plasma 7 7 [facility] ([facility]) Potassium [Moles/volume] in Serum or Plasma 4.4 MEDENT ([facility]) Protein [Mass/volume] in Serum or Plasma 6.3 MEDENT ([facility]) Sodium 140 MEDENT ([facility]) Aspartate aminotransferase [Enzymatic activity/volume] in Serum or Plasma 11 MEDENT ([facility]) Urea nitrogen [Mass/volume] in Serum or Plasma 80 [facility] ([facility]) Glucose 156 83-110 MED[facility] ([facility]) Creatinine For GFR 4.56 MED[facility] ([facility]) ID Date Data Source [id number] 10/22/2020 10:45:00 AM EDT MEDENT ([facility]) Name Value Range Interpretation Code Description Data Tere rce(s) Supporting Document(s) White Blood Count 3.8 5.0-10.0 MEDENT ([facility]) Red Blood Count 3.25 4.00-5.40 MED[facility] ([facility]) Platelets 135 172-450 MEDENT ([facility]) Hematocrit 31.0 MED[facility] ([facility]) Hemoglobin 10.0 [facility] ([facility]) ID Date Data Source [id number] 07/12/2020 02:45:00 PM EDT MEDENT (Famil y [...] by Automated count 32.3 g/dL 31.5-35.7 MEDENT ([facility] Erythrocyte mean [...] Automated count Laboratory test result [facility] ([facility] Morphology [Interpretation] in Blood Narrative Laboratory test result TONY ([facility] ID Date Data Source [id number] 07/12/2020 02:45:00 PM EDT [facility] ([facility] Name Value Range Interpretation Code Description Data Tere rce(s) Supporting Document(s) Glu 164 mg/dL 70-110 Above high normal MEDSHAYAN ([facility] CHRONIC KIDNEY DISEASE STAGING [...] 51 mg/dL 8-23 Above high normal [facility] ([facility] CHRONIC KIDNEY DISEASE STAGING PER [...] 3.3 mg/dL 0.7-1.2 Above high normal MED[facility] ([facility] CHRONIC KIDNEY DISEASE [...] mL/min Normal BUN/Creatinine Ratio 15.1 Calc MEDENT ([facility] CHRONIC KIDNEY [...] mL/min Normal Na 139 mmol/L 136-145 [facility] CHRONIC KIDNEY DISEASE STAGING PER [...] mL/min Normal K 3.9 mmol/L 3.5-5.1 [facility] CHRONIC KIDNEY DISEASE STAGING PER [...] mL/min Normal CL 99.4 mmol/L 98.0-107.0 MEDENT ([facility] CHRONIC KIDNEY DISEASE STAGING [...] mL/min Normal Co2 24.3 mmol/L 22.0-29.0 MEDENT ([facility] CHRONIC KIDNEY DISEASE [...] mL/min Normal CA 9.5 mg/dL 8.6-10.2 [facility] CHRONIC KIDNEY DISEASE [...] mL/min Normal Alb 4.1 g/dL 3.5-5.2 MED[facility] ([facility] CHRONIC KIDNEY [...] >32 mL/min Normal Globulin 2.2 Calc MEDENT ([facility] CHRONIC KIDNEY [...] Normal Alt (SGPT) 17 U/L 0-41 [facility] ([facility] CHRONIC KIDNEY DISEASE [...] mL/min Normal Alp 94.2 U/L 40-129 MEDENT ([facility] CHRONIC KIDNEY DISEASE STAGING [...] Normal Ast (Sgot) 16 U/L 0-40 MEDENT ([facility] CHRONIC KIDNEY [...] mL/min Normal Tbili 0.63 mg/dL 0.0-1.2 MED[facility] ([facility] CHRONIC KIDNEY [...] mL/min Normal Anion Gap 19 mmol/L [facility] CHRONIC KIDNEY DISEASE [...] and above >32 mL/min Normal eGFR Non-Afr. [place] 17 # MED[facility] ([facility] [...] >32 mL/min Normal ID Date Data Source [id number] 07/10/2020 03:26:00 PM EDT TONY ([facility]) Name Value Range Interpretation Code Description Data Tere rce(s) Supporting Document(s) Hemoglobin 11.0 14.0-18.0 TONY ([facility]) Hematocrit 35.0 42.0-52.0 TONY ([facility]) ID Date Data Source [id number] 07/10/2020 03:26:00 PM EDT MEDENT ([facility]) Name Value Range Interpretation Code Description Data Tere rce(s) Supporting Document(s) Potassium 3.9 3.5-5.1 MEDENT ([facility]) ID Date Data Source [id number] 07/06/2020 03:27:00 PM EDT MEDENT ([facility]) Name Value Range Interpretation Code Description Data Tere rce(s) Supporting Document(s) Potassium 3.8 3.5-5.1 MEDENT ([facility]) ID Date Data Source [id number] 07/06/2020 03:27:00 PM EDT [facility] Name Value Range Interpretation Code Description Data Tere rce(s) Supporting Document(s) Hemoglobin 10.7 14.0-18.0 MED[facility] ([facility]) Hematocrit 32.9 42.0-52.0 MED[facility] ([facility]) ID Date Data Source [id number] 06/29/2020 03:35:00 PM EDT MED[facility] ([facility] Name Value Range Interpretation Code Description Data Tere rce(s) Supporting Document(s) Alkaline phosphatase [Enzymatic activity/volume] in Serum or Plasma 1 10 MED[facility] ([facility]) Total Protein 6.6 MEDENT ([facility]) ID Date Data Source [id number] 06/29/2020 03:35:00 PM EDT MEDENT ([facility]) Name Value Range Interpretation Code Description Data Tere rce(s) Supporting Document(s) Iron 51 MEDENT ([facility]) Iron binding capacity [Mass/volume] in Serum or Plasma 251 MED[facility] ([facility]) Tibc % Saturation 20 [facility] ([facility]) ID Date Data Source [id number] 06/29/2020 03:35:00 PM EDT MEDENT ([facility]) Name Value Range Interpretation Code Description Data Tere rce(s) Supporting Document(s) Ferritin [Mass/volume] in Serum or Plasma 727 22-322 MED[facility] ([facility]) ID Date Data Source [id number] 06/29/2020 03:35:00 PM EDT MEDENT ([facility]) Name Value Range Interpretation Code Description Data Tere rce(s) Supporting Document(s) Misc 586 16-80 [facility] ID Date Data Source [id number] 06/29/2020 03:35:00 PM EDT MEDENT ([facility]) Name Value Range Interpretation Code Description Data Tere rce(s) Supporting Document(s) Uric Acid 5.8 MEDENT ([facility]) ID Date Data Source [id number] 06/29/2020 03:35:00 PM EDT MED[facility] ([facility] Name Value Range Interpretation Code Description Data Tere rce(s) Supporting Document(s) Glucose Laboratory test result MEDENT ([facility]) Blood Urea Nitrogen 90 MEDENT ([facility]di[facility]) Glomerular filtration rate/1.73 sq M.pre dicted [Volume Rate/Area] in Serum or Plasma by Creatinine-based formula (MDRD) Laboratory test result MEDENT ([facility]) Creatinine 5.72 MED[facility] ([facility]) Sodium 137 [facility] Potassium Laboratory test result MEDENT ([facility]) Chloride Laboratory test result MEDENT ([facility]) Carbon Dioxide 22 MEDENT ([facility]iol [facility]gy [facility]) Calcium 9.6 MED[facility] ([facility]) Phosphorus Laboratory test result MEDENT ([facility]) Albumin Laboratory test result MEDENT ([facility]) ID Date Data Source [id number] 06/29/2020 03:35:00 PM EDT MEDENT ([facility]) Name Value Range Interpretation Code Description Data Tere rce(s) Supporting Document(s) Platelets Laboratory test result MEDENT ([facility]) Red Blood Count 11.9 MED[facility] ([facility]io [facility]) White Blood Count 3.76 MED[facility] ([facility]) Hematocrit 36.4 MED[facility] ([facility]) Hemoglobin 11.9 [facility] ([facility]) ID Date Data Source [id number] 06/17/2020 11:26:00 PM EDT [facility] Name Value Range Interpretation Code Description Data Tere rce(s) Supporting Document(s) SARS coronavirus 2 RNA [Presence] in Res piratory specimen by MARI with probe detection NEGATIVE [facility] This lab was ordered by [facility] a nd reported by [facility]. ID Date Data Source [id number] 06/17/2020 08:43:00 PM EDT MEDENT ([facility] Name Value Range Interpretation Code Description Data Tere rce(s) Supporting Document(s) Red Blood Count 3.59 10 4.30-6.10 Below low normal MED E[facility] ([facility] White Blood Count 4.2 10 4.0-10.0 Normal (applies to non-numeri c results) MEDENT ([facility] Hematocrit 36.6 % 42.0-52.0 Below low normal MEDENT ( [facility] Hemoglobin 11.3 g/dL 13.5-17.5 Below low normal MED[facility] ( [facility] Mean Corpuscular Volume 101.9 fl 80.0-96.0 Above high normal [facility] ([facility] Mean Corpuscular Hemoglobin 31.5 pg 27.0-33.0 Norm al (applies to non-numeric results) MED[facility] ([facility] ) Mean Corpuscular HGB Conc 30.9 g/dL 32.0-36.5 Below low normal [facility] ([facility] Red Cell Distribution Width 14.6 % 11.5-14.5 Above high normal MED[facility] ([facility] Neutrophils % 68.3 % 36.0-66.0 Above high normal MEDE NT ([facility] Platelet Count, Automated 123 10 150-450 Below low normal MED[facility] ([facility] Lymph % 15.6 % 24.0-44.0 Below low normal MED[facility] ( [facility] Gaines % 12.7 % 2.0-8.0 Above high normal MED[facility] ([facility] Eos % 2.2 % 0.0-3.0 Normal (applies to non-numeric resul ts) [facility] ([facility] Baso % 0.7 % 0.0-1.0 Normal (applies to non-numeric resul ts) MED[facility] ([facility] Immature Granulocyte % 0.5 % 0-3.0 Normal (applies to non-n umeric results) [facility] ([facility] Nucleated Red Blood Cell % 0.0 % 0-0 Normal (applies to n on-numeric results) MED[facility] ([facility] Neutrophils # 2.9 10 1.5-8.5 Normal (applies to non-numeric re sults) [facility] ([facility] Gaines # 0.5 10 0.0-0.8 Normal (applies to non-numeric resul ts) [facility] ([facility] Lymph # 0.7 10 1.5-5.0 Below low normal MED[facility] ( [facility] Eos # 0.1 10 0.0-0.5 Normal (applies to non-numeric resul ts) [facility] ([facility] Baso # 0.0 10 0.0-0.2 Normal (applies to non-numeric resul ts) [facility] ([facility] ID Date Data Source [id number] 06/03/2020 03:35:00 PM EDT MEDENT ([facility]) Name Value Range Interpretation Code Description Data Tere rce(s) Supporting Document(s) Calcium [Mass/volume] in Serum or Plasma 9.8 MED[facility] ([facility]) Sodium 139 MEDENT ([facility] Carbon dioxide, total [Moles/volume] in Serum or Plasma 26 [facility] ([facility] Chloride [Moles/volume] in Serum or Plasma 99 MED[facility] ([facility]) Glucose 113 70-99 MED[facility] ([facility]) Potassium [Moles/volume] in Serum or Plasma 3.5 [facility] ([facility]) Creatinine 5.21 0.80-1.30 MED[facility] ([facility]) Blood Urea Nitrogen 79 7-24 MED[facility] ([facility]di[facility]) Glomerular filtration rate/1.73 sq M.pre dicted [Volume Rate/Area] in Serum or Plasma by Creatinine-based formula (MDRD) 11 MEDENT ([facility]) ID Date Data Source [id number] 06/03/2020 03:35:00 PM EDT MEDENT ([facility]i [facility]) Name Value Range Interpretation Code Description Data Tere rce(s) Supporting Document(s) Magnesium Level 1.8 MEDENT ([facility]io [facility]) ID Date Data Source [id number] 06/03/2020 03:35:00 PM EDT MEDENT ([facility]i [facility]) Name Value Range Interpretation Code Description Data Tere rce(s) Supporting Document(s) White Blood Count 5.1 4.1-11.0 MED[facility] ([facility]) Platelets 158 150-450 MED[facility] ([facility]) Red Blood Count 3.21 4.60-6.10 MED[facility] ([facility]io [facility]y [facility]) Hemoglobin 10.5 13.5-18.0 MED[facility] ([facility]) Hematocrit 30.3 41.0-53.0 MED[facility] ([facility]) ID Date Data Source [id number] 06/03/2020 11:18:07 AM EDT Laboratory Al liance [...] - CORE MPV 9.5 fL (7.1-10.7) [facility] [place] [facility] - CORE NEUT % 69.9 % (35.0-75.0) [facility] [facility] LYMPH % 16.4 % (16.0-52.0) [facility] - CORE MONO % 9.8 % (0.0-8.0) H [facility] [place] [facility] - CORE EOS % 2.7 % (0.0-5.0) [facility] [place] [facility] - CORE BASO % 1.2 % (0.0-4.0) [facility] [place] [facility] - CORE NEUT # 3.6 10*3/uL (1.8-7.7) [facility] - CORE LYMPH # 0.8 10*3/uL (1.2-4.8) L [facility] - CORE MONO # 0.5 10*3/uL (0.0-0.8) [facility] [place] [facility] Eosinophils [#/volume] in Blood by Automated count 0.1 10*3/uL (0.0-0 .5) [facility] [place] [facility] - CORE BASO # 0.1 10*3/uL (0.0-0.2) [facility] ID Date Data Source [id number] 06/03/2020 12:38:05 PM EDT [facility] [facility] Name Value Range Interpretation Code Description Data Tere rce(s) Supporting Document(s) MAGNESIUM 1.8 mg/dL (1.7-2.4) [facility] [place] [facility] [place] - CORE ID Date Data Source [id number] 06/03/2020 03:29:31 PM EDT [facility] [facility] [place] - CORE Name Value Range Interpretation Code Description Data Tere rce(s) Supporting Document(s) SODIUM 139 mmol/L (136-145) [facility] [place] [facility] [employer] [place] - [facility] POTASSIUM 3.5 mmol/L (3.6-5.2) L [facility] [place] of [place] - CORE CHLORIDE 99 mmol/L (100-108) L [facility] [place] [facility] - CORE CO2 26 mmol/L (22-31) [facility] [place] [facility] [place] - CORE ANION GAP 14 mmol/L (7-16) [facility] [place] [facility] - CORE UREA NITROGEN 79 mg/dL (7-24) Laboratory [facility] [place] - CORE RESULT VERIFIED BY REPEAT TESTING.RESULT (S) CALLED TO [facility] [place] [phone] ON [id number] AT 1527 [place] [id number] CREATININE 5.21 mg/dL (0.80-1.30) [facility] [employer] [place] - CORE RESULT VERIFIED BY REPEAT TESTING.RESULT (S) CALLED TO AND READ BACK BYR[facility] AT [phone] ON [id number] AT 1527 BY [id number] BUN/CREAT RATIO 15.2 RATIO (10.0-20.0) [facility] [place] [facility] - CORE GLUCOSE 113 mg/dL (70-99) H [facility] [place] [facility] - CORE CALCIUM 9.8 mg/dL (8.4-10.2) [facility] [place] [facility] - CORE GFR 11 ml/min/1.73m2 (>59) L [facility] [place] of [employer] [place] - CORE GFR ( AMER) 13 ml/min/1.73m2 (>59) [facility] [employer] [place] - CORE GFR INTERPRETATION [facility] [place] [employer] CORE --NORMAL KIDNEY FUNCTION OR MILD DISEASE - GFR >OR= 60CHRONIC KIDNEY DISEASE - GFR 15 - 59RENAL FAILURE - GFR <15 Est. GFR calculation based on the MDRDstudy equation, which assumes a steadystate for creatinine. Est. GFR should notbe used for medication dosing. ID Date Data Source [id number] 05/31/2020 12:00:00 AM EDT [facility] Name Value Range Interpretation Code Description Data Tere rce(s) Supporting Document(s) SARS coronavirus 2 Ag Negative [facility] This lab was ordered by [facility] and reported by [facility]. ID Date Data Source [id number] 05/30/2020 10:26:48 AM EDT Laboratory [facility] [...] - CORE MPV 9.4 fL (7.1-10.7) [facility] [place] [facility] - CORE NEUT % 70.1 % (35.0-75.0) [facility] - CORE LYMPH % 16.7 % (16.0-52.0) [facility] [place] - CORE MONO % 10.2 % (0.0-8.0) H [facility] [place] [facility] [place] - CORE EOS % 2.2 % (0.0-5.0) [facility] [place] [facility] - CORE BASO % 0.8 % (0.0-4.0) [facility] [place] [facility] - CORE NEUT # 3.7 10*3/uL (1.8-7.7) [facility] - CORE LYMPH # 0.9 10*3/uL (1.2-4.8) L [facility] - CORE MONO # 0.5 10*3/uL (0.0-0.8) Laboratory [facility] of [place] - CORE Eosinophils [#/volume] in Blood by Automated count 0.1 10*3/uL (0.0-0 .5) [facility] [place] [facility] [place] - CORE BASO # 0.0 10*3/uL (0.0-0.2) Laboratory [facility] of [place] - CORE ID Date Data Source [id number] 05/30/2020 11:32:55 AM EDT [facility] [place] [facility] [employer] [place] - CORE Name Value Range Interpretation Code Description Data Tere rce(s) Supporting Document(s) SODIUM 141 mmol/L (136-145) [facility] [place] [facility] [employer] [place] - CORE POTASSIUM 3.6 mmol/L (3.6-5.2) [facility] [place] [facility] [employer] [place] - CORE CHLORIDE 99 mmol/L (100-108) L [facility] [place] of [employer] [place] - CORE CO2 33 mmol/L (22-31) H [facility] [place] of [employer] [place] - CORE ANION GAP 9 mmol/L (7-16) [facility] [place] [facility] [employer] [place] - CORE UREA NITROGEN 64 mg/dL (7-24) H [facility] [place] - CORE CREATININE 5.02 mg/dL (0.80-1.30) HH [facility] [place] - CORE RESULT VERIFIED BY REPEAT TESTING.CONSIS TENT WITH PREVIOUS RESULTS BUN/CREAT RATIO 12.7 RATIO (10.0-20.0) [facility] [place] [facility] [employer] [place] - CORE GLUCOSE 131 mg/dL (70-99) H [facility] [place] of [employer] [place] - CORE CALCIUM 9.9 mg/dL (8.4-10.2) [facility] [place] of [employer] [place] - CORE GFR 11 ml/min/1.73m2 (>59) L [facility] [place] [facility] of [employer] [place] - CORE GFR ( AMER) 14 ml/min/1.73m2 (>59) L Labo ratory [place] of [employer] - CORE GFR INTERPRETATION Laboratory [place] of [employer] CORE --NORMAL KIDNEY FUNCTION OR MILD DISEASE - GFR >OR= 60CHRONIC KIDNEY DISEASE - GFR 15 - 59RENAL FAILURE - GFR <15 Est. GFR calculation based on the MDRDstudy equation, which assumes a steadystate for creatinine. Est. GFR should notbe used for medication dosing. ID Date Data Source [id number] 05/30/2020 11:32:55 AM EDT [facility] [place] [facility] [employer] [place] - CORE Name Value Range Interpretation Code Description Data Tere rce(s) Supporting Document(s) MAGNESIUM 1.8 mg/dL (1.7-2.4) [facility] [place] [facility] [employer] [place] - [facility] ID Date Data Source [id number] 05/27/2020 10:06:00 AM EDT [facility] Name Value Range Interpretation Code Description Data Tere rce(s) Supporting Document(s) SARS-CoV-2 RNA Resp Ql [facility]I+probe Negative [facility] This lab was ordered by [facility] and reported by [facility]. ID Date Data Source [id number] 05/27/2020 10:04:29 AM EDT [facility] [place] [facility] [employer] [place] - CORE Name Value Range Interpretation Code [...] - CORE MPV 9.3 fL (7.1-10.7) [facility] [place] [facility] - CORE NEUT % 77.5 % (35.0-75.0) H [facility] [place] - CORE LYMPH % 12.4 % (16.0-52.0) L [facility] [place] - CORE MONO % 7.4 % (0.0-8.0) [facility] [place] [facility] - CORE EOS % 2.0 % (0.0-5.0) [facility] [place] [facility] - CORE BASO % 0.7 % (0.0-4.0) [facility] [place] [facility] - CORE NEUT # 4.0 10*3/uL (1.8-7.7) [facility] - CORE LYMPH # 0.6 10*3/uL (1.2-4.8) L [facility] [place] - CORE MONO # 0.4 10*3/uL (0.0-0.8) [facility] [place] - CORE Eosinophils [#/volume] in Blood by Automated count 0.1 10*3/uL (0.0-0 .5) [facility] [place] [facility] - CORE BASO # 0.0 10*3/uL (0.0-0.2) [facility] - CORE ID Date Data Source [id number] 05/27/2020 10:55:39 AM EDT [facility] [place] [facility] [facility] - CORE Name Value Range Interpretation Code Description Data Tere rce(s) Supporting Document(s) SODIUM 136 mmol/L (136-145) [facility] [place] [facility] - CORE POTASSIUM 4.2 mmol/L (3.6-5.2) [facility] [place] [facility] - CORE CHLORIDE 100 mmol/L (100-108) [facility] [place] [facility] - CORE CO2 31 mmol/L (22-31) [facility] [place] of [place] - CORE ANION GAP 5 mmol/L (7-16) L [facility] [place] [facility] - CORE UREA NITROGEN 63 mg/dL (7-24) H [facility] - CORE CREATININE 5.07 mg/dL (0.80-1.30) HH Laboratory [facility] [employer] - CORE CONSISTENT WITH PREVIOUS RESULTS BUN/CREAT RATIO 12.4 RATIO (10.0-20.0) [facility] [place] [facility] [employer] - CORE GLUCOSE 127 mg/dL (70-99) H [facility] [place] [facility] [employer] - CORE CALCIUM 9.3 mg/dL (8.4-10.2) [facility] [place] [facility] [employer] GFR 11 ml/min/1.73m2 (>59) L [facility] [facility] - CORE GFR ([facility]) 14 ml/min/1.73m2 (>59) L Labo ratory [place] of [employer] GFR INTERPRETATION [facility] [place] of [employer] CORE --NORMAL KIDNEY FUNCTION OR MILD DISEASE - GFR >OR= 60CHRONIC KIDNEY DISEASE - GFR 15 - 59RENAL FAILURE - GFR <15 Est. GFR calculation based on the MDRDstudy equation, which assumes a steadystate for creatinine. Est. GFR should notbe used for medication dosing. ID Date Data Source [id number] 05/27/2020 10:55:39 AM EDT [facility] [place] [facility] [facility] [employer] Name Value Range Interpretation Code Description Data Tere rce(s) Supporting Document(s) MAGNESIUM 1.8 mg/dL (1.7-2.4) [facility] [place] [facility] [employer] ID Date Data Source [id number] 05/25/2020 07:54:24 AM EST [facility] [place] [facility] [facility] [employer] SPECIMEN DESCRIPTION CATHETERIZED URINECULTURE RESULTS NO GROWTHREPORT STATUS FINAL 05/26/2020 Name Value Range Interpretation Code Description Data Tere rce(s) Supporting Document(s) COLOR [facility] [place] [facility] [employer] PERFORMED AT [address] [place] [address] [place] [address] APPEARANCE [facility] [place] [employer] SPEC GRAV URINE 1.014 (1.003-1.030) [facility] [place] [facility] [place] - CORE PH URINE 5.5 (5.0-7.5) [facility] [place] [facility] - CORE LEUK ESTERASE (NEG) [...] CN[place] - CORE ID Date Data Source [id number] 05/25/2020 09:04:34 AM EST [facility] [place] [facility] [facility] - CORE SPECIMEN DESCRIPTION CATHETERIZED URINECULTURE RESULTS NO GROWTHREPORT STATUS FINAL 05/26/2020 Name Value Range Interpretation Code Description Data Tere rce(s) Supporting Document(s) URINE WBC (0-5) [facility] [place] [facility] [employer] [place] - CORE URINE RBC (0-2) [facility] [place] [facility] [employer] [place] - CORE AMORPHOUS 1+ [HPF] Laboratory [place] [facility] [employer] [place] - CORE ID Date Data Source [id number] 05/26/2020 07:32:30 AM EDT [facility] [place] [facility] [facility] - CORE SPECIMEN DESCRIPTION CATHETERIZED URINECULTURE RESULTS NO GROWTHREPORT STATUS FINAL 05/26/2020 Name Value Range Interpretation Code Description Data Tere rce(s) Supporting Document(s) ID Date Data Source [id number] 05/23/2020 02:54:28 PM EST [employer] Name Value Range Interpretation Code Description Data Tere rce(s) Supporting Document(s) Discharge Summary [facility] MIIHXi6iBzCVHyVi22/XHPlhWOWjn7GjPHzdRDk8IXvhIJCaV5TsSKW6fS4rQGZ7ONfZTlKmXjPkNnXc lbm EwBvqBRvOgZJJvMyqDCwMmADjhYklkgZSrQQ2CmXS7XFZuW95uQPKzVTIfD3YeTLH1YMH+Uq5XWEZppN KsMB5VYvxF6F4iy8w2VA1w2Q0LxEWtYCdqNsl/NLAld78GM98bfDbDXkZg6KiYl3nmm91q/5v+1OpCrT RK0YaSwfI6Ncdp2BFQS3s0gPvZClH/+83vvZ6nZNU/ t/r6tLX5aBq//aYA90w3uvq/idqKU8KJSCX1KVztZ48+3MHA6J6zcGrnrGqSNi4FILevY0BJuJR+/vqF aRiokFrqDokNQuPyvoB6TNJtRUybhC2LCSr2ifM9gSBOif3GEb3ghlSvUysRFUuQjIWKtcFmVuISM56I XHVxARQ5ZjOU5esQdHxptwMwjtBSsrUAiZcCW82o7L JO7k60zOxEC6y6FE9rN5Jh5obDLkaSuPfVfqXxHq+lzH93356s7ALKU7c7eLwfn/5AAf9aR9y5dlxstk Sk8dq3rzi/g98bXwkswbIiSNOf4mh0Zxs75CoMUsha0sHIqDTijjAmKlhil+1w9cfUXkQiDWGoNbG7ox MLzmc/9aaaWAhjuGz7HxtjbdkNTXgssLx7J3cg6Gst tbpRptCVWs+TP+bdJ2TJ9mrB0UfpwROktZGL9xxcdGbjqdTRXnPm9ke8+2869G1GhFw4RdXu+2HDk/fH 02oizZqRWDeMMsnHMJzRgNObBQiB6npkuLF7bz8dGhl5E5E7EaeTiV7BJN+IN/8Wqk4AJ+qz7GQGoV/R OLyxgQmFr5k+nSHNA1jqtJoeHdPTUINoz2lL+tuBE2 1nQorFx+hBh7zj3MYS4dRE9de4b+r6lQfd72W7Xt5Gz5dBUDM2MLvIePDYCXdGx9UUx/ZDjXZKE+kVeX BGB+bNPBWtO1Kyh6o2WKV4RK4YGfCpiO94msFpinPbjHqbh3RzyydE9U8U30dhZPEdvhFTNHdK0x5upf 3pySby/4aO2N60K60xxj68RGVt3/u58kzH7eBt7t+7 [file] 2fvhfVplshPJSHesehFnytlx3/9f/f3R5xXCI/3eFy 7yEx+RAxxyWHw+F5pQmCoD+/JI/yZl5B1Jxklm/eLJ6rzCc+/4lcyacWB2z4+rX7puv21KgRlcE+7t5J 5x94t4qwO0n110Vzx6+Pdo6O/zHa+Ie9Fo81j4N8zacz3NgciZf6jkwF//pxuvt2+xp974Guia2Jo+dp b3eWzTu/FtnNyb/rWCeV4uVHKpCgF/ezNJuffuN1YW 0IyjpVfa9Eix8PRCo++5LREEn6t+NF6+PixyxzNqeyeSCbu/jtV/TsFO0xwUu7ctV9aacBwk1q6EIM2D VOoHfLhHrO0nxVN+bNiy9/xtL3NmFoQn3ns4OiFpACskYoc7quFrwL/uk49cd4tXX74N7dPEiku+hlRp iWALQzl3t6MCyWMUl7b8rqacDy/ZBQz/Z3zow9Z6hD nF2M/DlIP98o/vPp/TuBwayMRgnl6xdQ5Arqgoj3BRMiKAS9Kn8Rs7PaKwOUE0PXPIXjO01qzvSfWN53 ix7nLxUFQEAl5tl93zt4lHuT+d9QJHGmwchT7fm60uLYYaFQz+qTQw0ymxXDTg1PNu97xZa1rnBSABZR drEFEibLlLFsLYjlKsNNtfwOHNtvaZxFRN7J+1giUP Z0uHlFOZ9bfnokp8lYIWf7cpDjHR2Vh8nT17krcUiV65ReWn26xqY05QikGv+vIbwpxEEorqO/yuRW1U 3lTVW2ckaWhWrk+spJd+VDr9BayWr5E2pEL6D/internal medicine physician assistant/EqpuBtVOj2CAqjGUNLZJgt6GrcqiC1HcxW38n91 [file] 7A/YsGise6irPt2WOAIAJPf8rE4xWoXsf3AAz8NRwG5j4w63pcSl+process specialist+iR3ApUv2CxHzgtib/sCal5n+ [file] ICAgICAgICAgICAgICAgICAgICAgICAgICAgICAgIC AgICAgICAgICAgICAgICAgICANCiAgICAgICAgICAgICAgICAgICAgICAgICAgICAgICAgICAgICAgIC AgICAgICAgICAgICAgICAgICAgICAgICAgICAgICAgICAgICAgICAgICAgICAgICAgICAgICAgICAgIC ANCiAgICAgICAgICAgICAgICAgICAgICAgICAgICAg ICAgICAgICAgICAgICAgICAgICAgICAgICAgICAgICAgICAgICAgICAgICAgICAgICAgICAgICAgICAg ICAgICAgICAgICANCiAgICAgICAgICAgICAgICAgICAgICAgICAgICAgICAgICAgICAgICAgICAgICAg ICAgICAgICAgICAgICAgICAgICAgICAgICAgICAgIC AgICAgICAgICAgICAgICAgICAgICANCiAgICAgICAgICAgICAgICAgICAgICAgICAgICAgICAgICAgIC AgICAgICAgICAgICAgICAgICAgICAgICAgICAgICAgICAgICAgICAgICAgICAgICAgICAgICAgICAgIC AgICANCiAgICAgICAgICAgICAgICAgICAgICAgICAg ICAgICAgICAgICAgICAgICAgICAgICAgICAgICAgICAgICAgICAgICAgICAgICAgICAgICAgICAgICAg ICAgICAgICAgICAgICANCiAgICAgICAgICAgICAgICAgICAgICAgICAgICAgICAgICAgICAgICAgICAg ICAgICAgICAgICAgICAgICAgICAgICAgICAgICAgIC AgICAgICAgICAgICAgICAgICAgICAgICANCiAgICAgICAgICAgICAgICAgICAgICAgICAgICAgICAgIC AgICAgICAgICAgICAgICAgICAgICAgICAgICAgICAgICAgICAgICAgICAgICAgICAgICAgICAgICAgIC AgICAgICANCiAgICAgICAgICAgICAgICAgICAgICAg ICAgICAgICAgICAgICAgICAgICAgICAgICAgICAgICAgICAgICAgICAgICAgICAgICAgICAgICAgICAg ICAgICAgICAgICAgICAgICANCiAgICAgICAgICAgICAgICAgICAgICAgICAgICAgICAgICAgICAgICAg ICAgICAgICAgICAgICAgICAgICAgICAgICAgICAgIC AgICAgICAgICAgICAgICAgICAgICAgICAgICANCjw/sXZyO7igvSKoatO6E3sdRd1GIk9UHS2xv8EaWE RqWTwdgrBgXyaNQvAlNMClFizRQjs4LTxeBT1UjYLkL4QlT6TsKDnlSX3UQDXaWXIyjYNkKHQvLIBeVy Q9BBEpEAdnWQ7FhDVyCRqnYPLlERGqKxMpUFYrUAWf OTTfNDWtNFRAPDZmIJKaOnXyFXUsDYIqVLvnAPRCEOL6NMSqXeOlUHQiSKWwPsJaRVLLON8EZiJkF4Pu oB84EXAoENv+Po8GMP5kf1LjKPf3YLEjYT0qpl8BTLtTZpOpW9MwkuE8CODrKWZlRm6IVRLrULZkwQY1 HIHtVJPTHuFtH4YemQ53TCQNTa1+DQplbmRvYmoNCj LcDYXpr0UxUOz8XV6PQYOnSTm8fKIfFSvaP0kjsrnmVKP3eT1iccbmXcrpU2PhAHvpIVZTLoZyjiZdOK LRAAF8TWGrASTgUqGcCOWuDDemYWMZOOlVRpFgK1Jue7SmMxB7NXYfFsAkSJgiEJVmYhT9GD62aWclZF 1HXHTaQCKxBL44MEL6BUDqZf9TNz7YOlUpXA3cxo5G YOCuXJFgYnoJXzk4RRveIV6UvYQpC9XveXIlk4zKXkUnM2XCIKW3ZDZxXn6KGTSlRaRzLIRsVOzbII8f IIRiHAOXzCjgstT5LY2VJK0qbyGuKP0LIlEwJt2aWl4SUpTvM5YyV0IqTIGaHTRMPTvoDL2NVLkdWX1y DM6Dr3VCxLWjiG0ndu0TXKAdHLSnNibpdi5PTsurW8 T9vWhrEJZsEZeaITNJECveUL9PXKCqBRC2BZY6KKKrSWBVMgAiC43gDL2LN8Weh29iXvG5VWWuJsVqEQ qzHX32oSrwrgBrgBQkbZzmJO2AHi9+UUfwnhDfFjiHRqoeJOATJrAmEVRBWaSiVUFjYESkNXDnHaW0Kn JwLs2IKSXgGZImJIMgXbQyCWMqRPEmAPvbUSGaYQQp Zgy7RHCcERJgTO8GLdKkMQCrEXKcDJruGFBwUWIgke5SKGFtFQCeBJA4JuNtEEZzIVJcXKvpDAOhEWHb BOS3QJZfGYJrUB2TKvVvGJLhMNKiVMvvLRCdWTHlrz5QXSDgFJFmEEO7GCEzVWGbKGUoVZlaGPHnUKD3 WwksLWMtFFJvUC1XKdFsQTLwJKTeCeyeVEOcSIIvgm 9MVRXqHDEuBkJ3IzEnULRuSURqIXbcKYFvGYU9JTR0FXJgRRAtKG4SIpHjEFOcOTy4ZsGaNUDkGAZmiu 7WBFUoEXOgTaA6DpFqHLCxXZOnBAuhOQMtNSFhWJkdOJFrCTMjEU9BYaNoPDXhMom7AHPrPFTqUYYgpo 0KMDAwMDAyODAwMiAwMDAwMCBuDQowMDAwMDMwMzIx RQQrZYMpPP5YJfEoPZPeZiD9SvydAVAkDFNxps3WNXKlSOFdGxy9DNLqNQXbTIDuPJtyBOYlVQDuYZJ5 QTLyGZKlTO3ZHbZrRWYiYhI9PqKzYACrBEJbof9TRQCmAPLvAbX1UlFbVUYpFJBkVPerRWMkZVW8ToH7 CMPeHWClIC6CNuCyOPEeBjh2AfOxODUaUNRtgn6CHV AaYGYkMVQ5BRQhAEPqZBWnPDvtCCLeBXP3IgiqVGUiNJJnAC7DDdAbRMHoHyk3ZgFpUMMlYMCwjy8UAI MvIEJ4VYfnDdIaWFEpRFMtFGjnWCJmJZZfLOH5FRMzODJnVR5HFpTjSKXqHGRyNCIpZRBcNNMvmu8PLE DtFAO5CeG4CaDkMSCiZXSdVFnlZKBtTJBgQdvoEFNp VFBqDC3XKjSuDGGwXJK8CtWwWWJmBFVmxl6CYLGrOZB1NnZjKpHdUWScSUDuYFqvHPUxSLWzXiUyHIPd HIGuNI7JRkIoVUCxYOE8HbGwGAGtIWBwkw7AVURzOLU7KBl8RCQbJSYxHKMqGFtnGTPfFKF4YZn6YEXo VUCqSR4ZIfQnDLWzHLYyBREnKZQcKXMpzw0WZGYeSR H3BFG6ONZnRHAePAEkOBzjLKKiGZDkLDT0NRDqVRLjAZ8ETkXuMUSaDNP3KqhtOZMpEWPdfe3XRGIwBM J4ARcvVLRhVUKnALVdHNylMVBmTOVpDKX8NLXbUUFoXB2SBwIpTDBdYDYeIEQxKXEpOGJutp4XFUNxTI J1LwU8AMLlNXVeYAHvQEfrZALqPQVnEwVnXLSzJSBt ZI8BFeDhTAEdPWF7JEumLGYySIYgvs5IRXDpUWF6WEScUjVvZZLzEZXaRDpnATYfEXU3Oem4DISwXQIz BS1BTmMbOMZkJSM0KNWdJYGyPQWouy8EoMGymUiryi5JJSgSHd0LbMotVAHhHXjcRn2lbSG0WYRwAIUE Kd3GbtZfGLClQTNDOVrfJEJlCYTxPBK6LlWlTXJjY3 PyACPgELboJwWfQyGbOuQ7GGPfJeC9BVFkWDEmDJRsVHGpT4BkCFLfLIDjAJBzWWNoUpc1XnC+IF0gDQ o+Iq0Qr2EgltC4duFiZYa6NDu8AW6CFIBKV8DHOl== ID Date Data Source [id number] 05/22/2020 11:36:46 AM [facility] Value Range Interpretation Code Description Data Tere rce(s) Supporting Document(s) Glucose [Mass/volume] in Capillary blood by Glucometer 163 mg/dL 70- 140 [facility] ID Date Data Source [id number] 05/22/2020 07:40:28 AM [facility] Value Range Interpretation Code Description Data Tere rce(s) Supporting Document(s) Glucose [Mass/volume] in Capillary blood by Glucometer 125 mg/dL 70- 140 [facility] ID Date Data Source [id number] 05/21/2020 09:03:05 PM [facility] Value Range Interpretation Code Description Data Tere rce(s) Supporting Document(s) Glucose [Mass/volume] in Capillary blood by Glucometer 164 mg/dL 70- 140 [facility] ID Date Data Source [id number] 05/21/2020 04:32:56 PM [facility] Value Range Interpretation Code Description Data Tere rce(s) Supporting Document(s) Glucose [Mass/volume] in Capillary blood by Glucometer 154 mg/dL 70- 140 H [facility] ID Date Data Source [id number] 05/21/2020 02:46:36 PM [facility] Name Value Range Interpretation Code Description Data Tere rce(s) Supporting Document(s) Specimen source [Identifier] of Unspecified specimen [facility] SARS-CoV-2 RNA 2019 nCoV Real-Time RT-PCR: NOT DETECTED [facility] Assay Performed [facility] Patients first test for [facility] 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[facility] Patient has symptoms related to [facility] When did you start to experience these symptoms [Date and time] [Phen X] [facility] Patient was hospitalized because of this condition [facility] patient was admitted to ICU for [facility] Patient resides in a congregate care setting [facility] status [employer] ID Date Data Source [id number] 05/21/2020 02:46:06 PM [facility] Service Cmnt XXX-Imp : NoneRespiratory P CR Panel : PCR ResultsMicroorganism XXX Cult : See Labs Tab for 2019 nCoV RT-PCR resultsHAdV DNA QI MARI+non-probe : Not DetectedHCoV [id number] Nph QI MARI+non-probe : Not DetectedHCoV [id number] Nph QI MARI+non-probe : Not [id number] RNA Nph QI MARI+non-probe : Not [id number] RNA Upper resp QI MARI+probe : Not [...] DNA Nph Q MARI+non-probe : Not DetectedB [id number] DNA Nph MARI+non-probe : Not Detected Name Value Range Interpretation Code Description Data Tere rce(s) Supporting Document(s) ID Date Data Source [id number] 05/21/2020 12:40:00 PM EST [facility] Name Value Range Interpretation Code Description Data Tere rce(s) Supporting Document(s) SARS-CoV-2 RNA 2019 nCoV Real-Time RT-PCR: NOT DETECTED [facility] This lab was ordered by [facility] and reported by [facility] ID Date Data Source [id number] 05/21/2020 11:45:22 AM [facility] Name Value Range Interpretation Code Description Data Tere rce(s) Supporting Document(s) Glucose [Mass/volume] in Capillary blood by Glucometer 103 mg/dL 70- 140 [facility] ID Date Data Source [id number] 05/21/2020 07:41:03 AM [facility] Name Value Range Interpretation Code Description Data Tere rce(s) Supporting Document(s) Glucose [Mass/volume] in Capillary blood by Glucometer 142 mg/dL 70- 140 H [facility] ID Date Data Source [id number] 05/21/2020 05:22:20 AM [facility] Name Value Range Interpretation Code Description Data Tere rce(s) Supporting Document(s) Bicarbonate [Moles/volume] in Serum 23 mmol/L 22-29 [facility] Chloride [Moles/volume] in Serum or Plasma 95 mmol/L 98-107 L [facility] Creatinine [Mass/volume] in Serum or Plasma 4.85 mg/dL 0.70-1.20 H [facility] Glucose [Mass/volume] in Serum or Plasma 117 mg/dL 70-140 [facility] Potassium [Moles/volume] in Serum or Plasma 4.8 mmol/L 3.4-5.1 [facility] Sodium [Moles/volume] in Serum or Plasma 131 mmol/L 136-145 L [facility] Urea nitrogen [Mass/volume] in Serum or Plasma 48 mg/dL 8-23 H [facility] Anion gap 3 in Serum or Plasma 13 mmol/L 8-15 [facility] Osmolality of Serum or Plasma by calculation 286 mosm/kg 275-300 [facility] Creatinine/Urea nitrogen [Mass Ratio] in Serum or Plasma 10 [facility] Calcium [Mass/volume] in Serum or Plasma 9.2 mg/dL 8.8-10.2 [facility] Glomerular filtration rate/1.73 sq M pre dicted among non-blacks [Volume Rate/Area] in Serum or Plasma by Creatinine-based formula (MDRD) 11 mL/min/1.73m2 >60 L [facility] Glomerular filtration rate/1.73 sq M pre dicted among blacks [Volume Rate/Area] in Serum or Plasma by Creatinine-based formula (MDRD) 12 mL/min/1.73m2 >60 L [facility] ID Date Data Source [id number] 05/21/2020 05:31:[address] [facility] Name Value Range Interpretation Code Description Data Tere rce(s) Supporting Document(s) Leukocytes [#/volume] in Blood by Automated count 6.2 10*3/uL 4-10 [facility] Erythrocytes [#/volume] in Blood by Automated count 3.21 10*6/uL 4.6- 6.1 L [facility] Hemoglobin [Mass/volume] in Blood 10.1 g/dL 13.5-18 L [facility] Hematocrit [Volume Fraction] of Blood by Automated count 29.9 % 4 1-53 L [facility] Erythrocyte mean corpuscular volume [Entitic volume] by Auto mated count 93.2 fL 80-96 [facility] Erythrocyte mean corpuscular hemoglobin [Entitic mass] by Automated count 31.4 pg 27-33 [facility] Erythrocyte mean corpuscular hemoglobin concentration [Mass/volume] by Automated [facility] 33.7 g/dL [facility].0[facility] width [Ratio] by Automated count 14.9 % 11.5-14.5 H [facility] Platelets [#/volume] in Blood by Automated count 142 10*3/uL 150-400 L [facility] Differential cell count method - Blood [facility] Neutrophils/100 leukocytes in Blood by Automated count 74 % [facility] Lymphocytes/100 leukocytes in Blood by Automated count 13 % [facility] Monocytes/100 leukocytes in Blood by Automated count 9 % [facility] Eosinophils/100 leukocytes in Blood by Automated count 3 % [facility] Basophils/100 leukocytes in Blood by Automated count 1 % [facility] Neutrophils [#/volume] in Blood by Automated count 4.59 10*3/uL 1.8-7 .0 [facility] Lymphocytes [#/volume] in Blood by Automated count 0.77 10*3/uL 1.2-4 .0 L [facility] Monocytes [#/volume] in Blood by Automated count 0.58 10*3/uL 0-0.8 [facility] Eosinophils [#/volume] in Blood by Automated count 0.18 10*3/uL 0-0.5 [facility] Basophils [#/volume] in Blood by Automated count 0.04 10*3/uL 0-0.2 [facility] Nucleated erythrocytes/100 leukocytes [Ratio] in Blood by Automated count 0 /100{WBCs} 0-0 [facility] ID Date Data Source [id number] 05/20/2020 09:37:51 PM [facility] Name Value Range Interpretation Code Description Data Tere rce(s) Supporting Document(s) Glucose [Mass/volume] in Capillary blood by Glucometer 136 mg/dL 70- 140 [facility] ID Date Data Source [id number] 05/20/2020 04:33:54 PM [facility] Value Range Interpretation Code Description Data Tere rce(s) Supporting Document(s) Glucose [Mass/volume] in Capillary blood by Glucometer 130 mg/dL 70- 140 [facility] ID Date Data Source [id number] 05/20/2020 02:38:44 PM [facility] Value Range Interpretation Code Description Data Tere rce(s) Supporting Document(s) [facility] [id number] [facility] [file] AgICAgICAgICAgICAgICAgICAgICAgICAgICAgICAgICAgICAgICAgICAgICAgICAgICAgICAgICAgIC AgICAgICAgICANCiAgICAgICAgICAgICAgICAgICAg ICAgICAgICAgICAgICAgICAgICAgICAgICAgICAgICAgICAgICAgICAgICAgICAgICAgICAgICAgICAg ICAgICAgICAgICAgICAgICAgICANCiAgICAgICAgICAgICAgICAgICAgICAgICAgICAgICAgICAgICAg ICAgICAgICAgICAgICAgICAgICAgICAgICAgICAgIC AgICAgICAgICAgICAgICAgICAgICAgICAgICAgICANCiAgICAgICAgICAgICAgICAgICAgICAgICAgIC AgICAgICAgICAgICAgICAgICAgICAgICAgICAgICAgICAgICAgICAgICAgICAgICAgICAgICAgICAgIC AgICAgICAgICAgICANCiAgICAgICAgICAgICAgICAg ICAgICAgICAgICAgICAgICAgICAgICAgICAgICAgICAgICAgICAgICAgICAgICAgICAgICAgICAgICAg ICAgICAgICAgICAgICAgICAgICAgICANCiAgICAgICAgICAgICAgICAgICAgICAgICAgICAgICAgICAg ICAgICAgICAgICAgICAgICAgICAgICAgICAgICAgIC AgICAgICAgICAgICAgICAgICAgICAgICAgICAgICAgICANCiAgICAgICAgICAgICAgICAgICAgICAgIC AgICAgICAgICAgICAgICAgICAgICAgICAgICAgICAgICAgICAgICAgICAgICAgICAgICAgICAgICAgIC AgICAgICAgICAgICAgICANCiAgICAgICAgICAgICAg ICAgICAgICAgICAgICAgICAgICAgICAgICAgICAgICAgICAgICAgICAgICAgICAgICAgICAgICAgICAg ICAgICAgICAgICAgICAgICAgICAgICAgICANCiAgICAgICAgICAgICAgICAgICAgICAgICAgICAgICAg ICAgICAgICAgICAgICAgICAgICAgICAgICAgICAgIC AgICAgICAgICAgICAgICAgICAgICAgICAgICAgICAgICAgICANCiAgICAgICAgICAgICAgICAgICAgIC AgICAgICAgICAgICAgICAgICAgICAgICAgICAgICAgICAgICAgICAgICAgICAgICAgICAgICAgICAgIC AgICAgICAgICAgICAgICAgICANCjw/oPZdQ3onqAQw klT2R4qpUx9BAx8LSB5hb8KtZLRjWHpqzrYqNjeMVjVhHESoVndMKjq6FOgcTF8WhNQqC5LbZ0AiIOsl FU9FQWPoLGKqeMPkIPSzXTTtIdM1NNJkPCbaXK6PvBZxSLbuRHLsCYHxEyTyGOHfOITgJEVgREIpLXEF PDUuSIEjJzMdSIXqDSOvHVkzKSMTEU5HAiHcX5DvgM 77XZnHDx0+TBsdeaNoQqvGXwAuOYCsh0GaLCn5VB4XRSCcItylb1FqRaAbTNYAZWxoLY8XOTS9UBHgMF EhCy7NWRCjY204hhZmLY9JTz1ICfNgHR1elp9ZMcJrBDKmTewVHbv0FXaqWI8FsYLtSReOb32nwGr3gl IljQTAaDOdkvK6AFfwMJSreZ0hGuzaOA5tDQDnRw93 QpVhOaLkTNw0TXSmZP9tQLrlLD7WSYI3NEsgNDEzSPTfG4nIQiOaIOCdGoVtkHfmPX2LLxPqO5ZcgqXx dCAzMSAwIFINCj4+LGfojfRaVziSUhRrWFRzv8ZgCXa7HM4FUXVhWMhyEF3FITRlgX9wQNsoNI1ALhIn YLOhQQVSMsGhU56rtRFeVOo2O1KpYlFrCIOiFvmjFS MgPDwvTmFtZXMgWyBdDQogID4+ID4+KVpwWO7RTQsivmHeBGHuMg2SKNQlBVLeOZ1cXVFfRQYbJ9C9hL caTXBBXeKiI7dswbhpUX9fZGEvF977hOgdwjRqIHFsTGYdRh7CFQAaCBW9ICUkbDFyUhStPSLJWUzbIK 4GzFHtMWA8eC4aKDepTHBaHQVdZ3xLYlCgkPslFW50 bGwgbnVsbCBdDQo+Tf2ZOZ3nv9UnDDs2cbOpYGbsWFT0IQgnWJOjLLJfITStAFR2QHL4AVEZYtZcLUYy MLPqNAyqPWApVJYnuo7ZPGUwQVJ7ZYV2LRUqSXAiVEXpEJwwWYWuXGEsRtKnLLVcKDGqUD4OCtGdPXOv AGSzYWylQXBxVTHupu4CHRIqYHNcTXFwFHQyOJSjYP HtGWvoJVWuNWP7ObC6AOChEXGoDL0EBpRaRMZtFMrvCTThTUPwMTPzmy0JAKKePFKhROY9JXPdAOPeVY SoZYzjFLDuBFOmXWb4PEIiGBGhGI0NWeUmPPHsTTJ7RLKmHJQnVPBgac6SPLHbKTEdErZeZFDmXLFcOX ExYNesNRKvCWA8YKP0VQWcWMPpXL7WDlWfJOGvVbMh TTbnFYEfIZSxhh6HKSKaJKEcCRH4UXPvNKKxHDHnEWtqVIGfWBEnPCXnJOBaKIYsEH5XMbCaCOWkCgNw TSxpFNJmCJVdbh1XHGByRUNeGrLnSoXhLIRnOHWnUPexCAWlNAY3LzEbTKRrFWUmMH4PQxIyPACuGxp8 LBZmDBMoNKUrjh9QLQFqTMCmYeb3DLRxTODgEPPrPO kbHQRbXIJ6PTyvPTHwTSKiUD9RCqOjFTVrCdg7DsQlMXDgCGDwyk5ILLBhKMQsIPVsUWRgVWFrOPRiAX ogIZXqHBU3QaSeLYWuTGOxEY9QOsJoJNDdYFA3VPgyBZAwSERobt7SMLUgZCZ1LSNpEMSxYJHjMLTqPX beDWMgFIFmBzN5IWPtKXSxAL5TBaYsIZWkVYB9DmQa FFXhDMItxt8GMNCmJTE8UZAvJPOxANLaLVWtKXiqCSZxCDLkGDXbJUZxRDGgEM8CPjMqQTDpWLK3YGaj TVGkXBLmwu0CHKIqEZS6ZiV3ZWXhJLRrRRUjXVobVHFhJYRzPjE7GBRyZICuUT1RXxToHKotBVVPPvs9 CBgvC1x8QKGnRG8AZ5Efd6VxBqQsUYUMCNwnLX8yjy PsFJFaKq9VG3yLBhl2HZtbEXF5JZY6MWEcZWN4W5RsRTGoVjI8ChebZLIaGk6xNLY9C2QcIuT1BwPaXm DkYZy1FEKhRCKbEPhzWAYuDUQ7MuZaNH2SSb3HFrC6BVG9kXNlMi1NZJQ8HGpQKhHkNF7DCRy= ID Date Data Source [id number] 05/20/2020 11:56:50 AM EST [facility] Name Value Range Interpretation Code Description Data Tere rce(s) Supporting Document(s) Glucose [Mass/volume] in Capillary blood by Glucometer 164 mg/dL 70- 140 H [facility] ID Date Data Source [id number] 05/20/2020 08:01:39 AM [facility] Name Value Range Interpretation Code Description Data Tere rce(s) Supporting Document(s) Glucose [Mass/volume] in Capillary blood by Glucometer 99 mg/dL 70- 140 [facility] ID Date Data Source [id number] 05/20/2020 05:52:11 AM [facility] Name Value Range Interpretation Code Description Data Tere rce(s) Supporting Document(s) Leukocytes [#/volume] in Blood by Automated count 5.1 10*3/uL 4-10 [facility] Erythrocytes [#/volume] in Blood by Automated count 3.06 10*6/uL 4.6- 6.1 L [facility] Hemoglobin [Mass/volume] in Blood 9.8 g/dL 13.5-18 L [facility] Hematocrit [Volume Fraction] of Blood by Automated count 28.6 % 4 1-53 L [facility] Erythrocyte mean corpuscular volume [Entitic volume] by Auto mated count 93.4 fL 80-96 [facility] Erythrocyte mean corpuscular hemoglobin [Entitic mass] by Automated count 32.1 pg 27-33 [facility] Erythrocyte mean corpuscular hemoglobin concentration [Mass/volume] by Automated count 34.4 g/dL 32.0-36.0 [facility] width [Ratio] by Automated count 14.6 % 11.5-14.5 H [facility] Platelets [#/volume] in Blood by Automated count 148 10*3/uL 150-400 L [facility] Differential cell count method - Blood [facility] Neutrophils/100 leukocytes in Blood by Automated count 72 % [facility] Lymphocytes/100 leukocytes in Blood by Automated count 11 % [facility] Monocytes/100 leukocytes in Blood by Automated count 12 % [facility] Eosinophils/100 leukocytes in Blood by Automated count 4 % [facility] Basophils/100 leukocytes in Blood by Automated count 1 % [facility] Neutrophils [#/volume] in Blood by Automated count 3.75 10*3/uL 1.8-7 .0 [facility] Lymphocytes [#/volume] in Blood by Automated count 0.53 10*3/uL 1.2-4 .0 L [facility] Monocytes [#/volume] in Blood by Automated count 0.59 10*3/uL 0-0.8 [facility] Eosinophils [#/volume] in Blood by Automated count 0.19 10*3/uL 0-0.5 [facility] Basophils [#/volume] in Blood by Automated count 0.03 10*3/uL 0-0.2 [facility] Nucleated erythrocytes/100 leukocytes [Ratio] in Blood by Automated count 0 /100{WBCs} 0-0 [facility] ID Date Data Source [id number] 05/20/2020 04:57:[address] [facility] Name Value Range Interpretation Code Description Data Tere rce(s) Supporting Document(s) Bicarbonate [Moles/volume] in Serum 18 mmol/L 22-29 L [facility] Chloride [Moles/volume] in Serum or Plasma 98 mmol/L 98-107 [facility] Creatinine [Mass/volume] in Serum or Plasma 4.35 mg/dL 0.70-1.20 H [facility] Glucose [Mass/volume] in Serum or Plasma 132 mg/dL 70-140 [facility] Potassium [Moles/volume] in Serum or Plasma 4.7 mmol/L 3.4-5.1 [facility] Sodium [Moles/volume] in Serum or Plasma 131 mmol/L 136-145 L [facility] Urea nitrogen [Mass/volume] in Serum or Plasma 42 mg/dL 8-23 H [facility] Anion gap 3 in Serum or Plasma 15 mmol/L 8-15 [facility] Osmolality of Serum or Plasma by calculation 284 mosm/kg 275-300 [facility] Creatinine/Urea nitrogen [Mass Ratio] in Serum or Plasma 10 [facility] Calcium [Mass/volume] in Serum or Plasma 8.9 mg/dL 8.8-10.2 [facility] Glomerular filtration rate/1.73 sq M pre dicted among non-blacks [Volume Rate/Area] in Serum or Plasma by Creatinine-based formula (MDRD) 12 mL/min/1.73m2 >60 L [facility] Glomerular filtration rate/1.73 sq M pre dicted among blacks [Volume Rate/Area] in Serum or Plasma by Creatinine-based formula (MDRD) 14 mL/min/1.73m2 >60 L [facility] ID Date Data Source [id number] 05/19/2020 09:31:10 PM [facility] Name Value Range Interpretation Code Description Data Tere rce(s) Supporting Document(s) Glucose [Mass/volume] in Capillary blood by Glucometer 186 mg/dL 70- 140 H [facility] ID Date Data Source [id number] 05/19/2020 06:48:35 PM [facility] Name Value Range Interpretation Code Description Data Tere rce(s) Supporting Document(s) Leukocytes [#/volume] in Blood by Automated count 6.6 10*3/uL 4-10 [facility] Erythrocytes [#/volume] in Blood by Automated count 3.26 10*6/uL 4.6- 6.1 L [facility] Hemoglobin [Mass/volume] in Blood 10.3 g/dL 13.5-18 L [facility] Hematocrit [Volume Fraction] of Blood by Automated count 30.6 % 4 1-53 L [facility] Erythrocyte mean corpuscular volume [Entitic volume] by Auto mated count 93.7 fL 80-96 [facility] Erythrocyte mean corpuscular hemoglobin [Entitic mass] by Automated count 31.6 pg 27-33 [facility] Erythrocyte mean corpuscular hemoglobin concentration [Mass/volume] by Automated count 33.7 g/dL 32.0-36.0 [facility] width [Ratio] by Automated count 14.5 % 11.5-14.5 [facility] Platelets [#/volume] in Blood by Automated count 163 10*3/uL 150-400 [facility] Differential cell count method - Blood [facility] Neutrophils/100 leukocytes in Blood by Automated count 73 % [facility] Lymphocytes/100 leukocytes in Blood by Automated count 12 % [facility] Monocytes/100 leukocytes in Blood by Automated count 10 % [facility] Eosinophils/100 leukocytes in Blood by Automated count 4 % [facility] Basophils/100 leukocytes in Blood by Automated count 1 % [facility] Neutrophils [#/volume] in Blood by Automated count 4.92 10*3/uL 1.8-7 .0 [facility] Lymphocytes [#/volume] in Blood by Automated count 0.79 10*3/uL 1.2-4 .0 L [facility] Monocytes [#/volume] in Blood by Automated count 0.63 10*3/uL 0-0.8 [facility] Eosinophils [#/volume] in Blood by Automated count 0.23 10*3/uL 0-0.5 [facility] Basophils [#/volume] in Blood by Automated count 0.06 10*3/uL 0-0.2 [facility] Nucleated erythrocytes/100 leukocytes [Ratio] in Blood by Automated count 0 /100{WBCs} 0-0 [facility] ID Date Data Source [id number] 05/19/2020 04:25:53 PM EST [facility] Name Value Range Interpretation Code Description Data Tere rce(s) Supporting Document(s) Glucose [Mass/volume] in Capillary blood by Glucometer 98 mg/dL 70- 140 [facility] ID Date Data Source [id number] 05/19/2020 11:31:45 AM [facility] Name Value Range Interpretation Code Description Data Tere rce(s) Supporting Document(s) Glucose [Mass/volume] in Capillary blood by Glucometer 157 mg/dL 70- 140 H [facility] ID Date Data Source [id number] 05/19/2020 09:53:00 AM EST [facility] Name Value Range Interpretation Code Description Data Tere rce(s) Supporting Document(s) SARS-CoV-2 RNA 2019 nCoV Real-Time RT-PCR: NOT DETECTED [facility] This lab was ordered by [facility] and reported by [facility]. 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[facility] Patient has symptoms related to [facility] When did you start to experience these symptoms [Date and time] [Phen X] [facility] Patient was hospitalized because of this condition [facility] patient was admitted to ICU for [facility] Patient resides in a congregate care setting [facility] status [facility] ID Date Data Source [id number] 05/19/2020 07:25:47 AM [facility] Name Value Range Interpretation Code Description Data Tere rce(s) Supporting Document(s) Glucose [Mass/volume] in Capillary blood by Glucometer 101 mg/dL 70- 140 [facility] ID Date Data Source [id number] 05/19/2020 07:06:48 AM [facility] Name Value Range Interpretation Code Description Data Tere rce(s) Supporting Document(s) Leukocytes [#/volume] in Blood by Automated count 4.6 10*3/uL 4-10 [facility] Erythrocytes [#/volume] in Blood by Automated count 3.09 10*6/uL 4.6- 6.1 L [facility] Hemoglobin [Mass/volume] in Blood 10.0 g/dL 13.5-18 L [facility] Hematocrit [Volume Fraction] of Blood by Automated count 29.0 % 4 1-53 L [facility] Erythrocyte mean corpuscular volume [Entitic volume] by Auto mated count 94.0 fL 80-96 [facility] Erythrocyte mean corpuscular hemoglobin [Entitic mass] by Automated count 32.2 pg 27-33 [facility] Erythrocyte mean corpuscular hemoglobin concentration [Mass/volume] by Automated count 34.3 g/dL 32.0-36.0 [facility] width [Ratio] by Automated count 14.7 % 11.5-14.5 H [facility] Platelets [#/volume] in Blood by Automated count 159 10*3/uL 150-400 [facility] Differential cell count method - Blood [facility] Neutrophils/100 leukocytes in Blood by Automated count 68 % [facility] Lymphocytes/100 leukocytes in Blood by Automated count 15 % [facility] Monocytes/100 leukocytes in Blood by Automated count 12 % [facility] Eosinophils/100 leukocytes in Blood by Automated count 4 % [facility] Basophils/100 leukocytes in Blood by Automated count 1 % [facility] Neutrophils [#/volume] in Blood by Automated count 3.11 10*3/uL 1.8-7 .0 [facility] Lymphocytes [#/volume] in Blood by Automated count 0.71 10*3/uL 1.2-4 .0 L [facility] Monocytes [#/volume] in Blood by Automated count 0.56 10*3/uL 0-0.8 [facility] Eosinophils [#/volume] in Blood by Automated count 0.20 10*3/uL 0-0.5 [facility] Basophils [#/volume] in Blood by Automated count 0.04 10*3/uL 0-0.2 [facility] Nucleated erythrocytes/100 leukocytes [Ratio] in Blood by Automated count 0 /100{WBCs} 0-0 [facility] ID Date Data Source [id number] 05/19/2020 07:35:14 AM [facility] Name Value Range Interpretation Code Description Data Tere rce(s) Supporting Document(s) Bicarbonate [Moles/volume] in Serum 22 mmol/L 22-29 [facility] Chloride [Moles/volume] in Serum or Plasma 100 mmol/L 98-107 [facility] Creatinine [Mass/volume] in Serum or Plasma 3.72 mg/dL 0.70-1.20 H [facility] Glucose [Mass/volume] in Serum or Plasma 109 mg/dL 70-140 [facility] Potassium [Moles/volume] in Serum or Plasma 4.5 mmol/L 3.4-5.1 [facility] Hemolyzed Sodium [Moles/volume] in Serum or Plasma 133 mmol/L 136-145 L [facility] Urea nitrogen [Mass/volume] in Serum or Plasma 30 mg/dL 8-23 H [facility] Anion gap 3 in Serum or Plasma 11 mmol/L 8-15 [facility] Osmolality of Serum or Plasma by calculation 283 mosm/kg 275-300 [facility] Creatinine/Urea nitrogen [Mass Ratio] in Serum or Plasma 8 [facility] Calcium [Mass/volume] in Serum or Plasma 9.2 mg/dL 8.8-10.2 [facility] Glomerular filtration rate/1.73 sq M pre dicted among non-blacks [Volume Rate/Area] in Serum or Plasma by Creatinine-based formula (MDRD) 14 mL/min/1.73m2 >60 L [facility] Glomerular filtration rate/1.73 sq M pre dicted among blacks [Volume Rate/Area] in Serum or Plasma by Creatinine-based formula (MDRD) 17 mL/min/1.73m2 >60 L [facility] ID Date Data Source [id number] 05/18/2020 09:15:30 PM [facility] Name Value Range Interpretation Code Description Data Tere rce(s) Supporting Document(s) Glucose [Mass/volume] in Capillary blood by Glucometer 131 mg/dL 70- 140 [facility] ID Date Data Source [id number] 05/18/2020 07:05:05 PM [facility] Name Value Range Interpretation Code Description Data Tere rce(s) Supporting Document(s) Leukocytes [#/volume] in Blood by Automated count 5.8 10*3/uL 4-10 [facility] Erythrocytes [#/volume] in Blood by Automated count 3.50 10*6/uL 4.6- 6.1 L [facility] Hemoglobin [Mass/volume] in Blood 11.0 g/dL 13.5-18 L [facility] Hematocrit [Volume Fraction] of Blood by Automated count 32.8 % 4 1-53 L [facility] Erythrocyte mean corpuscular volume [Entitic volume] by Auto mated count 93.8 fL 80-96 [facility] Erythrocyte mean corpuscular hemoglobin [Entitic mass] by Automated count 31.3 pg 27-33 [facility] Erythrocyte mean corpuscular hemoglobin concentration [Mass/volume] by Automated count 33.4 g/dL 32.0-36.0 [facility] width [Ratio] by Automated count 14.7 % 11.5-14.5 H [facility] Platelets [#/volume] in Blood by Automated count 194 10*3/uL 150-400 [facility] Differential cell count method - Blood [facility] Neutrophils/100 leukocytes in Blood by Automated count 77 % [facility] Lymphocytes/100 leukocytes in Blood by Automated count 11 % [facility] Monocytes/100 leukocytes in Blood by Automated count 8 % [facility] Eosinophils/100 leukocytes in Blood by Automated count 3 % [facility] Basophils/100 leukocytes in Blood by Automated count 1 % [facility] Neutrophils [#/volume] in Blood by Automated count 4.50 10*3/uL 1.8-7 .0 [facility] Lymphocytes [#/volume] in Blood by Automated count 0.62 10*3/uL 1.2-4 .0 L [facility] Monocytes [#/volume] in Blood by Automated count 0.48 10*3/uL 0-0.8 [facility] Eosinophils [#/volume] in Blood by Automated count 0.20 10*3/uL 0-0.5 [facility] Basophils [#/volume] in Blood by Automated count 0.05 10*3/uL 0-0.2 [facility] Nucleated erythrocytes/100 leukocytes [Ratio] in Blood by Automated count 0 /100{WBCs} 0-0 [facility] ID Date Data Source [id number] 05/18/2020 04:29:55 PM [facility] Value Range Interpretation Code Description Data Tere rce(s) Supporting Document(s) Glucose [Mass/volume] in Capillary blood by Glucometer 138 mg/dL 70- 140 [facility] ID Date Data Source [id number] 05/18/2020 11:19:21 AM [facility] Value Range Interpretation Code Description Data Tere rce(s) Supporting Document(s) Glucose [Mass/volume] in Capillary blood by Glucometer 120 mg/dL 70- 140 [facility] ID Date Data Source [id number] 05/18/2020 10:04:42 AM [facility] Value Range Interpretation Code Description Data Tere rce(s) Supporting Document(s) Glucose [Mass/volume] in Capillary blood by Glucometer 133 mg/dL 70- 140 [facility] ID Date Data Source [id number] 05/18/2020 07:29:02 AM [facility] Value Range Interpretation Code Description Data Tere rce(s) Supporting Document(s) Glucose [Mass/volume] in Capillary blood by Glucometer 177 mg/dL 70- 140 H [facility] ID Date Data Source [id number] 05/18/2020 06:13:55 AM [facility] Value Range Interpretation Code Description Data Tere rce(s) Supporting Document(s) Bicarbonate [Moles/volume] in Serum 20 mmol/L 22-29 L [facility] Chloride [Moles/volume] in Serum or Plasma 101 mmol/L 98-107 [facility] Creatinine [Mass/volume] in Serum or Plasma 4.52 mg/dL 0.70-1.20 H [facility] Glucose [Mass/volume] in Serum or Plasma 145 mg/dL 70-140 H [facility] Potassium [Moles/volume] in Serum or Plasma 4.5 mmol/L 3.4-5.1 [facility] Sodium [Moles/volume] in Serum or Plasma 133 mmol/L 136-145 L [facility] Urea nitrogen [Mass/volume] in Serum or Plasma 46 mg/dL 8-23 H [facility] Anion gap 3 in Serum or Plasma 12 mmol/L 8-15 [facility] Osmolality of Serum or Plasma by calculation 291 mosm/kg 275-300 [facility] Creatinine/Urea nitrogen [Mass Ratio] in Serum or Plasma 10 [facility] Calcium [Mass/volume] in Serum or Plasma 9.2 mg/dL 8.8-10.2 [facility] Glomerular filtration rate/1.73 sq M pre dicted among non-blacks [Volume Rate/Area] in Serum or Plasma by Creatinine-based formula (MDRD) 11 mL/min/1.73m2 >60 L [facility] Glomerular filtration rate/1.73 sq M pre dicted among blacks [Volume Rate/Area] in Serum or Plasma by Creatinine-based formula (MDRD) 13 mL/min/1.73m2 >60 L [facility] ID Date Data Source [id number] 05/18/2020 06:40:30 AM [facility] Name Value Range Interpretation Code Description Data Tere rce(s) Supporting Document(s) Leukocytes [#/volume] in Blood by Automated count 4.8 10*3/uL 4-10 [facility] Erythrocytes [#/volume] in Blood by Automated count 3.41 10*6/uL 4.6- 6.1 L [facility] Hemoglobin [Mass/volume] in Blood 10.7 g/dL 13.5-18 L [facility] Hematocrit [Volume Fraction] of Blood by Automated count 31.9 % 4 1-53 L [facility] Erythrocyte mean corpuscular volume [Entitic volume] by Auto mated count 93.4 fL 80-96 [facility] Erythrocyte mean corpuscular hemoglobin [Entitic mass] by Automated count 31.3 pg 27-33 [facility] Erythrocyte mean corpuscular hemoglobin concentration [Mass/volume] by Automated count 33.5 g/dL 32.0-36.0 [facility] width [Ratio] by Automated count 14.7 % 11.5-14.5 H [facility] Platelets [#/volume] in Blood by Automated count 155 10*3/uL 150-400 [facility] Differential cell count method - Blood [facility] Neutrophils/100 leukocytes in Blood by Automated count 77 % [facility] Lymphocytes/100 leukocytes in Blood by Automated count 10 % [facility] Monocytes/100 leukocytes in Blood by Automated count 8 % [facility] Eosinophils/100 leukocytes in Blood by Automated count 5 % [facility] Neutrophils [#/volume] in Blood by Automated count 3.68 10*3/uL 1.8-7 .0 [facility] Lymphocytes [#/volume] in Blood by Automated count 0.49 10*3/uL 1.2-4 .0 L [facility] Monocytes [#/volume] in Blood by Automated count 0.40 10*3/uL 0-0.8 [facility] Eosinophils [#/volume] in Blood by Automated count 0.23 10*3/uL 0-0.5 [facility] ID Date Data Source [id number] 05/19/2020 09:27:05 AM [facility] Service Cmnt XXX-Imp : NoneMicroorganism XXX Cult : No growth 1 day Name Value Range Interpretation Code Description Data Tere rce(s) Supporting Document(s) ID Date Data Source [id number] 05/18/2020 12:54:35 AM [facility] Name Value Range Interpretation Code Description Data Tere rce(s) Supporting Document(s) Color of Urine [facility] Clarity of Urine [facility] Specific gravity of Urine by Refractometry automated 1.012 1.003 -1.030 [facility] pH of Urine by Automated test strip 5.0 5.0-8.0 [facility] Protein [Mass/volume] in Urine by Automated test strip Neg [facility] Glucose [Mass/volume] in Urine by Automated test strip 50 mg/dL Neg [facility] Ketones [Mass/volume] in Urine by Automated test strip Neg [facility] Bilirubin.total [Presence] in Urine by Automated test strip Negative [facility] Hemoglobin [Presence] in Urine by Automated test strip Neg ative [facility] Leukocyte esterase [Presence] in Urine by Automated test strip Negative [facility] Nitrite [Presence] in Urine by Automated test strip Negati ve [facility] Leukocytes [#/area] in Urine sediment by Automated count 2323 /HPF 0 -5 H [facility] Erythrocytes [#/area] in Urine sediment by Automated count 19 /HPF 0-3 H [facility] Epithelial cells.squamous [#/area] in Urine sediment by Auto mated count 1 /HPF None [facility] Mucus [#/area] in Urine sediment by Microscopy low power field None [facility] Hyaline casts [#/area] in Urine sediment by Microscopy low p ower field 9 /LPF None [facility] ID Date Data Source [id number] 05/17/2020 09:49:26 PM [facility] Name Value Range Interpretation Code Description Data Tere rce(s) Supporting Document(s) Glucose [Mass/volume] in Capillary blood by Glucometer 116 mg/dL 70- 140 [facility] ID Date Data Source [id number] 05/18/2020 05:10:14 AM [facility] Name Value Range Interpretation Code Description Data Tere rce(s) Supporting Document(s) Leukocytes [#/volume] in Blood by Automated count 4.3 10*3/uL 4-10 [facility] Erythrocytes [#/volume] in Blood by Automated count 3.13 10*6/uL 4.6- 6.1 [facility] Hemoglobin [Mass/volume] in Blood 9.9 g/dL 13.5-18 L [facility] Hematocrit [Volume Fraction] of Blood by Automated count 29.1 % 4 1-53 L [facility] Erythrocyte mean corpuscular volume [Entitic volume] by Auto mated count 92.9 fL 80-96 [facility] Erythrocyte mean corpuscular hemoglobin [Entitic mass] by Automated count 31.7 pg 27-33 [facility] Erythrocyte mean corpuscular hemoglobin concentration [Mass/volume] by Automated count 34.1 g/dL 32.0-36.0 [facility] width [Ratio] by Automated count 14.7 % 11.5-14.5 H [facility] Platelets [#/volume] in Blood by Automated count 147 10*3/uL 150-400 L [facility] Differential cell count method - Blood [facility] Neutrophils/100 leukocytes in Blood by Automated count 74 % [facility] Lymphocytes/100 leukocytes in Blood by Automated count 10 % [facility] Monocytes/100 leukocytes in Blood by Automated count 8 % [facility] Eosinophils/100 leukocytes in Blood by Automated count 7 % [facility] Basophils/100 leukocytes in Blood by Automated count 1 % [facility] Neutrophils [#/volume] in Blood by Automated count 3.23 10*3/uL 1.8-7 .0 [facility] Lymphocytes [#/volume] in Blood by Automated count 0.41 10*3/uL 1.2-4 .0 L [facility] Monocytes [#/volume] in Blood by Automated count 0.33 10*3/uL 0-0.8 [facility] Eosinophils [#/volume] in Blood by Automated count 0.29 10*3/uL 0-0.5 [facility] Basophils [#/volume] in Blood by Automated count 0.04 10*3/uL 0-0.2 [facility] Anisocytosis [Presence] in Blood by Light microscopy [facility] Poikilocytosis [Presence] in Blood by Light microscopy [facility] Nikhil cells [Presence] in Blood by Light [facility] ID Date Data Source [id number] 05/17/2020 09:15:54 PM [facility] Name Value Range Interpretation Code Description Data Tere rce(s) Supporting Document(s) Glucose [Mass/volume] in Capillary blood by Glucometer 125 mg/dL 70- 140 [facility] ID Date Data Source [id number] 05/17/2020 04:57:16 PM [facility] Name Value Range Interpretation Code Description Data Tere rce(s) Supporting Document(s) Glucose [Mass/volume] in Capillary blood by Glucometer 114 mg/dL 70- 140 [facility] ID Date Data Source [id number] 05/17/2020 03:29:19 PM [facility] XR CHEST FRONTAL ONLY [id number] RESULTI nterpreted by:Saúl Cruz MDINDICATION: Concern for [...] rce(s) Supporting Document(s) ID Date Data Source [id number] 05/22/2020 10:52:09 AM [facility] Service Cmnt XXX-Imp : R ACMicroorganism XXX Cult : No growth 5 days Name Value Range Interpretation Code Description Data Tere rce(s) Supporting Document(s) ID Date Data Source [id number] 05/22/2020 10:52:09 AM [facility] Service Cmnt XXX-Imp : R HANDMicroorgani sm XXX Cult : No growth 5 days Name Value Range Interpretation Code Description Data Tere rce(s) Supporting Document(s) ID Date Data Source [id number] 05/17/2020 11:24:59 AM [facility] Name Value Range Interpretation Code Description Data Tere rce(s) Supporting Document(s) Glucose [Mass/volume] in Capillary blood by Glucometer 131 mg/dL 70- 140 [facility] ID Date Data Source [id number] 05/17/2020 09:39:18 AM [facility] MR ANGIOGRAPHY HEAD WITHOUT CONTRAST 705 44FINAL RESULTInterpreted by:Javon Ervin MDHISTORY: Persistent lightheadedness, dizziness, concern for vertebrobasilar sufficiency.COMPARISON: NoneTECHNIQUE: 3-D [id number] MRA of the [place] and 2-D as well as 3-D leje-dj-[id number] MRA of the vessels of the neck [...] are patent bilaterally. origin of the right [employer] and near origin of the left [employer] are noted set. Old is bilateral the [...] basilar artery. Otherwise patent arteries of the [place]. No gross evidence of aneurysm or arteriovenous malformation.This document has been electronically signed by Javon Ervin MD on 05/17/2020 9:37 AM Name Value Range Interpretation Code Description Data Tere rce(s) Supporting Document(s) ID Date Data Source [id number] 05/17/2020 09:39:18 AM [facility] MR ANGIOGRAPHY NECK WITHOUT CONTRAST 705 47FINAL RESULTInterpreted by:Javon Ervin MDHISTORY: Persistent lightheadedness, dizziness, concern for vertebrobasilar sufficiency.COMPARISON: NoneTECHNIQUE: 3-D [id number] MRA of the [place] and 2-D as well as 3-D iflr-og-ernckd MRA of the vessels of the neck [...] are patent bilaterally. origin of the right [place] and near origin of the left [place] are noted set. Old is bilateral the [...] basilar artery. Otherwise patent arteries of the [place]. No gross evidence of aneurysm or arteriovenous malformation.This document has been electronically signed by Javon Ervin MD on 05/17/2020 9:37 AM Name Value Range Interpretation Code Description Data Tere rce(s) Supporting Document(s) ID Date Data Source [id number] 05/17/2020 07:30:20 AM [facility] Name Value Range Interpretation Code Description Data Tere rce(s) Supporting Document(s) Glucose [Mass/volume] in Capillary blood by Glucometer 146 mg/dL 70- 140 H [facility] ID Date Data Source [id number] 05/17/2020 04:54:10 AM [facility] Name Value Range Interpretation Code Description Data Tere rce(s) Supporting Document(s) Leukocytes [#/volume] in Blood by Automated count 4.6 10*3/uL 4-10 [facility] Erythrocytes [#/volume] in Blood by Automated count 3.29 10*6/uL 4.6- 6.1 L [facility] Hemoglobin [Mass/volume] in Blood 10.4 g/dL 13.5-18 L [facility] Hematocrit [Volume Fraction] of Blood by Automated count 30.6 % 4 1-53 L [facility] Erythrocyte mean corpuscular volume [Entitic volume] by Auto mated count 93.1 fL 80-96 [facility] Erythrocyte mean corpuscular hemoglobin [Entitic mass] by Automated count 31.5 pg 27-33 [facility] Erythrocyte mean corpuscular hemoglobin concentration [Mass/volume] by Automated count 33.8 g/dL 32.0-36.0 [facility] width [Ratio] by Automated count 14.7 % 11.5-14.5 H [facility] Platelets [#/volume] in Blood by Automated count 154 10*3/uL 150-400 [facility] Differential cell count method - Blood [facility] Neutrophils/100 leukocytes in Blood by Automated count 71 % [facility] Lymphocytes/100 leukocytes in Blood by Automated count 13 % [facility] Monocytes/100 leukocytes in Blood by Automated count 11 % [facility] Eosinophils/100 leukocytes in Blood by Automated count 4 % [facility] Basophils/100 leukocytes in Blood by Automated count 1 % [facility] Neutrophils [#/volume] in Blood by Automated count 3.27 10*3/uL 1.8-7 .0 [facility] Lymphocytes [#/volume] in Blood by Automated count 0.59 10*3/uL 1.2-4 .0 L [facility] Monocytes [#/volume] in Blood by Automated count 0.48 10*3/uL 0-0.8 [facility] Eosinophils [#/volume] in Blood by Automated count 0.18 10*3/uL 0-0.5 [facility] Basophils [#/volume] in Blood by Automated count 0.05 10*3/uL 0-0.2 [facility] Nucleated erythrocytes/100 leukocytes [Ratio] in Blood by Automated count 0 /100{WBCs} 0-0 [facility] ID Date Data Source [id number] 05/17/2020 05:15:27 AM [facility] Name Value Range Interpretation Code Description Data Tere rce(s) Supporting Document(s) Bicarbonate [Moles/volume] in Serum 24 mmol/L 22-29 [facility] Chloride [Moles/volume] in Serum or Plasma 97 mmol/L 98-107 L [facility] Creatinine [Mass/volume] in Serum or Plasma 3.70 mg/dL 0.70-1.20 H [facility] Glucose [Mass/volume] in Serum or Plasma 172 mg/dL 70-140 H [facility] Potassium [Moles/volume] in Serum or Plasma 4.3 mmol/L 3.4-5.1 [facility] Sodium [Moles/volume] in Serum or Plasma 134 mmol/L 136-145 L [facility] Urea nitrogen [Mass/volume] in Serum or Plasma 39 mg/dL 8-23 H [facility] Anion gap 3 in Serum or Plasma 13 mmol/L 8-15 [facility] Osmolality of Serum or Plasma by calculation 291 mosm/kg 275-300 [facility] Creatinine/Urea nitrogen [Mass Ratio] in Serum or Plasma 11 [facility] Calcium [Mass/volume] in Serum or Plasma 8.0 mg/dL 8.8-10.2 L [facility] Glomerular filtration rate/1.73 sq M pre dicted among non-blacks [Volume Rate/Area] in Serum or Plasma by Creatinine-based formula (MDRD) 15 mL/min/1.73m2 >60 L [facility] Glomerular filtration rate/1.73 sq M pre dicted among blacks [Volume Rate/Area] in Serum or Plasma by Creatinine-based formula (MDRD) 17 mL/min/1.73m2 >60 L [facility] ID Date Data Source [id number] 05/17/2020 05:23:56 AM [facility] Name Value Range Interpretation Code Description Data Tere rce(s) Supporting Document(s) Heparin unfractionated [Units/volume] in Platelet poor plasma by Chromogenic method 2.18 U/ml [facility] ConfirmedCalled to and read back byNADINE DOMINIQUE RN 5A [id number] AT [id number] BY 1522 ID Date Data Source [id number] 05/17/2020 02:48:08 AM [facility] Value Range Interpretation Code Description Data Tere rce(s) Supporting Document(s) [facility] JDDGKy6iIeGZXxAb81/VWIzxLBVse2QpENxzAGu4PMzwMGJtS4YwGZO5bX8hDFH9WToFIsFqVsIpHmM4 lb [file] zno9BdhUI8NJMk2XhoWW/skT+Manufacturing Plant Technician+L/bjoaS46xAmAp [file] mary [file] 9EkAe2gZTokD/Ph/yn51/Uycgsfoq2uMZp4d/an/O/d3Z+J9dvy/eniJf/process specialist/Ozv/vTv/O0//Fu3/+Bv /uT3/4Pf+/GPfviD3/3+937nt9/82k3138k/469/65 vfePedt2+9dfPGb/61r3/tzTcOrn/1K6+/4vmDI585Gm0+3HUwc2f7J938xM3r7xwpxbE5sayab8cZG2 ruFKW/LB9+zW5qO6XWe9nBF60lU+2/nF0jzIklB0b5z2esJBf934d/1LyJvgCykCuoBahMWTqfbco0ML 37mouRl8+8Tf63oGCZ+pzXWnd1+ZYQMcb7McobesxN z+z5O7r/Ggmj3N1ufg+heHd+gZ06qTd1iklRZJ+/y0XCiXisQ/3RgR/Yoa3VC9c6W4jQ2/Z042uNeHr2 G0/0eegZvf5UV2K+/ag1i9lwA91745pRV4wE9cxeIYoV582DwmgB/6++g90z80c13I6a+a35/Sz4gd7e L10/0YvrV5u84S7P501a8idD8u8jckgn7F7dt1qBfs /zzVjT4KL9gl2SB63a141+9gnKcfb3q//z167/DqaoZABrlFD99/my67+c+glAwKosT4VPq4x5mS2cvw Z+nyAC4cm+tb9BIJynjNft/nMjOkhzS58ez94efvDWgRcIE9a22FWpHQoA7NI9BW/Xr/Wob4q9t5LX36 6/OLff38/5i8GXfpz5wCqXw/nz+oG+p7Q8rta107m2 XlMxi8rd6ElbpL3ottJ+jeHPX2+6fv2N6//Hw2OvRkbrT9pm/Li4lCs4vw69a6oz14hCRpbt3CTe3nxU lgCJqZbfq10I+69eDzVvbHmOfPrhhwJHzK/fohM8m3CzQaQnmUqjhp3tq6jFs+ea2xlG0MG0/IRnpjNX nru1+8yNUMMzt///nM+96ZT0qtI6rcy5f/u1lcKebp bjCJYifFrFZ99fqQgnbR1xv/FgT07Isx04zsepk08ebXri+0wblhwSbnwMNyw1zdDHtk/JX297hNu7Uk 8n+y9d/2qOpbt0Yhim/j0vE8u0i3y8yzT49hB8ncIJvITe+9JiW37FsbI+dCjNw87Dhhlxn1qEr+/sn7 1689bNcP/5revOxREdDc13XzZ3Ox528z8078agqr2k Shxh3bBx9e2ig+7E5ycuysUgic12079D4dJ0uy0Xr+++vesJur9/fISYi9j+74Qo2LWBRCJn74LVXa6n IFWQSXLuHrg0bwym/+w2fblEcf476ikdL1y1Ss8548opuG1bB1nw80Duw+u3v78ci6J69+5uW835ykTh E3A3rb3UurqfjzDYpv+nEfjh+ED4r0chg/z/w6NvtG +/mwi3CeWueccD7KcrcHXu4AKlL9t/jxmv8vl8woi2p39/NT+ju6hj9M1/InPhpRAh0Tm/kR8eQzKsn7 B7hLcsVzM+/X4IaJ1bPnkMpMH+8oabn00NuqndIqIaQdej02fcGgcZ2m9H1ccZ3wga+IpiKnqm98Lw/n v+2i9NIDG4jxKP6uXyyx3LvxEUwqwjuMr9mxWdyuja m+/s4crp5nPHLhpbZdbVxrnjF51uAOcMr7uBB56yeZNGX3vZl1t2oEO02ZP/v7e3e/KmM8uxk/nNd2Lb Yct2lBdB2xp18B9AB3JgKnHjQ7nFWf+OB4uVUIfyym2Q14jld1Wr6vzhy+t/wm2fd5NbI9987BEL4nPm /Vg4rAwyrkMTSX1FhqddMJ3pbmJy+vbx/9Wj7+zd+X rvSpMT/220d89ku8V1Ye8cD6wKSLzyq0/30u6rzcEUcHPVrCiV07UizsMP9m1zbn6Tz89m7CHrLT0jgc 26TU9s/1fusuBBg3s7hBp3z/CjFz5swY/h7PP7J6V/+ZWj/hU/5NffHN11tT1Ey3UDs+2RrtuciejWA/ HYrma4coZS3QWaf7cfgNNjgyS5gKcsut/uhrT1/vFf dEWm1r1axP1GEgw30HXgKBAa5qGWqZQIBUyK5jL6mzu/k9cV3Awv/i5JcCXGGaTdflJr3Y14/BdZTbkd +yb5IvuhKvhAJvpzsN4446Cl5xeZjydhbkbnZwCugau0MH61wmwg0Nw14hhwmGe+9OqetxlxbD+rqfp8 [file] AgICAgICAgICAgICAgICAgICAgICAgICAgICAgICAg ICAgICAgICAgICAgICAgICAgICAgICAgICAgICAgICAgICAgICAgICAgDQogICAgICAgICAgICAgICAg ICAgICAgICAgICAgICAgICAgICAgICAgICAgICAgICAgICAgICAgICAgICAgICAgICAgICAgICAgICAg ICAgICAgICAgICAgICAgICAgICAgICAgDQogICAgIC AgICAgICAgICAgICAgICAgICAgICAgICAgICAgICAgICAgICAgICAgICAgICAgICAgICAgICAgICAgIC AgICAgICAgICAgICAgICAgICAgICAgICAgICAgICAgICAgDQogICAgICAgICAgICAgICAgICAgICAgIC AgICAgICAgICAgICAgICAgICAgICAgICAgICAgICAg ICAgICAgICAgICAgICAgICAgICAgICAgICAgICAgICAgICAgICAgICAgICAgDQogICAgICAgICAgICAg ICAgICAgICAgICAgICAgICAgICAgICAgICAgICAgICAgICAgICAgICAgICAgICAgICAgICAgICAgICAg ICAgICAgICAgICAgICAgICAgICAgICAgICAgDQogIC AgICAgICAgICAgICAgICAgICAgICAgICAgICAgICAgICAgICAgICAgICAgICAgICAgICAgICAgICAgIC AgICAgICAgICAgICAgICAgICAgICAgICAgICAgICAgICAgICAgDQogICAgICAgICAgICAgICAgICAgIC AgICAgICAgICAgICAgICAgICAgICAgICAgICAgICAg ICAgICAgICAgICAgICAgICAgICAgICAgICAgICAgICAgICAgICAgICAgICAgICAgDQogICAgICAgICAg ICAgICAgICAgICAgICAgICAgICAgICAgICAgICAgICAgICAgICAgICAgICAgICAgICAgICAgICAgICAg ICAgICAgICAgICAgICAgICAgICAgICAgICAgICAgDQ ogICAgICAgICAgICAgICAgICAgICAgICAgICAgICAgICAgICAgICAgICAgICAgICAgICAgICAgICAgIC AgICAgICAgICAgICAgICAgICAgICAgICAgICAgICAgICAgICAgICAgDQogICAgICAgICAgICAgICAgIC AgICAgICAgICAgICAgICAgICAgICAgICAgICAgICAg HGHoTTYsMDIsOKDhSEIyRFGeUUXgUWZvGEVeSWQfHTJnBWCuEDXgGDGeKPIvWOXyDWDsWBc1U1baHBAu CQFaDX1tSKd4Gj9+XEhJIqCaLGX5wuCcoK6AKR7ax7OzGTuyIBHxf4TyRWs2GN9HNZNxRTriLL0BHCue pf2AZWFhTMSjwLWFw3ckHyPfZVI2LHErDiomYK0XDV PyI3ebtkSrHTHoNGHQPAnkGPXDGBqaEMPJROYdSKZsTwDvMCotKO9Hw7LefWU8DNl+Tf8SPQ6hj5GcYH jrVqWdPV2jbq9JKLqQKzIsM5DyrsM8ZMP3UWNcMm1OQXScWKHbtKMoYVHrVMOJCoAxE8LwcQ66OHFPPf 4+SPkorzWuHrnNYgB6HRVhl8EoBQc8UQ0VFLYgAHj3 qTMqK05ot8ZprMVyFcfeJFT2jGUvAiLYpMfploxzDUOzEXBnFl4gOgKdKwLvLNN8VXXaUC9cLZcuLD5K QPC4FFvbIYVmVCHuB7lYYjYiHHSrFgPyeLuiZB5BAnBiG8IazgVdxLDjYuHaKRSZBo9+DQplbmRvYmoN MtW9SCTat5UgIHv4VF6ZFNCmVNixBQ5XHALoaA8nVW wnKS2GFbTyCVSfSRKJSrUdG55uyLCmPGp3Q5EcKcEfLSWpEowjNIBcROldIaSzLBFpLtGyLKhlTP3+ID 4+KZvaJY7BQVdqqrOvEZVuGi9XHJNfBIPzYQ7sGSCiJOSdR6O3aLcwATTGThQnW0kstjtrIK8oGPKuT5 10rDvsadFeHREvJSBhSz0RZDBlCNF4KWWiiFQbIwXz HHRBVSvfQG2YnLCuVMT5lO1zVUvoTRGwSRKgB1fSWgKooKrfBM01kJtdynVuiASmOOu+Rd7VMK2rd4Jt PRo1zuZxWMerJUI6BNtwAIUoZNBbTNPiPFH4ELL9DLNTHkCnQHTxFEQtMXftTEEiHEVgpi9FFNXzOXR2 PXR2VERmLORuFDGpIDprUHRsKTZ2DKRuBTYqUEWmVJ 7HQqPxHNYzNXUtZYuaMYBfGKNvqt6LHUXpGLViRlzwBKWnBCGgJSZpQUnfOZGqALB5CRQ9ZJHfKTCmSD 0IAoQwBIZnUPYjEYVgYVDkSFCxyq6OTZFbXVYmRxT5PNSuNPIfYNNxBJbwTTNtAVDeKTT2MSYzWRScSC 9SBeMuKWPsMNKxPrEwNCKjVWHist7AMMEjSVBqIep4 WRGhWZWvZYYaHDswJABsRIRyGSs5WRMnVMAdAU1NNkOqQHDuNMU3ZiwoVKYlWNZuvh8ERHFiNITfJVSj TOHcECZhKWEoAYtbCKWqQJT8DtM1GHDsAREtTN7AYzOdYLYcZZXlXoBgLNMrYPUlqk4CWMImLYIkNiQ8 ZVGxIEGjFIFhHEyyTQAfHUA8QxA3FKDkUSTzSE1ICb DgGBLlCNz3RcLsDCUeLWCayn1XVDBiZEIwWilqDgDhVMVoVHRpOXbxPPSlZBG9OSL9MFViFDYoQU7ZNr MvHLQmQyrmETYfBPWrWWYbcx6ZNFEiWRVrWGlxAHFoCRZtJRTaAFmqLEGvZUM7VRL1RXOdHIKoJO9AZr RvNWDtCePfBOkjAOHnJZFtwl8OOPOwGYOiZRVdSoQr RCDeJEDoNCrcPOUvEUVtNBIjXYFkMAXxYO1JOeTaRRCyOWL2JftqSQLmRVEiwi5FBTMrVKZ3Sll1BFAa QMCnZFCdBLdoFTRkLML3ZdOhOKSfEEJuVS4ASqGqBFSwUBNlKrnmZHIwEMHijx4CTCBoCCN6COqyAAZr CTKgLSTqQAhnMSAaOLR2KaD9OWYdDONsHT8SOzArTA PsQIVrJataBXKdJCOxao0FVDFpNDF1QkX5JDAsRSKcECEeJAy1ltRxlKAlNGk9ZR0WN4LfxoQlSfWELy 5Ta645EGF6IYOhUj9GN3dyZw1wFBVqAOVSJo5XBUi0ARL4BZO8RfJtKxThUNYhHzS5NoK0OCL9Q2CsZO liMzQ+VZlaOtw6GVoeCVVkKTUrVHKlXQjmOZczLCht BmY0OWZeVV9jDZYMOd1+NDoyoUOkcQuyMECBDpT9FsBbSHdpEUBRMm6I ID Date Data Source [id number] 05/16/2020 09:53:03 PM [facility] Name Value Range Interpretation Code Description Data Tere rce(s) Supporting Document(s) Glucose [Mass/volume] in Capillary blood by Glucometer 219 mg/dL 70- 140 H [facility] ID Date Data Source [id number] 05/16/2020 07:58:28 PM [facility] Name Value Range Interpretation Code Description Data Tere rce(s) Supporting Document(s) Leukocytes [#/volume] in Blood by Automated count 4.2 10*3/uL 4-10 [facility] Erythrocytes [#/volume] in Blood by Automated count 3.25 10*6/uL 4.6- 6.1 L [facility] Hemoglobin [Mass/volume] in Blood 10.2 g/dL 13.5-18 L [facility] Hematocrit [Volume Fraction] of Blood by Automated count 30.4 % 4 1-53 L [facility] Erythrocyte mean corpuscular volume [Entitic volume] by Auto mated count 93.5 fL 80-96 [facility] Erythrocyte mean corpuscular hemoglobin [Entitic mass] by Automated count 31.4 pg 27-33 [facility] Erythrocyte mean corpuscular hemoglobin concentration [Mass/volume] by Automated count 33.6 g/dL 32.0-36.0 [facility] [Ratio] by Automated count 14.8 % 11.5-14.5 H [facility] Platelets [#/volume] in Blood by Automated count 149 10*3/uL 150-400 L [facility] Differential cell count method - Blood [facility] Neutrophils/100 leukocytes in Blood by Automated count 75 % [facility] Lymphocytes/100 leukocytes in Blood by Automated count 10 % [facility] Monocytes/100 leukocytes in Blood by Automated count 10 % [facility] Eosinophils/100 leukocytes in Blood by Automated count 4 % [facility] Basophils/100 leukocytes in Blood by Automated count 1 % [facility] Neutrophils [#/volume] in Blood by Automated count 3.17 10*3/uL 1.8-7 .0 [facility] Lymphocytes [#/volume] in Blood by Automated count 0.44 10*3/uL 1.2-4 .0 L [facility] Monocytes [#/volume] in Blood by Automated count 0.43 10*3/uL 0-0.8 [facility] Eosinophils [#/volume] in Blood by Automated count 0.17 10*3/uL 0-0.5 [facility] Basophils [#/volume] in Blood by Automated count 0.03 10*3/uL 0-0.2 [facility] Nucleated erythrocytes/100 leukocytes [Ratio] in Blood by Automated count 0 /100{WBCs} 0-0 [facility] ID Date Data Source [id number] 05/16/2020 05:27:02 PM [facility] Name Value Range Interpretation Code Description Data Tere rce(s) Supporting Document(s) Glucose [Mass/volume] in Capillary blood by Glucometer 146 mg/dL 70- 140 H [facility] ID Date Data Source [id number] 05/16/2020 04:11:00 PM EST [facility] Name Value Range Interpretation Code Description Data Tere rce(s) Supporting Document(s) SARS-CoV-2 RNA 2019 nCoV Real-Time RT-PCR: NOT DETECTED [facility] This lab was ordered by [facility] and reported by [facility]. 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[facility] Patient has symptoms related to [facility] When did you start to experience these symptoms [Date and time] [Phen X] [facility] Patient was hospitalized because of this condition [facility] patient was admitted to ICU for [facility] Patient resides in a congregate care setting [facility] status [employer] ID Date Data Source [id number] 05/16/2020 03:42:26 PM [facility] Value Range Interpretation Code Description Data Tere rce(s) Supporting Document(s) Glucose [Mass/volume] in Capillary blood by Glucometer 106 mg/dL 70- 140 [facility] ID Date Data Source [id number] 05/16/2020 03:17:58 PM [facility] Name Value Range Interpretation Code Description Data Tere rce(s) Supporting Document(s) [facility] JVCNEc8iTdBTZiInp5VqBtKtBOIgVS2zbkd3U1E7nFGaZ3GrzVWxl1xhJ0TaS3WiTSNeODJETM6AxQMo jb2 [file] y3cjwcqw/qy1+//fbD+9+9+/oksana+0//+fY66hwg15mdx/evp and chief operating officer/Yd3bx/fffr4/x2xoei0U6epz4F7d636ES 2liPFo2VTVv/99/fbX73/w4UZXAa+9//bD3/jr+0Ps f/7z54tB54/9+Pb+d4favrfx18d//esx6a5581e8qk+8vay/ePf1tx/hlgrxk8495ioc64/7+7/xa5K1 /PALI766+M3r7u+++qef/pln6Lr/7F9+9v4K73wgvvWhGt++7vQv7z/55m7Mf7+/xgb7geM9M2h+4W/8 zO0q3D/i9zd3864/91p2E13b53Mze29+5dEVu8c25x 1nily92yu//fDLv/Gft/t2/+dXP/753//4lz/98Ie3//N/v33z44//87//8Jf/8cMP//D23ff/869/fP vN93/4/tUQo/3b37/9+Oe39vP+c3+e4vUQY1s8/eab//Ji/HTS/cNqf/rTz/+Zj42SXratHo/qw6UpcA Biicp7y/8XoC+fHnD/4/PWR4gK53BX68h/ZvcfezY8 S2l6C5JPUy6+nuurV59/m37tZO5Ao//Bxx/+/Ye//XMa26v2l4/21cvilM702+HdZxVtn/0CZgZj0q4P c2I285/3GUc63t317vptbmFCjMMzj9Bj3/3w57/+49tfvv/r57/++oy+RVKd+4/+xFfk/1rY//HT3z7Q bz6+/fHPf/3hL//39//vC436PDheK02/b2FyjZ/+/A H/+eN3b3/4X69H/+OPf/0n05kTrv/8fvzEg/3zp5//31lr1v5iH8A6q/y86/7s1/0JPV+xM2KjI4p0H+ xCLBaPB/loda3Sn6484Fia8a4/f374z/60ue2VUjuN/q763PMb1fy500/5bKb5/EV88/1/iDT552jhU3 //r99//59//P7P//X/n2b4+OOPf/riuhMC/+RPzjP/ +sfff/H6vHCo+vLWhQXuP/j0w+//+5//+PvXbb54++41/7z/8P4nf+wqHvHH//nXV9/5wxe/+PjlL//1 qy8//vL9l//11u4i+PN/+1552q16+z2MyrCaS7///5/bCs34lejE/ub7/+oGW3t83s/f+I0yQBlBX6/d 4z4/dm/yDeQW3i616dOXmce1xxx8tfW+/rpLji0rkW sLGB6v++OPT86y4hpr3dRir7nUtasL/n0xqKk1XaIdMZZ1gpTkjTuhtpBpSskTHCzfZHNnVeh9FC5QtF JnPTDiT5I4AGOhjh5uEJHhIZYojGWbRkMsEXCNGZ3WcYYeSZ3GIPy8EJVkBIVmBqEaIGDncqB9BUXkMV UlCIWjP8ZmroSurHBdARIxBc5+FJ8xp9HkRkZtBMUm Cdu7ZS6TuAYxRO3TlWYsvG6kyjPpQ604opJuTNBoEeyrc4YxVQlhZOSRBS2MWYS4HWS2IBQoTu0+ZW5k k1TpAiFqZWKkAmz2GN3XsKOno3RtEA7XC0RiCVWcXBEUXZH1f3CwWBWwojlvobcgA6HfVTR7yU9aTPL6 NRIiEBmmGXFkLTOyFKM0HJjzGHprUDDmDBTbFCZhDD GdBXo4pXKhRW3GP6FcDECbZGPLRHLydjEyKz7gDBAYQl1OY6HMRJWECLuGPNYJUXC6QNH7XURbQC7CmR KmXZZ2LZcAOXUGIHwGONnrXhRbi5I4KXRpV6KjTJXeveOgAHENMKnmNkddZT5qlXyxozyjH2RdnPXfFM JVIIPgICVcHQOrQUTpR6Hfz1H9J5YaZUiFLNAMIVxD AUyuTmS6a92mjaDJQLOaISItNY5+CR0io0RqCo3AFMOeQI3vmzg7WA1BgWQrOT7NSJcyobXcV8fhdlFu UnGpFXWWEI1rH6LhqL28AIF+PgEsDG4jrie2rgTwZrAaPCEpJDRwNISlKDvxKNGgRRWcVXLlEXE6KIO7 JVJeCiQyCLRcTbN5EjjwVZHmDGLlnxKAGKGfXVA5CC AsMMEjBEShWPAmQStoWYHsDZJ1CuFoKUYjMZTzXJ4oPtUaPPMiUWWgMTTvSvM7RjOnEfOHGNKaZOUiZX GiIyNoJAWnHOGqXWkfXHHgRDCgYIz1GGFmJIPdFA2bWsJwZOUgYBVgKEJwDCHeZAMdccWZSXYlWRBbHL F9TDCcAQMgSJRfHPdvXRQwIEFmQGQ3QLTmFQGiYM2x UtQeKFCaSQR8QwXlTJBkJLGdduLHNMArAVDeQZU2EDRvGTWgFZKhJPbcQMDwIPHwKoE3JTJxSHNqLA0n SeIsZTYoDNZ1VBUwKOExMUSvmeOSUCTeNHPzKUh8QpGpHWCaIKLhEKvxIWTzNJJcRFhxXQScEKYrKK0k AmVlONSpRAZlOFAcWFXsHOBuymAANSMdRFNcUGA9Zt AeHOVaVWYqJRprAGWqAUTgDXJ4JPWvNQXqTB7vSyZoNTAnBeOwWhOyGMJmEIErtuZEBVPsCIDjXIClDC OsPOJkNQNjETvkVBOiQQNlWuV7JJNyVJZaFU5bRuYfOXCwMMY1EYXrXCOkERHctnVTSAClMKVgRRHpTT C5RNXgRDAoQYg1lhFbkUFqAcy8Ih2JsGlwQQL0Yx9C upIbZGQvZLHUBg6Mf823TRNzGLVFWyo+SkmefWHjnWnzMVLBTxP6SzGTOBPJX7S= ID Date Data Source [id number] 05/16/2020 02:09:36 PM [facility] Name Value Range Interpretation Code Description Data Tere rce(s) Supporting Document(s) Glucose [Mass/volume] in Capillary blood by Glucometer 104 mg/dL 70- 140 [facility] ID Date Data Source [id number] 05/16/2020 12:44:56 PM [facility] Name Value Range Interpretation Code Description Data Tere rce(s) Supporting Document(s) [facility] DWASAx2uTkFFSmAi29/KAHmiYUKcm6KjAHcsAVq4KWenWFNtN5DnYFM0iU5yHBJ4WMySMbJuLhDwRzO5 lbm [file] eS6RMTtM5Cak/IGoK5nZltQfSvyJ4TGOtSVURU7+H5PGD0djGygR/uxu6LOEk/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 [file] JaPlWVgaS5PtGJwnRzLvGE8CId0ZAgP2LOS5xGBlFj4ATBQjRnGMRwZwNJ2NAYu= ID Date Data Source [id number] 05/16/2020 12:28:51 PM [facility] Value Range Interpretation Code Description Data Tere rce(s) Supporting Document(s) Glucose [Mass/volume] in Capillary blood by Glucometer 161 mg/dL 70- 140 [facility] ID Date Data Source [id number] 05/16/2020 08:11:46 AM [facility] Name Value Range Interpretation Code Description Data Tere rce(s) Supporting Document(s) Glucose [Mass/volume] in Capillary blood by Glucometer 150 mg/dL 70- 140 [facility] ID Date Data Source [id number] 05/16/2020 07:02:32 AM [facility] Name Value Range Interpretation Code Description Data Tere rce(s) Supporting Document(s) Leukocytes [#/volume] in Blood by Automated count 5.1 10*3/uL 4-10 [facility] Erythrocytes [#/volume] in Blood by Automated count 3.13 10*6/uL 4.6- 6.1 L [facility] Hemoglobin [Mass/volume] in Blood 10.0 g/dL 13.5-18 L [facility] Hematocrit [Volume Fraction] of Blood by Automated count 29.6 % 4 1-53 L [facility] Erythrocyte mean corpuscular volume [Entitic volume] by Auto mated count 94.7 fL 80-96 [facility] Erythrocyte mean corpuscular hemoglobin [Entitic mass] by Automated count 31.9 pg 27-33 [facility] Erythrocyte mean corpuscular hemoglobin concentration [Mass/volume] by Automated count 33.7 g/dL [facility].0-[facility] [Ratio] by Automated count 15.2 % 11.5-14.5 H [facility] Platelets [#/volume] in Blood by Automated count 150 10*3/uL 150-400 [facility] Differential cell count method - Blood [facility] Neutrophils/100 leukocytes in Blood by Automated count 66 % [facility] Lymphocytes/100 leukocytes in Blood by Automated count 20 % [facility] Monocytes/100 leukocytes in Blood by Automated count 9 % [facility] Eosinophils/100 leukocytes in Blood by Automated count 4 % [facility] Basophils/100 leukocytes in Blood by Automated count 1 % [facility] Neutrophils [#/volume] in Blood by Automated count 3.39 10*3/uL 1.8-7 .0 [facility] Lymphocytes [#/volume] in Blood by Automated count 0.99 10*3/uL 1.2-4 .0 L [facility] Monocytes [#/volume] in Blood by Automated count 0.47 10*3/uL 0-0.8 [facility] Eosinophils [#/volume] in Blood by Automated count 0.20 10*3/uL 0-0.5 [facility] Basophils [#/volume] in Blood by Automated count 0.04 10*3/uL 0-0.2 [facility] Nucleated erythrocytes/100 leukocytes [Ratio] in Blood by Automated count 0 /100{WBCs} 0-0 [facility] ID Date Data Source [id number] 05/16/2020 07:30:36 AM [facility] Name Value Range Interpretation Code Description Data Tere rce(s) Supporting Document(s) Bicarbonate [Moles/volume] in Serum 17 mmol/L 22-29 L [facility] Chloride [Moles/volume] in Serum or Plasma 99 mmol/L 98-107 [facility] Creatinine [Mass/volume] in Serum or Plasma 5.14 mg/dL 0.70-1.20 H [facility] Glucose [Mass/volume] in Serum or Plasma 174 mg/dL 70-140 H [facility] Potassium [Moles/volume] in Serum or Plasma 4.9 mmol/L 3.4-5.1 [facility] Sodium [Moles/volume] in Serum or Plasma 133 mmol/L 136-145 [facility] Urea nitrogen [Mass/volume] in Serum or Plasma 77 mg/dL 8-23 H [facility] Anion gap 3 in Serum or Plasma 17 mmol/L 8-15 H [facility] Osmolality of Serum or Plasma by calculation 303 mosm/kg 275-300 H [facility] Creatinine/Urea nitrogen [Mass Ratio] in Serum or Plasma 15 [facility] Calcium [Mass/volume] in Serum or Plasma 8.7 mg/dL 8.8-10.2 [facility] Glomerular filtration rate/1.73 sq M pre dicted among non-blacks [Volume Rate/Area] in Serum or Plasma by Creatinine-based formula (MDRD) 10 mL/min/1.73m2 >60 L [facility] Glomerular filtration rate/1.73 sq M pre dicted among blacks [Volume Rate/Area] in Serum or Plasma by Creatinine-based formula (MDRD) 11 mL/min/1.73m2 >60 L [facility] ID Date Data Source [id number] 05/15/2020 09:07:34 PM [facility] Value Range Interpretation Code Description Data Tere rce(s) Supporting Document(s) Glucose [Mass/volume] in Capillary blood by Glucometer 193 mg/dL 70- 140 [facility] ID Date Data Source [id number] 05/15/2020 07:19:27 PM [facility] Name Value Range Interpretation Code Description Data Tere rce(s) Supporting Document(s) Leukocytes [#/volume] in Blood by Automated count 4.9 10*3/uL 4-10 [facility] Erythrocytes [#/volume] in Blood by Automated count 2.99 10*6/uL 4.6- 6.1 L [facility] Hemoglobin [Mass/volume] in Blood 9.4 g/dL 13.5-18 L [facility] Hematocrit [Volume Fraction] of Blood by Automated count 28.0 % 4 1-53 L [facility] Erythrocyte mean corpuscular volume [Entitic volume] by Auto mated count 93.7 fL 80-96 [facility] Erythrocyte mean corpuscular hemoglobin [Entitic mass] by Automated count 31.6 pg 27-33 [facility] Erythrocyte mean corpuscular hemoglobin concentration [Mass/volume] by Automated count 33.7 g/dL 32.0-36.[facility] [Ratio] by Automated count 14.8 % 11.5-14.5 H [facility] Platelets [#/volume] in Blood by Automated count 142 10*3/uL 150-400 L [facility] Differential cell count method - Blood [facility] Neutrophils/100 leukocytes in Blood by Automated count 71 % [facility] Lymphocytes/100 leukocytes in Blood by Automated count 15 % [facility] Monocytes/100 leukocytes in Blood by Automated count 11 % [facility] Eosinophils/100 leukocytes in Blood by Automated count 3 % [facility] Basophils/100 leukocytes in Blood by Automated count 0 % [facility] Neutrophils [#/volume] in Blood by Automated count 3.52 10*3/uL 1.8-7 .0 [facility] Lymphocytes [#/volume] in Blood by Automated count 0.72 10*3/uL 1.2-4 .0 L [facility] Monocytes [#/volume] in Blood by Automated count 0.53 10*3/uL 0-0.8 [facility] Eosinophils [#/volume] in Blood by Automated count 0.13 10*3/uL 0-0.5 [facility] Basophils [#/volume] in Blood by Automated count 0.02 10*3/uL 0-0.2 [facility] Nucleated erythrocytes/100 leukocytes [Ratio] in Blood by Automated count 0 /100{WBCs} 0-0 [facility] ID Date Data Source [id number] 05/15/2020 05:18:57 PM [facility] Value Range Interpretation Code Description Data Tere rce(s) Supporting Document(s) Glucose [Mass/volume] in Capillary blood by Glucometer 87 mg/dL 70- 140 [facility] ID Date Data Source [id number] 05/15/2020 12:09:56 PM [facility] Value Range Interpretation Code Description Data Tere rce(s) Supporting Document(s) Glucose [Mass/volume] in Capillary blood by Glucometer 233 mg/dL 70- 140 H [facility] ID Date Data Source [id number] 05/15/2020 12:23:25 PM [facility] Value Range Interpretation Code Description Data Tere rce(s) Supporting Document(s) Platelet aggregation ADP induced [Units/volume] in Platelet rich plasma 325 PRU <208 H [facility] (NOTE)<208 PRU Therapeutic range fo r P2Y12 [id number] PRU Low response to P2Y12 inhibitors ID Date Data Source [id number] 05/15/2020 12:34:26 PM [facility] Value Range Interpretation Code Description Data Tere rce(s) Supporting Document(s) Creatine kinase [Enzymatic activity/volume] in Serum or Plasma 35 U /L 20-200 [facility] ID Date Data Source [id number] 05/15/2020 08:28:03 AM [facility] Value Range Interpretation Code Description Data Tere rce(s) Supporting Document(s) Glucose [Mass/volume] in Capillary blood by Glucometer 154 mg/dL 70- 140 [facility] ID Date Data Source [id number] 05/15/2020 04:42:13 AM [facility] Value Range Interpretation Code Description Data Tere rce(s) Supporting Document(s) Leukocytes [#/volume] in Blood by Automated count 4.8 10*3/uL 4-10 [facility] Erythrocytes [#/volume] in Blood by Automated count 2.89 10*6/uL 4.6- 6.1 L [facility] Hemoglobin [Mass/volume] in Blood 9.3 g/dL 13.5-18 L [facility] Hematocrit [Volume Fraction] of Blood by Automated count 26.7 % 4 1-53 L [facility] Erythrocyte mean corpuscular volume [Entitic volume] by Auto mated count 92.5 fL 80-96 [facility] Erythrocyte mean corpuscular hemoglobin [Entitic mass] by Automated count 32.1 pg 27-33 [facility] Erythrocyte mean corpuscular hemoglobin concentration [Mass/volume] by Automated count 34.7 g/dL 32.0-36.0 [facility] width [Ratio] by Automated count 14.7 % 11.5-14.5 H [facility] Platelets [#/volume] in Blood by Automated count 128 10*3/uL 150-400 L [facility] Differential cell count method - Blood [facility] Neutrophils/100 leukocytes in Blood by Automated count 81 % [facility] Lymphocytes/100 leukocytes in Blood by Automated count 8 % [facility] Monocytes/100 leukocytes in Blood by Automated count 11 % [facility] Eosinophils/100 leukocytes in Blood by Automated count 0 % [facility] Basophils/100 leukocytes in Blood by Automated count 0 % [facility] Neutrophils [#/volume] in Blood by Automated count 3.88 10*3/uL 1.8-7 .0 [facility] Lymphocytes [#/volume] in Blood by Automated count 0.39 10*3/uL 1.2-4 .0 L [facility] Monocytes [#/volume] in Blood by Automated count 0.54 10*3/uL 0-0.8 [facility] Eosinophils [#/volume] in Blood by Automated count 0.01 10*3/uL 0-0.5 [facility] Basophils [#/volume] in Blood by Automated count 0.01 10*3/uL 0-0.2 [facility] Nucleated erythrocytes/100 leukocytes [Ratio] in Blood by Automated count 0 /100{WBCs} 0-0 [facility] ID Date Data Source [id number] 05/15/2020 04:59:14 AM [facility] Name Value Range Interpretation Code Description Data Tere rce(s) Supporting Document(s) Bicarbonate [Moles/volume] in Serum 21 mmol/L 22-29 L [facility] Chloride [Moles/volume] in Serum or Plasma 97 mmol/L 98-107 L [facility] Creatinine [Mass/volume] in Serum or Plasma 3.87 mg/dL 0.70-1.20 H [facility] Glucose [Mass/volume] in Serum or Plasma 200 mg/dL 70-140 H [facility] Potassium [Moles/volume] in Serum or Plasma 4.7 mmol/L 3.4-5.1 [facility] Sodium [Moles/volume] in Serum or Plasma 131 mmol/L 136-145 L [facility] Urea nitrogen [Mass/volume] in Serum or Plasma 62 mg/dL 8-23 H [facility] Anion gap 3 in Serum or Plasma 13 mmol/L 8-15 [facility] Osmolality of Serum or Plasma by calculation 295 mosm/kg 275-300 [facility] Creatinine/Urea nitrogen [Mass Ratio] in Serum or Plasma 16 [facility] Calcium [Mass/volume] in Serum or Plasma 8.6 mg/dL 8.8-10.2 L [facility] Glomerular filtration rate/1.73 sq M pre dicted among non-blacks [Volume Rate/Area] in Serum or Plasma by Creatinine-based formula (MDRD) 14 mL/min/1.73m2 >60 L [facility] Glomerular filtration rate/1.73 sq M pre dicted among blacks [Volume Rate/Area] in Serum or Plasma by Creatinine-based formula (MDRD) 16 mL/min/1.73m2 >60 L [facility] ID Date Data Source [id number] 05/14/2020 07:14:22 PM [facility] Name Value Range Interpretation Code Description Data Tere rce(s) Supporting Document(s) Color of Urine [facility] Clarity of Urine [employer] Specific gravity of Urine by Refractometry automated 1.018 1.003 -1.030 [facility] pH of Urine by Automated test strip 5.0 5.0-8.0 [facility] Protein [Mass/volume] in Urine by Automated test strip [facility] Glucose [Mass/volume] in Urine by Automated test strip 150 mg/dL Neg [facility] Ketones [Mass/volume] in Urine by Automated test strip Neg [facility] Bilirubin.total [Presence] in Urine by Automated test strip Negative [facility] Hemoglobin [Presence] in Urine by Automated test strip Neg [facility] Leukocyte esterase [Presence] in Urine by Automated test strip Negative [facility] Nitrite [Presence] in Urine by Automated test strip Negati ve [facility] Leukocytes [#/area] in Urine sediment by Automated count 1010 /HPF 0 -5 H [facility] Erythrocytes [#/area] in Urine sediment by Automated count 10 /HPF 0-3 H [facility] Leukocyte clumps [#/area] in Urine sediment by Automated count None [facility] Bacteria [#/area] in Urine sediment by Automated count Non e [facility] Mucus [#/area] in Urine sediment by Microscopy low power field None [facility] ID Date Data Source [id number] 05/16/2020 11:11:10 AM [facility] Service Cmnt XXX-Imp : NoneMicroorganism XXX Cult : Greater than 100,000 col/mlKlebsiella oxytocaATTENTION This species is always resistant to ampicillin and ticarcillin. Name Value Range Interpretation Code Description Data Tere rce(s) Supporting Document(s) ID Date Data Source [id number] 05/14/2020 06:27:32 PM [facility] Name Value Range Interpretation Code Description Data Tere rce(s) Supporting Document(s) Leukocytes [#/volume] in Blood by Automated count 4.6 10*3/uL 4-10 [facility] Erythrocytes [#/volume] in Blood by Automated count 3.23 10*6/uL 4.6- 6.1 L [facility] Hemoglobin [Mass/volume] in Blood 10.4 g/dL 13.5-18 L [facility] Hematocrit [Volume Fraction] of Blood by Automated count 29.8 % 4 1-53 L [facility] Erythrocyte mean corpuscular volume [Entitic volume] by Auto mated count 92.3 fL 80-96 [facility] Erythrocyte mean corpuscular hemoglobin [Entitic mass] by Automated count 32.3 pg 27-33 [facility] Erythrocyte mean corpuscular hemoglobin concentration [Mass/volume] by Automated count 34.9 g/dL 32.0-36.0 [facility] width [Ratio] by Automated count 14.6 % 11.5-14.5 H [facility] Platelets [#/volume] in Blood by Automated count 136 10*3/uL 150-400 L [facility] Differential cell count method - Blood [facility] Neutrophils/100 leukocytes in Blood by Automated count 93 % [facility] Lymphocytes/100 leukocytes in Blood by Automated count 5 % [facility] Monocytes/100 leukocytes in Blood by Automated count 2 % [facility] Eosinophils/100 leukocytes in Blood by Automated count 0 % [facility] Basophils/100 leukocytes in Blood by Automated count 0 % [facility] Neutrophils [#/volume] in Blood by Automated count 4.24 10*3/uL 1.8-7 .0 [facility] Lymphocytes [#/volume] in Blood by Automated count 0.24 10*3/uL 1.2-4 .0 L [facility] Monocytes [#/volume] in Blood by Automated count 0.09 10*3/uL 0-0.8 [facility] Eosinophils [#/volume] in Blood by Automated count 0.00 10*3/uL 0-0.5 [facility] Basophils [#/volume] in Blood by Automated count 0.00 10*3/uL 0-0.2 [facility] Nucleated erythrocytes/100 leukocytes [Ratio] in Blood by Automated count 0 /100{WBCs} 0-0 [facility] ID Date Data Source [id number] 05/14/2020 05:28:19 PM [facility] Name Value Range Interpretation Code Description Data Tere rce(s) Supporting Document(s) Glucose [Mass/volume] in Capillary blood by Glucometer 169 mg/dL 70- 140 [facility] ID Date Data Source [id number] 05/14/2020 02:32:21 PM [facility] Name Value Range Interpretation Code Description Data Tere rce(s) Supporting Document(s) [facility] XNNLOq7zLiRGTmZge6IgCmUrBYKeII6yjld5F2X9yXXeR8TzzFKnd7rqT9PrG4BcCKZdFJYRAM2InNLg jb2 [file] /MD97L5/5RCsdn31f/f/7f13f+MzUt39/R6KH684wem2f9/hy1426dl8+vuPX75+42cIx0b96wEKb//6 Xz7/4qEad46/99L+5p7yc4r7O27/++X7X4RR//Xvf3 y4UFUmhfxBpw622+37z7/62Lsen217W/yLt09v//zut+4tRekeuell6201Gngp+G4vR5LK0vMf4f//1d /91R0A07/986/ff3i7e/vu4+qwbz9pF0a23sx5y98vv/X5Dz+9TJxOm//27bsvf/Xh/oqiG1d2/ut3H3 71/zA8r7k25Wy/+rA0AI4dUsdI//ynf//9X/74w7+9 /ff/8/bb3//hD9//5S8/fP+Hf6r56jp//o8WC5yFVD7ea//25z+9tZ/rz+Uc7KvHJ2eO3g+//quxEwVU 90XV/vjHn/1Ba9K1LRliN/zH3wJv/rJZL9wnr/7/HOVh1zZsg6v+cFFZ8j5eks0qB20TvHoB/+ry9mta w4X/6/XSpMl2uaoaPMm8F/Dxh3//5OOu61aslh82rk oXb19/86t3X/plutt5PNyAe0C/aN5Rpm3a8chjkf4Aw7/9nLPtRfpVE8oM4GsU1ddo/vSf//j2l+//84 nzBg95jH/LY3/uD/2Rdyi+erD/+tNrb+jbj2+//9N//vCX//IHyz5ggp6397uq4q3Pw4o/vfwG/+njd2 //9j9ff/33f/5NH58rM+r02Nn4rHd4r72//6dPv+Nt DwrB85y+aFqoDo7S340mSvO/lOsnhn/EJpRl09hI/dRuD/Ttzz7+7NPb9//7h//479gx1GDQlyQeBal5 Jt4cb//eYp4gjS16C30+/g8/ur3rR+jn3//P333/H7///k9//f3HDB///Oc/fnbdRxb/5CP7P3/92964 4zaTbnEgNP4n4/j0w+/+3z/9/nevn/nszecaP/lkkI zkJ//kI85Y836++/ab13r6+btPv/7rXw3/pVb/r1+Pj+8+8lU1vf0/9m7ft8Ks10fD/Nvv/50o4kBhu/ /+6nAdAb4jOO07K4s5zl/ev4TXm/n7Op08ap1jf47iMjmVyx/hc5mKUxzT7uSj7144/syzgJ659c5Cr4 lvVts/4H1TLh2+cLhcovQpaBAvCR6ZYX1qh2GeQeR5 YKNht7ZeINyuCLe7wIWbWXqycqAdz6QgsqauD2Cdw6BuDqTpBUWbUrWwEfk5QCLjTeP5yIJiOmWgBEHz O4FpFLNdXuT4LqPpZWFRZB8LJQPvjyHeCsDfNAN+GxUbOT3ffciuRDNje7LsMNytWBzzVRApW3Y1yWdh LWVuL0NbvS19HHCqE2XwlcN9UKU6XSFpHkVyVJSraI AxOSAwIFI+TvIzNX0dfowdNSQwg7HsNUenUFW8fD2jXBaFCHJVSHdKTGunFdQ0y47wwoTEBKWeAMLpGO 8KjiRwlQaccoAqmAYxVKF7VxSuGEYvEBHrDXZpIRZCJDReMZMsQRPnSHWkM2VueWxzHZiWTRLGVEeQSN oaStBdh9M8ZCBejzJUAR8WSRnHYpnqM2sROObLQXOa FGOfCqC5ORJfF2VuhmQhdMYiLRTBFRhiOwwuIVRzsZ8lvVueE3MeVGW0x2GmJS0ZI2ZcYHRzQIUQYOP1 w2SkVLZmufyguypdLbLkBJCiTJOuMYZkNG1Vax7ysIPrqeNpBLOSTTioBqyeBR9ayOzfwzndN0BcjFSh KSA+XiHmWF2ori0+RjJpRKMeZdp9ZJJoHVtlLLGsGQ BxRPHdF5bdGLWePnNnQYEjJeJdBT7Jp4VwoPBtCv6qayWuLtaOsVQtOrjtRAImYIIaZIXmJlEMUVRoKD IgMRMwZOW1NUOoFEQxVAegXGRoJRFkPlZjIZOrHHVfFO0tHwUmLZXqNrN7OiSzIXOzHNPjirZPQUYhBB N6QfA3JJMzOBUgTLTgGOpfLZVcHOMhBHBhUQV3AME2 FRYgSwDjWQJlZNGuPDEdMXLyHDHukxLOGNErXZRfJBD5BZRsRNZbPFZwUHpiTSAoOOCyDCwdDVDyIRCr HJ5rFuXiRNRfPEPqYPirIMAjPEJitbJWCJRmWAHfYQFbLLZzYGUkIRUzLTxaZTJtJWRkYDDxCZHuSEUq RX6rOsJnGDDxFGM4RJGzVBDoFQRnbsEOFMVeXQGvMJ e4RCHdUYXgIHZpIUbsBTAgIJJmATF7WAMjPYDrDO7zYaApEZAiRUZ7AtQrRXTdZMOqscXDAPPbDNRnNA F1UrRjYIQrIFJcXVflUVFwUIQdHZpoHKIdKROkNH6uLvFyYNMiROBrIUnnBEMbWRZijcIBWKBaGQQbCD DdAlSjXKKkDFTiDJoeWMOcALVhGzO6QOAmEVOkBJ6g YoTcBEMiFNB8OOniEUQrBVXyuxVJYNYgLXLgZWwoCBPuMZXzLTDwBTkiPEHuSULqMAJ1ETEhEUTvDC6r HwUzJCWcWXVkVWGkJeN7BkTwBoPXzVFvdEitbhf2JEdhU2z0HGJbQWyvQS2qkhEyMWXdYvqyBa4xdUD7 ZHFeLhpHUh4Jf5IsusK4xgTiRdAdAYV1SzLoVP1L ID Date Data Source [id number] 05/14/2020 02:30:41 PM [facility] Value Range Interpretation Code Description Data Tere rce(s) Supporting Document(s) Glucose [Mass/volume] in Capillary blood by Glucometer 156 mg/dL 70- 140 [facility] ID Date Data Source [id number] 05/14/2020 12:21:35 PM [facility] Value Range Interpretation Code Description Data Tere rce(s) Supporting Document(s) Kaolin activated time [Units/volume] in Blood 246 [facility] ID Date Data Source [id number] 05/14/2020 11:46:11 AM [facility] Value Range Interpretation Code Description Data Tere rce(s) Supporting Document(s) Kaolin activated time [Units/volume] in Blood 197 [facility] ID Date Data Source [id number] 05/14/2020 08:54:47 AM [facility] Value Range Interpretation Code Description Data Tere rce(s) Supporting Document(s) Glucose [Mass/volume] in Capillary blood by Glucometer 189 mg/dL 70- 140 [facility] ID Date Data Source [id number] 05/14/2020 04:12:04 AM [facility] Value Range Interpretation Code Description Data Tere rce(s) Supporting Document(s) Leukocytes [#/volume] in Blood by Automated count 5.2 10*3/uL 4-10 [facility] Erythrocytes [#/volume] in Blood by Automated count 3.38 10*6/uL 4.6- 6.1 [facility] Hemoglobin [Mass/volume] in Blood 10.5 g/dL 13.5-18 L [facility] Hematocrit [Volume Fraction] of Blood by Automated count 31.9 % 4 1-53 L [facility] Erythrocyte mean corpuscular volume [Entitic volume] by Auto mated count 94.3 fL 80-96 [facility] Erythrocyte mean corpuscular hemoglobin [Entitic mass] by Automated count 31.1 pg 27-33 [facility] Erythrocyte mean corpuscular hemoglobin concentration [Mass/volume] by Automated count 33.0 g/dL 32.0-36.0 [facility] Erythrocyte distribution width [Ratio] by Automated count 15.0 % 11.5-14.5 H [facility] Platelets [#/volume] in Blood by Automated count 126 10*3/uL 150-400 L [facility] Differential cell count method - Blood [facility] Neutrophils/100 leukocytes in Blood by Automated count 91 % [facility] Lymphocytes/100 leukocytes in Blood by Automated count 5 % [facility] Monocytes/100 leukocytes in Blood by Automated count 3 % [facility] Eosinophils/100 leukocytes in Blood by Automated count 1 % [facility] Basophils/100 leukocytes in Blood by Automated count 0 % [facility] Neutrophils [#/volume] in Blood by Automated count 4.66 10*3/uL 1.8-7 .0 [facility] Lymphocytes [#/volume] in Blood by Automated count 0.28 10*3/uL 1.2-4 .0 L [facility] Monocytes [#/volume] in Blood by Automated count 0.16 10*3/uL 0-0.8 [facility] Eosinophils [#/volume] in Blood by Automated count 0.03 10*3/uL 0-0.5 [facility] Basophils [#/volume] in Blood by Automated count 0.02 10*3/uL 0-0.2 [facility] Nucleated erythrocytes/100 leukocytes [Ratio] in Blood by Automated count 0 /100{WBCs} 0-0 [facility] ID Date Data Source [id number] 05/14/2020 04:23:58 AM [facility] Name Value Range Interpretation Code Description Data Tere rce(s) Supporting Document(s) Heparin unfractionated [Units/volume] in Platelet poor plasma by Chromogenic method 0.64 U/ml [facility] ID Date Data Source [id number] 05/14/2020 04:23:58 AM [facility] Value Range Interpretation Code Description Data Tere rce(s) Supporting Document(s) Prothrombin time (PT) 14.8 s 12.5-14.9 [facility] INR in Platelet poor plasma by Coagulation assay 1.15 [facility] Routine intensity oral anticoagulation I NR is typically 2.0-3.0. Target INR must be clinically individualized. ID Date Data Source [id number] 05/14/2020 04:40:37 AM [facility] Value Range Interpretation Code Description Data Tere rce(s) Supporting Document(s) Bicarbonate [Moles/volume] in Serum 19 mmol/L 22-29 L [facility] Chloride [Moles/volume] in Serum or Plasma 97 mmol/L 98-107 L [facility] Creatinine [Mass/volume] in Serum or Plasma 4.58 mg/dL 0.70-1.20 H [facility] Glucose [Mass/volume] in Serum or Plasma 244 mg/dL 70-140 H [facility] Potassium [Moles/volume] in Serum or Plasma 4.8 mmol/L 3.4-5.1 [facility] Sodium [Moles/volume] in Serum or Plasma 131 mmol/L 136-145 L [facility] Urea nitrogen [Mass/volume] in Serum or Plasma 75 mg/dL 8-23 H [facility] Anion gap 3 in Serum or Plasma 15 mmol/L 8-15 [facility] Osmolality of Serum or Plasma by calculation 302 mosm/kg 275-300 H [facility] Creatinine/Urea nitrogen [Mass Ratio] in Serum or Plasma 16 [facility] Calcium [Mass/volume] in Serum or Plasma 8.8 mg/dL 8.8-10.2 [facility] Glomerular filtration rate/1.73 sq M pre dicted among non-blacks [Volume Rate/Area] in Serum or Plasma by Creatinine-based formula (MDRD) 11 mL/min/1.73m2 >60 L [facility] Glomerular filtration rate/1.73 sq M pre dicted among blacks [Volume Rate/Area] in Serum or Plasma by Creatinine-based formula (MDRD) 13 mL/min/1.73m2 >60 L [facility] ID Date Data Source [id number] 05/13/2020 11:09:33 PM [facility] Value Range Interpretation Code Description Data Tere rce(s) Supporting Document(s) Glucose [Mass/volume] in Capillary blood by Glucometer 117 mg/dL 70- 140 [facility] ID Date Data Source [id number] 05/13/2020 08:34:27 PM [facility] Value Range Interpretation Code Description Data Tere rce(s) Supporting Document(s) Heparin unfractionated [Units/volume] in Platelet poor plasma by Chromogenic method 0.98 U/ml [facility] ID Date Data Source [id number] 05/13/2020 07:19:41 PM [facility] Name Value Range Interpretation Code Description Data Tere rce(s) Supporting Document(s) Heparin unfractionated [Units/volume] in Platelet poor plasma by Chromogenic method 1.48 U/ml [facility] ConfirmedCalled to and read back byBERONICA PANIAGUA RN [id number] BY [id number] ID Date Data Source [id number] 05/13/2020 07:19:41 PM [facility] Value Range Interpretation Code Description Data Tere rce(s) Supporting Document(s) Prothrombin time (PT) 16.6 s 12.5-14.9 H [facility] INR in Platelet poor plasma by Coagulation assay 1.33 [facility] Routine intensity oral anticoagulation I NR is typically 2.0-3.0. Target INR must be clinically individualized. ID Date Data Source [id number] 05/13/2020 06:46:16 PM [facility] Value Range Interpretation Code Description Data Tere rce(s) Supporting Document(s) Leukocytes [#/volume] in Blood by Automated count 6.0 10*3/uL 4-10 [facility] Erythrocytes [#/volume] in Blood by Automated count 3.28 10*6/uL 4.6- 6.1 L [facility] Hemoglobin [Mass/volume] in Blood 10.4 g/dL 13.5-18 L [facility] Hematocrit [Volume Fraction] of Blood by Automated count 30.9 % 4 1-53 L [facility] Erythrocyte mean corpuscular volume [Entitic volume] by Auto mated count 94.1 fL 80-96 [facility] Erythrocyte mean corpuscular hemoglobin [Entitic mass] by Automated count 31.7 pg 27-33 [facility] Erythrocyte mean corpuscular hemoglobin concentration [Mass/volume] by Automated count 33.7 g/dL 32.0-36.0 [facility] Erythrocyte distribution width [Ratio] by Automated count 15.0 % 11.5-14.5 [facility] Platelets [#/volume] in Blood by Automated count 138 10*3/uL 150-400 L [facility] Differential cell count method - Blood [facility] Neutrophils/100 leukocytes in Blood by Automated count 78 % [facility] Lymphocytes/100 leukocytes in Blood by Automated count 8 % [facility] Monocytes/100 leukocytes in Blood by Automated count 10 % [facility] Eosinophils/100 leukocytes in Blood by Automated count 3 % [facility] Basophils/100 leukocytes in Blood by Automated count 1 % [facility] Neutrophils [#/volume] in Blood by Automated count 4.73 10*3/uL 1.8-7 .0 [facility] Lymphocytes [#/volume] in Blood by Automated count 0.46 10*3/uL 1.2-4 .0 L [facility] Monocytes [#/volume] in Blood by Automated count 0.61 10*3/uL 0-0.8 [facility] Eosinophils [#/volume] in Blood by Automated count 0.16 10*3/uL 0-0.5 [facility] Basophils [#/volume] in Blood by Automated count 0.04 10*3/uL 0-0.2 [facility] Nucleated erythrocytes/100 leukocytes [Ratio] in Blood by Automated count 0 /100{WBCs} 0-0 [facility] ID Date Data Source [id number] 05/13/2020 06:09:50 PM [facility] Value Range Interpretation Code Description Data Tere rce(s) Supporting Document(s) Hemoglobin A1c/Hemoglobin.total in Blood by HPLC 6.1 % 4.0-6.0 H [facility] (NOTE)<5.7% Average risk of diabetes (ADA)5.7-6.4% Increased risk of diabetes(ADA)>/= 6.5% Diagnostic for diabetes(ADA) Glucose mean value [Mass/volume] in Blood Estimated fr om glycated hemoglobin 128 mg/dL <126 H [facility] ID Date Data Source [id number] 05/13/2020 05:13:44 PM [facility] Value Range Interpretation Code Description Data Tere rce(s) Supporting Document(s) Glucose [Mass/volume] in Capillary blood by Glucometer 89 mg/dL 70- 140 [facility] ID Date Data Source [id number] 05/13/2020 05:14:46 PM [facility] Value Range Interpretation Code Description Data Tere rce(s) Supporting Document(s) Heparin unfractionated [Units/volume] in Platelet poor plasma by Chromogenic method [facility] CALLED GIO PETTY RN 8F 1713 BY 9418 ID Date Data Source [id number] 05/13/2020 05:14:46 PM [facility] Name Value Range Interpretation Code Description Data Tere rce(s) Supporting Document(s) Prothrombin time (PT) 12.5-14.9 [facility] CALLED GIO PETTY RN 8F 1713 BY 9418 INR in Platelet poor plasma by Coagulation assay [facility] CALLED GIO PETTY RN 8F 1713 BY 9418 ID Date Data Source [id number] 05/13/2020 01:20:22 PM [facility] Name Value Range Interpretation Code Description Data Tere rce(s) Supporting Document(s) [facility] LELWYr2yHkSVUuQn77/KBEhkFIDwz7PtMHtyWXy5JNnzJOOnQ7WwUCZ7lM9lPXY4LBiTIrTeScQqMtKt lbm [file] 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/NEq9ShyvHBoh/WgY/eBZoPKvz+KMUq77iyxoc5rb+N2p9h6KRaq/q2V+D40rgvp/I+TdgIZ0FOcOw [file] automatic cigar wrapper tender+FRVdwFGqCPGbMoqWslAe8dR7rbDDchJ61AC2jY0LhvWPN6+pU3xx4QrOT+13us4s9dAmK4oKCYyT [file] NmPeXlSCTbQbN1VvVaXJGvRcMbPsPxUmCyGV0NTk6CJnJ6BMO0yCQdKa1TIpv0TTuORuOqYY2HPKq= ID Date Data Source [id number] 05/13/2020 12:52:01 PM [facility] Name Value Range Interpretation Code Description Data Tere rce(s) Supporting Document(s) Glucose [Mass/volume] in Capillary blood by Glucometer 162 mg/dL 70- 140 [facility] ID Date Data Source [id number] 05/13/2020 09:37:36 AM [facility] Name Value Range Interpretation Code Description Data Tere rce(s) Supporting Document(s) Glucose [Mass/volume] in Capillary blood by Glucometer 110 mg/dL 70- 140 [facility] ID Date Data Source [id number] 05/13/2020 06:35:[address] [facility] Name Value Range Interpretation Code Description Data Tere rce(s) Supporting Document(s) Leukocytes [#/volume] in Blood by Automated count 5.2 10*3/uL 4-10 [facility] Erythrocytes [#/volume] in Blood by Automated count 3.46 10*6/uL 4.6- 6.1 L [facility] Hemoglobin [Mass/volume] in Blood 10.8 g/dL 13.5-18 L [facility] Hematocrit [Volume Fraction] of Blood by Automated count 33.1 % 4 1-53 L [facility] Erythrocyte mean corpuscular volume [Entitic volume] by Auto mated count 95.7 fL 80-96 [facility] Erythrocyte mean corpuscular hemoglobin [Entitic mass] by Automated count 31.1 pg 27-33 [facility] Erythrocyte mean corpuscular hemoglobin concentration [Mass/volume] by Automated count 32.5 g/dL 32.0-[facility] width [Ratio] by Automated count 15.2 % 11.5-14.5 H [facility] Platelets [#/volume] in Blood by Automated count 144 10*3/uL 150-400 L [facility] Differential cell count method - Blood [facility] Neutrophils/100 leukocytes in Blood by Automated count 65 % [facility] Lymphocytes/100 leukocytes in Blood by Automated count 18 % [facility] Monocytes/100 leukocytes in Blood by Automated count 12 % [facility] Eosinophils/100 leukocytes in Blood by Automated count 4 % [facility] Basophils/100 leukocytes in Blood by Automated count 1 % [facility] Neutrophils [#/volume] in Blood by Automated count 3.35 10*3/uL 1.8-7 .0 [facility] Lymphocytes [#/volume] in Blood by Automated count 0.94 10*3/uL 1.2-4 .0 L [facility] Monocytes [#/volume] in Blood by Automated count 0.59 10*3/uL 0-0.8 [facility] Eosinophils [#/volume] in Blood by Automated count 0.22 10*3/uL 0-0.5 [facility] Basophils [#/volume] in Blood by Automated count 0.04 10*3/uL 0-0.2 [facility] Nucleated erythrocytes/100 leukocytes [Ratio] in Blood by Automated count 0 /100{WBCs} 0-0 [facility] ID Date Data Source [id number] 05/13/2020 06:57:16 AM [facility] Name Value Range Interpretation Code Description Data Tere rce(s) Supporting Document(s) Bicarbonate [Moles/volume] in Serum 18 mmol/L 22-29 L [facility] Chloride [Moles/volume] in Serum or Plasma 100 mmol/L 98-107 [facility] Creatinine [Mass/volume] in Serum or Plasma 4.10 mg/dL 0.70-1.20 H [facility] Glucose [Mass/volume] in Serum or Plasma 111 mg/dL 70-140 [facility] Potassium [Moles/volume] in Serum or Plasma 5.3 mmol/L 3.4-5.1 [facility] Hemolyzed Sodium [Moles/volume] in Serum or Plasma 133 mmol/L 136-145 L [facility] Urea nitrogen [Mass/volume] in Serum or Plasma 63 mg/dL 8-23 H [facility] Anion gap 3 in Serum or Plasma 15 mmol/L 8-15 [facility] Osmolality of Serum or Plasma by calculation 295 mosm/kg 275-300 [facility] Creatinine/Urea nitrogen [Mass Ratio] in Serum or Plasma 15 [facility] Calcium [Mass/volume] in Serum or Plasma 8.9 mg/dL 8.8-10.2 [facility] Glomerular filtration rate/1.73 sq M pre dicted among non-blacks [Volume Rate/Area] in Serum or Plasma by Creatinine-based formula (MDRD) 13 mL/min/1.73m2 >60 L [facility] Glomerular filtration rate/1.73 sq M pre dicted among blacks [Volume Rate/Area] in Serum or Plasma by Creatinine-based formula (MDRD) 15 mL/min/1.73m2 >60 L [facility] ID Date Data Source [id number] 05/13/2020 08:16:47 AM [facility] Value Range Interpretation Code Description Data Tere rce(s) Supporting Document(s) Troponin T.cardiac [Mass/volume] in Serum or Plasma 0.06 ng/mL <0.01 H [facility] ID Date Data Source [id number] 05/12/2020 07:53:49 PM [facility] Value Range Interpretation Code Description Data Tere rce(s) Supporting Document(s) Glucose [Mass/volume] in Capillary blood by Glucometer 81 mg/dL 70- 140 [facility] ID Date Data Source [id number] 05/12/2020 12:59:17 PM [facility] Value Range Interpretation Code Description Data Tere rce(s) Supporting Document(s) Leukocytes [#/volume] in Blood by Automated count 4.4 10*3/uL 4-10 [facility] Erythrocytes [#/volume] in Blood by Automated count 3.23 10*6/uL 4.6- 6.1 L [facility] Hemoglobin [Mass/volume] in Blood 10.1 g/dL 13.5-18 L [facility] Hematocrit [Volume Fraction] of Blood by Automated count 30.5 % 4 1-53 [facility] Erythrocyte mean corpuscular volume [Entitic volume] by Auto mated count 94.5 fL 80-96 [facility] Erythrocyte mean corpuscular hemoglobin [Entitic mass] by Automated count 31.3 pg 27-33 [facility] Erythrocyte mean corpuscular hemoglobin concentration [Mass/volume] by Automated count 33.1 g/dL 32.0-36.0 [facility] width [Ratio] by Automated count 15.1 % 11.5-14.5 [facility] Platelets [#/volume] in Blood by Automated count 140 10*3/uL 150-400 [facility] ID Date Data Source [id number] 05/12/2020 01:14:53 PM [facility] Value Range Interpretation Code Description Data Tere rce(s) Supporting Document(s) Glucose [Mass/volume] in Capillary blood by Glucometer 141 mg/dL 70- 140 [facility] ID Date Data Source [id number] 05/12/2020 12:11:07 PM [facility] Value Range Interpretation Code Description Data Tere rce(s) Supporting Document(s) History and Physical [facility] RGCHXs6nRbULLrXs08/JLIbvSIIiy7OoCIjwJEf9RZqdFDLbW8KzUDB5kX6rJKH9FRwOPuRfUrUeUxU4 lbm [file] CiAgICAgICAgICAgICAgICAgICAgICAgICAgICAgICAgICAgICAgICAgICAgICAgICAgICAgICAgICAg ICAgICAgICAgICAgICAgICAgICAgICAgICAgICAgIC AgICAgICAgICANCiAgICAgICAgICAgICAgICAgICAgICAgICAgICAgICAgICAgICAgICAgICAgICAgIC AgICAgICAgICAgICAgICAgICAgICAgICAgICAgICAgICAgICAgICAgICAgICAgICAgICANCiAgICAgIC AgICAgICAgICAgICAgICAgICAgICAgICAgICAgICAg ICAgICAgICAgICAgICAgICAgICAgICAgICAgICAgICAgICAgICAgICAgICAgICAgICAgICAgICAgICAg ICANCiAgICAgICAgICAgICAgICAgICAgICAgICAgICAgICAgICAgICAgICAgICAgICAgICAgICAgICAg ICAgICAgICAgICAgICAgICAgICAgICAgICAgICAgIC AgICAgICAgICAgICANCiAgICAgICAgICAgICAgICAgICAgICAgICAgICAgICAgICAgICAgICAgICAgIC AgICAgICAgICAgICAgICAgICAgICAgICAgICAgICAgICAgICAgICAgICAgICAgICAgICAgICANCiAgIC AgICAgICAgICAgICAgICAgICAgICAgICAgICAgICAg ICAgICAgICAgICAgICAgICAgICAgICAgICAgICAgICAgICAgICAgICAgICAgICAgICAgICAgICAgICAg ICAgICANCiAgICAgICAgICAgICAgICAgICAgICAgICAgICAgICAgICAgICAgICAgICAgICAgICAgICAg ICAgICAgICAgICAgICAgICAgICAgICAgICAgICAgIC AgICAgICAgICAgICAgICANCiAgICAgICAgICAgICAgICAgICAgICAgICAgICAgICAgICAgICAgICAgIC AgICAgICAgICAgICAgICAgICAgICAgICAgICAgICAgICAgICAgICAgICAgICAgICAgICAgICAgICANCi AgICAgICAgICAgICAgICAgICAgICAgICAgICAgICAg ICAgICAgICAgICAgICAgICAgICAgICAgICAgICAgICAgICAgICAgICAgICAgICAgICAgICAgICAgICAg ICAgICAgICANCiAgICAgICAgICAgICAgICAgICAgICAgICAgICAgICAgICAgICAgICAgICAgICAgICAg ICAgICAgICAgICAgICAgICAgICAgICAgICAgICAgIC AgICAgICAgICAgICAgICAgICANCjw/rZVdX4iltJLmtvR4A7eqFl9FHr3GQR2dr2IrFXPsBLuacmNrTr nYElUeRWBnEiyFFeh9GQsmBR1SmVVaK4AqU3BqMVpwSQ8MGUElVUQguDIxMUNnZVHiIqM9JSToKSrgWG 9LaWRzIFsgNSAwIFIgNyAwIFIgOSAwIFIgMTEgMCBS ASAeKRMsQgHdOZAtCOWxGXjlRLGLMT5SOmAsM0FksK46YDmJNf7+DFgjrhKvKlwLUnGvOFWfs5SzFJk4 MT0UOFDkJcjcw3ThVPJoUMQXOKaqUS9YZFC2JCJsLJFkPc3ZYIUqE624tkOuEW4DZl6HNgYtRO2sog3Y CJZxCSTyHyfUElw0VHgtZV1ZcEOfYUpFPpPtQezbQz NwNDcnKSP8hxMfaMVhyqhnLKWWNlBpjDTwAkV9KzQnPvYzDCB2HOOtLO7wVNstWM2MPLP1GHqhGTCkOK WyR1dRHrNfPZKgScCbgMweLK9REwOtT1HmezZwvCF6KWCqZKGRJh9+FTeptlBcJomXQjSuIRBkz8BqIE r7UE5AMUZuBKtoBT5PUXQobG6gILbfPO8FWfZfZVIm UYNVRmLjL79pnSUrKMi9D4QtNuXyQDToZdziZODuGPuyWwUuNAOoRbDwVMznUF2+ID4+EYdeMU0ONFrf cpTmZVTgDc7MISJxHCSbSJ7oQLXvPIKaS5S0iBnfBJEKLpHkX0kiuhpbUF4hZBSfQ454jJjpncJhYKRk YYUvEu3QRDOnWZM8UUKgsEWpSxgcSIPSOUmvYI8EdU TqZSF5bU1uKMxtSDExAPAxD8tUTkMcbDggBH34eOzayjLfsVZjICf+Sn8KSD5ul6HxBDa9csKyMYkoXN MqWXqbDOOlKRXkKEBtGUO1SZZ3HXINTqQpGXRqRKVvYPghAIWeZZZpsn6WVFXnNDE1JSqjFiAnUWVvFW MrHYgbELGcFZI6EVtkWLZoMABcNX7EHxAlYKZgSBAa XNxuRDLkPLTpfu9YOUXcQEMhJGauOkXqGJPkLTQwNFvkFASlSZM9XGNvEREeNDHxLZ9TEpDbLSRwREwb LUQwWCLeYKNlna1WNOFgCNUiCIJ1XZDlKSRrQHTsDFcwNPCtXXRaAwQ8MVAzJEGlZI2XSyYsRICzVRW4 IPBcOQMgKHIdqa8RWPWlRUCiEmRjXRCqHEPzYHWiEU ugWCQeLQF9LdY6GMAmPGQxUF5EWoTiPLBlJmBdQgosMUHaVJIgyn5KHIKdWKWlNOA9GmBlLLEsJFNhAN fpWSVdQSXySKLwKEIyPHBaUM2YLhVhPSPmBmVuSCpsSDLkFDYkrk1TYFLyXHLgBNQ7WvZmVWLaGSZyAI weIJYuDTB5Veg7DJEhZHYeQU3FBcPkENLwAlV9AUov MQJoPWEajg5EOMGzOKZrJdi1LsYyDMDrKPGiYBuaGOUkARS2YOV0CKQpDRWpEA9DNdTlGEHwNkpaPGee LUYxYENlta1HFREqDJDuNKZbRCSlVCZoZTLeWPliQIShRZF4XQn1EVPlTTIsYH9DFrHwMYDyMxk0JYxk GLYgANDooz1FXMOvGRFsGZH3OSUrLMDpAXUuFEglFK QiDBC7HUR8QUUjLAXmLV8VGmDoFBLvDtD7MYneFGEcUNIxqm3XAAJwWQGxOGa4COAmLWZuFNUiKNqpLX VkKSCmUWx1YNPeXARoYD2RVbRfNVWsALG0QuDfJMReSYIiit3KCEQpIYS4Fwe1KEWbXRRrIHAvGShrJO QzGWRbQOz2BUFcZSQsYX6DSqKzHKDrLFJwQexrLNOz XYAuxf3DUOAcVEY7CzV7PCEiFPFlEGDbATfkVOMwMKM3CBG3QOKeOUZvFS0MFoYyWWYsXGL6UQMyKVLw UXOvmm2UNLFmNUB4KUp6HPCsIAUkSHNqPItqVNAuCRY3QeHaIAUsWLJhMV3WYrTgFZXzRJA1FORtEQFs SQOoug4HAAQpHKC6Aep9DmTmLVIdNJRjYMlsXSHrLY Y6SFP4BMNiHYJfLA5RGtLwBUovJKNXCfu1JSwxU9e5BUS3Kb8EW8Pqo9GjAGXyKEYKDXwrEZ8klmAiOD FaBe1NA1kZNepnOpWwOmQ7SZP1IzCnRiNlWCxrFQawEOE4BMd8VHioSF5cAEA7F3VxHmF3KUnfRsKkCW PkXUBhF4Z7MOv8OZH5EsV0HpLaOJ0SFe7YHhB3NTX7jSFhBf4DNEdbShpDEbGrCK5YHQw= ID Date Data Source [id number] 05/12/2020 11:09:57 AM EST [facility] Name Value Range Interpretation Code Description Data Tere rce(s) Supporting Document(s) Color of Urine [facility] Clarity of Urine [employer] [facility] Specific gravity of Urine by Refractometry automated 1.013 1.003 -1.030 [facility] pH of Urine by Automated test strip 5.0 5.0-8.0 [facility] Protein [Mass/volume] in Urine by Automated test strip 100 mg/dL Neg ive [facility] Glucose [Mass/volume] in Urine by Automated test strip 50 mg/dL Neg [facility] Ketones [Mass/volume] in Urine by Automated test strip Neg [facility] Bilirubin.total [Presence] in Urine by Automated test strip Negative [facility] Hemoglobin [Presence] in Urine [facility]ukocyte esterase [Presence] in Urine by Automated test strip Negative [facility] Nitrite [Presence] in Urine by Automated test strip Negati [facility] Leukocytes [#/area] in Urine sediment by Automated count 94 /HPF 0 -5 H [facility] Erythrocytes [#/area] in Urine sediment by Automated count 8570 /HPF 0-3 H [facility] Bacteria [#/area] in Urine sediment by Automated count Non e [facility] Mucus [#/area] in Urine sediment by Microscopy low power field None [facility] Hyaline casts [#/area] in Urine sediment by Microscopy low p ower field 36 /LPF None [facility] Crystals.amorphous [#/area] in Urine sediment by Microscopy high power field None [facility] ID Date Data Source [id number] 05/12/2020 10:59:30 AM EST [facility] Value Range Interpretation Code Description Data Tere rce(s) Supporting Document(s) Leukocytes [#/volume] in Blood by Automated count 3.7 10*3/uL 4-10 L [facility] Erythrocytes [#/volume] in Blood by Automated count 3.12 10*6/uL 4.6- 6.1 L [facility] Hemoglobin [Mass/volume] in Blood 9.9 g/dL 13.5-18 L [facility] Hematocrit [Volume Fraction] of Blood by Automated count 29.3 % 4 1-53 L [facility] Erythrocyte mean corpuscular volume [Entitic volume] by Auto mated count 93.9 fL 80-96 [facility] Erythrocyte mean corpuscular hemoglobin [Entitic mass] by Automated count 31.7 pg 27-33 [facility] Erythrocyte mean corpuscular hemoglobin concentration [Mass/volume] by Automated count 33.8 g/dL 32.0-36.0 [facility] Erythrocyte distribution width [Ratio] by Automated count 15.1 % 11.5-14.5 [facility] Platelets [#/volume] in Blood by Automated count 141 10*3/uL 150-400 L [facility] ID Date Data Source [id number] 05/12/2020 10:32:17 AM [facility] Name Value Range Interpretation Code Description Data Etre rce(s) Supporting Document(s) Thyrotropin [Units/volume] in Serum or Plasma 5.840 u[IU]/mL 0.270-4. 200 [facility] ID Date Data Source [id number] 05/12/2020 08:59:20 AM [facility] Name Value Range Interpretation Code Description Data Tere rce(s) Supporting Document(s) [facility] CLPVDz4oIaKHMpXij7HpThFdMAWjLY6lkll2X7K4zKPdY5PyrJWws0buQ8ApO5OuZDTbIKVWKT7WnGUa jb2 [file] /gK/gT/Ak+qtq3g2FruBqV/ivuB5zoay/jorge+tDy3s3x47OyqG+XL/K/1rh31YLr0MRlonLo/cb+tWTIK uiM8Lofh/BX+Eq6Vl4W+aLH6wX8wSmLEf8YeNyot+bnjZgaAZL2Bx1G/SrUwZ/gI/yBg8buYGe0G/wF/ vDsYxv5Ex9DoDiMTkZk3UAeI4dWn565CmbXhKsHyvl XwW/9ElJ/SrLNV+FfnXKNb+CbjPrdBjtQLxMmvuQ864dM+1xSCGJiRkyb788vRSq/FgrFzr9H4Z+JdCv JPSrLA/wS7+S1K+Vq543Y4KPBTI6zxze9RmiUEMNqnX2rxdIIRycuqidS55d+B61Ge5ED+S36Jq4U/wB voKv4E/w/EqhyVTnIb2BRQ9/3izv5/vu/eaH6gQ1ap 7780ad+6r6dwO/gS/c06o4EX/ng40EUnNS77H3hzv+go/3u/F+61P9uH37e9/Bx/vdeL+G5zU8r+F5rZ H8BG8Ebc+4Hu/H0KatR6A/NfTn1K+CX/qV2AR/1bhI/SrKG/iU0j954Qmye/XI7+s+CzrzDhcTe6z5ED VgPoa9t/byo9qeOIxSv4yjd4+lIsga1YLsui4La/x5 r+OPZx96g6qze53w/VS4ocveQKe5L45Wv/4p0iANLg/er/vSPOUOfn/6iYvgyKHV+XRCNNz8Zp9Ym0Q/ wN/gb/AN/SjD6jbe5dnWn009rdqiZ/jOVa5hrNMM3mO7t+G1Nj7srQ1Z2javX/L2YdifZjwe8F0ctuo+ +fLdb24e+3xEEhbq4N7FS/hI2OO5ZiZrE1U8t2/BH+ ZW3RT6Gsk2JG6Dt+hXV/Dj+njeWo1R6oL8vXF9haop3xnrbn4jWyQHw7CgbOkRthaEo08zqQHNw7M/wB /gK/iK+zp3831rL2rXc+i4gbrGHaH1fuqN11o+bb0Yz6gmT10W680ewbH011lx0ylUgowWShrzI30z/h blF39l/eNed7s+800pDxNG4l3XEzvKf232lv1Q5/V+ 1Vkx5oWiocy3N+eoW7+2F6z4xpe4Se75c4M+PyB3+T8JlI7qnOrf96n97tsp815K1S4o7tH6iw/iv9Pt W6f18czrdw/QKN/tjP5/39aIJIujd6CkAQM4uhbEEMj4nw084pp6mOd4+25wdR6l3i3yu7z0z/u3+Manager Decision Support Lt/PayFD16+qSbSt7veOuPbXg3JAHh1v/vdgp0PkO+ nZ0nChruco8p13nBYF/A5+tybgiEY45N70i4lhHv+S68kVXvyEWXMVj8X/wN/gb/AN/WHNqoGHhmLt1W hncju29sM/0F6uVXBqU/nsrl+l3EK/vfkoR27L/EtaEcbY5Iu31Zf2Pc7k71E8+sb43bW/0EO/ijkh9K red793luR7bj+h4GJkdw2LCoKt1PrvK/te2hs8BIzK 6FdZntXfQr+KZw/9KmQS+lXIyjA/j66AwnD20xa//HGV/XmE/kbj0yzsp3UY/UqCX+18bG2yK2/s7SPs Sb0q4ia4du/9eQTf+/Mpgz/Bn+TBun4ipa1ucP8O/LJvjLBfreCXPWeE/crH+wj71Q6+P68F35/X5+cR 9qtTBr+D38G/l7t6mYf+B37d0UTY+ea3uOZ+3qcM/g J/gb/B3+Ab+FZ816+entC4Gn6nBOHvCdxTch/1q6cM/zb0dO0S2Fa6g5Ocxg4R3Q2qoZZneJFcYO+Rmq +HaO8htW8s+zDGgchN3o0Yvjfmf6t7TJR/AJkr41xaP4i6oMmQo52/ac0f6Ly4jz5OJ/AV/Al+2Z/dpe L283M8KnwK2mcB/Wr0sj+R5B9CfC496HnYt2o5fG2I zOy00jYjne4b6wDH1MbV86N7zpWd8hsqN/Anrl+oZ6GdG/oE1l69BL1LrA+9wG/gN/AF/Pr+Yt9s53WF /gC/9o+F1y1HsF9p5NO/gr/AX+Bv1I/wSvjYopU4p9o13PAC/acMxrXA2OD7qqlrfEppc2Z4eZZ7jIQ2 1cD+0ZfpdqG1vP0dE/gL/A3+Bt/Ar/25fcV2qQ4WH5 leifgze0w+s2p/o1wdB91nG+V/e/XzsF+jgpc52Ia0pjEwconEx1N+dcrgb/DxfsN+mqiJ7df/+wK/gd /AR3/e6M/Aj8doNaK82fUCcj/BT1sfSwnF3+0ufdLdPaoM/gZ/13d/1/7Jr8wakv2DjqLI47yXIpk5St zPG/pVyMHq/MawWv+O0K/pKEtfd4C3hPVR/gR/gr/A x/fr7ljsg6/v70CdAdsP9en4oe7RzM+dMvgCfvVnvao/v3yzPlXHqIT4Ct1SK0RPFV9Z7Gena/A3nstQ i13S9xh1qI1Jl4Wc4j4sFv/YBtgwDZjBZuq4q5Bk8bua4zeLNwEak7TgmiQPnJ7ra84CYoxmeBL3KJ4h fAO/9A2N/cFTBr/VfaW+DjvIkkK7B6Clvc/p85hNgj m9o7GO2PuYcGueYXpVVW9t99trexYPIj/Ar/4R5pzVdG4aeyXNzu3G917KXyL94iude89ipS21Jvhla+ X8X94974i4rhln1Ak7E0gVZ101tc6HwT/ssBslNM9L25ugGn8335w0LufJl9Kv9Bc9Y0kA44CwU/1KoV /pwPMOPO+u92IgrH4HX/Ab+A18AV/XF02FkN/FfKVl d2W7f8LEe2sSik3hPhbh/K95ns82r3WWE5Q6OTAapW5fUGvb+1vLLaru55PN04Ivt5CiemQQNAXw4k9X 6Ce0Z4JLMAFMwnfecQWnE9jg86ifE5v2+QbgaTM9vC8nHwszUtVjEIkJw2GifKg3dOACUpkhSmOc3/4U gjfsy8rnrd/K93NlG+2muIJc5jvqWnMp3/y9L5E5m7 FWSGY0IbyHRasfgkDE1505CcqZjRjbiZ5oc3PqJ0eG3E3+n1z2mts/BEENA/0ijXfqiuOi+qC/5P483V+p KZq6HI2nnG+1WWN/gbfAO/4fa2q94y+wK/gV/6Cq43Qgz2xa6U4Jx3G/gD/PX95zmcdxA9R44XegkvX/ yajW22sEu4c16mNa+SXvF2hzdi3c3nN/gN/Aa+gC/g d/Chb0C/XaK5WSVsZ5A1Bqnuk/u10p/dI+ANz7o5bQR/EubcuG9Ek/OxM+pTYe1p7P4p+TIgqLokF02N xQqbi7Mdae/zI9KJ16CthcHung/71bzq/MYM+6FImw38kMv14Xa+P2+BAriyZ33eF92y+P43Yr5LO+D7 53JyeK487kf3dITRzR4sq02lHDhg2ecfqq6zrl94ti 53WYV+FbJqZX+oegbIw0H2yPbCbqdHa8+h12RP1lhPXDKxnGf4VqxlxhjGfZ/B+xUFf4I/wV/m95bmIN YphOlbx9ZfO4+gD2zny7JhfZ1f3zaL/Aa+gC/gd/A7+AS29d3l6SwQ/Jw28mitP/vz7LU+ps2f5kXOkx /8mloEPhn63geaAzjY0+e4wG/gN/AFfAG/g9/BH+AP 8BV8Bb/Xx5eX0etlbHTlo0M+6du3yfgdq1zIt11ifWC4+tD6S1vJKlfRBC8jV/AFfH/cAlC6064Tu/Ox M/SrUwZfwVfwJ/gTfD//bFG/63pE4IG/nXV90rc23ncvDQ483Z3Q+tt0+6Md0E08jXuc6rn0t6vuFgvD F/A7+B92fB65l+t1s8WGvxxfb5K5sa/T57a05aBwvU wDwwYgYmhNFTEr3CqaJ89vjvtqwX6E7elnB1O7dv9JxIfZ+B316uuZEK3x+oahY0rN2YG1Pq6Vd91fwG Godsmm07gowvZIqWq+Jorge+uGfarLDfwG/y19shcRj6r2/tUgWAMI2X3X/xr70a2AsmXn7n6BheD04sBi3 y/QsWLxkyw4QWcX0Daoi9qaY764HfOg+JM/uR8NeNk 3xdQIhBchI6pzz9uuyq49/BnuNCIkjz5C9cmMjxYU6Ok7B/UU/vd0/UdWsib8eJa61+ofvQ0Ulk/uX4V 49nzhG7pmD29uPUz5Sr0qfH+dQU/5qsoK/gK/gR/gr/AX+DX+J65z5OpS9/R0wk58NwT26Nw3clzaa/V dckfvI2kQC+6dE3hmqLiFUx+TveeV5c/Uc+6UAZ/47 67FTgbamvp5vvuJl3KN/B5dc1sLVyph1No9Yv3WvbLvkixa/I4NzI0AN+WnAXvV+p83ZJV/IfjR2crtP 7vN+xXUX+i75Qd7JqIhqQ54VF+o79O1N4+r/cd4fkXax/3hnA0k4Y48m2fgKQ92utJQ+Ei5Hr5R/zSr1 ijO592jNYyTnm4yeNjol0c1dkF87jM+uPRkyRUh8w2 B+qv/sW6si3fRGE/gj/BX+Xj3Uf5Z8rHj61iLQ8/sqUX+J14Gj0jzf1m0r/XkglsUjai4wBWDp14zoG1 b7YU/ru1a5dlI6qkyg3/jxT9x+6AVzywtc7KU8Ix+5Q7nafn+8YWp3F45zP1uvO9ZlvZczoust3wagrj 5Dc/l+HdjYcdih68C3d0k4540qp5I8Ti0C73Y2rH/S r/W/5lK+fCZb4amwTlddQ0b2qaHewi8GQY55/irNpy+9XI+t1eN10+br+ltE09z6I5x+8LLfOrmd4b+9 vhsrMpmsetG9em/mXxTsN+bry133r0JB/I77wx25ND09rQimrdwt35LBdg7P9ZYrpQExq12QtNr3tNu0 5W78NLeq3JoIh/Jb3zp91f7xcL/cGF/wI5qh03btq/ gz/AH+Ar+Ar+BH+Sg9DSw398A/RMdiY3icA+7acsK3/yYqhF0q2cN7xvyH/gC/jl77ys/FOW1Xp/2QBf vq1hhkv9G/qV20g9c9nT/bUfusJ+JUIhzq4rC+VPt68L/AZ+A7/3jKzIb5vO6Ko6M+3fB25wj6/Vvsqf ub8Fr8OjgD6gK+VPt8N+leUFfvmXbdivNuxXG+evNu Jz9EdYDIVUe22ozykl3WH3Tk+jHjwv/Ac3/Nd63mDq+A9u+A/sejdujL7T23087hnwqJU+5vc26JauQE QjfKigC3cT5397uW0swRoH+asWZT9/1eIaP3+V5QH+AN/Pm+V//bzZFfyJ+x26KZUP+Eg0Zj4YK/15T1 txKki90IcY745hsw15xmqS+OUvucN+FTIM+6I4h675 lt9gjwfCV4bw++Tu5U+3+wR/gV/+jph7Z3A5el1stPwo0xx0N/stWd2XK/b1vC79k//dLGOm0Af4fRI+ U0q5lPI31UllakCUO/uDe9T+/f35do2eG/dRpu59kO1u3Yds+nOXviXkJ99gItq68BM+pwJu3vSx/Lu2 Q7/Kcge/gz/AH+Ze3j30GWceNoHZWm+psccTYtq7T/ yCqzKw8ol2yL/vnrWfsnH+dz8469kpaSzhwbm0L/fsqGeg/lT5Pqt89Lu2vn67b8o/2rP2u/es/f09a7 9sz/18l/e0C+VfmtwJnVgvM5ougz4Mc4+dtywsy7ZcyKr/XnUeaa/6/w1D1Kq1kV+MiJdd922C/Npf2L E/mOWN6+v7u3G+fcf+ODhTqvB2K1/Yu84/713nkfau 8/fw77466po8xu8jxO/aOH+1cf5q4/wC7fQ0oZiN4o+9H06lfiPzh6w8sz7tu18i0H/s0K+tUpH5kjeu bQK+gI/ntQ7+AH+Ar+Ar+OZ9Pa5jTFyyZ/gW29Yqgb87Ji4FHFPlue5F/VzIAuFfjCxdx45Orch/gz/A r+l5d90OSd/j19gTo2IWp4FYr7GQl3LOQj+DX+eR7C x98KhbM9PP43mrjIjwsupjiA6yBuyGxv52Na6Eo0Eq9Di6X/wJ/gJ/gV/iargOs4Go0II4Nx3l6L0A6g gTGu3PDeO7Bqj4P5MOV7OnH4hoZq+GDLq19u6Ipc/FXL+68npf7+a4ql2ZcANWM05ws36+XiXvtR9/Lh M/rzKC7+dVgt/9vEpc3/28StTT/ilAdxxm8d1/Meghann+ [file] A7Oq1Kzcvp1yOztVVTpdGzXo6UYd+38yCuH9OVTuf1b1yVaHe+nnLlxCDynCvHcyuSrqTnVmRduc5/العلي [file] OTcgMDAwMDAgbiAKMDAwMDAwMTQwNiAwMDAwMCBuIA obJHHjEFN4TrW5MEBgODCvDF9fWiRkPLZiVHI5LGjxEGIfRCRhnsMCRXKpPIDnYSkiBCYwKINdTNWsVH dfPIJgZDFyJWE0ELFnRIWcAN5gQaQvXDFjYAUhEWSyVcX7NyZtNvFIvLSctZxftjd6SDdqP6m2XKLyTO hdPQ5ppkEsPRPdVtwxSc5zdJR1UNZqHnjDQr0Sj5EqudP8hgJvEfF8IDOyLoMrED0V ID Date Data Source [id number] 05/12/2020 08:58:[address] [facility] Name Value Range Interpretation Code Description Data Tere rce(s) Supporting Document(s) [facility] TCITUq1lTdDYElJfc9IcJhBhHNBhJT5dacz0N6P6gMXhE3TfzNMpg8ypP5NwM4RqTXDgMQNJUI7MkVLp jb2 [file] 0cajvmjcjePhsL86J3ZA5/zMHxlzlMmAkTvwzxyxC/ LJQR4LUnFBjHrkZOW72Y5CTh9oACfMlzfRZ9uadh/JkiUUwLJgUQKmYlaFImEG51fAKxhI90agSkyCr3 eg1q3Z6pWeoMtnSoJHxLuA32PHdV4r4AzmCIlGwKHjhGJjd9HdAN2I07Fc255Tj9aC0vAwV1sV0lj9Nq 8d2J+E5UdkmqdtKy5TX0P7uM+R9xHPvSEzNYQgg9t9 MzdqlopsRc09E6nDjU+M3cANW4Vd1tQkVguAevIDF0WzkINw2culwTxWvgUg5ESgfAXDLgsTF5X88W2P 0PK6xBqcPY+IVk7V6ajlzaz6Mz76j8h9VaAVPfDvh6My+F5w/QzlqDxvfEyLqm1K8e7b9Hq9/kuerIPH 5azy3aVc5uH1mhZpr6QX6ehq7bGc0tIcNZeMAcXTcA 0wKMJJFAJQJvA0aXfaAwJhr22o5S8bimkK9TOzLPx5/yuLsqjy+xkj4wlG/AJMGK4o3qwH5wOJ3jYfW1 zBCWR3TdG91yOYxo5usM20AF3j122ycopIfFDCy1T+V+sCV2e33i8O5tkzz7O10jnNtjioffSwmIO0A0 ZmVuka0AdoxbHNfPb/sBlvd35qy8xP7n/T7zmM6Alv oRVoWJXzq/U5ppo0jNhPlXkwNSd5D+WaJ3F/ShOYBxvacaghxhGTtU81LBhIEUngvE8M7SaU+R79ImzZ xvtdmA57wkdAbhwyGgwED1Q+Lf5clK62QYzXkh6Wj5I/H3HtzUWMET+W4ywqxvt9hPvIe2fp3PhGptev jseixKXw1WWYPJ+J2AdJiJ+T1czDfma8pu+s/G3Kh0 eFGv1Jw/OubGr/B4Nyt661DTp/v+xubrIH0rV1CEzw+DlT9vjs/4zYfK062c6C0a8/wIO0mbHR8rb61l 7hfL+العلي/5Uub7fikLIxr5DzEw381QMx0oIDaOjkkFbGQIBm8fQfS5s1uIyt3MjKknb6eT4jGuPhXukg7 tw3GsjgX8xlB8To0HK2p8+U5es5js6rE+Wiyrluid5 uqG7qQv8hAUtbQGvPyIuEo3DxKv/yv80vbBA1uAf2cFo9QJ2zMFx/fMDzisdQLQLKB6VB3qS0qrJ1mAh 79mChoF3cT0gTy+O7K+T75aspducLfS+vChrAhDPFdnC/8graL+P3syGZ5ioivcslycsuzsnalnojfKb pE185DdYtyKfp5gBgc0s4Ri+xG5JxiTfmdO0seszwo vG4daS+K4hTv7IzGRuGHjG3Y5ufS0sN8abnT7ATXas+08S3hezjxYsz+YBd+Z9MBc8pM+W5TQfKjXuq+ WUhHfx9GawC8XvjyyqPe8Z6qhMzUdY/hLrzvcCO+O1ScZmx8pyZD+G5AXeugtrPymr6AvRqF1ca1Diww udttJwbIZ4OZrhl3JlDfzjCtZ2wHcOayQGbEO5U3S+ bG/l55Kgz04dKH57b32/cBu/C9bZ33r3zx7Z/5EX657N+W6878g5wYr1W+XbQz2b+7G+0b3h08Vn+2hG [file] CIdXHjGmx3DQNkgW1PFwv0lPbfkCPnM1iNJrXlP+1st pressman on web press+YlnnH/lK333Y8v1U9tr//MwDzp/uwagNi8w4 m1pG0vQm+7fybsnnj/mZO6634nyueWmP2Czk7yxv/3 AzRPvp+AaMza2o/DgsUgJ4Ce92AZBr5tmZsW/ocG2QTBn238KGsndBKK2dd/9rZZjRMiudgg8JvZWJfp IxH/ljh8XxDvlI8skr+EwjwXf+67bZ6M/3ENgFRTYC0DyuSu1FmuYPPJJm6LicrT2ZDBTCT84MbCkvDm 3byr38xdi0udZosKZrnmmhG/EBwPbZGf/zybYkyMDP 2nlyi+jZGj/uEQUVCUX7g6ujk46tGC/8hoyO5CXrKuIZ+L5s8G+gz1rR4GUFNNDRtHOiRqgbGPYsZmJz hO9MqRTarGT6KGgGlKqEEwmaeEai8CnzWsy/tUT9IVfRnKdChgPceNt3+RxD+rBbHBW1Mxfqu/BCDjui gQaUQaESEiRDqRTkTxbLFifAQjYkQGkUFkEplEaIOx [file] HiHlt1NrzyURxtAOZFSd== ID Date Data Source [id number] 05/12/2020 01:14:43 PM [facility] Name Value Range Interpretation Code Description Data Tere rce(s) Supporting Document(s) Glucose [Mass/volume] in Capillary blood by Glucometer 120 mg/dL 70- 140 [facility] ID Date Data Source [id number] 05/12/2020 06:55:51 AM [facility] Name Value Range Interpretation Code Description Data Tere rce(s) Supporting Document(s) Leukocytes [#/volume] in Blood by Automated count 3.7 10*3/uL 4-10 L [facility] Erythrocytes [#/volume] in Blood by Automated count 2.88 10*6/uL 4.6- 6.1 L [facility] Hemoglobin [Mass/volume] in Blood 9.2 g/dL 13.5-18 L [facility] Hematocrit [Volume Fraction] of Blood by Automated count 26.9 % 4 1-53 L [facility] Erythrocyte mean corpuscular volume [Entitic volume] by Auto mated count 93.5 fL 80-96 [facility] Erythrocyte mean corpuscular hemoglobin [Entitic mass] by Automated count 32.0 pg 27-33 [facility] Erythrocyte mean corpuscular hemoglobin concentration [Mass/volume] by Automated count 34.2 g/dL 32.0-36.0 [facility] width [Ratio] by Automated count 15.1 % 11.5-14.5 H [facility] Platelets [#/volume] in Blood by Automated count 127 10*3/uL 150-400 L [facility] Differential cell count method - Blood [facility] Neutrophils/100 leukocytes in Blood by Automated count 66 % [facility] Lymphocytes/100 leukocytes in Blood by Automated count 17 % [facility] Monocytes/100 leukocytes in Blood by Automated count 11 % [facility] Eosinophils/100 leukocytes in Blood by Automated count 5 % [facility] Basophils/100 leukocytes in Blood by Automated count 1 % [facility] Neutrophils [#/volume] in Blood by Automated count 2.40 10*3/uL 1.8-7 .0 [facility] Lymphocytes [#/volume] in Blood by Automated count 0.64 10*3/uL 1.2-4 .0 L [facility] Monocytes [#/volume] in Blood by Automated count 0.41 10*3/uL 0-0.8 [facility] Eosinophils [#/volume] in Blood by Automated count 0.19 10*3/uL 0-0.5 [facility] Basophils [#/volume] in Blood by Automated count 0.04 10*3/uL 0-0.2 [facility] Nucleated erythrocytes/100 leukocytes [Ratio] in Blood by Automated count 0 /100{WBCs} 0-0 [facility] ID Date Data Source [id number] 05/12/2020 07:09:26 AM [facility] Value Range Interpretation Code Description Data Tere rce(s) Supporting Document(s) Prothrombin time (PT) 15.5 s 12.5-14.9 H [facility] INR in Platelet poor plasma by Coagulation assay 1.22 [facility] Routine intensity oral anticoagulation I NR is typically 2.0-3.0. Target INR must be clinically individualized. ID Date Data Source [id number] 05/12/2020 07:09:26 AM [facility] Value Range Interpretation Code Description Data Tere rce(s) Supporting Document(s) aPTT in Platelet poor plasma by Coagulation assay 41.9 s 24.0-33. 0 H [facility] ID Date Data Source [id number] 05/12/2020 08:27:08 AM [facility] Value Range Interpretation Code Description Data Tere rce(s) Supporting Document(s) Magnesium [Mass/volume] in Serum or Plasma 2.0 mg/dL 1.6-2.4 [facility] ID Date Data Source [id number] 05/12/2020 08:27:08 AM [facility] Value Range Interpretation Code Description Data Tere rce(s) Supporting Document(s) Bicarbonate [Moles/volume] in Serum 23 mmol/L -29 [facility] Chloride [Moles/volume] in Serum or Plasma 101 mmol/L 98-107 [facility] Creatinine [Mass/volume] in Serum or Plasma 3.15 mg/dL 0.70-1.20 H [facility] Glucose [Mass/volume] in Serum or Plasma 126 mg/dL 70-140 [facility] Potassium [Moles/volume] in Serum or Plasma 3.8 mmol/L 3.4-5.1 [facility] Sodium [Moles/volume] in Serum or Plasma 136 mmol/L 136-145 [facility] Urea nitrogen [Mass/volume] in Serum or Plasma 46 mg/dL 8-23 H [facility] Anion gap 3 in Serum or Plasma 12 mmol/L 8-15 [facility] Osmolality of Serum or Plasma by calculation 295 mosm/kg 275-300 [facility] Creatinine/Urea nitrogen [Mass Ratio] in Serum or Plasma 15 [facility] Calcium [Mass/volume] in Serum or Plasma 8.5 mg/dL 8.8-10.2 L [facility] Glomerular filtration rate/1.73 sq M pre dicted among non-blacks [Volume Rate/Area] in Serum or Plasma by Creatinine-based formula (MDRD) 18 mL/min/1.73m2 >60 L [facility] Glomerular filtration rate/1.73 sq M pre dicted among blacks [Volume Rate/Area] in Serum or Plasma by Creatinine-based formula (MDRD) 21 mL/min/1.73m2 >60 L [facility] ID Date Data Source [id number] 05/12/2020 12:25:55 AM [facility] Value Range Interpretation Code Description Data Tere rce(s) Supporting Document(s) Glucose [Mass/volume] in Capillary blood by Glucometer 106 mg/dL 70- 140 [facility] ID Date Data Source [id number] 05/11/2020 11:43:34 PM [facility] Value Range Interpretation Code Description Data Tere rce(s) Supporting Document(s) Troponin T.cardiac [Mass/volume] in Serum or Plasma 0.06 ng/mL <0.01 H [facility] ID Date Data Source [id number] 05/11/2020 11:55:41 PM [facility] Value Range Interpretation Code Description Data Tere rce(s) Supporting Document(s) aPTT in Platelet poor plasma by Coagulation assay 76.3 s 24.0-33. 0 H [facility] ID Date Data Source [id number] 05/11/2020 08:25:55 PM [facility] Value Range Interpretation Code Description Data Tere rce(s) Supporting Document(s) Consultation [facility] VSHJBn7eEkGQIrKy80/LYQveVFHvu2TiECvgYVw1WDijNETfX2YjGIG6bP8rOTP1LBcZVsKwQqKmUfU2 lbm GyWmiIUqSeTLXxHrsGFqLiRRhtQyrylDTcJA5FyQX2LVXgE55lANEzSQGiA1LrPKEoMyZ+Dj8EHEOopR YjYT8WJgcD4C8ix4w3Ow/qcwjuQRXNr3MN1oO3da9fwK0LZP6a54RQimuXoKbNuSKaES7z572xlZiw6g C/RYMabcfD0ezpOXfp4YrFVZRy+bLsxUe4wqAG6J+b O9APvdx4+YLSso9yoe910ad0oQuyiGxKcphFT6432DIEAvDdfQXUFzZCS7CXOCShQPzxZRhRh18zf6S/ qLAaEQgGzKv4SkQpdcMhoPATiMlNj/QDVbUrUyUxFSPUHHIZyOhWPNEpEmcdJHkCLuMNVhQx82YTgJ80 PfRpYqGR5YdFIOPMJiReOXkhVEtTkGn78+WHNq3R35 4zBBgPByo3klXmZQEkeepZv5Du9pGsudzCTHz5gpUoa0r8+Uzbek+jN1Q+omU6sef7ZLAhkzgH2CDpNQkmn u/mP2sYkdf2eXFbzS3xzz6rRuu3O4FlkACho9n40VHy3Hbdd7e0bRppc8ukljSi77Kf8JVG8gU68qOyF 5ZpJv3PlGE6oLRq/LKejkRXGV5R0Fnben1fkaLzyVG Wq+Dl1eZCv600iyz9bjXuca1RC+IonYpJ++w7PeFvkyrjvdq5+OchvHfVKN8wR0o0Pggrjh/TP6lVHUi EjPpH1qNW1uC14Dq5CqR2FaC3MDvnF3xB9qaqJbWg6yKFLKkIWbDxUztFM4l5Xm0hHfxJ/VReSA8Bdzo rSJ7w6cqbCouOyOv9SYtcIRyEpIIV4lG/kHgRAeFkG Ma0lVYsQ01nyiviutc6Ge811JTsPYjV4J/iWMeT4BtGt4kzDBoWnlsNFaIgxyj5o354nEGxRCyOViMys WQV8OOMjEbLmcK5P0xVSbrykudO90VTlF8OhjyYxoenetVNVg5bz0V2EcC8ylXJ5lLEvq6tEfaTm8+RP 7uUJDTIpQ2XrV3cwyJMi7LWuCRsaXdhC4Z4XXZ4f0k WJ2V5WQOpypw+nzB1vaeRquGCWjUUbMJGdsdlV0RUp7+XCGlYdqf1HIAmT8WgycwVC2NAHmraWf/TPHc VaAT6+a+ge1Gr26yjEJNFRBzX1B685TbIxufjZCvoNb2NgzyrUAuk5QqDeMnS9vwvcFlJQ8aovlKMyAS DRSX2JPrYt4HkLgOhEJHhureApIK2K390UZeanqipe Mn3zD1bYQvs/MoCmSL//EvfdzBuTgUyhFqLv3Wf9/0SC7OTJJoxf3oO7bGYdzrrc2mb6ue/EMnTaJ5n4 G3A3jdLElcb6DlS8lePC9rf9l+QJgtBLAYPDC4HEMQSoBCjq8El9Q5BGtnVlHdf9aPDK+en8Kf4qEFr4 qPk0Q46oNL9D8DYRrcNGmqTFyRJ6OHWQjQ3dGFiCm/ qE9L1udqCm25hwov8jzV+Jorge+aH3SCl2xddP/to28d2RFqqyrtEY1s4R0QutrbzCHWWiywz8uLE93oaNC O6Nv6K/w9Km3hz3BypWXaqXQPIQ1CPonZ+4+L5C/v6a+Bikr3X1T0LOm4TmtLdRDb+TpH5MjfE3VFBLM g1dzWhaZZJr00QYLgnFEHrN3sHKMOVO93CoLIYQ1Ch 3lbkS5A0wk2rNmYaD+ycVGQwKDjGoGSSV5m84MPLnULj8gnb8F7WDIF03eGB0CmOZ30wBgqIFK1WwNdM 5dP5sFRYZtrro2u4C7zhpgacTHJ1E4PsmlhjP8t84dyp3oxo2eLt7vsXOa9F904RAC1uBSjJNkBjoqus LYIHQJ+wGTRIzCFAiAGFNM5EDiTiGR5IY8fT1SMDCh [file] AgICAgICAgICAgICAgICAgICAgICAgICAgICAgICAg BFXnLWToOPAvLQPgHPUtABAnLEDiFQRkHQWcLSMwLVFqVIQuOJYoGIQdCJEmHA2KQKBsZYEaBXNvOAKp ICAgICAgICAgICAgICAgICAgICAgICAgICAgICAgICAgICAgICAgICAgICAgICAgICAgICAgICAgICAg SUUoYKFjTTVqXEDaUQAfPJDpAZZdGRTuJVUuRE8YIW AgICAgICAgICAgICAgICAgICAgICAgICAgICAgICAgICAgICAgICAgICAgICAgICAgICAgICAgICAgIC KbZOZiELViJYUpXTWxHTGfTMJhWMTtZUXfBEFdTHIuYURuEXWhYJ8LCRUmAZZfDPFfFVHyGHOhLADvXO AgICAgICAgICAgICAgICAgICAgICAgICAgICAgICAg LOEbCGFrDKLePTSyMOXmDPAhNZPoWKInHGOxAFUfNGBsAUKqKUQpVCLhBPCbOGYuIM2CGJIvSPBkWVMz ICAgICAgICAgICAgICAgICAgICAgICAgICAgICAgICAgICAgICAgICAgICAgICAgICAgICAgICAgICAg ICAgICAgICAgICAgICAgICAgICAgICAgICAgICAgIA 0KICAgICAgICAgICAgICAgICAgICAgICAgICAgICAgICAgICAgICAgICAgICAgICAgICAgICAgICAgIC MhBCYoGADkGFZiSZKbQPLlIMWqYASyEXLvKNXxJHBnZKTnHACuOWRsZY2LXUBqJJIsFJRpQVRiTUGyPN AgICAgICAgICAgICAgICAgICAgICAgICAgICAgICAg YQOsGZHsYMWoKHQiCPCyIMDcYCUjRTZuMMHvNHWkBHIvFZFpNMTxGWQrTHKaVLQhKFFnWA6AGFGhVZUn ICAgICAgICAgICAgICAgICAgICAgICAgICAgICAgICAgICAgICAgICAgICAgICAgICAgICAgICAgICAg ICAgICAgICAgICAgICAgICAgICAgICAgICAgICAgIC JmPP1ELSUlSVBoWLQuUNEnJZIeSLIfIRKsYJPiRMEjGLNtPEUhNWSeOYRgVAJpMKOaCVTaRQJtKDHeYT KpXLRoKKScGBRjQOGvYXAkVLKlPQSqEHFgRIPfQBPzZFQxPYTsFIDfIVTdNB9DYKNhYGXoPBUuGTDdBJ AgICAgICAgICAgICAgICAgICAgICAgICAgICAgICAg AQNxODRaVABjNTLgBHGgLWTyETRpUZVeDQAvZRUiVILwUVWsCKEbWZAhPKViOOMnZFSuOWDbUU0VFE26 mQBpr9S4VJJjDX0ywsh/Vx4DGLxplyTviWGoLF0BHxVpFS5bzw5GGzLrWL6yiq2WURlVPvQyP8U3wEPa KNBkQPOVMkRnK83mSNatTh59KMavLOKpJwVaPKz0Wd 3KVqWlX4odHRXbQwL9GAJsMbP1GYWuCbH7NSCuChMmTGBxUKZhTHQjTUYUED2GEmAdA4YygN44QYDFXa 4+ZMmbzrApTuqNYsNwGWBwj1WkZTl3DF7CEMOyVzepv4GuAcMoXOTCEDubUX4CRMW8FPK7AWIsJd2XWC RsW942gxQjQI1WDm9IVzOoLH7uao4WXlQyLMKfDijL Uro5JIiwYF2BjEGhBVsJl39yzEw3qlTjhCMMDO3zgaLHLUA7FP1vjoMnGM1QOAI8TAJaSfxwCcFeMUSz Unx4KVADCRxQReFhS0Lno3WcYdV0LNCoEbUsCKflFERbBmK7US92jQuyPD6QXBXiPYXrFF91SVDxDUJy Wd3CFj1TJlQoTP1xpg8HEsEeQZRrEvySYii4QIndXJ 6DnKRkU2AwjQNks3jAFiCbH5TWNDHpQLVpRp0VQQRyMhNoHDWdQQguQM2sJBUfTUKHwVswpgL6KQ7GWN 8orzTeLI4PXjTuDk0uZo7VMnRfP8HmH0ZrRHPzOFCKPYeiYI2SHBakPV7rYD3Kg6VAyTHznW0mwn7IOK BcLXSgBhgaak5MGpnoY6R3qNwoBWVyLuErSVZSPQpx HR3XXGNxLFQ4QMDhEbCeYITBPyAoR62lKU5TG9Mzo91yTfK1ONKtWjIqNDvxQV14bYzjnuGqlWGmuJio IS7XKi3+QVdfmpXlMquFHyqqAFUDEzBzPnRYIsYfUWMsILUvNLQtUqA1KdTmTn7DQVWxAFRaKBIzCoHn HNKiFYUsKCtvKFHyXLCvAAotVKRtISXpBD5PJqShJX VhRjQ4WUNjJLAkHXKppx6LBPCyDDGnSAH7IuAoSXYqSUHqUGubLWYzQUQzDQUnYBHzTXQnIJ0GOcGiMF YeJPC3VhIuTCUmUWLejr1XVYJnWPHpEfT2GtBhYJVmVJZrRLfmRJIfDBY0Eux5TZEvIVSxLX8LGxKySE CjYNp7EpBzZIXlXLHeop0JVGZjTFJbZDpxYWOlYMEo KAXlPSvqDRKnXXEuJSntZFZbPZZdEF1GEbTrCJGwFCEeGZPwLEAtBOWauq8WQACeRXNnBUJiQkXnHEYn OUMpGWpaBXUySZP9ViOzHKLfMGMsSU9BHtZmPHVwFAZcDRPvQSOfTMMoon4GDHQhTCAuRqU8CFZpZKKd VMKdWSopKQKxEXQ0DVqqSZGhLLZpRR3GAsAfSDAgAQ i6JtTbCFDxAXQgkf8YPALvUGSxYhecUzVxYIXjBNRuBZzwLFEtUZC5KQZoKGInICLnFM4UGaGfEXXfRH r1SJFkXYPpLTZmmr7RHGZmQSEfKMK1PTZfXLHePVNqIIvvHIWgYET6WvVfDWXwEDGqKK1DOkAhFOGlAi H9CFVjAQLfBFCuec7FQTCnMFHrAFe6EKOnNPAcBIDa VYobWELoYDZeIMqtEPDpWJIxSU4KOwPjVIPzFtU0WUAgTXRhTKEdbc9AITBfOMKsOSK8JJYeZSNwBYGp AWrxWSSaWFOuZCNzFUDeUHSlPM8ZSnIpUXDoUnN3TSKbQFQkRRUztc5QZITuTSQyCxa1JQDbKMOmQCYz LLnzFCNzZUCtQuKyVYCxKYMsBT2QPkNeBLTiRzV1Pl KhVEQfYKHovr9THMMyTGTnOHueUoWbDORbSZIfVNjnBWItITB1RWqhRUEeKYNaCF7TTsBvDFqtHDWQOv g5SIzuF8r3SDPsFg2UB9Jzh4XnDvWyWTMCNNxjDQ0bmiEqXBPcWw0YR1uWWnv0ODRjWyChSWRpFXNkAv CwMsKePJPuAaI5RLP8WpK9Mm5fYEXaENJaIAPsNLU8 EWJlTFOjOPUvRUWeZnnbMEJ2VGVsEzFzWU2RHe7XBmZ6HZV4uDImJk4PAlCkHiKXBaIsOY1YTQs= ID Date Data Source [id number] 05/11/2020 06:11:00 PM EST [facility] Name Value Range Interpretation Code Description Data Tere rce(s) Supporting Document(s) SARS-CoV-2 RNA 2019 nCoV Real-Time RT-PCR: NOT DETECTED [facility] This lab was ordered by [facility] and reported by [facility]. 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[facility] Patient has symptoms related to [facility] When did you start to experience these symptoms [Date and time] [Phen X] [facility] Patient was hospitalized because of this condition [facility] patient was admitted to ICU for condition [facility] Patient resides in a congregate care setting [facility] status [employer] ID Date Data Source [id number] 05/11/2020 08:06:09 PM [facility] Service Cmnt XXX-Imp : NoneRespiratory P CR Panel : PCR ResultsMicroorganism XXX Cult : See Labs Tab for 2019 nCoV RT-PCR resultsHAdV DNA QI MARI+non-probe : Not DetectedHCoV [id number] Nph QI MARI+non-probe : Not DetectedHCoV [id number] Nph QI MARI+non-probe : Not [id number] RNA Nph QI MARI+non-probe : Not [id number] RNA Upper resp QI MARI+probe : Not [...] DNA Nph Q MARI+non-probe : Not DetectedB [id number] DNA Nph MARI+non-probe : Not Detected Name Value Range Interpretation Code Description Data Tere rce(s) Supporting Document(s) ID Date Data Source [id number] 05/11/2020 07:12:30 PM [facility] Value Range Interpretation Code Description Data Tere rce(s) Supporting Document(s) Heparin unfractionated [Units/volume] in Platelet poor plasma by Chromogenic method 1.34 U/ml [facility] Hospit [facility] ConfirmedBY DILUTIONCalled to and read b anna GONZALEZ RN IN 8F AT 1912 BY [id number] ID Date Data Source [id number] 05/11/2020 06:19:52 PM [facility] Value Range Interpretation Code Description Data Tere rce(s) Supporting Document(s) Glucose [Mass/volume] in Capillary blood by Glucometer 140 mg/dL 70- 140 [facility] ID Date Data Source [id number] 05/11/2020 06:43:14 PM [facility] Value Range Interpretation Code Description Data Tere rce(s) Supporting Document(s) Hepatitis B virus core Ab [Presence] in Serum or Plasma by I mmunoassay Non Reactive [facility] No active or previous infection. Suscept ible to infection. ID Date Data Source [id number] 05/11/2020 06:43:14 PM [facility] Value Range Interpretation Code Description Data Tere rce(s) Supporting Document(s) Hepatitis B virus core IgM Ab [Presence] in Serum or Plasma by Immunoassay Non Reactive [facility] IgM antibodies to HBc were not detected, does not exclude the possibility of exposure to HBV. ID Date Data Source [id number] 05/11/2020 06:43:14 PM [facility] Value Range Interpretation Code Description Data Tere rce(s) Supporting Document(s) Hepatitis B virus surface Ag [Presence] in Serum or Plasma b y Immunoassay Non Reactive [facility] No active or previous infection. Suscept ible to infection. ID Date Data Source [id number] 05/11/2020 07:11:02 PM [facility] Value Range Interpretation Code Description Data Tere rce(s) Supporting Document(s) Hepatitis B virus surface Ab [Units/volume] in Serum o r Plasma by Immunoassay 66.6 m[IU]/mL >11.4 [facility] ReactiveImmunity due to hepatitis B immu nization or natural infection. ID Date Data Source [id number] 05/11/2020 05:01:26 PM [facility] Value Range Interpretation Code Description Data Tere rce(s) Supporting Document(s) aPTT in Platelet poor plasma by Coagulation assay 34.4 s 24.0-33. 0 H [facility] ID Date Data Source [id number] 05/15/2020 12:16:41 PM [facility] Value Range Interpretation Code Description Data Tere rce(s) Supporting Document(s) Coagulation factor X activity [Units/vol ume] in Platelet poor plasma by Chromogenic method 86 U/dL 50-150 [facility] ID Date Data Source [id number] 05/11/2020 04:54:09 PM [facility] Value Range Interpretation Code Description Data Tere rce(s) Supporting Document(s) Leukocytes [#/volume] in Blood by Automated count 5.2 10*3/uL 4-10 [facility] Erythrocytes [#/volume] in Blood by Automated count 3.41 10*6/uL 4.6- 6.1 L [facility] Hemoglobin [Mass/volume] in Blood 10.7 g/dL 13.5-18 L [facility] Hematocrit [Volume Fraction] of Blood by Automated count 32.2 % 4 1-53 L [facility] Erythrocyte mean corpuscular volume [Entitic volume] by Auto mated count 94.5 fL 80-96 [facility] Erythrocyte mean corpuscular hemoglobin [Entitic mass] by Automated count 31.4 pg 27-33 [facility] Erythrocyte mean corpuscular hemoglobin concentration [Mass/volume] by Automated count 33.2 g/dL 32.0-36.0 [facility] width [Ratio] by Automated count 15.3 % 11.5-14.5 H [facility] Platelets [#/volume] in Blood by Automated count 166 10*3/uL 150-400 [facility] Differential cell count method - Blood [facility] Neutrophils/100 leukocytes in Blood by Automated count 77 % [facility] Lymphocytes/100 leukocytes in Blood by Automated count 11 % [facility] Monocytes/100 leukocytes in Blood by Automated count 7 % [facility] Eosinophils/100 leukocytes in Blood by Automated count 4 % [facility] Basophils/100 leukocytes in Blood by Automated count 1 % [facility] Neutrophils [#/volume] in Blood by Automated count 3.98 10*3/uL 1.8-7 .0 [facility] Lymphocytes [#/volume] in Blood by Automated count 0.59 10*3/uL 1.2-4 .0 L [facility] Monocytes [#/volume] in Blood by Automated count 0.37 10*3/uL 0-0.8 [facility] Eosinophils [#/volume] in Blood by Automated count 0.22 10*3/uL 0-0.5 [facility] Basophils [#/volume] in Blood by Automated count 0.05 10*3/uL 0-0.2 [facility] Nucleated erythrocytes/100 leukocytes [Ratio] in Blood by Automated count 0 /100{WBCs} 0-0 [facility] ID Date Data Source [id number] 05/11/2020 05:10:12 PM [facility] Name Value Range Interpretation Code Description Data Tere rce(s) Supporting Document(s) Bicarbonate [Moles/volume] in Serum 25 mmol/L 22-29 [facility] Chloride [Moles/volume] in Serum or Plasma 102 mmol/L 98-107 [facility] Creatinine [Mass/volume] in Serum or Plasma 4.03 mg/dL 0.70-1.20 H [facility] Glucose [Mass/volume] in Serum or Plasma 148 mg/dL 70-140 H [facility] Potassium [Moles/volume] in Serum or Plasma 3.9 mmol/L 3.4-5.1 [facility] Sodium [Moles/volume] in Serum or Plasma 139 mmol/L 136-145 [facility] Urea nitrogen [Mass/volume] in Serum or Plasma 63 mg/dL 8-23 H [facility] Anion gap 3 in Serum or Plasma 12 mmol/L 8-15 [facility] Osmolality of Serum or Plasma by calculation 309 mosm/kg 275-300 H [facility] Creatinine/Urea nitrogen [Mass Ratio] in Serum or Plasma 16 [facility] Calcium [Mass/volume] in Serum or Plasma 9.2 mg/dL 8.8-10.2 [facility] Glomerular filtration rate/1.73 sq M pre dicted among non-blacks [Volume Rate/Area] in Serum or Plasma by Creatinine-based formula (MDRD) 13 mL/min/1.73m2 >60 L [facility] Glomerular filtration rate/1.73 sq M pre dicted among blacks [Volume Rate/Area] in Serum or Plasma by Creatinine-based formula (MDRD) 15 mL/min/1.73m2 >60 L [facility] ID Date Data Source [id number] 05/11/2020 05:10:12 PM [facility] Name Value Range Interpretation Code Description Data Tere rce(s) Supporting Document(s) Troponin T.cardiac [Mass/volume] in Serum or Plasma 0.06 ng/mL <0.01 H [facility] ID Date Data Source [id number] 05/11/2020 05:10:12 PM [facility] Name Value Range Interpretation Code Description Data Tere rce(s) Supporting Document(s) Magnesium [Mass/volume] in Serum or Plasma 1.9 mg/dL 1.6-2.4 [facility] ID Date Data Source [id number] 05/10/2020 05:04:00 AM EST [facility] Name Value Range Interpretation Code Description Data Tere rce(s) Supporting Document(s) SARS coronavirus 2 RNA [Presence] in Res piratory specimen by MARI with probe detection NEGATIVE [facility] This lab was ordered by [facility] a nd reported by [facility]. ID Date Data Source [id number] 02/16/2020 12:00:00 AM EST [facility] Name Value Range Interpretation Code Description Data Tere rce(s) Supporting Document(s) SARS-CoV2 Rapid Antigen [facility] This lab was [facility] by [facility] and reported by [facility]. ID Date Data Source [id number] 01/19/2020 01:30:00 PM EST [facility] ([facility], ) Name Value Range Interpretation Code Description Data Tere rce(s) Supporting Document(s) Glucose [Mass/volume] in Capillary blood by Glucometer 131 mg/dL 83-110 Above high normal [facility] ([facility], ) ID Date Data Source [id number] 01/19/2020 01:30:00 PM EST [facility] ([facility] Name Value Range Interpretation Code Description Data Tere rce(s) Supporting Document(s) Glucose [Mass/volume] in Capillary blood by Glucometer 131 mg/dL 83-110 Above high normal [facility] ([facility] ) Procedure Social History Code Duration Value Status Description Data Source(s ) Smoking 07/26/2020 12:00:00 AM EDT Patient has never smoked co mpleted Patient has never smoked [facility] ([facility]) Alcohol intake 05/11/2020 12:00:00 AM EST Current non-d cami of alcohol (finding) completed Current non-drinker of alcohol (finding) [facility] Tobacco use and exposure 05/11/2020 12:00:00 AM EST Never used co mpleted Never used [facility] Smoking 05/11/2020 12:00:00 AM EST Never smoker completed Never s [facility] Smoking 05/08/2020 12:00:00 AM EST Never Smoked A Pipe complet ed Never Smoked A Pipe [facility] ([facility]) Vital Signs ID Date Data Source UNK Name Value Range Interpretation Code Description Data Source(s) Heart rate 70 /min 70 /min [facility] ([facility] Respiratory rate 16 /min 16 /min [facility] ( [facility] Body height 72 [in_i] 72 [in_i] [facility] ([facility] 6'0" Body mass index (BMI) [Ratio] 21.2 kg/m2 21.2 k g/m2 [facility] Oxygen saturation in Arterial blood by Pulse oximetry 98 % 98 % [facility] ([facility] Systolic blood pressure 130 mm[Hg] 130 mm[Hg] M [facility] ([facility] Body temperature 97.0 [degF] 97.0 [degF] [facility] ([facility] Diastolic blood pressure 80 mm[Hg] 80 mm[Hg] [facility] ([facility] Body weight 156.00 [lb_av] 156.00 [lb_av] [facility] ([facility] [place] body weight 178 [lb_av] 178 [lb_av] [facility] ([facility] Body weight 153.00 [lb_av] 153.00 [lb_av] [facility] ([facility]) Body height 74 [in_i] 74 [in_i] [facility] ([facility] 6'2" Body mass index (BMI) [Ratio] 19.6 kg/m2 19.6 k g/m2 [facility] ([facility]) Systolic blood pressure--sitting 134 mm[Hg] 134 mm[Hg] [facility] [facility]) Ra, medium cuff Diastolic blood pressure--sitting 70 mm[Hg] 70 mm[Hg] MED[facility] ([facility]) Ra, medium cuff Systolic blood pressure 184 mm[Hg] 184 mm[Hg] M EDSHAYAN ([facility], ) Diastolic blood pressure 80 mm[Hg] 80 mm[Hg] [facility] ([facility], ) Body height 73 [in_i] 73 [in_i] MEDENT ([facility], ) 6'1" Body surface area Derived from formula 1.96 m2 1.96 m2 [facility], ) Body weight 161.38 [lb_av] 161.38 [lb_av] MEDEN T ([facility]) Body mass index (BMI) [Ratio] 21.3 kg/m2 21.3 k g/m2 MED[facility] ([facility]) [place] body weight 184 [lb_av] 184 [lb_av] MEDEN T ([facility]) Body weight 73.200 kg 73.200 kg MEDENT ([facility]) Respiratory rate 14 /min 14 /min MEDENT ( [facility] Body height 72 [in_i] 72 [in_i] MEDENT ([facility] 6'0" Body weight 163.00 [lb_av] 163.00 [lb_av] MEDEN T ([facility] [place] body weight 178 [lb_av] 178 [lb_av] MEDEN T ([facility] Body mass index (BMI) [Ratio] 22.1 kg/m2 22.1 k g/m2 MED[facility] ([facility] Oxygen saturation in Arterial blood by Pulse oximetry 92 % 92 % MEDENT ([facility] Systolic blood pressure 158 mm[Hg] 158 mm[Hg] M EDENT ([facility] Diastolic blood pressure 88 mm[Hg] 88 mm[Hg] MED[facility] ([facility] Body temperature 97.6 [degF] 97.6 [degF] MED[facility] ([facility] Heart rate 80 /min 80 /min MEDENT ([facility] Systolic blood pressure 146 mm[Hg] 146 mm[Hg] M EDENT ([facility] Diastolic blood pressure 74 mm[Hg] 74 mm[Hg] MEDENT ([facility] Systolic blood pressure 136 mm[Hg] 136 mm[Hg] M EDENT ([facility] Diastolic blood pressure 80 mm[Hg] 80 mm[Hg] MEDENT ([facility] Body temperature 96.5 [degF] 96.5 [degF] MEDENT ([facility] Heart rate 86 /min 86 /min MEDENT ([facility] Respiratory rate 16 /min 16 /min MEDENT ( [facility] Body height 72 [in_i] 72 [in_i] MEDENT ([facility] 6'0" Body weight 159.00 [lb_av] 159.00 [lb_av] MEDEN T ([facility] [place] body weight 178 [lb_av] 178 [lb_av] MEDEN T ([facility] Body mass index (BMI) [Ratio] 21.6 kg/m2 21.6 k g/m2 MEDENT ([facility] Oxygen saturation in Arterial blood by Pulse oximetry 97 % 97 % MEDENT ([facility] Body weight 159.00 [lb_av] 159.00 [lb_av] MEDEN T ([facility]) Body height 74 [in_i] 74 [in_i] MEDENT ([facility]i [facility]) 6'2" Body mass index (BMI) [Ratio] 20.4 kg/m2 20.4 k g/m2 MED[facility] ([facility]) Heart rate 75 /min 75 /min MEDENT ([facility]) Systolic blood pressure--sitting 128 mm[Hg] 128 mm[Hg] MED[facility] ([facility]) Ra, medium cuff Diastolic blood pressure--sitting 70 mm[Hg] 70 mm[Hg] MED[facility] ([facility]) Ra, medium cuff Body mass index (BMI) [Ratio] 22.2 kg/m2 22.2 k g/m2 MED[facility] ([facility], ) Systolic blood pressure 132 mm[Hg] 132 mm[Hg] M EDENT ([facility], ) Diastolic blood pressure 80 mm[Hg] 80 mm[Hg] MED[facility] ([facility], ) Body height 73 [in_i] 73 [in_i] [facility] ([facility], ) 6'1" Body weight 168.56 [lb_av] 168.56 [lb_av] MEDEN T ([facility]) [place] body weight 184 [lb_av] 184 [lb_av] MEDEN T ([facility]) Body weight 76.460 kg 76.460 kg MEDENT ([facility]) Body surface area Derived from formula 2.00 m2 2.00 m2 MED[facility] ([facility]) Body weight 160.00 [lb_av] 160.00 [lb_av] MEDEN T ([facility]) Body height 74 [in_i] 74 [in_i] MED[facility] ([facility]) 6'2" Body mass index (BMI) [Ratio] 20.5 kg/m2 20.5 k g/m2 MED[facility] ([facility]) Heart rate 67 /min 67 /min MED[facility] ([facility]io [facility]) Systolic blood pressure--sitting 124 mm[Hg] 124 mm[Hg] MED[facility] ([facility]) Ra, medium cuff Diastolic blood pressure--sitting 80 mm[Hg] 80 mm[Hg] [facility] ([facility]) Ra, medium cuff Systolic blood pressure 142 mm[Hg] 142 mm[Hg] M EDENT ([facility] Diastolic blood pressure 86 mm[Hg] 86 mm[Hg] MED[facility] ([facility] Body height 72 [in_i] 72 [in_i] MEDENT ([facility] 6'0" Body weight 160.00 [lb_av] 160.00 [lb_av] MEDEN T ([facility] Body temperature 97.3 [degF] 97.3 [degF] MED[facility] ([facility] Heart rate 73 /min 73 /min [facility] ([facility] Respiratory rate 16 /min 16 /min MED[facility] ( [facility] [place] body weight 178 [lb_av] 178 [lb_av] MEDEN T ([facility] Body mass index (BMI) [Ratio] 21.7 kg/m2 21.7 k g/m2 [facility] ([facility] Oxygen saturation in Arterial blood by Pulse oximetry 98 % 98 % [facility] ([facility] Systolic blood pressure 200 mm[Hg] 200 mm[Hg] M [facility] ([facility]) Diastolic blood pressure 100 mm[Hg] 100 mm[Hg] [facility] ([facility]) Body height 73 [in_i] 73 [in_i] [facility] ([facility]) 6'1" Body weight 159.12 [lb_av] 159.12 [lb_av] MEDEN T ([facility]) Body mass index (BMI) [Ratio] 21.0 kg/m2 21.0 k g/m2 [facility] ([facility]) [place] body weight 184 [lb_av] 184 [lb_av] MEDEN T ([facility]) Body weight 72.179 kg 72.179 kg [facility] ([facility]) Body surface area Derived from formula 1.95 m2 1.95 m2 [facility] ([facility]) Systolic blood pressure 188 mm[Hg] 188 mm[Hg] [facility] ([facility]) Diastolic blood pressure 98 mm[Hg] 98 mm[Hg] [facility] ([facility]) Body height 73 [in_i] 73 [in_i] [facility] ([facility]) 6'1" Body weight 157.38 [lb_av] 157.38 [lb_av] MEDEN T ([facility]) Body mass index (BMI) [Ratio] 20.8 kg/m2 20.8 k g/m2 [facility] ([facility]) [place] body weight 184 [lb_av] 184 [lb_av] MEDEN T ([facility]) Body weight 71.385 kg 71.385 kg [facility] ([facility]) Body surface area Derived from formula 1.94 m2 1.94 m2 [facility] ([facility]) Systolic blood pressure 182 mm[Hg] 182 mm[Hg] [facility] ([facility]) Diastolic blood pressure 83 mm[Hg] 83 mm[Hg] [facility] ([facility]) Body height 73 [in_i] 73 [in_i] MEDSHAYAN ([facility]) 6'1" Body weight 159.12 [lb_av] 159.12 [lb_av] MEDEN T ([facility]) Body mass index (BMI) [Ratio] 21.0 kg/m2 21.0 k g/m2 [facility] ([facility]) [place] body weight 184 [lb_av] 184 [lb_av] MEDEN T ([facility]) Body weight 72.179 kg 72.179 kg [facility] ([facility]) Body surface area Derived from formula 1.95 m2 1.95 m2 [facility] ([facility]) ID Date Data Source [id number] 06/28/2020 12:28:07 PM EDT [facility] Name Value Range Interpretation Code Description Data Source(s) WEIGHT RECORDED 156.31 lb 156.31 lb [facility] WEIGHT RECORDED 163.36 lb 163.36 lb [facility] WEIGHT RECORDED 159.17 lb 159.17 lb [facility] WEIGHT RECORDED 172.62 lb 172.62 lb [facility] WEIGHT RECORDED 174.16 lb 174.16 lb [facility] WEIGHT RECORDED 166.8 lb 166.8 lb [facility] WEIGHT RECORDED 163.14 lb 163.14 lb [facility] WEIGHT RECORDED 163 lb 163 lb [facility] WEIGHT RECORDED 162.04 lb 162.04 lb [facility] WEIGHT RECORDED 167.55 lb 167.55 lb [facility] TRANSFER FROM [facility] Patient Treatment Plan of Care Planned Activity Planned Date Details Description Data Source (s) Tamsulosin hydrochloride 0.4 MG Oral Capsule 05/23/2020 12:00:00 AM [facility] POLYETHYLENE GLYCOL 3350 142 MG/ML Oral Solution 05/22/2020 12:00:0 0 AM [facility] Docusate Sodium 100 MG Oral Capsule 05/22/2020 12:00:00 AM [facility] Lidocaine 5 % External Patch (LIDODERM) 05/22/2020 12:00:00 AM [facility] Levothyroxine Sodium 0.088 MG Oral Tablet 05/22/2020 12:00:[address] [facility] gabapentin 100 MG Oral Capsule 05/22/2020 12:00:00 AM [facility] Venofer 20 MG/ML Intravenous Solution (iron sucrose) 12:00:00 AM [facility] 0.3 ML Methoxy polyethylene glycol-epoet in beta 0.167 MG/ML Prefilled Syringe [Mircera] 05/22/2020 12:00:[address] [facility] Calcitriol 0.51569 MG Oral Capsule 05/22/2020 12:00:00 AM [facility] Alprazolam 0.5 MG Oral Tablet 05/22/2020 12:00:00 AM [facility] Tab-A-Jemal/Beta Carotene Oral Tablet 05/22/2020 12:00:00 AM [facility] Allopurinol 100 MG Oral Tablet 05/22/2020 12:00:00 AM [facility] torsemide 100 MG Oral Tablet 05/21/2020 12:00:00 AM [facility] pantoprazole 40 MG Delayed Release Oral Tablet 05/21/2020 12:00:00 AM [facility] Magnesium Oxide 400 MG Oral Tablet 05/21/2020 12:00:00 AM [facility] Levothyroxine Sodium 0.088 MG Oral Tablet 05/21/2020 12:00:[address] [facility] torsemide 10 MG Oral Tablet 05/21/2020 12:00:00 AM [facility] POLYETHYLENE GLYCOL 3350 142 MG/ML Oral Solution 05/21/2020 12:00:0 0 AM [facility] Lidocaine 5 % External Patch (LIDODERM) 05/21/2020 12:00:00 AM [facility] Diclofenac Sodium 0.01 MG/MG Topical Gel 05/20/2020 12:00:00 AM [facility] Acetaminophen 325 MG Oral Tablet 05/20/2020 12:00:00 AM [facility] Diclofenac Sodium 0.01 MG/MG Topical Gel 05/17/2020 10:48:30 PM [facility] POLYETHYLENE GLYCOL 3350 142 MG/ML Oral Solution 05/16/2020 07:49:4 4 AM [facility] clopidogrel 75 MG Oral Tablet 05/16/2020 12:00:00 AM [facility] dextrose 50 % IV solution 25 mL 05/11/2020 04:14:29 PM [facility] Glucagon 1 MG Injection 05/11/2020 04:14:29 PM [facility] Glucose 0.417 MG/MG Oral Gel 05/11/2020 04:14:29 PM [facility] valsartan 160 MG Oral Tablet 03/13/2020 12:00:00 AM [facility] torsemide 100 MG Oral Tablet 03/03/2020 12:00:00 AM [facility] Tamsulosin hydrochloride 0.4 MG Oral Capsule 10/25/2019 12:00:00 AM [facility] sennosides, [facility] 8.6 MG Oral Tablet 10/25/2019 12:00:00 AM [facility] Furosemide 40 MG Oral Tablet 10/25/2019 12:00:00 AM [facility] 168 HR Clonidine 0.23520 MG/HR Transdermal Patch 10/22/2019 12:00:0 0 AM [facility] ONETOUCH DELICA LANCETS 33G [facility] [place] 02/15/2018 [facility]2018 12:00:00 AM [facility] Allopurinol 300 MG Oral Tablet 01/17/2018 12:00:00 AM [facility] BD PEN NEEDLE GURPREET U/F 32G X 4 MM [facility] [place] 01/06/2018 12:00:00 AM [facility] Mupirocin 0.02 MG/MG Topical Ointment 12/03/2017 12:00:00 AM [facility] 0.3 ML Methoxy polyethylene glycol-epoet in beta 0.167 MG/ML Prefilled Syringe [Mircera] [facility] Venofer 20 MG/ML Intravenous Solution (iron sucrose) [facility] Calcitriol 0.94971 MG Oral Capsule [facility] Alprazolam 0.5 MG Oral Tablet [facility] Levothyroxine Sodium 0.088 MG Oral Tablet [facility] gabapentin 100 MG Oral Capsule [facility] torsemide 100 MG Oral Tablet [facility] Lidocaine 5 % External Patch (LIDODERM) [facility] Allopurinol 100 MG Oral Tablet [facility] Multiple Vitamin (MULTIVITAMIN) tablet [facility] Docusate Sodium 100 MG Oral Capsule [facility] latanoprost 0.05 MG/ML Ophthalmic Solution [facility] POLYETHYLENE GLYCOL 3350 142 MG/ML Oral Solution [facility] Ergocalciferol 75325 UNT Oral Capsule [facility] potassium chloride SA (K-DUR,KLOR-CON) 10 MEQ tablet [facility] lidocaine (LIDODERM) 5 % Ups [facility] Isosorbide Dinitrate 10 MG Oral Tablet [facility] glimepiride 4 MG Oral Tablet [facility] 3 ML Insulin Glargine 100 UNT/ML Pen Injector [facility] Aspirin 81 MG Oral Tablet [facility] 24 HR metoprolol succinate 50 MG Extended Release Oral Tablet [facility]
[2021-01-21 21:57] LABS: CK-MB VALUE MASS 1.6 NG/ML (<3.6); CPK CREATINE PHOSPHOKINASE 42 U/L (39-308); MB/CK RELATIVE INDEX 3.81 (< OR =4); NT-PRO BNP 6016 PG/ML (<450); TROPONIN I < 0.02 NG/ML (< 0.10)
[2021-01-21] MEDS ORDERED: LORazepam 2 MG/ML VIAL IV STA (21:59)
--- NOTE | 2021-01-21 23:42 | REPVR ---
PROCEDURE INFORMATION: Exam: MR Head Without Contrast Exam date and time: 01/21/2021 10:53 PM Age: 75 years old Clinical indication: Dizziness; Additional info: Dizziness, R/O CVA TECHNIQUE: Imaging protocol: MR of the head without contrast. COMPARISON: CT Head without contrast 01/21/2021 8:00 PM FINDINGS: Brain: Normal. No acute infarct. No hemorrhage. No significant white matter disease. No edema. Cerebral ventricles: Normal. No ventriculomegaly. Bones/joints: Unremarkable. Paranasal sinuses: Normal as visualized. No acute sinusitis. Mastoid air cells: Normal as visualized. No mastoid effusion. Orbital cavity: Unremarkable. Soft tissues: Unremarkable. IMPRESSION: No acute findings. Electronically signed by: Reinaldo Robles On 01/21/2021 23:41:36 PM
--- NOTE | 2021-01-21 23:47 | REPVR ---
PROCEDURE INFORMATION: Exam: MRA Head Without Contrast; Arteriography Exam date and time: 01/21/2021 10:36 PM Age: 75 years old Clinical indication: Dizziness and giddiness; Additional info: Dizziness, R/O CVA TECHNIQUE: Imaging protocol: Magnetic resonance angiography head without contrast. Exam focused on the arteries. COMPARISON: CT Head without contrast 01/21/2021 8:00 PM FINDINGS: ANTERIOR CIRCULATION: Right internal carotid artery: Intracranial segment is patent with no significant stenosis. No aneurysm. Right middle cerebral artery: No occlusion or significant stenosis. No aneurysm. Right anterior cerebral artery: No occlusion or significant stenosis. No aneurysm. Left internal carotid artery: Intracranial segment is patent with no significant stenosis. No aneurysm. Left middle cerebral artery: No occlusion or significant stenosis. No aneurysm. Left anterior cerebral artery: No occlusion or significant stenosis. No aneurysm. POSTERIOR CIRCULATION: Right vertebral artery: No occlusion or significant stenosis. No aneurysm. Left vertebral artery: No occlusion or significant stenosis. No aneurysm. Basilar artery: No occlusion or significant stenosis. No aneurysm. Right posterior cerebral artery: No occlusion or significant stenosis. No aneurysm. Left posterior cerebral artery: moderate stenosis of left posterior cerebral artery. IMPRESSION: No acute abnormality. 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 Electronically signed by: Reinaldo Robles On 01/21/2021 23:47:12 PM
--- NOTE | 2021-01-21 23:50 | REPVR ---
PROCEDURE INFORMATION: Exam: MRA Neck Without Contrast Exam date and time: 01/21/2021 10:53 PM Age: 75 years old Clinical indication: Dizziness and giddiness; Additional info: Dizziness, R/O CVA TECHNIQUE: Imaging protocol: Magnetic resonance angiography of the neck without contrast. COMPARISON: CT Head without contrast 01/21/2021 8:00 PM FINDINGS: Right common carotid artery: No stenosis. No dissection or occlusion. Right internal carotid artery: No stenosis of the extracranial segment. No dissection or occlusion. Right external carotid artery: No stenosis. No dissection or occlusion of the origin. Right vertebral artery: No stenosis. No dissection or occlusion. Left common carotid artery: No stenosis. No dissection or occlusion. Left internal carotid artery: No stenosis of the extracranial segment. No dissection or occlusion. Left external carotid artery: No stenosis. No dissection or occlusion of the origin. Left vertebral artery: No stenosis. No dissection or occlusion. IMPRESSION: No stenosis or occlusion. REFERENCES: NASCET CRITERIA. The degree of internal carotid artery stenosis is based on NASCET criteria. Normal is no stenosis. Mild is less than 50% stenosis. Moderate is 50-69% stenosis. Severe is 70% to 99% stenosis. Total occlusion is no detectable patent lumen. Electronically signed by: Reinaldo Robles On 01/21/2021 23:50:04 PM
--- OUTSIDE RECORDS SUMMARY | 2021-01-22 01:18 | CCD ---
Author Author [facility] Organization [facility] Address Unknown Phone Unavailable Care Team Providers Care C.O.D. Clerk Name Role Phone TONG CARTAGENA MD Unavailable [...] Unavailable Unavailable TONG CARTAGENA MD Unavailable Unavailable TOGN CARTAGENA MD Unavailable Unavailable TONG CARTAGENA MD [...] Unavailable TONG CARTAGENA MD Unavailable Unavailable TONG CARATGENA MD Unavailable Unavailable TONG CARTAGENA MD Unavailable [...] Unavailable NOBLE, L LIZETH MD Unavailable Unavailable GALLATIN, L LIZETH MD Unavailable Unavailable GALLATIN, L LIZETH MD Unavailable Unavailable GALLATIN, L LIZETH MD Unavailable Unavailable GALLATIN, L LIZETH MD Unavailable Unavailable GALLATIN, L LIZETH MD Unavailable Unavailable GALLATIN, L LIZETH MD Unavailable Unavailable GALLATIN, L LIZETH MD Unavailable Unavailable GALLATIN, L LIZETH MD Unavailable Unavailable GALLATIN, L LIZETH MD Unavailable Unavailable GALLATIN, L LIZETH MD Unavailable Unavailable GALLATIN, L LIZETH MD Unavailable Unavailable GALLATIN, L LIZETH MD Unavailable Unavailable GALLATIN, L LIZETH MD Unavailable Unavailable GALLATIN, L LIZETH MD Unavailable Unavailable GALLATIN, L LIZETH MD Unavailable Unavailable GALLATIN, L LIZETH MD Unavailable Unavailable GALLATIN, L LIZETH MD Unavailable Unavailable GALLATIN, L LIZETH MD Unavailable Unavailable GALLATIN, L LIZETH MD Unavailable Unavailable GALLATIN, L LIZETH MD Unavailable Unavailable GALLATIN, L LIZETH MD Unavailable Unavailable GALLATIN, L LIZETH MD Unavailable Unavailable GALLATIN, L LIZETH MD Unavailable Unavailable GALLATIN, L LIZETH MD Unavailable Unavailable GALLATIN, L LIZETH MD Unavailable Unavailable GALLATIN, L LIZETH MD Unavailable Unavailable GALLATIN, L LIZETH MD Unavailable Unavailable GALLATIN, L LIZETH MD Unavailable Unavailable GALLATIN, L LIZETH MD Unavailable Unavailable GALLATIN, L LIZETH MD Unavailable Unavailable GALLATIN, L LIZETH MD Unavailable Unavailable GALLATIN, L LIZETH MD Unavailable Unavailable GALLATIN, L LIZETH MD Unavailable Unavailable GALLATIN, L LIZETH MD Unavailable Unavailable GALLATIN, L LIZETH MD Unavailable Unavailable GALLATIN, L LIZETH MD Unavailable Unavailable GALLATIN, L LIZETH MD Unavailable Unavailable GALLATIN, L LIZETH MD Unavailable Unavailable GALLATIN, L LIZETH MD Unavailable Unavailable GALLATIN, L LIZETH MD Unavailable Unavailable GALLATIN, L LIZETH MD Unavailable Unavailable GALLATIN, L LIZETH MD Unavailable Unavailable GALLATIN, L LIZETH MD Unavailable Unavailable GALLATIN, L LIZETH MD Unavailable Unavailable GALLATIN, L LIZETH MD Unavailable Unavailable GALLATIN, L LIZETH MD Unavailable Unavailable GALLATIN, L LIZETH MD Unavailable Unavailable GALLATIN, L LIZETH MD Unavailable Unavailable REAL, L [...] RPA Unavailable Unavailable Zakia Traylor MD Unavailable [email or web address] Zakia Traylor MD Unavailable [email or web address] Larson, Jacky Unavailable Unavailable Larson, Jacky Unavailable [...] Unavailable Unavailable Larson, Jacky Unavailable Unavailable Larson, Jakcy Unavailable Unavailable Larson, Jacky Unavailable Unavailable Larson, [...] Unavailable VELASCO, PERLA MBBS Unavailable Unavailable VELASCO, PRELA MBBS Unavailable Unavailable VELASCO, PERLA MBBS Unavailable [...] is protected by Article 27-F of the [facility] Public Health law. If you continue you may have access to information: Regarding HIV / AIDS; Provided by facilities licensed or operated by the [facility] Office of Mental Health; or Provided by the [facility] Office for People With Developmental Disabilities. If such information is present, then the following [facility] mandated warning applies: This information has [...] law may result in a fine or half-way sentence or both. A general authorization for the release of medical or other information is NOT sufficient authorization for further disc losure. Allergies and Adverse Reactions Type Description Substance Reaction Status Data Source(s ) Drug allergy Tetracyclines & Related Tetracyclines & Related PCC ([facility]) Drug allergy Sulfa Antibiotics Sulfa Antibiotics [facility] ([facility]) Drug allergy Penicillins Penicillins [facility] ([facility]) Drug allergy Iodinated Diagnostic Agents Iodinated Diagnostic Agents [facility] ([facility]) Drug allergy Keflex Keflex PCC ([facility]) Drug allergy Minoxidil Minoxidil [facility] ([facility]) Drug allergy hydrALAZINE hydrALAZINE PCC ([facility]) Drug allergy Erythromycin Erythromycin PCC ([facility]) Drug allergy Carvedilol Carvedilol PCC ([facility]) Drug allergy Amlodipine Amlodipine PCC ([facility]) To Be Determined To Be Determined PC C ([facility]) Propensity to adverse reactions MINOXIDIL MINOXIDIL [facility] Family History Family Member Name Family Member [...] EDT - 08/16/2020 03:37:18 PM EDT [facility] ([facility] ) Outpatient Attender: CARLA HUMPHRIES [facility] TONG Triana MD 07/31/2020 02:39:00 PM EDT - 07/31/2020 02:39:00 PM EDT [facility] Outpatient Attender: Sebastian CARRILLO [place] [facility] 01:30:00 PM EDT [facility] Outpatient Attender: MANE CARRILLO Main Office 07/26/2020 0 2:00:00 PM EDT [facility] ([facility]) Outpatient Attender: Barb Silveira/Melisa/Darryl/ Daryl 07/15/2020 02:15:00 PM EDT [facility] ([facility] Outpatient Attender: FREDA CASTELLANOS MD [place] [facility] 02:00:00 PM EDT [facility] ([facility] Outpatient Attender: GORDON BUCHANAN MD 07/03/2020 12:00:00 AM [facility] Outpatient Attender: Jacky Larson 06/17/2020 12:00:00 AM E [facility] Outpatient Attender: Sebastian CARRILLO [place] [facility] 04/2020 03:00:00 PM EDT [facility] ([facility] Outpatient Attender: MANE CARRILLO Main Office 06/12/2020 0 3:00:00 PM EDT [facility] ([facility]) Inpatient Attender: ENRIQUE DANG MD 05/22 03:42:00 PM EST - 06/04/2020 11:51:00 AM EDT PCC ([facility]) Patient discharged. Inpatient Attender: ENRIQUE DANG MD 05/22/2020 10:42:00 AM EST PCC ([facility]) Admission cancelled. Disregard status an d admitted date. Inpatient Attender: EDDI TILLEY Day nder: Dave PandaAttender: JOSEY NOEL MDAttender: GORDON BUCHANAN MDAdmitter: GORDON BUCHANAN MDReferrer: GORDON BUCHANAN MDConsultant: Markel Hurtado JrConsultant: PERLA VELASCO MBBSConsultant: JOSEY NOEL MDConsultant: Sebastian FlowersgaConsultant: LIZETH NOBLE MDConsultant: Kareem Traylor MD [id number] 05/11/2020 12:00:00 AM EST - 05/22/2020 04:13:00 PM EST Non- ST elevation (NSTEMI) myocardial infarction [facility] Non-ST elevation (NSTEMI) myocardial inf arction Patient discharged. Outpatient Attender: CARLA HUMPHRIES DPMConsultant: TONG Triana MD 05/08/2020 01:58:00 PM EST - 05/08/2020 01:58:00 PM EST [facility] Outpatient Attender: CARLA HUMPHRIES DPM [facility] 05/08/2020 0 1:00:00 PM EST [facility] ([facility]) Outpatient Attender: Barb Silveira/Melisa/Darryl/ Reindl 05/06/2020 02:00:00 PM EST [facility] ([facility] Outpatient Attender: MANE CARRILLO Main Office 05/01/2020 0 1:30:00 PM EST [facility] ([facility]) Outpatient Attender: Sebastian CARRILLO [place] [facility] 10/2020 02:00:00 PM EST [facility] ([facility] Outpatient Attender: Barb Silveira/Melisa/Darryl/ Reindl 02/22/2020 09:30:00 AM EST [facility] ([facility] Outpatient Attender: Pushpa Silveira/Melisa/Darryl/R eindl 02/12/2020 12:00:00 PM EST [facility] ([facility] Outpatient Attender: Barb Silveira/Melisa/Darryl/ Reindl 01/01/2020 01:00:00 PM EDT [facility] ([facility] ) Outpatient Attender: TONG CARTAGENA MDConsultant: TONG Triana MD 10/30/2019 08:30:00 PM EDT - 10/30/2019 08:40:00 PM EDT [facility] Immunizations Vaccine Date Status Description Data Source(s) COVID-19 VACCINE Jenn 05/21/2020 12:00:00 AM EST completed [facility] Vaccine Series Complete: YESThis Data wa s Submitted to [facility] Via [employer]. [facility] 05/21/2020 12:00:00 AM EST completed <td I D="[id number]">Jenn SARS-CoV-2 Vaccine</td><td>05/21/2020</td><td></td> [facility] Medications Medication Brand Name Start Date Product [...] 07/31/2020 12:00:00 A M EDT active [facility] ([facility]) Betamethasone 0.5 MG/ML / Clotrimazole 10 MG/ML Topica l Cream Clotrimazole/Betamethasone Dipropionate 07/31/2020 12:00:00 AM EDT active [facility] ([facility]) 80 mg 07/18/2020 12:00:00 AM EDT [...] AM EDT tablet,delayed release (DR/EC) 90 T RGEER ONE TABLET BY MOUTH EVERY DAY TAKE ONE TABLET BY MOUTH EVERY DAY SOLD: 11/11/2020 [facility] Acetaminophen 325 MG Oral Tablet Acetaminophen 06/14/2020 12:00:00 AM EDT ORAL active [facility] ([facility] valsartan 160 MG Oral Tablet Valsartan 06/14/2020 12:00:00 AM EDT ORAL active [facility] ([facility] torsemide 100 MG Oral Tablet Torsemide 06/11/2020 12:00:00 AM EDT ORAL active [facility] ([facility]) 168 HR Clonidine 0.99797 MG/HR Transdermal Patch Clonidine 06/11/2020 12:00:00 AM EDT active [facility] ([facility]) Famotidine 20 MG Oral Tablet Famotidine 06/11/2020 12:00:00 AM EDT ORAL active [facility] ([facility]) Diclofenac Sodium 0.01 MG/MG Topical Gel Diclofenac Sodium 06/11/2020 12:00:00 AM EDT active [facility] ([facility] clopidogrel 75 MG Oral Tablet Clopidogrel Bisulfate 06/11/2020 1 2:00:00 AM EDT ORAL active [facility] ( [facility]) atorvastatin 40 MG Oral Tablet Atorvastatin Calcium 06/11/2020 1 2:00:00 AM EDT ORAL active [facility] ( [facility]) Tamsulosin hydrochloride 0.4 MG Oral Capsule Tamsulosin HCL 06/11/2020 12:00:00 AM EDT ORAL active [facility] Magnesium Oxide 400 MG Oral Tablet Magnesium Oxide 06/11/2020 12:00 :00 AM EDT ORAL active [facility] ([facility]) Acetaminophen 325 MG Oral Tablet Acetaminophen 06/11/2020 12:00:00 AM EDT active [facility] ([facility]) Tamsulosin hydrochloride 0.4 MG Oral Cap blair Tamsulosin HCl 0.4 MG Oral Capsule (FLOMAX) Tamsulosin HCl 0.4 MG Oral Capsule (FLOMAX) 05/23/2020 12:00 :00 AM EST 0.8 mg Oral active Take 2 capsules by mouth daily [facility] Tab-A-Jemal/Beta Carotene Oral Tablet 5594-5102-86 05/22/2020 12:00: 00 AM EST 1 {tbl} Oral active Take 1 tablet by mouth d [facility] Allopurinol 100 MG Oral Tablet Allopurinol 100 MG Oral Tablet (ZYLOPRIM) Allopurinol 100 MG Oral Tablet (ZYLOPRIM) 05/22/2020 12:00:00 AM EST 100 mg Oral active Take 1 tablet by shereen th daily with food. [facility] Venofer 20 MG/ML Intravenous Solution (iron sucrose) 0517-23 40-10 05/22/2020 12:00:00 AM EST 50 mg Intravenous active Inject 2.5 mLs into the vein Every eday at dialysis only. [facility] 0.3 ML Methoxy polyethylene glycol-epoet in beta 0.167 MG/ML Prefilled Syringe [Mircera] Mircera 50 MCG/0.3ML Injection Solution Prefilled Syringe (Methoxy PEG-Epoetin Beta) Mircera 50 MCG/0.3ML Injection Solution Prefilled Syringe (Methoxy PEG-Epoetin Beta) 05/22/2020 12:00:00 AM EST 50 ug Inject ion active Inject [address] dir ected every 28 (twenty-eight) days at dialysis only. [facility] Levothyroxine Sodium 0.088 MG Oral Table t Levothyroxine Sodium 88 MCG Oral Tablet (SYNTHROID) Levothyroxine Sodium 88 MCG Oral Tablet (SYNTHROID) 05/22/2020 12:00:00 AM EST 88 ug Oral aborted Take 1 tablet by mouth daily [facility] gabapentin 100 MG Oral Capsule Gabapentin 100 MG Oral Capsule (NEURONTIN) Gabapentin 100 MG Oral Capsule (NEURONTIN) 05/22/2020 12:00:00 AM EST 100 mg Oral aborted Take 1 capsule by mo ut Two Times Daily [facility] Lidocaine 5 % External Patch (LIDODERM) 6617-5627-13 05/23/19 12:00:00 AM EST 2 {patch} Transdermal active Place 2 pa tches onto the skin every 24 (twenty-four) hours for 3 daysas directed 12 hours on 12 hours off. [facility] Calcitriol 0.01695 MG Oral Capsule Calcitriol 0.25 MCG Oral Capsule (ROCALTROL) Calcitriol 0.25 MCG Oral Capsule (ROCALTROL) 05/22/2020 12:00:00 AM EST 0.25 ug Oral active Take 1 cap blair by mouth 3 (three) times a week on Wednesday, and Wednesday at dialysis only. [facility] Alprazolam 0.5 MG Oral Tablet ALPRAZolam 0.5 MG Oral T ablet (XANAX) ALPRAZolam 0.5 MG Oral Tablet (XANAX) 05/22/2020 12:00:00 AM EST 0.5 mg Oral active Take 1 tablet by mouth Two t imes daily as needed Max daily of 2 tablets. , Max Daily Dose: 1 mg [facility] POLYETHYLENE GLYCOL 3350 142 MG/ML Oral Solution Polyethylene Glycol 3350 17 GM Oral Packet (MIRALAX) Polyethylene Glycol 3350 17 GM Oral Packet (MIRALAX) 05/22/2020 12:00:00 AM EST 17 g Oral active Take 1 packet by mouth daily as needed for Constipation for up to 10 daysPlease substitute bottle for packets, if packets are unavailable. [facility] Docusate Sodium 100 MG Oral Capsule Docu sate Sodium 100 MG Oral Capsule (COLACE) Docusate Sodium 100 MG Oral Capsule (COLACE) 05/22/2020 12:00:00 AM EST 100 mg Oral active Take 1 cap blair by mouth Two times daily as needed for Constipation [facility] Lactulose 667 MG/ML Oral Solution lactulose (CHRONULAC ) solution 30 mL lactulose (CHRONULAC) solution 30 mL 05/21/2020 09:00:00 PM EST 30 mL Oral active 30 mL, Oral, Three Times Da aaron Standard, First dose on Wed05/21/20 at 2100, For 30 days
Titrate to 1 BM a day
[facility] Medication administered onsite Bisacodyl 5 MG Delayed Release Oral Tablet bisacodyl ( DULCOLAX) EC tablet 5 mg bisacodyl (DULCOLAX) EC tablet 5 mg 05/21/2020 05:22:50 PM EST 5 mg Oral active 5 mg, Oral, Daily ID N, Constipation, Starting Wed05/21/20 at 1722, For 30 days
Do not crush or chew
[facility] Medication administered onsite Tamsulosin hydrochloride 0.4 MG Oral Capsule tamsulosi n (FLOMAX) capsule 0.8 mg tamsulosin (FLOMAX) capsule 0.8 mg 05/21/2020 09:00:00 AM EST 0.8 mg Oral active 0.8 mg, Oral, Daily Standard, First dose (after last modification) on Wed05/21/20 at 0900, For 23 doses
Swallow whole. Do not crush, chew or open.
[facility] Medication administered onsite COVID-19 ad26 ([employer]) vaccine intramuscular injection 0.5 mL [id number] 05/21/2020 09:00:00 AM EST 0.5 mL Intramuscular completed 0.5 mL, Intramuscular, Once, 05/21/20 at 0900, For 1 dose [facility] Medication administered onsite Magnesium Oxide 400 MG Oral Tablet Magne sium Oxide 400 (241.3 Mg) MG Oral Tablet (MAG-OX) Magnesium Oxide 400 (241.3 Mg) MG Oral Tablet (MAG-OX) 05/21/2020 12:00:00 AM EST 400 mg Oral active Take 1 t ablet by mouth daily [facility] Levothyroxine Sodium 0.088 MG Oral Table t Levothyroxine Sodium 88 MCG Oral Tablet (SYNTHROID) Levothyroxine Sodium 88 MCG Oral Tablet (SYNTHROID) 05/21/2020 12:00:00 AM EST 88 ug Oral active Take 1 tablet by mouth Daily [facility] Lidocaine 5 % External Patch (LIDODERM) 7103-9165-16 05/22/19 12:00:00 AM EST 1 {patch} Transdermal active Place 1 pa tch onto the skin daily 12 hours on 12 hours off [facility] torsemide 10 MG Oral Tablet Torsemide 10 MG Oral Table t (DEMADEX) Torsemide 10 MG Oral Tablet (DEMADEX) 05/21/2020 12:00:00 AM EST 50 mg Oral aborted Take [facility] POLYETHYLENE GLYCOL 3350 142 MG/ML Oral Solution Polyethylene Glycol 3350 17 GM Oral Packet (MIRALAX) Polyethylene Glycol 3350 17 GM Oral Packet (MIRALAX) 05/21/2020 12:00:00 AM EST 17 g Oral aborted Take 1 packet by mouth daily for 3 daysPlease substitute bottle for packets, if packets are unavailable. [facility] torsemide 100 MG Oral Tablet Torsemide 100 MG Oral Tab let (DEMADEX) Torsemide 100 MG Oral Tablet (DEMADEX) 05/21/2020 12:00:00 AM EST 50 mg Oral active Take 0.5 tablets by mouth daily [facility] pantoprazole 40 MG Delayed Release Oral Tablet Pantoprazole Sodium 40 MG Oral Tablet Delayed Release (PROTONIX) Pantoprazole Sodium 40 MG Oral Tablet De layed Release (PROTONIX) 05/21/2020 12:00:00 AM EST 40 mg Oral active Take 1 tablet by mouth daily [facility] gabapentin 100 MG Oral Capsule gabapentin (NEURONTIN) capsule 100 mg gabapentin (NEURONTIN) capsule 100 mg 05/20/2020 10:00:00 PM EST 100 mg Oral active 100 mg, Oral, Nightly, First dose on Wed05/20/20 at 2200, For 2 days [facility] Medication administered onsite lidocaine (XYLOCAINE) 2 % urojet 10 mL [id number] 11:15:00 AM EST 10 mL Urethral completed 10 mL, Urethr al, Once, Wed05/20/20 at 1115, For 1 dose [facility] Medication administered onsite POLYETHYLENE GLYCOL 3350 142 [...] due to potential increased risk for aspiration.
[facility] Medication administered onsite valsartan 80 MG Oral Tablet valsartan (DIOVAN) tablet 160 mg valsartan (DIOVAN) tablet 160 mg 05/20/2020 09:00:00 AM EST 160 mg Oral acti ve 160 mg, Oral, Daily Standard, First dose (after last modification) on Wed05/20/20 at 0900, For 22 doses [facility] Medication administered onsite lidocaine (XYLOCAINE) 2 % urojet 10 mL [id number] 04:45:00 AM EST 10 mL Urethral completed 10 mL, Urethr al, Once, Wed05/20/20 at 0445, For 1 dose [facility] Medication administered onsite Hydralazine Hydrochloride 20 MG/ML Injec table Solution hydrALAZINE (APRESOLINE) injection 10 mg hydrALAZINE (APRESOLINE) injection 10 mg 05/20/2020 04 :30:00 AM EST 10 mg Intravenous completed 10 mg, Intravenous, Once, Wed05/20/20 at 0430, For 1 dose
Dilute in 25-50 ml normal saline. Administer over 30 minutes.
[facility] Medication administered onsite Diclofenac Sodium 0.01 MG/MG Topical Gel Diclofenac Sodium 1 % External Gel (VOLTAREN) Diclofenac Sodium 1 % External Gel (VOLTAREN) 05/21/19 12:00:00 AM EST 2 g Topical active Apply 2 g topically every 6 (six) hours as needed [facility] Acetaminophen 325 MG Oral Tablet Acetaminophen 325 MG Oral T ablet 05/20/2020 12:00:00 AM EST 650 mg Oral active Take 2 tablets by mouth every 6 (six) hours as needed for up to 10 days [facility] benzonatate 100 MG Oral Capsule benzonatate (TESSALON) capsule 100 mg benzonatate (TESSALON) capsule 100 mg 05/19/2020 11:29:36 PM EST 10 0 mg Oral active 100 mg, Oral, T hree Times Daily-PRN, Cough, Starting 05/19/20 at 2329, For 30 days
Swallow whole
[facility] Medication administered onsite valsartan 80 MG Oral Tablet valsartan (DIOVAN) tablet 80 mg valsartan (DIOVAN) tablet 80 mg 05/19/2020 01:15:00 PM EST 80 mg Oral compl eted 80 mg, Oral, Once, 05/19/20 at 1315, For 1 dose [facility] Medication administered onsite Carboxymethylcellulose Sodium 5 MG/ML Op hthalmic Solution carboxymethylcellulose PF (REFRESH PLUS) 0.5 % ophthalmic solution 1 drop carboxymethylcellulose PF (REFRESH PLUS) 0.5 % ophthalmic solution 1 drop 05/18/2020 07:56:00 PM EST 1 [drp] Both Eyes active 1 drop, Christiano th Eyes, Three Times Daily-PRN, Dry Eyes, Starting 05/18/20 at 1956, For 8 days 13 hours [facility] Medication administered onsite 168 HR Clonidine 0.18686 MG/HR Transderm al Patch cloNIDine (CATAPRES) 0.2 MG/24HR patch 1 patch cloNIDine (CATAPRES) 0.2 MG/24HR patch 1 patch 12:00:00 PM EST 1 {patch} Transdermal active 1 patch, Transdermal, Administer over 7 Days, Weekly, First dose (after last reorder) on [facility] 05/18/20 at 1200, For 1 dose [facility] Medication administered onsite 24 HR metoprolol succinate 50 MG Extende d Release Oral Tablet metoprolol (TOPROL-XL) 24 hr tablet 50 mg metoprolol (TOPROL-XL) 24 hr tablet 50 mg 05/18/2020 11:30:00 AM EST 50 mg Oral active 50 mg, Oral, Daily Standard, First dose on 05/18/20 at 1130, For 30 days
Do not crush or chew
[facility] Medication administered onsite Ceftriaxone 1000 MG Injection cefTRIAXone (ROCEPHIN) i nfusion 1 g (premix) cefTRIAXone (ROCEPHIN) infusion 1 g (premix) 05/18/2020 09:45:00 AM EST 1 g Intravenous completed 1 g, Intraven ous, at 100 mL/hr, Every 24 hours, First dose on [facility] 05/18/20 at 0945, For 3 days
Discouraged Uses: Empiric treatment of post-surgical meningitis (ceftazidime preferred)
[facility] Medication administered onsite Magnesium Oxide 400 MG Oral Tablet Magnesium Oxide (MA G-OX) tablet 400 mg Magnesium Oxide (MAG-OX) tablet 400 mg 05/18/2020 09:00:00 AM EST 4 00 mg Oral active 400 mg, Oral, D aily Standard, First dose on [facility] 05/18/20 at 0900, For 30 days [facility] Medication administered onsite Cyclobenzaprine hydrochloride 10 MG Oral Tablet cyclobenzaprine (FLEXERIL) tablet 5 mg cyclobenzaprine (FLEXERIL) tablet 5 mg 05/17/2020 11:15:00 PM ES T 5 mg Oral completed 5 mg, Oral, Once, Wed05/17/20 at 2315, For 1 dose [facility] Medication administered onsite Diclofenac Sodium 0.01 MG/MG Topical Gel diclofenac sodium (VOLTAREN) 1 % gel 2 g diclofenac sodium (VOLTAREN) 1 % gel 2 g 05/17/2020 10:48:30 PM EST 2 g Topical active 2 g, Topical, Every 6 hours PRN, Pain, Starting Wed05/17/20 at 2248, For 30 days
Apply to lower back as needed
[facility] Medication administered onsite Cyclobenzaprine hydrochloride 10 MG Oral Tablet cyclobenzaprine (FLEXERIL) tablet 5 mg cyclobenzaprine (FLEXERIL) tablet 5 mg 05/17/2020 02:30:00 PM ES T 5 mg Oral completed 5 mg, Oral, Once, Wed05/17/20 at 1430, For 1 dose [facility] Medication administered onsite lidocaine (LIDODERM) 5 % patch 1 patch [id number] 09:00:00 AM EST 1 {patch} Transdermal active 1 patch, T ransdermal, Daily Standard, First dose on Wed05/17/20 at 0900, For 30 days
Apply to lower back for pain 12 hours on - 12 hours off
Time to remove patch: 9:00 PM [facility] Medication administered onsite Hydroxyzine Hydrochloride 25 MG Oral Tablet hydrOXYzin e (ATARAX) tablet 25 mg hydrOXYzine (ATARAX) tablet 25 mg 05/17/2020 06:50:28 AM EST 25 mg Oral active 25 mg, Oral, Every 6 hours PRN, Itching, Starting Wed05/17/20 at 0650, For 30 days [facility] Medication administered onsite Oxycodone Hydrochloride 5 MG Oral Tablet oxyCODONE (ROXICODONE) immediate release tablet 2.5 mg oxyCODONE (ROXICODONE) immediate release tablet 2.5 mg 05/16/2020 10:45:00 PM EST 2.5 mg Oral completed 2.5 mg, Oral, Once, Wed05/16/20 at 2245, For 1 dose
Oxycodone immediate release is limited to 10 mg per dose. Higher doses ( only) require Pain Service consultation and approval.
[facility] Medication administered onsite sennosides, ALF 8.6 MG Oral Tablet senna tablet 2 tablet sen na tablet 2 tablet 05/16/2020 10:00:00 PM EST 2 {tbl} Oral active 2 tablet, Oral, Nightly, First dose on Wed05/16/20 at 2200, For 30 days [facility] Medication administered onsite 168 HR Clonidine 0.50567 MG/HR Transderm al Patch cloNIDine (CATAPRES) 0.2 MG/24HR patch 1 patch cloNIDine (CATAPRES) 0.2 MG/24HR patch 1 patch 021 08:00:00 PM EST 1 {patch} Transdermal aborted 1 patch, Transdermal, Administer over 7 Days, Weekly, First dose on Leti 05/16/20 at 2000, For 1 dose [facility] Medication administered onsite Acetaminophen 325 MG Oral Tablet acetaminophen (TYLENO L) tablet 650 mg acetaminophen (TYLENOL) tablet 650 mg 05/16/2020 12:30:00 PM EST 65 0 mg Oral completed 650 mg, Oral, O nce, Leti 05/16/20 at 1230, For 1 dose
Maximum daily dose of acetaminophen is 3,000 mg from all sources in 24 hours.
[facility] Medication administered onsite lidocaine (XYLOCAINE) 2 % urojet 10 mL [id number] 10:15:00 AM EST 10 mL Urethral completed 10 mL, Urethr al, Once, [facility] 05/16/20 at 1015, For 1 dose [facility] Medication administered onsite Docusate Sodium 100 MG Oral Capsule docusate sodium (C OLACE) capsule 100 mg docusate sodium (COLACE) capsule 100 mg 05/16/2020 09:00:00 AM EST 100 mg Oral active 100 mg, Oral, 2 Times Daily, First dose on Leti 05/16/20 at 0900, For 30 days [facility] Medication administered onsite POLYETHYLENE GLYCOL 3350 142 [...] due to potential increased risk for aspiration.
[facility] Medication administered onsite clopidogrel 75 MG Oral Tablet Clopidogrel Bisulfate 75 MG Oral Tablet (PLAVIX) Clopidogrel Bisulfate 75 MG Oral Tablet (PLAVIX) 05/16/2020 12:00:00 AM EST 75 mg Oral active Take 1 tablet by mouth d [facility] apixaban 5 MG Oral Tablet apixaban (ELIQUIS) tablet 2. 5 mg apixaban (ELIQUIS) tablet 2.5 mg 05/15/2020 10:30:00 AM EST 2.5 mg Oral acti ve 2.5 mg, Oral, 2 Times Daily, First dose on Wed05/15/20 at 1030, For 30 days [facility] Medication administered onsite clopidogrel 75 MG Oral Tablet clopidogrel (PLAVIX) tab let 75 mg clopidogrel (PLAVIX) tablet 75 mg 05/15/2020 09:00:00 AM EST 75 mg Oral active 75 mg, Oral, Daily Standard, First dose on Wed05/15/20 at 0900, For 30 days [facility] Medication administered onsite lidocaine (XYLOCAINE) 2 % urojet 10 mL [id number] 06:30:00 AM EST 10 mL Urethral completed 10 mL, Urethr al, Once, Wed05/15/20 at 0630, For 1 dose [facility] Medication administered onsite Tamsulosin hydrochloride 0.4 MG Oral Capsule tamsulosi n (FLOMAX) capsule 0.4 mg tamsulosin (FLOMAX) capsule 0.4 mg 05/15/2020 02:45:00 AM EST 0.4 mg Oral aborted 0.4 mg, Oral, Daily Standard, First dose (after last modification) on Wed05/15/20 at 0245, For 30 days
Swallow whole. Do not crush, chew or open.
[facility] Medication administered onsite Ceftriaxone 1000 MG Injection cefTRIAXone (ROCEPHIN) i nfusion 1 g (premix) cefTRIAXone (ROCEPHIN) infusion 1 g (premix) 05/15/2020 02:30:00 AM EST 1 g Intravenous completed 1 g, Intraven ous, at 100 mL/hr, Every 24 hours, First dose on Wed05/15/20 at 0230, For 3 days
Discouraged Uses: Empiric treatment of post-surgical meningitis (ceftazidime preferred)
[facility] Medication administered onsite pantoprazole 40 MG Delayed Release Oral Tablet pantoprazole (PROTONIX) EC tablet 40 mg pantoprazole (PROTONIX) EC tablet 40 mg 05/14/2020 08:00:[address] 40 mg Oral active 40 mg, Ora l, Daily Standard, First dose (after last modification) on Wed05/14/20 at 2000, For 30 days
Do not crush or chew
[facility] Medication administered onsite Acetaminophen 325 MG Oral [...] mg from all sources in 24 hours.
[facility] Medication administered onsite 1 ML heparin sodium, porcine 1000 UNT/ML Injection heparin (porcine) 1000 units/mL injection 3,200 Units heparin (porcine) 1000 units/mL injectio n 3,200 Units 05/14/2020 04:12:26 PM EST 3200 U Intracatheter acti ve 3,200 Units, Intracatheter, PRN, Other, Post HD tx, to block HD cath ports, Starting Wed05/14/20 at 1612, For 10 days [facility] Medication administered onsite ondansetron (ZOFRAN) injection 4 mg [id number] 05/14/2020 03:00:0 0 PM EST 4 mg Intravenous completed 4 mg, In travenous, Once, Wed05/14/20 at 1500, For 1 dose [facility] Medication administered onsite clopidogrel 75 MG Oral Tablet clopidogrel (PLAVIX) tab let 75 mg clopidogrel (PLAVIX) tablet 75 mg 05/14/2020 10:30:00 AM EST 75 mg Oral completed 75 mg, Oral, Once, Wed05/14/20 at 1030, For 1 dose [facility] Medication administered onsite ondansetron (ZOFRAN) injection 4 mg [id number] 05/14/2020 10:15:0 0 AM EST 4 mg Intravenous completed 4 mg, In travenous, Once, Wed05/14/20 at 1015, For 1 dose [facility] Medication administered onsite lidocaine (LIDODERM) 5 % patch 1 patch [id number] 09:00:00 AM EST 1 {patch} Transdermal completed 1 patch, Transdermal, Daily Standard, First dose on Wed05/14/20 at 0900, For 3 days
Apply to lower back 12 hours on - 12 hours off
[facility] Medication administered onsite predniSONE (DELTASONE) tablet 50 mg 05/14/2020 09:00:00 AM EST 50 mg Oral completed 50 mg, Oral, Onc e, Wed05/14/20 at 0900, For 1 dose
Take with food.
[facility] Medication administered onsite torsemide 20 MG Oral Tablet torsemide (DEMADEX) tablet 50 mg torsemide (DEMADEX) tablet 50 mg 05/14/2020 09:00:00 AM EST 50 mg Oral acti ve 50 mg, Oral, Daily Standard, First dose on Wed05/14/20 at 0900, For 30 days [facility] Medication administered onsite diphenhydrAMINE (BENADRYL) injection 50 mg [id number] 05/14/2020 09:00:00 AM EST 50 mg Intravenous completed 50 mg, Intravenous, Once, Wed05/14/20 at 0900, For 1 dose [facility] Medication administered onsite predniSONE (DELTASONE) tablet 50 mg 05/14/2020 03:00:00 AM EST 50 mg Oral completed 50 mg, Oral, Onc e, Wed05/14/20 at 0300, For 1 dose
Take with food.
[facility] Medication administered onsite predniSONE (DELTASONE) tablet 50 mg 05/13/2020 09:00:00 PM EST 50 mg Oral completed 50 mg, Oral, Onc e, Wed05/13/20 at 2100, For 1 dose
Take with food.
[facility] Medication administered onsite Cephalexin 500 MG Oral Capsule cephALEXin (KEFLEX) cap blair 500 mg cephALEXin (KEFLEX) capsule 500 mg 05/13/2020 03:00:00 PM EST 500 mg Oral aborted 500 mg, Oral, Every 24 hours, First dos e (after last reorder) on Wed05/13/20 at 1500, For 5 days
(Ensure doses given after hemodialysis on dialysis days)
[facility] Medication administered onsite Lactulose 667 MG/ML Oral Solution lactulose (CHRONULAC ) solution 30 mL lactulose (CHRONULAC) solution 30 mL 05/13/2020 09:45:00 AM EST 30 mL Oral completed 30 mL, Oral, Three Times Daily Standard, First dose on Wed05/13/20 at 0945, For 1 dose [facility] Medication administered onsite Furosemide 40 MG Oral Tablet furosemide (LASIX) tablet 40 mg furosemide (LASIX) tablet 40 mg 05/13/2020 09:45:00 AM EST 40 mg Oral abort ed 40 mg, Oral, Daily Standard, First dose on Wed05/13/20 at 0945, For 30 days [facility] Medication administered onsite clopidogrel 75 MG Oral Tablet clopidogrel (PLAVIX) tab let 300 mg clopidogrel (PLAVIX) tablet 300 mg 05/13/2020 09:15:00 AM EST 300 mg Oral completed 300 mg, Oral, Once, Wed05/13/20 at 0915, For 1 dose [facility] Medication administered onsite valsartan 80 MG Oral Tablet valsartan (DIOVAN) tablet 80 mg valsartan (DIOVAN) tablet 80 mg 05/13/2020 09:00:00 AM EST 80 mg Oral abort ed 80 mg, Oral, Daily Standard, First dose (after last modification) on Wed05/13/20 at 0900, For 29 doses [facility] Medication administered onsite apixaban 5 MG Oral Tablet apixaban (ELIQUIS) tablet 2. 5 mg apixaban (ELIQUIS) tablet 2.5 mg 05/12/2020 11:15:00 AM EST 2.5 mg Oral abor nanda 2.5 mg, Oral, 2 Times Daily, First dose on 05/12/20 at 1115, For 30 days [facility] Medication administered onsite 24 HR metoprolol succinate 25 MG Extende d Release Oral Tablet metoprolol (TOPROL-XL) 24 hr tablet 25 mg metoprolol (TOPROL-XL) 24 hr tablet 25 mg 05/12/2020 09:00:00 AM EST 25 mg Oral aborted 25 mg, Oral, Daily Standard, First dose (after last modification) on 05/12/20 at 0900, For 30 days
Do not crush or chew
[facility] Medication administered onsite Aspirin 81 MG Chewable Tablet aspirin chewable tablet 81 mg aspirin chewable tablet 81 mg 05/12/2020 09:00:00 AM EST 81 mg Oral abort ed 81 mg, Oral, Every morning, First dose on 05/12/20 at 0900, For 4 days [facility] Medication administered onsite atorvastatin 40 MG Oral Tablet atorvastatin (LIPITOR) tablet 40 mg atorvastatin (LIPITOR) tablet 40 mg 05/12/2020 09:00:00 AM EST 40 mg Oral active 40 mg, Oral, Daily Standard, First dose on 05/12/20 at 0900, For 30 days [facility] Medication administered onsite valsartan 160 MG Oral Tablet valsartan (DIOVAN) tablet 160 mg valsartan (DIOVAN) tablet 160 mg 05/12/2020 09:00:00 AM EST 160 mg Oral abo rted 160 mg, Oral, Daily Standard, First dose on 05/12/20 at 0900, For 30 days [facility] Medication administered onsite Hydroxyzine Hydrochloride 25 MG Oral Tablet hydrOXYzin e (ATARAX) tablet 25 mg hydrOXYzine (ATARAX) tablet 25 mg 05/12/2020 05:30:00 AM EST 25 mg Oral completed 25 mg, Oral, Once, 05/12/20 a t 0530, For 1 dose [facility] Medication administered onsite torsemide 20 MG Oral Tablet torsemide (DEMADEX) tablet 50 mg torsemide (DEMADEX) tablet 50 mg 05/11/2020 09:00:00 PM EST 50 mg Oral abor nanda 50 mg, Oral, 2 Times Daily, First dose (after last modification) on 05/11/20 at 2100, For 3 days [facility] Medication administered onsite insulin lispro (HumaLOG) injection LOW DOSE EATING INS ULIN patients 1-8 Units [id number] 05/11/2020 06:00:00 PM EST U Subcutaneous active 1-8 Units, Subcutaneous, Three Times Daily-With Meals, First dose on 05/11/20 at 1800, For 30 days
Nursing MUST open the 'SQ Insulin Dosing Charts' Sidebar Report, or, the Patient Summary or Summary Report within the ED.
[facility] Medication administered onsite 500 ML heparin sodium, porcine 50 UNT/ML Injection heparin in NaCl 0.45 % infusion 50 units/mL heparin in NaCl 0.45 % infusion 50 units/mL 05/11/2020 05:15:00 PM EST 900 U/h Intravenous aborted 900 Units/hr (18 mL/hr), Intravenous, at 18 mL/hr, Continuous, Starting 05/11/20 at 1715, For 30 days
Heparin Individualized Non-Protocol.
[facility] Medication administered onsite magnesium sulfate in dextrose 5 % infusion (premix) 1 g 0409 -[id number] 05/11/2020 05:15:00 PM EST 1 g Intravenous completed 1 g, Intravenous, Administer over 60 Minutes, Once, 05/11/20 at 1715, For 1 dose [facility] Medication administered onsite 168 HR Clonidine 0.96990 MG/HR Transderm al Patch cloNIDine (CATAPRES) 0.2 MG/24HR patch 1 patch cloNIDine (CATAPRES) 0.2 MG/24HR patch 1 patch 04:45:00 PM EST 1 {patch} Transdermal aborted 1 patch, Transdermal, Administer over 7 Days, Weekly, First dose on 05/11/20 at 1645, For 30 days [facility] Medication administered onsite Levothyroxine Sodium 0.088 MG Oral Table t levothyroxine (SYNTHROID) tablet 88 mcg levothyroxine (SYNTHROID) tablet 88 mcg 05/11/2020 04:30:00 PM EST 88 ug Oral active 88 mcg, Oral, Daily at 0600, First dose on 05/11/20 at 1630, For 30 days [facility] Medication administered onsite Glucose 0.417 MG/MG Oral Gel glucose (GLUTOSE) 40 % or al gel 15 g glucose (GLUTOSE) 40 % oral gel 15 g 05/11/2020 04:14:29 PM EST 15 g Oral active 15 g, Oral, PRN, Low blood s ugar, for gluose 55-69 mg/dl and able to take PO, Starting 05/11/20 at 1614, For 30 days [facility] Medication administered onsite dextrose 50 % IV solution 25 mL [id number] 05/11/2020 04:14:[address] 25 mL Intravenous active 25 mL, Intrav enous, PRN, Other, blood glucose <55, Starting 05/11/20 at 1614, For 30 days
Not for midline administration.
[facility] Medication administered onsite Glucagon 1 MG Injection glucagon (human recombinant) ( GLUCAGEN) injection 1 mg glucagon (human recombinant) (GLUCAGEN) injection 1 mg 05/11/2020 04:14:29 PM EST 1 mg Intramuscular active 1 mg, Intramuscular, PRN, for glucose <55 without IV access, Starting 05/11/20 at 1614, For 30 days [facility] Medication administered onsite gabapentin 100 MG Oral Capsule Gabapentin 04/30/2020 12:00:00 AM EST ORAL completed [facility] ([facility] valsartan 160 MG Oral Tablet Valsartan 04/30/2020 12:00:00 AM EST ORAL active [facility] ([facility]) pantoprazole 40 MG Delayed Release Oral Tablet Pantoprazole Sodium 04/30/2020 12:00:00 AM EST ORAL completed [facility] ([facility]) 0.2 mg/24 hr 04/26/2020 12:00:00 AM [...] 03/22/2020 12:00 :00 AM EST active [facility] ([facility] Onetouch Verio 03/22/2020 12:00:00 AM EST act shey [facility] ([facility] montelukast 10 MG Oral Tablet Montelukast Sodium 03/22/2020 12:00:00 AM EST completed [facility] ([facility] montelukast 10 MG Oral Tablet [...] Oral active Take 160 mg by mouth [facility] 160 mg 03/13/2020 12:00:00 AM EST tablet 90 TAKE ONE TABLET BY MOUTH EVERY DAY TAKE ONE TABLET BY MOUTH EVERY DAY SOLD: 03/13/2020 [facility] torsemide 100 MG Oral Tablet Torsemide 100 MG Oral Tab let (DEMADEX) Torsemide 100 MG Oral Tablet (DEMADEX) 03/03/2020 12:00:00 AM EST 50 mg Oral aborted Take 50 mg by mouth Two Times [facility] 100 mg 02/26/2020 12:00:00 AM EST [...] Take 1 capsule b y mouth daily [facility] sennosides, ALF 8.6 MG Oral Tablet Senna 8.6 MG Oral T ablet Senna 8.6 MG Oral Tablet 10/25/2019 12:00:00 AM EDT 2 {tbl} Oral aborted Take 2 tablets by mouth nightly as needed [facility] Furosemide 40 MG Oral Tablet Furosemide 40 MG Oral Tab let (LASIX) Furosemide 40 MG Oral Tablet (LASIX) 10/25/2019 12:00:00 AM EDT 60 mg Oral aborted Take 1.5 tablets by mouth Two Times Daily [facility] pantoprazole 40 MG Delayed Release Oral Tablet pantoprazole (PROTONIX) EC tablet 40 mg pantoprazole (PROTONIX) EC tablet 40 mg 10/24/2019 09:00:00 AM E DT 40 mg Oral active 40 mg, Ora l, Daily Standard, First dose on Wed10/24/19 at 0900, For 30 days
Do not crush or chew
[facility] Medication administered onsite Docusate Sodium 100 MG Oral Capsule docusate sodium (C OLACE) capsule 100 mg docusate sodium (COLACE) capsule 100 mg 10/24/2019 09:00:00 AM EDT 100 mg Oral active 100 mg, Oral, 2 Times Daily, First dose on Wed10/24/19 at 0900, For 30 days [facility] Medication administered onsite sennosides, ALF 8.6 MG Oral Tablet senna tablet 2 tablet sen na tablet 2 tablet 10/24/2019 07:57:59 AM EDT 2 {tbl} Oral active 2 tablet, Oral, Nightly PRN, Constipation, Starting Wed10/24/19 at 0757, For 30 days [facility] Medication administered onsite 168 HR Clonidine 0.82302 MG/HR Transderm al Patch cloNIDine 0.2 MG/24HR Transdermal Patch Weekly (CATAPRES) cloNIDine 0.2 MG/24HR Transdermal Patch Weekly (CATAPRES) 10/22/2019 12:00:00 AM EDT 1 {patch} Transdermal active Place 1 patch onto the skin once a week [facility] 0.1 mg/24 hr 09/27/2019 12:00:00 AM EDT patch weekly 4 APPLY 1 PATCH EVERY WEEK REMOVE OLD PATCH BEFORE APPLYING NEW PATCH APPLY 1 PATCH EVERY WEEK REMOVE OLD PATCH BEFORE APPLYING NEW PATCH SOLD: 12/14/2019 [place] 12 % 07/19/2019 12:00:00 AM EDT cream 140 APPLY TO FEET TWO TIMES A DAY APPLY TO FEET TWO TIMES A DAY SOLD: 12/26/2019 [place] BLOOD SUGAR DIAGNOSTIC 05/02/2019 12:00:00 AM EST strip 450 USE TO TEST BLOOD GLUCOSE 5 TIMES DAILY USE TO TEST BLOOD GLUCOSE 5 TIMES DAILY SOLD: 11/28/2019 [place] 33 gauge 05/02/2019 12:00:00 AM EST misc 500 USE TO TEST BLOOD GLUCOSE 5 TIMES DAILY USE TO TEST BLOOD GLUCOSE 5 TIMES DAILY SOLD: 11/28/2019 [employer] test strip [id number] 02/15/2018 12:00:00 AM EST [facility] ELIDALUIS ANTONIO DELICA LANCETS 33G MISC [id number] 02/15/2018 12:00[facility] [facility] 300 MG Oral Tablet allopurinol (ZYLOPRIM) 300 MG tablet allopurinol (ZYLOPRIM) 300 MG tablet 01/17/2018 12:00:00 AM EST 300 mg Oral aborted Take 300 mg by mouth daily [facility] BD PEN NEEDLE GURPREET U/F 32G X 4 MM [facility] [id number] 01/06/2018 12:0 0:00 AM EDT aborted FOUR TIMES A DAY [facility] Mupirocin 0.02 MG/MG Topical Ointment mupirocin (BACTR OBAN) 2 % ointment mupirocin (BACTROBAN) 2 % ointment 12/03/2017 12:00:00 AM EDT aborted Apply to affected area twice a day. [facility] 3 ML Insulin Glargine 100 UNT/ML Pen Inj rebeca insulin glargine (BASAGLAR KWIKPEN) 100 UNIT/ML pen insulin glargine (BASAGLAR KWIKPEN) 100 UNIT/ML pen 35 U Subcutaneous aborted Inject 35 U nits into the skin daily [facility] Venofer 20 MG/ML Intravenous Solution (iron sucrose) 2441-2019-02 50 mg Intravenous aborted Inject 50 mg into the vein Every eda at dialysis only. [facility] Calcitriol 0.75522 MG Oral Capsule Calcitriol 0.25 MCG Oral Capsule (ROCALTROL) Calcitriol 0.25 MCG Oral Capsule (ROCALTROL) 0.25 ug Oral aborted Take 0.25 mcg by mouth 3 (three) times a week on Wednesday, and Wednesday at dialysis only. [facility] gabapentin 100 MG Oral Capsule Gabapentin 100 MG Oral Capsule (NEURONTIN) Gabapentin 100 MG Oral Capsule (NEURONTIN) 100 mg Oral aborted Take 100 mg by mouth Two Times Daily [facility] Alprazolam 0.5 MG Oral Tablet ALPRAZolam 0.5 MG Oral T ablet (XANAX) ALPRAZolam 0.5 MG Oral Tablet (XANAX) 0.5 mg Oral aborted Take 0.5 mg by mouth Two times daily as needed Max daily of 2 tablets. [facility] Levothyroxine Sodium 0.088 MG Oral Table t Levothyroxine Sodium 88 MCG Oral Tablet (SYNTHROID) Levothyroxine Sodium 88 MCG Oral Tablet (SYNTHROID) 88 ug Oral aborted Take 88 mcg by mouth gina ly [facility] 0.3 ML Methoxy polyethylene glycol-epoet in beta 0.167 MG/ML Prefilled Syringe [Mircera] Mircera 50 MCG/0.3ML Injection Solution Prefilled Syringe (Methoxy PEG-Epoetin Beta) Mircera 50 MCG/0.3ML Injection Solution Prefilled Syringe (Methoxy PEG-Epoetin Beta) 50 ug Injection aborted Inject 50 mcg as directed every 28 (twenty-eight) days at dialysis only. [facility] torsemide 100 MG Oral Tablet Torsemide 100 MG Oral Tab let (DEMADEX) Torsemide 100 MG Oral Tablet (DEMADEX) 50 mg Oral aborted Take 50 mg by mouth Two Times Daily [facility] Lidocaine 5 % External Patch (LIDODERM) 5343-2622-41 2 {patch} Transdermal aborted Place 2 patches onto the skin as directed 12 hours on 12 hours off. [facility] Allopurinol 100 MG Oral Tablet Allopurinol 100 MG Oral Tablet (ZYLOPRIM) Allopurinol 100 MG Oral Tablet (ZYLOPRIM) 100 mg Oral aborted Take 100 mg by mouth daily with food. [facility] latanoprost 0.05 MG/ML Ophthalmic Soluti on latanoprost (XALATAN) 0.005 % ophthalmic solution latanoprost (XALATAN) 0.005 % ophthalmic solution 1 [drp] Both Eyes aborted Place 1 drop into both eyes nightly [facility] Multiple Vitamin (MULTIVITAMIN) tablet 1444-2083-44 1 {t bl} Oral aborted Take 1 tablet by mouth daily [facility] Docusate Sodium 100 MG Oral Capsule docusate sodium (C OLACE) 100 MG capsule docusate sodium (COLACE) 100 MG capsule 100 mg Oral aborted Take 100 mg by mouth Two Times Daily [facility] Ergocalciferol 32352 UNT Oral Capsule vi tamin D (ERGOCALCIFEROL) 05249 units capsule vitamin D (ERGOCALCIFEROL) 19960 units capsule 23104 U O ral aborted Take 50,000 Units by mouth once a week [facility] POLYETHYLENE GLYCOL 3350 142 MG/ML Oral Solution polyethylene glycol (MIRALAX) powder polyethylene glycol (MIRALAX) powder 17 g Oral aborted Take 17 g by mouth in 4oz to 8oz of liquid daily as needed. [facility] lidocaine (LIDODERM) 5 % 9002-3423-05 aborted Apply to affected area(s) on skin for 12 hours on and 12 hours off. [facility] potassium chloride SA (K-DUR,KLOR-CON) 10 MEQ tablet 64135-707-64 10 meq Oral aborted Take 10 mEq by mouth Two Times Daily [facility] Isosorbide Dinitrate 10 MG Oral Tablet i sosorbide dinitrate (ISORDIL) 10 MG tablet isosorbide dinitrate (ISORDIL) 10 MG tablet 10 mg Oral aborted Take 10 mg by mouth Two Times Daily [facility] glimepiride 4 MG Oral Tablet glimepiride (AMARYL) 4 MG tablet glimepiride (AMARYL) 4 MG tablet 4 mg Oral aborted Take 4 mg by mouth Two Times Daily [facility] Aspirin 81 MG Oral Tablet aspirin 81 MG tablet aspirin 81 MG tablet 81 mg Oral aborted Take 81 mg by mouth every morning [facility] 24 HR metoprolol succinate 50 MG Extende d Release Oral Tablet metoprolol (TOPROL-XL) 50 MG 24 hr tablet metoprolol (TOPROL-XL) 50 MG 24 hr tablet 50 mg Oral aborted Take 50 mg by mouth [facility] Insurance Providers Payer name Policy type / Coverage type Policy ID Covered democrat ID Covered democrat's relationship to flores Policy Flores Plan Information AMER PROG TODAYS OPTIONS G [id number] Self [id number] [employer] MEDICARE HMO G [id number] Self [id number] Medicare [place] Med[place]ap Part B [id number] Self Today's Options P[employer] Commercial [id number] Self [id number] Today[employer] Options [employer] Commercial [id number] Self [id number] [employer] Commercial [id number] Self [id number] [employer] Commercial [id number] Self [id number] [employer] Commercial [id number] Self [id number] [employer] P[employer] Commercial [id number] Self [id number] [employer] Commercial [id number] Self [id number] [employer] P[employer]S Commercial [id number] 2..1.377526.3. 227.99.572.2978.0 Self [id number] Today's Options [employer] Commercial [id number] 2..1.216392.3. 227.99.572.2978.0 Self [id number] Today[employer] Commercial [id number] 2...310213.3. 227.99.572.2978.0 Self [id number] Today[employer] Commercial [id number] 2..1.637835.3. 227.99.572.2978.0 Self [id number] Today's Options [employer] Commercial [id number] Self Today's Options P[employer] Commercial [id number] 2..1.427135.3. 227.99.572.2978.0 Self [id number] Today's Options [employer] Commercial [id number] Self [id number] Today's Options [employer] Commercial [id number] 2..1.536928.3. 227.99.572.2978.0 Self [id number] Today's [employer] Commercial [id number] 2..1.081079.3. 227.99.572.2978.0 Self [id number] [employer] Commercial [id number] 2..1.851963.3. 227.99.572.2978.0 Self [id number] Today[employer] Commercial [id number] 2.16.840.1.199066.3. 227.99.572.2978.0 Self [id number] [employer] Commercial [id number] 2.16.840.1.951693.3. 227.99.572.2978.0 Self [id number] Today[employer] Commercial [id number] Self [id number] Today[employer] Options [employer] Commercial [id number] Self Today's Option Commercial [id number] 2.16.840.1.167619.3.227.99.936.1 7711.0 Self [id number] Today[employer] Commercial [id number] Self Today's Option Medicare Commercial [id number] 2.840.1.592942.3.227.99.1767.6178.0 Self [id number] Today's Options Ppo Commercial [id number] 2.840.1.512081.3.2 27.99.572.2978.0 Self [id number] Today's Options Ppo Commercial [id number] 2.840.1.462818.3.2 27.99.572.2978.0 Self [id number] Today[employer] Options Ppo Commercial [id number] 2.840.1.622199.3.2 27.99.572.2978.0 Self [id number] Today[employer] Options Ppo Commercial [id number] 2.16840.1.363053.3.2 27.99.572.2978.0 Self [id number] Today[employer] Options Ppo Commercial [id number] 2.16840.1.033793.3.2 27.99.572.2978.0 Self [id number] Today[employer] Options Ppo Commercial [id number] 2.16840.1.383021.3.2 27.99.572.2978.0 Self [id number] [employer] Ppo Commercial [id number] 2.0.1.933317.3.2 27.99.572.2978.0 Self [id number] Today[employer] Options Ppo Commercial [id number] 2.0.1.739569.3.2 27.99.572.2978.0 Self [id number] Today's Options Ppo Commercial [id number] 2.0.1.277860.3.2 27.99.572.2978.0 Self [id number] Today's Options Ppo Commercial [id number] 2.0.1.537400.3.2 27.99.572.2978.0 Self [id number] Today's Options Ppo Commercial [id number] 2.0..659965.3.2 27.99.572.2978.0 Self [id number] Today's Options Ppo Commercial [id number] [facility].[id number] Self [id number] Today's Options Ppo Commercial [id number] Self Today's Options Ppo Commercial [id number] 2...725574.3.2 27.99.572.2978.0 Self [id number] Today's Options Ppo Commercial [id number] 2...835444.3.2 27.99.572.2978.0 Self [id number] Today's Options Ppo Commercial [id number] Self [id number] Today's Options Ppo Commercial [id number] 2.0.1.516881.3.2 27.99.572.2978.0 Self [id number] Today's Options Ppo Commercial [id number] 2.0.1.999670.3.2 27.99.572.2978.0 Self [id number] Today's Options Ppo Commercial [id number] 2.0.1.186164.3.2 27.99.572.2978.0 Self [id number] TODAYS OPTIONS [id number] SP [id number] TODAYS OPTIONS [id number] SP [id number] Todays Options Commercial [id number] Self WELLCARE [id number] SP [id number] [employer] [id number] Rachel f [id number] [employer] [id number] Rachel f [id number] OTHER B TRANSPLANT Self TRANSPLAN T MEDICARE [id number] SP [id number] WELLCARE[facility] [place] [id number] 18 [id number] WELLCARE [id number] SP [id number] "" MNC None WELLCARE O [id number] S [id number] WELLCARE O [id number] S [id number] WELLCARE [id number] SP [id number] MEDICARE [id number] SP [id number] A UNHC CP DUAL COMP - FACILITY [id number] 18 [id number] Wellcare MCR - To Ppo Commercial [id number] Self [id number] Medicare (Part B) Medicare Primary [id number] Self [id number] Well[employer] MCR - To Ppo Commercial [id number] Self [id number] Medicare (Part B) Medicare Primary [id number] Self [id number] TOD[employer] OPTIONS [id number] SP [id number] Well[employer] MCR - To Ppo Commercial [id number] 2.160.1 .795394.3.227.99.572.2978.0 Self [id number] Medicare (Part B) Medicare Primary [id number] 2.160.1.209567.3.227.99.572.2978.[id number] [facility] MCR - To Ppo Commercial [id number] 2.16.840.1 .401642.3.227.99.572.2978.0 Self [id number] Medicare (Part B) Medicare Primary [id number] 2.16.840.1.423863.3.227.99.572.2978.0 Self 06 [id number] MEDICARE [id number] SP [id number] A TODAYS OPTIONS [id number] SP [id number] Medicare (Part B) Medicare Primary [id number] 2.16.840.1.863598.3.227.99.572.2978.0 Self 06 [id number] Medicare (Part B) Medicare Primary [id number] 2.16.840.1.729212.3.227.99.572.2978.0 Self 06 [id number] TODAYS OPTIONS/TURKMEN O [id number] S [id number] Medicare (Part B) Medicare Primary [id number] 2.16.840.1.933653.3.227.99.572.2978.0 Self 06 [id number] Medicare (Part B) Medicare Primary [id number] 2.16.840.1.356611.3.227.99.572.2978.0 Self 06 [id number] Medicare (Part B) Medicare Primary [id number] 2.16.840.1.505024.3.227.99.572.2978.0 Self 06 [id number] Medicare (Part B) Medicare Primary [id number] 2.16.840.1.087499.3.227.99.572.2978.0 Self 06 [id number] Medicare (Part B) Medicare Primary [id number] 2.16.840.1.263601.3.227.99.572.2978.0 Self 06 [id number] Medicare (Part B) Medicare Primary [id number] 2.16.840.1.219516.3.227.99.572.2978.0 Self 06 [id number] Medicare (Part B) Medicare Primary [id number] 2.16.840.1.709765.3.227.99.572.2978.0 Self 06 [id number] Medicare (Part B) Medicare Primary [id number] 2.16.840.1.114325.3.227.99.572.2978.0 Self 06 [id number] Medicare (Part B) Medicare Primary [id number] 2.16.840.1.433215.3.227.99.572.2978.0 Self 06 [id number] Medicare (Part B) Medicare Primary [id number] 2.16.840.1.788202.3.227.99.572.2978.0 Self 06 [id number] Medicare (Part B) Medicare Primary [id number] 2.16.840.1.809751.3.227.99.572.2978.0 Self 06 [id number] Medicare (Part B) Medicare Primary [id number] 2.16.840.1.520485.3.227.99.572.2978.0 Self 06 [id number] Medicare (Part B) Medicare Primary [id number] Self BS [place] Medigap Part B [id number] Self Medicare Medicare Primary 4467 Self WELLCARE [id number] SP [id number] Problems, Conditions, and Diagnoses Code Display Name Description Problem Type Effective Dates Data Source(s) R13.11 Dysphagia, oral phase DYSPHAGIA, ORAL PHASE Diagnosis 05/24/2020 12:00:00 AM EST P[facility] ([facility]) R26.2 Difficulty in walking, not elsewhere cla ssified DIFFICULTY IN WALKING, NOT ELSEWHERE CLASSIFIED Diagnosis 05/23/2020 12:00:00 AM EST PCC ([facility] [place]) M62.81 Muscle weakness (generalized) MUSCLE WEAKNESS (GENERAL IZED) Diagnosis 05/23/2020 12:00:00 AM EST PCC ([facility]) I10 Essential (primary) hypertension ESSENTIAL (PRIMARY) H YPERTENSION Diagnosis 05/22/2020 12:00:00 AM EST PCC ([facility]) Z99.2 Dependence on renal dialysis DEPENDENCE ON RENAL DIALY SIS Diagnosis 05/22/2020 12:00:00 AM EST PCC ([facility]) E03.9 Hypothyroidism, unspecified HYPOTHYROIDISM, UNSPECIFIE D Diagnosis 05/22/2020 12:00:00 AM EST PCC ([facility]) T82.9XXD Unspecified complication of cardiac and vascular prosthetic device, implant and graft, subsequent encounter UNSPECIFIED COMPLICATION OF CARDIAC AND VASCULAR PROSTHETIC DEVICE, IMPLANT AND GRAFT, SUBSEQUENT ENCOUNTER Diagnosis 05/22/2020 12:00:00 AM EST PCC ([facility]) N18.9 Chronic kidney disease, unspecified CHRONIC KIDN EY DISEASE, UNSPECIFIED Diagnosis 05/22/2020 12:00:00 AM EST PCC ([facility]) N17.9 Acute kidney failure, unspecified ACUTE KIDNEY F AILURE, UNSPECIFIED Diagnosis 05/22/2020 12:00:00 AM EST PCC ([facility]) E87.70 Fluid overload, unspecified FLUID OVERLOAD, UNSPECIFIE D Diagnosis 05/22/2020 12:00:00 AM EST PCC ([facility]) N25.0 Renal osteodystrophy RENAL OSTEODYSTROPHY Diagnosis 05/22/2020 12:00:00 AM EST PCC ([facility]) E11.9 Type 2 diabetes mellitus without complic ations TYPE 2 DIABETES MELLITUS WITHOUT COMPLICATIONS Diagnosis 05/22/2020 12:00:00 AM EST PCC ([facility]) I48.91 Unspecified atrial fibrillation UNSPECIFIED ATRI AL FIBRILLATION Diagnosis 05/22/2020 12:00:00 AM EST PCC ([facility]) I25.10 Atherosclerotic heart diseas e of [place] coronary artery without angina pectoris ATHEROSCLEROTIC HEART DISEASE OF [place] CORONARY ARTERY WITHOUT ANGINA PECTORIS Diagnosis 05/22/2020 12:00:00 AM EST PCC ([facility] [place]) N18.6 End stage renal disease END STAGE RENAL DISEASE Diagno sis 05/22/2020 12:00:00 AM EST PCC ([facility]) Z20.822 CONTACT WITH AND (SUSPECTED) EXPOSURE TO COVID-19 CONTACT WITH AND (SUSPECTED) EXPOSURE TO COVID-19 Diagnosis 05/22/2020 12:00:00 AM EST PCC ([facility]) I21.4 Non-ST elevation (NSTEMI) myocardial inf arction NON-ST ELEVATION (NSTEMI) MYOCARDIAL INFARCTION Diagnosis 05/22/2020 12:00:00 AM EST PCC ([facility]) R04.1 Hemorrhage from throat HEMORRHAGE FROM THROAT Diagnosi s 05/22/2020 12:00:00 AM EST PCC ([facility]) D63.1 Anemia in chronic kidney disease ANEMIA IN CHRON IC KIDNEY DISEASE Diagnosis 05/22/2020 12:00:00 AM EST PCC ([facility]) R11.0 Nausea NAUSEA Diagnosis 05/22/2020 12:00:00 AM ES T PCC ([facility]) R42 Dizziness and giddiness DIZZINESS AND GIDDINESS Diagno sis 05/22/2020 12:00:00 AM EST PCC ([facility]) Z95.1 Presence of aortocoronary bypass graft P RESENCE OF AORTOCORONARY BYPASS GRAFT Diagnosis 05/22/2020 12:00:00 AM EST PCC ([facility]) K21.9 Gastro-esophageal reflux disease without esophagitis GASTRO-ESOPHAGEAL REFLUX DISEASE WITHOUT ESOPHAGITIS Diagnosis 05/22/2020 12:00:00 AM ES T PCC ([facility]) I21.4 Non-ST elevation (NSTEMI) myocardial inf arction Non-ST elevation (NSTEMI) myocardial infarction Diagnosis 05/11/2020 03:45:57 PM [facility] chest pain, ST elevation chest pain, ST elevation Diag nosis 05/11/2020 03:32:[address] [facility] L84 Corns and callosities Corns and callosities Diagnosis 05/08/2020 01:58:00 PM [facility] I739 Peripheral vascular disease, unspecified Peripheral vascular disease, unspecified Diagnosis 05/08/2020 01:58:00 PM [facility] E1142 Type 2 diabetes mellitus with diabetic p olyneuropathy Type 2 diabetes mellitus with diabetic polyneuropathy Diagnosis 05/08/2020 01:58:00 PM [facility] B351 Tinea unguium Tinea unguium Diagnosis 05/08/2020 01:58:00 PM [facility] I22.2 Acute subendocardial infarction Acute subendocardial i nfarction Problem 06/14/2020 12:00:00 AM EDT [facility] ([facility] ) I21.4 Acute subendocardial infarction Acute subendocardial i nfarction Problem 06/12/2020 12:00:00 AM EDT [facility] ([facility]) I48.21 Permanent atrial fibrillation Permanent atrial fibrill ation Problem 05/01/2020 12:00:00 AM EST [facility] ([facility]) Surgeries/Procedures Procedure Description Date Indications Data Source(s) OFFICE OUTPATIENT VISIT 15 MINUTES 07/29/2020 12:00:00 AM EDT [facility] ([facility] OFFICE OUTPATIENT VISIT 25 MINUTES 07/26/2020 12:00:00 AM EDT [facility] ([facility]) OFFICE OUTPATIENT VISIT 25 MINUTES 07/12/2020 12:00:00 AM EDT [facility] ([facility] OFFICE OUTPATIENT VISIT 25 MINUTES 06/14/2020 12:00:00 AM EDT [facility] ([facility] ECG ROUTINE ECG W/LEAST 12 LDS W/I&R 06/12/2020 12:00: 00 AM EDT [facility] ([facility]) OFFICE OUTPATIENT VISIT 15 MINUTES 06/12/2020 12:00:00 AM EDT [facility] ([facility]) POCT GLUCOSE, DOCKED <td>POCT GLUCOSE, DOCKED</td ><td>Routine</td><td>05/22/2020 11:33 AM EST</td><td></td><td> </td> 05/22/2020 11:33:[address] [facility] POCT GLUCOSE, DOCKED <td>POCT GLUCOSE, DOCKED</td ><td>Routine</td><td>05/22/2020 7:36 AM EST</td><td></td><td> </td> 05/22/2020 07:36:[address] [facility] GLUCOSE QUANTITATIVE BLOOD XCPT REAGENT STRIP <td>POCT GLUCOSE, DOCKED</td><td>Routine</td><td>05/21/2020 9:01 PM EST</td><td></td><td> </td> 05/21/2020 09:01:[address] [facility] GLUCOSE QUANTITATIVE BLOOD XCPT REAGENT STRIP <td>POCT GLUCOSE, DOCKED</td><td>Routine</td><td>05/21/2020 4:29 PM EST</td><td></td><td> </td> 05/21/2020 04:29:[address] [facility] RESPIRATORY PATHOGEN PANEL <td>RESPIRATORY PATHOGEN PANEL</td><td>Routine</td><td>05/21/2020 12:40 PM EST</td><td></td><td> </td> 05/21/2020 12:40:[address] [facility] COVID-19 PCR <td>COVID-19 PCR</td><td>Rou oneal</td><td>05/21/2020 12:40 PM EST</td><td></td><td> </td> 05/21/2020 12:40:[address] [facility] GLUCOSE QUANTITATIVE BLOOD XCPT REAGENT STRIP <td>POCT GLUCOSE, DOCKED</td><td>Routine</td><td>05/21/2020 11:43 AM EST</td><td></td><td> </td> 05/21/2020 11:43:[address] [facility] GLUCOSE QUANTITATIVE BLOOD XCPT REAGENT STRIP <td>POCT GLUCOSE, DOCKED</td><td>Routine</td><td>05/21/2020 7:31 AM EST</td><td></td><td> </td> 05/21/2020 07:31:[address] [facility] BLOOD COUNT COMPLETE AUTO&AUTO DIFRNTL WBC COUNT <td>C BC AND DIFFERENTIAL</td><td>Timed</td><td>05/21/2020 3:20 AM EST</td><td></td><td> </td> 05/21/2020 03:20:[address] [facility] BASIC METABOLIC PANEL CALCIUM TOTAL <td>BASIC METABOLI C PANEL</td><td>Routine</td><td>05/21/2020 3:20 AM EST</td><td></td><td> </td> 05/21/2020 03:20:[address] [facility] GLUCOSE QUANTITATIVE BLOOD XCPT REAGENT STRIP <td>POCT GLUCOSE, DOCKED</td><td>Routine</td><td>05/20/2020 9:19 PM EST</td><td></td><td> </td> 05/20/2020 09:19:[address] [facility] GLUCOSE QUANTITATIVE BLOOD XCPT REAGENT STRIP <td>POCT GLUCOSE, DOCKED</td><td>Routine</td><td>05/20/2020 4:32 PM EST</td><td></td><td> </td> 05/20/2020 04:32:[address] [facility] GLUCOSE QUANTITATIVE BLOOD XCPT REAGENT STRIP <td>POCT GLUCOSE, DOCKED</td><td>Routine</td><td>05/20/2020 11:21 AM EST</td><td></td><td> </td> 05/20/2020 11:21:[address] [facility] GLUCOSE QUANTITATIVE BLOOD XCPT REAGENT STRIP <td>POCT GLUCOSE, DOCKED</td><td>Routine</td><td>05/20/2020 7:26 AM EST</td><td></td><td> </td> 05/20/2020 07:26:[address] [facility] BLOOD COUNT COMPLETE AUTO&AUTO DIFRNTL WBC COUNT <td>C BC AND DIFFERENTIAL</td><td>Routine</td><td>05/20/2020 5:23 AM EST</td><td></td><td> </td> 05/20/2020 05:23:[address] [facility] BASIC METABOLIC PANEL CALCIUM TOTAL <td>BASIC METABOLI C PANEL</td><td>Routine</td><td>05/20/2020 4:10 AM EST</td><td></td><td> </td> 05/20/2020 04:10:[address] [facility] GLUCOSE QUANTITATIVE BLOOD XCPT REAGENT STRIP <td>POCT GLUCOSE, DOCKED</td><td>Routine</td><td>05/19/2020 9:22 PM EST</td><td></td><td> </td> 05/19/2020 09:22:[address] [facility] BLOOD COUNT COMPLETE AUTO&AUTO DIFRNTL WBC COUNT <td>C BC AND DIFFERENTIAL</td><td>Timed</td><td>05/19/2020 6:27 PM EST</td><td></td><td> </td> 05/19/2020 06:27:[address] [facility] GLUCOSE QUANTITATIVE BLOOD XCPT REAGENT STRIP <td>POCT GLUCOSE, DOCKED</td><td>Routine</td><td>05/19/2020 4:24 PM EST</td><td></td><td> </td> 05/19/2020 04:24:[address] [facility] GLUCOSE QUANTITATIVE BLOOD XCPT REAGENT STRIP <td>POCT GLUCOSE, DOCKED</td><td>Routine</td><td>05/19/2020 11:20 AM EST</td><td></td><td> </td> 05/19/2020 11:20:[address] [facility] COVID-19 PCR <td>COVID-19 PCR</td><td>Rou oneal</td><td>05/19/2020 9:53 AM EST</td><td></td><td> </td> 05/19/2020 09:53:[address] [facility] GLUCOSE QUANTITATIVE BLOOD XCPT REAGENT STRIP <td>POCT GLUCOSE, DOCKED</td><td>Routine</td><td>05/19/2020 7:17 AM EST</td><td></td><td> </td> 05/19/2020 07:17:[address] [facility] BLOOD COUNT COMPLETE AUTO&AUTO DIFRNTL WBC COUNT <td>C BC AND DIFFERENTIAL</td><td>Timed</td><td>05/19/2020 6:10 AM EST</td><td></td><td> </td> 05/19/2020 06:10:[address] [facility] BASIC METABOLIC PANEL CALCIUM TOTAL <td>BASIC METABOLI C PANEL</td><td>Routine</td><td>05/19/2020 6:10 AM EST</td><td></td><td> </td> 05/19/2020 06:10:[address] [facility] GLUCOSE QUANTITATIVE BLOOD XCPT REAGENT STRIP <td>POCT GLUCOSE, DOCKED</td><td>Routine</td><td>05/18/2020 8:49 PM EST</td><td></td><td> </td> 05/18/2020 08:49:[address] [facility] BLOOD COUNT COMPLETE AUTO&AUTO DIFRNTL WBC COUNT <td>C BC AND DIFFERENTIAL</td><td>Timed</td><td>05/18/2020 6:32 PM EST</td><td></td><td> </td> 05/18/2020 06:32:[address] [facility] GLUCOSE QUANTITATIVE BLOOD XCPT REAGENT STRIP <td>POCT GLUCOSE, DOCKED</td><td>Routine</td><td>05/18/2020 4:21 PM EST</td><td></td><td> </td> 05/18/2020 04:21:[address] [facility] GLUCOSE QUANTITATIVE BLOOD XCPT REAGENT STRIP <td>POCT GLUCOSE, DOCKED</td><td>Routine</td><td>05/18/2020 11:16 AM EST</td><td></td><td> </td> 05/18/2020 11:16:[address] [facility] GLUCOSE QUANTITATIVE BLOOD XCPT REAGENT STRIP <td>POCT GLUCOSE, DOCKED</td><td>Routine</td><td>05/18/2020 10:03 AM EST</td><td></td><td> </td> 05/18/2020 10:03:[address] [facility] GLUCOSE QUANTITATIVE BLOOD XCPT REAGENT STRIP <td>POCT GLUCOSE, DOCKED</td><td>Routine</td><td>05/18/2020 7:27 AM EST</td><td></td><td> </td> 05/18/2020 07:27:[address] [facility] BLOOD COUNT COMPLETE AUTOMATED <td>CBC AND DIFFERENTIAL</td><td>Timed</td><td>05/18/2020 4:54 AM EST</td><td></td><td> </td> 05/18/2020 04:54:[address] [facility] BASIC METABOLIC PANEL CALCIUM TOTAL <td>BASIC METABOLI C PANEL</td><td>Routine</td><td>05/18/2020 4:54 AM EST</td><td></td><td> </td> 05/18/2020 04:54:[address] [facility] URNLS DIP STICK/TABLET REAGENT AUTO MICROSCOPY <td>URI NALYSIS WITH REFLEX URINE CULTURE</td><td>Routine</td><td>05/17/2020 11:14 PM EST</td><td></td><td> </td> 05/17/2020 11:14:[address] [facility] CULTURE BCT ISOL&PRSMPTV ID ISOLATE EA URINE <td>URINE CULTURE</td><td>Routine</td><td>05/17/2020 11:14 PM EST</td><td></td><td> </td> 05/17/2020 11:14:[address] [facility] GLUCOSE QUANTITATIVE BLOOD XCPT REAGENT STRIP <td>POCT GLUCOSE, DOCKED</td><td>Routine</td><td>05/17/2020 9:47 PM EST</td><td></td><td> </td> 05/17/2020 09:47:[address] [facility] BLOOD COUNT COMPLETE AUTOMATED <td>CBC AND DIFFERENTIAL</td><td>Timed</td><td>05/17/2020 9:43 PM EST</td><td></td><td> </td> 05/17/2020 09:43:[address] [facility] GLUCOSE QUANTITATIVE BLOOD XCPT REAGENT STRIP <td>POCT GLUCOSE, DOCKED</td><td>Routine</td><td>05/17/2020 4:52 PM EST</td><td></td><td> </td> 05/17/2020 04:52:[address] [facility] GLUCOSE QUANTITATIVE BLOOD XCPT REAGENT STRIP <td>POCT GLUCOSE, DOCKED</td><td>Routine</td><td>05/17/2020 4:42 PM EST</td><td></td><td> </td> 05/17/2020 04:42:[address] [facility] VASC LAB US DOPPLER LOWER EXTREMITY BILATERAL VENOUS C OMP [id number] <td>VASC LAB US DOPPLER LOWER EXTREMITY BILATERAL VENOUS COMP 38466</td><td>Routine</td><td>05/17/2020 4:27 PM EST</td><td></td><td> </td> 05/17/2020 04:27:[address] [facility] XR CHEST FRONTAL ONLY [id number] <td>XR CHEST FRONTAL ONLY 00407</td><td>STAT</td><td>05/17/2020 2:40 PM EST</td><td></td><td> </td> 05/17/2020 02:40:[address] [facility] CULTURE BACTERIAL BLOOD AEROBIC W/ID ISOLATES <td>BLOO D CULTURE</td><td>Routine</td><td>05/17/2020 2:20 PM EST</td><td></td><td> </td> 05/17/2020 02:20:[address] [facility] CULTURE BACTERIAL BLOOD AEROBIC W/ID ISOLATES <td>BLOO D CULTURE</td><td>Routine</td><td>05/17/2020 2:20 PM EST</td><td></td><td> </td> 05/17/2020 02:20:[address] [facility] GLUCOSE QUANTITATIVE BLOOD XCPT REAGENT STRIP <td>POCT GLUCOSE, DOCKED</td><td>Routine</td><td>05/17/2020 11:23 AM EST</td><td></td><td> </td> 05/17/2020 11:23:[address] [facility] GLUCOSE QUANTITATIVE BLOOD XCPT REAGENT STRIP <td>POCT GLUCOSE, DOCKED</td><td>Routine</td><td>05/17/2020 7:28 AM EST</td><td></td><td> </td> 05/17/2020 07:28:[address] [facility] HEPARIN ASSAY <td>ANTI-XA UNFRACTIONATED H EPARIN LEVEL</td><td>Routine</td><td>05/17/2020 4:30 AM EST</td><td></td><td> </td> 05/17/2020 04:30:[address] [facility] BLOOD COUNT COMPLETE AUTO&AUTO DIFRNTL WBC COUNT <td>C BC AND DIFFERENTIAL</td><td>Timed</td><td>05/17/2020 4:30 AM EST</td><td></td><td> </td> 05/17/2020 04:30:[address] [facility] BASIC METABOLIC PANEL CALCIUM TOTAL <td>BASIC METABOLI C PANEL</td><td>Routine</td><td>05/17/2020 4:30 AM EST</td><td></td><td> </td> 05/17/2020 04:30:[address] [facility] GLUCOSE QUANTITATIVE BLOOD XCPT REAGENT STRIP <td>POCT GLUCOSE, DOCKED</td><td>Routine</td><td>05/16/2020 9:51 PM EST</td><td></td><td> </td> 05/16/2020 09:51:[address] [facility] MRA NECK W/O CONTRST MATERIAL <td>MR ANGIOGRAPHY NECK WITHOUT CONTRAST [id number]</td><td>Routine</td><td>05/16/2020 6:42 PM EST</td><td></td><td> </td> 05/16/2020 06:42:[address] [facility] MRA HEAD W/O CONTRST MATERIAL <td>MR ANGIOGRAPHY HEAD WITHOUT CONTRAST [id number]</td><td>Routine</td><td>05/16/2020 6:42 PM EST</td><td></td><td> </td> 05/16/2020 06:42:[address] [facility] BLOOD COUNT COMPLETE AUTO&AUTO DIFRNTL WBC COUNT <td>C BC AND DIFFERENTIAL</td><td>Timed</td><td>05/16/2020 5:35 PM EST</td><td></td><td> </td> 05/16/2020 05:35:[address] [facility] GLUCOSE QUANTITATIVE BLOOD XCPT REAGENT STRIP <td>POCT GLUCOSE, DOCKED</td><td>Routine</td><td>05/16/2020 5:24 PM EST</td><td></td><td> </td> 05/16/2020 05:24:[address] [facility] COVID-19 PCR <td>COVID-19 PCR</td><td>[place]</td><td>05/16/2020 4:11 PM EST</td><td></td><td> </td> 05/16/2020 04:11:[address] [facility] GLUCOSE QUANTITATIVE BLOOD XCPT REAGENT STRIP <td>POCT GLUCOSE, DOCKED</td><td>Routine</td><td>05/16/2020 3:40 PM EST</td><td></td><td> </td> 05/16/2020 03:40:[address] [facility] GLUCOSE QUANTITATIVE BLOOD XCPT REAGENT STRIP <td>POCT GLUCOSE, DOCKED</td><td>Routine</td><td>05/16/2020 2:07 PM EST</td><td></td><td> </td> 05/16/2020 02:07:[address] [facility] GLUCOSE QUANTITATIVE BLOOD XCPT REAGENT STRIP <td>POCT GLUCOSE, DOCKED</td><td>Routine</td><td>05/16/2020 12:27 PM EST</td><td></td><td> </td> 05/16/2020 12:27:[address] [facility] GLUCOSE QUANTITATIVE BLOOD XCPT REAGENT STRIP <td>POCT GLUCOSE, DOCKED</td><td>Routine</td><td>05/16/2020 8:09 AM EST</td><td></td><td> </td> 05/16/2020 08:09:[address] [facility] BLOOD COUNT COMPLETE AUTO&AUTO DIFRNTL WBC COUNT <td>C BC AND DIFFERENTIAL</td><td>Timed</td><td>05/16/2020 6:27 AM EST</td><td></td><td> </td> 05/16/2020 06:27:[address] [facility] BASIC METABOLIC PANEL CALCIUM TOTAL <td>BASIC METABOLI C PANEL</td><td>Routine</td><td>05/16/2020 6:27 AM EST</td><td></td><td> </td> 05/16/2020 06:27:[address] [facility] EKG 12-LEAD - [facility]MA[facility] REPORT <td>EKG 12-LEAD - [facility]MA[facility] REPORT</td><td></td><td>05/16/2020 1:13 AM EST</td><td></td><td></td> 05/16/2020 01:13:[address] [facility] EKG 12-LEAD - [facility]MA[facility] REPORT <td>EKG 12-LEAD - [facility]MA[facility] REPORT</td><td></td><td>05/16/2020 1:13 AM EST</td><td></td><td></td> 05/16/2020 01:13:[address] [facility] EKG 12-LEAD <td>EKG 12-LEAD</td><td>Rout ine</td><td>05/16/2020 1:13 AM EST</td><td></td><td> </td> 05/16/2020 01:13:[address] [facility] GLUCOSE QUANTITATIVE BLOOD XCPT REAGENT STRIP <td>POCT GLUCOSE, DOCKED</td><td>Routine</td><td>05/15/2020 9:04 PM EST</td><td></td><td> </td> 05/15/2020 09:04:[address] [facility] BLOOD COUNT COMPLETE AUTO&AUTO DIFRNTL WBC COUNT <td>C BC AND DIFFERENTIAL</td><td>Timed</td><td>05/15/2020 6:31 PM EST</td><td></td><td> </td> 05/15/2020 06:31:[address] [facility] GLUCOSE QUANTITATIVE BLOOD XCPT REAGENT STRIP <td>POCT GLUCOSE, DOCKED</td><td>Routine</td><td>05/15/2020 5:17 PM EST</td><td></td><td> </td> 05/15/2020 05:17:[address] [facility] GLUCOSE QUANTITATIVE BLOOD XCPT REAGENT STRIP <td>POCT GLUCOSE, DOCKED</td><td>Routine</td><td>05/15/2020 12:08 PM EST</td><td></td><td> </td> 05/15/2020 12:08:[address] [facility] PLATELET AGGREGATION IN VITRO EACH AGENT <td>VERIFYNOW P2Y12</td><td>Routine</td><td>05/15/2020 11:47 AM EST</td><td></td><td> </td> 05/15/2020 11:47:[address] [facility] CREATINE KINASE TOTAL <td>CK</td><td>Routine</td>< td>05/15/2020 11:47 AM EST</td><td></td><td> </td> 05/15/2020 11:47:[address] [facility] GLUCOSE QUANTITATIVE BLOOD XCPT REAGENT STRIP <td>POCT GLUCOSE, DOCKED</td><td>Routine</td><td>05/15/2020 8:26 AM EST</td><td></td><td> </td> 05/15/2020 08:26:[address] [facility] BLOOD COUNT COMPLETE AUTO&AUTO DIFRNTL WBC COUNT <td>C BC AND DIFFERENTIAL</td><td>Timed</td><td>05/15/2020 3:59 AM EST</td><td></td><td> </td> 05/15/2020 03:59:[address] [facility] BASIC METABOLIC PANEL CALCIUM TOTAL <td>BASIC METABOLI C PANEL</td><td>Routine</td><td>05/15/2020 3:59 AM EST</td><td></td><td> </td> 05/15/2020 03:59:[address] [facility] URNLS DIP STICK/TABLET REAGENT AUTO MICROSCOPY <td>URI NALYSIS WITH REFLEX URINE CULTURE</td><td>Routine</td><td>05/14/2020 6:25 PM EST</td><td></td><td> </td> 05/14/2020 06:25:[address] [facility] CULTURE BCT ISOL&PRSMPTV ID ISOLATE EA URINE <td>URINE CULTURE</td><td>Routine</td><td>05/14/2020 6:25 PM EST</td><td></td><td> </td> 05/14/2020 06:25:[address] [facility] BLOOD COUNT COMPLETE AUTO&AUTO DIFRNTL WBC COUNT <td>C BC AND DIFFERENTIAL</td><td>Timed</td><td>05/14/2020 5:49 PM EST</td><td></td><td> </td> 05/14/2020 05:49:[address] [facility] GLUCOSE QUANTITATIVE BLOOD XCPT REAGENT STRIP <td>POCT GLUCOSE, DOCKED</td><td>Routine</td><td>05/14/2020 5:24 PM EST</td><td></td><td> </td> 05/14/2020 05:24:[address] [facility] GLUCOSE QUANTITATIVE BLOOD XCPT REAGENT STRIP <td>POCT GLUCOSE, DOCKED</td><td>Routine</td><td>05/14/2020 2:28 PM EST</td><td></td><td> </td> 05/14/2020 02:28:[address] [facility] EKG 12-LEAD - [facility]MA[facility] REPORT <td>EKG 12-LEAD - [facility]MAXX REPORT</td><td></td><td>05/14/2020 2:23 PM EST</td><td></td><td></td> 05/14/2020 02:23:[address] [facility] EKG 12-LEAD - [facility]MAXX REPORT <td>EKG 12-LEAD - [facility]MA[facility] REPORT</td><td></td><td>05/14/2020 2:23 PM EST</td><td></td><td></td> 05/14/2020 02:23:[address] [facility] EKG 12-LEAD <td>EKG 12-LEAD</td><td>STAT </td><td>05/14/2020 2:23 PM EST</td><td></td><td> </td> 05/14/2020 02:23:[address] [facility] RADAR TECHNICIAN PROCEDURE <td>RADAR TECHNICIAN PROCEDURE</td>< td>Routine</td><td>05/14/2020 2:00 PM EST</td><td></td><td> </td> 05/14/2020 02:00:[address] [facility] COAGULATION TIME ACTIVATED <td>POCT ISTAT ACT</td><td> Routine</td><td>05/14/2020 12:11 PM EST</td><td></td><td> </td> 05/14/2020 12:11:[address] [facility] COAGULATION TIME ACTIVATED <td>POCT ISTAT ACT</td><td> Routine</td><td>05/14/2020 11:36 AM EST</td><td></td><td> </td> 05/14/2020 11:36:[address] [facility] HEART FLOW RESERV MEASURE,INIT VESSL [[id number]] <td>HEART FLOW RESERV MEASURE,INIT VESSL [[id number]]</td><td></td><td>05/14/2020 10:31 AM EST</td><td> angina</td><td></td> 05/14/2020 10:31:00 AM EST - 05/14/2020 01:43:[address] [facility] PRQ TRLUML CORONARY STENT W/ANGIO ONE ART/BRNCH [[id number] ] <td>PRQ TRLUML CORONARY STENT W/ANGIO ONE ART/BRNCH [[id number]]</td><td></td><td>05/14/2020 10:31 AM EST</td><td> angina</td><td></td> 05/14/2020 10:31:00 AM EST - 05/14/2020 01:43:[address] [facility] INTRAVASC US,HEART,1ST VESSEL [[id number]] <td>INTRAVASC US ,HEART,1ST VESSEL [[id number]]</td><td></td><td>05/14/2020 10:31 AM EST</td><td> angina</td><td></td> 05/14/2020 10:31:00 AM EST - 05/14/2020 01:43:[address] [facility] PRQ TRLUML CORONARY ANGIOPLASTY ONE ART/BRANCH [[id number]] <td>PRQ TRLUML CORONARY ANGIOPLASTY ONE ART/BRANCH [[id number]]</td><td></td><td>05/14/2020 10:31 AM EST</td><td> angina</td><td></td> 05/14/2020 10:31:00 AM EST - 05/14/2020 01:43:[address] [facility] L HRT ART/GRFT ANGIO <td>L HRT ART/GRFT ANGIO</td ><td></td><td>05/14/2020 10:31 AM EST</td><td> angina</td><td></td> 05/14/2020 10:31:00 AM EST - 05/14/2020 01:43:[address] [facility] CARDIAC CATH PROCEDURE LOG <td>CARDIAC CATH PROCEDURE LOG</td><td></td><td>05/14/2020 9:59 AM EST</td><td></td><td></td> 05/14/2020 09:59:[address] [facility] GLUCOSE QUANTITATIVE BLOOD XCPT REAGENT STRIP <td>POCT GLUCOSE, DOCKED</td><td>Routine</td><td>05/14/2020 8:08 AM EST</td><td></td><td> </td> 05/14/2020 08:08:[address] [facility] HEPARIN ASSAY <td>ANTI-XA UNFRACTIONATED H EPARIN LEVEL</td><td>Routine</td><td>05/14/2020 3:45 AM EST</td><td></td><td> </td> 05/14/2020 03:45:[address] [facility] PROTHROMBIN TIME <td>PROTIME INR</td><td>Rout ine</td><td>05/14/2020 3:45 AM EST</td><td></td><td> </td> 05/14/2020 03:45:[address] [facility] BLOOD COUNT COMPLETE AUTO&AUTO DIFRNTL WBC COUNT <td>C BC AND DIFFERENTIAL</td><td>Timed</td><td>05/14/2020 3:45 AM EST</td><td></td><td> </td> 05/14/2020 03:45:[address] [facility] BASIC METABOLIC PANEL CALCIUM TOTAL <td>BASIC METABOLI C PANEL</td><td>Routine</td><td>05/14/2020 3:45 AM EST</td><td></td><td> </td> 05/14/2020 03:45:[address] [facility] GLUCOSE QUANTITATIVE BLOOD XCPT REAGENT STRIP <td>POCT GLUCOSE, DOCKED</td><td>Routine</td><td>05/13/2020 10:57 PM EST</td><td></td><td> </td> 05/13/2020 10:57:[address] [facility] HEPARIN ASSAY <td>ANTI-XA UNFRACTIONATED H EPARIN LEVEL</td><td>Routine</td><td>05/13/2020 8:05 PM EST</td><td></td><td> </td> 05/13/2020 08:05:[address] [facility] HEPARIN ASSAY <td>ANTI-XA UNFRACTIONATED H EPARIN LEVEL</td><td>Routine</td><td>05/13/2020 5:18 PM EST</td><td></td><td> </td> 05/13/2020 05:18:[address] [facility] PROTHROMBIN TIME <td>PROTIME INR</td><td>Rout ine</td><td>05/13/2020 5:18 PM EST</td><td></td><td> </td> 05/13/2020 05:18:[address] [facility] BLOOD COUNT COMPLETE AUTO&AUTO DIFRNTL WBC COUNT <td>C BC AND DIFFERENTIAL</td><td>Routine</td><td>05/13/2020 5:15 PM EST</td><td></td><td> </td> 05/13/2020 05:15:[address] [facility] HEMOGLOBIN GLYCOSYLATED A1C <td>HEMOGLOBIN A1C</td><td>Routine</td><td>05/13/2020 5:15 PM EST</td><td></td><td> </td> 05/13/2020 05:15:[address] [facility] GLUCOSE QUANTITATIVE BLOOD XCPT REAGENT STRIP <td>POCT GLUCOSE, DOCKED</td><td>Routine</td><td>05/13/2020 5:09 PM EST</td><td></td><td> </td> 05/13/2020 05:09:[address] [facility] HEPARIN ASSAY <td>ANTI-XA UNFRACTIONATED H EPARIN LEVEL</td><td>Routine</td><td>05/13/2020 4:09 PM EST</td><td></td><td> </td> 05/13/2020 04:09:[address] [facility] PROTHROMBIN TIME <td>PROTIME INR</td><td>Rout ine</td><td>05/13/2020 4:09 PM EST</td><td></td><td> </td> 05/13/2020 04:09:[address] [facility] GLUCOSE QUANTITATIVE BLOOD XCPT REAGENT STRIP <td>POCT GLUCOSE, DOCKED</td><td>Routine</td><td>05/13/2020 12:50 PM EST</td><td></td><td> </td> 05/13/2020 12:50:[address] [facility] VASC LAB US DOPPLER CAROTID BILATERAL COMP [id number] <td>V ASC LAB US DOPPLER CAROTID BILATERAL COMP 23625</td><td>Routine</td><td>05/13/2020 12:04 PM EST</td><td></td><td> </td> 05/13/2020 12:04:[address] [facility] GLUCOSE QUANTITATIVE BLOOD XCPT REAGENT STRIP <td>POCT GLUCOSE, DOCKED</td><td>Routine</td><td>05/13/2020 8:57 AM EST</td><td></td><td> </td> 05/13/2020 08:57:[address] [facility] BLOOD COUNT COMPLETE AUTO&AUTO DIFRNTL WBC COUNT <td>C BC AND DIFFERENTIAL</td><td>Timed</td><td>05/13/2020 6:23 AM EST</td><td></td><td> </td> 05/13/2020 06:23:[address] [facility] TROPONIN QUANTITATIVE <td>TROPONIN T</td><td>Routi ne</td><td>05/13/2020 6:23 AM EST</td><td></td><td> </td> 05/13/2020 06:23:[address] [facility] BASIC METABOLIC PANEL CALCIUM TOTAL <td>BASIC METABOLI C PANEL</td><td>Routine</td><td>05/13/2020 6:23 AM EST</td><td></td><td> </td> 05/13/2020 06:23:[address] [facility] GLUCOSE QUANTITATIVE BLOOD XCPT REAGENT STRIP <td>POCT GLUCOSE, DOCKED</td><td>Routine</td><td>05/12/2020 5:09 PM EST</td><td></td><td> </td> 05/12/2020 05:09:[address] [facility] BLOOD COUNT COMPLETE AUTOMATED <td>CBC</td><td>STAT</t d><td>05/12/2020 12:50 PM EST</td><td></td><td> </td> 05/12/2020 12:50:[address] [facility] GLUCOSE QUANTITATIVE BLOOD XCPT REAGENT STRIP <td>POCT GLUCOSE, DOCKED</td><td>Routine</td><td>05/12/2020 12:21 PM EST</td><td></td><td> </td> 05/12/2020 12:21:[address] [facility] URNLS DIP STICK/TABLET REAGENT AUTO MICROSCOPY <td>URI NALYSIS WITH MICROSCOPIC</td><td>STAT</td><td>05/12/2020 10:28 AM EST</td><td></td><td> </td> 05/12/2020 10:28:[address] [facility] BLOOD COUNT COMPLETE AUTOMATED <td>CBC</td><td>STAT</t d><td>05/12/2020 10:28 AM EST</td><td></td><td> </td> 05/12/2020 10:28:[address] [facility] THYROID STIMULATING HORMONE TSH <td>TSH</td><td>Routin e</td><td>05/12/2020 9:48 AM EST</td><td></td><td> </td> 05/12/2020 09:48:[address] [facility] GLUCOSE QUANTITATIVE BLOOD XCPT REAGENT STRIP <td>POCT GLUCOSE, DOCKED</td><td>Routine</td><td>05/12/2020 8:16 AM EST</td><td></td><td> </td> 05/12/2020 08:16:[address] [facility] ECHO TTHRC R-T 2D W/WOM-MODE COMPL SPEC&COLR DOP <td>E CHOCARDIOGRAM 2D COMPLETE</td><td>Routine</td><td>05/12/2020 8:06 AM EST</td><td></td><td> </td> 05/12/2020 08:06:[address] [facility] THROMBOPLASTIN TIME PARTIAL PLASMA/WHOLE BLOOD <td>PAR TIAL THROMBOPLASTIN TIME (PTT)</td><td>Timed</td><td>05/12/2020 6:38 AM EST</td><td></td><td> </td> 05/12/2020 06:38:[address] [facility] PROTHROMBIN TIME <td>PROTIME INR</td><td>Rout ine</td><td>05/12/2020 6:38 AM EST</td><td></td><td> </td> 05/12/2020 06:38:[address] [facility] BLOOD COUNT COMPLETE AUTO&AUTO DIFRNTL WBC COUNT <td>C BC AND DIFFERENTIAL</td><td>Routine</td><td>05/12/2020 6:38 AM EST</td><td></td><td> </td> 05/12/2020 06:38:[address] [facility] MAGNESIUM <td>MAGNESIUM LEVEL</td><td> Routine</td><td>05/12/2020 6:38 AM EST</td><td></td><td> </td> 05/12/2020 06:38:[address] [facility] BASIC METABOLIC PANEL CALCIUM TOTAL <td>BASIC METABOLI C PANEL</td><td>Routine</td><td>05/12/2020 6:38 AM EST</td><td></td><td> </td> 05/12/2020 06:38:[address] [facility] GLUCOSE QUANTITATIVE BLOOD XCPT REAGENT STRIP <td>POCT GLUCOSE, DOCKED</td><td>Routine</td><td>05/11/2020 11:06 PM EST</td><td></td><td> </td> 05/11/2020 11:06:[address] [facility] THROMBOPLASTIN TIME PARTIAL PLASMA/WHOLE BLOOD <td>PAR TIAL THROMBOPLASTIN TIME (PTT)</td><td>Timed</td><td>05/11/2020 10:54 PM EST</td><td></td><td> </td> 05/11/2020 10:54:[address] [facility] TROPONIN QUANTITATIVE <td>TROPONIN T</td><td>Timed </td><td>05/11/2020 10:54 PM EST</td><td></td><td> </td> 05/11/2020 10:54:[address] [facility] RESPIRATORY PATHOGEN PANEL <td>RESPIRATORY PATHOGEN PANEL</td><td>Routine</td><td>05/11/2020 6:11 PM EST</td><td></td><td> </td> 05/11/2020 06:11:[address] [facility] COVID-19 PCR <td>COVID-19 PCR</td><td>Rou oneal</td><td>05/11/2020 6:11 PM EST</td><td></td><td> </td> 05/11/2020 06:11:[address] [facility] HEPARIN ASSAY <td>ANTI-XA UNFRACTIONATED H EPARIN LEVEL</td><td>Routine</td><td>05/11/2020 6:09 PM EST</td><td></td><td> </td> 05/11/2020 06:09:[address] [facility] GLUCOSE QUANTITATIVE BLOOD XCPT REAGENT STRIP <td>POCT GLUCOSE, DOCKED</td><td>Routine</td><td>05/11/2020 5:43 PM EST</td><td></td><td> </td> 05/11/2020 05:43:[address] [facility] HEPATITIS B CORE ANTIBODY HBCAB IGM ANTIBODY <td>HEPAT ITIS B CORE ANTIBODY, IGM</td><td>Routine</td><td>05/11/2020 4:35 PM EST</td><td></td><td> </td> 05/11/2020 04:35:[address] [facility] HEPATITIS B CORE ANTIBODY HBCAB TOTAL <td>HEPATITIS B CORE ANTIBODY, TOTAL</td><td>Routine</td><td>05/11/2020 4:35 PM EST</td><td></td><td> </td> 05/11/2020 04:35:[address] [facility] HEPATITIS B SURF ANTIBODY HBSAB <td>HEPATITIS B SURFAC E ANTIBODY</td><td>Routine</td><td>05/11/2020 4:35 PM EST</td><td></td><td> </td> 05/11/2020 04:35:[address] [facility] IAAD EIA HEPATITIS B SURFACE ANTIGEN <td>HEPATITIS B S URFACE ANTIGEN</td><td>Routine</td><td>05/11/2020 4:35 PM EST</td><td></td><td> </td> 05/11/2020 04:35:[address] [facility] THROMBOPLASTIN TIME PARTIAL PLASMA/WHOLE BLOOD <td>PAR TIAL THROMBOPLASTIN TIME (PTT)</td><td>Routine</td><td>05/11/2020 4:34 PM EST</td><td></td><td> </td> 05/11/2020 04:34:[address] [facility] CLOTTING FACTOR X ABBY-PROWER <td>FACTOR 10 ASSAY LEVEL</td><td>Routine</td><td>05/11/2020 4:34 PM EST</td><td></td><td> </td> 05/11/2020 04:34:[address] [facility] BLOOD COUNT COMPLETE AUTO&AUTO DIFRNTL WBC COUNT <td>C BC AND DIFFERENTIAL</td><td>Routine</td><td>05/11/2020 4:34 PM EST</td><td></td><td> </td> 05/11/2020 04:34:[address] [facility] TROPONIN QUANTITATIVE <td>TROPONIN T</td><td>Timed </td><td>05/11/2020 4:34 PM EST</td><td></td><td> </td> 05/11/2020 04:34:[address] [facility] MAGNESIUM <td>MAGNESIUM LEVEL</td><td> Routine</td><td>05/11/2020 4:34 PM EST</td><td></td><td> </td> 05/11/2020 04:34:[address] [facility] BASIC METABOLIC PANEL CALCIUM TOTAL <td>BASIC METABOLI C PANEL</td><td>Routine</td><td>05/11/2020 4:34 PM EST</td><td></td><td> </td> 05/11/2020 04:34:[address] [facility] EKG 12-LEAD - [facility] REPORT <td>EKG 12-LEAD - [facility]MA[facility] REPORT</td><td></td><td>05/11/2020 3:47 PM EST</td><td></td><td></td> 05/11/2020 03:47:[address] [facility] EKG 12-LEAD - [facility]MAXX REPORT <td>EKG 12-LEAD - [facility]MAXX REPORT</td><td></td><td>05/11/2020 3:47 PM EST</td><td></td><td></td> 05/11/2020 03:47:[address] [facility] EKG 12-LEAD <td>EKG 12-LEAD</td><td>Rout ine</td><td>05/11/2020 3:47 PM EST</td><td></td><td> </td> 05/11/2020 03:47:[address] [facility] EKG 12-LEAD - [facility] REPORT <td>EKG 12-LEAD - [facility] REPORT</td><td></td><td>05/11/2020 3:46 PM EST</td><td></td><td></td> 05/11/2020 03:46:[address] [facility] EKG 12-LEAD - [facility]MAXX REPORT <td>EKG 12-LEAD - [facility] REPORT</td><td></td><td>05/11/2020 3:46 PM EST</td><td></td><td></td> 05/11/2020 03:46:[address] [facility] EKG 12-LEAD <td>EKG 12-LEAD</td><td>Rout ine</td><td>05/11/2020 3:46 PM EST</td><td></td><td></td> 05/11/2020 03:46:38 PM EST [facility] EKG 12-LEAD <td>EKG 12-LEAD</td><td>Rout ine</td><td>05/11/2020 3:46 PM EST</td><td></td><td> </td> 05/11/2020 03:46:[address] [facility] Pare Hyperkeratotic Lesion, Single 05/08/2020 12:00:00 AM EST [facility] ([facility]) Debridement Nails Any Method 6 Or More 05/08/2020 12:0 0:00 AM EST [facility] ([facility]) ECG ROUTINE ECG W/LEAST 12 LDS W/I&R 05/01/2020 12:00: 00 AM EST [facility] ([facility]) OFFICE OUTPATIENT VISIT 25 MINUTES 05/01/2020 12:00:00 AM EST [facility] ([facility]) Dialysis Circuit W/ Transluminal Balloon Angioplasty, Periph eral 01/19/2020 12:00:00 AM EST [facility] ([facility] ) Moderate Sedation Services; Same Phys Intl 15 Mins; PT >= 5 Years 01/19/2020 12:00:00 AM EST [facility] ([facility] ) MYOCARDIAL SPECT MULTIPLE STUDIES 11/27/2019 12:00:00 AM EDT [facility] ([facility]) CV STRS TST XERS&/OR RX CONT ECG PHYS SI&R 11/27/2019 12:00:00 AM EDT [facility] ([facility]) Results ID Date Data Source [id number] 10/29/2020 01:54:00 PM EDT [facility] ([facility] Name Value Range Interpretation Code Description Data Tere rce(s) Supporting Document(s) White Blood Count 3.7 4.0-10.0 [facility] ([facility] Hemoglobin 10.2 13.5-17.5 [facility] ([facility]) Red Blood Count 3.36 4.30-6.10 [facility] Platelets 174 150-450 [facility] Hematocrit 31.8 42.0-52.0 [facility] ([facility]) ID Date Data Source [id number] 10/29/2020 01:54:00 PM EDT [facility] ([facility]) Name Value Range Interpretation Code Description Data Tere rce(s) Supporting Document(s) Magnesium Level 1.8 1.8-2.4 [facility] ([facility]) ID Date Data Source [id number] 10/29/2020 01:54:00 PM EDT [facility] ([facility] Name Value Range Interpretation Code Description Data Tere rce(s) Supporting Document(s) Albumin [Mass/volume] in Serum or Plasma 3.0 [facility] ([facility]) Calcium [Mass/volume] in Serum or Plasma 8.4 [facility] ([facility]) Alanine aminotransferase [Enzymatic activity/volume] in Serum or Pl asma 18 [facility] ([facility]) Chloride [Moles/volume] in Serum or Plasma 105 [facility] ([facility]) Carbon dioxide, total [Moles/volume] in Serum or Plasma 8.4 [facility] ([facility]) Protein [Mass/volume] in Serum or Plasma 5.9 [facility] ([facility]) Potassium [Moles/volume] in Serum or Plasma 4.6 [facility] ([facility]) Alkaline phosphatase [Enzymatic activity/volume] in Serum or Plasma 9 7 [facility] ([facility]) Sodium 138 [facility] Aspartate aminotransferase [Enzymatic activity/volume] in Serum or Plasma 11 [facility] ([facility]) Glucose 179 70-100 [facility] Urea nitrogen [Mass/volume] in Serum or Plasma 68 [facility] ([facility]) Creatinine For GFR 5.45 [facility] ([facility] ID Date Data Source [id number] 10/25/2020 01:44:00 PM EDT [facility] ([facility] Name Value Range Interpretation Code Description Data Tere rce(s) Supporting Document(s) Magnesium Level 1.9 [facility] ([facility]) ID Date Data Source [id number] 10/25/2020 01:44:00 PM EDT [facility] ([facility] Name Value Range Interpretation Code Description Data Tere rce(s) Supporting Document(s) Albumin [Mass/volume] in Serum or Plasma 3.1 [facility] ([facility]) Alanine aminotransferase [Enzymatic activity/volume] in Serum or Pl asma 21 [facility] ([facility]) Carbon dioxide, total [Moles/volume] in Serum or Plasma 26 [facility] ([facility]) Calcium [Mass/volume] in Serum or Plasma 9.2 [facility] ([facility]) Chloride [Moles/volume] in Serum or Plasma 107 [facility] ([facility]) Alkaline phosphatase [Enzymatic activity/volume] in Serum or Plasma 9 5 [facility] ([facility]) Potassium [Moles/volume] in Serum or Plasma 4.4 [facility] ([facility]) Sodium 140 [facility] Protein [Mass/volume] in Serum or Plasma 6.6 [facility] ([facility]) Urea nitrogen [Mass/volume] in Serum or Plasma 29 [facility] ([facility]) Aspartate aminotransferase [Enzymatic activity/volume] in Serum or Plasma 11 [facility] ([facility]) Glucose 183 70-100 [facility] Creatinine For GFR 3.06 [facility] ([facility]) ID Date Data Source [id number] 10/25/2020 01:44:00 PM EDT [facility]) Name Value Range Interpretation Code Description Data Tere rce(s) Supporting Document(s) White Blood Count 3.3 4.0-10.0 [facility] ([facility] Red Blood Count 3.36 4.30-6.10 [facility]) Platelets 142 150-450 [facility] Hematocrit 32.2 42.0-52.0 [facility] ([facility]) Hemoglobin 10.2 13.5-17.5 [facility] ([facility]) ID Date Data Source [id number] 10/23/2020 10:52:00 AM EDT [facility] ([facility]) Name Value Range Interpretation Code Description Data Tere rce(s) Supporting Document(s) Albumin [Mass/volume] in Serum or Plasma 3.1 [facility] ([facility]) Calcium [Mass/volume] in Serum or Plasma 8.8 [facility] ([facility]) Alanine aminotransferase [Enzymatic activity/volume] in Serum or Pl asma 19 [facility] ([facility]) Chloride [Moles/volume] in Serum or Plasma 106 [facility] ([facility]) Carbon dioxide, total [Moles/volume] in Serum or Plasma 27 [facility] ([facility]) Potassium [Moles/volume] in Serum or Plasma 4.7 [facility] ([facility]) Alkaline phosphatase [Enzymatic activity/volume] in Serum or Plasma 6 8 [facility] ([facility]) Protein [Mass/volume] in Serum or Plasma 5.8 [facility] ([facility]) Sodium 140 [facility] Aspartate aminotransferase [Enzymatic activity/volume] in Serum or Plasma 11 [facility] ([facility]) Urea nitrogen [Mass/volume] in Serum or Plasma 83 [facility] ([facility]) Glucose 118 83-110 [facility] Creatinine For GFR 4.78 [facility] ([facility]) ID Date Data Source [id number] 10/23/2020 10:52:00 AM EDT [facility] ([facility]) Name Value Range Interpretation Code Description Data Tere rce(s) Supporting Document(s) White Blood Count 4.3 5.0-10.0 [facility] ([facility] Red Blood Count 3.28 4.00-5.40 [facility] ([facility]) Platelets 133 172-450 [facility] Hemoglobin 9.9 [facility]) Hematocrit 31.3 [facility] ([facility]) ID Date Data Source [id number] 10/22/2020 05:05:00 PM EDT [facility] Name Value Range Interpretation Code Description Data Tere rce(s) Supporting Document(s) SARS coronavirus 2 RNA [Presence] in Res piratory specimen by MARI with probe detection NEGATIVE [facility] This lab was ordered by [facility] a nd reported by [facility]. ID Date Data Source [id number] 10/22/2020 02:12:00 PM EDT [facility] ([facility] Name Value Range Interpretation Code Description Data Tere rce(s) Supporting Document(s) CPK Creatine Phosphokinase 43 U/L 39-308 Jessica l (applies to non-numeric results) [facility] ([facility] ) CK-MB Value Mass Laboratory test result Normal ( applies to non-numeric results) [facility] ([facility] ) MB/CK Relative Index 2.33 Normal (applies to non-num milena results) [facility] ([facility] <content>DIAGNOSIS CRITERIA</content>
<content>MMB ng/ml Relative Index (RI)</content>
<content>NON-AMI < or = 5 N/A</content>
<content>LANE ZONE > 5 < or = 4</content>
<content>AMI > 5 > 4</content>
<content></content> Troponin I 0.10 ng/mL Normal (applies to non-numeric resul ts) [facility] ([facility] <content>Troponin I Reference Interval f or Siemens [place] LOCI:</content>
<content></content>
<content>99th Percentile= 0.00-0.045 ng/ml</content>
<content></content>
<content>Risk Stratification:</content>
<content><= 0.10 ng/ml Decreased Risk for Adverse Clinical</content>
<content>Events.</content>
<content>0.10-1.50 ng/ml Increased Risk for Adverse Clinical</content>
<content>Events. Evaluation of additional</content>
<content>criterion and/or repeat testing in 2-6</content>
<content>hours is suggested to rule out myocardial</content>
<content>damage.</content>
<content>>= 1.50 ng/ml Indicative of Myocardial Injury.</content>
<content></content> ID Date Data Source [id number] 10/22/2020 01:44:00 PM EDT [facility] ([facility] Name Value Range Interpretation Code Description Data Tere rce(s) Supporting Document(s) Glucose [Mass/volume] in Capillary blood by Glucometer 146 mg/dL 83-110 Above high normal [facility] ([facility] ) ID Date Data Source [id number] 10/22/2020 12:17:00 PM EDT [facility] ([facility] Name Value Range [...] Little GFR Left</content>
<content>ESRD GFR <15 on [facility]</content>
<content></content> Creatinine For GFR 4.56 mg/dL 0.70-1.30 Above high normal [facility] ([facility] Sodium Level 140 meq/L 136-145 Normal (applies to non-numeric res ults) [facility] ([facility] Potassium Serum 4.4 meq/L 3.5-5.1 Normal (applies to non-numeric results) [facility] ([facility] Chloride Level 105 meq/L 98-107 Normal (applies to non-numeric r esults) [facility] ([facility] Anion Gap 7 meq/L 8-16 Below low normal [facility] Carbon Dioxide Level 28 meq/L 21-32 Normal (applies to non-num milena results) [facility] ([facility] Calcium Level 8.8 mg/dL 8.8-10.2 Normal (applies to non-numeric re sults) [facility] ([facility] ID Date Data Source [id number] 10/22/2020 12:17:00 PM EDT [facility] ([facility] Name Value Range Interpretation Code Description Data Tere rce(s) Supporting Document(s) Ast/Sgot 11 U/L 7-37 Normal (applies to non-numeric resul ts) [facility] ([facility] Alt/SGPT 21 U/L 12-78 Normal (applies to non-numeric resul ts) [facility] ([facility] Alkaline Phosphatase 77 U/L 45-117 Normal (applies to non-num milena results) [facility] ([facility] Bilirubin,Total 0.6 mg/dL 0.2-1.0 Normal (applies to non-numeric results) [facility] ([facility] Bilirubin,Direct 0.2 mg/dL 0.0-0.2 Normal (applies to non-numeric results) [facility] Albumin 3.2 GM/DL 3.2-5.2 Normal (applies to non-numeric resul ts) [facility] ([facility] Total Protein 6.3 GM/DL 6.4-8.2 Below low normal [facility] ([facility] Albumin/Globulin Ratio 1.0 Normal (applies to non-n umeric results) [facility] ([facility] ID Date Data Source [id number] 10/22/2020 12:17:00 PM EDT [facility] ([facility] Name Value Range Interpretation Code Description Data Tere rce(s) Supporting Document(s) CPK Creatine Phosphokinase 36 U/L 39-308 Below low normal [facility] ([facility] CK-MB Value Mass 1.8 ng/mL Normal (applies to non-numeric results) [facility] ([facility] Troponin I 0.11 ng/mL Above high normal [facility] ([facility] <content>Troponin I Reference Interval f or Siemens [place] LOCI:</content>
<content></content>
<content>99th Percentile= 0.00-0.045 ng/ml</content>
<content></content>
<content>Risk Stratification:</content>
<content><= 0.10 ng/ml Decreased Risk for Adverse Clinical</content>
<content>Events.</content>
<content>0.10-1.50 ng/ml Increased Risk for Adverse Clinical</content>
<content>Events. Evaluation of additional</content>
<content>criterion and/or repeat testing in 2-6</content>
<content>hours is suggested to rule out myocardial</content>
<content>damage.</content>
<content>>= 1.50 ng/ml Indicative of Myocardial Injury.</content>
<content></content> MB/CK Relative Index 5.00 Above high normal [facility] ([facility] <content>DIAGNOSIS CRITERIA</content>
<content>MMB ng/ml Relative Index (RI)</content>
<content>NON-AMI < or = 5 N/A</content>
<content>LANE ZONE > 5 < or = 4</content>
<content>AMI > 5 > 4</content>
<content></content> ID Date Data Source [id number] 10/22/2020 12:17:00 PM EDT [facility] ([facility] Name Value Range Interpretation Code Description Data Tere rce(s) Supporting Document(s) White Blood Count 3.8 10 4.0-10.0 Below low normal [facility] ([facility] Red Blood Count 3.25 10 4.30-6.10 Below low normal [facility] ([facility] Hemoglobin 10.0 g/dL 13.5-17.5 Below low normal [facility] ( [facility] Hematocrit 31.0 % 42.0-52.0 Below low normal [facility] ( [facility] Mean Corpuscular Volume 95.4 fl 80.0-96.0 Normal ( applies to non-numeric results) [facility] ([facility] ) Mean Corpuscular Hemoglobin 30.8 pg 27.0-33.0 Norm al (applies to non-numeric results) [facility] ([facility] ) Mean Corpuscular HGB Conc 32.3 g/dL 32.0-36.5 Normal (applies to non-numeric results) [facility] ([facility] ) Red Cell Distribution Width 14.2 % 11.5-14.5 Norm al (applies to non-numeric results) [facility] ([facility] ) Platelet Count, Automated 135 10 150-450 Below low normal [facility] ([facility] Neutrophils % 82.8 % 36.0-66.0 Above high normal [facility] ([facility] Lymph % 7.0 % 24.0-44.0 Below low normal [facility] ( [facility] Eos % 2.6 % 0.0-3.0 Normal (applies to non-numeric resul ts) [facility] ([facility] [place] % 6.8 % 2.0-8.0 Normal (applies to non-numeric resul ts) [facility] ([facility] Immature Granulocyte % 0.3 % 0-3.0 Normal (applies to non-n umeric results) [facility] ([facility] Baso % 0.5 % 0.0-1.0 Normal (applies to non-numeric resul ts) [facility] ([facility] Nucleated Red Blood Cell % 0.0 % 0-0 Normal (applies to n on-numeric results) [facility] ([facility] Neutrophils # 3.2 10 1.5-8.5 Normal (applies to non-numeric re sults) [facility] ([facility] Lymph # 0.3 10 1.5-5.0 Below low normal [facility] ( [facility] [place] # 0.3 10 0.0-0.8 Normal (applies to non-numeric resul ts) [facility] ([facility] Baso # 0.0 10 0.0-0.2 Normal (applies to non-numeric resul ts) [facility] ([facility] Eos # 0.1 10 0.0-0.5 Normal (applies to non-numeric resul ts) [facility] ([facility] ID Date Data Source [id number] 10/22/2020 12:17:00 PM EDT [facility] ([facility] Name Value Range Interpretation Code Description Data Tere rce(s) Supporting Document(s) Thyrotropin [Units/volume] in Serum or Plasma 2.700 uIU/ML 0. 358-3.740 Normal (applies to non-numeric results) [facility] Lipoprotein lipase [Enzymatic activity/volume] in Serum or P lasma 117 U/L 73-393 Normal (applies to non-numeric results) [facility] ([facility] Thyroxine (T4) free [Mass/volume] in Serum or Plasma 1.05 ng/dL 0.76-1.46 Normal (applies to non-numeric results) [facility] Natriuretic peptide.B prohormone N-Terminal [Mass/volu me] in Serum or Plasma 7290 pg/mL Above high normal [facility] ([facility] ID Date Data Source [id number] 10/22/2020 10:45:00 AM EDT [facility] Name Value Range Interpretation Code Description Data Tere rce(s) Supporting Document(s) Thyroid Stimulating Hormone 2.700 ME [facility] ([facility]) Free T4 1.05 [facility] ([facility]) ID Date Data Source [id number] 10/22/2020 10:45:00 AM EDT [facility] Name Value Range Interpretation Code Description Data Tere rce(s) Supporting Document(s) Albumin [Mass/volume] in Serum or Plasma 3.2 [facility] ([facility]) Calcium [Mass/volume] in Serum or Plasma 8.8 [facility] ([facility]) Alanine aminotransferase [Enzymatic activity/volume] in Serum or Pl asma 21 [facility] ([facility]) Carbon dioxide, total [Moles/volume] in Serum or Plasma 28 [facility] ([facility]) Chloride [Moles/volume] in Serum or Plasma 105 [facility] ([facility]) Alkaline phosphatase [Enzymatic activity/volume] in Serum or Plasma 7 7 [facility] ([facility]) Potassium [Moles/volume] in Serum or Plasma 4.4 [facility] ([facility]) Protein [Mass/volume] in Serum or Plasma 6.3 [facility] ([facility]) Sodium 140 [facility] Aspartate aminotransferase [Enzymatic activity/volume] in Serum or Plasma 11 [facility] ([facility]) Urea nitrogen [Mass/volume] in Serum or Plasma 80 [facility] ([facility]) Glucose 156 83-110 [facility] ([facility]) Creatinine For GFR 4.56 [facility] ([facility]) ID Date Data Source [id number] 10/22/2020 10:45:00 AM EDT [facility] ([facility] Name Value Range Interpretation Code Description Data Tere rce(s) Supporting Document(s) White Blood Count 3.8 5.0-10.0 [facility] ([facility]) Red Blood Count 3.25 4.00-5.40 [facility] ([facility]) Platelets 135 172-450 [facility] ([facility]) Hematocrit 31.0 [facility] ([facility]) Hemoglobin 10.0 [facility] ([facility]) ID Date Data Source [id number] 07/12/2020 02:45:00 PM EDT [facility] ([facility] Name Value Range Interpretation Code Description Data Tere rce(s) Supporting Document(s) Leukocytes [#/volume] in Blood by Automated count 4.0 x10E3/uL 3.4-10 .8 [facility] ([facility] Hemoglobin [Mass/volume] in Blood 11.5 g/dL 13.0-17.7 Below low nor mal [facility] ([facility] Erythrocytes [#/volume] in Blood by Automated count 3.66 x10E6/u L 4.14-5.80 Below low normal [facility] ([facility] ) Hematocrit [Volume Fraction] of Blood by Automated count 35.6 % 37.5-51.0 Below low normal [facility] ([facility] ) Erythrocyte mean corpuscular volume [Entitic volume] by Auto mated count 97 fL 79-97 [facility] ([facility] Erythrocyte mean corpuscular hemoglobin concentration [Mass/volume] by Automated count 32.3 g/dL 31.5-35.7 [facility] ([facility] Erythrocyte mean corpuscular hemoglobin [Entitic mass] by Automated count 31.4 pg 26.6-33.0 [facility] Erythrocyte distribution width [Ratio] by Automated count 13.5 % 11.6-15.4 [facility] ([facility] Platelets [#/volume] in Blood by Automated count 176 x10E3/uL 150-450 [facility] ([facility] Neutrophils 74 % [facility] ([facility] Lymphs 13 % [facility] ([facility] Monocytes/100 leukocytes in Blood [...] count 0.0 x10E3/uL 0.0-0.1 [facility] Basophils [#/volume] in Blood by Automated count 0.0 x10E3/uL 0.0-0.2 [facility] ([facility] Immature granulocytes/100 leukocytes in Blood by Automated count 0 % [facility] ([facility] Nucleated erythrocytes/100 leukocytes [Ratio] in Blood by Automated count Laboratory test result [facility] Morphology [Interpretation] in Blood Narrative Laboratory test result [facility] ([facility] ID Date Data Source [id number] 07/12/2020 02:45:00 PM EDT [facility] ([facility] Name Value Range Interpretation Code Description Data Tere rce(s) Supporting Document(s) Glu 164 mg/dL 70-110 Above high normal [facility] ([facility] CHRONIC KIDNEY [...] 51 mg/dL 8-23 Above high normal [facility] CHRONIC KIDNEY DISEASE STAGING [...] 3.3 mg/dL 0.7-1.2 Above high normal [facility] ([facility] CHRONIC KIDNEY DISEASE STAGING [...] mL/min Normal BUN/Creatinine Ratio 15.1 Calc [facility] ([facility] CHRONIC KIDNEY DISEASE STAGING [...] mL/min Normal Na 139 mmol/L 136-145 [facility] ([facility] CHRONIC KIDNEY DISEASE [...] mL/min Normal K 3.9 mmol/L 3.5-5.1 [facility] ([facility] CHRONIC KIDNEY DISEASE [...] mL/min Normal CL 99.4 mmol/L 98.0-107.0 [facility] ([facility] CHRONIC KIDNEY DISEASE STAGING [...] mL/min Normal Co2 24.3 mmol/L 22.0-29.0 [facility] ([facility] CHRONIC KIDNEY DISEASE [...] mL/min Normal CA 9.5 mg/dL 8.6-10.2 [facility] CHRONIC KIDNEY DISEASE [...] mL/min Normal Alb 4.1 g/dL 3.5-5.2 [facility] CHRONIC KIDNEY DISEASE [...] >32 mL/min Normal Globulin 2.2 Calc [facility] ([facility] [...] Normal Alt (SGPT) 17 U/L 0-41 [facility] CHRONIC KIDNEY DISEASE STAGING [...] mL/min Normal Alp 94.2 U/L 40-129 [facility] ([facility] CHRONIC KIDNEY DISEASE STAGING [...] Normal Ast (Sgot) 16 U/L 0-40 [facility] ([facility] CHRONIC KIDNEY DISEASE [...] mL/min Normal Tbili 0.63 mg/dL 0.0-1.2 [facility] ([facility] CHRONIC KIDNEY DISEASE [...] mL/min Normal Anion Gap 19 mmol/L [facility] CHRONIC KIDNEY DISEASE [...] mL/min Normal eGFR 20 # [facility] ( [facility] CHRONIC KIDNEY DISEASE STAGING [...] and above >32 mL/min Normal eGFR Non-Afr. Monegasque 17 # [facility] ([facility] CHRONIC KIDNEY DISEASE STAGING [...] >32 mL/min Normal ID Date Data Source [id number] 07/10/2020 03:26:00 PM EDT [facility] ([facility] Name Value Range Interpretation Code Description Data Tere rce(s) Supporting Document(s) Hemoglobin 11.0 14.0-18.0 [facility] ([facility]) Hematocrit 35.0 42.0-52.0 [facility] ([facility]) ID Date Data Source [id number] 07/10/2020 03:26:00 PM EDT [facility] ([facility] Name Value Range Interpretation Code Description Data Tere rce(s) Supporting Document(s) Potassium 3.9 3.5-5.1 [facility] ([facility]) ID Date Data Source [id number] 07/06/2020 03:27:00 PM EDT [facility] ([facility] Name Value Range Interpretation Code Description Data Tere rce(s) Supporting Document(s) Potassium 3.8 3.5-5.1 [facility] ([facility]) ID Date Data Source [id number] 07/06/2020 03:27:00 PM EDT [facility] ([facility]) Name Value Range Interpretation Code Description Data Tere rce(s) Supporting Document(s) Hemoglobin 10.7 14.0-18.0 [facility] ([facility]iology [facility]) Hematocrit 32.9 42.0-52.0 [facility] ([facility]) ID Date Data Source [id number] 06/29/2020 03:35:00 PM EDT [facility] ([facility]) Name Value Range Interpretation Code Description Data Tere rce(s) Supporting Document(s) Alkaline phosphatase [Enzymatic activity/volume] in Serum or Plasma 1 10 [facility] ([facility]) Total Protein 6.6 [facility] (Cardiolo gy [facility]) ID Date Data Source [id number] 06/29/2020 03:35:00 PM EDT [facility] ([facility]) Name Value Range Interpretation Code Description Data Tere rce(s) Supporting Document(s) Iron 51 [facility] ([facility] A [facility]) Iron binding capacity [Mass/volume] in Serum or Plasma 251 [facility] ([facility]) Tibc % Saturation 20 [facility] (Card ioly [facility]) ID Date Data Source [id number] 06/29/2020 03:35:00 PM EDT [facility] ([facility]) Name Value Range Interpretation Code Description Data Tere rce(s) Supporting Document(s) Ferritin [Mass/volume] in Serum or Plasma 727 22-322 [facility] ([facility]) ID Date Data Source [id number] 06/29/2020 03:35:00 PM EDT [facility] ([facility]) Name Value Range Interpretation Code Description Data Tere rce(s) Supporting Document(s) Misc 586 16-80 [facility] ([facility]) ID Date Data Source [id number] 06/29/2020 03:35:00 PM EDT [facility] ([facility]i [facility]y [facility]) Name Value Range Interpretation Code Description Data Tere rce(s) Supporting Document(s) Uric Acid 5.8 [facility] ([facility]iology A [facility]ociates [facility]) ID Date Data Source [id number] 06/29/2020 03:35:00 PM EDT [facility] ([facility]i [facility]y [facility]) Name Value Range Interpretation Code Description Data Tere rce(s) Supporting Document(s) Glucose Laboratory test result [facility] ([facility]) Blood Urea Nitrogen 90 [facility] (Ca rdiology [facility]) Glomerular filtration rate/1.73 sq M.pre dicted [Volume Rate/Area] in Serum or Plasma by Creatinine-based formula (MDRD) Laboratory test result [facility] ([facility]) Creatinine 5.72 [facility] ([facility]) Sodium 137 [facility] Potassium Laboratory test result [facility] ([facility]) Chloride Laboratory test result [facility] ([facility]) Carbon Dioxide 22 [facility] (Cardiol ogy [facility]) Calcium 9.6 [facility] Phosphorus Laboratory test result [facility] ([facility]) Albumin Laboratory test result [facility] ([facility]) ID Date Data Source [id number] 06/29/2020 03:35:00 PM EDT [facility] ([facility]i [facility]y [facility]) Name Value Range Interpretation Code Description Data Tere rce(s) Supporting Document(s) Platelets Laboratory test result [facility] ([facility]) Red Blood Count 11.9 [facility] (Cardio logy [facility]) White Blood Count 3.76 [facility] (Card i[facility]) Hematocrit 36.4 [facility] ([facility]) Hemoglobin 11.9 [facility] ([facility]) ID Date Data Source [id number] 06/17/2020 11:26:00 PM EDT [facility] Name Value Range Interpretation Code Description Data Tere rce(s) Supporting Document(s) SARS coronavirus 2 RNA [Presence] in Res piratory specimen by MARI with probe detection NEGATIVE [facility] This lab was ordered by [facility] a nd reported by [facility]. ID Date Data Source [id number] 06/17/2020 08:43:00 PM EDT [facility] ([facility] Name Value Range Interpretation Code Description Data Tere rce(s) Supporting Document(s) Red Blood Count 3.59 10 4.30-6.10 Below low normal [facility] ([facility] White Blood Count 4.2 10 4.0-10.0 Normal (applies to non-numeri c results) [facility] ([facility] Hematocrit 36.6 % 42.0-52.0 Below low normal [facility] ( [facility] Hemoglobin 11.3 g/dL 13.5-17.5 Below low normal [facility] ( [facility] Mean Corpuscular Volume 101.9 fl 80.0-96.0 Above high normal [facility] ([facility] [facility] Mean Corpuscular Hemoglobin 31.5 pg 27.0-33.0 Norm al (applies to non-numeric results) [facility] ([facility] Mean Corpuscular HGB Conc 30.9 g/dL 32.0-36.5 Below low normal [facility] ([facility] Red Cell Distribution Width 14.6 % 11.5-14.5 Above high normal [facility] ([facility] Neutrophils % 68.3 % 36.0-66.0 Above high normal [facility] NT ([facility] Platelet Count, Automated 123 10 150-450 Below low normal [facility] ([facility] Lymph % 15.6 % 24.0-44.0 Below low normal [facility] ( [facility] Erath % 12.7 % 2.0-8.0 Above high normal [facility] ([facility] Eos % 2.2 % 0.0-3.0 Normal (applies to non-numeric resul ts) [facility] ([facility] Baso % 0.7 % 0.0-1.0 Normal (applies to non-numeric resul ts) [facility] ([facility] Immature Granulocyte % 0.5 % 0-3.0 Normal (applies to non-n umeric results) [facility] ([facility] Nucleated Red Blood Cell % 0.0 % 0-0 Normal (applies to n on-numeric results) [facility] ([facility] Neutrophils # 2.9 10 1.5-8.5 Normal (applies to non-numeric re sults) [facility] ([facility] [place] # 0.5 10 0.0-0.8 Normal (applies to non-numeric resul ts) [facility] ([facility] Lymph # 0.7 10 1.5-5.0 Below low normal [facility] ( [facility] Eos # 0.1 10 0.0-0.5 Normal (applies to non-numeric resul ts) [facility] ([facility] Baso # 0.0 10 0.0-0.2 Normal (applies to non-numeric resul ts) [facility] ([facility] ID Date Data Source [id number] 06/03/2020 03:35:00 PM EDT [facility] ([facility]) Name Value Range Interpretation Code Description Data Tere rce(s) Supporting Document(s) Calcium [Mass/volume] in Serum or Plasma 9.8 [facility] ([facility]) Sodium 139 [facility] ([facility]) Carbon dioxide, total [Moles/volume] in Serum or Plasma 26 [facility] ([facility]) Chloride [Moles/volume] in Serum or Plasma 99 [facility] ([facility]) Glucose 113 70-99 [facility] ([facility] Potassium [Moles/volume] in Serum or Plasma 3.5 [facility] ([facility]) Creatinine 5.21 0.80-1.30 [facility] ([facility]) Blood Urea Nitrogen 79 7-24 [facility] (Ca [facility]diology [facility]) Glomerular filtration rate/1.73 sq M.pre dicted [Volume Rate/Area] in Serum or Plasma by Creatinine-based formula (MDRD) 11 [facility] ([facility]) ID Date Data Source [id number] 06/03/2020 03:35:00 PM EDT [facility] ([facility]) Name Value Range Interpretation Code Description Data Tere rce(s) Supporting Document(s) Magnesium Level 1.8 [facility] ([facility]) ID Date Data Source [id number] 06/03/2020 03:35:00 PM EDT [facility] ([facility]) Name Value Range Interpretation Code Description Data Tere rce(s) Supporting Document(s) White Blood Count 5.1 4.1-11.0 [facility] ([facility]) Platelets 158 150-450 [facility] ([facility]) Red Blood Count 3.21 4.60-6.10 [facility] ([facility]io [facility]) Hemoglobin 10.5 13.5-18.0 [facility] ([facility]) Hematocrit 30.3 41.0-53.0 [facility] ([facility]) ID Date Data Source [id number] 06/03/2020 11:18:07 AM EDT Laboratory Al liance [...] - CORE MCHC 34.5 g/dL (32.0-36.0) [facility] RDW 14.8 % (10.5-14.5) H [facility] - CORE PLT 158 10*3/uL (150-450) [facility] - CORE MPV 9.5 fL (7.1-10.7) [facility] - CORE NEUT % 69.9 % (35.0-75.0) [facility] - CORE LYMPH % 16.4 % (16.0-52.0) [facility] - CORE MONO % 9.8 % (0.0-8.0) H [facility] [place] - CORE EOS % 2.7 % (0.0-5.0) [facility] - CORE BASO % 1.2 % (0.0-4.0) [facility] - CORE NEUT # 3.6 10*3/uL (1.8-7.7) [facility] - CORE LYMPH # 0.8 10*3/uL (1.2-4.8) L [facility] - CORE MONO # 0.5 10*3/uL (0.0-0.8) [facility] [facility] Eosinophils [#/volume] in Blood by Automated count 0.1 10*3/uL (0.0-0 .5) [facility] [place] - CORE BASO # 0.1 10*3/uL (0.0-0.2) [facility] - [facility] ID Date Data Source [id number] 06/03/2020 12:38:05 PM EDT [facility] - [facility] Name Value Range Interpretation Code Description Data Tere rce(s) Supporting Document(s) MAGNESIUM 1.8 mg/dL (1.7-2.4) [facility] - CORE ID Date Data Source [id number] 06/03/2020 03:29:31 PM EDT [facility] [facility] Name Value Range Interpretation Code Description Data Tere rce(s) Supporting Document(s) SODIUM 139 mmol/L (136-145) [facility] - CORE POTASSIUM 3.5 mmol/L (3.6-5.2) L [facility] [place] - CORE CHLORIDE 99 mmol/L (100-108) L [facility] - CORE CO2 26 mmol/L (22-31) [facility] - CORE ANION GAP 14 mmol/L (7-16) [facility] [place] - CORE UREA NITROGEN 79 mg/dL (7-24) Laboratory [facility] [place] - CORE RESULT VERIFIED BY REPEAT TESTING.RESULT (S) CALLED TO AND READ BACK BYRIS AT [phone] ON [id number] AT 1527 [place] [id number] CREATININE 5.21 mg/dL (0.80-1.30) Laboratory [facility] of [place] - CORE RESULT VERIFIED BY REPEAT TESTING.RESULT (S) CALLED TO AND READ BACK BYRIS AT [id number] ON [id number] AT 1527 BY [id number] BUN/CREAT RATIO 15.2 RATIO (10.0-20.0) [facility] [place] - CORE GLUCOSE 113 mg/dL (70-99) H [facility] - CORE CALCIUM 9.8 mg/dL (8.4-10.2) [facility] [place] - CORE GFR 11 ml/min/1.73m2 (>59) L [facility] [place] - CORE GFR ([facility]) 13 ml/min/1.73m2 (>59) L [facility] [place] - CORE GFR INTERPRETATION [facility] - CORE --NORMAL KIDNEY FUNCTION OR MILD DISEASE - GFR >OR= 60CHRONIC KIDNEY DISEASE - GFR 15 - 59RENAL FAILURE - GFR <15 Est. GFR calculation based on the MDRDstudy equation, which assumes a steadystate for creatinine. Est. GFR should notbe used for medication dosing. ID Date Data Source [id number] 05/31/2020 12:00:00 AM EDT [facility] Name Value Range Interpretation Code Description Data Tere rce(s) Supporting Document(s) SARS coronavirus 2 Ag Negative [facility] This lab was ordered by [facility] and reported by [facility]. ID Date Data Source [id number] 05/30/2020 10:26:48 AM EDT Laboratory [facility] [employer] - CORE Name Value Range Interpretation Code [...] - CORE MPV 9.4 fL (7.1-10.7) [facility] - CORE NEUT % 70.1 % (35.0-75.0) [facility] - CORE LYMPH % 16.7 % (16.0-52.0) [facility] - CORE MONO % 10.2 % (0.0-8.0) H [facility] - CORE EOS % 2.2 % (0.0-5.0) [facility] - CORE BASO % 0.8 % (0.0-4.0) [facility] - CORE NEUT # 3.7 10*3/uL (1.8-7.7) [facility] - CORE LYMPH # 0.9 10*3/uL (1.2-4.8) L [facility] - CORE MONO # 0.5 10*3/uL (0.0-0.8) [facility] - CORE Eosinophils [#/volume] in Blood by Automated count 0.1 10*3/uL (0.0-0 .5) [facility] - CORE BASO # 0.0 10*3/uL (0.0-0.2) Laboratory [facility] [employer] - CORE ID Date Data Source [id number] 05/30/2020 11:32:55 AM EDT Laboratory [facility] [employer] - CORE Name Value Range Interpretation Code Description Data Tere rce(s) Supporting Document(s) SODIUM 141 mmol/L (136-145) Laboratory [facility] [employer] - CORE POTASSIUM 3.6 mmol/L (3.6-5.2) Laboratory [facility] [employer] - CORE CHLORIDE 99 mmol/L (100-108) L Laboratory [facility] [employer] - CORE CO2 33 mmol/L (22-31) H Laboratory [facility] [employer] - CORE ANION GAP 9 mmol/L (7-16) Laboratory [facility] [employer] - CORE UREA NITROGEN 64 mg/dL (7-24) H Laboratory [facility] [employer] - CORE CREATININE 5.02 mg/dL (0.80-1.30) HH [facility] [employer] - CORE RESULT VERIFIED BY REPEAT TESTING.CONSIS TENT WITH PREVIOUS RESULTS BUN/CREAT RATIO 12.7 RATIO (10.0-20.0) Laboratory [facility] [employer] CORE GLUCOSE 131 mg/dL (70-99) H Laboratory [facility] [employer] - CORE CALCIUM 9.9 mg/dL (8.4-10.2) Laboratory [facility] [employer] CORE GFR 11 ml/min/1.73m2 (>59) L [facility] [employer] CORE GFR ( AMER) 14 ml/min/1.73m2 (>59) L Labo ratory [facility] [employer] CORE GFR INTERPRETATION [facility] [employer] CORE --NORMAL KIDNEY FUNCTION OR MILD DISEASE - GFR >OR= 60CHRONIC KIDNEY DISEASE - GFR 15 - 59RENAL FAILURE - GFR <15 Est. GFR calculation based on the MDRDstudy equation, which assumes a steadystate for creatinine. Est. GFR should notbe used for medication dosing. ID Date Data Source [id number] 05/30/2020 11:32:55 AM EDT [facility] Name Value Range Interpretation Code Description Data Tere rce(s) Supporting Document(s) MAGNESIUM 1.8 mg/dL (1.7-2.4) [facility] ID Date Data Source [id number] 05/27/2020 10:06:00 AM EDT [facility] Name Value Range Interpretation Code Description Data Tere rce(s) Supporting Document(s) SARS-CoV-2 RNA Resp Ql MARI+probe Negative [facility] This lab was ordered by [facility] and reported by [facility]. ID Date Data Source [id number] 05/27/2020 10:04:29 AM EDT [facility] [place] [...] [facility] - CORE PLT 118 10*3/uL (150-450) L [facility] - CORE MPV 9.3 fL (7.1-10.7) Laboratory [facility] - CORE NEUT % 77.5 % (35.0-75.0) H [facility] - CORE LYMPH % 12.4 % (16.0-52.0) L [facility] - CORE MONO % 7.4 % (0.0-8.0) [facility] - CORE EOS % 2.0 % (0.0-5.0) [facility] - CORE BASO % 0.7 % (0.0-4.0) Laboratory [facility] of Y - CORE NEUT # 4.0 10*3/uL (1.8-7.7) [facility] - CORE LYMPH # 0.6 10*3/uL (1.2-4.8) L [facility] - CORE MONO # 0.4 10*3/uL (0.0-0.8) [facility] - CORE Eosinophils [#/volume] in Blood by Automated count 0.1 10*3/uL (0.0-0 .5) Laboratory [facility] of [facility] - CORE BASO # 0.0 10*3/uL (0.0-0.2) [facility] - C[facility] ID Date Data Source [id number] 05/27/2020 10:55:39 AM EDT [facility] Name Value Range Interpretation Code Description Data Tere rce(s) Supporting Document(s) SODIUM 136 mmol/L (136-145) [facility] - CORE POTASSIUM 4.2 mmol/L (3.6-5.2) Laboratory [facility] of [place] - CORE CHLORIDE 100 mmol/L (100-108) Laboratory [facility] - CORE CO2 31 mmol/L (22-31) Laboratory [facility] of [place] - CORE ANION GAP 5 mmol/L (7-16) L Laboratory [facility] - CORE UREA NITROGEN 63 mg/dL (7-24) H [facility] - CORE CREATININE 5.07 mg/dL (0.80-1.30) HH [facility] - CORE CONSISTENT WITH PREVIOUS RESULTS BUN/CREAT RATIO 12.4 RATIO (10.0-20.0) Laboratory [facility] [place] - CORE GLUCOSE 127 mg/dL (70-99) H Laboratory [facility] of [facility] - CORE CALCIUM 9.3 mg/dL (8.4-10.2) [facility] GFR 11 ml/min/1.73m2 (>59) L Laboratory Al [facility] of [employer] GFR ( AMER) 14 ml/min/1.73m2 (>59) L Labo ratory [facility] GFR INTERPRETATION Laboratory [facility] [employer] [facility] --NORMAL KIDNEY FUNCTION OR MILD DISEASE - GFR >OR= 60CHRONIC KIDNEY DISEASE - GFR 15 - 59RENAL FAILURE - GFR <15 Est. GFR calculation based on the MDRDstudy equation, which assumes a steadystate for creatinine. Est. GFR should notbe used for medication dosing. ID Date Data Source [id number] 05/27/2020 10:55:39 AM EDT Laboratory [facility] [employer] Name Value Range Interpretation Code Description Data Tere rce(s) Supporting Document(s) MAGNESIUM 1.8 mg/dL (1.7-2.4) Laboratory [facility] ID Date Data Source [id number] 05/25/2020 07:54:24 AM EST Laboratory [facility] [employer] SPECIMEN DESCRIPTION CATHETERIZED URINECULTURE RESULTS NO GROWTHREPORT STATUS FINAL 05/26/2020 Name Value Range Interpretation Code Description Data Tere rce(s) Supporting Document(s) COLOR [facility] [employer] PERFORMED AT [address] [place] [address] [address] [address] APPEARANCE Laboratory [facility] SPEC GRAV URINE 1.014 (1.003-1.030) Laboratory [facility] [employer] PH URINE 5.5 (5.0-7.5) Laboratory [facility] [employer] LEUK ESTERASE (NEG) Laboratory [facility] [employer] CORE NITRITE URINE (NEG) Laboratory [facility] [employer] PROTEIN URINE 3+ (NEG) A Laboratory [facility] [employer] GLUCOSE URINE (NEG) A [facility] [place] - CORE KETONE URINE (NEG) [facility] - CORE UROBILINOGEN 0.2 mg/dL (0-1.0) [facility] - CORE BILIRUBIN URINE (NEG) [facility] - CORE BLOOD/HGB URINE 1+ (NEG) A [facility] - CORE ID Date Data Source [id number] 05/25/2020 09:04:34 AM EST [facility] - CORE SPECIMEN DESCRIPTION CATHETERIZED URINECULTURE RESULTS NO GROWTHREPORT STATUS FINAL 05/26/2020 Name Value Range Interpretation Code Description Data Tere rce(s) Supporting Document(s) URINE WBC (0-5) Laboratory [facility] [employer] - CORE URINE RBC (0-2) Laboratory [facility] [place] - CORE AMORPHOUS 1+ [HPF] Laboratory [facility] - CORE ID Date Data Source [id number] 05/26/2020 07:32:30 AM EDT [facility] - CORE SPECIMEN DESCRIPTION CATHETERIZED URINECULTURE RESULTS NO GROWTHREPORT STATUS FINAL 05/26/2020 Name Value Range Interpretation Code Description Data Tere rce(s) Supporting Document(s) ID Date Data Source [id number] 05/23/2020 02:54:28 PM EST [facility] Name Value Range Interpretation Code Description Data Tere rce(s) Supporting Document(s) Discharge Summary [facility] MOXLEn6nBjXCBeXp12/MNPbpOMUkn2EvLFuxGEi7BFehHZFqI5KqNDW5sL2hSMZ5OIxLBoUoHlOqZuFp [facility] IrAztHFfFvDBLsWotWTvHkFYqoRbmcsIAvHV2UbOM0VSRcU09iHQIvXBIoE5TdEOV5JBT+Jw6WZBWigQ NoPB0OPlxX1H8qz0o8KT6e7F5JeBAqXSbnXzy/IQUqj34LG48bsFgAAfUc3ZwTx8iiv29r/5v+1OpCrT SE1DwHcnJ2Ahwy5SPHM1n6oQbOOgA/+26okE7uMDM/ t/b1hBJ6eJh//fCA81m0gyp/xupFB9TVVXD1AZeqR73+7KRP6P8nlMhptRhMCf0JAApgM1OMiRU+/vqF xHbctJetVasCRhNnipD9KTFdWUcpqY4CGIa0crE7pTMYqk5VWm6xgcAqHofHWHvQiOLGjmLfKcYFD10F SCKzPDR9DqUN9vtNkNpjwrAsewJSgrJXmNrDZ58k7P IH5t84iKhQM7s7HI4gU2Hj8kzDKtjHhUzLlmHtJr+rlY98334w3XQJZ8p2jZprm/0TKx7nS1u1sunsqm Da5ub5xjv/q85sQghomkLnABFz1fq4Ffk01SpUUthc6pFCkRMnzzFuMcwey+9a5paKCcHpGODcBfD1cp MLzmc/0ixkFGtbmGr5TtihwxhPUKipxVn9E6pe7Wcq tbpRptCVWs+TP+ghB2UF9hxG8LhdrNZcaVGZ2damnGsclwGMMwIs0da7+4277B2LtEd1VpBn+2HDk/fH 16nxqBfDJHfNMogXSIcPeGBlRWhW3wnfePY1zy8wSmh9N5O7OhjVcD7TJO+IN/1Zov2KK+qh2GRDqX/R XRhndXdWv5q+qYVFN0uryLbsKrIBRUWme0eW+tuBE2 1nQorFx+rIq5sh8IOJ1rRR4cu7t+j4qSkc08P6Vr7Ci1xEYEE8BGlBtQSOIYnGo3UUy/ZDjXZKE+kVeX BGB+rLEBFzY5Oih2d3TUQ3XR2OQwVvjN30amMxbdVfaUhee6UrruvW2E5N10ijYXNjoaZBIRkY2t4uki 3pySby/5yI1N75N90ljj78LKXg5/a18dhR9bKa3n+7 [file] GqWWMqqbS7Sx+innovation analyst+TgsXYwn6DR7RM+W0BXJJ27r6J [file] 7A/LoGjus8nxFx4XJOYAARo8nG6nLoSqy8GTa4RApP2l4u31lvLc+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+nH7ZiIm2PpTnrijh/sCal5n+ [file] ICAgICAgICAgICAgICAgICAgICAgICAgICAgICAgIC AgICAgICAgICAgICAgICAgICANCiAgICAgICAgICAgICAgICAgICAgICAgICAgICAgICAgICAgICAgIC AgICAgICAgICAgICAgICAgICAgICAgICAgICAgICAgICAgICAgICAgICAgICAgICAgICAgICAgICAgIC ANCiAgICAgICAgICAgICAgICAgICAgICAgICAgICAg ICAgICAgICAgICAgICAgICAgICAgICAgICAgICAgICAgICAgICAgICAgICAgICAgICAgICAgICAgICAg ICAgICAgICAgICANCiAgICAgICAgICAgICAgICAgICAgICAgICAgICAgICAgICAgICAgICAgICAgICAg ICAgICAgICAgICAgICAgICAgICAgICAgICAgICAgIC AgICAgICAgICAgICAgICAgICAgICANCiAgICAgICAgICAgICAgICAgICAgICAgICAgICAgICAgICAgIC AgICAgICAgICAgICAgICAgICAgICAgICAgICAgICAgICAgICAgICAgICAgICAgICAgICAgICAgICAgIC AgICANCiAgICAgICAgICAgICAgICAgICAgICAgICAg ICAgICAgICAgICAgICAgICAgICAgICAgICAgICAgICAgICAgICAgICAgICAgICAgICAgICAgICAgICAg ICAgICAgICAgICAgICANCiAgICAgICAgICAgICAgICAgICAgICAgICAgICAgICAgICAgICAgICAgICAg ICAgICAgICAgICAgICAgICAgICAgICAgICAgICAgIC AgICAgICAgICAgICAgICAgICAgICAgICANCiAgICAgICAgICAgICAgICAgICAgICAgICAgICAgICAgIC AgICAgICAgICAgICAgICAgICAgICAgICAgICAgICAgICAgICAgICAgICAgICAgICAgICAgICAgICAgIC AgICAgICANCiAgICAgICAgICAgICAgICAgICAgICAg ICAgICAgICAgICAgICAgICAgICAgICAgICAgICAgICAgICAgICAgICAgICAgICAgICAgICAgICAgICAg ICAgICAgICAgICAgICAgICANCiAgICAgICAgICAgICAgICAgICAgICAgICAgICAgICAgICAgICAgICAg ICAgICAgICAgICAgICAgICAgICAgICAgICAgICAgIC AgICAgICAgICAgICAgICAgICAgICAgICAgICANCjw/rEKfG5wknQIrktV0T0psQb4UXl5LZD6vv9WcAI VtITweyhTdDumOOpNyTJQsMonPGha7DTpoIG1AhVQkL6OsI2RxHAjfJX4EEPIeBFLyoZOtZQApXYFcZk A6PFUlXIdlNV0AlYEqRHfgTTSkJNRuUiJuUNKdKUWt OMLvOKPnNVADHEHfNJEmVkCcNKSiAEWsXPqpKPURFNM2IILwQiRxYPDxCXRlJzDyYXGSUD0INkQrK7Ap zV03ATFtWHm+Uu2NXQ5if9CeBLe4AXZpPD1wzd0JIPjOFiUtL8HyztG4LJOzXHEuNb3MWLAlELHctAJ0 ZXEcTMGSIdYiO5FreF49JVPOWh9+DQplbmRvYmoNCj FoMRMrb3OmBPw8KO0QAXFcSIw0hUEbDOjfP1ynkqjaABD0kZ2wydryMzeaS1OmWFhcODMUFcMjmnOnDO ATBJA0TDKyYUGtRnAdKBNcQGsxFZJJGEpUEiGuE9Boc7MuPsP4WHJaXoWpZYyyECJaEwD5UB29lTzpQB 3PJEMnRHGxJJ30RDN6ISAlEv1YOk5YOoWjFT0wfg9D OPQwBEFfThvWPsf3XKxpCL6YoCCnB2ZazGWsc5lMQoTqN5CHWTZ2RMKyFx4TJHRrCwEbPDRzSLudBY6w YITuDSVOeNoaqgZ8HL5KEN9tyxBlCU5NEmCxVv7oWv1MAuTyD9MzQ4XmXMSaVHBIVLjcMS1UIYfkCV4w EV2Gz8TBsVNwkP4ddm9WHQVvUHGkOhqmpm7AAxpwY8 G6xIpnRLPsAKqwKKYNINfzDP7YOJKcMXD7EOX7YDAzBTPKZgVtN19uGU6BH8Mgg48wBbT8CXZyPgRbHU bqIB79sSxrseQjlMOzuVnwDV0CBo1+KLgcsbQiTduXPupaDIVDTaQtLKAQCrMdNJKuQHLsSAKtYfT4Di HtWv9ZIGBiDFMcVRQwZaTfPKUnTAOaCSrnDSEtDDMo Zma6OCLyOYQdUI9XIbYeBHLiQHGkYRkiPUQbWZCqmk4QFFMgAHPtWOL9NwGyWKKlRZRsCQdjBHIrECKp QGK5TVDtSZVvVE8HRkLwVCKvMTJeMPkcSJJnGBYdsk1CEIYbQCNnBST3SXNrOREdMRJaWJhsBWFxVDH1 GqxrFUNoLBFxIC0WAyBfQGVwZSJhHfiqZBIdUDVryw 3RTBItSNIcUnK6QlBfKTYyJVWuMJizOXHgTXK6LJH1PCNvIYXtOR3SWtEoIAMsVLv3PjIfZVKzDBKlmh 8RJRQaEDPoPfG1LtKxIUWnHVXrKLklTCMmDWKpKTboAZRxBQYkXY8ZKrGpMFLlAon9OGOjXTIpIURfrx 0KMDAwMDAyODAwMiAwMDAwMCBuDQowMDAwMDMwMzIx KHLpNSBeJD6RNuAoMOQdLzY2XdqpHPLbWRAkxq9HLHGqIIKyRxf6DPFfMCNwYEZrEFnkHDOmQTBaIWP1 DZJuCBHwBN6HKiXbVZWkZfE4ExGvXPUvKPBzpf7FWJHiYKDeZiW0KuNjEHEqQFVlPLecIJJvXPW5KmG8 FWGyLAKhZT1ACzCaPEAmAzs3TpZlRCFvYHHpsd2COZ YjENGsETY7WXKiXUDmLNNaKXtwOGOcVXN8NirjVRGtTKFsTH1GGiFgKKUmBua7LeKxDLXxGZStws2SRN ThSNT9HFbjOfDuHRErVEAfNBgjBTQaTXYmMZV8CBZlRRFgQU9TAvZrCQRwVOJaIVYfBATmYMIwtg3PGO BuKXT3KzC7XfTpUQYtMUCnTHjaEEBuRQJpItogPSQj XZDgID9ZDnTnJMDvGTO9ZzDgVDTyHIJsfo0LLPEsCFW3KnIkImVzVAUhHJRdVHcuLVOsSCHbKlDyUTMh JKIyXK7SHzZbMESuJLP7SvWhTONtMVPacn2NAVIlJVR0FRn7IJTjUMLuJQXhSNhdSXKaSWV4HEf3SKWa QDZxVL6KHqMbIOEtBBAvZNVwRTLhPIYbww5GTIEfNE V6IOB0FBAlVCMmZXAiTGvlZDLmRDMdDHW5HUFdSJKvXO1DJbOpXZOuZSA0SshyCHJpMHBydw0XQJHaUS V4MPllNFFeICCmZDRiUKqsWMNrFICzBVF9SSIeIOZyWC0RBkYvJCAfZWXyHRQuZRRdKGBrea5BIDFpIL M1XxH4HTVpFTQoALTeLOvnKPYpBTFxRgMvOVGrWBPx GG9VQyBvHTKmYNT7SZtvKGNkGJYuvy7PEKPoAXO5WMGmFzSuUJHjRSXhMYlvMXLvKIZ8Qzn3AJOtLXMw FV5LYcTxXYHcXTG1BARoCEVnRMMgos7DjUZekQmzcw2URGdHAu5DmUqlJKJeKXljVp3rlOR0WYGpZUAS Du3EocGxCHOmEIVWAWjzMJScHQDeQCJ0GgIaQEKzW5 QfYUKtAMfeUdUrFhMvCwU5CNUfFiL5TALcIWBiXGBdCUVlW2BiUXGxBOTpFRLvBZDrTrc6RfN+IF0gDQ o+Du4Nt2YojoC4iuAbTZh6PUq5ZH7HZNWRJ0MHFj== ID Date Data Source [id number] 05/22/2020 11:36:46 AM [facility] Value Range Interpretation Code Description Data Tere rce(s) Supporting Document(s) Glucose [Mass/volume] in Capillary blood by Glucometer 163 mg/dL 70- 140 [facility] ID Date Data Source [id number] 05/22/2020 07:40:28 AM [facility] Range Interpretation Code Description Data Tere rce(s) Supporting Document(s) Glucose [Mass/volume] in Capillary blood by Glucometer 125 mg/dL 70- 140 [facility] ID Date Data Source [id number] 05/21/2020 09:03:05 PM [facility] Range Interpretation Code Description Data Tere rce(s) Supporting Document(s) Glucose [Mass/volume] in Capillary blood by Glucometer 164 mg/dL 70- 140 [facility] ID Date Data Source [id number] 05/21/2020 04:32:56 PM [facility] Value Range Interpretation Code Description Data Tere rce(s) Supporting Document(s) Glucose [Mass/volume] in Capillary blood by Glucometer 154 mg/dL 70- 140 [facility] ID Date Data Source [id number] 05/21/2020 02:46:36 PM [facility] Value Range Interpretation Code Description Data Tere rce(s) Supporting Document(s) Specimen source [Identifier] of Unspecified specimen [facility] SARS-CoV-2 RNA 2019 nCoV Real-Time RT-PCR: NOT DETECTED [facility] Assay Performed [facility] Patients first test for condition [facility] 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[facility] Patient has symptoms related to condition [facility] When did you start to experience these symptoms [Date and time] [Phen X] [facility] Patient was hospitalized because of this condition [facility] patient was admitted to ICU for condition [facility] Patient resides in a congregate care setting [facility] status [facility] ID Date Data Source [id number] 05/21/2020 02:46:06 PM EST [facility] Service Cmnt XXX-Imp : NoneRespiratory P CR Panel : PCR ResultsMicroorganism XXX Cult : See Labs Tab for 2019 nCoV RT-PCR resultsHAdV DNA QI MARI+non-probe : Not DetectedHCoV [id number] Nph QI MARI+non-probe : Not DetectedHCoV [id number] Nph QI MARI+non-probe : Not [id number] RNA Nph QI MARI+non-probe : Not [id number] RNA Upper resp QI MARI+probe : Not [...] DNA Nph Q MARI+non-probe : Not DetectedB [id number] DNA Nph MARI+non-probe : Not Detected Name Value Range Interpretation Code Description Data Tere rce(s) Supporting Document(s) ID Date Data Source [id number] 05/21/2020 12:40:00 PM EST [facility] Name Value Range Interpretation Code Description Data Tere rce(s) Supporting Document(s) SARS-CoV-2 RNA 2019 nCoV Real-Time RT-PCR: NOT DETECTED [facility] This lab was ordered by [facility] and reported by [facility] ID Date Data Source [id number] 05/21/2020 11:45:22 AM [facility] Name Value Range Interpretation Code Description Data Tere rce(s) Supporting Document(s) Glucose [Mass/volume] in Capillary blood by Glucometer 103 mg/dL 70- 140 [facility] ID Date Data Source [id number] 05/21/2020 07:41:03 AM [facility] Name Value Range Interpretation Code Description Data Tere rce(s) Supporting Document(s) Glucose [Mass/volume] in Capillary blood by Glucometer 142 mg/dL 70- 140 H [facility] ID Date Data Source [id number] 05/21/2020 05:22:20 AM [facility] Value Range Interpretation Code Description Data Tere rce(s) Supporting Document(s) Bicarbonate [Moles/volume] in Serum 23 mmol/L 22-29 [facility] Chloride [Moles/volume] in Serum or Plasma 95 mmol/L 98-107 L [facility] Creatinine [Mass/volume] in Serum or Plasma 4.85 mg/dL 0.70-1.20 H [facility] Glucose [Mass/volume] in Serum or Plasma 117 mg/dL 70-140 [facility] Potassium [Moles/volume] in Serum or Plasma 4.8 mmol/L 3.4-5.1 [facility] Sodium [Moles/volume] in Serum or Plasma 131 mmol/L 136-145 L [facility] Urea nitrogen [Mass/volume] in Serum or Plasma 48 mg/dL 8-23 H [facility] Anion gap 3 in Serum or Plasma 13 mmol/L 8-15 [facility] Osmolality of Serum or Plasma by calculation 286 mosm/kg 275-300 [facility] Creatinine/Urea nitrogen [Mass Ratio] in Serum or Plasma 10 [facility] Calcium [Mass/volume] in Serum or Plasma 9.2 mg/dL 8.8-10.2 [facility] Glomerular filtration rate/1.73 sq M pre dicted among non-blacks [Volume Rate/Area] in Serum or Plasma by Creatinine-based formula (MDRD) 11 mL/min/1.73m2 >60 L [facility] Glomerular filtration rate/1.73 sq M pre dicted among blacks [Volume Rate/Area] in Serum or Plasma by Creatinine-based formula (MDRD) 12 mL/min/1.73m2 >60 L [facility] ID Date Data Source [id number] 05/21/2020 05:31:36 AM [facility] Name Value Range Interpretation Code Description Data Tere rce(s) Supporting Document(s) Leukocytes [#/volume] in Blood by Automated count 6.2 10*3/uL 4-10 [facility] Erythrocytes [#/volume] in Blood by Automated count 3.21 10*6/uL 4.6- 6.1 L [facility] Hemoglobin [Mass/volume] in Blood 10.1 g/dL 13.5-18 L [facility] Hematocrit [Volume Fraction] of Blood by Automated count 29.9 % 4 1-53 L [facility] Erythrocyte mean corpuscular volume [Entitic volume] by Auto mated count 93.2 fL 80-96 [facility] Erythrocyte mean corpuscular hemoglobin [Entitic mass] by Automated count 31.4 pg 27-33 [facility] Erythrocyte mean corpuscular hemoglobin concentration [Mass/volume] by Automated count 33.7 g/[facility].0-[facility] width [Ratio] by Automated count 14.9 % 11.5-14.5 H [facility] Platelets [#/volume] in Blood by Automated count 142 10*3/uL 150-400 L [facility] Differential cell count method - Blood [facility] Neutrophils/100 leukocytes in Blood by Automated count 74 % [facility] Lymphocytes/100 leukocytes in Blood by Automated count 13 % [facility] Monocytes/100 leukocytes in Blood by Automated count 9 % [facility] Eosinophils/100 leukocytes in Blood by Automated count 3 % [facility] Basophils/100 leukocytes in Blood by Automated count 1 % [facility] Neutrophils [#/volume] in Blood by Automated count 4.59 10*3/uL 1.8-7 .0 [facility] Lymphocytes [#/volume] in Blood by Automated count 0.77 10*3/uL 1.2-4 .0 L [facility] Monocytes [#/volume] in Blood by Automated count 0.58 10*3/uL 0-0.8 [facility] Eosinophils [#/volume] in Blood by Automated count 0.18 10*3/uL 0-0.5 [facility] Basophils [#/volume] in Blood by Automated count 0.04 10*3/uL 0-0.2 [facility] Nucleated erythrocytes/100 leukocytes [Ratio] in Blood by Automated count 0 /100{WBCs} 0-0 [facility] ID Date Data Source [id number] 05/20/2020 09:37:51 PM [facility] Name Value Range Interpretation Code Description Data Tere rce(s) Supporting Document(s) Glucose [Mass/volume] in Capillary blood by Glucometer 136 mg/dL 70- 140 [facility] ID Date Data Source [id number] 05/20/2020 04:33:54 PM [facility] Name Value Range Interpretation Code Description Data Tere rce(s) Supporting Document(s) Glucose [Mass/volume] in Capillary blood by Glucometer 130 mg/dL 70- 140 [facility] ID Date Data Source [id number] 05/20/2020 02:38:44 PM [facility] Name Value Range Interpretation Code Description Data Tere rce(s) Supporting Document(s) [facility] [id number] [facility] [file] AgICAgICAgICAgICAgICAgICAgICAgICAgICAgICAgICAgICAgICAgICAgICAgICAgICAgICAgICAgIC AgICAgICAgICANCiAgICAgICAgICAgICAgICAgICAg ICAgICAgICAgICAgICAgICAgICAgICAgICAgICAgICAgICAgICAgICAgICAgICAgICAgICAgICAgICAg ICAgICAgICAgICAgICAgICAgICANCiAgICAgICAgICAgICAgICAgICAgICAgICAgICAgICAgICAgICAg ICAgICAgICAgICAgICAgICAgICAgICAgICAgICAgIC AgICAgICAgICAgICAgICAgICAgICAgICAgICAgICANCiAgICAgICAgICAgICAgICAgICAgICAgICAgIC AgICAgICAgICAgICAgICAgICAgICAgICAgICAgICAgICAgICAgICAgICAgICAgICAgICAgICAgICAgIC AgICAgICAgICAgICANCiAgICAgICAgICAgICAgICAg ICAgICAgICAgICAgICAgICAgICAgICAgICAgICAgICAgICAgICAgICAgICAgICAgICAgICAgICAgICAg ICAgICAgICAgICAgICAgICAgICAgICANCiAgICAgICAgICAgICAgICAgICAgICAgICAgICAgICAgICAg ICAgICAgICAgICAgICAgICAgICAgICAgICAgICAgIC AgICAgICAgICAgICAgICAgICAgICAgICAgICAgICAgICANCiAgICAgICAgICAgICAgICAgICAgICAgIC AgICAgICAgICAgICAgICAgICAgICAgICAgICAgICAgICAgICAgICAgICAgICAgICAgICAgICAgICAgIC AgICAgICAgICAgICAgICANCiAgICAgICAgICAgICAg ICAgICAgICAgICAgICAgICAgICAgICAgICAgICAgICAgICAgICAgICAgICAgICAgICAgICAgICAgICAg ICAgICAgICAgICAgICAgICAgICAgICAgICANCiAgICAgICAgICAgICAgICAgICAgICAgICAgICAgICAg ICAgICAgICAgICAgICAgICAgICAgICAgICAgICAgIC AgICAgICAgICAgICAgICAgICAgICAgICAgICAgICAgICAgICANCiAgICAgICAgICAgICAgICAgICAgIC AgICAgICAgICAgICAgICAgICAgICAgICAgICAgICAgICAgICAgICAgICAgICAgICAgICAgICAgICAgIC AgICAgICAgICAgICAgICAgICANCjw/iAJgY5qysIKo ryF2H1fwDu9MHy1TOM6wb6PtVUEmJIszjhFjQknUXoEsTYWdJwuZNva9PSfzVX6AmIRcK5GjF4SwGXef CB9DREJdWXMozTTgHVNdFDQmHcP0BJViQZslCC8ZhDUkGDwtTWRvDCZxDsAnMLPcHPObHVAvODEzIOKM SFTkKOPqQqVeKRTwURBcQWnkBMYBMG0TFsKaC1GstL 66EHmATv7+PVpuciVmYbdAZdZfQEEca5VqDUb1PQ5TQGDoNigvw0BcZoGhWMKUHShhID8LHBG6YATnUX AxWr4XPQBsY641wlUvJN3TOo7UUwBpUX8jpm8RMtCjFUXuVokGKud4XUsvLN9ZiZTdLBzXw64wmSn9qg LcaZXFkSNfzdS3HQdsNASgzJ5jRymkYH3bDJDzWg56 UkMoRsVqWPv4YRKsWG7yFHunWS6VSRO0FMuxKSDaDPMmW3gIChHkJWAxYhZodKxrDW9GTiBxM6VjjaLn dCAzMSAwIFINCj4+DFuxtgFcTolFJoBjOHEzd3GcMPv1UD7XUVYlHZkeSY4PJXZwfY3eKZkhVB8IUgYm FSJoZFQLSbJmN29grOMfZUo3K4OmElPfZNDnYacvEZ MgPDwvTmFtZXMgWyBdDQogID4+ID4+PBuvPJ1PSMjkdaOdMLRuKi4GMUQgJHVqBE8sMHDcZYRdQ5O2nR sjQYJGJiDuY0fntfbnGW5vCFQdF252eDhiqhIoCRPxTPUoYl9LEJVzEKN4KRMyrYZmMpOoKEFUQKglWK 2FpFXjZXZ4zB6cTIdaRTHzKARkS1sNBrJydJxdNV61 bGwgbnVsbCBdDQo+Ie0PDJ9cx5VfYZq0sfKtYVpgIKQ3NRiiRZXdIUIiZTKhPQB4FKA6SVEFNgWkEXNv ZQQyWBxmAQMtBMMnyh2EFYYkAGQ7FNR1ABClVKYjXBNzCPinRMLtTDWyWrFtVLRbLQRpKT1VUzNkCYQw RZXlIPoiIYFnZXGsen6IUKOeMXYdOETaFWKtDZUtIG XeBXymRIFbOKP4JxO5YULkOHCsOQ9SGyEbJTKfKThbHKXrAPZhLANhzj1NUHZcUEWcTKZ0MGPzENSvYS GoJTnrSFIfLDZdSXf3SOEcIHJfCH3NOhWpAGIlARB7YVJwOZOgQNOiat3THJVpQAGeHiGhEFKsDLVtVW WuNTfwBCVoDCT0CWX4LJBhZSVrBN0NJjMsEJWlGkZu RPjpOCArQUIrip6CSITxQBSmVUY4JTFjBCWjMOXoEQbjVBWmTBIwZSSiVMJvYPSsXA4ONoVsWIKwMmTv GSlxJEAvQBAszx6VXWYiYWWvPmVwUsNjYMAtIDQgHKugJQUtMEO7MiGqXOOwUJHiXE2TCwCaTDBtEhi1 CTLaIGDgHFZzgk4RFAHtSHHuSjx2UBTyVVSlIUQhDU jnKHYkBNP0YBpuLOBxJVDnYE9MDrQlLZTpUhx6RtDqWAUrEZQtnq4WXPOdAXQrXQGbQJLjPYLkMUAvVB zoONIbWZK2PtYsGPYfFVEcTU8PYvEqYMTeQKT6EYqtFHWxWCZuin1CMUDpQUU5OUMnBOCiVSHeLHWmJS vqNXJcUKGwTkT0PMSzZXKtEM3DDjJjEPCoUDF7EqJb DDYcLEMwva2JMWUeTFP1WMEoVUMfQEPjMMTkAOmaSFGoEZFyVEOdOBXkBWXzIE2PJoGsMCPaEXO2ANmw HPTcZPZnzp0RLWIpREX0JcM2XMVwELNhWDYnPFaiKFVqNXFfJcT4GSHdOYWySJ3AZiCmORurCBBENaw4 TYonP5s9DFYtCP5LP5Msh9LgEiArQQWFFPjcUS7fty KyMTBjNs2EH7jKTti9FXyhFDU7XPU1LDTlMNK7A7HtUKPiRnE4FhalXWGqSi9tTUE8Q6ZhRmY9CvCsVz NyAOe0SPMyPFToNVqcNVKxJMS3AeLwFZ8WEq1UEfS9BED3dGDfSj3QUYF6OJaICmAsOR0RGJt= ID Date Data Source [id number] 05/20/2020 11:56:50 AM [facility] Name Value Range Interpretation Code Description Data Tere rce(s) Supporting Document(s) Glucose [Mass/volume] in Capillary blood by Glucometer 164 mg/dL 70- 140 H [facility] ID Date Data Source [id number] 05/20/2020 08:01:39 AM [facility] Name Value Range Interpretation Code Description Data Tere rce(s) Supporting Document(s) Glucose [Mass/volume] in Capillary blood by Glucometer 99 mg/dL 70- 140 [facility] ID Date Data Source [id number] 05/20/2020 05:52:11 AM [facility] Name Value Range Interpretation Code Description Data Tere rce(s) Supporting Document(s) Leukocytes [#/volume] in Blood by Automated count 5.1 10*3/uL 4-10 [facility] Erythrocytes [#/volume] in Blood by Automated count 3.06 10*6/uL 4.6- 6.1 L [facility] Hemoglobin [Mass/volume] in Blood 9.8 g/dL 13.5-18 L [facility] Hematocrit [Volume Fraction] of Blood by Automated count 28.6 % 4 1-53 L [facility] Erythrocyte mean corpuscular volume [Entitic volume] by Auto mated count 93.4 fL 80-96 [facility] Erythrocyte mean corpuscular hemoglobin [Entitic mass] by Automated count 32.1 pg 27-33 [facility] Erythrocyte mean corpuscular hemoglobin concentration [Mass/volume] by Automated count 34.4 g/dL 32.0-36.0 [facility]th[facility] distribution width [Ratio] by Automated count 14.6 % 11.5-14.5 H [facility] Platelets [#/volume] in Blood by Automated count 148 10*3/uL 150-400 L [facility] Differential cell count method - Blood [facility] Neutrophils/100 leukocytes in Blood by Automated count 72 % [facility] Lymphocytes/100 leukocytes in Blood by Automated count 11 % [facility] Monocytes/100 leukocytes in Blood by Automated count 12 % [facility] Eosinophils/100 leukocytes in Blood by Automated count 4 % [facility] Basophils/100 leukocytes in Blood by Automated count 1 % [facility] Neutrophils [#/volume] in Blood by Automated count 3.75 10*3/uL 1.8-7 .0 [facility] Lymphocytes [#/volume] in Blood by Automated count 0.53 10*3/uL 1.2-4 .0 L [facility] Monocytes [#/volume] in Blood by Automated count 0.59 10*3/uL 0-0.8 [facility] Eosinophils [#/volume] in Blood by Automated count 0.19 10*3/uL 0-0.5 [facility] Basophils [#/volume] in Blood by Automated count 0.03 10*3/uL 0-0.2 [facility] Nucleated erythrocytes/100 leukocytes [Ratio] in Blood by Automated count 0 /100{WBCs} 0-0 [facility] ID Date Data Source [id number] 05/20/2020 04:57:45 AM [facility] Value Range Interpretation Code Description Data Tere rce(s) Supporting Document(s) Bicarbonate [Moles/volume] in Serum 18 mmol/L 22-29 L [facility] Chloride [Moles/volume] in Serum or Plasma 98 mmol/L 98-107 [facility] Creatinine [Mass/volume] in Serum or Plasma 4.35 mg/dL 0.70-1.20 H [facility] Glucose [Mass/volume] in Serum or Plasma 132 mg/dL 70-140 [facility] Potassium [Moles/volume] in Serum or Plasma 4.7 mmol/L 3.4-5.1 [facility] Sodium [Moles/volume] in Serum or Plasma 131 mmol/L 136-145 L [facility] Urea nitrogen [Mass/volume] in Serum or Plasma 42 mg/dL 8-23 H [facility] Anion gap 3 in Serum or Plasma 15 mmol/L 8-15 [facility] Osmolality of Serum or Plasma by calculation 284 mosm/kg 275-300 [facility] Creatinine/Urea nitrogen [Mass Ratio] in Serum or Plasma 10 [facility] Calcium [Mass/volume] in Serum or Plasma 8.9 mg/dL 8.8-10.2 [facility] Glomerular filtration rate/1.73 sq M pre dicted among non-blacks [Volume Rate/Area] in Serum or Plasma by Creatinine-based formula (MDRD) 12 mL/min/1.73m2 >60 L [facility] Glomerular filtration rate/1.73 sq M pre dicted among blacks [Volume Rate/Area] in Serum or Plasma by Creatinine-based formula (MDRD) 14 mL/min/1.73m2 >60 L [facility] ID Date Data Source [id number] 05/19/2020 09:31:10 PM [facility] Value Range Interpretation Code Description Data Tere rce(s) Supporting Document(s) Glucose [Mass/volume] in Capillary blood by Glucometer 186 mg/dL 70- 140 H [facility] ID Date Data Source [id number] 05/19/2020 06:48:35 PM EST [facility] Name Value Range Interpretation Code Description Data Tere rce(s) Supporting Document(s) Leukocytes [#/volume] in Blood by Automated count 6.6 10*3/uL 4-10 [facility] Erythrocytes [#/volume] in Blood by Automated count 3.26 10*6/uL 4.6- 6.1 L [facility] Hemoglobin [Mass/volume] in Blood 10.3 g/dL 13.5-18 L [facility] Hematocrit [Volume Fraction] of Blood by Automated count 30.6 % 4 1-53 L [facility] Erythrocyte mean corpuscular volume [Entitic volume] by Auto mated count 93.7 fL 80-96 [facility] Erythrocyte mean corpuscular hemoglobin [Entitic mass] by Automated count 31.6 pg 27-33 [facility] Erythrocyte mean corpuscular hemoglobin concentration [Mass/volume] by Automated count 33.7 g/dL 32.0-36.0 [facility] E[facility]throcyte distribution width [Ratio] by Automated count 14.5 % 11.5-14.5 [facility] Platelets [#/volume] in Blood by Automated count 163 10*3/uL 150-400 [facility] Differential cell count method - Blood [facility] Neutrophils/100 leukocytes in Blood by Automated count 73 % [facility] Lymphocytes/100 leukocytes in Blood by Automated count 12 % [facility] Monocytes/100 leukocytes in Blood by Automated count 10 % [facility] Eosinophils/100 leukocytes in Blood by Automated count 4 % [facility] Basophils/100 leukocytes in Blood by Automated count 1 % [facility] Neutrophils [#/volume] in Blood by Automated count 4.92 10*3/uL 1.8-7 .0 [facility] Lymphocytes [#/volume] in Blood by Automated count 0.79 10*3/uL 1.2-4 .0 L [facility] Monocytes [#/volume] in Blood by Automated count 0.63 10*3/uL 0-0.8 [facility] Eosinophils [#/volume] in Blood by Automated count 0.23 10*3/uL 0-0.5 [facility] Basophils [#/volume] in Blood by Automated count 0.06 10*3/uL 0-0.2 [facility] Nucleated erythrocytes/100 leukocytes [Ratio] in Blood by Automated count 0 /100{WBCs} 0-0 [facility] ID Date Data Source [id number] 05/19/2020 04:25:53 PM [facility] Value Range Interpretation Code Description Data Tere rce(s) Supporting Document(s) Glucose [Mass/volume] in Capillary blood by Glucometer 98 mg/dL 70- 140 [facility] ID Date Data Source [id number] 05/19/2020 11:31:45 AM [facility] Value Range Interpretation Code Description Data Tere rce(s) Supporting Document(s) Glucose [Mass/volume] in Capillary blood by Glucometer 157 mg/dL 70- 140 H [facility] ID Date Data Source [id number] 05/19/2020 09:53:00 AM EST [facility] Name Value Range Interpretation Code Description Data Tere rce(s) Supporting Document(s) SARS-CoV-2 RNA 2019 nCoV Real-Time RT-PCR: NOT DETECTED [facility] This lab was ordered by [facility] and reported by [facility]. 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[facility] Patient has symptoms related to [facility] When did you start to experience these symptoms [Date and time] [Phen X] [facility] Patient was hospitalized because of this condition [facility] patient was admitted to ICU for [facility] Patient resides in a congregate care setting [facility] status [facility] ID Date Data Source [id number] 05/19/2020 07:25:47 AM [facility] Value Range Interpretation Code Description Data Tere rce(s) Supporting Document(s) Glucose [Mass/volume] in Capillary blood by Glucometer 101 mg/dL 70- 140 [facility] ID Date Data Source [id number] 05/19/2020 07:06:48 AM [facility] Value Range Interpretation Code Description Data Tere rce(s) Supporting Document(s) Leukocytes [#/volume] in Blood by Automated count 4.6 10*3/uL 4-10 [facility] Erythrocytes [#/volume] in Blood by Automated count 3.09 10*6/uL 4.6- 6.1 L [facility] Hemoglobin [Mass/volume] in Blood 10.0 g/dL 13.5-18 L [facility] Hematocrit [Volume Fraction] of Blood by Automated count 29.0 % 4 1-53 L [facility] Erythrocyte mean corpuscular volume [Entitic volume] by Auto mated count 94.0 fL 80-96 [facility] Erythrocyte mean corpuscular hemoglobin [Entitic mass] by Automated count 32.2 pg 27-33 [facility] Erythrocyte mean corpuscular hemoglobin concentration [Mass/volume] by Automated count 34.3 g/dL 32.0-36.0 [facility]throcyte distribution width [Ratio] by Automated count 14.7 % 11.5-14.5 H [facility] Platelets [#/volume] in Blood by Automated count 159 10*3/uL 150-400 [facility] Differential cell count method - Blood [facility] Neutrophils/100 leukocytes in Blood by Automated count 68 % [facility] Lymphocytes/100 leukocytes in Blood by Automated count 15 % [facility] Monocytes/100 leukocytes in Blood by Automated count 12 % [facility] Eosinophils/100 leukocytes in Blood by Automated count 4 % [facility] Basophils/100 leukocytes in Blood by Automated count 1 % [facility] Neutrophils [#/volume] in Blood by Automated count 3.11 10*3/uL 1.8-7 .0 [facility] Lymphocytes [#/volume] in Blood by Automated count 0.71 10*3/uL 1.2-4 .0 L [facility] Monocytes [#/volume] in Blood by Automated count 0.56 10*3/uL 0-0.8 [facility] Eosinophils [#/volume] in Blood by Automated count 0.20 10*3/uL 0-0.5 [facility] Basophils [#/volume] in Blood by Automated count 0.04 10*3/uL 0-0.2 [facility] Nucleated erythrocytes/100 leukocytes [Ratio] in Blood by Automated count 0 /100{WBCs} 0-0 [facility] ID Date Data Source [id number] 05/19/2020 07:35:14 AM [facility] Name Value Range Interpretation Code Description Data Tere rce(s) Supporting Document(s) Bicarbonate [Moles/volume] in Serum 22 mmol/L 22-29 [facility] Chloride [Moles/volume] in Serum or Plasma 100 mmol/L 98-107 [facility] Creatinine [Mass/volume] in Serum or Plasma 3.72 mg/dL 0.70-1.20 H [facility] Glucose [Mass/volume] in Serum or Plasma 109 mg/dL 70-140 [facility] Potassium [Moles/volume] in Serum or Plasma 4.5 mmol/L 3.4-5.1 [facility] Hemolyzed Sodium [Moles/volume] in Serum or Plasma 133 mmol/L 136-145 L [facility] Urea nitrogen [Mass/volume] in Serum or Plasma 30 mg/dL 8-23 H [facility] Anion gap 3 in Serum or Plasma 11 mmol/L 8-15 [facility] Osmolality of Serum or Plasma by calculation 283 mosm/kg 275-300 [facility] Creatinine/Urea nitrogen [Mass Ratio] in Serum or Plasma 8 [facility] Calcium [Mass/volume] in Serum or Plasma 9.2 mg/dL 8.8-10.2 [facility] Glomerular filtration rate/1.73 sq M pre dicted among non-blacks [Volume Rate/Area] in Serum or Plasma by Creatinine-based formula (MDRD) 14 mL/min/1.73m2 >60 L [facility] Glomerular filtration rate/1.73 sq M pre dicted among blacks [Volume Rate/Area] in Serum or Plasma by Creatinine-based formula (MDRD) 17 mL/min/1.73m2 >60 L [facility] ID Date Data Source [id number] 05/18/2020 09:15:30 PM [facility] Value Range Interpretation Code Description Data Tere rce(s) Supporting Document(s) Glucose [Mass/volume] in Capillary blood by Glucometer 131 mg/dL 70- 140 [facility] ID Date Data Source [id number] 05/18/2020 07:05:05 PM [facility] Value Range Interpretation Code Description Data Tere rce(s) Supporting Document(s) Leukocytes [#/volume] in Blood by Automated count 5.8 10*3/uL 4-10 [facility] Erythrocytes [#/volume] in Blood by Automated count 3.50 10*6/uL 4.6- 6.1 L [facility] Hemoglobin [Mass/volume] in Blood 11.0 g/dL 13.5-18 L [facility] Hematocrit [Volume Fraction] of Blood by Automated count 32.8 % 4 1-53 L [facility] Erythrocyte mean corpuscular volume [Entitic volume] by Auto mated count 93.8 fL 80-96 [facility] Erythrocyte mean corpuscular hemoglobin [Entitic mass] by Automated count 31.3 pg 27-33 [facility] Erythrocyte mean corpuscular hemoglobin concentration [Mass/volume] by Automated count 33.4 g/dL 32.0-36.0 [facility] width [Ratio] by Automated count 14.7 % 11.5-14.5 H [facility] Platelets [#/volume] in Blood by Automated count 194 10*3/uL 150-400 [facility] Differential cell count method - Blood [facility] Neutrophils/100 leukocytes in Blood by Automated count 77 % [facility] Lymphocytes/100 leukocytes in Blood by Automated count 11 % [facility] Monocytes/100 leukocytes in Blood by Automated count 8 % [facility] Eosinophils/100 leukocytes in Blood by Automated count 3 % [facility] Basophils/100 leukocytes in Blood by Automated count 1 % [facility] Neutrophils [#/volume] in Blood by Automated count 4.50 10*3/uL 1.8-7 .0 [facility] Lymphocytes [#/volume] in Blood by Automated count 0.62 10*3/uL 1.2-4 .0 L [facility] Monocytes [#/volume] in Blood by Automated count 0.48 10*3/uL 0-0.8 [facility] Eosinophils [#/volume] in Blood by Automated count 0.20 10*3/uL 0-0.5 [facility] Basophils [#/volume] in Blood by Automated count 0.05 10*3/uL 0-0.2 [facility] Nucleated erythrocytes/100 leukocytes [Ratio] in Blood by Automated count 0 /100{WBCs} 0-0 [facility] ID Date Data Source [id number] 05/18/2020 04:29:55 PM EST [facility] Name Value Range Interpretation Code Description Data Tere rce(s) Supporting Document(s) Glucose [Mass/volume] in Capillary blood by Glucometer 138 mg/dL 70- 140 [facility] ID Date Data Source [id number] 05/18/2020 11:19:21 AM [facility] Value Range Interpretation Code Description Data Tere rce(s) Supporting Document(s) Glucose [Mass/volume] in Capillary blood by Glucometer 120 mg/dL 70- 140 [facility] ID Date Data Source [id number] 05/18/2020 10:04:42 AM [facility] Value Range Interpretation Code Description Data Tere rce(s) Supporting Document(s) Glucose [Mass/volume] in Capillary blood by Glucometer 133 mg/dL 70- 140 [facility] ID Date Data Source [id number] 05/18/2020 07:29:02 AM [facility] Value Range Interpretation Code Description Data Tere rce(s) Supporting Document(s) Glucose [Mass/volume] in Capillary blood by Glucometer 177 mg/dL 70- 140 H [facility] ID Date Data Source [id number] 05/18/2020 06:13:55 AM [facility] Value Range Interpretation Code Description Data Tere rce(s) Supporting Document(s) Bicarbonate [Moles/volume] in Serum 20 mmol/L 22-29 L [facility] Chloride [Moles/volume] in Serum or Plasma 101 mmol/L 98-107 [facility] Creatinine [Mass/volume] in Serum or Plasma 4.52 mg/dL 0.70-1.20 H [facility] Glucose [Mass/volume] in Serum or Plasma 145 mg/dL 70-140 H [facility] Potassium [Moles/volume] in Serum or Plasma 4.5 mmol/L 3.4-5.1 [facility] Sodium [Moles/volume] in Serum or Plasma 133 mmol/L 136-145 L [facility] Urea nitrogen [Mass/volume] in Serum or Plasma 46 mg/dL 8-23 H [facility] Anion gap 3 in Serum or Plasma 12 mmol/L 8-15 [facility] Osmolality of Serum or Plasma by calculation 291 mosm/kg 275-300 [facility] Creatinine/Urea nitrogen [Mass Ratio] in Serum or Plasma 10 [facility] Calcium [Mass/volume] in Serum or Plasma 9.2 mg/dL 8.8-10.2 [facility] Glomerular filtration rate/1.73 sq M pre dicted among non-blacks [Volume Rate/Area] in Serum or Plasma by Creatinine-based formula (MDRD) 11 mL/min/1.73m2 >60 L [facility] Glomerular filtration rate/1.73 sq M pre dicted among blacks [Volume Rate/Area] in Serum or Plasma by Creatinine-based formula (MDRD) 13 mL/min/1.73m2 >60 L [facility] ID Date Data Source [id number] 05/18/2020 06:40:30 AM [facility] Name Value Range Interpretation Code Description Data Tere rce(s) Supporting Document(s) Leukocytes [#/volume] in Blood by Automated count 4.8 10*3/uL 4-10 [facility] Erythrocytes [#/volume] in Blood by Automated count 3.41 10*6/uL 4.6- 6.1 L [facility] Hemoglobin [Mass/volume] in Blood 10.7 g/dL 13.5-18 L [facility] Hematocrit [Volume Fraction] of Blood by Automated count 31.9 % 4 1-53 L [facility] Erythrocyte mean corpuscular volume [Entitic volume] by Auto mated count 93.4 fL 80-96 [facility] Erythrocyte mean corpuscular hemoglobin [Entitic mass] by Automated count 31.3 pg 27-33 [facility] Erythrocyte mean corpuscular hemoglobin concentration [Mass/volume] by Automated count 33.5 g/dL 32.0-36.0 [facility] Erythrocyte distribution width [Ratio] by Automated count 14.7 % 11.5-14.5 H [facility] Platelets [#/volume] in Blood by Automated count 155 10*3/uL 150-400 [facility] Differential cell count method - Blood [facility] Neutrophils/100 leukocytes in Blood by Automated count 77 % [facility] Lymphocytes/100 leukocytes in Blood by Automated count 10 % [facility] Monocytes/100 leukocytes in Blood by Automated count 8 % [facility] Eosinophils/100 leukocytes in Blood by Automated count 5 % [facility] Neutrophils [#/volume] in Blood by Automated count 3.68 10*3/uL 1.8-7 .0 [facility] Lymphocytes [#/volume] in Blood by Automated count 0.49 10*3/uL 1.2-4 .0 [facility] Monocytes [#/volume] in Blood by Automated count 0.40 10*3/uL 0-0.8 [facility] Eosinophils [#/volume] in Blood by Automated count 0.23 10*3/uL 0-0.5 [facility] ID Date Data Source [id number] 05/19/2020 09:27:05 AM [facility] Service Cmnt XXX-Imp : NoneMicroorganism XXX Cult : No growth 1 day Name Value Range Interpretation Code Description Data Tere rce(s) Supporting Document(s) ID Date Data Source [id number] 05/18/2020 12:54:35 AM [facility] Name Value Range Interpretation Code Description Data Tere rce(s) Supporting Document(s) Color of Urine [facility] Clarity of Urine [facility] Specific gravity of Urine by Refractometry automated 1.012 1.003 -1.030 [facility] pH of Urine by Automated test strip 5.0 5.0-8.0 [facility] Protein [Mass/volume] in Urine by Automated test strip Neg [facility] Glucose [Mass/volume] in Urine by Automated test strip 50 mg/dL Neg [facility] Ketones [Mass/volume] in Urine by Automated test strip Neg [facility] Bilirubin.total [Presence] in Urine by Automated test strip Negative [facility] Hemoglobin [Presence] in Urine by Automated test strip Neg [facility] Leukocyte esterase [Presence] in Urine by Automated test strip Negative [facility] Nitrite [Presence] in Urine by Automated test strip Negati [facility] Leukocytes [#/area] in Urine sediment by Automated count 2323 /HPF 0 -5 H [facility] Erythrocytes [#/area] in Urine sediment by Automated count 19 /HPF 0-3 H [facility] Epithelial cells.squamous [#/area] in Urine sediment by Auto mated count 1 /HPF None [facility] Mucus [#/area] in Urine sediment by Microscopy low power field None [facility] Hyaline casts [#/area] in Urine sediment by Microscopy low p ower field 9 /LPF None [facility] ID Date Data Source [id number] 05/17/2020 09:49:26 PM [facility] Name Value Range Interpretation Code Description Data Tere rce(s) Supporting Document(s) Glucose [Mass/volume] in Capillary blood by Glucometer 116 mg/dL 70- 140 [facility] ID Date Data Source [id number] 05/18/2020 05:10:14 AM [facility] Name Value Range Interpretation Code Description Data Tere rce(s) Supporting Document(s) Leukocytes [#/volume] in Blood by Automated count 4.3 10*3/uL 4-10 [facility] Erythrocytes [#/volume] in Blood by Automated count 3.13 10*6/uL 4.6- 6.1 L [facility] Hemoglobin [Mass/volume] in Blood 9.9 g/dL 13.5-18 L [facility] Hematocrit [Volume Fraction] of Blood by Automated count 29.1 % 4 1-53 L [facility] Erythrocyte mean corpuscular volume [Entitic volume] by Auto mated count 92.9 fL 80-96 [facility] Erythrocyte mean corpuscular hemoglobin [Entitic mass] by Automated count 31.7 pg 27-33 [facility] Erythrocyte mean corpuscular hemoglobin concentration [Mass/volume] by Automated count 34.1 g/dL 32.0-36.0 [facility] Erythrocyte distribution width [Ratio] by Automated count 14.7 % 11.5-14.5 H [facility] Platelets [#/volume] in Blood by Automated count 147 10*3/uL 150-400 L [facility] Differential cell count method - Blood [facility] Neutrophils/100 leukocytes in Blood by Automated count 74 % [facility] Lymphocytes/100 leukocytes in Blood by Automated count 10 % [facility] Monocytes/100 leukocytes in Blood by Automated count 8 % [facility] Eosinophils/100 leukocytes in Blood by Automated count 7 % [facility] Basophils/100 leukocytes in Blood by Automated count 1 % [facility] Neutrophils [#/volume] in Blood by Automated count 3.23 10*3/uL 1.8-7 .0 [facility] Lymphocytes [#/volume] in Blood by Automated count 0.41 10*3/uL 1.2-4 .0 L [facility] Monocytes [#/volume] in Blood by Automated count 0.33 10*3/uL 0-0.8 [facility] Eosinophils [#/volume] in Blood by Automated count 0.29 10*3/uL 0-0.5 [facility] Basophils [#/volume] in Blood by Automated count 0.04 10*3/uL 0-0.2 [facility] Anisocytosis [Presence] in Blood by Light microscopy [facility] Poikilocytosis [Presence] in Blood by Light microscopy [facility] [place] cells [Presence] in Blood by Light microscopy [facility] ID Date Data Source [id number] 05/17/2020 09:15:54 PM [facility] Name Value Range Interpretation Code Description Data Tere rce(s) Supporting Document(s) Glucose [Mass/volume] in Capillary blood by Glucometer 125 mg/dL 70- 140 [facility] ID Date Data Source [id number] 05/17/2020 04:57:16 PM [facility] Name Value Range Interpretation Code Description Data Tere rce(s) Supporting Document(s) Glucose [Mass/volume] in Capillary blood by Glucometer 114 mg/dL 70- 140 [facility] ID Date Data Source [id number] 05/17/2020 03:29:19 PM [facility] XR CHEST FRONTAL ONLY [id number] RESULTI nterpreted by:Saúl Cruz MDINDICATION: Concern for [...] rce(s) Supporting Document(s) ID Date Data Source [id number] 05/22/2020 10:52:09 AM [facility] Service Cmnt XXX-Imp : R ACMicroorganism XXX Cult : No growth 5 days Name Value Range Interpretation Code Description Data Tere rce(s) Supporting Document(s) ID Date Data Source [id number] 05/22/2020 10:52:09 AM [facility] Service Cmnt XXX-Imp : R HANDMicroorgani sm XXX Cult : No growth 5 days Name Value Range Interpretation Code Description Data Tere rce(s) Supporting Document(s) ID Date Data Source [id number] 05/17/2020 11:24:59 AM [facility] Name Value Range Interpretation Code Description Data Tere rce(s) Supporting Document(s) Glucose [Mass/volume] in Capillary blood by Glucometer 131 mg/dL 70- 140 [facility] ID Date Data Source [id number] 05/17/2020 09:39:18 AM [facility] MR ANGIOGRAPHY HEAD WITHOUT CONTRAST 705 44FINAL RESULTInterpreted by:Javon Ervin MDHISTORY: Persistent lightheadedness, dizziness, concern for vertebrobasilar sufficiency.COMPARISON: NoneTECHNIQUE: 3-D wnuw-ys-bqxpob MRA of the [place] and 2-D as well as 3-D pjgh-re-oeknsh MRA of the vessels of the neck [...] are patent bilaterally. origin of the right [employer]CEL[employer] ENAMEL REPAIRER and near origin of the left [employer] ENAMEL REPAIRER are noted set. Old is bilateral the [...] basilar artery. Otherwise patent arteries of the [place]. No gross evidence of aneurysm or arteriovenous malformation.This document has been electronically signed by Javon Ervin MD on 05/17/2020 9:37 AM Name Value Range Interpretation Code Description Data Tere rce(s) Supporting Document(s) ID Date Data Source [id number] 05/17/2020 09:39:18 AM [facility] MR ANGIOGRAPHY NECK WITHOUT CONTRAST 705 47FINAL RESULTInterpreted by:Javon Ervin MDHISTORY: Persistent lightheadedness, dizziness, concern for vertebrobasilar sufficiency.COMPARISON: NoneTECHNIQUE: 3-D stvu-ca-eisdsu MRA of the [place] and 2-D as well as 3-D pamc-zh-emszhc MRA of the vessels of the neck [...] are patent bilaterally. origin of the right [employer] REPAIRER and near origin of the left [employer] ENAM[employer] REPAIRER are noted set. Old is bilateral the [...] basilar artery. Otherwise patent arteries of the [place]. No gross evidence of aneurysm or arteriovenous malformation.This document has been electronically signed by Javon Ervin MD on 05/17/2020 9:37 AM Name Value Range Interpretation Code Description Data Tere rce(s) Supporting Document(s) ID Date Data Source [id number] 05/17/2020 07:30:20 AM [facility] Name Value Range Interpretation Code Description Data Tere rce(s) Supporting Document(s) Glucose [Mass/volume] in Capillary blood by Glucometer 146 mg/dL 70- 140 H [facility] ID Date Data Source [id number] 05/17/2020 04:54:10 AM [facility] Name Value Range Interpretation Code Description Data Tere rce(s) Supporting Document(s) Leukocytes [#/volume] in Blood by Automated count 4.6 10*3/uL 4-10 [facility] Erythrocytes [#/volume] in Blood by Automated count 3.29 10*6/uL 4.6- 6.1 L [facility] Hemoglobin [Mass/volume] in Blood 10.4 g/dL 13.5-18 L [facility] Hematocrit [Volume Fraction] of Blood by Automated count 30.6 % 4 1-53 L [facility] Erythrocyte mean corpuscular volume [Entitic volume] by Auto mated count 93.1 fL 80-96 [facility] Erythrocyte mean corpuscular hemoglobin [Entitic mass] by Automated count 31.5 pg 27-33 [facility] Erythrocyte mean corpuscular hemoglobin concentration [Mass/volume] by Automated count 33.8 g/dL 32.0-36.0 [facility] Erythrocyte distribution width [Ratio] by Automated count 14.7 % 11.5-14.5 H [facility] Platelets [#/volume] in Blood by Automated count 154 10*3/uL 150-400 [facility] Differential cell count method - Blood [facility] Neutrophils/100 leukocytes in Blood by Automated count 71 % [facility] Lymphocytes/100 leukocytes in Blood by Automated count 13 % [facility] Monocytes/100 leukocytes in Blood by Automated count 11 % [facility] Eosinophils/100 leukocytes in Blood by Automated count 4 % [facility] Basophils/100 leukocytes in Blood by Automated count 1 % [facility] Neutrophils [#/volume] in Blood by Automated count 3.27 10*3/uL 1.8-7 .0 [facility] Lymphocytes [#/volume] in Blood by Automated count 0.59 10*3/uL 1.2-4 .0 L [facility] Monocytes [#/volume] in Blood by Automated count 0.48 10*3/uL 0-0.8 [facility] Eosinophils [#/volume] in Blood by Automated count 0.18 10*3/uL 0-0.5 [facility] Basophils [#/volume] in Blood by Automated count 0.05 10*3/uL 0-0.2 [facility] Nucleated erythrocytes/100 leukocytes [Ratio] in Blood by Automated count 0 /100{WBCs} 0-0 [facility] ID Date Data Source [id number] 05/17/2020 05:15:27 AM [facility] Name Value Range Interpretation Code Description Data Tere rce(s) Supporting Document(s) Bicarbonate [Moles/volume] in Serum 24 mmol/L 22-29 [facility] Chloride [Moles/volume] in Serum or Plasma 97 mmol/L 98-107 L [facility] Creatinine [Mass/volume] in Serum or Plasma 3.70 mg/dL 0.70-1.20 H [facility] Glucose [Mass/volume] in Serum or Plasma 172 mg/dL 70-140 H [facility] Potassium [Moles/volume] in Serum or Plasma 4.3 mmol/L 3.4-5.1 [facility] Sodium [Moles/volume] in Serum or Plasma 134 mmol/L 136-145 L [facility] Urea nitrogen [Mass/volume] in Serum or Plasma 39 mg/dL 8-23 H [facility] Anion gap 3 in Serum or Plasma 13 mmol/L 8-15 [facility] Osmolality of Serum or Plasma by calculation 291 mosm/kg 275-300 [facility] Creatinine/Urea nitrogen [Mass Ratio] in Serum or Plasma 11 [facility] Calcium [Mass/volume] in Serum or Plasma 8.0 mg/dL 8.8-10.2 L [facility] Glomerular filtration rate/1.73 sq M pre dicted among non-blacks [Volume Rate/Area] in Serum or Plasma by Creatinine-based formula (MDRD) 15 mL/min/1.73m2 >60 L [facility] Glomerular filtration rate/1.73 sq M pre dicted among blacks [Volume Rate/Area] in Serum or Plasma by Creatinine-based formula (MDRD) 17 mL/min/1.73m2 >60 L [facility] ID Date Data Source [id number] 05/17/2020 05:23:56 AM [facility] Name Value Range Interpretation Code Description Data Tere rce(s) Supporting Document(s) Heparin unfractionated [Units/volume] in Platelet poor plasma by Chromogenic method 2.18 U/ml [facility] ConfirmedCalled to and read back Vanesa DOMINIQUE RN 5A [id number] AT [id number] BY 1524 ID Date Data Source [id number] 05/17/2020 02:48:08 AM [facility] Name Value Range Interpretation Code Description Data Tere rce(s) Supporting Document(s) [facility] XIPINc1nYuGFXoSg91/SAUduZHIlm1FjPIhkFZr6UGekEBLiL7IvLDP4xQ2yBEK8QKzENeAcKaRfKdA8 lbm [file] waa3FfsWF0BCBb6KizUS/skT+Auto Body Technician+L/fljeX69hHxQp [file] mary [file] 3GkQr1rSMuoW/Ph/yn51/Stiwnwrc7tPKt3b/an/O/d3Z+J9dvy/eniJf/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/Ozv/vTv/O0//Fu3/+Bv /uT3/4Pf+/GPfviD3/3+937nt9/53m9691p/469/65 vfePedt2+9dfPGb/61r3/tzTcOrn/1K6+/0mzKF986Nc0+0ZYdj6v0U971dU7l4ssrdvZ3dhfbr9cPP0 ruFKW/LB9+cO8jA4WTv1rHE57tC+2/wG2zxXupD6n7h7kuAJl519l/3DzKlxIxwRzcEjmBPKslkzx6XH 18fnmQk4+9Sy29eNAT+pzXWnd1+AAWJsk4WfrloyfS z+z5O7r/Ghch5Y6hpz+heHd+lF49bMp1ttfQCC+/t2ZSaUvaK/3RgR/Dgm8WM8m7M6aS2/A134eNcJu1 G0/1irlQnm8YW4R+/en5s4akK46023kSO7qL9vcjHIkU528VrgmZ/6++l71l65j17H4g+a35/Ad1dl3p L10/8ZlaB9t82Y9O718m8twU4g7vlwzo6Y7xe0kPvc /wlMaB2IC1ra3QH28y562+3hyNhhj0x//z167/UuvkKCPodEK70/my67+c+xzJsSdpQ0RSq6b1nF0dba Z+btHR3xf+nh8LPVrqsAph/nEbSeocD74ml77vxrWCfDfPV4q01AXrNEnG4FV1IO/Xr/Twr0t9h3IP61 6/OLff38/3i8XEhyx4oKlZz/nz+oG+o8Z1tnh627o4 TlWzu3vo8IzraZ9stjZ+jeHPX2+6fv2N6//Ah5AkTpugB7ml/Tp4bKu6sz84p9tr39sUAkdc4THa9ixX afLPbNeyh65B+69eDzVvbHmOfPrhhwJHzK/hreR3h5ByUdWtlDkqsc1tu5uHu+lk2arZ6QS7/IRnpjNX nru1+8yNUMMzt///nM+11VX6fhH0nho0y/y0hxQerr rkDJYiuVwJR05xrQctkA2sx/GgA02Pzt73msedi19uiMtw+7byxhbDrquMXob0bxQZcz/SI525gXr4Am 8n+y9d/4tDycd9Zswt/v4dQ2l8s4u7bpS50gT2jxJRmGEd+1KwA42RxrA+hFgRg20Pxyuka8hKy+/sn7 1689bNcP/0kmfBpSXqQv60CmD2Os680n9259wbxc6l Wrha5nOf0l9ec+4M7hypmyCbja01125Q5uF3rv1Gi+++vesJur9/zPRIz2s+64Gb6RECQJAw23CEAe0z MUKURQTaUvy9ekqc/+n0ameWht976jgdD8n2Vg3979wwmX1rP4nm14Suc+s0q32ok0L44+5bM152odTf R8P4he2FkoveldBYsd+nEfjh+GX2j6ftg/z/w6NvtG +/mgr3KmLwriuR5EtkwXUj4GTsD3p/appq9ou9vct0w49/NT+ra3kq8V3/SmXmfZVu1Tv/nE0fPdHmp6 L7bZrfNuI+/P6LhH6gYljBkHK+2fwmn22MdaehLlDpJrpj76gcHiiT4k9A2vsN1cjo+VzdUaea18Iu/n v+8r4IJOQ2boKU5aUnaw1DewTPfqvvqCj5tqJwvyto m+/o7krj0fGYDcdlHosTzpmxL16mJDzCc9jKT51mfZUTA1mHz6p1gHW91OD/v7e3e/CvS5qoy/nNd2Lb Vdf8vBdJ2ee04F1MW5ZzVdAvT7sJQs+CJ7uICRsnrd9J21qcb1Lx3uvti+t/id3hw2YkY0177EWX3xIq /Jj5tUxxbuDPFH5OhqvpWY5oarEm+vbx/9Wj7+zd+X rvSpMT/439i62fu6E8Ge3gM4lEKUwjp5/58a3ouvHMwYKAlWlZ92OzprXP6m3rwa7Uk22k8SHsTJ0cfw 26TU9s/7byafQVv5q7tNa0a/ZjZp0gdX/i2TK1R7Z/+ZWj/hU/9HcmVL75hI6Af9AUj+2RrtuciejWA/ ZEobn7wcJB1DRlg5tfuODwqnK2fIlfbd/uhrT1/vFf mJQl1z9uqQ7LBoh49ZLvXEPo7aTYgIXQJJxY0aE1pnk/a6pJ3Ilh/l4YcTSEOnCcjaBn6F97/BdZTbkd +sh6LxxlBueGTzrfmE3194At8cwVdrsepebbSlXumtr8TN45htrm9No93cbanRm+9OqetxlxbD+rqfp8 [file] WjT4QHUoGD2uTGEYXn0+FElfbDWtuImzKTFDAaT1NdGoYJkhEUWPZo0O ID Date Data Source [id number] 05/16/2020 09:53:03 PM [facility] Name Value Range Interpretation Code Description Data Tere rce(s) Supporting Document(s) Glucose [Mass/volume] in Capillary blood by Glucometer 219 mg/dL 70- 140 H [facility] ID Date Data Source [id number] 05/16/2020 07:58:28 PM [facility] Name Value Range Interpretation Code Description Data Tere rce(s) Supporting Document(s) Leukocytes [#/volume] in Blood by Automated count 4.2 10*3/uL 4-10 [facility] Erythrocytes [#/volume] in Blood by Automated count 3.25 10*6/uL 4.6- 6.1 L [facility] Hemoglobin [Mass/volume] in Blood 10.2 g/dL 13.5-18 L [facility] Hematocrit [Volume Fraction] of Blood by Automated count 30.4 % 4 1-53 L [facility] Erythrocyte mean corpuscular volume [Entitic volume] by Auto mated count 93.5 fL 80-96 [facility] Erythrocyte mean corpuscular hemoglobin [Entitic mass] by Automated count 31.4 pg 27-33 [facility] Erythrocyte mean corpuscular hemoglobin concentration [Mass/volume] by Automated count 33.6 g/dL [facility].0[facility] width [Ratio] by Automated count 14.8 % 11.5-14.5 [facility] Platelets [#/volume] in Blood by Automated count 149 10*3/uL 150-400 L [facility] Differential cell count method - Blood [facility] Neutrophils/100 leukocytes in Blood by Automated count 75 % [facility] Lymphocytes/100 leukocytes in Blood by Automated count 10 % [facility] Monocytes/100 leukocytes in Blood by Automated count 10 % [facility] Eosinophils/100 leukocytes in Blood by Automated count 4 % [facility] Basophils/100 leukocytes in Blood by Automated count 1 % [facility] Neutrophils [#/volume] in Blood by Automated count 3.17 10*3/uL 1.8-7 .0 [facility] Lymphocytes [#/volume] in Blood by Automated count 0.44 10*3/uL 1.2-4 .0 L [facility] Monocytes [#/volume] in Blood by Automated count 0.43 10*3/uL 0-0.8 [facility] Eosinophils [#/volume] in Blood by Automated count 0.17 10*3/uL 0-0.5 [facility] Basophils [#/volume] in Blood by Automated count 0.03 10*3/uL 0-0.2 [facility] Nucleated erythrocytes/100 leukocytes [Ratio] in Blood by Automated count 0 /100{WBCs} 0-0 [facility] ID Date Data Source [id number] 05/16/2020 05:27:02 PM [facility] Name Value Range Interpretation Code Description Data Tere rce(s) Supporting Document(s) Glucose [Mass/volume] in Capillary blood by Glucometer 146 mg/dL 70- 140 H [facility] ID Date Data Source [id number] 05/16/2020 04:11:00 PM EST [facility] Name Value Range Interpretation Code Description Data Tere rce(s) Supporting Document(s) SARS-CoV-2 RNA 2019 nCoV Real-Time RT-PCR: NOT DETECTED [facility] This lab was ordered by [facility] and reported by [facility]. 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[facility] Patient has symptoms related to [facility] When did you start to experience these symptoms [Date and time] [Phen X] [facility] Patient was hospitalized because of this condition [facility] patient was admitted to ICU for condition [facility] Patient resides in a congregate care setting [facility] status [facility] ID Date Data Source [id number] 05/16/2020 03:42:26 PM [facility] Name Value Range Interpretation Code Description Data Tere rce(s) Supporting Document(s) Glucose [Mass/volume] in Capillary blood by Glucometer 106 mg/dL 70- 140 [facility] ID Date Data Source [id number] 05/16/2020 03:17:58 PM [facility] Name Value Range Interpretation Code Description Data Tere rce(s) Supporting Document(s) [facility] VCLSRc8bGgFALdTcu0ErXlGhUKJeSK0rxsy7D3O6yWUmS1EzqFYgw9cnX0SvI0FtLTSoJSSBCM9KiUWy jb2 [file] m8nvwmpf/qy1+//fbD+9+9+/oksana+0//+vJ61fqz29lta/vp director of creative strategy/Yd3bx/fffr4/n6jpqd7G4myb1S2j223UE 0dcCFs3IQLs/99/fbX73/m2EQPDj+9//bD3/jr+0Ps f/1l47jN44/9+Pb+a5zvznte93c//eao6b5078b3dc+8vay/ePf1tx/ojkzbx6051qrl23/7+7/xa5K1 /MQER373+M3r7u+++qef/pln6Lr/7F9+9f1G02fcvvCvEr++7vQv7z/89w8Al8+/cbo2phW7L9n+4W/8 zO0q3D/v9do2163/35w2F42z26Kbq93+5fPWf7y48h 6phca39en//fDLv/Gft/t2/+dXP/753//4lz/98Ie3//N/v33z44//87//8Jf/8cMP//D23ff/869/fP vN93/4/tUQo/3b37/9+Oe39vP+c3+y7vKMK1p1/eab//Ji/HTS/cNqf/rTz/+Fm53INkftNo/vb9AniB Sdexg9z/8XoC+fHnD/4/EBC2hG96HG91q/ZvcfezY8 M8t9R9DYOj5+nuurV59/j27hGD6Ug//Bxx/+/Ye//OJz27s3d3/07xfmjZ947+HdZxVtn/6GChMw4o8X j6X203/3DQc99j539ysbkeLZaOVsh0Cg9/3w57/+49tfvv/r57/++oy+RVKd+4/+xFfk/1rY//HT3z7Q bz6+/fHPf/3hL//39//uZ236YEldA32/b2FyjZ/+/A H/+eN3b3/4X69H/+OPf/2t86eZlt/8fvzEg/3zp5//22bx5q4bM2G2v/y86/7s1/0JPV+lG1GpY3a6W+ xCLBaPB/bfuu1Dx4816Iqh7t8/f374z/23bg1TGymH/e892NZg9ms960/5bKb5/EV88/1/vDG769sdN5 //r99//59//P7P//X/n2b4+OOPf/riuhMC/+RPzjP/ +sfff/H6vHCo+vLWhQXuP/j0w+//+5//+PvXbb54++41/7z/8P4nf+wqHvHH//nXV9/5wxe/+PjlL//1 qy8//vL9l//11u4i+PN/+8822r64+v0WuvGzN0///5/pWd73dfeQ/ub7/+mVJ0v17e/f+X9dPAkYA7/d 4z4/dm/zAqTJ1x788rBKdmy5bja8nqE+/jrFqa8euA sLGB6v++DER65p3hfv4mQfs6iGlyiV/k7fcIm8YoBoJBW4msGvnExmagTlYyrYSTxgQQUqXwr3BV3PwO MsSMJaG2T3SZWsmc2aQQHiBJUacEOuUwPeXCAFVT0IsXRcAW5KXIk2ANNpETMbKtQjYDRimuY3ETJhBP WrVZMaR1YumoDwqRFkQLCpHu8+QS6br0HpTiPgQTYi Xrs5LS5OeCIhHN0SbXTihS3ayvDeX226trMyWKImIysbv2EkYBdfSODSGS3YCWS6IGP3PNZvAk9+ZW5k t6MoBxIlLJJtDiz1WT5UvASaq0ZeIY6QU6KmYVDwSBMSAIT3t3IaVKSxbytobwuaF7LnMSV6qN7nZFG9 NRVxWIyvCYWaJKQmSQB2MYgbMPgdXZPzXNNdYYChGY NiXFf3rIXwBL8PS4SfOPVgJXJUMLZyhvBtVj5iAAAHYr3JQ7ZGKXXVAAvAFYZNNCN2IAA0NQJwQC0XiT CdROB9LUyYWRLTZZaRHNohJcIbp8O8IZUyW9EuBMOlvaRlEAJQAImjQgbzRC6acWmacmlqN0RimBRrZR CMUHKeDGDqLKVnNRPyB7Ngz5Y9F0PgUHgQLHDERAlW FHdhAeP9a95cyfMXINVvGWBoVO6+TY1kd8PiBc1JHXAvMC3qdhb8NS0NvBShPF8WYMvfljHyQ6qjbgRj KyXeFPNZSW8dC9TwhX79DKN+DmSdRF9tjkm5lpYaCoAbQQWnSZFjCUStKQtzYAWgCAYqKULbGFD7GJC7 HKQdSiRoIPWiPmW9BnhwOANgGQHolxJIDCBeWLT2II HyVNEnHJBxRQLrXNufJPChBPG9PbBkXDTaVCEsDU0qOzYrLMByORHiISKsKfQ3BiWzSeVTELUaCKVqOK FsJsBzRPKkKEDdDHnfCEHsGPLnWKf6TZFcEUSkCY5aNmYbRJGoPHDpXXWrHXOzLYOjpbICJDOfSMGbDI X7XBBtSCXnYKNmYFixOPMfZYKpTHJ4SXJfLDIxHD5l ZgSfMQIkEVJ7YsNoYFLiWSHtirSTSPHhFLEqJDM9NFZjRLSgGOMgRPlxLYKsBXGaZtO9ORElSBBcJC4x HxIvOMEdNDI3HEOsLNQgAIAlxvTCKAIeXXWrBHe1PuBbYDBrPMYpSByqFGLsFWJeKYucNIMfDDZhGV6x AeOeHETkTAFwRIFzJHLqDNZkmdZOXQTmLIYaAJI3Mj LdWHIuPOUeNMdfWHFpJARrWNO2NGUsHMOdCV4rDuLyHPHuKcRlJuMuNKIqCVMzajWHXIQpNUOvNCXyEF KbMMJcQTOqKVnjZZRdPLFzNcI8WYWrGJUlGZ0eTmPeZIEeBMM1XAYlBIHbTDLeyoSQOZAeYNThDKFtES M1XPKvQGAcBWs5mhQjtYOrEht1Rj4ApKunXHV3Ek3O exDhYMSrDDQHYt5Ef385NGDbMNTYAmm+DmlbvCEhdPucNJYSAbK5HzVDPHYXW6X= ID Date Data Source [id number] 05/16/2020 02:09:36 PM [facility] Name Value Range Interpretation Code Description Data Tere rce(s) Supporting Document(s) Glucose [Mass/volume] in Capillary blood by Glucometer 104 mg/dL 70- 140 [facility] ID Date Data Source [id number] 05/16/2020 12:44:56 PM [facility] Name Value Range Interpretation Code Description Data Tere rce(s) Supporting Document(s) [facility] IQOUEk6aUlTUCwWh12/CAPjzRJXfc3KiVTavWYr2NIhzQQAeC6TpRHI1gV3yVEG5LUsHLpJsJaQgTfB1 lbm [file] aY2FKSiZ9Kyc/ZXbH9lZrhDxYkyD4HQVkHTQKC8+E3IHA3kpQqsE/ewm6IXXl/BbLtkS1v1mjlZvR/PERSONAL INJURY PARALEGAL [file] AjDyJTsuH9UdKQdrBfZuUB7EIh7QKrK0TYV5lDXlAw7WPIHyCgVSCwDvMU3XCNn= ID Date Data Source [id number] 05/16/2020 12:28:51 PM [facility] Value Range Interpretation Code Description Data Tere rce(s) Supporting Document(s) Glucose [Mass/volume] in Capillary blood by Glucometer 161 mg/dL 70- 140 [facility] ID Date Data Source [id number] 05/16/2020 08:11:46 AM [facility] Value Range Interpretation Code Description Data Tere rce(s) Supporting Document(s) Glucose [Mass/volume] in Capillary blood by Glucometer 150 mg/dL 70- 140 [facility] ID Date Data Source [id number] 05/16/2020 07:02:32 AM [facility] Value Range Interpretation Code Description Data Tere rce(s) Supporting Document(s) Leukocytes [#/volume] in Blood by Automated count 5.1 10*3/uL 4-10 [facility] Erythrocytes [#/volume] in Blood by Automated count 3.13 10*6/uL 4.6- 6.1 L [facility] Hemoglobin [Mass/volume] in Blood 10.0 g/dL 13.5-18 L [facility] Hematocrit [Volume Fraction] of Blood by Automated count 29.6 % 4 1-53 L [facility] Erythrocyte mean corpuscular volume [Entitic volume] by Auto mated count 94.7 fL 80-96 [facility] Erythrocyte mean corpuscular hemoglobin [Entitic mass] by Automated count 31.9 pg 27-33 [facility] Erythrocyte mean corpuscular hemoglobin concentration [Mass/volume] by Automated count 33.7 g/dL 32.0-36.0 [facility] distribution width [Ratio] by Automated count 15.2 % 11.5-14.5 H [facility] Platelets [#/volume] in Blood by Automated count 150 10*3/uL 150-400 [facility] Differential cell count method - Blood [facility] Neutrophils/100 leukocytes in Blood by Automated count 66 % [facility] Lymphocytes/100 leukocytes in Blood by Automated count 20 % [facility] Monocytes/100 leukocytes in Blood by Automated count 9 % [facility] Eosinophils/100 leukocytes in Blood by Automated count 4 % [facility] Basophils/100 leukocytes in Blood by Automated count 1 % [facility] Neutrophils [#/volume] in Blood by Automated count 3.39 10*3/uL 1.8-7 .0 [facility] Lymphocytes [#/volume] in Blood by Automated count 0.99 10*3/uL 1.2-4 .0 L [facility] Monocytes [#/volume] in Blood by Automated count 0.47 10*3/uL 0-0.8 [facility] Eosinophils [#/volume] in Blood by Automated count 0.20 10*3/uL 0-0.5 [facility] Basophils [#/volume] in Blood by Automated count 0.04 10*3/uL 0-0.2 [facility] Nucleated erythrocytes/100 leukocytes [Ratio] in Blood by Automated count 0 /100{WBCs} 0-0 [facility] ID Date Data Source [id number] 05/16/2020 07:30:36 AM [facility] Name Value Range Interpretation Code Description Data Tere rce(s) Supporting Document(s) Bicarbonate [Moles/volume] in Serum 17 mmol/L 22-29 L [facility] Chloride [Moles/volume] in Serum or Plasma 99 mmol/L 98-107 [facility] Creatinine [Mass/volume] in Serum or Plasma 5.14 mg/dL 0.70-1.20 H [facility] Glucose [Mass/volume] in Serum or Plasma 174 mg/dL 70-140 H [facility] Potassium [Moles/volume] in Serum or Plasma 4.9 mmol/L 3.4-5.1 [facility] Sodium [Moles/volume] in Serum or Plasma 133 mmol/L 136-145 L [facility] Urea nitrogen [Mass/volume] in Serum or Plasma 77 mg/dL 8-23 H [facility] Anion gap 3 in Serum or Plasma 17 mmol/L 8-15 H [facility] Osmolality of Serum or Plasma by calculation 303 mosm/kg 275-300 H [facility] Creatinine/Urea nitrogen [Mass Ratio] in Serum or Plasma 15 [facility] Calcium [Mass/volume] in Serum or Plasma 8.7 mg/dL 8.8-10.2 [facility] Glomerular filtration rate/1.73 sq M pre dicted among non-blacks [Volume Rate/Area] in Serum or Plasma by Creatinine-based formula (MDRD) 10 mL/min/1.73m2 >60 L [facility] Glomerular filtration rate/1.73 sq M pre dicted among blacks [Volume Rate/Area] in Serum or Plasma by Creatinine-based formula (MDRD) 11 mL/min/1.73m2 >60 L [facility] ID Date Data Source [id number] 05/15/2020 09:07:34 PM [facility] Name Value Range Interpretation Code Description Data Tere rce(s) Supporting Document(s) Glucose [Mass/volume] in Capillary blood by Glucometer 193 mg/dL 70- 140 H [facility] ID Date Data Source [id number] 05/15/2020 07:19:27 PM [facility] Value Range Interpretation Code Description Data Tere rce(s) Supporting Document(s) Leukocytes [#/volume] in Blood by Automated count 4.9 10*3/uL 4-10 [facility] Erythrocytes [#/volume] in Blood by Automated count 2.99 10*6/uL 4.6- 6.1 L [facility] Hemoglobin [Mass/volume] in Blood 9.4 g/dL 13.5-18 L [facility] Hematocrit [Volume Fraction] of Blood by Automated count 28.0 % 4 1-53 L [facility] Erythrocyte mean corpuscular volume [Entitic volume] by Auto mated count 93.7 fL 80-96 [facility] Erythrocyte mean corpuscular hemoglobin [Entitic mass] by Automated count 31.6 pg 27-33 [facility] Erythrocyte mean corpuscular hemoglobin concentration [Mass/volume] by Automated count 33.7 g/dL 32.0-36.0 [facility]th[facility] distribution width [Ratio] by Automated count 14.8 % 11.5-14.5 H [facility] Platelets [#/volume] in Blood by Automated count 142 10*3/uL 150-400 L [facility] Differential cell count method - Blood [facility] Neutrophils/100 leukocytes in Blood by Automated count 71 % [facility] Lymphocytes/100 leukocytes in Blood by Automated count 15 % [facility] Monocytes/100 leukocytes in Blood by Automated count 11 % [facility] Eosinophils/100 leukocytes in Blood by Automated count 3 % [facility] Basophils/100 leukocytes in Blood by Automated count 0 % [facility] Neutrophils [#/volume] in Blood by Automated count 3.52 10*3/uL 1.8-7 .0 [facility] Lymphocytes [#/volume] in Blood by Automated count 0.72 10*3/uL 1.2-4 .0 L [facility] Monocytes [#/volume] in Blood by Automated count 0.53 10*3/uL 0-0.8 [facility] Eosinophils [#/volume] in Blood by Automated count 0.13 10*3/uL 0-0.5 [facility] Basophils [#/volume] in Blood by Automated count 0.02 10*3/uL 0-0.2 [facility] Nucleated erythrocytes/100 leukocytes [Ratio] in Blood by Automated count 0 /100{WBCs} 0-0 [facility] ID Date Data Source [id number] 05/15/2020 05:18:57 PM [facility] Name Value Range Interpretation Code Description Data Tere rce(s) Supporting Document(s) Glucose [Mass/volume] in Capillary blood by Glucometer 87 mg/dL 70- 140 [facility] ID Date Data Source [id number] 05/15/2020 12:09:56 PM [facility] Value Range Interpretation Code Description Data Tere rce(s) Supporting Document(s) Glucose [Mass/volume] in Capillary blood by Glucometer 233 mg/dL 70- 140 H [facility] ID Date Data Source [id number] 05/15/2020 12:23:25 PM [facility] Value Range Interpretation Code Description Data Tere rce(s) Supporting Document(s) Platelet aggregation ADP induced [Units/volume] in Platelet rich plasma 325 PRU <208 H [facility] (NOTE)<208 PRU Therapeutic range fo r P2Y12 ioweifmcws124-428 PRU Low response to P2Y12 inhibitors ID Date Data Source [id number] 05/15/2020 12:34:26 PM [facility] Value Range Interpretation Code Description Data Tere rce(s) Supporting Document(s) Creatine kinase [Enzymatic activity/volume] in Serum or Plasma 35 U /L 20-200 [facility] ID Date Data Source [id number] 05/15/2020 08:28:03 AM [facility] Value Range Interpretation Code Description Data Tere rce(s) Supporting Document(s) Glucose [Mass/volume] in Capillary blood by Glucometer 154 mg/dL 70- 140 [facility] ID Date Data Source [id number] 05/15/2020 04:42:13 AM [facility] Value Range Interpretation Code Description Data Tere rce(s) Supporting Document(s) Leukocytes [#/volume] in Blood by Automated count 4.8 10*3/uL 4-10 [facility] Erythrocytes [#/volume] in Blood by Automated count 2.89 10*6/uL 4.6- 6.1 L [facility] Hemoglobin [Mass/volume] in Blood 9.3 g/dL 13.5-18 L [facility] Hematocrit [Volume Fraction] of Blood by Automated count 26.7 % 4 1-53 L [facility] Erythrocyte mean corpuscular volume [Entitic volume] by Auto mated count 92.5 fL 80-96 [facility] Erythrocyte mean corpuscular hemoglobin [Entitic mass] by Automated count 32.1 pg 27-33 [facility] Erythrocyte mean corpuscular hemoglobin concentration [Mass/volume] by Automated count 34.7 g/dL 32.0-36.0 [facility] distribution width [Ratio] by Automated count 14.7 % 11.5-14.5 H [facility] Platelets [#/volume] in Blood by Automated count 128 10*3/uL 150-400 L [facility] Differential cell count method - Blood [facility] Neutrophils/100 leukocytes in Blood by Automated count 81 % [facility] Lymphocytes/100 leukocytes in Blood by Automated count 8 % [facility] Monocytes/100 leukocytes in Blood by Automated count 11 % [facility] Eosinophils/100 leukocytes in Blood by Automated count 0 % [facility] Basophils/100 leukocytes in Blood by Automated count 0 % [facility] Neutrophils [#/volume] in Blood by Automated count 3.88 10*3/uL 1.8-7 .0 [facility] Lymphocytes [#/volume] in Blood by Automated count 0.39 10*3/uL 1.2-4 .0 L [facility] Monocytes [#/volume] in Blood by Automated count 0.54 10*3/uL 0-0.8 [facility] Eosinophils [#/volume] in Blood by Automated count 0.01 10*3/uL 0-0.5 [facility] Basophils [#/volume] in Blood by Automated count 0.01 10*3/uL 0-0.2 [facility] Nucleated erythrocytes/100 leukocytes [Ratio] in Blood by Automated count 0 /100{WBCs} 0-0 [facility] ID Date Data Source [id number] 05/15/2020 04:59:14 AM [facility] Name Value Range Interpretation Code Description Data Tere rce(s) Supporting Document(s) Bicarbonate [Moles/volume] in Serum 21 mmol/L 22-29 L [facility] Chloride [Moles/volume] in Serum or Plasma 97 mmol/L 98-107 L [facility] Creatinine [Mass/volume] in Serum or Plasma 3.87 mg/dL 0.70-1.20 H [facility] Glucose [Mass/volume] in Serum or Plasma 200 mg/dL 70-140 H [facility] Potassium [Moles/volume] in Serum or Plasma 4.7 mmol/L 3.4-5.1 [facility] Sodium [Moles/volume] in Serum or Plasma 131 mmol/L 136-145 L [facility] Urea nitrogen [Mass/volume] in Serum or Plasma 62 mg/dL 8-23 H [facility] Anion gap 3 in Serum or Plasma 13 mmol/L 8-15 [facility] Osmolality of Serum or Plasma by calculation 295 mosm/kg 275-300 [facility] Creatinine/Urea nitrogen [Mass Ratio] in Serum or Plasma 16 [facility] Calcium [Mass/volume] in Serum or Plasma 8.6 mg/dL 8.8-10.2 L [facility] Glomerular filtration rate/1.73 sq M pre dicted among non-blacks [Volume Rate/Area] in Serum or Plasma by Creatinine-based formula (MDRD) 14 mL/min/1.73m2 >60 L [facility] Glomerular filtration rate/1.73 sq M pre dicted among blacks [Volume Rate/Area] in Serum or Plasma by Creatinine-based formula (MDRD) 16 mL/min/1.73m2 >60 L [facility] ID Date Data Source [id number] 05/14/2020 07:14:22 PM [facility] Name Value Range Interpretation Code Description Data Tere rce(s) Supporting Document(s) Color of Urine [facility] Clarity of Urine [facility] Specific gravity of Urine by Refractometry automated 1.018 1.003 -1.030 [facility] pH of Urine by Automated test strip 5.0 5.0-8.0 [facility] Protein [Mass/volume] in Urine by Automated test strip [facility] [Mass/volume] in Urine by Automated test strip [facility] Ketones [Mass/volume] in Urine by Automated test strip Neg [facility] Bilirubin.total [Presence] in Urine by Automated test strip Negative [facility] Hemoglobin [Presence] in Urine by Automated test strip Neg ative [facility] Leukocyte esterase [Presence] in Urine by Automated test strip Negative [facility] Nitrite [Presence] in Urine by Automated test strip Negati [facility] Leukocytes [#/area] in Urine sediment by Automated count 1010 /HPF 0 -5 H [facility] Erythrocytes [#/area] in Urine sediment by Automated count 10 /HPF 0-3 H [facility] Leukocyte clumps [#/area] in Urine sediment by Automated count None [facility] Bacteria [#/area] in Urine sediment by Automated count Non e A [facility] Mucus [#/area] in Urine sediment by Microscopy low power field None [facility] ID Date Data Source [id number] 05/16/2020 11:11:10 AM [facility] Service Cmnt XXX-Imp : NoneMicroorganism XXX Cult : Greater than 100,000 col/mlKlebsiella oxytocaATTENTION This species is always resistant to ampicillin and ticarcillin. Name Value Range Interpretation Code Description Data Tere rce(s) Supporting Document(s) ID Date Data Source [id number] 05/14/2020 06:27:32 PM [facility] Name Value Range Interpretation Code Description Data Tere rce(s) Supporting Document(s) Leukocytes [#/volume] in Blood by Automated count 4.6 10*3/uL 4-10 [facility] Erythrocytes [#/volume] in Blood by Automated count 3.23 10*6/uL 4.6- 6.1 L [facility] Hemoglobin [Mass/volume] in Blood 10.4 g/dL 13.5-18 L [facility] Hematocrit [Volume Fraction] of Blood by Automated count 29.8 % 4 1-53 L [facility] Erythrocyte mean corpuscular volume [Entitic volume] by Auto mated count 92.3 fL 80-96 [facility] Erythrocyte mean corpuscular hemoglobin [Entitic mass] by Automated count 32.3 pg 27-33 [facility] Erythrocyte mean corpuscular hemoglobin concentration [Mass/volume] by Automated count 34.9 g/dL 32.0-36.0 [facility] width [Ratio] by Automated count 14.6 % 11.5-14.5 H [facility] Platelets [#/volume] in Blood by Automated count 136 10*3/uL 150-400 L [facility] Differential cell count method - Blood [facility] Neutrophils/100 leukocytes in Blood by Automated count 93 % [facility] Lymphocytes/100 leukocytes in Blood by Automated count 5 % [facility] Monocytes/100 leukocytes in Blood by Automated count 2 % [facility] Eosinophils/100 leukocytes in Blood by Automated count 0 % [facility] Basophils/100 leukocytes in Blood by Automated count 0 % [facility] Neutrophils [#/volume] in Blood by Automated count 4.24 10*3/uL 1.8-7 .0 [facility] Lymphocytes [#/volume] in Blood by Automated count 0.24 10*3/uL 1.2-4 .0 L [facility] Monocytes [#/volume] in Blood by Automated count 0.09 10*3/uL 0-0.8 [facility] Eosinophils [#/volume] in Blood by Automated count 0.00 10*3/uL 0-0.5 [facility] Basophils [#/volume] in Blood by Automated count 0.00 10*3/uL 0-0.2 [facility] Nucleated erythrocytes/100 leukocytes [Ratio] in Blood by Automated count 0 /100{WBCs} 0-0 [facility] ID Date Data Source [id number] 05/14/2020 05:28:19 PM [facility] Name Value Range Interpretation Code Description Data Tere rce(s) Supporting Document(s) Glucose [Mass/volume] in Capillary blood by Glucometer 169 mg/dL 70- 140 H [facility] ID Date Data Source [id number] 05/14/2020 02:32:21 PM [facility] Name Value Range Interpretation Code Description Data Tree rce(s) Supporting Document(s) [facility] EWQDZl7cEyYSSsAjv0JoTjZjEAVvNH0kwyo3E6Y0iLXmQ8NffBZjt3ulL6JpF4VvUUIeNJGPCV1DzROc jb2 [file] /MD97L5/1GXluo70q/f/7f13f+MzUt39/B6CU996bbd4v4/zc2554mc9+vuPX75+06yNt2j57jLMt//6 Xz7/3yOvu58/99L+5u4di9c9U04/++X7X4RR//Xvf3 u1PJMspodTwa216+37z7/93Uuzg010X/yLt09v//zut+8hCwdckron7087Itop+S3lL3QX5kQo9x//1d /77T7P02/986/ff3i7e/vu4+ehpc5jI5n99hk5n36yc/X5Dz+9TJxOm//27bsvf/Xh/ouhN9v9/ut3H3 71/eT6t5z21Zt/+uZ3OX8jVifZ//ynf//9X/74w7+9 /ff/8/bb3//hD9//5S8/fP+Cj5w73lk//l4MT2rGMZ9do//25z+9tZ/rz+Bt8LaOP3jU5p+//quxEwVU 90XV/vjHn/7Tq5Q4FZhzH/zH3wJv/mGFD3sge/7/YQFu7jVmf6s+vDTY1e8jtf0bF45XoNxS/+ry9mta w4X/6/AJkXf5ianrDZd1A/Dxh3//5CVi43wrma37ez oXb19/86t3X/kbxge1AIuJp8P/rE7Thk8q8tgtuv8Pr8/5dDVrNruKZ0vE8ClZ8pqq/vSf//j2l+//84 jgIm21qJ/LY3/uD/2Rdyi+erD/+tNrb+jbj2+//9N//vCX//KHlj3odc5961qz8p8Sd6v/vfwG/+njd2 //9j9ff/33f/2TM60mQ+b17Oq4rWp3w10//6dPv+Nt AcmV48p+uOtgEk0F379pRrE/lOsnhn/EWaMk03lD/dRuD/Ttzz7+7NPb9//7h//608ly8RJQsoArRhy8 Jt4cb//vJq4qbL53T90+/g8/ur3rR+jn3//P333/H7///k9//f3HDB///Oc/fnbdRxb/5CP7P3/30633 3pcSdhRcKV4c2/j0w+/+3z/9/nevn/nszecaP/lkkI zkJ//sX73F071++/ab13r6+btPv/7rXw3/pVb/r1+Pj+8+2aU0lw3/0j9ty9Ib67yE/Nvv/55v5jJwu/ /+3nLgGx0gCV93Q4w8hp/ev4TXm/q1Fe60yg0st37qAbkKpb/xw7yORkeE5zDc4957/nsyzW016f6Et9 lvVts/8U6OIu7+mHroakGpgGIbNE2ENE7ya7SgGxH3 MUEww5HsPPcoPYh0oTRlLYplizMho2TgujddO6Btz8MoElUdYFAaWrHaFcf0AJEuPhA6dQWtPwDoDNMf U2FyEODoYqS7QjMnFATGEK0CLPDfpdHpKrNbUHL+LlCeUG9rktufBIFxq1IpWWbmYPxqHJMuR4L4vPuv BKLpR6CdeC56UJYxM6BfyoH0IEH6TMZzEkYfHQEvlV AxOSAwIFI+HmZnFO9nwauqCGTta8JxIYphGZR3kH4eMMyNBXZUVZjJBGphJvC2g97qgiQNYZVaZXWtNW 6VuhSrkSfcnlQhuKJiYOW3EyAvFSOsWEWpWVLkVBHXCMPuYBCbNNZyYQGwH0VxpFdfCVkELXMFGXfFOV ffKfJid8X9BTJviyIMDS2NUGaOIajaD6pCAQtEPAEm HEZxCnO7XGKsT2JarfNlaPYrFXPWTOcyVwmmNINapS1axQarP2NxKRU8d3HxLP2MO4UnRXRxTCFZWBE4 h2UrFFPwlkxhubnvOzQsKKUhKAUtUHOgTR1Lwq3msORkccVlWAFIULzbXvmfFB5yuZdnciqvH7ZukSNl KSA+ErGfKN6ebr4+OnUlBNQbPwj9JBBqXKjmMGNqNH EdCQJsG0mhAPYzOaNxGSWhBxQlGV3Ym4TgrXZmZw5ibvRfLwiJmQYlAbwzHGBfVWMiLHKfTtGGJDJkGD SuCEHkLXV2CADuNHBhONxmXLLxLUYuFeDrSUVhULBoKN0hYdIuNBExWjZ4UtMlKBPsYSRzlsTNQSGeMZ D3WmR1SGGqSTVtAKCdDIrdTSCuORRjZTYfJIZ1LEK4 RYLbFoCbWIThLSDkFXIrRNKqZHBkieUBBAYvNHLeFOG0XSEoYBLvCVIjQLcfTCCwOMMdBXdtZDHsWIQo TE9nEmJnDCVtXMOqANnuNSRgHCZjssVWDPVnEJCkEJRaNCZzYQKoYYQgBRrgNNDoRDUpOIWsXSRgJHHc FY5yXbNxUJTkOGA3HALkCJVsHVHsueIUFMIrGUJvFV o4SZFeFEPqVHAhTRxoQZHvKKWxVLN7IQMrUCEuHB3iPwTpYLXtQZJ0ShUuHOGzEOMaxmREHPLkDILiTX V5RmBnYFKxYDQcQZacRZXqZUMoEJrlIEFeYAMkSW8bWrObBQZeHPDtWDaiXJSeBINmgsOKJNXvHMGmUN ByHmNiZDSjJVZnGUxjKBJdTJSkOqD6OEXaGCWlRY6l BtPnUFCqFLY2EMeeKYOxDFLyqaOHFRTtIVNqPQmyHVBvHGGwXCTkLMlhKKYzYDJnMZQ6UOKyTCXjYL3p KyWoBEMbOQUwJMDnXrI4SvMfGtYTdYFnqXatiqe4IEfxR1b6CHHnZPynXX7npaGoSQBwLatyZv7lxJU2 UZIrMfpNRn4Uq9GpyiH1cjZqDbVzJTY2VtBbFX5S ID Date Data Source [id number] 05/14/2020 02:30:41 PM [facility] Value Range Interpretation Code Description Data Tere rce(s) Supporting Document(s) Glucose [Mass/volume] in Capillary blood by Glucometer 156 mg/dL 70- 140 H [facility] ID Date Data Source [id number] 05/14/2020 12:21:35 PM [facility] Value Range Interpretation Code Description Data Tere rce(s) Supporting Document(s) Kaolin activated time [Units/volume] in Blood [address] [facility] ID Date Data Source [id number] 05/14/2020 11:46:11 AM [facility] Value Range Interpretation Code Description Data Tere rce(s) Supporting Document(s) Kaolin activated time [Units/volume] in Blood 197 [facility] ID Date Data Source [id number] 05/14/2020 08:54:47 AM [facility] Value Range Interpretation Code Description Data Tere rce(s) Supporting Document(s) Glucose [Mass/volume] in Capillary blood by Glucometer 189 mg/dL 70- 140 [facility] ID Date Data Source [id number] 05/14/2020 04:12:04 AM [facility] Value Range Interpretation Code Description Data Tere rce(s) Supporting Document(s) Leukocytes [#/volume] in Blood by Automated count 5.2 10*3/uL 4-10 [facility] Erythrocytes [#/volume] in Blood by Automated count 3.38 10*6/uL 4.6- 6.1 L [facility] Hemoglobin [Mass/volume] in Blood 10.5 g/dL 13.5-18 L [facility] Hematocrit [Volume Fraction] of Blood by Automated count 31.9 % 4 1-53 L [facility] Erythrocyte mean corpuscular volume [Entitic volume] by Auto mated count 94.3 fL 80-96 [facility] Erythrocyte mean corpuscular hemoglobin [Entitic mass] by Automated count 31.1 pg 27-33 [facility] Erythrocyte mean corpuscular hemoglobin concentration [Mass/volume] by Automated count 33.0 g/dL [facility].0-[facility] width [Ratio] by Automated count 15.0 % 11.5-14.5 H [facility] Platelets [#/volume] in Blood by Automated count 126 10*3/uL 150-400 L [facility] Differential cell count method - Blood [facility] Neutrophils/100 leukocytes in Blood by Automated count 91 % [facility] Lymphocytes/100 leukocytes in Blood by Automated count 5 % [facility] Monocytes/100 leukocytes in Blood by Automated count 3 % [facility] Eosinophils/100 leukocytes in Blood by Automated count 1 % [facility] Basophils/100 leukocytes in Blood by Automated count 0 % [facility] Neutrophils [#/volume] in Blood by Automated count 4.66 10*3/uL 1.8-7 .0 [facility] Lymphocytes [#/volume] in Blood by Automated count 0.28 10*3/uL 1.2-4 .0 L [facility] Monocytes [#/volume] in Blood by Automated count 0.16 10*3/uL 0-0.8 [facility] Eosinophils [#/volume] in Blood by Automated count 0.03 10*3/uL 0-0.5 [facility] Basophils [#/volume] in Blood by Automated count 0.02 10*3/uL 0-0.2 [facility] Nucleated erythrocytes/100 leukocytes [Ratio] in Blood by Automated count 0 /100{WBCs} 0-0 [facility] ID Date Data Source [id number] 05/14/2020 04:23:58 AM [facility] Value Range Interpretation Code Description Data Tere rce(s) Supporting Document(s) Heparin unfractionated [Units/volume] in Platelet poor plasma by Chromogenic method 0.64 U/ml [facility] ID Date Data Source [id number] 05/14/2020 04:23:58 AM [facility] Value Range Interpretation Code Description Data Tere rce(s) Supporting Document(s) Prothrombin time (PT) 14.8 s 12.5-14.9 [facility] INR in Platelet poor plasma by Coagulation assay 1.15 [facility] Routine intensity oral anticoagulation I NR is typically 2.0-3.0. Target INR must be clinically individualized. ID Date Data Source [id number] 05/14/2020 04:40:37 AM [facility] Value Range Interpretation Code Description Data Tere rce(s) Supporting Document(s) Bicarbonate [Moles/volume] in Serum 19 mmol/L 22-29 L [facility] Chloride [Moles/volume] in Serum or Plasma 97 mmol/L 98-107 L [facility] Creatinine [Mass/volume] in Serum or Plasma 4.58 mg/dL 0.70-1.20 H [facility] Glucose [Mass/volume] in Serum or Plasma 244 mg/dL 70-140 H [facility] Potassium [Moles/volume] in Serum or Plasma 4.8 mmol/L 3.4-5.1 [facility] Sodium [Moles/volume] in Serum or Plasma 131 mmol/L 136-145 L [facility] Urea nitrogen [Mass/volume] in Serum or Plasma 75 mg/dL 8-23 H [facility] Anion gap 3 in Serum or Plasma 15 mmol/L 8-15 [facility] Osmolality of Serum or Plasma by calculation 302 mosm/kg 275-300 H [facility] Creatinine/Urea nitrogen [Mass Ratio] in Serum or Plasma 16 [facility] Calcium [Mass/volume] in Serum or Plasma 8.8 mg/dL 8.8-10.2 [facility] Glomerular filtration rate/1.73 sq M pre dicted among non-blacks [Volume Rate/Area] in Serum or Plasma by Creatinine-based formula (MDRD) 11 mL/min/1.73m2 >60 L [facility] Glomerular filtration rate/1.73 sq M pre dicted among blacks [Volume Rate/Area] in Serum or Plasma by Creatinine-based formula (MDRD) 13 mL/min/1.73m2 >60 L [facility] ID Date Data Source [id number] 05/13/2020 11:09:33 PM [facility] Value Range Interpretation Code Description Data Tere rce(s) Supporting Document(s) Glucose [Mass/volume] in Capillary blood by Glucometer 117 mg/dL 70- 140 [facility] ID Date Data Source [id number] 05/13/2020 08:34:27 PM [facility] Value Range Interpretation Code Description Data Tere rce(s) Supporting Document(s) Heparin unfractionated [Units/volume] in Platelet poor plasma by Chromogenic method 0.98 U/ml [facility] ID Date Data Source [id number] 05/13/2020 07:19:41 PM [facility] Value Range Interpretation Code Description Data Tere rce(s) Supporting Document(s) Heparin unfractionated [Units/volume] in Platelet poor plasma by Chromogenic method 1.48 U/ml [facility] al ConfirmedCalled to and read back byBERONICA PANIAGUA RN [id number] BY 9418 ID Date Data Source [id number] 05/13/2020 07:19:41 PM [facility] Name Value Range Interpretation Code Description Data Tere rce(s) Supporting Document(s) Prothrombin time (PT) 16.6 s 12.5-14.9 H [facility] INR in Platelet poor plasma by Coagulation assay 1.33 [facility] Routine intensity oral anticoagulation I NR is typically 2.0-3.0. Target INR must be clinically individualized. ID Date Data Source [id number] 05/13/2020 06:46:16 PM [facility] Value Range Interpretation Code Description Data Tere rce(s) Supporting Document(s) Leukocytes [#/volume] in Blood by Automated count 6.0 10*3/uL 4-10 [facility] Erythrocytes [#/volume] in Blood by Automated count 3.28 10*6/uL 4.6- 6.1 L [facility] Hemoglobin [Mass/volume] in Blood 10.4 g/dL 13.5-18 L [facility] Hematocrit [Volume Fraction] of Blood by Automated count 30.9 % 4 1-53 L [facility] Erythrocyte mean corpuscular volume [Entitic volume] by Auto mated count 94.1 fL 80-96 [facility] Erythrocyte mean corpuscular hemoglobin [Entitic mass] by Automated count 31.7 pg 27-33 [facility] Erythrocyte mean corpuscular hemoglobin concentration [Mass/volume] by Automated count 33.7 g/dL 32.0-36.0 [facility] Erythrocyte distribution width [Ratio] by Automated count 15.0 % 11.5-14.5 H [facility] Platelets [#/volume] in Blood by Automated count 138 10*3/uL 150-400 L [facility] Differential cell count method - Blood [facility] Neutrophils/100 leukocytes in Blood by Automated count 78 % [facility] Lymphocytes/100 leukocytes in Blood by Automated count 8 % [facility] Monocytes/100 leukocytes in Blood by Automated count 10 % [facility] Eosinophils/100 leukocytes in Blood by Automated count 3 % [facility] Basophils/100 leukocytes in Blood by Automated count 1 % [facility] Neutrophils [#/volume] in Blood by Automated count 4.73 10*3/uL 1.8-7 .0 [facility] Lymphocytes [#/volume] in Blood by Automated count 0.46 10*3/uL 1.2-4 .0 L [facility] Monocytes [#/volume] in Blood by Automated count 0.61 10*3/uL 0-0.8 [facility] Eosinophils [#/volume] in Blood by Automated count 0.16 10*3/uL 0-0.5 [facility] Basophils [#/volume] in Blood by Automated count 0.04 10*3/uL 0-0.2 [facility] Nucleated erythrocytes/100 leukocytes [Ratio] in Blood by Automated count 0 /100{WBCs} 0-0 [facility] ID Date Data Source [id number] 05/13/2020 06:09:50 PM [facility] Name Value Range Interpretation Code Description Data Tere rce(s) Supporting Document(s) Hemoglobin A1c/Hemoglobin.total in Blood by HPLC 6.1 % 4.0-6.0 H [facility] (NOTE)<5.7% Average risk of diabetes (ADA)5.7-6.4% Increased risk of diabetes(ADA)>/= 6.5% Diagnostic for diabetes(ADA) Glucose mean value [Mass/volume] in Blood Estimated fr om glycated hemoglobin 128 mg/dL <126 H [facility] ID Date Data Source [id number] 05/13/2020 05:13:44 PM [facility] Value Range Interpretation Code Description Data Tere rce(s) Supporting Document(s) Glucose [Mass/volume] in Capillary blood by Glucometer 89 mg/dL 70- 140 [facility] ID Date Data Source [id number] 05/13/2020 05:14:46 PM [facility] Name Value Range Interpretation Code Description Data Tere rce(s) Supporting Document(s) Heparin unfractionated [Units/volume] in Platelet poor plasma [facility] [id number] BY [id number] ID Date Data Source [id number] 05/13/2020 05:14:46 PM [facility] Value Range Interpretation Code Description Data Tere rce(s) Supporting Document(s) Prothrombin time (PT) 12.5-14.9 [facility] CALLED GIO PETTY RN [id number] BY [id number] INR in Platelet poor plasma by Coagulation assay [facility] CALLED GIO PETTY RN [id number] BY 9418 ID Date Data Source [id number] 05/13/2020 01:20:22 PM [facility] Name Value Range Interpretation Code Description Data Tere rce(s) Supporting Document(s) Consultation [facility] VOUHCp4lKuEYCkXa74/DQSjmSMWmu0OtRArzODf2HLiyBIAiP6AeWHR3fY4dRJC4IKjHDeWoAuVaNeQu lbm [file] PERSONAL INJURY PARALEGAL/FGo3ZzgdJOmr/WgY/eBZoPKvz+FYQc71jfsvj7ew+I0b3k2YTjq/q2V+T30nvno/I+CzwUM0SCnIg [file] cardiology rn+AXOhgWBlMWHmNyeIkiRf1bB0yrIWsiU91YM6kJ6DraHWO3+uD9bv0DpJI+62ap1x7zBeV8eVRHbO [file] ThWfDePJCeFlD5QcThQMPtOoXoIsKdQgFqZI2MIp3JYmW9VQB8jVFnLc9MRcn6TPqBRcIvYE5GOFf= ID Date Data Source [id number] 05/13/2020 12:52:01 PM [facility] Value Range Interpretation Code Description Data Tere rce(s) Supporting Document(s) Glucose [Mass/volume] in Capillary blood by Glucometer 162 mg/dL 70- 140 H [facility] ID Date Data Source [id number] 05/13/2020 09:37:36 AM [facility] Value Range Interpretation Code Description Data Tere rce(s) Supporting Document(s) Glucose [Mass/volume] in Capillary blood by Glucometer 110 mg/dL 70- 140 [facility] ID Date Data Source [id number] 05/13/2020 06:35:02 AM [facility] Value Range Interpretation Code Description Data Tere rce(s) Supporting Document(s) Leukocytes [#/volume] in Blood by Automated count 5.2 10*3/uL 4-10 [facility] Erythrocytes [#/volume] in Blood by Automated count 3.46 10*6/uL 4.6- 6.1 L [facility] Hemoglobin [Mass/volume] in Blood 10.8 g/dL 13.5-18 L [facility] Hematocrit [Volume Fraction] of Blood by Automated count 33.1 % 4 1-53 L [facility] Erythrocyte mean corpuscular volume [Entitic volume] by Auto mated count 95.7 fL 80-96 [facility] Erythrocyte mean corpuscular hemoglobin [Entitic mass] by Automated count 31.1 pg 27-33 [facility] Erythrocyte mean corpuscular hemoglobin concentration [Mass/volume] by Automated count 32.5 g/dL 32.0-36.0 [facility]th[facility] distribution width [Ratio] by Automated count 15.2 % 11.5-14.5 H [facility] Platelets [#/volume] in Blood by Automated count 144 10*3/uL 150-400 L [facility] Differential cell count method - Blood [facility] Neutrophils/100 leukocytes in Blood by Automated count 65 % [facility] Lymphocytes/100 leukocytes in Blood by Automated count 18 % [facility] Monocytes/100 leukocytes in Blood by Automated count 12 % [facility] Eosinophils/100 leukocytes in Blood by Automated count 4 % [facility] Basophils/100 leukocytes in Blood by Automated count 1 % [facility] Neutrophils [#/volume] in Blood by Automated count 3.35 10*3/uL 1.8-7 .0 [facility] Lymphocytes [#/volume] in Blood by Automated count 0.94 10*3/uL 1.2-4 .0 L [facility] Monocytes [#/volume] in Blood by Automated count 0.59 10*3/uL 0-0.8 [facility] Eosinophils [#/volume] in Blood by Automated count 0.22 10*3/uL 0-0.5 [facility] Basophils [#/volume] in Blood by Automated count 0.04 10*3/uL 0-0.2 [facility] Nucleated erythrocytes/100 leukocytes [Ratio] in Blood by Automated count 0 /100{WBCs} 0-0 [facility] ID Date Data Source [id number] 05/13/2020 06:57:16 AM [facility] Name Value Range Interpretation Code Description Data Tere rce(s) Supporting Document(s) Bicarbonate [Moles/volume] in Serum 18 mmol/L 22-29 L [facility] Chloride [Moles/volume] in Serum or Plasma 100 mmol/L 98-107 [facility] Creatinine [Mass/volume] in Serum or Plasma 4.10 mg/dL 0.70-1.20 H [facility] Glucose [Mass/volume] in Serum or Plasma 111 mg/dL 70-140 [facility] Potassium [Moles/volume] in Serum or Plasma 5.3 mmol/L 3.4-5.1 H [facility] Hemolyzed Sodium [Moles/volume] in Serum or Plasma 133 mmol/L 136-145 L [facility] Urea nitrogen [Mass/volume] in Serum or Plasma 63 mg/dL 8-23 H [facility] Anion gap 3 in Serum or Plasma 15 mmol/L 8-15 [facility] Osmolality of Serum or Plasma by calculation 295 mosm/kg 275-300 [facility] Creatinine/Urea nitrogen [Mass Ratio] in Serum or Plasma 15 [facility] Calcium [Mass/volume] in Serum or Plasma 8.9 mg/dL 8.8-10.2 [facility] Glomerular filtration rate/1.73 sq M pre dicted among non-blacks [Volume Rate/Area] in Serum or Plasma by Creatinine-based formula (MDRD) 13 mL/min/1.73m2 >60 L [facility] Glomerular filtration rate/1.73 sq M pre dicted among blacks [Volume Rate/Area] in Serum or Plasma by Creatinine-based formula (MDRD) 15 mL/min/1.73m2 >60 L [facility] ID Date Data Source [id number] 05/13/2020 08:16:47 AM [facility] Value Range Interpretation Code Description Data Tere rce(s) Supporting Document(s) Troponin T.cardiac [Mass/volume] in Serum or Plasma 0.06 ng/mL <0.01 H [facility] ID Date Data Source [id number] 05/12/2020 07:53:49 PM [facility] Value Range Interpretation Code Description Data Tere rce(s) Supporting Document(s) Glucose [Mass/volume] in Capillary blood by Glucometer 81 mg/dL 70- 140 [facility] ID Date Data Source [id number] 05/12/2020 12:59:17 PM [facility] Value Range Interpretation Code Description Data Tere rce(s) Supporting Document(s) Leukocytes [#/volume] in Blood by Automated count 4.4 10*3/uL 4-10 [facility] Erythrocytes [#/volume] in Blood by Automated count 3.23 10*6/uL 4.6- 6.1 L [facility] Hemoglobin [Mass/volume] in Blood 10.1 g/dL 13.5-18 L [facility] Hematocrit [Volume Fraction] of Blood by Automated count 30.5 % 4 1-53 L [facility] Erythrocyte mean corpuscular volume [Entitic volume] by Auto mated count 94.5 fL 80-96 [facility] Erythrocyte mean corpuscular hemoglobin [Entitic mass] by Automated count 31.3 pg 27-33 [facility] Erythrocyte mean corpuscular hemoglobin concentration [Mass/volume] by Automated count 33.1 g/dL 32.0-36.0 [facility] width [Ratio] by Automated count 15.1 % 11.5-14.5 [facility] Platelets [#/volume] in Blood by Automated count 140 10*3/uL 150-400 [facility] ID Date Data Source [id number] 05/12/2020 01:14:53 PM [facility] Name Value Range Interpretation Code Description Data Tere rce(s) Supporting Document(s) Glucose [Mass/volume] in Capillary blood by Glucometer 141 mg/dL 70- 140 [facility] ID Date Data Source [id number] 05/12/2020 12:11:07 PM [facility] Name Value Range Interpretation Code Description Data Tere rce(s) Supporting Document(s) History and Physical [facility] [id number]/CRQhbOJAxr3JsWPvdQHk0HCqcYMEgQ6DmCUB6pM5sHDL6QScUFzSdUdGqRbM2 [facility] [file] CiAgICAgICAgICAgICAgICAgICAgICAgICAgICAgICAgICAgICAgICAgICAgICAgICAgICAgICAgICAg ICAgICAgICAgICAgICAgICAgICAgICAgICAgICAgIC AgICAgICAgICANCiAgICAgICAgICAgICAgICAgICAgICAgICAgICAgICAgICAgICAgICAgICAgICAgIC AgICAgICAgICAgICAgICAgICAgICAgICAgICAgICAgICAgICAgICAgICAgICAgICAgICANCiAgICAgIC AgICAgICAgICAgICAgICAgICAgICAgICAgICAgICAg ICAgICAgICAgICAgICAgICAgICAgICAgICAgICAgICAgICAgICAgICAgICAgICAgICAgICAgICAgICAg ICANCiAgICAgICAgICAgICAgICAgICAgICAgICAgICAgICAgICAgICAgICAgICAgICAgICAgICAgICAg ICAgICAgICAgICAgICAgICAgICAgICAgICAgICAgIC AgICAgICAgICAgICANCiAgICAgICAgICAgICAgICAgICAgICAgICAgICAgICAgICAgICAgICAgICAgIC AgICAgICAgICAgICAgICAgICAgICAgICAgICAgICAgICAgICAgICAgICAgICAgICAgICAgICANCiAgIC AgICAgICAgICAgICAgICAgICAgICAgICAgICAgICAg ICAgICAgICAgICAgICAgICAgICAgICAgICAgICAgICAgICAgICAgICAgICAgICAgICAgICAgICAgICAg ICAgICANCiAgICAgICAgICAgICAgICAgICAgICAgICAgICAgICAgICAgICAgICAgICAgICAgICAgICAg ICAgICAgICAgICAgICAgICAgICAgICAgICAgICAgIC AgICAgICAgICAgICAgICANCiAgICAgICAgICAgICAgICAgICAgICAgICAgICAgICAgICAgICAgICAgIC AgICAgICAgICAgICAgICAgICAgICAgICAgICAgICAgICAgICAgICAgICAgICAgICAgICAgICAgICANCi AgICAgICAgICAgICAgICAgICAgICAgICAgICAgICAg ICAgICAgICAgICAgICAgICAgICAgICAgICAgICAgICAgICAgICAgICAgICAgICAgICAgICAgICAgICAg ICAgICAgICANCiAgICAgICAgICAgICAgICAgICAgICAgICAgICAgICAgICAgICAgICAgICAgICAgICAg ICAgICAgICAgICAgICAgICAgICAgICAgICAgICAgIC AgICAgICAgICAgICAgICAgICANCjw/sWMwE0axsMFzcqB1N5etKi2ZKp1MHD6qg9HhILZnQJrzwgTfRf wJMhEeWNNbMtcBFlb1IOfgIL8PhMPiR9KqS5ApEXwkTX6VLBBbVSJyfFDuUVHgOUPnHsZ2IAIvROmvRI 9LaWRzIFsgNSAwIFIgNyAwIFIgOSAwIFIgMTEgMCBS LBNfYZXgKgTdLIPtAQNwYFyxAAMKVZ1LNnRgM1YyvY27NHwVZs0+JDxmmtDqHdgUPqLvXHEpr6QkHIk4 GL6AYYQyMrgfq3SoXWGlFATQIDneEA4OGCF1FOVyFSZuAy8WLDLtV624ufCxFU3OIk0IPtSyPU8ske0V QOYpAKAkOufFNtt6QSdmDP3BtKRcJYnNDnCqZacrXk YbDXgfEBM4bfZerGBxzsskFVSLGcWeuGJpYnZ1NnLuUuHvLJO0QJBjXW9oONomQP0YSCG8RAjrOUEeJE BaJ3nGKtRuSCZyXfJnwTgkPK6NAnFfU3KimrCdpWM1PULsPVAANr1+XWzszqAqYkgTQkEkUYKem0PwPQ d4QV9AWBVgQFhxJM5VRMHopN7pAAlyVY3UHkGgHJPz IETNFyOdA69zaRFsNNl7E9GxIyTeKVCoJujhEPHnAOhyQyXnEUUhVfBfYSgiNP3+ID4+RNuhRK7WKZbw myWqOOMrBd9BEOOdVPVsGO8cBJLnGHRvO5C5zKfkNFQVQvNpM5bzatyoAH4cKIVkV756vCggniMiRPTd PSSqCy1VAEYuHBD7HIUsdFAhIlziBDJWHFfzWC5XyA TjBOB0zX5uCSqjMLAxHKSaK7ySJvNbvLtcXT99rXvizbDohZUxUQg+Sa3TBM4iy3YlRDk1htXeSQgfAM QgKXcnUFKeWXOiSRYmVAU3LLJ6FZWRDpEtTKUmTARvWNrrZEQfDBQaen1PPGWbTJD1MIurHmWpMTYhSK BvHIosIYJaASP5IXxgWSQdVLBtKZ9OZgZyJDEhIMMi WGxiQWFeOELldz8WTQYaFONuJPyuNjPnYCAnKLOyNMsfQGIzAVE4JBYyKYApZBLkNY2SDdMiNWKmKTyw EGGzLHMnZANvgj4WZVCrRPKzSBF5HWRcDPPdVWDqWKutPXBxRCFnXoB9JKCnIHLoSR7KYwRtUTFpKDU2 TLYvWKGfBNOgyr3WCBEuYZXqKwGgEUDnWNPcUTJcKR azGYXmRGU6KaX3GKWsERYtKQ5CEzEnJKYdEuAvLclbFSTeEWOvfz3MSYEyBSAgKLI0DcImWHBnMSKzQT rzPCCsFNMqSRHmRAEiQKSnHQ9GZdBqBWSkKmYwOWujLFZtCIVluq9PKBJgEBQaBPC3QuEtSCQvKEUwGN ptDJNoFNZ5Wap5WOTeECEwVO1IFiOtFARqDzD1JFhw YLOtFLNyhr7NKEOwWFJaRrs9ZxJpZMFlFFJeANiaKEYzUMG4WMA4UBXmRFVoRT6ZUhVuNCCpOkfvRSql TMJbCYOdzf5ZMQNoAVRsJAOpPVWoLBMjYEFlQUucNIUzNDV0UFi5BCHvUCHgFT9KRhCiCKOsJnp3YNmj GDMoBMVcop4CTSRoCVJpZFK3NTGhUFIsANIsTNdpXY ScCUV4FSI4TLSxFAQdCL9WSiEfLLLwZrK7OTiwKFFeDGApnk0LVXTrKBRlWVb2IMIkERIkNGXxFXkeQY PvNZUzQAr3EDKcTUAiJA6PIfDsVRHpJKJ4HeGbIIMzHBKitt9KIELyGTB3Iab0AYMjUBCrBBQxLHkrUR NfADPwTAd8HWRpDOFwHV5VArZjIUOwRUJcTnacWZDo ZEEpwt3HVSHjLZR3WzN8GPFiDHYtNPJxTSumHRXaFQI7MJK3PHOsMTLeEX1IDzWsEDYwJUB8FVOaKNPh JDLjgi8WBAAnACT2BFo3KNJgJOMvRVBuSMimOTGlHZU6NaIpPKEoUPYpMY1SJaEuHCBhEAI8LDIbTSSs UCKshc0WGNZeHCT6Bjo0ZqPqCZDtTXHkTTvkPGVlOU Q0JVH0RNZmKQAvIT0VEgZjIObkEVXXEfv3VGhrQ5x5FCB6Hs9YS5Otn8QrFGYeQIUAEAxvGF3nwtPsUT NgEo6QY7pCGdfnXkFrYiT9ORK6YqPdWoIcXZcnIPmgCYL9OQw7PJqiPN5xZTH8L8VtKuA2LBgaObNlOD VrNYEkH9M5RPq0FZG3SjU7TxZsPO9BTa0OHjC3LXC1cOFvWl1HYEpqAbqKZnVoXP5MJMk= ID Date Data Source [id number] 05/12/2020 11:09:57 AM EST [facility] Name Value Range Interpretation Code Description Data Tere rce(s) Supporting Document(s) Color of Urine [facility] Clarity of Urine [facility] Specific gravity of Urine by Refractometry automated 1.013 1.003 -1.030 [facility] pH of Urine by Automated test strip 5.0 5.0-8.0 [facility] Protein [Mass/volume] in Urine by Automated test strip 100 mg/dL Neg ative A [facility] Glucose [Mass/volume] in Urine by Automated test strip 50 mg/dL Neg [facility] Ketones [Mass/volume] in Urine by Automated test strip Neg [facility] Bilirubin.total [Presence] in Urine by Automated test strip Negative [facility] Hemoglobin [Presence] in Urine by Automated test strip Neg ative A [facility] Leukocyte esterase [Presence] in Urine by Automated test strip Negative [facility] Nitrite [Presence] in Urine by Automated test strip Negati ve [facility] Leukocytes [#/area] in Urine sediment by Automated count 94 /HPF 0 -5 H [facility] Erythrocytes [#/area] in Urine sediment by Automated count 8570 /HPF 0-3 H [facility] Bacteria [#/area] in Urine sediment by Automated count Non e [facility] Mucus [#/area] in Urine sediment by Microscopy low power field None [facility] Hyaline casts [#/area] in Urine sediment by Microscopy low p ower field 36 /LPF None [facility] Crystals.amorphous [#/area] in Urine sediment by Microscopy high power field None [facility] ID Date Data Source [id number] 05/12/2020 10:59:30 AM [facility] Name Value Range Interpretation Code Description Data Tere rce(s) Supporting Document(s) Leukocytes [#/volume] in Blood by Automated count 3.7 10*3/uL 4-10 L [facility] Erythrocytes [#/volume] in Blood by Automated count 3.12 10*6/uL 4.6- 6.1 L [facility] Hemoglobin [Mass/volume] in Blood 9.9 g/dL 13.5-18 L [facility] Hematocrit [Volume Fraction] of Blood by Automated count 29.3 % 4 1-53 L [facility] Erythrocyte mean corpuscular volume [Entitic volume] by Auto mated count 93.9 fL 80-96 [facility] Erythrocyte mean corpuscular hemoglobin [Entitic mass] by Automated count 31.7 pg 27-33 [facility] Erythrocyte mean corpuscular hemoglobin concentration [Mass/volume] by Automated count 33.8 g/dL [facility].0-[facility] distribution width [Ratio] by Automated count 15.1 % 11.5-14.5 H [facility] Platelets [#/volume] in Blood by Automated count 141 10*3/uL 150-400 L [facility] ID Date Data Source [id number] 05/12/2020 10:32:17 AM [facility] Name Value Range Interpretation Code Description Data Tere rce(s) Supporting Document(s) Thyrotropin [Units/volume] in Serum or Plasma 5.840 u[IU]/mL 0.270-4. 200 H [facility] ID Date Data Source [id number] 05/12/2020 08:59:20 AM [facility] Name Value Range Interpretation Code Description Data Tere rce(s) Supporting Document(s) [facility] VOZQPt6kIaROEaUsp3RoFkAuKJSkUR8fnkj9D9G5tBVkW6VnoCKyl3nzV2PuK5ZsKCVwNPEZHO1LpDPq jb2 [file] /gK/gT/Ak+byl6s1YxqOxH/puoF8llnq/jorge+lIu4h3h52OzuM+XL/K/5qt83RXr2HNldvMf/cb+tWTIK ukV3Srba/BX+Ji6Ob0E+dZX0bE7qIcQHd5GaFaxn+usyCtbNAC9Ax8S/SrUwZ/gI/tFe1fcRQg9U/wF/ aQtTza4Zg1VrYjNZfWm4HFnO7qTg889LegXhKzCkgg XwW/9ElJ/SrLNV+FfnXKNb+CyaVohZzjXNhByphG840jX+4lCVAOpMjhm074pJLs/VbfFqv7Y3A+JdCv JPSrLA/wS7+S1K+Or287G6TDIBK5axuw4GrwLNYGmfC7hanAZQrpglmyP99u+D26Sk6FM+P99Wq7W/wB voKv4E/w/TmuaCErTs4VVY8/3izv5/vu/mkG2oS6in 7780ad+6r6dwO/gS/i28a2SI/aj38PVqYL66Z5puj+go/3u/F+82W9qW11e6/Bx/vdeL+G5zU8r+F5rZ P5NQ7Tip+4Hu/H6VxyB6G/NfTn1K+CX/qV2AR/1bhI/SrKG/pB1x803Vzdb/XI7+s+VoqlVqbHt0k4WV DzAmf1s/ews1fhTQcXm3dky8+xBtcm0VMqxj8Yu/x5 r+YTBn82s6hbf69q/ID7wjzxBHc3X97Wb/1m3jFXOw/er/vSPOUOfn/6iYvgyKHV+KMCQTd7Vr0Rj0U/ wN/gb/AN/BwO0xjs7uaRq712hffxX/zAQw8dlTYY8fJ1y+M5Ey5voD4P3gfeF/U9KwpwZxzy7G7carz+ +pYry73d+3nPWcqg3I3OT/eO3GI0BiNeG7O8s1/BH+ XV1PL9Lxt6PG3Rc+hXV/Dj+flnIf1W9yD0zDR0wpuz2nzmhp6kQwFAt4EtgIkGwtsBz38gdFVIa0X/wB /gK/iK+fb8819tH8nXy+x9xnmRTxJ0efwN36k+hn5To3ouM63F879mzeO834lj7ojEdadTKwhcY50m/h blF39l/eNed7s+833eLqYI9w6DCxwEt567mj6B1/V+ 6Hnk0yRxqdx5S+eoW7+1L6e1ksm9Yn98b0K+PyB3+U4PwT4raWcq57a00xry828T3B3l7jN9ln/iv9Pt Y3z34ybtwr/QKN/tjP5/84rEREema8SaUFW7feoLCCz0hd462rm1kRr7+10lkA2v7h3hw8r3r/u3+[employer]/PayFD16+yUlAa0xuDoFhNg1KHNi3n/cvlo9MiZ+ fC7sMloaif2v55fBFA/A5+tvgwhBS14P82i3jgMm+Q48rVRqwWSFGWm7P/wN/gb/AN/WKOcyJOwlNy3X wehfn70jD/4Z0dLMPnY/nsrl+l3EK/yzbcM94H/QeaPemK4Ab49Ly0Ng3k64B2+sb43bW/0EO/ijkh9K fqs487oeK7rh+n0SCzer9QHpAh9EfqH/lp8qx5VPeH 6FdZntXfQr+KZw/9KmQS+lXIyjA/h04InnU57am//HGV/XmE/tqh9eklg6AI/UqCX+88rJ0nP1/s7SPs Jr2n0mx7ys/9eQTf+/Mpgz/Bn+CBvn9mnj9gdU0O/LJvjLBfreCXPWeE/crH+wj71Q6+P68F35/X5+cR 9qtTBr+D38G/p1r9kYq+T22a5KUF+ea3uOZ+3qcM/g J/gb/B3+Ab+FZ816+pgeD6Dn6lINSxVfoIky/1q6cM/gd5kU1O3Ao0s7Hjlx8O2Y8rfVEntLDiCO+Rmq +ZzG7ibK3z+jMKlwiM3h2Ohavvv1r5SSK/OOqw30nnJ2p0pUqPw33/zd7m6Xf0ed2ZH/AV/Al+2Z/dpe B133D3FkuH7qvT/Wr0sj+T7K0PnE709UtVs6j2uP6V gZl87dIgxc8l3eIO5PtD93U0kpKw8nbfZ/Anrl+oZ6GdG/sJ3q82MV8XlF+9wG/gN/AF/Pr+Xl5m37ZP /gC/9o+V3n2IpU4d9WE/gr/AX+Bv1I/wTgmUqrZ8n6i86ACN/moEknDC8WR6zzvphRaxi1Y4zYW1aGP5 1cD+9AkaubS5qS4wY/gL/A3+Bt/Ar/13kuU0kI1LM1 sirnlmw7s+s2p/m9nxP82eM+V/e/XzsF+lvsa83Sk7kkBurubEc1X+dcrgb/DxfsN+mxsD0cd/+wK/gd /AR3/e6M/Ae5tqYlD53mPGfp/IZ3ceVtdT8+0ufdLdPaoM/gZ/13d/1/1Zm4xrsz3NghWH02gOCix6Gv zPG/pVyMHq/MawWv+O0K/xCJggs5X3uRFN/gR/gr/A x/zy8hmjh2/l44XkHykF0ao8yy5AhK+dMvgCfvVnvao/j5obRpOSzIU8Rv9DJ3PHDE3W7Qseb/A3nstQ g38H6em4qK4Zr4Lt0w7zYg/ABgzyFSvMZou0m6Aa9gdy1vjQNnVdn8KtqpPOpZ6fw57XIphifKB8CW9z fAO/9A2N/cFTBr/VfaW+BthKfeV6D9Ixcx/k49cUfj v2o3IA7UfCbXmjTZjBWD4n15jpczQZPw/Ar/0K3hkQdD5wksKLlq0P670PRiA74nvar89weL50Vvhmz+ J4V16578i4itzk1Pi8G2jBY773pf8KnQ/vyXjoSD3P89frEi5016e5PmqHl6Qv7Mv5H3bL10KkG/1KoV /pwPMOPO+z98ZjhI4VY/Ab+A18AV/CT55SfF/FfKVl v6V2x5QYf7mVog1sIuvn/C98cj57a4ZBU8Y7FPOxgZ1pDHog+4hCEhow93DT05Woy0EavuZOVOFd0l0L 3Hi8G6BKIMYAwrgarGDkK3vw06qcR2v0+KmapUV9rY8mQwyrAlXrGMyMi2WanRf4pKHAWpwrUoFt3/4U udsxo6lpdx/K93NlG+6cgTQi2sclPwOq6/v8P5M4c6 HOBNI7ZzeZLyqamrQS3644GslGoMlibV4hj0JeF8kU6K4+s6l7guo/BEENA/0ijXfqiuOi+qC/6U889G+p SMk4PQ0joN+1WWN/gbfAO/7wt4b56r+wK/gV/5Lo71Bmj3my7A8Cr1D/gD/TV82zuoroH7M52SubewM/ vjlX09nSq1q59xXh+BPkP0kecw5s2iE/gN/Aa+gC/g d/Chb0C/HbR9EYAoR6P4Fnzsq/u10p/dI+MAb6t7sGG/AqufgC2Jv/OxM+cNYq9a6F3n+VOilZzlR38X jGsfx2Pvmh/uH5NC22CmpqFdkz/71bzq/MYM+1FQto04qIc31Bi+P2+ULirtV87wH26k+N11Zh2KG+D7 89KttQ394gk4yJNAsO6fs37iLNpe9nmjcv2iwm31lg 53WYV+FbJqZX+tokpAn3O1xJhCkwjTx6+k30AM3iiOAYKgwQd7XljwdmfFrU/B+xUFf4I/wV/g92ptCJ LvpOrdn2LkP0+kT4cxg0YnkU8k5zlG/Aa+gC/gd/A7+HI60p2h1TdY/Kn19ullP/vz7LU+io3y5fUByl /4awbWCqo28xnyWrmF0+e4wG/gN/AFfAG/g9/BH+AP 8BV8Bb/Dx7vB7sqnlVNxm9L+7ch2ekilz5dSf56lcVZ5+zA2J9uNCecMRR7eT/AFfH/rJuC8746Uw/Ox M/SrUwZfwVfwJ/gTfD//bFG/87cN3JQ/aJJ98ik47tikML833L7C+tt0+1Ws2K62cSfx1eo4r4yxMilA F/A7+P43aV93b+o7e7WDamknp8Q2ed/E64b74jDvlZ gGpjTpHqwFNQYh5DxnE62nosiwvQ9F9ahhF0D3tg8GnZlS+E324qxFDR7v+kinQ4yW0ML6Iv6Eb95vcP Czmpes28yztxYJmYb+Jorge+uGfarLDfwG/m93gwzXk5m9/jKdEZDC8H7P/sq76u9LnmPz3l1WofJ31jZm7 y/LsVMuagp3LOqT0Leed2osQ342WaHf+JM/uF5MiFz 8bzOXdYovZ9dcf9cwei71/DfdVWMgpx7I2szWmdIP6Fm5U/UU/vd0/DwNapx6yZz26+afkM0Xab/uX4V 41wsrY9hiQ07aHPa5Ze0arD+dQU/5qsoK/gK/gR/gr/AX+DX+Z77m4CbR4/Z8al18CwI98Yw3hyqef/V wxajtX7cZE+0uB1xvqWcPHx+PwcuX8m/Uc+6UAZ/47 29PHezrukr3bzrBk1CT/L8xr3dLNezs5Of9Fk8DrdWxgztg/I8FbK9MN+WnAXvV+p83ZJV/AygE0wyuS 7vN+xXUX+i72Vp3SiLkpQ97NS+m44Y2O4+r/of5edXqk/2yfL7l7B34m7cnTG96dhCS+Oo5Kg5E/zSr1 kgW935cGDaIsa4tgIebl6x9ccB56jA+sQZbqYBp7b4 B+qv/aJ2zz2jICA/gj/BX+Rx9Bj1X4xRw63yHD9/sqUX+B80Os6cfe6d1h/JamifQixn5vCWMx20hfO9 b7YU/wj7r5qsV4nswe8/jxT9x+2GCqlqch0DR9Wq+0Z9gfxa+0JFz7I60zR1urE7LugQkticdk2ctija 5Dc/l+BjjOlvbi07V0i6f8729wi0R4Xx3R83C1tV/S r/W/5lK+kEUk4tmhRokaT3c6odQzaj8XWN52/irNpy+9XI+t1eN10+br+xhY29l6D2d+6BPiDobc9o+9 rnbkYaiefkP8nr/mXxTsN+xeo419o3AK/Y35at19PM12hGjearse34PSvo3H0KWvjVRph58RyOe1fDo5 9U81YXzh0GtBb/Nd3ns08v5sfK/cGF/dZ3jf00fkf/ gz/AH+Ar+Ar+BH+Vz2MBx014C/AStzW9aoH+7acsK3/wXooN0c4jS4vneK/gC/jl77ys/FOW1Xp/2QBf vb1fafx8N/dN41f4u8oH/bUfusJ+QVZvnu6eX+VPt68L/AZ+A7/4nVaAq2zG1Ra9C+2eY14pi9/Vvsqf ox5Mu1ZinO0kM+VPt8N+leUFfvmXbdivNuxXG+evNu Yh3EyBCORMo68lbbme9QL5Tl+jHjwv/Ac3/Zn10qNo+A9u+A/mdisysF7O84352jnenSR+8et56TxoHG JftPcjZ7wY6705gT5rqPyT+asWZT9/1eIaP3+V5QH+AN/Pm+V//bzZFfyJ+u82ANKZ+Pm1Ua0OO/15T1 caQqs71JbL746zkv87whwH+OUvucN+FTIM+4Y1v808 uj1outiOU1zf++Tu5U+3+wR/gV/+epb8G4R1sw1tkOyw9vk5H/lbKw3BW/q6gN14p//qAHBt0Ys9eVU+ B9e0kUT25LtonbKBX/uDe9T+/x61xc8lG/xExa85bT9n1Bre+zVXihIsD96fTmr43IN+zgVn9eIw/Lu2 Q7/Kcge/gz/AH+Gq2l99PPtmHjQFHw+uoyxISut5Y/ vZxxCs4au2wX/vnrWfsnH+yf4003gckAcrjcv4C/fsqGeg/xG1Ali32Yu1hm73c2b/2rP2u/es/f09a7 9sz/18l/e0C+YvkowImAtzB3thiv8Ev7+kwwjhv6XisZo/XnUeaa/6/c7R7Jf8fS+OcDdm696J/Npf2L E/mOWN6+v7u3G+fcf+GHrLyxF7I9/Yu84/713nkfau 8/le97212mj9gh1ktD/aOH+1cf5q4/yH5gP1zKxR5g+2T11faeMve4q8us5ga70b3G/s0K+aIkF4bnhr bQK+gI/ntQ7+AH+Ar+Ar+ZY1Kx2lNPyhU/uB62Oexk99Qc3IIDCoyh8L/WrNAxYtlKlsj97Xczi/gz/A r+l0z69JTf/k05aAn9GDt9FQb8ZHc5BRPx+DX+eR7C f12VhwD4BF66selOlzjszqzG5qLwmEpy87Nt3Mg4Qw1Hm8A/wJ/gJ/gV/rlvkKh5Lm3ZC8Fy4v8G7I5q aQQn9BXqX9Ava1N0UMU8UwB0whJo+SYKc19j9Bmq/FXL+68npf7+x8ge0SlBCHB40yo04+XiXvtR9/Lh M/rzKC7+dVgt/9vEpc3/28StTT/gcOjzzc4c1/Meghann+ [file] Q9Ih5Apoip3eMsgQBBcmDsDn4JIt+16nGeY6WFKwc0i0vLuVq+nnLlxCDynCvHcyuSrqTnVmRduc5/العلي [file] OTcgMDAwMDAgbiAKMDAwMDAwMTQwNiAwMDAwMCBuIA nhLPQpFZY4SgD0IRMcODMrPM6kDcXyPKZaKXK3CTpnLIWsAFGitkMRLQObZGAvURelUEPbYFKxSRRnVU fxYPLoUZGgVZH5NGLqKHBwNU7qOjPoMIKmIJIhBLJvFgL3OzVeHmMXyAXxhLngrfp0IZssP5l1QQLyNK sbVN7egqSdCWInNarrOg0qbNU6CKKwQwtBSq2Se8LxhiD9oqQcVkN0CGOpNyQzLZ8J ID Date Data Source [id number] 05/12/2020 08:58:49 AM [facility] Name Value Range Interpretation Code Description Data Tere rce(s) Supporting Document(s) [facility] SAYADe7cAaUWRmNny0GuXdTbYJWmRE8gvfk9M6S2oWDnV2NzlJEom1jkR3JbB5UvZWOeTJVVGE7PnMAx jb2 [file] 0qiaeaxuuwYkuF22O0OK8/zMHxlzlMmAkTvwzxyxC/ FCWJ3JRmSIdStiVTX96N9OWh1bEHkUnwmKH8jdrp/GmrTRyYYxLBVbAybMAlXD30uKNpuD85xzPxnOy4 mw2s4R8rRnoZwfEvXSzClS27LGbF1s9CdbPLzExLCnnYUfn3FzYI0J39Sl637Kn1qG3nMrH3cT3ok7Mm 8d2J+B0KrowiqkWh7AI5H0tL+L3bSNuLZcYMZnh1x5 TmqhjuedCs56C9zKiM+L8tOWH5Cu0qAoGyqOmwFEW0TdnZHi0qepqVxAsxXp3LGgoZDRFfxNU0G39P9K 3LC8nKpqVL+GJx5N9yefmml5Jp20x0u7UlHECoAph7Ak+F5w/KvshXjxnRoHnt2V0k0x4Mf7/kuerIPH 4vnp7mYj1mV0rdIga6JT7kgt0pDe2pZcEBwUTiQNrX 8xNRLZRCTCUfA1mNqgJtTyu75d6C5tzoxV4XQmGYw7/yuLsqjy+jow1xfU/OIDBC3f5suW6kPA6dZqW8 wVDCO9PjS00oMVln4blU52EX7e549euqhStFYNz7S+V+eEL5m39m4O2awvu7Q34qcQhpauozWgyEU5T8 LjNvcv2SlddrSToWx/zLmai89zj0zY3y/R6qzT9Aal oRVoWJXzq/P5tkx3pXnMrBieHTa4Z+WaJ3F/GvNZMrvihfkwopLYuP12GJoEBEezsG5S6JzJ+W79HtiH lszsoA31jclNxozuZooDV5A+Qp1obS34JTbVuk0Ak2E/L1NfpVVTCK+W0ozeopw7iLrGh1cd6EwIoypn vifbqLXn1ZPWZS+E3VcYtA+H4rpRajr0ng+s/G3Kh0 lGUd8Jt/OubGr/X4Yxz929KAp/v+dhrhJH1tP2SSoe+DgC3ubk/6iLzO020a1Y1y8/iQP6qhHF8si68d 7hfL+العلي/9Gpm1rffMXps0ZiOh335CNt7zSZyVtojDmUYLFt4tKkZ7k5jXbe9OsZbuw6aT1bKzRyYxox3 ch8GagiU1gbB5Pe0KE1h5+G2dj3qf1fR+Wiyrluid5 yyV3wPg0iCBtoEIxCiXqSb3JoJb/jd90dtRV8oFv0uNm4BF8tAMv/sIUqsjkVARKJU1JP7vJ5puE5cIf 87yZnlQ9eG7qZc+O7K+Z25sjhfvaGrA+vChrAhDPFdnC/8graL+K5clJV6lpqvzfcwrcnyjlgzzmunIp fK609KiJtsBom7aSmi3e0Ul+zM1EqdJyolX1ovcing vG4daS+G6rIw6EoWLiTRcG9C8ltB5zI8xvdA1KATau+54W9bwfuiTyg+YBd+Q6VAa9pG+D9FSvPpHsl+ QSsEin4MkvP1RnhltsAs1Q7ykXkGuF/hLrzvcCO+O0LqUeo9olUG+H6GTelojvYbit2IyYmB3ek1Gqpa uvcoLwhIS2TYjgo1EnMvwuKdX2oWkRioUIxBX8W1L+ bG/q66Oph73rTO23t06/cBu/N4xK86c3fm4O/6SO176N+W4702t1kOg1I+XbQz2b+7G+7k0z50Hq+2hG [file] GnEdt1AfjrGZktSRSPMk== ID Date Data Source [id number] 05/12/2020 01:14:43 PM [facility] Name Value Range Interpretation Code Description Data Tere rce(s) Supporting Document(s) Glucose [Mass/volume] in Capillary blood by Glucometer 120 mg/dL 70- 140 [facility] ID Date Data Source [id number] 05/12/2020 06:55:51 AM [facility] Name Value Range Interpretation Code Description Data Tere rce(s) Supporting Document(s) Leukocytes [#/volume] in Blood by Automated count 3.7 10*3/uL 4-10 L [facility] Erythrocytes [#/volume] in Blood by Automated count 2.88 10*6/uL 4.6- 6.1 L [facility] Hemoglobin [Mass/volume] in Blood 9.2 g/dL 13.5-18 L [facility] Hematocrit [Volume Fraction] of Blood by Automated count 26.9 % 4 1-53 L [facility] Erythrocyte mean corpuscular volume [Entitic volume] by Auto mated count 93.5 fL 80-96 [facility] Erythrocyte mean corpuscular hemoglobin [Entitic mass] by Automated count 32.0 pg 27-33 [facility] Erythrocyte mean corpuscular hemoglobin concentration [Mass/volume] by Autom[facility] 34.2 g/[facility] distribution width [Ratio] by Automated count 15.1 % 11.5-14.5 H [facility] Platelets [#/volume] in Blood by Automated count 127 10*3/uL 150-400 L [facility] Differential cell count method - Blood [facility] Neutrophils/100 leukocytes in Blood by Automated count 66 % [facility] Lymphocytes/100 leukocytes in Blood by Automated count 17 % [facility] Monocytes/100 leukocytes in Blood by Automated count 11 % [facility] Eosinophils/100 leukocytes in Blood by Automated count 5 % [facility] Basophils/100 leukocytes in Blood by Automated count 1 % [facility] Neutrophils [#/volume] in Blood by Automated count 2.40 10*3/uL 1.8-7 .0 [facility] Lymphocytes [#/volume] in Blood by Automated count 0.64 10*3/uL 1.2-4 .0 L [facility] Monocytes [#/volume] in Blood by Automated count 0.41 10*3/uL 0-0.8 [facility] Eosinophils [#/volume] in Blood by Automated count 0.19 10*3/uL 0-0.5 [facility] Basophils [#/volume] in Blood by Automated count 0.04 10*3/uL 0-0.2 [facility] Nucleated erythrocytes/100 leukocytes [Ratio] in Blood by Automated count 0 /100{WBCs} 0-0 [facility] ID Date Data Source [id number] 05/12/2020 07:09:26 AM [facility] Value Range Interpretation Code Description Data Tere rce(s) Supporting Document(s) Prothrombin time (PT) 15.5 s 12.5-14.9 H [facility] INR in Platelet poor plasma by Coagulation assay 1.22 [facility] Routine intensity oral anticoagulation I NR is typically 2.0-3.0. Target INR must be clinically individualized. ID Date Data Source [id number] 05/12/2020 07:09:26 AM [facility] Value Range Interpretation Code Description Data Tere rce(s) Supporting Document(s) aPTT in Platelet poor plasma by Coagulation assay 41.9 s 24.0-33. 0 H [facility] ID Date Data Source [id number] 05/12/2020 08:27:08 AM [facility] Value Range Interpretation Code Description Data Tere rce(s) Supporting Document(s) Magnesium [Mass/volume] in Serum or Plasma 2.0 mg/dL 1.6-2.4 [facility] ID Date Data Source [id number] 05/12/2020 08:27:08 AM [facility] Value Range Interpretation Code Description Data Tere rce(s) Supporting Document(s) Bicarbonate [Moles/volume] in Serum 23 mmol/L - [facility] Chloride [Moles/volume] in Serum or Plasma 101 mmol/L 98-107 [facility] Creatinine [Mass/volume] in Serum or Plasma 3.15 mg/dL 0.70-1.20 H [facility] Glucose [Mass/volume] in Serum or Plasma 126 mg/dL 70-140 [facility] Potassium [Moles/volume] in Serum or Plasma 3.8 mmol/L 3.4-5.1 [facility] Sodium [Moles/volume] in Serum or Plasma 136 mmol/L 136-145 [facility] Urea nitrogen [Mass/volume] in Serum or Plasma 46 mg/dL 8-23 H [facility] Anion gap 3 in Serum or Plasma 12 mmol/L 8-15 [facility] Osmolality of Serum or Plasma by calculation 295 mosm/kg 275-300 [facility] Creatinine/Urea nitrogen [Mass Ratio] in Serum or Plasma 15 [facility] Calcium [Mass/volume] in Serum or Plasma 8.5 mg/dL 8.8-10.2 L [facility] Glomerular filtration rate/1.73 sq M pre dicted among non-blacks [Volume Rate/Area] in Serum or Plasma by Creatinine-based formula (MDRD) 18 mL/min/1.73m2 >60 L [facility] Glomerular filtration rate/1.73 sq M pre dicted among blacks [Volume Rate/Area] in Serum or Plasma by Creatinine-based formula (MDRD) 21 mL/min/1.73m2 >60 L [facility] ID Date Data Source [id number] 05/12/2020 12:25:55 AM [facility] Value Range Interpretation Code Description Data Tere rce(s) Supporting Document(s) Glucose [Mass/volume] in Capillary blood by Glucometer 106 mg/dL 70- 140 [facility] ID Date Data Source [id number] 05/11/2020 11:43:34 PM [facility] Value Range Interpretation Code Description Data Tere rce(s) Supporting Document(s) Troponin T.cardiac [Mass/volume] in Serum or Plasma 0.06 ng/mL <0.01 H [facility] ID Date Data Source [id number] 05/11/2020 11:55:41 PM [facility] Value Range Interpretation Code Description Data Tere rce(s) Supporting Document(s) aPTT in Platelet poor plasma by Coagulation assay 76.3 s 24.0-33. 0 H [facility] ID Date Data Source [id number] 05/11/2020 08:25:55 PM [facility] Value Range Interpretation Code Description Data Tere rce(s) Supporting Document(s) [facility] ZNWHTy5aKwHMVfPj41/PDOqiUSIiv7DiHRdiIXk9WEqhURPeV5LyAKH2zL2nTDS7MBrCQxIcUmGlPtA2 [facility] QfLubOYvDcFGMxUqkZVrJdGGwpTruviNLfIG3RuNP7EAUdJ20tMSDtNLMkM4BbUENeYoN+Ot6QGZTatI CyRM3PSdzL1O5en0t8Mw/obvdsEMGYw3WY7gS5yp4eeG9ROW1w50PTssuBqClKzAZnKF4m968jpDlz2x C/RAGhrjrD4sgpBUvz2FqARKQw+xQuoHf0wtLC3K+b A3MNcfy4+WHQmk0wjf269pk6mKmalMfFepxCB3184SERZsQqxSDRYbKTU5WGIXEuMNfeGIpHa75ep0F/ jMYeXWtHvDm4DaJbonIwbMCCaNpYc/YOFmFmSlTpNGGWKFQIiAsCPRUuFwfuORhKWkQLHiDj50FTqL50 KmLgMuKT3CoTUXGDSjDoQXghSHbDxUl12+VRIi3K35 3dRIqAWxy7fsBjWAXjzebSt2Qs1yNwhccLSLk2zgYnc9k3+Khmer+jN1Q+shH7tel5PWYlqapV8PVvCHrjt u/eV2kIrez9dDQgdT9bfp1eFgq4J2ZquMVjk7k09EGp9Ajhz3y4xYeeu4ydpkHi47Ls9SDJ5vC99wCpH 5LxYi7TeYD2dGZu/TDlszECWE4I3Dgrap0gcySxzQC Wq+He7jGXr270oto8daGjid4LZ+IonYpJ++a0ZrBeakcpiis8+MzwdSjRBN9aU5c1Ovdkof/MB7pVCQc GhFkJ2xPO8kC30Vs4RmP1IbW8VHrsF3sC9lhuDwQi7fQAOMkXKiLcAjdRQ1g5Js7aNafD/FZaJS4Pfqk uDU4r4dojRmyFjPi3OKohMUyZlBZK1rK/kHgRAeFkG Yw6zXNuS03lfzjknya3Hp510HHbRJmY2R/rMReT9ZaEg7jrKJsFpfoQFwQvryv1z934uHExPOyQMhZgg VRK9CBXwDzKohL4C1xMOedmwxnC54YFhF5PrrqIthyfmtYCPh5yf3G5AaN4npTE4gKVuh7tSrlSj7+RP 6sLTDVFmL5OiM1cpdEOg2BIzRSpnRtlK1X5VJB7t7c YA1Y8SLLlllr+qyN2vdeVwjMGFkUYfWPKtrbzE1QOs9+RBPnUhdz7EMZuP3GxbndXB0JLBqknOb/TPHc VaAT6+a+vh5Rs08bxMKQWYIiC8O828PvMggefGTjtWe5FafviLLdo4LsSwFnZ1jvyhSuWM6hwxkTWtAX EKFM8RXbFh4XeSbCqBGGldefItGA2O295WNkodrlgk On1wH8ySCay/MoCmSL//CswaiRuZdKquFvIn2Th4/9SI1NXEQzau9wK0lBQfvoiv5wx3kp/KIeFmT6l5 S3J1aeGMqgt6GiC5ahPZ1bu9n+UHpyTURKTZO5LHNCWmAHed3Ku0O9BUffAzXqf9qSRU+km2Xg1qWTf4 pHv4O58kQS9T4ZDDqwLOctALnIA5SGVAxA0oAPwKa/ tL0F5sjwNs59mfpp4urY+Jorge+zK6ZJl1vleH/wd58u3ZInjcjySI7u8J6OnrvatMANOoqzc3jLQ38ytBO O6Nv6K/s9Ur3xy3IrnDEamGSKEI8KGroI+4+L5C/v6a+Zqio1Z3A7SKg2UvyIpCRr+AvV4SksV7RHDNF r4pjGhtSXPq36FXHwwMEJcH8kKVXOOF45BbYAHE5Dt [id number] [id number]gp1gys3xIa3biTEg8P171QMM0mAQfAEjOvjvwp LYIHQJ+eTHPKnXBHgPBNLK3XMeDsZN6LZ3jA2RVMBh [file] [id number]= ID Date Data Source [id number] 05/11/2020 06:11:00 PM EST [facility] Name Value Range Interpretation Code Description Data Tere rce(s) Supporting Document(s) SARS-CoV-2 RNA 2019 nCoV Real-Time RT-PCR: NOT DETECTED [facility] This lab was ordered by [facility] and reported by [facility]. 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[facility] Patient has symptoms related to [facility] When did you start to experience these symptoms [Date and time] [Phen X] [facility] Patient was hospitalized because of this condition [facility] patient was admitted to ICU for [facility] Patient resides in a congregate care setting [facility] status [facility] ID Date Data Source [id number] 05/11/2020 08:06:09 PM [facility] Service Cmnt XXX-Imp : NoneRespiratory P CR Panel : PCR ResultsMicroorganism XXX Cult : See Labs Tab for 2019 nCoV RT-PCR resultsHAdV DNA QI MARI+non-probe : Not DetectedHCoV [id number] Nph QI MARI+non-probe : Not DetectedHCoV [id number] Nph QI MARI+non-probe : Not [id number] RNA Nph QI MARI+non-probe : Not [id number] RNA Upper resp QI MARI+probe : Not [...] DNA Nph Q MARI+non-probe : Not DetectedB [id number] DNA Nph MARI+non-probe : Not Detected Name Value Range Interpretation Code Description Data Tere rce(s) Supporting Document(s) ID Date Data Source [id number] 05/11/2020 07:12:30 PM [facility] Value Range Interpretation Code Description Data Tere rce(s) Supporting Document(s) Heparin unfractionated [Units/volume] in Platelet poor plasma by Chromogenic method 1.34 U[facility] ConfirmedBY DILUTIONCalled to and read darcie GONZALEZ RN IN 8F AT 1912 BY 1767 ID Date Data Source [id number] 05/11/2020 06:19:52 PM [facility] Value Range Interpretation Code Description Data Tere rce(s) Supporting Document(s) Glucose [Mass/volume] in Capillary blood by Glucometer 140 mg/dL 70- 140 [facility] ID Date Data Source [id number] 05/11/2020 06:43:14 PM [facility] Value Range Interpretation Code Description Data Tere rce(s) Supporting Document(s) Hepatitis B virus core Ab [Presence] in Serum or Plasma by Yg malone Non Reactive [facility] No active or previous infection. Suscept ible to infection. ID Date Data Source [id number] 05/11/2020 06:43:14 PM [facility] Value Range Interpretation Code Description Data Tere rce(s) Supporting Document(s) Hepatitis B virus core IgM Ab [Presence] in Serum or Plasma by Immunoassay Non Reactive [facility] IgM antibodies to HBc were not detected, does not exclude the possibility of exposure to HBV. ID Date Data Source [id number] 05/11/2020 06:43:14 PM [facility] Value Range Interpretation Code Description Data Tere rce(s) Supporting Document(s) Hepatitis B virus surface Ag [Presence] in Serum or Plasma b y Immunoassay Non Reactive [facility] No active or previous infection. Suscept ible to infection. ID Date Data Source [id number] 05/11/2020 07:11:02 PM [facility] Value Range Interpretation Code Description Data Tere rce(s) Supporting Document(s) Hepatitis B virus surface Ab [Units/volume] in Serum o r Plasma by Immunoassay 66.6 m[IU]/mL >11.4 [facility] ReactiveImmunity due to hepatitis B immu nization or natural infection. ID Date Data Source [id number] 05/11/2020 05:01:26 PM [facility] Value Range Interpretation Code Description Data Tere rce(s) Supporting Document(s) aPTT in Platelet poor plasma by Coagulation assay 34.4 s 24.0-33. 0 H [facility] ID Date Data Source [id number] 05/15/2020 12:16:41 PM [facility] Value Range Interpretation Code Description Data Tere rce(s) Supporting Document(s) Coagulation factor X activity [Units/vol ume] in Platelet poor plasma by Chromogenic method 86 U/dL 50-150 [facility] ID Date Data Source [id number] 05/11/2020 04:54:09 PM [facility] Value Range Interpretation Code Description Data Tere rce(s) Supporting Document(s) Leukocytes [#/volume] in Blood by Automated count 5.2 10*3/uL 4-10 [facility] Erythrocytes [#/volume] in Blood by Automated count 3.41 10*6/uL 4.6- 6.1 L [facility] Hemoglobin [Mass/volume] in Blood 10.7 g/dL 13.5-18 L [facility] Hematocrit [Volume Fraction] of Blood by Automated count 32.2 % 4 1-53 L [facility] Erythrocyte mean corpuscular volume [Entitic volume] by Auto mated count 94.5 fL 80-96 [facility] Erythrocyte mean corpuscular hemoglobin [Entitic mass] by Automated count 31.4 pg 27-33 [facility] Erythrocyte mean corpuscular hemoglobin concentration [Mass/volume] by Automated count 33.2 g/dL 32.0-36.0 [facility] distribution width [Ratio] by Automated count 15.3 % 11.5-14.5 H [facility] Platelets [#/volume] in Blood by Automated count 166 10*3/uL 150-400 [facility] Differential cell count method - Blood [facility] Neutrophils/100 leukocytes in Blood by Automated count 77 % [facility] Lymphocytes/100 leukocytes in Blood by Automated count 11 % [facility] Monocytes/100 leukocytes in Blood by Automated count 7 % [facility] Eosinophils/100 leukocytes in Blood by Automated count 4 % [facility] Basophils/100 leukocytes in Blood by Automated count 1 % [facility] Neutrophils [#/volume] in Blood by Automated count 3.98 10*3/uL 1.8-7 .0 [facility] Lymphocytes [#/volume] in Blood by Automated count 0.59 10*3/uL 1.2-4 .0 L [facility] Monocytes [#/volume] in Blood by Automated count 0.37 10*3/uL 0-0.8 [facility] Eosinophils [#/volume] in Blood by Automated count 0.22 10*3/uL 0-0.5 [facility] Basophils [#/volume] in Blood by Automated count 0.05 10*3/uL 0-0.2 [facility] Nucleated erythrocytes/100 leukocytes [Ratio] in Blood by Automated count 0 /100{WBCs} 0-0 [facility] ID Date Data Source [id number] 05/11/2020 05:10:12 PM EST [facility] Name Value Range Interpretation Code Description Data Tere rce(s) Supporting Document(s) Bicarbonate [Moles/volume] in Serum 25 mmol/L 22-29 [facility] Chloride [Moles/volume] in Serum or Plasma 102 mmol/L 98-107 [facility] Creatinine [Mass/volume] in Serum or Plasma 4.03 mg/dL 0.70-1.20 H [facility] Glucose [Mass/volume] in Serum or Plasma 148 mg/dL 70-140 H [facility] Potassium [Moles/volume] in Serum or Plasma 3.9 mmol/L 3.4-5.1 [facility] Sodium [Moles/volume] in Serum or Plasma 139 mmol/L 136-145 [facility] Urea nitrogen [Mass/volume] in Serum or Plasma 63 mg/dL 8-23 H [facility] Anion gap 3 in Serum or Plasma 12 mmol/L 8-15 [facility] Osmolality of Serum or Plasma by calculation 309 mosm/kg 275-300 H [facility] Creatinine/Urea nitrogen [Mass Ratio] in Serum or Plasma 16 [facility] Calcium [Mass/volume] in Serum or Plasma 9.2 mg/dL 8.8-10.2 [facility] Glomerular filtration rate/1.73 sq M pre dicted among non-blacks [Volume Rate/Area] in Serum or Plasma by Creatinine-based formula (MDRD) 13 mL/min/1.73m2 >60 L [facility] Glomerular filtration rate/1.73 sq M pre dicted among blacks [Volume Rate/Area] in Serum or Plasma by Creatinine-based formula (MDRD) 15 mL/min/1.73m2 >60 L [facility] ID Date Data Source [id number] 05/11/2020 05:10:12 PM [facility] Name Value Range Interpretation Code Description Data Tere rce(s) Supporting Document(s) Troponin T.cardiac [Mass/volume] in Serum or Plasma 0.06 ng/mL <0.01 H [facility] ID Date Data Source [id number] 05/11/2020 05:10:12 PM [facility] Name Value Range Interpretation Code Description Data Tere rce(s) Supporting Document(s) Magnesium [Mass/volume] in Serum or Plasma 1.9 mg/dL 1.6-2.4 [facility] ID Date Data Source [id number] 05/10/2020 05:04:00 AM EST [facility] Name Value Range Interpretation Code Description Data Tere rce(s) Supporting Document(s) SARS coronavirus 2 RNA [Presence] in Res piratory specimen by MARI with probe detection NEGATIVE [facility] This lab was ordered by [facility] a nd reported by [facility]. ID Date Data Source [id number] 02/16/2020 12:00:00 AM EST [facility] Name Value Range Interpretation Code Description Data Tere rce(s) Supporting Document(s) SARS-CoV2 Rapid Antigen [facility] This lab was ordered by [facility] and reported by [facility]. ID Date Data Source [id number] 01/19/2020 01:30:00 PM EST [facility] ([facility], ) Name Value Range Interpretation Code Description Data Tere rce(s) Supporting Document(s) Glucose [Mass/volume] in Capillary blood by Glucometer 131 mg/dL 83-110 Above high normal [facility] ([facility], ) ID Date Data Source [id number] 01/19/2020 01:30:00 PM EST [facility] ([facility] Name Value Range Interpretation Code Description Data Tere rce(s) Supporting Document(s) Glucose [Mass/volume] in Capillary blood by Glucometer 131 mg/dL 83-110 Above high normal [facility] ([facility] ) Procedure Social History Code Duration Value Status Description Data Source(s ) Smoking 07/26/2020 12:00:00 AM EDT Patient has never smoked co mpleted Patient has never smoked [facility] ([facility]) Alcohol intake 05/11/2020 12:00:00 AM EST Current non-d cami of alcohol (finding) completed Current non-drinker of alcohol (finding) [facility] Tobacco use and exposure 05/11/2020 12:00:00 AM EST Never used co mpleted Never used [facility] Smoking 05/11/2020 12:00:00 AM EST Never smoker completed Never s [facility] Smoking 05/08/2020 12:00:00 AM EST Never Smoked A Pipe complet ed Never Smoked A Pipe [facility] ([facility]) Vital Signs ID Date Data Source UNK Name Value Range Interpretation Code Description Data Source(s) Heart rate 70 /min 70 /min [facility] ([facility] Respiratory rate 16 /min 16 /min [facility] ( [facility] Body height 72 [in_i] 72 [in_i] [facility] ([facility] 6'0" Body mass index (BMI) [Ratio] 21.2 kg/m2 21.2 k g/m2 [facility] ([facility] Oxygen saturation in Arterial blood by Pulse oximetry 98 % 98 % [facility] ([facility] Systolic blood pressure 130 mm[Hg] 130 mm[Hg] M EDENT ([facility] Diastolic blood pressure 80 mm[Hg] 80 mm[Hg] [facility] ([facility] Body temperature 97.0 [degF] 97.0 [degF] [facility] ([facility] Body weight 156.00 [lb_av] 156.00 [lb_av] MED[facility] T ([facility] Wilson body weight 178 [lb_av] 178 [lb_av] [facility] T ([facility] Body weight 153.00 [lb_av] 153.00 [lb_av] [facility] T ([facility]) Body height 74 [in_i] 74 [in_i] [facility] ([facility]) 6'2" Body mass index (BMI) [Ratio] 19.6 kg/m2 19.6 k g/m2 [facility] Systolic blood pressure--sitting 134 mm[Hg] 134 mm[Hg] [facility] ([facility]) Ra, medium cuff Diastolic blood pressure--sitting 70 mm[Hg] 70 mm[Hg] [facility] ([facility]) Ra, medium cuff Systolic blood pressure 184 mm[Hg] 184 mm[Hg] [facility] Body surface area Derived from formula 1.96 m2 1.96 m2 [facility] Diastolic blood pressure 80 mm[Hg] 80 mm[Hg] [facility] ([facility]) Body height 73 [in_i] 73 [in_i] [facility] ([facility]) 6'1" Body weight 161.38 [lb_av] 161.38 [lb_av] MED[facility] T ([facility]) Body mass index (BMI) [Ratio] 21.3 kg/m2 21.3 k g/m2 [facility] Wilson body weight 184 [lb_av] 184 [lb_av] MED[facility] T ([facility]) Body weight 73.200 kg 73.200 kg [facility] ([facility], ) Systolic blood pressure 158 mm[Hg] 158 mm[Hg] M EDENT ([facility] Body weight 163.00 [lb_av] 163.00 [lb_av] MED[facility] T ([facility] Respiratory rate 14 /min 14 /min [facility] ( [facility] Body height 72 [in_i] 72 [in_i] [facility] ([facility] 6'0" Diastolic blood pressure 88 mm[Hg] 88 mm[Hg] [facility] ([facility] Body temperature 97.6 [degF] 97.6 [degF] [facility] ([facility] Heart rate 80 /min 80 /min [facility] ([facility] Wilson body weight 178 [lb_av] 178 [lb_av] MED[facility] T ([facility] Body mass index (BMI) [Ratio] 22.1 kg/m2 22.1 k g/m2 [facility] ([facility] Oxygen saturation in Arterial blood by Pulse oximetry 92 % 92 % [facility] ([facility] Systolic blood pressure 136 mm[Hg] 136 mm[Hg] M EDENT ([facility] Systolic blood pressure 146 mm[Hg] 146 mm[Hg] M EDENT ([facility] Diastolic blood pressure 74 mm[Hg] 74 mm[Hg] [facility] ([facility] Diastolic blood pressure 80 mm[Hg] 80 mm[Hg] [facility] ([facility] Body temperature 96.5 [degF] 96.5 [degF] [facility] ([facility] Heart rate 86 /min 86 /min [facility] ([facility] Respiratory rate 16 /min 16 /min [facility] ( [facility] Body height 72 [in_i] 72 [in_i] [facility] ([facility] 6'0" Body weight 159.00 [lb_av] 159.00 [lb_av] MED[facility] T ([facility] Wilson body weight 178 [lb_av] 178 [lb_av] [facility] T ([facility] Body mass index (BMI) [Ratio] 21.6 kg/m2 21.6 k g/m2 [facility] ([facility] Oxygen saturation in Arterial blood by Pulse oximetry 97 % 97 % [facility] ([facility] Body weight 159.00 [lb_av] 159.00 [lb_av] [facility] T ([facility]) Body height 74 [in_i] 74 [in_i] [facility] ([facility]) 6'2" Body mass index (BMI) [Ratio] 20.4 kg/m2 20.4 k g/m2 [facility] ([facility]) Heart rate 75 /min 75 /min [facility] ([facility]) Systolic blood pressure--sitting 128 mm[Hg] 128 mm[Hg] [facility] ([facility]) Ra, medium cuff Diastolic blood pressure--sitting 70 mm[Hg] 70 mm[Hg] [facility] ([facility]) Ra, medium cuff Body mass index (BMI) [Ratio] 22.2 kg/m2 22.2 k g/m2 [facility] Systolic blood pressure 132 mm[Hg] 132 mm[Hg] M EDENT ([facility]) Diastolic blood pressure 80 mm[Hg] 80 mm[Hg] [facility] ([facility]) Body height 73 [in_i] 73 [in_i] [facility] ([facility]) 6'1" Body weight 168.56 [lb_av] 168.56 [lb_av] MED[facility] T ([facility]) Wilson body weight 184 [lb_av] 184 [lb_av] MED[facility] T ([facility]) Body weight 76.460 kg 76.460 kg [facility] ([facility]) Body surface area Derived from formula 2.00 m2 2.00 m2 [facility] ([facility]) Body weight 160.00 [lb_av] 160.00 [lb_av] MED[facility] T ([facility]) Body mass index (BMI) [Ratio] 20.5 kg/m2 20.5 k g/m2 [facility] ([facility]) Heart rate 67 /min 67 /min [facility] ([facility]) Body height 74 [in_i] 74 [in_i] [facility] ([facility]) 6'2" Systolic blood pressure--sitting 124 mm[Hg] 124 mm[Hg] [facility] ([facility]) Ra, medium cuff Diastolic blood pressure--sitting 80 mm[Hg] 80 mm[Hg] [facility] ([facility]) Ra, medium cuff Systolic blood pressure 142 mm[Hg] 142 mm[Hg] M EDENT ([facility] Diastolic blood pressure 86 mm[Hg] 86 mm[Hg] [facility] ([facility] Body height 72 [in_i] 72 [in_i] [facility] ([facility] 6'0" Body weight 160.00 [lb_av] 160.00 [lb_av] MEDEN T ([facility] Body temperature 97.3 [degF] 97.3 [degF] [facility] ([facility] Heart rate 73 /min 73 /min [facility] ([facility] Respiratory rate 16 /min 16 /min [facility] ( [facility] Wilson body weight 178 [lb_av] 178 [lb_av] MED[facility] T ([facility] Body mass index (BMI) [Ratio] 21.7 kg/m2 21.7 k g/m2 [facility] ([facility] Oxygen saturation in Arterial blood by Pulse oximetry 98 % 98 % [facility] ([facility] Systolic blood pressure 200 mm[Hg] 200 mm[Hg] M EDENT ([facility], ) Diastolic blood pressure 100 mm[Hg] 100 mm[Hg] [facility] ([facility], ) Body height 73 [in_i] 73 [in_i] [facility] ([facility]) 6'1" Body weight 159.12 [lb_av] 159.12 [lb_av] MEDEN T ([facility]) Body mass index (BMI) [Ratio] 21.0 kg/m2 21.0 k g/m2 [facility] ([facility]) Wilson body weight 184 [lb_av] 184 [lb_av] MEDEN T ([facility]) Body weight 72.179 kg 72.179 kg [facility] ([facility]) Body surface area Derived from formula 1.95 m2 1.95 m2 [facility] ([facility]) Systolic blood pressure 188 mm[Hg] 188 mm[Hg] [facility] Diastolic blood pressure 98 mm[Hg] 98 mm[Hg] [facility] ([facility]) Body height 73 [in_i] 73 [in_i] [facility] ([facility]) 6'1" Body weight 157.38 [lb_av] 157.38 [lb_av] MED[facility] T ([facility]) Body mass index (BMI) [Ratio] 20.8 kg/m2 20.8 k g/m2 [facility] ([facility]) Wilson body weight 184 [lb_av] 184 [lb_av] MEDEN T ([facility]) Body weight 71.385 kg 71.385 kg [facility] ([facility]) Body surface area Derived from formula 1.94 m2 1.94 m2 [facility] ([facility]) Systolic blood pressure 182 mm[Hg] 182 mm[Hg] M EDENT ([facility]) Diastolic blood pressure 83 mm[Hg] 83 mm[Hg] [facility] ([facility]) Body height 73 [in_i] 73 [in_i] [facility] ([facility]) 6'1" Body weight 159.12 [lb_av] 159.12 [lb_av] MEDEN T ([facility]) Body mass index (BMI) [Ratio] 21.0 kg/m2 21.0 k g/m2 [facility] ([facility]) Wilson body weight 184 [lb_av] 184 [lb_av] CHELEN T ([facility]) Body weight 72.179 kg 72.179 kg [facility] ([facility]) Body surface area Derived from formula 1.95 m2 1.95 m2 [facility] ([facility]) ID Date Data Source [id number] 06/28/2020 12:28:07 PM EDT [facility] Name Value Range Interpretation Code Description Data Source(s) WEIGHT RECORDED 156.31 lb 156.31 lb [facility] WEIGHT RECORDED 163.36 lb 163.36 lb [facility] WEIGHT RECORDED 159.17 lb 159.17 lb [facility] WEIGHT RECORDED 172.62 lb 172.62 lb [facility] WEIGHT RECORDED 174.16 lb 174.16 lb [facility] WEIGHT RECORDED 166.8 lb 166.8 lb [facility] WEIGHT RECORDED 163.14 lb 163.14 lb [facility] WEIGHT RECORDED 163 lb 163 lb [facility] WEIGHT RECORDED 162.04 lb 162.04 lb [facility] WEIGHT RECORDED 167.55 lb 167.55 lb [facility] TRANSFER FROM [facility] Patient Treatment Plan of Care Planned Activity Planned Date Details Description Data Source (s) Tamsulosin hydrochloride 0.4 MG Oral Capsule 05/23/2020 12:00:[address] [facility] POLYETHYLENE GLYCOL 3350 142 MG/ML Oral Solution 05/22/2020 12:00:[address] [facility] Docusate Sodium 100 MG Oral Capsule 05/22/2020 12:00:[address] [facility] Lidocaine 5 % External Patch (LIDODERM) 05/22/2020 12:00:[address] [facility] Levothyroxine Sodium 0.088 MG Oral Tablet 05/22/2020 12:00:00 AM [facility] gabapentin 100 MG Oral Capsule 05/22/2020 12:00:[address] [facility] Venofer 20 MG/ML Intravenous Solution (iron sucrose) 021 12:00:[address] [facility] 0.3 ML Methoxy polyethylene glycol-epoet in beta 0.167 MG/ML Prefilled Syringe [Mircera] 05/22/2020 12:00:00 AM [facility] Calcitriol 0.15643 MG Oral Capsule 05/22/2020 12:00:[address] [facility] Alprazolam 0.5 MG Oral Tablet 05/22/2020 12[facility]00[facility] [facility] [facility] Tab-A-Jemal/Beta Carotene Oral Tablet 05/22/2020 12:00:[address] [facility] Allopurinol 100 MG Oral Tablet 05/22/2020 12:00:[address] [facility] torsemide 100 MG Oral Tablet 05/21/2020 12:00:[address] [facility] pantoprazole 40 MG Delayed Release Oral Tablet 05/21/2020 12:00:[address] [facility] Magnesium Oxide 400 MG Oral Tablet 05/21/2020 12:00:[address] [facility] Levothyroxine Sodium 0.088 MG Oral Tablet 05/21/2020 12:00:00 AM [facility] torsemide 10 MG Oral Tablet 05/21/2020 12:00:[address] [facility] POLYETHYLENE GLYCOL 3350 142 MG/ML Oral Solution 05/21/2020 12:00:[address] [facility] Lidocaine 5 % External Patch (LIDODERM) 05/21/2020 12:00:[address] [facility] Diclofenac Sodium 0.01 MG/MG Topical Gel 05/20/2020 12:00:[address] [facility] Acetaminophen 325 MG Oral Tablet 05/20/2020 12:00:[address] [facility] Diclofenac Sodium 0.01 MG/MG Topical Gel 05/17/2020 10:48:[address] [facility] POLYETHYLENE GLYCOL 3350 142 MG/ML Oral Solution 05/16/2020 07:49:[address] [facility] clopidogrel 75 MG Oral Tablet 05/16/2020 12:00:[address] [facility] dextrose 50 % IV solution 25 mL 05/11/2020 04:14:[address] [facility] Glucagon 1 MG Injection 05/11/2020 04:14:[address] [facility] Glucose 0.417 MG/MG Oral Gel 05/11/2020 04:14:[address] [facility] valsartan 160 MG Oral Tablet 03/13/2020 12:00:[address] [facility] torsemide 100 MG Oral Tablet 03/03/2020 12:00:[address] [facility] Tamsulosin hydrochloride 0.4 MG Oral Capsule 10/25/2019 12:00:00 AM [facility] sennosides, ALF 8.6 MG Oral Tablet 10/25/2019 12:00:00 AM [facility] Furosemide 40 MG Oral Tablet 10/25/2019 12:00:00 AM [facility] 168 HR Clonidine 0.57433 MG/HR Transdermal Patch 10/22/2019 12:00:0 0 AM [facility] ONETOUCH DELICA LANCETS 33G [facility] 02/15/2018 [facility] 12:00:[address] [facility] Allopurinol 300 MG Oral Tablet 01/17/2018 12:00:[address] [facility] BD PEN NEEDLE GURPREET U/F 32G X 4 MM [facility] 01/06/2018 12:00:00 AM [facility] Mupirocin 0.02 MG/MG Topical Ointment 12/03/2017 12:00:00 AM [facility] 0.3 ML Methoxy polyethylene glycol-epoet in beta 0.167 MG/ML Prefilled Syringe [Mircera] [facility] Venofer 20 MG/ML Intravenous Solution (iron sucrose) [facility] Calcitriol 0.51402 MG Oral Capsule [facility] Alprazolam 0.5 MG Oral Tablet [facility] Levothyroxine Sodium 0.088 MG Oral Tablet [facility] gabapentin 100 MG Oral Capsule [facility] torsemide 100 MG Oral Tablet [facility] Lidocaine 5 % External Patch (LIDODERM) [facility] Allopurinol 100 MG Oral Tablet [facility] Multiple Vitamin (MULTIVITAMIN) tablet [facility] Docusate Sodium 100 MG Oral Capsule [facility] latanoprost 0.05 MG/ML Ophthalmic Solution [facility] POLYETHYLENE GLYCOL 3350 142 MG/ML Oral Solution [facility] Ergocalciferol 49973 UNT Oral Capsule [facility] potassium chloride SA (K-DUR,KLOR-CON) 10 MEQ tablet [facility] lidocaine (LIDODERM) 5 % Ups [facility] Isosorbide Dinitrate 10 MG Oral Tablet [facility] glimepiride 4 MG Oral Tablet [facility] 3 ML Insulin Glargine 100 UNT/ML Pen Injector [facility] Aspirin [address] [facility] 24 HR metoprolol succinate 50 MG Extended Release Oral Tablet [facility]
[2021-01-22] MEDS ORDERED: FAMOTIDINE 20 MG TAB PO PRN (01:35)
[2021-01-22] MEDS ORDERED: MECLIZINE 25 MG TABLET PO PRN (01:35)
[2021-01-22] MEDS ORDERED: NITROGLYCERIN 0.4 MG SUBL TABLET SL PRN (01:35)
[2021-01-22 01:38] LABS: RSV AMPLIFICATION NEGATIVE (NEGATIVE)
[2021-01-22] MEDS ORDERED: MECL-86 PO (02:03)
[2021-01-22] MEDS ORDERED: CLOT1CRE71 TOP (02:03)
[2021-01-22] MEDS ORDERED: HOME MED LIST COMPLETE! XX SCH (02:05)
--- NOTE | 2021-01-22 02:28 | HPEPDOC ---
[facility] Medical History & Physical Date of Admission Jan 22, 2021 Date of Service: Jan 22, 2021 Attending Physician: SAVAGE ERICKSON MD History and Physical CHIEF COMPLAINT: Dizziness HISTORY OF PRESENT ILLNESS: Jose Antonio is a 75-year-old male who presents with new onset dizziness. He tells me he completed his hemodialysis session this morning, which was uncomplicated, and then went to eat lunch. After finishing his meal, he became very lightheaded and tells me "the room was spinning." He decided to sit for 15-20 minutes, as he felt like he would fall if he stood up due to unsteadiness. As he was sitting, he felt his neck become warm, stiff, and painful. He tells me his lightheadedness did not improve and EMS was called. Reports HR 40 upon EMS arrival. Denies prior orthostatic hypotension, recent illness, poor oral intake. Denies LOC, changes in vision, chest pain, palpitations, shortness of breath. Of note, patient reports that, since being in the ED, he has developed genera lized chest tightness and pain that radiates down his left arm into his left hand. He tells me it was 10/10 and he was given Tylenol, which has improved his chest pain to 7/10. He tells me he also received medication, prior to undergoing MRI, to help his anxiety and that he now feels very drowsy. Denies abdominal pain, nausea/vomiting, changes in BM, changes in urination. Of note, patient admitted for vertigo with similar presentation of increased lightheadedness, anterior chest tightness, warmth, unsteadiness. He was discharged home on meclizine, which patient tells me has not been effective. In ED, BP 169/74, HR 63, SPO2 98% on RA. CBC significant for WBC 3.8, H&H 10. 5/31.6, PLT 144 (which appear to be at patient's baseline). CMP significant for BUN 42 and CR 3.32 (which appear to be at patient's baseline), glucose 210. BNP 6016. TSH 3.99. EKG shows A. fib with HR 67. Imaging unremarkable, as noted below. PAST MEDICAL HISTORY: 1. ESRD on HD T/R/Sat. 2. A. fib on Eliquis. 3. CHF with LVEF 45-50% (ECHO 10/2020) 4. History of CO (2006) 5. CAD s/p CABG 6. HTN 7. Hypothyroidism 8. Anemia of chronic disease 2/2 ESRD 9. Gout 10. Arthritis PAST SURGICAL HISTORY: 1. Bilateral cataract surgery. 2. T&A. 3. CABG 4. Cholecystectomy 5. Appendectomy 6. Left nephrectomy SOCIAL HISTORY: Marital status: Single. Resides in: Apartment Tobacco use: Denies ETOH: Denies Illicit drug use: Denies FAMILY HISTORY: HTN, CAD, COPD, asthma, CAstomach ALLERGIES: Please see below. REVIEW OF SYSTEMS: CONSTITUTIONAL: Denies fever/chills, fatigue. HEENT: Reports neck pain and stiffness, lightheadedness. Denies headache, changes in vision, sore throat, nasal congestion, rhinorrhea, ear pain. CARDIOVASCULAR: Reports chest pain. Denies palpitations. RESPIRATORY: Denies shortness of breath, cough, wheezing GASTROINTESTINAL: Denies abdominal pain, nausea/vomiting, constipation, diarrhea GENITOURINARY: Denies changes in urination, hematuria, dysuria, urinary hesitancy/frequency. SKIN: Denies new bruising/abrasions. MUSCULOSKELETAL: Denies weakness. NEUROLOGICAL: Reports vertigo. Denies changes in sensation, numbness/tingling. HOME MEDICATIONS: Please see below. PHYSICAL EXAMINATION: VITAL SIGNS: Temperature 97.1, pulse 60, respiratory rate 16, blood pressure 139/74, pulse oximetry 98% on room air. GENERAL APPEARANCE: Drowsy, laying in stretcher, NAD. HEENT: NC/AT, EOMI with slow tracking, nares patent, moist mucous membranes, upper denture. CARDIOVASCULAR: Irregularly irregular rhythm, regular rate, no MRG, normal heart sounds. LUNGS: CTA bilaterally, shallow breathing, no WRR, no accessory muscles used. ABDOMEN: Soft, nontender, nondistended. MUSCULOSKELETAL: Normal ROM, strength 5/5. EXTREMITIES: Minimal bilateral lower extremity edema, unable to palpate DP/PT pulses bilaterally, bilateral lower extremities warm to touch with bilateral feet cool to touch NEUROLOGICAL: CN III-XII intact, sensation intact. PSYCHIATRIC: AOx4, no depressed/anxious mood. LABORATORY DATA: See below. IMAGING: CXR (01/21) Decreased congestive failure or fluid overload since 10/22/2020. Residual pleural effusions are noted, left greater than right. Head CT (01/21) 1. No acute intracranial pathology. 2. Chronic findings, as above. Brain MRI w/out contrast (01/21) No acute findings. Brain MRA w/out contrast (01/21) No acute abnormality. 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 MRA bilateral carotids w/out contrast (01/21) No stenosis or occlusion. MICROBIOLOGY: Please see below. ASSESSMENT/PLAN: Jose Antonio is a 75-year-old male PMH ESRD on HD T/R/sats, A. fib on Eliquis, CHF with LVEF 45-50% on recent echo, hypothyroidism who presents with new onset dizziness following HD, was found to have initial HR 40 per EMS and unremarkable imaging in ED, as noted above, being admitted for further management of symptoma tic bradycardia. #Dizziness, most likely 2/2 symptomatic bradycardia BP 139/74, HR 60 on evaluation Orthostats pending Patient is currently on clonidine 0.2mg patch weekly. Will decrease to 0.1mg pa tch weekly, as per nephrology recommendations. Continue home meclizine 25 mg twice daily as needed PT/OT eval pending #Chest pain, atypical In ED, CPK, CK-MB, troponin WNL. EKG without ST changes. Patient tells me chest pain improved with Tylenol given in ED Will trend troponin On telemetry Continue home Nitrostat 0.4 mg as needed At this time, low suspicion for ACS, but consider further w/u if symptoms do not improve #ESRD on HD T/R/Sat In ED, BUN 42, CR 3.32, which appear to be at patient's baseline Continue HD, as per schedule Continue to monitor daily labs Nephrology (Dr. Lala Wilson) on consult, appreciate recommendations #Pancytopenia 2/2 ESRD In ED, WBC 3.8, H&H 10.5/31.6, PLT 144, which appear to be at patient's baseline Continue to monitor daily labs #DM2 In ED, Fasting glucose 210 Patient tells me he used to have IDDM2, but has since then lost a lot of weight (when starting HD) and no longer has DM2 or takes medication. When reviewing, med rec, patient does in fact not take insulin/metformin/etc. Order HbA1c Order FSBS, SSI #A. fib, rate controlled In ED, EKG A. fib with HR 67 On telemetry Continue home Eliquis 2.5 mg twice daily #HTN BP 139/74 on evaluation Continue home valsartan 80 mg twice daily, torsemide 50 mg twice daily Continue to monitor BP #CHF, unspecified type LVEF 45-50% noted on most recent echo from 10/2020 In ED, BNP 6016. Patient appears euvolemic on evaluation, without JVD/crackles/significant edema #Hypothyroidism In ED, TSH 3.99 Continue home levothyroxine 88 mcg daily #CAD s/p CABG Continue home Lipitor 40 mg daily #Gout Continue home allopurinol 100 mg daily #GERD Continue home pantoprazole 40 mg daily, famotidine 20 mg daily as needed #BPH Hold home tamsulosin, pending clinical improvement #DVT prophylaxis Continue home Eliquis 2.5 mg twice daily DIET: Renal, 2 g sodium diet, consistent carb ACTIVITY: Bedrest, fall risk precautions DISPO: Pending clinical improvement CODE STATUS: Full code Vital Signs Vital Signs Date Time Temp Pulse Resp B/P (MAP) Pulse Ox O2 Delivery O2 Flow Rate FiO2 01/21/21 21:45 16 169/74 (105) 01/21/21 21:39 63 98 01/21/21 18:53 97.1 Room Air Laboratory Data Labs 24H Laboratory Tests 2 01/21/21 19:22: Immature Granulocyte % (Auto) 0.3, Neutrophils (%) (Auto) 74.5H, Lymphocytes (%) (Auto) 11.8L, Monocytes (%) (Auto) 9.7H, Eosinophils (%) (Auto) 2.9, Basophils (%) (Auto) 0.8, Neutrophils # (Auto) 2.9, Lymphocytes # (Auto) 0.5L, Monocytes # (Auto) 0.4, Eosinophils # (Auto) 0.1, Basophils # (Auto) 0.0, Nucleated Red Blood Cells % (auto) 0.0, Anion Gap 7L, Glomerular Filtration Rate 19.3L, Calcium Level 8.9, Total Bilirubin 0.3, Aspartate Amino Transf (AST/SGOT) 12, Alanine Aminotransferase (ALT/SGPT) 20, Alkaline Phosphatase 87, Total Creatine Kinase 42, Creatine Kinase MB 1.6, Creatine Kinase MB Relative Index 3.81, Troponin I < 0.02, RN-Fix-V-Type Natriuretic Peptide 6016H, Total Protein 6.7, Albumin 3.5, Albumin/Globulin Ratio 1.1, Thyroid Stimulating Hormone (TSH) 3.990H 01/22/21 00:49: CBC/BMP Laboratory Tests 01/21/21 19:22 Home Medications Scheduled Allopurinol (Allopurinol) 100 Mg Tablet, 100 MG PO DAILY Apixaban (Eliquis) 2.5 Mg Tablet, 2.5 MG PO BID Atorvastatin Calcium (Atorvastatin Calcium) 40 Mg Tab, 40 MG PO QHS Clonidine (Clonidine) 0.2 Mg Patch.tdwk, 0.2 MG TD QWEEK SATURDAYS, APPLY TO UPPER ARMS ALTERNATING Levothyroxine Sodium (Levothyroxine Sodium) 88 Mcg Tablet, 88 MCG PO DAILY Multivitamins (Thera M Plus Tablet) 1 Tab Tab, 1 TAB PO QHS Pantoprazole Sodium (Pantoprazole Sodium) 40 Mg Tablet.dr, 40 MG PO DAILY Sevelamer Carbonate (Renvela Oral Suspension) 0.8 Gm Powd.pack, 0.8 GM PO WM Tamsulosin Hcl (Tamsulosin HCl) 0.4 Mg Capsule, 0.4 MG PO DAILY Torsemide (Torsemide) 100 Mg Tablet, 50 MG PO BID 0900, 1700 Valsartan (Valsartan) 80 Mg Tablet, 80 MG PO BID Scheduled PRN Clotrimazole/Betamethasone Dip (Clotrimazole-Betamethasone Crm) 15 Gm Cream..g., 1 DOSE TOP BID PRN for RASH APPLY TO GROIN Docusate Sodium (Docusate Sodium) 100 Mg Capsule, 100 MG PO DAILY PRN for BOWEL CARE/CONSTIPATION Famotidine (Famotidine) 20 Mg Tablet, 20 MG PO DAILY PRN for HEARTBURN Lidocaine (Lidoderm) 5 % Dis, 2 PATCH TD DAILY PRN for BACK PAIN Mag Hydrox/Aluminum Hyd/Simeth (Maalox Maximum Strength Susp) 355 Ml Oral.susp, 10 ML PO QID PRN for HEARTBURN/INDIGESTION Meclizine HCl (Meclizine HCl) 25 Mg Tablet, 25 MG PO BID PRN for DIZZINESS Nitroglycerin (Nitrostat) 0.4 Mg Tab.subl, 0.4 MG SL NITRO PRN for CHEST PAIN Allergies Coded Allergies: Penicillins (Verified Allergy, Mild, rash/itching, 06/17/20) Tetracyclines (Verified Allergy, Mild, ITCHING, 06/17/20) Sulfa (Sulfonamide Antibiotics) (Unverified Allergy, Unknown, unknown, 06/17/20) erythromycin base (Unverified Allergy, Unknown, unknown, 06/17/20) minoxidil (Verified Adverse Reaction, Intermediate, ANASARCA, 06/17/20) Contrast Media (Verified Adverse Reaction, Mild, MADE LEG TURN RED, 06/17/20) amlodipine (Verified Adverse Reaction, Mild, FLUID RETENTION, 06/17/20) carvedilol (Verified Adverse Reaction, Mild, FLUID RETENTION, 06/17/20) hydralazine (Verified Adverse Reaction, Mild, FLUID RETENTION, 06/17/20) cephalexin (Unverified Adverse Reaction, Unknown, FLUID RETENTION, 06/17/20) A-FIB/CHADSVASC A-FIB History Current/History of A-Fib/PAF?: Yes Current PO Anticoag Therapy: Yes Jeanette Jung DO Jan 22, 2021 02:28
[2021-01-22] MEDS: MULTIVITAMINS/MINERALS THERAP 1 TAB PO SCH ×2 (03:47→21:00)
[2021-01-22] MEDS: ATORVASTATIN 20 MG TAB PO SCH ×2 (03:47→21:34)
[2021-01-22] MEDS ORDERED: DEXTROSE 50% 50 ML SYRINGE IV PRN (04:45)
[2021-01-22] MEDS ORDERED: GLUCOSE 4GM CHEW TABLET PO PRN (04:45)
[2021-01-22] MEDS ORDERED: GLUCAGON INJ 1MG VIAL SC PRN (04:45)
[2021-01-22] MEDS ORDERED: ASPIRIN 81 MG CHEW TABLET PO ONE (06:10)
[2021-01-22] MEDS: LEVOTHYROXINE 88MCG TABLET (0.088 MG) PO SCH (06:24)
[2021-01-22 06:53] LABS: HEMOGLOBIN A1c 6.2 %
[2021-01-22 07:00] LABS: CK-MB VALUE MASS < 1.0 NG/ML (<3.6); CPK CREATINE PHOSPHOKINASE 39 U/L (39-308); MB/CK RELATIVE INDEX 2.56 (< OR =4); TROPONIN I < 0.02 NG/ML (< 0.10)
[2021-01-22] MEDS: MORPHINE 4 MG/ML 1ML VIAL/SYRINGE (J2270) IV PRN ×3 (07:43→23:23)
[2021-01-22] MEDS: HumaLOG INSULIN (NovoLOG) PER UNIT SC SCH ×4 (07:45→21:00)
[2021-01-22] MEDS: PANTOPRAZOLE 40MG TAB (PROTONIX) PO SCH (08:01)
[2021-01-22] MEDS: allopurinoL 100 MG TAB PO SCH (08:02)
[2021-01-22] MEDS: APIXABAN 2.5 MG TAB (ELIQUIS) PO SCH ×2 (08:02→21:34)
[2021-01-22] MEDS: VALSARTAN 80 MG TAB (DIOVAN) PO SCH ×2 (08:02→21:34)
--- NOTE | 2021-01-22 08:21 | REP ---
INDICATION: r/o DVT. COMPARISON: 06/09/2020 left, 04/24/2020 bilateral TECHNIQUE: Multiple ultrasonographic images of the deep venous structures of the bilateral thighs were obtained from the level of the common femoral vein to the popliteal vein in the longitudinal and transverse scan planes along with Doppler interrogation and color flow Doppler imaging. Scanning of the proximal calves was also performed. Technologist notes indicate that the popliteal vein on the right could not be evaluate did as the patient declined to remove an Tomas wrap around the right knee and also would not allow the technologist to touch his lower leg/calf. FINDINGS: There is no abnormal echogenic material seen within any of the visualized deep venous structures that would suggest acute thrombosis. Coaptation is unremarkable throughout. Doppler interrogation shows an expected response to respiratory variability and augmentation. The color flow Doppler images show what appears to be a normal vascular pattern throughout. Should be noted the right side included only the common and superficial femoral veins down to the distal femur as the Tomas wrap could not be removed per the patient's wishes. On the left side proximal calf showed vessels compressible. IMPRESSION: There is no ultrasonographic evidence of deep venous thrombosis involving any of the visualized deep venous structures of the bilateral thighs and visible veins in the proximal left calf as described above. Limited evaluation of the right lower extremity from the groin to the distal femur excluding popliteal vein and below as described above. Accredited by the [employer] in Vascular Peripheral Ultrasound. <Electronically signed by Freddie Charlton > 01/22/21 0818
[2021-01-22] MEDS: cloNIDine HCL 0.1 MG/24 HR PATCH TD SCH (09:22)
[2021-01-22] MEDS: TORSEMIDE (DEMADEX) 50 MG PER 1/2 TAB PO SCH ×2 (09:22→17:26)
[2021-01-22 11:45] LABS: CPK CREATINE PHOSPHOKINASE 38 U/L (39-308); MB/CK RELATIVE INDEX 2.63 (< OR =4); TROPONIN I < 0.02 NG/ML (< 0.10)
--- NOTE | 2021-01-22 14:42 | CR ---
NEPHROLOGY CONSULTATION DATE: 01/22/2021 REQUESTING CLINICIAN: Jovon Heredia MD. REASON FOR CONSULTATION: To assist in the management of end-stage renal disease. HISTORY OF PRESENT ILLNESS: Mr. Willson is a 75-year-old gentleman with multiple chronic medical problems including end-stage renal disease, coronary artery disease, atrial fibrillation and congestive heart failure. He is regularly dialyzed on a Wednesday, and Wednesday schedule. He was dialyzed yesterday and then later in the evening he went out to a restaurant for dinner. He felt dizzy and did not feel good. Ambulance was called and patient was brought to the Emergency Room. His heart rate was in the 40s. Patient was admitted due to symptomatic bradycardia and I was called last night. I have seen the patient in the Emergency Room. Patient did not have any loss of consciousness or fall. PAST MEDICAL HISTORY: Significant for: 1. Hypertension. 2. End-stage renal disease requiring maintenance hemodialysis. 3. Atrial fibrillation. 4. Systolic congestive heart failure with ejection fraction 45-50%. 5. History of coronary artery disease with history of PR in 2006 status post CABG. 6. Hypothyroidism. 7. Anemia of end-stage renal disease. 8. Gout. 9. Arthritis. 10. History of renal cell carcinoma. PAST SURGICAL HISTORY: Significant for: 1. Bilateral cataract surgery. 2. Tonsillectomy and adenoidectomy. 3. CABG. 4. Cholecystectomy. 5. Appendectomy. 6. Left nephrectomy. FAMILY HISTORY: Significant for hypertension, coronary artery disease, COPD and cancer of stomach. PERSONAL AND SOCIAL HISTORY: Patient is single and does not smoke or drink. He denies any alcohol use or drug use. ALLERGIES: Patient has multiple drug allergies includin. PENICILLIN. 2. SULFA. 3. TETRACYCLINE. 4. ERYTHROMYCIN. 5. MINOXIDIL. 6. CONTRAST MEDIA. 7. AMLODIPINE. 8. HYDRALAZINE. 9. CEPHALEXIN. 10. CARVEDILOL. MEDICATIONS: Home medications include: 1. Allopurinol 100 mg daily. 2. Eliquis 2.5 mg twice a day. 3. Atorvastatin 40 mg daily. 4. Clonidine patch 0.2 mg every week. 5. Levothyroxine 88 mcg daily. 6. Multivitamin 1 tablet daily. 7. Pantoprazole 40 mg daily. 8. Renvela 800 mg three times a day with meals. 9. Flomax 0.4 mg daily. 10. Torsemide 50 mg twice a day. 11. Valsartan 80 mg twice a day. 12. Colace as needed. 13. Famotidine as needed. REVIEW OF SYSTEMS: Patient denies any loss of consciousness or fall. There is no history of fever or chills. Ears, nose and throat: Unremarkable. Cardiovascular system: Significant for bradycardia and dizziness. He also reports some chest pain this morning. Respiratory system: Negative for cough or hemoptysis. GI system: Negative for nausea, vomiting or diarrhea. system: Significant for prior left nephrectomy due to renal cell carcinoma. He denies any dysuria or hematuria. Musculoskeletal system: Significant for chronic degenerative arthritis and back pain. He also has some mild leg edema. Neurological system: Negative for seizures or stroke. Hematologic system: Significant for chronic anticoagulation and anemia of chronic kidney disease. Skin: Negative for rash or ulcers. Endocrine system: Negative for diabetes. He does have hypothyroidism and secondary hyperparathyroidism. PHYSICAL EXAMINATION: Patient is awake and alert at the time of my visit in the Emergency Room. Temperature 98 degrees Fahrenheit, heart rate is now up to 70 per minute and respiratory rate 18 per minute. Blood pressure 149/67 mmHg and oxygen saturation 100% on room air. Head: Atraumatic. Neck: Supple and JVD not abnormally elevated. He has a hemodialysis catheter in the right internal jugular vein. Heart: Sounds are regular. Lungs: Clear to auscultation. Abdomen: Soft and nontender and bowel sounds normal. Extremities: Without any cyanosis or clubbing. He has a fistula in his left arm which is not being used for dialysis. Lower extremity edema is at least 1+ bilaterally. Neurologically: He is awake, alert and oriented times 3. LABORATORY DATA: Today's labs show: WBC count 3.8, hemoglobin 10.5, hematocrit 31.6 and platelets 144. Sodium 138, potassium 3.7, CO2 29, BUN 43, creatinine 3.32. A1c was 6.2. Troponin 0.02 and TSH level 3.99. A BNP level was 6016. PROBLEMS AND PLAN: 1. End-stage renal disease: Patient was dialyzed yesterday and his regular dialysis will be scheduled for tomorrow. His volume status is reasonable and there is no emergent indication for dialysis today. Electrolytes are all within normal range. 2. Bradycardia most likely related to coronary artery disease and medications: He has been on a clonidine patch 0.2 mg. I discussed with the admitting physician last night and recommended 0.1 mg patch. His heart rate already improved. 3. Congestive heart failure: Volume status seems well compensated at present and will be managed with dialysis. 4. Coronary artery disease: Patient feels that he did have some chest pain; however, his troponins have been negative. 5. Anemia: His anemia has been stable at baseline and does not need any urgent intervention.
[2021-01-22 16:00] VITALS: BP 180/82
[2021-01-22 17:46] VITALS: BP 155/62
--- NOTE | 2021-01-22 17:46 | IPNPDOC ---
Text Note Date of Service The patient was seen on 01/22/21. NOTE Subjective: Patient is a 75-year-old male who presented to the hospital with new onset dizziness. Patient had his regular scheduled hemodialysis session yesterday and said this went well. He went to eat lunch and after eating his meal he became very lightheaded and said the room was spinning. Patient sat a sit down for 15 to 20 minutes and then tried to stand up again had more dizziness. Patient states that he is still having some of his dizziness but does feel slightly better. Patient was asking for hot tea. Review of systems: General: Patient denies fevers HEENT: Patient denies headaches Cardiovascular: Patient denies chest pain Respiratory: Patient denies shortness of breath, cough GI: Patient denies abdominal pain, nausea, vomiting, diarrhea : Patient denies increased frequency or pain with urination Extremities: Patient denies swelling or pain in extremities Neurological: Patient denies numbness or tingling in legs Physical exam: Vitals: See below General: Alert and oriented male patient was sitting on the edge of the bed when I walked in. Patient not appear to be in any acute distress. HEENT: Normocephalic, atraumatic, moist mucous membranes. Neck: No lymphadenopathy or thyromegaly Cardiac: Regular rate and rhythm, no murmurs, normal S1, normal S2 Pulm: Clear to auscultation bilaterally. No wheezes, rhonchi, rales Abd: Nondistended, nontender to palpation, normal bowel sounds Ext: No edema bilateral lower extremities Labs: See below Imaging: No new imaging been performed Assessment/plan: 75-year-old male past medical history of ESRD on hemodialysis on a Wednesday, , Wednesday schedule, atrial fibrillation on Eliquis, CHF with left ventricular ejection fraction 45-50% on recent echo who presented to the hospital following hemodialysis with new onset dizziness was found to have initial heart rate in the 40s with unremarkable imaging. 1. Dizziness most likely secondary to symptomatic bradycardia. Patient's orthostatic vitals have been within normal limits. Clonidine has been decreased to 0.1 mg patch weekly and this has helped with the patient's bradycardia. We will continue to monitor. Patient will continue working with PT. Meclizine is also been ordered. 2. Atypical chest pain. Troponins have been negative and ECG does not show any ST changes. Chest pain did improve with Tylenol. Continue to monitor. Low sufficient for ACS due to negative troponins. 3. ESRD on hemodialysis on Wednesday, , Wednesday schedule. I appreciate Dr. Wilson's help treating the patient. Continue with dialysis as normally scheduled. 4. Pancytopenia secondary to ESRD. This appears to be at baseline. Monitor daily labs. 5. Type 2 diabetes mellitus. Continue sliding scale insulin. 6. Paroxysmal atrial fibrillation. Currently rate controlled. On Eliquis 2.5 mg daily. 7. Hypertension. Continue home medications. 8. Heart failure with ejection fraction of 45-50%. Patient has elevated BNP in the emergency department. Appears euvolemic on exam. Continue with dialysis. 9. Hypothyroidism. Continue home medications. 10. Coronary artery disease status post CABG. Continue home Lipitor. 11. Gout. Continue home medications. 12. Continue home pantoprazole. 13. BPH. Continue home tamsulosin. DVT Prophylaxis: Emile Disposition: Pending clinical improvement VS,Sadiq, I+O VSSadiq, I+O Laboratory Tests 01/21/21 19:22 Vital Signs Date Time Temp Pulse Resp B/P (MAP) Pulse Ox O2 Delivery O2 Flow Rate FiO2 01/22/21 16:40 18 01/22/21 16:00 97.8 69 180/82 (114) 100 Room Air EMMA LAMB DO Jan 22, 2021 17:45
[2021-01-22 20:00] VITALS: BP 140/60
[2021-01-22] MEDS: **NOTE PATIENT COMMENT** MISC XX SCH (21:00)
[2021-01-23] VITALS (9 sets, daily range): BP systolic 138–180; BP diastolic 70–86
[2021-01-23 05:48] LABS: HEMATOCRIT 34.4 % (42.0-52.0); MEAN CORPUSCULAR HEMOGLOBIN 30.1 pg (27.0-33.0); MEAN CORPUSCULAR VOLUME 94.2 fl (80.0-96.0); PLATELET COUNT, AUTOMATED 137 10^3/uL (150-450); RED BLOOD COUNT 3.65 10^6/uL (4.30-6.10); WHITE BLOOD COUNT 3.7 10^3/uL (4.0-10.0)
[2021-01-23 06:22] LABS: CREATININE FOR GFR 5.34 MG/DL (0.70-1.30); GLOMERULAR FILTRATION RATE 11.2 (>42); POTASSIUM SERUM 4.5 MEQ/L (3.5-5.1)
[2021-01-23] MEDS: LEVOTHYROXINE 88MCG TABLET (0.088 MG) PO SCH (06:37)
[2021-01-23] MEDS: allopurinoL 100 MG TAB PO SCH (06:37)
[2021-01-23] MEDS: HumaLOG INSULIN (NovoLOG) PER UNIT SC SCH ×4 (06:38→20:28)
[2021-01-23] MEDS ORDERED: SODIUM CHLORIDE 0.9% 1000ML IV PRN (07:10)
[2021-01-23] MEDS: TORSEMIDE (DEMADEX) 50 MG PER 1/2 TAB PO SCH ×2 (13:50→17:00)
[2021-01-23] MEDS: APIXABAN 2.5 MG TAB (ELIQUIS) PO SCH ×2 (13:50→20:06)
[2021-01-23] MEDS: PANTOPRAZOLE 40MG TAB (PROTONIX) PO SCH (13:50)
[2021-01-23] MEDS: VALSARTAN 80 MG TAB (DIOVAN) PO SCH ×2 (13:51→20:05)
[2021-01-23] MEDS: **NOTE PATIENT COMMENT** MISC XX SCH (13:52)
[2021-01-23] MEDS: LIDOCAINE 5% (LIDODERM) PATCH TD PRN (14:22)
--- NOTE | 2021-01-23 14:38 | IPN ---
NEPHROLOGY PROGRESS NOTE DATE: 01/23/2021 SUBJECTIVE: Mr. Willson is seen this morning on his bedside during hemodialysis. He reports that he was still feeling somewhat dizzy this morning, His blood pressure was high, up to 170/80; however, now during dialysis, blood pressure is down to 130/72 mmHg. His heart rate is close to 60 per minute. He denies any nausea or vomiting. He has no dyspnea and discomfort in his chest and shoulder is persistent. PHYSICAL EXAMINATION: VITAL SIGNS: Temperature 97.4 degrees Fahrenheit, heart rate 68 per minute, respiratory rate 18 per minute, blood pressure now down to 130/72 mmHg, oxygen saturation 100%. HEAD: Atraumatic. NECK: Supple and without jugular venous distention (JVD) or thyroid enlargement. He has a hemodialysis catheter in right internal jugular vein. HEART SOUNDS: Regular. LUNGS: Clear to auscultation. ABDOMEN: Soft and nontender. Bowel sounds are normal. EXTREMITIES: Without any cyanosis or clubbing. He has some chronic edema, more on the right leg than on the left. He has a fistula in his left arm, which is not being used and not mature yet. LABORATORY DATA: Today's labs show WBC count 3.7, hemoglobin 11.0, hematocrit 34. Sodium 138, potassium 4.5, BUN 66, creatinine 5.34, calcium level is 9.0. PROBLEMS: 1. End-stage renal disease. Patient is being dialyzed and tolerating dialysis well. We are aiming to remove 2 liters of fluid as tolerated. He does have some leg edema; however, he is also feeling dizzy, so I do not want to remove any more than 2 liters today. It remains to be seen how he tolerates it. 2. Bradycardia. His clonidine patch dose has been cut down to 0.1 mg and bradycardia seems to be improved. Blood pressure was high this morning; however, not much better. 3. Congestive heart failure. Volume status seems to be reasonably well compensated. We will remove as much fluid as tolerated. 4. Anemia. His anemia is stable and does not need any urgent intervention.
--- NOTE | 2021-01-23 15:45 | IPNPDOC ---
Text Note Date of Service The patient was seen on 01/23/21. NOTE Subjective: Patient is a 75-year-old male who presented to the hospital with new onset dizziness. Patient states he is still having some of the dizziness however, patient's heart rate has improved. Patient's blood pressures were elevated but have since come down. Patient did have some orthostatic hypotension but was feeling better by the time I went to evaluate him. Patient denies having any dizziness when he moves his head from side to side but does feel dizzy when he stands up and walks. Patient was pending a PT evaluation today but had to go to hemodialysis. Review of systems: General: Patient denies fevers HEENT: Patient denies headaches Cardiovascular: Patient denies chest pain Respiratory: Patient denies shortness of breath, cough GI: Patient denies abdominal pain, nausea, vomiting, diarrhea : Patient denies increased frequency or pain with urination Extremities: Patient denies swelling or pain in extremities Neurological: Patient denies numbness or tingling in legs Physical exam: Vitals: See below General: Alert and oriented male patient was sitting on the edge of the bed eating breakfast when I walked in. Patient not appear to be in any acute distress. HEENT: Normocephalic, atraumatic, moist mucous membranes. Neck: No lymphadenopathy or thyromegaly Cardiac: Regular rate and rhythm, no murmurs, normal S1, normal S2 Pulm: Clear to auscultation bilaterally. No wheezes, rhonchi, rales Abd: Nondistended, nontender to palpation, normal bowel sounds Ext: No edema bilateral lower extremities Labs: See below Imaging: No new imaging is been performed Assessment/plan: 75-year-old male who presented to the hospital with new onset dizziness after hemodialysis who was initially found to have a heart rate in the 40s. 1. Dizziness. This may be secondary to symptomatic bradycardia. Patient's orthostatic vitals were positive this morning but have been negative otherwise. Clonidine was decreased to 0.1 mg patch. Patient's bradycardia has improved. 2. Atypical chest pain. Negative troponins and negative ECG. Chest pain does improve with Tylenol. Continue to monitor. Low suspicion for ACS due to negative troponins. 3. ESRD on hemodialysis on a Wednesday, , Wednesday schedule. I appreciate Dr. Wilson's help treating the patient. Patient was dialyzed today. 4. Pancytopenia secondary to ESRD. Monitor daily labs. This appears to be stable. 5. Type 2 diabetes mellitus. Continue sliding scale insulin with consistent carbohydrate diet. 6. Paroxysmal atrial fibrillation. Currently rate controlled. On Eliquis. 7. Hypertension. Continue home medication. 8. Heart failure with ejection fraction 45 to 50%. Patient had elevated BNP in the emergency room. Appears euvolemic on exam today. Continue with dialysis. 9. Hypothyroidism. Continue home medications. 10. Coronary artery disease status post CABG. Continue home Lipitor. 11. Gout. Continue medications. 12. GERD. Continue home pantoprazole. 13. BPH. Continue home tamsulosin. 14. Symptomatic bradycardia. This is improved with lower dose of clonidine DVT Prophylaxis: Eliquis Disposition: Pending improvement in dizziness, possible discharge tomorrow. VS,Fishbone, I+O VS, Fishbone, I+O Laboratory Tests 01/23/21 05:33 Vital Signs Date Time Temp Pulse Resp B/P (MAP) Pulse Ox O2 Delivery O2 Flow Rate FiO2 01/23/21 13:32 97.9 73 18 168/86 (113) 100 Room Air I&O- Last 24 Hours up to 6 AM 01/23/21 05:59 Intake Total 100 ml Output Total 150 ml Balance -50 ml EMMA LAMB DO Jan 23, 2021 15:45
[2021-01-23] MEDS: DOCUSATE SODIUM 100MG CAPSULE PO PRN (18:20)
[2021-01-23] MEDS: METAMUCIL (PSYLLIUM) PACKET PO SCH (20:05)
[2021-01-23] MEDS: ATORVASTATIN 20 MG TAB PO SCH (20:06)
[2021-01-23] MEDS: MULTIVITAMINS/MINERALS THERAP 1 TAB PO SCH (20:28)
[2021-01-23] MEDS: MORPHINE 4 MG/ML 1ML VIAL/SYRINGE (J2270) IV PRN (23:15)
[2021-01-24] VITALS: BP 154/80
[2021-01-24] MEDS ORDERED: RAMELTEON 8 MG TAB (ROZEREM) PO ONE (01:40)
[2021-01-24 04:00] VITALS: BP 142/68
[2021-01-24 05:35] LABS: HEMATOCRIT 32.8 % (42.0-52.0); HEMOGLOBIN 10.5 g/dl (13.5-17.5); MEAN CORPUSCULAR VOLUME 93.7 fl (80.0-96.0); PLATELET COUNT, AUTOMATED 149 10^3/uL (150-450); WHITE BLOOD COUNT 4.1 10^3/uL (4.0-10.0)
[2021-01-24 05:56] LABS: CREATININE FOR GFR 3.75 MG/DL (0.70-1.30); GLOMERULAR FILTRATION RATE 16.8 (>42); POTASSIUM SERUM 4.9 MEQ/L (3.5-5.1)
[2021-01-24] MEDS: LEVOTHYROXINE 88MCG TABLET (0.088 MG) PO SCH (06:43)
[2021-01-24 08:00] VITALS: BP 150/68
[2021-01-24] MEDS: HumaLOG INSULIN (NovoLOG) PER UNIT SC SCH ×4 (08:46→21:00)
[2021-01-24] MEDS: LIDOCAINE 5% (LIDODERM) PATCH TD PRN (10:24)
[2021-01-24] MEDS: VALSARTAN 80 MG TAB (DIOVAN) PO SCH ×2 (10:26→21:19)
[2021-01-24] MEDS: TORSEMIDE (DEMADEX) 50 MG PER 1/2 TAB PO SCH ×2 (10:26→17:38)
[2021-01-24] MEDS: METAMUCIL (PSYLLIUM) PACKET PO SCH ×2 (10:27→10:34)
[2021-01-24] MEDS: allopurinoL 100 MG TAB PO SCH (10:27)
[2021-01-24] MEDS: APIXABAN 2.5 MG TAB (ELIQUIS) PO SCH ×2 (10:27→21:20)
[2021-01-24] MEDS: PANTOPRAZOLE 40MG TAB (PROTONIX) PO SCH (10:27)
[2021-01-24 12:00] VITALS: BP 143/72
--- NOTE | 2021-01-24 13:03 | IPN ---
PROGRESS NOTE DATE: 01/24/2021 SUBJECTIVE: Mr. Willson is seen this morning on his bedside. He is sitting at the edge of the bed at present. He reports that he walked to the bathroom and felt very dizzy and had to be brought back to bed. He denies any chest pain or dyspnea. There is no fever, chills, nausea or vomiting. His heart rate has been in the 60s and up to 71 since his Clonidine dose was cut down. Blood pressure has been in the 140s to 150s most of the time. Patient was dialyzed yesterday and he tolerated the dialysis well. OBJECTIVE: VITAL SIGNS: Temperature 98.4 degrees Fahrenheit, heart rate 65 per minute and respiratory 18 per minute. Most recent blood pressure 141/64 mmHg and oxygen saturation 98% on room air. HEAD: Atraumatic. NECK: Supple without JVD or thyroid enlargement. HEART: His heart sounds are irregular in rhythm. LUNGS: Clear to auscultation. ABDOMEN: Soft and nontender. Bowel sounds are normal. EXTREMITIES: Without any cyanosis or clubbing. NEUROLOGIC: He is awake, alert and without any focal deficit. LABORATORY DATA: Today's labs showed a WBC count of 4.1, hemoglobin 10.5 and hematocrit 32.8, platelets 149,000. Sodium 139, potassium 4.9, CO2 24, BUN 40 and creatinine 3.75, glucose 99 and calcium 9.0. PROBLEMS: 1. Endstage renal disease. Patient was dialyzed yesterday and the next dialysis will be scheduled for tomorrow. No emergent need for dialysis today. 2. Congestive heart failure, volume status is well-compensated and will continue to manage with dialysis. He still has mild leg edema, however lungs sound clear. I would not favor aggressive fluid removal due to feeling dizzy. 3. Bradycardia and dizziness. His Clonidine patch dose has been cut down to 0.1 mg and heart rate has improved to 60s. Blood pressure is well-controlled, however he feels dizzy when he stands up. This is most likely orthostatic hypotension. 4. Atrial fibrillation. His heart rate is now well-controlled and he remains on Eliquis. All in all, medically, Mr. Willson seems to be doing well, however his dizziness persists. Hospitalist Service is investigating it further.
[2021-01-24 16:00] VITALS: BP 148/70
[2021-01-24] MEDS: TAMSULOSIN 0.4 MG CAP PO SCH (16:07)
[2021-01-24] MEDS: ACETAMINOPHEN TAB 650MG DOSE (2X325MG) PO PRN (16:08)
--- NOTE | 2021-01-24 17:37 | IPNPDOC ---
Text Note Date of Service The patient was seen on 01/24/21. NOTE Subjective: Patient is a 75-year-old male presented to hospital with new onset dizziness. Patient states that he is still having some dizziness patient when he gets up and walking around. Patient did work with physical therapy but apparently was very wobbly today because of the dizziness. Patient states he is not dizzy when he is moving his head from side to side. He only feels dizziness when he is getting up and moving around would make some very nervous. Patient denies having any pain at this time. Review of systems: General: Patient denies fevers HEENT: Patient denies headaches Cardiovascular: Patient denies chest pain Respiratory: Patient denies shortness of breath, cough GI: Patient denies abdominal pain, nausea, vomiting, diarrhea : Patient denies increased frequency or pain with urination Extremities: Patient denies swelling or pain in extremities Neurological: Patient denies numbness or tingling in legs Physical exam: Vitals: See below General: Alert and oriented male patient who was sitting on the edge of the bed eating paroxysm I walked in. Patient not appear to be in any acute distress. HEENT: Normocephalic, atraumatic, moist mucous membranes. Neck: No lymphadenopathy or thyromegaly Cardiac: Regular rate and rhythm, no murmurs, normal S1, normal S2 Pulm: Clear to auscultation bilaterally. No wheezes, rhonchi, rales Abd: Nondistended, nontender to palpation, normal bowel sounds Ext: No edema bilateral lower extremities Labs: See below Imaging: No new imaging is been performed Assessment/plan: 75-year-old male presented to hospital with new onset dizziness after hemodialysis was initially found to have symptomatic bradycardia 1. Dizziness. May be secondary to symptomatic bradycardia. Patient is clonidine patch has been decreased to 0.1 mg. His bradycardia has improved although he did have an episode today where his heart rate went in the 40s. Patient is still dizzy and will need to continue work with physical therapy throughout the weekend. 2. Atypical chest pain. Negative troponins and negative ECG. Chest pain does improve with Tylenol. Continue to monitor. 3. ESRD on hemodialysis on a Wednesday, , Wednesday schedule. I appreciate Dr. Wilson's help treating the patient. Patient will receive d ialysis again tomorrow. 4. Pancytopenia secondary to ESRD. Monitor daily labs. This appears to be stable. 5. Type 2 diabetes mellitus. Continue sliding scale insulin with consistent carbohydrate diet. 6. Paroxysmal atrial fibrillation. Currently rate controlled. On Eliquis. 7. Hypertension. Continue home medications. 8. Heart failure with ejection fraction of 45 to 50%. Patient elevated BNP in the emergency department. Appears euvolemic on exam today. Continue with dialysis. Patient does not appear to be in exacerbation. 9. Hypothyroidism. Continue home medications. 10. Coronary artery disease status post CABG. Continue Lipitor. 11. Gout. Continue home medications. 12. GERD. Continue home pantoprazole. 13. BPH. Continue home tamsulosin. 14. Symptomatic bradycardia. This has mostly improved but he did have an episode of bradycardia today. We will need to continue to monitor. DVT Prophylaxis: Eliquis Disposition: Pending improvement in dizziness. Patient will need to continue work with PT. VS,Fishbone, I+O VS, Fishbone, I+O Laboratory Tests 01/24/21 05:14 Vital Signs Date Time Temp Pulse Resp B/P (MAP) Pulse Ox O2 Delivery O2 Flow Rate FiO2 01/24/21 16:00 98.8 75 18 148/70 (96) 99 Room Air I&O- Last 24 Hours up to 6 AM 01/24/21 06:00 Intake Total 840 ml Output Total 2150 ml Balance -1310 ml EMMA LAMB DO Jan 24, 2021 17:37
[2021-01-24] MEDS: MIRALAX *UNIT DOSE* 17GM PACKET PO SCH (18:12)
[2021-01-24 20:00] VITALS: BP 136/65
[2021-01-24] MEDS: MULTIVITAMINS/MINERALS THERAP 1 TAB PO SCH (21:00)
[2021-01-24] MEDS: ATORVASTATIN 20 MG TAB PO SCH (21:18)
[2021-01-24] MEDS: MECLIZINE 25 MG TABLET PO SCH (21:20)
[2021-01-24] MEDS: **NOTE PATIENT COMMENT** MISC XX SCH (21:21)
[2021-01-25] VITALS (7 sets, daily range): BP systolic 106–165; BP diastolic 58–80
[2021-01-25] MEDS: RAMELTEON 8 MG TAB (ROZEREM) PO PRN (00:18)
[2021-01-25] MEDS: LEVOTHYROXINE 88MCG TABLET (0.088 MG) PO SCH (06:00)
[2021-01-25] MEDS: TORSEMIDE (DEMADEX) 50 MG PER 1/2 TAB PO SCH ×2 (06:04→17:43)
[2021-01-25] MEDS: VALSARTAN 80 MG TAB (DIOVAN) PO SCH ×2 (06:06→21:09)
[2021-01-25] MEDS: allopurinoL 100 MG TAB PO SCH (06:07)
[2021-01-25] MEDS: APIXABAN 2.5 MG TAB (ELIQUIS) PO SCH ×2 (06:08→21:09)
[2021-01-25] MEDS: PANTOPRAZOLE 40MG TAB (PROTONIX) PO SCH (06:08)
[2021-01-25] MEDS: MECLIZINE 25 MG TABLET PO SCH ×2 (06:11→21:08)
[2021-01-25] MEDS: TAMSULOSIN 0.4 MG CAP PO SCH ×3 (06:11→10:37)
[2021-01-25] MEDS: MIRALAX *UNIT DOSE* 17GM PACKET PO SCH ×2 (06:12→17:42)
[2021-01-25] MEDS: METAMUCIL (PSYLLIUM) PACKET PO SCH (06:12)
[2021-01-25] MEDS: HumaLOG INSULIN (NovoLOG) PER UNIT SC SCH ×4 (06:15→20:55)
[2021-01-25 06:29] LABS: HEMATOCRIT 31.5 % (42.0-52.0); MEAN CORPUSCULAR HEMOGLOBIN 30.2 pg (27.0-33.0); MEAN CORPUSCULAR HGB CONC 31.7 g/dl (32.0-36.5); MEAN CORPUSCULAR VOLUME 95.2 fl (80.0-96.0); PLATELET COUNT, AUTOMATED 137 10^3/uL (150-450); RED BLOOD COUNT 3.31 10^6/uL (4.30-6.10); WHITE BLOOD COUNT 3.5 10^3/uL (4.0-10.0)
[2021-01-25 06:52] LABS: CALCIUM LEVEL 9.4 MG/DL (8.8-10.2); CREATININE FOR GFR 5.08 MG/DL (0.70-1.30); GLOMERULAR FILTRATION RATE 11.8 (>42); POTASSIUM SERUM 4.9 MEQ/L (3.5-5.1)
[2021-01-25] MEDS: LIDOCAINE 5% (LIDODERM) PATCH TD PRN (08:20)
[2021-01-25] MEDS: ONDANSETRON 4 MG TAB PO PRN (10:29)
[2021-01-25] MEDS ORDERED: SODIUM CHLORIDE 0.9% 1000ML IV PRN (10:50)
--- NOTE | 2021-01-25 14:02 | IPNPDOC ---
Text Note Date of Service The patient was seen on 01/25/21. NOTE Subjective: Patient is a 75-year-old male presented hospital new onset dizzi ness. Patient is still having some dizziness work physical therapy today however, he was very wobbly when he worked with them and was still complaining of a lot of dizziness. Patient is not safe to be able to go home today. Patient only feels dizziness when getting up moving around and this makes him very nervous. Patient denies having any pain at this time. Review of systems: General: Patient denies fevers HEENT: Patient denies headaches Cardiovascular: Patient denies chest pain Respiratory: Patient denies shortness of breath, cough GI: Patient denies abdominal pain, nausea, vomiting, diarrhea : Patient denies increased frequency or pain with urination Extremities: Patient denies swelling or pain in extremities Neurological: Patient denies numbness or tingling in legs Physical exam: Vitals: See below General: Alert and oriented male patient is sitting on the edge of the bed ea ting breakfast when I walked in. Patient did not appear to be in any acute distress. HEENT: Normocephalic, atraumatic, moist mucous membranes. Neck: No lymphadenopathy or thyromegaly Cardiac: Regular rate and rhythm, no murmurs, normal S1, normal S2 Pulm: Clear to auscultation bilaterally. No wheezes, rhonchi, rales Abd: Nondistended, nontender to palpation, normal bowel sounds Ext: No edema bilateral lower extremities Labs: See below Imaging: No new imaging has been performed Assessment/plan: 75-year-old male presented hospital new onset Diazine is after hemodialysis was initially found to have symptomatic bradycardia. 1. Dizziness. May be secondary to symptomatic bradycardia although this is less likely as the patient symptomatic bradycardia has resolved at this time and the patient is still experiencing dizziness. Patient clonidine has been decreased to 0.1. Patient will need to continue working physical therapy. 2. Atypical chest pain. Negative troponins negative ECG. Continue to monitor. Chest pain does improve with Tylenol and every day have seen the patient, pepe ent says the pain is better than the day before. 3. ESRD on hemodialysis. Patient will continue on a Wednesday, , Wednesday schedule. I appreciate Dr. Wilson's help treating the patient. Aretha yang received dialysis today. 4. Pancytopenia secondary to ESRD. Monitor daily labs. This is been stable throughout the patient's hospitalization. 5. Type 2 diabetes mellitus. Continue sliding scale insulin with consistent carbohydrate diet. 6. Paroxysmal atrial fibrillation. Currently rate controlled and on Eliquis. 7. Hypertension. Continue patient's home medications. 8. Heart failure with ejection fraction of 45 to 50%. Patient's BNP was elevated emergency department. Patient appears euvolemic on exam today continue with dialysis for fluid management. Patient does not appear to be in acute exacerbation. 9. Hypothyroidism. Continue home medications. 10. Coronary artery disease status post CABG. Continue Lipitor. 11. Gout. Continue home medications. 12. GERD. Continue home pantoprazole. 13. BPH. Continue home tamsulosin. 14. Symptomatic bradycardia. This is mostly improved. Patient has had a few episodes of bradycardia although these are short-lived. Patient's heart rate has been in the 60s to 70s. We will continue to monitor. DVT Prophylaxis: Eliquis Disposition: Pending provement in dizziness. Patient will need to continue to work with physical therapy. VS,Sadiq, I+O VS, Sadiq, I+O Laboratory Tests 01/25/21 05:21 Vital Signs Date Time Temp Pulse Resp B/P (MAP) Pulse Ox O2 Delivery O2 Flow Rate FiO2 01/25/21 08:00 97.8 87 18 146/69 (94) 98 Room Air I&O- Last 24 Hours up to 6 AM 01/25/21 05:59 Intake Total 720 ml Output Total 0 ml Balance 720 ml EMMA LAMB DO Jan 25, 2021 14:02
[2021-01-25] MEDS: MULTIVITAMINS/MINERALS THERAP 1 TAB PO SCH (21:00)
[2021-01-25] MEDS: ATORVASTATIN 20 MG TAB PO SCH (21:08)
[2021-01-25] MEDS: **NOTE PATIENT COMMENT** MISC XX SCH (21:09)
[2021-01-25] MEDS: DOCUSATE SODIUM 100MG CAPSULE PO PRN (21:35)
[2021-01-26] VITALS: BP 121/55
[2021-01-26 04:00] VITALS: BP 132/86
[2021-01-26] MEDS: LEVOTHYROXINE 88MCG TABLET (0.088 MG) PO SCH ×2 (05:52→07:53)
[2021-01-26 06:01] LABS: HEMATOCRIT 32.1 % (42.0-52.0); HEMOGLOBIN 10.4 g/dl (13.5-17.5); MEAN CORPUSCULAR HEMOGLOBIN 30.3 pg (27.0-33.0); MEAN CORPUSCULAR HGB CONC 32.4 g/dl (32.0-36.5); MEAN CORPUSCULAR VOLUME 93.6 fl (80.0-96.0); PLATELET COUNT, AUTOMATED 143 10^3/uL (150-450); RED BLOOD COUNT 3.43 10^6/uL (4.30-6.10)
[2021-01-26 06:25] LABS: CREATININE FOR GFR 3.86 MG/DL (0.70-1.30); GLOMERULAR FILTRATION RATE 16.2 (>42); POTASSIUM SERUM 4.7 MEQ/L (3.5-5.1)
[2021-01-26 07:35] VITALS: BP 168/64
[2021-01-26] MEDS: METAMUCIL (PSYLLIUM) PACKET PO SCH (09:00)
[2021-01-26] MEDS: HumaLOG INSULIN (NovoLOG) PER UNIT SC SCH ×4 (09:05→22:06)
[2021-01-26] MEDS: APIXABAN 2.5 MG TAB (ELIQUIS) PO SCH ×2 (09:06→22:06)
[2021-01-26] MEDS: TAMSULOSIN 0.4 MG CAP PO SCH (09:06)
[2021-01-26] MEDS: TORSEMIDE (DEMADEX) 50 MG PER 1/2 TAB PO SCH ×2 (09:07→17:34)
[2021-01-26] MEDS: ACETAMINOPHEN TAB 650MG DOSE (2X325MG) PO PRN ×2 (09:07→22:09)
[2021-01-26] MEDS: PANTOPRAZOLE 40MG TAB (PROTONIX) PO SCH (09:07)
[2021-01-26] MEDS: MECLIZINE 25 MG TABLET PO SCH ×2 (09:08→22:05)
[2021-01-26] MEDS: allopurinoL 100 MG TAB PO SCH (09:08)
[2021-01-26] MEDS: VALSARTAN 80 MG TAB (DIOVAN) PO SCH ×2 (09:09→22:06)
[2021-01-26] MEDS: MIRALAX *UNIT DOSE* 17GM PACKET PO SCH (09:10)
[2021-01-26] MEDS: LIDOCAINE 5% (LIDODERM) PATCH TD PRN (09:10)
--- NOTE | 2021-01-26 10:22 | IPNPDOC ---
Text Note Date of Service The patient was seen on 01/26/21. NOTE Subjective: Patient is a 75-year-old male presented to the hospital new onset dizziness. Patient is still having some dizziness working with physical therapy and when he is walking in the room. Patient describes his episodes as sporadic and does not know when there can happen. Patient's heart rate being low is not correlated to the patient having dizziness. Patient states last night he was sitting in the chair when he started feeling some dizziness. Patient went back into bed and felt better. Patient was able to get back to the chair did not experience any other dizzy spells. Patient is very anxious about walking around because he does not know when these dizzy spells again happen. Patient does not have any other complaints at this time. Review of systems: General: Patient denies fevers HEENT: Patient denies headaches Cardiovascular: Patient denies chest pain Respiratory: Patient denies shortness of breath, cough GI: Patient denies abdominal pain, nausea, vomiting, diarrhea : Patient denies increased frequency or pain with urination Extremities: Patient denies swelling or pain in extremities Neurological: Patient denies numbness or tingling in legs Physical exam: Vitals: See below General: Alert and oriented male patient who was sitting on the edge of the bed when I walked in. Patient not appear to be in any acute distress. HEENT: Normocephalic, atraumatic, moist mucous membranes. Neck: No lymphadenopathy or thyromegaly Cardiac: Regular rate and rhythm, no murmurs, normal S1, normal S2 Pulm: Clear to auscultation bilaterally. No wheezes, rhonchi, rales Abd: Nondistended, nontender to palpation, normal bowel sounds Ext: No edema bilateral lower extremities Labs: See below Imaging: No new imaging is been performed Assessment/plan: 75-year-old male presented to the hospital new onset dizziness after hemodialysis was initially found to have bradycardia. 1. Dizziness. Patient will need to work with vestibular physical therapy on Wednesday however, I am unsure of the patient's a cause of the dizziness. Patient's dizziness did not correlate with the patient's low heart rate as the patient's only had a few episodes of his heart rate being down below 50 however, his heart rate does quickly responded patient denies symptoms at these times. Patient's dizziness seems to come on randomly. Patient will need to continue work with physical therapy. 2. Atypical chest pain. Negative troponins and negative ECG. Continue to mon itor. Chest pain did improve with Tylenol. Patient not complain of any pain today. 3. ESRD on hemodialysis. Continue on Wednesday, , Wednesday schedule. I appreciate Dr. Wilson's help treating the patient. Patient received dialysis yesterday and it went well. 4. Pancytopenia. Monitor daily labs. This is been stable throughout the patient's hospitalization. 5. Type 2 diabetes mellitus. Continue sliding scale insulin with consistent carbohydrate diet. 6. Paroxysmal atrial fibrillation. Currently rate controlled. Continue Eliquis for anticoagulation. 7. Hypertension. Continue patient's home medications. 8. Heart failure with ejection fraction of 45 to 50%. Patient's BNP was elevated when he was admitted. Patient appears euvolemic on examination today. Dialysis will be continued for fluid management. Patient does not appear to be in acute exacerbation today. 9. Hypothyroidism. I expressed the importance of taking his levothyroxine at least 30 minutes prior to taking anything else to eat or any other medications in order to help with this. Patient is been complaining of fatigue and states has been taking this medication with all of his other medications after breakfast. 10. Coronary artery disease status post CABG. Continue home medications. 11. Gout. Continue home medications. 12. GERD. Continue home pantoprazole 13. BPH. Continue home tamsulosin 14. Bradycardia. Patient had a few episodes of bradycardia but does not have any symptoms with this. Clonidine has been decreased from 0.2 mg to 0.1 mg and this appears to have helped. DVT Prophylaxis: Eliquis Disposition: Pending improvement in dizziness, patient be downgraded to MedSurg status. VS,Fishbone, I+O VS, Fishbone, I+O Laboratory Tests 01/26/21 05:09 Vital Signs Date Time Temp Pulse Resp B/P (MAP) Pulse Ox O2 Delivery O2 Flow Rate FiO2 01/26/21 09:09 168/64 01/26/21 07:35 99.1 71 20 98 Room Air I&O- Last 24 Hours up to 6 AM 01/26/21 06:00 Intake Total 980 ml Output Total 2500 ml Balance -1520 ml EMMA LAMB DO Jan 26, 2021 10:22
[2021-01-26 14:00] VITALS: BP 128/64
--- NOTE | 2021-01-26 16:33 | IPN ---
PROGRESS NOTE DATE: 01/25/2021 SUBJECTIVE: Mr. Willson is seen and examined this morning at the bedside. He reports he still feels a little bit wobbly when he works with physical therapy. He is due for dialysis this afternoon. He is later seen receiving his dialysis treatment without any issue. He denies any shortness of breath. OBJECTIVE: VITAL SIGNS: Temperature 98.1, pulse 82, respiratory rate 18, blood pressure 140/62, saturating 100% on room air. INTAKE/OUTPUT: Intake yesterday was 720. Goal dialysis load removal today is 2.5 liters. Weight in the bed scale today is 70.1 kg. GENERAL: Patient is seen awake, alert and oriented, comfortable, in no distress. HEENT: Extraocular muscles are intact. Tongue is moist. Neck is supple. There is a tunneled hemodialysis catheter in the right chest wall currently in use. Jugular veins are not elevated. HEART: Heart sounds are irregular, S1, S2. There is trace to 1+ peripheral edema. LUNGS: Clear to auscultation. No crackle or rale. ABDOMEN: Soft and nontender. EXTREMITIES: There is a fistula in the left arm, which is patent with thrill and bruit. Lower extremities show trace to 1+ edema. NEUROLOGIC: He is oriented x3, interactive, conversational, at baseline mentation. SKIN: Warm and dry. Normal turgor. LABORATORY DATA: Sodium 140, potassium 4.9, bicarbonate 22, BUN 67, creatinine 5.0. Hemoglobin 10.0, platelets 137,000. INPATIENT MEDICATIONS: Reviewed by myself. No changes noted over the past 24 hours. PROBLEMS: 1. End-stage renal disease on hemodialysis on a Wednesday, , Wednesday schedule: Patient is due for dialysis today. He is seen in the dialysis unit with goal fluid removal of 2.5 liters today. His electrolytes and volume status are acceptable. His Permacath is in good use. He will follow-up with vascular surgery as an outpatient for further work on his left upper extremity AV fistula. His next dialysis will be on Wednesday. 2. Anemia related to chronic renal failure: Hemoglobin is 10.0 on the latest labs which is optimal and no specific intervention is needed at this time. 3. Hypertension: Blood pressures are acceptable, systolic is mostly 140's and he is on Clonidine and Valsartan along with Torsemide. I made no change to his regimen. His heart rate is mostly 70's to 80's now. 4. Atrial fibrillation: He remains rate controlled and is on Eliquis anticoagulation. 5. Systolic congestive heart failure: Recent echocardiogram done in October shows left ventricular ejection fraction of 45%. Patient's volume status is acceptably compensated and is regulated via dialysis and we are removing 2.5 liters with his treatment today.
--- NOTE | 2021-01-26 16:50 | IPN ---
NEPHROLOGY PROGRESS NOTE DATE: 01/26/2021 SUBJECTIVE: Mr. Willson is seen and examined this morning at the bedside. He complains of ongoing episodic dizziness. Says it is not as severe as an episode he has had in the past, which was felt to be vertigo, but he continues to feel intermittently dizzy. There has not been any documented hypotension, nor any documented bradycardia. He was dialyzed yesterday without any issues. PHYSICAL EXAMINATION: VITAL SIGNS: Temperature 98.5, pulse 84, respiratory rate 18, blood pressure 128/64, saturating 96% on room air. INTAKE AND OUTPUT: Intake yesterday was 1 liter. Dialysis removed 2. 5 liters. Weight in the bed scale is 70.2 kg. GENERAL: Patient seen awake, alert and oriented, sitting in the chair, elderly male in no distress. HEENT: Extraocular muscles are intact. Tongue is moist. NECK: Supple. Jugular veins are not elevated. There is a tunneled hemodialysis catheter in the right chest wall. HEART SOUNDS: Regular. S1, S2. There is no murmur. There is only, at most, trace leg edema in the ankle and foot. LUNGS: Clear to auscultation. No crackle or rale. ABDOMEN: Soft and nontender. EXTREMITIES: There is a fistula in the left arm, which is patent with thrill and bruit. NEUROLOGIC: He is oriented times three, interactive and conversational. PSYCHIATRIC: Appropriate mood and affect. LABORATORY STUDIES: White count 4.0, hemoglobin 10.4, platelets 143. Sodium 138, potassium 4.7, bicarbonate 28, BUN 41, creatinine 3.8. No new imaging. INPATIENT MEDICATIONS: Reviewed by myself and I note no new changes except for as needed Zofran that was added yesterday. PROBLEMS: 1. End-stage renal disease on hemodialysis on a Wednesday, , Wednesday schedule. Patient was dialyzed yesterday and 2.5 liters of fluid were removed. His volume status is acceptable. His electrolytes are within normal limits. His next dialysis treatment will be on Wednesday. No changes are being made to his current prescription. 2. Systolic congestive heart failure. Compensated with three times weekly hemodialysis and patient continues with moderate fluid restriction. 3. Hypertension and atrial fibrillation in this patient with recent complaint of dizziness and recent bradycardia. Heart rate is now mostly 70s to 80, with the lowest documented heart rate the past 48 hours being 64 beats per minute. He continues on Eliquis low dose anticoagulation along with clonidine and valsartan and torsemide. I made no changes. 4. Anemia related to chronic renal failure. Hemoglobin is at goal. Aranesp is presently on hold.
[2021-01-26 18:00] VITALS: BP 128/64
[2021-01-26 22:00] VITALS: BP 129/63
[2021-01-26] MEDS: ATORVASTATIN 20 MG TAB PO SCH (22:06)
[2021-01-26] MEDS: MULTIVITAMINS/MINERALS THERAP 1 TAB PO SCH ×2 (22:06→22:20)
[2021-01-26] MEDS: DOCUSATE SODIUM 100MG CAPSULE PO PRN (22:07)
[2021-01-26] MEDS: **NOTE PATIENT COMMENT** MISC XX SCH (22:07)
[2021-01-26] MEDS: RAMELTEON 8 MG TAB (ROZEREM) PO PRN (22:07)
[2021-01-27] MEDS: RAMELTEON 8 MG TAB (ROZEREM) PO PRN (00:06)
[2021-01-27 05:57] LABS: HEMATOCRIT 31.7 % (42.0-52.0); HEMOGLOBIN 10.2 g/dl (13.5-17.5); MEAN CORPUSCULAR HEMOGLOBIN 30.3 pg (27.0-33.0); MEAN CORPUSCULAR HGB CONC 32.2 g/dl (32.0-36.5); MEAN CORPUSCULAR VOLUME 94.1 fl (80.0-96.0); PLATELET COUNT, AUTOMATED 136 10^3/uL (150-450); RED BLOOD COUNT 3.37 10^6/uL (4.30-6.10); WHITE BLOOD COUNT 4.2 10^3/uL (4.0-10.0)
[2021-01-27 06:00] VITALS: BP 147/72
[2021-01-27] MEDS: LEVOTHYROXINE 88MCG TABLET (0.088 MG) PO SCH (06:20)
[2021-01-27 06:30] LABS: CALCIUM LEVEL 9.4 MG/DL (8.8-10.2); CREATININE FOR GFR 5.32 MG/DL (0.70-1.30); GLOMERULAR FILTRATION RATE 11.2 (>42); POTASSIUM SERUM 4.9 MEQ/L (3.5-5.1)
[2021-01-27] MEDS: HumaLOG INSULIN (NovoLOG) PER UNIT SC SCH ×6 (08:24→20:37)
[2021-01-27] MEDS: APIXABAN 2.5 MG TAB (ELIQUIS) PO SCH ×2 (08:24→20:46)
[2021-01-27] MEDS: TORSEMIDE (DEMADEX) 50 MG PER 1/2 TAB PO SCH ×2 (08:25→17:17)
[2021-01-27] MEDS: VALSARTAN 80 MG TAB (DIOVAN) PO SCH ×2 (08:26→20:57)
[2021-01-27] MEDS: allopurinoL 100 MG TAB PO SCH (08:26)
[2021-01-27] MEDS: METAMUCIL (PSYLLIUM) PACKET PO SCH (08:27)
[2021-01-27] MEDS: PANTOPRAZOLE 40MG TAB (PROTONIX) PO SCH (08:27)
[2021-01-27] MEDS: MECLIZINE 25 MG TABLET PO SCH ×2 (08:27→20:46)
[2021-01-27] MEDS: TAMSULOSIN 0.4 MG CAP PO SCH (08:28)
[2021-01-27] MEDS: DOCUSATE SODIUM 100MG CAPSULE PO PRN (08:30)
[2021-01-27] MEDS: MIRALAX *UNIT DOSE* 17GM PACKET PO SCH (08:30)
[2021-01-27] MEDS: LIDOCAINE 5% (LIDODERM) PATCH TD PRN (08:32)
--- NOTE | 2021-01-27 15:04 | IPN ---
INPATIENT NEPHROLOGY PROGRESS NOTE DATE: 01/27/2021 SUBJECTIVE: Mr. Willson is seen and examined this morning at the bedside. He reports he continues to feel dizzy episodically and was not able to work out much with physical therapy today because of that. He otherwise denies any complaints. PHYSICAL EXAMINATION: Vital signs: Temperature 97.2, pulse 80, respiratory rate 16, blood pressure 147/72, saturating 97% on room air. Intake yesterday was 1840. Weight on the bed scale today is not recorded. General: Patient is seen sitting up at the edge of the bed with his legs dangling; an elderly male awake, alert and oriented times 3 comfortable in no distress. HEENT: Extraocular muscles are intact. There is some bitemporal wasting. Neck: Supple, jugular veins are not elevated. Chest: There is a tunneled hemodialysis catheter in the right chest wall. Heart sounds: Regular S1 and S2. There is trace peripheral edema. Lungs: Clear to auscultation, no crackle or rale. Abdomen: Soft and nontender. Extremities: There is chronic venous stasis changes and trace edema in the legs. There is a fistula in the left arm which is patent. Neurologic: He is oriented times 3, interactive and conversational. Skin: Warm and dry, normal turgor and temperature. LABORATORY DATA: White count 4.2, hemoglobin 10.2, platelets 136. Sodium 138, potassium 4.9, bicarbonate 25, BUN 75. INPATIENT MEDICATIONS: Reviewed by myself. I cut down the dose of valsartan so that he will not receive it on the mornings of dialysis days. His remainder of medications are unchanged as compared to yesterday. PROBLEMS/PLAN: 1. End-stage renal disease: On hemodialysis on a Wednesday, , Wednesday schedule. Patient will be dialyzed tomorrow. His electrolytes and volume status are acceptable. He will follow up with vascular surgery outpatient for his fistula. I cut down the dose of valsartan on dialysis days in order to prevent hypotension following fluid removal with dialysis. 2. Anemia related to chronic renal failure: Hemoglobin is just over 10 which is optimal and no specific intervention is needed at this time. 3. Hypertension: Blood pressures are acceptably controlled. Systolic the past 24 hours has been mostly 120s-140s and valsartan was cut down on dialysis days. I made no other changes to the current anti-hypertensive regimen.
--- NOTE | 2021-01-27 15:05 | IPNPDOC ---
Text Note Date of Service The patient was seen on 01/27/21. NOTE Subjective: Patient is a 75-year-old male who presented to the hospital with new onset dizziness. Patient states he had one episode of dizziness this morning but did not have any episodes of dizziness overnight. Patient worked in physical therapy today was having some dizziness so was not able to complete a full treatment. Patient denies any other complaints at this time. Patient's chest pain is resolved at this time. Patient is very anxious about the dizziness and states that he does not want to push himself because he is afraid that the dizziness will cause him to fall and causing him to get hurt. Patient does not have any other complaints at this time. Review of systems: General: Patient denies fevers HEENT: Patient denies headaches Cardiovascular: Patient denies chest pain Respiratory: Patient denies shortness of breath, cough GI: Patient denies abdominal pain, nausea, vomiting, diarrhea : Patient denies increased frequency or pain with urination Extremities: Patient denies swelling or pain in extremities Neurological: Patient denies numbness or tingling in legs Physical exam: Vitals: See below General: Alert and oriented male patient who was sitting on the edge of the bed when I walked in the room. Patient did not appear to be in any acute distress. HEENT: Normocephalic, atraumatic, moist mucous membranes. Neck: No lymphadenopathy or thyromegaly Cardiac: Regular rate and rhythm, no murmurs, normal S1, normal S2 Pulm: Clear to auscultation bilaterally. No wheezes, rhonchi, rales Abd: Nondistended, nontender to palpation, normal bowel sounds Ext: No edema bilateral lower extremities Labs: See below Imaging: No new imaging echo performed Assessment/plan: 75-year-old male presented to hospital with new onset dizziness after hemod ialysis was initially found to be bradycardic who continues to have dizziness despite bradycardia resolved at this time. 1. Dizziness. Patient will need to continue to work with vestibular therapy as well as physical therapy. Patient had his valsartan cut in half by nephrology on dialysis days. Patient will continue with the current treatment. Patient will need to continue to work with physical therapy. Patient dizziness seems to come on randomly. Heart rate has been within the normal range and the patient's dizziness does not correlate with the patient's bradycardic episodes which have stopped since clonidine as switched from 0.2 mg patch to 0.1 mg patch. 2. Atypical chest pain. Negative troponins negative ECG. Continue to monitor. Patient's chest pain did improve with Tylenol does not complain of any chest pain today. 3. ESRD on hemodialysis. Continue on a Wednesday, , Wednesday schedule. I appreciate Dr. Wilson's help treating the patient. Patient will receive dialysis tomorrow. 4. Pancytopenia. Monitor daily labs. This is stable throughout the patient's hospitalization. 5. Type 2 diabetes mellitus. Sliding scale insulin with consistent carbohydrate diet. 6. Paroxysmal atrial fibrillation. Currently rate controlled. Continue with Eliquis for anticoagulation. 7. Hypertension. Regimen has been managed by nephrology. Valsartan has been decreased on dialysis days. 8. Heart failure with ejection fraction 45 to 50%. BNP was elevated when admitted. Patient appears euvolemic. Dialysis will continue for fluid management. Patient does not appear to be in acute exacerbation today. 9. Hypothyroidism. I did express the importance of taking levothyroxine least 30 minutes prior to taking anything to eat or drink. Patient has been comp laining of fatigue and states he has been taking all his medications with his breakfast. 10. Coronary artery disease status post CABG. Continue home medications. 11. Gout. Continue home medications. 12. GERD. Continue home medications. 13. BPH. Continue home medications. 14. Bradycardia. Patient had a few episodes of bradycardia but these do not correlate with the patient's dizziness. Clonidine has decreased from 0.2 to 0.1 mg patch and this appears with help of bradycardia. DVT Prophylaxis: Eliquis Disposition: Pending improvement in dizziness. Patient has been made ALC status at this time. VS,Fishbone, I+O VS, Fishbone, I+O Laboratory Tests 01/27/21 05:20 Vital Signs Date Time Temp Pulse Resp B/P (MAP) Pulse Ox O2 Delivery O2 Flow Rate FiO2 01/27/21 08:26 148/73 01/27/21 06:00 97.2 80 16 97 Room Air I&O- Last 24 Hours up to 6 AM 01/27/21 06:00 Intake Total 2136 ml Output Total 0 ml Balance 2136 ml EMMA LAMB DO Jan 27, 2021 15:05
[2021-01-27] MEDS: ACETAMINOPHEN TAB 650MG DOSE (2X325MG) PO PRN (17:16)
[2021-01-27] MEDS: **NOTE PATIENT COMMENT** MISC XX SCH (20:38)
[2021-01-27] MEDS: ATORVASTATIN 20 MG TAB PO SCH (20:47)
[2021-01-27] MEDS: MULTIVITAMINS/MINERALS THERAP 1 TAB PO SCH (20:47)
[2021-01-27 22:00] VITALS: BP 153/70
[2021-01-28] MEDS: ACETAMINOPHEN TAB 650MG DOSE (2X325MG) PO PRN ×3 (01:22→21:16)
[2021-01-28 06:00] VITALS: BP 178/94
[2021-01-28] MEDS: METAMUCIL (PSYLLIUM) PACKET PO SCH (06:11)
[2021-01-28 06:46] LABS: HEMOGLOBIN 10.4 g/dl (13.5-17.5); MEAN CORPUSCULAR HEMOGLOBIN 30.4 pg (27.0-33.0); MEAN CORPUSCULAR HGB CONC 32.5 g/dl (32.0-36.5); MEAN CORPUSCULAR VOLUME 93.6 fl (80.0-96.0); PLATELET COUNT, AUTOMATED 136 10^3/uL (150-450); RED BLOOD COUNT 3.42 10^6/uL (4.30-6.10)
[2021-01-28 06:56] LABS: CREATININE FOR GFR 5.94 MG/DL (0.70-1.30); GLOMERULAR FILTRATION RATE 9.9 (>42); POTASSIUM SERUM 5.2 MEQ/L (3.5-5.1)
[2021-01-28] MEDS: LEVOTHYROXINE 88MCG TABLET (0.088 MG) PO SCH (07:04)
[2021-01-28] MEDS: TORSEMIDE (DEMADEX) 50 MG PER 1/2 TAB PO SCH ×2 (07:04→18:22)
[2021-01-28] MEDS: MIRALAX *UNIT DOSE* 17GM PACKET PO SCH (07:04)
[2021-01-28] MEDS: allopurinoL 100 MG TAB PO SCH (07:04)
[2021-01-28] MEDS: PANTOPRAZOLE 40MG TAB (PROTONIX) PO SCH (07:04)
[2021-01-28] MEDS: MECLIZINE 25 MG TABLET PO SCH ×2 (07:04→21:15)
[2021-01-28] MEDS: TAMSULOSIN 0.4 MG CAP PO SCH (07:04)
[2021-01-28] MEDS: APIXABAN 2.5 MG TAB (ELIQUIS) PO SCH ×2 (07:04→21:15)
[2021-01-28] MEDS: DOCUSATE SODIUM 100MG CAPSULE PO PRN (07:05)
[2021-01-28] MEDS: ONDANSETRON 4 MG TAB PO PRN ×2 (07:05→23:09)
[2021-01-28] MEDS: LIDOCAINE 5% (LIDODERM) PATCH TD PRN (07:05)
[2021-01-28] MEDS: HumaLOG INSULIN (NovoLOG) PER UNIT SC SCH ×5 (07:30→21:00)
[2021-01-28] MEDS ORDERED: SODIUM CHLORIDE 0.9% 1000ML IV PRN (07:50)
[2021-01-28] MEDS: VALSARTAN 80 MG TAB (DIOVAN) PO SCH ×2 (07:58→20:57)
[2021-01-28 07:59] VITALS: BP 164/76
[2021-01-28] MEDS ORDERED: CLON0.1D3 TD (08:47)
[2021-01-28] MEDS ORDERED: MECL-86 PO (08:47)
--- NOTE | 2021-01-28 11:32 | IPNPDOC ---
Subjective Date Seen The patient was seen on 01/28/21. Subjective Chief Complaint/HPI SUBJECTIVE: Patient was seen at bedside rounds at the dialysis center this morning. He's being dialyzed via his permacath and was not in any acute distress. He complained that he was dizzy when working with PT yesterday and was only able to walk a few feet without getting dizzy again. He states that he is not really to get discharged and wants to work further with PT. Denies any fever, chills, cough, SOB, abdominal discomfort. OBJECTIVE: VS: see below General: Thin elderly gentleman who is getting dialysis via his permacath in the dialysis center this morning. He's not in any acute distress. AAOx3 HEENT: Extraocular muscles are intact. There is some bitemporal wasting. Neck: Supple, jugular veins are not elevated. Chest: There is a tunneled hemodialysis catheter in the right chest wall through which he's getting dialysis Heart sounds: Regular S1 and S2. There is trace peripheral edema. Lungs: Clear to auscultation, no crackle or rale or rhonci. Abdomen: Soft and nontender. Extremities: There is chronic venous stasis changes and trace edema in the legs. There is a fistula in the left arm which is patent. Neurologic: No focal deficits. Interactive and conversational. Skin: Warm and dry, normal turgor and temperature. IMPRESSION AND PLAN: 1. End-stage renal disease. On hemodialysis on a Wednesday, , Wednesday schedule. Patient is being dialyzed this morning via his tunneled permacath. His electrolytes and volume status are acceptable. He will follow up with vascular surgery outpatient for his fistula. His ARB was decreased yesterday given he's on dialysis and to prevent hypotension with fluid removal. 2. Anemia related to chronic renal failure. Hemoglobin is just over 10 still which is optimal and no specific intervention is needed at this time. 3. Hypertension. Blood pressures medication Valsartan was cut down yesterday given he will get dialyzed today and to prevent hypotension. His SBP was in the 160s this morning; however, with fluid removal, expect it to decrease. 4. Episodic dizziness. Patient is apprehensive about getting discharged since he stated he felt dizzy still while working with PT yesterday. Primary team is ordering for a vestibular study prior to discharge to further assess. VS, I&O, 24H, Fishbone Vital Signs/I&O Vital Signs Date Time Temp Pulse Resp B/P (MAP) Pulse Ox O2 Delivery O2 Flow Rate FiO2 01/28/21 07:59 164/76 (105) 01/28/21 06:00 72 17 99 Room Air 01/28/21 06:00 97.4 I&O- Last 24 Hours up to 6 AM 01/28/21 06:00 Intake Total 990 ml Output Total 300 ml Balance 690 ml Laboratory Data 24H LABS Laboratory Tests 2 01/27/21 11:37: Bedside Glucose (Misc Panel) 108 01/27/21 16:54: Bedside Glucose (Misc Panel) 207H 01/27/21 20:36: Bedside Glucose (Misc Panel) 167H 01/28/21 06:16: Nucleated Red Blood Cells % (auto) 0.0, Anion Gap 10, Glomerular Filtration Rate 9.9L, Calcium Level 10.0 CBC/BMP Laboratory Tests 01/28/21 06:16 GME ATTESTATION GME ATTESTATION My faculty preceptor for this patient encounter was physically present during the encounter and was fully available. All aspects of the patient interview, examination, medical decision making process, and medical care plan development were reviewed and approved by the faculty preceptor. The faculty preceptor is aware and concurs with the plan as stated in the body of this note and will attest to such by his/her cosignature. Sho Doe DO Jan 28, 2021 11:32
[2021-01-28 13:14] VITALS: BP 136/72
[2021-01-28 14:00] VITALS: BP 134/73
--- NOTE | 2021-01-28 14:28 | IPNPDOC ---
Date Seen The patient was seen on 01/28/21. Progress Note Subjective: Patient remains in ALC status. Denies any shortness of breath dizziness lightheadedness this morning but says he feels uncomfortable going home since he lives alone. Despite high blood pressure this morning patient denies any chest pain pressure tightness changes in vision headaches Physical exam: Vitals: See below General: No distress HEENT: Normocephalic, atraumatic, moist mucous membranes. Neck: No lymphadenopathy or thyromegaly no carotid bruit Cardiac: Regular rate and rhythm, no murmurs, normal S1, normal S2 no S3 Pulm: Clear to auscultation bilaterally. No wheezes, rhonchi, rales air entry is equal bilaterally Abd: Nondistended, nontender to palpation, normal bowel sounds Ext: No edema bilateral lower extremities Labs: See below Imaging: No new imaging echo performed Assessment/plan: 75-year-old male presented to hospital with new onset dizziness after hemodi alysis was initially found to be bradycardic who continues to have dizziness despite bradycardia resolved at this time. Vertigo Working with physical therapy and Occupational Therapy Lives alone and feels uncomfortable being discharged On meclizine twice daily Atypical chest pain. Negative cardiac work-up with unremarkable EKG and troponin PPI ESRD on hemodialysis. Nephrology consulted for dialysis needs continue on a Wednesday, , Wednesday schedule. Pancytopenia. No acute indication for RBC or platelet transfusions Type 2 diabetes mellitus. Sliding scale insulin with consistent carbohydrate diet. Paroxysmal atrial fibrillation. Currently rate controlled. Continue with Eliquis for anticoagulation. Hypertension. Regimen has been managed by nephrology. On valsartan on torsemide No signs of orthostasis Heart failure with ejection fraction 45 to 50%. BNP was elevated when admitted. Patient appears euvolemic. Dialysis will continue for fluid management. Patient does not appear to be in acute exacerbation today. Hypothyroidism. Synthroid Coronary artery disease status post CABG. Continue home medications. Gout. Continue home medications. GERD. Continue home medications. BPH. Continue home medications. Bradycardia. Clonidine has decreased from 0.2 to 0.1 mg patch and this appears with help of bradycardia. DVT Prophylaxis: Eliquis Disposition: Changed to ALC status. VS, I&O, 24H, Fishbone Vital Signs/I&O Vital Signs Date Time Temp Pulse Resp B/P (MAP) Pulse Ox O2 Delivery O2 Flow Rate FiO2 01/28/21 13:14 136/72 (93) 01/28/21 06:00 72 17 99 Room Air 01/28/21 06:00 97.4 I&O- Last 24 Hours up to 6 AM 01/28/21 06:00 Intake Total 990 ml Output Total 300 ml Balance 690 ml Laboratory Data 24H LABS Laboratory Tests 2 01/27/21 16:54: Bedside Glucose (Misc Panel) 207H 01/27/21 20:36: Bedside Glucose (Misc Panel) 167H 01/28/21 06:16: Nucleated Red Blood Cells % (auto) 0.0, Anion Gap 10, Glomerular Filtration Rate 9.9L, Calcium Level 10.0 01/28/21 14:07: Bedside Glucose (Misc Panel) 130H 01/28/21 14:21: Bedside Glucose (Misc Panel) 147H CBC/BMP Laboratory Tests 01/28/21 06:16 ABEBA RUBIO MD Jan 28, 2021 14:28
[2021-01-28] MEDS ORDERED: FIORICET TAB PO ONE (17:35)
[2021-01-28] MEDS: MULTIVITAMINS/MINERALS THERAP 1 TAB PO SCH (20:47)
[2021-01-28 21:03] VITALS: BP 119/56
[2021-01-28] MEDS: **NOTE PATIENT COMMENT** MISC XX SCH (21:04)
[2021-01-28] MEDS: ATORVASTATIN 20 MG TAB PO SCH (21:15)
[2021-01-29] MEDS: LEVOTHYROXINE 88MCG TABLET (0.088 MG) PO SCH (05:51)
[2021-01-29 06:00] VITALS: BP 186/87
[2021-01-29] MEDS: HumaLOG INSULIN (NovoLOG) PER UNIT SC SCH ×2 (07:30→11:58)
[2021-01-29 08:22] LABS: HEMATOCRIT 32.1 % (42.0-52.0); HEMOGLOBIN 10.5 g/dl (13.5-17.5); MEAN CORPUSCULAR HEMOGLOBIN 30.5 pg (27.0-33.0); MEAN CORPUSCULAR HGB CONC 32.7 g/dl (32.0-36.5); MEAN CORPUSCULAR VOLUME 93.3 fl (80.0-96.0); PLATELET COUNT, AUTOMATED 149 10^3/uL (150-450); RED BLOOD COUNT 3.44 10^6/uL (4.30-6.10); WHITE BLOOD COUNT 3.7 10^3/uL (4.0-10.0)
[2021-01-29 08:31] VITALS: BP 139/71
[2021-01-29 08:46] LABS: CALCIUM LEVEL 9.3 MG/DL (8.8-10.2); CREATININE FOR GFR 4.37 MG/DL (0.70-1.30); GLOMERULAR FILTRATION RATE 14.1 (>42)
[2021-01-29] MEDS: MIRALAX *UNIT DOSE* 17GM PACKET PO SCH (08:59)
[2021-01-29] MEDS: METAMUCIL (PSYLLIUM) PACKET PO SCH (08:59)
[2021-01-29] MEDS: cloNIDine HCL 0.1 MG/24 HR PATCH TD SCH (09:00)
[2021-01-29] MEDS: MECLIZINE 25 MG TABLET PO SCH (09:00)
[2021-01-29] MEDS: PANTOPRAZOLE 40MG TAB (PROTONIX) PO SCH (09:00)
[2021-01-29 09:01] VITALS: BP 139/71
[2021-01-29] MEDS: allopurinoL 100 MG TAB PO SCH (09:01)
[2021-01-29] MEDS: VALSARTAN 80 MG TAB (DIOVAN) PO SCH (09:01)
[2021-01-29] MEDS: TAMSULOSIN 0.4 MG CAP PO SCH (09:01)
[2021-01-29] MEDS: TORSEMIDE (DEMADEX) 50 MG PER 1/2 TAB PO SCH (09:01)
[2021-01-29] MEDS: APIXABAN 2.5 MG TAB (ELIQUIS) PO SCH (09:01)
--- NOTE | 2021-01-29 09:25 | DS.PDOC ---
Discharge Summary General Date of Admission Jan 22, 2021 at 01:07 Date of Discharge 01/30/21 Discharge Summary DISCHARGE DIAGNOSES: Peripheral Vertigo Atypical chest pain. ESRD on hemodialysis on a Wednesday, , Wednesday Pancytopenia. Type 2 diabetes mellitus. Paroxysmal atrial fibrillation. Hypertension Heart failure with ejection fraction 45 to 50%. Hypothyroidism. Coronary artery disease status post CABG. Gout. GERD. BPH. Bradycardia due to clonidine DISCHARGE MEDICATIONS: DISCHARGE INSTRUCTIONS: PCP AND NEPHROLOGY FU APPT 1 [facility]SE: 75-year-old male presented to hospital with new onset dizziness after hemodialysis was initially found to be bradycardic who continues to have dizziness despite bradycardia resolved at this time. Peripheral Vertigo Worked with physical therapy and Occupational Therapy Lives alone and feels uncomfortable being discharged On meclizine twice daily Atypical chest pain. Negative cardiac work-up with unremarkable EKG and troponin PPI ESRD on hemodialysis. Nephrology consulted for dialysis needs continue on a Wednesday, , Wednesday schedule. Pancytopenia. No acute indication for RBC or platelet transfusions Type 2 diabetes mellitus. Sliding scale insulin with consistent carbohydrate diet. Paroxysmal atrial fibrillation. Currently rate controlled. Continue with Eliquis for anticoagulation. Hypertension. Regimen has been managed by nephrology. On valsartan on torsemide No signs of orthostasis Heart failure with ejection fraction 45 to 50%. BNP was elevated when admitted. Patient appears euvolemic. Dialysis will continue for fluid management. Patient does not appear to be in acute exacerbation today. Hypothyroidism. Synthroid Coronary artery disease status post CABG. Continue home medications. Gout. Continue home medications. GERD. Continue home medications. BPH. Continue home medications. Bradycardia. Clonidine has decreased from 0.2 to 0.1 mg patch and this appears with help of bradycardia. DVT Prophylaxis: Eliquis Disposition: Changed to [facility] status. on 01/27/21 while awaiting pt/ot. DISCHARGE Physical exam: Vitals: See below General: No distress HEENT: Normocephalic, atraumatic, moist mucous membranes. Neck: No lymphadenopathy or thyromegaly no carotid bruit Cardiac: Regular rate and rhythm, no murmurs, normal S1, normal S2 no S3 Pulm: Clear to auscultation bilaterally. No wheezes, rhonchi, rales air entry is equal bilaterally Abd: Nondistended, nontender to palpation, normal bowel sounds Ext: No edema bilateral lower extremities Labs: See below Imaging: No new imaging echo performed TIME SPENT ON DISCHARGE: 30 MINUTES Vital Signs/I&Os Vital Signs Date Time Temp Pulse Resp B/P (MAP) Pulse Ox O2 Delivery O2 Flow Rate FiO2 01/28/21 13:14 136/72 (93) 01/28/21 06:00 72 17 99 Room Air 01/28/21 06:00 97.4 I&O- Last 24 Hours up to 6 AM 01/28/21 06:00 Intake Total 990 ml Output Total 300 ml Balance 690 ml Laboratory Data Labs 24H Laboratory Tests 2 01/27/21 16:54: Bedside Glucose (Misc Panel) 207H 01/27/21 20:36: Bedside Glucose (Misc Panel) 167H 01/28/21 06:16: Nucleated Red Blood Cells % (auto) 0.0, Anion Gap 10, Glomerular Filtration Rate 9.9L, Calcium Level 10.0 01/28/21 14:07: Bedside Glucose (Misc Panel) 130H 01/28/21 14:21: Bedside Glucose (Misc Panel) 147H CBC/BMP Laboratory Tests 01/28/21 06:16 FSBS Laboratory Tests Test 01/27/21 16:54 01/27/21 20:36 01/28/21 14:07 01/28/21 14:21 Range/Units Bedside Glucose (Misc Panel) 207 167 130 147 83-110 MG/DL Discharge Medications Scheduled Allopurinol (Allopurinol) 100 Mg Tablet, 100 MG PO DAILY, (Reported) Apixaban (Eliquis) 2.5 Mg Tablet, 2.5 MG PO BID, (Reported) Atorvastatin Calcium (Atorvastatin Calcium) 40 Mg Tab, 40 MG PO QHS, (Reported) Clonidine (Clonidine) 0.1 Mg Patch.tdwk, 1 EA TD We@0900 Levothyroxine Sodium (Levothyroxine Sodium) 88 Mcg Tablet, 88 MCG PO DAILY, (Reported) Meclizine HCl (Meclizine HCl) 25 Mg Tablet, 25 MG PO BID Multivitamins (Thera M Plus Tablet) 1 Tab Tab, 1 TAB PO QHS, (Reported) Pantoprazole Sodium (Pantoprazole Sodium) 40 Mg Tablet.dr, 40 MG PO DAILY, (Reported) Sevelamer Carbonate (Renvela Oral Suspension) 0.8 Gm Powd.pack, 0.8 GM PO WM, (Reported) Tamsulosin Hcl (Tamsulosin HCl) 0.4 Mg Capsule, 0.4 MG PO DAILY, (Reported) Torsemide (Torsemide) 100 Mg Tablet, 50 MG PO BID, (Reported) 0900, 1700 Valsartan (Valsartan) 80 Mg Tablet, 80 MG PO BID, (Reported) Scheduled PRN Clotrimazole/Betamethasone Dip (Clotrimazole-Betamethasone Crm) 15 Gm Cream..g., 1 DOSE TOP BID PRN for RASH, (Reported) APPLY TO GROIN Docusate Sodium (Docusate Sodium) 100 Mg Capsule, 100 MG PO DAILY PRN for BOWEL CARE/CONSTIPATION, (Reported) Famotidine (Famotidine) 20 Mg Tablet, 20 MG PO DAILY PRN for HEARTBURN, (Reported) Lidocaine (Lidoderm) 5 % Dis, 2 PATCH TD DAILY PRN for BACK PAIN, (Reported) Mag Hydrox/Aluminum Hyd/Simeth (Maalox Maximum Strength Susp) 355 Ml Oral.susp, 10 ML PO QID PRN for HEARTBURN/INDIGESTION, (Reported) Meclizine HCl (Meclizine HCl) 25 Mg Tablet, 25 MG PO BID PRN for DIZZINESS, (Reported) Nitroglycerin (Nitrostat) 0.4 Mg Tab.subl, 0.4 MG SL NITRO PRN for CHEST PAIN, (Reported) Allergies Coded Allergies: Penicillins (Verified Allergy, Mild, rash/itching, 06/17/20) Tetracyclines (Verified Allergy, Mild, ITCHING, 06/17/20) Sulfa (Sulfonamide Antibiotics) (Unverified Allergy, Unknown, unknown, 06/17/20) erythromycin base (Unverified Allergy, Unknown, unknown, 06/17/20) minoxidil (Verified Adverse Reaction, Intermediate, ANASARCA, 06/17/20) Contrast Media (Verified Adverse Reaction, Mild, MADE LEG TURN RED, 06/17/20) amlodipine (Verified Adverse Reaction, Mild, FLUID RETENTION, 06/17/20) carvedilol (Verified Adverse Reaction, Mild, FLUID RETENTION, 06/17/20) hydralazine (Verified Adverse Reaction, Mild, FLUID RETENTION, 06/17/20) cephalexin (Unverified Adverse Reaction, Unknown, FLUID RETENTION, 06/17/20) ABEBA RUBIO MD Jan 28, 2021 14:40
[2021-01-29] MEDS: LIDOCAINE 5% (LIDODERM) PATCH TD PRN (10:29)
[2021-01-29] MEDS: ACETAMINOPHEN TAB 650MG DOSE (2X325MG) PO PRN (10:32)
== END 2021-01-29 12:38 | disposition home health service (06) | DRG 149 ==
LOC: M ED 18:39 → M ED INP 01-22 01:07 → ENRESERV 01-22 14:11 → M PCU 01-22 15:53 → M MSPAV 01-26 11:00
PROVIDERS: ADMIT Family Medicine; ATTEND General Practice
PROC: 5A1D70Z Performance of Urinary Filtration, Intermittent, Less than 6 Hours Per Day (ICD-10-PCS; principal; 2021-01-23)
DX: H81.399 Other peripheral vertigo, unspecified ear (principal); N18.6 End stage renal disease; D61.818 Other pancytopenia; I13.2 Hypertensive heart and chronic kidney disease with heart failure and with stage 5 chronic kidney disease, or end stage renal disease; I50.22 Chronic systolic (congestive) heart failure; R00.1 Bradycardia, unspecified; R07.89 Other chest pain; Z99.2 Dependence on renal dialysis; E11.22 Type 2 diabetes mellitus with diabetic chronic kidney disease; I48.0 Paroxysmal atrial fibrillation; E03.9 Hypothyroidism, unspecified; D63.1 Anemia in chronic kidney disease; I25.10 Atherosclerotic heart disease of native coronary artery without angina pectoris; Z95.5 Presence of coronary angioplasty implant and graft; M10.9 Gout, unspecified; K21.9 Gastro-esophageal reflux disease without esophagitis; N40.0 Benign prostatic hyperplasia without lower urinary tract symptoms; Z20.822 Contact with and (suspected) exposure to COVID-19; Z79.01 Long term (current) use of anticoagulants; Z79.899 Other long term (current) drug therapy; Z88.0 Allergy status to penicillin; Z88.1 Allergy status to other antibiotic agents; Z88.2 Allergy status to sulfonamides; Z88.8 Allergy status to other drugs, medicaments and biological substances; Z91.041 Radiographic dye allergy status; Z98.41 Cataract extraction status, right eye; Z98.42 Cataract extraction status, left eye; Z90.49 Acquired absence of other specified parts of digestive tract; Z90.5 Acquired absence of kidney

== ENCOUNTER 2021-07-24 18:05 | Inpatient (IN) | payer MEDICARE ==
[~2021-07-24] VITALS: Ht 185.4 cm; Wt 76.6 kg
[~2021-07-24 18:05] MED LIST changes: +AZIT-12 PO; +CLON0.1D3 TD; +CLOT1CRE71 TOP; -MONT10TA10 PO; +MONT10TA97 PO; +POTA-149 PO; +POTA-151 PO; -POTA10TA16 PO; -POTA20TA6 PO
[2021-07-24] MEDS ORDERED: MORPHINE 4 MG/ML 1ML VIAL/SYRINGE IV ONE (21:00)
[2021-07-24 21:20] LABS: BASO # 0.1 10^3/uL (0.0-0.2); BASO % 0.8 % (0.0-1.0); EOS # 0.1 10^3/uL (0.0-0.5); EOS % 2.3 % (0.0-3.0); HEMATOCRIT 36.5 % (42.0-52.0); HEMOGLOBIN 11.9 g/dl (13.5-17.5); LYMPH # 0.9 10^3/uL (1.5-5.0); LYMPH % 14.9 % (24.0-44.0); MEAN CORPUSCULAR HEMOGLOBIN 30.9 pg (27.0-33.0); MEAN CORPUSCULAR HGB CONC 32.6 g/dl (32.0-36.5); MEAN CORPUSCULAR VOLUME 94.8 fl (80.0-96.0); MONO # 0.6 10^3/uL (0.0-0.8); MONO % 9.9 % (2.0-8.0); NEUTROPHILS # 4.3 10^3/uL (1.5-8.5); NEUTROPHILS % 71.8 % (36.0-66.0); PLATELET COUNT, AUTOMATED 150 10^3/uL (150-450); RED BLOOD COUNT 3.85 10^6/uL (4.30-6.10)
[2021-07-24 21:48] LABS: CALCIUM LEVEL 9.9 MG/DL (8.8-10.2); CREATININE FOR GFR 6.09 MG/DL (0.70-1.30); GLOMERULAR FILTRATION RATE 9.6 (>42); POTASSIUM SERUM 4.4 MEQ/L (3.5-5.1)
[2021-07-24] MEDS ORDERED: oxyCODONE 5MG TAB PO ONE (21:50)
[2021-07-24 22:42] LABS: RSV AMPLIFICATION NEGATIVE (NEGATIVE)
[2021-07-24 23:25] LABS: APPEARANCE, URINE CLEAR (CLEAR); BACTERIA, URINE AUTO NEGATIVE (NEGATIVE); BILIRUBIN, URINE AUTO NEGATIVE (NEGATIVE); BLOOD, URINE BLOOD 2+ (NEGATIVE); COLOR, URINE YELLOW (YELLOW); GLUCOSE, URINE (UA) AUTO NEGATIVE (NEGATIVE); KETONE, URINE AUTO NEGATIVE (NEGATIVE); LEUKOCYTE ESTERASE, URINE AUTO NEGATIVE (NEGATIVE); NITRITE, URINE AUTO NEGATIVE (NEGATIVE); PROTEIN, URINE AUTO 2+ mg/dL (NEGATIVE); RBC, URINE AUTO 10 /HPF (0-3); SPECIFIC GRAVITY URINE AUTO 1.011 (1.002-1.035); SQUAMOUS EPITHELIAL CELL UR AU 0 /HPF (0-6); UROBILINOGEN, URINE AUTO 0.2 mg/dL (0.0-2.0); WBC, URINE AUTO 7 /HPF (0-3)
[2021-07-25] MEDS ORDERED: traMADol 50 MG TAB PO PRN (01:35)
[2021-07-25] MEDS ORDERED: ACETAMINOPHEN TAB 650MG DOSE (2X325MG) PO PRN (01:35)
[2021-07-25] MEDS ORDERED: PERCOCET 5MG/325MG TAB PO PRN (01:35)
[2021-07-25] MEDS ORDERED: methylPREDNISolone 40MG 1ML VIAL IV ONE (01:35)
[2021-07-25] MEDS ORDERED: MAG-LIQ PO (03:01)
[2021-07-25] MEDS ORDERED: LACT20EL PO (03:01)
[2021-07-25] MEDS ORDERED: ATEN25TA PO (03:01)
[2021-07-25] MEDS ORDERED: HOME MED LIST COMPLETE! XX SCH (03:05)
[2021-07-25 06:04] VITALS: BP 176/70
[2021-07-25 07:28] LABS: ALBUMIN 3.4 GM/DL (3.2-5.2); BILIRUBIN,TOTAL 0.4 MG/DL (0.2-1.0); CALCIUM LEVEL 9.3 MG/DL (8.8-10.2); CREATININE FOR GFR 6.38 MG/DL (0.70-1.30); GLOMERULAR FILTRATION RATE 9.1 (>42); POTASSIUM SERUM 4.3 MEQ/L (3.5-5.1); TOTAL PROTEIN 6.3 GM/DL (6.4-8.2)
[2021-07-25] MEDS ORDERED: SODIUM CHLORIDE 0.9% 1000ML IV PRN (08:30)
[2021-07-25] MEDS ORDERED: LIDOCAINE 1% SDV 5ML VIAL SC PRN (08:30)
[2021-07-25] MEDS ORDERED: PERCOCET 5MG/325MG TAB PO SCH ×2 (09:00→12:48)
[2021-07-25] MEDS ORDERED: METOPROLOL SUCC (TopROL XL) 50MG **XL** TAB PO SCH (09:00)
[2021-07-25] MEDS ORDERED: MORPHINE 4 MG/ML 1ML VIAL/SYRINGE IV ONE (10:30)
[2021-07-25] MEDS ORDERED: NORCO, ANEXSIA 5/325MG TABLET (HYDROcodone/ACETAMINOPHEN) PO ONE (11:00)
[2021-07-25] MEDS ORDERED: LACTULOSE 20 GM/30 ML SYRUP UD PO PRN (11:05)
[2021-07-25] MEDS ORDERED: NITROGLYCERIN 0.4 MG SUBL TABLET SL PRN (11:05)
[2021-07-25] MEDS ORDERED: atenoloL 25 MG TAB PO SCH (11:05)
[2021-07-25] MEDS ORDERED: DOCUSATE SODIUM 100MG CAPSULE PO PRN (11:05)
[2021-07-25] MEDS: (RENVELA) SEVELAMER **CARBONate** 800 MG TAB PO SCH ×2 (11:14→17:05)
[2021-07-25] MEDS: TAMSULOSIN 0.4 MG CAP PO SCH (11:46)
[2021-07-25] MEDS: MECLIZINE 25 MG TABLET PO SCH ×2 (11:46→21:24)
[2021-07-25] MEDS: PANTOPRAZOLE 40MG TAB (PROTONIX) PO SCH (11:47)
[2021-07-25] MEDS: MULTIVITAMINS/MINERALS THERAP 1 TAB PO SCH (11:47)
[2021-07-25] MEDS: LEVOTHYROXINE 88MCG TABLET (0.088 MG) PO SCH (11:47)
[2021-07-25] MEDS: APIXABAN 2.5 MG TAB (ELIQUIS) PO SCH ×2 (11:48→21:24)
[2021-07-25] MEDS: DICLOFENAC EPOLAMINE 1.3 % PATCH TOP SCH ×2 (11:49→21:25)
[2021-07-25] MEDS: LIDOCAINE 5% (LIDODERM) PATCH TD SCH (11:49)
[2021-07-25] MEDS: allopurinoL 100 MG TAB PO SCH (11:53)
[2021-07-25] MEDS ORDERED: TORSEMIDE (DEMADEX) 50 MG PER 1/2 TAB PO SCH (17:00)
[2021-07-25] MEDS ORDERED: atenoloL 25 MG TAB PO ONE (18:30)
[2021-07-25] MEDS ORDERED: PERCOCET 5MG/325MG TAB PO ONE (18:30)
[2021-07-25] MEDS: ATORVASTATIN 20 MG TAB PO SCH (21:24)
[2021-07-25] MEDS: **NOTE PATIENT COMMENT** MISC XX SCH (21:25)
[2021-07-25] MEDS: ACETAMINOPHEN 500 MG TAB PO SCH (21:29)
[2021-07-25] MEDS: traMADol 50 MG TAB PO SCH (21:30)
[2021-07-25 23:30] VITALS: BP 114/53
[2021-07-26] MEDS: traMADol 50 MG TAB PO SCH ×3 (01:34→08:03)
[2021-07-26 04:28] VITALS: BP 105/63
[2021-07-26] MEDS: MULTIVITAMINS/MINERALS THERAP 1 TAB PO SCH (05:51)
[2021-07-26] MEDS: FAMOTIDINE 20 MG TAB PO PRN (05:51)
[2021-07-26] MEDS: allopurinoL 100 MG TAB PO SCH (05:52)
[2021-07-26] MEDS: MECLIZINE 25 MG TABLET PO SCH ×2 (05:52→20:30)
[2021-07-26] MEDS: PANTOPRAZOLE 40MG TAB (PROTONIX) PO SCH (05:52)
[2021-07-26] MEDS: TAMSULOSIN 0.4 MG CAP PO SCH (05:52)
[2021-07-26] MEDS: LEVOTHYROXINE 88MCG TABLET (0.088 MG) PO SCH (05:53)
[2021-07-26] MEDS: atenoloL 25 MG TAB PO SCH (05:53)
[2021-07-26] MEDS: APIXABAN 2.5 MG TAB (ELIQUIS) PO SCH ×2 (05:53→20:30)
[2021-07-26] MEDS: (RENVELA) SEVELAMER **CARBONate** 800 MG TAB PO SCH ×3 (05:54→17:28)
[2021-07-26] MEDS ORDERED: SODIUM CHLORIDE 0.9% 1000ML IV PRN (06:00)
[2021-07-26] MEDS: LIDOCAINE 5% (LIDODERM) PATCH TD SCH (07:28)
[2021-07-26] MEDS: DICLOFENAC EPOLAMINE 1.3 % PATCH TOP SCH ×2 (07:28→20:30)
[2021-07-26] MEDS: ACETAMINOPHEN 500 MG TAB PO SCH ×3 (08:03→22:14)
[2021-07-26] MEDS: TORSEMIDE (DEMADEX) 50 MG PER 1/2 TAB PO SCH ×2 (08:03→17:28)
[2021-07-26] MEDS ORDERED: NALOXONE INJ 0.4MG/1ML VIAL (J2310 PER 1MG) IV PRN (08:05)
[2021-07-26] MEDS ORDERED: traMADol 50 MG TAB PO ONE (09:00)
[2021-07-26] MEDS ORDERED: KETOROLAC 30 MG/ML 1ML VIAL IV ONE ×2 (11:05→13:35)
[2021-07-26] MEDS: oxyCODONE 5MG TAB PO SCH ×3 (13:34→17:27)
[2021-07-26] MEDS ORDERED: oxyCODONE 5MG TAB PO ONE (13:35)
[2021-07-26 14:00] VITALS: BP 106/76
[2021-07-26] MEDS: KETOROLAC TROMETHAMINE 10 MG TAB PO SCH ×3 (14:47→20:31)
[2021-07-26] MEDS: ATORVASTATIN 20 MG TAB PO SCH (20:30)
[2021-07-26] MEDS: **NOTE PATIENT COMMENT** MISC XX SCH (20:32)
[2021-07-26 20:59] VITALS: BP 110/48
[2021-07-27] MEDS: oxyCODONE 5MG TAB PO SCH ×2 (04:44)
[2021-07-27 05:40] VITALS: BP 133/73
[2021-07-27] MEDS: LEVOTHYROXINE 88MCG TABLET (0.088 MG) PO SCH (06:10)
[2021-07-27] MEDS: ONDANSETRON 4MG ORAL DISINTEGRATING TAB PO PRN (06:10)
[2021-07-27 06:29] VITALS: BP 120/59
[2021-07-27] MEDS: (RENVELA) SEVELAMER **CARBONate** 800 MG TAB PO SCH ×3 (07:10→17:13)
[2021-07-27] MEDS ORDERED: BISACODYL 5 MG TAB PO PRN (07:40)
[2021-07-27] MEDS ORDERED: SENOKOT S TAB PO PRN (07:40)
[2021-07-27] MEDS ORDERED: FLEET OIL RETENTION ENEMA PR PRN (07:40)
[2021-07-27] MEDS ORDERED: oxyCODONE 5MG TAB PO SCH (08:00)
[2021-07-27] MEDS: PANTOPRAZOLE 40MG TAB (PROTONIX) PO SCH (08:27)
[2021-07-27] MEDS: allopurinoL 100 MG TAB PO SCH (08:30)
[2021-07-27] MEDS: KETOROLAC TROMETHAMINE 10 MG TAB PO SCH ×4 (08:30→20:20)
[2021-07-27] MEDS: MECLIZINE 25 MG TABLET PO SCH ×2 (08:30→20:19)
[2021-07-27] MEDS: ACETAMINOPHEN 500 MG TAB PO SCH ×3 (08:30→21:09)
[2021-07-27] MEDS: TORSEMIDE (DEMADEX) 50 MG PER 1/2 TAB PO SCH ×2 (08:30→17:12)
[2021-07-27] MEDS: TAMSULOSIN 0.4 MG CAP PO SCH (08:30)
[2021-07-27] MEDS: APIXABAN 2.5 MG TAB (ELIQUIS) PO SCH ×2 (08:30→20:16)
[2021-07-27] MEDS: atenoloL 25 MG TAB PO SCH (08:33)
[2021-07-27] MEDS: DICLOFENAC EPOLAMINE 1.3 % PATCH TOP SCH ×2 (08:35→20:12)
[2021-07-27] MEDS: LIDOCAINE 5% (LIDODERM) PATCH TD SCH (08:35)
[2021-07-27] MEDS: oxyCODONE 10 MG CR TAB PO SCH ×2 (08:35→20:16)
[2021-07-27] MEDS: MIRALAX *UNIT DOSE* 17GM PACKET PO SCH ×2 (08:36→21:00)
[2021-07-27] MEDS: MULTIVITAMINS/MINERALS THERAP 1 TAB PO SCH (08:36)
[2021-07-27] MEDS ORDERED: oxyCODONE 5MG TAB PO PRN (11:00)
[2021-07-27 11:42] LABS: CALCIUM LEVEL 9.4 MG/DL (8.8-10.2); CREATININE FOR GFR 4.16 MG/DL (0.70-1.30); GLOMERULAR FILTRATION RATE 14.8 (>42); POTASSIUM SERUM 3.8 MEQ/L (3.5-5.1)
[2021-07-27 14:00] VITALS: BP 137/71
[2021-07-27] MEDS: ATORVASTATIN 20 MG TAB PO SCH (20:12)
[2021-07-27] MEDS: **NOTE PATIENT COMMENT** MISC XX SCH (20:27)
[2021-07-28] MEDS: LEVOTHYROXINE 88MCG TABLET (0.088 MG) PO SCH (05:34)
[2021-07-28 06:00] VITALS: BP 149/67
[2021-07-28] MEDS ORDERED: traMADol 50 MG TAB PO ONE (08:00)
[2021-07-28] MEDS: MULTIVITAMINS/MINERALS THERAP 1 TAB PO SCH (09:00)
[2021-07-28] MEDS: MIRALAX *UNIT DOSE* 17GM PACKET PO SCH (09:00)
[2021-07-28] MEDS: TAMSULOSIN 0.4 MG CAP PO SCH (09:02)
[2021-07-28] MEDS: (RENVELA) SEVELAMER **CARBONate** 800 MG TAB PO SCH ×3 (09:03→17:33)
[2021-07-28] MEDS: PANTOPRAZOLE 40MG TAB (PROTONIX) PO SCH (09:03)
[2021-07-28] MEDS: TORSEMIDE (DEMADEX) 50 MG PER 1/2 TAB PO SCH ×2 (09:03→15:54)
[2021-07-28] MEDS: KETOROLAC TROMETHAMINE 10 MG TAB PO SCH ×4 (09:04→20:40)
[2021-07-28] MEDS: MECLIZINE 25 MG TABLET PO SCH ×2 (09:04→20:37)
[2021-07-28] MEDS: ACETAMINOPHEN 500 MG TAB PO SCH ×3 (09:04→20:41)
[2021-07-28] MEDS: allopurinoL 100 MG TAB PO SCH (09:04)
[2021-07-28] MEDS: atenoloL 25 MG TAB PO SCH (09:04)
[2021-07-28] MEDS: APIXABAN 2.5 MG TAB (ELIQUIS) PO SCH ×2 (09:07→20:37)
[2021-07-28] MEDS: DICLOFENAC EPOLAMINE 1.3 % PATCH TOP SCH ×2 (09:08→20:41)
[2021-07-28] MEDS: LIDOCAINE 5% (LIDODERM) PATCH TD SCH (09:09)
[2021-07-28] MEDS: FAMOTIDINE 20 MG TAB PO PRN (15:54)
[2021-07-28] MEDS: ATORVASTATIN 20 MG TAB PO SCH (20:39)
[2021-07-28] MEDS: **NOTE PATIENT COMMENT** MISC XX SCH (21:00)
[2021-07-28 22:00] VITALS: BP 126/59
[2021-07-29 06:00] VITALS: BP 151/69
[2021-07-29] MEDS ORDERED: SODIUM CHLORIDE 0.9% 1000ML IV PRN (06:00)
[2021-07-29] MEDS: LEVOTHYROXINE 88MCG TABLET (0.088 MG) PO SCH (06:13)
[2021-07-29] MEDS: TORSEMIDE (DEMADEX) 50 MG PER 1/2 TAB PO SCH ×2 (06:14→16:13)
[2021-07-29] MEDS: MULTIVITAMINS/MINERALS THERAP 1 TAB PO SCH (06:15)
[2021-07-29] MEDS: (RENVELA) SEVELAMER **CARBONate** 800 MG TAB PO SCH ×3 (06:15→18:06)
[2021-07-29] MEDS: APIXABAN 2.5 MG TAB (ELIQUIS) PO SCH ×2 (06:15→23:06)
[2021-07-29] MEDS: TAMSULOSIN 0.4 MG CAP PO SCH (06:16)
[2021-07-29] MEDS: allopurinoL 100 MG TAB PO SCH (06:16)
[2021-07-29] MEDS: MECLIZINE 25 MG TABLET PO SCH ×2 (06:16→23:06)
[2021-07-29] MEDS: PANTOPRAZOLE 40MG TAB (PROTONIX) PO SCH (06:17)
[2021-07-29] MEDS: KETOROLAC TROMETHAMINE 10 MG TAB PO SCH ×4 (06:18→23:07)
[2021-07-29] MEDS: ACETAMINOPHEN 500 MG TAB PO SCH ×3 (06:19→23:07)
[2021-07-29] MEDS: atenoloL 25 MG TAB PO SCH (06:20)
[2021-07-29] MEDS: DICLOFENAC EPOLAMINE 1.3 % PATCH TOP SCH ×2 (07:41→23:08)
[2021-07-29] MEDS: LIDOCAINE 5% (LIDODERM) PATCH TD SCH (07:41)
[2021-07-29] MEDS: ONDANSETRON 4MG ORAL DISINTEGRATING TAB PO PRN ×2 (07:44→23:08)
[2021-07-29] MEDS: **NOTE PATIENT COMMENT** MISC XX SCH (22:51)
[2021-07-29] MEDS ORDERED: MAALOX 30 ML SUSP *UDC PO ONE (22:55)
[2021-07-29] MEDS ORDERED: SIMETHICONE 80MG CHEW TAB PO PRN (22:55)
[2021-07-29] MEDS: ATORVASTATIN 20 MG TAB PO SCH (23:06)
[2021-07-30 06:00] VITALS: BP 134/61
[2021-07-30] MEDS: LEVOTHYROXINE 88MCG TABLET (0.088 MG) PO SCH (06:07)
[2021-07-30 07:34] LABS: HEMOGLOBIN A1c 6.4 %
[2021-07-30] MEDS: APIXABAN 2.5 MG TAB (ELIQUIS) PO SCH ×2 (08:31→21:27)
[2021-07-30] MEDS: TAMSULOSIN 0.4 MG CAP PO SCH (08:31)
[2021-07-30] MEDS: MECLIZINE 25 MG TABLET PO SCH ×2 (08:32→21:27)
[2021-07-30] MEDS: allopurinoL 100 MG TAB PO SCH (08:32)
[2021-07-30] MEDS: PANTOPRAZOLE 40MG TAB (PROTONIX) PO SCH (08:32)
[2021-07-30] MEDS: MULTIVITAMINS/MINERALS THERAP 1 TAB PO SCH (08:32)
[2021-07-30] MEDS: (RENVELA) SEVELAMER **CARBONate** 800 MG TAB PO SCH ×3 (08:32→17:49)
[2021-07-30] MEDS: ACETAMINOPHEN 500 MG TAB PO SCH ×3 (08:33→21:27)
[2021-07-30] MEDS: LIDOCAINE 5% (LIDODERM) PATCH TD SCH (08:34)
[2021-07-30] MEDS: DICLOFENAC EPOLAMINE 1.3 % PATCH TOP SCH ×2 (08:35→21:27)
[2021-07-30] MEDS: KETOROLAC TROMETHAMINE 10 MG TAB PO SCH ×4 (08:35→21:28)
[2021-07-30] MEDS: atenoloL 25 MG TAB PO SCH (08:35)
[2021-07-30] MEDS: TORSEMIDE (DEMADEX) 50 MG PER 1/2 TAB PO SCH ×2 (12:30→16:34)
[2021-07-30 16:34] VITALS: BP 149/68
[2021-07-30] MEDS: ATORVASTATIN 20 MG TAB PO SCH (21:27)
[2021-07-30] MEDS: **NOTE PATIENT COMMENT** MISC XX SCH (21:27)
[2021-07-31 04:42] VITALS: BP 137/76
[2021-07-31] MEDS ORDERED: SODIUM CHLORIDE 0.9% 1000ML IV PRN (06:00)
[2021-07-31] MEDS: LEVOTHYROXINE 88MCG TABLET (0.088 MG) PO SCH (06:52)
[2021-07-31] MEDS: MECLIZINE 25 MG TABLET PO SCH ×2 (06:52→21:20)
[2021-07-31] MEDS: APIXABAN 2.5 MG TAB (ELIQUIS) PO SCH ×2 (06:53→21:20)
[2021-07-31] MEDS: atenoloL 25 MG TAB PO SCH (06:53)
[2021-07-31] MEDS: TAMSULOSIN 0.4 MG CAP PO SCH (06:53)
[2021-07-31] MEDS: PANTOPRAZOLE 40MG TAB (PROTONIX) PO SCH (06:53)
[2021-07-31] MEDS: MULTIVITAMINS/MINERALS THERAP 1 TAB PO SCH (06:53)
[2021-07-31] MEDS: TORSEMIDE (DEMADEX) 50 MG PER 1/2 TAB PO SCH ×2 (06:53→17:24)
[2021-07-31] MEDS: DICLOFENAC EPOLAMINE 1.3 % PATCH TOP SCH ×2 (06:54→21:20)
[2021-07-31] MEDS: allopurinoL 100 MG TAB PO SCH (06:54)
[2021-07-31] MEDS: ACETAMINOPHEN 500 MG TAB PO SCH ×3 (06:54→21:20)
[2021-07-31] MEDS: LIDOCAINE 5% (LIDODERM) PATCH TD SCH (06:55)
[2021-07-31] MEDS: (RENVELA) SEVELAMER **CARBONate** 800 MG TAB PO SCH ×3 (07:50→17:24)
[2021-07-31] MEDS: KETOROLAC TROMETHAMINE 10 MG TAB PO SCH (07:52)
[2021-07-31 08:54] LABS: HEMATOCRIT 28.4 % (42.0-52.0); HEMOGLOBIN 9.3 g/dl (13.5-17.5); MEAN CORPUSCULAR HEMOGLOBIN 31.2 pg (27.0-33.0); MEAN CORPUSCULAR HGB CONC 32.7 g/dl (32.0-36.5); MEAN CORPUSCULAR VOLUME 95.3 fl (80.0-96.0); PLATELET COUNT, AUTOMATED 124 10^3/uL (150-450); RED BLOOD COUNT 2.98 10^6/uL (4.30-6.10); WHITE BLOOD COUNT 4.2 10^3/uL (4.0-10.0)
[2021-07-31 09:09] LABS: ALBUMIN 2.8 GM/DL (3.2-5.2); CALCIUM LEVEL 9.5 MG/DL (8.8-10.2); CREATININE FOR GFR 6.43 MG/DL (0.70-1.30); PHOSPHORUS LEVEL 4.6 MG/DL (2.5-4.9)
[2021-07-31] MEDS ORDERED: DICL1PAT6 TOP (16:08)
[2021-07-31] MEDS: traMADol 50 MG TAB PO PRN (17:30)
[2021-07-31] MEDS ORDERED: BISACODYL 10 MG SUPP PR PRN (18:55)
[2021-07-31] MEDS ORDERED: CALCIUM CARBONATE 500 MG CHEW U/D PO PRN (19:55)
[2021-07-31] MEDS ORDERED: MAALOX 30 ML SUSP *UDC PO ONE (21:15)
[2021-07-31] MEDS: ATORVASTATIN 20 MG TAB PO SCH (21:19)
[2021-07-31] MEDS: DOCUSATE SODIUM 100MG CAPSULE PO SCH (21:19)
[2021-07-31] MEDS: **NOTE PATIENT COMMENT** MISC XX SCH (21:20)
[2021-08-01] MEDS: LEVOTHYROXINE 88MCG TABLET (0.088 MG) PO SCH (05:43)
[2021-08-01 06:00] VITALS: BP 166/73
[2021-08-01 06:34] LABS: BASO % 0.5 % (0.0-1.0); EOS # 0.2 10^3/uL (0.0-0.5); EOS % 4.3 % (0.0-3.0); HEMATOCRIT 29.2 % (42.0-52.0); HEMOGLOBIN 9.5 g/dl (13.5-17.5); LYMPH # 0.9 10^3/uL (1.5-5.0); LYMPH % 22.6 % (24.0-44.0); MEAN CORPUSCULAR HEMOGLOBIN 31.3 pg (27.0-33.0); MEAN CORPUSCULAR HGB CONC 32.5 g/dl (32.0-36.5); MEAN CORPUSCULAR VOLUME 96.1 fl (80.0-96.0); MONO # 0.7 10^3/uL (0.0-0.8); MONO % 17.3 % (2.0-8.0); NEUTROPHILS # 2.1 10^3/uL (1.5-8.5); NEUTROPHILS % 53.5 % (36.0-66.0); PLATELET COUNT, AUTOMATED 130 10^3/uL (150-450); RED BLOOD COUNT 3.04 10^6/uL (4.30-6.10)
[2021-08-01 06:59] LABS: CALCIUM LEVEL 9.2 MG/DL (8.8-10.2); CREATININE FOR GFR 4.42 MG/DL (0.70-1.30); GLOMERULAR FILTRATION RATE 13.8 (>42); MAGNESIUM LEVEL 1.8 MG/DL (1.8-2.4); PHOSPHORUS LEVEL 3.5 MG/DL (2.5-4.9)
[2021-08-01] MEDS ORDERED: ACET-683 PO (07:38)
[2021-08-01] MEDS ORDERED: TRAM50TA2 PO (07:38)
[2021-08-01] MEDS ORDERED: MAG-LIQ PO (08:25)
[2021-08-01] MEDS: DICLOFENAC EPOLAMINE 1.3 % PATCH TOP SCH (09:09)
[2021-08-01] MEDS: LIDOCAINE 5% (LIDODERM) PATCH TD SCH (09:11)
[2021-08-01] MEDS: PANTOPRAZOLE 40MG TAB (PROTONIX) PO SCH (09:11)
[2021-08-01] MEDS: DOCUSATE SODIUM 100MG CAPSULE PO SCH (09:11)
[2021-08-01 09:12] VITALS: BP 159/77
[2021-08-01] MEDS: (RENVELA) SEVELAMER **CARBONate** 800 MG TAB PO SCH ×2 (09:12→12:03)
[2021-08-01] MEDS: allopurinoL 100 MG TAB PO SCH (09:12)
[2021-08-01] MEDS: MULTIVITAMINS/MINERALS THERAP 1 TAB PO SCH (09:12)
[2021-08-01] MEDS: APIXABAN 2.5 MG TAB (ELIQUIS) PO SCH (09:12)
[2021-08-01] MEDS: MECLIZINE 25 MG TABLET PO SCH (09:12)
[2021-08-01] MEDS: atenoloL 25 MG TAB PO SCH (09:12)
[2021-08-01] MEDS: TORSEMIDE (DEMADEX) 50 MG PER 1/2 TAB PO SCH (09:12)
[2021-08-01] MEDS: TAMSULOSIN 0.4 MG CAP PO SCH (09:13)
[2021-08-01] MEDS: ACETAMINOPHEN 500 MG TAB PO SCH (09:14)
[2021-08-01] MEDS: traMADol 50 MG TAB PO PRN (10:34)
[2021-08-01] MEDS ORDERED: DICL1GEL3 TOP (11:56)
== END 2021-08-01 13:54 | disposition home health service (06) | DRG 553 ==
LOC: M ED 18:05 → M ED INP 18:06 → ENRESERV 07-25 01:57 → M MSPAV 07-25 02:50 → OBSVTOIN 07-26 11:00
PROVIDERS: ADMIT Internal Medicine; ATTEND Internal Medicine
PROC: 5A1D70Z Performance of Urinary Filtration, Intermittent, Less than 6 Hours Per Day (ICD-10-PCS; principal; 2021-07-25)
DX: M16.12 Unilateral primary osteoarthritis, left hip (principal); N18.6 End stage renal disease; I13.2 Hypertensive heart and chronic kidney disease with heart failure and with stage 5 chronic kidney disease, or end stage renal disease; I50.22 Chronic systolic (congestive) heart failure; I48.20 Chronic atrial fibrillation, unspecified; I25.5 Ischemic cardiomyopathy; M10.9 Gout, unspecified; Z99.2 Dependence on renal dialysis; Z85.528 Personal history of other malignant neoplasm of kidney; E03.9 Hypothyroidism, unspecified; Z79.01 Long term (current) use of anticoagulants; Z95.5 Presence of coronary angioplasty implant and graft; Z95.0 Presence of cardiac pacemaker; Z79.899 Other long term (current) drug therapy; Z20.822 Contact with and (suspected) exposure to COVID-19; Z88.0 Allergy status to penicillin; Z88.1 Allergy status to other antibiotic agents; Z88.2 Allergy status to sulfonamides; Z91.041 Radiographic dye allergy status; Z88.8 Allergy status to other drugs, medicaments and biological substances; I25.10 Atherosclerotic heart disease of native coronary artery without angina pectoris; K59.03 Drug induced constipation; T40.605A Adverse effect of unspecified narcotics, initial encounter; D64.9 Anemia, unspecified

== ENCOUNTER 2021-09-09 20:54 | Emergency (ER) | payer MEDICARE ==
[~2021-09-09] VITALS: Ht 185.4 cm; Wt 77.3 kg
[~2021-09-09 20:54] MED LIST changes: +ACET-683 PO; +ATEN25TA PO; +DICL1GEL3 TOP; +DICL1PAT6 TOP; +MAG-LIQ PO
[2021-09-09 21:17] VITALS: BP 170/80
[2021-09-10] MEDS ORDERED: traMADol 50 MG TAB PO ONE (01:45)
[2021-09-10 02:02] LABS: HEMATOCRIT 31.1 % (42.0-52.0); MEAN CORPUSCULAR HEMOGLOBIN 31.7 pg (27.0-33.0); MEAN CORPUSCULAR HGB CONC 32.2 g/dl (32.0-36.5); MEAN CORPUSCULAR VOLUME 98.7 fl (80.0-96.0); PLATELET COUNT, AUTOMATED 142 10^3/uL (150-450); RED BLOOD COUNT 3.15 10^6/uL (4.30-6.10); WHITE BLOOD COUNT 6.4 10^3/uL (4.0-10.0)
[2021-09-10] MEDS ORDERED: ONDANSETRON 4MG TAB PO ONE (02:05)
[2021-09-10 02:33] LABS: ALBUMIN 3.6 GM/DL (3.2-5.2); ALT/SGPT 14 U/L (12-78); BILIRUBIN,DIRECT < 0.1 MG/DL (0.0-0.2); BILIRUBIN,TOTAL 0.3 MG/DL (0.2-1.0); BLOOD UREA NITROGEN 103 MG/DL (7-18); CALCIUM LEVEL 8.8 MG/DL (8.8-10.2); CARBON DIOXIDE LEVEL 22 MEQ/L (21-32); CHLORIDE LEVEL 105 MEQ/L (98-107); CREATININE FOR GFR 7.19 MG/DL (0.70-1.30); GLOMERULAR FILTRATION RATE 7.9 (>42); GLUCOSE, FASTING 157 MG/DL (70-100); LIPASE 307 U/L (73-393); POTASSIUM SERUM 4.7 MEQ/L (3.5-5.1); SODIUM LEVEL 140 MEQ/L (136-145)
[2021-09-10] MEDS ORDERED: GABAPENTIN 300 MG CAP PO ONE (03:50)
[2021-09-10] MEDS ORDERED: NEUR300C PO (03:56)
[2021-09-10] MEDS ORDERED: ULTR50TA8 PO (03:56)
== END 2021-09-10 04:37 | disposition home or self-care (01) ==
LOC: EDBD 20:54 → M ED 20:54
DX: G89.29 Other chronic pain (principal); M25.552 Pain in left hip; M54.50 Low back pain, unspecified; I10 Essential (primary) hypertension; I50.9 Heart failure, unspecified; J44.9 Chronic obstructive pulmonary disease, unspecified; N28.9 Disorder of kidney and ureter, unspecified; I25.2 Old myocardial infarction; E03.9 Hypothyroidism, unspecified; E78.5 Hyperlipidemia, unspecified; G62.9 Polyneuropathy, unspecified; M10.9 Gout, unspecified; M48.00 Spinal stenosis, site unspecified; Z86.73 Personal history of transient ischemic attack (TIA), and cerebral infarction without residual deficits; Z87.09 Personal history of other diseases of the respiratory system; Z87.19 Personal history of other diseases of the digestive system; Z95.0 Presence of cardiac pacemaker; Z95.1 Presence of aortocoronary bypass graft; Z95.5 Presence of coronary angioplasty implant and graft; Z79.899 Other long term (current) drug therapy; Z79.890 Hormone replacement therapy; Z79.01 Long term (current) use of anticoagulants; Z88.0 Allergy status to penicillin; Z88.1 Allergy status to other antibiotic agents; Z88.2 Allergy status to sulfonamides; Z88.8 Allergy status to other drugs, medicaments and biological substances; Z91.041 Radiographic dye allergy status

== ENCOUNTER → 2021-09-22 | Outpatient (CLI) | payer MEDICARE ==
[~2021-09-22] MED LIST changes: +BUPIVACAINE HCL 0.5% 30ML VIAL As Ordered ONE; +ISOVUE-300 61% 50ML VIAL As Ordered ONE; +LIDOCAINE 1% MDV 20ML VIAL As Ordered ONE; +NEUR300C PO; +methylPREDNISolone 80MG/ML SUSP 1ML VIAL (J1040) As Ordered ONE
== END ==
LOC: M RADPRO 13:19
PROVIDERS: ATTEND Orthopaedic Surgery Adult Reconstructive Orthopaedic Surgery
DX: M16.0 Bilateral primary osteoarthritis of hip (principal)
CPT/HCPCS: 20610; 76000; J1040; Q9967

== ENCOUNTER → 2021-11-19 | Outpatient (CLI) | payer MEDICARE ==
[~2021-11-19] MED LIST changes: -BUPIVACAINE HCL 0.5% 30ML VIAL As Ordered ONE; -ISOVUE-300 61% 50ML VIAL As Ordered ONE; -LIDOCAINE 1% MDV 20ML VIAL As Ordered ONE; -methylPREDNISolone 80MG/ML SUSP 1ML VIAL (J1040) As Ordered ONE
== END ==
LOC: M SOG 08:51
PROVIDERS: ATTEND Orthopaedic Surgery Adult Reconstructive Orthopaedic Surgery
DX: M17.0 Bilateral primary osteoarthritis of knee (principal)

== ENCOUNTER 2022-02-25 22:30 | Inpatient (IN) | payer MEDICARE ==
[~2022-02-25] VITALS: Ht 185.4 cm; Wt 79.1 kg
[~2022-02-25 22:30] MED LIST changes: +CLOP75TA99 PO; -ISOS20TA PO; +ISOS20TA53 PO; -PLAV1TAB2 PO
[2022-02-25 23:16] LABS: BASO % 0.7 % (0.0-1.0); EOS # 0.1 10^3/uL (0.0-0.5); EOS % 1.8 % (0.0-3.0); HEMATOCRIT 32.6 % (42.0-52.0); HEMOGLOBIN 10.6 g/dl (13.5-17.5); LYMPH # 0.5 10^3/uL (1.5-5.0); MEAN CORPUSCULAR HEMOGLOBIN 31.3 pg (27.0-33.0); MEAN CORPUSCULAR HGB CONC 32.5 g/dl (32.0-36.5); MEAN CORPUSCULAR VOLUME 96.2 fl (80.0-96.0); MONO # 0.3 10^3/uL (0.0-0.8); MONO % 11.7 % (2.0-8.0); NEUTROPHILS # 1.8 10^3/uL (1.5-8.5); NEUTROPHILS % 66.1 % (36.0-66.0); PLATELET COUNT, AUTOMATED 141 10^3/uL (150-450); RED BLOOD COUNT 3.39 10^6/uL (4.30-6.10); WHITE BLOOD COUNT 2.7 10^3/uL (4.0-10.0)
[2022-02-25 23:36] LABS: INR 1.34; PARTIAL THROMBOPLASTIN TIME 27.5 SECONDS (24.8-34.2); PROTHROMBIN TIME 16.8 SECONDS (12.5-14.5)
[2022-02-25 23:40] LABS: LIPASE 31 U/L (12-53)
[2022-02-25 23:42] LABS: BILIRUBIN,DIRECT 0.1 MG/DL (<0.4)
[2022-02-25 23:45] LABS: ALBUMIN 3.5 G/DL (3.2-5.2); ALKALINE PHOSPHATASE 64 U/L (46-116); ALT/SGPT 12 U/L (7.0-40); AST/SGOT 15 U/L (<34); BILIRUBIN,TOTAL 0.3 MG/DL (0.3-1.2); BLOOD UREA NITROGEN 110 MG/DL (9-23); CARBON DIOXIDE LEVEL 20 MMOL/L (20-31); CHLORIDE LEVEL 101 MMOL/L (98-107); CK-MB VALUE MASS < 1.0 NG/ML (<3.6); CPK CREATINE PHOSPHOKINASE 66 U/L (46-171); CREATININE FOR GFR 8.92 MG/DL (0.70-1.30); GLOMERULAR FILTRATION RATE 6.2 (>42); GLUCOSE, FASTING 114 MG/DL (74-106); MB/CK RELATIVE INDEX 1.51 (< OR =4); POTASSIUM SERUM 4.5 MMOL/L (3.5-5.1); SODIUM LEVEL 140 MMOL/L (136-145); TOTAL PROTEIN 6.7 G/DL (5.7-8.2)
[2022-02-26] MEDS ORDERED: MULTIVITAMIN -ADULT INJECTION 10 ML, THIAMINE INJection 100 MG, FOLIC ACID 1 MG in NS 1... IV ONE (00:45)
[2022-02-26] MEDS ORDERED: NS 1,000 ML IV ONE (00:45)
[2022-02-26 00:50] LABS: CK-MB VALUE MASS < 1.0 NG/ML (<3.6)
[2022-02-26 00:52] LABS: CPK CREATINE PHOSPHOKINASE 62 U/L (46-171); MB/CK RELATIVE INDEX 1.61 (< OR =4)
[2022-02-26] MEDS ORDERED: ONDANSETRON 4MG 2ML VIAL IV ONE (01:55)
[2022-02-26] MEDS ORDERED: MIRA1POW3 PO (02:33)
[2022-02-26] MEDS ORDERED: MYLASSUD PO (02:33)
[2022-02-26] MEDS ORDERED: HOME MED LIST COMPLETE! XX SCH (02:35)
[2022-02-26] MEDS ORDERED: NS 1,000 ML IV SCH (02:40)
[2022-02-26] MEDS: LEVOTHYROXINE 88MCG TABLET (0.088 MG) PO SCH (05:41)
[2022-02-26 05:54] LABS: MAGNESIUM LEVEL 1.4 MG/DL (1.8-2.4)
[2022-02-26 06:03] LABS: CALCIUM LEVEL 8.8 MG/DL (8.3-10.6); CREATININE FOR GFR 9.02 MG/DL (0.70-1.30); GLOMERULAR FILTRATION RATE 6.1 (>42)
[2022-02-26] MEDS ORDERED: MAG SULF 1GM/100ML (MAG RUN) 1 GM in IV 1 EA IV ONE (08:00)
[2022-02-26] MEDS: (RENVELA) SEVELAMER **CARBONate** 800 MG TAB PO SCH ×4 (08:00→18:57)
[2022-02-26] MEDS: allopurinoL 100 MG TAB PO SCH (08:10)
[2022-02-26] MEDS: atenoloL 25 MG TAB PO SCH (08:11)
[2022-02-26] MEDS: TAMSULOSIN 0.4 MG CAP PO SCH (08:12)
[2022-02-26] MEDS: APIXABAN 2.5 MG TAB (ELIQUIS) PO SCH ×2 (08:12→21:08)
[2022-02-26] MEDS: LIDOCAINE 5% (LIDODERM) PATCH TD SCH (08:19)
[2022-02-26] MEDS: MULTIVITAMINS/MINERALS THERAP 1 TAB PO SCH (08:20)
[2022-02-26] MEDS ORDERED: PANTOPRAZOLE 40MG TAB (PROTONIX) PO SCH (09:00)
[2022-02-26] MEDS: ONDANSETRON 4MG 2ML VIAL IV PRN ×2 (09:41→21:08)
[2022-02-26] MEDS ORDERED: HEPARIN 1,000UNITS/ML 10ML VIAL (FOR RADIOLOGY & DIALYSIS ONLY) XX SCH (12:15)
[2022-02-26] MEDS ORDERED: HEPARIN 1,000UNITS/ML 10ML VIAL (FOR RADIOLOGY & DIALYSIS ONLY) IV PRN (12:15)
[2022-02-26] MEDS ORDERED: LIDOCAINE 1% SDV 5ML VIAL SC PRN (12:15)
[2022-02-26] MEDS ORDERED: SODIUM CHLORIDE 0.9% 1000ML IV PRN (12:15)
[2022-02-26 16:00] VITALS: BP 117/73
[2022-02-26] MEDS: ATORVASTATIN 20 MG TAB PO SCH (21:08)
[2022-02-26 22:00] VITALS: BP 121/71
[2022-02-26] MEDS: ACETAMINOPHEN TAB 650MG DOSE (2X325MG) PO PRN (22:20)
[2022-02-27 05:30] VITALS: BP 151/71
[2022-02-27 05:32] VITALS: BP 162/86
[2022-02-27 05:34] VITALS: BP 156/82
[2022-02-27] MEDS: LEVOTHYROXINE 88MCG TABLET (0.088 MG) PO SCH (05:39)
[2022-02-27] MEDS: ONDANSETRON 4MG 2ML VIAL IV PRN (05:53)
[2022-02-27] MEDS: METOCLOPRAMIDE INJ 10MG/2ML VIAL IV SCH ×3 (06:00→21:30)
[2022-02-27 06:09] LABS: BASO % 0.9 % (0.0-1.0); EOS # 0.1 10^3/uL (0.0-0.5); EOS % 3.9 % (0.0-3.0); HEMATOCRIT 28.3 % (42.0-52.0); HEMOGLOBIN 9.3 g/dl (13.5-17.5); LYMPH # 0.5 10^3/uL (1.5-5.0); LYMPH % 23.3 % (24.0-44.0); MEAN CORPUSCULAR HEMOGLOBIN 31.5 pg (27.0-33.0); MEAN CORPUSCULAR HGB CONC 32.9 g/dl (32.0-36.5); MEAN CORPUSCULAR VOLUME 95.9 fl (80.0-96.0); MONO # 0.4 10^3/uL (0.0-0.8); NEUTROPHILS # 1.2 10^3/uL (1.5-8.5); NEUTROPHILS % 52.5 % (36.0-66.0); PLATELET COUNT, AUTOMATED 122 10^3/uL (150-450); RED BLOOD COUNT 2.95 10^6/uL (4.30-6.10); WHITE BLOOD COUNT 2.3 10^3/uL (4.0-10.0)
[2022-02-27 06:27] LABS: CALCIUM LEVEL 8.2 MG/DL (8.3-10.6); CREATININE FOR GFR 6.68 MG/DL (0.70-1.30); GLOMERULAR FILTRATION RATE 8.6 (>42); POTASSIUM SERUM 3.7 MMOL/L (3.5-5.1)
[2022-02-27] MEDS: (RENVELA) SEVELAMER **CARBONate** 800 MG TAB PO SCH ×4 (08:00→18:00)
[2022-02-27] MEDS: ACETAMINOPHEN TAB 650MG DOSE (2X325MG) PO PRN (08:59)
[2022-02-27] MEDS: PANTOPRAZOLE 40MG VIAL IV SCH (10:42)
[2022-02-27] MEDS: LIDOCAINE 5% (LIDODERM) PATCH TD SCH (10:43)
[2022-02-27] MEDS: APIXABAN 2.5 MG TAB (ELIQUIS) PO SCH ×2 (10:43→21:30)
[2022-02-27] MEDS: atenoloL 25 MG TAB PO SCH (10:46)
[2022-02-27 14:00] VITALS: BP 129/64
[2022-02-27 20:56] VITALS: BP 146/68
[2022-02-27] MEDS: MAALOX 30 ML SUSP *UDC PO PRN (23:01)
[2022-02-28] MEDS: ACETAMINOPHEN TAB 650MG DOSE (2X325MG) PO PRN ×2 (05:20→20:41)
[2022-02-28] MEDS: LEVOTHYROXINE 88MCG TABLET (0.088 MG) PO SCH (05:20)
[2022-02-28] MEDS: METOCLOPRAMIDE INJ 10MG/2ML VIAL IV SCH ×2 (05:20→17:07)
[2022-02-28 06:00] VITALS: BP 98/94
[2022-02-28] MEDS ORDERED: HEPARIN 1,000UNITS/ML 10ML VIAL (FOR RADIOLOGY & DIALYSIS ONLY) XX SCH (06:55)
[2022-02-28] MEDS ORDERED: HEPARIN 1,000UNITS/ML 10ML VIAL (FOR RADIOLOGY & DIALYSIS ONLY) IV PRN (06:55)
[2022-02-28] MEDS ORDERED: SODIUM CHLORIDE 0.9% 1000ML IV PRN (06:55)
[2022-02-28] MEDS: (RENVELA) SEVELAMER **CARBONate** 800 MG TAB PO SCH ×3 (08:00→17:07)
[2022-02-28] MEDS: APIXABAN 2.5 MG TAB (ELIQUIS) PO SCH ×2 (08:23→20:41)
[2022-02-28] MEDS: PANTOPRAZOLE 40MG VIAL IV SCH (08:24)
[2022-02-28] MEDS: MAALOX 30 ML SUSP *UDC PO PRN (08:24)
[2022-02-28] MEDS: LIDOCAINE 5% (LIDODERM) PATCH TD SCH (08:24)
[2022-02-28] MEDS: atenoloL 25 MG TAB PO SCH (08:24)
[2022-02-28 08:33] LABS: CALCIUM LEVEL 8.6 MG/DL (8.3-10.6); CREATININE FOR GFR 7.77 MG/DL (0.70-1.30); GLOMERULAR FILTRATION RATE 7.2 (>42); POTASSIUM SERUM 3.9 MMOL/L (3.5-5.1)
[2022-02-28 09:09] VITALS: BP 169/69
[2022-02-28] MEDS ORDERED: LOPERAMIDE 2 MG CAPLET PO PRN (09:40)
[2022-02-28] MEDS: METOCLOPRAMIDE 5 MG TAB PO SCH (20:41)
[2022-02-28] MEDS: ATORVASTATIN 20 MG TAB PO SCH (20:41)
[2022-02-28 22:00] VITALS: BP 127/58
[2022-03-01] MEDS: LEVOTHYROXINE 88MCG TABLET (0.088 MG) PO SCH (05:34)
[2022-03-01 06:00] VITALS: BP 129/58
[2022-03-01] MEDS: (RENVELA) SEVELAMER **CARBONate** 800 MG TAB PO SCH ×2 (07:24→12:14)
[2022-03-01] MEDS: METOCLOPRAMIDE 5 MG TAB PO SCH (07:30)
[2022-03-01] MEDS ORDERED: LOPE2CA PO (08:21)
[2022-03-01] MEDS ORDERED: ONDA4TAB6 PO (08:24)
[2022-03-01] MEDS ORDERED: PANTOPRAZOLE 40MG TAB (PROTONIX) PO SCH (09:00)
[2022-03-01] MEDS: MULTIVITAMINS/MINERALS THERAP 1 TAB PO SCH ×2 (09:00→10:02)
[2022-03-01] MEDS: LIDOCAINE 5% (LIDODERM) PATCH TD SCH (10:02)
[2022-03-01] MEDS: APIXABAN 2.5 MG TAB (ELIQUIS) PO SCH (10:02)
[2022-03-01] MEDS: TAMSULOSIN 0.4 MG CAP PO SCH (10:02)
[2022-03-01 10:03] VITALS: BP 149/73
[2022-03-01] MEDS: allopurinoL 100 MG TAB PO SCH (10:03)
[2022-03-01] MEDS: atenoloL 25 MG TAB PO SCH (10:03)
== END 2022-03-01 12:20 | disposition home or self-care (01) | DRG 391 ==
LOC: M ED 22:30 → M ED INP 22:31 → OBSVTOIN 02-26 11:10 → ENRESERV 02-26 14:40 → M MS5PR 02-26 15:50
PROVIDERS: ADMIT Family Medicine; ATTEND Internal Medicine Nephrology
PROC: 5A1D70Z Performance of Urinary Filtration, Intermittent, Less than 6 Hours Per Day (ICD-10-PCS; principal; 2022-02-26)
DX: A08.11 Acute gastroenteropathy due to Norwalk agent (principal); N18.6 End stage renal disease; I13.2 Hypertensive heart and chronic kidney disease with heart failure and with stage 5 chronic kidney disease, or end stage renal disease; I50.22 Chronic systolic (congestive) heart failure; E87.20 Acidosis, unspecified; Z99.2 Dependence on renal dialysis; E03.9 Hypothyroidism, unspecified; I48.0 Paroxysmal atrial fibrillation; I25.10 Atherosclerotic heart disease of native coronary artery without angina pectoris; M19.90 Unspecified osteoarthritis, unspecified site; Z79.01 Long term (current) use of anticoagulants; Z79.890 Hormone replacement therapy; Z79.899 Other long term (current) drug therapy; Z88.0 Allergy status to penicillin; Z88.1 Allergy status to other antibiotic agents; Z88.2 Allergy status to sulfonamides; Z88.8 Allergy status to other drugs, medicaments and biological substances; Z91.041 Radiographic dye allergy status; Z85.528 Personal history of other malignant neoplasm of kidney; Z90.5 Acquired absence of kidney; Z95.1 Presence of aortocoronary bypass graft; Z95.0 Presence of cardiac pacemaker

== ENCOUNTER 2022-03-09 19:42 | Observation (INO) | payer MEDICARE ==
[~2022-03-09] VITALS: Ht 185.4 cm; Wt 79.5 kg
[~2022-03-09 19:42] MED LIST changes: +LOPE2CA PO; +MIRA1POW3 PO; +MYLASSUD PO; +ONDA4TAB6 PO
[2022-03-09 21:20] LABS: BASO % 0.3 % (0.0-1.0); EOS % 1.4 % (0.0-3.0); HEMOGLOBIN 9.8 g/dl (13.5-17.5); LYMPH # 0.5 10^3/uL (1.5-5.0); LYMPH % 16.9 % (24.0-44.0); MEAN CORPUSCULAR HEMOGLOBIN 31.3 pg (27.0-33.0); MEAN CORPUSCULAR HGB CONC 32.7 g/dl (32.0-36.5); MEAN CORPUSCULAR VOLUME 95.8 fl (80.0-96.0); MONO # 0.3 10^3/uL (0.0-0.8); MONO % 11.4 % (2.0-8.0); NEUTROPHILS % 69.7 % (36.0-66.0); PLATELET COUNT, AUTOMATED 113 10^3/uL (150-450); RED BLOOD COUNT 3.13 10^6/uL (4.30-6.10); WHITE BLOOD COUNT 2.9 10^3/uL (4.0-10.0)
[2022-03-09 21:51] LABS: CALCIUM LEVEL 7.9 MG/DL (8.3-10.6); CREATININE FOR GFR 11.11 MG/DL (0.70-1.30); GLOMERULAR FILTRATION RATE 4.8 (>42); POTASSIUM SERUM 4.5 MMOL/L (3.5-5.1)
[2022-03-09] MEDS ORDERED: HOME MED LIST COMPLETE! XX SCH (23:30)
[2022-03-10] MEDS ORDERED: ACETAMINOPHEN TAB 650MG DOSE (2X325MG) PO PRN (00:20)
[2022-03-10] MEDS ORDERED: DEXTROMETHORPHAN 60MG/10ML SUSP 90ML BTL(DELSYM) PO PRN (01:00)
[2022-03-10 01:37] LABS: APPEARANCE, URINE MANUAL CLEAR (CLEAR); BILIRUBIN, URINE MANUAL NEGATIVE (NEGATIVE); BLOOD URINE MANUAL NEGATIVE (NEGATIVE); COLOR, URINE MANUAL YELLOW (YELLOW); GLUCOSE, URINE (UA) MANUAL NEGATIVE (NEGATIVE); KETONE, URINE MANUAL NEGATIVE (NEGATIVE); NITRITE, URINE MANUAL NEGATIVE (NEGATIVE); PROTEIN, URINE MANUAL 1+ mg/dL (NEGATIVE); UROBILINOGEN, URINE MANUAL NORMAL (NORMAL)
[2022-03-10 01:38] LABS: LEUKOCYTE ESTERASE, URINE MAN NEGATIVE (NEGATIVE)
[2022-03-10 01:45] LABS: BACTERIA, URINE NONE SEEN; HYALINE CAST, URINE NONE SEEN /lpf (0-1); RBC, URINE NONE SEEN /hpf (0-3); SQUAMOUS EPITHELIAL CELL URINE SMALL AMOUNT /hpf (SMALL AMT)
[2022-03-10] MEDS ORDERED: MOXIFLOXACIN 400 MG TAB PO ONE (02:00)
[2022-03-10] MEDS ORDERED: LEVOTHYROXINE 88MCG TABLET (0.088 MG) PO SCH (06:00)
[2022-03-10 08:20] LABS: BASO % 0.4 % (0.0-1.0); EOS # 0.1 10^3/uL (0.0-0.5); HEMATOCRIT 27.7 % (42.0-52.0); HEMOGLOBIN 9.1 g/dl (13.5-17.5); LYMPH # 0.5 10^3/uL (1.5-5.0); MEAN CORPUSCULAR HEMOGLOBIN 31.5 pg (27.0-33.0); MEAN CORPUSCULAR HGB CONC 32.9 g/dl (32.0-36.5); MEAN CORPUSCULAR VOLUME 95.8 fl (80.0-96.0); MONO # 0.3 10^3/uL (0.0-0.8); MONO % 12.9 % (2.0-8.0); NEUTROPHILS # 1.7 10^3/uL (1.5-8.5); NEUTROPHILS % 66.3 % (36.0-66.0); PLATELET COUNT, AUTOMATED 107 10^3/uL (150-450); RED BLOOD COUNT 2.89 10^6/uL (4.30-6.10); WHITE BLOOD COUNT 2.6 10^3/uL (4.0-10.0)
[2022-03-10] MEDS ORDERED: SODIUM CHLORIDE 0.9% 1000ML IV PRN (08:25)
[2022-03-10] MEDS ORDERED: LIDOCAINE 1% SDV 5ML VIAL SC PRN (08:25)
[2022-03-10] MEDS ORDERED: HEPARIN 1,000UNITS/ML 10ML VIAL (FOR RADIOLOGY & DIALYSIS ONLY) IV PRN (08:25)
[2022-03-10] MEDS ORDERED: HEPARIN 1,000UNITS/ML 10ML VIAL (FOR RADIOLOGY & DIALYSIS ONLY) XX SCH (08:25)
[2022-03-10 08:44] LABS: MAGNESIUM LEVEL 1.4 MG/DL (1.8-2.4)
[2022-03-10 08:48] LABS: CALCIUM LEVEL 7.5 MG/DL (8.3-10.6); GLOMERULAR FILTRATION RATE 4.8 (>42); POTASSIUM SERUM 4.3 MMOL/L (3.5-5.1)
[2022-03-10] MEDS ORDERED: TAMSULOSIN 0.4 MG CAP PO SCH (09:00)
[2022-03-10] MEDS ORDERED: allopurinoL 100 MG TAB PO SCH (09:00)
[2022-03-10] MEDS ORDERED: TORSEMIDE (DEMADEX) 50 MG PER 1/2 TAB PO SCH (09:00)
[2022-03-10] MEDS ORDERED: APIXABAN 2.5 MG TAB (ELIQUIS) PO SCH (09:00)
[2022-03-10] MEDS ORDERED: LIDOCAINE 5% (LIDODERM) PATCH TD SCH (09:00)
[2022-03-10] MEDS ORDERED: PANTOPRAZOLE 40MG TAB (PROTONIX) PO SCH (09:00)
[2022-03-10] MEDS ORDERED: atenoloL 25 MG TAB PO SCH (09:00)
[2022-03-10 09:34] VITALS: BP 146/78
[2022-03-10] MEDS: MAG SULF 1GM/100ML (MAG RUN) 1 GM in IV 1 EA IV SCH ×3 (09:35→12:52)
[2022-03-10] MEDS ORDERED: MOXI400T11 PO (13:06)
[2022-03-10 18:27] VITALS: BP 111/59
[2022-03-11] MEDS ORDERED: MOXIFLOXACIN 400 MG TAB PO SCH (06:00)
== END 2022-03-10 18:38 | disposition home or self-care (01) ==
LOC: EDBD 19:42 → M ED 19:42 → M ED INP 03-10 01:09
PROVIDERS: ADMIT Internal Medicine; ATTEND Internal Medicine
DX: J09.X2 Influenza due to identified novel influenza A virus with other respiratory manifestations (principal); N18.6 End stage renal disease; Z99.2 Dependence on renal dialysis; Z91.15 Patient's noncompliance with renal dialysis; D61.818 Other pancytopenia; I48.91 Unspecified atrial fibrillation; I11.0 Hypertensive heart disease with heart failure; I50.20 Unspecified systolic (congestive) heart failure; I25.10 Atherosclerotic heart disease of native coronary artery without angina pectoris; Z95.1 Presence of aortocoronary bypass graft; E03.9 Hypothyroidism, unspecified; K21.9 Gastro-esophageal reflux disease without esophagitis; M10.9 Gout, unspecified; N40.0 Benign prostatic hyperplasia without lower urinary tract symptoms; R00.1 Bradycardia, unspecified; Z85.528 Personal history of other malignant neoplasm of kidney; Z90.5 Acquired absence of kidney; Z79.899 Other long term (current) drug therapy; Z79.01 Long term (current) use of anticoagulants; Z79.890 Hormone replacement therapy; Z88.0 Allergy status to penicillin; Z88.1 Allergy status to other antibiotic agents; Z88.2 Allergy status to sulfonamides; Z88.8 Allergy status to other drugs, medicaments and biological substances; Z91.041 Radiographic dye allergy status; Z95.0 Presence of cardiac pacemaker
CPT/HCPCS: 36415; 71045; 80048; 81000; 81015; 83735; 84484; 85025; 87040; 87486; 87581; 87633; 87798; 93005; 93041; 94760; 97161; 97530; 99285; G0257; G0378

== ENCOUNTER → 2022-07-13 | Outpatient (CLI) | payer MEDICARE ==
[~2022-07-13] MED LIST changes: +MOXI400T11 PO
== END ==
LOC: M SOG 08:09
PROVIDERS: ATTEND Orthopaedic Surgery
DX: M25.551 Pain in right hip (principal); M25.552 Pain in left hip; M25.561 Pain in right knee; M25.562 Pain in left knee; Z53.8 Procedure and treatment not carried out for other reasons

== ENCOUNTER → 2022-08-07 | Outpatient (CLI) | payer MEDICARE | LOC: M SOG 08:12 | PROVIDERS: ATTEND Orthopaedic Surgery | DX: Z53.9 Procedure and treatment not carried out, unspecified reason (principal) ==

== ENCOUNTER → 2022-09-09 | Outpatient (CLI) | payer MEDICARE | LOC: M SOG 08:17 | PROVIDERS: ATTEND Orthopaedic Surgery | DX: Z53.9 Procedure and treatment not carried out, unspecified reason (principal); M16.0 Bilateral primary osteoarthritis of hip; M17.0 Bilateral primary osteoarthritis of knee ==

== ENCOUNTER → 2022-10-16 | Outpatient (CLI) | payer MEDICARE ==
[~2022-10-16] MED LIST changes: +DICL100G10 TOP; -DICL1GEL3 TOP
== END ==
LOC: M SOG 07:56
PROVIDERS: ATTEND Orthopaedic Surgery
DX: Z53.9 Procedure and treatment not carried out, unspecified reason (principal)

== ENCOUNTER 2022-10-28 18:29 | Observation (INO) | payer MEDICARE, OTHER ==
[~2022-10-28] VITALS: Ht 188 cm; Wt 77.0 kg
[2022-10-28] MEDS ORDERED: ACETAMINOPHEN *IV* 1,000 MG in IV 1 EA IV ONE (19:20)
[2022-10-28] MEDS ORDERED: MORPHINE 2 MG/ML 1ML VIAL IV ONE ×2 (19:20→21:55)
[2022-10-28 20:22] LABS: BASO % 0.8 % (0.0-1.0); EOS # 0.1 10^3/uL (0.0-0.5); EOS % 1.2 % (0.0-3.0); HEMATOCRIT 31.3 % (42.0-52.0); HEMOGLOBIN 10.1 g/dl (13.5-17.5); LYMPH # 0.6 10^3/uL (1.5-5.0); LYMPH % 10.8 % (24.0-44.0); MEAN CORPUSCULAR HEMOGLOBIN 30.7 pg (27.0-33.0); MEAN CORPUSCULAR HGB CONC 32.3 g/dl (32.0-36.5); MEAN CORPUSCULAR VOLUME 95.1 fl (80.0-96.0); MONO # 0.4 10^3/uL (0.0-0.8); MONO % 8.2 % (2.0-8.0); NEUTROPHILS % 78.6 % (36.0-66.0); PLATELET COUNT, AUTOMATED 124 10^3/uL (150-450); RED BLOOD COUNT 3.29 10^6/uL (4.30-6.10); WHITE BLOOD COUNT 5.1 10^3/uL (4.0-10.0)
[2022-10-28 20:51] LABS: CK-MB VALUE MASS < 1.0 NG/ML (<3.6)
[2022-10-28 20:53] LABS: CPK CREATINE PHOSPHOKINASE 57 U/L (46-171); MB/CK RELATIVE INDEX 1.75 (< OR =4)
[2022-10-28 22:13] LABS: ALBUMIN 3.4 G/DL (3.2-5.2); ALKALINE PHOSPHATASE 71 U/L (46-116); ALT/SGPT < 9 U/L (7.0-40); AST/SGOT < 8 U/L (<34); BILIRUBIN,TOTAL 0.4 MG/DL (0.3-1.2); BLOOD UREA NITROGEN 52 MG/DL (9-23); CALCIUM LEVEL 9.3 MG/DL (8.3-10.6); CARBON DIOXIDE LEVEL 27 MMOL/L (20-31); CHLORIDE LEVEL 100 MMOL/L (98-107); CREATININE FOR GFR 5.67 MG/DL (0.70-1.30); GLOMERULAR FILTRATION RATE 10.4 (>42); GLUCOSE, FASTING 130 MG/DL (74-106); MAGNESIUM LEVEL 1.9 MG/DL (1.8-2.4); POTASSIUM SERUM 3.9 MMOL/L (3.5-5.1); SODIUM LEVEL 139 MMOL/L (136-145); TOTAL PROTEIN 6.2 G/DL (5.7-8.2)
[2022-10-28 22:30] LABS: CK-MB VALUE MASS < 1.0 NG/ML (<3.6)
[2022-10-28 22:32] LABS: CPK CREATINE PHOSPHOKINASE 70 U/L (46-171); MB/CK RELATIVE INDEX 1.42 (< OR =4)
[2022-10-28] MEDS ORDERED: oxyCODONE 5MG TAB PO ONE (22:40)
[2022-10-29 00:17] VITALS: O2SAT 96
[2022-10-29 02:25] LABS: RSV AMPLIFICATION NEGATIVE (NEGATIVE)
[2022-10-29 04:00] VITALS: BP 165/77; TEMP 98.1; O2SAT 100
[2022-10-29] MEDS ORDERED: traMADol 50 MG TAB PO PRN (04:30)
[2022-10-29] MEDS ORDERED: RENATAB5 PO (04:41)
[2022-10-29] MEDS ORDERED: FOSR1000 PO (04:41)
[2022-10-29] MEDS ORDERED: MIRA1POW3 PO (04:41)
[2022-10-29] MEDS ORDERED: ALBU8.5H INH (04:41)
[2022-10-29] MEDS ORDERED: HOME MED LIST COMPLETE! XX SCH (04:50)
[2022-10-29 05:47] LABS: BASO % 0.8 % (0.0-1.0); EOS # 0.1 10^3/uL (0.0-0.5); EOS % 2.2 % (0.0-3.0); HEMOGLOBIN 9.5 g/dl (13.5-17.5); LYMPH # 0.6 10^3/uL (1.5-5.0); LYMPH % 16.2 % (24.0-44.0); MEAN CORPUSCULAR HEMOGLOBIN 30.4 pg (27.0-33.0); MEAN CORPUSCULAR HGB CONC 31.7 g/dl (32.0-36.5); MEAN CORPUSCULAR VOLUME 96.2 fl (80.0-96.0); MONO # 0.3 10^3/uL (0.0-0.8); MONO % 9.3 % (2.0-8.0); NEUTROPHILS # 2.6 10^3/uL (1.5-8.5); NEUTROPHILS % 71.2 % (36.0-66.0); PLATELET COUNT, AUTOMATED 116 10^3/uL (150-450); RED BLOOD COUNT 3.12 10^6/uL (4.30-6.10); WHITE BLOOD COUNT 3.7 10^3/uL (4.0-10.0)
[2022-10-29 06:17] LABS: ALBUMIN 3.2 G/DL (3.2-5.2); CALCIUM LEVEL 9.5 MG/DL (8.3-10.6); CREATININE FOR GFR 6.4 MG/DL (0.70-1.30); MAGNESIUM LEVEL 1.9 MG/DL (1.8-2.4); PHOSPHORUS LEVEL 6.1 MG/DL (2.4-5.1); POTASSIUM SERUM 4.2 MMOL/L (3.5-5.1)
[2022-10-29] MEDS ORDERED: SODIUM CHLORIDE 0.9% 1000ML IV PRN (06:50)
[2022-10-29] MEDS ORDERED: HEPARIN 1,000UNITS/ML 10ML VIAL (FOR RADIOLOGY & DIALYSIS ONLY) IV PRN (06:50)
[2022-10-29] MEDS ORDERED: HEPARIN 1,000UNITS/ML 10ML VIAL (FOR RADIOLOGY & DIALYSIS ONLY) XX SCH (06:50)
[2022-10-29] MEDS ORDERED: ALBUTEROL 90 MCG/ACT 8GM HFA INHALER INH PRN (07:15)
[2022-10-29] MEDS ORDERED: MECLIZINE 25 MG TABLET PO PRN (07:15)
[2022-10-29 08:08] VITALS: BP 153/70
[2022-10-29] MEDS: TAMSULOSIN 0.4 MG CAP PO SCH (09:40)
[2022-10-29] MEDS: atenoloL 25 MG TAB PO SCH (09:41)
[2022-10-29] MEDS: ACETAMINOPHEN TAB 650MG DOSE (2X325MG) PO PRN (09:41)
[2022-10-29] MEDS: LANTHANUM CARBONATE 500MG CHEW TABLET PO SCH ×4 (09:42→18:15)
[2022-10-29] MEDS: TORSEMIDE (DEMADEX) 50 MG PER 1/2 TAB PO SCH ×2 (09:42→17:02)
[2022-10-29] MEDS: PANTOPRAZOLE 40MG TAB (PROTONIX) PO SCH (09:42)
[2022-10-29] MEDS: APIXABAN 2.5 MG TAB (ELIQUIS) PO SCH ×2 (09:42→21:00)
[2022-10-29] MEDS: allopurinoL 100 MG TAB PO SCH (09:43)
[2022-10-29] MEDS: LIDOCAINE 5% (LIDODERM) PATCH TD SCH ×2 (09:43)
[2022-10-29] MEDS: LEVOTHYROXINE 88MCG TABLET (0.088 MG) PO SCH (09:49)
[2022-10-29] MEDS ORDERED: NORCO, ANEXSIA 5/325MG TABLET (HYDROcodone/ACETAMINOPHEN) PO PRN (11:10)
[2022-10-29 16:45] VITALS: BP 152/71; TEMP 97.3; O2SAT 98
[2022-10-29] MEDS: ONDANSETRON 4MG 2ML VIAL IV PRN (17:02)
[2022-10-29] MEDS: traMADol 50 MG TAB PO PRN (18:15)
[2022-10-29 19:53] VITALS: BP 163/76; TEMP 97.7; O2SAT 99
[2022-10-30] MEDS: traMADol 50 MG TAB PO PRN ×3 (01:29→20:24)
[2022-10-30 05:40] VITALS: BP 158/79; TEMP 98.6; O2SAT 94
[2022-10-30] MEDS: LEVOTHYROXINE 88MCG TABLET (0.088 MG) PO SCH (06:00)
[2022-10-30] MEDS: TAMSULOSIN 0.4 MG CAP PO SCH (09:00)
[2022-10-30] MEDS: LANTHANUM CARBONATE 500MG CHEW TABLET PO SCH ×3 (09:21→17:44)
[2022-10-30] MEDS: TORSEMIDE (DEMADEX) 50 MG PER 1/2 TAB PO SCH ×2 (09:22→17:44)
[2022-10-30 09:30] LABS: BASO % 0.5 % (0.0-1.0); EOS # 0.1 10^3/uL (0.0-0.5); EOS % 0.8 % (0.0-3.0); HEMATOCRIT 33.9 % (42.0-52.0); HEMOGLOBIN 10.9 g/dl (13.5-17.5); LYMPH # 0.4 10^3/uL (1.5-5.0); LYMPH % 6.2 % (24.0-44.0); MEAN CORPUSCULAR HEMOGLOBIN 30.8 pg (27.0-33.0); MEAN CORPUSCULAR HGB CONC 32.2 g/dl (32.0-36.5); MEAN CORPUSCULAR VOLUME 95.8 fl (80.0-96.0); MONO # 0.6 10^3/uL (0.0-0.8); MONO % 10.3 % (2.0-8.0); NEUTROPHILS % 81.5 % (36.0-66.0); PLATELET COUNT, AUTOMATED 145 10^3/uL (150-450); RED BLOOD COUNT 3.54 10^6/uL (4.30-6.10); WHITE BLOOD COUNT 6.1 10^3/uL (4.0-10.0)
[2022-10-30] MEDS: PANTOPRAZOLE 40MG TAB (PROTONIX) PO SCH (09:33)
[2022-10-30] MEDS: atenoloL 25 MG TAB PO SCH (09:38)
[2022-10-30] MEDS: LIDOCAINE 5% (LIDODERM) PATCH TD SCH ×2 (09:38→09:39)
[2022-10-30] MEDS: allopurinoL 100 MG TAB PO SCH (09:40)
[2022-10-30] MEDS: APIXABAN 2.5 MG TAB (ELIQUIS) PO SCH ×2 (09:40→20:17)
[2022-10-30 10:04] LABS: ALBUMIN 3.7 G/DL (3.2-5.2); ALKALINE PHOSPHATASE 65 U/L (46-116); ALT/SGPT < 9 U/L (7.0-40); AST/SGOT < 8 U/L (<34); BILIRUBIN,TOTAL 0.8 MG/DL (0.3-1.2); BLOOD UREA NITROGEN 35 MG/DL (9-23); CALCIUM LEVEL 9.8 MG/DL (8.3-10.6); CARBON DIOXIDE LEVEL 25 MMOL/L (20-31); CHLORIDE LEVEL 99 MMOL/L (98-107); CREATININE FOR GFR 4.68 MG/DL (0.70-1.30); GLOMERULAR FILTRATION RATE 12.9 (>42); GLUCOSE, FASTING 164 MG/DL (74-106); MAGNESIUM LEVEL 1.7 MG/DL (1.8-2.4); POTASSIUM SERUM 4.9 MMOL/L (3.5-5.1); SODIUM LEVEL 135 MMOL/L (136-145); TOTAL PROTEIN 6.8 G/DL (5.7-8.2)
[2022-10-30 14:00] VITALS: BP 155/72; TEMP 98.4; O2SAT 99
[2022-10-30 22:00] VITALS: BP 155/71; TEMP 97.7; O2SAT 94
[2022-10-31] MEDS: LEVOTHYROXINE 88MCG TABLET (0.088 MG) PO SCH (05:25)
[2022-10-31] MEDS: traMADol 50 MG TAB PO PRN ×2 (05:30→16:35)
[2022-10-31 06:00] VITALS: BP 164/84; TEMP 97.9; O2SAT 95
[2022-10-31] MEDS: TAMSULOSIN 0.4 MG CAP PO SCH (07:50)
[2022-10-31] MEDS: PANTOPRAZOLE 40MG TAB (PROTONIX) PO SCH (07:50)
[2022-10-31] MEDS: TORSEMIDE (DEMADEX) 50 MG PER 1/2 TAB PO SCH ×2 (07:50→16:28)
[2022-10-31] MEDS: allopurinoL 100 MG TAB PO SCH (07:50)
[2022-10-31] MEDS: APIXABAN 2.5 MG TAB (ELIQUIS) PO SCH ×2 (07:51→21:13)
[2022-10-31] MEDS: atenoloL 25 MG TAB PO SCH (07:51)
[2022-10-31] MEDS: LIDOCAINE 5% (LIDODERM) PATCH TD SCH ×2 (07:51→07:52)
[2022-10-31] MEDS: LANTHANUM CARBONATE 500MG CHEW TABLET PO SCH ×3 (07:52→16:34)
[2022-10-31] MEDS ORDERED: SODIUM CHLORIDE 0.9% 1000ML IV PRN (08:10)
[2022-10-31] MEDS ORDERED: HEPARIN 1,000UNITS/ML 10ML VIAL (FOR RADIOLOGY & DIALYSIS ONLY) IV PRN (08:10)
[2022-10-31] MEDS ORDERED: HEPARIN 1,000UNITS/ML 10ML VIAL (FOR RADIOLOGY & DIALYSIS ONLY) XX SCH (08:10)
[2022-10-31 14:00] VITALS: BP 89/50; TEMP 98.2; O2SAT 93
[2022-10-31 14:30] VITALS: BP 90/52
[2022-10-31 15:00] VITALS: BP 122/54
[2022-10-31 16:27] VITALS: BP 119/62
[2022-10-31 22:00] VITALS: BP 118/55; TEMP 97.9; O2SAT 95
[2022-11-01] MEDS: LEVOTHYROXINE 88MCG TABLET (0.088 MG) PO SCH (05:13)
[2022-11-01] MEDS: traMADol 50 MG TAB PO PRN (05:13)
[2022-11-01 06:00] VITALS: BP 139/62; TEMP 98.2; O2SAT 94
[2022-11-01] MEDS: LIDOCAINE 5% (LIDODERM) PATCH TD SCH ×2 (09:31→09:32)
[2022-11-01] MEDS: LANTHANUM CARBONATE 500MG CHEW TABLET PO SCH ×3 (09:32→17:43)
[2022-11-01] MEDS: PANTOPRAZOLE 40MG TAB (PROTONIX) PO SCH (09:33)
[2022-11-01] MEDS: TAMSULOSIN 0.4 MG CAP PO SCH (09:33)
[2022-11-01] MEDS: atenoloL 25 MG TAB PO SCH (09:33)
[2022-11-01] MEDS: APIXABAN 2.5 MG TAB (ELIQUIS) PO SCH ×2 (09:33→21:17)
[2022-11-01] MEDS: allopurinoL 100 MG TAB PO SCH (09:33)
[2022-11-01] MEDS: TORSEMIDE (DEMADEX) 50 MG PER 1/2 TAB PO SCH ×2 (09:33→17:43)
[2022-11-01 14:00] VITALS: BP 143/70; TEMP 98.4; O2SAT 96
[2022-11-02] MEDS: traMADol 50 MG TAB PO PRN ×3 (04:26→18:47)
[2022-11-02] MEDS: LEVOTHYROXINE 88MCG TABLET (0.088 MG) PO SCH (04:26)
[2022-11-02 06:00] VITALS: BP 148/65; TEMP 98.2; O2SAT 97
[2022-11-02] MEDS: LANTHANUM CARBONATE 500MG CHEW TABLET PO SCH ×3 (08:00→17:15)
[2022-11-02] MEDS: allopurinoL 100 MG TAB PO SCH (09:20)
[2022-11-02] MEDS: atenoloL 25 MG TAB PO SCH (09:22)
[2022-11-02] MEDS: TAMSULOSIN 0.4 MG CAP PO SCH (09:23)
[2022-11-02] MEDS: PANTOPRAZOLE 40MG TAB (PROTONIX) PO SCH (09:23)
[2022-11-02] MEDS: APIXABAN 2.5 MG TAB (ELIQUIS) PO SCH ×2 (09:23→20:30)
[2022-11-02] MEDS: TORSEMIDE (DEMADEX) 50 MG PER 1/2 TAB PO SCH ×2 (09:23→17:15)
[2022-11-02] MEDS: LIDOCAINE 5% (LIDODERM) PATCH TD SCH ×2 (09:24→09:26)
[2022-11-02] MEDS: MIRALAX *UNIT DOSE* 17GM PACKET PO PRN (15:31)
[2022-11-03] MEDS: traMADol 50 MG TAB PO PRN ×4 (01:39→23:17)
[2022-11-03 06:00] VITALS: BP 136/65; TEMP 97.9; O2SAT 98
[2022-11-03] MEDS ORDERED: HEPARIN 1,000UNITS/ML 10ML VIAL (FOR RADIOLOGY & DIALYSIS ONLY) IV PRN (06:00)
[2022-11-03] MEDS ORDERED: SODIUM CHLORIDE 0.9% 1000ML IV PRN (06:00)
[2022-11-03] MEDS: LANTHANUM CARBONATE 500MG CHEW TABLET PO SCH ×3 (07:58→17:48)
[2022-11-03] MEDS: TAMSULOSIN 0.4 MG CAP PO SCH (08:01)
[2022-11-03] MEDS: LEVOTHYROXINE 88MCG TABLET (0.088 MG) PO SCH (08:01)
[2022-11-03] MEDS: PANTOPRAZOLE 40MG TAB (PROTONIX) PO SCH (08:01)
[2022-11-03] MEDS: TORSEMIDE (DEMADEX) 50 MG PER 1/2 TAB PO SCH ×2 (08:01→17:00)
[2022-11-03 08:02] VITALS: BP 133/77
[2022-11-03] MEDS: LIDOCAINE 5% (LIDODERM) PATCH TD SCH ×2 (08:08→08:25)
[2022-11-03] MEDS: atenoloL 25 MG TAB PO SCH (08:10)
[2022-11-03] MEDS: allopurinoL 100 MG TAB PO SCH (08:12)
[2022-11-03] MEDS: APIXABAN 2.5 MG TAB (ELIQUIS) PO SCH ×2 (08:24→21:25)
[2022-11-03 17:45] VITALS: BP 97/53
[2022-11-03] MEDS: MIRALAX *UNIT DOSE* 17GM PACKET PO PRN (17:48)
[2022-11-04] VITALS (19 sets, daily range): BP systolic 128–186; BP diastolic 58–116; TEMP 97–98; O2SAT 88–100
[2022-11-04] MEDS: LEVOTHYROXINE 88MCG TABLET (0.088 MG) PO SCH (05:17)
[2022-11-04] MEDS: traMADol 50 MG TAB PO PRN ×2 (05:17→21:59)
[2022-11-04] MEDS: allopurinoL 100 MG TAB PO SCH (09:00)
[2022-11-04] MEDS ORDERED: ASPIRIN 81MG CHEW TABLET PO SCH (09:00)
[2022-11-04] MEDS: atenoloL 25 MG TAB PO SCH (09:00)
[2022-11-04] MEDS: APIXABAN 2.5 MG TAB (ELIQUIS) PO SCH ×2 (09:00→21:59)
[2022-11-04] MEDS: ATORVASTATIN 20 MG TAB PO SCH (09:00)
[2022-11-04] MEDS: TORSEMIDE (DEMADEX) 50 MG PER 1/2 TAB PO SCH ×2 (09:00→17:29)
[2022-11-04] MEDS: PANTOPRAZOLE 40MG TAB (PROTONIX) PO SCH (09:00)
[2022-11-04] MEDS: TAMSULOSIN 0.4 MG CAP PO SCH (09:00)
[2022-11-04 09:22] LABS: BASO # 0.1 10^3/uL (0.0-0.2); BASO % 1.3 % (0.0-1.0); EOS # 0.1 10^3/uL (0.0-0.5); EOS % 1.9 % (0.0-3.0); HEMATOCRIT 33.6 % (42.0-52.0); HEMOGLOBIN 10.7 g/dl (13.5-17.5); LYMPH # 0.7 10^3/uL (1.5-5.0); LYMPH % 18.5 % (24.0-44.0); MEAN CORPUSCULAR HEMOGLOBIN 30.4 pg (27.0-33.0); MEAN CORPUSCULAR HGB CONC 31.8 g/dl (32.0-36.5); MEAN CORPUSCULAR VOLUME 95.5 fl (80.0-96.0); MONO # 0.4 10^3/uL (0.0-0.8); MONO % 11.1 % (2.0-8.0); NEUTROPHILS # 2.5 10^3/uL (1.5-8.5); NEUTROPHILS % 66.7 % (36.0-66.0); PLATELET COUNT, AUTOMATED 179 10^3/uL (150-450); RED BLOOD COUNT 3.52 10^6/uL (4.30-6.10); WHITE BLOOD COUNT 3.8 10^3/uL (4.0-10.0)
[2022-11-04 09:34] LABS: INR 1.45; PROTHROMBIN TIME 17.2 SECONDS (12.5-14.5)
[2022-11-04 09:35] LABS: PARTIAL THROMBOPLASTIN TIME 36.3 SECONDS (24.8-34.2)
[2022-11-04] MEDS ORDERED: methylPREDNISolone 125MG 2ML VIAL IV ONE (09:40)
[2022-11-04] MEDS ORDERED: diphenhydrAMINE 50MG/ML VIAL IV ONE (09:40)
[2022-11-04] MEDS: LIDOCAINE 5% (LIDODERM) PATCH TD SCH ×2 (09:48)
[2022-11-04 09:52] LABS: CPK CREATINE PHOSPHOKINASE 26 U/L (46-171)
[2022-11-04 09:56] LABS: ALBUMIN 3.1 G/DL (3.2-5.2); ALKALINE PHOSPHATASE 66 U/L (46-116); ALT/SGPT 9 U/L (7.0-40); AST/SGOT < 8 U/L (<34); BILIRUBIN,DIRECT 0.2 MG/DL (<0.4); BILIRUBIN,TOTAL 0.5 MG/DL (0.3-1.2); BLOOD UREA NITROGEN 42 MG/DL (9-23); CALCIUM LEVEL 9.5 MG/DL (8.3-10.6); CARBON DIOXIDE LEVEL 29 MMOL/L (20-31); CHLORIDE LEVEL 94 MMOL/L (98-107); CHOLESTEROL LEVEL 135 MG/DL (<200); CHOLESTEROL RISK RATIO 4.75 (<5); CK-MB VALUE MASS < 1.0 NG/ML (<3.6); CREATININE FOR GFR 5.14 MG/DL (0.70-1.30); GLOMERULAR FILTRATION RATE 11.6 (>42); GLUCOSE, FASTING 162 MG/DL (74-106); HDL CHOLESTEROL 28.4 MG/DL (>40); LDL CHOLESTEROL 84.8 MG/DL (<100); MB/CK RELATIVE INDEX 3.84 (< OR =4); NON-HDL-C 106.6 MG/DL; POTASSIUM SERUM 3.8 MMOL/L (3.5-5.1); SODIUM LEVEL 136 MMOL/L (136-145); TOTAL PROTEIN 6.5 G/DL (5.7-8.2); TRIGLYCERIDES LEVEL 109 MG/DL (<150)
[2022-11-04] MEDS ORDERED: FAMOTIDINE IV BAG 20 MG in IV 1 EA IV ONE (10:00)
[2022-11-04] MEDS: LANTHANUM CARBONATE 500MG CHEW TABLET PO SCH ×3 (10:41→17:29)
[2022-11-04 11:06] LABS: CK-MB VALUE MASS < 1.0 NG/ML (<3.6)
[2022-11-04 11:07] LABS: CPK CREATINE PHOSPHOKINASE 27 U/L (46-171)
[2022-11-04] MEDS ORDERED: ISOVUE-370 76% 100ML VIAL As Ordered ONE (11:39)
[2022-11-04] MEDS: MOM 30ML SUSPENSION UDC PO PRN (18:21)
[2022-11-04] MEDS: SENOKOT S TAB PO PRN (18:21)
[2022-11-05 04:00] VITALS: BP 170/96; TEMP 98; O2SAT 94
[2022-11-05] MEDS: LEVOTHYROXINE 88MCG TABLET (0.088 MG) PO SCH (05:33)
[2022-11-05] MEDS ORDERED: SODIUM CHLORIDE 0.9% 1000ML IV PRN (06:00)
[2022-11-05] MEDS: LANTHANUM CARBONATE 500MG CHEW TABLET PO SCH ×3 (06:08→18:00)
[2022-11-05] MEDS: TAMSULOSIN 0.4 MG CAP PO SCH (06:08)
[2022-11-05] MEDS: TORSEMIDE (DEMADEX) 50 MG PER 1/2 TAB PO SCH ×2 (06:08→16:12)
[2022-11-05] MEDS: ATORVASTATIN 20 MG TAB PO SCH (06:08)
[2022-11-05] MEDS: PANTOPRAZOLE 40MG TAB (PROTONIX) PO SCH (06:08)
[2022-11-05] MEDS: APIXABAN 2.5 MG TAB (ELIQUIS) PO SCH ×2 (06:08→20:13)
[2022-11-05] MEDS: traMADol 50 MG TAB PO PRN ×2 (07:32→16:13)
[2022-11-05 08:00] VITALS: BP 152/90; TEMP 98.3; O2SAT 97
[2022-11-05] MEDS: LIDOCAINE 5% (LIDODERM) PATCH TD SCH ×2 (08:00)
[2022-11-05] MEDS: allopurinoL 100 MG TAB PO SCH (09:00)
[2022-11-05] MEDS: ONDANSETRON 4MG 2ML VIAL IV PRN (13:08)
[2022-11-05 13:15] VITALS: BP 126/92; TEMP 96.9; O2SAT 96
[2022-11-05] MEDS: atenoloL 25 MG TAB PO SCH (13:30)
[2022-11-05 13:40] VITALS: BP 118/67
[2022-11-05] MEDS ORDERED: LIDOCAINE 2% 5ML JELLY UROJET TOP STA (15:42)
[2022-11-05 17:21] VITALS: BP 123/57; TEMP 97.5; O2SAT 96
[2022-11-05] MEDS: SENOKOT S TAB PO PRN (20:14)
[2022-11-05 21:10] VITALS: BP 98/60; TEMP 97.3; O2SAT 100
[2022-11-06 03:15] VITALS: BP 140/70
[2022-11-06] MEDS: LEVOTHYROXINE 88MCG TABLET (0.088 MG) PO SCH (05:23)
[2022-11-06 05:50] VITALS: BP 134/95; TEMP 97.5; O2SAT 98
[2022-11-06] MEDS: TORSEMIDE (DEMADEX) 50 MG PER 1/2 TAB PO SCH ×2 (09:00→17:00)
[2022-11-06] MEDS: atenoloL 25 MG TAB PO SCH (09:00)
[2022-11-06] MEDS: PANTOPRAZOLE 40MG TAB (PROTONIX) PO SCH (09:20)
[2022-11-06] MEDS: MOM 30ML SUSPENSION UDC PO PRN (09:20)
[2022-11-06] MEDS: LANTHANUM CARBONATE 500MG CHEW TABLET PO SCH ×3 (09:20→18:00)
[2022-11-06] MEDS: ATORVASTATIN 20 MG TAB PO SCH (09:20)
[2022-11-06] MEDS: APIXABAN 2.5 MG TAB (ELIQUIS) PO SCH ×2 (09:21→21:23)
[2022-11-06] MEDS: allopurinoL 100 MG TAB PO SCH (09:21)
[2022-11-06] MEDS: SENOKOT S TAB PO PRN (09:21)
[2022-11-06] MEDS: TAMSULOSIN 0.4 MG CAP PO SCH (09:21)
[2022-11-06] MEDS: LIDOCAINE 5% (LIDODERM) PATCH TD SCH ×2 (09:21→09:22)
[2022-11-06 14:00] VITALS: BP 117/59; TEMP 97.7; O2SAT 94
[2022-11-06 14:07] LABS: CK-MB VALUE MASS < 1.0 NG/ML (<3.6)
[2022-11-06 14:09] LABS: CPK CREATINE PHOSPHOKINASE 32 U/L (46-171); MB/CK RELATIVE INDEX 3.12 (< OR =4)
[2022-11-06] MEDS: ACETAMINOPHEN TAB 650MG DOSE (2X325MG) PO PRN (15:40)
[2022-11-06 19:39] LABS: CPK CREATINE PHOSPHOKINASE 23 U/L (46-171)
[2022-11-06 19:40] LABS: CK-MB VALUE MASS < 1.0 NG/ML (<3.6); MB/CK RELATIVE INDEX 4.34 (< OR =4)
[2022-11-06 20:30] VITALS: BP 108/50; TEMP 97.5; O2SAT 100
[2022-11-06] MEDS: traMADol 50 MG TAB PO PRN (23:23)
[2022-11-07] MEDS: ACETAMINOPHEN TAB 650MG DOSE (2X325MG) PO PRN ×2 (04:26→18:14)
[2022-11-07 04:30] VITALS: BP 158/80; TEMP 97.5; O2SAT 99
[2022-11-07] MEDS: LANTHANUM CARBONATE 500MG CHEW TABLET PO SCH ×3 (05:03→18:00)
[2022-11-07] MEDS: LIDOCAINE 5% (LIDODERM) PATCH TD SCH ×2 (05:03)
[2022-11-07] MEDS: allopurinoL 100 MG TAB PO SCH (05:04)
[2022-11-07] MEDS: TAMSULOSIN 0.4 MG CAP PO SCH (05:04)
[2022-11-07] MEDS: LEVOTHYROXINE 88MCG TABLET (0.088 MG) PO SCH (05:04)
[2022-11-07] MEDS: PANTOPRAZOLE 40MG TAB (PROTONIX) PO SCH (05:04)
[2022-11-07] MEDS: APIXABAN 2.5 MG TAB (ELIQUIS) PO SCH ×2 (05:04→22:14)
[2022-11-07] MEDS: ATORVASTATIN 20 MG TAB PO SCH (05:04)
[2022-11-07] MEDS: atenoloL 25 MG TAB PO SCH (05:07)
[2022-11-07] MEDS: TORSEMIDE (DEMADEX) 50 MG PER 1/2 TAB PO SCH ×2 (05:09→18:14)
[2022-11-07] MEDS ORDERED: HEPARIN 1,000UNITS/ML 10ML VIAL (FOR RADIOLOGY & DIALYSIS ONLY) IV PRN (08:20)
[2022-11-07] MEDS ORDERED: SODIUM CHLORIDE 0.9% 1000ML IV PRN (08:20)
[2022-11-07] MEDS ORDERED: HEPARIN 1,000UNITS/ML 10ML VIAL (FOR RADIOLOGY & DIALYSIS ONLY) XX SCH (08:20)
[2022-11-07 12:16] VITALS: BP 124/78
[2022-11-07] MEDS: traMADol 50 MG TAB PO PRN (12:16)
[2022-11-07] MEDS: ONDANSETRON 4MG 2ML VIAL IV PRN (12:53)
[2022-11-07 14:00] VITALS: BP 123/75; TEMP 98.8; O2SAT 93
[2022-11-07 21:00] VITALS: BP 100/46; TEMP 97.9; O2SAT 97
[2022-11-08] MEDS: LEVOTHYROXINE 88MCG TABLET (0.088 MG) PO SCH (05:24)
[2022-11-08 05:30] VITALS: BP 137/69; TEMP 97.7; O2SAT 97
[2022-11-08] MEDS: LIDOCAINE 5% (LIDODERM) PATCH TD SCH ×2 (09:33→09:34)
[2022-11-08] MEDS: ATORVASTATIN 20 MG TAB PO SCH (09:34)
[2022-11-08] MEDS: TAMSULOSIN 0.4 MG CAP PO SCH (09:34)
[2022-11-08] MEDS: SENOKOT S TAB PO PRN (09:35)
[2022-11-08] MEDS: allopurinoL 100 MG TAB PO SCH (09:35)
[2022-11-08] MEDS: TORSEMIDE (DEMADEX) 50 MG PER 1/2 TAB PO SCH ×2 (09:35→16:31)
[2022-11-08] MEDS: atenoloL 25 MG TAB PO SCH (09:35)
[2022-11-08] MEDS: APIXABAN 2.5 MG TAB (ELIQUIS) PO SCH ×2 (09:35→21:08)
[2022-11-08] MEDS: PANTOPRAZOLE 40MG TAB (PROTONIX) PO SCH (09:35)
[2022-11-08] MEDS: LANTHANUM CARBONATE 500MG CHEW TABLET PO SCH ×3 (09:36→16:31)
[2022-11-08] MEDS: ACETAMINOPHEN TAB 650MG DOSE (2X325MG) PO PRN ×2 (09:40→16:30)
[2022-11-08 14:00] VITALS: BP 138/73; TEMP 97.7; O2SAT 99
[2022-11-08 21:31] VITALS: BP 141/73; TEMP 97.7; O2SAT 98
[2022-11-08] MEDS: traMADol 50 MG TAB PO PRN (23:29)
[2022-11-09] MEDS: LEVOTHYROXINE 88MCG TABLET (0.088 MG) PO SCH (06:00)
[2022-11-09 06:03] VITALS: BP 143/73; TEMP 97.9; O2SAT 98
[2022-11-09] MEDS: LIDOCAINE 5% (LIDODERM) PATCH TD SCH ×2 (08:16→08:17)
[2022-11-09] MEDS: ATORVASTATIN 20 MG TAB PO SCH (08:17)
[2022-11-09] MEDS: TAMSULOSIN 0.4 MG CAP PO SCH (08:17)
[2022-11-09] MEDS: allopurinoL 100 MG TAB PO SCH (08:17)
[2022-11-09] MEDS: PANTOPRAZOLE 40MG TAB (PROTONIX) PO SCH (08:17)
[2022-11-09] MEDS: LANTHANUM CARBONATE 500MG CHEW TABLET PO SCH ×3 (08:18→17:15)
[2022-11-09] MEDS: TORSEMIDE (DEMADEX) 50 MG PER 1/2 TAB PO SCH ×2 (08:18→17:14)
[2022-11-09] MEDS: atenoloL 25 MG TAB PO SCH (08:18)
[2022-11-09] MEDS: APIXABAN 2.5 MG TAB (ELIQUIS) PO SCH ×2 (08:18→20:34)
[2022-11-09] MEDS: MIRALAX *UNIT DOSE* 17GM PACKET PO PRN (08:20)
[2022-11-09 14:00] VITALS: BP 127/69; TEMP 97.9; O2SAT 99
[2022-11-09] MEDS: ACETAMINOPHEN TAB 650MG DOSE (2X325MG) PO PRN (15:41)
[2022-11-09 21:29] VITALS: BP 130/78; TEMP 97.7; O2SAT 100
[2022-11-09] MEDS: SENOKOT S TAB PO PRN (21:37)
[2022-11-09] MEDS: traMADol 50 MG TAB PO PRN (21:38)
[2022-11-10] MEDS: ACETAMINOPHEN TAB 650MG DOSE (2X325MG) PO PRN ×3 (01:30→19:43)
[2022-11-10] MEDS ORDERED: HEPARIN 1,000UNITS/ML 10ML VIAL (FOR RADIOLOGY & DIALYSIS ONLY) IV PRN (05:25)
[2022-11-10] MEDS ORDERED: HEPARIN 1,000UNITS/ML 10ML VIAL (FOR RADIOLOGY & DIALYSIS ONLY) XX SCH (05:25)
[2022-11-10] MEDS ORDERED: SODIUM CHLORIDE 0.9% 1000ML IV PRN (05:25)
[2022-11-10] MEDS: LEVOTHYROXINE 88MCG TABLET (0.088 MG) PO SCH (05:57)
[2022-11-10] MEDS: LIDOCAINE 5% (LIDODERM) PATCH TD SCH ×2 (05:58)
[2022-11-10 06:05] LABS: HEMATOCRIT 28.5 % (42.0-52.0); HEMOGLOBIN 9.1 g/dl (13.5-17.5); MEAN CORPUSCULAR HEMOGLOBIN 29.6 pg (27.0-33.0); MEAN CORPUSCULAR HGB CONC 31.9 g/dl (32.0-36.5); MEAN CORPUSCULAR VOLUME 92.8 fl (80.0-96.0); PLATELET COUNT, AUTOMATED 171 10^3/uL (150-450); RED BLOOD COUNT 3.07 10^6/uL (4.30-6.10); WHITE BLOOD COUNT 4.9 10^3/uL (4.0-10.0)
[2022-11-10 06:10] VITALS: BP 151/65; TEMP 97.9; O2SAT 97
[2022-11-10 06:39] LABS: ALBUMIN 2.8 G/DL (3.2-5.2); CALCIUM LEVEL 9.3 MG/DL (8.3-10.6); CREATININE FOR GFR 7.47 MG/DL (0.70-1.30); GLOMERULAR FILTRATION RATE 7.5 (>42); PHOSPHORUS LEVEL 5.4 MG/DL (2.4-5.1); POTASSIUM SERUM 4.6 MMOL/L (3.5-5.1)
[2022-11-10] MEDS: LANTHANUM CARBONATE 500MG CHEW TABLET PO SCH ×4 (07:44→18:00)
[2022-11-10] MEDS: traMADol 50 MG TAB PO PRN ×3 (07:50→22:20)
[2022-11-10] MEDS ORDERED: MAALOX 30 ML SUSP *UDC PO ONE (08:00)
[2022-11-10] MEDS: DARBEPOETIN 100MCG/0.5ML *DIALYSIS* SYRINGE IV SCH (11:52)
[2022-11-10] MEDS: MOM 30ML SUSPENSION UDC PO PRN (12:38)
[2022-11-10] MEDS: atenoloL 25 MG TAB PO SCH (14:01)
[2022-11-10] MEDS: TORSEMIDE (DEMADEX) 50 MG PER 1/2 TAB PO SCH ×2 (14:01→18:11)
[2022-11-10] MEDS: TAMSULOSIN 0.4 MG CAP PO SCH (14:01)
[2022-11-10] MEDS: allopurinoL 100 MG TAB PO SCH (14:02)
[2022-11-10] MEDS: APIXABAN 2.5 MG TAB (ELIQUIS) PO SCH (14:02)
[2022-11-10] MEDS: PANTOPRAZOLE 40MG TAB (PROTONIX) PO SCH ×2 (14:02→22:19)
[2022-11-10] MEDS: ATORVASTATIN 20 MG TAB PO SCH (15:31)
[2022-11-10] MEDS ORDERED: PANTOPRAZOLE 40MG TAB (PROTONIX) PO SCH (16:55)
[2022-11-10] MEDS ORDERED: ASPIRIN 81MG ENTERIC TABLET PO ONE (17:00)
[2022-11-10 18:09] VITALS: BP 139/62
[2022-11-10] MEDS: APIXABAN 5 MG TAB (ELIQUIS) PO SCH (22:19)
[2022-11-11 05:55] VITALS: BP 144/67; TEMP 97.9; O2SAT 97
[2022-11-11] MEDS: ACETAMINOPHEN TAB 650MG DOSE (2X325MG) PO PRN (06:16)
[2022-11-11] MEDS: LEVOTHYROXINE 88MCG TABLET (0.088 MG) PO SCH (06:17)
[2022-11-11] MEDS: LANTHANUM CARBONATE 500MG CHEW TABLET PO SCH ×3 (08:00→16:12)
[2022-11-11] MEDS ORDERED: MAALOX 30 ML SUSP *UDC PO PRN (09:55)
[2022-11-11] MEDS: ONDANSETRON 4MG ORAL DISINTEGRATING TAB PO PRN ×2 (10:27→20:41)
[2022-11-11] MEDS: ASPIRIN 81MG ENTERIC TABLET PO SCH (10:29)
[2022-11-11] MEDS: ATORVASTATIN 20 MG TAB PO SCH (10:29)
[2022-11-11] MEDS: allopurinoL 100 MG TAB PO SCH (10:29)
[2022-11-11] MEDS: TAMSULOSIN 0.4 MG CAP PO SCH (10:29)
[2022-11-11] MEDS: APIXABAN 5 MG TAB (ELIQUIS) PO SCH ×2 (10:29→20:40)
[2022-11-11] MEDS: atenoloL 25 MG TAB PO SCH (10:30)
[2022-11-11] MEDS: LIDOCAINE 5% (LIDODERM) PATCH TD SCH ×2 (10:31)
[2022-11-11] MEDS: TORSEMIDE (DEMADEX) 50 MG PER 1/2 TAB PO SCH ×2 (10:34→16:12)
[2022-11-11] MEDS: PANTOPRAZOLE 40MG TAB (PROTONIX) PO SCH ×2 (10:35→20:41)
[2022-11-11] MEDS: MOM 30ML SUSPENSION UDC PO PRN (16:11)
[2022-11-11] MEDS: MIRALAX *UNIT DOSE* 17GM PACKET PO PRN (16:11)
[2022-11-11 16:14] VITALS: BP 104/51
[2022-11-11] MEDS: traMADol 50 MG TAB PO PRN (20:41)
[2022-11-12] MEDS ORDERED: SODIUM CHLORIDE 0.9% 1000ML IV PRN (05:20)
[2022-11-12] MEDS ORDERED: HEPARIN 1,000UNITS/ML 10ML VIAL (FOR RADIOLOGY & DIALYSIS ONLY) XX SCH (05:20)
[2022-11-12] MEDS ORDERED: HEPARIN 1,000UNITS/ML 10ML VIAL (FOR RADIOLOGY & DIALYSIS ONLY) IV PRN (05:20)
[2022-11-12 06:00] VITALS: BP 157/70; TEMP 97.7; O2SAT 99
[2022-11-12] MEDS: atenoloL 25 MG TAB PO SCH (06:37)
[2022-11-12] MEDS: traMADol 50 MG TAB PO PRN ×3 (06:38→20:10)
[2022-11-12] MEDS: ASPIRIN 81MG ENTERIC TABLET PO SCH (06:38)
[2022-11-12] MEDS: TAMSULOSIN 0.4 MG CAP PO SCH (06:38)
[2022-11-12] MEDS: LEVOTHYROXINE 88MCG TABLET (0.088 MG) PO SCH (06:38)
[2022-11-12] MEDS: allopurinoL 100 MG TAB PO SCH (06:38)
[2022-11-12] MEDS: PANTOPRAZOLE 40MG TAB (PROTONIX) PO SCH ×2 (06:39→20:08)
[2022-11-12] MEDS: TORSEMIDE (DEMADEX) 50 MG PER 1/2 TAB PO SCH ×2 (06:39→17:00)
[2022-11-12] MEDS: APIXABAN 5 MG TAB (ELIQUIS) PO SCH ×2 (06:39→20:08)
[2022-11-12] MEDS: ATORVASTATIN 20 MG TAB PO SCH (06:39)
[2022-11-12] MEDS: LIDOCAINE 5% (LIDODERM) PATCH TD SCH ×2 (06:39→06:40)
[2022-11-12] MEDS: LANTHANUM CARBONATE 500MG CHEW TABLET PO SCH ×3 (08:00→17:54)
[2022-11-12] MEDS: ONDANSETRON 4MG ORAL DISINTEGRATING TAB PO PRN (20:09)
[2022-11-13] MEDS: ACETAMINOPHEN TAB 650MG DOSE (2X325MG) PO PRN ×3 (00:24→20:48)
[2022-11-13 06:00] VITALS: BP 132/59; TEMP 97.7; O2SAT 97
[2022-11-13] MEDS: LEVOTHYROXINE 88MCG TABLET (0.088 MG) PO SCH (06:12)
[2022-11-13] MEDS: traMADol 50 MG TAB PO PRN ×3 (06:13→23:54)
[2022-11-13] MEDS: PANTOPRAZOLE 40MG TAB (PROTONIX) PO SCH ×2 (08:21→20:44)
[2022-11-13] MEDS: APIXABAN 5 MG TAB (ELIQUIS) PO SCH ×2 (08:21→20:45)
[2022-11-13] MEDS: ASPIRIN 81MG ENTERIC TABLET PO SCH (08:21)
[2022-11-13] MEDS: TORSEMIDE (DEMADEX) 50 MG PER 1/2 TAB PO SCH ×2 (08:21→16:34)
[2022-11-13] MEDS: TAMSULOSIN 0.4 MG CAP PO SCH (08:21)
[2022-11-13] MEDS: atenoloL 25 MG TAB PO SCH (08:22)
[2022-11-13] MEDS: ATORVASTATIN 20 MG TAB PO SCH (08:22)
[2022-11-13] MEDS: allopurinoL 100 MG TAB PO SCH (08:22)
[2022-11-13] MEDS: LANTHANUM CARBONATE 500MG CHEW TABLET PO SCH ×3 (08:22→17:55)
[2022-11-13] MEDS: LIDOCAINE 5% (LIDODERM) PATCH TD SCH ×2 (08:23)
[2022-11-13 16:35] VITALS: BP 126/73
[2022-11-13] MEDS: ONDANSETRON 4MG ORAL DISINTEGRATING TAB PO PRN (20:43)
[2022-11-13] MEDS ORDERED: SIMETHICONE 80MG CHEW TAB PO ONE (21:45)
[2022-11-14 05:25] VITALS: BP 127/74; TEMP 97.9; O2SAT 95
[2022-11-14] MEDS: LEVOTHYROXINE 88MCG TABLET (0.088 MG) PO SCH (06:00)
[2022-11-14] MEDS ORDERED: SODIUM CHLORIDE 0.9% 1000ML IV PRN (06:00)
[2022-11-14] MEDS ORDERED: HEPARIN 1,000UNITS/ML 10ML VIAL (FOR RADIOLOGY & DIALYSIS ONLY) IV PRN (06:00)
[2022-11-14] MEDS: traMADol 50 MG TAB PO PRN ×3 (06:53→21:43)
[2022-11-14] MEDS: LANTHANUM CARBONATE 500MG CHEW TABLET PO SCH ×3 (07:37→17:00)
[2022-11-14] MEDS: ASPIRIN 81MG ENTERIC TABLET PO SCH ×2 (07:37→07:57)
[2022-11-14] MEDS: TORSEMIDE (DEMADEX) 50 MG PER 1/2 TAB PO SCH ×2 (07:37→16:58)
[2022-11-14] MEDS: APIXABAN 5 MG TAB (ELIQUIS) PO SCH ×3 (07:37→21:14)
[2022-11-14] MEDS: allopurinoL 100 MG TAB PO SCH ×2 (07:38→07:56)
[2022-11-14] MEDS: PANTOPRAZOLE 40MG TAB (PROTONIX) PO SCH ×2 (07:38→21:14)
[2022-11-14] MEDS: TAMSULOSIN 0.4 MG CAP PO SCH ×2 (07:38→07:56)
[2022-11-14] MEDS: atenoloL 25 MG TAB PO SCH (07:38)
[2022-11-14] MEDS: ATORVASTATIN 20 MG TAB PO SCH ×2 (07:38→07:57)
[2022-11-14] MEDS: LIDOCAINE 5% (LIDODERM) PATCH TD SCH ×2 (07:38)
[2022-11-14] MEDS: ACETAMINOPHEN TAB 650MG DOSE (2X325MG) PO PRN (10:21)
[2022-11-14 14:25] VITALS: BP 100/62
[2022-11-15 05:43] VITALS: BP 142/58; TEMP 97.5; O2SAT 97
[2022-11-15] MEDS: ACETAMINOPHEN TAB 650MG DOSE (2X325MG) PO PRN (06:45)
[2022-11-15] MEDS: atenoloL 25 MG TAB PO SCH (09:00)
[2022-11-15] MEDS: TORSEMIDE (DEMADEX) 50 MG PER 1/2 TAB PO SCH ×2 (09:00→16:47)
[2022-11-15 09:54] VITALS: BP 94/57
[2022-11-15] MEDS: ASPIRIN 81MG ENTERIC TABLET PO SCH (10:06)
[2022-11-15] MEDS: ATORVASTATIN 20 MG TAB PO SCH (10:06)
[2022-11-15] MEDS: TAMSULOSIN 0.4 MG CAP PO SCH (10:06)
[2022-11-15] MEDS: allopurinoL 100 MG TAB PO SCH (10:07)
[2022-11-15] MEDS: PANTOPRAZOLE 40MG TAB (PROTONIX) PO SCH ×2 (10:07→21:13)
[2022-11-15] MEDS: LANTHANUM CARBONATE 500MG CHEW TABLET PO SCH ×3 (10:07→18:22)
[2022-11-15] MEDS: LEVOTHYROXINE 88MCG TABLET (0.088 MG) PO SCH (10:07)
[2022-11-15] MEDS: APIXABAN 5 MG TAB (ELIQUIS) PO SCH ×2 (10:08→21:13)
[2022-11-15] MEDS: LIDOCAINE 5% (LIDODERM) PATCH TD SCH ×2 (10:09)
[2022-11-15 10:54] LABS: C REACTIVE PROTEIN QUANTITATIV 11.3 MG/DL (<1.0)
[2022-11-15 11:01] LABS: PROCALCITONIN 0.43 ng/ml
[2022-11-15] MEDS: ONDANSETRON 4MG ORAL DISINTEGRATING TAB PO PRN (12:03)
[2022-11-15] MEDS: traMADol 50 MG TAB PO PRN ×2 (12:04→21:13)
[2022-11-15] MEDS: FOSFOMYCIN TROMETHAMINE 3 GM POWDER PACKET (MONUROL) PO ONE ×2 (12:23→18:22)
[2022-11-15 16:47] VITALS: BP 108/50
[2022-11-16] MEDS: ACETAMINOPHEN TAB 650MG DOSE (2X325MG) PO PRN ×2 (01:33→13:50)
[2022-11-16] MEDS: LEVOTHYROXINE 88MCG TABLET (0.088 MG) PO SCH (05:26)
[2022-11-16 06:00] VITALS: BP 152/60; TEMP 97.7; O2SAT 95
[2022-11-16] MEDS: atenoloL 25 MG TAB PO SCH (09:00)
[2022-11-16] MEDS: TORSEMIDE (DEMADEX) 50 MG PER 1/2 TAB PO SCH ×2 (09:00→17:39)
[2022-11-16] MEDS: LIDOCAINE 5% (LIDODERM) PATCH TD SCH ×2 (09:08)
[2022-11-16] MEDS: TAMSULOSIN 0.4 MG CAP PO SCH (09:08)
[2022-11-16] MEDS: ATORVASTATIN 20 MG TAB PO SCH (09:08)
[2022-11-16] MEDS: allopurinoL 100 MG TAB PO SCH (09:09)
[2022-11-16] MEDS: APIXABAN 5 MG TAB (ELIQUIS) PO SCH ×2 (09:09→20:37)
[2022-11-16] MEDS: LANTHANUM CARBONATE 500MG CHEW TABLET PO SCH ×3 (09:09→17:39)
[2022-11-16] MEDS: SENOKOT S TAB PO PRN (09:09)
[2022-11-16] MEDS: ASPIRIN 81MG ENTERIC TABLET PO SCH (09:09)
[2022-11-16] MEDS: PANTOPRAZOLE 40MG TAB (PROTONIX) PO SCH ×2 (09:09→20:38)
[2022-11-16] MEDS: traMADol 50 MG TAB PO PRN ×2 (10:25→22:15)
[2022-11-16 17:35] VITALS: BP 145/55
[2022-11-17] MEDS: ASPIRIN 81MG ENTERIC TABLET PO SCH (05:09)
[2022-11-17] MEDS: allopurinoL 100 MG TAB PO SCH (05:09)
[2022-11-17] MEDS: APIXABAN 5 MG TAB (ELIQUIS) PO SCH ×2 (05:09→20:42)
[2022-11-17] MEDS: PANTOPRAZOLE 40MG TAB (PROTONIX) PO SCH ×2 (05:09→20:42)
[2022-11-17] MEDS: atenoloL 25 MG TAB PO SCH (05:10)
[2022-11-17] MEDS: TAMSULOSIN 0.4 MG CAP PO SCH (05:10)
[2022-11-17] MEDS: TORSEMIDE (DEMADEX) 50 MG PER 1/2 TAB PO SCH ×2 (05:10→16:48)
[2022-11-17] MEDS: LEVOTHYROXINE 88MCG TABLET (0.088 MG) PO SCH (05:10)
[2022-11-17] MEDS: ATORVASTATIN 20 MG TAB PO SCH (05:11)
[2022-11-17] MEDS: LANTHANUM CARBONATE 500MG CHEW TABLET PO SCH ×3 (05:11→17:26)
[2022-11-17] MEDS: LIDOCAINE 5% (LIDODERM) PATCH TD SCH ×2 (05:11→05:12)
[2022-11-17 06:00] VITALS: BP 152/71; TEMP 97.3; O2SAT 93
[2022-11-17] MEDS ORDERED: HEPARIN 1,000UNITS/ML 10ML VIAL (FOR RADIOLOGY & DIALYSIS ONLY) XX SCH (06:00)
[2022-11-17] MEDS ORDERED: SODIUM CHLORIDE 0.9% 1000ML IV PRN (06:00)
[2022-11-17] MEDS ORDERED: HEPARIN 1,000UNITS/ML 10ML VIAL (FOR RADIOLOGY & DIALYSIS ONLY) IV PRN (06:00)
[2022-11-17 07:32] LABS: BASO % 0.4 % (0.0-1.0); EOS # 0.1 10^3/uL (0.0-0.5); EOS % 0.9 % (0.0-3.0); HEMATOCRIT 30.9 % (42.0-52.0); HEMOGLOBIN 9.7 g/dl (13.5-17.5); LYMPH # 0.5 10^3/uL (1.5-5.0); LYMPH % 7.5 % (24.0-44.0); MEAN CORPUSCULAR HEMOGLOBIN 29.4 pg (27.0-33.0); MEAN CORPUSCULAR HGB CONC 31.4 g/dl (32.0-36.5); MEAN CORPUSCULAR VOLUME 93.6 fl (80.0-96.0); MONO # 0.6 10^3/uL (0.0-0.8); MONO % 9.1 % (2.0-8.0); NEUTROPHILS # 5.4 10^3/uL (1.5-8.5); NEUTROPHILS % 81.2 % (36.0-66.0); PLATELET COUNT, AUTOMATED 206 10^3/uL (150-450); WHITE BLOOD COUNT 6.7 10^3/uL (4.0-10.0)
[2022-11-17] MEDS: traMADol 50 MG TAB PO PRN ×4 (07:43→23:25)
[2022-11-17 07:57] LABS: CALCIUM LEVEL 8.9 MG/DL (8.3-10.6); CREATININE FOR GFR 6.82 MG/DL (0.70-1.30); GLOMERULAR FILTRATION RATE 8.4 (>42); MAGNESIUM LEVEL 1.7 MG/DL (1.8-2.4); POTASSIUM SERUM 4.4 MMOL/L (3.5-5.1)
[2022-11-17] MEDS: DARBEPOETIN 100MCG/0.5ML *DIALYSIS* SYRINGE IV SCH (08:34)
[2022-11-17] MEDS ORDERED: MAGNESIUM OXIDE 400MG TAB (MAG-OX) PO ONE (08:35)
[2022-11-17] MEDS: ACETAMINOPHEN TAB 650MG DOSE (2X325MG) PO PRN ×2 (09:44→20:44)
[2022-11-17] MEDS: ONDANSETRON 4MG ORAL DISINTEGRATING TAB PO PRN (09:45)
[2022-11-17 16:50] VITALS: BP 143/75
[2022-11-18 06:00] VITALS: BP 143/74; TEMP 97.7; O2SAT 98
[2022-11-18] MEDS: LEVOTHYROXINE 88MCG TABLET (0.088 MG) PO SCH (06:29)
[2022-11-18] MEDS: ACETAMINOPHEN TAB 650MG DOSE (2X325MG) PO PRN ×3 (06:30→16:13)
[2022-11-18] MEDS: atenoloL 25 MG TAB PO SCH (09:00)
[2022-11-18] MEDS: TORSEMIDE (DEMADEX) 50 MG PER 1/2 TAB PO SCH ×2 (09:00→16:14)
[2022-11-18] MEDS: ASPIRIN 81MG ENTERIC TABLET PO SCH (09:57)
[2022-11-18] MEDS: ATORVASTATIN 20 MG TAB PO SCH (09:57)
[2022-11-18] MEDS: MOM 30ML SUSPENSION UDC PO PRN (09:57)
[2022-11-18] MEDS: TAMSULOSIN 0.4 MG CAP PO SCH (09:57)
[2022-11-18] MEDS: APIXABAN 5 MG TAB (ELIQUIS) PO SCH ×2 (09:59→20:39)
[2022-11-18] MEDS: LANTHANUM CARBONATE 500MG CHEW TABLET PO SCH ×3 (09:59→16:46)
[2022-11-18] MEDS: PANTOPRAZOLE 40MG TAB (PROTONIX) PO SCH ×2 (09:59→20:39)
[2022-11-18] MEDS: allopurinoL 100 MG TAB PO SCH (09:59)
[2022-11-18] MEDS: LIDOCAINE 5% (LIDODERM) PATCH TD SCH ×2 (10:44)
[2022-11-18] MEDS: traMADol 50 MG TAB PO PRN ×2 (12:11→20:44)
[2022-11-18 16:14] VITALS: BP 126/62
[2022-11-18] MEDS: SENOKOT S TAB PO PRN (20:39)
[2022-11-19] MEDS: ACETAMINOPHEN TAB 650MG DOSE (2X325MG) PO PRN (03:20)
[2022-11-19 06:00] VITALS: BP 151/71; TEMP 98.1; O2SAT 97
[2022-11-19] MEDS ORDERED: SODIUM CHLORIDE 0.9% 1000ML IV PRN (06:00)
[2022-11-19] MEDS ORDERED: HEPARIN 1,000UNITS/ML 10ML VIAL (FOR RADIOLOGY & DIALYSIS ONLY) XX SCH (06:00)
[2022-11-19] MEDS ORDERED: HEPARIN 1,000UNITS/ML 10ML VIAL (FOR RADIOLOGY & DIALYSIS ONLY) IV PRN (06:00)
[2022-11-19] MEDS: LEVOTHYROXINE 88MCG TABLET (0.088 MG) PO SCH (06:14)
[2022-11-19] MEDS: TORSEMIDE (DEMADEX) 50 MG PER 1/2 TAB PO SCH ×2 (06:15→18:01)
[2022-11-19] MEDS: ATORVASTATIN 20 MG TAB PO SCH (06:16)
[2022-11-19] MEDS: TAMSULOSIN 0.4 MG CAP PO SCH (06:16)
[2022-11-19] MEDS: allopurinoL 100 MG TAB PO SCH (06:16)
[2022-11-19] MEDS: ASPIRIN 81MG ENTERIC TABLET PO SCH (06:16)
[2022-11-19] MEDS: APIXABAN 5 MG TAB (ELIQUIS) PO SCH ×2 (06:16→20:11)
[2022-11-19] MEDS: PANTOPRAZOLE 40MG TAB (PROTONIX) PO SCH ×2 (06:16→20:11)
[2022-11-19] MEDS: LIDOCAINE 5% (LIDODERM) PATCH TD SCH ×2 (06:17)
[2022-11-19] MEDS: atenoloL 25 MG TAB PO SCH (06:17)
[2022-11-19] MEDS: ONDANSETRON 4MG ORAL DISINTEGRATING TAB PO PRN (07:42)
[2022-11-19] MEDS: traMADol 50 MG TAB PO PRN ×2 (07:43→20:12)
[2022-11-19] MEDS: LANTHANUM CARBONATE 500MG CHEW TABLET PO SCH ×3 (08:00→18:00)
[2022-11-19 13:00] VITALS: BP 122/61
[2022-11-19] MEDS ORDERED: SIMETHICONE 80MG CHEW TAB PO PRN (13:30)
[2022-11-19 14:35] LABS: CK-MB VALUE MASS < 1.0 NG/ML (<3.6)
[2022-11-19 14:36] LABS: CPK CREATINE PHOSPHOKINASE < 15 U/L (46-171)
[2022-11-19 14:42] LABS: BLOOD UREA NITROGEN 19 MG/DL (9-23); CALCIUM LEVEL 8.9 MG/DL (8.3-10.6); CARBON DIOXIDE LEVEL 30 MMOL/L (20-31); CHLORIDE LEVEL 99 MMOL/L (98-107); CREATININE FOR GFR 2.59 MG/DL (0.70-1.30); GLOMERULAR FILTRATION RATE 25.6 (>42); GLUCOSE, FASTING 136 MG/DL (74-106); POTASSIUM SERUM 3.4 MMOL/L (3.5-5.1); SODIUM LEVEL 139 MMOL/L (136-145)
[2022-11-19] MEDS ORDERED: POTASSIUM CHLORIDE 10MEQ SR TABLET PO ONE (15:00)
[2022-11-19 15:26] LABS: CK-MB VALUE MASS < 1.0 NG/ML (<3.6)
[2022-11-19 15:28] LABS: CPK CREATINE PHOSPHOKINASE 17 U/L (46-171); MB/CK RELATIVE INDEX 5.88 (< OR =4)
[2022-11-19] MEDS: predniSONE 20 MG TAB PO SCH (15:28)
[2022-11-19] MEDS: MOM 30ML SUSPENSION UDC PO PRN (20:11)
[2022-11-19] MEDS: SENOKOT S TAB PO PRN (20:11)
[2022-11-20 06:03] VITALS: BP 152/81; TEMP 97.9; O2SAT 96
[2022-11-20] MEDS: LEVOTHYROXINE 88MCG TABLET (0.088 MG) PO SCH (06:13)
[2022-11-20] MEDS: MIRALAX *UNIT DOSE* 17GM PACKET PO PRN (06:13)
[2022-11-20 07:52] LABS: BASO % 0.2 % (0.0-1.0); EOS % 0.2 % (0.0-3.0); HEMATOCRIT 30.2 % (42.0-52.0); HEMOGLOBIN 9.3 g/dl (13.5-17.5); LYMPH # 0.4 10^3/uL (1.5-5.0); LYMPH % 7.5 % (24.0-44.0); MEAN CORPUSCULAR HEMOGLOBIN 29.3 pg (27.0-33.0); MEAN CORPUSCULAR HGB CONC 30.8 g/dl (32.0-36.5); MEAN CORPUSCULAR VOLUME 95.3 fl (80.0-96.0); MONO # 0.6 10^3/uL (0.0-0.8); MONO % 13.4 % (2.0-8.0); NEUTROPHILS # 3.7 10^3/uL (1.5-8.5); NEUTROPHILS % 77.4 % (36.0-66.0); PLATELET COUNT, AUTOMATED 206 10^3/uL (150-450); RED BLOOD COUNT 3.17 10^6/uL (4.30-6.10); WHITE BLOOD COUNT 4.8 10^3/uL (4.0-10.0)
[2022-11-20] MEDS: LANTHANUM CARBONATE 500MG CHEW TABLET PO SCH ×3 (08:00→18:00)
[2022-11-20 08:33] LABS: C REACTIVE PROTEIN QUANTITATIV 24.4 MG/DL (<1.0)
[2022-11-20 08:46] LABS: CALCIUM LEVEL 9.5 MG/DL (8.3-10.6); CREATININE FOR GFR 4.31 MG/DL (0.70-1.30); GLOMERULAR FILTRATION RATE 14.2 (>42); POTASSIUM SERUM 4.8 MMOL/L (3.5-5.1)
[2022-11-20] MEDS ORDERED: LevoFLOXacin 750 MG TABLET PO SCH (09:25)
[2022-11-20] MEDS ORDERED: VANCOMYCIN HCL 1,000 MG, VIAL MATE ADAPTER 1 EACH in D5W 250 ML IV SCH (09:25)
[2022-11-20 09:54] VITALS: BP 151/83
[2022-11-20] MEDS: ATORVASTATIN 20 MG TAB PO SCH (10:00)
[2022-11-20] MEDS ORDERED: methylPREDNISolone 125MG 2ML VIAL IV ONE (10:00)
[2022-11-20] MEDS: TAMSULOSIN 0.4 MG CAP PO SCH (10:00)
[2022-11-20] MEDS ORDERED: diphenhydrAMINE 50MG/ML VIAL IV ONE (10:00)
[2022-11-20] MEDS: allopurinoL 100 MG TAB PO SCH (10:01)
[2022-11-20] MEDS: ASPIRIN 81MG ENTERIC TABLET PO SCH (10:01)
[2022-11-20] MEDS: PANTOPRAZOLE 40MG TAB (PROTONIX) PO SCH ×2 (10:01→20:22)
[2022-11-20] MEDS: predniSONE 20 MG TAB PO SCH (10:01)
[2022-11-20] MEDS: APIXABAN 5 MG TAB (ELIQUIS) PO SCH ×2 (10:01→20:22)
[2022-11-20] MEDS: atenoloL 25 MG TAB PO SCH (10:02)
[2022-11-20] MEDS: traMADol 50 MG TAB PO PRN ×2 (10:03→22:19)
[2022-11-20] MEDS ORDERED: LevoFLOXacin 750 MG TABLET PO ONE (11:00)
[2022-11-20] MEDS ORDERED: FAMOTIDINE IV BAG 20 MG in IV 1 EA IV ONE (11:00)
[2022-11-20] MEDS ORDERED: VANCOMYCIN HCL 750 MG, VIAL MATE ADAPTER 1 EACH in D5W 250 ML IV ONE ×2 (11:00→12:00)
[2022-11-20] MEDS ORDERED: LIDOCAINE 2% 5ML JELLY UROJET TOP ONE (11:00)
[2022-11-20] MEDS ORDERED: ISOVUE-370 76% 100ML VIAL As Ordered ONE (11:07)
[2022-11-20] MEDS: LIDOCAINE 5% (LIDODERM) PATCH TD SCH ×2 (11:26→11:27)
[2022-11-20] MEDS: TORSEMIDE (DEMADEX) 50 MG PER 1/2 TAB PO SCH ×2 (11:46→18:16)
[2022-11-20] MEDS: ACETAMINOPHEN TAB 650MG DOSE (2X325MG) PO PRN ×2 (13:48→20:23)
[2022-11-20 18:09] VITALS: BP 131/62
[2022-11-21] MEDS: ONDANSETRON 4MG ORAL DISINTEGRATING TAB PO PRN (01:37)
[2022-11-21 05:45] VITALS: BP 170/80; TEMP 97.5; O2SAT 98
[2022-11-21] MEDS: LEVOTHYROXINE 88MCG TABLET (0.088 MG) PO SCH (06:02)
[2022-11-21] MEDS: ACETAMINOPHEN TAB 650MG DOSE (2X325MG) PO PRN ×2 (06:05→20:39)
[2022-11-21 06:39] LABS: BASO % 0.2 % (0.0-1.0); HEMATOCRIT 29.5 % (42.0-52.0); HEMOGLOBIN 9.2 g/dl (13.5-17.5); LYMPH # 0.3 10^3/uL (1.5-5.0); MEAN CORPUSCULAR HEMOGLOBIN 29.8 pg (27.0-33.0); MEAN CORPUSCULAR HGB CONC 31.2 g/dl (32.0-36.5); MEAN CORPUSCULAR VOLUME 95.5 fl (80.0-96.0); MONO # 0.5 10^3/uL (0.0-0.8); MONO % 8.9 % (2.0-8.0); NEUTROPHILS % 84.9 % (36.0-66.0); PLATELET COUNT, AUTOMATED 214 10^3/uL (150-450); RED BLOOD COUNT 3.09 10^6/uL (4.30-6.10); WHITE BLOOD COUNT 5.8 10^3/uL (4.0-10.0)
[2022-11-21] MEDS ORDERED: HEPARIN 1,000UNITS/ML 10ML VIAL (FOR RADIOLOGY & DIALYSIS ONLY) XX SCH (06:55)
[2022-11-21] MEDS ORDERED: SODIUM CHLORIDE 0.9% 1000ML IV PRN (06:55)
[2022-11-21] MEDS ORDERED: HEPARIN 1,000UNITS/ML 10ML VIAL (FOR RADIOLOGY & DIALYSIS ONLY) IV PRN (06:55)
[2022-11-21 07:13] LABS: VANCOMYCIN RANDOM 16.2 UG/ML
[2022-11-21 07:15] LABS: C REACTIVE PROTEIN QUANTITATIV 21.5 MG/DL (<1.0)
[2022-11-21] MEDS: LANTHANUM CARBONATE 500MG CHEW TABLET PO SCH ×4 (08:00→17:48)
[2022-11-21] MEDS: traMADol 50 MG TAB PO PRN ×2 (08:52→22:14)
[2022-11-21] MEDS: TORSEMIDE (DEMADEX) 50 MG PER 1/2 TAB PO SCH ×2 (09:00→14:14)
[2022-11-21 14:00] VITALS: BP 124/78; TEMP 97.5; O2SAT 97
[2022-11-21] MEDS: ATORVASTATIN 20 MG TAB PO SCH (14:11)
[2022-11-21] MEDS: TAMSULOSIN 0.4 MG CAP PO SCH (14:11)
[2022-11-21] MEDS: allopurinoL 100 MG TAB PO SCH (14:11)
[2022-11-21] MEDS: atenoloL 25 MG TAB PO SCH (14:12)
[2022-11-21] MEDS: predniSONE 20 MG TAB PO SCH (14:12)
[2022-11-21] MEDS: ASPIRIN 81MG ENTERIC TABLET PO SCH (14:12)
[2022-11-21] MEDS: PANTOPRAZOLE 40MG TAB (PROTONIX) PO SCH ×2 (14:12→20:38)
[2022-11-21] MEDS: APIXABAN 5 MG TAB (ELIQUIS) PO SCH ×2 (14:19→20:38)
[2022-11-21] MEDS: LIDOCAINE 5% (LIDODERM) PATCH TD SCH ×2 (14:29→14:30)
[2022-11-21] MEDS ORDERED: VANCOMYCIN HCL 1,000 MG, VIAL MATE ADAPTER 1 EACH in D5W 250 ML IV SCH (16:00)
[2022-11-22 05:22] VITALS: BP 171/79; TEMP 97.7; O2SAT 99
[2022-11-22] MEDS: LevoFLOXacin 500 MG TABLET PO SCH (05:30)
[2022-11-22] MEDS: LEVOTHYROXINE 88MCG TABLET (0.088 MG) PO SCH (05:30)
[2022-11-22 07:17] LABS: BASO % 0.2 % (0.0-1.0); HEMATOCRIT 28.9 % (42.0-52.0); LYMPH # 0.4 10^3/uL (1.5-5.0); LYMPH % 7.5 % (24.0-44.0); MEAN CORPUSCULAR HEMOGLOBIN 29.8 pg (27.0-33.0); MEAN CORPUSCULAR HGB CONC 31.1 g/dl (32.0-36.5); MEAN CORPUSCULAR VOLUME 95.7 fl (80.0-96.0); MONO # 0.4 10^3/uL (0.0-0.8); MONO % 8.7 % (2.0-8.0); NEUTROPHILS # 4.2 10^3/uL (1.5-8.5); NEUTROPHILS % 82.4 % (36.0-66.0); PLATELET COUNT, AUTOMATED 210 10^3/uL (150-450); RED BLOOD COUNT 3.02 10^6/uL (4.30-6.10)
[2022-11-22 07:41] LABS: VANCOMYCIN RANDOM 21.8 UG/ML
[2022-11-22 07:43] LABS: C REACTIVE PROTEIN QUANTITATIV 7.3 MG/DL (<1.0)
[2022-11-22] MEDS: ATORVASTATIN 20 MG TAB PO SCH (09:51)
[2022-11-22] MEDS: PANTOPRAZOLE 40MG TAB (PROTONIX) PO SCH ×2 (09:51→20:44)
[2022-11-22] MEDS: TAMSULOSIN 0.4 MG CAP PO SCH (09:51)
[2022-11-22] MEDS: TORSEMIDE (DEMADEX) 50 MG PER 1/2 TAB PO SCH ×2 (09:51→16:24)
[2022-11-22] MEDS: ASPIRIN 81MG ENTERIC TABLET PO SCH (09:51)
[2022-11-22] MEDS: allopurinoL 100 MG TAB PO SCH (09:52)
[2022-11-22] MEDS: predniSONE 20 MG TAB PO SCH (09:52)
[2022-11-22] MEDS: APIXABAN 5 MG TAB (ELIQUIS) PO SCH ×2 (09:52→20:44)
[2022-11-22] MEDS: atenoloL 25 MG TAB PO SCH (09:52)
[2022-11-22] MEDS: LIDOCAINE 5% (LIDODERM) PATCH TD SCH ×2 (09:53)
[2022-11-22] MEDS: LANTHANUM CARBONATE 500MG CHEW TABLET PO SCH ×3 (09:53→17:33)
[2022-11-22] MEDS ORDERED: POLYVINYL ALCOHOL OPHTH SOLN 15ML (LIQUITEARS) OU PRN (12:45)
[2022-11-22] MEDS: ACETAMINOPHEN TAB 650MG DOSE (2X325MG) PO PRN (16:21)
[2022-11-22 16:26] VITALS: BP 146/80
[2022-11-22] MEDS: traMADol 50 MG TAB PO PRN (21:56)
[2022-11-23] MEDS: ACETAMINOPHEN TAB 650MG DOSE (2X325MG) PO PRN ×3 (03:56→21:13)
[2022-11-23] MEDS: LEVOTHYROXINE 88MCG TABLET (0.088 MG) PO SCH (05:27)
[2022-11-23 06:59] LABS: BASO % 0.2 % (0.0-1.0); EOS % 0.4 % (0.0-3.0); HEMATOCRIT 28.7 % (42.0-52.0); HEMOGLOBIN 8.9 g/dl (13.5-17.5); LYMPH # 0.5 10^3/uL (1.5-5.0); LYMPH % 9.4 % (24.0-44.0); MEAN CORPUSCULAR HEMOGLOBIN 29.8 pg (27.0-33.0); MONO # 0.5 10^3/uL (0.0-0.8); MONO % 9.8 % (2.0-8.0); NEUTROPHILS # 4.1 10^3/uL (1.5-8.5); NEUTROPHILS % 76.1 % (36.0-66.0); PLATELET COUNT, AUTOMATED 193 10^3/uL (150-450); RED BLOOD COUNT 2.99 10^6/uL (4.30-6.10); WHITE BLOOD COUNT 5.4 10^3/uL (4.0-10.0)
[2022-11-23] MEDS: LANTHANUM CARBONATE 500MG CHEW TABLET PO SCH ×5 (08:00→16:53)
[2022-11-23] MEDS: TAMSULOSIN 0.4 MG CAP PO SCH (09:27)
[2022-11-23] MEDS: allopurinoL 100 MG TAB PO SCH (09:28)
[2022-11-23] MEDS: ASPIRIN 81MG ENTERIC TABLET PO SCH (09:28)
[2022-11-23] MEDS: ATORVASTATIN 20 MG TAB PO SCH (09:28)
[2022-11-23] MEDS: TORSEMIDE (DEMADEX) 50 MG PER 1/2 TAB PO SCH ×2 (09:28→17:33)
[2022-11-23] MEDS: predniSONE 20 MG TAB PO SCH (09:28)
[2022-11-23] MEDS: atenoloL 25 MG TAB PO SCH (09:28)
[2022-11-23] MEDS: APIXABAN 5 MG TAB (ELIQUIS) PO SCH ×2 (09:28→21:01)
[2022-11-23] MEDS: PANTOPRAZOLE 40MG TAB (PROTONIX) PO SCH ×2 (09:28→21:01)
[2022-11-23] MEDS: LIDOCAINE 5% (LIDODERM) PATCH TD SCH ×2 (09:29)
[2022-11-23] MEDS ORDERED: SALIVA SUBSTITUTE(MOUTHKOTE) BTL MT PRN (21:35)
[2022-11-23] MEDS: traMADol 50 MG TAB PO PRN (22:20)
[2022-11-24 05:43] VITALS: BP 163/91
[2022-11-24] MEDS: atenoloL 25 MG TAB PO SCH (05:43)
[2022-11-24] MEDS: LEVOTHYROXINE 88MCG TABLET (0.088 MG) PO SCH (05:44)
[2022-11-24] MEDS: APIXABAN 5 MG TAB (ELIQUIS) PO SCH ×2 (05:44→21:50)
[2022-11-24] MEDS: LANTHANUM CARBONATE 500MG CHEW TABLET PO SCH ×3 (05:44→17:23)
[2022-11-24] MEDS: ATORVASTATIN 20 MG TAB PO SCH (05:44)
[2022-11-24] MEDS: TORSEMIDE (DEMADEX) 50 MG PER 1/2 TAB PO SCH ×2 (05:44→17:23)
[2022-11-24] MEDS: predniSONE 20 MG TAB PO SCH (05:44)
[2022-11-24] MEDS: PANTOPRAZOLE 40MG TAB (PROTONIX) PO SCH ×2 (05:44→21:51)
[2022-11-24] MEDS: allopurinoL 100 MG TAB PO SCH (05:44)
[2022-11-24] MEDS: TAMSULOSIN 0.4 MG CAP PO SCH (05:44)
[2022-11-24] MEDS: ASPIRIN 81MG ENTERIC TABLET PO SCH (05:44)
[2022-11-24] MEDS: LevoFLOXacin 500 MG TABLET PO SCH (05:44)
[2022-11-24 06:00] VITALS: BP 163/91; TEMP 98.5; O2SAT 95
[2022-11-24 06:45] LABS: VANCOMYCIN RANDOM 19.1 UG/ML
[2022-11-24 06:46] LABS: CALCIUM LEVEL 9.1 MG/DL (8.3-10.6); CREATININE FOR GFR 6.02 MG/DL (0.70-1.30); GLOMERULAR FILTRATION RATE 9.7 (>42)
[2022-11-24] MEDS ORDERED: DARBEPOETIN 200MCG/0.4ML *DIALYSIS* SYRINGE IV SCH (07:00)
[2022-11-24] MEDS ORDERED: HEPARIN 1,000UNITS/ML 10ML VIAL (FOR RADIOLOGY & DIALYSIS ONLY) XX SCH (07:00)
[2022-11-24] MEDS ORDERED: SODIUM CHLORIDE 0.9% 1000ML IV PRN (07:00)
[2022-11-24] MEDS ORDERED: HEPARIN 1,000UNITS/ML 10ML VIAL (FOR RADIOLOGY & DIALYSIS ONLY) IV PRN (07:00)
[2022-11-24] MEDS: traMADol 50 MG TAB PO PRN ×2 (07:53→21:51)
[2022-11-24 08:00] VITALS: BP 144/82; TEMP 98.9; O2SAT 96
[2022-11-24] MEDS: LIDOCAINE 5% (LIDODERM) PATCH TD SCH ×2 (08:33)
[2022-11-24] MEDS: ACETAMINOPHEN TAB 650MG DOSE (2X325MG) PO PRN ×2 (12:46→21:51)
[2022-11-24] MEDS ORDERED: VANCOMYCIN HCL 750 MG, VIAL MATE ADAPTER 1 EACH in D5W 250 ML IV SCH (16:00)
[2022-11-24] MEDS ORDERED: FOSFOMYCIN TROMETHAMINE 3 GM POWDER PACKET (MONUROL) PO ONE (21:00)
[2022-11-25] MEDS: LEVOTHYROXINE 88MCG TABLET (0.088 MG) PO SCH (05:49)
[2022-11-25 05:54] VITALS: BP 157/81; TEMP 97.7; O2SAT 98
[2022-11-25] MEDS: ONDANSETRON 4MG ORAL DISINTEGRATING TAB PO PRN (06:38)
[2022-11-25] MEDS ORDERED: FOSFOMYCIN TROMETHAMINE 3 GM POWDER PACKET (MONUROL) PO ONE (09:00)
[2022-11-25] MEDS: TAMSULOSIN 0.4 MG CAP PO SCH (09:38)
[2022-11-25] MEDS: TORSEMIDE (DEMADEX) 50 MG PER 1/2 TAB PO SCH (09:39)
[2022-11-25] MEDS: allopurinoL 100 MG TAB PO SCH (09:39)
[2022-11-25] MEDS: ASPIRIN 81MG ENTERIC TABLET PO SCH (09:39)
[2022-11-25] MEDS: atenoloL 25 MG TAB PO SCH (09:39)
[2022-11-25] MEDS: APIXABAN 5 MG TAB (ELIQUIS) PO SCH (09:41)
[2022-11-25] MEDS: predniSONE 20 MG TAB PO SCH (09:41)
[2022-11-25] MEDS: ATORVASTATIN 20 MG TAB PO SCH (09:41)
[2022-11-25] MEDS: LANTHANUM CARBONATE 500MG CHEW TABLET PO SCH ×2 (09:41→12:30)
[2022-11-25] MEDS: PANTOPRAZOLE 40MG TAB (PROTONIX) PO SCH (09:41)
[2022-11-25] MEDS: LIDOCAINE 5% (LIDODERM) PATCH TD SCH ×2 (09:42)
[2022-11-25] MEDS ORDERED: ATOR80TA59 PO (11:58)
[2022-11-25] MEDS ORDERED: LEVO1TAB38 PO (11:58)
[2022-11-25] MEDS ORDERED: TRAM50TA2 PO (11:58)
[2022-11-25] MEDS ORDERED: ASPI81TAEC PO (11:58)
[2022-11-25] MEDS ORDERED: ELIQ5TAB PO (11:58)
[2022-11-25] MEDS ORDERED: HYDR-3910 PO (12:00)
[2022-11-25] MEDS ORDERED: ATEN50TA2 PO (12:03)
[2022-11-25] MEDS ORDERED: LevoFLOXacin 250 MG TABLET PO SCH (16:00)
== END 2022-11-25 13:46 ==
LOC: M ED 18:29 → EDBD 18:29 → INTOOBSV 10-29 02:46 → M ED INP 10-29 02:46 → ENRESERV 10-29 03:04 → M MS5PR 10-29 04:00 → M ICU 11-04 09:09 → M MSPAV 11-05 17:19
PROVIDERS: ADMIT Family Medicine; ATTEND Internal Medicine
DX: I63.9 Cerebral infarction, unspecified (principal); S70.02XA Contusion of left hip, initial encounter; M25.512 Pain in left shoulder; G89.29 Other chronic pain; M19.012 Primary osteoarthritis, left shoulder; M16.12 Unilateral primary osteoarthritis, left hip; M16.11 Unilateral primary osteoarthritis, right hip; W01.198A Fall on same level from slipping, tripping and stumbling with subsequent striking against other object, initial encounter; Y92.091 Bathroom in other non-institutional residence as the place of occurrence of the external cause; Y93.E8 Activity, other personal hygiene; N39.0 Urinary tract infection, site not specified; B96.1 Klebsiella pneumoniae [K. pneumoniae] as the cause of diseases classified elsewhere; B95.2 Enterococcus as the cause of diseases classified elsewhere; N18.6 End stage renal disease; Z99.2 Dependence on renal dialysis; R26.2 Difficulty in walking, not elsewhere classified; Z99.89 Dependence on other enabling machines and devices; N40.1 Benign prostatic hyperplasia with lower urinary tract symptoms; R42 Dizziness and giddiness; R07.9 Chest pain, unspecified; D63.1 Anemia in chronic kidney disease; R47.81 Slurred speech; R53.1 Weakness; E11.22 Type 2 diabetes mellitus with diabetic chronic kidney disease; I48.91 Unspecified atrial fibrillation; E03.9 Hypothyroidism, unspecified; I25.10 Atherosclerotic heart disease of native coronary artery without angina pectoris; Z95.1 Presence of aortocoronary bypass graft; I11.0 Hypertensive heart disease with heart failure; I50.20 Unspecified systolic (congestive) heart failure; Z95.0 Presence of cardiac pacemaker; M10.9 Gout, unspecified; K21.9 Gastro-esophageal reflux disease without esophagitis; Z88.0 Allergy status to penicillin; Z88.1 Allergy status to other antibiotic agents; Z88.2 Allergy status to sulfonamides; Z88.8 Allergy status to other drugs, medicaments and biological substances; Z91.041 Radiographic dye allergy status; Z79.899 Other long term (current) drug therapy; Z79.01 Long term (current) use of anticoagulants; Z79.82 Long term (current) use of aspirin; Z79.890 Hormone replacement therapy; Z79.2 Long term (current) use of antibiotics

== ENCOUNTER → 2023-02-15 | Outpatient (REF) | payer MEDICARE ==
[~2023-02-15] MED LIST changes: +ALBU8.5H INH; +ASPI81TAEC PO; +ATEN50TA2 PO; +ATOR80TA59 PO; +FOSR1000 PO; +LEVO1TAB38 PO; +RENATAB5 PO
== END ==
LOC: SKLAB4 14:06
PROVIDERS: ATTEND Internal Medicine
DX: M79.89 Other specified soft tissue disorders (principal)

== ENCOUNTER → 2023-02-19 | Outpatient (REF) | payer MEDICARE ==
[~2023-02-19] MED LIST changes: +ACET1TAB55 PO; +ALBU2.5V10 NEB; +ALPR0.25 PO; +CEFD300CAP PO; +DULC10SU2 PR; +FLEEENE12 PR; +FLOM0.4C39 PO; +MENT118S2 TP; +MILKSUS3 PO; +ONDA-83 PO; +VANC750I IV
[2023-02-19 06:51] LABS: HEMATOCRIT 32.7 % (42.0-52.0); HEMOGLOBIN 10.3 g/dl (13.5-17.5); MEAN CORPUSCULAR HEMOGLOBIN 32.5 pg (27.0-33.0); MEAN CORPUSCULAR HGB CONC 31.5 g/dl (32.0-36.5); MEAN CORPUSCULAR VOLUME 103.2 fl (80.0-96.0); PLATELET COUNT, AUTOMATED 145 10^3/uL (150-450); RED BLOOD COUNT 3.17 10^6/uL (4.30-6.10); WHITE BLOOD COUNT 4.6 10^3/uL (4.0-10.0)
== END ==
LOC: SKLAB4 02-18 21:21
PROVIDERS: ATTEND Internal Medicine
DX: R06.02 Shortness of breath (principal)

== ENCOUNTER 2023-02-20 14:52 | Inpatient (IN) | payer MEDICARE ==
[~2023-02-20] VITALS: Ht 185.4 cm; Wt 77.3 kg
[~2023-02-20 14:52] MED LIST changes: -ACET1TAB55 PO; -ALBU2.5V10 NEB; -ALPR0.25 PO; -CEFD300CAP PO; -DULC10SU2 PR; -FLEEENE12 PR; -FLOM0.4C39 PO; -MENT118S2 TP; -MILKSUS3 PO; -ONDA-83 PO; -VANC750I IV
[2023-02-20] MEDS ORDERED: ACET1TAB55 PO (16:08)
[2023-02-20 16:24] LABS: BASO % 0.6 % (0.0-1.0); EOS # 0.1 10^3/uL (0.0-0.5); EOS % 1.3 % (0.0-3.0); HEMATOCRIT 33.6 % (42.0-52.0); HEMOGLOBIN 10.5 g/dl (13.5-17.5); LYMPH # 0.7 10^3/uL (1.5-5.0); MEAN CORPUSCULAR HEMOGLOBIN 32.4 pg (27.0-33.0); MEAN CORPUSCULAR HGB CONC 31.3 g/dl (32.0-36.5); MEAN CORPUSCULAR VOLUME 103.7 fl (80.0-96.0); MONO # 0.5 10^3/uL (0.0-0.8); MONO % 9.3 % (2.0-8.0); NEUTROPHILS % 75.1 % (36.0-66.0); PLATELET COUNT, AUTOMATED 159 10^3/uL (150-450); RED BLOOD COUNT 3.24 10^6/uL (4.30-6.10); WHITE BLOOD COUNT 5.4 10^3/uL (4.0-10.0)
[2023-02-20 16:30] LABS: CALCIUM LEVEL 9.9 MG/DL (8.3-10.6); CREATININE FOR GFR 2.98 MG/DL (0.70-1.30); GLOMERULAR FILTRATION RATE 21.8 (>42); POTASSIUM SERUM 3.6 MMOL/L (3.5-5.1)
[2023-02-20] MEDS ORDERED: traMADol 50 MG TAB PO ONE (17:05)
[2023-02-20 20:46] LABS: THYROID STIMULATING HORMONE 4.605 uIU/ML (0.55-4.78)
[2023-02-20] MEDS ORDERED: ELIQ5TAB PO (21:35)
[2023-02-20] MEDS ORDERED: MENT118S2 TP (21:35)
[2023-02-20] MEDS ORDERED: ALBU2.5V10 NEB (21:35)
[2023-02-20] MEDS ORDERED: NITROGLYCERIN 2% OINT 1 GM *U/D* PKT TOP ONE (21:40)
[2023-02-20] MEDS ORDERED: RENATAB5 PO (21:45)
[2023-02-20] MEDS ORDERED: ALPR0.25 PO (21:45)
[2023-02-20] MEDS ORDERED: ATEN50TA2 PO (21:45)
[2023-02-20] MEDS ORDERED: FLEEENE12 PR (21:45)
[2023-02-20] MEDS ORDERED: MILKSUS3 PO (21:45)
[2023-02-20] MEDS ORDERED: DULC10SU2 PR (21:45)
[2023-02-20] MEDS ORDERED: ONDA-83 PO (21:45)
[2023-02-20] MEDS ORDERED: HOME MED LIST COMPLETE! XX SCH (21:50)
[2023-02-20] MEDS ORDERED: ALPRAZolam 0.25 MG TAB PO PRN (21:55)
[2023-02-20] MEDS ORDERED: MECLIZINE 25 MG TABLET PO PRN (21:55)
[2023-02-20] MEDS ORDERED: MOM 30ML SUSPENSION UDC PO PRN (21:55)
[2023-02-20] MEDS ORDERED: ALBUTEROL 90 MCG/ACT 8GM HFA INHALER INH PRN (21:55)
[2023-02-20] MEDS ORDERED: FLEET ENEMA PR PRN (21:55)
[2023-02-20] MEDS ORDERED: BISACODYL 10MG SUPP PR PRN (21:55)
[2023-02-20] MEDS ORDERED: MIRALAX *UNIT DOSE* 17GM PACKET PO PRN (21:55)
[2023-02-20] MEDS: ACETAMINOPHEN TAB 650MG DOSE (2X325MG) PO PRN (22:01)
[2023-02-20 23:05] VITALS: BP 192/90; TEMP 97.3; O2SAT 100
[2023-02-20] MEDS: TORSEMIDE (DEMADEX) 50 MG PER 1/2 TAB PO SCH (23:30)
[2023-02-20 23:59] LABS: PROCALCITONIN 0.26 ng/ml
[2023-02-21] VITALS (12 sets, daily range): BP systolic 122–184; BP diastolic 64–84; TEMP 97.1–98; O2SAT 93–100
[2023-02-21] MEDS: AZITHROMYCIN 250MG TABLET PO SCH (00:48)
[2023-02-21] MEDS: cefTRIAXone SOD 1 GM in D5W MINI-BAG PLUS 50 ML IV SCH (00:48)
[2023-02-21] MEDS: traMADol 50 MG TAB PO PRN ×2 (00:52→21:32)
[2023-02-21] MEDS: LEVOTHYROXINE 88MCG TABLET (0.088 MG) PO SCH (05:51)
[2023-02-21 06:26] LABS: ALBUMIN 3.2 G/DL (3.2-5.2); CALCIUM LEVEL 9.9 MG/DL (8.3-10.6); CREATININE FOR GFR 3.92 MG/DL (0.70-1.30); GLOMERULAR FILTRATION RATE 15.9 (>42); PHOSPHORUS LEVEL 4.8 MG/DL (2.4-5.1); POTASSIUM SERUM 3.9 MMOL/L (3.5-5.1)
[2023-02-21] MEDS: LANTHANUM CARBONATE 500MG CHEW TABLET PO SCH ×4 (08:00→17:56)
[2023-02-21] MEDS: LIDOCAINE 5% (LIDODERM) PATCH TD SCH (09:00)
[2023-02-21] MEDS: PANTOPRAZOLE 40MG TAB (PROTONIX) PO SCH (09:09)
[2023-02-21] MEDS: allopurinoL 100 MG TAB PO SCH (09:09)
[2023-02-21] MEDS: atenoloL 50 MG TAB PO SCH (09:10)
[2023-02-21] MEDS: TORSEMIDE (DEMADEX) 50 MG PER 1/2 TAB PO SCH ×2 (09:10→18:47)
[2023-02-21 09:24] LABS: BASO % 0.9 % (0.0-1.0); EOS # 0.1 10^3/uL (0.0-0.5); EOS % 1.5 % (0.0-3.0); HEMATOCRIT 32.8 % (42.0-52.0); HEMOGLOBIN 10.2 g/dl (13.5-17.5); LYMPH # 0.7 10^3/uL (1.5-5.0); LYMPH % 14.8 % (24.0-44.0); MEAN CORPUSCULAR HEMOGLOBIN 32.4 pg (27.0-33.0); MEAN CORPUSCULAR HGB CONC 31.1 g/dl (32.0-36.5); MEAN CORPUSCULAR VOLUME 104.1 fl (80.0-96.0); MONO # 0.4 10^3/uL (0.0-0.8); MONO % 8.8 % (2.0-8.0); NEUTROPHILS # 3.4 10^3/uL (1.5-8.5); NEUTROPHILS % 73.4 % (36.0-66.0); PLATELET COUNT, AUTOMATED 138 10^3/uL (150-450); RED BLOOD COUNT 3.15 10^6/uL (4.30-6.10); WHITE BLOOD COUNT 4.7 10^3/uL (4.0-10.0)
[2023-02-21] MEDS: ATORVASTATIN 20 MG TAB PO SCH (20:35)
[2023-02-21] MEDS: ASPIRIN 81MG ENTERIC TABLET PO SCH (20:35)
[2023-02-21] MEDS: TAMSULOSIN 0.4 MG CAP PO SCH (20:36)
[2023-02-22] VITALS (31 sets, daily range): BP systolic 104–184; BP diastolic 64–80; TEMP 97–98; O2SAT 95–100
[2023-02-22] MEDS: AZITHROMYCIN 250MG TABLET PO SCH (00:11)
[2023-02-22] MEDS: cefTRIAXone SOD 1 GM in D5W MINI-BAG PLUS 50 ML IV SCH (00:11)
[2023-02-22] MEDS ORDERED: MAALOX 30 ML SUSP *UDC PO PRN (05:10)
[2023-02-22] MEDS: LEVOTHYROXINE 88MCG TABLET (0.088 MG) PO SCH (05:20)
[2023-02-22 06:45] LABS: BASO % 0.6 % (0.0-1.0); EOS # 0.1 10^3/uL (0.0-0.5); EOS % 1.3 % (0.0-3.0); HEMATOCRIT 33.5 % (42.0-52.0); HEMOGLOBIN 10.7 g/dl (13.5-17.5); LYMPH # 0.7 10^3/uL (1.5-5.0); LYMPH % 12.6 % (24.0-44.0); MEAN CORPUSCULAR HEMOGLOBIN 32.9 pg (27.0-33.0); MEAN CORPUSCULAR HGB CONC 31.9 g/dl (32.0-36.5); MEAN CORPUSCULAR VOLUME 103.1 fl (80.0-96.0); MONO # 0.4 10^3/uL (0.0-0.8); MONO % 7.6 % (2.0-8.0); NEUTROPHILS # 4.2 10^3/uL (1.5-8.5); NEUTROPHILS % 77.3 % (36.0-66.0); PLATELET COUNT, AUTOMATED 155 10^3/uL (150-450); RED BLOOD COUNT 3.25 10^6/uL (4.30-6.10); WHITE BLOOD COUNT 5.4 10^3/uL (4.0-10.0)
[2023-02-22 07:17] LABS: ALBUMIN 3.5 G/DL (3.2-5.2); CALCIUM LEVEL 9.9 MG/DL (8.3-10.6); CREATININE FOR GFR 4.97 MG/DL (0.70-1.30); GLOMERULAR FILTRATION RATE 12.1 (>42); MAGNESIUM LEVEL 1.7 MG/DL (1.8-2.4); PHOSPHORUS LEVEL 5.9 MG/DL (2.4-5.1); POTASSIUM SERUM 4.3 MMOL/L (3.5-5.1)
[2023-02-22] MEDS: LANTHANUM CARBONATE 500MG CHEW TABLET PO SCH ×3 (08:00→17:43)
[2023-02-22] MEDS ORDERED: MAGNESIUM OXIDE 400MG TAB (MAG-OX) PO ONE (08:05)
[2023-02-22] MEDS ORDERED: ONDANSETRON 4MG 2ML VIAL IV PRN (08:30)
[2023-02-22] MEDS ORDERED: ONDANSETRON 4MG 2ML VIAL IV ONE (09:00)
[2023-02-22] MEDS: TORSEMIDE (DEMADEX) 50 MG PER 1/2 TAB PO SCH ×2 (09:53→18:49)
[2023-02-22] MEDS: atenoloL 50 MG TAB PO SCH (09:54)
[2023-02-22] MEDS: PANTOPRAZOLE 40MG TAB (PROTONIX) PO SCH (09:54)
[2023-02-22] MEDS: allopurinoL 100 MG TAB PO SCH (09:54)
[2023-02-22] MEDS: LIDOCAINE 5% (LIDODERM) PATCH TD SCH (09:55)
[2023-02-22 13:09] LABS: PH BODY FLUID 7.683 UNITS (NOT ESTABLISHED); SOURCE, BODY FLUID pH PLEURAL
[2023-02-22 13:10] LABS: APPEARANCE, BODY FLUID CLEAR (CLEAR); PLEURAL FL COLOR PALE YELLOW (COLORLESS); SOURCE, BODY FLUID PLEURAL
[2023-02-22] MEDS: traMADol 50 MG TAB PO PRN ×2 (13:10→21:15)
[2023-02-22 13:23] LABS: SOURCE, BODY FLUID GLUCOSE PLEURAL
[2023-02-22 13:24] LABS: LDH, BODY FLUID 50 U/L (NOT ESTABLISHED); SOURCE, BODY FLUID LDH PLEURAL
[2023-02-22 13:25] LABS: AMYLASE, BODY FLUID 52 U/L (NOT ESTABLISHED); SOURCE, BODY FLUID AMYLASE PLEURAL; SOURCE, BODY FLUID TOT PROTEIN PLEURAL; TOTAL PROTEIN, BODY FLUID 2.7 G/DL (NOT ESTABLISHED)
[2023-02-22 16:35] LABS: TOTAL PROTEIN 6.7 G/DL (5.7-8.2)
[2023-02-22] MEDS: ACETAMINOPHEN TAB 650MG DOSE (2X325MG) PO PRN ×2 (17:43→23:59)
[2023-02-22] MEDS: TAMSULOSIN 0.4 MG CAP PO SCH (21:00)
[2023-02-22] MEDS: ASPIRIN 81MG ENTERIC TABLET PO SCH (21:14)
[2023-02-22] MEDS: ATORVASTATIN 20 MG TAB PO SCH (21:14)
[2023-02-23] VITALS (12 sets, daily range): BP systolic 132–155; BP diastolic 68–80; TEMP 97.1–97.4; O2SAT 96–100
[2023-02-23] MEDS: cefTRIAXone SOD 1 GM in D5W MINI-BAG PLUS 50 ML IV SCH (00:02)
[2023-02-23] MEDS ORDERED: AZITHROMYCIN INJ 500 MG, VIAL MATE ADAPTER 1 EACH in NS 250 ML IV SCH (01:00)
[2023-02-23] MEDS: LEVOTHYROXINE 88MCG TABLET (0.088 MG) PO SCH (06:00)
[2023-02-23 06:38] LABS: BASO % 0.4 % (0.0-1.0); EOS # 0.1 10^3/uL (0.0-0.5); EOS % 1.3 % (0.0-3.0); HEMATOCRIT 33.6 % (42.0-52.0); HEMOGLOBIN 10.5 g/dl (13.5-17.5); LYMPH # 0.7 10^3/uL (1.5-5.0); LYMPH % 12.1 % (24.0-44.0); MEAN CORPUSCULAR HGB CONC 31.3 g/dl (32.0-36.5); MEAN CORPUSCULAR VOLUME 102.4 fl (80.0-96.0); MONO # 0.6 10^3/uL (0.0-0.8); MONO % 11.4 % (2.0-8.0); NEUTROPHILS # 4.1 10^3/uL (1.5-8.5); NEUTROPHILS % 74.1 % (36.0-66.0); PLATELET COUNT, AUTOMATED 136 10^3/uL (150-450); RED BLOOD COUNT 3.28 10^6/uL (4.30-6.10); WHITE BLOOD COUNT 5.6 10^3/uL (4.0-10.0)
[2023-02-23] MEDS ORDERED: SODIUM CHLORIDE 0.9% 1000ML IV PRN (07:00)
[2023-02-23] MEDS ORDERED: HEPARIN 1,000UNITS/ML 10ML VIAL (FOR RADIOLOGY & DIALYSIS ONLY) XX SCH (07:00)
[2023-02-23] MEDS ORDERED: HEPARIN 1,000UNITS/ML 10ML VIAL (FOR RADIOLOGY & DIALYSIS ONLY) IV PRN (07:00)
[2023-02-23 07:06] LABS: ALBUMIN 3.2 G/DL (3.2-5.2); CALCIUM LEVEL 10.3 MG/DL (8.3-10.6); CREATININE FOR GFR 5.8 MG/DL (0.70-1.30); GLOMERULAR FILTRATION RATE 10.1 (>42); MAGNESIUM LEVEL 1.8 MG/DL (1.8-2.4); PHOSPHORUS LEVEL 6.6 MG/DL (2.4-5.1); POTASSIUM SERUM 4.7 MMOL/L (3.5-5.1)
[2023-02-23] MEDS: LANTHANUM CARBONATE 500MG CHEW TABLET PO SCH ×3 (08:11→17:58)
[2023-02-23] MEDS: allopurinoL 100 MG TAB PO SCH (08:12)
[2023-02-23] MEDS: TORSEMIDE (DEMADEX) 50 MG PER 1/2 TAB PO SCH ×2 (08:13→18:07)
[2023-02-23] MEDS: atenoloL 50 MG TAB PO SCH (08:14)
[2023-02-23] MEDS: PANTOPRAZOLE 40MG TAB (PROTONIX) PO SCH (08:15)
[2023-02-23] MEDS: LIDOCAINE 5% (LIDODERM) PATCH TD SCH (08:15)
[2023-02-23] MEDS ORDERED: ACETAMINOPHEN TAB 650MG DOSE (2X325MG) PO PRN (10:05)
[2023-02-23] MEDS ORDERED: VANCOMYCIN HCL 750 MG, VIAL MATE ADAPTER 1 EACH in D5W 250 ML IV SCH (10:05)
[2023-02-23] MEDS ORDERED: traMADol 50 MG TAB PO PRN (10:10)
[2023-02-23] MEDS ORDERED: ASPI81TAEC PO (10:54)
[2023-02-23] MEDS ORDERED: ATOR80TA59 PO (10:54)
[2023-02-23] MEDS ORDERED: VANC750I IV (11:00)
[2023-02-23] MEDS ORDERED: FLOM0.4C39 PO (11:00)
[2023-02-23] MEDS ORDERED: CEFD300CAP PO (11:00)
[2023-02-23] MEDS: ACETAMINOPHEN TAB 650MG DOSE (2X325MG) PO PRN (12:09)
[2023-02-23] MEDS ORDERED: VANCOMYCIN HCL 750 MG, VIAL MATE ADAPTER 1 EACH in D5W 250 ML IV ONE ×2 (16:00→17:00)
[2023-02-23] MEDS ORDERED: CEFDINIR 300 MG CAP (OMNICEF) PO SCH (16:00)
[2023-02-23] MEDS ORDERED: LINEZOLID 600MG TABLET (ZYVOX) PO SCH (21:00)
[2023-02-24 14:08] LABS: BODY FLUID CULTURE Not indicated. (.); LEGIONELLA ANTIGEN URINE Negative (Negative); ORGANISM ID Not indicated. (.); SPECIMEN SOURCE Urine (.); URINE STREP PNEUMONIAE ANTIGEN Negative (Negative)
== END 2023-02-23 18:41 | DRG 291 ==
LOC: M ED 14:52 → EDBD 14:52 → M ED INP 20:12 → EEVIPCON 20:12 → M PCU 23:01
PROVIDERS: ADMIT Internal Medicine; ATTEND Internal Medicine
PROC: B246ZZZ Ultrasonography of Right and Left Heart (ICD-10-PCS; 2023-02-21)
PROC: 0W9B3ZZ Drainage of Left Pleural Cavity, Percutaneous Approach (ICD-10-PCS; principal; 2023-02-22 16:30)
PROC: 5A1D70Z Performance of Urinary Filtration, Intermittent, Less than 6 Hours Per Day (ICD-10-PCS; 2023-02-23)
DX: I13.2 Hypertensive heart and chronic kidney disease with heart failure and with stage 5 chronic kidney disease, or end stage renal disease (principal); N18.6 End stage renal disease; I50.23 Acute on chronic systolic (congestive) heart failure; J15.211 Pneumonia due to Methicillin susceptible Staphylococcus aureus; I48.19 Other persistent atrial fibrillation; I16.9 Hypertensive crisis, unspecified; I49.5 Sick sinus syndrome; I25.10 Atherosclerotic heart disease of native coronary artery without angina pectoris; I25.2 Old myocardial infarction; I25.5 Ischemic cardiomyopathy; I69.334 Monoplegia of upper limb following cerebral infarction affecting left non-dominant side; E03.9 Hypothyroidism, unspecified; N40.1 Benign prostatic hyperplasia with lower urinary tract symptoms; M10.9 Gout, unspecified; K21.9 Gastro-esophageal reflux disease without esophagitis; G89.29 Other chronic pain; F41.9 Anxiety disorder, unspecified; I77.810 Thoracic aortic ectasia; E83.39 Other disorders of phosphorus metabolism; R42 Dizziness and giddiness; D64.9 Anemia, unspecified; Z99.2 Dependence on renal dialysis; Z90.49 Acquired absence of other specified parts of digestive tract; Z79.899 Other long term (current) drug therapy; Z79.890 Hormone replacement therapy; Z95.1 Presence of aortocoronary bypass graft; Z95.0 Presence of cardiac pacemaker; Z85.528 Personal history of other malignant neoplasm of kidney; Z90.5 Acquired absence of kidney; Z79.01 Long term (current) use of anticoagulants; Z88.2 Allergy status to sulfonamides; Z88.1 Allergy status to other antibiotic agents; Z88.0 Allergy status to penicillin; Z88.8 Allergy status to other drugs, medicaments and biological substances

== ENCOUNTER → 2023-03-16 | Outpatient (REF) | payer MEDICARE ==
[~2023-03-16] MED LIST changes: +ACET1TAB55 PO; +ALBU2.5V10 NEB; +ALPR0.25 PO; +CEFD300CAP PO; +DULC10SU2 PR; +FLEEENE12 PR; +FLOM0.4C39 PO; +MENT118S2 TP; +MILKSUS3 PO; +ONDA-83 PO; +VANC750I IV
== END ==
LOC: SKLAB4 10:34
PROVIDERS: ATTEND Internal Medicine
DX: J90 Pleural effusion, not elsewhere classified (principal)

== ENCOUNTER → 2023-03-22 | Outpatient (REF) | payer MEDICARE ==
[2023-03-20 07:31] LABS: HEMATOCRIT 33.3 % (42.0-52.0); HEMOGLOBIN 10.5 g/dl (13.5-17.5); MEAN CORPUSCULAR HEMOGLOBIN 32.1 pg (27.0-33.0); MEAN CORPUSCULAR HGB CONC 31.5 g/dl (32.0-36.5); MEAN CORPUSCULAR VOLUME 101.8 fl (80.0-96.0); PLATELET COUNT, AUTOMATED 150 10^3/uL (150-450); RED BLOOD COUNT 3.27 10^6/uL (4.30-6.10); WHITE BLOOD COUNT 4.1 10^3/uL (4.0-10.0)
[2023-03-20 07:58] LABS: INR 1.46; PROTHROMBIN TIME 17.2 SECONDS (12.5-14.5)
== END ==
LOC: SKLAB4 14:29
PROVIDERS: ATTEND Internal Medicine
DX: R60.9 Edema, unspecified (principal); J90 Pleural effusion, not elsewhere classified

== ENCOUNTER → 2023-03-22 | Outpatient (CLI) | payer MEDICARE, MEDICAID ==
[2023-03-22 10:15] VITALS: TEMP 97.4
[2023-03-22 13:20] VITALS: BP 178/82; O2SAT 99
[2023-03-22 13:32] LABS: APPEARANCE, BODY FLUID CLEAR (CLEAR); PLEURAL FL COLOR YELLOW (COLORLESS); SOURCE, BODY FLUID PLEURAL
[2023-03-22 13:34] LABS: SOURCE, BODY FLUID GLUCOSE PLEURAL
[2023-03-22 13:36] LABS: AMYLASE, BODY FLUID 61 U/L (NOT ESTABLISHED); LDH, BODY FLUID 64 U/L (NOT ESTABLISHED); SOURCE, BODY FLUID AMYLASE PLEURAL; SOURCE, BODY FLUID LDH PLEURAL
[2023-03-22 13:37] LABS: SOURCE, BODY FLUID TOT PROTEIN PLEURAL; TOTAL PROTEIN, BODY FLUID 3.4 G/DL (NOT ESTABLISHED)
[2023-03-22 14:12] LABS: PH BODY FLUID 7.654 UNITS (NOT ESTABLISHED); SOURCE, BODY FLUID pH PLEURAL
== END ==
LOC: M IRPRO 09:49
PROVIDERS: ATTEND Nurse Practitioner Family
DX: J90 Pleural effusion, not elsewhere classified (principal)

== ENCOUNTER 2023-03-23 01:53 | Inpatient (IN) | payer MEDICARE ==
[~2023-03-23] VITALS: Ht 180.3 cm; Wt 70.8 kg
[2023-03-23] VITALS (17 sets, daily range): BP systolic 85–132; BP diastolic 47–66; TEMP 96.9–97.4; O2SAT 96–100
[2023-03-23] MEDS ORDERED: NS 500 ML IV ONE (02:00)
[2023-03-23 02:09] LABS: ABG BASE EXCESS -5.7 (-2.0-2.0); ABG HCO3 17.1 MMOL/L (22.0-26.0); ABG O2 SATURATION 97.4 % (95.0-99.0); ABG PARTIAL PRESSURE CO2 24.9 mmHg (35.0-45.0); ABG PARTIAL PRESSURE O2 95.9 mmHg (75.0-100.0); ABG STANDARD HCO3 19.7 MMOL/L. (22.0-26.0); ABG TOTAL CO2 17.8 MMOL/L (23.0-31.0); ABG pH (ARTERIAL) 7.454 UNITS (7.350-7.450)
[2023-03-23 02:53] LABS: HEMATOCRIT 32.4 % (42.0-52.0); HEMOGLOBIN 9.8 g/dl (13.5-17.5); MEAN CORPUSCULAR HGB CONC 30.2 g/dl (32.0-36.5); MEAN CORPUSCULAR VOLUME 105.9 fl (80.0-96.0); PLATELET COUNT, AUTOMATED 243 10^3/uL (150-450); RED BLOOD COUNT 3.06 10^6/uL (4.30-6.10); WHITE BLOOD COUNT 14.9 10^3/uL (4.0-10.0)
[2023-03-23] MEDS ORDERED: LevoFLOXacin IV 750 MG in IV 1 EA IV ONE (03:00)
[2023-03-23 03:15] LABS: ALBUMIN 3.1 G/DL (3.2-5.2); ALKALINE PHOSPHATASE 70 U/L (46-116); ALT/SGPT 84 U/L (7.0-40); AST/SGOT 166 U/L (<34); BILIRUBIN,DIRECT 0.2 MG/DL (<0.4); BILIRUBIN,TOTAL 0.5 MG/DL (0.3-1.2); BLOOD UREA NITROGEN 59 MG/DL (9-23); CARBON DIOXIDE LEVEL 20 MMOL/L (20-31); CHLORIDE LEVEL 100 MMOL/L (98-107); CK-MB VALUE MASS < 1.0 NG/ML (<3.6); GLUCOSE, FASTING 266 MG/DL (74-106); SODIUM LEVEL 137 MMOL/L (136-145)
[2023-03-23 03:17] LABS: THYROID STIMULATING HORMONE 5.802 uIU/ML (0.55-4.78)
[2023-03-23 03:22] LABS: BASOPHILS 1 % (0-1); LYMPHOCYTES 2 % (16-44); MONOCYTES 12 % (0-5); MYELOCYTES 3 % (0-0); NEUTROPHILS 81 % (28-66)
[2023-03-23 03:23] LABS: OSMOLALITY SERUM 316 MOSM/KG (280-301)
[2023-03-23 03:23] LABS: PLATELET ESTIMATE NORMAL (NORMAL); TEAR DROP CELLS 1+
[2023-03-23 03:24] LABS: POIKILOCYTOSIS 1+; POLYCHROMASIA 1+
[2023-03-23 03:25] LABS: OVALOCYTES 1+
[2023-03-23] MEDS ORDERED: NS 2,000 ML in IV 1 EA IV ONE (03:25)
[2023-03-23] MEDS ORDERED: fentaNYL 100 MCG/2 ML INJECTION As Ordered ONE (03:57)
[2023-03-23] MEDS ORDERED: MIDAZOLAM INJ 2MG/2ML VIAL As Ordered ONE (03:57)
[2023-03-23] MEDS ORDERED: LIDOCAINE W/EPINEPHRINE 1% 20ML VIAL As Ordered ONE (03:59)
[2023-03-23 04:00] LABS: CPK CREATINE PHOSPHOKINASE 27 U/L (46-171)
[2023-03-23 04:02] LABS: INR 1.98; PROTHROMBIN TIME 21.8 SECONDS (12.5-14.5)
[2023-03-23 05:00] LABS: PH BODY FLUID 7.347 UNITS (NOT ESTABLISHED); SOURCE, BODY FLUID pH PLEURAL
[2023-03-23] MEDS ORDERED: fentaNYL 100 MCG/2 ML INJECTION IV ONE (05:00)
[2023-03-23] MEDS ORDERED: MIDAZOLAM INJ 2MG/2ML VIAL IV ONE (05:00)
[2023-03-23] MEDS ORDERED: LIDOCAINE W/EPINEPHRINE 1% 20ML VIAL SC ONE (05:00)
[2023-03-23 05:17] LABS: APPEARANCE, BODY FLUID TURBID (CLEAR); PLEURAL FL COLOR RED (COLORLESS); SOURCE, BODY FLUID PLEURAL
[2023-03-23 05:36] LABS: SOURCE, BODY FLUID GLUCOSE PLEURAL
[2023-03-23 05:38] LABS: AMYLASE, BODY FLUID 76 U/L (NOT ESTABLISHED); LDH, BODY FLUID 206 U/L (NOT ESTABLISHED); SOURCE, BODY FLUID AMYLASE PLEURAL; SOURCE, BODY FLUID LDH PLEURAL; SOURCE, BODY FLUID TOT PROTEIN PLEURAL; TOTAL PROTEIN, BODY FLUID 5.2 G/DL (NOT ESTABLISHED)
[2023-03-23 08:30] LABS: HEMATOCRIT 23.9 % (42.0-52.0); MEAN CORPUSCULAR HEMOGLOBIN 32.6 pg (27.0-33.0); MEAN CORPUSCULAR HGB CONC 31.4 g/dl (32.0-36.5); MEAN CORPUSCULAR VOLUME 103.9 fl (80.0-96.0); PLATELET COUNT, AUTOMATED 154 10^3/uL (150-450); WHITE BLOOD COUNT 13.7 10^3/uL (4.0-10.0)
[2023-03-23 08:40] LABS: HEMOGLOBIN 7.5 g/dl (13.5-17.5)
[2023-03-23] MEDS ORDERED: MED REC IN PROGRESS XX SCH (08:50)
[2023-03-23] MEDS ORDERED: HEPARIN 1,000UNITS/ML 10ML VIAL (FOR RADIOLOGY & DIALYSIS ONLY) IV PRN (11:25)
[2023-03-23] MEDS ORDERED: SODIUM CHLORIDE 0.9% 1000ML IV PRN (11:25)
[2023-03-23 14:52] LABS: BASO % 0.2 % (0.0-1.0); EOS % 0.1 % (0.0-3.0); HEMATOCRIT 28.7 % (42.0-52.0); LYMPH # 0.6 10^3/uL (1.5-5.0); LYMPH % 5.5 % (24.0-44.0); MEAN CORPUSCULAR HEMOGLOBIN 31.8 pg (27.0-33.0); MEAN CORPUSCULAR HGB CONC 33.4 g/dl (32.0-36.5); MONO # 0.6 10^3/uL (0.0-0.8); MONO % 5.8 % (2.0-8.0); NEUTROPHILS # 8.8 10^3/uL (1.5-8.5); NEUTROPHILS % 86.3 % (36.0-66.0); PLATELET COUNT, AUTOMATED 152 10^3/uL (150-450); RED BLOOD COUNT 3.02 10^6/uL (4.30-6.10); WHITE BLOOD COUNT 10.2 10^3/uL (4.0-10.0)
[2023-03-23 14:59] LABS: HEMOGLOBIN 9.6 g/dl (13.5-17.5)
[2023-03-23] MEDS ORDERED: HOME MED LIST COMPLETE! XX SCH (15:35)
[2023-03-23] MEDS: NS 1,000 ML IV SCH (16:19)
[2023-03-23] MEDS ORDERED: MECLIZINE 25 MG TABLET PO PRN (19:15)
[2023-03-23] MEDS ORDERED: MOM 30ML SUSPENSION UDC PO PRN (19:15)
[2023-03-23] MEDS ORDERED: ALBUTEROL 90 MCG/ACT 8GM HFA INHALER INH PRN (19:15)
[2023-03-23] MEDS ORDERED: ONDANSETRON 4MG TAB PO PRN (19:15)
[2023-03-23] MEDS ORDERED: BISACODYL 10MG SUPP PR PRN (19:15)
[2023-03-23] MEDS: fentaNYL 100 MCG/2 ML INJECTION IV PRN (19:25)
[2023-03-23] MEDS: TORSEMIDE (DEMADEX) 50 MG PER 1/2 TAB PO SCH (19:44)
[2023-03-23] MEDS: ASPIRIN 81MG ENTERIC TABLET PO SCH (19:44)
[2023-03-23] MEDS: TAMSULOSIN 0.4 MG CAP PO SCH (19:44)
[2023-03-24] VITALS (13 sets, daily range): BP systolic 122–177; BP diastolic 59–91; TEMP 97.7–98.3; O2SAT 92–99
[2023-03-24] MEDS: LEVOTHYROXINE 88MCG TABLET (0.088 MG) PO SCH (05:34)
[2023-03-24] MEDS: fentaNYL 100 MCG/2 ML INJECTION IV PRN (05:34)
[2023-03-24 05:46] LABS: BASO % 0.2 % (0.0-1.0); EOS % 0.2 % (0.0-3.0); HEMATOCRIT 26.4 % (42.0-52.0); HEMOGLOBIN 8.7 g/dl (13.5-17.5); LYMPH # 0.5 10^3/uL (1.5-5.0); LYMPH % 6.3 % (24.0-44.0); MEAN CORPUSCULAR HEMOGLOBIN 31.4 pg (27.0-33.0); MEAN CORPUSCULAR VOLUME 95.3 fl (80.0-96.0); MONO # 0.7 10^3/uL (0.0-0.8); MONO % 8.2 % (2.0-8.0); NEUTROPHILS # 6.7 10^3/uL (1.5-8.5); NEUTROPHILS % 83.2 % (36.0-66.0); PLATELET COUNT, AUTOMATED 133 10^3/uL (150-450); RED BLOOD COUNT 2.77 10^6/uL (4.30-6.10); WHITE BLOOD COUNT 8.1 10^3/uL (4.0-10.0)
[2023-03-24 05:55] LABS: ALBUMIN 2.6 G/DL (3.2-5.2); BILIRUBIN,TOTAL 0.5 MG/DL (0.3-1.2); CALCIUM LEVEL 8.7 MG/DL (8.3-10.6); CREATININE FOR GFR 3.04 MG/DL (0.70-1.30); GLOMERULAR FILTRATION RATE 21.3 (>42); POTASSIUM SERUM 4.2 MMOL/L (3.5-5.1); TOTAL PROTEIN 4.9 G/DL (5.7-8.2)
[2023-03-24] MEDS: LANTHANUM CARBONATE 500MG CHEW TABLET PO SCH ×3 (08:00→17:25)
[2023-03-24] MEDS: atenoloL 50 MG TAB PO SCH (08:08)
[2023-03-24] MEDS: allopurinoL 100 MG TAB PO SCH (08:08)
[2023-03-24] MEDS: TORSEMIDE (DEMADEX) 50 MG PER 1/2 TAB PO SCH ×2 (08:08→17:25)
[2023-03-24] MEDS: ATORVASTATIN 20 MG TAB PO SCH (08:08)
[2023-03-24] MEDS: PANTOPRAZOLE 40MG TAB (PROTONIX) PO SCH (08:09)
[2023-03-24] MEDS: LIDOCAINE 5% (LIDODERM) PATCH TD SCH ×2 (09:31→09:32)
[2023-03-24] MEDS: NS 1,000 ML IV SCH (17:26)
[2023-03-24] MEDS: ASPIRIN 81MG ENTERIC TABLET PO SCH (21:32)
[2023-03-24] MEDS: TAMSULOSIN 0.4 MG CAP PO SCH (21:32)
[2023-03-25] VITALS (7 sets, daily range): BP systolic 129–152; BP diastolic 63–80; TEMP 96–98.4; O2SAT 94–99
[2023-03-25] MEDS: fentaNYL 100 MCG/2 ML INJECTION IV PRN (04:33)
[2023-03-25] MEDS ORDERED: HEPARIN 1,000UNITS/ML 10ML VIAL (FOR RADIOLOGY & DIALYSIS ONLY) IV PRN ×2 (06:00→12:35)
[2023-03-25] MEDS ORDERED: SODIUM CHLORIDE 0.9% 1000ML IV PRN ×2 (06:00→12:35)
[2023-03-25] MEDS: LEVOTHYROXINE 88MCG TABLET (0.088 MG) PO SCH (06:09)
[2023-03-25 08:07] LABS: BASO % 0.3 % (0.0-1.0); EOS # 0.1 10^3/uL (0.0-0.5); EOS % 0.9 % (0.0-3.0); HEMATOCRIT 25.7 % (42.0-52.0); HEMOGLOBIN 8.6 g/dl (13.5-17.5); LYMPH # 0.5 10^3/uL (1.5-5.0); LYMPH % 7.7 % (24.0-44.0); MEAN CORPUSCULAR HEMOGLOBIN 32.5 pg (27.0-33.0); MEAN CORPUSCULAR HGB CONC 33.5 g/dl (32.0-36.5); MONO # 0.5 10^3/uL (0.0-0.8); NEUTROPHILS # 5.5 10^3/uL (1.5-8.5); NEUTROPHILS % 80.7 % (36.0-66.0); PLATELET COUNT, AUTOMATED 114 10^3/uL (150-450); RED BLOOD COUNT 2.65 10^6/uL (4.30-6.10); WHITE BLOOD COUNT 6.8 10^3/uL (4.0-10.0)
[2023-03-25 08:36] LABS: ALBUMIN 2.4 G/DL (3.2-5.2); BILIRUBIN,DIRECT 0.2 MG/DL (<0.4); BILIRUBIN,TOTAL 0.4 MG/DL (0.3-1.2); CALCIUM LEVEL 8.5 MG/DL (8.3-10.6); CREATININE FOR GFR 4.31 MG/DL (0.70-1.30); GLOMERULAR FILTRATION RATE 14.2 (>42); MAGNESIUM LEVEL 1.6 MG/DL (1.8-2.4); PHOSPHORUS LEVEL 5.2 MG/DL (2.4-5.1); POTASSIUM SERUM 4.5 MMOL/L (3.5-5.1); TOTAL PROTEIN 4.8 G/DL (5.7-8.2)
[2023-03-25] MEDS: allopurinoL 100 MG TAB PO SCH (09:16)
[2023-03-25] MEDS: TORSEMIDE (DEMADEX) 50 MG PER 1/2 TAB PO SCH ×2 (09:16→17:55)
[2023-03-25] MEDS: PANTOPRAZOLE 40MG TAB (PROTONIX) PO SCH (09:16)
[2023-03-25] MEDS: ATORVASTATIN 20 MG TAB PO SCH (09:17)
[2023-03-25] MEDS: atenoloL 50 MG TAB PO SCH (09:17)
[2023-03-25] MEDS: LIDOCAINE 5% (LIDODERM) PATCH TD SCH ×2 (09:18→09:21)
[2023-03-25] MEDS: LANTHANUM CARBONATE 500MG CHEW TABLET PO SCH ×3 (09:23→17:55)
[2023-03-25] MEDS: traMADol 50 MG TAB PO PRN ×2 (10:18→18:40)
[2023-03-25] MEDS ORDERED: GENTAMICIN 80 MG in IV 1 EA IV ONE (12:00)
[2023-03-25] MEDS: BACITRACIN OINTMENT 30GM TUBE TOP SCH (12:00)
[2023-03-25] MEDS ORDERED: VANCOMYCIN HCL 1,000 MG, VIAL MATE ADAPTER 1 EACH in D5W 250 ML IV ONE (12:00)
[2023-03-25] MEDS ORDERED: LIDOCAINE 1% MDV 20ML VIAL IM ONE (14:10)
[2023-03-25] MEDS ORDERED: HEPARIN 1,000UNITS/ML 10ML VIAL (FOR RADIOLOGY & DIALYSIS ONLY) IV STA (16:20)
[2023-03-25] MEDS: TAMSULOSIN 0.4 MG CAP PO SCH (21:35)
[2023-03-25] MEDS: ASPIRIN 81MG ENTERIC TABLET PO SCH (21:35)
[2023-03-26] MEDS ORDERED: PILL CUTTER 1 EACH XX ONE (01:25)
[2023-03-26] MEDS: ACETAMINOPHEN TAB 650MG DOSE (2X325MG) PO PRN ×2 (01:30→13:27)
[2023-03-26] MEDS: ALPRAZolam 0.25 MG TAB PO PRN (01:30)
[2023-03-26 03:41] VITALS: TEMP 98.2; O2SAT 95
[2023-03-26 05:43] LABS: BASO % 0.2 % (0.0-1.0); EOS # 0.1 10^3/uL (0.0-0.5); EOS % 2.2 % (0.0-3.0); HEMATOCRIT 23.4 % (42.0-52.0); HEMOGLOBIN 7.6 g/dl (13.5-17.5); LYMPH # 0.6 10^3/uL (1.5-5.0); LYMPH % 9.9 % (24.0-44.0); MEAN CORPUSCULAR HEMOGLOBIN 32.2 pg (27.0-33.0); MEAN CORPUSCULAR HGB CONC 32.5 g/dl (32.0-36.5); MEAN CORPUSCULAR VOLUME 99.2 fl (80.0-96.0); MONO # 0.5 10^3/uL (0.0-0.8); MONO % 8.5 % (2.0-8.0); NEUTROPHILS # 4.3 10^3/uL (1.5-8.5); NEUTROPHILS % 77.6 % (36.0-66.0); PLATELET COUNT, AUTOMATED 110 10^3/uL (150-450); RED BLOOD COUNT 2.36 10^6/uL (4.30-6.10); WHITE BLOOD COUNT 5.5 10^3/uL (4.0-10.0)
[2023-03-26] MEDS: LANTHANUM CARBONATE 500MG CHEW TABLET PO SCH ×3 (05:50→17:38)
[2023-03-26] MEDS: allopurinoL 100 MG TAB PO SCH ×2 (05:50→13:26)
[2023-03-26] MEDS: LEVOTHYROXINE 88MCG TABLET (0.088 MG) PO SCH (05:50)
[2023-03-26] MEDS: fentaNYL 100 MCG/2 ML INJECTION IV PRN (05:55)
[2023-03-26] MEDS: BACITRACIN OINTMENT 30GM TUBE TOP SCH (05:59)
[2023-03-26] MEDS ORDERED: HEPARIN 1,000UNITS/ML 10ML VIAL (FOR RADIOLOGY & DIALYSIS ONLY) IV PRN (06:00)
[2023-03-26] MEDS ORDERED: SODIUM CHLORIDE 0.9% 1000ML IV PRN (06:00)
[2023-03-26 06:19] LABS: ALBUMIN 2.2 G/DL (3.2-5.2); BILIRUBIN,DIRECT 0.2 MG/DL (<0.4); BILIRUBIN,TOTAL 0.4 MG/DL (0.3-1.2); CREATININE FOR GFR 5.21 MG/DL (0.70-1.30); GLOMERULAR FILTRATION RATE 11.4 (>42); MAGNESIUM LEVEL 1.5 MG/DL (1.8-2.4); PHOSPHORUS LEVEL 5.2 MG/DL (2.4-5.1); POTASSIUM SERUM 4.4 MMOL/L (3.5-5.1); TOTAL PROTEIN 4.4 G/DL (5.7-8.2)
[2023-03-26] MEDS ORDERED: ALBUTEROL 90 MCG/ACT 8GM HFA INHALER INH PRN (07:15)
[2023-03-26 07:57] VITALS: BP 142/58; TEMP 97.2; O2SAT 95
[2023-03-26] MEDS ORDERED: PILL CUTTER 1 EACH XX PRN (09:05)
[2023-03-26] MEDS: TORSEMIDE (DEMADEX) 50 MG PER 1/2 TAB PO SCH ×2 (12:56→17:38)
[2023-03-26 13:15] VITALS: BP 128/68; TEMP 96.9; O2SAT 96
[2023-03-26] MEDS: ATORVASTATIN 20 MG TAB PO SCH (13:26)
[2023-03-26] MEDS: SENOKOT S TAB PO SCH (13:26)
[2023-03-26] MEDS: atenoloL 50 MG TAB PO SCH (13:27)
[2023-03-26] MEDS: PANTOPRAZOLE 40MG TAB (PROTONIX) PO SCH (13:27)
[2023-03-26] MEDS: LIDOCAINE 5% (LIDODERM) PATCH TD SCH ×2 (13:28)
[2023-03-26] MEDS: CEFDINIR 300 MG CAP (OMNICEF) PO SCH (17:38)
[2023-03-26 19:27] VITALS: BP 124/76; TEMP 97; O2SAT 95
[2023-03-26] MEDS: TAMSULOSIN 0.4 MG CAP PO SCH (20:01)
[2023-03-26] MEDS: ASPIRIN 81MG ENTERIC TABLET PO SCH (20:01)
[2023-03-26 23:13] VITALS: BP 161/72; TEMP 97.8; O2SAT 94
[2023-03-26] MEDS: traMADol 50 MG TAB PO PRN (23:44)
[2023-03-27 03:22] VITALS: BP 163/72; TEMP 97.4; O2SAT 95
[2023-03-27 04:26] LABS: BASO % 0.3 % (0.0-1.0); EOS # 0.1 10^3/uL (0.0-0.5); EOS % 1.7 % (0.0-3.0); HEMOGLOBIN 8.4 g/dl (13.5-17.5); LYMPH # 0.6 10^3/uL (1.5-5.0); LYMPH % 9.9 % (24.0-44.0); MEAN CORPUSCULAR HEMOGLOBIN 32.3 pg (27.0-33.0); MEAN CORPUSCULAR HGB CONC 32.3 g/dl (32.0-36.5); MONO # 0.5 10^3/uL (0.0-0.8); MONO % 8.8 % (2.0-8.0); NEUTROPHILS # 4.7 10^3/uL (1.5-8.5); NEUTROPHILS % 77.5 % (36.0-66.0); PLATELET COUNT, AUTOMATED 116 10^3/uL (150-450)
[2023-03-27 04:50] LABS: ALBUMIN 2.4 G/DL (3.2-5.2); BILIRUBIN,DIRECT 0.2 MG/DL (<0.4); BILIRUBIN,TOTAL 0.5 MG/DL (0.3-1.2); CALCIUM LEVEL 8.1 MG/DL (8.3-10.6); CREATININE FOR GFR 4.13 MG/DL (0.70-1.30); GLOMERULAR FILTRATION RATE 14.9 (>42); MAGNESIUM LEVEL 1.6 MG/DL (1.8-2.4); PHOSPHORUS LEVEL 5.1 MG/DL (2.4-5.1); POTASSIUM SERUM 4.2 MMOL/L (3.5-5.1); TOTAL PROTEIN 4.9 G/DL (5.7-8.2)
[2023-03-27] MEDS ORDERED: DESMOPRESSIN ACETATE IV ONE (05:00)
[2023-03-27] MEDS ORDERED: NS IV ONE (05:00)
[2023-03-27] MEDS: LEVOTHYROXINE 88MCG TABLET (0.088 MG) PO SCH (05:25)
[2023-03-27] MEDS: traMADol 50 MG TAB PO PRN ×2 (07:35→16:53)
[2023-03-27 07:43] VITALS: BP 141/65; TEMP 97.5; O2SAT 96
[2023-03-27] MEDS ORDERED: SODIUM CHLORIDE 0.9% 1000ML IV PRN (08:00)
[2023-03-27] MEDS ORDERED: HEPARIN 1,000UNITS/ML 10ML VIAL (FOR RADIOLOGY & DIALYSIS ONLY) IV PRN (08:00)
[2023-03-27] MEDS ORDERED: HEPARIN 1,000UNITS/ML 10ML VIAL (FOR RADIOLOGY & DIALYSIS ONLY) XX SCH (08:00)
[2023-03-27] MEDS: LANTHANUM CARBONATE 500MG CHEW TABLET PO SCH ×3 (08:27→18:06)
[2023-03-27] MEDS: MAG SULF 1GM/100ML (MAG RUN) 1 GM in IV 1 EA IV SCH ×2 (08:27→10:30)
[2023-03-27] MEDS: ATORVASTATIN 20 MG TAB PO SCH (08:28)
[2023-03-27] MEDS: TORSEMIDE (DEMADEX) 50 MG PER 1/2 TAB PO SCH ×2 (08:28→16:32)
[2023-03-27] MEDS: PANTOPRAZOLE 40MG TAB (PROTONIX) PO SCH (08:29)
[2023-03-27] MEDS: atenoloL 50 MG TAB PO SCH (08:29)
[2023-03-27] MEDS: SENOKOT S TAB PO SCH (08:29)
[2023-03-27] MEDS: allopurinoL 100 MG TAB PO SCH (08:31)
[2023-03-27] MEDS: LIDOCAINE 5% (LIDODERM) PATCH TD SCH ×2 (08:31)
[2023-03-27] MEDS: BACITRACIN OINTMENT 30GM TUBE TOP SCH (08:32)
[2023-03-27] MEDS ORDERED: LIDOCAINE 1% MDV 20ML VIAL SC ONE (13:00)
[2023-03-27] MEDS ORDERED: DARBEPOETIN 100MCG/0.5ML *DIALYSIS* SYRINGE IV SCH (13:55)
[2023-03-27] MEDS: guaiFENesin 200 MG TAB PO SCH ×3 (15:44→23:46)
[2023-03-27 15:54] VITALS: BP 128/61; TEMP 96.8; O2SAT 95
[2023-03-27] MEDS: CEFDINIR 300 MG CAP (OMNICEF) PO SCH (16:32)
[2023-03-27 19:24] VITALS: BP 147/65; TEMP 97.8; O2SAT 98
[2023-03-27] MEDS: ACETAMINOPHEN TAB 650MG DOSE (2X325MG) PO PRN (20:10)
[2023-03-27] MEDS: ALPRAZolam 0.25 MG TAB PO PRN (20:11)
[2023-03-27] MEDS: TAMSULOSIN 0.4 MG CAP PO SCH (20:11)
[2023-03-27] MEDS: ASPIRIN 81MG ENTERIC TABLET PO SCH (20:11)
[2023-03-27] MEDS: HEPARIN SOD (PORCINE) 5000UNITS/ML 1ML VIAL/SYRINGE SQ SCH (20:12)
[2023-03-27 23:13] VITALS: BP 139/68; TEMP 97; O2SAT 96
[2023-03-28 03:32] VITALS: BP 162/72; TEMP 97.5; O2SAT 98
[2023-03-28] MEDS: traMADol 50 MG TAB PO PRN (03:41)
[2023-03-28 05:42] LABS: BASO % 0.4 % (0.0-1.0); EOS # 0.1 10^3/uL (0.0-0.5); EOS % 1.4 % (0.0-3.0); HEMATOCRIT 25.4 % (42.0-52.0); HEMOGLOBIN 8.1 g/dl (13.5-17.5); LYMPH # 0.5 10^3/uL (1.5-5.0); LYMPH % 9.6 % (24.0-44.0); MEAN CORPUSCULAR HEMOGLOBIN 32.3 pg (27.0-33.0); MEAN CORPUSCULAR HGB CONC 31.9 g/dl (32.0-36.5); MEAN CORPUSCULAR VOLUME 101.2 fl (80.0-96.0); MONO # 0.6 10^3/uL (0.0-0.8); MONO % 12.2 % (2.0-8.0); NEUTROPHILS # 3.7 10^3/uL (1.5-8.5); NEUTROPHILS % 74.8 % (36.0-66.0); PLATELET COUNT, AUTOMATED 119 10^3/uL (150-450); RED BLOOD COUNT 2.51 10^6/uL (4.30-6.10)
[2023-03-28] MEDS: LEVOTHYROXINE 88MCG TABLET (0.088 MG) PO SCH (05:45)
[2023-03-28] MEDS: guaiFENesin 200 MG TAB PO SCH (05:45)
[2023-03-28 06:09] LABS: ALBUMIN 2.6 G/DL (3.2-5.2); BILIRUBIN,DIRECT 0.1 MG/DL (<0.4); BILIRUBIN,TOTAL 0.4 MG/DL (0.3-1.2); CALCIUM LEVEL 8.8 MG/DL (8.3-10.6); CREATININE FOR GFR 3.67 MG/DL (0.70-1.30); GLOMERULAR FILTRATION RATE 17.1 (>42); MAGNESIUM LEVEL 1.9 MG/DL (1.8-2.4); PHOSPHORUS LEVEL 4.9 MG/DL (2.4-5.1); TOTAL PROTEIN 5.3 G/DL (5.7-8.2)
[2023-03-28 08:01] VITALS: BP 144/68; TEMP 97.8; O2SAT 96
[2023-03-28] MEDS: LIDOCAINE 5% (LIDODERM) PATCH TD SCH ×2 (08:06)
[2023-03-28] MEDS: LANTHANUM CARBONATE 500MG CHEW TABLET PO SCH ×3 (08:07→17:38)
[2023-03-28] MEDS: SENOKOT S TAB PO SCH (08:07)
[2023-03-28] MEDS: TORSEMIDE (DEMADEX) 50 MG PER 1/2 TAB PO SCH ×2 (08:07→17:38)
[2023-03-28] MEDS: ATORVASTATIN 20 MG TAB PO SCH (08:07)
[2023-03-28] MEDS: allopurinoL 100 MG TAB PO SCH (08:08)
[2023-03-28] MEDS: atenoloL 50 MG TAB PO SCH (08:08)
[2023-03-28] MEDS: HEPARIN SOD (PORCINE) 5000UNITS/ML 1ML VIAL/SYRINGE SQ SCH ×2 (08:11→19:43)
[2023-03-28] MEDS: PANTOPRAZOLE 40MG TAB (PROTONIX) PO SCH (08:11)
[2023-03-28] MEDS: BACITRACIN OINTMENT 30GM TUBE TOP SCH (09:00)
[2023-03-28] MEDS ORDERED: PATIROMER SORBITEX CALCIUM 8.4 GM POWDER PACKET (VELTASSA) PO ONE (11:00)
[2023-03-28 16:47] VITALS: BP 139/65; TEMP 97.7; O2SAT 97
[2023-03-28 19:18] VITALS: BP 148/70; TEMP 97.5; O2SAT 96
[2023-03-28] MEDS: TAMSULOSIN 0.4 MG CAP PO SCH (19:42)
[2023-03-28] MEDS: ALPRAZolam 0.25 MG TAB PO PRN (19:42)
[2023-03-28] MEDS: ASPIRIN 81MG ENTERIC TABLET PO SCH (19:42)
[2023-03-28] MEDS: ACETAMINOPHEN TAB 650MG DOSE (2X325MG) PO PRN (19:44)
[2023-03-29] MEDS: traMADol 50 MG TAB PO PRN (01:18)
[2023-03-29] MEDS: LEVOTHYROXINE 88MCG TABLET (0.088 MG) PO SCH ×2 (05:13→05:31)
[2023-03-29 05:19] VITALS: BP 163/83; TEMP 97.4; O2SAT 96
[2023-03-29] MEDS: ACETAMINOPHEN TAB 650MG DOSE (2X325MG) PO PRN (05:31)
[2023-03-29 07:32] LABS: BASO % 0.2 % (0.0-1.0); EOS # 0.1 10^3/uL (0.0-0.5); EOS % 1.1 % (0.0-3.0); HEMATOCRIT 23.9 % (42.0-52.0); HEMOGLOBIN 7.7 g/dl (13.5-17.5); LYMPH # 0.5 10^3/uL (1.5-5.0); LYMPH % 9.8 % (24.0-44.0); MEAN CORPUSCULAR HEMOGLOBIN 32.5 pg (27.0-33.0); MEAN CORPUSCULAR HGB CONC 32.2 g/dl (32.0-36.5); MEAN CORPUSCULAR VOLUME 100.8 fl (80.0-96.0); MONO # 0.7 10^3/uL (0.0-0.8); MONO % 13.2 % (2.0-8.0); NEUTROPHILS # 3.9 10^3/uL (1.5-8.5); NEUTROPHILS % 74.2 % (36.0-66.0); PLATELET COUNT, AUTOMATED 119 10^3/uL (150-450); RED BLOOD COUNT 2.37 10^6/uL (4.30-6.10); WHITE BLOOD COUNT 5.3 10^3/uL (4.0-10.0)
[2023-03-29 07:56] LABS: CREATININE FOR GFR 5.18 MG/DL (0.70-1.30); GLOMERULAR FILTRATION RATE 11.5 (>42); MAGNESIUM LEVEL 1.8 MG/DL (1.8-2.4); POTASSIUM SERUM 4.4 MMOL/L (3.5-5.1)
[2023-03-29 08:11] VITALS: BP 137/70; TEMP 96.9; O2SAT 97
[2023-03-29] MEDS: ATORVASTATIN 20 MG TAB PO SCH (08:36)
[2023-03-29] MEDS: LANTHANUM CARBONATE 500MG CHEW TABLET PO SCH ×3 (08:36→17:01)
[2023-03-29] MEDS: TORSEMIDE (DEMADEX) 50 MG PER 1/2 TAB PO SCH ×2 (08:36→17:01)
[2023-03-29] MEDS: PANTOPRAZOLE 40MG TAB (PROTONIX) PO SCH (08:36)
[2023-03-29] MEDS: SENOKOT S TAB PO SCH (08:37)
[2023-03-29] MEDS: allopurinoL 100 MG TAB PO SCH (08:37)
[2023-03-29] MEDS: atenoloL 50 MG TAB PO SCH (08:37)
[2023-03-29] MEDS: BACITRACIN OINTMENT 30GM TUBE TOP SCH (08:38)
[2023-03-29] MEDS: LIDOCAINE 5% (LIDODERM) PATCH TD SCH ×2 (08:52→08:53)
[2023-03-29 12:01] VITALS: BP 127/63; TEMP 98; O2SAT 9
[2023-03-29] MEDS ORDERED: LIDOCAINE W/EPINEPHRINE 1% 20ML VIAL As Ordered ONE (14:28)
[2023-03-29] MEDS ORDERED: LIDOCAINE 1% MDV 20ML VIAL As Ordered ONE (14:28)
[2023-03-29] MEDS ORDERED: HEPARIN 1,000UNITS/ML 10ML VIAL (FOR RADIOLOGY & DIALYSIS ONLY) As Ordered ONE (14:28)
[2023-03-29] MEDS ORDERED: fentaNYL 100 MCG/2 ML INJECTION As Ordered ONE (14:28)
[2023-03-29] MEDS ORDERED: MIDAZOLAM INJ 2MG/2ML VIAL As Ordered ONE (14:28)
[2023-03-29 16:07] VITALS: BP 142/65; TEMP 97.9; O2SAT 95
[2023-03-29 16:30] VITALS: BP 144/66; TEMP 97.3; O2SAT 92
[2023-03-29 19:32] VITALS: BP 158/70; TEMP 97.6; O2SAT 98
[2023-03-29] MEDS: ASPIRIN 81MG ENTERIC TABLET PO SCH (21:01)
[2023-03-29] MEDS: TAMSULOSIN 0.4 MG CAP PO SCH (21:01)
[2023-03-29] MEDS: SODIUM CHLORIDE NASAL 0.65% SPRAY BTL (OCEAN) SCH (21:45)
[2023-03-30] VITALS (9 sets, daily range): BP systolic 126–169; BP diastolic 57–80; TEMP 97.6–98.2; O2SAT 94–98
[2023-03-30] MEDS: traMADol 50 MG TAB PO PRN ×2 (02:02→12:06)
[2023-03-30] MEDS: LEVOTHYROXINE 88MCG TABLET (0.088 MG) PO SCH (06:33)
[2023-03-30 06:48] LABS: BASO % 0.4 % (0.0-1.0); EOS # 0.1 10^3/uL (0.0-0.5); EOS % 0.7 % (0.0-3.0); HEMATOCRIT 26.5 % (42.0-52.0); HEMOGLOBIN 8.4 g/dl (13.5-17.5); LYMPH # 0.5 10^3/uL (1.5-5.0); LYMPH % 7.5 % (24.0-44.0); MEAN CORPUSCULAR HEMOGLOBIN 32.1 pg (27.0-33.0); MEAN CORPUSCULAR HGB CONC 31.7 g/dl (32.0-36.5); MEAN CORPUSCULAR VOLUME 101.1 fl (80.0-96.0); MONO # 0.7 10^3/uL (0.0-0.8); MONO % 10.9 % (2.0-8.0); NEUTROPHILS # 5.3 10^3/uL (1.5-8.5); NEUTROPHILS % 79.3 % (36.0-66.0); PLATELET COUNT, AUTOMATED 143 10^3/uL (150-450); RED BLOOD COUNT 2.62 10^6/uL (4.30-6.10); WHITE BLOOD COUNT 6.7 10^3/uL (4.0-10.0)
[2023-03-30] MEDS ORDERED: HEPARIN 1,000UNITS/ML 10ML VIAL (FOR RADIOLOGY & DIALYSIS ONLY) XX SCH (07:15)
[2023-03-30] MEDS ORDERED: HEPARIN 1,000UNITS/ML 10ML VIAL (FOR RADIOLOGY & DIALYSIS ONLY) IV PRN (07:15)
[2023-03-30] MEDS ORDERED: SODIUM CHLORIDE 0.9% 1000ML IV PRN (07:15)
[2023-03-30 07:20] LABS: ALBUMIN 2.6 G/DL (3.2-5.2); CALCIUM LEVEL 8.6 MG/DL (8.3-10.6); CREATININE FOR GFR 6.04 MG/DL (0.70-1.30); GLOMERULAR FILTRATION RATE 9.6 (>42); MAGNESIUM LEVEL 1.8 MG/DL (1.8-2.4); PHOSPHORUS LEVEL 5.9 MG/DL (2.4-5.1); POTASSIUM SERUM 4.8 MMOL/L (3.5-5.1)
[2023-03-30] MEDS: LIDOCAINE 5% (LIDODERM) PATCH TD SCH ×2 (08:28)
[2023-03-30] MEDS: allopurinoL 100 MG TAB PO SCH (08:29)
[2023-03-30] MEDS: TORSEMIDE (DEMADEX) 50 MG PER 1/2 TAB PO SCH ×2 (08:29→18:26)
[2023-03-30] MEDS: ATORVASTATIN 20 MG TAB PO SCH (08:29)
[2023-03-30] MEDS: LANTHANUM CARBONATE 500MG CHEW TABLET PO SCH ×3 (08:29→18:27)
[2023-03-30] MEDS: SENOKOT S TAB PO SCH (08:30)
[2023-03-30] MEDS: BACITRACIN OINTMENT 30GM TUBE TOP SCH (08:32)
[2023-03-30] MEDS: atenoloL 50 MG TAB PO SCH (08:32)
[2023-03-30] MEDS: SODIUM CHLORIDE NASAL 0.65% SPRAY BTL (OCEAN) SCH ×2 (08:32→20:49)
[2023-03-30] MEDS: PANTOPRAZOLE 40MG TAB (PROTONIX) PO SCH (08:33)
[2023-03-30] MEDS: ACETAMINOPHEN TAB 650MG DOSE (2X325MG) PO PRN (08:34)
[2023-03-30] MEDS ORDERED: APIXABAN 5 MG TAB (ELIQUIS) PO SCH (09:00)
[2023-03-30] MEDS: CEFDINIR 300 MG CAP (OMNICEF) PO SCH (18:26)
[2023-03-30] MEDS: TAMSULOSIN 0.4 MG CAP PO SCH (20:49)
[2023-03-30] MEDS: ASPIRIN 81MG ENTERIC TABLET PO SCH (20:49)
[2023-03-30] MEDS: APIXABAN 5 MG TAB (ELIQUIS) PO SCH (20:49)
[2023-03-31] MEDS: traMADol 50 MG TAB PO PRN (02:24)
[2023-03-31 04:17] VITALS: BP 160/85; TEMP 98.4; O2SAT 96
[2023-03-31] MEDS: LEVOTHYROXINE 88MCG TABLET (0.088 MG) PO SCH (06:14)
[2023-03-31 07:17] LABS: BASO % 0.5 % (0.0-1.0); EOS # 0.1 10^3/uL (0.0-0.5); EOS % 0.9 % (0.0-3.0); HEMATOCRIT 27.9 % (42.0-52.0); LYMPH # 0.4 10^3/uL (1.5-5.0); LYMPH % 7.1 % (24.0-44.0); MEAN CORPUSCULAR HEMOGLOBIN 30.9 pg (27.0-33.0); MEAN CORPUSCULAR HGB CONC 32.3 g/dl (32.0-36.5); MEAN CORPUSCULAR VOLUME 95.9 fl (80.0-96.0); MONO # 0.7 10^3/uL (0.0-0.8); MONO % 12.1 % (2.0-8.0); NEUTROPHILS # 4.3 10^3/uL (1.5-8.5); NEUTROPHILS % 78.3 % (36.0-66.0); PLATELET COUNT, AUTOMATED 146 10^3/uL (150-450); RED BLOOD COUNT 2.91 10^6/uL (4.30-6.10); WHITE BLOOD COUNT 5.5 10^3/uL (4.0-10.0)
[2023-03-31 07:50] LABS: ALBUMIN 2.2 G/DL (3.2-5.2); CALCIUM LEVEL 8.3 MG/DL (8.3-10.6); CREATININE FOR GFR 3.71 MG/DL (0.70-1.30); GLOMERULAR FILTRATION RATE 16.9 (>42); MAGNESIUM LEVEL 1.7 MG/DL (1.8-2.4); PHOSPHORUS LEVEL 3.7 MG/DL (2.4-5.1); POTASSIUM SERUM 3.7 MMOL/L (3.5-5.1)
[2023-03-31] MEDS ORDERED: MAG SULF 1GM/100ML (MAG RUN) 100 ML IV SCH (08:00)
[2023-03-31 08:27] VITALS: BP 167/87; TEMP 98.2; O2SAT 94
[2023-03-31] MEDS: SENOKOT S TAB PO SCH (09:00)
[2023-03-31] MEDS ORDERED: CEFD300CAP PO (09:18)
[2023-03-31] MEDS: LIDOCAINE 5% (LIDODERM) PATCH TD SCH ×2 (09:38)
[2023-03-31] MEDS: ATORVASTATIN 20 MG TAB PO SCH (09:38)
[2023-03-31] MEDS: TORSEMIDE (DEMADEX) 50 MG PER 1/2 TAB PO SCH (09:38)
[2023-03-31] MEDS: allopurinoL 100 MG TAB PO SCH (09:39)
[2023-03-31 09:43] VITALS: BP 120/64
[2023-03-31] MEDS: atenoloL 50 MG TAB PO SCH (09:43)
[2023-03-31] MEDS: APIXABAN 5 MG TAB (ELIQUIS) PO SCH (09:43)
[2023-03-31] MEDS: PANTOPRAZOLE 40MG TAB (PROTONIX) PO SCH (09:44)
[2023-03-31] MEDS ORDERED: MAGNESIUM OXIDE 400MG TAB (MAG-OX) PO ONE (09:50)
[2023-03-31] MEDS: BACITRACIN OINTMENT 30GM TUBE TOP SCH (10:09)
[2023-03-31] MEDS: SODIUM CHLORIDE NASAL 0.65% SPRAY BTL (OCEAN) SCH (10:09)
[2023-03-31] MEDS: LANTHANUM CARBONATE 500MG CHEW TABLET PO SCH (10:09)
== END 2023-03-31 10:48 | DRG 919 ==
LOC: EDBD 01:53 → M ED 01:53 → M ED INP 08:45 → M ICU 10:12 → M PCU 03-24 15:35
PROVIDERS: ADMIT Internal Medicine Pulmonary Disease; ATTEND Internal Medicine
PROC: 0W9B30Z Drainage of Left Pleural Cavity with Drainage Device, Percutaneous Approach (ICD-10-PCS; principal; 2023-03-23)
PROC: 5A1D70Z Performance of Urinary Filtration, Intermittent, Less than 6 Hours Per Day (ICD-10-PCS; 2023-03-23)
PROC: 30233N1 Transfusion of Nonautologous Red Blood Cells into Peripheral Vein, Percutaneous Approach (ICD-10-PCS; 2023-03-23)
PROC: 06HM33Z Insertion of Infusion Device into Right Femoral Vein, Percutaneous Approach (ICD-10-PCS; 2023-03-25)
PROC: 0JH63XZ Insertion of Tunneled Vascular Access Device into Chest Subcutaneous Tissue and Fascia, Percutaneous Approach (ICD-10-PCS; 2023-03-29)
PROC: 02HV33Z Insertion of Infusion Device into Superior Vena Cava, Percutaneous Approach (ICD-10-PCS; 2023-03-29)
DX: J95.830 Postprocedural hemorrhage of a respiratory system organ or structure following a respiratory system procedure (principal); G93.41 Metabolic encephalopathy; N18.6 End stage renal disease; R57.8 Other shock; J96.01 Acute respiratory failure with hypoxia; D62 Acute posthemorrhagic anemia; I13.2 Hypertensive heart and chronic kidney disease with heart failure and with stage 5 chronic kidney disease, or end stage renal disease; I50.22 Chronic systolic (congestive) heart failure; E87.20 Acidosis, unspecified; I48.19 Other persistent atrial fibrillation; I69.354 Hemiplegia and hemiparesis following cerebral infarction affecting left non-dominant side; J98.11 Atelectasis; J90 Pleural effusion, not elsewhere classified; D68.32 Hemorrhagic disorder due to extrinsic circulating anticoagulants; T82.42XA Displacement of vascular dialysis catheter, initial encounter; E87.4 Mixed disorder of acid-base balance; J81.1 Chronic pulmonary edema; I16.9 Hypertensive crisis, unspecified; N39.0 Urinary tract infection, site not specified; I25.5 Ischemic cardiomyopathy; E03.9 Hypothyroidism, unspecified; I25.10 Atherosclerotic heart disease of native coronary artery without angina pectoris; R74.01 Elevation of levels of liver transaminase levels; Z66 Do not resuscitate; I49.5 Sick sinus syndrome; I25.2 Old myocardial infarction; I27.20 Pulmonary hypertension, unspecified; E78.5 Hyperlipidemia, unspecified; R73.03 Prediabetes; E83.39 Other disorders of phosphorus metabolism; N40.1 Benign prostatic hyperplasia with lower urinary tract symptoms; M10.9 Gout, unspecified; K21.9 Gastro-esophageal reflux disease without esophagitis; F41.9 Anxiety disorder, unspecified; E87.5 Hyperkalemia; B97.4 Respiratory syncytial virus as the cause of diseases classified elsewhere; D69.6 Thrombocytopenia, unspecified; B96.1 Klebsiella pneumoniae [K. pneumoniae] as the cause of diseases classified elsewhere; Y83.1 Surgical operation with implant of artificial internal device as the cause of abnormal reaction of the patient, or of later complication, without mention of misadventure at the time of the procedure; Z85.528 Personal history of other malignant neoplasm of kidney; Z90.5 Acquired absence of kidney; Z95.0 Presence of cardiac pacemaker; Z99.2 Dependence on renal dialysis; Z95.1 Presence of aortocoronary bypass graft; Z79.01 Long term (current) use of anticoagulants; Z79.82 Long term (current) use of aspirin; Z79.890 Hormone replacement therapy; Z79.899 Other long term (current) drug therapy; Z88.0 Allergy status to penicillin; Z88.1 Allergy status to other antibiotic agents; Z88.2 Allergy status to sulfonamides; Z88.8 Allergy status to other drugs, medicaments and biological substances

== ENCOUNTER 2023-04-08 15:16 | Inpatient (IN) | payer MEDICARE ==
[~2023-04-08] VITALS: Ht 188 cm; Wt 67.0 kg
[2023-04-08 16:44] LABS: BASO % 0.4 % (0.0-1.0); EOS # 0.1 10^3/uL (0.0-0.5); EOS % 1.4 % (0.0-3.0); HEMATOCRIT 29.8 % (42.0-52.0); HEMOGLOBIN 9.1 g/dl (13.5-17.5); LYMPH # 0.5 10^3/uL (1.5-5.0); LYMPH % 9.2 % (24.0-44.0); MEAN CORPUSCULAR HEMOGLOBIN 30.3 pg (27.0-33.0); MEAN CORPUSCULAR HGB CONC 30.5 g/dl (32.0-36.5); MEAN CORPUSCULAR VOLUME 99.3 fl (80.0-96.0); MONO # 0.6 10^3/uL (0.0-0.8); MONO % 11.3 % (2.0-8.0); NEUTROPHILS # 4.3 10^3/uL (1.5-8.5); NEUTROPHILS % 76.3 % (36.0-66.0); PLATELET COUNT, AUTOMATED 229 10^3/uL (150-450); WHITE BLOOD COUNT 5.7 10^3/uL (4.0-10.0)
[2023-04-08 16:58] LABS: CK-MB VALUE MASS < 1.0 NG/ML (<3.6); CPK CREATINE PHOSPHOKINASE 20 U/L (46-171)
[2023-04-08 17:03] LABS: THYROID STIMULATING HORMONE 5.239 uIU/ML (0.55-4.78)
[2023-04-08 17:04] LABS: ALBUMIN 2.3 G/DL (3.2-5.2); ALKALINE PHOSPHATASE 75 U/L (46-116); ALT/SGPT 30 U/L (7.0-40); AST/SGOT 28 U/L (<34); BILIRUBIN,DIRECT 0.2 MG/DL (<0.4); BILIRUBIN,TOTAL 0.3 MG/DL (0.3-1.2); BLOOD UREA NITROGEN 52 MG/DL (9-23); CALCIUM LEVEL 9.3 MG/DL (8.3-10.6); CARBON DIOXIDE LEVEL 30 MMOL/L (20-31); CHLORIDE LEVEL 101 MMOL/L (98-107); CREATININE FOR GFR 6.29 MG/DL (0.70-1.30); GLOMERULAR FILTRATION RATE 9.2 (>42); GLUCOSE, FASTING 181 MG/DL (74-106); POTASSIUM SERUM 4.3 MMOL/L (3.5-5.1); SODIUM LEVEL 138 MMOL/L (136-145); TOTAL PROTEIN 5.4 G/DL (5.7-8.2)
[2023-04-08 17:12] LABS: RSV AMPLIFICATION NEGATIVE (NEGATIVE)
[2023-04-08] MEDS: traMADol 50 MG TAB PO ONE (17:33)
[2023-04-08] MEDS ORDERED: MED REC IN PROGRESS XX SCH (18:30)
[2023-04-08] MEDS ORDERED: HOME MED LIST COMPLETE! XX SCH (19:10)
[2023-04-08] MEDS ORDERED: ALBUTEROL SULFATE 2.5MG/0.5ML INH NEB SOLN NEB PRN (19:15)
[2023-04-08] MEDS ORDERED: MOM 30ML SUSPENSION UDC PO PRN (19:15)
[2023-04-08] MEDS ORDERED: ALBUTEROL 90 MCG/ACT 8GM HFA INHALER INH PRN (19:15)
[2023-04-08] MEDS ORDERED: hydrALAZINE 20MG/ML 1ML VIAL IV PRN (19:30)
[2023-04-08] MEDS: TAMSULOSIN 0.4 MG CAP PO SCH (21:04)
[2023-04-08 22:33] VITALS: BP 160/77; TEMP 97.2; O2SAT 100
[2023-04-08] MEDS: TORSEMIDE (DEMADEX) 50 MG PER 1/2 TAB PO SCH (23:50)
[2023-04-09 00:09] VITALS: BP 141/72; TEMP 97.2
[2023-04-09 03:45] VITALS: BP 138/68; TEMP 96.2; O2SAT 97
[2023-04-09 05:32] LABS: HEMATOCRIT 30.5 % (42.0-52.0); HEMOGLOBIN 9.5 g/dl (13.5-17.5); MEAN CORPUSCULAR HEMOGLOBIN 30.8 pg (27.0-33.0); MEAN CORPUSCULAR HGB CONC 31.1 g/dl (32.0-36.5); PLATELET COUNT, AUTOMATED 210 10^3/uL (150-450); RED BLOOD COUNT 3.08 10^6/uL (4.30-6.10); WHITE BLOOD COUNT 4.8 10^3/uL (4.0-10.0)
[2023-04-09 05:48] LABS: CALCIUM LEVEL 8.8 MG/DL (8.3-10.6); CREATININE FOR GFR 6.83 MG/DL (0.70-1.30); GLOMERULAR FILTRATION RATE 8.4 (>42); POTASSIUM SERUM 4.6 MMOL/L (3.5-5.1)
[2023-04-09] MEDS: LEVOTHYROXINE 88MCG TABLET (0.088 MG) PO SCH (06:55)
[2023-04-09] MEDS: allopurinoL 100 MG TAB PO SCH (06:56)
[2023-04-09] MEDS: atenoloL 50 MG TAB PO SCH (06:56)
[2023-04-09] MEDS ORDERED: HEPARIN 1,000UNITS/ML 10ML VIAL (FOR RADIOLOGY & DIALYSIS ONLY) IV PRN (07:00)
[2023-04-09] MEDS ORDERED: SODIUM CHLORIDE 0.9% 1000ML IV PRN (07:00)
[2023-04-09] MEDS ORDERED: HEPARIN 1,000UNITS/ML 10ML VIAL (FOR RADIOLOGY & DIALYSIS ONLY) XX SCH (07:00)
[2023-04-09] MEDS: traMADol 50 MG TAB PO PRN (07:02)
[2023-04-09 07:52] LABS: MAGNESIUM LEVEL 1.5 MG/DL (1.8-2.4)
[2023-04-09 07:59] VITALS: BP 146/78; TEMP 97.5; O2SAT 95
[2023-04-09] MEDS: LANTHANUM CARBONATE 500MG CHEW TABLET PO SCH (08:00)
[2023-04-09] MEDS: PANTOPRAZOLE 40MG TAB (PROTONIX) PO SCH (08:31)
[2023-04-09] MEDS: SENOKOT S TAB PO SCH (08:32)
[2023-04-09] MEDS: LIDOCAINE 5% (LIDODERM) PATCH TD SCH ×2 (08:33→10:30)
[2023-04-09] MEDS: ATORVASTATIN 20 MG TAB PO SCH (08:38)
[2023-04-09] MEDS: MAG SULF 1GM/100ML (MAG RUN) 1 GM in IV 1 EA IV SCH (10:30)
[2023-04-09] MEDS ORDERED: hydrOXYzine 50 MG TAB PO PRN (11:25)
[2023-04-09] MEDS: ASPIRIN 81MG ENTERIC TABLET PO SCH (11:25)
[2023-04-09] MEDS: ACETAMINOPHEN TAB 650MG DOSE (2X325MG) PO PRN (11:28)
[2023-04-09 12:00] VITALS: BP 144/70; TEMP 97; O2SAT 100
[2023-04-09 17:12] VITALS: BP 136/63; TEMP 97.5; O2SAT 99
[2023-04-09 19:19] VITALS: BP 142/70; TEMP 98.2; O2SAT 97
[2023-04-09] MEDS: ACETAMINOPHEN *IV* 1,000 MG in IV 1 EA IV ONE (22:31)
[2023-04-09 23:50] LABS: CALCIUM LEVEL 9.1 MG/DL (8.3-10.6); CREATININE FOR GFR 3.78 MG/DL (0.70-1.30); FREE T4 1.08 NG/DL (0.89-1.76); GLOMERULAR FILTRATION RATE 16.5 (>42); MAGNESIUM LEVEL 1.7 MG/DL (1.8-2.4); POTASSIUM SERUM 4.1 MMOL/L (3.5-5.1)
[2023-04-10] MEDS: MAG SULF 1GM/100ML (MAG RUN) 1 GM in IV 1 EA IV ONE (00:17)
[2023-04-10 03:32] VITALS: BP 155/75; TEMP 97.5; O2SAT 97
[2023-04-10 06:30] LABS: BASO % 0.5 % (0.0-1.0); EOS # 0.1 10^3/uL (0.0-0.5); EOS % 1.1 % (0.0-3.0); HEMATOCRIT 30.6 % (42.0-52.0); HEMOGLOBIN 9.5 g/dl (13.5-17.5); LYMPH # 0.4 10^3/uL (1.5-5.0); LYMPH % 6.6 % (24.0-44.0); MEAN CORPUSCULAR HEMOGLOBIN 30.7 pg (27.0-33.0); MONO # 0.7 10^3/uL (0.0-0.8); NEUTROPHILS # 4.4 10^3/uL (1.5-8.5); NEUTROPHILS % 77.4 % (36.0-66.0); PLATELET COUNT, AUTOMATED 218 10^3/uL (150-450); RED BLOOD COUNT 3.09 10^6/uL (4.30-6.10); WHITE BLOOD COUNT 5.6 10^3/uL (4.0-10.0)
[2023-04-10 06:49] LABS: CREATININE FOR GFR 4.11 MG/DL (0.70-1.30); MAGNESIUM LEVEL 1.9 MG/DL (1.8-2.4)
[2023-04-10] MEDS ORDERED: SODIUM CHLORIDE 0.9% 1000ML IV PRN (06:50)
[2023-04-10] MEDS ORDERED: HEPARIN 1,000UNITS/ML 10ML VIAL (FOR RADIOLOGY & DIALYSIS ONLY) IV PRN (06:50)
[2023-04-10] MEDS ORDERED: HEPARIN 1,000UNITS/ML 10ML VIAL (FOR RADIOLOGY & DIALYSIS ONLY) XX SCH (06:50)
[2023-04-10 08:00] VITALS: BP 156/74; TEMP 96.9; O2SAT 98
[2023-04-10 11:49] VITALS: BP 180/78; TEMP 97.3; O2SAT 99
[2023-04-10 15:54] VITALS: BP 150/79; TEMP 97.6; O2SAT 99
[2023-04-10] MEDS: PANTOPRAZOLE 40MG VIAL IV SCH (18:07)
[2023-04-10 19:34] VITALS: BP 151/74; TEMP 97.4; O2SAT 99
[2023-04-10] MEDS: ASPIRIN 81MG CHEW TABLET PO SCH (21:15)
[2023-04-10 23:26] VITALS: BP 152/68; TEMP 97.3; O2SAT 99
[2023-04-11 03:36] VITALS: BP 151/70; TEMP 97.5; O2SAT 98
[2023-04-11 06:08] LABS: BASO % 0.5 % (0.0-1.0); EOS # 0.1 10^3/uL (0.0-0.5); EOS % 1.1 % (0.0-3.0); HEMATOCRIT 30.8 % (42.0-52.0); HEMOGLOBIN 9.7 g/dl (13.5-17.5); LYMPH # 0.4 10^3/uL (1.5-5.0); LYMPH % 6.3 % (24.0-44.0); MEAN CORPUSCULAR HEMOGLOBIN 30.2 pg (27.0-33.0); MEAN CORPUSCULAR HGB CONC 31.5 g/dl (32.0-36.5); MONO # 0.9 10^3/uL (0.0-0.8); MONO % 13.6 % (2.0-8.0); NEUTROPHILS # 4.9 10^3/uL (1.5-8.5); NEUTROPHILS % 76.8 % (36.0-66.0); PLATELET COUNT, AUTOMATED 244 10^3/uL (150-450); RED BLOOD COUNT 3.21 10^6/uL (4.30-6.10); WHITE BLOOD COUNT 6.3 10^3/uL (4.0-10.0)
[2023-04-11 06:30] LABS: ALBUMIN 2.3 G/DL (3.2-5.2); CALCIUM LEVEL 9.5 MG/DL (8.3-10.6); CREATININE FOR GFR 5.29 MG/DL (0.70-1.30); GLOMERULAR FILTRATION RATE 11.2 (>42); MAGNESIUM LEVEL 1.9 MG/DL (1.8-2.4); PHOSPHORUS LEVEL 3.9 MG/DL (2.4-5.1); POTASSIUM SERUM 4.2 MMOL/L (3.5-5.1)
[2023-04-11 07:40] VITALS: BP 144/74; TEMP 97.1; O2SAT 93
[2023-04-11] MEDS ORDERED: PANTOPRAZOLE 40MG TAB (PROTONIX) PO SCH (09:00)
[2023-04-11] MEDS ORDERED: PILL CUTTER 1 EACH XX PRN (10:05)
[2023-04-11 10:11] LABS: PROCALCITONIN 0.65 ng/ml
[2023-04-11 11:42] VITALS: BP 142/67; TEMP 97; O2SAT 98
[2023-04-11 15:32] VITALS: BP 139/69; TEMP 97.6; O2SAT 96
[2023-04-11 15:37] LABS: C REACTIVE PROTEIN QUANTITATIV 17.5 MG/DL (<1.0)
[2023-04-11] MEDS ORDERED: VANCOMYCIN HCL 750 MG, VIAL MATE ADAPTER 1 EACH in D5W 250 ML IV SCH (17:40)
[2023-04-11] MEDS: VANCOMYCIN HCL 750 MG, VIAL MATE ADAPTER 1 EACH in D5W 250 ML IV ONE ×2 (18:50→20:39)
[2023-04-11 19:12] VITALS: BP 170/74; TEMP 97.1; O2SAT 98
[2023-04-11] MEDS: MIRALAX *UNIT DOSE* 17GM PACKET PO PRN (20:42)
[2023-04-11] MEDS: LevoFLOXacin IV 750 MG in IV 1 EA IV ONE (21:29)
[2023-04-11 23:58] VITALS: BP 145/75; TEMP 97.6; O2SAT 97
[2023-04-12] VITALS (24 sets, daily range): BP systolic 121–169; BP diastolic 58–97; TEMP 96.5–97.5; O2SAT 96–100
[2023-04-12 04:19] LABS: BASO % 0.3 % (0.0-1.0); EOS # 0.1 10^3/uL (0.0-0.5); EOS % 1.2 % (0.0-3.0); HEMOGLOBIN 8.9 g/dl (13.5-17.5); LYMPH # 0.5 10^3/uL (1.5-5.0); LYMPH % 7.2 % (24.0-44.0); MEAN CORPUSCULAR HEMOGLOBIN 30.2 pg (27.0-33.0); MEAN CORPUSCULAR HGB CONC 31.8 g/dl (32.0-36.5); MEAN CORPUSCULAR VOLUME 94.9 fl (80.0-96.0); MONO # 0.9 10^3/uL (0.0-0.8); MONO % 13.6 % (2.0-8.0); NEUTROPHILS # 4.9 10^3/uL (1.5-8.5); NEUTROPHILS % 75.7 % (36.0-66.0); PLATELET COUNT, AUTOMATED 234 10^3/uL (150-450); RED BLOOD COUNT 2.95 10^6/uL (4.30-6.10); WHITE BLOOD COUNT 6.4 10^3/uL (4.0-10.0)
[2023-04-12 04:49] LABS: C REACTIVE PROTEIN QUANTITATIV 16.1 MG/DL (<1.0); VANCOMYCIN RANDOM 15.4 UG/ML
[2023-04-12 04:51] LABS: CREATININE FOR GFR 6.38 MG/DL (0.70-1.30); MAGNESIUM LEVEL 1.8 MG/DL (1.8-2.4); PHOSPHORUS LEVEL 3.8 MG/DL (2.4-5.1); POTASSIUM SERUM 4.2 MMOL/L (3.5-5.1)
[2023-04-12] MEDS ORDERED: HEPARIN 1,000UNITS/ML 10ML VIAL (FOR RADIOLOGY & DIALYSIS ONLY) IV PRN (07:05)
[2023-04-12] MEDS ORDERED: SODIUM CHLORIDE 0.9% 1000ML IV PRN (07:05)
[2023-04-12] MEDS ORDERED: HEPARIN 1,000UNITS/ML 10ML VIAL (FOR RADIOLOGY & DIALYSIS ONLY) XX SCH (07:05)
[2023-04-12] MEDS: OMEPRAZOLE 20MG CAP PO SCH (08:57)
[2023-04-12] MEDS: DOCUSATE SODIUM 100MG CAPSULE PO SCH (09:00)
[2023-04-12 09:22] LABS: INR 1.36; PROTHROMBIN TIME 16.4 SECONDS (12.5-14.5)
[2023-04-12 09:23] LABS: PARTIAL THROMBOPLASTIN TIME 37.8 SECONDS (24.8-34.2)
[2023-04-12] MEDS ORDERED: LEVALBUTEROL 1.25MG 0.5ML CONCENTRATE NEB NEB PRN (10:10)
[2023-04-12] MEDS ORDERED: MIDAZOLAM INJ 2MG/2ML VIAL As Ordered ONE (10:19)
[2023-04-12] MEDS ORDERED: flumazeniL 0.5MG/5ML VIAL As Ordered ONE (10:19)
[2023-04-12] MEDS ORDERED: LIDOCAINE 1% MDV 20ML VIAL As Ordered ONE (10:20)
[2023-04-12] MEDS: flumazeniL 0.5MG/5ML VIAL IV STA (10:26)
[2023-04-12] MEDS ORDERED: MIDAZOLAM INJ 2MG/2ML VIAL IV SCH (10:26)
[2023-04-12] MEDS: LIDOCAINE 1% MDV 20ML VIAL SC ONE (10:32)
[2023-04-12] MEDS: KETOROLAC 30 MG/ML 1ML VIAL IV SCH (11:00)
[2023-04-12] MEDS: LEVALBUTEROL 1.25MG 0.5ML CONCENTRATE NEB NEB SCH (11:45)
[2023-04-12] MEDS ORDERED: E-Z-PAQUE 96% w/w SUSP 176GM BTL As Ordered ONE (15:00)
[2023-04-12] MEDS ORDERED: VARIBAR NECTAR 40% w/v 240ML SUSP BTL As Ordered ONE (15:00)
[2023-04-12] MEDS ORDERED: BARIUM SULFATE 700 MG TABLET (E-Z-DISK) As Ordered ONE (15:00)
[2023-04-12] MEDS ORDERED: VARIBAR PUDDING 40% w/v 230ML TUBE As Ordered ONE (15:00)
[2023-04-12] MEDS: MOM 30ML SUSPENSION UDC PO SCH (16:34)
[2023-04-13] VITALS (7 sets, daily range): BP systolic 103–122; BP diastolic 53–65; TEMP 96.7–98.3; O2SAT 99–100
[2023-04-13 05:33] LABS: BASO % 0.2 % (0.0-1.0); EOS # 0.1 10^3/uL (0.0-0.5); HEMATOCRIT 28.2 % (42.0-52.0); HEMOGLOBIN 9.1 g/dl (13.5-17.5); LYMPH # 0.5 10^3/uL (1.5-5.0); LYMPH % 8.8 % (24.0-44.0); MEAN CORPUSCULAR HEMOGLOBIN 30.8 pg (27.0-33.0); MEAN CORPUSCULAR HGB CONC 32.3 g/dl (32.0-36.5); MEAN CORPUSCULAR VOLUME 95.6 fl (80.0-96.0); MONO # 0.7 10^3/uL (0.0-0.8); MONO % 11.7 % (2.0-8.0); NEUTROPHILS # 4.3 10^3/uL (1.5-8.5); NEUTROPHILS % 73.4 % (36.0-66.0); PLATELET COUNT, AUTOMATED 216 10^3/uL (150-450); RED BLOOD COUNT 2.95 10^6/uL (4.30-6.10); WHITE BLOOD COUNT 5.9 10^3/uL (4.0-10.0)
[2023-04-13 06:03] LABS: ABG BASE EXCESS -2.8 (-2.0-2.0); ABG HCO3 21.6 MMOL/L (22.0-26.0); ABG O2 SATURATION 99.3 % (95.0-99.0); ABG PARTIAL PRESSURE CO2 35.8 mmHg (35.0-45.0); ABG PARTIAL PRESSURE O2 165.4 mmHg (75.0-100.0); ABG STANDARD HCO3 22.2 MMOL/L. (22.0-26.0); ABG TOTAL CO2 22.7 MMOL/L (23.0-31.0); ABG pH (ARTERIAL) 7.399 UNITS (7.350-7.450)
[2023-04-13 06:05] LABS: C REACTIVE PROTEIN QUANTITATIV 12.2 MG/DL (<1.0)
[2023-04-13 06:06] LABS: VANCOMYCIN RANDOM 11.2 UG/ML
[2023-04-13 06:12] LABS: ALBUMIN 1.9 G/DL (3.2-5.2); CREATININE FOR GFR 7.08 MG/DL (0.70-1.30); MAGNESIUM LEVEL 1.9 MG/DL (1.8-2.4); POTASSIUM SERUM 5.1 MMOL/L (3.5-5.1)
[2023-04-13] MEDS ORDERED: HEPARIN 1,000UNITS/ML 10ML VIAL (FOR RADIOLOGY & DIALYSIS ONLY) IV PRN (06:35)
[2023-04-13] MEDS ORDERED: SODIUM CHLORIDE 0.9% 1000ML IV PRN (06:35)
[2023-04-13] MEDS: VANCOMYCIN HCL 500 MG in D5W MINI-BAG PLUS 100 ML IV ONE (08:04)
[2023-04-13] MEDS: DARBEPOETIN 200MCG/0.4ML *DIALYSIS* SYRINGE IV SCH (09:39)
[2023-04-13] MEDS: ONDANSETRON 4MG TAB PO PRN (12:10)
[2023-04-13] MEDS: PANTOPRAZOLE 40MG TAB (PROTONIX) PO SCH (14:15)
[2023-04-13] MEDS: BISACODYL 10MG SUPP PR PRN (14:15)
[2023-04-13] MEDS: VANCOMYCIN HCL 1,000 MG, VIAL MATE ADAPTER 1 EACH in D5W 250 ML IV SCH (16:58)
[2023-04-13] MEDS: LevoFLOXacin IV 500 MG in IV 1 EA IV SCH (21:02)
[2023-04-14] MEDS: hydrOXYzine 50 MG TAB PO PRN (01:22)
[2023-04-14] MEDS: PERCOCET 5MG/325MG TAB PO PRN (01:26)
[2023-04-14 03:46] VITALS: BP 112/57; TEMP 97.8; O2SAT 96
[2023-04-14 06:11] LABS: BASO % 0.5 % (0.0-1.0); EOS # 0.1 10^3/uL (0.0-0.5); EOS % 1.4 % (0.0-3.0); HEMOGLOBIN 8.5 g/dl (13.5-17.5); LYMPH # 0.4 10^3/uL (1.5-5.0); LYMPH % 7.4 % (24.0-44.0); MEAN CORPUSCULAR HEMOGLOBIN 30.5 pg (27.0-33.0); MEAN CORPUSCULAR HGB CONC 31.5 g/dl (32.0-36.5); MEAN CORPUSCULAR VOLUME 96.8 fl (80.0-96.0); MONO # 0.8 10^3/uL (0.0-0.8); MONO % 13.3 % (2.0-8.0); NEUTROPHILS # 4.2 10^3/uL (1.5-8.5); NEUTROPHILS % 73.7 % (36.0-66.0); PLATELET COUNT, AUTOMATED 221 10^3/uL (150-450); RED BLOOD COUNT 2.79 10^6/uL (4.30-6.10); WHITE BLOOD COUNT 5.7 10^3/uL (4.0-10.0)
[2023-04-14 06:32] LABS: C REACTIVE PROTEIN QUANTITATIV 10.7 MG/DL (<1.0)
[2023-04-14 06:33] LABS: VANCOMYCIN RANDOM 20.2 UG/ML
[2023-04-14 06:38] LABS: ALBUMIN 1.9 G/DL (3.2-5.2); CALCIUM LEVEL 8.8 MG/DL (8.3-10.6); CREATININE FOR GFR 4.51 MG/DL (0.70-1.30); GLOMERULAR FILTRATION RATE 13.5 (>42); MAGNESIUM LEVEL 1.8 MG/DL (1.8-2.4); PHOSPHORUS LEVEL 3.4 MG/DL (2.4-5.1); POTASSIUM SERUM 4.7 MMOL/L (3.5-5.1)
[2023-04-14 08:00] VITALS: BP 127/64; TEMP 97.4; O2SAT 98
[2023-04-14] MEDS: ALTEPLASE 2MG/2ML VIAL XX ONE (11:15)
[2023-04-14 12:44] VITALS: BP 148/60; TEMP 97.5; O2SAT 100
[2023-04-14 16:00] VITALS: BP 107/70; TEMP 98.1; O2SAT 99
[2023-04-14 19:24] VITALS: BP 105/54; TEMP 97.9; O2SAT 98
[2023-04-14 20:00] VITALS: BP 106/60; TEMP 97.4; O2SAT 100
[2023-04-15] VITALS (8 sets, daily range): BP systolic 98–144; BP diastolic 50–64; TEMP 97.2–98.4; O2SAT 95–100
[2023-04-15] MEDS: PERCOCET 5MG/325MG TAB PO PRN (02:28)
[2023-04-15 06:27] LABS: BASO % 0.7 % (0.0-1.0); EOS # 0.1 10^3/uL (0.0-0.5); EOS % 1.6 % (0.0-3.0); HEMATOCRIT 27.8 % (42.0-52.0); HEMOGLOBIN 8.7 g/dl (13.5-17.5); LYMPH # 0.5 10^3/uL (1.5-5.0); LYMPH % 8.4 % (24.0-44.0); MEAN CORPUSCULAR HGB CONC 31.3 g/dl (32.0-36.5); MEAN CORPUSCULAR VOLUME 95.9 fl (80.0-96.0); MONO # 0.7 10^3/uL (0.0-0.8); MONO % 11.4 % (2.0-8.0); NEUTROPHILS # 4.2 10^3/uL (1.5-8.5); NEUTROPHILS % 73.7 % (36.0-66.0); PLATELET COUNT, AUTOMATED 222 10^3/uL (150-450); WHITE BLOOD COUNT 5.7 10^3/uL (4.0-10.0)
[2023-04-15] MEDS ORDERED: SODIUM CHLORIDE 0.9% 1000ML IV PRN (06:40)
[2023-04-15 06:50] LABS: ALBUMIN 1.8 G/DL (3.2-5.2); CREATININE FOR GFR 5.7 MG/DL (0.70-1.30); GLOMERULAR FILTRATION RATE 10.3 (>42); MAGNESIUM LEVEL 1.8 MG/DL (1.8-2.4); PHOSPHORUS LEVEL 4.2 MG/DL (2.4-5.1); POTASSIUM SERUM 5.2 MMOL/L (3.5-5.1)
[2023-04-15] MEDS: LevoFLOXacin 500 MG TABLET PO SCH (21:23)
[2023-04-16] VITALS (8 sets, daily range): BP systolic 106–124; BP diastolic 62–70; TEMP 97.4–97.8; O2SAT 93–98
[2023-04-16 06:41] LABS: BASO % 0.5 % (0.0-1.0); EOS # 0.1 10^3/uL (0.0-0.5); EOS % 1.3 % (0.0-3.0); HEMOGLOBIN 8.7 g/dl (13.5-17.5); LYMPH # 0.5 10^3/uL (1.5-5.0); LYMPH % 8.4 % (24.0-44.0); MEAN CORPUSCULAR HGB CONC 32.2 g/dl (32.0-36.5); MEAN CORPUSCULAR VOLUME 96.1 fl (80.0-96.0); MONO # 0.7 10^3/uL (0.0-0.8); NEUTROPHILS # 4.6 10^3/uL (1.5-8.5); NEUTROPHILS % 74.9 % (36.0-66.0); PLATELET COUNT, AUTOMATED 240 10^3/uL (150-450); RED BLOOD COUNT 2.81 10^6/uL (4.30-6.10); WHITE BLOOD COUNT 6.1 10^3/uL (4.0-10.0)
[2023-04-16 07:09] LABS: C REACTIVE PROTEIN QUANTITATIV 10.9 MG/DL (<1.0)
[2023-04-16 07:16] LABS: ALBUMIN 1.8 G/DL (3.2-5.2); CALCIUM LEVEL 8.8 MG/DL (8.3-10.6); CREATININE FOR GFR 3.41 MG/DL (0.70-1.30); GLOMERULAR FILTRATION RATE 18.6 (>42); MAGNESIUM LEVEL 1.8 MG/DL (1.8-2.4); PHOSPHORUS LEVEL 3.2 MG/DL (2.4-5.1); POTASSIUM SERUM 4.3 MMOL/L (3.5-5.1)
[2023-04-16] MEDS: ALTEPLASE 2MG/2ML VIAL XX ONE (10:02)
[2023-04-16] MEDS: RAMELTEON 8 MG TAB (ROZEREM) PO SCH (21:56)
[2023-04-17] VITALS (8 sets, daily range): BP systolic 98–112; BP diastolic 50–68; TEMP 97.3–98.5; O2SAT 95–99
[2023-04-17] MEDS ORDERED: SODIUM CHLORIDE 0.9% 1000ML IV PRN (06:00)
[2023-04-17] MEDS ORDERED: HEPARIN 1,000UNITS/ML 10ML VIAL (FOR RADIOLOGY & DIALYSIS ONLY) IV PRN (06:00)
[2023-04-17 08:18] LABS: BASO % 0.4 % (0.0-1.0); EOS # 0.1 10^3/uL (0.0-0.5); EOS % 0.8 % (0.0-3.0); LYMPH # 0.4 10^3/uL (1.5-5.0); LYMPH % 5.3 % (24.0-44.0); MEAN CORPUSCULAR HEMOGLOBIN 30.2 pg (27.0-33.0); MEAN CORPUSCULAR VOLUME 97.3 fl (80.0-96.0); MONO # 0.6 10^3/uL (0.0-0.8); MONO % 8.1 % (2.0-8.0); NEUTROPHILS # 6.4 10^3/uL (1.5-8.5); NEUTROPHILS % 82.8 % (36.0-66.0); PLATELET COUNT, AUTOMATED 263 10^3/uL (150-450); RED BLOOD COUNT 2.98 10^6/uL (4.30-6.10); WHITE BLOOD COUNT 7.8 10^3/uL (4.0-10.0)
[2023-04-17 08:51] LABS: CALCIUM LEVEL 9.2 MG/DL (8.3-10.6); CREATININE FOR GFR 4.84 MG/DL (0.70-1.30); GLOMERULAR FILTRATION RATE 12.4 (>42); MAGNESIUM LEVEL 1.9 MG/DL (1.8-2.4); POTASSIUM SERUM 5.2 MMOL/L (3.5-5.1)
[2023-04-17] MEDS: MECLIZINE 25 MG TABLET PO PRN (09:03)
[2023-04-17] MEDS: MIRALAX *UNIT DOSE* 17GM PACKET PO SCH (15:21)
[2023-04-17] MEDS: BISACODYL 10MG SUPP PR SCH (15:21)
[2023-04-18] VITALS (12 sets, daily range): BP systolic 78–98; BP diastolic 40–60; TEMP 96.4–98; O2SAT 88–96
[2023-04-18 06:06] LABS: BASO % 0.3 % (0.0-1.0); EOS # 0.1 10^3/uL (0.0-0.5); EOS % 0.8 % (0.0-3.0); HEMATOCRIT 28.8 % (42.0-52.0); HEMOGLOBIN 9.1 g/dl (13.5-17.5); LYMPH # 0.4 10^3/uL (1.5-5.0); LYMPH % 4.5 % (24.0-44.0); MEAN CORPUSCULAR HEMOGLOBIN 30.5 pg (27.0-33.0); MEAN CORPUSCULAR HGB CONC 31.6 g/dl (32.0-36.5); MEAN CORPUSCULAR VOLUME 96.6 fl (80.0-96.0); MONO # 0.8 10^3/uL (0.0-0.8); MONO % 8.1 % (2.0-8.0); NEUTROPHILS # 8.1 10^3/uL (1.5-8.5); NEUTROPHILS % 84.8 % (36.0-66.0); PLATELET COUNT, AUTOMATED 230 10^3/uL (150-450); RED BLOOD COUNT 2.98 10^6/uL (4.30-6.10); WHITE BLOOD COUNT 9.6 10^3/uL (4.0-10.0)
[2023-04-18 06:37] LABS: CALCIUM LEVEL 8.7 MG/DL (8.3-10.6); CREATININE FOR GFR 2.94 MG/DL (0.70-1.30); GLOMERULAR FILTRATION RATE 22.1 (>42); MAGNESIUM LEVEL 1.9 MG/DL (1.8-2.4); POTASSIUM SERUM 4.1 MMOL/L (3.5-5.1)
[2023-04-18] MEDS: NS 1,000 ML IV ONE (15:39)
[2023-04-18] MEDS: NALOXONE INJ 0.4MG/1ML VIAL IV STA ×2 (17:55→18:26)
[2023-04-18] MEDS: NALOXONE 2MG/2ML SYRINGE IV STA (18:34)
[2023-04-18] MEDS ORDERED: KETOROLAC 30 MG/ML 1ML VIAL IV SCH (19:00)
[2023-04-18] MEDS: KETOROLAC 30 MG/ML 1ML VIAL IV SCH (21:41)
[2023-04-18] MEDS: MIDODRINE 5 MG TAB PO ONE (23:35)
[2023-04-19] VITALS (30 sets, daily range): BP systolic 78–104; BP diastolic 44–60; TEMP 97.1–97.8; O2SAT 86–100
[2023-04-19] MEDS: HYDROCORTISONE 100MG/2ML VIAL IV ONE (00:03)
[2023-04-19] MEDS: NS 250 ML IV ONE ×2 (02:32→04:06)
[2023-04-19 04:48] LABS: BASO % 0.1 % (0.0-1.0); EOS % 0.1 % (0.0-3.0); HEMATOCRIT 32.4 % (42.0-52.0); HEMOGLOBIN 9.9 g/dl (13.5-17.5); LYMPH # 0.2 10^3/uL (1.5-5.0); LYMPH % 1.2 % (24.0-44.0); MEAN CORPUSCULAR HEMOGLOBIN 30.4 pg (27.0-33.0); MEAN CORPUSCULAR HGB CONC 30.6 g/dl (32.0-36.5); MEAN CORPUSCULAR VOLUME 99.4 fl (80.0-96.0); MONO # 0.7 10^3/uL (0.0-0.8); MONO % 4.1 % (2.0-8.0); NEUTROPHILS % 93.6 % (36.0-66.0); RED BLOOD COUNT 3.26 10^6/uL (4.30-6.10)
[2023-04-19 05:01] LABS: PLATELET COUNT, AUTOMATED 269 10^3/uL (150-450)
[2023-04-19 05:09] LABS: CALCIUM LEVEL 9.2 MG/DL (8.3-10.6); CREATININE FOR GFR 3.89 MG/DL (0.70-1.30); MAGNESIUM LEVEL 3.3 MG/DL (1.8-2.4); POTASSIUM SERUM 4.7 MMOL/L (3.5-5.1)
[2023-04-19] MEDS: LR 500 ML IV ONE (07:43)
[2023-04-19] MEDS: NALOXONE INJ 0.4MG/1ML VIAL IV STA (07:43)
[2023-04-19] MEDS: LR 1,000 ML IV ONE (12:30)
[2023-04-19] MEDS ORDERED: MORPHINE 2 MG/ML 1ML VIAL IV PRN (13:30)
[2023-04-19] MEDS ORDERED: HYOSCYAMINE SULFATE 0.125 MG SUBL TABLET PO PRN (13:30)
[2023-04-19] MEDS ORDERED: LORazepam 2 MG/ML 1ML VIAL IV PRN (13:30)
[2023-04-19] MEDS ORDERED: LORazepam 1 MG TAB PO PRN (13:30)
[2023-04-19] MEDS ORDERED: SCOPOLAMINE 1MG TRANSDERMAL PATCH TOP PRN (13:30)
[2023-04-19] MEDS ORDERED: ONDANSETRON 4MG 2ML VIAL IV PRN (13:30)
[2023-04-19] MEDS ORDERED: ATROPINE SULFATE 1% OPHTH SOLN 2ML BTL SL PRN (13:30)
[2023-04-19] MEDS ORDERED: FLEET ENEMA PR PRN (13:30)
[2023-04-19] MEDS ORDERED: MORPHINE 10MG/0.5ML ORAL CONCENTRATE SOLUTION U/D SL PRN (13:30)
[2023-04-20] MEDS ORDERED: HEPARIN 1,000UNITS/ML 10ML VIAL (FOR RADIOLOGY & DIALYSIS ONLY) IV PRN (06:00)
[2023-04-20] MEDS ORDERED: SODIUM CHLORIDE 0.9% 1000ML IV PRN (06:00)
== END 2023-04-20 21:49 | disposition expired | DRG 919 ==
LOC: M ED 15:16 → EDBD 15:16 → M ED INP 18:03 → M PCU 22:33 → M MS5PR 04-19 20:30
PROVIDERS: ADMIT Internal Medicine; ATTEND Internal Medicine
PROC: 5A1D70Z Performance of Urinary Filtration, Intermittent, Less than 6 Hours Per Day (ICD-10-PCS; 2023-04-09)
PROC: 0W9B30Z Drainage of Left Pleural Cavity with Drainage Device, Percutaneous Approach (ICD-10-PCS; principal; 2023-04-12)
PROC: 3E0L3GC Introduction of Other Therapeutic Substance into Pleural Cavity, Percutaneous Approach (ICD-10-PCS; 2023-04-19)
DX: J95.830 Postprocedural hemorrhage of a respiratory system organ or structure following a respiratory system procedure (principal); N18.6 End stage renal disease; J96.01 Acute respiratory failure with hypoxia; J15.69 Pneumonia due to other Gram-negative bacteria; G93.41 Metabolic encephalopathy; J90 Pleural effusion, not elsewhere classified; I13.2 Hypertensive heart and chronic kidney disease with heart failure and with stage 5 chronic kidney disease, or end stage renal disease; I48.19 Other persistent atrial fibrillation; I50.22 Chronic systolic (congestive) heart failure; J94.2 Hemothorax; I47.20 Ventricular tachycardia, unspecified; E46 Unspecified protein-calorie malnutrition; E87.1 Hypo-osmolality and hyponatremia; I16.9 Hypertensive crisis, unspecified; I27.20 Pulmonary hypertension, unspecified; Z66 Do not resuscitate; K59.00 Constipation, unspecified; G89.29 Other chronic pain; E03.9 Hypothyroidism, unspecified; I25.10 Atherosclerotic heart disease of native coronary artery without angina pectoris; E83.39 Other disorders of phosphorus metabolism; E78.5 Hyperlipidemia, unspecified; D63.1 Anemia in chronic kidney disease; D69.6 Thrombocytopenia, unspecified; E11.22 Type 2 diabetes mellitus with diabetic chronic kidney disease; N40.1 Benign prostatic hyperplasia with lower urinary tract symptoms; M10.9 Gout, unspecified; K21.9 Gastro-esophageal reflux disease without esophagitis; F41.9 Anxiety disorder, unspecified; M25.552 Pain in left hip; E83.42 Hypomagnesemia; M25.512 Pain in left shoulder; R13.10 Dysphagia, unspecified; I49.5 Sick sinus syndrome; N30.90 Cystitis, unspecified without hematuria; R57.1 Hypovolemic shock; E87.5 Hyperkalemia; R54 Age-related physical debility; R57.0 Cardiogenic shock; Z95.0 Presence of cardiac pacemaker; Z95.5 Presence of coronary angioplasty implant and graft; Z90.5 Acquired absence of kidney; Z86.73 Personal history of transient ischemic attack (TIA), and cerebral infarction without residual deficits; Z85.528 Personal history of other malignant neoplasm of kidney; Z99.2 Dependence on renal dialysis; Z79.01 Long term (current) use of anticoagulants; Z79.82 Long term (current) use of aspirin; Z79.890 Hormone replacement therapy; Z79.899 Other long term (current) drug therapy; Z88.0 Allergy status to penicillin; Z88.1 Allergy status to other antibiotic agents; Z88.2 Allergy status to sulfonamides; Z88.8 Allergy status to other drugs, medicaments and biological substances; Z20.822 Contact with and (suspected) exposure to COVID-19

== ENCOUNTER → 2023-04-08 | Outpatient (REF) | payer MEDICARE ==
[2023-04-08 11:58] LABS: BASO % 0.6 % (0.0-1.0); EOS % 0.8 % (0.0-3.0); HEMATOCRIT 29.2 % (42.0-52.0); LYMPH # 0.4 10^3/uL (1.5-5.0); LYMPH % 8.6 % (24.0-44.0); MEAN CORPUSCULAR HEMOGLOBIN 30.6 pg (27.0-33.0); MEAN CORPUSCULAR HGB CONC 30.8 g/dl (32.0-36.5); MEAN CORPUSCULAR VOLUME 99.3 fl (80.0-96.0); MONO # 0.5 10^3/uL (0.0-0.8); MONO % 10.2 % (2.0-8.0); NEUTROPHILS % 78.2 % (36.0-66.0); PLATELET COUNT, AUTOMATED 201 10^3/uL (150-450); RED BLOOD COUNT 2.94 10^6/uL (4.30-6.10); WHITE BLOOD COUNT 5.1 10^3/uL (4.0-10.0)
[2023-04-08 12:27] LABS: ALBUMIN 2.2 G/DL (3.2-5.2); BILIRUBIN,TOTAL 0.3 MG/DL (0.3-1.2); CALCIUM LEVEL 8.5 MG/DL (8.3-10.6); CREATININE FOR GFR 6.07 MG/DL (0.70-1.30); GLOMERULAR FILTRATION RATE 9.6 (>42); POTASSIUM SERUM 4.4 MMOL/L (3.5-5.1); TOTAL PROTEIN 5.1 G/DL (5.7-8.2)
== END ==
LOC: SKLAB4 10:29
PROVIDERS: ATTEND Nurse Practitioner Family
DX: N18.6 End stage renal disease (principal); J90 Pleural effusion, not elsewhere classified; I51.7 Cardiomegaly; I27.20 Pulmonary hypertension, unspecified; Z95.1 Presence of aortocoronary bypass graft